=== PATIENT | male | born 1970 | race Caucasian/White ===

== ENCOUNTER → 2016-11-30 | Outpatient (REF) | payer MEDICARE, MEDICAID ==
[~2016-11-30] MED LIST: /FENO14TA PO; /FENO48TA PO; ABIL15TA PO; ABIL5TAB PO; BENZ2TA PO; BENZ5TA PO; DEPA250T32 PO; GLIP5TAB2 PO; GLYB5TAB5 PO; LEVEINJ SC; METF1000 PO; PROZ20CA11 PO
[2016-11-30 21:29] LABS: ALBUMIN 4.1 GM/DL (3.2-5.2); ALBUMIN/GLOBULIN RATIO 1.21 (1.00-1.93); ALKALINE PHOSPHATASE 102 U/L (45-117); ALT/SGPT 39 U/L (12-78); ANION GAP 10 MEQ/L (8-16); AST/SGOT 15 U/L (15-37); BILIRUBIN,TOTAL 0.9 MG/DL (0.2-1.0); BLOOD UREA NITROGEN 15 MG/DL (7-18); CARBON DIOXIDE LEVEL 28 MEQ/L (21-32); CHLORIDE LEVEL 101 MEQ/L (98-107); GLOMERULAR FILTRATION RATE > 60.0 (>60); GLUCOSE, FASTING 356 MG/DL (70-105); POTASSIUM SERUM 3.8 MEQ/L (3.5-5.1); SODIUM LEVEL 139 MEQ/L (136-145); TOTAL PROTEIN 7.5 GM/DL (6.4-8.2)
== END ==
LOC: M SFHCLERA 15:42
PROVIDERS: ATTEND Physician Assistant
DX: E11.9 Type 2 diabetes mellitus without complications (principal); Z13.220 Encounter for screening for lipoid disorders
CPT/HCPCS: 80053; 83036; G0463

== ENCOUNTER → 2017-01-05 | Outpatient (CLI) | payer MEDICARE, MEDICAID | LOC: M LRY 10:44 | PROVIDERS: ATTEND Physician Assistant | DX: M54.2 Cervicalgia (principal); Z53.8 Procedure and treatment not carried out for other reasons ==

== ENCOUNTER → 2017-01-05 | Outpatient (REF) | payer MEDICARE, MEDICAID | LOC: M SFHCLERA 11:12 | PROVIDERS: ATTEND Physician Assistant | DX: E11.9 Type 2 diabetes mellitus without complications (principal); Z13.220 Encounter for screening for lipoid disorders ==

== ENCOUNTER → 2017-01-25 | Outpatient (CLI) | payer MEDICARE, MEDICAID ==
[2017-01-25 10:29] LABS: ALBUMIN/GLOBULIN RATIO 1.18 (1.00-1.93); ALKALINE PHOSPHATASE 79 U/L (45-117); ALT/SGPT 32 U/L (12-78); ANION GAP 10 MEQ/L (8-16); AST/SGOT 17 U/L (15-37); BILIRUBIN,TOTAL 0.9 MG/DL (0.2-1.0); BLOOD UREA NITROGEN 16 MG/DL (7-18); CALCIUM LEVEL 8.5 MG/DL (8.5-10.1); CARBON DIOXIDE LEVEL 27 MEQ/L (21-32); CHLORIDE LEVEL 103 MEQ/L (98-107); CHOLESTEROL LEVEL 114 MG/DL (<200); CREATININE FOR GFR 1.07 MG/DL (0.70-1.30); GLOMERULAR FILTRATION RATE > 60.0 (>60); GLUCOSE, FASTING 269 MG/DL (70-105); SODIUM LEVEL 140 MEQ/L (136-145); TOTAL PROTEIN 7.4 GM/DL (6.4-8.2); TRIGLYCERIDES LEVEL 274 MG/DL (<150)
--- NOTE | 2017-01-25 10:35 | REP ---
CERVICAL SPINE, EIGHT VIEWS: HISTORY: Neck pain. There is no acute fracture or subluxation. The C5-6 intervertebral disc is decreased in height consistent with disc degeneration. Osteophytes are present on C2-6. There is narrowing of the C3 and 4 neural foramina secondary to uncinate process hypertrophy. IMPRESSION: Degenerative change as described above. Signed by Reginald Jean MD 01/25/2017 10:45 A
== END ==
LOC: M LAB 09:24
PROVIDERS: ATTEND Physician Assistant
DX: M50.90 Cervical disc disorder, unspecified, unspecified cervical region (principal); Z13.220 Encounter for screening for lipoid disorders; E11.9 Type 2 diabetes mellitus without complications

== ENCOUNTER → 2017-03-28 | Outpatient (REF) | payer MEDICARE, MEDICAID | LOC: M SFHCLERA 08:20 | PROVIDERS: ATTEND Physician Assistant | DX: E11.9 Type 2 diabetes mellitus without complications (principal) | CPT/HCPCS: 83036; G0463 ==

== ENCOUNTER → 2017-06-29 | Outpatient (REF) | payer MEDICARE, MEDICAID ==
[~2017-06-29] MED LIST changes: +FARX1TAB3; +FLON1SPR; +HUMA100I5; +LATU80TA; +LISI-542; +PANT40TA2; +ZYRT10TA2 PO
[2017-06-29 12:03] LABS: ALBUMIN/GLOBULIN RATIO 1.08 (1.00-1.93); ALKALINE PHOSPHATASE 66 U/L (45-117); ALT/SGPT 35 U/L (12-78); ANION GAP 10 MEQ/L (8-16); AST/SGOT 17 U/L (15-37); BILIRUBIN,TOTAL 0.9 MG/DL (0.2-1.0); BLOOD UREA NITROGEN 19 MG/DL (7-18); CALCIUM LEVEL 8.7 MG/DL (8.5-10.1); CARBON DIOXIDE LEVEL 27 MEQ/L (21-32); CHLORIDE LEVEL 106 MEQ/L (98-107); CREATININE FOR GFR 1.01 MG/DL (0.70-1.30); GLOMERULAR FILTRATION RATE > 60.0 (>60); GLUCOSE, FASTING 295 MG/DL (70-105); POTASSIUM SERUM 4.7 MEQ/L (3.5-5.1); SODIUM LEVEL 143 MEQ/L (136-145); TOTAL PROTEIN 7.7 GM/DL (6.4-8.2)
== END ==
LOC: M SFHCLERA 08:57
PROVIDERS: ATTEND Physician Assistant
DX: E11.9 Type 2 diabetes mellitus without complications (principal)
CPT/HCPCS: 80053; 83036; G0463

== ENCOUNTER 2017-09-09 18:47 | Emergency (ER) | payer MEDICARE, MEDICAID ==
[~2017-09-09] VITALS: Ht 172.7 cm; Wt 77.3 kg
[~2017-09-09 18:47] MED LIST changes: -FARX1TAB3; -FLON1SPR; -HUMA100I5; -LATU80TA; -LISI-542; -PANT40TA2; -ZYRT10TA2 PO
[2017-09-09] MEDS ORDERED: PANT40TA2 (19:22)
[2017-09-09] MEDS ORDERED: HUMA100I5 (19:22)
[2017-09-09] MEDS ORDERED: LATU80TA (19:22)
[2017-09-09] MEDS ORDERED: LISI-542 (19:22)
[2017-09-09] MEDS ORDERED: FARX1TAB3 (19:22)
[2017-09-09] MEDS ORDERED: ZYRT10TA2 PO (20:18)
[2017-09-09] MEDS ORDERED: FLON1SPR (20:18)
[2017-09-09 20:47] VITALS: BP 132/84
== END 2017-09-09 20:53 | disposition home or self-care (01) ==
LOC: M ED 18:47
DX: J30.9 Allergic rhinitis, unspecified (principal); E11.9 Type 2 diabetes mellitus without complications; Z79.899 Other long term (current) drug therapy; Z79.4 Long term (current) use of insulin

== ENCOUNTER → 2017-11-28 | Outpatient (CLI) | payer MEDICARE, MEDICAID ==
[2017-11-28 07:43] LABS: HEMATOCRIT 52.3 % (42.0-52.0); HEMOGLOBIN 18.7 g/dl (14.0-18.0); MEAN CORPUSCULAR HEMOGLOBIN 32.1 pg (27.0-33.0); MEAN CORPUSCULAR HGB CONC 35.8 g/dl (32.0-36.5); MEAN CORPUSCULAR VOLUME 89.7 fl (80.0-96.0); PLATELET COUNT, AUTOMATED 184 10^3/uL (150-450); RED BLOOD COUNT 5.83 10^6/uL (4.30-6.10); RED CELL DISTRIBUTION WIDTH 12.3 % (11.5-14.5); WHITE BLOOD COUNT 9.6 10^3/uL (4.0-10.0)
[2017-11-28 07:52] LABS: ALBUMIN 4.2 GM/DL (3.2-5.2); ALBUMIN/GLOBULIN RATIO 1.14 (1.00-1.93); ALKALINE PHOSPHATASE 95 U/L (45-117); ALT/SGPT 29 U/L (12-78); ANION GAP 10 MEQ/L (8-16); AST/SGOT 14 U/L (7-37); BILIRUBIN,TOTAL 0.7 MG/DL (0.2-1.0); BLOOD UREA NITROGEN 16 MG/DL (7-18); CALCIUM LEVEL 9.1 MG/DL (8.5-10.1); CARBON DIOXIDE LEVEL 26 MEQ/L (21-32); CHLORIDE LEVEL 104 MEQ/L (98-107); CHOLESTEROL LEVEL 134 MG/DL (<200); CHOLESTEROL RISK RATIO 2.851 (<5); CREATININE FOR GFR 1.06 MG/DL (0.70-1.30); GLOMERULAR FILTRATION RATE > 60.0 (>60); GLUCOSE, FASTING 335 MG/DL (70-105); HDL CHOLESTEROL 47 MG/DL (>40); NON-HDL-C 87 MG/DL; POTASSIUM SERUM 4.4 MEQ/L (3.5-5.1); SODIUM LEVEL 140 MEQ/L (136-145); TOTAL PROTEIN 7.9 GM/DL (6.4-8.2); TRIGLYCERIDES LEVEL 345 MG/DL (<150)
[2017-11-28 07:59] LABS: CREATININE, URINE 40.3 MG/DL
[2017-11-28 08:38] LABS: ESTIMATED AVERAGE GLUCOSE 260 MG/DL (60-110); HEMOGLOBIN A1c 10.7 %
== END ==
LOC: M LAB 06:55
DX: I10 Essential (primary) hypertension (principal); E11.9 Type 2 diabetes mellitus without complications; E78.2 Mixed hyperlipidemia
CPT/HCPCS: 80053

== ENCOUNTER 2018-01-13 08:43 | Emergency (ER) | payer MEDICARE, MEDICAID | END 2018-01-13 09:48 | disposition home or self-care (01) | LOC: M ED 08:43 | DX: J02.0 Streptococcal pharyngitis (principal); Z79.4 Long term (current) use of insulin; Z79.899 Other long term (current) drug therapy | CPT/HCPCS: 87880 ==

== ENCOUNTER → 2018-01-23 | Outpatient (CLI) | payer MEDICARE, MEDICAID ==
[2018-01-23 08:40] LABS: PSA SCREENING 7.58 NG/ML (< 4.0)
[2018-01-23 09:48] LABS: TOTAL 25(OH) VITAMIN D 12.8 NG/ML (30.0-100.0)
[2018-01-23 10:27] LABS: HEPATITIS C VIRUS ABY INDEX 0.2 INDEX (<0.8)
[2018-01-23 10:28] LABS: HIV 1&2 SCREEN CENTAUR NEGATIVE (NEGATIVE)
== END ==
LOC: M LAB 07:19
DX: Z00.00 Encounter for general adult medical examination without abnormal findings (principal)
CPT/HCPCS: 84443

== ENCOUNTER → 2018-03-11 | Outpatient (REF) | payer MEDICARE, MEDICAID ==
[2018-03-11 13:04] LABS: CREATININE, URINE 60.3 MG/DL; MALB URINE SIEMENS 74.3 MG/L; MAU/CREAT RATIO 123.2 MCG/MG (0.0-30.0)
[2018-03-11 15:22] LABS: ESTIMATED AVERAGE GLUCOSE 249 MG/DL (60-110); HEMOGLOBIN A1c 10.3 %
== END ==
LOC: M LAB REF 12:03
DX: E11.9 Type 2 diabetes mellitus without complications (principal)
CPT/HCPCS: 83036

== ENCOUNTER → 2018-04-09 | Outpatient (REF) | payer MEDICARE, MEDICAID ==
[2018-04-09 18:32] LABS: ANION GAP 6 MEQ/L (8-16); BLOOD UREA NITROGEN 17 MG/DL (7-18); CALCIUM LEVEL 8.4 MG/DL (8.5-10.1); CARBON DIOXIDE LEVEL 28 MEQ/L (21-32); CHLORIDE LEVEL 109 MEQ/L (98-107); CREATININE FOR GFR 0.85 MG/DL (0.70-1.30); GLOMERULAR FILTRATION RATE > 60.0 (>60); GLUCOSE, FASTING 170 MG/DL (70-100); SODIUM LEVEL 143 MEQ/L (136-145)
== END ==
LOC: M LAB REF 17:21
DX: E11.9 Type 2 diabetes mellitus without complications (principal)
CPT/HCPCS: 80048

== ENCOUNTER 2018-09-18 13:07 | Day surgery (SDC) | payer MEDICARE, MEDICAID ==
[2018-09-18] MEDS ORDERED: LIDOCAINE 2% INJ 100 MG/5 ML SDV (FOR ANES.) As Ordered (13:43)
[2018-09-18] MEDS ORDERED: PROPOFOL 200 MG/20 ML VIAL As Ordered (13:45)
[2018-09-18] MEDS ORDERED: fentaNYL 100 MCG/2 ML INJECTION (J3010) As Ordered (14:31)
[2018-09-18 14:33] LABS: BEDSIDE GLUCOSE 248 MG/DL (70-105)
[2018-09-18] MEDS ORDERED: HumaLOG INSULIN (NovoLOG) PER UNIT As Ordered (14:37)
[2018-09-18] MEDS: NS 1,000 ML IV (14:38)
[2018-09-18] MEDS ORDERED: HumaLOG INSULIN (NovoLOG) PER UNIT SC (15:00)
== END 2018-09-18 15:36 | disposition home or self-care (01) ==
LOC: M OPP 13:07
DX: R13.10 Dysphagia, unspecified (principal); E10.8 Type 1 diabetes mellitus with unspecified complications; F41.9 Anxiety disorder, unspecified; F32.9 Major depressive disorder, single episode, unspecified; N40.0 Benign prostatic hyperplasia without lower urinary tract symptoms; Z79.84 Long term (current) use of oral hypoglycemic drugs; Z90.49 Acquired absence of other specified parts of digestive tract
CPT/HCPCS: 43249

== ENCOUNTER 2018-11-04 19:03 | Emergency (ER) | payer MEDICARE, MEDICAID ==
[2018-11-04] MEDS: IBUPROFEN 600 MG TAB PO (22:24)
[2018-11-04] MEDS: AUGMENTIN 875 MG TAB PO (22:24)
== END 2018-11-04 22:29 | disposition home or self-care (01) ==
LOC: M ED 19:03
DX: K04.7 Periapical abscess without sinus (principal); E11.9 Type 2 diabetes mellitus without complications; I10 Essential (primary) hypertension; E78.9 Disorder of lipoprotein metabolism, unspecified; Z79.899 Other long term (current) drug therapy; Z79.82 Long term (current) use of aspirin; Z79.4 Long term (current) use of insulin; F17.210 Nicotine dependence, cigarettes, uncomplicated
CPT/HCPCS: 99283

== ENCOUNTER 2019-01-14 03:35 | Emergency (ER) | payer MEDICARE, MEDICAID ==
[~2019-01-14] VITALS: Ht 172.7 cm; Wt 77.3 kg
[~2019-01-14 03:35] MED LIST changes: +ASPI81TA85 PO; +AUGM875T28 PO; +FARX1TAB3; +FENO145T13 PO; +FLON1SPR; +HUMA100I5 SQ; +IBUP-1022 PO; +LATU1TAB; +LATU80TA; +LATU80TA PO; +LIDO1SOL7 PO; +LISI-542 PO; +PANT40TA3; +PENI500T PO; +TAMS1CAP17 PO; +TOUJ1.2I SQ; +TOUJ300I2 SC; +ZYRT10CA5 PO
[2019-01-14 03:36] VITALS: BP 140/81
[2019-01-14] MEDS ORDERED: TAMSULOSIN 0.4 MG CAP PO ONE (04:15)
[2019-01-14] MEDS ORDERED: NS 1,000 ML IV ONE (04:15)
[2019-01-14] MEDS ORDERED: KETOROLAC 30 MG/ML VIAL (J1885) IV ONE (04:15)
[2019-01-14] MEDS ORDERED: ONDANSETRON 4MG/2ML VIAL (J2405) As Ordered ONE (04:22)
[2019-01-14 04:26] LABS: BASO % 0.4 % (0.0-1.0); EOS # 0.1 10^3/uL (0.0-0.50); EOS % 1.1 % (0.0-3.0); HEMATOCRIT 50.1 % (42.0-52.0); HEMOGLOBIN 17.7 g/dl (13.5-17.5); LYMPH # 1.7 10^3/uL (1.5-4.5); LYMPH % 20.4 % (24.0-44.0); MEAN CORPUSCULAR HEMOGLOBIN 31.3 pg (27.0-33.0); MEAN CORPUSCULAR HGB CONC 35.3 g/dl (32.0-36.5); MEAN CORPUSCULAR VOLUME 88.7 fl (80.0-96.0); MONO # 0.6 10^3/uL (0.0-0.8); MONO % 7.2 % (0.0-5.0); NEUTROPHILS # 5.9 10^3/uL (1.8-7.7); NEUTROPHILS % 70.3 % (36.0-66.0); PLATELET COUNT, AUTOMATED 204 10^3/uL (150-450); RED BLOOD COUNT 5.65 10^6/uL (4.30-6.10); WHITE BLOOD COUNT 8.3 10^3/uL (4.0-10.0)
[2019-01-14 04:28] LABS: APPEARANCE, URINE CLEAR (CLEAR); BACTERIA, URINE AUTO NEGATIVE (NEGATIVE); BILIRUBIN, URINE AUTO NEGATIVE (NEGATIVE); BLOOD, URINE BLOOD NEGATIVE (NEGATIVE); COLOR, URINE STRAW (YELLOW); GLUCOSE, URINE (UA) AUTO 3+ mg/dL (NEGATIVE); KETONE, URINE AUTO NEGATIVE (NEGATIVE); LEUKOCYTE ESTERASE, URINE AUTO NEGATIVE (NEGATIVE); NITRITE, URINE AUTO NEGATIVE (NEGATIVE); PROTEIN, URINE AUTO NEGATIVE (NEGATIVE); RBC, URINE AUTO 0 /HPF (0-3); SPECIFIC GRAVITY URINE AUTO 1.028 (1.002-1.035); SQUAMOUS EPITHELIAL CELL UR AU 0 /HPF (0-6); UROBILINOGEN, URINE AUTO 0.2 mg/dL (0.0-2.0); WBC, URINE AUTO 0 /HPF (0-3)
[2019-01-14] MEDS ORDERED: ONDANSETRON 4MG/2ML VIAL (J2405) IV ONE (04:30)
[2019-01-14 04:43] LABS: ALBUMIN 3.9 GM/DL (3.2-5.2); ALT/SGPT 25 U/L (12-78); BILIRUBIN,DIRECT 0.2 MG/DL (0.0-0.2); BILIRUBIN,TOTAL 0.7 MG/DL (0.2-1.0); BLOOD UREA NITROGEN 28 MG/DL (7-18); CALCIUM LEVEL 8.6 MG/DL (8.5-10.1); CARBON DIOXIDE LEVEL 26 MEQ/L (21-32); CHLORIDE LEVEL 104 MEQ/L (98-107); CREATININE FOR GFR 1.19 MG/DL (0.70-1.30); GLOMERULAR FILTRATION RATE > 60.0 (>60); GLUCOSE, FASTING 330 MG/DL (70-100); LIPASE 109 U/L (73-393); POTASSIUM SERUM 4.1 MEQ/L (3.5-5.1); SODIUM LEVEL 138 MEQ/L (136-145); TOTAL PROTEIN 7.4 GM/DL (6.4-8.2)
--- NOTE | 2019-01-14 04:51 | REPVR ---
EXAM: CT Abdomen and Pelvis Without Contrast EXAM DATE/TIME: 01/14/2019 4:10 AM CLINICAL HISTORY: 48 years old, male; Abdominal pain; Generalized; Additional info: Left colic TECHNIQUE: Axial computed tomography images of the abdomen and pelvis without contrast. All CT scans at this facility use at least one of these dose optimization techniques: automated exposure control; mA and/or kV adjustment per patient size (includes targeted exams where dose is matched to clinical indication); or iterative reconstruction. Coronal and sagittal reformatted images were created and reviewed. COMPARISON: CT ABD PELVIS W/O CONTRAST 06/27/2012 1:36 PM The report from this study was not available for review at the time of this interpretation. FINDINGS: Lower thorax: Unremarkable. ABDOMEN: Liver: Unremarkable. No liver lesion is seen. The contour of the liver is smooth. No hepatomegaly is noted. Gallbladder and bile ducts: There has been a cholecystectomy. There is no fluid collection in the gallbladder fossa. No dilation of the bile ducts is noted. Pancreas: The pancreas is atrophic and otherwise unremarkable. No ductal dilation is noted. Spleen: Unremarkable. No splenomegaly. Adrenals: Normal. No mass. Kidneys and ureters: The kidneys are unremarkable. No renal lesion is identified. No calculi are seen in the kidneys or ureters. There is no hydronephrosis or hydroureter. Stomach and bowel: There is colonic diverticulosis without evidence for diverticulitis. There is no evidence for a bowel obstruction, colitis, pneumatosis intestinalis, intussusception, volvulus, or perforated viscus. Appendix: Normal. There is no evidence for appendicitis. PELVIS: Bladder: The distended urinary bladder is normal in appearance. No stones or masses are seen in the bladder. The contour of the bladder is normal. Reproductive: The prostate gland is enlarged and contains radiation seeds and calcifications. ABDOMEN and PELVIS: Intraperitoneal space: Normal. No free air. No fluid collection. Bones/joints: The imaged bony structures are intact. There is no suspicious osteolytic or osteoblastic lesion. There are degenerative changes in the lower thoracic spine and lumbar spine. There are degenerative changes of the sacroiliac joints. Soft tissues: There is a small fat containing umbilical hernia. Vasculature: No abdominal aortic aneurysm. Lymph nodes: Normal. No enlarged lymph nodes. IMPRESSION: 1. No acute findings in the abdomen or pelvis. No stones in the kidneys, ureters, or urinary bladder. No hydronephrosis or hydroureter. 2. Colonic diverticulosis without evidence for diverticulitis. 3. Enlarged prostate gland. 4. Small fat containing umbilical hernia. Electronically signed by: Nba Golver On 01/14/2019 04:50:26 AM
== END 2019-01-14 05:34 | disposition home or self-care (01) ==
LOC: M ED 03:35
DX: R10.9 Unspecified abdominal pain (principal); R11.0 Nausea; I10 Essential (primary) hypertension; E11.9 Type 2 diabetes mellitus without complications; Z79.899 Other long term (current) drug therapy; Z79.4 Long term (current) use of insulin; Z79.82 Long term (current) use of aspirin
CPT/HCPCS: 74176; 80048; 80076; 81001; 83690; 85025; 87086; 96374; 96375; 99283; J1885; J2405

== ENCOUNTER → 2019-01-21 | Outpatient (REF) | payer MEDICARE, MEDICAID ==
[2019-01-25 00:07] LABS: C-PEPTIDE 4.1 ng/mL (1.1-4.4)
== END ==
LOC: M LABDRAW1 15:22
PROVIDERS: ATTEND Internal Medicine Endocrinology, Diabetes & Metabolism
DX: E11.65 Type 2 diabetes mellitus with hyperglycemia (principal)

== ENCOUNTER 2019-05-25 21:33 | Emergency (ER) | payer MEDICARE, MEDICAID ==
[~2019-05-25] VITALS: Ht 172.7 cm; Wt 72.7 kg
[~2019-05-25 21:33] MED LIST changes: -/FENO14TA PO; -/FENO48TA PO; -BENZ2TA PO; +BENZ2TAB33 PO; -LIDO1SOL7 PO; +LIDO1SOL8 PO; +TRIC145T19 PO; +TRIC1TAB PO
[2019-05-25 21:35] VITALS: BP 111/72
[2019-05-25] MEDS ORDERED: ACET-683 PO (21:40)
[2019-05-25] MEDS ORDERED: TOUJ1.2I (21:40)
[2019-05-25] MEDS ORDERED: HUMALOG (21:40)
[2019-05-25] MEDS ORDERED: KETOROLAC 60 MG/2 ML VIAL (J1885) IM ONE (22:15)
== END 2019-05-25 22:41 | disposition home or self-care (01) ==
LOC: M ED 21:33
DX: G56.10 Other lesions of median nerve, unspecified upper limb (principal); E11.9 Type 2 diabetes mellitus without complications; F43.10 Post-traumatic stress disorder, unspecified; Z79.4 Long term (current) use of insulin; Z79.899 Other long term (current) drug therapy
CPT/HCPCS: 96372; 99283; J1885

== ENCOUNTER 2019-10-26 12:13 | Emergency (ER) | payer MEDICARE, MEDICAID ==
[~2019-10-26] VITALS: Ht 172.7 cm; Wt 81.8 kg
[~2019-10-26 12:13] MED LIST changes: +ACET-683 PO; +HUMALOG; +TOUJ1.2I
[2019-10-26 12:14] VITALS: BP 133/89
[2019-10-26] MEDS ORDERED: AFRI0.058 (12:41)
[2019-10-26] MEDS ORDERED: FLON1SPR NARES (12:42)
== END 2019-10-26 12:50 | disposition home or self-care (01) ==
LOC: M ED 12:46
DX: J01.90 Acute sinusitis, unspecified (principal); E11.9 Type 2 diabetes mellitus without complications; Z79.4 Long term (current) use of insulin

== ENCOUNTER 2020-02-17 08:50 | Emergency (ER) | payer MEDICARE, MEDICAID ==
[~2020-02-17] VITALS: Ht 172.7 cm; Wt 78.9 kg
[~2020-02-17 08:50] MED LIST changes: +AFRI0.058; -FENO145T13 PO; +FENO145T7 PO; +FLON1SPR NARES; -LIDO1SOL8 PO; +LIDO2SOL17 PO
[2020-02-17] MEDS ORDERED: HUMA100I5 (08:59)
[2020-02-17] MEDS ORDERED: ATOR1TAB21 (08:59)
[2020-02-17] MEDS ORDERED: ONDANSETRON 4 MG ORAL DISINTEGRATING TAB (Q0162 PER 1MG) PO ONE (09:30)
[2020-02-17] MEDS ORDERED: KETOROLAC TROMETHAMINE 10 MG TAB PO ONE (09:30)
[2020-02-17 09:45] LABS: BASO % 0.3 % (0.0-1.0); EOS # 0.1 10^3/uL (0.0-0.5); EOS % 1.2 % (0.0-3.0); HEMATOCRIT 52.7 % (42.0-52.0); HEMOGLOBIN 18.5 g/dl (13.5-17.5); LYMPH # 1.7 10^3/uL (1.5-5.0); LYMPH % 18.9 % (24.0-44.0); MEAN CORPUSCULAR HEMOGLOBIN 31.4 pg (27.0-33.0); MEAN CORPUSCULAR HGB CONC 35.1 g/dl (32.0-36.5); MEAN CORPUSCULAR VOLUME 89.3 fl (80.0-96.0); MONO # 0.6 10^3/uL (0.0-0.8); MONO % 6.2 % (0.0-5.0); NEUTROPHILS # 6.6 10^3/uL (1.5-8.5); NEUTROPHILS % 72.8 % (36.0-66.0); PLATELET COUNT, AUTOMATED 174 10^3/uL (150-450); WHITE BLOOD COUNT 9.1 10^3/uL (4.0-10.0)
[2020-02-17 10:13] LABS: ALBUMIN 4.1 GM/DL (3.2-5.2); BILIRUBIN,DIRECT 0.2 MG/DL (0.0-0.2); BILIRUBIN,TOTAL 0.7 MG/DL (0.2-1.0)
[2020-02-17] MEDS ORDERED: CYCL5TAB PO (10:32)
[2020-02-17] MEDS ORDERED: NAPR-885 PO (10:32)
[2020-02-17 10:38] VITALS: BP 124/71
== END 2020-02-17 10:41 | disposition home or self-care (01) ==
LOC: M ED 08:50
DX: E11.9 Type 2 diabetes mellitus without complications (principal); L02.222 Furuncle of back [any part, except buttock and flank]; G89.29 Other chronic pain; M54.6 Pain in thoracic spine; E78.5 Hyperlipidemia, unspecified; F33.9 Major depressive disorder, recurrent, unspecified; F41.9 Anxiety disorder, unspecified; K21.9 Gastro-esophageal reflux disease without esophagitis; Z79.899 Other long term (current) drug therapy; Z79.4 Long term (current) use of insulin
CPT/HCPCS: 36415; 80047; 80076; 81001; 83690; 85025; 99284; Q0162

== ENCOUNTER → 2020-03-29 | Outpatient (CLI) | payer MEDICARE, MEDICAID ==
[~2020-03-29] MED LIST changes: +ATOR1TAB21; +CYCL5TAB PO; +HUMA100I5 SC; +LATU1TAB PO; +NAPR-885 PO; -TOUJ1.2I; +TOUJ1.2I SC
== END ==
LOC: M LABSMTC 11:12
PROVIDERS: ATTEND Anesthesiology
DX: Z01.818 Encounter for other preprocedural examination (principal); Z11.59 Encounter for screening for other viral diseases
CPT/HCPCS: C9803; U0002

== ENCOUNTER 2020-03-31 07:39 | Day surgery (SDC) | payer MEDICARE, MEDICAID ==
[~2020-03-31] VITALS: Ht 172.7 cm; Wt 79.8 kg
[~2020-03-31 07:39] MED LIST changes: +NS 1,000 ML IV ONE
[2020-03-31] MEDS ORDERED: LIDOCAINE 2% 100MG/5ML SDV (FOR ANES.) As Ordered ONE (08:55)
[2020-03-31] MEDS ORDERED: propofoL 200 MG/20 ML VIAL As Ordered ONE ×2 (08:55→09:31)
--- NOTE | 2020-03-31 09:17 | ROOR ---
Patient Name: Greg David Procedure Date: 03/31/2020 8:57 AM Date of : 1970 Age: 49 Room: [facility] Gender: Male Note Status: Finalized Procedure: Upper Endoscopy + Biopsies + Dilatation Indications: Dysphagia Providers: Casey Spaulding MD Referring MD: Glory BRANDT MD Requesting Provider: Medicines: Monitored Anesthesia Care Complications: No immediate complications. Procedure: Pre-Anesthesia Assessment: - The heart rate, respiratory rate, oxygen saturations, blood pressure, adequacy of pulmonary ventilation, and response to care were monitored throughout the procedure. The Endoscope was introduced through the mouth, and advanced to the second part of duodenum. The upper GI endoscopy was accomplished without difficulty. The patient tolerated the procedure well. Findings: The Z-line was regular and was found 40 cm from the incisors. Multiple biopsies were obtained with cold forceps for evaluation to rule out Cancino's Esophagus randomly at the gastroesophageal junction. A TTS dilator was passed through the scope. Dilation with a 15-16.5-18 mm balloon dilator was performed to 18 mm in the entire esophagus. No other significant abnormalities were identified in a careful examination of the stomach. The exam of the duodenum was otherwise normal. Impression: - Z-line regular, 40 cm from the incisors. - Multiple biopsies were obtained at the gastroesophageal junction. - Dilation performed in the entire esophagus. - The examination was otherwise normal. Recommendation: - Patient has a contact number available for emergencies. The signs and symptoms of potential delayed complications were discussed with the patient. Return to normal activities tomorrow. Written discharge instructions were provided to the patient. - High fiber diet. - Discharge patient to home. - Continue present medications. - Await pathology results. - Telephone GI clinic for pathology results in 1 week. - Return to referring physician. - Repeat upper endoscopy for surveillance based on pathology results. - Return to referring physician. - The findings and recommendations were discussed with the patient's family. Casey Spaulding MD Casey Spaulding MD 03/31/2020 9:16:39 AM Electronically signed by Casey Spaulding MD Number of Addenda: 0 Note Initiated On: 03/31/2020 8:57 AM Estimated Blood Loss: Estimated blood loss: none.
--- NOTE | 2020-03-31 09:33 | ROOR ---
Patient Name: Greg David Procedure Date: 03/31/2020 8:58 AM Date of : 1970 Age: 49 Room: [facility] Gender: Male Note Status: Finalized Procedure: Total Colonoscopy to Cecum Indications: Screening for colorectal malignant neoplasm Providers: Casey Spaulding MD Referring MD: Glory BRANDT MD Requesting Provider: Medicines: Monitored Anesthesia Care Complications: No immediate complications. Procedure: Pre-Anesthesia Assessment: - The heart rate, respiratory rate, oxygen saturations, blood pressure, adequacy of pulmonary ventilation, and response to care were monitored throughout the procedure. The Colonoscope was introduced through the anus and advanced to the cecum, identified by appendiceal orifice and ileocecal valve. The colonoscopy was performed without difficulty. The patient tolerated the procedure well. The quality of the bowel preparation was excellent. Findings: The perianal and digital rectal examinations were normal. Non-bleeding internal hemorrhoids were found during retroflexion. The hemorrhoids were small and Grade I (internal hemorrhoids that do not prolapse). No other significant abnormalities were identified in a careful examination of the remainder of the colon. The exam was otherwise without abnormality on direct and retroflexion views. Impression: - Non-bleeding internal hemorrhoids. - The examination was otherwise normal on direct and retroflexion views. - No specimens collected. - The exam was otherwise normal to the cecum. Recommendation: - Patient has a contact number available for emergencies. The signs and symptoms of potential delayed complications were discussed with the patient. Return to normal activities tomorrow. Written discharge instructions were provided to the patient. - High fiber diet. - Discharge patient to home. - Continue present medications. - Repeat colonoscopy in 10 years for screening purposes. - Return to referring physician. - The findings and recommendations were discussed with the patient's family. Casey Spaulding MD Casey Spaulding MD 03/31/2020 9:33:13 AM Electronically signed by Casey Spaulding MD Number of Addenda: 0 Note Initiated On: 03/31/2020 8:58 AM Estimated Blood Loss: Estimated blood loss: none.
[2020-03-31 10:10] VITALS: BP 118/69
== END 2020-03-31 10:10 | disposition home or self-care (01) ==
LOC: M OPP 07:39
PROVIDERS: ATTEND Internal Medicine Gastroenterology
DX: Z12.11 Encounter for screening for malignant neoplasm of colon (principal); K64.0 First degree hemorrhoids; R13.10 Dysphagia, unspecified; E11.9 Type 2 diabetes mellitus without complications; Z79.4 Long term (current) use of insulin; Z79.82 Long term (current) use of aspirin; Z79.899 Other long term (current) drug therapy; Z87.438 Personal history of other diseases of male genital organs; Z12.5 Encounter for screening for malignant neoplasm of prostate
CPT/HCPCS: 43249; 88305; G0102

== ENCOUNTER 2020-09-27 23:05 | Emergency (ER) | payer MEDICARE, MEDICAID ==
[~2020-09-27] VITALS: Ht 172.7 cm; Wt 72.7 kg
[~2020-09-27 23:05] MED LIST changes: -ASPI81TA85 PO; +ASPI81TA86 PO; -NS 1,000 ML IV ONE; +PANT40TA29; -PANT40TA3
[2020-09-27] MEDS ORDERED: ATOR1TAB21 (23:16)
[2020-09-28 00:21] LABS: BASO % 0.3 % (0.0-1.0); EOS # 0.1 10^3/uL (0.0-0.5); EOS % 0.9 % (0.0-3.0); HEMATOCRIT 48.7 % (42.0-52.0); HEMOGLOBIN 17.5 g/dl (13.5-17.5); LYMPH # 2.1 10^3/uL (1.5-5.0); LYMPH % 18.4 % (24.0-44.0); MEAN CORPUSCULAR HEMOGLOBIN 31.7 pg (27.0-33.0); MEAN CORPUSCULAR HGB CONC 35.9 g/dl (32.0-36.5); MEAN CORPUSCULAR VOLUME 88.2 fl (80.0-96.0); MONO # 0.7 10^3/uL (0.0-0.8); MONO % 5.9 % (0.0-5.0); NEUTROPHILS # 8.5 10^3/uL (1.5-8.5); NEUTROPHILS % 73.5 % (36.0-66.0); PLATELET COUNT, AUTOMATED 181 10^3/uL (150-450); RED BLOOD COUNT 5.52 10^6/uL (4.30-6.10); WHITE BLOOD COUNT 11.6 10^3/uL (4.0-10.0)
[2020-09-28 00:46] LABS: ALBUMIN 3.8 GM/DL (3.2-5.2); ALT/SGPT 31 U/L (12-78); BILIRUBIN,DIRECT 0.2 MG/DL (0.0-0.2); BILIRUBIN,TOTAL 0.7 MG/DL (0.2-1.0); BLOOD UREA NITROGEN 18 MG/DL (7-18); CARBON DIOXIDE LEVEL 24 MEQ/L (21-32); CHLORIDE LEVEL 104 MEQ/L (98-107); CK-MB VALUE MASS 5.9 NG/ML (<3.6); CPK CREATINE PHOSPHOKINASE 132 U/L (39-308); CREATININE FOR GFR 1.01 MG/DL (0.70-1.30); GLOMERULAR FILTRATION RATE > 60.0 (>56); GLUCOSE, FASTING 287 MG/DL (70-100); LIPASE 196 U/L (73-393); MB/CK RELATIVE INDEX 4.47 (< OR =4); POTASSIUM SERUM 3.5 MEQ/L (3.5-5.1); SODIUM LEVEL 135 MEQ/L (136-145); TOTAL PROTEIN 7.9 GM/DL (6.4-8.2); TROPONIN I < 0.02 NG/ML (< 0.10)
[2020-09-28] MEDS ORDERED: ASPIRIN 81 MG CHEW TABLET PO ONE (01:15)
[2020-09-28] MEDS ORDERED: NS 1,000 ML IV ONE (01:15)
[2020-09-28 01:33] LABS: INR 0.96
[2020-09-28 01:34] LABS: PARTIAL THROMBOPLASTIN TIME 26.8 SECONDS (24.2-38.5)
--- NOTE | 2020-09-28 02:37 | REPVR ---
PROCEDURE INFORMATION: Exam: XR Chest, 2 Views Exam date and time: 09/28/20 (1:38am) Age: 49 years old Clinical indication: Chest pain, chest tightness TECHNIQUE: Imaging protocol: XR of the chest Views: 2 views COMPARISON: No relevant prior studies available FINDINGS: Lungs: Unremarkable. No consolidation. Pleural space: Unremarkable. No pleural effusions. No pneumothorax. Heart/Mediastinum: Unremarkable. No cardiomegaly. Bones/joints: Unremarkable. IMPRESSION: No acute findings. Clear lung sandoval. Electronically signed by: Rhoda Mcdonnell On 09/28/2020 02:37:31 AM
[2020-09-28 03:25] LABS: HEMOGLOBIN A1c 11.4 %
[2020-09-28 03:28] LABS: ACETONE/KETONE 8.28 MG/DL (<2.81); FREE T4 1.16 NG/DL (0.76-1.46)
[2020-09-28 04:03] LABS: CK-MB VALUE MASS 4.9 NG/ML (<3.6); CPK CREATINE PHOSPHOKINASE 97 U/L (39-308); MB/CK RELATIVE INDEX 5.05 (< OR =4); TROPONIN I < 0.02 NG/ML (< 0.10)
[2020-09-28 04:15] VITALS: BP 122/77
[2020-09-28] MEDS ORDERED: JANU25TA PO (04:16)
--- NOTE | 2020-09-28 09:01 | ECGEPIP ---
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
--- NOTE | 2020-09-28 14:27 | ECGEPIP ---
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
== END 2020-09-28 04:43 | disposition home or self-care (01) ==
LOC: M ED 23:05
DX: R07.89 Other chest pain (principal); R11.2 Nausea with vomiting, unspecified; E11.9 Type 2 diabetes mellitus without complications; E78.5 Hyperlipidemia, unspecified; K21.9 Gastro-esophageal reflux disease without esophagitis; F31.9 Bipolar disorder, unspecified; F43.10 Post-traumatic stress disorder, unspecified; Z79.899 Other long term (current) drug therapy; Z79.82 Long term (current) use of aspirin; Z79.4 Long term (current) use of insulin

== ENCOUNTER 2021-01-14 20:03 | Emergency (ER) | payer MEDICARE, MEDICAID ==
[~2021-01-14] VITALS: Ht 172.7 cm; Wt 72.7 kg
[~2021-01-14 20:03] MED LIST changes: +JANU25TA PO; -LISI-542 PO; +LISI-898 PO
--- OUTSIDE RECORDS SUMMARY | 2021-01-14 20:08 | CCD ---
Author Author [facility] Organization [facility] Address Unknown Phone Unavailable Care Team Providers Care Branch Credit Counselor Name Role Phone Anna Spaulding MD Unavailable Unavailable Anna Spaulding MD Unavailable Unavailable Anna Spaulding MD Unavailable Unavailable Anna Spaulding MD Unavailable Unavailable Anna Spaulding MD Unavailable Unavailable Anna Spaulding MD Unavailable Unavailable Anna Spaulding MD Unavailable Unavailable Anna Spaulding MD Unavailable Unavailable Anna Spaulding MD Unavailable Unavailable Anna Spaulding MD Unavailable Unavailable Anna Spaulding MD Unavailable Unavailable Anna Spaulding MD Unavailable Unavailable Anna Spaulding MD Unavailable Unavailable Anna Spaulding MD Unavailable Unavailable Anna Spaulding MD Unavailable Unavailable Anna Spaulding MD Unavailable Unavailable Anna Spaulding MD Unavailable Unavailable Anna Spaulding MD Unavailable Unavailable Anna Spaulding MD Unavailable Unavailable Anna Spaulding MD Unavailable Unavailable Anna Spaulding MD Unavailable Unavailable Anna Spaulding MD Unavailable Unavailable Anna Spaulding MD Unavailable Unavailable Anna Spaulding MD Unavailable Unavailable Anna Spaulding MD Unavailable Unavailable Anna Spaulding MD Unavailable Unavailable Anna Spaulding MD Unavailable Unavailable Anna Spaulding MD Unavailable Unavailable Anna Spaulding MD Unavailable Unavailable Anna Spaulding MD Unavailable Unavailable Anna Spaulding MD Unavailable Unavailable Anna Spaulding MD Unavailable Unavailable Anna Spaulding MD Unavailable Unavailable Anna Spaulding MD Unavailable Unavailable Anna Spaulding MD Unavailable Unavailable Anna Spaulding MD Unavailable Unavailable Anna Spaulding MD Unavailable Unavailable Anna Spaulding MD Unavailable Unavailable Anna Spaulding MD Unavailable Unavailable Anna Spaulding MD Unavailable Unavailable Anna Spaulding MD Unavailable Unavailable Anna Spaulding MD Unavailable Unavailable Anna Spaulding MD Unavailable Unavailable Anna Spaulding MD Unavailable Unavailable Anna Spaulding MD Unavailable Unavailable Anna Spaulding MD Unavailable Unavailable Anna Spaulding MD Unavailable Unavailable Anna Spaulding MD Unavailable Unavailable Anna Spaulding MD Unavailable Unavailable Anna Spaulding MD Unavailable Unavailable Lo Abad MHC Unavailable Unavailable James Abadisten MHC Unavailable Unavailable Scordo, M Jana PA Unavailable Unavailable Scordo, M Jana PA Unavailable Unavailable Scordo, M Jana PA Unavailable Unavailable Scordo, M Jana PA Unavailable Unavailable Scordo, M Jana PA Unavailable Unavailable Scordo, M Jana PA Unavailable Unavailable Scordo, M Jana PA Unavailable Unavailable Scordo, M Jana PA Unavailable Unavailable Scordo, M Jana PA Unavailable Unavailable Scordo, M Jana PA Unavailable Unavailable Scordo, M Jana PA Unavailable Unavailable Scordo, M Jana PA Unavailable Unavailable Scordo, M Jana PA Unavailable Unavailable Scordo, M Jana PA Unavailable Unavailable Scordo, M Jana PA Unavailable Unavailable Scordo, M Jana PA Unavailable Unavailable Scordo, M Jana PA Unavailable Unavailable Scordo, M Jana PA Unavailable Unavailable Scordo, M Jana PA Unavailable Unavailable Scordo, M Jana PA Unavailable Unavailable Scordo, M Jana PA Unavailable Unavailable Scordo, M Jana PA Unavailable Unavailable Scordo, M Jana PA Unavailable Unavailable Scordo, M Jana PA Unavailable Unavailable Scordo, M Jana PA Unavailable Unavailable Scordo, M Jana PA Unavailable Unavailable Scordo, M Jana PA Unavailable Unavailable Scordo, M Jana PA Unavailable Unavailable Scordo, M Jana PA Unavailable Unavailable Scordo, M Jana PA Unavailable Unavailable Scordo, M Jana PA Unavailable Unavailable Scordo, M Jana PA Unavailable Unavailable Scordo, M Jana PA Unavailable Unavailable Scordo, M Jana PA Unavailable Unavailable Scordo, M Jana PA Unavailable Unavailable Scordo, M Jana PA Unavailable Unavailable Scordo, M Jana PA Unavailable Unavailable Scordo, M Jana PA Unavailable Unavailable Scordo, M Jana PA Unavailable Unavailable Scordo, M Jana PA Unavailable Unavailable Scordo, M Jana PA Unavailable Unavailable Scordo, M Jana PA Unavailable Unavailable Scordo, M Jana PA Unavailable Unavailable Bakari YAN MD Unavailable Unavailable Bakari YAN MD Unavailable Unavailable Bakari YAN MD Unavailable Unavailable Bakari YAN MD Unavailable Unavailable Bakari YAN MD Unavailable Unavailable Bakari YAN MD Unavailable Unavailable Bakari YAN MD Unavailable Unavailable Bakari YAN MD Unavailable Unavailable Bakari YAN MD Unavailable Unavailable Bakari YAN MD Unavailable Unavailable Bakari YAN MD Unavailable Unavailable Bakari YAN MD Unavailable Unavailable Bakari YAN MD Unavailable Unavailable Bakari YAN MD Unavailable Unavailable Bakari YAN MD Unavailable Unavailable Bakari YAN MD Unavailable Unavailable Bakari YAN MD Unavailable Unavailable Bakari YAN MD Unavailable Unavailable Bakari YAN MD Unavailable Unavailable Bakari YAN MD Unavailable Unavailable OBEN, T ELISE MD Unavailable Unavailable OBEN, T ELISE MD Unavailable Unavailable OBEN, T ELISE MD Unavailable Unavailable OBEN, T ELISE MD Unavailable Unavailable OBEN, T ELISE MD Unavailable Unavailable OBEN, T ELISE MD Unavailable Unavailable OBEN, T ELISE MD Unavailable Unavailable OBEN, T ELISE MD Unavailable Unavailable OBEN, T ELISE MD Unavailable Unavailable OBEN, T ELISE MD Unavailable Unavailable OBEN, T ELISE MD Unavailable Unavailable OBEN, T ELISE MD Unavailable Unavailable OBEN, T ELISE MD Unavailable Unavailable OBEN, T ELISE MD Unavailable Unavailable OBEN, T ELISE MD Unavailable Unavailable OBEN, T ELISE MD Unavailable Unavailable OBEN, T ELISE MD Unavailable Unavailable OBEN, T ELISE MD Unavailable Unavailable OBEN, T ELISE MD Unavailable Unavailable OBEN, T ELISE MD Unavailable Unavailable OBEN, T ELISE MD Unavailable Unavailable OBEN, T ELISE MD Unavailable Unavailable OBEN, T ELISE MD Unavailable Unavailable OBEN, T ELISE MD Unavailable Unavailable OBEN, T ELISE MD Unavailable Unavailable OBEN, T ELISE MD Unavailable Unavailable OBEN, T ELISE MD Unavailable Unavailable OBEN, T ELISE MD Unavailable Unavailable OBEN, T ELISE MD Unavailable Unavailable OBEN, T ELISE MD Unavailable Unavailable OBEN, T ELISE MD Unavailable Unavailable OBEN, T ELISE MD Unavailable Unavailable OBEN, T ELISE MD Unavailable Unavailable OBEN, T ELISE MD Unavailable Unavailable OBEN, T ELISE MD Unavailable Unavailable OBEN, T ELISE MD Unavailable Unavailable OBEN, T ELISE MD Unavailable Unavailable OBEN, T ELISE MD Unavailable Unavailable OBEN, T ELISE MD Unavailable Unavailable OBEN, T ELISE MD Unavailable Unavailable OBEN, T ELISE MD Unavailable Unavailable OBEN, T ELISE MD Unavailable Unavailable OBEN, T ELISE MD Unavailable Unavailable OBEN, T ELISE MD Unavailable Unavailable OBEN, T ELISE MD Unavailable Unavailable OBEN, T ELISE MD Unavailable Unavailable OBEN, T ELISE MD Unavailable Unavailable OBEN, T ELISE MD Unavailable Unavailable OBEN, T ELISE MD Unavailable Unavailable OBEN, T ELISE MD Unavailable Unavailable OBEN, T ELISE MD Unavailable Unavailable OBEN, T ELISE MD Unavailable Unavailable OBEN, T ELISE MD Unavailable Unavailable OBEN, T EILSE MD Unavailable Unavailable OBEN, T ELISE MD Unavailable Unavailable OBEN, T ELISE MD Unavailable Unavailable OBEN, T ELISE MD Unavailable Unavailable OBEN, T ELISE MD Unavailable Unavailable OBEN, T ELISE MD Unavailable Unavailable OBEN, T ELISE MD Unavailable Unavailable OBEN, T ELISE MD Unavailable Unavailable OBEN, T ELISE MD Unavailable Unavailable OBEN, T ELISE MD Unavailable Unavailable OBEN, T ELISE MD Unavailable Unavailable OBEN, T ELISE MD Unavailable Unavailable OBEN, T ELISE MD Unavailable Unavailable OBEN, T ELISE MD Unavailable Unavailable OBEN, T ELISE MD Unavailable Unavailable OBEN, T ELISE MD Unavailable Unavailable OBEN, T ELISE MD Unavailable Unavailable OBEN, T ELISE MD Unavailable Unavailable OBEN, T ELISE MD Unavailable Unavailable OBEN, T ELISE MD Unavailable Unavailable OBEN, T ELISE MD Unavailable Unavailable OBEN, T ELISE MD Unavailable Unavailable OBEN, T ELISE MD Unavailable Unavailable OBEN, T ELISE MD Unavailable Unavailable OBEN, T ELISE MD Unavailable Unavailable OBEN, T ELISE MD Unavailable Unavailable OBEN, T ELISE MD Unavailable Unavailable OBEN, T ELISE MD Unavailable Unavailable OBEN, T ELISE MD Unavailable Unavailable OBEN, T ELISE MD Unavailable Unavailable OBEN, T ELISE MD Unavailable Unavailable OBEN, T ELISE MD Unavailable Unavailable OBEN, T ELISE MD Unavailable Unavailable PARNES, Z SEME MD Unavailable Unavailable PARNES, Z ESME MD Unavailable Unavailable PARNES, Z ESME MD Unavailable Unavailable PARNES, Z ESME MD Unavailable Unavailable PARNES, Z ESME MD Unavailable Unavailable PARNES, Z ESME MD Unavailable Unavailable PARNES, Z ESME MD Unavailable Unavailable PARNES, Z ESME MD Unavailable Unavailable PARNES, Z ESME MD Unavailable Unavailable PARNES, Z ESME MD Unavailable Unavailable PARNES, Z ESME MD Unavailable Unavailable PARNES, Z ESME MD Unavailable Unavailable PARNES, Z ESME MD Unavailable Unavailable PARNES, Z ESME MD Unavailable Unavailable PARNES, Z ESME MD Unavailable Unavailable PARNES, Z ESME MD Unavailable Unavailable PARNES, Z ESME MD Unavailable Unavailable PARNES, Z ESME MD Unavailable Unavailable PARNES, Z ESME MD Unavailable Unavailable PARNES, Z ESME MD Unavailable Unavailable PARNES, Z ESME MD Unavailable Unavailable PARNES, Z ESME MD Unavailable Unavailable PARNES, Z ESME MD Unavailable Unavailable PARNES, Z ESME MD Unavailable Unavailable PARNES, Z ESME MD Unavailable Unavailable PARNES, Z ESME MD Unavailable Unavailable PARNES, Z ESME MD Unavailable Unavailable PARNES, Z ESME MD Unavailable Unavailable PARNES, Z ESME MD Unavailable Unavailable PARNES, Z ESME MD Unavailable Unavailable PARNES, Z ESME MD Unavailable Unavailable PARNES, Z ESME MD Unavailable Unavailable PARNES, Z ESME MD Unavailable Unavailable PARNES, Z ESME MD Unavailable Unavailable PARNES, Z ESME MD Unavailable Unavailable PARNES, Z ESME MD Unavailable Unavailable PARNES, Z ESME MD Unavailable Unavailable PARNES, Z ESME MD Unavailable Unavailable Kunnumpurath, F Glory MD Unavailable Unavailable Kunnumpurath, F Glory MD Unavailable Unavailable [place], F Glory MD Unavailable Unavailable [place], F Glory MD Unavailable Unavailable [place], F Glory MD Unavailable Unavailable [place], F Glory MD Unavailable Unavailable [place], F Glory MD Unavailable Unavailable [place], F Glory MD Unavailable Unavailable [place]ath, F Glory MD Unavailable Unavailable [place]ath, F Glory MD Unavailable Unavailable K[place]ath, F Glory MD Unavailable Unavailable Kunnumpurath, F Glory MD Unavailable Unavailable Kunn[place]ath, F Glory MD Unavailable Unavailable Kunn[place]ath, F Glory MD Unavailable Unavailable Kunn[place]urath, F Glory MD Unavailable Unavailable Kunnumpurath, F Glory MD Unavailable Unavailable Kunn[place]ath, F Glory MD Unavailable Unavailable Kunn[place]ath, F Glory MD Unavailable Unavailable Kunnumpurath, F Glory MD Unavailable Unavailable Kunnumpurath, F Golry MD Unavailable Unavailable Kunnumpurath, F Glory MD Unavailable Unavailable Kunnumpurath, F Glory MD Unavailable Unavailable Kunnump[place]ath, F Glory MD Unavailable Unavailable Kunnumpurath, F Glory MD Unavailable Unavailable Kunnumpurath, F Glory MD Unavailable Unavailable Kunnump[place]ath, F Glory MD Unavailable Unavailable Kunn[place]ath, F Glory MD Unavailable Unavailable Kunn[place]ath, F Glory MD Unavailable Unavailable Kunn[place]ath, F Glory MD Unavailable Unavailable Kunn[place]ath, F Glory MD Unavailable Unavailable Kunn[place]ath, F Glory MD Unavailable Unavailable Kunnumpurath, F Glory MD Unavailable Unavailable Kunn[place]urath, F Glory MD Unavailable Unavailable Kunnumpurath, F Glory MD Unavailable Unavailable Kunn[place]urath, F Glory MD Unavailable Unavailable Kunnumpurath, F Glory MD Unavailable Unavailable Kunn[place]ath, F Glory MD Unavailable Unavailable Kunnumpurath, F Glory MD Unavailable Unavailable Kunnumpurath, F Glory MD Unavailable Unavailable Kunnumpurath, F Glory MD Unavailable Unavailable Kunnumpurath, F Glory MD Unavailable Unavailable Kunn[place]urath, F Glory MD Unavailable Unavailable Kunn[place]urath, F Glory MD Unavailable Unavailable Kunn[place]ath, F Glory MD Unavailable Unavailable Kunn[place]urath, F Glory MD Unavailable Unavailable Kunn[place]urath, F Glory MD Unavailable Unavailable K[place]ath, F Glory MD Unavailable Unavailable [place]urath, F Glory MD Unavailable Unavailable Kunn[place]urath, F Glory MD Unavailable Unavailable Kunn[place]ath, F Glory MD Unavailable Unavailable K[place]ath, F Glory MD Unavailable Unavailable Kunn[place]urath, F Glory MD Unavailable Unavailable Kunn[place]ath, F Glory MD Unavailable Unavailable Kunn[place]urath, F Glory MD Unavailable Unavailable [place]ath, F Glory MD Unavailable Unavailable [place]ath, F Glory MD Unavailable Unavailable Kunn[place]urath, F Glory MD Unavailable Unavailable Kunnumpurath, F Glory MD Unavailable Unavailable Kunn[place]urath, F Glory MD Unavailable Unavailable [place]ath, F Glory MD Unavailable Unavailable [place]ath, F Glory MD Unavailable Unavailable K[place]ath, F Glory MD Unavailable Unavailable Kunn[place]urath, F Glory MD Unavailable Unavailable [place]urath, F Glory MD Unavailable Unavailable [place]ath, F Glory MD Unavailable Unavailable [place]urath, F Glory MD Unavailable Unavailable [place]urath, F Glory MD Unavailable Unavailable [place], F Glory MD Unavailable Unavailable [place]urath, F Glory MD Unavailable Unavailable [place], F Glory MD Unavailable Unavailable [place], F Glory MD Unavailable Unavailable [place], F Glory MD Unavailable Unavailable [place], F Glory MD Unavailable Unavailable [place], F Glory MD Unavailable Unavailable Kunnumpurath, F Glory MORALES Unavailable Unavailable Kunnumpurath, F Glory MORALES Unavailable Unavailable Kunnumpurath, F Glory MORALES Unavailable Unavailable Kunnumpurath, F Glory MORALES Unavailable Unavailable Juan Francisco, Sandra CONSUMER ADVOCATE CONSUMER ADVOCATE Unavailable Unavailable Juan Francisco, A Sandra CONSUMER ADVOCATE Unavailable Unavailable Juan Francisco, A Sandra CONSUMER ADVOCATE Unavailable Unavailable Juan Francisco, A Sandra CONSUMER ADVOCATE Unavailable Unavailable Juan Francisco, A Sandra CONSUMER ADVOCATE Unavailable Unavailable Juan Francisco, A Sandra CONSUMER ADVOCATE Unavailable Unavailable Juan Francisco, A Sandra CONSUMER ADVOCATE Unavailable Unavailable Juan Francisco, A Sandra CONSUMER ADVOCATE Unavailable Unavailable Juan Francisco, A Sandra CONSUMER ADVOCATE Unavailable Unavailable Juan Francisco, A Sandra CONSUMER ADVOCATE Unavailable Unavailable Juan Francisco, A Sandra CONSUMER ADVOCATE Unavailable Unavailable Juan Francisco, A Sandra CONSUMER ADVOCATE Unavailable Unavailable Juan Francisco, A Sandra CONSUMER ADVOCATE Unavailable Unavailable Juan Francisco, A Sandra CONSUMER ADVOCATE Unavailable Unavailable Juan Francisco, A Sandra CONSUMER ADVOCATE Unavailable Unavailable Juan Francisco, A Sandra CONSUMER ADVOCATE Unavailable Unavailable Juan Francisco, A Sandra CONSUMER ADVOCATE Unavailable Unavailable Juan Francisco, A Sandra CONSUMER ADVOCATE Unavailable Unavailable Juan Francisco, A Sandra CONSUMER ADVOCATE Unavailable Unavailable Juan Francisco, A Sandra CONSUMER ADVOCATE Unavailable Unavailable Juan Francisco, A Sandra CONSUMER ADVOCATE Unavailable Unavailable Juan Francisco, A Sandra CONSUMER ADVOCATE Unavailable Unavailable Juan Francisco, A Sandra CONSUMER ADVOCATE Unavailable Unavailable Juan Francisco, A Sandra CONSUMER ADVOCATE Unavailable Unavailable Juan Francisco, A Sandra CONSUMER ADVOCATE Unavailable Unavailable Juan Francisco, A Sandra CONSUMER ADVOCATE Unavailable Unavailable Juan Francisco, A Sandra CONSUMER ADVOCATE Unavailable Unavailable Juan Francisco, A Sandra CONSUMER ADVOCATE Unavailable Unavailable Juan Francisco, A Sandra CONSUMER ADVOCATE Unavailable Unavailable Re-disclosure Warning The records that you are about to access may contain information from federally-assisted alcohol or drug abuse programs. If such information is present, then the following federally mandated warning applies: This information has been disclosed to you from records protected by federal confidentiality rules (42 CFR part 2). The federal rules prohibit you from making any further disclosure of this information unless further disclosure is expressly permitted by the written consent of the person to whom it pertains or as otherwise permitted by 42 CFR part 2. A general authorization for the release of medical or other information is NOT sufficient for this purpose. The Federal rules restrict any use of the information to criminally investigate or prosecute any alcohol or drug abuse patient.The records that you are about to access may contain highly sensitive health information, the redisclosure of which is protected by Article 27-F of the [facility] Public Health law. If you continue you may have access to information: Regarding HIV / AIDS; Provided by facilities licensed or operated by the [facility] Office of Mental Health; or Provided by the [facility] Office for People With Developmental Disabilities. If such information is present, then the following [facility] mandated warning applies: This information has been disclosed to you from confidential records which are protected by state law. State law prohibits you from making any further disclosure of this information without the specific written consent of the person to whom it pertains, or as otherwise permitted by law. Any unauthorized further disclosure in violation of state law may result in a fine or skilled nursing sentence or both. A general authorization for the release of medical or other information is NOT sufficient authorization for further disc losure. Allergies and Adverse Reactions Type Description Substance Reaction Status Data Source(s ) No Known Drug Allergies No Known Drug Allergies [facility] No Known Food Allergies No Known Food Allergies [facility] ENVIRONMENTAL seasonal seasonal [facility] Family History Family Member Name Family Member Gender Family Member Status Date o f Status Description Data Source(s) Unknown Male Problem [facility] ([facility] ) Unknown Male Problem [facility] ([facility]) Unknown Male Problem [facility] ([facility]) () Unknown Male Problem MED[facility] ([facility]) () Unknown Female Problem [facility] ([facility] Encounters Encounter Providers Location Date Indications Data Source(s ) [facility]: [facility]32:01 A M EST [facility] JACINDA PayneC: [address] [place] [id number], Ph. Attender: Jana GALLARDO - [facility] Medical 09/30/2020 12:00:00 AM EST [facility] ([facility]) Outpatient Attender: Casey Spaulding MD Main Office 03/16/2020 11:30:00 AM EDT [facility] ([facility]) Outpatient Attender: Sandra DHALIWAL 02/18/2020 11:4 9:01 AM EDT [facility] Outpatient Attender: Glory Fischer MDConsultant: Glory hopkins MD 12/24/2019 09:27:00 AM EST - 12/24/2019 09:27:00 AM EST [facility] Outpatient Attender: Glory Fischer MD 0 12/16/2019 07:59:00 AM EST - 12/16/2019 07:59:00 AM EST [facility] Outpatient Attender: Glory Fischer MD Family Practice 0 12/16/2019 07:00:00 AM EST [facility] Out[facility] Attender: ELISE YAN MDConsultant: Glory castillo MD 12/03/2019 08:58:00 AM EST - 12/03/2019 08:58:00 AM EST [facility] Outpatient Attender: ELISE YAN MD Family Practice 12/03/2019 08:15:0 0 AM EST [facility] ([facility]) Outpatient Attender: Lo Abad MHCConsultant: Glory gotti MD 10/28/2019 09:48:00 AM EST - 10/28/2019 09:48:00 AM EST [facility] Outpatient Attender: ESME STYLES MDConsultant: Glory ann MD 10/15/2018 01:14:32 PM EST - 10/15/2018 01:13:00 PM EST [facility] Immunizations Vaccine Date Status Description Data Source(s) Tdap 12/16/2019 07:37:00 AM EST completed M EDENT ([facility]) Medications Medication Brand Name Start Date Product Form Dose Route Admi nistrative Instructions Pharmacy Instructions Status Indications Reaction Description Data Source(s) Suprep Bowel Prep Kit Suprep Bowel Prep Kit 03/16/2020 12:00:00 AM EDT active MEDENT ([facility]) atorvastatin 20 MG Oral Tablet Atorvastatin Calcium 12/16/2019 1 2:00:00 AM EST active MED[facility] ( [facility]) 0.5 ML dulaglutide 1.5 MG/ML Auto-Injector [Trulicity] [facility] 12/16/2019 12:00:00 AM EST active M [facility]ENT ([facility]) Alprostadil 0.04 MG/ML Injectable Solution [Caverject] Josh [facility]ect 12/03/2019 12:00:00 AM EST active M EDENT ([facility]) OneTouch Verio test strips U UTD TO TEST TID [id number] completed OneTouch Verio test strips [facility] ([facility]) atorvastatin 20 MG Oral Tablet atorvastatin 20 mg tabl et TK 1 T PO QD atorvastatin 20 mg tablet TK 1 T PO QD completed atorvastatin 20 MG Oral Tablet [facility] ([facility]) Cyclobenzaprine hydrochloride 5 MG Oral Tablet cyclobenzaprine 5 mg tablet TK 1 T PO TID PRN FOR MUSCLE SPASMS cyclobenzaprine 5 mg tablet TK 1 T PO TI D PRN FOR MUSCLE SPASMS completed cyclobenzaprine hydrochloride 5 MG Oral Tablet [facility] ([facility]) Naproxen 500 MG Oral Tablet naproxen 500 mg tablet TK 1 T PO BID P naproxen 500 mg tablet TK 1 T PO BID P completed naproxen 500 MG Oral Tablet [facility] ([facility]) 0.5 ML dulaglutide 1.5 MG/ML Auto-Inject or [Trulicity] Trulicity 0.75 mg/0.5 mL subcutaneous pen injector Trulicity 0.75 mg/0.5 mL subcutaneous pen injector completed 0.5 ML dulaglu tide 1.5 MG/ML Auto-Injector [Trulicity] SHILOH ([facility]) Suprep Bowel Prep Kit 17.5 gram-3.13 gram-1.6 gram ora l solution MX AND DRK UTD [id number] completed Suprep Bowel Prep Kit 17.5 gram-3.13 gram-1.6 gram oral solution [facility]ESSA ([facility]) 1.5 ML Insulin Glargine 300 UNT/ML Pen I njector [Toujeo] Toujeo SoloStar U-300 Insulin 300 unit/mL (1.5 mL) subcutaneous pen INJECT 35 UNITS UNDER THE SKIN IN THE MORNING AND 45 UNITS IN THE EVENING Toujeo SoloStar U-300 Insulin 300 unit/mL (1.5 mL) subcutaneous pen INJECT 35 UNITS UNDER THE SKIN IN THE MORNING AND 45 UNITS IN THE EVENING completed 1.5 ML insulin glargine 300 UNT/ML Pen Injector [Toujeo] [facility] 3 ML Insulin Lispro 100 UNT/ML Pen Injec tor [Humalog] Humalog KwikPen (U-100) Insulin 100 unit/mL subcutaneous Humalog KwikPen (U-100) Insulin 100 unit /mL subcutaneous completed 3 ML insulin lispro 100 UNT/ML Pen Injector [Humalog] [facility] ([facility] Insurance Providers Payer name Policy type / Coverage type Policy ID Covered democrat ID Covered democrat's relationship to cortes Policy Cortes Plan Information EMEDNY [id number] SP [id number] MEDICARE [id number] SP [id number] Medicare P [id number] S [id number] A Medicaid S [id number] S [id number] MEDICAID [id number] SP [id number] MED[place]ID [place] [id number] MEDICAID [id number] MEDICARE PART A [facility] [id number] 18 [id number] MEDICARE PART A -O/P MC [id number] MEDICAID -PHYSICIAN [id number] MEDICARE CO [id number] Medicare P [id number] S [id number] MEDICAID -RECURRING [id number] 1 [id number] MEDICARE -RECURRING MC [id number] 18 [id number] MEDICAID -O/P [id number] MEDICAID [facility] [id number] MEDICARE PART A [facility] [id number] 18 [id number] Medicare Commercial [id number] Self [id number] Medicaid Commercial [id number] Self [id number] U [place] Part A [place] [id number] Self [id number] Medicaid Commercial [id number] Self [id number] Medicare Commercial [id number] Self [id number] Medicaid Commercial [id number] Self [id number] [place] [id number] Self [id number] Medicaid Commercial [id number] Self [id number] BH Medicare Commercial [id number] Self [id number] BH Medicaid Commercial [id number] Self [id number] Medicare [place] [id number] Self [id number] Medicaid Commercial [id number] Self [id number] Medicare Dme Medigap Part B [id number] Self [id number] Medicaid Medicaid [id number] Self [id number] Medicare Medicare Primary [id number] Self [id number] Medicare Dme Medigap Part B [id number] Self [id number] Medicaid Medicaid [id number] Self [id number] Medicare Medicare Primary [id number] Self 9 [id number] Medicare Dme Medigap Part B [id number] Self [id number] Medicaid Medicaid [id number] Self [id number] Medicare Medicare Primary [id number] Self 9 [id number] [place] [id number] Self [id number] [place] [id number] Self [id number] BH Medicaid Commercial [id number] Self [id number] [place] Medicare Commercial [id number] Self [id number] Medicaid Commercial [id number] Self [id number] [place] [id number] Self [id number] [place] [id number] Self [id number] [place] Primary [id number] Self [id number] BH Medicare Commercial [id number] Self [id number] BH Medicaid Commercial [id number] Self [id number] [place] Medicaid Commercial [id number] Self [id number] [place] [id number] Self [id number] BH Medicare Commercial [id number] Self [id number] BH Medicaid Commercial [id number] Self [id number] U Medicaid Commercial [id number] Self [id number] [place] [id number] Self [id number] Medicare Commercial [id number] Self [id number] Medicaid Commercial [id number] Self [id number] U Medicaid Commercial [id number] Self [id number] [place] [id number] Self [id number] Medicare Commercial [id number] Self [id number] Medicaid Commercial [id number] Self [id number] U Medicaid Commercial [id number] Self [id number] [place] [id number] Self [id number] Medicaid [facility] Medicaid [id number] Self A [id number] [place] [id number] Self [id number] Medicaid [facility] Medicaid [id number] Self A [id number] [place] [id number] Self [id number] Medicaid [facility] Medicaid [id number] Self A [id number] [place] [id number] Self [id number] Medicaid [facility] Medicaid [id number] Self A [id number] [place] [id number] Self [id number] Medicaid [facility] Medicaid [id number] Self A [id number] [place] [id number] Self [id number] Medicaid [facility] Medicaid [id number] Self A [id number] [place] [id number] Self [id number] Medicaid [facility] Medicaid [id number] Self A [id number] [place] [id number] Self [id number] MEDICARE [id number] SP [id number] [place] Medigap [place] [id number] Self [id number] Medicare [facility] Medicare Primary [id number] Self [id number] Medicaid [facility] Medicaid [id number] Self A [id number] [place] [id number] Self [id number] MEDICARE PART A -O/P [id number] 18 [id number] Medicaid [facility] Medicaid [id number] Self A [id number] [place] [id number] Self [id number] Medicaid [facility] Medicaid [id number] Self A [id number] [place] [id number] Self [id number] Medicaid [facility] Medicaid [id number] Self A [id number] [place] [id number] Self [id number] Medicaid [facility] Medicaid [id number] Self A [id number] [place] Primary [id number] Self [id number] Medicaid [facility] Medicaid [id number] Self A [id number] [place] Primary [id number] Self [id number] MEDICAID M [id number] Self [id number] MEDICARE A [id number] Self [id number] A Medicaid [facility] Medicaid [id number] Self A [id number] [place] Primary [id number] Self [id number] Medicaid [facility] Medicaid [id number] Self A [id number] [place] Primary [id number] Self [id number] Medicare Dme Medigap Part B [id number] Self 1 [id number] Medicaid Medicaid [id number] Self [id number] Medicare Medicare Primary [id number] Self 10 [id number] Medicaid S [id number] S [id number] Medicare Dme Medigap Part B [id number] Self 1 [id number] Medicaid Medicaid [id number] Self [id number] Medicare Medicare Primary [id number] Self 10 [id number] Medicare Dme Medigap Part B [id number] Self 1 [id number] Medicaid Medicaid [id number] Self [id number] Medicare Medicare Primary [id number] Self [id number] Medicare Dme Medigap Part B [id number] Self 1 [id number] Medicaid Medicaid [id number] Self [id number] Medicare Medicare Primary [id number] Self 10 [id number] Medicare Dme Medigap Part B [id number] Self 1 [id number] Medicaid Medicaid [id number] Self [id number] Medicare Medicare Primary [id number] Self 10 [id number] Medicare Dme Medigap Part B [id number] Self 1 [id number] Medicaid Medicaid [id number] Self [id number] Medicare Medicare Primary [id number] Self 10 [id number] Medicaid Medicaid Self Medicare Medicare Primary Self HMO BLUE [id number] SP [id number] BLUE CROSS SAAVEDRA PLAN [id number] SP [id number] MEDICAID S [id number] S [id number] MEDICARE P [id number] S [id number] A HMO BLUE [id number] SP [id number] [facility] PLUS [id number] SP [id number] HEALTH WELF[employer] BENEFIT SYS [id number] SP [id number] Problems, Conditions, and Diagnoses Code Display Name Description Problem Type Effective Dates Data Source(s) 867681274 Finding of urine substance level Finding of Urin e Substance Level Problem 01/09/2018 12:00:00 AM EST - 09/30/2020 12:00:00 AM JENNIFER MENDEZ ([facility]) [id number] SNOMED CT Concept SNOMED CT Concept Problem 02/02 12:00:00 AM EDT - 09/30/2020 12:00:00 AM KAREEM MENDEZ ([facility]) [id number] Procedure by method Procedure by Method Problem 0 02/03/2016 12:00:00 AM EDT - 09/30/2020 12:00:00 AM KAREEM MENDEZ ([facility]) [id number] Difficulty passing urine Difficulty Passing Urine Prob allan 02/03/2016 12:00:00 AM EDT - 09/30/2020 12:00:00 AM KAREEM MENDEZ ([facility]) R1310 Dysphagia, unspecified Dysphagia, unspecified Diagnosi s 12/16/2019 07:59:00 AM [facility] F418 Other specified anxiety disorders Other specifie d anxiety disorders Diagnosis 12/16/2019 07:59:00 AM [facility] Z23 Encounter for immunization Encounter for immunization Diagnosis 12/16/2019 07:59:00 AM [facility] E119 Type 2 diabetes mellitus without complic ations Type 2 diabetes mellitus without complications Diagnosis 12/16/2019 07:59:00 AM [facility] N401 Benign prostatic hyperplasia with lower urinary tract symptoms Benign prostatic hyperplasia with lower urinary tract symptoms Diagnosis 12/03/2019 08:58:00 AM [facility] N529 Male erectile dysfunction, unspecified M lily erectile dysfunction, unspecified Diagnosis 12/03/2019 08:58:00 AM [facility] Surgeries/Procedures Procedure Description Date Indications Data Source(s) Endoscopy Upper GI Dilate Gastric Outlet For Obstruction 03/31/2020 12:00:00 AM EDT [facility] ([facility] ) COLONOSCOPY FLX DX W/WO COLLJ SPECIMENS 03/31/2020 12: 00:00 AM EDT [facility] ([facility]) UPPER NDSC BIOPSY SINGLE/MULTIPLE 03/31/2020 12:00:00 AM EDT [facility] ([facility]) Results ID Date Data Source [id number] 03/31/2020 09:09:00 AM EDT [facility] ([facility]) Name Value Range Interpretation Code Description Data Sandra rce(s) Supporting Document(s) Surgical pathology study Laboratory test result [facility] ([facility]) FINAL DIAGNOSIS Esophagus, below Z line, biopsy: Squamocolumnar junctional mucosa with chronic inflammation and foveolar hyperplasia. No intestinal metaplasia is seen. 04/01/2020 - 141 CLINICAL DIAGNOSIS Dysphagia and screening 03/31/2020 - 153 GROSS DIAGNOSIS Received in formalin labeled "biopsy below Z line, R/O Cancino's" consists of a fragment of tissue, 0.3 x 0.2 x 0.1 cm in aggregate. All in one. -OA 03/31/2020 - 153 Signed AIYANA GORDON MD 04/01/20201412 ID Date Data Source [id number] 12/24/2019 01:21:00 PM [facility] Name Value Range Interpretation Code Description Data Sandra rce(s) Supporting Document(s) [facility] Cholesterol [Mass/volume] in Serum or Plasma 121 MG/DL 131 - 200 L [facility] Deprecated Triglyceride [Mass/volume] in Serum or Plasma 141 MG/DL 3 5 - 160 [facility] HDL 46 MG/DL 29 - 86 [facility] Cholesterol in LDL/Cholesterol in HDL [Mass Ratio] in Serum or Plasma 62 mg/dL 65 - 175 L [facility] Cholesterol.total/Cholesterol in HDL [Mass Ratio] in Serum o r Plasma 2.6 3.4 - 4.9 L [facility] LDL/HDL 1.35 1.00 - 3.55 [facility] CVE RISK CHOL/HDL LDL/HDLMEN: 1/2 AVERAGE 3.43 1.00 AVERAGE 4.97 3.55 2X AVERAGE 9.55 6.25 3X AVERAGE 23.99 7.99WOMEN: 1/2 AVERAGE 3.27 1.47 AVERAGE 4.44 3.22 2X AVERAGE 7.05 5.03 3X AVERAGE 11.04 6.14 ID Date Data Source [id number] 12/24/2019 01:21:00 PM EST [facility] Name Value Range Interpretation Code Description Data Sandra rce(s) Supporting Document(s) COMPREHENSIVE METABOLIC PANEL [facility] COMPREHENSIVE METABOLIC PANEL Sodium [Moles/volume] in Serum or Plasma 138 mEq/L 134 - 153 [facility] Potassium [Moles/volume] in Serum or Plasma 4.2 mEq/L 3.6 - 5.0 [facility] Chloride [Moles/volume] in Serum or Plasma 102 mEq/L 98 - 107 [facility] Carbon dioxide, total [Moles/volume] in Serum or Plasma 24 MEQ/L 22 - 30 [facility] Glucose [Mass/volume] in Serum or Plasma 273 MG/DL 65 - 110 H [facility] BUN 22 MG/DL 7 - 21 [facility] Creatinine [Mass/volume] in Serum or Plasma 0.9 MG/DL 0.7 - 1.5 [facility] BUN/CREAT 24 8 - 27 [facility] al Protein [Mass/volume] in Serum or Plasma 7.3 G/DL 6.3 - 8.2 [facility] Albumin [Mass/volume] in Serum or Plasma 4.5 G/DL 3.9 - 5.0 [facility] Globulin [Mass/volume] in Serum by calculation 2.8 GM/DL 2.4 - 3.2 [facility] A/G RATIO 1.6 0.8 - 2.0 [facility] Calcium [Mass/volume] in Serum or Plasma 9.7 MG/DL 8.4 - 10.2 [facility] Bilirubin.total [Mass/volume] in Serum or Plasma 0.8 MG/DL 0.2 - 1.3 [facility] Alkaline phosphatase [Enzymatic activity/volume] in Serum or Plasma 76 U/L 38 - 126 [facility] Aspartate aminotransferase [Enzymatic activity/volume] in Serum or Plasma 14 U/L 5 - 40 [facility] Alanine aminotransferase [Enzymatic activity/volume] in Seru m or Plasma 18 U/L 7 - 56 [facility] Anion gap 3 in Serum or Plasma 12.0 mmol/L 8.0 - 16.0 [facility] AGE 49 yrs [facility] NON-AA GFR >60 mL/min [facility] ital AFR AMER GFR >60 mL/min [facility] spital Male GFR In terprentation 20-49 yrs >60 mL/min Normal 50-59 yrs >56 mL/min Normal 60-69 yrs >49 mL/min Normal 70-79yrs >42 mL/min Normal 80 and above >35 mL/min Normal Female GFR Interpretation 20-39 yrs >60 mL/min Normal 40-49 yrs >58 mL/min Normal 50-59 yrs >51 mL/min Normal 60-69 yrs >45 mL/min Normal 70-79 yrs >39 mL/min Normal 80 and above >32 mL/min Normal ID Date Data Source [id number] 12/24/2019 01:21:00 PM [facility] Name Value Range Interpretation Code Description Data Sandra e(s) Supporting Document(s) Hemoglobin A1c/Hemoglobin.total in Blood 10.4 % 4.4 - 6.1 H [facility] {A1]{HB] ID Date Data Source [id number] 12/24/2019 01:04:00 PM [facility] Name Value Range Interpretation Code Description Data Sandra rce(s) Supporting Document(s) CBC NO DIFF [facility] COMPLETE BLOOD COUNT Leukocytes [#/volume] in Blood by Automated count 6.8 10^3/uL 4.2 - 1 1.0 [facility] Erythrocytes [#/volume] in Blood by Automated count 5.51 10^6/uL 4. 50 - 6.30 [facility] Hemoglobin [Mass/volume] in Blood 17.3 g/dL 14.0 - 16.0 H [facility] Hematocrit [Volume Fraction] of Blood by Automated count 49.9 % 4 1.0 - 51.0 [facility] Erythrocyte mean corpuscular volume [Entitic volume] by Auto mated count 90.6 fL 80.0 - 94.0 [facility] Erythrocyte mean corpuscular hemoglobin [Entitic mass] by Automated count 31.4 pg 27.0 - 34.0 [facility] Erythrocyte mean corpuscular hemoglobin concentration [Mass/volume] by Automated count 34.7 g/dL 31.0 - 36.0 [facility] Erythrocyte distribution width [Ratio] by Automated count 13.1 % 11.5 - 14.8 [facility] Platelets [#/volume] in Blood by Automated count 175 10^3/uL 150 - 45 0 [facility] Platelet mean volume [Entitic volume] in Blood by Automated count 10.8 fL 7.4 - 10.4 H [facility] ID Date Data Source [id number] 12/03/2019 09:56:00 AM EST [facility] ([facility]) Name Value Range Interpretation Code Description Data Sandra rce(s) Supporting Document(s) Microscopic observation [Identifier] in Unspecified specimen by Non- gynecological cytology method <pending> [facility] ([facility]) ID Date Data Source [id number] 12/03/2019 09:17:00 AM EST [facility] ([facility]) Name Value Range Interpretation Code Description Data Sandra rce(s) Supporting Document(s) Color of Urine yellow [facility] ([facility]) Spec [place] 1.015 [facility] ([facility]) Appearance of Urine clear [facility] ([facility]) pH of Urine by Test strip 5 MEDE NT ([facility]) Leukocytes neg [facility] ([facility]) Protein [Presence] in Urine by Test strip neg [facility] ([facility]) Inhouse Glucose 500 [facility] ([facility]) Nitrate [Presence] in Urine neg ME DENT ([facility]) Ketones [Presence] in Urine by Test strip neg [facility] ([facility]) Urobilinogen norm [facility] ([facility]) Bilirubin.total [Presence] in Urine by Test strip neg [facility] ([facility]) Blood type and Indirect antibody screen panel - Blood neg [facility] ([facility]) Procedure Vital Signs ID Date Data Source UNK Name Value Range Interpretation Code Description Data Source(s) Body weight 2710 [oz_av] 2710 [oz_av] [facility] ([facility]) Systolic blood pressure 130 mm[Hg] 130 mm[Hg] A THENA ([facility]) Body mass index (BMI) [Ratio] 25.8 kg/m2 25.8 k g/m2 [facility] ([facility]) Body height 68 [in_i] 68 [in_i] SHILOH ([facility]) Diastolic blood pressure 82 mm[Hg] 82 mm[Hg] SH[facility]OH ([facility]) Body weight 79.834 kg 79.834 kg [facility] ([facility]) Body mass index (BMI) [Ratio] 26.0 kg/m2 26.0 k g/m2 [facility] ([facility]) Heart rate 87 /min 87 /min [facility] ([facility]) Diastolic blood pressure 89 mm[Hg] 89 mm[Hg] [facility] ([facility]) Systolic blood pressure 137 mm[Hg] 137 mm[Hg] M EDENT ([facility]) Body weight 176.00 [lb_av] 176.00 [lb_av] MEDEN T ([facility]) Body height 69 [in_i] 69 [in_i] [facility] ([facility]) 5'9" Body surface area 1.94 m2 1.94 m2 [facility] ([facility]) Body mass index (BMI) [Ratio] 26.9 kg/m2 26.9 k g/m2 [facility] ([facility]) Body height 68 [in_i] 68 [in_i] [facility] ([facility]) 5'8" Body weight 80.401 kg 80.401 kg [facility] ([facility]) Body weight 177.25 [lb_av] 177.25 [lb_av] MEDEN T ([facility]) Oxygen saturation in Arterial blood by Pulse oximetry 98 % 98 % [facility] ([facility]) Respiratory rate 16 /min 16 /min [facility] ( [facility]) Body temperature 97.4 [degF] 97.4 [degF] [facility] ([facility]) Heart rate 76 /min 76 /min [facility] ([facility]) Diastolic blood pressure 76 mm[Hg] 76 mm[Hg] [facility] ([facility]) Systolic blood pressure 120 mm[Hg] 120 mm[Hg] [facility] Body surface area 1.93 m2 1.93 m2 [facility] ([facility]) Body mass index (BMI) [Ratio] 26.6 kg/m2 26.6 k g/m2 [facility] ([facility]) Body height 68 [in_i] 68 [in_i] [facility] ([facility]) 5'8" Body weight 79.380 kg 79.380 kg [facility] ([facility]) Body weight 175.00 [lb_av] 175.00 [lb_av] MED[facility] T ([facility]) Oxygen saturation in Arterial blood by Pulse oximetry 97 % 97 % [facility] ([facility]) Respiratory rate 19 /min 19 /min [facility] ( [facility]) Body temperature 97.1 [degF] 97.1 [degF] [facility] ([facility]) Heart rate 87 /min 87 /min [facility] ([facility]) Diastolic blood pressure 84 mm[Hg] 84 mm[Hg] [facility] ([facility]) Systolic blood pressure 128 mm[Hg] 128 mm[Hg] [facility] ([facility]) Patient Treatment Plan of Care Planned Activity Planned Date Details Description Data Source (s) 0.5 ML dulaglutide 1.5 MG/ML Auto-Injector [Trulicity] [facility]) 1.5 ML Insulin Glargine 300 UNT/ML Pen Injector [Toujeo] [facility] ([facility]) Suprep Bowel Prep Kit 17.5 gram-3.13 gram-1.6 gram ora l solution MX AND DRK UTD [facility] ([facility]) OneTouch Verio test strips U UTD TO TEST TID [facility]SA ([facility]) Naproxen 500 MG Oral Tablet [facility] ([facility]) 3 ML Insulin Lispro 100 UNT/ML Pen Injector [Humalog] [facility] ([facility]) Cyclobenzaprine hydrochloride 5 MG Oral Tablet [facility] ([facility]) atorvastatin 20 MG Oral Tablet [facility] ([facility])
[2021-01-14] MEDS ORDERED: LIDOCAINE 5% (LIDODERM) PATCH TD ONE (21:25)
--- NOTE | 2021-01-14 22:01 | REPVR ---
PROCEDURE INFORMATION: Exam: XR Left Shoulder Exam date and time: 01/14/2021 9:07 PM Age: 50 years old Clinical indication: Other: Pain TECHNIQUE: Imaging protocol: XR Left shoulder. Views: 2 or more views. COMPARISON: MRI-Shoulder W/O CONTRAST 07/11/2014 8:33 AM FINDINGS: Bones/joints: Joint spaces are normal. No fracture or malalignment. Soft tissues: Normal. IMPRESSION: No fracture or malalignment. Electronically signed by: Primitivo Ziegler On 01/14/2021 22:01:55 PM
--- OUTSIDE RECORDS SUMMARY | 2021-01-14 22:06 | CCD ---
Author Author [facility] Organization [facility] Address Unknown Phone Unavailable Care Team Providers Care Dial Printer Name Role Phone Anna Spaulding MD Unavailable [...] Unavailable Unavailable Lo Abad MHC Unavailable Unavailable Lo Abad MHC Unavailable Unavailable Scordo, M Jana PA [...] T ELISE MD Unavailable Unavailable PARNES, Z ESME MD [...] Glory MD Unavailable Unavailable Kunnumpurath, F Glory Unavailable Unavailable Kunnumpurath, F Glory Unavailable Unavailable Kunnumpurath, F Glory MD Unavailable Unavailable Kunnumpurath, F Glory MD Unavailable Unavailable Juan Francisco, Sandra BOWLING ALLEY REFINISHER BOWLING ALLEY REFINISHER Unavailable Unavailable Juan Francisco, A Sandra BOWLING ALLEY REFINISHER Unavailable Unavailable Juan Francisco, A Sandra BOWLING ALLEY REFINISHER Unavailable Unavailable Juan Francisco, A Sandra BOWLING ALLEY REFINISHER Unavailable Unavailable Juan Francisco, A Sandra BOWLING ALLEY REFINISHER Unavailable Unavailable Juan Francisco, A Sanrda BOWLING ALLEY REFINISHER Unavailable Unavailable Juan Francisco, A Sandra BOWLING ALLEY REFINISHER Unavailable Unavailable Juan Francisco, A Sandra BOWLING ALLEY REFINISHER Unavailable Unavailable Juan Francisco, A Sandra BOWLING ALLEY REFINISHER Unavailable Unavailable Juan Francisco, A Sandra BOWLING ALLEY REFINISHER Unavailable Unavailable Juan Francisco, A Sandra BOWLING ALLEY REFINISHER Unavailable Unavailable Juan Francisco, A Sandra BOWLING ALLEY REFINISHER Unavailable Unavailable Juan Francisco, A Sandra BOWLING ALLEY REFINISHER Unavailable Unavailable Juan Francisco, A Sandra BOWLING ALLEY REFINISHER Unavailable Unavailable Juan Francisco, A Sandra BOWLING ALLEY REFINISHER Unavailable Unavailable Juan Francisco, A Sandra BOWLING ALLEY REFINISHER Unavailable Unavailable Juan Francisco, A Sandra BOWLING ALLEY REFINISHER Unavailable Unavailable Juan Francisco, A Sandra BOWLING ALLEY REFINISHER Unavailable Unavailable Juan Francisco, A Sandra BOWLING ALLEY REFINISHER Unavailable Unavailable Juan Francisco, A Sandra BOWLING ALLEY REFINISHER Unavailable Unavailable Juan Francisco, A Sandra BOWLING ALLEY REFINISHER Unavailable Unavailable Juan Francisco, A Sandra BOWLING ALLEY REFINISHER Unavailable Unavailable Juan Francisco, A Sandra BOWLING ALLEY REFINISHER Unavailable Unavailable Juan Francisco, A Sandra BOWLING ALLEY REFINISHER Unavailable Unavailable Juan Francisco, A Sandra BOWLING ALLEY REFINISHER Unavailable Unavailable Juan Francisco, A Sandra BOWLING ALLEY REFINISHER Unavailable Unavailable Juan Francisco, A Sandra BOWLING ALLEY REFINISHER Unavailable Unavailable Juan Francisco, A Sandra BOWLING ALLEY REFINISHER Unavailable Unavailable Juan Francisco, A Sandra BOWLING ALLEY REFINISHER Unavailable Unavailable Re-disclosure Warning The records that [...] is protected by Article 27-F of the [facility] Public Health law. If you continue you may have access to information: Regarding HIV / AIDS; Provided by facilities licensed or operated by the [facility] Office of Mental Health; or Provided by the [facility] Office for People With Developmental Disabilities. If such information is present, then the following [facility] mandated warning applies: This information has [...] law may result in a fine or custodial sentence or both. A general authorization for the release of medical or other information is NOT sufficient authorization for further disc losure. Allergies and Adverse Reactions Type Description Substance Reaction Status Data Source(s ) No Known Drug Allergies No Known Drug Allergies [facility] No Known Food Allergies No Known Food Allergies [facility] ENVIRONMENTAL seasonal seasonal [facility] Family History Family Member Name Family Member Gender Family Member Status Date o f Status Description Data Source(s) Unknown Male Problem [facility] ([facility] ) Unknown Male Problem [facility] ([facility]) Unknown Male Problem [facility] ([facility]) () Unknown Male Problem [facility] ([facility]) () Unknown Female Problem [facility] ([facility] Encounters Encounter Providers Location Date Indications Data Source(s ) Outpatient Attender: MADHURI HELLER 09/30/2020 08:32:01 A M EST [facility] Jana Wylie PA-C: [address] [place] [phone], Ph. Attender: Jana GALLARDO - [facility] Medical 09/30/2020 12:00:00 AM EST [facility] ([facility]) Outpatient Attender: Casey Spaulding MD Main Office 03/16/2020 11:30:00 AM EDT [facility] ([facility]) Outpatient Attender: Sandra HELLER 02/18/2020 11:4 9:01 AM EDT [facility] Outpatient Attender: Glory Fischer MDConsultant: Glory hopkins MD 12/24/2019 09:27:00 AM EST - 12/24/2019 09:27:00 AM EST [facility] Outpatient Attender: Glory Fischer MD 0 12/16/2019 07:59:00 AM EST - 12/16/2019 07:59:00 AM EST [facility] Outpatient Attender: Glory Fischer MD Family Practice 0 12/16/2019 07:00:00 AM EST [facility] Outpatient Attender: ELISE YAN MDConsultant: Glory castillo MD 12/03/2019 08:58:00 AM EST - 12/03/2019 08:58:00 AM EST [facility] Outpatient Attender: ELISE YAN MD Family Practice 12/03/2019 08:15:0 0 AM EST [facility] ([facility]) Outpatient Attender: Lo Abad MHCConsultant: Glory gotti MD 10/28/2019 09:48:00 AM EST - 10/28/2019 09:48:00 AM EST [facility] Outpatient Attender: ESME STYLES MDConsultant: Glory ann MD 10/15/2018 01:14:32 PM EST - 10/15/2018 01:13:00 PM EST [facility] Immunizations Vaccine Date Status Description Data Source(s) Tdap 12/16/2019 07:37:00 AM EST completed M EDENT ([facility]) Medications Medication Brand Name Start Date Product Form Dose Route Admi nistrative Instructions Pharmacy Instructions Status Indications Reaction Description Data Source(s) Suprep Bowel Prep Kit Suprep Bowel Prep Kit 03/16/2020 12:00:00 AM EDT active MED[facility] ([facility]) atorvastatin 20 MG Oral Tablet Atorvastatin Calcium 12/16/2019 1 2:00:00 AM EST active MED[facility] ( [facility]) 0.5 ML dulaglutide 1.5 MG/ML Auto-Injector [Trulicity] [facility] 12/16/2019 12:00:00 AM EST active M EDENT ([facility]) Alprostadil 0.04 MG/ML Injectable Solution [Caverject] Josh ject 12/03/2019 12:00:00 AM EST active M EDENT ([facility]) OneTouch Verio test strips U UTD TO TEST TID [id number] completed OneTouch Verio test strips [facility] ([facility]) atorvastatin 20 MG Oral Tablet atorvastatin 20 mg tabl et TK 1 T PO QD atorvastatin 20 mg tablet TK 1 T PO QD completed atorvastatin 20 MG Oral Tablet [facility] ([facility]) Cyclobenzaprine hydrochloride 5 MG Oral Tablet cyclobenzaprine 5 mg tablet TK 1 T PO TID PRN FOR MUSCLE SPASMS cyclobenzaprine 5 mg tablet TK 1 T PO TI D PRN FOR MUSCLE SPASMS completed cyclobenzaprine hydrochloride 5 MG Oral Tablet [facility] ([facility]) Naproxen 500 MG Oral Tablet naproxen 500 mg tablet TK 1 T PO BID P naproxen 500 mg tablet TK 1 T PO BID P completed naproxen 500 MG Oral Tablet [facility] ([facility]) 0.5 ML dulaglutide 1.5 MG/ML Auto-Inject or [Trulicity] Trulicity 0.75 mg/0.5 mL subcutaneous pen injector Trulicity 0.75 mg/0.5 mL subcutaneous pen injector completed 0.5 ML dulaglu tide 1.5 MG/ML Auto-Injector [Trulicity] [place] ([facility]) Suprep Bowel Prep Kit 17.5 gram-3.13 gram-1.6 gram ora l solution MX AND DRK UTD [id number] completed Suprep Bowel Prep Kit 17.5 gram-3.13 gram-1.6 gram oral solution [facility] ([facility]) 1.5 ML Insulin Glargine 300 [...] glargine 300 UNT/ML Pen Injector [Toujeo] [facility] ([facility]) 3 ML Insulin Lispro 100 UNT/ML Pen Injec tor [Humalog] Humalog KwikPen (U-100) Insulin 100 unit/mL subcutaneous Humalog KwikPen (U-100) Insulin 100 unit /mL subcutaneous completed 3 ML insulin lispro 100 UNT/ML Pen Injector [Humalog] [facility] ([facility]) Insurance Providers Payer name Policy type / Coverage type Policy ID Covered democrat ID Covered democrat's relationship to cortes Policy [place]es Plan Information EMEDNY [id number] SP [id number] MEDICARE [id number] SP [id number] Medicare P [id number] S [id number] A Medicaid S [id number] S [id number] MEDICAID [id number] SP [id number] MEDICAID CO [id number] 18 [id number] MEDICAID CO [id number] 18 [id number] MEDICARE PART A [facility] [id number] 18 [id number] MEDICARE PART A -O/P MC [id number] 18 [id number] MEDICAID -PHYSICIAN [id number] MEDICARE CO [id number] 18 [id number] Medicare P [id number] S [id number] A MEDICAID -RECURRING [id number] MEDICARE -RECURRING MC [id number] 18 [id number] MEDICAID -O/P [id number] 18 [id number] [place] [facility] [id number] [place] [id number] 18 [id number] Medicare Commercial [id number] Self [id number] Medicaid Commercial [id number] Self [id number] [place] Part [place] Primary [id number] Self [id number] Medicaid Commercial [id number] Self [id number] Medicare Commercial [id number] Self [id number] Medicaid Commercial [id number] Self [id number] [place] Primary [id number] Self [id number] Medicaid Commercial [id number] Self [id number] BH Medicare Commercial [id number] Self [id number] BH Medicaid Commercial [id number] Self [id number] [place] Medicare Part A [place] Primary [id number] Self [id number] Medicaid Commercial [id number] Self [id number] Medicare Dme Medigap Part B [id number] Self [id number] Medicaid Medicaid [id number] Self [id number] Medicare Medicare Primary [id number] Self [id number] Medicare Dme Medigap Part B [id number] Self [id number] Medicaid Medicaid [id number] Self [id number] Medicare Medicare Primary [id number] Self [id number] Medicare Dme Medigap Part B [id number] Self [id number] Medicaid Medicaid [id number] Self [id number] Medicare Medicare Primary [id number] Self [id number] [place] Part B [id number] Self [id number] [place] Primary [id number] Self [id number] BH Medicaid Commercial [id number] Self [id number] U BH Medicare Commercial [id number] Self [id number] Medicaid Commercial [id number] Self [id number] [place] Part [place] Primary [id number] Self [id number] [place] [id number] Self [id number] [place] Primary [id number] Self [id number] BH Medicare Commercial [id number] Self [id number] BH Medicaid Commercial [id number] Self [id number] U Medicaid Commercial [id number] Self [id number] [place] Primary [id number] Self [id number] BH Medicare Commercial [id number] Self [id number] BH Medicaid Commercial [id number] Self [id number] U Medicaid Commercial [id number] Self [id number] [place] [id number] Self [id number] Medicare Commercial [id number] Self [id number] Medicaid Commercial [id number] Self [id number] U Medicaid Commercial [id number] Self [id number] [place] Primary [id number] Self [id number] Medicare Commercial [id number] Self [id number] Medicaid Commercial [id number] Self [id number] U Medicaid Commercial [id number] Self [id number] [place] Primary [id number] Self [id number] Medicaid [facility] Medicaid [id number] Self A [id number] Medicare [place] Primary [id number] Self [id number] Medicaid [facility] Medicaid [id number] Self A [id number] [place] Primary [id number] Self [id number] Medicaid [facility] Medicaid [id number] Self A [id number] [place] Primary [id number] Self [id number] Medicaid [facility] Medicaid [id number] Self A [id number] [place] Primary [id number] Self [id number] Medicaid [facility] Medicaid [id number] Self A [id number] [place] Primary [id number] Self [id number] Medicaid [facility] Medicaid [id number] Self A [id number] [place] Part [place] [id number] Self [id number] Medicaid [facility] Medicaid [id number] Self A [id number] [place] [id number] Self [id number] MEDICARE [id number] SP [id number] [place] Medig[place] Part [place] [id number] Self [id number] Medicare [facility] Medicare Primary [id number] Self [id number] Medicaid [facility] Medicaid [id number] Self A [id number] Medicare Part [place] Primary [id number] Self [id number] MEDICARE PART A -O/P [id number] 18 [id number] Medicaid [facility] Medicaid [id number] Self A [id number] Medicare Part [place] [id number] Self [id number] Medicaid [facility] Medicaid [id number] Self A [id number] [place] Part [place] Primary [id number] Self [id number] Medicaid [facility] Medicaid [id number] Self A [id number] Medicare Part [place] Primary [id number] Self [id number] Medicaid [facility] Medicaid [id number] Self A [id number] [place] Primary [id number] Self [id number] Medicaid [facility] Medicaid [id number] Self A [id number] [place] Primary [id number] Self [id number] MEDICAID M [id number] Self [id number] MEDICARE A [id number] Self [id number] A Medicaid [facility] Medicaid [id number] Self A [id number] [place] Part [place] Primary [id number] Self [id number] Medicaid [facility] Medicaid [id number] Self A [id number] [place] Primary [id number] Self [id number] Medicare Dme Medigap Part B [id number] Self [id number] Medicaid Medicaid [id number] Self [id number] Medicare Medicare Primary [id number] Self [id number] Medicaid S [id number] S [id number] Medicare Dme Medigap Part B [id number] Self 1 [id number] Medicaid Medicaid [id number] Self [id number] Medicare Medicare Primary [id number] Self 10 [id number] Medicare Dme Medigap Part B [id number] Self 1 [id number] Medicaid Medicaid [id number] Self [id number] Medicare Medicare Primary [id number] Self [id number] Medicare Dme Medigap Part B [id number] Self 1 [id number] Medicaid Medicaid [id number] Self [id number] Medicare Medicare Primary [id number] Self 10 [id number] Medicare Dme Medigap Part B [id number] Self 1 [id number] Medicaid Medicaid [id number] Self [id number] Medicare Medicare Primary [id number] Self 10 [id number] Medicare Dme Medigap Part B [id number] Self 1 [id number] Medicaid Medicaid [id number] Self [id number] Medicare Medicare Primary [id number] Self 10 [id number] Medicaid Medicaid Self Medicare Medicare Primary Self HMO BLUE [id number] SP [id number] BLUE CROSS SAAVEDRA PLAN [id number] SP [id number] MEDICAID S [id number] S [id number] MEDICARE P [id number] S [id number] A HMO BLUE [id number] SP [id number] [facility] [employer] PLUS [id number] SP [id number] HEALTH WELFARE BENEFIT SYS [id number] SP [id number] Problems, Conditions, and Diagnoses Code Display Name Description Problem Type Effective Dates Data Source(s) 269199541 Finding of urine substance level Finding of Urin e Substance Level Problem 01/09/2018 12:00:00 AM EST - 09/30/2020 12:00:00 AM JENNIFER MENDEZ ([facility]) [id number] SNOMED CT Concept SNOMED CT Concept Problem 02/02 12:00:00 AM EDT - 09/30/2020 12:00:00 AM KAREEM MENDEZ ([facility]) [id number] Procedure by method Procedure by Method Problem 0 02/03/2016 12:00:00 AM EDT - 09/30/2020 12:00:00 AM KAREEM MENDEZ ([facility]) [id number] Difficulty passing urine Difficulty Passing Urine Prob allan 02/03/2016 12:00:00 AM EDT - 09/30/2020 12:00:00 AM KAREEM MENDEZ ([facility]) R1310 Dysphagia, unspecified Dysphagia, unspecified Diagnosi s 12/16/2019 07:59:00 AM [facility] F418 Other specified anxiety disorders Other specifie d anxiety disorders Diagnosis 12/16/2019 07:59:00 AM [facility] Z23 Encounter for immunization Encounter for immunization Diagnosis 12/16/2019 07:59:00 AM [facility] E119 Type 2 diabetes mellitus without complic ations Type 2 diabetes mellitus without complications Diagnosis 12/16/2019 07:59:00 AM [facility] N401 Benign prostatic hyperplasia with lower urinary tract symptoms Benign prostatic hyperplasia with lower urinary tract symptoms Diagnosis 12/03/2019 08:58:00 AM [facility] N529 Male erectile dysfunction, unspecified M lily erectile dysfunction, unspecified Diagnosis 12/03/2019 08:58:00 AM [facility] Surgeries/Procedures Procedure Description Date Indications Data Source(s) Endoscopy Upper GI Dilate Gastric Outlet For Obstruction 03/31/2020 12:00:00 AM EDT MED[facility] ([facility] ) COLONOSCOPY FLX DX W/WO COLLJ SPECIMENS 03/31/2020 12: 00:00 AM EDT [facility] ([facility]) UPPER NDSC BIOPSY SINGLE/MULTIPLE 03/31/2020 12:00:00 AM EDT [facility] ([facility]) Results ID Date Data Source [id number] 03/31/2020 09:09:00 AM EDT MED[facility] ([facility]) Name Value Range Interpretation Code Description Data Sandra rce(s) Supporting Document(s) Surgical pathology study Laboratory test result [facility] ([facility]) FINAL DIAGNOSIS Esophagus, below Z line, biopsy: Squamocolumnar junctional mucosa with chronic inflammation and foveolar hyperplasia. No intestinal metaplasia is seen. 04/01/2020 - 1412 CLINICAL DIAGNOSIS Dysphagia and screening 03/31/2020 - 153 GROSS DIAGNOSIS Received in formalin labeled "biopsy below Z line, R/O Cancino's" consists of a fragment of tissue, 0.3 x 0.2 x 0.1 cm in aggregate. All in one. -OA 03/31/2020 153 Signed AIYANA GORDON MD 04/01/20201412 ID Date Data Source [id number] 12/24/2019 01:21:00 PM [facility] Name Value Range Interpretation Code Description Data Sandra rce(s) Supporting Document(s) C[facility]EL [facility] LIPID PAN[facility] Cholesterol [Mass/volume] in Serum or Plasma 121 MG/DL 131 - 200 L [facility] Deprecated Triglyceride [Mass/volume] in Serum or Plasma 141 MG/DL 3 5 - 160 [facility] HDL 46 MG/DL 29 - 86 [facility] Cholesterol in LDL/Cholesterol in HDL [Mass Ratio] in Serum or Plasma 62 mg/dL 65 - 175 L [facility] Cholesterol.total/Cholesterol in HDL [Mass Ratio] in Serum o r Plasma 2.6 3.4 - 4.9 L [facility] LDL/HDL 1.35 1.00 - 3.55 [facility] CVE RISK CHOL/HDL LDL/HDLMEN: 1/2 AVERAGE 3.43 1.00 AVERAGE 4.97 3.55 2X AVERAGE 9.55 6.25 3X AVERAGE 23.99 7.99WOMEN: 1/2 AVERAGE 3.27 1.47 AVERAGE 4.44 3.22 2X AVERAGE 7.05 5.03 3X AVERAGE 11.04 6.14 ID Date Data Source [id number] 12/24/2019 01:21:00 PM EST [facility] Name Value Range Interpretation Code Description Data Sandra rce(s) Supporting Document(s) COMPREHENSIVE METABOLIC PANEL [facility] COMPREHENSIVE METABOLIC PANEL Sodium [Moles/volume] in Serum or Plasma 138 mEq/L 134 - 153 [facility] Potassium [Moles/volume] in Serum or Plasma 4.2 mEq/L 3.6 - 5.0 [facility] Chloride [Moles/volume] in Serum or Plasma 102 mEq/L 98 - 107 [facility] Carbon dioxide, total [Moles/volume] in Serum or Plasma 24 MEQ/L 22 - 30 [facility] Glucose [Mass/volume] in Serum or Plasma 273 MG/DL 65 - 110 H [facility] BUN 22 MG/DL 7 - [address] [facility] Creatinine [Mass/volume] in Serum or Plasma 0.9 MG/DL 0.7 - 1.5 [facility] BUN/CREAT 24 8 - 27 [facility] Protein [Mass/volume] in Serum or Plasma 7.3 G/DL 6.3 - 8.2 [facility] Albumin [Mass/volume] in Serum or Plasma 4.5 G/DL 3.9 - 5.0 [facility] Globulin [Mass/volume] in Serum by calculation 2.8 GM/DL 2.4 - 3.2 [facility] A/G RATIO 1.6 0.8 - 2.0 [facility] Calcium [Mass/volume] in Serum or Plasma 9.7 MG/DL 8.4 - 10.2 [facility] Bilirubin.total [Mass/volume] in Serum or Plasma 0.8 MG/DL 0.2 - 1.3 [facility] Alkaline phosphatase [Enzymatic activity/volume] in Serum or Plasma 76 U/L 38 - 126 [facility] Aspartate aminotransferase [Enzymatic activity/volume] in Serum or Plasma 14 U/L 5 - 40 [facility] Alanine aminotransferase [Enzymatic activity/volume] in Seru m or Plasma 18 U/L 7 - 56 [facility] Anion gap 3 in Serum or Plasma 12.0 mmol/L 8.0 - 16.0 [facility] AGE 49 yrs [facility] Hospit [facility] NON-AA GFR >60 mL/min [facility] Hosp ital AFR AMER GFR >60 mL/min [facility] Ho spital Male GFR In terprentation 20-49 [...] >32 mL/min Normal ID Date Data Source [id number] 12/24/2019 01:21:00 PM [facility] Name Value Range Interpretation Code Description Data Sandra [facility](s) Supporting Document(s) Hemoglobin A1c/Hemoglobin.total in Blood 10.4 % 4.4 - 6.1 H [facility] {A1]{HB] ID Date Data Source [id number] 12/24/2019 01:04:00 PM [facility] Name Value Range Interpretation Code Description Data Sandra [facility](s) Supporting Document(s) CBC NO DIFF [facility] COMPLETE BLOOD COUNT Leukocytes [#/volume] in Blood by Automated count 6.8 10^3/uL 4.2 - 1 1.0 [facility] Erythrocytes [#/volume] in Blood by Automated count 5.51 10^6/uL 4. 50 - 6.30 [facility] Hemoglobin [Mass/volume] in Blood 17.3 g/dL 14.0 - 16.0 H [facility] Hematocrit [Volume Fraction] of Blood by Automated count 49.9 % 4 1.0 - 51.0 [facility] Erythrocyte mean corpuscular volume [Entitic volume] by Auto mated count 90.6 fL 80.0 - 94.0 [facility] Erythrocyte mean corpuscular hemoglobin [Entitic mass] by Automated count 31.4 pg 27.0 - 34.0 [facility] Erythrocyte mean corpuscular hemoglobin concentration [Mass/volume] by Automated count 34.7 g/dL 31.0 - 36.0 [facility] Erythrocyte distribution width [Ratio] by Automated count 13.1 % 11.5 - 14.8 [facility] Platelets [#/volume] in Blood by Automated count 175 10^3/uL 150 - 45 0 [facility] Platelet mean volume [Entitic volume] in Blood by Automated count 10.8 fL 7.4 - 10.4 H [facility] ID Date Data Source [id number] 12/03/2019 09:56:00 AM EST MEDENT ([facility]) Name Value Range Interpretation Code Description Data Sandra rce(s) Supporting Document(s) Microscopic observation [Identifier] in Unspecified specimen by Non- gynecological cytology method <pending> [facility] ([facility]) ID Date Data Source [id number] 12/03/2019 09:17:00 AM EST MED[facility] ([facility]) Name Value Range Interpretation Code Description Data Sandra rce(s) Supporting Document(s) Color of Urine yellow [facility] ([facility]) Spec Raymond 1.015 [facility] ([facility]) Appearance of Urine clear [facility] ([facility]) pH of Urine by Test strip 5 MEDE NT ([facility]) Leukocytes neg [facility] ([facility]) Protein [Presence] in Urine by Test strip neg MED[facility] ([facility]) Inhouse Glucose 500 [facility] ([facility]) Nitrate [Presence] in Urine neg ME DENT ([facility]) Ketones [Presence] in Urine by Test strip neg [facility] ([facility]) Urobilinogen norm [facility] ([facility]) Bilirubin.total [Presence] in Urine by Test strip neg [facility] ([facility]) Blood type and Indirect antibody screen panel - Blood neg [facility] ([facility]) Procedure Vital Signs ID Date Data Source UNK Name Value Range Interpretation Code Description Data Source(s) Body weight 2710 [oz_av] 2710 [oz_av] [facility] ([facility]) Systolic blood pressure 130 mm[Hg] 130 mm[Hg] A THENA ([facility]) Body mass index (BMI) [Ratio] 25.8 kg/m2 25.8 k g/m2 [place] ([facility]) Body height 68 [in_i] 68 [in_i] [place] ([facility]) Diastolic blood pressure 82 mm[Hg] 82 mm[Hg] [place] ([facility]) Body weight 79.834 kg 79.834 kg [facility] ([facility]) Body mass index (BMI) [Ratio] 26.0 kg/m2 26.0 k g/m2 [facility] ([facility]) Heart rate 87 /min 87 /min [facility] ([facility]) Diastolic blood pressure 89 mm[Hg] 89 mm[Hg] [facility] ([facility]) Systolic blood pressure 137 mm[Hg] 137 mm[Hg] M EDENT ([facility]) Body weight 176.00 [lb_av] 176.00 [lb_av] MEDEN T ([facility]) Body height 69 [in_i] 69 [in_i] [facility] ([facility]) 5'9" Body surface area 1.94 m2 1.94 m2 [facility] ([facility]) Body mass index (BMI) [Ratio] 26.9 kg/m2 26.9 k g/m2 [facility] ([facility]) Body height 68 [in_i] 68 [in_i] [facility] ([facility]) 5'8" Body weight 80.401 kg 80.401 kg [facility] ([facility]) Body weight 177.25 [lb_av] 177.25 [lb_av] MED[facility] T ([facility]) Oxygen saturation in Arterial blood by Pulse oximetry 98 % 98 % [facility] ([facility]) Respiratory rate 16 /min 16 /min [facility] Body temperature 97.4 [degF] 97.4 [degF] [facility] ([facility]) Heart rate 76 /min 76 /min [facility]) Diastolic blood pressure 76 mm[Hg] 76 mm[Hg] [facility] ([facility]) Systolic blood pressure 120 mm[Hg] 120 mm[Hg] M [facility] Body surface area 1.93 m2 1.93 m2 [facility] ([facility]) Body mass index (BMI) [Ratio] 26.6 kg/m2 26.6 k g/m2 [facility] ([facility]) Body height 68 [in_i] 68 [in_i] [facility] ([facility]) 5'8" Body weight 79.380 kg 79.380 kg [facility] ([facility]) Body weight 175.00 [lb_av] 175.00 [lb_av] [facility] T ([facility]) Oxygen saturation in Arterial blood by Pulse oximetry 97 % 97 % [facility] Respiratory rate 19 /min 19 /min [facility] ( [facility]) Body temperature 97.1 [degF] 97.1 [degF] [facility] ([facility]) Heart rate 87 /min 87 /min [facility] ([facility]) Diastolic blood pressure 84 mm[Hg] 84 mm[Hg] [facility] ([facility]) Systolic blood pressure 128 mm[Hg] 128 mm[Hg] [facility] Patient Treatment Plan of Care Planned Activity Planned Date Details Description Data Source (s) 0.5 ML dulaglutide 1.5 MG/ML Auto-Injector [Trulicity] [facility]) 1.5 ML Insulin Glargine 300 UNT/ML Pen Injector [Toujeo] [place] ([facility]) Suprep Bowel Prep Kit 17.5 gram-3.13 gram-1.6 gram ora l solution MX AND DRK UTD [facility]) OneTouch Verio test strips U UTD TO TEST TID [facility] ([facility]) Naproxen 500 MG Oral Tablet [facility] ([facility]) 3 ML Insulin Lispro 100 UNT/ML Pen Injector [Humalog] [facility] ([facility]) Cyclobenzaprine hydrochloride 5 MG Oral Tablet [facility] ([facility]) atorvastatin 20 MG Oral Tablet [facility] ([facility])
[2021-01-14] MEDS ORDERED: DEBR6.5S4 OTIC (22:27)
[2021-01-14] MEDS ORDERED: LIDO5DIS41 TOP (22:27)
[2021-01-14 22:43] VITALS: BP 145/90
[2021-01-15] MEDS ORDERED: **NOTE PATIENT COMMENT** MISC XX ONE (09:30)
== END 2021-01-14 22:45 | disposition home or self-care (01) ==
LOC: M ED 20:03
DX: H61.23 Impacted cerumen, bilateral (principal); M25.512 Pain in left shoulder; E11.9 Type 2 diabetes mellitus without complications; I10 Essential (primary) hypertension; R78.5 Finding of other psychotropic drug in blood; F31.9 Bipolar disorder, unspecified; F43.10 Post-traumatic stress disorder, unspecified; K21.9 Gastro-esophageal reflux disease without esophagitis; Z79.899 Other long term (current) drug therapy; Z79.82 Long term (current) use of aspirin; Z79.4 Long term (current) use of insulin

== ENCOUNTER 2021-01-22 15:43 | Emergency (ER) | payer MEDICARE, MEDICAID ==
[~2021-01-22] VITALS: Ht 172.7 cm; Wt 80.7 kg
[~2021-01-22 15:43] MED LIST changes: +DEBR6.5S4 OTIC; +LIDO5DIS41 TOP
[2021-01-22] MEDS ORDERED: GABAPENTIN 300 MG CAP PO ONE (17:10)
--- NOTE | 2021-01-22 17:54 | REPVR ---
PROCEDURE INFORMATION: Exam: CT Cervical Spine Without Contrast Exam date and time: 01/22/2021 5:17 PM Age: 50 years old Clinical indication: Neck pain; Additional info: Neck/back pain radiating to left arm TECHNIQUE: Imaging protocol: Computed tomography images of the cervical spine without contrast. Radiation optimization: All CT scans at this facility use at least one of these dose optimization techniques: automated exposure control; mA and/or kV adjustment per patient size (includes targeted exams where dose is matched to clinical indication); or iterative reconstruction. COMPARISON: CR Spine, Cervical 01/25/2017 9:47 AM FINDINGS: Bones/joints: No traumatic segmental malalignment of cervical spine or craniocervical junction. Vertebral body height is maintained at all levels. No acute fracture. No destructive or blastic cervical spine osseous lesion. Discs/Spinal canal/Neural foramina: Intervertebral disc height is decreased at multiple levels, with typical degenerative pattern and associated endplate, articular pillar and uncovertebral spurs. Lungs: No concerning abnormality of the imaged lung apices. Soft tissues: Soft tissues show no concerning abnormality or asymmetry. IMPRESSION: 1. No acute fracture or traumatic subluxation of the cervical spine. 2. Mild multilevel degenerative disc and articular pillar arthropathy. Electronically signed by: William Etienne On 01/22/2021 17:54:43 PM
--- NOTE | 2021-01-22 17:56 | REPVR ---
PROCEDURE INFORMATION: Exam: CT Thoracic Spine Without Contrast Exam date and time: 01/22/2021 5:17 PM Age: 50 years old Clinical indication: Other: /back pain radiating to left arm; Additional info: Neck/back pain radiating to left arm TECHNIQUE: Imaging protocol: Computed tomography images of the thoracic spine without contrast. Radiation optimization: All CT scans at this facility use at least one of these dose optimization techniques: automated exposure control; mA and/or kV adjustment per patient size (includes targeted exams where dose is matched to clinical indication); or iterative reconstruction. COMPARISON: No relevant prior studies available. FINDINGS: Vertebrae: No segmental malalignment of the vertebral bodies. Vertebral body height is maintained. No fracture or destructive process. Discs/Spinal canal/Neural foramina: Multi-level, age-related thoracic degenerative disc disease is present with mild disc height loss but no significant osseous spinal canal or osseous neural foraminal narrowing Soft tissues: No paraspinous soft tissue mass or focal soft tissue edema. IMPRESSION: No fracture or other acute abnormality involving the thoracic spine. Electronically signed by: William Etienne On 01/22/2021 17:56:37 PM
[2021-01-22] MEDS ORDERED: NEUR300C PO (18:11)
[2021-01-22] MEDS ORDERED: CYCL5TAB PO (18:11)
[2021-01-22 18:23] VITALS: BP 159/84
== END 2021-01-22 18:30 | disposition home or self-care (01) ==
LOC: M ED 15:43
DX: M50.30 Other cervical disc degeneration, unspecified cervical region (principal); M25.512 Pain in left shoulder; E11.9 Type 2 diabetes mellitus without complications; E78.5 Hyperlipidemia, unspecified; F33.9 Major depressive disorder, recurrent, unspecified; F41.9 Anxiety disorder, unspecified; F43.10 Post-traumatic stress disorder, unspecified; K21.9 Gastro-esophageal reflux disease without esophagitis; N40.0 Benign prostatic hyperplasia without lower urinary tract symptoms; Z79.82 Long term (current) use of aspirin; Z79.4 Long term (current) use of insulin

== ENCOUNTER 2021-02-21 13:58 | Emergency (ER) | payer MEDICARE, MEDICAID ==
[~2021-02-21] VITALS: Ht 172.7 cm; Wt 78.4 kg
[2021-02-21 13:58] VITALS: BP 146/88
[~2021-02-21 13:58] MED LIST changes: +NEUR300C PO
--- NOTE | 2021-02-21 15:21 | REP ---
INDICATION: PAIN DECREASED ROM COMPARISON: None. TECHNIQUE: Three views left shoulder. FINDINGS: There is no evidence of acute fracture, dislocation, or intrinsic bone disease.There are mild degenerative changes at the acromioclavicular joint. IMPRESSION: No fracture or dislocation. <Electronically signed by Shahbaz Mays > 02/21/21 [id number]
== END 2021-02-21 18:08 | disposition home or self-care (01) ==
LOC: M ED 13:58
DX: M50.30 Other cervical disc degeneration, unspecified cervical region (principal); M25.512 Pain in left shoulder; E11.9 Type 2 diabetes mellitus without complications; E78.5 Hyperlipidemia, unspecified; K21.9 Gastro-esophageal reflux disease without esophagitis; F31.9 Bipolar disorder, unspecified; F41.9 Anxiety disorder, unspecified; F43.10 Post-traumatic stress disorder, unspecified; Z79.82 Long term (current) use of aspirin

== ENCOUNTER → 2021-03-09 | Outpatient (REF) | payer MEDICARE, MEDICAID ==
[2021-03-09 12:24] LABS: BASO % 0.5 % (0.0-1.0); EOS # 0.1 10^3/uL (0.0-0.5); EOS % 1.8 % (0.0-3.0); HEMATOCRIT 51.9 % (42.0-52.0); HEMOGLOBIN 18.4 g/dl (13.5-17.5); LYMPH # 1.8 10^3/uL (1.5-5.0); LYMPH % 28.3 % (24.0-44.0); MEAN CORPUSCULAR HEMOGLOBIN 31.9 pg (27.0-33.0); MEAN CORPUSCULAR HGB CONC 35.5 g/dl (32.0-36.5); MEAN CORPUSCULAR VOLUME 90.1 fl (80.0-96.0); MONO # 0.6 10^3/uL (0.0-0.8); MONO % 9.4 % (2.0-8.0); NEUTROPHILS # 3.7 10^3/uL (1.5-8.5); NEUTROPHILS % 59.4 % (36.0-66.0); PLATELET COUNT, AUTOMATED 171 10^3/uL (150-450); RED BLOOD COUNT 5.76 10^6/uL (4.30-6.10); WHITE BLOOD COUNT 6.3 10^3/uL (4.0-10.0)
[2021-03-09 12:54] LABS: ALBUMIN 4.2 GM/DL (3.2-5.2); ALT/SGPT 29 U/L (12-78); BILIRUBIN,TOTAL 1.1 MG/DL (0.2-1.0); BLOOD UREA NITROGEN 15 MG/DL (7-18); CALCIUM LEVEL 9.3 MG/DL (8.5-10.1); CARBON DIOXIDE LEVEL 31 MEQ/L (21-32); CHLORIDE LEVEL 102 MEQ/L (98-107); CHOLESTEROL LEVEL 145 MG/DL (<200); CHOLESTEROL RISK RATIO 3.085 (<5); CREATININE FOR GFR 1.04 MG/DL (0.70-1.30); GLOMERULAR FILTRATION RATE > 60.0 (>56); GLUCOSE, FASTING 326 MG/DL (70-100); HDL CHOLESTEROL 47 MG/DL (>40); LDL CHOLESTEROL 63 MG/DL (<100); NON-HDL-C 98 MG/DL; POTASSIUM SERUM 4.3 MEQ/L (3.5-5.1); SODIUM LEVEL 137 MEQ/L (136-145); TOTAL PROTEIN 7.9 GM/DL (6.4-8.2); TRIGLYCERIDES LEVEL 176 MG/DL (<150)
[2021-03-09 13:07] LABS: CREATININE, URINE 52.7 MG/DL; MALB URINE SIEMENS 35.3 MG/L; MAU/CREAT RATIO 66.9 MCG/MG (0.0-30.0)
== END ==
LOC: M LAB REF 11:42
PROVIDERS: ATTEND Physician Assistant
DX: E11.65 Type 2 diabetes mellitus with hyperglycemia (principal)

== ENCOUNTER → 2021-04-07 | Outpatient (CLI) | payer MEDICARE, MEDICAID ==
[2021-04-07 18:10] LABS: HEMOGLOBIN A1c 11.3 %
[2021-04-07 18:20] LABS: RHEUMATOID FACTOR QUANT < 10.0 IU/ML (<15.0); TOTAL PROTEIN 7.3 GM/DL (6.4-8.2)
[2021-04-07 18:29] LABS: FOLATE 17.7 NG/ML; VITAMIN B12 LEVEL 493 PG/ML
== END ==
LOC: M LAB 16:12
PROVIDERS: ATTEND Psychiatry & Neurology Neurology
DX: M54.2 Cervicalgia (principal); M79.602 Pain in left arm; Z79.899 Other long term (current) drug therapy

== ENCOUNTER → 2021-04-25 | Outpatient (REF) | payer MEDICARE, MEDICAID ==
[2021-04-25 19:05] LABS: ALBUMIN 3.9 GM/DL (3.2-5.2); ALT/SGPT 26 U/L (12-78); BLOOD UREA NITROGEN 20 MG/DL (7-18); CALCIUM LEVEL 9.3 MG/DL (8.5-10.1); CARBON DIOXIDE LEVEL 27 MEQ/L (21-32); CHLORIDE LEVEL 100 MEQ/L (98-107); CREATININE FOR GFR 1.19 MG/DL (0.70-1.30); GLOMERULAR FILTRATION RATE > 60.0 (>56); GLUCOSE, FASTING 382 MG/DL (70-100); POTASSIUM SERUM 4.5 MEQ/L (3.5-5.1); SODIUM LEVEL 135 MEQ/L (136-145); TOTAL PROTEIN 7.6 GM/DL (6.4-8.2)
== END ==
LOC: M LAB REF 16:24
PROVIDERS: ATTEND Physician Assistant
DX: E11.65 Type 2 diabetes mellitus with hyperglycemia (principal)

== ENCOUNTER 2021-05-23 10:42 | Emergency (ER) | payer MEDICARE, MEDICAID ==
[~2021-05-23] VITALS: Ht 172.7 cm; Wt 72.5 kg
[2021-05-23 10:43] VITALS: BP 116/79
[2021-05-23] MEDS ORDERED: VICT18IN2 (11:47)
[2021-05-23] MEDS ORDERED: SITA50TAB (11:47)
[2021-05-23] MEDS ORDERED: ACYC200C8 PO (14:07)
[2021-05-23] MEDS ORDERED: ZOVI5CRE4 TOP (14:07)
== END 2021-05-23 14:23 | disposition home or self-care (01) ==
LOC: M ED 10:42
DX: R21 Rash and other nonspecific skin eruption (principal); B00.89 Other herpesviral infection; E11.9 Type 2 diabetes mellitus without complications; E78.00 Pure hypercholesterolemia, unspecified; K21.9 Gastro-esophageal reflux disease without esophagitis; F31.9 Bipolar disorder, unspecified; F41.9 Anxiety disorder, unspecified; F43.10 Post-traumatic stress disorder, unspecified; Z79.899 Other long term (current) drug therapy; Z79.82 Long term (current) use of aspirin

== ENCOUNTER 2021-05-24 22:02 | Emergency (ER) | payer MEDICARE, MEDICAID ==
[~2021-05-24] VITALS: Ht 172.7 cm; Wt 72.3 kg
[2021-05-24 22:02] VITALS: BP 127/80
[~2021-05-24 22:02] MED LIST changes: +ACYC200C8 PO; +SITA50TAB; +VICT18IN2; +ZOVI5CRE4 TOP
== END 2021-05-25 03:42 | disposition left against medical advice (07) ==
LOC: M ED 05-25 03:28
DX: Z53.21 Procedure and treatment not carried out due to patient leaving prior to being seen by health care provider (principal)

== ENCOUNTER 2021-05-30 11:30 | Emergency (ER) | payer MEDICARE, MEDICAID ==
[~2021-05-30] VITALS: Ht 172.7 cm; Wt 72.7 kg
[~2021-05-30 11:30] MED LIST changes: -LATU80TA; -LATU80TA PO; +LATU80TA2; +LATU80TA2 PO; -LISI-898 PO; +LISI5TAB11 PO
[2021-05-30 11:32] VITALS: BP 137/94
[2021-05-30 12:57] LABS: HEMATOCRIT 49.5 % (42.0-52.0); HEMOGLOBIN 17.6 g/dl (13.5-17.5); MEAN CORPUSCULAR HEMOGLOBIN 32.1 pg (27.0-33.0); MEAN CORPUSCULAR HGB CONC 35.6 g/dl (32.0-36.5); MEAN CORPUSCULAR VOLUME 90.3 fl (80.0-96.0); PLATELET COUNT, AUTOMATED 210 10^3/uL (150-450); RED BLOOD COUNT 5.48 10^6/uL (4.30-6.10); WHITE BLOOD COUNT 12.3 10^3/uL (4.0-10.0)
[2021-05-30 13:25] LABS: AMPHETAMINES LEVEL URINE NEGATIVE (NEGATIVE); BARBITURATES URINE NEGATIVE (NEGATIVE); BENZODIAZEPINES URINE NEGATIVE (NEGATIVE); CANNABINOIDS URINE NEGATIVE (NEGATIVE); COCAINE METABOLITE URINE NEGATIVE (NEGATIVE); METHADONE URINE NEGATIVE (NEGATIVE); OPIATES URINE NEGATIVE (NEGATIVE); PHENCYCLIDINE URINE NEGATIVE (NEGATIVE)
[2021-05-30 13:38] LABS: ACETAMINOPHEN LEVEL < 2.0 UG/ML (10.0-30.0); ALBUMIN 4.4 GM/DL (3.2-5.2); ALT/SGPT 32 U/L (12-78); BILIRUBIN,DIRECT 0.3 MG/DL (0.0-0.2); BILIRUBIN,TOTAL 0.9 MG/DL (0.2-1.0); BLOOD UREA NITROGEN 17 MG/DL (7-18); CALCIUM LEVEL 9.4 MG/DL (8.5-10.1); CARBON DIOXIDE LEVEL 27 MEQ/L (21-32); CHLORIDE LEVEL 104 MEQ/L (98-107); CREATININE FOR GFR 1.23 MG/DL (0.70-1.30); ETHYL ALCOHOL (ETHANOL) < 0.003 % (0.000-0.010); GLOMERULAR FILTRATION RATE > 60.0 (>56); GLUCOSE, FASTING 380 MG/DL (70-100); POTASSIUM SERUM 4.1 MEQ/L (3.5-5.1); SALICYLATE LEVEL < 1.7 MG/DL (5.0-30.0); SODIUM LEVEL 137 MEQ/L (136-145); THYROID STIMULATING HORMONE 0.669 uIU/ML (0.358-3.740)
[2021-10-23] MEDS ORDERED: FINA5TAB2 PO (09:01)
[2021-10-23] MEDS ORDERED: ONDA4TAB6 PO (09:01)
[2021-10-23] MEDS ORDERED: CEFD300C PO (10:43)
[2021-10-23] MEDS ORDERED: ASPI81TA26 PO (16:55)
[2021-10-23] MEDS ORDERED: FLOM0.4C39 PO (16:55)
[2021-10-23] MEDS ORDERED: LANTINJ4 SC (16:55)
[2021-10-23] MEDS ORDERED: ACET500T15 PO (16:55)
[2021-10-25] MEDS ORDERED: LANTINJ4 SC (11:23)
[2021-10-25] MEDS ORDERED: METF-838 PO (11:24)
== END 2021-05-30 13:45 | disposition home or self-care (01) ==
LOC: M ED 11:30
DX: F43.20 Adjustment disorder, unspecified (principal); E11.9 Type 2 diabetes mellitus without complications; Z79.899 Other long term (current) drug therapy; Z79.82 Long term (current) use of aspirin; Z79.84 Long term (current) use of oral hypoglycemic drugs

== ENCOUNTER → 2021-07-01 | Outpatient (REF) | payer MEDICARE, MEDICAID ==
[~2021-07-01] MED LIST changes: +CEPH500C PO; +LATU80TA; +LATU80TA PO; -LATU80TA2; -LATU80TA2 PO; +LISI-898 PO; -LISI5TAB11 PO
[2021-07-01 12:13] LABS: BASO % 0.3 % (0.0-1.0); EOS # 0.1 10^3/uL (0.0-0.5); EOS % 1.4 % (0.0-3.0); HEMATOCRIT 50.9 % (42.0-52.0); HEMOGLOBIN 17.9 g/dl (13.5-17.5); LYMPH # 2.1 10^3/uL (1.5-5.0); LYMPH % 21.8 % (24.0-44.0); MEAN CORPUSCULAR HEMOGLOBIN 32.1 pg (27.0-33.0); MEAN CORPUSCULAR HGB CONC 35.2 g/dl (32.0-36.5); MEAN CORPUSCULAR VOLUME 91.4 fl (80.0-96.0); MONO # 0.7 10^3/uL (0.0-0.8); MONO % 7.1 % (2.0-8.0); NEUTROPHILS # 6.6 10^3/uL (1.5-8.5); PLATELET COUNT, AUTOMATED 205 10^3/uL (150-450); RED BLOOD COUNT 5.57 10^6/uL (4.30-6.10); WHITE BLOOD COUNT 9.5 10^3/uL (4.0-10.0)
[2021-07-01 12:40] LABS: HEMOGLOBIN A1c 10.6 %
[2021-07-01 12:53] LABS: ALBUMIN 4.2 GM/DL (3.2-5.2); ALT/SGPT 28 U/L (12-78); BILIRUBIN,TOTAL 0.8 MG/DL (0.2-1.0); BLOOD UREA NITROGEN 19 MG/DL (7-18); CALCIUM LEVEL 9.5 MG/DL (8.5-10.1); CARBON DIOXIDE LEVEL 30 MEQ/L (21-32); CHLORIDE LEVEL 101 MEQ/L (98-107); CHOLESTEROL LEVEL 137 MG/DL (<200); CHOLESTEROL RISK RATIO 3.044 (<5); CREATININE FOR GFR 1.28 MG/DL (0.70-1.30); FOLATE 11.4 NG/ML; GLOMERULAR FILTRATION RATE > 60.0 (>56); GLUCOSE, FASTING 374 MG/DL (70-100); HDL CHOLESTEROL 45 MG/DL (>40); LDL CHOLESTEROL 42 MG/DL (<100); NON-HDL-C 92 MG/DL; POTASSIUM SERUM 3.8 MEQ/L (3.5-5.1); SODIUM LEVEL 138 MEQ/L (136-145); TOTAL PROTEIN 7.5 GM/DL (6.4-8.2); TRIGLYCERIDES LEVEL 251 MG/DL (<150); VITAMIN B12 LEVEL 449 PG/ML
== END ==
LOC: M LABWUC 11:41
PROVIDERS: ATTEND Psychiatry & Neurology Psychiatry
DX: F31.9 Bipolar disorder, unspecified (principal); Z79.899 Other long term (current) drug therapy

== ENCOUNTER 2021-07-02 19:17 | Emergency (ER) | payer MEDICARE, MEDICAID ==
[~2021-07-02] VITALS: Ht 172.7 cm; Wt 71.8 kg
[~2021-07-02 19:17] MED LIST changes: -CEPH500C PO
[2021-07-02] MEDS ORDERED: LIDOCAINE W/EPINEPHRINE 1% 20ML VIAL SC ONE (20:20)
[2021-07-02] MEDS ORDERED: CEPH500C PO (20:49)
[2021-07-02 21:01] VITALS: BP 115/67
== END 2021-07-02 21:53 | disposition home or self-care (01) ==
LOC: M ED 19:17
DX: L72.3 Sebaceous cyst (principal); E78.00 Pure hypercholesterolemia, unspecified; E11.9 Type 2 diabetes mellitus without complications; M54.9 Dorsalgia, unspecified; G89.29 Other chronic pain; F41.9 Anxiety disorder, unspecified; F31.9 Bipolar disorder, unspecified; F43.10 Post-traumatic stress disorder, unspecified; K21.9 Gastro-esophageal reflux disease without esophagitis; Z79.899 Other long term (current) drug therapy; Z79.82 Long term (current) use of aspirin

== ENCOUNTER 2021-08-12 18:36 | Emergency (ER) | payer MEDICARE, MEDICAID ==
[~2021-08-12] VITALS: Ht 172.7 cm; Wt 73.7 kg
[~2021-08-12 18:36] MED LIST changes: +CEPH500C PO
[2021-08-12 18:38] VITALS: BP 130/86
== END 2021-08-12 23:40 | disposition left against medical advice (07) ==
LOC: M ED 18:36
DX: Z53.29 Procedure and treatment not carried out because of patient's decision for other reasons (principal)

== ENCOUNTER 2021-08-31 11:47 | Emergency (ER) | payer MEDICARE, MEDICAID ==
[~2021-08-31] VITALS: Ht 172.7 cm; Wt 72.7 kg
[2021-08-31] MEDS ORDERED: MORPHINE 2 MG/ML 1ML VIAL (J2270) IV ONE (12:50)
[2021-08-31] MEDS ORDERED: NS 500 ML IV ONE (12:50)
[2021-08-31] MEDS ORDERED: METOCLOPRAMIDE INJ 10MG/2ML VIAL (J2765 PER 1) IV ONE (12:50)
[2021-08-31] MEDS ORDERED: HumuLIN R (REGULAR) INSULIN (NovoLIN R) **100U/ML** PER UNIT IV ONE (13:40)
[2021-08-31] MEDS ORDERED: ISOVUE-370 76% 100ML VIAL As Ordered ONE (13:49)
--- OUTSIDE RECORDS SUMMARY | 2021-08-31 13:53 | CCD ---
Author Organization Unknown Address [address] [place] [id number] Phone [phone] Care Team Providers Care 3D Animator Name Role Phone Jana Wylie Unavailable Unavailable Allergies Code Code System Name Reaction Severity Status Onset NKDA Notes: seasonal allergies. Medications Name Status Start Date Stop Date acyclovir 200 mg capsule Active Not shaun ilable atorvastatin 10 mg tablet Active Not av ailable atorvastatin 20 mg tablet TK 1 T PO QD Completed 09/30/2020 cyclobenzaprine 5 mg tablet TAKE ONE TABLET BY MOUTH THREE TIMES DAILY NEEDED FOR MUSCLE SPASMS Completed 02/15/2021 gabapentin 300 mg capsule TAKE 1 CAPSULE BY MOUTH THREE TIMES DAILY Completed 02/15/2021 Humalog KwikPen (U-100) Insulin 100 unit/mL subcutaneous Complet ed 09/30/2020 Icy Hot 30 %-10 % topical stick Active Not available Januvia 25 mg tablet Completed 02/15/2021 Januvia 50 mg tablet Active Not availab le naproxen 500 mg tablet TK 1 T PO BID P Completed 09/30/2020 OneTouch Verio test strips USE TO TEST YOUR BLOOD GLUCOSE TWICE DAILY Active Not available Suprep Bowel Prep Kit 17.5 gram-3.13 gra m-1.6 gram oral solution MX AND DRK UTD Completed 09/30/2020 Michael Hansen U-300 Insulin 300 unit/m L (1.5 mL) subcutaneous pen INJECT 35 UNITS UNDER THE SKIN IN THE MORNING AND 45 UNITS IN THE EVENING Completed 09/30/2020 Trulicity 0.75 mg/0.5 mL subcutaneous pen injector Completed 09/30/2020 Tylenol Extra Strength 500 mg tablet Take 2 tablets every 6 hours by oral route. Active Not available Unifine Pentips 31 gauge x 1/4" needle USE WITH VICTOZA PEN Active Not available Victoza 3-Antelmo 0.6 mg/0.1 mL (18 mg/3 mL) subcutaneous pen inject or Active Not available Problems Name Status Onset Date Source Type 2 Diabetes Mellitus without Complication Active History Bipolar Disorder Active 02/03/2016 History Anxiety Active 02/03/2016 History Posttraumatic Stress Disorder Active 02/03/2016 Hi story Difficulty Passing Urine Unknown 02/03/2016 History Procedure by Method Unknown 02/03/[address] Concept Unknown 02/03/2016 History Clinical Finding Unknown 02/03/[address] Concept Unknown 02/03/2016 History Raised Prostate Specific Antigen Active 03/03/2016 History Renal Function Tests Abnormal Unknown 03/03/2016 Hi story Low Back Pain Active 06/09/2016 History Finding of Urine Substance Level Unknown 01/09/[address] Concept Unknown 01/09/2018 History 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 4 % Final [facility]: [address] [facility] 04/25/2021 CMP, Serum or Plasma Blood venous High Glu cose, Fasting 382 mg/dL 70-100 mg/dL [facility] nter: [address] [facility] Blood venous High Blood Urea Nitrogen 20 mg/dL 7-18 mg/dL [facility]: [address] [facility] Blood venous Normal Creatinine for GFR 1.19 mg/dL 0.70-1.30 mg/dL [facility]: [address] [facility] Blood venous Normal Glomerular Filtration Rate > 60.0 >56 [facility]: [address] [facility] Blood venous Low Sodium Level 135 mEq/L 136-14 5 mEq/L [facility]: [address] [facility] Blood venous Normal Potassium Serum 4.5 mEq/L 3.5 -5.1 mEq/L [facility]: [address] [facility] Blood venous Normal Chloride Level 100 mEq/L 98-1 07 mEq/L [facility]: [address] [facility] Blood venous Normal Carbon Dioxide Level 27 mEq/L 21-32 mEq/L [facility]: [address] [facility] Blood venous Normal Anion Gap 8 mEq/L 8-16 mEq/L [facility]: [address] [place] [address] Blood venous Normal Calcium Level 9.3 mg/dL 8.5-1 0.1 mg/dL [facility]: [address] [place] [address] Blood venous Normal AST/SGOT 9 U/L 7-37 U/L Amanda l [facility]: [address] [place] [address] Blood venous Normal ALT/SGPT 26 U/L 12-78 U/L [facility]: [address] [facility] Blood venous Normal Alkaline Phosphatase 71 U/L 4 5-117 U/L [facility]: [address] [place] [address] Blood venous Normal Bilirubin,total 1.0 mg/dL 0.2 -1.0 mg/dL [facility]: [address] [place] [address] Blood venous Normal Total Protein 7.6 gm/dL 6.4-8 .2 gm/dL [facility]: [address] [place] [address] Blood venous Normal Albumin 3.9 gm/dL 3.2-5.2 gm/ dL [facility]: [address] [place] [address] Blood venous Normal Albumin/globulin Ratio 1.1 [facility]: [address] [place] [address] 04/07/2021 HbA1C (Hemoglobin a1C), Blood Normal Hemogl obin a1C 11.3 % [facility]: [address] [place] [address] High Estimated Average Glucose 278 mg/dL 60-110 mg/dL [facility]: [address] [place] [address] 04/07/2021 ESR (Erythrocyte Sedimentation Rate), Blood Nor mal Erythrocyte Sedimentation Rate 3 mm/HR 0-20 mm/HR [facility]: [address] [place] [address] 04/07/2021 Lupus Anticoagulant, Plasma Normal PTT Lupus Type Anticoag Screen 0.8 0-1.2 [facility]: [address] [place] [address] 04/07/2021 Protein Electrophoresis Panel, Serum or Plasma Normal Albumin % 60.8 % 55.8-66.1 % [facility]: [address] [place] [address] Normal Ttydt-2-Gdrbqzaw % 3.4 % 2.9-4.9 % [facility]: [address] [place] [address] Normal Bzbbm-4-Wgyjqxgzb % 10.3 % 7.1-11.8 % [facility]: [address] [place] [address] Normal Fghg-8-Ydcgcanpx % 5.5 % 4.7-7.2 % [facility]: [address] [place] [address] Normal Maeg-6-Hdfqwppoa % 5.7 % 3.2-6.5 % [facility]: [address] [place] [address] Normal Gamma Globulin % 14.3 % 11.1-18.8 % [facility]: [address] [place] [address] Normal Albumin 4.44 gm/dL 3.29-5.55 gm/dL F inal [facility]: [address] [place] [address] Normal Ridkd-9-Bfngmetyi 0.25 gm/dL 0.17-0. 41 gm/dL [facility]: [address] [place] [address] Normal Qtsno-8-Pxqgubykd 0.75 gm/dL 0.42-0. 99 gm/dL [facility]: [address] [place] [address] Normal Hipd-9-Ozotaplmi 0.40 gm/dL 0.28-0.6 0 gm/dL [facility]: [address] [place] [address] Normal Mguu-3-Jnldrjuin 0.42 gm/dL 0.19-0.5 5 gm/dL [facility]: [address] [place] [address] Normal Gamma Globulins 1.04 gm/dL 0.65-1.58 gm/dL [facility]: [address] [place] [address] Normal Total Protein 7.3 gm/dL 6.4-8.2 gm/d L [facility]: [address] [place] [address] Normal Spep Interpretation see comment [facility]: [address] [place] [address] Normal Spep Pathologist Review rev'd by Anna foss [facility]: [address] [facility] 04/07/2021 Vitamin B12 + Folate, Serum or Blood Normal Vitamin B12 Level 493 pg/mL Final [facility] nter: [address] [facility] Normal Folate 17.7 NG/mL [facility]: [address] [facility] 04/07/2021 Rf (Rheumatoid Factor), Serum Normal Rheumatoid Factor Quant < 10.0 IU/mL <15.0 IU/mL [facility] nter: [address] [facility] 04/07/2021 Vitamin E Low Vitamin E(alpha Tocopherol ) 6.2 mg/L 7.0-25.1 mg/L [facility]: [address] [facility] Normal Vitamin E(gamma Tocopherol) 0.7 mg/L 0.5-5.5 mg/L [facility]: [address] [facility] 04/07/2021 Vitamin B1 (Thiamine), Blood Normal Vitamin B1 Level Whole Blood 134.8 nmol/L 66.5-200.0 nmol/L [facility]: [address] [facility] 04/07/2021 Vitamin B6 (Pyridoxine), Plasma Normal Vitamin B6,Pyridoxal Phosphate 13.4 ug/L 5.3-46.7 ug/L [facility] Center: [address] [facility] 04/07/2021 WILLIAM (Antinuclear Antibodies) Screen, Serum Nor mal Antinuclear Antibodies Direct negative negative [facility] Center: [address] [facility] 03/10/2021 Hemoglobin a1C, Fingerstick ABNORMAL Hba1C 13. 2 % Final [facility]: [address] [facility] 03/09/2021 CBC W/ Auto Diff Blood venous Normal White Blood C ount 6.3 10 4.0-10.0 10 [facility]: [address] [facility] Blood venous Normal Red Blood Count 5.76 10 4.30- 6.10 10 [facility]: [address] [facility] Blood venous High Hemoglobin 18.4 g/dL 13.5-17. 5 g/dL [facility]: [address] [place] [address] Blood venous Normal Hematocrit 51.9 % 42.0-52.0 % [facility]: [address] [place] [address] Blood venous Normal Mean Corpuscular Volume 90.1 fL 80.0-96.0 fL [facility]: [address] [place] [address] venous Normal Mean Corpuscular Hemoglob in 31.9 pg 27.0-33.0 pg [facility]: [address] [place] [address] Blood venous Normal Mean Corpuscular HGB Conc 35.5 g/dL 32.0-36.5 g/dL [facility]: [address] [place] [address] Blood venous Normal Red Cell Distribution Wid th 12.7 % 11.5-14.5 % [facility]: [address] [place] [address] Blood venous Normal Platelet Count, Automated 171 10 150-450 10 [facility]: [address] [place] [address] Blood venous Normal Neutrophils % 59.4 % 36.0-66. 0 % [facility]: [address] [place] [address] Blood venous Normal Lymph % 28.3 % 24.0-44.0 % [facility]: [address] [place] [address] Blood venous High [place] % 9.4 % 2.0-8.0 % [facility]: [address] [place] [address] Blood venous Normal Eos % 1.8 % 0.0-3.0 % [facility]: [address] [place] [address] Blood venous Normal Baso % 0.5 % 0.0-1.0 % [facility]: [address] [place] [address] Blood venous Normal Immature Granulocyte % 0.6 % 0-3.0 % [facility]: [address] [place] [address] Blood venous Normal Nucleated Red Blood Cell % 0. 0 % 0-0 % [facility]: [address] [place] [address] Blood venous Normal Neutrophils # 3.7 10 1.5-8.5 10 [facility]: [address] [place] [address] Blood venous Normal Lymph # 1.8 10 1.5-5.0 10 [facility]: [address] [place] [address] Blood venous Normal [place] # 0.6 10 0.0-0.[address] [facility]: [address] [place] [address] Blood venous Normal Eos # 0.1 10 0.0-0.5 10 [facility]: [address] [place] [address] Blood venous Normal Baso # 0.0 10 0.0-0.[address] [facility]: [address] [place] [address] 03/09/2021 CMP, Serum or Plasma Blood venous High Glu cose, Fasting 326 mg/dL 70-100 mg/dL [facility] nter: [address] [place] [address] Blood venous Normal Blood Urea Nitrogen 15 mg/dL 7-18 mg/dL [facility]: [address] [place] [address] Blood venous Normal Creatinine for GFR 1.04 mg/dL 0.70-1.30 mg/dL [facility]: [address] [place] [address] Blood venous Normal Glomerular Filtration Rate > 60.0 >56 [facility]: [address] [place] [address] Blood venous Normal Sodium Level 137 mEq/L 136-14 5 mEq/L [facility]: [address] [place] [address] Blood venous Normal Potassium Serum 4.3 mEq/L 3.5 -5.1 mEq/L [facility]: [address] [place] [address] Blood venous Normal Chloride Level 102 mEq/L 98-1 07 mEq/L [facility]: [address] [place] [address] Blood venous Normal Carbon Dioxide Level 31 mEq/L 21-32 mEq/L [facility]: [address] [place] [address] Blood venous Low Anion Gap 4 mEq/L 8-16 mEq/L [facility]: [address] [place] [address] Blood venous Normal Calcium Level 9.3 mg/dL 8.5-1 0.1 mg/dL [facility]: [address] [place] [address] Blood venous Normal AST/SGOT 11 U/L 7-37 U/L Amanda l [facility]: [address] [facility] Blood venous Normal ALT/SGPT 29 U/L 12-78 U/L [facility]: [address] [facility] Blood venous Normal Alkaline Phosphatase 74 U/L 4 5-117 U/L [facility]: [address] [facility] Blood venous High Bilirubin,total 1.1 mg/dL 0.2 -1.0 mg/dL [facility]: [address] [facility] Blood venous Normal Total Protein 7.9 gm/dL 6.4-8 .2 gm/dL [facility]: [address] [place] [address] Blood venous Normal Albumin 4.2 gm/dL 3.2-5.2 gm/ dL [facility]: [address] [place] [address] Blood venous Normal Albumin/globulin Ratio 1.1 [facility]: [address] [place] [address] 03/09/2021 Lipid Panel, Blood Blood venous High Trigl ycerides Level 176 mg/dL <150 mg/dL [facility] nter: [address] [facility] Blood venous Normal Cholesterol Level 145 mg/dL < 200 mg/dL [facility]: [address] [place] [address] Blood venous Normal HDL Cholesterol 47 mg/dL >40 mg/dL [facility]: [address] [place] [address] Blood venous Normal LDL Cholesterol 63 mg/dL <100 mg/dL [facility]: [address] [facility] Blood venous Normal Non-hdl-c 98 mg/dL [facility]: [address] [facility] Blood venous Normal Cholesterol Risk Ratio 3.085 <5 [facility]: [address] [place] [address] 03/09/2021 Microalbumin, Urine Urine Normal Creatinine, Urin e 52.7 mg/dL [facility]: [address] [facility] Urine Normal Malb Urine Siemens 35.3 mg/L [facility]: [facility] Urine High Jesse/creat Ratio 66.9 mcg/mg 0.0-30.0 mcg/mg Final [facility]: [address] [facility] 02/15/2021 SARS CoV 2 RdRp Gene, QL Probe, Respiratory Spec imen Nasopharyngeal Normal Sars-cov-2 negative negative Final [facility]: [address] [place] [address] 09/28/2020 HbA1C (Hemoglobin a1C), Blood High Hba1C 11. 4 % Final Past Encounters 06/28/2021 Type II Diabetes Mellitus Uncontrolled; Blood in Urine; Lower Urinary Tract Symptoms Due to Benign Prostatic Hypertrophy; Bipolar Disorder Jana Wylie PA-C: [address] [place] [phone], Ph. 04/25/2021 Gonzalo Motta MD: [address] [place] [phone], Ph. 03/21/2021 Type 2 Diabetes Mellitus without Complication; Bipolar Disorder; Hyperlipidemia Jana Wylie PA-C: [address] [place] [phone], Ph. 03/10/2021 Type II Diabetes Mellitus Uncontrolled; Lower Urinary Tract Symptoms Due to Benign Prostatic Hypertrophy; Hyperlipidemia; Bipolar Disorder; Body Mass Index 25-29 - Overweight Jana Wylie PA-C: [address] [place] [phone], Ph. 03/09/2021 Jana Wylie PA-C: [address] [place] [phone], Ph. 02/21/2021 Gonzalo Motta MD: [address] [place] [phone], Ph. 02/15/2021 Type II Diabetes Mellitus Uncontrolled; Exposure to SARS-CoV-2; Raised Prostate Specific Antigen; Bipolar Disorder Jana Wylie PA-C: [address] [place] [phone], Ph. 09/30/2020 Bipolar Disorder; Excessive Sweating; Chest Pain; Type II Diabetes Mellitus Uncontrolled; Lower Urinary Tract Symptoms Due to Benign Prostatic Hypertrophy Jana Wylie PA-C: [address] [place] [phone], Ph. Social History Tobacco Smoking Status Never Smoker Vaccine List None recorded. Plan of Care Patient Instructions Contact Dr. Hagan's office (your urologis t) to schedule a follow up appointment regarding your prostate concerns and contact us if you need a new referral. 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 We have referred you to Kathia, our adaptive physical educator, to help you better manage your diabetes. She will be calling you. We will contact you about your cardiology appointment. Reminders Provider Appointments None recorded. Lab None recorded. Referral None recorded. Procedures None recorded. Surgeries None recorded. Imaging None recorded. Vitals 06/28/2021 11:00AM ESTABLISHED [id number] Height Blood Pressure 68 in 145/81 mm[Hg] 04/25/2021 08:00AM NURSE LAB COLLECTION Height 68 in 03/21/2021 09:00AM PROVIDER REQUESTED Height Weight BMI Blood Pressure 68 in 169 lbs 16 oz 25.8 kg/m2 120/79 mm[Hg] 03/10/2021 08:00AM ESTABLISHED [id number] Height Weight BMI Blood Pressure 68 in 169 lbs 16 oz 25.8 kg/m2 132/87 mm[Hg] 03/09/2021 08:30AM NURSE LAB COLLECTION Height 68 in 02/15/2021 08:00AM ESTABLISHED [id number] Height Weight BMI Blood Pressure 68 in 172 lbs 2 oz 26.2 kg/m2 124/72 mm[Hg] 09/30/2020 08:20AM ANNUAL EXAM Height Weight BMI Blood Pressure 68 in 169 lbs 6 oz 25.8 kg/m2 130/82 mm[Hg]
--- OUTSIDE RECORDS SUMMARY | 2021-08-31 13:53 | CCD ---
Author Organization Unknown Address [address] [place] [address] Phone [phone] Care Team Providers Care Inspector Final Assembly Electrical Name Role Phone Jana Wylie Unavailable Unavailable Allergies Code Code System Name Reaction Severity Status Onset NKDA Notes: seasonal allergies. Medications Name Status Start Date Stop Date acyclovir 200 mg capsule Completed 021 atorvastatin 10 mg tablet Completed 2020 atorvastatin 20 mg tablet TK 1 T PO QD Completed 09/30/2020 cephalexin 500 mg capsule Completed 2020 cyclobenzaprine 5 mg tablet TAKE ONE TABLET BY MOUTH THREE TIMES DAILY NEEDED FOR MUSCLE SPASMS Completed 02/15/2021 gabapentin 300 mg capsule TAKE 1 CAPSULE BY MOUTH THREE TIMES DAILY Completed 02/15/2021 Humalog KwikPen (U-100) Insulin 100 unit/mL subcutaneous Complet ed 09/30/2020 Icy Hot 30 %-10 % topical stick Active Not available Januvia 100 mg tablet Take 1 tablet every day by oral route. Active Not available Januvia 25 mg tablet Completed 02/15/2021 Januvia 50 mg tablet Completed 08/25/2021 naproxen 500 mg tablet TK 1 T PO BID P Completed 09/30/2020 OneTouch Verio test strips USE TO TEST YOUR BLOOD GLUCOSE TWICE DAILY Active Not available Suprep Bowel Prep Kit 17.5 gram-3.13 gra m-1.6 gram oral solution MX AND DRK UTD Completed 09/30/2020 Tounidia SoloStar U-300 Insulin 300 unit/m L (1.5 mL) [...] Fingerstick ABNORMAL Hba1C 10. 4 % Final [facility]: [address] [facility] 04/25/2021 CMP, Serum or Plasma Blood venous High Glu cose, Fasting 382 mg/dL 70-100 mg/dL [facility] nter: [address] [facility] Blood venous High Blood Urea Nitrogen 20 mg/dL 7-18 mg/dL [facility]: [address] [facility] Blood venous Normal Creatinine for GFR 1.19 mg/dL 0.70-1.30 mg/dL [facility]: [address] [facility] Blood venous Normal Glomerular Filtration Rate > 60.0 >56 [facility]: [address] [facility] Blood venous Low Sodium Level 135 mEq/L 136-14 5 mEq/L [facility]: [address] [facility] Blood venous Normal Potassium Serum 4.5 mEq/L 3.5 -5.1 mEq/L [facility]: [address] [facility] Blood venous Normal Chloride Level 100 mEq/L 98-1 07 mEq/L [facility]: [address] [facility] Blood venous Normal Carbon Dioxide Level 27 mEq/L 21-32 mEq/L [facility]: 0 [facility] Blood venous Normal Anion Gap 8 mEq/L 8-16 mEq/L [facility]: [address] [place] [address] Blood venous Normal Calcium Level 9.3 mg/dL 8.5-1 0.1 mg/dL [facility]: [address] [facility] Blood venous Normal AST/SGOT 9 U/L 7-37 U/L [facility]: [address] [place] [address] Blood venous Normal ALT/SGPT 26 U/L 12-78 U/L [facility]: [address] [place] [address] Blood venous Normal Alkaline Phosphatase 71 U/L 4 5-117 U/L [facility]: [address] [place] [address] Blood venous Normal Bilirubin,total 1.0 mg/dL 0.2 -1.0 mg/dL [facility]: 0 [facility] Blood venous Normal Total Protein 7.6 gm/dL 6.4-8 .2 gm/dL [facility]: [address] [place] [address] Blood venous Normal Albumin 3.9 gm/dL 3.2-5.2 gm/ dL [facility]: [address] [place] [address] Blood venous Normal Albumin/globulin Ratio 1.1 [facility]: [address] [place] [address] 04/07/2021 HbA1C (Hemoglobin a1C), Blood Normal Hemogl obin a1C 11.3 % [facility]: [address] [place] [address] High Estimated Average Glucose 278 mg/dL 60-110 mg/dL [facility]: [address] [place] [address] 04/07/2021 ESR (Erythrocyte Sedimentation Rate), Blood Nor mal Erythrocyte Sedimentation Rate 3 mm/HR 0-20 mm/HR [facility] dical Center: [address] [place] [address] 04/07/2021 Lupus Anticoagulant, Plasma Normal PTT Lupus Type Anticoag Screen 0.8 0-1.2 [facility]: [address] [place] [address] 04/07/2021 Protein Electrophoresis Panel, Serum or Plasma Normal Albumin % 60.8 % 55.8-66.1 % [facility]: [address] [place] [address] Normal Gycud-6-Ynwizuma % 3.4 % 2.9-4.9 % [facility]: [address] [place] [address] Normal Bhbbv-3-Gzbhjrynb % 10.3 % 7.1-11.8 % [facility]: [address] [place] [address] Normal Hybw-3-Lhlwgvupi % 5.5 % 4.7-7.2 % [facility]: [address] [place] [address] Normal Fnoe-2-Fmdtznwgq % 5.7 % 3.2-6.5 % [facility]: [address] [place] [address] Normal Gamma Globulin % 14.3 % 11.1-18.8 % [facility]: [address] [place] [address] Normal Albumin 4.44 gm/dL 3.29-5.55 gm/dL F [facility]: [address] [place] [address] Normal Wweti-4-Dkbivivji 0.25 gm/dL 0.17-0. 41 gm/dL [facility]: [address] [place] [address] Normal Zphwj-8-Tmtnxrqta 0.75 gm/dL 0.42-0. 99 gm/dL [facility]: [address] [place] [address] Normal Huqz-0-Jjqefjuuy 0.40 gm/dL 0.28-0.6 0 gm/dL [facility]: [address] [place] [address] Normal Axrn-9-Esmhvdpnu 0.42 gm/dL 0.19-0.5 5 gm/dL [facility]: [address] [place] [address] Normal Gamma Globulins 1.04 gm/dL 0.65-1.58 gm/dL [facility]: [address] [place] [address] Normal Total Protein 7.3 gm/dL 6.4-8.2 gm/d L [facility]: [address] [place] [address] Normal Spep Interpretation see comment Final [facility]: [address] [facility] Normal Spep Pathologist Review rev'd by Anna foss [facility]: [address] [facility] 04/07/2021 Vitamin B12 + Folate, Serum or Blood Normal Vitamin B12 Level 493 pg/mL Final [facility] nter: [address] [facility] Normal Folate 17.7 NG/mL [facility]: [address] [facility] 04/07/2021 Rf (Rheumatoid Factor), Serum Normal Rheumatoid Factor Quant < 10.0 IU/mL <15.0 IU/mL [facility] nter: [address] [facility] 04/07/2021 Vitamin E Low Vitamin E(alpha Tocopherol ) 6.2 mg/L 7.0-25.1 mg/L [facility]: [address] [facility] Normal Vitamin E(gamma Tocopherol) 0.7 mg/L 0.5-5.5 mg/L [facility]: [address] [facility] 04/07/2021 Vitamin B1 (Thiamine), Blood Normal Vitamin B1 Level Whole Blood 134.8 nmol/L 66.5-200.0 nmol/L [facility] Center: [address] [facility] 04/07/2021 Vitamin B6 (Pyridoxine), Plasma Normal Vitamin B6,Pyridoxal Phosphate 13.4 ug/L 5.3-46.7 ug/L [facility] Center: [address] [facility] 04/07/2021 WILLIAM (Antinuclear Antibodies) Screen, Serum Nor mal Antinuclear Antibodies Direct negative negative Final [facility] ical Center: [address] [facility] 03/10/2021 Hemoglobin a1C, Fingerstick ABNORMAL Hba1C 13. 2 % Final [facility]: [address] [facility] 03/09/2021 CBC W/ Auto Diff Blood venous Normal White Blood C ount 6.3 10 4.0-10.0 10 [facility]: [address] [facility] Blood venous Normal Red Blood Count 5.76 10 4.30- 6.10 10 [facility]: [address] [place] [address] Blood venous High Hemoglobin 18.4 g/dL 13.5-17. 5 g/dL [facility]: [address] [place] [address] Blood venous Normal Hematocrit 51.9 % 42.0-52.0 % [facility]: [address] [place] [address] Blood venous Normal Mean Corpuscular Volume 90.1 fL 80.0-96.0 fL [facility]: [address] [place] [address] Blood venous Normal Mean Corpuscular Hemoglob in 31.9 pg 27.0-33.0 pg [facility]: [address] [place] [address] Blood venous Normal Mean Corpuscular HGB Conc 35.5 g/dL 32.0-36.5 g/dL [facility]: [address] [place] [address] Blood venous Normal Red Cell Distribution Wid th 12.7 % 11.5-14.5 % [facility]: [address] [place] [address] Blood venous Normal Platelet Count, Automated 171 10 150-450 10 [facility]: [address] [place] [address] Blood venous Normal Neutrophils % 59.4 % 36.0-66. 0 % [facility]: [address] [place] [address] Blood venous Normal Lymph % 28.3 % 24.0-44.0 % [facility]: [address] [place] [address] Blood venous High [place] % 9.4 % 2.0-8.0 % [facility]: [address] [place] [address] Blood venous Normal Eos % 1.8 % 0.0-3.0 % [facility]: [address] [place] [address] Blood venous Normal Baso % 0.5 % 0.0-1.0 % [facility]: [address] [place] [address] Blood venous Normal Immature Granulocyte % 0.6 % 0-3.0 % [facility]: [address] [place] [address] Blood venous Normal Nucleated Red Blood Cell % 0. 0 % 0-0 % [facility]: [address] [place] [address] Blood venous Normal Neutrophils # 3.7 10 1.5-8.5 10 [facility]: [address] [place] [address] Blood venous Normal Lymph # 1.8 10 1.5-5.0 10 [facility]: [address] [place] [address] Blood venous Normal [place] # 0.6 10 0.0-0.8 10 [facility]: [address] [place] [address] Blood venous Normal Eos # 0.1 10 0.0-0.5 10 [facility]: [address] [place] [address] Blood venous Normal Baso # 0.0 10 0.0-0.2 10 [facility]: [address] [place] [address] 03/09/2021 CMP, Serum or Plasma Blood venous High Glu cose, Fasting 326 mg/dL 70-100 mg/dL [facility] nter: [address] [place] [address] Blood venous Normal Blood Urea Nitrogen 15 mg/dL 7-18 mg/dL [facility]: [address] [place] [address] Blood venous Normal Creatinine for GFR 1.04 mg/dL 0.70-1.30 mg/dL [facility]: [address] [place] [address] Blood venous Normal Glomerular Filtration Rate > 60.0 >56 [facility]: [address] [place] [address] Blood venous Normal Sodium Level 137 mEq/L 136-14 5 mEq/L [facility]: [address] [place] [address] Blood venous Normal Potassium Serum 4.3 mEq/L 3.5 -5.1 mEq/L [facility]: [address] [place] [address] Blood venous Normal Chloride Level 102 mEq/L 98-1 07 mEq/L [facility]: [address] [place] [address] Blood venous Normal Carbon Dioxide Level 31 mEq/L 21-32 mEq/L [facility]: [address] [place] [address] Blood venous Low Anion Gap 4 mEq/L 8-16 mEq/L [facility]: [address] [place] [address] Blood venous Normal Calcium Level 9.3 mg/dL 8.5-1 0.1 mg/dL [facility]: [address] [facility] Blood venous Normal AST/SGOT 11 U/L 7-37 U/L Amanda [facility]: [address] [facility] Blood venous Normal ALT/SGPT 29 U/L 12-78 U/L [facility]: [address] [facility] Blood venous Normal Alkaline Phosphatase 74 U/L 4 5-117 U/L [facility]: [address] [facility] Blood venous High Bilirubin,total 1.1 mg/dL 0.2 -1.0 mg/dL [facility]: [address] [facility] Blood venous Normal Total Protein 7.9 gm/dL 6.4-8 .2 gm/dL [facility]: [address] [place] [address] Blood venous Normal Albumin 4.2 gm/dL 3.2-5.2 gm/ dL [facility]: [address] [place] [address] Blood venous Normal Albumin/globulin Ratio 1.1 [facility]: 0 [facility] 03/09/2021 Lipid Panel, Blood Blood venous High Trigl ycerides Level 176 mg/dL <150 mg/dL [facility] nter: [address] [facility] Blood venous Normal Cholesterol Level 145 mg/dL < 200 mg/dL [facility]: [address] [place] [address] Blood venous Normal HDL Cholesterol 47 mg/dL >40 mg/dL [facility]: [address] [facility] Blood venous Normal LDL Cholesterol 63 mg/dL <100 mg/dL [facility]: 0 [facility] Blood venous Normal Non-hdl-c 98 mg/dL [facility]: [address] [facility] Blood venous Normal Cholesterol Risk Ratio 3.085 <5 [facility]: 0 [facility] 03/09/2021 Microalbumin, Urine Urine Normal Creatinine, Urin e 52.7 mg/dL [facility]: [address] [facility] Urine Normal Malb Urine Siemens 35.3 mg/L [facility]: [address] [facility] Urine High Jesse/creat Ratio 66.9 mcg/mg 0.0-30.0 mcg/mg Final [facility]: [address] [facility] 02/15/2021 SARS CoV 2 RdRp Gene, QL Probe, Respiratory Spec imen Nasopharyngeal Normal Sars-cov-2 negative negative Final [facility]: [address] [facility] 09/28/2020 HbA1C (Hemoglobin a1C), Blood High Hba1C 11. 4 % Final Lipid Panel, Serum Blood venous Normal Cholesterol, T otal 114 mg/dL <200 mg/dL Final [facility]: [address] [facility] Blood venous Low HDL Cholesterol 38 mg/dL > or = 40 mg/dL Final [facility]: [address] [facility] Blood venous High Triglycerides 208 mg/dL <150 mg/dL Final [facility]: [address] [facility] Blood venous Normal LDL-cholesterol 49 mg/dL (floresita c) Final [facility]: [address] [facility] Blood venous Normal Chol/hdlc Ratio 3.0 (calc) <5 .0 (calc) Final [facility]: [address] [facility] Blood venous Normal Non HDL Cholesterol 76 m g/dL (calc) <130 mg/dL (calc) Final [facility]: [address] [facility] CMP, Serum or Plasma Blood venous High Glucose 308 mg/dL 65-99 mg/dL Final [facility]: [address] [facility] Blood venous Normal Urea Nitrogen (BUN) 15 mg/dL 7-25 mg/dL Final [facility]: [address] [place] [facility] Blood venous Normal Creatinine 0.93 mg/dL 0.70-1. 33 mg/dL Final [facility]: [address] [facility] Blood venous Normal eGFR Non-afr. Tanzanian 9 5 mL/min/1.73m2 > or = 60 mL/min/1.73m2 Final [facility]: [address] [facility] Blood venous Normal eGFR 11 0 mL/min/1.73m2 > or = 60 mL/min/1.73m2 Final [facility]: [address] [facility] Blood venous BUN/creatinine Ratio not applicable (calc) 6-22 (calc) Final [facility] Blood venous Normal Sodium 135 mmol/L 135-146 mmo l/L [facility]: [address] [facility] Blood venous Normal Potassium 4.0 mmol/L 3.5-5.3 mmol/L [facility]: [address] [facility] Blood venous Normal Chloride 102 mmol/L 98-110 mm ol/L Final [facility]: [address] [facility] Blood venous Normal Carbon Dioxide 27 mmol/L 20-3 2 mmol/L [facility]: [address] [facility] Blood venous Normal Calcium 8.9 mg/dL 8.6-10.3 mg /dL [facility]: [address] [facility] Blood venous Normal Protein, Total 6.8 g/dL 6.1-8 .1 g/dL [facility]: [address] [facility] Blood venous Normal Albumin 4.1 g/dL 3.6-5.1 g/dL [facility]: [address] [facility] Blood venous Normal Globulin 2.7 g/dL (calc) 1.9- 3.7 g/dL (calc) [facility]: [address] [facility] Blood venous Normal Albumin/globulin Ratio 1 .5 (calc) 1.0-2.5 (calc) [facility]: [address] [facility] Blood venous Normal Bilirubin, Total 0.9 mg/dL 0. 2-1.2 mg/dL Final [facility]: [address] [facility] Blood venous Normal Alkaline Phosphatase 73 U/L 3 5-144 U/L Final [facility]: [address] [facility] Blood venous Low Ast 9 U/L 10-35 U/L Final [facility]: [address] [facility] Blood venous Normal Alt 15 U/L 9-46 U/L Final uest [facility]: [address] [facility] Urinalysis Complete, Reflex Culture Urine Normal Col or yellow yellow Final [facility]: [address] [facility] Urine Normal Appearance clear clear Final Ques t [facility]: [address] [facility] Urine High Specific [place] 1.041 1.001-1.035 Final [facility]: [address] [facility] Urine Normal Ph 6.0 5.0-8.0 Final [facility] [address] [facility] Urine ABNORMAL Glucose 3+ negative Final Que [facility]: [address] [facility] Urine Normal Bilirubin negative negative Final Q uest [facility]: [address] [facility] Urine Normal Ketones negative negative Final Que [facility] [address] [facility] Urine Normal Occult Blood negative negative Final [facility]: [address] [place] [facility] Urine Normal Protein negative negative Final Que [facility]: [address] [facility] Urine Normal Nitrite negative negative Final [facility]: [address] [facility] [facility] Urine Normal Leukocyte Esterase negative negative Final [facility]: [address] [facility] Urine Normal Wbc none seen /hpf < or = 5 /hpf Fi nal [facility]: [address] [facility] Urine Normal Rbc none seen /hpf < or = 2 /hpf Fi nal [facility]: [address] [facility] Urine Normal Squamous Epithelial Cells none seen /hpf < or = 5 /hpf [facility]: [address] [facility] Urine Normal Bacteria none seen /hpf none seen /h pf Final [facility]: [address] [facility] Urine Normal Hyaline Cast none seen /lpf none see n /lpf [facility]: [address] [place] [facility] Culture, Urine Reflexive Urine Culture [facility]: [address] [facility] Past Encounters 08/25/2021 Administration of Diphtheria, Pertussis, and Tetanus Vaccine; Type 2 Diabetes Mellitus without Complication; Raised Prostate Specific Antigen; Bipolar Disorder Jana Wylie PA-C: [address] [place] [address], Ph. 07/05/2021 Blood in Urine; Type II Diabetes Mellitus Uncontrolled Jana Wylie PA-C: [address] [place] [address], Ph. 06/28/2021 Type II Diabetes Mellitus Uncontrolled; Blood in Urine; Lower Urinary Tract Symptoms Due to Benign Prostatic Hypertrophy; Bipolar Disorder Jana Wylie PA-C: [address] [place] [address], Ph. 04/25/2021 Gonzalo Motta MD: [address] [place] [address], Ph. 03/21/2021 Type 2 Diabetes Mellitus without Complication; Bipolar Disorder; Hyperlipidemia Jana Wylie PA-C: [address] [place] [address], Ph. 03/10/2021 Type II Diabetes Mellitus Uncontrolled; Lower Urinary Tract Symptoms Due to Benign Prostatic Hypertrophy; Hyperlipidemia; Bipolar Disorder; Body Mass Index 25-29 - Overweight Jana Wylie PA-C: [address] [place] [address], Ph. 03/09/2021 Jana Wylie PA-C: [address] [place] [address], Ph. 02/21/2021 Gonzalo Motta MD: [address] [place] [phone], Ph. 02/15/2021 Type II Diabetes Mellitus Uncontrolled; Exposure to SARS-CoV-2; Raised Prostate Specific Antigen; Bipolar Disorder Jana Wylie PA-C: [address] [place] [phone], Ph. 09/30/2020 Bipolar Disorder; Excessive Sweating; Chest Pain; Type II Diabetes Mellitus Uncontrolled; Lower Urinary Tract Symptoms Due to Benign Prostatic Hypertrophy Jana Wylie PA-C: [address] [place] [phone], Ph. Social History Tobacco Smoking Status Never Smoker Vaccine List Notes: Pt requests getting scheduled for covid vaccine. Plan of Care Patient Instructions Contact Dr. Hagan's office (your urologis t) to schedule a follow up appointment regarding your prostate concerns and contact us if you need a new referral. sales representative marine supplies your new diabetic medication, Victoza, from the pharmacy and bring it to your appointment on 03/17/21 so that we can teach you how to use it. We have referred you to Kathia, our band singer, to help you better manage your diabetes. She will be calling you. We will contact you about your cardiology appointment. Reminders Provider Appointments None recorded. Lab None recorded. Referral None recorded. Procedures None recorded. Surgeries None recorded. Imaging None recorded. Vitals 08/25/2021 03:20PM ESTABLISHED [id number] Height Weight BMI Blood Pressure 68 in 160 lbs 24.3 kg/m2 127/87 mm[Hg] 07/05/2021 09:30AM NURSE LAB COLLECTION Height 68 in 06/28/2021 11:00AM ESTABLISHED [id number] Height Blood Pressure 68 in 145/81 mm[Hg] 04/25/2021 08:00AM NURSE LAB COLLECTION Height 68 in 03/21/2021 09:00AM PROVIDER REQUESTED Height Weight BMI Blood Pressure 68 in 169 lbs 16 oz 25.8 kg/m2 120/79 mm[Hg] 03/10/2021 08:00AM ESTABLISHED [id number] Height Weight BMI Blood Pressure 68 in 169 lbs 16 oz 25.8 kg/m2 132/87 mm[Hg] 03/09/2021 08:30AM NURSE LAB COLLECTION Height 68 in 02/15/2021 08:00AM ESTABLISHED [id number] Height Weight BMI Blood Pressure 68 in 172 lbs 2 oz 26.2 kg/m2 124/72 mm[Hg] 09/30/2020 08:20AM ANNUAL EXAM Height Weight BMI Blood Pressure 68 in 169 lbs 6 oz 25.8 kg/m2 130/82 mm[Hg]
--- OUTSIDE RECORDS SUMMARY | 2021-08-31 13:53 | CCD ---
Author Organization Unknown Address [address] [place] [address] Phone [phone] Care Team Providers Care District Administrator Name Role Phone Jana Wylie Unavailable Unavailable Allergies Code Code System Name Reaction Severity Status Onset NKDA Notes: seasonal allergies. Medications Name Status Start Date Stop Date acyclovir 200 mg capsule Active Not shaun ilable atorvastatin 10 mg tablet Active Not av ailable atorvastatin 20 mg tablet TK 1 T PO QD Completed 09/30/2020 cephalexin 500 mg capsule Active Not av ailable cyclobenzaprine 5 mg tablet TAKE ONE TABLET [...] WITH VICTOZA PEN Active Not available Victoza 3-Natelmo 0.6 mg/0.1 mL (18 mg/3 mL) subcutaneous [...] Fingerstick ABNORMAL Hba1C 10. 4 % Final [facility] Medical: [address] [facility] 04/25/2021 CMP, Serum or Plasma Blood venous High Glu cose, Fasting 382 mg/dL 70-100 mg/dL [facility] nter: [address] [facility] Blood venous High Blood Urea Nitrogen 20 mg/dL 7-18 mg/dL [facility]: [address] [place] [address] Blood venous Normal Creatinine for GFR 1.19 mg/dL 0.70-1.30 mg/dL [facility]: [address] [facility] Blood venous Normal Glomerular Filtration Rate > 60.0 >56 [facility]: [address] [facility] Blood venous Low Sodium Level 135 mEq/L 136-14 5 mEq/L [facility]: 0 [facility] Blood venous Normal Potassium Serum 4.5 mEq/L 3.5 -5.1 mEq/L [facility]: [address] [facility] Blood venous Normal Chloride Level 100 mEq/L 98-1 07 mEq/L [facility]: [address] [facility] Blood venous Normal Carbon Dioxide Level 27 mEq/L 21-32 mEq/L [facility]: [address] [place] [address] Blood venous Normal Anion Gap 8 mEq/L 8-16 mEq/L [facility]: [address] [place] [address] Blood venous Normal Calcium Level 9.3 mg/dL 8.5-1 0.1 mg/dL [facility]: [address] [place] [address] Blood venous Normal AST/SGOT 9 U/L 7-37 U/L [facility]: [address] [place] [address] Blood venous Normal ALT/SGPT 26 U/L 12-78 U/L [facility]: [address] [place] [address] Blood venous Normal Alkaline Phosphatase 71 U/L 4 5-117 U/L [facility]: [address] [place] [address] Blood venous Normal Bilirubin,total 1.0 mg/dL 0.2 -1.0 mg/dL [facility]: [address] [place] [address] Blood venous Normal Total Protein 7.6 gm/dL 6.4-8 .2 gm/dL [facility]: [address] [place] [address] Blood venous Normal Albumin 3.9 gm/dL 3.2-5.2 gm/ dL [facility]: [address] [place] [address] Blood venous Normal Albumin/globulin Ratio 1.1 [facility]: [address] [place] [address] 04/07/2021 HbA1C (Hemoglobin a1C), Blood Normal Hemogl obin a1C 11.3 % [facility]: [address] [place] [address] High Estimated Average Glucose 278 mg/dL 60-110 mg/dL [facility]: [address] [place] [address] 04/07/2021 ESR (Erythrocyte Sedimentation Rate), Blood Nor mal Erythrocyte Sedimentation Rate 3 mm/HR 0-20 mm/HR [facility] dical Center: [address] [place] [address] 04/07/2021 Lupus Anticoagulant, Plasma Normal PTT Lupus Type Anticoag Screen 0.8 0-1.2 [facility] Center: [address] [place] [address] 04/07/2021 Protein Electrophoresis Panel, Serum or Plasma Normal Albumin % 60.8 % 55.8-66.1 % [facility]: [address] [place] [address] Normal Exjwk-5-Melzcgxf % 3.4 % 2.9-4.9 % [facility]: [address] [place] [address] Normal Lgihu-2-Htzsqikac % 10.3 % 7.1-11.8 % [facility]: [address] [place] [address] Normal Koed-9-Rzrtqnruy % 5.5 % 4.7-7.2 % [facility]: [address] [place] [address] Normal Bzhn-7-Zwivngimy % 5.7 % 3.2-6.5 % [facility]: [address] [place] [address] Normal Gamma Globulin % 14.3 % 11.1-18.8 % [facility]: [address] [place] [address] Normal Albumin 4.44 gm/dL 3.29-5.55 gm/dL F inal [facility]: [address] [place] [address] Normal Csxtw-3-Hrwhmpidf 0.25 gm/dL 0.17-0. 41 gm/dL [facility]: [address] [place] [address] Normal Mcunv-1-Wzfqtumxu 0.75 gm/dL 0.42-0. 99 gm/dL [facility]: [address] [place] [address] Normal Ipqu-0-Xqvwvgkvi 0.40 gm/dL 0.28-0.6 0 gm/dL [facility]: [address] [place] [address] Normal Pyyo-5-Doyyslxol 0.42 gm/dL 0.19-0.5 5 gm/dL [facility]: [address] [place] [address] Normal Gamma Globulins 1.04 gm/dL 0.65-1.58 gm/dL [facility]: [address] [place] [address] Normal Total Protein 7.3 gm/dL 6.4-8.2 gm/d L [facility]: [address] [place] [address] Normal Spep Interpretation see comment [facility]: [address] [place] [address] Normal Spep Pathologist Review rev'd by Anna foss [facility]: [address] [facility] 04/07/2021 Vitamin B12 + Folate, Serum or Blood Normal Vitamin B12 Level 493 pg/mL Final [facility] nter: [address] [facility] Normal Folate 17.7 NG/mL Final [facility]: [address] [facility] 04/07/2021 Rf (Rheumatoid Factor), Serum Normal Rheumatoid Factor Quant < 10.0 IU/mL <15.0 IU/mL [facility] nter: [address] [facility] 04/07/2021 Vitamin E Low Vitamin E(alpha Tocopherol ) 6.2 mg/L 7.0-25.1 mg/L [facility]: [address] [facility] Normal Vitamin E(gamma Tocopherol) 0.7 mg/L 0.5-5.5 mg/L [facility]: [address] [facility] 04/07/2021 Vitamin B1 (Thiamine), Blood Normal Vitamin B1 Level Whole Blood 134.8 nmol/L 66.5-200.0 nmol/L [facility] Center: [address] [facility] 04/07/2021 Vitamin B6 (Pyridoxine), Plasma Normal Vitamin B6,Pyridoxal Phosphate 13.4 ug/L 5.3-46.7 ug/L Final [facility] Center: [address] [facility] 04/07/2021 WILLIAM (Antinuclear Antibodies) Screen, Serum Nor mal Antinuclear Antibodies Direct negative negative Final [facility] ical Center: [address] [facility] 03/10/2021 Hemoglobin a1C, Fingerstick ABNORMAL Hba1C 13. 2 % Final [facility] Medical: [address] [facility] 03/09/2021 CBC W/ Auto Diff Blood venous Normal White Blood C ount 6.3 10 4.0-10.0 10 [facility]: [address] [facility] Blood venous Normal Red Blood Count 5.76 10 4.30- 6.10 10 [facility]: [address] [facility] Blood venous High Hemoglobin 18.4 g/dL 13.5-17. 5 g/dL [facility]: [address] [place] [address] Blood venous Normal Hematocrit 51.9 % 42.0-52.0 % [facility]: [address] [place] [address] Blood venous Normal Mean Corpuscular Volume 90.1 fL 80.0-96.0 fL [facility]: [address] [place] [address] Blood venous Normal Mean Corpuscular Hemoglob in 31.9 pg 27.0-33.0 pg [facility]: [address] [place] [address] Blood venous Normal Mean Corpuscular HGB Conc 35.5 g/dL 32.0-36.5 g/dL [facility]: [address] [place] [address] Blood venous Normal Red Cell Distribution Wid th 12.7 % 11.5-14.5 % [facility]: [address] [place] [address] Blood venous Normal Platelet Count, Automated 171 10 150-450 10 [facility]: [address] [place] [address] Blood venous Normal Neutrophils % 59.4 % 36.0-66. 0 % [facility]: [address] [place] [address] Blood venous Normal Lymph % 28.3 % 24.0-44.0 % [facility]: [address] [place] [address] Blood venous High Gilmer % 9.4 % 2.0-8.0 % [facility]: [address] [place] [address] Blood venous Normal Eos % 1.8 % 0.0-3.0 % [facility]: [address] [place] [address] Blood venous Normal Baso % 0.5 % 0.0-1.0 % [facility]: [address] [place] [address] Blood venous Normal Immature Granulocyte % 0.6 % 0-3.0 % [facility]: [address] [place] [address] Blood venous Normal Nucleated Red Blood Cell % 0. 0 % 0-0 % [facility]: [address] [place] [address] Blood venous Normal Neutrophils # 3.7 10 1.5-8.5 10 [facility]: [address] [place] [address] Blood venous Normal Lymph # 1.8 10 1.5-5.0 10 [facility]: 0 [facility] Blood venous Normal Gilmer # 0.6 10 0.0-0.8 10 [facility]: [address] [place] [address] Blood venous Normal Eos # 0.1 10 0.0-0.5 10 Final [facility]: [address] [place] [address] Blood venous Normal Baso # 0.0 10 0.0-0.2 10 [facility]: [address] [place] [address] 03/09/2021 CMP, Serum or Plasma Blood venous High Glu cose, Fasting 326 mg/dL 70-100 mg/dL [facility] nter: [address] [place] [address] Blood venous Normal Blood Urea Nitrogen 15 mg/dL 7-18 mg/dL [facility]: [address] [place] [address] Blood venous Normal Creatinine for GFR 1.04 mg/dL 0.70-1.30 mg/dL [facility]: [address] [place] [address] Blood venous Normal Glomerular Filtration Rate > 60.0 >56 [facility]: [address] [place] [address] Blood venous Normal Sodium Level 137 mEq/L 136-14 5 mEq/L [facility]: [address] [place] [address] Blood venous Normal Potassium Serum 4.3 mEq/L 3.5 -5.1 mEq/L [facility]: [address] [place] [address] Blood venous Normal Chloride Level 102 mEq/L 98-1 07 mEq/L [facility]: [address] [place] [address] Blood venous Normal Carbon Dioxide Level 31 mEq/L 21-32 mEq/L [facility]: [address] [place] [address] Blood venous Low Anion Gap 4 mEq/L 8-16 mEq/L [facility]: [address] [place] [address] Blood venous Normal Calcium Level 9.3 mg/dL 8.5-1 0.1 mg/dL [facility]: [address] [place] [address] Blood venous Normal AST/SGOT 11 U/L 7-37 U/L Amanda l [facility]: [address] [facility] Blood venous Normal ALT/SGPT 29 U/L 12-78 U/L [facility]: [address] [facility] Blood venous Normal Alkaline Phosphatase 74 U/L 4 5-117 U/L [facility]: [address] [facility] Blood venous High Bilirubin,total 1.1 mg/dL 0.2 -1.0 mg/dL [facility]: [address] [facility] Blood venous Normal Total Protein 7.9 gm/dL 6.4-8 .2 gm/dL [facility]: [address] [place] [address] Blood venous Normal Albumin 4.2 gm/dL 3.2-5.2 gm/ dL [facility]: [address] [place] [address] Blood venous Normal Albumin/globulin Ratio 1.1 [facility]: [address] [place] [address] 03/09/2021 Lipid Panel, Blood Blood venous High Trigl ycerides Level 176 mg/dL <150 mg/dL [facility] nter: [address] [facility] Blood venous Normal Cholesterol Level 145 mg/dL < 200 mg/dL [facility]: [address] [place] [address] Blood venous Normal HDL Cholesterol 47 mg/dL >40 mg/dL [facility]: [address] [place] [address] Blood venous Normal LDL Cholesterol 63 mg/dL <100 mg/dL [facility]: [address] [place] [address] Blood venous Normal Non-hdl-c 98 mg/dL [facility]: [address] [facility] Blood venous Normal Cholesterol Risk Ratio 3.085 <5 [facility]: 0 [facility] 03/09/2021 Microalbumin, Urine Urine Normal Creatinine, Urin e 52.7 mg/dL [facility]: 0 [facility] Urine Normal Malb Urine Siemens 35.3 mg/L [facility]: 0 [facility] Urine High Jesse/creat Ratio 66.9 mcg/mg 0.0-30.0 mcg/mg Final [facility]: [address] [facility] 02/15/2021 SARS CoV 2 RdRp Gene, QL Probe, Respiratory Spec imen Nasopharyngeal Normal Sars-cov-2 negative negative Final [facility] Medical: [address] [place] [address] 09/28/2020 HbA1C (Hemoglobin a1C), Blood High Hba1C 11. 4 % Final Past Encounters 07/05/2021 Blood in Urine; Type II Diabetes Mellitus Uncontrolled Jana Wylie PA-C: [address] [place] [phone], Ph. 06/28/2021 Type II Diabetes Mellitus Uncontrolled; Blood in Urine; Lower Urinary Tract Symptoms Due to Benign Prostatic Hypertrophy; Bipolar Disorder Jaan Wylie PA-C: [address] [place] [phone], Ph. 04/25/2021 Gonzalo Motta MD: [address] [place] [phone], Ph. 03/21/2021 Type 2 Diabetes Mellitus without Complication; Bipolar Disorder; Hyperlipidemia Jana Wylie PA-C: [address] [place] [phone], Ph. 03/10/2021 Type II Diabetes Mellitus Uncontrolled; Lower Urinary Tract Symptoms Due to Benign Prostatic Hypertrophy; Hyperlipidemia; Bipolar Disorder; Body Mass Index 25-29 - Overweight Jana Wylie PA-C: [address] [place] [phone], Ph. 03/09/2021 Jana Wylie PA-C: [address] [place] [phone], Ph. 02/21/2021 Gonzalo Motta MD: [address] [place] [phone], Ph. 02/15/2021 Type II Diabetes Mellitus Uncontrolled; Exposure to SARS-CoV-2; Raised Prostate Specific Antigen; Bipolar Disorder Jana Wylie PA-C: [address] [place] [address] [place] [phone], Ph. 09/30/2020 Bipolar Disorder; Excessive Sweating; Chest Pain; Type II Diabetes Mellitus Uncontrolled; Lower Urinary Tract Symptoms Due to Benign Prostatic Hypertrophy Jana Wylie PA-C: [address] [place] [phone], Ph. Social History Tobacco Smoking Status Never Smoker Vaccine List None recorded. Plan of Care Patient Instructions Contact Dr. Hagan's office (your urologis t) to schedule a follow up appointment regarding your prostate concerns and contact us if you need a new referral. supervisor customer services your new diabetic medication, Victoza, from the pharmacy and bring it to your appointment on 03/17/21 so that we can teach you how to use it. We have referred you to Kathia, our assistant health educator, to help you better manage your diabetes. She will be calling you. We will contact you about your cardiology appointment. Reminders Provider Appointments None recorded. Lab None recorded. Referral None recorded. Procedures None recorded. Surgeries None recorded. Imaging None recorded. Vitals 07/05/2021 09:30AM NURSE LAB COLLECTION Height 68 in 06/28/2021 11:00AM ESTABLISHED [id number] Height Blood Pressure 68 in 145/81 mm[Hg] 04/25/2021 08:00AM NURSE LAB COLLECTION Height 68 in 03/21/2021 09:00AM PROVIDER REQUESTED Height Weight BMI Blood Pressure 68 in 169 lbs 16 oz 25.8 kg/m2 120/79 mm[Hg] 03/10/2021 08:00AM ESTABLISHED [id number] Height Weight BMI Blood Pressure 68 in 169 lbs 16 oz 25.8 kg/m2 132/87 mm[Hg] 03/09/2021 08:30AM NURSE LAB COLLECTION Height 68 in 02/15/2021 08:00AM ESTABLISHED [id number] Height Weight BMI Blood Pressure 68 in 172 lbs 2 oz 26.2 kg/m2 124/72 mm[Hg] 09/30/2020 08:20AM ANNUAL EXAM Height Weight BMI Blood Pressure 68 in 169 lbs 6 oz 25.8 kg/m2 130/82 mm[Hg]
--- OUTSIDE RECORDS SUMMARY | 2021-08-31 13:53 | CCD ---
Author Greg Stevenson Organization Unknown Address [address] [place] [address] Phone Care Team Providers Care Material Processor Name Role Phone Jonel Harpmond PCP Allergies, Adverse Reactions, Alerts No Data in Section Problem List Concept Problem Description Status Start Date Created Date Resolv ed Date Snomed Code F29 Unspecified Schizophrenia Spectrum and Other Psychotic Disorder Active 06/07/2021 F43.9 Unspecified Trauma- and Stressor-Related Disorder Active 06/07/2021 Medications Rx Norm Medication Route Route Concept Start Date Stop Date Dosage Imer quency Duration Formula Strength Dosage Form Dosage Form Code Dosage Description Medication Id Account Npid Author First Name Author Last Name Taxonomy Code Taxonomy Desc Phone Number [phone] Latuda 07/19/2017 06/07/2021 once a day 80 mg tablet [id number] Elsa Berger [id number] Psychiatric/Mental Health [id number] Prozac 07/02/2018 06/07/2021 every morning 10 mg capsule as directed [id number] Elsa Berger [id number] Psychiat sarah/Mental Health [phone] Invega by mouth [id number] 06/07/2021 07/07/2021 at bedtime 30 1.5 mg tablet extended release 24hr [id number] Souleymane Harp [id number] Psychiatry [id number] Social History Social History Element Description Concept Effective Date Smoking Status Unknown if ever smoked [id number] Immunizations No Data in Section Vital Signs Encounter Date Height Ins Weight Lbs Bmi Bp Systolic Bp Diastoli c Oxygen Saturation Respiration Rate Pulse Rate Body Temp Head Circumference Heigh t Lying 06/07/2021 0.00 167.00 0.00 0 0 0.00 0 0 0.00 0.0 0. 00 Procedures Date Concept Id Description Targeted Site Concept Targeted Site Concept Type 06/07/2021 [id number] Telemed Diagnostic Eval C PT Patient has no history of implantable de vices Encounters Encounter Start Date End Date Encounter Type Description Diagnosis Di agnosis Desc Location Author First Name Author Last Name Npid Taxonomy Cod e Taxonomy Desc Phone Number Location Addr1 Location Addr2 Location [facility] Location Sta te Location [facility] [id number] 06/07/2021 06/07/2021 [id number] Telemed Diagnostic Eval F29 Unspecified Schizophrenia Spectrum and Other Psychotic Disorder [facility] [id number] Psychiatry [id number] [address] [address] Plan of Treatment No Data in Section Lab Results No Data in Section Instructions No Data in Section Functional Cognitive Status No Data in Section Insurance Providers Insurance Id Policy Effective Date Policy Thru Date Company N facundo [id number] 2012 MEDICARE [id number] MEDICAID
--- OUTSIDE RECORDS SUMMARY | 2021-08-31 13:53 | CCD ---
Author Author Greg Guajardo Sallie Organization Unknown Address [address] [place] [address] Phone Care Team Providers Care Insurance Coder Name Role Phone Sallie Guajardo PCP Allergies, Adverse Reactions, Alerts No Data in Section Problem List Concept Problem Description Status Start Date Created Date Resolv ed Date Snomed Code F29 Unspecified Schizophrenia Spectrum and Other Psychotic Disorder Active 06/28/2021 F43.9 Unspecified Trauma- and Stressor-Related Disorder Active 06/28/2021 Medications Rx Norm Medication Route Route Concept Start Date Stop Date Dosage Imer quency Duration Formula Strength Dosage Form Dosage Form Code Dosage Description Medication Id Account Npid Author First Name Author Last Name Taxonomy Code Taxonomy Desc Phone Number [phone] Invega by mouth [id number] 06/07/2021 07/07/2021 at bedtime 30 1.5 mg tablet extended release 24hr [id number] Souleymane Harp [id number] Psychiatry [id number] Social History Social History Element Description Concept Effective Date Smoking Status Unknown if ever smoked [id number] Immunizations No Data in Section Vital Signs No Data in Section Procedures Date Concept Id Description Targeted Site Concept Targeted Site Concept Type 06/28/2021 17212 Extended Individual Psychotherapy - 45 min CPT Patient has no history of implantable de vices Encounters Encounter Start Date End Date Encounter Type Description Diagnosis Di agnosis Desc Location Author First Name Author Last Name Npid Taxonomy Cod e Taxonomy Desc Phone Number Location Addr1 Location Addr2 Location [facility] Location [facility] Location Zip [id number] 06/28/2021 06/28/2021 66870 Extended Individual Psych otherapy - 45 min F29 Unspecified Schizophrenia Spectrum and Other Psychotic Disorder [facility] Casandra Rizo [id number] [id number] S ocial Worker [id number] [address] [facility] 1 [phone] Plan of Treatment No Data in Section Lab Results No Data in Section Instructions No Data in Section Insurance Providers Insurance Id Policy Effective Date Policy Thru Date Company N facundo [id number] 2012 MEDICARE [id number] MEDICAID
--- OUTSIDE RECORDS SUMMARY | 2021-08-31 13:55 | CCD ---
Author Author [facility] Organization [facility] Address Unknown Phone Unavailable Care Team Providers Care Lip And Gate Builder Name Role Phone Kim Sandhu Unavailable Unavailable Kim Sandhu Unavailable Unavailable Kim Sandhu Unavailable Unavailable Kim Sandhu Unavailable Unavailable Kim Sandhu Unavailable Unavailable Kim Sandhu Unavailable Unavailable Edson, Eligio MD Unavailable Unavailable Edson, Eligio MD Unavailable Unavailable Edson, Eligio MD Unavailable Unavailable Edson, Eligio MD Unavailable Unavailable Edson, Eligio MD Unavailable Unavailable Edson, Eligio MD Unavailable Unavailable Edson, Eligio MD Unavailable Unavailable Edson, Eligio MD Unavailable Unavailable Edson, Eligio MD Unavailable Unavailable Edson, Eligio MD Unavailable Unavailable Edson, Eligio MD Unavailable Unavailable Edson, Eligio MD Unavailable Unavailable Edson, Eligio MD Unavailable Unavailable Edson, Eligio MD Unavailable Unavailable Edson, Eligio MD Unavailable Unavailable Edson, Eligio MD Unavailable Unavailable Edson, Eligio MD Unavailable Unavailable Edson, Eligio MD Unavailable Unavailable Edson, Eligio MD Unavailable Unavailable Edson, Eligio MD Unavailable Unavailable Edson, Eligio MD Unavailable Unavailable Edson, Eligio MD Unavailable Unavailable Edson, Eligio MD Unavailable Unavailable Edson, Eligio MD Unavailable Unavailable Edson, Eligio MD Unavailable Unavailable Edson, Eligio MD Unavailable Unavailable Edson, Eligio MD Unavailable Unavailable Edson, Eligio MD Unavailable Unavailable Edson, Eligio MD Unavailable Unavailable Edson, Eligio MD Unavailable Unavailable Edson, Eligio MD Unavailable Unavailable Edson, Eligio MD Unavailable Unavailable Edson, Eligio MD Unavailable Unavailable Edson, Eligio MD Unavailable Unavailable Edson, Eligio MD Unavailable Unavailable Edson, Eligio MD Unavailable Unavailable Edson, Eligio MD Unavailable Unavailable Edson, Eligio MD Unavailable Unavailable Edson, Eligio MD Unavailable Unavailable Edson, Eligio MD Unavailable Unavailable Edson, Eligio MD Unavailable Unavailable Edson, Eligio MD Unavailable Unavailable Edson, Eligio MD Unavailable Unavailable Edson, Eligio MD Unavailable Unavailable Edson, Eligio MD Unavailable Unavailable Edson, Eligio MD Unavailable Unavailable Edson, Eligio MD Unavailable Unavailable Edson, Eligio MD Unavailable Unavailable Edson, Eligio MD Unavailable Unavailable Edson, Eligio MD Unavailable Unavailable Edson, Eligio MD Unavailable Unavailable Edson, Eligio MD Unavailable Unavailable Edson, Eligio MD Unavailable Unavailable Edson, Eligio MD Unavailable Unavailable Edson, Eligio MD Unavailable Unavailable Edson, Eligio MD Unavailable Unavailable Suraj Motta MD Unavailable Unavailable Suraj Motta MD Unavailable Unavailable Suraj Motta MD Unavailable Unavailable Suraj Motta MD Unavailable Unavailable Suraj Motta MD Unavailable Unavailable Suraj Motta MD Unavailable Unavailable Suraj Motta MD Unavailable Unavailable Suraj Motta MD Unavailable Unavailable Suraj Motta MD Unavailable Unavailable Suraj Motta MD Unavailable Unavailable Suraj Motta MD Unavailable Unavailable Suraj Motta MD Unavailable Unavailable Suraj Motta MD Unavailable Unavailable Suraj Motta MD Unavailable Unavailable Suraj Motta MD Unavailable Unavailable Suraj Motta MD Unavailable Unavailable Suraj Motta MD Unavailable Unavailable Suraj Motta MD Unavailable Unavailable Suraj Motta MD Unavailable Unavailable Suraj Motta MD Unavailable Unavailable Suraj Motta MD Unavailable Unavailable Suraj Motta MD Unavailable Unavailable Suraj Motta MD Unavailable Unavailable Suraj Motta MD Unavailable Unavailable Suraj Motta MD Unavailable Unavailable Suraj Motta MD Unavailable Unavailable Suraj Motta MD Unavailable Unavailable Suraj Motta MD Unavailable Unavailable Suraj Motta MD Unavailable Unavailable Suraj Motta MD Unavailable Unavailable Suraj Motta MD Unavailable Unavailable Suraj Motta MD Unavailable Unavailable Suraj Motta MD Unavailable Unavailable Suraj Motta MD Unavailable Unavailable Suraj Motta MD Unavailable Unavailable Suraj Motta MD Unavailable Unavailable Suraj Motta MD Unavailable Unavailable Suraj Motta MD Unavailable Unavailable Suraj Motta MD Unavailable Unavailable Suraj Motta MD Unavailable Unavailable Suraj Motta MD Unavailable Unavailable Suraj Motta MD Unavailable Unavailable Suraj Motta MD Unavailable Unavailable Suraj Motta MD Unavailable Unavailable Suraj Motta MD Unavailable Unavailable Suraj Motta MD Unavailable Unavailable Suraj Motta MD Unavailable Unavailable Suraj Motta MD Unavailable Unavailable Suraj Motta MD Unavailable Unavailable Suraj Motta MD Unavailable Unavailable Suraj Motta MD Unavailable Unavailable Suraj Motta MD Unavailable Unavailable Suraj Motta MD Unavailable Unavailable Suraj Motta MD Unavailable Unavailable Suraj Motta MD Unavailable Unavailable Suraj Motta MD Unavailable Unavailable Suraj Motta MD Unavailable Unavailable Suraj Motta MD Unavailable Unavailable Suraj Motta MD Unavailable Unavailable Suraj Motta MD Unavailable Unavailable Suraj Motta MD Unavailable Unavailable uSraj Motta MD Unavailable Unavailable Suraj Motta MD Unavailable Unavailable Suraj Motta MD Unavailable Unavailable Suraj Motta MD Unavailable Unavailable Suraj Motta MD Unavailable Unavailable Suraj Motta MD Unavailable Unavailable Suraj Motta MD Unavailable Unavailable Suraj Motta MD Unavailable Unavailable Suraj Motta MD Unavailable Unavailable Suraj Motta MD Unavailable Unavailable Suraj Motta MD Unavailable Unavailable Suraj Motta MD Unavailable Unavailable Suraj Motta MD Unavailable Unavailable Suraj Motta MD Unavailable Unavailable Suraj Motta MD Unavailable Unavailable Suraj Motta MD Unavailable Unavailable Suraj Motta MD Unavailable Unavailable Suraj Motta MD Unavailable Unavailable Suraj Motta MD Unavailable Unavailable Suraj Motta MD Unavailable Unavailable Suraj Motta MD Unavailable Unavailable Suraj Motta MD Unavailable Unavailable Suraj Motta MD Unavailable Unavailable Suraj Motta MD Unavailable Unavailable Suraj Motta MD Unavailable Unavailable Suraj Motta MD Unavailable Unavailable Suraj Motta MD Unavailable Unavailable Suraj Motta MD Unavailable Unavailable Suraj Motta MD Unavailable Unavailable Suraj Motta MD Unavailable Unavailable Suraj Motta MD Unavailable Unavailable Suraj Motta MD Unavailable Unavailable Sandra Chicas COLLECTION CORRESPONDENT COLLECTION CORRESPONDENT Unavailable Unavailable Carlos Harp MD Unavailable Unavailable Carlos Harp MD Unavailable Unavailable Carlos Harp MD Unavailable Unavailable MAJAK, R ЕКАТЕРИНА DPM Unavailable Unavailable MAJAK, R ЕКАТЕРИНА DPM Unavailable Unavailable MAJAK, R ЕКАТЕРИНА DPM Unavailable Unavailable MAJAK, R ЕКАТЕРИНА DPM Unavailable Unavailable MAJAK, R ЕКАТЕРИНА DPM Unavailable Unavailable MAJAK, R ЕКАТЕРИНА DPM Unavailable Unavailable MAJAK, R ЕКАТЕРИНА DPM Unavailable Unavailable MAJAK, R ЕКАТЕРИНА DPM Unavailable Unavailable MAJAK, R ЕКАТЕРИНА DPM Unavailable Unavailable MAJAK, R ЕКАТЕРИНА DPM Unavailable Unavailable MAJAK, R ЕКАТЕРИНА DPM Unavailable Unavailable MAJAK, R ЕКАТЕРИНА DPM Unavailable Unavailable MAJAK, R ЕКАТЕРИНА DPM Unavailable Unavailable MAJAK, R ЕКАТЕРИНА DPM Unavailable Unavailable MAJAK, R ЕКАТЕРИНА DPM Unavailable Unavailable MAJAK, R ЕКАТЕРИНА DPM Unavailable Unavailable MAJAK, R ЕКАТЕРИНА DPM Unavailable Unavailable MAJAK, R ЕКТАЕРИНА DPM Unavailable Unavailable MAJAK, R ЕКАТЕРИНА DPM Unavailable Unavailable MAJAK, R ЕКАТЕРИНА DPM Unavailable Unavailable MAJAK, R ЕКАТЕРИНА DPM Unavailable Unavailable MAJAK, R ЕКАТЕРИНА DPM Unavailable Unavailable MAJAK, R ЕКАТЕРИНА DPM Unavailable Unavailable MAJAK, R ЕКАТЕРИНА DPM Unavailable Unavailable MAJAK, R ЕКАТЕРИНА DPM Unavailable Unavailable MAJAK, R ЕКАТЕРИНА DPM Unavailable Unavailable MAJAK, R ЕКАТЕРИНА DPM Unavailable Unavailable MAJAK, R ЕКАТЕРИНА DPM Unavailable Unavailable MAJAK, R ЕКАТЕРИНА DPM Unavailable Unavailable MAJAK, R ЕКАТЕРИНА DPM Unavailable Unavailable MAJAK, R ЕКАТЕРИНА DPM Unavailable Unavailable Bakari YAN MD Unavailable Unavailable [...] Unavailable OBEN, T ELISE MD Unavailable Unavailable Rahel STYLES MD Unavailable Unavailable Rahel STYLES MD Unavailable Unavailable Rahel STYLES MD Unavailable Unavailable Rahel STYLES MD Unavailable Unavailable Rahel STYLES MD Unavailable Unavailable PARNES, Z ESME MD [...] Unavailable PARNES, Z ESME MD Unavailable Unavailable Goutremout, Sallie Unavailable Ellyn Fischer MD Unavailable Unavailable Ellyn Fischer MD Unavailable Unavailable Ellyn Fischer MD Unavailable Unavailable Ellyn Fischer MD Unavailable Unavailable Ellyn Fischer MD Unavailable Unavailable Ellyn Fischer MD Unavailable Unavailable Ellyn Fischer MD Unavailable Unavailable Ellyn Fischer MD Unavailable Unavailable Ellyn Fischer MD Unavailable Unavailable Ellyn Fischer MD Unavailable Unavailable Aaliyah F Glory MORALES Unavailable Unavailable Ellyn Fischer MD Unavailable Unavailable Aaliyah F Glory MORALES Unavailable Unavailable Kunnumpurath, F Glory MD Unavailable [...] F Glory MD Unavailable Unavailable Kunnumpurath, F Gloyr MD Unavailable Unavailable Kunnump[place]ath, F Glory MD Unavailable Unavailable Kunnumpurath, F Glory MD Unavailable Unavailable Kunnumpurath, F Glory MD Unavailable Unavailable Kunnumpurath, F Glory MD Unavailable Unavailable [place]unnump[place]ath, F Glory MD Unavailable Unavailable Kunnumpurath, F Glory MD Unavailable Unavailable Kunnumpurath, F Glory MD Unavailable Unavailable Kunnumpurath, F Glory MD Unavailable Unavailable Kunnumpurath, F Glory MD Unavailable Unavailable Kunnumpurath, F Glory MD Unavailable Unavailable Scordo M Jana PA Unavailable Unavailable Scordo M Jana PA Unavailable Unavailable Scordo M Jana PA Unavailable Unavailable Scordo M Jana PA Unavailable Unavailable Scordo, M Jana PA Unavailable Unavailable Scordo, M Jana PA Unavailable Unavailable Scordo M Jana PA Unavailable Unavailable Scordo, M [...] Unavailable Scordo, M Jana PA Unavailable Unavailable Re-disclosure Warning The records that [...] is protected by Article 27-F of the [facility] Public Health law. If you continue you may have access to information: Regarding HIV / AIDS; Provided by facilities licensed or operated by the [facility] Office of Mental Health; or Provided by the [facility] Office for People With Developmental Disabilities. If such information is present, then the following [facility] mandated warning applies: This information has [...] law may result in a fine or nursing home sentence or both. A general authorization for the release of medical or other information is NOT sufficient authorization for further disc losure. Allergies and Adverse Reactions Type Description Substance Reaction Status Data Source(s ) No Known Drug Allergies No Known Drug Allergies [facility] No Known Food Allergies No Known Food Allergies [facility] Propensity to adverse reactions seasonal seasonal [facility] Family History Family Member Name Family Member Gender Family Member Status Date o f Status Description Data Source(s) Unknown Male Problem [facility] ([facility]) Encounters Encounter Providers Location Date Indications Data Source(s ) Jana Wylie PA-C: [address], [place] [address], Ph. Attender: Jana PERDOMO [facility] Medical 08/25/2021 12:00:00 AM EDT [place] ([facility]) Jana Wylie PA-C: [address], [place] [address], Ph. Attender: Jana PERDOMO [facility] Medical 07/05/2021 12:00:00 AM EDT [place] ([facility]) Jana Wylie PA-C: [address], [place] [address], Ph. Attender: Jana PERDOMO [facility] Medical 07/05/2021 12:00:00 AM EDT [place] ([facility]) Extended Individual Psychotherapy - 45 min Attender: Taylor Guajardo [facility] 06/28/2021 01:45:00 AM EDT - 06/28/2021 01:45:00 AM EDT [place] ([facility]) Jana Wylie PA-C: [address], [place] [address], Ph. Attender: Jana PERDOMO [facility] Medical 06/28/2021 12:00:00 AM EDT [place] ([facility]) Jana Wylie PA-C: [address], [place] [address], Ph. Attender: Jana PERDOMO [facility] Medical 06/28/2021 12:00:00 AM EDT [place] ([facility]) Jana Wylie PA-C: [address], [place] [address], Ph. Attender: Jana PERDOMO [facility] Medical 06/28/2021 12:00:00 AM EDT [place] ([facility]) Attender: Sallie Guajardo 06/28/2021 12:00:0 0 AM EDT [facility] ([facility]) Outpatient [id number] 06/14/2021 11:48:03 AM EDT [facility] Telemed Diagnostic Eval Attender: Souleymane Harp MD [facility] santana Dutsy 06/07/2021 08:30:00 AM EDT - 06/07/2021 08:30:00 AM EDT [facility] ([facility]) Attender: Souleymane Harp MD 06/07/2021 12:00:00 AM EDT [facility] ([facility]) Outpatient Attender: Eligio Sandhu MD Main office - [place] 05/10/2021 01:15:00 PM EDT [facility] ([facility]) Gonzalo Motta MD: [address] [place] [address], Ph. Attender: Gonzalo Motta MD [facility] Medical 04/25/2021 12:00:00 AM EDT [place] ([facility]) Gonzalo Motta MD: [address] [place] [address], Ph. Attender: Gonzalo Motta MD [facility] Medical 04/25/2021 12:00:00 AM EDT [place] ([facility]) Gonzalo Motta MD: [address] [place] [address], Ph. Attender: Gonzalo Motta MD [facility] Medical 04/25/2021 12:00:00 AM EDT [place] ([facility]) Gonzalo Motta MD: [address] [place] [address], Ph. Attender: Gonzalo Motta MD [facility] Medical 04/25/2021 12:00:00 AM EDT [place] ([facility]) Outpatient Attender: Eligio Sandhu MD Main office - [place] 04/07/2021 03:15:00 PM EDT [facility] ([facility]) Outpatient Attender: ESME STYLES MDConsultant: Glory ann MD 04/06/2021 03:08:00 PM EDT - 04/06/2021 03:08:00 PM EDT [facility] Jana Wylie PA-C: [address] [place] [address], Ph. Attender: Jana PERDOMO [facility] Medical 03/21/2021 12:00:00 AM EDT [place] ([facility]) Jana Wylie PA-C: [address], [facility] [place] [address], Ph. Attender: Jana PERDOMO [facility] Medical 03/21/2021 12:00:00 AM EDT [place] ([facility]) Jana Wylie PA-C: [address], [place] [address], Ph. Attender: Jana PERDOMO [facility] Medical 03/21/2021 12:00:00 AM EDT [place] ([facility]) Jana Wylie PA-C: [address], [facility] [place] [facility] [place] [address], Ph. Attender: Jana PERDOMO [facility] Medical 03/21/2021 12:00:00 AM EDT [place] ([facility]) Jana Wylie PA-C: [address], [facility] [place] [facility] [place] [address], Ph. Attender: Jana PERDOMO [facility] Medical 03/21/2021 12:00:00 AM EDT [place] ([facility]) Outpatient Attender: ЕКАТЕРИНА WILSON [facility] Office 02/18 08:15:00 AM EDT [facility] ([facility] Outpatient Attender: ESME Caceres nder: ELISE YAN MDConsultant: Glory Fischer MD 03/11/2021 02:01:00 PM EDT - 03/11/2021 02:01:00 PM EDT [facility] Jana Wylie PA-C: [address], [place] [address], Ph. Attender: Jana PERDOMO [facility] Medical 03/10/2021 12:00:00 AM EDT [place] ([facility]) Jana Wylie PA-C: [address], [place] [address], Ph. Attender: Jana PERDOMO [facility] Medical 03/10/2021 12:00:00 AM EDT [place] ([facility]) Jana Wylie PA-C: [address], [place] [address], Ph. Attender: Jana PERDOMO [facility] Medical 03/10/2021 12:00:00 AM EDT [place] ([facility]) Jana Wylie PA-C: [address], [place] [address], Ph. Attender: Jana PERDOMO [facility] Medical 03/10/2021 12:00:00 AM EDT [place] ([facility]) Jana Wylie PA-C: [address], [place] [address], Ph. Attender: Jana PERDOMO [facility] Medical 03/10/2021 12:00:00 AM EDT [place] ([facility]) Jana Wylie PA-C: [address], [place] [address], Ph. Attender: Jana PERDOMO [facility] Medical 03/10/2021 12:00:00 AM EDT [place] ([facility]) Jana Wylie PA-C: [address], [place] [address], Ph. Attender: Jana PERDOMO [facility] Medical 03/09/2021 12:00:00 AM EDT [place] ([facility]) Jana Wylie PA-C: [address], [place] [address], Ph. Attender: Jana PERDOMO [facility] Medical 03/09/2021 12:00:00 AM EDT [place] ([facility]) Jana Wylie PA-C: [address], [place] [address], Ph. Attender: aJna PERDOMO [facility] Medical 03/09/2021 12:00:00 AM EDT [place] ([facility]) Jana Wylie PA-C: [address], [place] [address], Ph. Attender: Jana PERDOMO [facility] Medical 03/09/2021 12:00:00 AM EDT [place] ([facility]) Jana Wylie PA-C: [address], [place] [address], Ph. Attender: Jana PERDOMO [facility] Medical 03/09/2021 12:00:00 AM EDT [place] ([facility]) Jana Wylie PA-C: [address], [place] [address], Ph. Attender: Jana PERDOMO [facility] Medical 03/09/2021 12:00:00 AM EDT [place] ([facility]) Jana Wylie PA-C: [address], [place] [address], Ph. Attender: Jana PERDOMO [facility] Medical 03/09/2021 12:00:00 AM EDT [place] ([facility]) Gonzalo Motta MD: [address] [place] [address], Ph. Attender: Gonzalo Motta MD [facility] Medical 02/21/2021 12:00:00 AM EDT [place] ([facility]) Gonzalo Motta MD: [address] [place] [address], Ph. Attender: Gonzalo Motta MD [facility] Medical 02/21/2021 12:00:00 AM EDT [place] ([facility]) Gonzalo Motta MD: [address] [place] [address], Ph. Attender: Gonzalo Motta MD [facility] Medical 02/21/2021 12:00:00 AM EDT [place] ([facility]) Gonzalo Motta MD: [address] [place] [address], Ph. Attender: Gonzalo Motta MD [facility] Medical 02/21/2021 12:00:00 AM EDT [place] ([facility]) Gonzalo Motta MD: [address] [place] [address], Ph. Attender: Gonzalo Motta MD [facility] Medical 02/21/2021 12:00:00 AM EDT [place] ([facility]) Gonzalo Motta MD: [address] [place] [address], Ph. Attender: Gonzalo Motta MD [facility] Medical 02/21/2021 12:00:00 AM EDT [place] ([facility]) Gonzalo Motta MD: [address] [place] [address], Ph. Attender: Gonzalo Motta MD [facility] Medical 02/21/2021 12:00:00 AM EDT [place] ([facility]) Gonzalo Motta MD: [address], [place] [address], Ph. Attender: Gonzalo Motta MD [facility] Medical 02/21/2021 12:00:00 AM EDT [place] ([facility]) Jana Wylie PA-C: [address], [place] [address], Ph. Attender: Jana PERDOMO [facility] Medical 02/15/2021 12:00:00 AM EDT [place] ([facility]) Jana Wylie PA-C: [address], [place] [address], Ph. Attender: Jana PERDOMO [facility] Medical 02/15/2021 12:00:00 AM EDT [place] ([facility]) Jana Wylie PA-C: [address], [place] [address], Ph. Attender: Jana PERDOMO [facility] Medical 02/15/2021 12:00:00 AM EDT [place] ([facility]) Jana Wylie PA-C: [address], [place] [address], Ph. Attender: Jana PERDOMO [facility] Medical 02/15/2021 12:00:00 AM EDT [place] ([facility]) Jana Wylie PA-C: [address], [place] [address], Ph. Attender: Jana PERDOMO [facility] Medical 02/15/2021 12:00:00 AM EDT [place] ([facility]) Jana Wylie PA-C: [address], [place] [address], Ph. Attender: Jana PERDOMO [facility] Medical 02/15/2021 12:00:00 AM EDT [place] ([facility]) Jana Wlyie PA-C: [address], [place] [address], Ph. Attender: Jana PERDOMO [facility] Medical 02/15/2021 12:00:00 AM EDT [place] ([facility]) Jana Wylie PA-C: [address], [place] [address], Ph. Attender: Jana PERDOMO [facility] Medical 02/15/2021 12:00:00 AM EDT [place] ([facility]) Jana Wylie PA-C: [address], [place] [address], Ph. Attender: Jana PERDOMO [facility] Medical 02/15/2021 12:00:00 AM EDT [place] ([facility]) Outpatient Attender: MADHURI DHALIWAL 09/30/2020 08:32:01 A M EST [facility] Jana Wylie PA-C: [address], [place] [address], Ph. Attender: Jana PERDOMO [facility] Medical 09/30/2020 12:00:00 AM EST [facility]) Jana Wylie PA-C: [address], [place] [address], Ph. Attender: Jana PERDOMO [facility] Medical 09/30/2020 12:00:00 AM EST [place] ([facility]) Jana Wylie PA-C: [address], [place] [address], Ph. Attender: Jana PERDOMO [facility] Medical 09/30/2020 12:00:00 AM EST [place] ([facility]) Jana Wylie PA-C: [address], [place] [address], Ph. Attender: Jana PERDOMO [facility] Medical 09/30/2020 12:00:00 AM EST [place] ([facility]) Jana Wylie PA-C: [address], [place] [address], Ph. Attender: Jana PERDOMO [facility] Medical 09/30/2020 12:00:00 AM EST [place] ([facility]) Jana Wylie PA-C: [address], [place] [address], Ph. Attender: Jana PERDOMO [facility] Medical 09/30/2020 12:00:00 AM EST [place] ([facility]) Jana Wylie PA-C: [address], [place] [address], Ph. Attender: Jana PERDOMO [facility] Medical 09/30/2020 12:00:00 AM EST [place] ([facility]) Jana Wylie PA-C: [address], [place] [address], Ph. Attender: Jana PERDOMO [facility] Medical 09/30/2020 12:00:00 AM EST [place] ([facility]) Jana Wylie PA-C: [address] [place] [address], Ph. Attender: Jana PERDOMO [facility] 09/30/2020 12:00:00 AM EST [place] ([facility]) Jana Wylie PA-C: [address] , [place] [address], Ph. Attender: Jana PERDOMO [facility] 09/30/2020 12:00:00 AM EST [place] ([facility]) Outpatient Attender: ESME STYLES MDConsultant: Glory ann MD 10/15/2018 01:14:32 PM [facility] 10/15/2018 01:13:00 PM [facility] Functional Status Medications Medication Brand Name Start Date Product Form Dose Route Admi nistrative Instructions Pharmacy Instructions Status Indications Reaction Description Data Source(s) 24 HR paliperidone 1.5 MG Extended Release Oral Tablet [Inve ga] Invega 06/07/2021 12:00:00 AM EDT 1.5 mg by mouth completed <td ID="MedicationRxNorm_3">[id number]</td><td ID="MedicationMedication_3">Invega</td><td ID="MedicationRoute_3">by mouth</td><td ID="MedicationRouteConcept_3">[id number]</td><td ID="MedicationStartDate_3">06/07/2021</td><td ID="MedicationStopDate_3">07/07/2021</td><td ID="MedicationDosageFrequency_3">at bedtime</td><td ID="MedicationDuration_3">30</td><td ID="MedicationFormulaStrength_3">1.5 mg</td><td ID="MedicationDosageForm_3">tablet extended release 24hr</td><td ID="MedicationDosageFormCode_3"></td><td ID="MedicationDosageDescription_3"></td><td ID="MedicationMedicationId_3">[id number]</td><td ID="MedicationAccount_3">[id number]</td><td ID="MedicationNpid_3">[id number]</td><td ID="MedicationAuthorFirstName_3">Souleymane</td><td ID="MedicationAuthorLastName_3">Harp</td><td ID="MedicationTaxonomyCode_3">[id number]</td><td ID="MedicationTaxonomyDesc_3"> Psychiatry</td><td ID="MedicationPhoneNumber_3">[phone]</td> [facility]) 24 HR paliperidone 1.5 MG Extended Release Oral Tablet [Inve ga] Invega 06/07/2021 12:00:00 AM EDT 1.5 mg by mouth completed <td ID="MedicationRxNorm_1">[id number]</td><td ID="MedicationMedication_1">Invega</td><td ID="MedicationRoute_1">by mouth</td><td ID="MedicationRouteConcept_1">[id number]</td><td ID="MedicationStartDate_1">06/07/2021</td><td ID="MedicationStopDate_1">07/07/2021</td><td ID="MedicationDosageFrequency_1">at bedtime</td><td ID="MedicationDuration_1">30</td><td ID="MedicationFormulaStrength_1">1.5 mg</td><td ID="MedicationDosageForm_1">tablet extended release 24hr</td><td ID="MedicationDosageFormCode_1"></td><td ID="MedicationDosageDescription_1"></td><td ID="MedicationMedicationId_1">[id number]</td><td ID="MedicationAccount_1">[id number]</td><td ID="MedicationNpid_1">[id number]</td><td ID="MedicationAuthorFirstName_1">Souleymane</td><td ID="MedicationAuthorLastName_1">Harp</td><td ID="MedicationTaxonomyCode_1">[id number]</td><td ID="MedicationTaxonomyDesc_1"> Psychiatry</td><td ID="MedicationPhoneNumber_1">[phone]</td> [facility] ([facility]) Fluoxetine 10 MG Oral Capsule [Prozac] Prozac 07/02/2018 12:0 0:00 AM EDT 10 mg completed <td ID="Me dicationRxNorm_2">[id number]</td><td ID="MedicationMedication_2">Prozac</td><td ID="MedicationRoute_2"></td><td ID="MedicationRouteConcept_2"></td><td ID="MedicationStartDate_2">07/02/2018</td><td ID="MedicationStopDate_2">06/07/2021</td><td ID="MedicationDosageFrequency_2">every morning</td><td ID="MedicationDuration_2"></td><td ID="MedicationFormulaStrength_2">10 mg</td><td ID="MedicationDosageForm_2">capsule</td><td ID="MedicationDosageFormCode_2"></td><td ID="MedicationDosageDescription_2">as directed</td><td ID="MedicationMedicationId_2">[id number]</td><td ID="MedicationAccount_2">[id number]</td><td ID="MedicationNpid_2">[id number]</td><td ID="MedicationAuthorFirstName_2">Elsa</td><td ID="MedicationAuthorLastName_2">MacQueen</td><td ID="MedicationTaxonomyCode_2">[id number]</td><td ID="MedicationTaxonomyDesc_2">Psychiatric/Mental Health</td><td ID="MedicationPhoneNumber_2">[phone]</td> [facility] ([facility]) Lurasidone Hydrochloride 80 MG Oral Tablet [Latuda] Latuda 07/19/2017 12:00:00 AM EDT 80 mg completed <td ID ="MedicationRxNorm_1">[id number]</td><td ID="MedicationMedication_1">Latuda</td><td ID="MedicationRoute_1"></td><td ID="MedicationRouteConcept_1"></td><td ID="MedicationStartDate_1">07/19/2017</td><td ID="MedicationStopDate_1">06/07/2021</td><td ID="MedicationDosageFrequency_1">once a day</td><td ID="MedicationDuration_1"></td><td ID="MedicationFormulaStrength_1">80 mg</td><td ID="MedicationDosageForm_1">tablet</td><td ID="MedicationDosageFormCode_1"></td><td ID="MedicationDosageDescription_1"></td><td ID="MedicationMedicationId_1">[id number]</td><td ID="MedicationAccount_1">[id number]</td><td ID="MedicationNpid_1">[id number]</td><td ID="MedicationAuthorFirstName_1">Elsa</td><td ID="MedicationAuthorLastName_1">MacQueen</td><td ID="MedicationTaxonomyCode_1">[id number]</td><td ID="MedicationTaxonomyDesc_1">Psychiatric/Mental Health</td><td ID="MedicationPhoneNumber_1">[phone]</td> [facility] ([facility]) 0.5 ML dulaglutide 1.5 MG/ML Auto-Inject or [Trulicity] Trulicity 0.75 mg/0.5 mL subcutaneous pen injector Trulicity 0.75 mg/0.5 mL subcutaneous pen injector completed 0.5 ML dulaglu tide 1.5 MG/ML [facility] dulaglutide 1.5 MG/ML Auto-Inject or [Trulicity] Trulicity 0.75 mg/0.5 mL subcutaneous pen injector Trulicity 0.75 mg/0.5 mL subcutaneous pen injector completed 0.5 ML dulaglu tide 1.5 MG/ML Auto-Injector [Trulicity] [place] ([facility]) OneTouch Verio test strips U UTD TO TEST TID [id number] completed OneTouch Verio test strips [place] ([facility]) sitagliptin 25 MG Oral Tablet [Januvia] Januvia 25 mg tablet Januvia 25 mg tablet completed sitagliptin 25 MG Oral Tablet [Januvia] [place] ([facility]) Naproxen 500 MG Oral Tablet naproxen 500 mg tablet TK 1 T PO BID P naproxen 500 mg tablet TK 1 T PO BID P completed naproxen 500 MG Oral Tablet [place] ([facility]) sitagliptin 25 MG Oral Tablet [Januvia] Januvia 25 mg tablet Januvia 25 mg tablet completed sitagliptin 25 MG [facility] atorvastatin 20 MG Oral Tablet atorvastatin 20 mg tabl et TK 1 T PO QD atorvastatin 20 mg tablet TK 1 T PO QD completed atorvastatin 20 MG Oral Tablet [place] ([facility]) atorvastatin 20 MG Oral Tablet atorvastatin 20 mg tabl et TK 1 T PO QD atorvastatin 20 mg tablet TK 1 T PO QD completed atorvastatin 20 MG Oral Tablet [place] ([facility]) 0.5 ML dulaglutide 1.5 MG/ML Auto-Inject or [Trulicity] Trulicity 0.75 mg/0.5 mL subcutaneous pen injector Trulicity 0.75 mg/0.5 mL subcutaneous pen injector completed 0.5 ML dulaglu tide 1.5 MG/ML Auto-Injector [Trulicity] [place] ([facility]) 3 ML Insulin Lispro 100 UNT/ML Pen Injec tor [Humalog] Humalog KwikPen (U-100) Insulin 100 unit/mL subcutaneous Humalog KwikPen (U-100) Insulin 100 unit /mL subcutaneous completed 3 ML insulin lispro 100 UNT/ML Pen Injector [Humalog] [place] ([facility]) Naproxen 500 MG Oral Tablet naproxen 500 mg tablet TK 1 T PO BID P naproxen 500 mg tablet TK 1 T PO BID P completed naproxen 500 MG Oral Tablet [place] ([facility]) Suprep Bowel Prep Kit 17.5 gram-3.13 gram-1.6 gram ora l solution MX AND ANDREA UTD [id number] completed Suprep Bowel Prep Kit 17.5 gram-3.13 gram-1.6 gram oral solution [facility] ([facility]) atorvastatin 20 MG Oral Tablet atorvastatin 20 mg tabl et TK 1 T PO QD atorvastatin 20 mg tablet TK 1 T PO QD completed atorvastatin 20 MG Oral Tablet [place] ([facility]) Cyclobenzaprine hydrochloride 5 MG Oral Tablet cyclobenzaprine 5 mg tablet TAKE ONE TABLET BY MOUTH THREE TIMES DAILY NEEDED FOR MUSCLE SPASMS cyclobenzaprine 5 mg tablet TAKE ONE TABLET BY MOUTH THREE TIMES DAILY NEEDED FOR MUSCLE SPASMS completed cyclobenzaprine hydrochloride 5 MG Oral Tablet [facility] ([facility]) 0.5 ML dulaglutide 1.5 MG/ML Auto-Inject or [Trulicity] Trulicity 0.75 mg/0.5 mL subcutaneous pen injector Trulicity 0.75 mg/0.5 mL subcutaneous pen injector completed 0.5 ML dulaglu tide 1.5 MG/ML Auto-Injector [Trulicity] [place] ([facility]) 1.5 ML Insulin Glargine 300 UNT/ML Pen [...] insulin glargine 300 UNT/ML Pen Injector [Toujeo] [place] ([facility]) gabapentin 300 MG Oral Capsule gabapenti n 300 mg capsule TAKE 1 CAPSULE BY MOUTH THREE TIMES DAILY gabapentin 300 mg capsule TAKE 1 CAPSULE BY MOUTH THREE TIMES DAILY completed gabapentin 300 MG Oral Capsule [facility]) 0.5 ML dulaglutide 1.5 MG/ML Auto-Inject or [Trulicity] Trulicity 0.75 mg/0.5 mL subcutaneous pen injector Trulicity 0.75 mg/0.5 mL subcutaneous pen injector completed 0.5 ML dulaglu tide 1.5 MG/ML Auto-Injector [Trulicity] [place] ([facility]) 3 ML Insulin Lispro 100 UNT/ML Pen Injec tor [Humalog] Humalog KwikPen (U-100) Insulin 100 unit/mL subcutaneous Humalog KwikPen (U-100) Insulin 100 unit /mL subcutaneous completed 3 ML insulin lispro 100 UNT/ML Pen Injector [Humalog] [place] ([facility]) 1.5 ML Insulin Glargine 300 UNT/ML [...] glargine 300 UNT/ML Pen Injector [Toujeo] [place] ([facility]) 1.5 ML Insulin Glargine 300 UNT/ML [...] glargine 300 UNT/ML Pen Injector [Toujeo] [place] ([facility]) 1.5 ML Insulin Glargine 300 UNT/ML [...] glargine 300 UNT/ML Pen Injector [Toujeo] [place] ([facility]) OneTouch Verio test strips U UTD TO TEST TID [id number] completed OneTouch Verio test strips [facility] ([facility]) 1.5 ML Insulin Glargine 300 UNT/ML [...] glargine 300 UNT/ML Pen Injector [Toujeo] [facility] ([facility]) sitagliptin 25 MG Oral Tablet [Januvia] Januvia 25 mg tablet Januvia 25 mg tablet completed sitagliptin 25 MG Oral Tablet [Januvia] [place] ([facility]) Cyclobenzaprine hydrochloride 5 MG Oral Tablet cyclobenzaprine 5 mg tablet TAKE ONE TABLET BY MOUTH THREE TIMES DAILY NEEDED FOR MUSCLE SPASMS cyclobenzaprine 5 mg tablet TAKE ONE TABLET BY MOUTH THREE TIMES DAILY NEEDED FOR MUSCLE SPASMS completed cyclobenzaprine hydrochloride 5 MG Oral Tablet [place] ([facility]) Naproxen 500 MG Oral Tablet naproxen 500 mg tablet TK 1 T PO BID P naproxen 500 mg tablet TK 1 T PO BID P completed naproxen 500 MG Oral Tablet [place] ([facility]) 3 ML Insulin Lispro 100 UNT/ML Pen Injec tor [Humalog] Humalog KwikPen (U-100) Insulin 100 unit/mL subcutaneous Humalog KwikPen (U-100) Insulin 100 unit /mL subcutaneous completed 3 ML insulin lispro 100 UNT/ML Pen Injector [Humalog] [place] ([facility]) Naproxen 500 MG Oral Tablet naproxen 500 mg tablet TK 1 T PO BID P naproxen 500 mg tablet TK 1 T PO BID P completed naproxen 500 MG Oral Tablet [place] ([facility]) Suprep Bowel Prep Kit 17.5 gram-3.13 gram-1.6 gram ora l solution MX AND DRK UTD [id number] completed Suprep Bowel Prep Kit 17.5 gram-3.13 gram-1.6 gram oral solution [place] ([facility]) atorvastatin 20 MG Oral Tablet atorvastatin 20 mg tabl et TK 1 T PO QD atorvastatin 20 mg tablet TK 1 T PO QD completed atorvastatin 20 MG Oral Tablet [place] ([facility]) Acyclovir 200 MG Oral Capsule acyclovir 200 mg capsule acycl ovir 200 mg capsule completed acyclovir 200 MG Oral Capsule [place] ([facility]) sitagliptin 25 MG Oral Tablet [Januvia] Januvia 25 mg tablet Januvia 25 mg tablet completed sitagliptin 25 MG Oral Tablet [Januvia] [place] ([facility]) sitagliptin 25 MG Oral Tablet [Januvia] Januvia 25 mg tablet Januvia 25 mg tablet completed sitagliptin 25 MG Oral Tablet [Januvia] [place] ([facility]) gabapentin 300 MG Oral Capsule gabapenti n 300 mg capsule TAKE 1 CAPSULE BY MOUTH THREE TIMES DAILY gabapentin 300 mg capsule TAKE 1 CAPSULE BY MOUTH THREE TIMES DAILY completed gabapentin 300 MG Oral Capsule [place] ([facility]) 1.5 ML Insulin Glargine 300 UNT/ML Pen [...] insulin glargine 300 UNT/ML Pen Injector [Toujeo] [place] ([facility]) 0.5 ML dulaglutide 1.5 MG/ML Auto-Inject or [Trulicity] Trulicity 0.75 mg/0.5 mL subcutaneous pen injector Trulicity 0.75 mg/0.5 mL subcutaneous pen injector completed 0.5 ML dulaglu tide 1.5 MG/ML Auto-Injector [Trulicity] [place] ([facility]) gabapentin 300 MG Oral Capsule gabapenti n 300 mg capsule TAKE 1 CAPSULE BY MOUTH THREE TIMES DAILY gabapentin 300 mg capsule TAKE 1 CAPSULE BY MOUTH THREE TIMES DAILY completed gabapentin 300 MG Oral Capsule [place] ([facility]) sitagliptin 25 MG Oral Tablet [Januvia] Januvia 25 mg tablet Januvia 25 mg tablet completed sitagliptin 25 MG Oral Tablet [Januvia] [place] ([facility]) gabapentin 300 MG Oral Capsule gabapenti n 300 mg capsule TAKE 1 CAPSULE BY MOUTH THREE TIMES DAILY gabapentin 300 mg capsule TAKE 1 CAPSULE BY MOUTH THREE TIMES DAILY completed gabapentin 300 MG Oral Capsule [facility] ([facility]) Cephalexin 500 MG Oral Capsule cephalexin 500 mg capsu le cephalexin 500 mg capsule completed cephalexin 500 MG Oral Capsule [place] ([facility]) Suprep Bowel Prep Kit 17.5 gram-3.13 gram-1.6 gram ora l solution AND ANDREA UTD [id number] completed Suprep Bowel Prep Kit 17.5 gram-3.13 gram-1.6 gram oral solution [facility] ([facility]) 0.5 ML dulaglutide 1.5 MG/ML Auto-Inject or [Trulicity] Trulicity 0.75 mg/0.5 mL subcutaneous pen injector Trulicity 0.75 mg/0.5 mL subcutaneous pen injector completed 0.5 ML dulaglu tide 1.5 MG/ML Auto-Injector [Trulicity] [place] ([facility]) 3 ML Insulin Lispro 100 UNT/ML Pen Injec tor [Humalog] Humalog KwikPen (U-100) Insulin 100 unit/mL subcutaneous Humalog KwikPen (U-100) Insulin 100 unit /mL subcutaneous completed 3 ML insulin lispro 100 UNT/ML Pen Injector [Humalog] [place] ([facility]) 1.5 ML Insulin Glargine 300 UNT/ML [...] insulin glargine 300 UNT/ML Pen Injector [Toujeo] [place] ([facility]) atorvastatin 20 MG Oral Tablet atorvastatin 20 mg tabl et TK 1 T PO QD atorvastatin 20 mg tablet TK 1 T PO QD completed atorvastatin 20 MG Oral Tablet [place] ([facility]) Cyclobenzaprine hydrochloride 5 MG Oral Tablet cyclobenzaprine 5 mg tablet TAKE ONE TABLET BY MOUTH THREE TIMES DAILY NEEDED FOR MUSCLE SPASMS cyclobenzaprine 5 mg tablet TAKE ONE TABLET BY MOUTH THREE TIMES DAILY NEEDED FOR MUSCLE SPASMS completed cyclobenzaprine hydrochloride 5 MG Oral Tablet [place] ([facility]) Suprep Bowel Prep Kit 17.5 gram-3.13 gram-1.6 gram ora l solution MX AND DRK UTD [id number] completed Suprep Bowel Prep Kit 17.5 gram-3.13 gram-1.6 gram oral solution [place] ([facility]) sitagliptin 25 MG Oral Tablet [Januvia] Januvia 25 mg tablet Januvia 25 mg tablet completed sitagliptin 25 MG Oral Tablet [Januvia] [place] ([facility]) Naproxen 500 MG Oral Tablet naproxen 500 mg tablet TK 1 T PO BID P naproxen 500 mg tablet TK 1 T PO BID P completed naproxen 500 MG Oral Tablet [place] ([facility]) gabapentin 300 MG Oral Capsule gabapenti n 300 mg capsule TAKE 1 CAPSULE BY MOUTH THREE TIMES DAILY gabapentin 300 mg capsule TAKE 1 CAPSULE BY MOUTH THREE TIMES DAILY completed gabapentin 300 MG Oral Capsule [facility] ([facility]) atorvastatin 10 MG Oral Tablet atorvastatin 10 mg tabl et atorvastatin 10 mg tablet completed atorvastatin 10 MG Oral Tablet [facility] ([facility]) Naproxen 500 MG Oral Tablet naproxen 500 mg tablet TK 1 T PO BID P naproxen 500 mg tablet TK 1 T PO BID P completed naproxen 500 MG Oral Tablet [place] ([facility]) Suprep Bowel Prep Kit 17.5 gram-3.13 gram-1.6 gram ora l solution MX AND DRK UTD [id number] completed Suprep Bowel Prep Kit 17.5 gram-3.13 gram-1.6 gram oral solution [place] ([facility]) Suprep Bowel Prep Kit 17.5 gram-3.13 gram-1.6 gram ora l solution MX AND DRK UTD [id number] completed Suprep Bowel Prep Kit 17.5 gram-3.13 gram-1.6 gram oral solution [facility] ([facility]) OneTouch Verio test strips U UTD TO TEST TID [id number] completed OneTouch Verio test strips [place] ([facility]) 0.5 ML dulaglutide 1.5 MG/ML Auto-Inject or [Trulicity] Trulicity 0.75 mg/0.5 mL subcutaneous pen injector Trulicity 0.75 mg/0.5 mL subcutaneous pen injector completed 0.5 ML dulaglu tide 1.5 MG/ML Auto-Injector [Trulicity] [place] ([facility]) Suprep Bowel Prep Kit 17.5 gram-3.13 gram-1.6 gram ora l solution MX AND DRK UTD [id number] completed Suprep Bowel Prep Kit 17.5 gram-3.13 gram-1.6 gram oral solution [place] ([facility]) atorvastatin 20 MG Oral Tablet atorvastatin 20 mg tabl et TK 1 T PO QD atorvastatin 20 mg tablet TK 1 T PO QD completed atorvastatin 20 MG Oral Tablet [facility] ([facility]) 1.5 ML Insulin Glargine 300 UNT/ML Pen I njector [Toujeo] Toumalinao SoloStar U-300 Insulin 300 unit/mL (1.5 mL) subcutaneous pen INJECT 35 UNITS UNDER THE SKIN IN THE MORNING AND 45 UNITS IN THE EVENING Toujeo SoloStar U-300 Insulin 300 unit/mL (1.5 mL) subcutaneous pen INJECT 35 UNITS UNDER THE SKIN IN THE MORNING AND 45 UNITS IN THE EVENING completed 1.5 ML insulin glargine 300 UNT/ML Pen Injector [Toujeo] [place] ([facility]) sitagliptin 25 MG Oral Tablet [Januvia] Januvia 25 mg tablet Januvia 25 mg tablet completed sitagliptin 25 MG Oral Tablet [Januvia] [place] ([facility]) gabapentin 300 MG Oral Capsule gabapenti n 300 mg capsule TAKE 1 CAPSULE BY MOUTH THREE TIMES DAILY gabapentin 300 mg capsule TAKE 1 CAPSULE BY MOUTH THREE TIMES DAILY completed gabapentin 300 MG Oral Capsule [place] ([facility]) Naproxen 500 MG Oral Tablet naproxen 500 mg tablet TK 1 T PO BID P naproxen 500 mg tablet TK 1 T PO BID P completed naproxen 500 MG Oral Tablet [place] ([facility]) Naproxen 500 MG Oral Tablet naproxen 500 mg tablet TK 1 T PO BID P naproxen 500 mg tablet TK 1 T PO BID P completed naproxen 500 MG Oral Tablet [place] ([facility]) sitagliptin 50 MG Oral Tablet [Januvia] Januvia 50 mg tablet Januvia 50 mg tablet completed sitagliptin 50 MG Oral Tablet [Januvia] [place] ([facility]) sitagliptin 25 MG Oral Tablet [Januvia] Januvia 25 mg tablet Januvia 25 mg tablet completed sitagliptin 25 MG Oral Tablet [Januvia] [place] ([facility]) Cyclobenzaprine hydrochloride 5 MG Oral Tablet cyclobenzaprine 5 mg tablet TAKE ONE TABLET BY MOUTH THREE TIMES DAILY NEEDED FOR MUSCLE SPASMS cyclobenzaprine 5 mg tablet TAKE ONE TABLET BY MOUTH THREE TIMES DAILY NEEDED FOR MUSCLE SPASMS completed cyclobenzaprine hydrochloride 5 MG Oral Tablet [place] ([facility]) 3 ML Insulin Lispro 100 UNT/ML Pen Injec tor [Humalog] Humalog KwikPen (U-100) Insulin 100 unit/mL subcutaneous Humalog KwikPen (U-100) Insulin 100 unit /mL subcutaneous completed 3 ML insulin lispro 100 UNT/ML Pen Injector [Humalog] [place] ([facility]) Cyclobenzaprine hydrochloride 5 MG Oral Tablet cyclobenzaprine 5 mg tablet TAKE ONE TABLET BY MOUTH THREE TIMES DAILY NEEDED FOR MUSCLE SPASMS cyclobenzaprine 5 mg tablet TAKE ONE TABLET BY MOUTH THREE TIMES DAILY NEEDED FOR MUSCLE SPASMS completed cyclobenzaprine hydrochloride 5 MG Oral Tablet [place] ([facility]) 3 ML Insulin Lispro 100 UNT/ML Pen Injec tor [Humalog] Humalog KwikPen (U-100) Insulin 100 unit/mL subcutaneous Humalog KwikPen (U-100) Insulin 100 unit /mL subcutaneous completed 3 ML insulin lispro 100 UNT/ML Pen Injector [Humalog] [place] ([facility]) Cyclobenzaprine hydrochloride 5 MG Oral Tablet cyclobenzaprine 5 mg tablet TAKE ONE TABLET BY MOUTH THREE TIMES DAILY NEEDED FOR MUSCLE SPASMS cyclobenzaprine 5 mg tablet TAKE ONE TABLET BY MOUTH THREE TIMES DAILY NEEDED FOR MUSCLE SPASMS completed cyclobenzaprine hydrochloride 5 MG Oral Tablet [place] ([facility]) Cyclobenzaprine hydrochloride 5 MG Oral Tablet cyclobenzaprine 5 mg tablet TAKE ONE TABLET BY MOUTH THREE TIMES DAILY NEEDED FOR MUSCLE SPASMS cyclobenzaprine 5 mg tablet TAKE ONE TABLET BY MOUTH THREE TIMES DAILY NEEDED FOR MUSCLE SPASMS completed cyclobenzaprine hydrochloride 5 MG Oral Tablet [place] ([facility]) 3 ML Insulin Lispro 100 UNT/ML Pen Injec tor [Humalog] Humalog KwikPen (U-100) Insulin 100 unit/mL subcutaneous Humalog KwikPen (U-100) Insulin 100 unit /mL subcutaneous completed 3 ML insulin lispro 100 UNT/ML Pen Injector [Humalog] [place] ([facility]) Naproxen 500 MG Oral Tablet naproxen 500 mg tablet TK 1 T PO BID P naproxen 500 mg tablet TK 1 T PO BID P completed naproxen 500 MG Oral Tablet [place] ([facility]) Cyclobenzaprine hydrochloride 5 MG Oral Tablet cyclobenzaprine 5 mg tablet TK 1 T PO TID PRN FOR MUSCLE SPASMS cyclobenzaprine 5 mg tablet TK 1 T PO TI D PRN FOR MUSCLE SPASMS completed cyclobenzaprine hydrochloride 5 MG Oral Tablet [place] ([facility]) gabapentin 300 MG Oral Capsule gabapenti n 300 mg capsule TAKE 1 CAPSULE BY MOUTH THREE TIMES DAILY gabapentin 300 mg capsule TAKE 1 CAPSULE BY MOUTH THREE TIMES DAILY completed gabapentin 300 MG Oral Capsule [facility] ([facility]) 1.5 ML Insulin Glargine 300 UNT/ML Pen [...] glargine 300 UNT/ML Pen Injector [Toujeo] [place] ([facility]) 3 ML Insulin Lispro 100 UNT/ML Pen Injec tor [Humalog] Humalog KwikPen (U-100) Insulin 100 unit/mL subcutaneous Humalog KwikPen (U-100) Insulin 100 unit /mL subcutaneous completed 3 ML insulin lispro 100 UNT/ML Pen Injector [Humalog] [place] ([facility]) 1.5 ML Insulin Glargine 300 UNT/ML [...] glargine 300 UNT/ML Pen Injector [Toujeo] [place] ([facility]) atorvastatin 20 MG Oral Tablet atorvastatin 20 mg tabl et TK 1 T PO QD atorvastatin 20 mg tablet TK 1 T PO QD completed atorvastatin 20 MG Oral Tablet [place] ([facility]) Suprep Bowel Prep Kit 17.5 gram-3.13 gram-1.6 gram ora l solution AND ANDREA UTD [id number] completed Suprep Bowel Prep Kit 17.5 gram-3.13 gram-1.6 gram oral solution [facility] ([facility]) 0.5 ML dulaglutide 1.5 MG/ML Auto-Inject or [Trulicity] Trulicity 0.75 mg/0.5 mL subcutaneous pen injector Trulicity 0.75 mg/0.5 mL subcutaneous pen injector completed 0.5 ML dulaglu tide 1.5 MG/ML Auto-Injector [Trulicity] [place] ([facility]) gabapentin 300 MG Oral Capsule gabapenti n 300 mg capsule TAKE 1 CAPSULE BY MOUTH THREE TIMES DAILY gabapentin 300 mg capsule TAKE 1 CAPSULE BY MOUTH THREE TIMES DAILY completed gabapentin 300 MG Oral Capsule [place] ([facility]) Naproxen 500 MG Oral Tablet naproxen 500 mg tablet TK 1 T PO BID P naproxen 500 mg tablet TK 1 T PO BID P completed naproxen 500 MG Oral Tablet [place] ([facility]) atorvastatin 20 MG Oral Tablet atorvastatin 20 mg tabl et TK 1 T PO QD atorvastatin 20 mg tablet TK 1 T PO QD completed atorvastatin 20 MG Oral Tablet [place] ([facility]) Suprep Bowel Prep Kit 17.5 gram-3.13 gram-1.6 gram ora l solution MX AND DRK UTD [id number] completed Suprep Bowel Prep Kit 17.5 gram-3.13 gram-1.6 gram oral solution [place] ([facility]) 3 ML Insulin Lispro 100 UNT/ML Pen Injec tor [Humalog] Humalog KwikPen (U-100) Insulin 100 unit/mL subcutaneous Humalog KwikPen (U-100) Insulin 100 unit /mL subcutaneous completed 3 ML insulin lispro 100 UNT/ML Pen Injector [Humalog] [place] ([facility]) 0.5 ML dulaglutide 1.5 MG/ML Auto-Inject or [Trulicity] Trulicity 0.75 mg/0.5 mL subcutaneous pen injector Trulicity 0.75 mg/0.5 mL subcutaneous pen injector completed 0.5 ML dulaglu tide 1.5 MG/ML Auto-Injector [Trulicity] [facility] ([facility]) Cyclobenzaprine hydrochloride 5 MG Oral Tablet cyclobenzaprine 5 mg tablet TAKE ONE TABLET BY MOUTH THREE TIMES DAILY NEEDED FOR MUSCLE SPASMS cyclobenzaprine 5 mg tablet TAKE ONE TABLET BY MOUTH THREE TIMES DAILY NEEDED FOR MUSCLE SPASMS completed cyclobenzaprine hydrochloride 5 MG Oral Tablet [facility] ([facility]) atorvastatin 20 MG Oral Tablet atorvastatin 20 mg tabl et TK 1 T PO QD atorvastatin 20 mg tablet TK 1 T PO QD completed atorvastatin 20 MG Oral Tablet [facility] ([facility]) atorvastatin 20 MG Oral Tablet atorvastatin 20 mg tabl et TK 1 T PO QD atorvastatin 20 mg tablet TK 1 T PO QD completed atorvastatin 20 MG Oral Tablet [facility] ([facility]) Cyclobenzaprine hydrochloride 5 MG Oral Tablet cyclobenzaprine 5 mg tablet TAKE ONE TABLET BY MOUTH THREE TIMES DAILY NEEDED FOR MUSCLE SPASMS cyclobenzaprine 5 mg tablet TAKE ONE TABLET BY MOUTH THREE TIMES DAILY NEEDED FOR MUSCLE SPASMS completed cyclobenzaprine hydrochloride 5 MG Oral Tablet [facility] ([facility]) 3 ML Insulin Lispro 100 UNT/ML Pen Injec tor [Humalog] Humalog KwikPen (U-100) Insulin 100 unit/mL subcutaneous Humalog KwikPen (U-100) Insulin 100 unit /mL subcutaneous completed 3 ML insulin lispro 100 UNT/ML Pen Injector [Humalog] [facility] ([facility]) Suprep Bowel Prep Kit 17.5 gram-3.13 gram-1.6 gram ora l solution MX AND DRK UTD [id number] completed Suprep Bowel Prep Kit 17.5 gram-3.13 gram-1.6 gram oral solution [facility] ([facility]) gabapentin 300 MG Oral Capsule gabapenti n 300 mg capsule TAKE 1 CAPSULE BY MOUTH THREE TIMES DAILY gabapentin 300 mg capsule TAKE 1 CAPSULE BY MOUTH THREE TIMES DAILY completed gabapentin 300 MG Oral Capsule [facility] ([facility]) OneTouch Verio test strips U UTD TO TEST TID [id number] completed OneTouch Verio test strips [facility] ([facility]) Insurance Providers Payer name Policy type / Coverage type Policy ID Covered democrat ID Covered democrat's relationship to cortes Policy Cortes Plan Information MEDICARE [id number] [facility] [id number] MEDICARE A [id number] Self [id number] A Medicare P [id number] S [id number] A Medicaid S [id number] S [id number] Medicaid S [id number] S [id number] MEDICAID M [id number] Self [id number] MEDICAID [id number] Pushpa [id number] Medicare P [id number] S [id number] A MEDICAID [id number] SP [id number] MEDICARE PART A -O/P [id number] 18 [id number] MEDICARE CO [id number] 18 [id number] MEDICAID -RECURRING [id number] MEDICARE -RECURRING [id number] 18 [id number] MEDICAID -O/P [id number] MEDICAID [facility] [id number] 18 A [id number] MEDICARE PART A [facility] [id number] 18 [id number] Medicare Commercial [id number] Self [id number] Medicaid Commercial [id number] Self [id number] [place] Part [place] [id number] Self [id number] Medicaid Commercial [id number] Self [id number] Medicare Commercial [id number] Self [id number] Medicaid Commercial [id number] Self [id number] [place] [id number] Self [id number] Medicaid Commercial [id number] Self [id number] Medicare Commercial [id number] [id number] Self [id number] Medicaid Commercial [id number] Self [id number] [place] [id number] Self [id number] Medicaid Commercial [id number] Self [id number] Medicare Dme Medigap Part B [id number] Self [id number] Medicaid Medicaid [id number] [id number] Self [id number] Medicare Medicare Primary [id number] [id number] Self [id number] Medicare Dme Medigap Part B [id number] [id number] Self [id number] Medicaid Medicaid [id number] MRN.[id number] Self [id number] Medicare Medicare Primary [id number] [id number] Self [id number] Medicare Dme Medigap Part B [id number] [id number] Self [id number] Medicaid Medicaid [id number] MRN.[id number] 776a Self [id number] Medicare Medicare Primary [id number] MRN.[id number] Self [id number] Medicaid [facility] Part B [id number] 2.16.840.1.891675.3.227.99 .991.516544.0 Self [id number] [place] [id number] 2.16.840.1.513927.3.227.99.991.953690.0 Self [id number] Medicaid Commercial [id number] 2.16.840.1.656436.3.227.99.510.83953. 0 Self [id number] Medicare Commercial [id number] 2.16.840.1.829404.3.227.99.510.154 64.0 Self [id number] Medicaid Commercial [id number] 2.16.840.1.797675.3.227.99.510.95419.0 Self [id number] Medicare Part A [place] Medicare Primary [id number] 2.16.840.1.372470.3.227.99.510.31306.0 Self 9 [id number] Medicaid [facility] Part B [id number] 2.16.840.1.638080.3.227.99 .991.860139.0 Self [id number] [place] [id number] 2.16.840.1.878014.3.227.99.991.981757.0 Self [id number] Medicare Commercial [id number] 2.16.840.1.031103.3.227.99.510.154 64.0 Self [id number] Medicaid Commercial [id number] 2.16.840.1.423202.3.227.99.510.77089. 0 Self [id number] Medicaid Commercial [id number] 2.16.840.1.468500.3.227.99.510.23743.0 Self [id number] [place] [id number] 2.16.840.1.537010.3.227.99.510.67381.0 Self [id number] Medicare Commercial [id number] 2.16.840.1.298524.3.227.99.510.154 64.0 Self [id number] Medicaid Commercial [id number] 2.16.840.1.825977.3.227.99.510.89815. 0 Self [id number] Medicaid Commercial [id number] 2.16.840.1.975244.3.227.99.510.65964.0 Self [id number] [place] [id number] 2.16.840.1.477836.3.227.99.510.27327.0 Self [id number] Medicare Commercial [id number] 2.16.840.1.435821.3.227.99.510.154 64.0 Self [id number] Medicaid Commercial [id number] 2.16.840.1.519525.3.227.99.510.62633. 0 Self [id number] Medicaid Commercial [id number] 2.16.840.1.443795.3.227.99.510.54955.0 Self [id number] [place] [id number] 2.16.840.1.809040.3.227.99.510.31844.0 Self [id number] Medicare Commercial [id number] 2.16.840.1.419444.3.227.99.510.154 64.0 Self [id number] Medicaid Commercial [id number] 2.16.840.1.527584.3.227.99.510.24532. 0 Self [id number] Medicaid Commercial [id number] 2.16.840.1.560000.3.227.99.510.13665.0 Self [id number] [place] [id number] 2.16.840.1.795629.3.227.99.510.92371.0 Self [id number] Medicaid [facility] [place] [id number] 2.16.840.1.083631.3.22 7.99.510.00770.0 Self [id number] Medicare Part A [place] Medicare Primary [id number] 2.16.840.1.380460.3.227.99.510.58488.0 Self [id number] Medicaid [facility] [place] [id number] 2.16.840.1.503036.3.22 7.99.510.20992.0 Self [id number] [place] [id number] 2.16.840.1.402699.3.227.99.510.26334.0 Self 9 [id number] Medicaid [facility] Medicaid [id number] 2.16.840.1.048056.3.22 7.99.510.09340.0 Self [id number] [place] [id number] 2.16.840.1.751039.3.227.99.510.60336.0 Self 9 [id number] Medicaid [facility] Medicaid [id number] 2.16.840.1.650972.3.22 7.99.510.22224.0 Self [id number] [place] [id number] 2.16.840.1.361365.3.227.99.510.85372.0 Self 9 [id number] Medicaid [facility] Medicaid [id number] 2.16.840.1.759898.3.22 7.99.510.23666.0 Self [id number] [place] [id number] 2.16.840.1.572227.3.227.99.510.63814.0 Self [id number] Medicaid [facility] Medicaid [id number] 2.16.840.1.438124.3.22 7.99.510.26495.0 Self [id number] [place] [id number] 2.16.840.1.744976.3.227.99.510.30792.0 Self 9 [id number] Medicaid [facility] Medicaid [id number] 2.16.840.1.807123.3.22 7.99.510.98154.0 Self [id number] [place] [id number] 2.840.1.526149.3.227.99.510.23764.0 Self [id number] MEDICARE [id number] A Medicaid [place] Medigap Part B [id number] 2.16840.1.575252.3.227.99 .6619.28462.0 Self [id number] [place] [id number] 2.16840.1.045761.3.227.99.6619.49944.0 Self [id number] Medicaid [facility] Medicaid [id number] 2.16.840.1.184524.3.22 7.99.510.81083.0 Self [id number] [place] [id number] 2.16.840.1.651607.3.227.99.510.66581.0 Self [id number] MEDICARE PART A -O/P [id number] Medicaid [facility] Medicaid [id number] 2.16.840.1.970387.3.22 7.99.510.78895.0 Self [id number] [place] [id number] 2.16.840.1.540932.3.227.99.510.85253.0 Self 9 [id number] Medicaid [facility] Medicaid [id number] 2.16.840.1.536792.3.22 7.99.510.60956.0 Self [id number] [place] [id number] 2.16.840.1.220019.3.227.99.510.37865.0 Self 9 [id number] Medicaid [facility] Medicaid [id number] 2.16.840.1.737939.3.22 7.99.510.10314.0 Self [id number] [place] [id number] 2.16.840.1.051909.3.227.99.510.72332.0 Self 9 [id number] Medicaid [facility] Medicaid [id number] 2.16.840.1.062587.3.22 7.99.510.90136.0 Self [id number] [place] [id number] 2.16.840.1.759297.3.227.99.510.40938.0 Self 1 [id number] Medicaid [facility] Medicaid [id number] 2.16.840.1.448354.3.22 7.99.510.15926.0 Self [id number] [place] [id number] 2.16.840.1.382164.3.227.99.510.75469.0 Self 1 [id number] Medicaid [facility] Medicaid [id number] 2.16.840.1.239091.3.22 7.99.510.86153.0 Self [id number] [place] [id number] 2.16.840.1.350684.3.227.99.510.26027.0 Self 1 [id number] Medicaid [facility] Medicaid [id number] 2.16.840.1.893437.3.22 7.99.510.65274.0 Self [id number] Medicare Part A [place] Medicare Primary [id number] 2.840.1.231637.3.227.99.510.37787.0 Self 1 [id number] Medicare Dme Medigap Part B [id number] 2.840.1.879950.3.227.99 .936.40697.0 Self [id number] Medicaid Medicaid [id number] 2.840.1.392823.3.227.99.936.63920.0 S elf [id number] Medicare Medicare Primary [id number] 2.840.1.545706.3.227. 99.936.67435.0 Self [id number] Medicare Dme Medigap Part B [id number] .0.1.234113.3.227.99 .936.63516.0 Self [id number] Medicaid Medicaid [id number] .840.1.977794.3.227.99.936.77131.0 S elf [id number] Medicare Medicare Primary [id number] .840.1.423397.3.227. 99.936.12386.0 Self [id number] Medicare Dme Medigap Part B [id number] 01.04.840.1.087122.3.227.99 .936.86648.0 Self [id number] Medicaid Medicaid [id number] .840.1.427469.3.227.99.936.47802.0 S elf [id number] Medicare Medicare Primary [id number] .840.1.781936.3.227. 99.936.43114.0 Self [id number] Medicare Dme Medigap Part B [id number] 840.1.970213.3.227.99 .936.19035.0 Self [id number] Medicaid Medicaid [id number] 2.840.1.026267.3.227.99.936.91063.0 S elf [id number] Medicare Medicare Primary [id number] 840.1.346505.3.227. 99.936.18022.0 Self [id number] Medicare Dme Medigap Part B [id number] 2.16.840.1.111596.3.227.99 .936.86932.0 Self [id number] Medicaid Medicaid [id number] 2.16.840.1.829558.3.227.99.936.42759.0 S elf [id number] Medicare Medicare Primary [id number] 2.16.840.1.575261.3.227. 99.936.16774.0 Self [id number] Medicare Dme Medigap Part B [id number] 2.16.840.1.147528.3.227.99 .936.23108.0 Self [id number] Medicaid Medicaid [id number] 2.16.840.1.895755.3.227.99.936.97069.0 S elf [id number] Medicare Medicare Primary [id number] 2.16.840.1.975501.3.227. 99.936.47712.0 Self [id number] Medicaid Medicaid 2.16.840.1.363389.3.227.99.936.47294.0 S elf Medicare Medicare Primary 2.16.840.1.816630.3.227.99.936.23 302.0 Self HMO BLUE [id number] SP [id number] BLUE CROSS SAAVEDRA PLAN [id number] SP [id number] MEDICAID S [id number] S [id number] MEDICARE P [id number] S [id number] A HMO BLUE [id number] SP [id number] [facility] [employer] [facility] PLUS [id number] SP [id number] HEALTH WELFARE BENEFIT SYS [id number] SP [id number] [place] [id number] SP [id number] U [id number] MEDICARE [id number] SP [id number] MEDICAID CO [id number] 18 [id number] MEDICAID CO [id number] 18 [id number] MEDICARE PART A [place] [id number] 18 [id number] MEDICAID -PHYSICIAN [id number] 1 8 [id number] EMEDNY [id number] SP [id number] Problems, Conditions, and Diagnoses Code Display Name Description Problem Type Effective Dates Data Source(s) M542 Cervicalgia Cervicalgia Diagnosis 03/11/2021 02:01:00 PM EDT [facility] F43.9 Reaction to severe stress, unspecified 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) [id number] Cervical radiculopathy Cervical radiculopathy Problem 03/25/2021 12:00:00 AM EDT [facility] ([facility] ) E11.9 Type 2 diabetes mellitus Type 2 diabetes mellitus Prob allan 03/20/2021 12:00:00 AM EDT [facility] ([facility] M21.619 Bunion Bunion Problem 03/20/2021 12:00:00 AM ED T [facility] ([facility] [id number] SNOMED CT Concept SNOMED CT Concept Problem 01/09 12:00:00 AM EST - 02/15/2021 12:00:00 AM EDT [facility]ANESSA ([facility]) [id number] Finding of urine substance level Finding of Urin e Substance Level Problem 01/09/2018 12:00:00 AM EST - 09/30/2020 12:00:00 AM JENNIFER MENDEZ ([facility]) [id number] SNOMED CT Concept SNOMED CT Concept Problem 01/09 12:00:00 AM EST - 02/15/2021 12:00:00 AM EDT [facility] ([facility]) [id number] Finding of urine substance level Finding of Urin e Substance Level Problem 01/09/2018 12:00:00 AM EST - 09/30/2020 12:00:00 AM JENNIFER MENDEZ ([facility]) [id number] SNOMED CT Concept SNOMED CT Concept Problem 01/09 12:00:00 AM EST - 02/15/2021 12:00:00 AM EDT [facility] ([facility]) [id number] Finding of urine substance level Finding of Urin e Substance Level Problem 01/09/2018 12:00:00 AM EST - 09/30/2020 12:00:00 AM JENNIFER MENDEZ ([facility]) [id number] SNOMED CT Concept SNOMED CT Concept Problem 01/09 12:00:00 AM EST - 02/15/2021 12:00:00 AM EDT [facility] ([facility]) [id number] Finding of urine substance level Finding of Urin e Substance Level Problem 01/09/2018 12:00:00 AM EST - 09/30/2020 12:00:00 AM JENNIFER MENDEZ ([facility]) [id number] SNOMED CT Concept SNOMED CT Concept Problem 01/09 12:00:00 AM EST - 02/15/2021 12:00:00 AM EDT [facility] ([facility]) [id number] Finding of urine substance level Finding of Urin e Substance Level Problem 01/09/2018 12:00:00 AM EST - 09/30/2020 12:00:00 AM JENNIFER MENDEZ ([facility]) [id number] SNOMED CT Concept SNOMED CT Concept Problem 01/09 12:00:00 AM EST - 02/15/2021 12:00:00 AM EDT [facility] ([facility]) [id number] Finding of urine substance level Finding of Urin e Substance Level Problem 01/09/2018 12:00:00 AM EST - 09/30/2020 12:00:00 AM JENNIFER MENDEZ ([facility]) 839854327 SNOMED CT Concept SNOMED CT Concept Problem 01/09 12:00:00 AM EST - 02/15/2021 12:00:00 AM EDT [facility] ([facility]) [id number] Finding of urine substance level Finding of Urin e Substance Level Problem 01/09/2018 12:00:00 AM EST - 09/30/2020 12:00:00 AM JENNIFER MENDEZ ([facility]) 532342067 Finding of urine substance level Finding of Urin e Substance Level Problem 01/09/2018 12:00:00 AM EST - 09/30/2020 12:00:00 AM JENNIFER MENDEZ ([facility]) 940911266 SNOMED CT Concept SNOMED CT Concept Problem 01/09 12:00:00 AM EST - 02/15/2021 12:00:00 AM EDT [facility] ([facility]) 577068497 Finding of urine substance level Finding of Urin e Substance Level Problem 01/09/2018 12:00:00 AM EST - 09/30/2020 12:00:00 AM JENNIFER MENDEZ ([facility]) [id number] SNOMED CT Concept SNOMED CT Concept Problem 01/09 12:00:00 AM EST - 02/15/2021 12:00:00 AM EDT [facility] ([facility]) 968573620 Finding of urine substance level Finding of Urin e Substance Level Problem 01/09/2018 12:00:00 AM EST - 09/30/2020 12:00:00 AM JENNIFER MENDEZ ([facility]) 973615336 Renal function tests abnormal Renal Function Tests Abn ormal Problem 03/03/2016 12:00:00 AM EDT - 03/10/2021 12:00:00 AM EDT [facility] ([facility]) 851076338 Renal function tests abnormal Renal Function Tests Abn ormal Problem 03/03/2016 12:00:00 AM EDT - 03/10/2021 12:00:00 AM EDT [facility] ([facility]) 440136937 Renal function tests abnormal Renal Function Tests Abn ormal Problem 03/03/2016 12:00:00 AM EDT - 03/10/2021 12:00:00 AM EDT [facility] ([facility]) 803277542 Renal function tests abnormal Renal Function Tests Abn ormal Problem 03/03/2016 12:00:00 AM EDT - 03/10/2021 12:00:00 AM EDT [facility] ([facility]) 642508272 Renal function tests abnormal Renal Function Tests Abn ormal Problem 03/03/2016 12:00:00 AM EDT - 03/10/2021 12:00:00 AM EDT [facility] ([facility]) 759885711 Renal function tests abnormal Renal Function Tests Abn ormal Problem 03/03/2016 12:00:00 AM EDT - 03/10/2021 12:00:00 AM EDT [facility] ([facility]) 869907838 SNOMED CT Concept SNOMED CT Concept Problem 02/02 12:00:00 AM EDT - 02/15/2021 12:00:00 AM EDT [facility] ([facility]) 864925060 Clinical finding Clinical Finding Problem 016 12:00:00 AM EDT - 02/15/2021 12:00:00 AM EDT [facility] ([facility]) 111148739 SNOMED CT Concept SNOMED CT Concept Problem 02/02 12:00:00 AM EDT - 09/30/2020 12:00:00 AM EST [facility] ([facility]) 882974741 Procedure by method Procedure by Method Problem 0 02/03/2016 12:00:00 AM EDT - 09/30/2020 12:00:00 AM EST [facility] ([facility]) 952104928 Difficulty passing urine Difficulty Passing Urine Prob allan 02/03/2016 12:00:00 AM EDT - 09/30/2020 12:00:00 AM EST [facility] ([facility]) 344041311 SNOMED CT Concept SNOMED CT Concept Problem 02/02 12:00:00 AM EDT - 02/15/2021 12:00:00 AM EDT [facility] ([facility]) 318171372 Clinical finding Clinical Finding Problem 016 12:00:00 AM EDT - 02/15/2021 12:00:00 AM EDT [facility] ([facility]) 508669126 SNOMED CT Concept SNOMED CT Concept Problem 02/02 12:00:00 AM EDT - 09/30/2020 12:00:00 AM EST [facility] ([facility]) 405152157 Procedure by method Procedure by Method Problem 0 02/03/2016 12:00:00 AM EDT - 09/30/2020 12:00:00 AM EST [facility] ([facility]) 801608137 Difficulty passing urine Difficulty Passing Urine Prob allan 02/03/2016 12:00:00 AM EDT - 09/30/2020 12:00:00 AM EST [facility] ([facility]) 472888958 SNOMED CT Concept SNOMED CT Concept Problem 02/02 12:00:00 AM EDT - 02/15/2021 12:00:00 AM EDT [facility] ([facility]) 022147496 Clinical finding Clinical Finding Problem 016 12:00:00 AM EDT - 02/15/2021 12:00:00 AM EDT [facility] ([facility]) 506152920 SNOMED CT Concept SNOMED CT Concept Problem 02/02 12:00:00 AM EDT - 09/30/2020 12:00:00 AM EST [facility] ([facility]) 109441685 Procedure by method Procedure by Method Problem 0 02/03/2016 12:00:00 AM EDT - 09/30/2020 12:00:00 AM EST [facility] ([facility]) 461315649 Difficulty passing urine Difficulty Passing Urine Prob allan 02/03/2016 12:00:00 AM EDT - 09/30/2020 12:00:00 AM EST [facility] ([facility]) 235893155 SNOMED CT Concept SNOMED CT Concept Problem 02/02 12:00:00 AM EDT - 02/15/2021 12:00:00 AM EDT [facility] ([facility]) 890692381 Clinical finding Clinical Finding Problem 016 12:00:00 AM EDT - 02/15/2021 12:00:00 AM EDT [facility] ([facility]) 519870480 SNOMED CT Concept SNOMED CT Concept Problem 02/02 12:00:00 AM EDT - 09/30/2020 12:00:00 AM EST [facility] ([facility]) 379895013 Procedure by method Procedure by Method Problem 0 02/03/2016 12:00:00 AM EDT - 09/30/2020 12:00:00 AM EST [facility] ([facility]) 743145375 Difficulty passing urine Difficulty Passing Urine Prob allan 02/03/2016 12:00:00 AM EDT - 09/30/2020 12:00:00 AM EST [facility] ([facility]) [id number] SNOMED CT Concept SNOMED CT Concept Problem 02/02 12:00:00 AM EDT - 02/15/2021 12:00:00 AM EDT [facility] ([facility]) [id number] Clinical finding Clinical Finding Problem 016 12:00:00 AM EDT - 02/15/2021 12:00:00 AM EDT [facility] ([facility]) [id number] SNOMED CT Concept SNOMED CT Concept Problem 02/02 12:00:00 AM EDT - 09/30/2020 12:00:00 AM EST [facility] ([facility]) [id number] Procedure by method Procedure by Method Problem 0 02/03/2016 12:00:00 AM EDT - 09/30/2020 12:00:00 AM EST [facility] ([facility]) [id number] Difficulty passing urine Difficulty Passing Urine Prob allan 02/03/2016 12:00:00 AM EDT - 09/30/2020 12:00:00 AM EST [facility] ([facility]) [id number] Difficulty passing urine Difficulty Passing Urine Prob allan 02/03/2016 12:00:00 AM EDT - 09/30/2020 12:00:00 AM EST [facility] ([facility]) [id number] SNOMED CT Concept SNOMED CT Concept Problem 02/02 12:00:00 AM EDT - 02/15/2021 12:00:00 AM EDT [facility] ([facility]) [id number] Clinical finding Clinical Finding Problem 016 12:00:00 AM EDT - 02/15/2021 12:00:00 AM EDT [facility] ([facility]) [id number] SNOMED CT Concept SNOMED CT Concept Problem 02/02 12:00:00 AM EDT - 09/30/2020 12:00:00 AM EST [facility] ([facility]) [id number] Procedure by method Procedure by Method Problem 0 02/03/2016 12:00:00 AM EDT - 09/30/2020 12:00:00 AM EST [facility] ([facility]) [id number] Difficulty passing urine Difficulty Passing Urine Prob allan 02/03/2016 12:00:00 AM EDT - 09/30/2020 12:00:00 AM EST [facility] ([facility]) [id number] SNOMED CT Concept SNOMED CT Concept Problem 02/02 12:00:00 AM EDT - 09/30/2020 12:00:00 AM EST [facility] ([facility]) [id number] Procedure by method Procedure by Method Problem 0 02/03/2016 12:00:00 AM EDT - 09/30/2020 12:00:00 AM EST [facility] ([facility]) [id number] Difficulty passing urine Difficulty Passing Urine Prob allan 02/03/2016 12:00:00 AM EDT - 09/30/2020 12:00:00 AM EST [facility] ([facility]) [id number] SNOMED CT Concept SNOMED CT Concept Problem 02/02 12:00:00 AM EDT - 02/15/2021 12:00:00 AM EDT [facility] ([facility]) [id number] Clinical finding Clinical Finding Problem 016 12:00:00 AM EDT - 02/15/2021 12:00:00 AM EDT [facility] ([facility]) [id number] SNOMED CT Concept SNOMED CT Concept Problem 02/02 12:00:00 AM EDT - 09/30/2020 12:00:00 AM EST [facility] ([facility]) [id number] Procedure by method Procedure by Method Problem 0 02/03/2016 12:00:00 AM EDT - 09/30/2020 12:00:00 AM EST [facility] ([facility]) [id number] Difficulty passing urine Difficulty Passing Urine Prob allan 02/03/2016 12:00:00 AM EDT - 09/30/2020 12:00:00 AM EST [place] ([facility]) [id number] SNOMED CT Concept SNOMED CT Concept Problem 02/02 12:00:00 AM EDT - 02/15/2021 12:00:00 AM EDT [place] ([facility]) [id number] Clinical finding Clinical Finding Problem 016 12:00:00 AM EDT - 02/15/2021 12:00:00 AM EDT [place] ([facility]) [id number] SNOMED CT Concept SNOMED CT Concept Problem 02/02 12:00:00 AM EDT - 09/30/2020 12:00:00 AM EST [place] ([facility]) [id number] Procedure by method Procedure by Method Problem 0 02/03/2016 12:00:00 AM EDT - 09/30/2020 12:00:00 AM EST [place] ([facility]) [id number] Difficulty passing urine Difficulty Passing Urine Prob allan 02/03/2016 12:00:00 AM EDT - 09/30/2020 12:00:00 AM EST [facility] ([facility]) [id number] SNOMED CT Concept SNOMED CT Concept Problem 02/02 12:00:00 AM EDT - 02/15/2021 12:00:00 AM EDT [facility]AN[place]SA ([facility]) [id number] Clinical finding Clinical Finding Problem 016 12:00:00 AM EDT - 02/15/2021 12:00:00 AM EDT [place] ([facility]) [id number] SNOMED CT Concept SNOMED CT Concept Problem 02/02 12:00:00 AM EDT - 09/30/2020 12:00:00 AM EST [place] ([facility]) [id number] Procedure by method Procedure by Method Problem 0 02/03/2016 12:00:00 AM EDT - 09/30/2020 12:00:00 AM EST V[place]ES[place] ([facility]) Surgeries/Procedures Procedure Description Date Indications Data Source(s) Extended Individual Psychotherapy - 45 min 06/28/2021 12:00:00 AM EDT - 06/28/2021 12:00:00 AM EDT [facility] ([facility]) Extended Individual Psychotherapy - 45 min 12:00:00 AM EDT [facility] ([facility]) Telemed Diagnostic Eval 06/07/2021 12:00 :00 AM EDT - 06/07/2021 12:00:00 AM EDT [facility] ([facility]) Telemed Diagnostic Eval 06/07/2021 12:00:00 AM EDT [facility] ([facility]) OFFICE OUTPATIENT VISIT 25 MINUTES 05/10/2021 12:00:00 AM EDT MEDENT ([facility], ) MRI SPINAL CANAL CERVICAL W/O CONTRAST MATRL 12:00:00 AM EDT MEDENT ([facility], ) MRI SPINAL CANAL CERVICAL W/O CONTRAST MATRL 12:00:00 AM EDT MEDENT ([facility], ) OFFICE OUTPATIENT VISIT 25 MINUTES 04/07/2021 12:00:00 AM EDT MEDENT ([facility], ) Needle electromyography, each extremity, with related paraspinal areas, when performed, done with nerve conduction, amplitude and latency/velocity study; complete, five or more muscles studied, innervated by three or more nerves or four or more spinal levels (list separately in addition to the code for primary procedure). 03/28/2021 12:00:00 AM EDT MEDEN T ([facility], ) Needle Electromyography Non Extremity Done With Nerve Conduc tion 03/28/2021 12:00:00 AM EDT MEDENT ([facility], ) Needle Electromyography Non Extremity Done With Nerve Conduc tion 03/28/2021 12:00:00 AM EDT [facility] ([facility], ) Nerve Conduction 11-12 Studies 03/28/2021 12:00:00 AM EDT MED[facility] ([facility], ) Results ID Date Data Source [id number] 07/06/2021 12:00:00 AM EDT [place] ([facility]) Name Value Range Interpretation Code Description Data Sandra rce(s) Supporting Document(s) Bacteria identified in Urine by Culture Reflexive Urine Culture [place] ([facility]) ID Date Data Source [id number] 07/06/2021 12:00:00 AM EDT V[place] ([facility]) Name Value Range Interpretation Code Description Data Sandra rce(s) Supporting Document(s) Color of Urine yellow yellow Color VANESSA ([facility]) Appearance of Urine clear clear Appearance ATHEN A ([facility]) Glucose [Presence] in Urine by Test strip 3+ negati ve Abnormal (applies to non- numeric results) Glucose [facility]SA ([facility]) Specific gravity of Urine by Test strip 1.001-1.035 A eddie high normal Specific [place] VANESSA ([facility]) pH of Urine by Test strip 5.0-8.0 Ph VANES[facility] ([facility]) Bilirubin.total [Presence] in Urine by Test strip negative negative Bilirubin V[place] ([facility]) Protein [Presence] in Urine by Test strip negative negative Protein [facility] ([facility]) Hemoglobin [Presence] in Urine by Test strip negative negative Occult Blood V[facility] ([facility]) Ketones [Presence] in Urine by Test strip negative negative Ketones [facility] ([facility]) Nitrite [Presence] in Urine by Test strip negative negative Nitrite V[facility] ([facility]) Leukocytes [#/area] in Urine sediment by Microscopy high pow er field none seen < or = 5 Wbc VANESSA ([facility]) Leukocyte esterase [Presence] in Urine by Test strip negative n egative Leukocyte Esterase V[facility] ([facility]) Epithelial cells.squamous [#/area] in Ur ine sediment by Microscopy high power field none seen < or = 5 Squamous Epithelial Cells AT [facility] ([facility]) Hyaline casts [#/area] in Urine sediment by Microscopy low power field none seen none seen Hyaline Cast V[place] ([facility]) Bacteria [#/area] in Urine sediment by Microscopy high power field none seen none seen Bacteria V[facility]SA ([facility]) Erythrocytes [#/area] in Urine sediment by Microscopy high power field none seen < or = 2 Rbc [facility] ([facility]) ID Date Data Source [id number] 07/06/2021 12:00:00 AM EDT [place] ([facility]) Name Value Range Interpretation Code Description Data Sandra rce(s) Supporting Document(s) Glucose [Mass/volume] in Serum or Plasma 308 mg/dL 65-99 Above high normal Glucose [facility] ([facility]) Urea nitrogen [Mass/volume] in Serum or Plasma 15 mg/dL 7-25 Urea Nitrogen (BUN) [facility] ([facility]) Urea nitrogen/Creatinine [Mass Ratio] in Serum or Plasma not applic able 6-22 BUN/creatinine Ratio [place] ([facility]) Creatinine [Mass/volume] in Serum or Plasma 0.93 mg/dL 0.70-1.33 Creatinine [facility] ([facility]) Glomerular filtration rate/1.73 sq M.pre dicted among non-blacks [Volume Rate/Area] in Serum, Plasma or Blood by Creatinine-based formula (CKD-EPI) 95 mL/min/1.73m2 > or = 60 eGFR Non-afr. Welsh V[place]ESSA ([facility]) Glomerular filtration rate/1.73 sq M.pre dicted among blacks [Volume Rate/Area] in Serum, Plasma or Blood by Creatinine-based formula (CKD-EPI) 110 mL/min/1.73m2 > or = 60 eGFR VANESSA ([facility]) Chloride [Moles/volume] in Serum or Plasma 102 mmol/L 98-110 Chloride [facility] ([facility]) Potassium [Moles/volume] in Serum or Plasma 4.0 mmol/L 3.5-5.3 Potassium [facility] ([facility]) Sodium [Moles/volume] in Serum or Plasma 135 mmol/L 135-146 Sodium [facility] ([facility]) Carbon dioxide, total [Moles/volume] in Serum or Plasma 27 mmol/L 20-32 Carbon Dioxide [facility] ([facility]) Calcium [Mass/volume] in Serum or Plasma 8.9 mg/dL 8.6-10.3 Calcium [facility] ([facility]) Albumin [Mass/volume] in Serum or Plasma 4.1 g/dL 3.6-5.1 Albumin [facility] ([facility]) Globulin [Mass/volume] in Serum by calculation 2.7 g/dL_(calc) 1.9- 3.7 Globulin [facility] ([facility]) Protein [Mass/volume] in Serum or Plasma 6.8 g/dL 6.1-8.1 Protein, Total [facility] ([facility]) Bilirubin.total [Mass/volume] in Serum or Plasma 0.9 mg/dL 0.2-1 .2 Bilirubin, Total [facility] ([facility]) Albumin/Globulin [Mass Ratio] in Serum or Plasma 1.5 (calc) 1.0-2 .5 Albumin/globulin Ratio [facility] ([facility]) Alkaline phosphatase [Enzymatic activity/volume] in Serum or Plasma 73 U/L 35-144 Alkaline Phosphatase [facility] ([facility]) Aspartate aminotransferase [Enzymatic activity/volume] in Se rum or Plasma 9 U/L 10-35 Below low normal Ast VANESSA ([facility]) Alanine aminotransferase [Enzymatic activity/volume] in Seru m or Plasma 15 U/L 9-46 Alt VANESSA ([facility]) ID Date Data Source [id number] 07/06/2021 12:00:00 AM EDT [place] ([facility]) Name Value Range Interpretation Code Description Data Sandra rce(s) Supporting Document(s) Cholesterol in HDL [Mass/volume] in Serum or Plasma 38 mg/dL > or = 40 Below low normal HDL Cholesterol [facility] ([facility]) Triglyceride [Mass/volume] in Serum or Plasma 208 mg/dL <150 Above high normal Triglycerides V[place] ([facility]) Cholesterol [Mass/volume] in Serum or Plasma 114 mg/dL <200 Cholesterol, Total [facility] ([facility]) Cholesterol in LDL [Mass/volume] in Serum or Plasma by calculation 49 mg/dL_(calc) LDL-cholesterol [facility] ([facility]) Cholesterol.total/Cholesterol in HDL [Mass Ratio] in Serum o r Plasma 3.0 (calc) <5.0 Chol/hdlc Ratio V[place] ([facility]) Cholesterol non HDL [Mass/volume] in Serum or Plasma 76 mg/dL_(calc ) <130 Non HDL Cholesterol [place] ([facility]) ID Date Data Source [id number] 06/28/2021 11:45:00 AM EDT [facility]) Name Value Range Interpretation Code Description Data Sandra rce(s) Supporting Document(s) Hemoglobin A1c/Hemoglobin.total in Blood 10.4 % Abnormal (applies to non- numeric results) Hba1C [place] ([facility]) ID Date Data Source [id number] 06/28/2021 11:45:00 AM EDT [place] ([facility]) Name Value Range Interpretation Code Description Data Sandra rce(s) Supporting Document(s) Hemoglobin A1c/Hemoglobin.total in Blood 10.4 % Abnormal (applies to non- numeric results) Hba1C [place] ([facility]) ID Date Data Source [id number] 06/28/2021 11:45:00 AM EDT [place] ([facility]) Name Value Range Interpretation Code Description Data Sandra rce(s) Supporting Document(s) Hemoglobin A1c/Hemoglobin.total in Blood 10.4 % Abnormal (applies to non- numeric results) Hba1C [place] ([facility]) ID Date Data Source [id number] 04/25/2021 08:05:00 AM EDT [facility]) Name Value Range Interpretation Code Description Data Sandra rce(s) Supporting Document(s) blood urea nitrogen 20 mg/dL 7-18 Above high normal Blood Ure a Nitrogen [facility] ([facility]) glucose, fasting 382 mg/dL 70-100 Above high normal Glucose, Fas ting [place] ([facility]) creatinine for GFR 1.19 mg/dL 0.70-1.30 Creatinine for GF R [place] ([facility]) glomerular filtration rate > 60.0 >56 Glomerula r Filtration Rate [place] ([facility]) sodium level 135 mEq/L 136-145 Below low normal Sodium Level ATHE NA ([facility]) chloride level 100 mEq/L 98-107 Chloride Level [place] ([facility]) potassium serum 4.5 mEq/L 3.5-5.1 Potassium Serum ATHE NA ([facility]) carbon dioxide level 27 mEq/L 21-32 Carbon Dioxide Level [place] ([facility]) anion gap 8 mEq/L 8-16 Anion Gap [facility] ([facility]) AST/SGOT 9 U/L 7-37 AST/SGOT [place] ([facility]) calcium level 9.3 mg/dL 8.5-10.1 Calcium Level [facility] ( [facility]) ALT/SGPT 26 U/L 12-78 ALT/SGPT [facility] ([facility]) alkaline phosphatase 71 U/L 45-117 Alkaline Phosph atase [facility] ([facility]) bilirubin,total 1.0 mg/dL 0.2-1.0 Bilirubin,total AT[place] ([facility]) albumin 3.9 gm/dL 3.2-5.2 Albumin [facility] ([facility]) total protein 7.6 gm/dL 6.4-8.2 Total Protein [place] ( [facility]) albumin/globulin ratio Albumin/globu jose l Ratio [facility] ([facility]) ID Date Data Source [id number] 04/25/2021 08:05:00 AM EDT [place] ([facility]) Name Value Range Interpretation Code Description Data Sandra rce(s) Supporting Document(s) glucose, fasting 382 mg/dL 70-100 Above high normal Glucose, Fas ting [facility] ([facility]) blood urea nitrogen 20 mg/dL 7-18 Above high normal Blood Ure a Nitrogen [facility] ([facility]) glomerular filtration rate > 60.0 >56 Glomerula r Filtration Rate [place] ([facility]) creatinine for GFR 1.19 mg/dL 0.70-1.30 Creatinine for GF R [place] ([facility]) potassium serum 4.5 mEq/L 3.5-5.1 Potassium Serum ATHE NA ([facility]) sodium level 135 mEq/L 136-145 Below low normal Sodium Level ATHE NA ([facility]) anion gap 8 mEq/L 8-16 Anion Gap V[place] ([facility]) carbon dioxide level 27 mEq/L 21-32 Carbon Dioxide Level [facility] ([facility]) chloride level 100 mEq/L 98-107 Chloride Level [facility] ([facility]) AST/SGOT 9 U/L 7-37 AST/SGOT [facility] ([facility]) calcium level 9.3 mg/dL 8.5-10.1 Calcium Level V[place] ( [facility]) alkaline phosphatase 71 U/L 45-117 Alkaline Phosph atase [facility] ([facility]) bilirubin,total 1.0 mg/dL 0.2-1.0 Bilirubin,total AT[facility] ([facility]) ALT/SGPT 26 U/L 12-78 ALT/SGPT [facility] ([facility]) total protein 7.6 gm/dL 6.4-8.2 Total Protein [facility] ( [facility]) albumin 3.9 gm/dL 3.2-5.2 Albumin [facility] ([facility]) albumin/globulin ratio Albumin/globu jose l Ratio [facility] ([facility]) ID Date Data Source [id number] 04/25/2021 08:05:00 AM EDT [place] ([facility]) Name Value Range Interpretation Code Description Data Sandra rce(s) Supporting Document(s) glucose, fasting 382 mg/dL 70-100 Above high normal Glucose, Fas ting [facility] ([facility]) glomerular filtration rate > 60.0 >56 Glomerula r Filtration Rate [facility] ([facility]) creatinine for GFR 1.19 mg/dL 0.70-1.30 Creatinine for GF R [facility] ([facility]) blood urea nitrogen 20 mg/dL 7-18 Above high normal Blood Ure a Nitrogen [facility] ([facility]) sodium level 135 mEq/L 136-145 Below low normal Sodium Level ATHE NA ([facility]) chloride level 100 mEq/L 98-107 Chloride Level [place] ([facility]) potassium serum 4.5 mEq/L 3.5-5.1 Potassium Serum [place] NA ([facility]) carbon dioxide level 27 mEq/L 21-32 Carbon Dioxide Level [place] ([facility]) anion gap 8 mEq/L 8-16 Anion Gap [facility] ([facility]) calcium level 9.3 mg/dL 8.5-10.1 Calcium Level [facility] ( [facility]) ALT/SGPT 26 U/L 12-78 ALT/SGPT VAENSSA ([facility]) AST/SGOT 9 U/L 7-37 AST/SGOT [place] ([facility]) total protein 7.6 gm/dL 6.4-8.2 Total Protein [place] ( [facility]) alkaline phosphatase 71 U/L 45-117 Alkaline Phosph atase [facility] ([facility]) bilirubin,total 1.0 mg/dL 0.2-1.0 Bilirubin,total [place] ([facility]) albumin/globulin ratio Albumin/globu jose l Ratio [facility] ([facility]) albumin 3.9 gm/dL 3.2-5.2 Albumin [facility] ([facility]) ID Date Data Source [id number] 04/25/2021 08:05:00 AM EDT [place] ([facility]) Name Value Range Interpretation Code Description Data Sandra rce(s) Supporting Document(s) creatinine for GFR 1.19 mg/dL 0.70-1.30 Creatinine for GF R [place] ([facility]) glucose, fasting 382 mg/dL 70-100 Above high normal Glucose, Fas ting [facility] ([facility]) blood urea nitrogen 20 mg/dL 7-18 Above high normal Blood Ure a Nitrogen [facility] ([facility]) glomerular filtration rate > 60.0 >56 Glomerula r Filtration Rate [place] ([facility]) sodium level 135 mEq/L 136-145 Below low normal Sodium Level [place] NA ([facility]) carbon dioxide level 27 mEq/L 21-32 Carbon Dioxide Level [facility] ([facility]) potassium serum 4.5 mEq/L 3.5-5.1 Potassium Serum [place] NA ([facility]) chloride level 100 mEq/L 98-107 Chloride Level [facility] ([facility]) anion gap 8 mEq/L 8-16 Anion Gap [facility] ([facility]) calcium level 9.3 mg/dL 8.5-10.1 Calcium Level [facility] ( [facility]) alkaline phosphatase 71 U/L 45-117 Alkaline Phosph atase [facility] ([facility]) ALT/SGPT 26 U/L 12-78 ALT/SGPT [facility] ([facility]) AST/SGOT 9 U/L 7-37 AST/SGOT [facility] ([facility]) total protein 7.6 gm/dL 6.4-8.2 Total Protein [facility] ( [facility]) bilirubin,total 1.0 mg/dL 0.2-1.0 Bilirubin,total ATHE NA ([facility]) albumin 3.9 gm/dL 3.2-5.2 Albumin [facility] ([facility]) albumin/globulin ratio Albumin/globu jose l Ratio [facility] ([facility]) ID Date Data Source [id number] 04/07/2021 04:34:00 PM EDT [place] ([facility]) Name Value Range Interpretation Code Description Data Sandra rce(s) Supporting Document(s) antinuclear antibodies direct negative negative Antinu clear Antibodies Direct [facility] ([facility]) ID Date Data Source [id number] 04/07/2021 04:34:00 PM EDT [place] ([facility]) Name Value Range Interpretation Code Description Data Sandra rce(s) Supporting Document(s) vitamin B6,pyridoxal phosphate 13.4 ug/L 5.3-46.7 Vitamin B6,Pyridoxal Phosphate [facility] ([facility]) ID Date Data Source [id number] 04/07/2021 04:34:00 PM EDT [place] ([facility]) Name Value Range Interpretation Code Description Data Sandra rce(s) Supporting Document(s) vitamin B1 level whole blood 134.8 nmol/L 66.5-200.0 Vitamin B1 Level Whole Blood [facility] ([facility]) ID Date Data Source [id number] 04/07/2021 04:34[facility] Name Value Range Interpretation Code Description Data Sandra rce(s) Supporting Document(s) vitamin E(alpha tocopherol) 6.2 mg/L 7.0-25.1 Below low nor mal Vitamin E(alpha Tocopherol) [facility] ([facility]) vitamin E(gamma tocopherol) 0.7 mg/L 0.5-5.5 Vitamin E(gamma Tocopherol) [facility]) ID Date Data Source [id number] 04/07/2021 04:34:00 PM EDT [facility]) Name Value Range Interpretation Code Description Data Sandra rce(s) Supporting Document(s) rheumatoid factor quant < 10.0 <15.0 Rheumatoid F actor Quant [place] ([facility]) ID Date Data Source [id number] 04/07/2021 04:34:00 PM EDT [facility]) Name Value Range Interpretation Code Description Data Sandra rce(s) Supporting Document(s) vitamin B12 level 493 pg/mL [facility] folate 17.7 NG/mL Folate [facility] ([facility]) ID Date Data Source [id number] 04/07/2021 04:34:00 PM EDT [facility]) Name Value Range Interpretation Code Description Data Sandra rce(s) Supporting Document(s) albumin % 60.8 % 55.8-66.1 Albumin % [place] ([facility]) ozbty-2-romnscsf % 3.4 % 2.9-4.9 Nvkhi-9-Pbiikndk % [place] ([facility]) goiq-7-sjkuhalcd % 5.5 % 4.7-7.2 Puda-9-Pqibmpkxr % [place] ([facility]) mpqal-4-fsibhdxzp % 10.3 % 7.1-11.8 Ckcxq-5-Kxllrxef s % [place] ([facility]) gamma globulin % 14.3 % 11.1-18.8 Gamma Globulin % AT [facility]) nzxn-7-upjysggsi % 5.7 % 3.2-6.5 Rurw-5-Kylhekxnn % [place] ([facility]) syygz-4-dbsrxyxhd 0.25 gm/dL 0.17-0.41 Eglhm-7-Fvoxofxhc [place] ([facility]) albumin 4.44 gm/dL 3.29-5.55 Albumin [place] ([facility]) fjwnn-4-rptlxevkz 0.75 gm/dL 0.42-0.99 Xskrc-6-Npjjwuafr [place] ([facility]) fava-1-ocmpqzdtt 0.40 gm/dL 0.28-0.60 Zejr-4-Clqyutico AT [facility] ([facility]) uerk-8-ilwjvgbfh 0.42 gm/dL 0.19-0.55 Wwcz-1-Xalzgjjim AT [facility] ([facility]) gamma globulins 1.04 gm/dL 0.65-1.58 Gamma Globulins AT[facility] ([facility]) spep interpretation see comment Spep Interpreta tion [place] ([facility]) total protein 7.3 gm/dL 6.4-8.2 Total Protein [place] ( [facility]) spep pathologist review rev'd by Anna kumar Spep Pathologist Review [place] ([facility]) ID Date Data Source [id number] 04/07/2021 04:34:00 PM EDT [place] ([facility]) Name Value Range Interpretation Code Description Data Sandra rce(s) Supporting Document(s) PTT lupus type anticoag screen 0-1.2 PTT L upus Type Anticoag Screen [place] ([facility]) ID Date Data Source [id number] 04/07/2021 04:34:00 PM EDT [place] ([facility]) Name Value Range Interpretation Code Description Data Sandra rce(s) Supporting Document(s) erythrocyte sedimentation rate 3 mm/HR 0-20 Eryth rocyte Sedimentation Rate [place] ([facility]) ID Date Data Source [id number] 04/07/2021 04:34:00 PM EDT [place] ([facility]) Name Value Range Interpretation Code Description Data Sandra rce(s) Supporting Document(s) Hemoglobin A1c/Hemoglobin.total in Blood 11.3 % Hemoglobin a1C [place] ([facility]) estimated average glucose 278 mg/dL 60-110 Above high norm al Estimated Average Glucose [facility]) ID Date Data Source [id number] 04/07/2021 04:34:00 PM EDT [place] ([facility]) Name Value Range Interpretation Code Description Data Sandra rce(s) Supporting Document(s) antinuclear antibodies direct negative negative Antinu clear Antibodies Direct [facility]) ID Date Data Source [id number] 04/07/2021 04:34:00 PM EDT [facility]) Name Value Range Interpretation Code Description Data Sandra rce(s) Supporting Document(s) vitamin B6,pyridoxal phosphate 13.4 ug/L 5.3-46.7 Vitamin B6,Pyridoxal Phosphate [facility] ([facility]) ID Date Data Source [id number] 04/07/2021 04:34:00 PM EDT [facility]) Name Value Range Interpretation Code Description Data Sandra rce(s) Supporting Document(s) vitamin B1 level whole blood 134.8 nmol/L 66.5-200.0 Vitamin B1 Level Whole Blood [place] ([facility]) ID Date Data Source [id number] 04/07/2021 04:34:00 PM EDT [facility]) Name Value Range Interpretation Code Description Data Sandra rce(s) Supporting Document(s) vitamin E(alpha tocopherol) 6.2 mg/L 7.0-25.1 Below low nor mal Vitamin E(alpha Tocopherol) [facility] ([facility]) vitamin E(gamma tocopherol) 0.7 mg/L 0.5-5.5 Vitamin E(gamma Tocopherol) [facility]) ID Date Data Source [id number] 04/07/2021 04:34:00 PM EDT [facility]) Name Value Range Interpretation Code Description Data Sandra rce(s) Supporting Document(s) rheumatoid factor quant < 10.0 <15.0 Rheumatoid F actor Quant [facility]) ID Date Data Source [id number] 04/07/2021 04:34:00 PM EDT [facility]) Name Value Range Interpretation Code Description Data Sandra rce(s) Supporting Document(s) vitamin B12 level 493 pg/mL Vitamin B12 Level [facility]) folate 17.7 NG/mL Folate [place] ([facility]) ID Date Data Source [id number] 04/07/2021 04:34:00 PM EDT [facility]) Name Value Range Interpretation Code Description Data Sandra rce(s) Supporting Document(s) albumin % 60.8 % 55.8-66.1 Albumin % [place] ([facility]) iknup-6-icbxzoln % 3.4 % 2.9-4.9 Bocyu-7-Emlychlk % [place] ([facility]) enlme-9-gvoafhjrg % 10.3 % 7.1-11.8 Mngxu-0-Ezaicuuf s % [place] ([facility]) prlm-8-bypvxvyaj % 5.7 % 3.2-6.5 Ecgv-4-Wmoqlufot % [place] ([facility]) ptkp-2-llbsmhllw % 5.5 % 4.7-7.2 Jxfs-0-Ouxcbbdmw % [place] ([facility]) albumin 4.44 gm/dL 3.29-5.55 Albumin [place] ([facility]) gamma globulin % 14.3 % 11.1-18.8 Gamma Globulin % AT [facility] ([facility]) azeoa-9-sjrdorghk 0.25 gm/dL 0.17-0.41 Wifnl-7-Lsenwedrr [place] ([facility]) xfzwh-2-yvwzhmenc 0.75 gm/dL 0.42-0.99 Ufhnm-8-Maadgzhsb [place] ([facility]) ktes-5-koznwgipy 0.42 gm/dL 0.19-0.55 Nymp-9-Htbwvivou AT [facility]) wfgf-4-szazbzytg 0.40 gm/dL 0.28-0.60 Qolr-9-Drzxwkmqd AT [facility] ([facility]) gamma globulins 1.04 gm/dL 0.65-1.58 Gamma Globulins [facility] ([facility]) spep interpretation see comment Spep Interpreta tion [place] ([facility]) total protein 7.3 gm/dL 6.4-8.2 Total Protein [place] ( [facility]) spep pathologist review rev'd by Anna kumar Spep Pathologist Review [place] ([facility]) ID Date Data Source [id number] 04/07/2021 04:34:00 PM EDT [place] ([facility]) Name Value Range Interpretation Code Description Data Sandra rce(s) Supporting Document(s) PTT lupus type anticoag screen 0-1.2 PTT L upus Type Anticoag Screen [place] ([facility]) ID Date Data Source [id number] 04/07/2021 04:34:00 PM EDT [place] ([facility]) Name Value Range Interpretation Code Description Data Sandra rce(s) Supporting Document(s) erythrocyte sedimentation rate 3 mm/HR 0-20 Eryth rocyte Sedimentation Rate [place] ([facility]) ID Date Data Source [id number] 04/07/2021 04:34:00 PM EDT [place] ([facility]) Name Value Range Interpretation Code Description Data Sandra rce(s) Supporting Document(s) estimated average glucose 278 mg/dL 60-110 Above high norm al Estimated Average Glucose [place] ([facility]) Hemoglobin A1c/Hemoglobin.total in Blood 11.3 % Hemoglobin a1C [facility]) ID Date Data Source [id number] 04/07/2021 04:34:00 PM EDT [facility]) Name Value Range Interpretation Code Description Data Sandra rce(s) Supporting Document(s) antinuclear antibodies direct negative negative Antinu clear Antibodies Direct [facility]) ID Date Data Source [id number] 04/07/2021 04:34:00 PM EDT [facility]) Name Value Range Interpretation Code Description Data Sandra rce(s) Supporting Document(s) vitamin B6,pyridoxal phosphate 13.4 ug/L 5.3-46.7 Vitamin B6,Pyridoxal Phosphate [facility]) ID Date Data Source [id number] 04/07/2021 04:34:00 PM EDT [facility]) Name Value Range Interpretation Code Description Data Sandra rce(s) Supporting Document(s) vitamin B1 level whole blood 134.8 nmol/L 66.5-200.0 Vitamin B1 Level Whole Blood [facility]) ID Date Data Source [id number] 04/07/2021 04:34:00 PM EDT [facility]) Name Value Range Interpretation Code Description Data Sandra rce(s) Supporting Document(s) vitamin E(alpha tocopherol) 6.2 mg/L 7.0-25.1 Below low nor mal Vitamin E(alpha Tocopherol) [place] ([facility]) vitamin E(gamma tocopherol) 0.7 mg/L 0.5-5.5 Vitamin E(gamma Tocopherol) [facility]) ID Date Data Source [id number] 04/07/2021 04:34:00 PM EDT [facility]) Name Value Range Interpretation Code Description Data Sandra rce(s) Supporting Document(s) rheumatoid factor quant < 10.0 <15.0 Rheumatoid F actor Quant [facility]) ID Date Data Source [id number] 04/07/2021 04:34:00 PM EDT [facility]) Name Value Range Interpretation Code Description Data Sandra rce(s) Supporting Document(s) vitamin B12 level 493 pg/mL Vitamin B12 Level [facility]) folate 17.7 NG/mL Folate [place] ([facility]) ID Date Data Source [id number] 04/07/2021 04:34:00 PM EDT [facility]) Name Value Range Interpretation Code Description Data Sandra rce(s) Supporting Document(s) albumin % 60.8 % 55.8-66.1 Albumin % [facility]) shntr-8-cbjasnyt % 3.4 % 2.9-4.9 Gqprw-6-Dqwnsvar % [facility]) vpsvf-5-vbayomqkc % 10.3 % 7.1-11.8 Xzquw-2-Gcglgzqu s % [facility]) lxav-1-blegexibj % 5.5 % 4.7-7.2 Eeyk-4-Pnbdvczlc % [facility]) ajvy-2-koltbxfca % 5.7 % 3.2-6.5 Cftn-0-Uuncubgvv % [facility]) gamma globulin % 14.3 % 11.1-18.8 Gamma Globulin % AT [place] ([facility]) jlond-0-fcmhjtjht 0.75 gm/dL 0.42-0.99 Hfyop-5-Zuhfhlgno [place] ([facility]) vcybh-1-jvfdxbbot 0.25 gm/dL 0.17-0.41 Erlwb-9-Epztynjso [place] ([facility]) albumin 4.44 gm/dL 3.29-5.55 Albumin [place] ([facility]) pgyp-2-szqhzfknc 0.40 gm/dL 0.28-0.60 Wbmy-7-Aqamrifhr AT [facility] ([facility]) dkhn-3-bpuvoznba 0.42 gm/dL 0.19-0.55 Pvvw-9-Mktsmetdo AT [facility] ([facility]) gamma globulins 1.04 gm/dL 0.65-1.58 Gamma Globulins [facility] ([facility]) spep interpretation see comment Spep Interpreta tion [place] ([facility]) spep pathologist review rev'd by Anna kumar Spep Pathologist Review [place] ([facility]) total protein 7.3 gm/dL 6.4-8.2 Total Protein [place] ( [facility]) ID Date Data Source [id number] 04/07/2021 04:34:00 PM EDT [place] ([facility]) Name Value Range Interpretation Code Description Data Sandra rce(s) Supporting Document(s) PTT lupus type anticoag screen 0-1.2 PTT L upus Type Anticoag Screen [place] ([facility]) ID Date Data Source [id number] 04/07/2021 04:34:00 PM EDT [place] ([facility]) Name Value Range Interpretation Code Description Data Sandra rce(s) Supporting Document(s) erythrocyte sedimentation rate 3 mm/HR 0-20 Eryth rocyte Sedimentation Rate [place] ([facility]) ID Date Data Source [id number] 04/07/2021 04:34:00 PM EDT [facility]) Name Value Range Interpretation Code Description Data Sandra rce(s) Supporting Document(s) Hemoglobin A1c/Hemoglobin.total in Blood 11.3 % Hemoglobin a1C [place] ([facility]) estimated average glucose 278 mg/dL 60-110 Above high norm al Estimated Average Glucose [place] ([facility]) ID Date Data Source [id number] 04/07/2021 04:34:00 PM EDT [facility] ([facility], ) Name Value Range Interpretation Code Description Data Sandra rce(s) Supporting Document(s) Antinuclear Antibodies Direct Laboratory test result [facility] ([facility], ) Performed at: - [address] [id number] [employer] Gager Apprentice: Jaime Chaney MD, Phone: [phone] Performed at: [facility] Lab[address] [id number] [employer] G[employer] Apprentice: Andria Dinh MD, Phone: [phone] ID Date Data Source [id number] 04/07/2021 04:34:00 PM EDT [facility] ([facility], ) Name Value Range Interpretation Code Description Data Sandra rce(s) Supporting Document(s) Thiamine [Mass/volume] in Blood 134.8 nmol/L 66.5-200.0 [facility], ) Specimen Comment: Test(s) [id number] E(Alpha Tocopherol); 931310- Specimen Comment: Vitamin E(Gamma Tocopherol); 544134-Ykvgyed B6; 097848- Specimen Comment: Vit. B1, Whole Blood Specimen Comment: was developed and its performance characteristics Specimen Comment: determined by [facility]. It has not been cleared or approved Specimen Comment: by the Food and Drug Administration. Pyridoxine [Mass/volume] in Serum or Plasma 13.4 ug/L 5.3-46.7 [facility] ([facility], ) Specimen Comment: Test(s) 062387-Qrtfqec E(Alpha Tocopherol); 257771- Specimen Comment: Vitamin E(Gamma Tocopherol); 048689-Czzezou B6; 257775- Specimen Comment: Vit. B1, Whole Blood Specimen Comment: was developed and its performance characteristics Specimen Comment: determined by [facility]. It has not been cleared or approved Specimen Comment: by the Food and Drug Administration. ID Date Data Source [id number] 04/07/2021 04:34:00 PM EDT [facility] ([facility], ) Name Value Range Interpretation Code Description Data Sandra rce(s) Supporting Document(s) Vitamin E(Alpha Tocopherol) 6.2 mg/L 7.0-25.1 [facility] ([facility], ) Vitamin E(Gamma Tocopherol) 0.7 mg/L 0.5-5.5 [facility] ([facility]) Reference intervals for alpha and gamma- tocopherol determined from National Health and Nutrition Examination Survey, 9202-7861. Individuals with alpha-tocopherol levels less than 5.0 mg/L are considered vitamin E deficient. ID Date Data Source [id number] 04/07/2021 04:34:00 PM EDT [facility] ([facility], ) Name Value Range Interpretation Code Description Data Sandra rce(s) Supporting Document(s) Rheumatoid factor [Units/volume] in Serum or Plasma Laboratory test result [facility] ([facility], ) <content>note:<nlbl:demographic_changed> </content>
<content></content> ID Date Data Source [id number] 04/07/2021 04:34:00 PM EDT [facility] ([facility], ) Name Value Range Interpretation Code Description Data Sandra rce(s) Supporting Document(s) Vitamin B12 Level 493 pg/mL [facility] ([facility], ) VITAMIN B12 NORMAL RANGE NORMAL 247 - 911 PG/ML INDETERMINATE 211 - 246 PG/ML DEFICIENT LESS THAN 211 PG/ML Folate 17.7 ng/mL [facility] ([facility], ) FOLATE NORMAL RANGE NORMAL GREATER THAN 5.4 NG/ML INDETERMINATE 3.4-5.4 NG/ML DEFICIENT LESS THAN 3.4 NG/ML ID Date Data Source [id number] 04/07/2021 04:34:00 PM EDT [facility] ([facility], ) Name Value Range Interpretation Code Description Data Sandra rce(s) Supporting Document(s) Albumin % 60.8 % 55.8-66.1 [facility] ([facility], ) Elsok-4-Buhqifjj % 3.4 % 2.9-4.9 [facility] Bgqan-2-Bcbwyzujf % 10.3 % 7.1-11.8 [facility] ([facility]) Ygmw-3-Eendsovwy % 5.5 % 4.7-7.2 [facility] ([facility]) Lrei-9-Zgnzqrblm % 5.7 % 3.2-6.5 [facility] ([facility]) Albumin 4.44 GM/DL 3.29-5.55 [facility] ([facility]) Gamma Globulin % 14.3 % 11.1-18.8 [facility] ([facility]) Kniaf-8-Rowjvnjpt 0.25 GM/DL 0.17-0.41 [facility] ([facility]) Enraa-2-Oxnyxbnii 0.75 GM/DL 0.42-0.99 [facility] ([facility]) Jrst-5-Dahlkidqv 0.42 GM/DL 0.19-0.55 [facility] ([facility]) Icjz-8-Ukwuimell 0.40 GM/DL 0.28-0.60 [facility] ([facility]) Gamma Globulins 1.04 GM/DL 0.65-1.58 [facility] ([facility]) Total Protein 7.3 GM/DL 6.4-8.2 [facility] ([facility]) Spep Interpretation Laboratory test result [facility] ([facility]) NO M-SPIKE(S)NOTED. Laboratory test finding (navigational concept) Laboratory test result [facility] ([facility]) REV'D BY Anna KUMAR ID Date Data Source [id number] 04/07/2021 04:34:00 PM EDT [facility]) Name Value Range Interpretation Code Description Data Sandra rce(s) Supporting Document(s) Hemoglobin A1c 11.3 % [facility] ([facility]) <content>REFERENCE RANGES:</content><br/ ><content></content>
<content><=5.6% NORMAL</content>
<content>5.7-6.4% SUGGESTS IMPAIRED GLUCOSE METABOLISM/PREDIABETIC</content>
<content>>= 6.5% ABNORMAL</content>
<content></content> Estimated Average Glucose 278 mg/dL 60-110 [facility] ([facility]) ID Date Data Source [id number] 04/07/2021 04:34:00 PM EDT [facility]) Name Value Range Interpretation Code Description Data Sandra rce(s) Supporting Document(s) antinuclear antibodies direct negative negative Antinu clear Antibodies Direct [facility]) ID Date Data Source [id number] 04/07/2021 04:34:00 PM EDT [facility]) Name Value Range Interpretation Code Description Data Sandra rce(s) Supporting Document(s) vitamin B6,pyridoxal phosphate 13.4 ug/L 5.3-46.7 Vitamin B6,Pyridoxal Phosphate [facility]) ID Date Data Source [id number] 04/07/2021 04:34:00 PM EDT [facility]) Name Value Range Interpretation Code Description Data Sandra rce(s) Supporting Document(s) vitamin B1 level whole blood 134.8 nmol/L 66.5-200.0 Vitamin B1 Level Whole Blood [facility]) ID Date Data Source [id number] 04/07/2021 04:34:00 PM EDT [facility]) Name Value Range Interpretation Code Description Data Sandra rce(s) Supporting Document(s) vitamin E(alpha tocopherol) 6.2 mg/L 7.0-25.1 Below low nor mal Vitamin E(alpha Tocopherol) [place] ([facility]) vitamin E(gamma tocopherol) 0.7 mg/L 0.5-5.5 Vitamin E(gamma Tocopherol) [facility]) ID Date Data Source [id number] 04/07/2021 04:34:00 PM EDT [facility]) Name Value Range Interpretation Code Description Data Sandra rce(s) Supporting Document(s) rheumatoid factor quant < 10.0 <15.0 Rheumatoid F actor Quant [place] ([facility]) ID Date Data Source [id number] 04/07/2021 04:34:00 PM EDT [place] ([facility]) Name Value Range Interpretation Code Description Data Sandra rce(s) Supporting Document(s) vitamin B12 level 493 pg/mL Vitamin B12 Level [facility]) folate 17.7 NG/mL Folate [place] ([facility]) ID Date Data Source [id number] 04/07/2021 04:34:00 PM EDT [place] ([facility]) Name Value Range Interpretation Code Description Data Sandra rce(s) Supporting Document(s) xcrne-3-apggdwlj % 3.4 % 2.9-4.9 Eqzlw-9-Bbefdsbd % [facility]) albumin % 60.8 % 55.8-66.1 Albumin % [facility]) eity-5-hetxcnhsk % 5.7 % 3.2-6.5 Jpib-3-Xvgiuzjlv % [facility]) ycwb-0-owuxnpokd % 5.5 % 4.7-7.2 Gbpw-8-Johpaknnm % [facility]) nmicg-7-mmilnhhgv % 10.3 % 7.1-11.8 Glbxb-7-Yyaoziqm s % [facility]) albumin 4.44 gm/dL 3.29-5.55 Albumin [facility]) pvxcj-4-dyvyszmyx 0.25 gm/dL 0.17-0.41 Bspgr-1-Iwchnzrar [facility]) gamma globulin % 14.3 % 11.1-18.8 Gamma Globulin % AT [facility]) rjni-0-vodfgwgea 0.42 gm/dL 0.19-0.55 Date-3-Dyvsxqies AT [facility]) buzt-0-acfnwveae 0.40 gm/dL 0.28-0.60 Tmfw-3-Eqwziyjoj AT [place] ([facility]) opegg-9-nmhsateve 0.75 gm/dL 0.42-0.99 Btmbf-3-Ltcdtvtpx [place] ([facility]) gamma globulins 1.04 gm/dL 0.65-1.58 Gamma Globulins [facility] ([facility]) spep interpretation see comment Spep Interpreta tion [place] ([facility]) total protein 7.3 gm/dL 6.4-8.2 Total Protein [place] ( [facility]) spep pathologist review rev'd by Anna kumar Spep Pathologist Review [place] ([facility]) ID Date Data Source [id number] 04/07/2021 04:34:00 PM EDT [place] ([facility]) Name Value Range Interpretation Code Description Data Sandra rce(s) Supporting Document(s) PTT lupus type anticoag screen 0-1.2 PTT L upus Type Anticoag Screen [place] ([facility]) ID Date Data Source [id number] 04/07/2021 04:34:00 PM EDT [place] ([facility]) Name Value Range Interpretation Code Description Data Sandra rce(s) Supporting Document(s) erythrocyte sedimentation rate 3 mm/HR 0-20 Eryth rocyte Sedimentation Rate [place] ([facility]) ID Date Data Source [id number] 04/07/2021 04:34:00 PM EDT [place] ([facility]) Name Value Range Interpretation Code Description Data Sandra rce(s) Supporting Document(s) estimated average glucose 278 mg/dL 60-110 Above high norm al Estimated Average Glucose [place] ([facility]) Hemoglobin A1c/Hemoglobin.total in Blood 11.3 % Hemoglobin a1C [place] ([facility]) ID Date Data Source [id number] 04/07/2021 04:34:00 PM EDT [place] ([facility]) Name Value Range Interpretation Code Description Data Sandra rce(s) Supporting Document(s) PTT Lupus Type Anticoag Screen 0.8 0-1.2 [facility] ([facility]) RESULT IS LESS THAN 1.2, NO FURTHER TEST ING INDICATED. INTERPRETATION This test is to screen those individuals that may have a circulating lupus anticoagulant. If the LA Screen test is normal, and/or the LA Confirm test is normal, the presence of a Lupus Anticoagulant (LA) is unlikely, but does not completely exclude LA-like activity. If both tests or the LA Confirm test are elevated, the specimen will be reflexed to a hexagonal phase phospholipid test through our reference laboratory for confirmation. A positive hexagonal phase phospholipid is indicative of LA. A negative hexagonal phase phospholipid test may indicate a coagulation factor deficiency or a specific inhibitor. ID Date Data Source [id number] 04/07/2021 04:34:00 PM EDT [facility] ([facility], ) Name Value Range Interpretation Code Description Data Sandra rce(s) Supporting Document(s) Erythrocyte sedimentation rate by 2H Westergren method 3 mm/hr 0-2 0 [facility] ([facility], ) ID Date Data Source [id number] 03/10/2021 08:51:00 AM EDT [facility]) Name Value Range Interpretation Code Description Data Sandra rce(s) Supporting Document(s) Hemoglobin A1c/Hemoglobin.total in Blood 13.2 % Abnormal (applies to non- numeric results) [facility]) ID Date Data Source [id number] 03/10/2021 08:51:00 AM EDT [facility]) Name Value Range Interpretation Code Description Data Sandra rce(s) Supporting Document(s) Hemoglobin A1c/Hemoglobin.total in Blood 13.2 % Abnormal (applies to non- numeric results) [facility] [place] ([facility]) ID Date Data Source [id number] 03/10/2021 08:51:00 AM EDT [facility]) Name Value Range Interpretation Code Description Data Sandra rce(s) Supporting Document(s) Hemoglobin A1c/Hemoglobin.total in Blood 13.2 % Abnormal (applies to non- numeric results) [facility] [place] ([facility]) ID Date Data Source [id number] 03/10/2021 08:51:00 AM EDT [place] ([facility]) Name Value Range Interpretation Code Description Data Sandra rce(s) Supporting Document(s) Hemoglobin A1c/Hemoglobin.total in Blood 13.2 % Abnormal (applies to non- numeric results) [facility] [place] ([facility]) ID Date Data Source [id number] 03/10/2021 08:51:00 AM EDT [place] ([facility]) Name Value Range Interpretation Code Description Data Sandra rce(s) Supporting Document(s) Hemoglobin A1c/Hemoglobin.total in Blood 13.2 % Abnormal (applies to non- numeric results) [facility] [place] ([facility]) ID Date Data Source [id number] 03/10/2021 08:51:00 AM EDT [place] ([facility]) Name Value Range Interpretation Code Description Data Sandra rce(s) Supporting Document(s) Hemoglobin A1c/Hemoglobin.total in Blood 13.2 % Abnormal (applies to non- numeric results) [facility] [place] ([facility]) ID Date Data Source [id number] 03/09/2021 08:39:00 AM EDT [place] ([facility]) Name Value Range Interpretation Code Description Data Sandra rce(s) Supporting Document(s) creatinine, urine 52.7 mg/dL Creatinine, Urine [place] ([facility]) malb urine siemens 35.3 mg/L Malb Urine Siemen s [place] ([facility]) jesse/creat ratio 66.9 mcg/mg 0.0-30.0 Above high normal Jesse/creat Ra susy [place] ([facility]) ID Date Data Source [id number] 03/09/2021 08:39:00 AM EDT [place] ([facility]) Name Value Range Interpretation Code Description Data Sandra rce(s) Supporting Document(s) cholesterol level 145 mg/dL <200 Cholesterol Level [facility] ([facility]) triglycerides level 176 mg/dL <150 Above high normal Triglycer ides Level [facility] ([facility]) HDL cholesterol 47 mg/dL >40 HDL Cholesterol ATHE NA ([facility]) cholesterol risk ratio <5 Cholesterol R isk Ratio [facility] ([facility]) non-HDL-C 98 mg/dL Non-hdl-c [facility] ([facility]) Cholesterol in LDL [Mass/volume] in Serum or Plasma 63 mg/dL <1 00 LDL Cholesterol [facility] ([facility]) ID Date Data Source [id number] 03/09/2021 08:39:00 AM EDT [facility] ([facility]) Name Value Range Interpretation Code Description Data Sandra rce(s) Supporting Document(s) glucose, fasting 326 mg/dL 70-100 Above high normal Glucose, Fas ting [facility] ([facility]) blood urea nitrogen 15 mg/dL 7-18 Blood Urea Nitro gen [facility] ([facility]) creatinine for GFR 1.04 mg/dL 0.70-1.30 Creatinine for GF R [facility] ([facility]) glomerular filtration rate > 60.0 >56 Glomerula r Filtration Rate [facility] ([facility]) potassium serum 4.3 mEq/L 3.5-5.1 Potassium Serum ATHE NA ([facility]) sodium level 137 mEq/L 136-145 Sodium Level [facility] ([facility]) anion gap 4 mEq/L 8-16 Below low normal Anion Gap [facility] ( [facility]) chloride level 102 mEq/L 98-107 Chloride Level [facility] ([facility]) carbon dioxide level 31 mEq/L 21-32 Carbon Dioxide Level [facility] ([facility]) ALT/SGPT 29 U/L 12-78 ALT/SGPT [facility] ([facility]) AST/SGOT 11 U/L 7-37 AST/SGOT [facility] ([facility]) calcium level 9.3 mg/dL 8.5-10.1 Calcium Level [facility] ( [facility]) alkaline phosphatase 74 U/L 45-117 Alkaline Phosph atase [facility] ([facility]) bilirubin,total 1.1 mg/dL 0.2-1.0 Above high normal Bilirubin,tot al [facility] ([facility]) total protein 7.9 gm/dL 6.4-8.2 Total Protein [facility] ( [facility]) albumin 4.2 gm/dL 3.2-5.2 Albumin [facility] ([facility]) albumin/globulin ratio Albumin/globu jose l Ratio [place] ([facility]) ID Date Data Source [id number] 03/09/2021 08:39:00 AM EDT [place] ([facility]) Name Value Range Interpretation Code Description Data Sandra rce(s) Supporting Document(s) white blood count 6.3 10 4.0-10.0 White Blood Count [facility] ([facility]) red blood count 5.76 10 4.30-6.10 Red Blood Count [facility] ([facility]) hemoglobin 18.4 g/dL 13.5-17.5 Above high normal Hemoglobin [place] ([facility]) mean corpuscular volume 90.1 fL 80.0-96.0 Mean Corpusc ular Volume [facility] ([facility]) hematocrit 51.9 % 42.0-52.0 Hematocrit [facility] ([facility]) red cell distribution width 12.7 % 11.5-14.5 Red Cell Distribution Width [facility] ([facility]) mean corpuscular hemoglobin 31.9 pg 27.0-33.0 Mean Cor puscular Hemoglobin [facility] ([facility]) mean corpuscular HGB conc 35.5 g/dL 32.0-36.5 Mean Corpu scular HGB Conc [facility] ([facility]) neutrophils % 59.4 % 36.0-66.0 Neutrophils % [facility] ( [facility]) platelet count, automated 171 10 150-450 Platelet C ount, Automated [facility] ([facility]) mono % 9.4 % 2.0-8.0 Above high normal [place] % [facility] ([facility]) eos % 1.8 % 0.0-3.0 Eos % [facility] ([facility]) lymph % 28.3 % 24.0-44.0 Lymph % [place] ([facility]) immature granulocyte % 0.6 % 0-3.0 Immature Gran ulocyte % [facility] ([facility]) baso % 0.5 % 0.0-1.0 Baso % [place] ([facility]) nucleated red blood cell % 0.0 % 0-0 Nucleated Red Blood Cell % [place] ([facility]) neutrophils # 3.7 10 1.5-8.5 Neutrophils # [facility] ( [facility]) mono # 0.6 10 0.0-0.8 [place] # [facility] ([facility]) lymph # 1.8 10 1.5-5.0 Lymph # [facility] ([facility]) baso # 0.0 10 0.0-0.2 Baso # [facility] ([facility]) eos # 0.1 10 0.0-0.5 Eos # [facility] ([facility]) ID Date Data Source [id number] 03/09/2021 08:39:00 AM EDT [place] ([facility]) Name Value Range Interpretation Code Description Data Sandra rce(s) Supporting Document(s) creatinine, urine 52.7 mg/dL Creatinine, Urine [place] ([facility]) jesse/creat ratio 66.9 mcg/mg 0.0-30.0 Above high normal Jesse/creat Ra susy [facility] ([facility]) malb urine siemens 35.3 mg/L Malb Urine Siemen s [facility] ([facility]) ID Date Data Source [id number] 03/09/2021 08:39:00 AM EDT [place] ([facility]) Name Value Range Interpretation Code Description Data Sandra rce(s) Supporting Document(s) triglycerides level 176 mg/dL <150 Above high normal Triglycer ides Level [facility] ([facility]) Cholesterol in LDL [Mass/volume] in Serum or Plasma 63 mg/dL <1 00 LDL Cholesterol [facility] ([facility]) cholesterol level 145 mg/dL <200 Cholesterol Level [facility] ([facility]) HDL cholesterol 47 mg/dL >40 HDL Cholesterol [facility] ([facility]) non-HDL-C 98 mg/dL Non-hdl-c [facility] ([facility]) cholesterol risk ratio <5 Cholesterol R isk Ratio [facility] ([facility]) ID Date Data Source [id number] 03/09/2021 08:39:00 AM EDT [facility] ([facility]) Name Value Range Interpretation Code Description Data Sandra rce(s) Supporting Document(s) glucose, fasting 326 mg/dL 70-100 Above high normal Glucose, Fas ting [facility] ([facility]) creatinine for GFR 1.04 mg/dL 0.70-1.30 Creatinine for GF R [facility] ([facility]) blood urea nitrogen 15 mg/dL 7-18 Blood Urea Nitro gen [facility] ([facility]) potassium serum 4.3 mEq/L 3.5-5.1 Potassium Serum [facility] NA ([facility]) chloride level 102 mEq/L 98-107 Chloride Level [facility] ([facility]) glomerular filtration rate > 60.0 >56 Glomerula r Filtration Rate [facility] ([facility]) sodium level 137 mEq/L 136-145 Sodium Level [facility] ([facility]) anion gap 4 mEq/L 8-16 Below low normal Anion Gap [facility] ( [facility]) calcium level 9.3 mg/dL 8.5-10.1 Calcium Level [facility] ( [facility]) carbon dioxide level 31 mEq/L 21-32 Carbon Dioxide Level [facility] ([facility]) ALT/SGPT 29 U/L 12-78 ALT/SGPT [facility] ([facility]) AST/SGOT 11 U/L 7-37 AST/SGOT [facility] ([facility]) alkaline phosphatase 74 U/L 45-117 Alkaline Phosph atase [facility] ([facility]) bilirubin,total 1.1 mg/dL 0.2-1.0 Above high normal Bilirubin,tot al [facility] ([facility]) albumin 4.2 gm/dL 3.2-5.2 Albumin [facility] ([facility]) albumin/globulin ratio Albumin/globu jose l Ratio [facility] ([facility]) total protein 7.9 gm/dL 6.4-8.2 Total Protein [facility] ( [facility]) ID Date Data Source [id number] 03/09/2021 08:39:00 AM EDT [facility] ([facility]) Name Value Range Interpretation Code Description Data Sandra rce(s) Supporting Document(s) white blood count 6.3 10 4.0-10.0 White Blood Count [facility] ([facility]) hemoglobin 18.4 g/dL 13.5-17.5 Above high normal Hemoglobin [facility] ([facility]) red blood count 5.76 10 4.30-6.10 Red Blood Count [facility] ([facility]) hematocrit 51.9 % 42.0-52.0 Hematocrit [facility] ([facility]) mean corpuscular volume 90.1 fL 80.0-96.0 Mean Corpusc ular Volume [facility] ([facility]) mean corpuscular hemoglobin 31.9 pg 27.0-33.0 Mean Cor puscular Hemoglobin [facility] ([facility]) mean corpuscular HGB conc 35.5 g/dL 32.0-36.5 Mean Corpu scular HGB Conc [facility] ([facility]) red cell distribution width 12.7 % 11.5-14.5 Red Cell Distribution Width [facility] ([facility]) platelet count, automated 171 10 150-450 Platelet C ount, Automated [facility] ([facility]) neutrophils % 59.4 % 36.0-66.0 Neutrophils % [facility] ( [facility]) mono % 9.4 % 2.0-8.0 Above high normal [place] % [facility] ([facility]) lymph % 28.3 % 24.0-44.0 Lymph % [facility] ([facility]) eos % 1.8 % 0.0-3.0 Eos % [facility] ([facility]) baso % 0.5 % 0.0-1.0 Baso % [facility] ([facility]) immature granulocyte % 0.6 % 0-3.0 Immature Gran ulocyte % [facility] ([facility]) nucleated red blood cell % 0.0 % 0-0 Nucleated Red Blood Cell % [facility] ([facility]) eos # 0.1 10 0.0-0.5 Eos # [facility] ([facility]) mono # 0.6 10 0.0-0.8 [place] # [facility] ([facility]) lymph # 1.8 10 1.5-5.0 Lymph # [facility] ([facility]) neutrophils # 3.7 10 1.5-8.5 Neutrophils # [facility] ( [facility]) baso # 0.0 10 0.0-0.2 Baso # [facility] ([facility]) ID Date Data Source [id number] 03/09/2021 08:39:00 AM EDT [place] ([facility]) Name Value Range Interpretation Code Description Data Sandra rce(s) Supporting Document(s) malb urine siemens 35.3 mg/L Malb Urine Siemen s [facility] ([facility]) creatinine, urine 52.7 mg/dL Creatinine, Urine [place] ([facility]) jesse/creat ratio 66.9 mcg/mg 0.0-30.0 Above high normal Jesse/creat Ra susy [place] ([facility]) ID Date Data Source [id number] 03/09/2021 08:39:00 AM EDT [place] ([facility]) Name Value Range Interpretation Code Description Data Sandra rce(s) Supporting Document(s) Cholesterol in LDL [Mass/volume] in Serum or Plasma 63 mg/dL <1 00 LDL Cholesterol [facility] ([facility]) HDL cholesterol 47 mg/dL >40 HDL Cholesterol [facility] ([facility]) triglycerides level 176 mg/dL <150 Above high normal Triglycer ides Level [facility] ([facility]) cholesterol level 145 mg/dL <200 Cholesterol Level [facility] ([facility]) cholesterol risk ratio <5 Cholesterol R isk Ratio [facility] ([facility]) non-HDL-C 98 mg/dL Non-hdl-c [facility] ([facility]) ID Date Data Source [id number] 03/09/2021 08:39:00 AM EDT [place] ([facility]) Name Value Range Interpretation Code Description Data Sandra rce(s) Supporting Document(s) glomerular filtration rate > 60.0 >56 Glomerula r Filtration Rate [facility] ([facility]) glucose, fasting 326 mg/dL 70-100 Above high normal Glucose, Fas ting [facility] ([facility]) blood urea nitrogen 15 mg/dL 7-18 Blood Urea Nitro gen [facility] ([facility]) creatinine for GFR 1.04 mg/dL 0.70-1.30 Creatinine for GF R [facility] ([facility]) potassium serum 4.3 mEq/L 3.5-5.1 Potassium Serum [facility] ([facility]) sodium level 137 mEq/L 136-145 Sodium Level [facility] ([facility]) chloride level 102 mEq/L 98-107 Chloride Level [facility] ([facility]) carbon dioxide level 31 mEq/L 21-32 Carbon Dioxide Level [facility] ([facility]) AST/SGOT 11 U/L 7-37 AST/SGOT [facility] ([facility]) anion gap 4 mEq/L 8-16 Below low normal Anion Gap [facility] ( [facility]) calcium level 9.3 mg/dL 8.5-10.1 Calcium Level [facility] ( [facility]) alkaline phosphatase 74 U/L 45-117 Alkaline Phosph atase [facility] ([facility]) ALT/SGPT 29 U/L 12-78 ALT/SGPT [facility] ([facility]) bilirubin,total 1.1 mg/dL 0.2-1.0 Above high normal Bilirubin,tot al [facility] ([facility]) total protein 7.9 gm/dL 6.4-8.2 Total Protein [facility] ( [facility]) albumin 4.2 gm/dL 3.2-5.2 Albumin [facility] ([facility]) albumin/globulin ratio Albumin/globu jose l Ratio [facility] ([facility]) ID Date Data Source [id number] 03/09/2021 08:39:00 AM EDT [facility] ([facility]) Name Value Range Interpretation Code Description Data Sandra rce(s) Supporting Document(s) red blood count 5.76 10 4.30-6.10 Red Blood Count [facility] ([facility]) white blood count 6.3 10 4.0-10.0 White Blood Count [facility] ([facility]) hemoglobin 18.4 g/dL 13.5-17.5 Above high normal Hemoglobin [facility] ([facility]) mean corpuscular volume 90.1 fL 80.0-96.0 Mean Corpusc ular Volume [facility] ([facility]) hematocrit 51.9 % 42.0-52.0 Hematocrit [facility] ([facility]) mean corpuscular hemoglobin 31.9 pg 27.0-33.0 Mean Cor puscular Hemoglobin [facility] ([facility]) mean corpuscular HGB conc 35.5 g/dL 32.0-36.5 Mean Corpu scular HGB Conc [facility] ([facility]) red cell distribution width 12.7 % 11.5-14.5 Red Cell Distribution Width [facility] ([facility]) lymph % 28.3 % 24.0-44.0 Lymph % [facility] ([facility]) mono % 9.4 % 2.0-8.0 Above high normal [place] % [facility] ([facility]) platelet count, automated 171 10 150-450 Platelet C ount, Automated [facility] ([facility]) neutrophils % 59.4 % 36.0-66.0 Neutrophils % [facility] ( [facility]) immature granulocyte % 0.6 % 0-3.0 Immature Gran ulocyte % [facility] ([facility]) baso % 0.5 % 0.0-1.0 Baso % [facility] ([facility]) eos % 1.8 % 0.0-3.0 Eos % [facility] ([facility]) lymph # 1.8 10 1.5-5.0 Lymph # [facility] ([facility]) mono # 0.6 10 0.0-0.8 [place] # [facility] ([facility]) nucleated red blood cell % 0.0 % 0-0 Nucleated Red Blood Cell % [facility] ([facility]) neutrophils # 3.7 10 1.5-8.5 Neutrophils # [facility] ( [facility]) eos # 0.1 10 0.0-0.5 Eos # [facility] ([facility]) baso # 0.0 10 0.0-0.2 Baso # [facility] ([facility]) ID Date Data Source [id number] 03/09/2021 08:39:00 AM EDT [place] ([facility]) Name Value Range Interpretation Code Description Data Sandra rce(s) Supporting Document(s) creatinine, urine 52.7 mg/dL Creatinine, Urine [facility] ([facility]) malb urine [place]ens 35.3 mg/L Malb Urine Siemen s [facility] ([facility]) jesse/creat ratio 66.9 mcg/mg 0.0-30.0 Above high normal Jesse/creat Ra susy [facility] ([facility]) ID Date Data Source [id number] 03/09/2021 08:39:00 AM EDT [place] ([facility]) Name Value Range Interpretation Code Description Data Sandra rce(s) Supporting Document(s) cholesterol level 145 mg/dL <200 Cholesterol Level [facility] ([facility]) HDL cholesterol 47 mg/dL >40 HDL Cholesterol [facility] NA ([facility]) triglycerides level 176 mg/dL <150 Above high normal Triglycer ides Level [facility] ([facility]) non-HDL-C 98 mg/dL Non-hdl-c [facility] ([facility]) cholesterol risk ratio <5 Cholesterol R isk Ratio [facility] ([facility]) Cholesterol in LDL [Mass/volume] in Serum or Plasma 63 mg/dL <1 00 LDL Cholesterol [facility] ([facility]) ID Date Data Source [id number] 03/09/2021 08:39:00 AM EDT [facility] ([facility]) Name Value Range Interpretation Code Description Data Sandra rce(s) Supporting Document(s) blood urea nitrogen 15 mg/dL 7-18 Blood Urea Nitro gen [facility] ([facility]) glomerular filtration rate > 60.0 >56 Glomerula r Filtration Rate [facility] ([facility]) glucose, fasting 326 mg/dL 70-100 Above high normal Glucose, Fas ting [facility] ([facility]) creatinine for GFR 1.04 mg/dL 0.70-1.30 Creatinine for GF R [facility] ([facility]) sodium level 137 mEq/L 136-145 Sodium Level [facility] ([facility]) potassium serum 4.3 mEq/L 3.5-5.1 Potassium Serum [facility] ([facility]) chloride level 102 mEq/L 98-107 Chloride Level [place] ([facility]) carbon dioxide level 31 mEq/L 21-32 Carbon Dioxide Level [facility] ([facility]) calcium level 9.3 mg/dL 8.5-10.1 Calcium Level [facility] ( [facility]) AST/SGOT 11 U/L 7-37 AST/SGOT [facility] ([facility]) ALT/SGPT 29 U/L 12-78 ALT/SGPT [facility] ([facility]) anion gap 4 mEq/L 8-16 Below low normal Anion Gap [facility] ( [facility]) total protein 7.9 gm/dL 6.4-8.2 Total Protein [facility] ( [facility]) albumin 4.2 gm/dL 3.2-5.2 Albumin [facility] ([facility]) alkaline phosphatase 74 U/L 45-117 Alkaline Phosph atase [facility] ([facility]) bilirubin,total 1.1 mg/dL 0.2-1.0 Above high normal Bilirubin,tot al [facility] ([facility]) albumin/globulin ratio Albumin/globu jose l Ratio [facility] ([facility]) ID Date Data Source [id number] 03/09/2021 08:39:00 AM EDT [facility] ([facility]) Name Value Range Interpretation Code Description Data Sandra rce(s) Supporting Document(s) white blood count 6.3 10 4.0-10.0 White Blood Count [facility] ([facility]) hemoglobin 18.4 g/dL 13.5-17.5 Above high normal Hemoglobin [facility] ([facility]) red blood count 5.76 10 4.30-6.10 Red Blood Count [facility] ([facility]) hematocrit 51.9 % 42.0-52.0 Hematocrit [facility] ([facility]) mean corpuscular hemoglobin 31.9 pg 27.0-33.0 Mean Cor puscular Hemoglobin [facility] ([facility]) mean corpuscular HGB conc 35.5 g/dL 32.0-36.5 Mean Corpu scular HGB Conc [facility] ([facility]) mean corpuscular volume 90.1 fL 80.0-96.0 Mean Corpusc ular Volume [facility] ([facility]) red cell distribution width 12.7 % 11.5-14.5 Red Cell Distribution Width [place] ([facility]) platelet count, automated 171 10 150-450 Platelet C ount, Automated [facility] ([facility]) neutrophils % 59.4 % 36.0-66.0 Neutrophils % [facility] ( [facility]) baso % 0.5 % 0.0-1.0 Baso % [place] ([facility]) lymph % 28.3 % 24.0-44.0 Lymph % [facility] ([facility]) eos % 1.8 % 0.0-3.0 Eos % [facility] ([facility]) mono % 9.4 % 2.0-8.0 Above high normal [place] % [facility] ([facility]) neutrophils # 3.7 10 1.5-8.5 Neutrophils # [facility] ( [facility]) nucleated red blood cell % 0.0 % 0-0 Nucleated Red Blood Cell % [facility] ([facility]) immature granulocyte % 0.6 % 0-3.0 Immature Gran ulocyte % [facility] ([facility]) lymph # 1.8 10 1.5-5.0 Lymph # [facility] ([facility]) eos # 0.1 10 0.0-0.5 Eos # [facility] ([facility]) mono # 0.6 10 0.0-0.8 [place] # [facility] ([facility]) baso # 0.0 10 0.0-0.2 Baso # [facility] ([facility]) ID Date Data Source [id number] 03/09/2021 08:39:00 AM EDT [place] ([facility]) Name Value Range Interpretation Code Description Data Sandra rce(s) Supporting Document(s) malb urine siemens 35.3 mg/L Malb Urine Siemen s [facility] ([facility]) creatinine, urine 52.7 mg/dL Creatinine, Urine [facility] ([facility]) jesse/creat ratio 66.9 mcg/mg 0.0-30.0 Above high normal Jesse/creat Ra susy [facility] ([facility]) ID Date Data Source [id number] 03/09/2021 08:39:00 AM EDT [place] ([facility]) Name Value Range Interpretation Code Description Data Sandra rce(s) Supporting Document(s) cholesterol level 145 mg/dL <200 Cholesterol Level [facility] ([facility]) triglycerides level 176 mg/dL <150 Above high normal Triglycer ides Level [facility] ([facility]) HDL cholesterol 47 mg/dL >40 HDL Cholesterol [facility] [place] ([facility]) Cholesterol in LDL [Mass/volume] in Serum or Plasma 63 mg/dL <1 00 LDL Cholesterol [facility] ([facility]) cholesterol risk ratio <5 Cholesterol R isk Ratio [facility] ([facility]) non-HDL-C 98 mg/dL Non-hdl-c [facility] ([facility]) ID Date Data Source [id number] 03/09/2021 08:39:00 AM EDT [place] ([facility]) Name Value Range Interpretation Code Description Data Sandra rce(s) Supporting Document(s) glucose, fasting 326 mg/dL 70-100 Above high normal Glucose, Fas ting [facility] ([facility]) blood urea nitrogen 15 mg/dL 7-18 Blood Urea Nitro gen [facility] ([facility]) creatinine for GFR 1.04 mg/dL 0.70-1.30 Creatinine for GF R [facility] ([facility]) potassium serum 4.3 mEq/L 3.5-5.1 Potassium Serum [facility] [place] ([facility]) glomerular filtration rate > 60.0 >56 Glomerula r Filtration Rate [facility] ([facility]) chloride level 102 mEq/L 98-107 Chloride Level [facility] ([facility]) sodium level 137 mEq/L 136-145 Sodium Level [facility] ([facility]) calcium level 9.3 mg/dL 8.5-10.1 Calcium Level [place] ( [facility]) carbon dioxide level 31 mEq/L 21-32 Carbon Dioxide Level [facility] ([facility]) anion gap 4 mEq/L 8-16 Below low normal Anion Gap [facility] ( [facility] [facility]) alkaline phosphatase 74 U/L 45-117 Alkaline Phosph atase [facility] ([facility]) bilirubin,total 1.1 mg/dL 0.2-1.0 Above high normal Bilirubin,tot al [facility] ([facility]) AST/SGOT 11 U/L 7-37 AST/SGOT [facility] ([facility]) ALT/SGPT 29 U/L 12-78 ALT/SGPT [place] ([facility]) albumin 4.2 gm/dL 3.2-5.2 Albumin [place] ([facility]) total protein 7.9 gm/dL 6.4-8.2 Total Protein [facility] ( [facility]) albumin/globulin ratio Albumin/globu jose l Ratio [facility] ([facility]) ID Date Data Source [id number] 03/09/2021 08:39:00 AM EDT [facility] ([facility]) Name Value Range Interpretation Code Description Data Sandra rce(s) Supporting Document(s) white blood count 6.3 10 4.0-10.0 White Blood Count [facility] ([facility]) red blood count 5.76 10 4.30-6.10 Red Blood Count ATHE ([facility]) hemoglobin 18.4 g/dL 13.5-17.5 Above high normal Hemoglobin [facility] ([facility]) mean corpuscular HGB conc 35.5 g/dL 32.0-36.5 Mean Corpu scular HGB Conc [facility] ([facility]) hematocrit 51.9 % 42.0-52.0 Hematocrit [facility] ([facility]) mean corpuscular hemoglobin 31.9 pg 27.0-33.0 Mean Cor puscular Hemoglobin [facility] ([facility]) mean corpuscular volume 90.1 fL 80.0-96.0 Mean Corpusc ular Volume [facility] ([facility]) platelet count, automated 171 10 150-450 Platelet C ount, Automated [facility] ([facility]) red cell distribution width 12.7 % 11.5-14.5 Red Cell Distribution Width [facility] ([facility]) neutrophils % 59.4 % 36.0-66.0 Neutrophils % [facility] ( [facility]) mono % 9.4 % 2.0-8.0 Above high normal [place] % [facility] ([facility]) lymph % 28.3 % 24.0-44.0 Lymph % [facility] ([facility]) eos % 1.8 % 0.0-3.0 Eos % [facility] ([facility]) immature granulocyte % 0.6 % 0-3.0 Immature Gran ulocyte % [facility] ([facility]) baso % 0.5 % 0.0-1.0 Baso % [facility] ([facility]) mono # 0.6 10 0.0-0.8 [place] # [facility] ([facility]) lymph # 1.8 10 1.5-5.0 Lymph # [facility] ([facility]) nucleated red blood cell % 0.0 % 0-0 Nucleated Red Blood Cell % [facility] ([facility]) neutrophils # 3.7 10 1.5-8.5 Neutrophils # [facility] ( [facility]) baso # 0.0 10 0.0-0.2 Baso # [facility] ([facility]) eos # 0.1 10 0.0-0.5 Eos # [facility] ([facility]) ID Date Data Source [id number] 03/09/2021 08:39:00 AM EDT [place] ([facility]) Name Value Range Interpretation Code Description Data Sandra rce(s) Supporting Document(s) creatinine, urine 52.7 mg/dL Creatinine, Urine [facility] ([facility]) jesse/creat ratio 66.9 mcg/mg 0.0-30.0 Above high normal Jesse/creat Ra susy [facility] ([facility]) malb urine siemens 35.3 mg/L Malb Urine Siemen s [facility] ([facility]) ID Date Data Source [id number] 03/09/2021 08:39:00 AM EDT [place] ([facility]) Name Value Range Interpretation Code Description Data Sandra rce(s) Supporting Document(s) cholesterol level 145 mg/dL <200 Cholesterol Level [facility] ([facility]) triglycerides level 176 mg/dL <150 Above high normal Triglycer ides Level [facility] ([facility]) Cholesterol in LDL [Mass/volume] in Serum or Plasma 63 mg/dL <1 00 LDL Cholesterol [facility] ([facility]) non-HDL-C 98 mg/dL Non-hdl-c [facility] ([facility]) HDL cholesterol 47 mg/dL >40 HDL Cholesterol ATHE NA ([facility]) cholesterol risk ratio <5 Cholesterol R isk Ratio [place] ([facility]) ID Date Data Source [id number] 03/09/2021 08:39:00 AM EDT [facility] ([facility]) Name Value Range Interpretation Code Description Data Snadra rce(s) Supporting Document(s) creatinine for GFR 1.04 mg/dL 0.70-1.30 Creatinine for GF R [facility] ([facility]) glomerular filtration rate > 60.0 >56 Glomerula r Filtration Rate [facility] ([facility]) glucose, fasting 326 mg/dL 70-100 Above high normal Glucose, Fas ting [facility] ([facility]) blood urea nitrogen 15 mg/dL 7-18 Blood Urea Nitro gen [facility] ([facility]) potassium serum 4.3 mEq/L 3.5-5.1 Potassium Serum [facility] ([facility]) sodium level 137 mEq/L 136-145 Sodium Level [facility] ([facility]) chloride level 102 mEq/L 98-107 Chloride Level [facility] ([facility]) anion gap 4 mEq/L 8-16 Below low normal Anion Gap [facility] ( [facility]) calcium level 9.3 mg/dL 8.5-10.1 Calcium Level [facility] ( [facility]) carbon dioxide level 31 mEq/L 21-32 Carbon Dioxide Level [facility] ([facility]) bilirubin,total 1.1 mg/dL 0.2-1.0 Above high normal Bilirubin,tot al [facility] ([facility]) AST/SGOT 11 U/L 7-37 AST/SGOT [facility] ([facility]) alkaline phosphatase 74 U/L 45-117 Alkaline Phosph atase [facility] ([facility]) ALT/SGPT 29 U/L 12-78 ALT/SGPT [facility] ([facility]) total protein 7.9 gm/dL 6.4-8.2 Total Protein [facility] ( [facility]) albumin/globulin ratio Albumin/globu jose l Ratio [facility] ([facility]) albumin 4.2 gm/dL 3.2-5.2 Albumin [facility] ([facility]) ID Date Data Source [id number] 03/09/2021 08:39:00 AM EDT [facility] ([facility]) Name Value Range Interpretation Code Description Data Sandra rce(s) Supporting Document(s) white blood count 6.3 10 4.0-10.0 White Blood Count [facility] ([facility]) red blood count 5.76 10 4.30-6.10 Red Blood Count ATHE NA ([facility]) hemoglobin 18.4 g/dL 13.5-17.5 Above high normal Hemoglobin [facility] ([facility]) hematocrit 51.9 % 42.0-52.0 Hematocrit [facility] ([facility]) mean corpuscular HGB conc 35.5 g/dL 32.0-36.5 Mean Corpu scular HGB Conc [facility] ([facility]) mean corpuscular hemoglobin 31.9 pg 27.0-33.0 Mean Cor puscular Hemoglobin [facility] ([facility]) mean corpuscular volume 90.1 fL 80.0-96.0 Mean Corpusc ular Volume [facility] ([facility]) red cell distribution width 12.7 % 11.5-14.5 Red Cell Distribution Width [facility] ([facility]) platelet count, automated 171 10 150-450 Platelet C ount, Automated [facility] ([facility]) neutrophils % 59.4 % 36.0-66.0 Neutrophils % [facility] ( [facility]) mono % 9.4 % 2.0-8.0 Above high normal [place] % [facility] ([facility]) lymph % 28.3 % 24.0-44.0 Lymph % [facility] ([facility]) eos % 1.8 % 0.0-3.0 Eos % [facility] ([facility]) baso % 0.5 % 0.0-1.0 Baso % [facility] ([facility]) immature granulocyte % 0.6 % 0-3.0 Immature Gran ulocyte % [facility] ([facility]) lymph # 1.8 10 1.5-5.0 Lymph # [facility] ([facility]) mono # 0.6 10 0.0-0.8 [place] # [facility] ([facility]) neutrophils # 3.7 10 1.5-8.5 Neutrophils # [place] ( [facility]) nucleated red blood cell % 0.0 % 0-0 Nucleated Red Blood Cell % [facility] ([facility]) baso # 0.0 10 0.0-0.2 Baso # [facility] ([facility]) eos # 0.1 10 0.0-0.5 Eos # [facility] ([facility]) ID Date Data Source [id number] 02/15/2021 08:58:00 AM EDT [facility]) Name Value Range Interpretation Code Description Data Sandra rce(s) Supporting Document(s) sars-cov-2 negative negative Sars-cov-2 [facility]) ID Date Data Source [id number] 02/15/2021 08:58:00 AM EDT [facility]) Name Value Range Interpretation Code Description Data Sandra rce(s) Supporting Document(s) sars-cov-2 negative negative Sars-cov-2 [facility]) ID Date Data Source [id number] 02/15/2021 08:58:00 AM EDT [facility]) Name Value Range Interpretation Code Description Data Sandra rce(s) Supporting Document(s) sars-cov-2 negative negative Sars-cov-2 [facility]) ID Date Data Source [id number] 02/15/2021 08:58:00 AM EDT [facility]) Name Value Range Interpretation Code Description Data Sandra rce(s) Supporting Document(s) sars-cov-2 negative negative Sars-cov-2 [facility]) ID Date Data Source [id number] 02/15/2021 08:58:00 AM EDT [place] ([facility]) Name Value Range Interpretation Code Description Data Sandra rce(s) Supporting Document(s) sars-cov-2 negative negative Sars-cov-2 [place] ([facility]) ID Date Data Source [id number] 02/15/2021 08:58:00 AM EDT [place] ([facility]) Name Value Range Interpretation Code Description Data Sandra rce(s) Supporting Document(s) sars-cov-2 negative negative Sars-cov-2 [place] ([facility]) ID Date Data Source [id number] 02/15/2021 08:58:00 AM EDT [place] ([facility]) Name Value Range Interpretation Code Description Data Sandra rce(s) Supporting Document(s) sars-cov-2 negative negative Sars-cov-2 [place] ([facility]) ID Date Data Source [id number] 02/15/2021 08:58:00 AM EDT [place] ([facility]) Name Value Range Interpretation Code Description Data Sandra rce(s) Supporting Document(s) sars-cov-2 negative negative Sars-cov-2 [place] ([facility]) ID Date Data Source [id number] 02/15/2021 08:56:00 AM EDT [facility] Name Value Range Interpretation Code Description Data Sandra rce(s) Supporting Document(s) SARS coronavirus 2 RdRp gene [Presence] in Respiratory specimen by ABHINAV with probe detection Not detected [facility] This lab was ordered by [facility] and reported by [facility]. ID Date Data Source [id number] 09/28/2020 12:00:00 AM EST [place] ([facility]) Name Value Range Interpretation Code Description Data Sandra rce(s) Supporting Document(s) Hemoglobin A1c/Hemoglobin.total in Blood 11.4 % Above high normal Hba1C [place] ([facility]) ID Date Data Source [id number] 09/28/2020 12:00:00 AM EST [facility] ([facility]) Name Value Range Interpretation Code Description Data Sandra rce(s) Supporting Document(s) Hemoglobin A1c/Hemoglobin.total in Blood 11.4 % Above high normal Hba1C [place] ([facility]) ID Date Data Source [id number] 09/28/2020 12:00:00 AM EST [facility]) Name Value Range Interpretation Code Description Data Sandra rce(s) Supporting Document(s) Hemoglobin A1c/Hemoglobin.total in Blood 11.4 % Above high normal Hba1C [place] ([facility]) ID Date Data Source [id number] 09/28/2020 12:00:00 AM EST [facility]) Name Value Range Interpretation Code Description Data Sandra rce(s) Supporting Document(s) Hemoglobin A1c/Hemoglobin.total in Blood 11.4 % Above high normal Hba1C [place] ([facility]) ID Date Data Source [id number] 09/28/2020 12:00:00 AM EST [facility]) Name Value Range Interpretation Code Description Data Sandra rce(s) Supporting Document(s) Hemoglobin A1c/Hemoglobin.total in Blood 11.4 % Above high normal H[facility]1C [place] ([facility]) ID Date Data Source [id number] 09/28/2020 12[facility] Name Value Range Interpretation Code Description Data Sandra rce(s) Supporting Document(s) Hemoglobin A1c/Hemoglobin.total in Blood 11.4 % Above high normal [facility]) ID Date Data Source [id number] 09/28/2020 12:00:00 AM EST [place] ([facility]) Name Value Range Interpretation Code Description Data Sandra rce(s) Supporting Document(s) Hemoglobin A1c/Hemoglobin.total in Blood 11.4 % Above high normal [facility]) ID Date Data Source [id number] 09/28/2020 12:00:00 AM EST [facility] ([facility]) Name Value Range Interpretation Code Description Data Sandra rce(s) Supporting Document(s) Hemoglobin A1c/Hemoglobin.total in Blood 11.4 % Above high normal [facility] [place] ([facility]) ID Date Data Source [id number] 09/28/2020 12:00:00 [facility] Name Value Range Interpretation Code Description Data Sandra rce(s) Supporting Document(s) Hemoglobin A1c/Hemoglobin.total in Blood 11.4 % Above high normal Hba1C [place] ([facility]) Procedure Social History Code Duration Value Status Description Data Source(s ) Smoking 06/28/2021 12:00:00 AM EDT Unknown if ever smoked comp leted Unknown if ever smoked [facility] ([facility]) Smoking 06/07/2021 12:00:00 AM EDT Unknown if ever smoked comp leted Unknown if ever smoked [facility] ([facility]) Vital Signs ID Date Data Source [id number] Name Value Range Interpretation Code Description Data Source(s) Diastolic blood pressure 87 mm[Hg] 87 mm[Hg] [facility] ([facility]) Body height 68 [in_i] 68 [in_i] [facility] ([facility]) Body mass index (BMI) [Ratio] 24.3 kg/m2 24.3 k g/m2 [facility] ([facility]) Systolic blood pressure 127 mm[Hg] 127 mm[Hg] A [facility] ([facility]) Body weight 2560 [oz_av] 2560 [oz_av] [facility] ([facility]) Body height 68 [in_i] 68 [in_i] [facility] ([facility]) Body height 68 [in_i] 68 [in_i] [facility] ([facility]) Diastolic blood pressure 81 mm[Hg] 81 mm[Hg] [facility] ([facility]) Diastolic blood pressure 81 mm[Hg] 81 mm[Hg] [facility] ([facility]) Body height 68 [in_i] 68 [in_i] [facility] ([facility]) Systolic blood pressure 145 mm[Hg] 145 mm[Hg] A [place] ([facility]) Diastolic blood pressure 81 mm[Hg] 81 mm[Hg] [facility] ([facility]) Body height 68 [in_i] 68 [in_i] [facility] ([facility]) Systolic blood pressure 145 mm[Hg] 145 mm[Hg] [facility] Body height 68 [in_i] 68 [in_i] [facility] ([facility]) Systolic blood pressure 145 mm[Hg] 145 mm[Hg] A THEN ([facility]) Body weight Measured 167.00 lbs Normal (applies to n on-numeric results) 167.00 lbs [facility] Body height 68 [in_i] 68 [in_i] [facility] ([facility]) Body height 68 [in_i] 68 [in_i] [facility] ([facility]) Body height 68 [in_i] 68 [in_i] [facility] ([facility]) Body height 68 [in_i] 68 [in_i] [facility] ([facility]) Body temperature 98.5 [degF] 98.5 [degF] [facility] ([facility]) Diastolic blood pressure 79 mm[Hg] 79 mm[Hg] [facility] ([facility]) Body height 68 [in_i] 68 [in_i] [facility] ([facility]) Body mass index (BMI) [Ratio] 25.8 kg/m2 25.8 k g/m2 [facility] ([facility]) Systolic blood pressure 120 mm[Hg] 120 mm[Hg] A [place] ([facility]) Body weight 2720 [oz_av] 2720 [oz_av] [facility] ([facility]) Diastolic blood pressure 79 mm[Hg] 79 mm[Hg] [facility] ([facility]) Body height 68 [in_i] 68 [in_i] [facility] ([facility]) Body mass index (BMI) [Ratio] 25.8 kg/m2 25.8 k g/m2 [facility] ([facility]) Systolic blood pressure 120 mm[Hg] 120 mm[Hg] A [facility] ([facility]) Body weight 2720 [oz_av] 2720 [oz_av] [facility] ([facility]) Systolic blood pressure 120 mm[Hg] 120 mm[Hg] A [place] ([facility]) Body weight 2720 [oz_av] 2720 [oz_av] [facility] ([facility]) Diastolic blood pressure 79 mm[Hg] 79 mm[Hg] [facility] ([facility]) Body height 68 [in_i] 68 [in_i] [facility] ([facility]) Body mass index (BMI) [Ratio] 25.8 kg/m2 25.8 k g/m2 [facility] ([facility]) Systolic blood pressure 120 mm[Hg] 120 mm[Hg] A [place] ([facility]) Body weight 2720 [oz_av] 2720 [oz_av] [facility] ([facility]) Diastolic blood pressure 79 mm[Hg] 79 mm[Hg] [facility] ([facility]) Body height 68 [in_i] 68 [in_i] [facility] ([facility]) Body mass index (BMI) [Ratio] 25.8 kg/m2 25.8 k g/m2 [facility] ([facility]) Systolic blood pressure 120 mm[Hg] 120 mm[Hg] A [place] ([facility]) Body weight 2720 [oz_av] 2720 [oz_av] [facility] ([facility]) Diastolic blood pressure 79 mm[Hg] 79 mm[Hg] [facility] ([facility]) Body height 68 [in_i] 68 [in_i] [facility] ([facility]) Body mass index (BMI) [Ratio] 25.8 kg/m2 25.8 k g/m2 [facility] ([facility]) Body height 68 [in_i] 68 [in_i] [facility] ([facility] 5'8" Heart rate 71 /min 71 /min [facility] ([facility] Systolic blood pressure 124 mm[Hg] 124 mm[Hg] M [facility] ([facility] Diastolic blood pressure 76 mm[Hg] 76 mm[Hg] [facility] ([facility] Body weight 160.00 [lb_av] 160.00 [lb_av] MED[facility] T ([facility] Body mass index (BMI) [Ratio] 24.3 kg/m2 24.3 k g/m2 [facility] ([facility] Body temperature 97.3 [degF] 97.3 [degF] [facility] ([facility]) Diastolic blood pressure 87 mm[Hg] 87 mm[Hg] [facility] ([facility]) Body height 68 [in_i] 68 [in_i] [facility] ([facility]) Body mass index (BMI) [Ratio] 25.8 kg/m2 25.8 k g/m2 [facility] ([facility]) Systolic blood pressure 132 mm[Hg] 132 mm[Hg] A [facility] ([facility]) Body weight 2720 [oz_av] 2720 [oz_av] [facility] ([facility]) Diastolic blood pressure 87 mm[Hg] 87 mm[Hg] [facility] ([facility]) Body height 68 [in_i] 68 [in_i] [facility] ([facility]) Body mass index (BMI) [Ratio] 25.8 kg/m2 25.8 k g/m2 [facility] ([facility]) Systolic blood pressure 132 mm[Hg] 132 mm[Hg] [facility] Body weight 2720 [oz_av] 2720 [oz_av] [facility] ([facility]) Diastolic blood pressure 87 mm[Hg] 87 mm[Hg] [facility] ([facility]) Body height 68 [in_i] 68 [in_i] [facility] ([facility]) Body mass index (BMI) [Ratio] 25.8 kg/m2 25.8 k g/m2 [facility] ([facility]) Systolic blood pressure 132 mm[Hg] 132 mm[Hg] A [facility] ([facility]) Body weight 2720 [oz_av] 2720 [oz_av] [facility] ([facility]) Diastolic blood pressure 87 mm[Hg] 87 mm[Hg] [facility] ([facility]) Body height 68 [in_i] 68 [in_i] [facility] ([facility]) Body mass index (BMI) [Ratio] 25.8 kg/m2 25.8 k g/m2 [facility] ([facility]) Systolic blood pressure 132 mm[Hg] 132 mm[Hg] A [facility] ([facility]) Body weight 2720 [oz_av] 2720 [oz_av] [facility] ([facility]) Diastolic blood pressure 87 mm[Hg] 87 mm[Hg] [facility] ([facility]) Body height 68 [in_i] 68 [in_i] [facility] ([facility]) Body mass index (BMI) [Ratio] 25.8 kg/m2 25.8 k g/m2 [facility] ([facility]) Systolic blood pressure 132 mm[Hg] 132 mm[Hg] A [facility] ([facility]) Body weight 2720 [oz_av] 2720 [oz_av] [facility] ([facility]) Diastolic blood pressure 87 mm[Hg] 87 mm[Hg] [facility] ([facility]) Body height 68 [in_i] 68 [in_i] [facility] ([facility]) Body mass index (BMI) [Ratio] 25.8 kg/m2 25.8 k g/m2 [facility] ([facility]) Systolic blood pressure 132 mm[Hg] 132 mm[Hg] A [facility] ([facility]) Body weight 2720 [oz_av] 2720 [oz_av] [facility] ([facility]) Body height 68 [in_i] 68 [in_i] [facility] ([facility]) Body height 68 [in_i] 68 [in_i] [facility] ([facility]) Body height 68 [in_i] 68 [in_i] [facility] ([facility]) Body height 68 [in_i] 68 [in_i] [facility] ([facility]) Body height 68 [in_i] 68 [in_i] [facility] ([facility]) Body height 68 [in_i] 68 [in_i] [facility] ([facility]) Body height 68 [in_i] 68 [in_i] [facility] ([facility]) Diastolic blood pressure 72 mm[Hg] 72 mm[Hg] [facility] ([facility]) Body height 68 [in_i] 68 [in_i] [facility] ([facility]) Body mass index (BMI) [Ratio] 26.2 kg/m2 26.2 k g/m2 [facility] ([facility]) Systolic blood pressure 124 mm[Hg] 124 mm[Hg] A [facility] ([facility]) Body weight 2754 [oz_av] 2754 [oz_av] [facility] ([facility]) Diastolic blood pressure 72 mm[Hg] 72 mm[Hg] [facility] ([facility]) Body height 68 [in_i] 68 [in_i] [facility] ([facility]) Body mass index (BMI) [Ratio] 26.2 kg/m2 26.2 k g/m2 [facility] ([facility]) Systolic blood pressure 124 mm[Hg] 124 mm[Hg] A [facility] ([facility]) Body weight 2754 [oz_av] 2754 [oz_av] [facility] ([facility]) Diastolic blood pressure 72 mm[Hg] 72 mm[Hg] [facility] ([facility]) Body height 68 [in_i] 68 [in_i] [facility] ([facility]) Body mass index (BMI) [Ratio] 26.2 kg/m2 26.2 k g/m2 [facility] ([facility]) Systolic blood pressure 124 mm[Hg] 124 mm[Hg] A THENA ([facility]) Body weight 2754 [oz_av] 2754 [oz_av] VANESSA ([facility]) Diastolic blood pressure 72 mm[Hg] 72 mm[Hg] VANESSA ([facility]) Body height 68 [in_i] 68 [in_i] VANESSA ([facility]) Body mass index (BMI) [Ratio] 26.2 kg/m2 26.2 k g/m2 VANESSA ([facility]) Systolic blood pressure 124 mm[Hg] 124 mm[Hg] A THENA ([facility]) Body weight 2754 [oz_av] 2754 [oz_av] VANESSA ([facility]) Diastolic blood pressure 72 mm[Hg] 72 mm[Hg] VANESSA ([facility]) Body height 68 [in_i] 68 [in_i] VANESSA ([facility]) Body mass index (BMI) [Ratio] 26.2 kg/m2 26.2 k g/m2 VANESSA ([facility]) Systolic blood pressure 124 mm[Hg] 124 mm[Hg] A THENA ([facility]) Body weight 2754 [oz_av] 2754 [oz_av] VANESSA ([facility]) Diastolic blood pressure 72 mm[Hg] 72 mm[Hg] VANESSA ([facility]) Body height 68 [in_i] 68 [in_i] VANESSA ([facility]) Body mass index (BMI) [Ratio] 26.2 kg/m2 26.2 k g/m2 VANESSA ([facility]) Systolic blood pressure 124 mm[Hg] 124 mm[Hg] A THENA ([facility]) Body weight 2754 [oz_av] 2754 [oz_av] VANESSA ([facility]) Diastolic blood pressure 72 mm[Hg] 72 mm[Hg] VANESSA ([facility]) Body height 68 [in_i] 68 [in_i] VANESSA ([facility]) Body mass index (BMI) [Ratio] 26.2 kg/m2 26.2 k g/m2 VANESSA ([facility]) Systolic blood pressure 124 mm[Hg] 124 mm[Hg] A THENA ([facility]) Body weight 2754 [oz_av] 2754 [oz_av] VANESSA ([facility]) Diastolic blood pressure 72 mm[Hg] 72 mm[Hg] VANESSA ([facility]) Body height 68 [in_i] 68 [in_i] VANESSA ([facility]) Body mass index (BMI) [Ratio] 26.2 kg/m2 26.2 k g/m2 VANESSA ([facility]) Systolic blood pressure 124 mm[Hg] 124 mm[Hg] A THENA ([facility]) Body weight 2754 [oz_av] 2754 [oz_av] VANESSA ([facility]) Diastolic blood pressure 72 mm[Hg] 72 mm[Hg] VANESSA ([facility]) Body height 68 [in_i] 68 [in_i] VANESSA ([facility]) Body mass index (BMI) [Ratio] 26.2 kg/m2 26.2 k g/m2 VANESSA ([facility]) Systolic blood pressure 124 mm[Hg] 124 mm[Hg] A THENA ([facility]) Body weight 2754 [oz_av] 2754 [oz_av] VANESSA ([facility]) Diastolic blood pressure 82 mm[Hg] 82 mm[Hg] VANESSA ([facility]) Body height 68 [in_i] 68 [in_i] VANESSA ([facility]) Body mass index (BMI) [Ratio] 25.8 kg/m2 25.8 k g/m2 VANESSA ([facility]) Systolic blood pressure 130 mm[Hg] 130 mm[Hg] A THENA ([facility]) Body weight 2710 [oz_av] 2710 [oz_av] VANESSA ([facility]) Diastolic blood pressure 82 mm[Hg] 82 mm[Hg] VANESSA ([facility]) Body height 68 [in_i] 68 [in_i] VANESSA ([facility]) Body mass index (BMI) [Ratio] 25.8 kg/m2 25.8 k g/m2 VANESSA ([facility]) Systolic blood pressure 130 mm[Hg] 130 mm[Hg] A THENA ([facility]) Body weight 2710 [oz_av] 2710 [oz_av] VANESSA ([facility]) Diastolic blood pressure 82 mm[Hg] 82 mm[Hg] VANESSA ([facility]) Body height 68 [in_i] 68 [in_i] VANESSA ([facility]) Body mass index (BMI) [Ratio] 25.8 kg/m2 25.8 k g/m2 VANESSA ([facility]) Systolic blood pressure 130 mm[Hg] 130 mm[Hg] A THENA ([facility]) Body weight 2710 [oz_av] 2710 [oz_av] VANESSA ([facility]) Diastolic blood pressure 82 mm[Hg] 82 mm[Hg] VANESSA ([facility]) Body height 68 [in_i] 68 [in_i] VANESSA ([facility]) Body mass index (BMI) [Ratio] 25.8 kg/m2 25.8 k g/m2 VANESSA ([facility]) Systolic blood pressure 130 mm[Hg] 130 mm[Hg] A THENA ([facility]) Body weight 2710 [oz_av] 2710 [oz_av] VANESSA ([facility]) Diastolic blood pressure 82 mm[Hg] 82 mm[Hg] VANESSA ([facility]) Body height 68 [in_i] 68 [in_i] VANESSA ([facility]) Body mass index (BMI) [Ratio] 25.8 kg/m2 25.8 k g/m2 VANESSA ([facility]) Systolic blood pressure 130 mm[Hg] 130 mm[Hg] A THENA ([facility]) Body weight 2710 [oz_av] 2710 [oz_av] VANESSA ([facility]) Diastolic blood pressure 82 mm[Hg] 82 mm[Hg] VANESSA ([facility]) Body height 68 [in_i] 68 [in_i] VANESSA ([facility]) Body mass index (BMI) [Ratio] 25.8 kg/m2 25.8 k g/m2 VANESSA ([facility]) Systolic blood pressure 130 mm[Hg] 130 mm[Hg] A THENA ([facility]) Body weight 2710 [oz_av] 2710 [oz_av] VANESSA ([facility]) Diastolic blood pressure 82 mm[Hg] 82 mm[Hg] VANESSA ([facility]) Body height 68 [in_i] 68 [in_i] VANESSA ([facility]) Body mass index (BMI) [Ratio] 25.8 kg/m2 25.8 k g/m2 VANESSA ([facility]) Systolic blood pressure 130 mm[Hg] 130 mm[Hg] A THENA ([facility]) Body weight 2710 [oz_av] 2710 [oz_av] VANESSA ([facility]) Diastolic blood pressure 82 mm[Hg] 82 mm[Hg] VANESSA ([facility]) Body height 68 [in_i] 68 [in_i] VANESSA ([facility]) Body mass index (BMI) [Ratio] 25.8 kg/m2 25.8 k g/m2 VANESSA ([facility]) Systolic blood pressure 130 mm[Hg] 130 mm[Hg] A THENA ([facility]) Body weight 2710 [oz_av] 2710 [oz_av] VANESSA ([facility]) Diastolic blood pressure 82 mm[Hg] 82 mm[Hg] VANESSA ([facility]) Body height 68 [in_i] 68 [in_i] VANESSA ([facility]) Body mass index (BMI) [Ratio] 25.8 kg/m2 25.8 k g/m2 VANESSA ([facility]) Systolic blood pressure 130 mm[Hg] 130 mm[Hg] A THENA ([facility]) Body weight 2710 [oz_av] 2710 [oz_av] VANESSA ([facility]) Diastolic blood pressure 82 mm[Hg] 82 mm[Hg] VANESSA ([facility]) Body height 68 [in_i] 68 [in_i] VANESSA ([facility]) Body mass index (BMI) [Ratio] 25.8 kg/m2 25.8 k g/m2 VANESSA ([facility]) Systolic blood pressure 130 mm[Hg] 130 mm[Hg] Reema IBARRA ([facility]) Body weight 2710 [oz_av] 2710 [oz_av] VANESSA ([facility]) Patient Treatment Plan of Care Planned Activity Planned Date Details Description Data Source (s) 0.5 ML dulaglutide 1.5 MG/ML Auto-Injector [Trulicity] VANESSA ([facility]) 1.5 ML Insulin Glargine 300 UNT/ML Pen Injector [Toujeo] VANESSA ([facility]) Suprep Bowel Prep Kit 17.5 gram-3.13 gram-1.6 gram ora l solution MX AND DRK UTD VANESSA ([facility]) Naproxen 500 MG Oral Tablet VANESSA ([facility]) sitagliptin 50 MG Oral Tablet [Januvia] [facility] ([facility]) [facility]agli[facility] 25 [facility] Insulin Lispro 100 UNT/ML Pen Injector [Humalog] VANESSA ([facility]) gabapentin 300 MG Oral Capsule VANESSA ([facility]) Cyclobenzaprine hydrochloride 5 MG Oral Tablet [facility] ([facility]) [facility]in [facility] atorvastatin 20 MG Oral Tablet [place] ([facility]) atorvastatin 10 MG Oral Tablet [place] ([facility]) Acyclovir 200 MG Oral Capsule VANESSA ([facility]) 0.5 ML dulaglutide 1.5 MG/ML Auto-Injector [Trulicity] VANESSA ([facility]) 1.5 ML Insulin Glargine 300 UNT/ML Pen Injector [Toujeo] VANESSA ([facility]) Suprep Bowel Prep Kit 17.5 gram-3.13 gram-1.6 gram ora l solution MX AND DRK UTD VANESSA ([facility]) Naproxen 500 MG Oral Tablet [facility] ([facility]) sitagliptin 25 MG [facility]t [facility] ML Insulin Lispro 100 UNT/ML Pen Injector [Humalog] VANESSA ([facility]) gabapentin 300 MG Oral Capsule VANESSA ([facility]) Cyclobenzaprine hydrochloride 5 MG Oral Tablet VANESSA ([facility]) atorvastatin 20 MG Oral Tablet [facility] ([facility]) 0.5 ML dulaglutide 1.5 MG/ML Auto-Injector [Trulicity] VANESSA ([facility]) 1.5 ML Insulin Glargine 300 UNT/ML Pen Injector [Toujeo] VANESSA ([facility]) Suprep Bowel Prep Kit 17.5 gram-3.13 gram-1.6 gram ora l solution MX AND DRK UTD V[facility]ESSA ([facility]) Naproxen 500 MG Oral Tablet [facility] ([facility]) sitagliptin 25 MG Oral Tablet [Januvia] VANESSA ([facility]) 3 ML Insulin Lispro 100 UNT/ML Pen Injector [Humalog] VANESSA ([facility]) gabapentin 300 MG Oral Capsule V[facility] ([facility]) Cyclobenzaprine hydrochloride 5 MG Oral Tablet [facility] ([facility]) atorvastatin 20 MG Oral Tablet [facility] ([facility]) 0.5 ML dulaglutide 1.5 MG/ML Auto-Injector [Trulicity] VANESSA ([facility]) 1.5 ML Insulin Glargine 300 UNT/ML Pen Injector [Toujeo] VANESSA ([facility]) Suprep Bowel Prep Kit 17.5 gram-3.13 gram-1.6 gram ora l solution MX AND DRK UTD [facility] ([facility]) Naproxen 500 MG Oral Tablet [facility] ([facility]) sitagliptin 25 MG Oral Tablet [Januvia] VANESSA ([facility]) 3 ML Insulin Lispro 100 UNT/ML Pen Injector [Humalog] VANESSA [facility]) gabapentin 300 MG Oral Capsule VANESSA ([facility]) Cyclobenzaprine hydrochloride 5 MG Oral Tablet VANESSA ([facility]) atorvastatin 20 MG Oral Tablet [facility] ([facility]) 0.5 ML dulaglutide 1.5 MG/ML Auto-Injector [Trulicity] VANESSA [facility]) 1.5 ML Insulin Glargine 300 UNT/ML Pen Injector [Toujeo] VANESSA ([facility]) Suprep Bowel Prep Kit 17.5 gram-3.13 gram-1.6 gram ora l solution MX AND DRK UTD VANESSA ([facility]) Naproxen 500 MG Oral Tablet V[facility]SA ([facility]) sitagliptin 25 MG Oral Tablet [Januvia] VANESSA ([facility]) 3 ML Insulin Lispro 100 UNT/ML Pen Injector [Humalog] VANESSA ([facility]) gabapentin 300 MG Oral Capsule VANESSA ([facility]) Cyclobenzaprine hydrochloride 5 MG Oral Tablet VANESSA ([facility]) atorvastatin 20 MG Oral Tablet V[facility] ([facility]) 0.5 ML dulaglutide 1.5 MG/ML Auto-Injector [Trulicity] VANESSA ([facility]) 1.5 ML Insulin Glargine 300 UNT/ML Pen Injector [Toujeo] VANESSA ([facility]) Suprep Bowel Prep Kit 17.5 gram-3.13 gram-1.6 gram ora l solution MX AND DRK UTD VANESSA ([facility]) Naproxen 500 MG Oral Tablet [facility] ([facility]) sitagliptin 25 MG Oral Tablet [Januvia] VANESSA ([facility]) 3 ML Insulin Lispro 100 UNT/ML Pen Injector [Humalog] VANESSA ([facility]) gabapentin 300 MG Oral Capsule VANESSA ([facility]) Cyclobenzaprine hydrochloride 5 MG Oral Tablet VANESSA ([facility]) atorvastatin 20 MG Oral Tablet [facility] ([facility]) 0.5 ML dulaglutide 1.5 MG/ML Auto-Injector [Trulicity] VANESSA ([facility]) 1.5 ML Insulin Glargine 300 UNT/ML Pen Injector [Toujeo] VANESSA ([facility]) Suprep Bowel Prep Kit 17.5 gram-3.13 gram-1.6 gram ora l solution MX AND DRK UTD VANESSA ([facility]) OneTouch Verio test strips U UTD TO TEST TID VANESSA ([facility]) Naproxen 500 MG Oral Tablet V[facility] ([facility]) sitagliptin 25 MG Oral Tablet [Januvia] VANESSA ([facility]) 3 ML Insulin Lispro 100 UNT/ML Pen Injector [Humalog] VANESSA ([facility]) gabapentin 300 MG Oral Capsule VANESSA ([facility]) Cyclobenzaprine hydrochloride 5 MG Oral Tablet [facility] ([facility]) atorvastatin 20 MG Oral Tablet [facility] ([facility]) 0.5 ML dulaglutide 1.5 MG/ML Auto-Injector [Trulicity] VANESSA ([facility]) 1.5 ML Insulin Glargine 300 UNT/ML Pen Injector [Toujeo] VANESSA ([facility]) Suprep Bowel Prep Kit 17.5 gram-3.13 gram-1.6 gram ora l solution MX AND DRK UTD V[facility]ESSA ([facility]) OneTouch Verio test strips U UTD TO TEST TID [facility] ([facility]) Naproxen 500 MG Oral Tablet [facility] ([facility]) sitagliptin 25 MG Oral Tablet [Januvia] VANESSA ([facility]) 3 ML Insulin Lispro 100 UNT/ML Pen Injector [Humalog] VANESSA ([facility]) gabapentin 300 MG Oral Capsule V[facility] ([facility]) Cyclobenzaprine hydrochloride 5 MG Oral Tablet [facility] ([facility]) atorvastatin 20 MG Oral Tablet [facility] ([facility]) 0.5 ML dulaglutide 1.5 MG/ML Auto-Injector [Trulicity] VANESSA ([facility]) 1.5 ML Insulin Glargine 300 UNT/ML Pen Injector [Toujeo] VANESSA ([facility]) Suprep Bowel Prep Kit 17.5 gram-3.13 gram-1.6 gram ora l solution MX AND DRK UTD [place] ([facility]) OneTouch Verio test strips U UTD TO TEST TID VANESSA ([facility]) Naproxen 500 MG Oral Tablet V[facility] ([facility]) sitagliptin 25 MG Oral Tablet [Januvia] VANESSA ([facility]) 3 ML Insulin Lispro 100 UNT/ML Pen Injector [Humalog] VANESSA ([facility]) gabapentin 300 MG Oral Capsule VANESSA ([facility]) Cyclobenzaprine hydrochloride 5 MG Oral Tablet V[facility] ([facility]) atorvastatin 20 MG Oral Tablet [facility] ([facility]) 0.5 ML dulaglutide 1.5 MG/ML Auto-Injector [Trulicity] VANESSA ([facility]) 1.5 ML Insulin Glargine 300 UNT/ML Pen Injector [Toujeo] [place] ([facility]) Suprep Bowel Prep Kit 17.5 gram-3.13 gram-1.6 gram ora l solution MX AND DRK UTD [place] ([facility]) OneTouch Verio test strips U UTD TO TEST TID [facility] ([facility]) Naproxen 500 MG Oral Tablet V[facility] ([facility]) 3 ML Insulin Lispro 100 UNT/ML Pen Injector [Humalog] VANESSA ([facility]) Cyclobenzaprine hydrochloride 5 MG Oral Tablet VANESSA ([facility]) atorvastatin 20 MG Oral Tablet VANESSA ([facility])
[2021-08-31 14:00] LABS: BASO % 0.2 % (0.0-1.0); EOS % 0.2 % (0.0-3.0); HEMATOCRIT 46.2 % (42.0-52.0); HEMOGLOBIN 16.5 g/dl (13.5-17.5); LYMPH # 0.8 10^3/uL (1.5-5.0); LYMPH % 7.7 % (24.0-44.0); MEAN CORPUSCULAR HEMOGLOBIN 31.3 pg (27.0-33.0); MEAN CORPUSCULAR HGB CONC 35.7 g/dl (32.0-36.5); MEAN CORPUSCULAR VOLUME 87.5 fl (80.0-96.0); MONO # 0.6 10^3/uL (0.0-0.8); MONO % 5.2 % (2.0-8.0); NEUTROPHILS # 9.2 10^3/uL (1.5-8.5); NEUTROPHILS % 85.9 % (36.0-66.0); PLATELET COUNT, AUTOMATED 184 10^3/uL (150-450); RED BLOOD COUNT 5.28 10^6/uL (4.30-6.10); WHITE BLOOD COUNT 10.6 10^3/uL (4.0-10.0)
--- NOTE | 2021-08-31 14:11 | REP ---
INDICATION: RLQ pain. COMPARISON: 01/14/2019 TECHNIQUE: Axial contrast-enhanced images from the lung bases to the pubic symphysis using 100 cc Isovue 370 intravenous contrast material. Coronal and sagittal reformations obtained. This CT examination was performed using the following dose reduction techniques: Automated exposure control, adjustment of mA and/or kv according to the patient's size, and the use of iterative reconstruction technique. FINDINGS: The bladder is markedly distended and there is evidence for symmetric significant bilateral hydroureteronephrosis. Findings are likely secondary to outlet obstruction with the enlarged heterogeneous prostate gland at the base of the bladder. The colon demonstrates mucosal thickening raising the possibility of colitis. Normal appearance to the small bowel and appendix identified. Liver, spleen, pancreas, bilateral adrenal glands are normal. Prior cholecystectomy noted. No ascites. No free air. No adenopathy. Abdominal aorta and vasculature appears normal. Musculoskeletal structures demonstrate age-related changes without acute osseous abnormality. Lung bases are clear. IMPRESSION: 1. Distended bladder with symmetric bilateral hydroureteronephrosis secondary to outlet obstruction with enlarged heterogeneous prostate gland. 2. Suspected mild/early pancolitis. <Electronically signed by Jonah Lopez > 08/31/21 [id number]
[2021-08-31 14:30] LABS: ALBUMIN 3.8 GM/DL (3.2-5.2); ALT/SGPT 24 U/L (12-78); BILIRUBIN,DIRECT 0.3 MG/DL (0.0-0.2); BILIRUBIN,TOTAL 1.5 MG/DL (0.2-1.0); CK-MB VALUE MASS 1.8 NG/ML (<3.6); CPK CREATINE PHOSPHOKINASE 55 U/L (39-308); LIPASE 77 U/L (73-393); MAGNESIUM LEVEL 1.9 MG/DL (1.8-2.4); MB/CK RELATIVE INDEX 3.27 (< OR =4); TOTAL PROTEIN 7.6 GM/DL (6.4-8.2); TROPONIN I < 0.02 NG/ML (< 0.10)
[2021-08-31] MEDS ORDERED: LIDOCAINE 2% 5ML JELLY UROJET TOP ONE (14:30)
[2021-08-31] MEDS ORDERED: ONDA4TAB6 PO (17:16)
[2021-08-31 17:34] VITALS: BP 124/67
--- NOTE | 2021-09-01 07:31 | ECGEPIP ---
[facility] - ED Test Date: 2021-08-31 Pat Name: MARILIN ROSENBERG Department: Room: - Gender: Male Rn Triage: WANDA : 1970 Requested By: RAFAELA DHALIWAL Order Number: [id number] Reading MD: Praveen Dickerson Measurements Intervals [place] Rate: 74 P: 70 VA: 176 QRS: 16 QRSD: 94 T: 43 QT: 392 QTc: 435 Interpretive Statements Sinus rhythm with sinus arrhythmia with occasional premature ventricular complexes Low voltage QRS SIMILAR TO 09/28/20 Electronically Signed on 09-01-2021 7:31:19 EDT by Praveen Dickerson
== END 2021-08-31 17:37 | disposition home or self-care (01) ==
LOC: EDBD 11:47 → M ED 11:47
DX: E11.65 Type 2 diabetes mellitus with hyperglycemia (principal); K52.9 Noninfective gastroenteritis and colitis, unspecified; R33.9 Retention of urine, unspecified; E78.5 Hyperlipidemia, unspecified; F31.9 Bipolar disorder, unspecified; F43.10 Post-traumatic stress disorder, unspecified; K21.9 Gastro-esophageal reflux disease without esophagitis; N40.0 Benign prostatic hyperplasia without lower urinary tract symptoms; Z79.899 Other long term (current) drug therapy; Z79.82 Long term (current) use of aspirin; Z79.84 Long term (current) use of oral hypoglycemic drugs
CPT/HCPCS: 51702; 74177; 80047; 80076; 81001; 82550; 82553; 83690; 83735; 84484; 85025; 93005; 93041; 96374; 96375; 99285; J2270; J2765; Q9967

== ENCOUNTER 2021-09-02 03:49 | Emergency (ER) | payer MEDICARE, MEDICAID ==
[~2021-09-02] VITALS: Ht 172.7 cm; Wt 72.7 kg
[~2021-09-02 03:49] MED LIST changes: +ONDA4TAB6 PO
--- OUTSIDE RECORDS SUMMARY | 2021-09-02 03:57 | CCD ---
Author Author [facility] Organization [facility] Address Unknown Phone Unavailable Care Team Providers Care Hat Conditioner Name Role Phone Kim Sandhu Unavailable Unavailable [...] Suraj Motta MD Unavailable Unavailable Sandra Chicas HALAL BUTCHER HALAL BUTCHER Unavailable Unavailable Carlos Harp MD Unavailable Unavailable [...] Unavailable MAJAK, R ЕКАТЕРИНА DPM Unavailable Unavailable Rahel STYLES MD Unavailable Unavailable [...] Unavailable PARNES, Z ESME MD Unavailable Unavailable OBBakari RAMIREZ MD Unavailable Unavailable OBBakari RAMIREZ MD Unavailable Unavailable OBBakari RAMIREZ MD Unavailable Unavailable OBBakari RAMIREZ MD Unavailable Unavailable OBBakari RAMIREZ MD Unavailable Unavailable OBBakari RAMIREZ MD Unavailable Unavailable OBBakari RAMIREZ MD Unavailable Unavailable OBBakari RAMIREZ MD Unavailable Unavailable OBBakari RAMIREZ MD Unavailable Unavailable OBBakari RAMIREZ MD Unavailable Unavailable OBBakari RAMIREZ ELISE MD Unavailable Unavailable OBBakari RAMIREZ MD Unavailable Unavailable OBBakari RAMIREZ MD Unavailable Unavailable OBBakari RAMIREZ MD Unavailable Unavailable OBBakari RAMIREZ MD Unavailable Unavailable OBBakari RAMIREZ MD Unavailable Unavailable OBBakari RAMIREZ MD Unavailable Unavailable OBBakari RAMIREZ MD Unavailable Unavailable OBBakari RAMIREZ MD Unavailable Unavailable OBBakari RAMIREZ MD Unavailable Unavailable OBBakari RAMIREZ ELISE MD Unavailable Unavailable OBEN, T ELISE [...] Unavailable OBEN, T ELISE MD Unavailable Unavailable Goutremout, Sallie Unavailable Aaliyah F Glory MORALES Unavailable Unavailable Alexnumpuramahendra F Glory MD Unavailable Unavailable Alexnumpuramahendra F Glory MD Unavailable Unavailable Alexnumpuramahendra F Glory MD Unavailable Unavailable Alexnumpuramahendra F Glory MD Unavailable Unavailable Alexnumpuramahendra F Glory MD Unavailable Unavailable Aaliyah F Glory MD Unavailable Unavailable Yareliumpuramahendra F Glory MD Unavailable Unavailable Alexnumpuramahendra F Glory MD Unavailable Unavailable Kunnumpurath, F Glory MD Unavailable Unavailable Kunnumpuramahendra, F Glory MD Unavailable Unavailable Alexnumpuramahendra, F Glory MD Unavailable Unavailable Alexnumpseth F Glory MD Unavailable Unavailable Kunnumpurath, F [...] Unavailable Kunnumpurath, F Glory MD Unavailable Unavailable Scordo, M Jana PA Unavailable [...] M Jana PA Unavailable Unavailable Scordo, M Jaan PA Unavailable Unavailable Scordo, M Jana PA [...] is protected by Article 27-F of the [facility] Public Health law. If you continue you may have access to information: Regarding HIV / AIDS; Provided by facilities licensed or operated by the [facility] Office of Mental Health; or Provided by the [facility] Office for People With Developmental Disabilities. If such information is present, then the following [facility] mandated warning applies: This information has [...] law may result in a fine or fpc sentence or both. A general authorization for the release of medical or other information is NOT sufficient authorization for further disc losure. Allergies and Adverse Reactions Type Description Substance Reaction Status Data Source(s ) No Known Drug Allergies No Known Drug Allergies [facility] No Known Food Allergies No Known Food Allergies [facility] Propensity to adverse reactions seasonal seasonal [facility] Family History Family Member Name Family Member Gender Family Member Status Date o f Status Description Data Source(s) Unknown Male Problem [facility] ([facility]) Encounters Encounter Providers Location Date Indications Data Source(s ) Jana Wylie PA-C: [address], [place] [address], Ph. Attender: Jana PERDOMO [facility] Medical 08/25/2021 12:00:00 AM EDT [facility]) Jana Wylie PA-C: [address], [place] [address], Ph. Attender: Jana PERDOMO [facility] Medical 07/05/2021 12:00:00 AM EDT [place] ([facility]) Jana Wylie PA-C: [address], [place] [address], Ph. Attender: Jana PERDOMO [facility] Medical 07/05/2021 12:00:00 AM EDT [place] ([facility]) Extended Individual Psychotherapy - 45 min Attender: Taylor Guajardo [facility] 06/28/2021 01:45:00 AM EDT - 06/28/2021 01:45:00 AM EDT [facility] ([facility]) Jana Wylie PA-C: [address], [place] [address], Ph. Attender: Jana PERDOMO [facility] Medical 06/28/2021 12:00:00 AM EDT [place] ([facility]) Jana Wylie PA-C: [address], [place] [address], Ph. Attender: Jana PERDOMO [facility] Medical 06/28/2021 12:00:00 AM EDT [place] ([facility]) Jana Wylie PA-C: [address], [place] [address], Ph. Attender: Jana PERDOMO [facility] Medical 06/28/2021 12:00:00 AM EDT [place] ([facility]) Attender: Sallie Guajardo 06/28/2021 12:00:0 0 AM EDT [facility] ([facility]) Outpatient [id number] 06/14/2021 11:48:03 AM EDT [facility] Telemed Diagnostic Eval Attender: Souleymane Harp MD [facility] santana Dusty 06/07/2021 08:30:00 AM EDT - 06/07/2021 08:30:00 AM EDT [facility] ([facility]) Attender: Souleymane Harp MD 06/07/2021 12:00:00 AM EDT [facility] ([facility]) Outpatient Attender: Eligio Sandhu MD Main office - [place] 05/10/2021 01:15:00 PM EDT [facility] ([facility]) Gonzalo Motta MD: [address] [place] [address], Ph. Attender: Gonzalo Motta MD [facility] Medical 04/25/2021 12:00:00 AM EDT [place] ([facility]) Gonzalo Motta MD: [address] [place] [address], Ph. Attender: Gonzalo Motta MD [facility] Medical 04/25/2021 12:00:00 AM EDT [place] ([facility]) Gonzalo Motta MD: [address] [place] [address], Ph. Attender: Gonzalo Motta MD [facility] Medical 04/25/2021 12:00:00 AM EDT [place] ([facility]) Gonzalo Motta MD: [address] [place] [address], Ph. Attender: Gonzalo Motta MD [facility] Medical 04/25/2021 12:00:00 AM EDT [place] ([facility]) Outpatient Attender: Eligio Sandhu MD Main office - [place] 04/07/2021 03:15:00 PM EDT [facility] ([facility]) Outpatient Attender: ESME STYLES MDConsultant: Glory ann MD 04/06/2021 03:08:00 PM EDT - 04/06/2021 03:08:00 PM EDT [facility] Jana Wylie PA-C: [address] [place] [address], Ph. Attender: Jana PERDOMO [facility] Medical 03/21/2021 12:00:00 AM EDT [place] ([facility]) Jana Wylie PA-C: [address], [place] [address], Ph. Attender: Jana PERDOMO [facility] Medical 03/21/2021 12:00:00 AM EDT [place] ([facility]) Jana Wylie PA-C: [address], [place] [address], Ph. Attender: Jana PERDOMO [facility] Medical 03/21/2021 12:00:00 AM EDT [place] ([facility]) Jana Wylie PA-C: [address], [place] [address], Ph. Attender: Jana PERDOMO [facility] Medical 03/21/2021 12:00:00 AM EDT [place] ([facility]) Jana Wylie PA-C: [address], [place] [address], Ph. Attender: Jana PERDOMO [facility] Medical 03/21/2021 12:00:00 AM EDT [place] ([facility]) Outpatient Attender: ЕКАТЕРИНА WILSON [facility] Office 02/18 08:15:00 AM EDT [facility] ([facility] Outpatient Attender: ESME Caceres nder: ELISE YAN MDConsultant: Glory Fischer MD 03/11/2021 02:01:00 PM EDT - 03/11/2021 02:01:00 PM EDT [facility] Jana Wylie PA-C: [address], [place] [address], Ph. Attender: Jana PERDOMO [facility] Medical 03/10/2021 12:00:00 AM EDT [place] ([facility]) Jana Wylie PA-C: [address], [place] [address], Ph. Attender: Jana PERDOMO [facility] Medical 03/10/2021 12:00:00 AM EDT [place] ([facility]) Jana Wylie PA-C: [address], [place] [address], Ph. Attender: Jana PERDOMO [facility] Medical 03/10/2021 12:00:00 AM EDT [place] ([facility]) Jana Wylie PA-C: [address], [place] [address], Ph. Attender: Jana PERDOMO [facility] Medical 03/10/2021 12:00:00 AM EDT [place] ([facility]) Jana Wylie PA-C: [address], [place] [address], Ph. Attender: Jana PERDOMO [facility] Medical 03/10/2021 12:00:00 AM EDT [place] ([facility]) Jana Wylie PA-C: [address], [place] [address], Ph. Attender: Jana PERDOMO [facility] Medical 03/10/2021 12:00:00 AM EDT [place] ([facility]) Jana Wylie PA-C: [address], [place] [address], Ph. Attender: Jana PERDOMO [facility] Medical 03/09/2021 12:00:00 AM EDT [place] ([facility]) Jana Wylie PA-C: [address], [place] [address], Ph. Attender: Jana PERDOMO [facility] Medical 03/09/2021 12:00:00 AM EDT [place] ([facility]) Jana Wylie PA-C: [address], [place] [address], Ph. Attender: Jana PERDOMO [facility] Medical 03/09/2021 12:00:00 AM EDT [place] ([facility]) Jana Wylie PA-C: [address], [place] [address], Ph. Attender: Jana PERDOMO [facility] Medical 03/09/2021 12:00:00 AM EDT [place] ([facility]) Jana Wylie PA-C: [address], [place] [address], Ph. Attender: Jana PERDOMO [facility] Medical 03/09/2021 12:00:00 AM EDT [place] ([facility]) Jana Wylie PA-C: [address], [place] [address], Ph. Attender: Jana PERDOMO [facility] Medical 03/09/2021 12:00:00 AM EDT [place] ([facility]) Jana Wylie PA-C: [address], [place] [address], Ph. Attender: Jana PERDOMO [facility] Medical 03/09/2021 12:00:00 AM EDT [place] ([facility]) Gonzalo Motta MD: [address] [place] [address], Ph. Attender: Gonzalo Motta MD [facility] Medical 02/21/2021 12:00:00 AM EDT [place] ([facility]) Gonzalo Motta MD: [address] [place] [address], Ph. Attender: Gonzalo Motta MD [facility] Medical 02/21/2021 12:00:00 AM EDT [place] ([facility]) Gonzalo Motta MD: [address] [place] [address], Ph. Attender: Gonzalo Motta MD [facility] Medical 02/21/2021 12:00:00 AM EDT [place] ([facility]) Gonzalo Motta MD: [address] [place] [address], Ph. Attender: Gonzalo Motta MD [facility] Medical 02/21/2021 12:00:00 AM EDT [place] ([facility]) Gonzalo Motta MD: [address] [place] [address], Ph. Attender: Gonzalo Motta MD [facility] Medical 02/21/2021 12:00:00 AM EDT [place] ([facility]) Gonzalo Motta MD: [address] [place] [address], Ph. Attender: Gonzalo Motta MD [facility] Medical 02/21/2021 12:00:00 AM EDT [place] ([facility]) Gonzalo Motta MD: [address] [place] [address], Ph. Attender: Gonzalo Motta MD [facility] Medical 02/21/2021 12:00:00 AM EDT [place] ([facility]) Gonzalo Motta MD: [address], [place] [address], Ph. Attender: Gonzalo Motta MD [facility] Medical 02/21/2021 12:00:00 AM EDT [place] ([facility]) Jana Wylie PA-C: [address], [place] [address], Ph. Attender: Jana PERDOMO [facility] Medical 02/15/2021 12:00:00 AM EDT [place] ([facility]) Jana Wylie PA-C: [address], [place] [address], Ph. Attender: Jana PERDOMO [facility] Medical 02/15/2021 12:00:00 AM EDT [place] ([facility]) Jana Wylie PA-C: [address], [place] [address], Ph. Attender: Jana PERDOMO [facility] Medical 02/15/2021 12:00:00 AM EDT [place] ([facility]) Jana Wylie PA-C: [address], [place] [address], Ph. Attender: Jana PERDOMO [facility] Medical 02/15/2021 12:00:00 AM EDT [place] ([facility]) Jana Wylie PA-C: [address], [place] [address], Ph. Att[facility]: [facility] 02/15/2021 12:00:00 AM EDT [place] ([facility]) Jana Wylie PA-C: [address], [place] [address], Ph. Attender: Jana PERDOMO [facility] Medical 02/15/2021 12:00:00 AM EDT [place] ([facility]) Jana Wylie PA-C: [address], [place] [address], Ph. Attender: Jana PERDOMO [facility] Medical 02/15/2021 12:00:00 AM EDT [place] ([facility]) Jana Wylie PA-C: [address], [place] [address], Ph. Attender: Jana PERDOMO [facility] Medical 02/15/2021 12:00:00 AM EDT [place] ([facility]) Jana Wylie PA-C: [address], [place] [address], Ph. Attender: Jana PERDOMO [facility] Medical 02/15/2021 12:00:00 AM EDT [place] ([facility]) Outpatient Attender: MADHURI HELLER 09/30/2020 08:32:01 A M [facility] Jana Wylie PA-C: [address], [place] [address], Ph. Attender: Jana PERDOMO [facility] Medical 09/30/2020 12:00:00 AM EST [facility]) Jana Wylie PA-C: [address], [place] [address], Ph. Attender: Jana PERDOMO [facility] Medical 09/30/2020 12:00:00 AM EST [place] ([facility]) Jana Wylie PA-C: [address], [place] [address], Ph. Attender: Jana PERDOMO [facility] Medical 09/30/2020 12:00:00 AM EST [place] ([facility]) Jana Wylie PA-C: [address], [place] [address], Ph. Attender: Jana PERDOMO [facility] Medical 09/30/2020 12:00:00 AM EST [place] ([facility]) Jana Wylie PA-C: [address], [place] [address], Ph. Attender: Jana PERDOMO [facility] Medical 09/30/2020 12:00:00 AM EST [place] ([facility]) Jana Wylie PA-C: [address], [place] [address], Ph. Attender: Jana PERDOMO [facility] 09/30/2020 12:00:00 AM EST [place] ([facility]) Jana Wylie PA-C: [address], [place] [address], Ph. Attender: Jana PERDOMO [facility] Medical 09/30/2020 12:00:00 AM EST [place] ([facility]) Jana Wylie PA-C: [address], [place] [address], Ph. Attender: Jana PERDOMO [facility] Medical 09/30/2020 12:00:00 AM EST [place] ([facility]) J[facility]yl[facility]-C: [address] [facility] [place] [address], Ph. Attender: Jana PERDOMO [facility] 09/30/2020 12:00:00 AM EST [place] ([facility]) Jana Wylie PA-C: [address] [place] [address], Ph. Attender: Jana PERDOMO [facility] 09/30/2020 12:00:00 AM EST [place] ([facility]) Outpatient Attender: ESME STYLES MDConsultant: Glory ann MD 10/15/2018 01:14:32 PM [facility] 10/15/2018 01:13:00 PM [facility] Functional Status Medications Medication Brand Name Start Date Product Form Dose Route Admi nistrative Instructions Pharmacy Instructions Status Indications Reaction Description Data Source(s) 24 HR paliperidone 1.5 MG Extended Release Oral Tablet [Inve ga] Invega 06/07/2021 12:00:00 AM EDT 1.5 mg by mouth completed <td ID="MedicationRxNorm_3">005893</td><td ID="MedicationMedication_3">Invega</td><td ID="MedicationRoute_3">by mouth</td><td ID="MedicationRouteConcept_3">C25990</td><td ID="MedicationStartDate_3">06/07/2021</td><td ID="MedicationStopDate_3">07/07/2021</td><td ID="MedicationDosageFrequency_3">at bedtime</td><td ID="MedicationDuration_3">30</td><td ID="MedicationFormulaStrength_3">1.5 mg</td><td ID="MedicationDosageForm_3">tablet extended release 24hr</td><td ID="MedicationDosageFormCode_3"></td><td ID="MedicationDosageDescription_3"></td><td ID="MedicationMedicationId_3">[id number]</td><td ID="MedicationAccount_3">[id number]</td><td ID="MedicationNpid_3">[id number]</td><td ID="MedicationAuthorFirstName_3">Souleymane</td><td ID="MedicationAuthorLastName_3">Harp</td><td ID="MedicationTaxonomyCode_3">[id number]</td><td ID="MedicationTaxonomyDesc_3"> Psychiatry</td><td ID="MedicationPhoneNumber_3">[phone]</td> [facility] ([facility]) 24 HR paliperidone 1.5 MG Extended Release Oral Tablet [Inve ga] Invega 06/07/2021 12:00:00 AM EDT 1.5 mg by mouth completed <td ID="MedicationRxNorm_1">835411</td><td ID="MedicationMedication_1">Invega</td><td ID="MedicationRoute_1">by mouth</td><td ID="MedicationRouteConcept_1">S82076</td><td ID="MedicationStartDate_1">06/07/2021</td><td ID="MedicationStopDate_1">07/07/2021</td><td ID="MedicationDosageFrequency_1">at bedtime</td><td ID="MedicationDuration_1">30</td><td ID="MedicationFormulaStrength_1">1.5 mg</td><td ID="MedicationDosageForm_1">tablet extended release 24hr</td><td ID="MedicationDosageFormCode_1"></td><td ID="MedicationDosageDescription_1"></td><td ID="MedicationMedicationId_1">[id number]</td><td ID="MedicationAccount_1">[id number]</td><td ID="MedicationNpid_1">[id number]</td><td ID="MedicationAuthorFirstName_1">Souleymane</td><td ID="MedicationAuthorLastName_1">Harp</td><td ID="MedicationTaxonomyCode_1">[id number]</td><td ID="MedicationTaxonomyDesc_1"> Psychiatry</td><td ID="MedicationPhoneNumber_1">[phone]</td> [facility] ([facility]) Fluoxetine 10 MG Oral Capsule [Prozac] Prozac 07/02/2018 12:0 0:00 AM EDT 10 mg completed <td ID="Me dicationRxNorm_2">388240</td><td ID="MedicationMedication_2">Prozac</td><td ID="MedicationRoute_2"></td><td ID="MedicationRouteConcept_2"></td><td ID="MedicationStartDate_2">07/02/2018</td><td ID="MedicationStopDate_2">06/07/2021</td><td ID="MedicationDosageFrequency_2">every morning</td><td ID="MedicationDuration_2"></td><td ID="MedicationFormulaStrength_2">10 mg</td><td ID="MedicationDosageForm_2">capsule</td><td ID="MedicationDosageFormCode_2"></td><td ID="MedicationDosageDescription_2">as directed</td><td ID="MedicationMedicationId_2">[id number]</td><td ID="MedicationAccount_2">[id number]</td><td ID="MedicationNpid_2">[id number]</td><td ID="MedicationAuthorFirstName_2">Elsa</td><td ID="MedicationAuthorLastName_2">MacQueen</td><td ID="MedicationTaxonomyCode_2">[id number]</td><td ID="MedicationTaxonomyDesc_2">Psychiatric/Mental Health</td><td ID="MedicationPhoneNumber_2">[phone]</td> [facility]) Lurasidone Hydrochloride 80 MG Oral Tablet [Latuda] Latuda 07/19/2017 12:00:00 AM EDT 80 mg completed <td ID ="MedicationRxNorm_1">[id number]</td><td ID="MedicationMedication_1">Latuda</td><td ID="MedicationRoute_1"></td><td ID="MedicationRouteConcept_1"></td><td ID="MedicationStartDate_1">07/19/2017</td><td ID="MedicationStopDate_1">06/07/2021</td><td ID="MedicationDosageFrequency_1">once a day</td><td ID="MedicationDuration_1"></td><td ID="MedicationFormulaStrength_1">80 mg</td><td ID="MedicationDosageForm_1">tablet</td><td ID="MedicationDosageFormCode_1"></td><td ID="MedicationDosageDescription_1"></td><td ID="MedicationMedicationId_1">[id number]</td><td ID="MedicationAccount_1">[id number]</td><td ID="MedicationNpid_1">[id number]</td><td ID="MedicationAuthorFirstName_1">Elsa</td><td ID="MedicationAuthorLastName_1">Treveren</td><td ID="MedicationTaxonomyCode_1">[id number]</td><td ID="MedicationTaxonomyDesc_1">Psychiatric/Mental Health</td><td ID="MedicationPhoneNumber_1">[phone]</td> [facility] ([facility]) 0.5 ML dulaglutide 1.5 MG/ML Auto-Inject or [Trulicity] Trulicity 0.75 mg/0.5 mL subcutaneous pen injector Trulicity 0.75 mg/0.5 mL subcutaneous pen injector completed 0.5 ML dulaglu tide 1.5 MG/ML Auto-Injector [facility] 0.5 ML dulaglutide 1.5 MG/ML Auto-Inject or [Trulicity] Trulicity 0.75 mg/0.5 mL subcutaneous pen injector Trulicity 0.75 mg/0.5 mL subcutaneous pen injector completed 0.5 ML dulaglu tide 1.5 MG/ML Auto-Injector [Trulicity] [place] ([facility]) OneTouch Verio test strips U UTD TO TEST TID 196220 completed OneTouch Verio test strips [place] [facility] sitagliptin 25 MG Oral Tablet [Januvia] Januvia 25 mg tablet Januvia 25 mg tablet completed sitagliptin 25 MG Oral Tablet [Januvia] [place] ([facility]) Naproxen 500 MG Oral Tablet naproxen 500 mg tablet TK 1 T PO BID P naproxen 500 mg tablet TK 1 T PO BID P completed naproxen 500 MG Oral Tablet [place] ([facility]) sitagliptin 25 MG Oral Tablet [Januvia] Januvia 25 mg tablet Januvia 25 mg tablet completed sitagliptin 25 MG Oral Tablet [Januvia] [place] ([facility]) atorvastatin 20 MG Oral Tablet atorvastatin 20 mg tabl et TK 1 T PO QD atorvastatin 20 mg tablet TK 1 T PO QD completed atorvastatin 20 MG Oral Tablet [place] ([facility]) atorvastatin 20 MG Oral Tablet atorvastatin 20 mg tabl et TK 1 T PO QD atorvastatin 20 mg tablet TK 1 T PO QD completed atorvastatin 20 MG Oral Tablet [place] ([facility]) 0.5 ML dulaglutide 1.5 MG/ML Auto-Inject or [Trulicity] Trulicity 0.75 mg/0.5 mL subcutaneous pen injector Trulicity 0.75 mg/0.5 mL subcutaneous pen injector completed 0.5 ML dulaglu tide 1.5 MG/ML Auto-Injector [Trulicity] [place] ([facility]) 3 ML Insulin Lispro 100 UNT/ML Pen Injec tor [Humalog] Humalog KwikPen (U-100) Insulin 100 unit/mL subcutaneous Humalog KwikPen (U-100) Insulin 100 unit /mL subcutaneous completed 3 ML insulin lispro 100 UNT/ML Pen Injector [Humalog] [place] ([facility]) Naproxen 500 MG Oral Tablet naproxen 500 mg tablet TK 1 T PO BID P naproxen 500 mg tablet TK 1 T PO BID P completed naproxen 500 MG Oral Tablet [place] ([facility]) Suprep Bowel Prep Kit 17.5 gram-3.13 gram-1.6 gram ora l solution MX AND ANDREA UTD [id number] completed Suprep Bowel Prep Kit 17.5 gram-3.13 gram-1.6 gram oral solution [facility] ([facility]) atorvastatin 20 MG Oral Tablet atorvastatin 20 mg tabl et TK 1 T PO QD atorvastatin 20 mg tablet TK 1 T PO QD completed atorvastatin 20 MG Oral Tablet [facility] ([facility]) Cyclobenzaprine hydrochloride 5 MG Oral Tablet cyclobenzaprine 5 mg tablet TAKE ONE TABLET BY MOUTH THREE TIMES DAILY NEEDED FOR MUSCLE SPASMS cyclobenzaprine 5 mg tablet TAKE ONE TABLET BY MOUTH THREE TIMES DAILY NEEDED FOR MUSCLE SPASMS completed cyclobenzaprine hydrochloride 5 MG Oral Tablet [facility] ([facility]) 0.5 ML dulaglutide 1.5 MG/ML Auto-Inject or [Trulicity] Trulicity 0.75 mg/0.5 mL subcutaneous pen injector Trulicity 0.75 mg/0.5 mL subcutaneous pen injector completed 0.5 ML dulaglu tide 1.5 MG/ML Auto-Injector [Trulicity] [place] ([facility]) 1.5 ML Insulin Glargine 300 [...] insulin glargine 300 UNT/ML Pen Injector [Toujeo] [place] ([facility]) gabapentin 300 MG Oral Capsule gabapenti n 300 mg capsule TAKE 1 CAPSULE BY MOUTH THREE TIMES DAILY gabapentin 300 mg capsule TAKE 1 CAPSULE BY MOUTH THREE TIMES DAILY completed gabapentin 300 MG Oral Capsule [facility]) 0.5 ML dulaglutide 1.5 MG/ML Auto-Inject or [Trulicity] Trulicity 0.75 mg/0.5 mL subcutaneous pen injector Trulicity 0.75 mg/0.5 mL subcutaneous pen injector completed 0.5 ML dulaglu tide 1.5 MG/ML Auto-Injector [Trulicity] [facility]) 3 ML Insulin Lispro 100 UNT/ML Pen Injec tor [Humalog] Humalog KwikPen (U-100) Insulin 100 unit/mL subcutaneous Humalog KwikPen (U-100) Insulin 100 unit /mL subcutaneous completed 3 ML insulin lispro 100 UNT/ML Pen Injector [Humalog] [place] ([facility]) 1.5 ML Insulin Glargine 300 [...] glargine 300 UNT/ML Pen Injector [Toujeo] [place] ([facility]) 1.5 ML Insulin Glargine 300 [...] glargine 300 UNT/ML Pen Injector [Toujeo] [place] ([facility]) 1.5 ML Insulin Glargine 300 [...] glargine 300 UNT/ML Pen Injector [Toujeo] [place] ([facility]) OneTouch Verio test strips U UTD TO TEST TID [id number] completed OneTouch Verio test strips [place] ([facility]) 1.5 ML Insulin Glargine 300 [...] glargine 300 UNT/ML Pen Injector [Toujeo] [place] ([facility]) sitagliptin 25 MG Oral Tablet [Januvia] Januvia 25 mg tablet Januvia 25 mg tablet completed sitagliptin 25 MG Oral Tablet [Januvia] [place] ([facility]) Cyclobenzaprine hydrochloride 5 MG Oral Tablet cyclobenzaprine 5 mg tablet TAKE ONE TABLET BY MOUTH THREE TIMES DAILY NEEDED FOR MUSCLE SPASMS cyclobenzaprine 5 mg tablet TAKE ONE TABLET BY MOUTH THREE TIMES DAILY NEEDED FOR MUSCLE SPASMS completed cyclobenzaprine hydrochloride 5 MG Oral Tablet [place] ([facility]) Naproxen 500 MG Oral Tablet naproxen 500 mg tablet TK 1 T PO BID P naproxen 500 mg tablet TK 1 T PO BID P completed naproxen 500 MG Oral Tablet [place] ([facility]) 3 ML Insulin Lispro 100 UNT/ML Pen Injec tor [Humalog] Humalog KwikPen (U-100) Insulin 100 unit/mL subcutaneous Humalog KwikPen (U-100) Insulin 100 unit /mL subcutaneous completed 3 ML insulin lispro 100 UNT/ML Pen Injector [Humalog] [place] ([facility]) Naproxen 500 MG Oral Tablet naproxen 500 mg tablet TK 1 T PO BID P naproxen 500 mg tablet TK 1 T PO BID P completed naproxen 500 MG Oral Tablet [place] ([facility]) Suprep Bowel Prep Kit 17.5 gram-3.13 gram-1.6 gram ora l solution MX AND DRK UTD [id number] completed Suprep Bowel Prep Kit 17.5 gram-3.13 gram-1.6 gram oral solution [place] ([facility]) atorvastatin 20 MG Oral Tablet atorvastatin 20 mg tabl et TK 1 T PO QD atorvastatin 20 mg tablet TK 1 T PO QD completed atorvastatin 20 MG Oral Tablet [place] ([facility]) Acyclovir 200 MG Oral Capsule acyclovir 200 mg capsule acycl ovir 200 mg capsule completed acyclovir 200 MG Oral Capsule [place] ([facility]) sitagliptin 25 MG Oral Tablet [Januvia] Januvia 25 mg tablet Januvia 25 mg tablet completed sitagliptin 25 MG Oral Tablet [Januvia] [place] ([facility]) sitagliptin 25 MG Oral Tablet [Januvia] Januvia 25 mg tablet Januvia 25 mg tablet completed sitagliptin 25 MG Oral Tablet [Januvia] [place] ([facility]) gabapentin 300 MG Oral Capsule gabapenti n 300 mg capsule TAKE 1 CAPSULE BY MOUTH THREE TIMES DAILY gabapentin 300 mg capsule TAKE 1 CAPSULE BY MOUTH THREE TIMES DAILY completed gabapentin 300 MG Oral Capsule [place] ([facility]) 1.5 ML Insulin Glargine 300 [...] insulin glargine 300 UNT/ML Pen Injector [Toujeo] [place] ([facility]) 0.5 ML dulaglutide 1.5 MG/ML Auto-Inject or [Trulicity] Trulicity 0.75 mg/0.5 mL subcutaneous pen injector Trulicity 0.75 mg/0.5 mL subcutaneous pen injector completed 0.5 ML dulaglu tide 1.5 MG/ML Auto-Injector [Trulicity] [place] ([facility]) gabapentin 300 MG Oral Capsule gabapenti n 300 mg capsule TAKE 1 CAPSULE BY MOUTH THREE TIMES DAILY gabapentin 300 mg capsule TAKE 1 CAPSULE BY MOUTH THREE TIMES DAILY completed gabapentin 300 MG Oral Capsule [place] ([facility]) sitagliptin 25 MG Oral Tablet [Januvia] Januvia 25 mg tablet Januvia 25 mg tablet completed sitagliptin 25 MG Oral Tablet [Januvia] [place] ([facility]) gabapentin 300 MG Oral Capsule gabapenti n 300 mg capsule TAKE 1 CAPSULE BY MOUTH THREE TIMES DAILY gabapentin 300 mg capsule TAKE 1 CAPSULE BY MOUTH THREE TIMES DAILY completed gabapentin 300 MG Oral Capsule [place] ([facility]) Cephalexin 500 MG Oral Capsule cephalexin 500 mg capsu le cephalexin 500 mg capsule completed cephalexin 500 MG Oral Capsule [place] ([facility]) Suprep Bowel Prep Kit 17.5 gram-3.13 gram-1.6 gram ora l solution AND ANDREA UTD [id number] completed Suprep Bowel Prep Kit 17.5 gram-3.13 gram-1.6 gram oral solution [place] ([facility]) 0.5 ML dulaglutide 1.5 MG/ML Auto-Inject or [Trulicity] Trulicity 0.75 mg/0.5 mL subcutaneous pen injector Trulicity 0.75 mg/0.5 mL subcutaneous pen injector completed 0.5 ML dulaglu tide 1.5 MG/ML Auto-Injector [Trulicity] [place] ([facility]) 3 ML Insulin Lispro 100 UNT/ML Pen Injec tor [Humalog] Humalog KwikPen (U-100) Insulin 100 unit/mL subcutaneous Humalog KwikPen (U-100) Insulin 100 unit /mL subcutaneous completed 3 ML insulin lispro 100 UNT/ML Pen Injector [Humalog] [place] ([facility]) 1.5 ML Insulin Glargine 300 [...] insulin glargine 300 UNT/ML Pen Injector [Toujeo] [place] ([facility]) atorvastatin 20 MG Oral Tablet atorvastatin 20 mg tabl et TK 1 T PO QD atorvastatin 20 mg tablet TK 1 T PO QD completed atorvastatin 20 MG Oral Tablet [place] ([facility]) Cyclobenzaprine hydrochloride 5 MG Oral Tablet cyclobenzaprine 5 mg tablet TAKE ONE TABLET BY MOUTH THREE TIMES DAILY NEEDED FOR MUSCLE SPASMS cyclobenzaprine 5 mg tablet TAKE ONE TABLET BY MOUTH THREE TIMES DAILY NEEDED FOR MUSCLE SPASMS completed cyclobenzaprine hydrochloride 5 MG Oral Tablet [place] ([facility]) Suprep Bowel Prep Kit 17.5 gram-3.13 gram-1.6 gram ora l solution MX AND DRK UTD [id number] completed Suprep Bowel Prep Kit 17.5 gram-3.13 gram-1.6 gram oral solution [place] ([facility]) sitagliptin 25 MG Oral Tablet [Januvia] Januvia 25 mg tablet Januvia 25 mg tablet completed sitagliptin 25 MG Oral Tablet [Januvia] [place] ([facility]) Naproxen 500 MG Oral Tablet naproxen 500 mg tablet TK 1 T PO BID P naproxen 500 mg tablet TK 1 T PO BID P completed naproxen 500 MG Oral Tablet [place] ([facility]) gabapentin 300 MG Oral Capsule gabapenti n 300 mg capsule TAKE 1 CAPSULE BY MOUTH THREE TIMES DAILY gabapentin 300 mg capsule TAKE 1 CAPSULE BY MOUTH THREE TIMES DAILY completed gabapentin 300 MG Oral Capsule [place] ([facility]) atorvastatin 10 MG Oral Tablet atorvastatin 10 mg tabl et atorvastatin 10 mg tablet completed atorvastatin 10 MG Oral Tablet [place] ([facility]) Naproxen 500 MG Oral Tablet naproxen 500 mg tablet TK 1 T PO BID P naproxen 500 mg tablet TK 1 T PO BID P completed naproxen 500 MG Oral Tablet [place] ([facility]) Suprep Bowel Prep Kit 17.5 gram-3.13 gram-1.6 gram ora l solution MX AND DRK UTD [id number] completed Suprep Bowel Prep Kit 17.5 gram-3.13 gram-1.6 gram oral solution [place] ([facility]) Suprep Bowel Prep Kit 17.5 gram-3.13 gram-1.6 gram ora l solution MX AND DRK UTD [id number] completed Suprep Bowel Prep Kit 17.5 gram-3.13 gram-1.6 gram oral solution [place] ([facility]) OneTouch Verio test strips U UTD TO TEST TID [id number] completed OneTouch Verio test strips [place] ([facility]) 0.5 ML dulaglutide 1.5 MG/ML Auto-Inject or [Trulicity] Trulicity 0.75 mg/0.5 mL subcutaneous pen injector Trulicity 0.75 mg/0.5 mL subcutaneous pen injector completed 0.5 ML dulaglu tide 1.5 MG/ML Auto-Injector [Trulicity] [place] ([facility]) Suprep Bowel Prep Kit 17.5 gram-3.13 gram-1.6 gram ora l solution MX AND DRK UTD [id number] completed Suprep Bowel Prep Kit 17.5 gram-3.13 gram-1.6 gram oral solution [place] ([facility]) atorvastatin 20 MG Oral Tablet atorvastatin 20 mg tabl et TK 1 T PO QD atorvastatin 20 mg tablet TK 1 T PO QD completed atorvastatin 20 MG Oral Tablet [place] ([facility]) 1.5 ML Insulin Glargine 300 UNT/ML Pen I njector [Toujeo] Tounidia SoloStar U-300 Insulin 300 unit/mL (1.5 mL) subcutaneous pen INJECT 35 UNITS UNDER THE SKIN IN THE MORNING AND 45 UNITS IN THE EVENING Toumalinao SoloStar U-300 Insulin 300 unit/mL (1.5 mL) subcutaneous pen INJECT 35 UNITS UNDER THE SKIN IN THE MORNING AND 45 UNITS IN THE EVENING completed 1.5 ML insulin glargine 300 UNT/ML Pen Injector [Toujeo] [place] ([facility]) sitagliptin 25 MG Oral Tablet [Januvia] Januvia 25 mg tablet Januvia 25 mg tablet completed sitagliptin 25 MG Oral Tablet [Januvia] [place] ([facility]) gabapentin 300 MG Oral Capsule gabapenti n 300 mg capsule TAKE 1 CAPSULE BY MOUTH THREE TIMES DAILY gabapentin 300 mg capsule TAKE 1 CAPSULE BY MOUTH THREE TIMES DAILY completed gabapentin 300 MG Oral Capsule [place] ([facility]) Naproxen 500 MG Oral Tablet naproxen 500 mg tablet TK 1 T PO BID P naproxen 500 mg tablet TK 1 T PO BID P completed naproxen 500 MG Oral Tablet [place] ([facility]) Naproxen 500 MG Oral Tablet naproxen 500 mg tablet TK 1 T PO BID P naproxen 500 mg tablet TK 1 T PO BID P completed naproxen 500 MG Oral Tablet [place] ([facility]) sitagliptin 50 MG Oral Tablet [Januvia] Januvia 50 mg tablet Januvia 50 mg tablet completed sitagliptin 50 MG Oral Tablet [Januvia] [place] ([facility]) sitagliptin 25 MG Oral Tablet [Januvia] Januvia 25 mg tablet Januvia 25 mg tablet completed sitagliptin 25 MG Oral Tablet [Januvia] [place] ([facility]) Cyclobenzaprine hydrochloride 5 MG Oral Tablet cyclobenzaprine 5 mg tablet TAKE ONE TABLET BY MOUTH THREE TIMES DAILY NEEDED FOR MUSCLE SPASMS cyclobenzaprine 5 mg tablet TAKE ONE TABLET BY MOUTH THREE TIMES DAILY NEEDED FOR MUSCLE SPASMS completed cyclobenzaprine hydrochloride 5 MG Oral Tablet [place] ([facility]) 3 ML Insulin Lispro 100 UNT/ML Pen Injec tor [Humalog] Humalog KwikPen (U-100) Insulin 100 unit/mL subcutaneous Humalog KwikPen (U-100) Insulin 100 unit /mL subcutaneous completed 3 ML insulin lispro 100 UNT/ML Pen Injector [Humalog] [place] ([facility]) Cyclobenzaprine hydrochloride 5 MG Oral Tablet cyclobenzaprine 5 mg tablet TAKE ONE TABLET BY MOUTH THREE TIMES DAILY NEEDED FOR MUSCLE SPASMS cyclobenzaprine 5 mg tablet TAKE ONE TABLET BY MOUTH THREE TIMES DAILY NEEDED FOR MUSCLE SPASMS completed cyclobenzaprine hydrochloride 5 MG Oral Tablet [place] ([facility]) 3 ML Insulin Lispro 100 UNT/ML Pen Injec tor [Humalog] Humalog KwikPen (U-100) Insulin 100 unit/mL subcutaneous Humalog KwikPen (U-100) Insulin 100 unit /mL subcutaneous completed 3 ML insulin lispro 100 UNT/ML Pen Injector [Humalog] [place] ([facility]) Cyclobenzaprine hydrochloride 5 MG Oral Tablet cyclobenzaprine 5 mg tablet TAKE ONE TABLET BY MOUTH THREE TIMES DAILY NEEDED FOR MUSCLE SPASMS cyclobenzaprine 5 mg tablet TAKE ONE TABLET BY MOUTH THREE TIMES DAILY NEEDED FOR MUSCLE SPASMS completed cyclobenzaprine hydrochloride 5 MG Oral Tablet [place] ([facility]) Cyclobenzaprine hydrochloride 5 MG Oral Tablet cyclobenzaprine 5 mg tablet TAKE ONE TABLET BY MOUTH THREE TIMES DAILY NEEDED FOR MUSCLE SPASMS cyclobenzaprine 5 mg tablet TAKE ONE TABLET BY MOUTH THREE TIMES DAILY NEEDED FOR MUSCLE SPASMS completed cyclobenzaprine hydrochloride 5 MG Oral Tablet [place] ([facility]) 3 ML Insulin Lispro 100 UNT/ML Pen Injec tor [Humalog] Humalog KwikPen (U-100) Insulin 100 unit/mL subcutaneous Humalog KwikPen (U-100) Insulin 100 unit /mL subcutaneous completed 3 ML insulin lispro 100 UNT/ML Pen Injector [Humalog] [place] ([facility]) Naproxen 500 MG Oral Tablet naproxen 500 mg tablet TK 1 T PO BID P naproxen 500 mg tablet TK 1 T PO BID P completed naproxen 500 MG Oral Tablet [place] ([facility]) Cyclobenzaprine hydrochloride 5 MG Oral Tablet cyclobenzaprine 5 mg tablet TK 1 T PO TID PRN FOR MUSCLE SPASMS cyclobenzaprine 5 mg tablet TK 1 T PO TI D PRN FOR MUSCLE SPASMS completed cyclobenzaprine hydrochloride 5 MG Oral Tablet [place] ([facility]) gabapentin 300 MG Oral Capsule gabapenti n 300 mg capsule TAKE 1 CAPSULE BY MOUTH THREE TIMES DAILY gabapentin 300 mg capsule TAKE 1 CAPSULE BY MOUTH THREE TIMES DAILY completed gabapentin 300 MG Oral Capsule [place] ([facility]) 1.5 ML Insulin Glargine 300 [...] glargine 300 UNT/ML Pen Injector [Toujeo] [place] ([facility]) 3 ML Insulin Lispro 100 UNT/ML Pen Injec tor [Humalog] Humalog KwikPen (U-100) Insulin 100 unit/mL subcutaneous Humalog KwikPen (U-100) Insulin 100 unit /mL subcutaneous completed 3 ML insulin lispro 100 UNT/ML Pen Injector [Humalog] [place] ([facility]) 1.5 ML Insulin Glargine 300 [...] glargine 300 UNT/ML Pen Injector [Toujeo] [place] ([facility]) atorvastatin 20 MG Oral Tablet atorvastatin 20 mg tabl et TK 1 T PO QD atorvastatin 20 mg tablet TK 1 T PO QD completed atorvastatin 20 MG Oral Tablet [place] ([facility]) Suprep Bowel Prep Kit 17.5 gram-3.13 gram-1.6 gram ora l solution MX AND ANDREA UTD [id number] completed Suprep Bowel Prep Kit 17.5 gram-3.13 gram-1.6 gram oral solution [place] ([facility]) 0.5 ML dulaglutide 1.5 MG/ML Auto-Inject or [Trulicity] Trulicity 0.75 mg/0.5 mL subcutaneous pen injector Trulicity 0.75 mg/0.5 mL subcutaneous pen injector completed 0.5 ML dulaglu tide 1.5 MG/ML Auto-Injector [Trulicity] [place] ([facility]) gabapentin 300 MG Oral Capsule gabapenti n 300 mg capsule TAKE 1 CAPSULE BY MOUTH THREE TIMES DAILY gabapentin 300 mg capsule TAKE 1 CAPSULE BY MOUTH THREE TIMES DAILY completed gabapentin 300 MG Oral Capsule [place] ([facility]) Naproxen 500 MG Oral Tablet naproxen 500 mg tablet TK 1 T PO BID P naproxen 500 mg tablet TK 1 T PO BID P completed naproxen 500 MG Oral Tablet [place] ([facility]) atorvastatin 20 MG Oral Tablet atorvastatin 20 mg tabl et TK 1 T PO QD atorvastatin 20 mg tablet TK 1 T PO QD completed atorvastatin 20 MG Oral Tablet [place] ([facility]) Suprep Bowel Prep Kit 17.5 gram-3.13 gram-1.6 gram ora l solution MX AND DRK UTD [id number] completed Suprep Bowel Prep Kit 17.5 gram-3.13 gram-1.6 gram oral solution [place] ([facility]) 3 ML Insulin Lispro 100 UNT/ML Pen Injec tor [Humalog] Humalog KwikPen (U-100) Insulin 100 unit/mL subcutaneous Humalog KwikPen (U-100) Insulin 100 unit /mL subcutaneous completed 3 ML insulin lispro 100 UNT/ML Pen Injector [Humalog] [place] ([facility]) 0.5 ML dulaglutide 1.5 MG/ML Auto-Inject or [Trulicity] Trulicity 0.75 mg/0.5 mL subcutaneous pen injector Trulicity 0.75 mg/0.5 mL subcutaneous pen injector completed 0.5 ML dulaglu tide 1.5 MG/ML Auto-Injector [Trulicity] [place] ([facility]) Cyclobenzaprine hydrochloride 5 MG Oral Tablet cyclobenzaprine 5 mg tablet TAKE ONE TABLET BY MOUTH THREE TIMES DAILY NEEDED FOR MUSCLE SPASMS cyclobenzaprine 5 mg tablet TAKE ONE TABLET BY MOUTH THREE TIMES DAILY NEEDED FOR MUSCLE SPASMS completed cyclobenzaprine hydrochloride 5 MG Oral Tablet [place] ([facility]) atorvastatin 20 MG Oral Tablet atorvastatin 20 mg tabl et TK 1 T PO QD atorvastatin 20 mg tablet TK 1 T PO QD completed atorvastatin 20 MG Oral Tablet [place] ([facility]) atorvastatin 20 MG Oral Tablet atorvastatin 20 mg tabl et TK 1 T PO QD atorvastatin 20 mg tablet TK 1 T PO QD completed atorvastatin 20 MG Oral Tablet [place] ([facility]) Cyclobenzaprine hydrochloride 5 MG Oral Tablet cyclobenzaprine 5 mg tablet TAKE ONE TABLET BY MOUTH THREE TIMES DAILY NEEDED FOR MUSCLE SPASMS cyclobenzaprine 5 mg tablet TAKE ONE TABLET BY MOUTH THREE TIMES DAILY NEEDED FOR MUSCLE SPASMS completed cyclobenzaprine hydrochloride 5 MG Oral Tablet [place] ([facility]) 3 ML Insulin Lispro 100 UNT/ML Pen Injec tor [Humalog] Humalog KwikPen (U-100) Insulin 100 unit/mL subcutaneous Humalog KwikPen (U-100) Insulin 100 unit /mL subcutaneous completed 3 ML insulin lispro 100 UNT/ML Pen Injector [Humalog] [place] ([facility]) Suprep Bowel Prep Kit 17.5 gram-3.13 gram-1.6 gram ora l solution MX AND DRK UTD [id number] completed Suprep Bowel Prep Kit 17.5 gram-3.13 gram-1.6 gram oral solution [place] ([facility]) gabapentin 300 MG Oral Capsule gabapenti n 300 mg capsule TAKE 1 CAPSULE BY MOUTH THREE TIMES DAILY gabapentin 300 mg capsule TAKE 1 CAPSULE BY MOUTH THREE TIMES DAILY completed gabapentin 300 MG Oral Capsule [place] ([facility]) OneTouch Verio test strips U UTD TO TEST TID [id number] completed OneTouch Verio test strips [place] ([facility]) Insurance Providers Payer name Policy type / Coverage type Policy ID Covered democrat ID Covered democrat's relationship to cortes Policy [place] Plan Information MEDICARE [id number] [facility] [id number] MEDICARE A [id number] Self [id number] A Medicare P [id number] S [id number] A Medicaid S [id number] S [id number] Medicaid S [id number] S [id number] MEDICAID M [id number] Self [id number] MEDICAID [id number] Pushpa [id number] Medicare P [id number] S [id number] A MEDICAID [id number] MEDICARE PART A -O/P [id number] 18 [id number] MEDICARE CO [id number] 18 [id number] MEDICAID -RECURRING [id number] MEDICARE -RECURRING [id number] 18 [id number] MEDICAID -O/P [id number] MEDICAID [facility] [id number] MEDICARE PART A [facility] [id number] 18 [id number] Medicare Commercial [id number] Self [id number] Medicaid Commercial [id number] Self [id number] Medicare Part [place] [id number] Self [id number] Medicaid Commercial [id number] Self [id number] Medicare Commercial [id number] Self [id number] Medicaid Commercial [id number] Self [id number] [place] [id number] Self [id number] Medicaid Commercial [id number] Self [id number] Medicare Commercial [id number] Self [id number] Medicaid Commercial [id number] Self [id number] [place] Part [place] [id number] Self [id number] Medicaid Commercial [id number] Self [id number] Medicare Dme Medigap Part B [id number] Self [id number] Medicaid Medicaid [id number] Self [id number] Medicare Medicare Primary [id number] Self [id number] Medicare Dme Medigap Part B [id number] Self [id number] Medicaid Medicaid [id number] Self [id number] Medicare Medicare Primary [id number] Self [id number] Medicare Dme Medigap Part B [id number] Self [id number] Medicaid Medicaid [id number] Self [id number] Medicare Medicare Primary [id number] Self [id number] Medicaid [facility] Part B [id number] 2.16.840.1.325692.3.227.99 [id number] Self [id number] [place] [id number] 2.16.840.1.964417.3.227.99.991.181480.0 Self [id number] Medicaid Commercial [id number] 2.16.840.1.295097.3.227.99.510.13358. 0 Self [id number] Medicare Commercial [id number] 2.16.840.1.742728.3.227.99.510.154 64.0 Self [id number] Medicaid Commercial [id number] 2.16.840.1.61[id number] Self [id number] Medicare Part A [place] Medicare Primary [id number] 2.16.840.1.237381.3.227.99.510.61883.0 Self [id number] Medicaid [facility] Part B [id number] 2.16.840.1.815099.3.227.99 [id number] Self [id number] [place] [id number] 2.16.840.1.958046.3.227.99.991.385828.0 Self [id number] Medicare Commercial [id number] 2.16.840.1.073931.3.227.99.510.154 64.0 Self [id number] Medicaid Commercial [id number] 2.16.840.1.207511.3.227.99.510.46722. 0 Self [id number] Medicaid Commercial [id number] 2.16.840.1.038963.3.227.99.510.22091.0 Self [id number] [place] [id number] 2.16.840.1.210908.3.227.99.510.62554.0 Self [id number] Medicare Commercial [id number] 2.16.840.1.979185.3.227.99.510.154 64.0 Self [id number] Medicaid Commercial [id number] 2.16.840.1.396620.3.227.99.510.21476. 0 Self [id number] Medicaid Commercial [id number] 2.16.840.1.629010.3.227.99.510.52209.0 Self [id number] [place] [id number] 2.16.840.1.335097.3.227.99.510.00302.0 Self [id number] Medicare Commercial [id number] 2.16.840.1.638182.3.227.99.510.154 64.0 Self [id number] Medicaid Commercial [id number] 2.16.840.1.186819.3.227.99.510.29819. 0 Self [id number] Medicaid Commercial [id number] 2.16.840.1.144217.3.227.99.510.63719.0 Self [id number] [place] [id number] 2.16.840.1.188288.3.227.99.510.02491.0 Self [id number] Medicare Commercial [id number] 2.16.840.1.438357.3.227.99.510.154 64.0 Self [id number] Medicaid Commercial [id number] 2.16.840.1.802269.3.227.99.510.12471. 0 Self [id number] Medicaid Commercial [id number] 2.16.840.1.105054.3.227.99.510.44144.0 Self [id number] Medicare Part A [place] Medicare Primary [id number] 2.16.840.1.835812.3.227.99.510.63471.0 Self [id number] [place] [facility] [place] [id number] 2.16.840.1.860583.3.22 7.99.510.68370.0 Self [id number] Medicare Part A [place] Medicare Primary [id number] 2.16.840.1.511032.3.227.99.510.75116.0 Self [id number] [place] [facility] [place] [id number] 2.16.840.1.786047.3.22 7.99.510.00067.0 Self [id number] Medicare Part [place] [id number] 2.16.840.1.837420.3.227.99.510.49092.0 Self [id number] Medicaid [facility] Medicaid [id number] 2.16.840.1.012974.3.22 7.99.510.84859.0 Self [id number] [place] [id number] 2.16.840.1.512645.3.227.99.510.98742.0 Self [id number] Medicaid [facility] Medicaid [id number] Self [id number] Medicare [place] [id number] Self 9 [id number] Medicaid [facility] Medicaid [id number] Self [id number] Medicare [place] [id number] Self 9 [id number] Medicaid [facility] Medicaid [id number] Self [id number] Medicare [place] [id number] 2.16.840.1.874296.3.227.99.510.63932.0 Self 9 [id number] Medicaid [facility] Medicaid [id number] 2.16.840.1.344906.3.22 7.99.510.83201.0 Self [id number] [place] [id number] 2.16.840.1.511399.3.227.99.510.74681.0 Self 9 [id number] MEDICARE [id number] A Medicaid [place] Medig[place] Part B [id number] .6619.25378.0 Self [id number] [place] [id number] 2.16.840.1.157044.3.227.99.6619.93656.0 Self [id number] Medicaid [facility] Medicaid [id number] 2.16.840.1.370336.3.22 7.99.510.89950.0 Self [id number] [place] [id number] 2.16.840.1.107182.3.227.99.510.06088.0 Self 9 [id number] MEDICARE PART A -O/P [id number] Medicaid [facility] Medicaid [id number] 2.16.840.1.255312.3.22 7.99.510.58961.0 Self [id number] [place] [id number] 2.16.840.1.795690.3.227.99.510.96977.0 Self 9 [id number] Medicaid [facility] Medicaid [id number] 2.16.840.1.274625.3.22 7.99.510.32427.0 Self [id number] [place] [id number] 2.16.840.1.401421.3.227.99.510.76335.0 Self 9 [id number] Medicaid [facility] Medicaid [id number] 2.16.840.1.012605.3.22 7.99.510.96629.0 Self [id number] [place] [id number] 2.16.840.1.634939.3.227.99.510.30481.0 Self 9 [id number] Medicaid [facility] Medicaid [id number] 2.16.840.1.130640.3.22 7.99.510.28354.0 Self [id number] [place] [id number] 2.16.840.1.730507.3.227.99.510.83990.0 Self 1 [id number] Medicaid [facility] Medicaid [id number] 2.16.840.1.775118.3.22 7.99.510.17624.0 Self [id number] [place] [id number] 2.16.840.1.030004.3.227.99.510.98185.0 Self 1 [id number] Medicaid [facility] Medicaid [id number] 2.16.840.1.139010.3.22 7.99.510.40241.0 Self [id number] [place] [id number] 2.16.840.1.396401.3.227.99.510.04278.0 Self 1 [id number] Medicaid [facility] Medicaid [id number] 2.16.840.1.452228.3.22 7.99.510.35147.0 Self [id number] [place] [id number] 2.16.840.1.708694.3.227.99.510.76163.0 Self 1 [id number] Medicare Dme Medigap Part B [id number] 2.840.1.096221.3.227.99 .936.12423.0 Self [id number] Medicaid Medicaid [id number] 2.840.1.427257.3.227.99.936.05031.0 S elf [id number] Medicare Medicare Primary [id number] 2.840.1.232181.3.227. 99.936.82511.0 Self [id number] Medicare Dme Medigap Part B [id number] 01.04.840.1.045766.3.227.99 .936.67709.0 Self [id number] Medicaid Medicaid [id number] .840.1.180868.3.227.99.936.92232.0 S elf [id number] Medicare Medicare Primary [id number] 2.840.1.431841.3.227. 99.936.42521.0 Self [id number] Medicare Dme Medigap Part B [id number] 01.04.840.1.729042.3.227.99 .936.46257.0 Self [id number] Medicaid Medicaid [id number] .840.1.931687.3.227.99.936.88741.0 S elf [id number] Medicare Medicare Primary [id number] 840.1.799731.3.227. 99.936.39716.0 Self [id number] Medicare Dme Medigap Part B [id number] 840.1.434651.3.227.99 .936.33712.0 Self [id number] Medicaid Medicaid [id number] .840.1.510851.3.227.99.936.80414.0 S elf [id number] Medicare Medicare Primary [id number] .840.1.973940.3.227. 99.936.36966.0 Self [id number] Medicare Dme Medigap Part B [id number] 2.16.840.1.398737.3.227.99 .936.96880.0 Self [id number] Medicaid Medicaid [id number] 2.16.840.1.300262.3.227.99.936.22580.0 S elf [id number] Medicare Medicare Primary [id number] 2.16.840.1.179541.3.227. 99.936.79473.0 Self [id number] Medicare Dme Medigap Part B [id number] 2.16.840.1.838013.3.227.99 .936.79572.0 Self [id number] Medicaid Medicaid [id number] 2.16.840.1.190995.3.227.99.936.13275.0 S elf [id number] Medicare Medicare Primary [id number] 2.16.840.1.085098.3.227. 99.936.85071.0 Self [id number] Medicaid Medicaid 2.16.840.1.02[id number] S elf Medicare Medicare Primary 2.16.840.1.165787.3.227.99.936.23 302.0 Self HMO BLUE [id number] SP [id number] BLUE CROSS SAAVEDRA PLAN [id number] SP [id number] MEDICAID S [id number] S [id number] MEDICARE P [id number] S [id number] A HMO BLUE [id number] SP [id number] [employer] PLUS [id number] SP [id number] HEALTH WELFARE BENEFIT SYS [id number] SP [id number] [place] [id number] SP [id number] U [id number] MEDICARE [id number] SP [id number] [place]ID [place] [id number] [place]ID [place] [id number] MEDICARE PART A [facility] [id number] 18 [id number] MEDICAID -PHYSICIAN [id number] EMEDNY [id number] SP [id number] Problems, Conditions, and Diagnoses Code Display Name Description Problem Type Effective Dates Data Source(s) M542 Cervicalgia Cervicalgia Diagnosis 03/11/2021 02:01:00 PM EDT [facility] F43.9 Reaction to severe stress, unspecified 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 06/28/2021 12:00:00 AM EDT [facility] ([facility]) 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 Unspecified Schizophrenia Spectrum and Other Psychotic Disorder Condition 06/28/2021 12:00:00 AM EDT [facility] ([facility]) [id number] Cervical radiculopathy Cervical radiculopathy Problem 03/25/2021 12:00:00 AM EDT [facility] ([facility], ) E11.9 Type 2 diabetes mellitus Type 2 diabetes mellitus Prob allan 03/20/2021 12:00:00 AM EDT [facility] ([facility] M21.619 Bunion Bunion Problem 03/20/2021 12:00:00 AM ED T [facility] ([facility] [id number] SNOMED CT Concept SNOMED CT Concept Problem 01/09 12:00:00 AM EST - 02/15/2021 12:00:00 AM EDT [facility] ([facility]) [id number] Finding of urine substance level Finding of Urin e Substance Level Problem 01/09/2018 12:00:00 AM EST - 09/30/2020 12:00:00 AM JENNIFER MENDEZ ([facility]) [id number] SNOMED CT Concept SNOMED CT Concept Problem 01/09 12:00:00 AM EST - 02/15/2021 12:00:00 AM EDT VANESSA ([facility]) [id number] Finding of urine substance level Finding of Urin e Substance Level Problem 01/09/2018 12:00:00 AM EST - 09/30/2020 12:00:00 AM JENNIFER MENDEZ ([facility]) [id number] SNOMED CT Concept SNOMED CT Concept Problem 01/09 12:00:00 AM EST - 02/15/2021 12:00:00 AM EDT VANESSA ([facility]) [id number] Finding of urine substance level Finding of Urin e Substance Level Problem 01/09/2018 12:00:00 AM EST - 09/30/2020 12:00:00 AM JENNIFER MENDEZ ([facility]) [id number] SNOMED CT Concept SNOMED CT Concept Problem 01/09 12:00:00 AM EST - 02/15/2021 12:00:00 AM EDT VANESSA ([facility]) [id number] Finding of urine substance level Finding of Urin e Substance Level Problem 01/09/2018 12:00:00 AM EST - 09/30/2020 12:00:00 AM JENNIFER Bakari VANESSA ([facility]) [id number] SNOMED CT Concept SNOMED CT Concept Problem 01/09 12:00:00 AM EST - 02/15/2021 12:00:00 AM EDT [facility]ANESSA ([facility]) [id number] Finding of urine substance level Finding of Urin e Substance Level Problem 01/09/2018 12:00:00 AM EST - 09/30/2020 12:00:00 AM JENNIFER MENDEZ ([facility]) [id number] SNOMED CT Concept SNOMED CT Concept Problem 01/09 12:00:00 AM EST - 02/15/2021 12:00:00 AM EDT V[facility]ESSA ([facility]) [id number] Finding of urine substance level Finding of Urin e Substance Level Problem 01/09/2018 12:00:00 AM EST - 09/30/2020 12:00:00 AM JENNIFER Bakari VAN[facility] ([facility]) [id number] SNOMED CT Concept SNOMED CT Concept Problem 01/09 12:00:00 AM EST - 02/15/2021 12:00:00 AM EDT [facility]ESSA ([facility]) [id number] Finding of urine substance level Finding of Urin e Substance Level Problem 01/09/2018 12:00:00 AM EST - 09/30/2020 12:00:00 AM JENNIFER MENDEZ ([facility]) [id number] Finding of urine substance level Finding of Urin e Substance Level Problem 01/09/2018 12:00:00 AM EST - 09/30/2020 12:00:00 AM JENNIFER MENDEZ ([facility]) [id number] SNOMED CT Concept SNOMED CT Concept Problem 01/09 12:00:00 AM EST - 02/15/2021 12:00:00 AM EDT VANESSA ([facility]) [id number] Finding of urine substance level Finding of Urin e Substance Level Problem 01/09/2018 12:00:00 AM EST - 09/30/2020 12:00:00 AM JENNIFER MENDEZ ([facility]) [id number] SNOMED CT Concept SNOMED CT Concept Problem 01/09 12:00:00 AM EST - 02/15/2021 12:00:00 AM EDT VANESSA ([facility]) [id number] Finding of urine substance level Finding of Urin e Substance Level Problem 01/09/2018 12:00:00 AM EST - 09/30/2020 12:00:00 AM JENNIFER MENDEZ ([facility]) [id number] Renal function tests abnormal Renal Function Tests Abn ormal Problem 03/03/2016 12:00:00 AM EDT - 03/10/2021 12:00:00 AM EDT VANESSA ([facility]) [id number] Renal function tests abnormal Renal Function Tests Abn ormal Problem 03/03/2016 12:00:00 AM EDT - 03/10/2021 12:00:00 AM EDT VANESSA ([facility]) 583414433 Renal function tests abnormal Renal Function Tests Abn ormal Problem 03/03/2016 12:00:00 AM EDT - 03/10/2021 12:00:00 AM EDT VANESSA ([facility]) [id number] Renal function tests abnormal Renal Function Tests Abn ormal Problem 03/03/2016 12:00:00 AM EDT - 03/10/2021 12:00:00 AM EDT VANESSA ([facility]) [id number] Renal function tests abnormal Renal Function Tests Abn ormal Problem 03/03/2016 12:00:00 AM EDT - 03/10/2021 12:00:00 AM EDT VANESSA ([facility]) [id number] Renal function tests abnormal Renal Function Tests Abn ormal Problem 03/03/2016 12:00:00 AM EDT - 03/10/2021 12:00:00 AM EDT VANESSA ([facility]) [id number] SNOMED CT Concept SNOMED CT Concept Problem 02/02 12:00:00 AM EDT - 02/15/2021 12:00:00 AM EDT VANESSA ([facility]) [id number] Clinical finding Clinical Finding Problem 016 12:00:00 AM EDT - 02/15/2021 12:00:00 AM EDT [facility]ANESSA ([facility]) [id number] SNOMED CT Concept SNOMED CT Concept Problem 02/02 12:00:00 AM EDT - 09/30/2020 12:00:00 AM EST [facility]ANESSA ([facility]) [id number] Procedure by method Procedure by Method Problem 0 02/03/2016 12:00:00 AM EDT - 09/30/2020 12:00:00 AM EST [facility]ESSA ([facility]) [id number] Difficulty passing urine Difficulty Passing Urine Prob allan 02/03/2016 12:00:00 AM EDT - 09/30/2020 12:00:00 AM EST [facility] ([facility]) 760713214 SNOMED CT Concept SNOMED CT Concept Problem 02/02 12:00:00 AM EDT - 02/15/2021 12:00:00 AM EDT VANESSA ([facility]) [id number] Clinical finding Clinical Finding Problem 016 12:00:00 AM EDT - 02/15/2021 12:00:00 AM EDT [facility]SA ([facility]) [id number] SNOMED CT Concept SNOMED CT Concept Problem 02/02 12:00:00 AM EDT - 09/30/2020 12:00:00 AM EST [facility]ESSA ([facility]) [id number] Procedure by method Procedure by Method Problem 0 02/03/2016 12:00:00 AM EDT - 09/30/2020 12:00:00 AM EST [facility]ESSA ([facility]) [id number] Difficulty passing urine Difficulty Passing Urine Prob allan 02/03/2016 12:00:00 AM EDT - 09/30/2020 12:00:00 AM EST [facility] ([facility]) [id number] SNOMED CT Concept SNOMED CT Concept Problem 02/02 12:00:00 AM EDT - 02/15/2021 12:00:00 AM EDT [facility]ANESSA ([facility]) [id number] Clinical finding Clinical Finding Problem 016 12:00:00 AM EDT - 02/15/2021 12:00:00 AM EDT [facility]ANESSA ([facility]) [id number] SNOMED CT Concept SNOMED CT Concept Problem 02/02 12:00:00 AM EDT - 09/30/2020 12:00:00 AM EST [facility]ANESSA ([facility]) [id number] Procedure by method Procedure by Method Problem 0 02/03/2016 12:00:00 AM EDT - 09/30/2020 12:00:00 AM EST [facility]ESSA ([facility]) 031151881 Difficulty passing urine Difficulty Passing Urine Prob allan 02/03/2016 12:00:00 AM EDT - 09/30/2020 12:00:00 AM EST [facility] ([facility]) [id number] SNOMED CT Concept SNOMED CT Concept Problem 02/02 12:00:00 AM EDT - 02/15/2021 12:00:00 AM EDT [facility]ANESSA ([facility]) [id number] Clinical finding Clinical Finding Problem 016 12:00:00 AM EDT - 02/15/2021 12:00:00 AM EDT [facility]SA ([facility]) [id number] SNOMED CT Concept SNOMED CT Concept Problem 02/02 12:00:00 AM EDT - 09/30/2020 12:00:00 AM EST [facility]ESSA ([facility]) [id number] Procedure by method Procedure by Method Problem 0 02/03/2016 12:00:00 AM EDT - 09/30/2020 12:00:00 AM EST [facility]ESSA ([facility]) [id number] Difficulty passing urine Difficulty Passing Urine Prob allan 02/03/2016 12:00:00 AM EDT - 09/30/2020 12:00:00 AM EST [facility] ([facility]) 278017413 SNOMED CT Concept SNOMED CT Concept Problem 02/02 12:00:00 AM EDT - 02/15/2021 12:00:00 AM EDT VANESSA ([facility]) [id number] Clinical finding Clinical Finding Problem 016 12:00:00 AM EDT - 02/15/2021 12:00:00 AM EDT [facility]SA ([facility]) 570763053 SNOMED CT Concept SNOMED CT Concept Problem 02/02 12:00:00 AM EDT - 09/30/2020 12:00:00 AM EST [facility]ESSA ([facility]) [id number] Procedure by method Procedure by Method Problem 0 02/03/2016 12:00:00 AM EDT - 09/30/2020 12:00:00 AM EST [facility]SA ([facility]) [id number] Difficulty passing urine Difficulty Passing Urine Prob allan 02/03/2016 12:00:00 AM EDT - 09/30/2020 12:00:00 AM EST [facility]SA ([facility]) 834341445 Difficulty passing urine Difficulty Passing Urine Prob allan 02/03/2016 12:00:00 AM EDT - 09/30/2020 12:00:00 AM EST [facility] ([facility]) [id number] SNOMED CT Concept SNOMED CT Concept Problem 02/02 12:00:00 AM EDT - 02/15/2021 12:00:00 AM EDT VANESSA ([facility]) [id number] Clinical finding Clinical Finding Problem 016 12:00:00 AM EDT - 02/15/2021 12:00:00 AM EDT [facility]ANESSA ([facility]) [id number] SNOMED CT Concept SNOMED CT Concept Problem 02/02 12:00:00 AM EDT - 09/30/2020 12:00:00 AM EST [facility]ESSA ([facility]) [id number] Procedure by method Procedure by Method Problem 0 02/03/2016 12:00:00 AM EDT - 09/30/2020 12:00:00 AM EST [facility]ESSA ([facility]) [id number] Difficulty passing urine Difficulty Passing Urine Prob allan 02/03/2016 12:00:00 AM EDT - 09/30/2020 12:00:00 AM EST [facility]SA ([facility]) [id number] SNOMED CT Concept SNOMED CT Concept Problem 02/02 12:00:00 AM EDT - 09/30/2020 12:00:00 AM EST [facility]SA ([facility]) [id number] Procedure by method Procedure by Method Problem 0 02/03/2016 12:00:00 AM EDT - 09/30/2020 12:00:00 AM EST [facility]SA ([facility]) [id number] Difficulty passing urine Difficulty Passing Urine Prob allan 02/03/2016 12:00:00 AM EDT - 09/30/2020 12:00:00 AM EST [facility] ([facility]) 794608035 SNOMED CT Concept SNOMED CT Concept Problem 02/02 12:00:00 AM EDT - 02/15/2021 12:00:00 AM EDT VANESSA ([facility]) [id number] Clinical finding Clinical Finding Problem 016 12:00:00 AM EDT - 02/15/2021 12:00:00 AM EDT [facility]ESSA ([facility]) 136147468 SNOMED CT Concept SNOMED CT Concept Problem 02/02 12:00:00 AM EDT - 09/30/2020 12:00:00 AM EST [facility]SA ([facility]) [id number] Procedure by method Procedure by Method Problem 0 02/03/2016 12:00:00 AM EDT - 09/30/2020 12:00:00 AM EST [facility]SA ([facility]) [id number] Difficulty passing urine Difficulty Passing Urine Prob allan 02/03/2016 12:00:00 AM EDT - 09/30/2020 12:00:00 AM EST [facility] ([facility]) 076122728 SNOMED CT Concept SNOMED CT Concept Problem 02/02 12:00:00 AM EDT - 02/15/2021 12:00:00 AM EDT VANESSA ([facility]) [id number] Clinical finding Clinical Finding Problem 016 12:00:00 AM EDT - 02/15/2021 12:00:00 AM EDT [facility]ESSA ([facility]) 566683642 SNOMED CT Concept SNOMED CT Concept Problem 02/02 12:00:00 AM EDT - 09/30/2020 12:00:00 AM EST [facility]SA ([facility]) [id number] Procedure by method Procedure by Method Problem 0 02/03/2016 12:00:00 AM EDT - 09/30/2020 12:00:00 AM EST [facility]SA ([facility]) 704333895 Difficulty passing urine Difficulty Passing Urine Prob allan 02/03/2016 12:00:00 AM EDT - 09/30/2020 12:00:00 AM EST [facility] ([facility]) 476846569 SNOMED CT Concept SNOMED CT Concept Problem 02/02 12:00:00 AM EDT - 02/15/2021 12:00:00 AM EDT VANESSA ([facility]) 613758711 Clinical finding Clinical Finding Problem 016 12:00:00 AM EDT - 02/15/2021 12:00:00 AM EDT [facility]ANESSA ([facility]) 527276877 SNOMED CT Concept SNOMED CT Concept Problem 02/02 12:00:00 AM EDT - 09/30/2020 12:00:00 AM EST [facility]ANESSA ([facility]) [id number] Procedure by method Procedure by Method Problem 0 02/03/2016 12:00:00 AM EDT - 09/30/2020 12:00:00 AM EST [facility] ([facility]) Surgeries/Procedures Procedure Description Date Indications Data Source(s) Extended Individual Psychotherapy - 45 min 06/28/2021 12:00:00 AM EDT - 06/28/2021 12:00:00 AM EDT [facility] ([facility]) Extended Individual Psychotherapy - 45 min 12:00:00 AM EDT [facility] ([facility]) Telemed Diagnostic Eval 06/07/2021 12:00 :00 AM EDT - 06/07/2021 12:00:00 AM EDT [facility] ([facility]) Telemed Diagnostic Eval 06/07/2021 12:00:00 AM EDT [facility] ([facility]) OFFICE OUTPATIENT VISIT 25 MINUTES 05/10/2021 12:00:00 AM EDT [facility] ([facility] ) MRI SPINAL CANAL CERVICAL W/O CONTRAST MATRL 12:00:00 AM EDT [facility] ([facility] ) MRI SPINAL CANAL CERVICAL W/O CONTRAST MATRL 12:00:00 AM EDT [facility] ([facility] ) OFFICE OUTPATIENT VISIT 25 MINUTES 04/07/2021 12:00:00 AM EDT [facility] ([facility], ) Needle electromyography, each extremity, with related paraspinal areas, when performed, done with nerve conduction, amplitude and latency/velocity study; complete, five or more muscles studied, innervated by three or more nerves or four or more spinal levels (list separately in addition to the code for primary procedure). 03/28/2021 12:00:00 AM EDT MEDEN T ([facility], ) Needle Electromyography Non Extremity Done With Nerve Conduc tion 03/28/2021 12:00:00 AM EDT [facility] ([facility] ) Needle Electromyography Non Extremity Done With Nerve Conduc tion 03/28/2021 12:00:00 AM EDT [facility] ([facility] ) Nerve Conduction 11-12 Studies 03/28/2021 12:00:00 AM EDT [facility] ([facility] ) Results ID Date Data Source [id number] 07/06/2021 12:00:00 AM EDT [facility]) Name Value Range Interpretation Code Description Data Sandra rce(s) Supporting Document(s) Bacteria identified in Urine by Culture Reflexive Urine Culture [facility]) ID Date Data Source [id number] 07/06/2021 12:00:00 AM EDT [facility] ([facility]) Name Value Range Interpretation Code Description Data Sandra rce(s) Supporting Document(s) Color of Urine yellow yellow Color [facility] ([facility]) Appearance of Urine clear clear Appearance ATHEN A ([facility]) Glucose [Presence] in Urine by Test strip 3+ negati ve Abnormal (applies to non- numeric results) Glucose [facility] ([facility]) Specific gravity of Urine by Test strip 1.001-1.035 A eddie high normal Specific [place] VANESSA ([facility]) pH of Urine by Test strip 5.0-8.0 Ph VANESSA ([facility]) Bilirubin.total [Presence] in Urine by Test strip negative negative Bilirubin VANESSA ([facility]) Protein [Presence] in Urine by Test strip negative negative Protein VANESSA ([facility]) Hemoglobin [Presence] in Urine by Test strip negative negative Occult Blood VANESSA ([facility]) Ketones [Presence] in Urine by Test strip negative negative Ketones V[facility]ESSA ([facility]) Nitrite [Presence] in Urine by Test strip negative negative Nitrite [facility] ([facility]) Leukocytes [#/area] in Urine sediment by Microscopy high pow er field none seen < or = 5 Wbc [facility]SA ([facility]) Leukocyte esterase [Presence] in Urine by Test strip negative n egative Leukocyte Esterase [facility]ANESSA ([facility]) Epithelial cells.squamous [#/area] in Ur ine sediment by Microscopy high power field none seen < or = 5 Squamous Epithelial Cells AT [facility] ([facility]) Hyaline casts [#/area] in Urine sediment by Microscopy low power field none seen none seen Hyaline Cast V[facility]SA ([facility]) Bacteria [#/area] in Urine sediment by Microscopy high power field none seen none seen Bacteria V[facility]ESSA ([facility]) Erythrocytes [#/area] in Urine sediment by Microscopy high power field none seen < or = 2 Rbc [facility] ([facility]) ID Date Data Source [id number] 07/06/2021 12:00:00 AM EDT [facility] ([facility]) Name Value Range Interpretation Code Description Data Sandra rce(s) Supporting Document(s) Glucose [Mass/volume] in Serum or Plasma 308 mg/dL 65-99 Above high normal Glucose V[facility]SA ([facility]) Urea nitrogen [Mass/volume] in Serum or Plasma 15 mg/dL 7-25 Urea Nitrogen (BUN) VANESSA ([facility]) Urea nitrogen/Creatinine [Mass Ratio] in Serum or Plasma not applic able 6-22 BUN/creatinine Ratio VANES[facility] ([facility]) Creatinine [Mass/volume] in Serum or Plasma 0.93 mg/dL 0.70-1.33 Creatinine V[facility]ESSA ([facility]) Glomerular filtration rate/1.73 sq M.pre dicted among non-blacks [Volume Rate/Area] in Serum, Plasma or Blood by Creatinine-based formula (CKD-EPI) 95 mL/min/1.73m2 > or = 60 eGFR Non-afr. [place] VANESSA ([facility]) Glomerular filtration rate/1.73 sq M.pre dicted among blacks [Volume Rate/Area] in Serum, Plasma or Blood by Creatinine-based formula (CKD-EPI) 110 mL/min/1.73m2 > or = 60 eGFR [facility] ([facility]) Chloride [Moles/volume] in Serum or Plasma 102 mmol/L 98-110 Chloride VANESSA ([facility]) Potassium [Moles/volume] in Serum or Plasma 4.0 mmol/L 3.5-5.3 Potassium VANESSA ([facility]) Sodium [Moles/volume] in Serum or Plasma 135 mmol/L 135-146 Sodium VANESSA ([facility]) Carbon dioxide, total [Moles/volume] in Serum or Plasma 27 mmol/L 20-32 Carbon Dioxide VANESSA ([facility]) Calcium [Mass/volume] in Serum or Plasma 8.9 mg/dL 8.6-10.3 Calcium VANESSA ([facility]) Albumin [Mass/volume] in Serum or Plasma 4.1 g/dL 3.6-5.1 Albumin V[facility] ([facility]) Globulin [Mass/volume] in Serum by calculation 2.7 g/dL_(calc) 1.9- 3.7 Globulin V[facility] ([facility]) Protein [Mass/volume] in Serum or Plasma 6.8 g/dL 6.1-8.1 Protein, Total V[facility]SA ([facility]) Bilirubin.total [Mass/volume] in Serum or Plasma 0.9 mg/dL 0.2-1 .2 Bilirubin, Total VAN[facility]SA ([facility]) Albumin/Globulin [Mass Ratio] in Serum or Plasma 1.5 (calc) 1.0-2 .5 Albumin/globulin Ratio VANESSA ([facility]) Alkaline phosphatase [Enzymatic activity/volume] in Serum or Plasma 73 U/L 35-144 Alkaline Phosphatase [facility] ([facility]) Aspartate aminotransferase [Enzymatic activity/volume] in Se rum or Plasma 9 U/L 10-35 Below low normal Ast [facility] ([facility]) Alanine aminotransferase [Enzymatic activity/volume] in Seru m or Plasma 15 U/L 9-46 Alt [facility] ([facility]) ID Date Data Source [id number] 07/06/2021 12:00:00 AM EDT [place] ([facility]) Name Value Range Interpretation Code Description Data Sandra rce(s) Supporting Document(s) Cholesterol in HDL [Mass/volume] in Serum or Plasma 38 mg/dL > or = 40 Below low normal HDL Cholesterol [facility] ([facility]) Triglyceride [Mass/volume] in Serum or Plasma 208 mg/dL <150 Above high normal Triglycerides [facility] ([facility]) Cholesterol [Mass/volume] in Serum or Plasma 114 mg/dL <200 Cholesterol, Total [facility] ([facility]) Cholesterol in LDL [Mass/volume] in Serum or Plasma by calculation 49 mg/dL_(calc) LDL-cholesterol [facility] ([facility]) Cholesterol.total/Cholesterol in HDL [Mass Ratio] in Serum o r Plasma 3.0 (calc) <5.0 Chol/hdlc Ratio [facility] ([facility]) Cholesterol non HDL [Mass/volume] in Serum or Plasma 76 mg/dL_(calc ) <130 Non HDL Cholesterol [place] ([facility]) ID Date Data Source [id number] 06/28/2021 11:45:00 AM EDT [facility]) Name Value Range Interpretation Code Description Data Sandra rce(s) Supporting Document(s) Hemoglobin A1c/Hemoglobin.total in Blood 10.4 % Abnormal (applies to non- numeric results) Hba1C [place] ([facility]) ID Date Data Source [id number] 06/28/2021 11:45:00 AM EDT [place] ([facility]) Name Value Range Interpretation Code Description Data Sandra rce(s) Supporting Document(s) Hemoglobin A1c/Hemoglobin.total in Blood 10.4 % Abnormal (applies to non- numeric results) Hba1C [place] ([facility]) ID Date Data Source [id number] 06/28/2021 11:45:00 AM EDT [place] ([facility]) Name Value Range Interpretation Code Description Data Sandra rce(s) Supporting Document(s) Hemoglobin A1c/Hemoglobin.total in Blood 10.4 % Abnormal (applies to non- numeric results) Hba1C [place] ([facility]) ID Date Data Source [id number] 04/25/2021 08:05:00 AM EDT [facility]) Name Value Range Interpretation Code Description Data Sandra rce(s) Supporting Document(s) blood urea nitrogen 20 mg/dL 7-18 Above high normal Blood Ure a Nitrogen [place] ([facility]) glucose, fasting 382 mg/dL 70-100 Above high normal Glucose, Fas ting [facility] ([facility]) creatinine for GFR 1.19 mg/dL 0.70-1.30 Creatinine for GF R [facility] ([facility]) glomerular filtration rate > 60.0 >56 Glomerula r Filtration Rate [place] ([facility]) sodium level 135 mEq/L 136-145 Below low normal Sodium Level [facility] ([facility]) chloride level 100 mEq/L 98-107 Chloride Level [facility] ([facility]) potassium serum 4.5 mEq/L 3.5-5.1 Potassium Serum [facility] ([facility]) carbon dioxide level 27 mEq/L 21-32 Carbon Dioxide Level [facility] ([facility]) anion gap 8 mEq/L 8-16 Anion Gap [facility] ([facility]) AST/SGOT 9 U/L 7-37 AST/SGOT [facility] ([facility]) calcium level 9.3 mg/dL 8.5-10.1 Calcium Level [facility] ( [facility]) ALT/SGPT 26 U/L 12-78 ALT/SGPT [facility] ([facility]) alkaline phosphatase 71 U/L 45-117 Alkaline Phosph atase [facility] ([facility]) bilirubin,total 1.0 mg/dL 0.2-1.0 Bilirubin,total [facility] ([facility]) albumin 3.9 gm/dL 3.2-5.2 Albumin [facility] ([facility]) total protein 7.6 gm/dL 6.4-8.2 Total Protein [facility] ( [facility]) albumin/globulin ratio Albumin/globu jose l Ratio [facility] ([facility]) ID Date Data Source [id number] 04/25/2021 08:05:00 AM EDT [place] ([facility]) Name Value Range Interpretation Code Description Data Sandra rce(s) Supporting Document(s) glucose, fasting 382 mg/dL 70-100 Above high normal Glucose, Fas ting [facility] ([facility]) blood urea nitrogen 20 mg/dL 7-18 Above high normal Blood Ure a Nitrogen [facility] ([facility]) glomerular filtration rate > 60.0 >56 Glomerula r Filtration Rate [facility] ([facility]) creatinine for GFR 1.19 mg/dL 0.70-1.30 Creatinine for GF R [facility] ([facility]) potassium serum 4.5 mEq/L 3.5-5.1 Potassium Serum [facility] NA ([facility]) sodium level 135 mEq/L 136-145 Below low normal Sodium Level [facility] ([facility]) anion gap 8 mEq/L 8-16 Anion Gap [facility] ([facility]) carbon dioxide level 27 mEq/L 21-32 Carbon Dioxide Level [facility] ([facility]) chloride level 100 mEq/L 98-107 Chloride Level [facility] ([facility]) AST/SGOT 9 U/L 7-37 AST/SGOT [facility] ([facility]) calcium level 9.3 mg/dL 8.5-10.1 Calcium Level [facility] ( [facility]) alkaline phosphatase 71 U/L 45-117 Alkaline Phosph atase [facility] ([facility]) bilirubin,total 1.0 mg/dL 0.2-1.0 Bilirubin,total [facility] ([facility]) ALT/SGPT 26 U/L 12-78 ALT/SGPT [facility] ([facility]) total protein 7.6 gm/dL 6.4-8.2 Total Protein [facility] ( [facility]) albumin 3.9 gm/dL 3.2-5.2 Albumin [facility] ([facility]) albumin/globulin ratio Albumin/globu jose l Ratio [facility] ([facility]) ID Date Data Source [id number] 04/25/2021 08:05:00 AM EDT [place] ([facility]) Name Value Range Interpretation Code Description Data Sandra rce(s) Supporting Document(s) glucose, fasting 382 mg/dL 70-100 Above high normal Glucose, Fas ting [facility] ([facility]) glomerular filtration rate > 60.0 >56 Glomerula r Filtration Rate [facility] ([facility]) creatinine for GFR 1.19 mg/dL 0.70-1.30 Creatinine for GF R [facility] ([facility]) blood urea nitrogen 20 mg/dL 7-18 Above high normal Blood Ure a Nitrogen [facility] ([facility]) sodium level 135 mEq/L 136-145 Below low normal Sodium Level [facility] ([facility]) chloride level 100 mEq/L 98-107 Chloride Level [facility] ([facility]) potassium serum 4.5 mEq/L 3.5-5.1 Potassium Serum [facility] ([facility]) carbon dioxide level 27 mEq/L 21-32 Carbon Dioxide Level [facility] ([facility]) anion gap 8 mEq/L 8-16 Anion Gap [facility] ([facility]) calcium level 9.3 mg/dL 8.5-10.1 Calcium Level [facility] ( [facility]) ALT/SGPT 26 U/L 12-78 ALT/SGPT [facility] ([facility]) AST/SGOT 9 U/L 7-37 AST/SGOT [facility] ([facility]) total protein 7.6 gm/dL 6.4-8.2 Total Protein [facility] ( [facility]) alkaline phosphatase 71 U/L 45-117 Alkaline Phosph atase [facility] ([facility]) bilirubin,total 1.0 mg/dL 0.2-1.0 Bilirubin,total [facility] ([facility]) albumin/globulin ratio Albumin/globu jose l Ratio [facility] ([facility]) albumin 3.9 gm/dL 3.2-5.2 Albumin [facility] ([facility]) ID Date Data Source [id number] 04/25/2021 08:05:00 AM EDT [place] ([facility]) Name Value Range Interpretation Code Description Data Sandra rce(s) Supporting Document(s) creatinine for GFR 1.19 mg/dL 0.70-1.30 Creatinine for GF R [place] ([facility]) glucose, fasting 382 mg/dL 70-100 Above high normal Glucose, Fas ting [facility] ([facility]) blood urea nitrogen 20 mg/dL 7-18 Above high normal Blood Ure a Nitrogen [facility] ([facility]) glomerular filtration rate > 60.0 >56 Glomerula r Filtration Rate [facility] ([facility]) sodium level 135 mEq/L 136-145 Below low normal Sodium Level [facility] ([facility]) carbon dioxide level 27 mEq/L 21-32 Carbon Dioxide Level [facility] ([facility]) potassium serum 4.5 mEq/L 3.5-5.1 Potassium Serum [facility] ([facility]) chloride level 100 mEq/L 98-107 Chloride Level [facility] ([facility]) anion gap 8 mEq/L 8-16 Anion Gap [facility] ([facility]) calcium level 9.3 mg/dL 8.5-10.1 Calcium Level [facility] ( [facility]) alkaline phosphatase 71 U/L 45-117 Alkaline Phosph atase [facility] ([facility]) ALT/SGPT 26 U/L 12-78 ALT/SGPT [facility] ([facility]) AST/SGOT 9 U/L 7-37 AST/SGOT [facility] ([facility]) total protein 7.6 gm/dL 6.4-8.2 Total Protein [facility] ( [facility]) bilirubin,total 1.0 mg/dL 0.2-1.0 Bilirubin,total [facility] ([facility]) albumin 3.9 gm/dL 3.2-5.2 Albumin [facility] ([facility]) albumin/globulin ratio Albumin/globu jose l Ratio [facility] ([facility]) ID Date Data Source [id number] 04/07/2021 04:34:00 PM EDT [place] ([facility]) Name Value Range Interpretation Code Description Data Sandra rce(s) Supporting Document(s) antinuclear antibodies direct negative negative Antinu clear Antibodies Direct [facility] ([facility]) ID Date Data Source [id number] 04/07/2021 04:34:00 PM EDT [place] ([facility]) Name Value Range Interpretation Code Description Data Sandra rce(s) Supporting Document(s) vitamin B6,pyridoxal phosphate 13.4 ug/L 5.3-46.7 Vitamin B6,Pyridoxal Phosphate [facility] ([facility]) ID Date Data Source [id number] 04/07/2021 04:34:00 PM EDT [place] ([facility]) Name Value Range Interpretation Code Description Data Sandra rce(s) Supporting Document(s) vitamin B1 level whole blood 134.8 nmol/L 66.5-200.0 Vitamin B1 Level Whole Blood [place] ([facility]) ID Date Data Source [id number] 04/07/2021 04:34:00 PM EDT [facility]) Name Value Range Interpretation Code Description Data Sandra rce(s) Supporting Document(s) vitamin E(alpha tocopherol) 6.2 mg/L 7.0-25.1 Below low nor mal Vitamin E(alpha Tocopherol) [place] ([facility]) vitamin E(gamma tocopherol) 0.7 mg/L 0.5-5.5 Vitamin E(gamma Tocopherol) [facility]) ID Date Data Source [id number] 04/07/2021 04:34:00 PM EDT [facility]) Name Value Range Interpretation Code Description Data Sandra rce(s) Supporting Document(s) rheumatoid factor quant < 10.0 <15.0 Rheumatoid F actor Quant [place] ([facility]) ID Date Data Source [id number] 04/07/2021 04:34:00 PM EDT [facility]) Name Value Range Interpretation Code Description Data Sandra rce(s) Supporting Document(s) vitamin B12 level 493 pg/mL [facility] folate 17.7 NG/mL Folate [facility] ([facility]) ID Date Data Source [id number] 04/07/2021 04:34:00 PM EDT [facility]) Name Value Range Interpretation Code Description Data Sandra rce(s) Supporting Document(s) albumin % 60.8 % 55.8-66.1 Albumin % [place] ([facility]) zuqsj-4-zdpnygla % 3.4 % 2.9-4.9 Wgevc-7-Upkngtdo % [place] ([facility]) kjwx-1-umyeifxqc % 5.5 % 4.7-7.2 Nqwy-6-Ysuzovxde % [place] ([facility]) lowfw-0-lnryjigpe % 10.3 % 7.1-11.8 Sgewz-8-Aquggceb s % [place] ([facility]) gamma globulin % 14.3 % 11.1-18.8 Gamma Globulin % AT [facility]) njev-7-flxiczitx % 5.7 % 3.2-6.5 Rovz-5-Cqpidcium % [place] ([facility]) ylkes-9-nqlrysyvt 0.25 gm/dL 0.17-0.41 Tiazj-8-Swofhcxyc [place] ([facility]) albumin 4.44 gm/dL 3.29-5.55 Albumin [place] ([facility]) vcthj-7-xdxntjrjb 0.75 gm/dL 0.42-0.99 Hwfzp-2-Kmxdameqc [place] ([facility]) nchj-3-jcarppczh 0.40 gm/dL 0.28-0.60 Lzbx-6-Isjegyltx AT [facility] ([facility]) tmfm-1-bralvxhdk 0.42 gm/dL 0.19-0.55 Ezuo-6-Sskayqvji AT [facility] ([facility]) gamma globulins 1.04 gm/dL 0.65-1.58 Gamma Globulins [facility] ([facility]) spep interpretation see comment Spep Interpreta tion [place] ([facility]) total protein 7.3 gm/dL 6.4-8.2 Total Protein [place] ( [facility]) spep pathologist review rev'd by Anna kumar Spep Pathologist Review [place] ([facility]) ID Date Data Source [id number] 04/07/2021 04:34:00 PM EDT [place] ([facility]) Name Value Range Interpretation Code Description Data Sandra rce(s) Supporting Document(s) PTT lupus type anticoag screen 0-1.2 PTT L upus Type Anticoag Screen [place] ([facility]) ID Date Data Source [id number] 04/07/2021 04:34:00 PM EDT [place] ([facility]) Name Value Range Interpretation Code Description Data Sandra rce(s) Supporting Document(s) erythrocyte sedimentation rate 3 mm/HR 0-20 Eryth rocyte Sedimentation Rate [place] ([facility]) ID Date Data Source [id number] 04/07/2021 04:34:00 PM EDT [place] ([facility]) Name Value Range Interpretation Code Description Data Sandra rce(s) Supporting Document(s) Hemoglobin A1c/Hemoglobin.total in Blood 11.3 % Hemoglobin a1C [place] ([facility]) estimated average glucose 278 mg/dL 60-110 Above high norm al Estimated Average Glucose [facility]) ID Date Data Source [id number] 04/07/2021 04:34:00 PM EDT [place] ([facility]) Name Value Range Interpretation Code Description Data Sandra rce(s) Supporting Document(s) antinuclear antibodies direct negative negative Antinu clear Antibodies Direct [facility]) ID Date Data Source [id number] 04/07/2021 04:34:00 PM EDT [facility]) Name Value Range Interpretation Code Description Data Sandra rce(s) Supporting Document(s) vitamin B6,pyridoxal phosphate 13.4 ug/L 5.3-46.7 Vitamin B6,Pyridoxal Phosphate [place] ([facility]) ID Date Data Source [id number] 04/07/2021 04:34:00 PM EDT [facility]) Name Value Range Interpretation Code Description Data Sandra rce(s) Supporting Document(s) vitamin B1 level whole blood 134.8 nmol/L 66.5-200.0 Vitamin B1 Level Whole Blood [facility]) ID Date Data Source [id number] 04/07/2021 04:34:00 PM EDT [place] ([facility]) Name Value Range Interpretation Code Description Data Sandra rce(s) Supporting Document(s) vitamin E(alpha tocopherol) 6.2 mg/L 7.0-25.1 Below low nor mal Vitamin E(alpha Tocopherol) [place] ([facility]) vitamin E(gamma tocopherol) 0.7 mg/L 0.5-5.5 Vitamin E(gamma Tocopherol) [place] ([facility]) ID Date Data Source [id number] 04/07/2021 04:34:00 PM EDT [facility]) Name Value Range Interpretation Code Description Data Sandra rce(s) Supporting Document(s) rheumatoid factor quant < 10.0 <15.0 Rheumatoid F actor Quant [facility]) ID Date Data Source [id number] 04/07/2021 04:34:00 PM EDT [facility]) Name Value Range Interpretation Code Description Data Sandra rce(s) Supporting Document(s) vitamin B12 level 493 pg/mL Vitamin B12 Level [facility]) folate 17.7 NG/mL Folate [facility] ([facility]) ID Date Data Source [id number] 04/07/2021 04:34:00 PM EDT [facility]) Name Value Range Interpretation Code Description Data Sandra rce(s) Supporting Document(s) albumin % 60.8 % 55.8-66.1 Albumin % [place] ([facility]) hleoi-3-lvxzoiiv % 3.4 % 2.9-4.9 Gxdlv-2-Ibrufbzh % [place] ([facility]) ojrtw-9-kqwtaehqm % 10.3 % 7.1-11.8 Zxxfo-0-Oyeaylfe s % [place] ([facility]) zabx-5-aoxqvgjxz % 5.7 % 3.2-6.5 Camr-9-Keqnljwhj % [place] ([facility]) bcgu-3-tgftysoen % 5.5 % 4.7-7.2 Hvvu-8-Gmrgjwsth % [place] ([facility]) albumin 4.44 gm/dL 3.29-5.55 Albumin [place] ([facility]) gamma globulin % 14.3 % 11.1-18.8 Gamma Globulin % AT [facility] ([facility]) etiih-5-jnnkqotmx 0.25 gm/dL 0.17-0.41 Rcgvd-2-Riedjrzfg [place] ([facility]) rvvlq-4-mppngrfsp 0.75 gm/dL 0.42-0.99 Rzfzg-5-Zkjevwvby [place] ([facility]) ntue-6-exlgtsirv 0.42 gm/dL 0.19-0.55 Zwyw-7-Hcrtlldqw AT [facility] ([facility]) fepc-8-pzvioaruo 0.40 gm/dL 0.28-0.60 Mzms-4-Wtfmidhfx AT [facility] ([facility]) gamma globulins 1.04 gm/dL 0.65-1.58 Gamma Globulins [facility] ([facility]) spep interpretation see comment Spep Interpreta tion [place] ([facility]) total protein 7.3 gm/dL 6.4-8.2 Total Protein [place] ( [facility]) spep pathologist review rev'd by Anna kumar Spep Pathologist Review [place] ([facility]) ID Date Data Source [id number] 04/07/2021 04:34:00 PM EDT [place] ([facility]) Name Value Range Interpretation Code Description Data Sandra rce(s) Supporting Document(s) PTT lupus type anticoag screen 0-1.2 PTT L upus Type Anticoag Screen [place] ([facility]) ID Date Data Source [id number] 04/07/2021 04:34:00 PM EDT [place] ([facility]) Name Value Range Interpretation Code Description Data Sandra rce(s) Supporting Document(s) erythrocyte sedimentation rate 3 mm/HR 0-20 Eryth rocyte Sedimentation Rate [place] ([facility]) ID Date Data Source [id number] 04/07/2021 04:34:00 PM EDT [place] ([facility]) Name Value Range Interpretation Code Description Data Sandra rce(s) Supporting Document(s) estimated average glucose 278 mg/dL 60-110 Above high norm al Estimated Average Glucose [place] ([facility]) Hemoglobin A1c/Hemoglobin.total in Blood 11.3 % Hemoglobin a1C [place] ([facility]) ID Date Data Source [id number] 04/07/2021 04:34:00 PM EDT [facility]) Name Value Range Interpretation Code Description Data Sandra rce(s) Supporting Document(s) antinuclear antibodies direct negative negative Antinu clear Antibodies Direct [facility]) ID Date Data Source [id number] 04/07/2021 04:34:00 PM EDT [facility]) Name Value Range Interpretation Code Description Data Sandra rce(s) Supporting Document(s) vitamin B6,pyridoxal phosphate 13.4 ug/L 5.3-46.7 Vitamin B6,Pyridoxal Phosphate [place] ([facility]) ID Date Data Source [id number] 04/07/2021 04:34:00 PM EDT [facility]) Name Value Range Interpretation Code Description Data Sandra rce(s) Supporting Document(s) vitamin B1 level whole blood 134.8 nmol/L 66.5-200.0 Vitamin B1 Level Whole Blood [facility]) ID Date Data Source [id number] 04/07/2021 04:34:00 PM EDT [facility]) Name Value Range Interpretation Code Description Data Sandra rce(s) Supporting Document(s) vitamin E(alpha tocopherol) 6.2 mg/L 7.0-25.1 Below low nor mal Vitamin E(alpha Tocopherol) [place] ([facility]) vitamin E(gamma tocopherol) 0.7 mg/L 0.5-5.5 Vitamin E(gamma Tocopherol) [place] ([facility]) ID Date Data Source [id number] 04/07/2021 04:34:00 PM EDT [facility]) Name Value Range Interpretation Code Description Data Sandra rce(s) Supporting Document(s) rheumatoid factor quant < 10.0 <15.0 Rheumatoid F actor Quant [place] ([facility]) ID Date Data Source [id number] 04/07/2021 04:34:00 PM EDT [facility]) Name Value Range Interpretation Code Description Data Sandra rce(s) Supporting Document(s) vitamin B12 level 493 pg/mL Vitamin B12 Level [facility]) folate 17.7 NG/mL Folate [place] ([facility]) ID Date Data Source [id number] 04/07/2021 04:34:00 PM EDT [facility]) Name Value Range Interpretation Code Description Data Sandra rce(s) Supporting Document(s) albumin % 60.8 % 55.8-66.1 Albumin % [facility]) lbclg-1-dqzfjqix % 3.4 % 2.9-4.9 Xbbyf-1-Ujgzvmye % [facility]) llnwo-8-gbfwheyvg % 10.3 % 7.1-11.8 Uhrnx-8-Ikmcppoy s % [place] ([facility]) dlbs-6-rekhmtunc % 5.5 % 4.7-7.2 Bxgh-2-Chstdeyuv % [facility]) sxvz-8-vnmuhfuav % 5.7 % 3.2-6.5 Ihjq-9-Rgbqjqhpb % [facility]) gamma globulin % 14.3 % 11.1-18.8 Gamma Globulin % AT [facility] ([facility]) nxmfy-2-kzpwlkpkz 0.75 gm/dL 0.42-0.99 Jzicq-2-Ecsgifqrp [place] ([facility]) yffbo-1-khcrjcyua 0.25 gm/dL 0.17-0.41 Gwmag-8-Ibkzdudoy [facility] ([facility]) albumin 4.44 gm/dL 3.29-5.55 Albumin [facility] ([facility]) slgj-7-yjbjdshll 0.40 gm/dL 0.28-0.60 Vxpe-9-Clswckoof AT [facility] ([facility]) kafs-5-cstbfiglz 0.42 gm/dL 0.19-0.55 Exmg-0-Yxnpvvogp AT [facility] ([facility]) gamma globulins 1.04 gm/dL 0.65-1.58 Gamma Globulins [facility] ([facility]) spep interpretation see comment Spep Interpreta tion [place] ([facility]) spep pathologist review rev'd by Anna kumar Spep Pathologist Review [place] ([facility]) total protein 7.3 gm/dL 6.4-8.2 Total Protein [place] ( [facility]) ID Date Data Source [id number] 04/07/2021 04:34:00 PM EDT [place] ([facility]) Name Value Range Interpretation Code Description Data Sandra rce(s) Supporting Document(s) PTT lupus type anticoag screen 0-1.2 PTT L upus Type Anticoag Screen [facility] ([facility]) ID Date Data Source [id number] 04/07/2021 04:34:00 PM EDT [place] ([facility]) Name Value Range Interpretation Code Description Data Sandra rce(s) Supporting Document(s) erythrocyte sedimentation rate 3 mm/HR 0-20 Eryth rocyte Sedimentation Rate [facility]) ID Date Data Source [id number] 04/07/2021 04:34:00 PM EDT [facility]) Name Value Range Interpretation Code Description Data Sandra rce(s) Supporting Document(s) Hemoglobin A1c/Hemoglobin.total in Blood 11.3 % Hemoglobin a1C [facility] ([facility]) estimated average glucose 278 mg/dL 60-110 Above high norm al Estimated Average Glucose [place] [facility] Center) ID Date Data Source [id number] 04/07/2021 04:34:00 PM EDT [facility] ([facility], ) Name Value Range Interpretation Code Description Data Sandra rce(s) Supporting Document(s) Antinuclear Antibodies Direct Laboratory test result [facility] ([facility], ) Performed at: - [address] [id number] Beef Pusher: Jaime Chaney MD, Phone: [phone] Performed at: [facility] [address] [id number] Beef Pusher: Andria Dinh MD, Phone: [phone] ID Date Data Source [id number] 04/07/2021 04:34:00 PM EDT [facility] ([facility], ) Name Value Range Interpretation Code Description Data Sandra rce(s) Supporting Document(s) Thiamine [Mass/volume] in Blood 134.8 nmol/L 66.5-200.0 [facility] ([facility], ) Specimen Comment: Test(s) 387137-Dihftxb E(Alpha Tocopherol); 907078- Specimen Comment: Vitamin E(Gamma Tocopherol); 978470-Udzxywm B6; 879032- Specimen Comment: Vit. B1, Whole Blood Specimen Comment: was developed and its performance characteristics Specimen Comment: determined by [facility]. It has not been cleared or approved Specimen Comment: by the Food and Drug Administration. Pyridoxine [Mass/volume] in Serum or Plasma 13.4 ug/L 5.3-46.7 [facility] ([facility], ) Specimen Comment: Test(s) 454032-Zrvygwe E(Alpha Tocopherol); 699926- Specimen Comment: Vitamin E(Gamma Tocopherol); 305523-Hhgfjpr B6; 453679- Specimen Comment: Vit. B1, Whole Blood Specimen Comment: was developed and its performance characteristics Specimen Comment: determined by [facility]. It has not been cleared or approved Specimen Comment: by the Food and Drug Administration. ID Date Data Source [id number] 04/07/2021 04:34:00 PM EDT [facility] ([facility], ) Name Value Range Interpretation Code Description Data Sandra rce(s) Supporting Document(s) Vitamin E(Alpha Tocopherol) 6.2 mg/L 7.0-25.1 [facility] ([facility], ) Vitamin E(Gamma Tocopherol) 0.7 mg/L 0.5-5.5 [facility] ([facility]) Reference intervals for alpha and gamma- tocopherol determined from National Health and Nutrition Examination Survey, 0627-3884. Individuals with alpha-tocopherol levels less than 5.0 mg/L are considered vitamin E deficient. ID Date Data Source [id number] 04/07/2021 04:34:00 PM EDT [facility] ([facility], ) Name Value Range Interpretation Code Description Data Sandra rce(s) Supporting Document(s) Rheumatoid factor [Units/volume] in Serum or Plasma Laboratory test result [facility] ([facility], ) <content>note:<nlbl:demographic_changed> </content>
<content></content> ID Date Data Source [id number] 04/07/2021 04:34:00 PM EDT [facility] ([facility], ) Name Value Range Interpretation Code Description Data Sandra rce(s) Supporting Document(s) Vitamin B12 Level 493 pg/mL [facility] ([facility], ) VITAMIN B12 NORMAL RANGE NORMAL 247 - 911 PG/ML INDETERMINATE 211 - 246 PG/ML DEFICIENT LESS THAN 211 PG/ML Folate 17.7 ng/mL [facility] ([facility], ) FOLATE NORMAL RANGE NORMAL GREATER THAN 5.4 NG/ML INDETERMINATE 3.4-5.4 NG/ML DEFICIENT LESS THAN 3.4 NG/ML ID Date Data Source [id number] 04/07/2021 04:34:00 PM EDT [facility] ([facility], ) Name Value Range Interpretation Code Description Data Sandra rce(s) Supporting Document(s) Albumin % 60.8 % 55.8-66.1 [facility] ([facility], ) Ojyke-3-Jqeuhzjv % 3.4 % 2.9-4.9 [facility] ([facility], ) Fnkiy-5-Ggtbkssue % 10.3 % 7.1-11.8 [facility] ([facility]) Nhen-8-Uimwtkaeu % 5.5 % 4.7-7.2 [facility] ([facility]) Qfpk-8-Ckkbsbsly % 5.7 % 3.2-6.5 [facility] ([facility]) Albumin 4.44 GM/DL 3.29-5.55 [facility] ([facility]) Gamma Globulin % 14.3 % 11.1-18.8 [facility] ([facility]) Orhdt-1-Fzettcbfh 0.25 GM/DL 0.17-0.41 [facility] ([facility]) Zbdyn-5-Zyaygbpsp 0.75 GM/DL 0.42-0.99 [facility] ([facility]) Fopr-0-Htdbxbwbx 0.42 GM/DL 0.19-0.55 [facility] ([facility]) Nzuq-7-Ggwcxrytd 0.40 GM/DL 0.28-0.60 [facility] ([facility]) Gamma Globulins 1.04 GM/DL 0.65-1.58 [facility] ([facility]) Total Protein 7.3 GM/DL 6.4-8.2 [facility] ([facility]) Spep Interpretation Laboratory test result [facility] ([facility]) NO M-SPIKE(S)NOTED. Laboratory test finding (navigational concept) Laboratory test result [facility] ([facility]) REV'D BY Anna KUMAR ID Date Data Source [id number] 04/07/2021 04:34:00 PM EDT [facility] ([facility]) Name Value Range Interpretation Code Description Data Sandra rce(s) Supporting Document(s) Hemoglobin A1c 11.3 % [facility] ([facility]) <content>REFERENCE RANGES:</content><br/ ><content></content>
<content><=5.6% NORMAL</content>
<content>5.7-6.4% SUGGESTS IMPAIRED GLUCOSE METABOLISM/PREDIABETIC</content>
<content>>= 6.5% ABNORMAL</content>
<content></content> Estimated Average Glucose 278 mg/dL 60-110 [facility] ([facility]) ID Date Data Source [id number] 04/07/2021 04:34:00 PM EDT [place] ([facility]) Name Value Range Interpretation Code Description Data Sandra rce(s) Supporting Document(s) antinuclear antibodies direct negative negative Antinu clear Antibodies Direct [place] ([facility]) ID Date Data Source [id number] 04/07/2021 04:34:00 PM EDT [place] ([facility]) Name Value Range Interpretation Code Description Data Sandra rce(s) Supporting Document(s) vitamin B6,pyridoxal phosphate 13.4 ug/L 5.3-46.7 Vitamin B6,Pyridoxal Phosphate [place] ([facility]) ID Date Data Source [id number] 04/07/2021 04:34:00 PM EDT [place] ([facility]) Name Value Range Interpretation Code Description Data Sandra rce(s) Supporting Document(s) vitamin B1 level whole blood 134.8 nmol/L 66.5-200.0 Vitamin B1 Level Whole Blood [place] ([facility]) ID Date Data Source [id number] 04/07/2021 04:34:00 PM EDT [facility]) Name Value Range Interpretation Code Description Data Sandra rce(s) Supporting Document(s) vitamin E(alpha tocopherol) 6.2 mg/L 7.0-25.1 Below low nor mal Vitamin E(alpha Tocopherol) [place] ([facility]) vitamin E(gamma tocopherol) 0.7 mg/L 0.5-5.5 Vitamin E(gamma Tocopherol) [facility]) ID Date Data Source [id number] 04/07/2021 04:34:00 PM EDT [facility]) Name Value Range Interpretation Code Description Data Sandra rce(s) Supporting Document(s) rheumatoid factor quant < 10.0 <15.0 Rheumatoid F actor Quant [place] ([facility]) ID Date Data Source [id number] 04/07/2021 04:34:00 PM EDT [place] ([facility]) Name Value Range Interpretation Code Description Data Sandra rce(s) Supporting Document(s) vitamin B12 level 493 pg/mL Vitamin B12 Level [facility]) folate 17.7 NG/mL Folate [facility] ([facility]) ID Date Data Source [id number] 04/07/2021 04:34:00 PM EDT [place] ([facility]) Name Value Range Interpretation Code Description Data Sandra rce(s) Supporting Document(s) lzjyi-3-okbgeqxa % 3.4 % 2.9-4.9 Pybhn-3-Esxsaoeh % [facility]) albumin % 60.8 % 55.8-66.1 Albumin % [facility]) cyar-0-szvwzjvyb % 5.7 % 3.2-6.5 Ucnr-8-Alnowhyxe % [facility]) qzaw-8-gxfafkbid % 5.5 % 4.7-7.2 Vtbt-5-Sxdcfuzxh % [facility]) pbhnf-3-tmmsgbgjm % 10.3 % 7.1-11.8 Ktxjg-0-Omisxkkb s % [facility]) albumin 4.44 gm/dL 3.29-5.55 Albumin [facility]) vxvmt-8-yqjhavmdk 0.25 gm/dL 0.17-0.41 Xhkyc-4-Glsgwpjyo [facility]) gamma globulin % 14.3 % 11.1-18.8 Gamma Globulin % AT [facility]) tnmo-8-xsilabrmf 0.42 gm/dL 0.19-0.55 Keov-8-Inntqblil AT [facility]) muec-9-vtntypous 0.40 gm/dL 0.28-0.60 Syko-3-Idggjvzom AT [facility] ([facility]) edwpp-7-oxnnwxnch 0.75 gm/dL 0.42-0.99 Lejgc-4-Dfdhwkeqv [facility] ([facility]) gamma globulins 1.04 gm/dL 0.65-1.58 Gamma Globulins [facility] ([facility]) spep interpretation see comment Spep Interpreta tion [facility] ([facility]) total protein 7.3 gm/dL 6.4-8.2 Total Protein [facility] ( [facility]) spep pathologist review rev'd by Anna kumar Spep Pathologist Review [place] ([facility]) ID Date Data Source [id number] 04/07/2021 04:34:00 PM EDT [place] ([facility]) Name Value Range Interpretation Code Description Data Sandra rce(s) Supporting Document(s) PTT lupus type anticoag screen 0-1.2 PTT L upus Type Anticoag Screen [facility] ([facility]) ID Date Data Source [id number] 04/07/2021 04:34:00 PM EDT [place] ([facility]) Name Value Range Interpretation Code Description Data Sandra rce(s) Supporting Document(s) erythrocyte sedimentation rate 3 mm/HR 0-20 Eryth rocyte Sedimentation Rate [facility] ([facility]) ID Date Data Source [id number] 04/07/2021 04:34:00 PM EDT [place] ([facility]) Name Value Range Interpretation Code Description Data Sandra rce(s) Supporting Document(s) estimated average glucose 278 mg/dL 60-110 Above high norm al Estimated Average Glucose [facility] ([facility]) Hemoglobin A1c/Hemoglobin.total in Blood 11.3 % Hemoglobin a1C [facility] ([facility]) ID Date Data Source [id number] 04/07/2021 04:34:00 PM EDT [facility] ([facility]) Name Value Range Interpretation Code Description Data Sandra rce(s) Supporting Document(s) PTT Lupus Type Anticoag Screen 0.8 0-1.2 [facility] ([facility], ) RESULT IS LESS THAN 1.2, NO FURTHER [...] a specific inhibitor. ID Date Data Source [id number] 04/07/2021 04:34:00 PM EDT [facility] ([facility], ) Name Value Range Interpretation Code Description Data Sandra rce(s) Supporting Document(s) Erythrocyte sedimentation rate by 2H Westergren method 3 mm/hr 0-2 0 [facility] ([facility], ) ID Date Data Source [id number] 03/10/2021 08:51:00 AM EDT [facility]) Name Value Range Interpretation Code Description Data Sandra rce(s) Supporting Document(s) Hemoglobin A1c/Hemoglobin.total in Blood 13.2 % Abnormal (applies to non- numeric results) [facility]1C [facility]) ID Date Data Source [id number] 03/10/2021 08:51:00 AM EDT [facility]) Name Value Range Interpretation Code Description Data Sandra rce(s) Supporting Document(s) Hemoglobin A1c/Hemoglobin.total in Blood 13.2 % Abnormal (applies to non- numeric results) Hba1C [place] ([facility]) ID Date Data Source [id number] 03/10/2021 08:51:00 AM EDT [facility]) Name Value Range Interpretation Code Description Data Sandra rce(s) Supporting Document(s) Hemoglobin A1c/Hemoglobin.total in Blood 13.2 % Abnormal (applies to non- numeric results) Hba1C [place] ([facility]) ID Date Data Source [id number] 03/10/2021 08:51:00 AM EDT [place] ([facility]) Name Value Range Interpretation Code Description Data Sandra rce(s) Supporting Document(s) Hemoglobin A1c/Hemoglobin.total in Blood 13.2 % Abnormal (applies to non- numeric results) Hba1C [place] ([facility]) ID Date Data Source [id number] 03/10/2021 08:51:00 AM EDT [place] ([facility]) Name Value Range Interpretation Code Description Data Sandra rce(s) Supporting Document(s) Hemoglobin A1c/Hemoglobin.total in Blood 13.2 % Abnormal (applies to non- numeric results) Hba1C [place] ([facility]) ID Date Data Source [id number] 03/10/2021 08:51:00 AM EDT [place] ([facility]) Name Value Range Interpretation Code Description Data Sandra rce(s) Supporting Document(s) Hemoglobin A1c/Hemoglobin.total in Blood 13.2 % Abnormal (applies to non- numeric results) Hba1C [place] ([facility]) ID Date Data Source [id number] 03/09/2021 08:39:00 AM EDT [place] ([facility]) Name Value Range Interpretation Code Description Data Sandra rce(s) Supporting Document(s) creatinine, urine 52.7 mg/dL Creatinine, Urine [place] ([facility]) malb urine siemens 35.3 mg/L Malb Urine Siemen s [place] ([facility]) jesse/creat ratio 66.9 mcg/mg 0.0-30.0 Above high normal Jesse/creat Ra susy [place] ([facility]) ID Date Data Source [id number] 03/09/2021 08:39:00 AM EDT [facility] ([facility]) Name Value Range Interpretation Code Description Data Sandra rce(s) Supporting Document(s) cholesterol level 145 mg/dL <200 Cholesterol Level [facility] ([facility]) triglycerides level 176 mg/dL <150 Above high normal Triglycer ides Level [facility] ([facility]) HDL cholesterol 47 mg/dL >40 HDL Cholesterol [facility] ([facility]) cholesterol risk ratio <5 Cholesterol R isk Ratio [facility] ([facility]) non-HDL-C 98 mg/dL Non-hdl-c [facility] ([facility]) Cholesterol in LDL [Mass/volume] in Serum or Plasma 63 mg/dL <1 00 LDL Cholesterol [facility] ([facility]) ID Date Data Source [id number] 03/09/2021 08:39:00 AM EDT [facility] ([facility]) Name Value Range Interpretation Code Description Data Sandra rce(s) Supporting Document(s) glucose, fasting 326 mg/dL 70-100 Above high normal Glucose, Fas ting [facility] ([facility]) blood urea nitrogen 15 mg/dL 7-18 Blood Urea Nitro gen [facility] ([facility]) creatinine for GFR 1.04 mg/dL 0.70-1.30 Creatinine for GF R [facility] ([facility]) glomerular filtration rate > 60.0 >56 Glomerula r Filtration Rate [facility] ([facility]) potassium serum 4.3 mEq/L 3.5-5.1 Potassium Serum [facility] ([facility]) sodium level 137 mEq/L 136-145 Sodium Level [facility] ([facility]) anion gap 4 mEq/L 8-16 Below low normal Anion Gap [facility] ( [facility]) chloride level 102 mEq/L 98-107 Chloride Level [facility] ([facility]) carbon dioxide level 31 mEq/L 21-32 Carbon Dioxide Level [facility] ([facility]) ALT/SGPT 29 U/L 12-78 ALT/SGPT [facility] ([facility]) AST/SGOT 11 U/L 7-37 AST/SGOT [facility] ([facility]) calcium level 9.3 mg/dL 8.5-10.1 Calcium Level [facility] ( [facility]) alkaline phosphatase 74 U/L 45-117 Alkaline Phosph atase [facility] ([facility]) bilirubin,total 1.1 mg/dL 0.2-1.0 Above high normal Bilirubin,tot al [facility] ([facility]) total protein 7.9 gm/dL 6.4-8.2 Total Protein [facility] ( [facility]) albumin 4.2 gm/dL 3.2-5.2 Albumin [facility] ([facility]) albumin/globulin ratio Albumin/globu jose l Ratio [facility] ([facility]) ID Date Data Source [id number] 03/09/2021 08:39:00 AM EDT [place] ([facility]) Name Value Range Interpretation Code Description Data Sandra rce(s) Supporting Document(s) white blood count 6.3 10 4.0-10.0 White Blood Count [facility] ([facility]) red blood count 5.76 10 4.30-6.10 Red Blood Count [facility] ([facility]) hemoglobin 18.4 g/dL 13.5-17.5 Above high normal Hemoglobin [place] ([facility]) mean corpuscular volume 90.1 fL 80.0-96.0 Mean Corpusc ular Volume [facility] ([facility]) hematocrit 51.9 % 42.0-52.0 Hematocrit [facility] ([facility]) red cell distribution width 12.7 % 11.5-14.5 Red Cell Distribution Width [facility] ([facility]) mean corpuscular hemoglobin 31.9 pg 27.0-33.0 Mean Cor puscular Hemoglobin [facility] ([facility]) mean corpuscular HGB conc 35.5 g/dL 32.0-36.5 Mean Corpu scular HGB Conc [facility] ([facility]) neutrophils % 59.4 % 36.0-66.0 Neutrophils % [facility] ( [facility]) platelet count, automated 171 10 150-450 Platelet C ount, Automated [facility] ([facility]) mono % 9.4 % 2.0-8.0 Above high normal [place] % [facility] ([facility]) eos % 1.8 % 0.0-3.0 Eos % [facility] ([facility]) lymph % 28.3 % 24.0-44.0 Lymph % [place] ([facility]) immature granulocyte % 0.6 % 0-3.0 Immature Gran ulocyte % [facility] ([facility]) baso % 0.5 % 0.0-1.0 Baso % [facility] ([facility]) nucleated red blood cell % 0.0 % 0-0 Nucleated Red Blood Cell % [facility] ([facility]) neutrophils # 3.7 10 1.5-8.5 Neutrophils # [facility] ( [facility]) mono # 0.6 10 0.0-0.8 [place] # [facility] ([facility]) lymph # 1.8 10 1.5-5.0 Lymph # [facility] ([facility]) baso # 0.0 10 0.0-0.2 Baso # [facility] ([facility]) eos # 0.1 10 0.0-0.5 Eos # [facility] ([facility]) ID Date Data Source [id number] 03/09/2021 08:39:00 AM EDT [place] ([facility]) Name Value Range Interpretation Code Description Data Sandra rce(s) Supporting Document(s) creatinine, urine 52.7 mg/dL Creatinine, Urine [place] ([facility]) jesse/creat ratio 66.9 mcg/mg 0.0-30.0 Above high normal Jesse/creat Ra susy [place] ([facility]) malb urine siemens 35.3 mg/L Malb Urine Siemen s [facility] ([facility]) ID Date Data Source [id number] 03/09/2021 08:39:00 AM EDT [place] ([facility]) Name Value Range Interpretation Code Description Data Sandra rce(s) Supporting Document(s) triglycerides level 176 mg/dL <150 Above high normal Triglycer ides Level [facility] ([facility]) Cholesterol in LDL [Mass/volume] in Serum or Plasma 63 mg/dL <1 00 LDL Cholesterol [facility] ([facility]) cholesterol level 145 mg/dL <200 Cholesterol Level [facility] ([facility]) HDL cholesterol 47 mg/dL >40 HDL Cholesterol [facility] ([facility]) non-HDL-C 98 mg/dL Non-hdl-c [facility] ([facility]) cholesterol risk ratio <5 Cholesterol R isk Ratio [facility] ([facility]) ID Date Data Source [id number] 03/09/2021 08:39:00 AM EDT [facility] ([facility]) Name Value Range Interpretation Code Description Data Sandra rce(s) Supporting Document(s) glucose, fasting 326 mg/dL 70-100 Above high normal Glucose, Fas ting [facility] ([facility]) creatinine for GFR 1.04 mg/dL 0.70-1.30 Creatinine for GF R [facility] ([facility]) blood urea nitrogen 15 mg/dL 7-18 Blood Urea Nitro gen [facility] ([facility]) potassium serum 4.3 mEq/L 3.5-5.1 Potassium Serum [facility] ([facility]) chloride level 102 mEq/L 98-107 Chloride Level [facility] ([facility]) glomerular filtration rate > 60.0 >56 Glomerula r Filtration Rate [facility] ([facility]) sodium level 137 mEq/L 136-145 Sodium Level [facility] ([facility]) anion gap 4 mEq/L 8-16 Below low normal Anion Gap [facility] ( [facility]) calcium level 9.3 mg/dL 8.5-10.1 Calcium Level [facility] ( [facility]) carbon dioxide level 31 mEq/L 21-32 Carbon Dioxide Level [facility] ([facility]) ALT/SGPT 29 U/L 12-78 ALT/SGPT [facility] ([facility]) AST/SGOT 11 U/L 7-37 AST/SGOT [facility] ([facility]) alkaline phosphatase 74 U/L 45-117 Alkaline Phosph atase [facility] ([facility]) bilirubin,total 1.1 mg/dL 0.2-1.0 Above high normal Bilirubin,tot al [facility] ([facility]) albumin 4.2 gm/dL 3.2-5.2 Albumin [facility] ([facility]) albumin/globulin ratio Albumin/globu jose l Ratio [facility] ([facility]) total protein 7.9 gm/dL 6.4-8.2 Total Protein [facility] ( [facility]) ID Date Data Source [id number] 03/09/2021 08:39:00 AM EDT [place] ([facility]) Name Value Range Interpretation Code Description Data Sandra rce(s) Supporting Document(s) white blood count 6.3 10 4.0-10.0 White Blood Count [facility] ([facility]) hemoglobin 18.4 g/dL 13.5-17.5 Above high normal Hemoglobin [facility] ([facility]) red blood count 5.76 10 4.30-6.10 Red Blood Count [facility] ([facility]) hematocrit 51.9 % 42.0-52.0 Hematocrit [facility] ([facility]) mean corpuscular volume 90.1 fL 80.0-96.0 Mean Corpusc ular Volume [facility] ([facility]) mean corpuscular hemoglobin 31.9 pg 27.0-33.0 Mean Cor puscular Hemoglobin [facility] ([facility]) mean corpuscular HGB conc 35.5 g/dL 32.0-36.5 Mean Corpu scular HGB Conc [facility] ([facility]) red cell distribution width 12.7 % 11.5-14.5 Red Cell Distribution Width [facility] ([facility]) platelet count, automated 171 10 150-450 Platelet C ount, Automated [facility] ([facility]) neutrophils % 59.4 % 36.0-66.0 Neutrophils % [facility] ( [facility]) mono % 9.4 % 2.0-8.0 Above high normal [place] % [facility] ([facility]) lymph % 28.3 % 24.0-44.0 Lymph % [facility] ([facility]) eos % 1.8 % 0.0-3.0 Eos % [facility] ([facility]) baso % 0.5 % 0.0-1.0 Baso % [facility] ([facility]) immature granulocyte % 0.6 % 0-3.0 Immature Gran ulocyte % [facility] ([facility]) nucleated red blood cell % 0.0 % 0-0 Nucleated Red Blood Cell % [facility] ([facility]) eos # 0.1 10 0.0-0.5 Eos # [facility] ([facility]) mono # 0.6 10 0.0-0.8 [place] # [facility] ([facility]) lymph # 1.8 10 1.5-5.0 Lymph # [facility] ([facility]) neutrophils # 3.7 10 1.5-8.5 Neutrophils # [facility] ( [facility]) baso # 0.0 10 0.0-0.2 Baso # [facility] ([facility]) ID Date Data Source [id number] 03/09/2021 08:39:00 AM EDT [place] ([facility]) Name Value Range Interpretation Code Description Data Sandra rce(s) Supporting Document(s) malb urine siemens 35.3 mg/L Malb Urine Siemen s [facility] ([facility]) creatinine, urine 52.7 mg/dL Creatinine, Urine [facility] ([facility]) jesse/creat ratio 66.9 mcg/mg 0.0-30.0 Above high normal Jesse/creat Ra susy [place] ([facility]) ID Date Data Source [id number] 03/09/2021 08:39:00 AM EDT [place] ([facility]) Name Value Range Interpretation Code Description Data Sandra rce(s) Supporting Document(s) Cholesterol in LDL [Mass/volume] in Serum or Plasma 63 mg/dL <1 00 LDL Cholesterol [facility] ([facility]) HDL cholesterol 47 mg/dL >40 HDL Cholesterol ATHE ([facility]) triglycerides level 176 mg/dL <150 Above high normal Triglycer ides Level VANESSA ([facility]) cholesterol level 145 mg/dL <200 Cholesterol Level VANESSA ([facility]) cholesterol risk ratio <5 Cholesterol R isk Ratio V[facility] ([facility]) non-HDL-C 98 mg/dL Non-hdl-c V[facility] ([facility]) ID Date Data Source [id number] 03/09/2021 08:39:00 AM EDT [facility] ([facility]) Name Value Range Interpretation Code Description Data Sandra rce(s) Supporting Document(s) glomerular filtration rate > 60.0 >56 Glomerula r Filtration Rate V[facility] ([facility]) glucose, fasting 326 mg/dL 70-100 Above high normal Glucose, Fas ting V[facility]ES[facility] ([facility]) blood urea nitrogen 15 mg/dL 7-18 Blood Urea Nitro gen V[facility]ES[facility] ([facility]) creatinine for GFR 1.04 mg/dL 0.70-1.30 Creatinine for GF R V[facility] ([facility]) potassium serum 4.3 mEq/L 3.5-5.1 Potassium Serum ATHE ([facility]) sodium level 137 mEq/L 136-145 Sodium Level V[facility]ESSA ([facility]) chloride level 102 mEq/L 98-107 Chloride Level V[facility]ESSA ([facility]) carbon dioxide level 31 mEq/L 21-32 Carbon Dioxide Level V[facility]ESSA ([facility]) AST/SGOT 11 U/L 7-37 AST/SGOT [facility] ([facility]) anion gap 4 mEq/L 8-16 Below low normal Anion Gap VANESSA ( [facility]) calcium level 9.3 mg/dL 8.5-10.1 Calcium Level V[facility]ESSA ( [facility]) alkaline phosphatase 74 U/L 45-117 Alkaline Phosph atase [facility] ([facility]) ALT/SGPT 29 U/L 12-78 ALT/SGPT [facility] ([facility]) bilirubin,total 1.1 mg/dL 0.2-1.0 Above high normal Bilirubin,tot al [facility] ([facility]) total protein 7.9 gm/dL 6.4-8.2 Total Protein V[facility] ( [facility]) albumin 4.2 gm/dL 3.2-5.2 Albumin V[facility]SA ([facility]) albumin/globulin ratio Albumin/globu jose l Ratio V[facility]ESSA ([facility]) ID Date Data Source [id number] 03/09/2021 08:39:00 AM EDT [facility] ([facility]) Name Value Range Interpretation Code Description Data Sandra rce(s) Supporting Document(s) red blood count 5.76 10 4.30-6.10 Red Blood Count ATHE ([facility]) white blood count 6.3 10 4.0-10.0 White Blood Count V[facility] ([facility]) hemoglobin 18.4 g/dL 13.5-17.5 Above high normal Hemoglobin V[facility] ([facility]) mean corpuscular volume 90.1 fL 80.0-96.0 Mean Corpusc ular Volume V[facility]ESSA ([facility]) hematocrit 51.9 % 42.0-52.0 Hematocrit V[facility] ([facility]) mean corpuscular hemoglobin 31.9 pg 27.0-33.0 Mean Cor puscular Hemoglobin [facility] ([facility]) mean corpuscular HGB conc 35.5 g/dL 32.0-36.5 Mean Corpu scular HGB Conc V[facility] ([facility]) red cell distribution width 12.7 % 11.5-14.5 Red Cell Distribution Width V[facility] ([facility]) lymph % 28.3 % 24.0-44.0 Lymph % [facility] ([facility]) mono % 9.4 % 2.0-8.0 Above high normal [place] % [facility] ([facility]) platelet count, automated 171 10 150-450 Platelet C ount, Automated V[facility] ([facility]) neutrophils % 59.4 % 36.0-66.0 Neutrophils % V[facility] ( [facility]) immature granulocyte % 0.6 % 0-3.0 Immature Gran ulocyte % [facility] ([facility]) baso % 0.5 % 0.0-1.0 Baso % [facility] ([facility]) eos % 1.8 % 0.0-3.0 Eos % [facility] ([facility]) lymph # 1.8 10 1.5-5.0 Lymph # [facility] ([facility]) mono # 0.6 10 0.0-0.8 [place] # [facility] ([facility]) nucleated red blood cell % 0.0 % 0-0 Nucleated Red Blood Cell % [facility] ([facility]) neutrophils # 3.7 10 1.5-8.5 Neutrophils # V[facility]ESSA ( [facility]) eos # 0.1 10 0.0-0.5 Eos # [facility] ([facility]) baso # 0.0 10 0.0-0.2 Baso # [facility] ([facility]) ID Date Data Source [id number] 03/09/2021 08:39:00 AM EDT [place] ([facility]) Name Value Range Interpretation Code Description Data Sandar rce(s) Supporting Document(s) creatinine, urine 52.7 mg/dL Creatinine, Urine [facility] ([facility]) malb urine siemens 35.3 mg/L Malb Urine Siemen s [facility] ([facility]) jesse/creat ratio 66.9 mcg/mg 0.0-30.0 Above high normal Jesse/creat Ra susy [facility] ([facility]) ID Date Data Source [id number] 03/09/2021 08:39:00 AM EDT [place] ([facility]) Name Value Range Interpretation Code Description Data Sandra rce(s) Supporting Document(s) cholesterol level 145 mg/dL <200 Cholesterol Level V[facility]ES[facility] ([facility]) HDL cholesterol 47 mg/dL >40 HDL Cholesterol ATHE NA ([facility]) triglycerides level 176 mg/dL <150 Above high normal Triglycer ides Level V[facility]ES[facility] ([facility]) non-HDL-C 98 mg/dL Non-hdl-c [facility] ([facility]) cholesterol risk ratio <5 Cholesterol R isk Ratio [facility] ([facility]) Cholesterol in LDL [Mass/volume] in Serum or Plasma 63 mg/dL <1 00 LDL Cholesterol [facility] ([facility]) ID Date Data Source [id number] 03/09/2021 08:39:00 AM EDT [facility] ([facility]) Name Value Range Interpretation Code Description Data Sandra rce(s) Supporting Document(s) blood urea nitrogen 15 mg/dL 7-18 Blood Urea Nitro gen [facility] ([facility]) glomerular filtration rate > 60.0 >56 Glomerula r Filtration Rate [facility] ([facility]) glucose, fasting 326 mg/dL 70-100 Above high normal Glucose, Fas ting [facility] ([facility]) creatinine for GFR 1.04 mg/dL 0.70-1.30 Creatinine for GF R [facility] ([facility]) sodium level 137 mEq/L 136-145 Sodium Level [facility] ([facility]) potassium serum 4.3 mEq/L 3.5-5.1 Potassium [facility] chloride level 102 mEq/L 98-107 Chloride Level V[facility] ([facility]) carbon dioxide level 31 mEq/L 21-32 Carbon Dioxide Level [facility] ([facility]) calcium level 9.3 mg/dL 8.5-10.1 Calcium Level [facility] ( [facility]) AST/SGOT 11 U/L 7-37 AST/SGOT [facility] ([facility]) ALT/SGPT 29 U/L 12-78 ALT/SGPT [facility] ([facility]) anion gap 4 mEq/L 8-16 Below low normal Anion Gap [facility] ( [facility]) total protein 7.9 gm/dL 6.4-8.2 Total Protein [facility] ( [facility]) albumin 4.2 gm/dL 3.2-5.2 Albumin [facility] ([facility]) alkaline phosphatase 74 U/L 45-117 Alkaline Phosph atase [facility] ([facility]) bilirubin,total 1.1 mg/dL 0.2-1.0 Above high normal Bilirubin,tot al [facility] ([facility]) albumin/globulin ratio Albumin/globu jose l Ratio [facility] ([facility]) ID Date Data Source [id number] 03/09/2021 08:39:00 AM EDT [facility] ([facility]) Name Value Range Interpretation Code Description Data Sandra rce(s) Supporting Document(s) white blood count 6.3 10 4.0-10.0 White Blood Count [facility] ([facility]) hemoglobin 18.4 g/dL 13.5-17.5 Above high normal Hemoglobin [facility] ([facility]) red blood count 5.76 10 4.30-6.10 Red Blood Count ATHE ([facility]) hematocrit 51.9 % 42.0-52.0 Hematocrit V[facility] ([facility]) mean corpuscular hemoglobin 31.9 pg 27.0-33.0 Mean Cor puscular Hemoglobin [facility] ([facility]) mean corpuscular HGB conc 35.5 g/dL 32.0-36.5 Mean Corpu scular HGB Conc [facility] ([facility]) mean corpuscular volume 90.1 fL 80.0-96.0 Mean Corpusc ular Volume [facility] ([facility]) red cell distribution width 12.7 % 11.5-14.5 Red Cell Distribution Width [facility] ([facility]) platelet count, automated 171 10 150-450 Platelet C ount, Automated [facility] ([facility]) neutrophils % 59.4 % 36.0-66.0 Neutrophils % [facility] ( [facility]) baso % 0.5 % 0.0-1.0 Baso % [facility] ([facility]) lymph % 28.3 % 24.0-44.0 Lymph % [facility] ([facility]) eos % 1.8 % 0.0-3.0 Eos % [facility] ([facility]) mono % 9.4 % 2.0-8.0 Above high normal [place] % [facility] ([facility]) neutrophils # 3.7 10 1.5-8.5 Neutrophils # [facility] ( [facility]) nucleated red blood cell % 0.0 % 0-0 Nucleated Red Blood Cell % [facility] ([facility]) immature granulocyte % 0.6 % 0-3.0 Immature Gran ulocyte % [facility] ([facility]) lymph # 1.8 10 1.5-5.0 Lymph # [facility] ([facility]) eos # 0.1 10 0.0-0.5 Eos # [facility] ([facility]) mono # 0.6 10 0.0-0.8 [place] # [facility] ([facility]) baso # 0.0 10 0.0-0.2 Baso # [facility] ([facility]) ID Date Data Source [id number] 03/09/2021 08:39:00 AM EDT [place] ([facility]) Name Value Range Interpretation Code Description Data Sandra rce(s) Supporting Document(s) malb urine siemens 35.3 mg/L Malb Urine Siemen s [facility] ([facility]) creatinine, urine 52.7 mg/dL Creatinine, Urine [facility] ([facility]) jesse/creat ratio 66.9 mcg/mg 0.0-30.0 Above high normal Jesse/creat Ra susy [facility] ([facility]) ID Date Data Source [id number] 03/09/2021 08:39:00 AM EDT [place] ([facility]) Name Value Range Interpretation Code Description Data Sandra rce(s) Supporting Document(s) cholesterol level 145 mg/dL <200 Cholesterol Level V[facility] ([facility]) triglycerides level 176 mg/dL <150 Above high normal Triglycer ides Level [facility] ([facility]) HDL cholesterol 47 mg/dL >40 HDL Cholesterol ATHE NA ([facility]) Cholesterol in LDL [Mass/volume] in Serum or Plasma 63 mg/dL <1 00 LDL Cholesterol [facility] ([facility]) cholesterol risk ratio <5 Cholesterol R isk Ratio [facility] ([facility]) non-HDL-C 98 mg/dL Non-hdl-c [facility] ([facility]) ID Date Data Source [id number] 03/09/2021 08:39:00 AM EDT [place] ([facility]) Name Value Range Interpretation Code Description Data Sandra rce(s) Supporting Document(s) glucose, fasting 326 mg/dL 70-100 Above high normal Glucose, Fas ting [facility] ([facility]) blood urea nitrogen 15 mg/dL 7-18 Blood Urea Nitro gen [facility] ([facility]) creatinine for GFR 1.04 mg/dL 0.70-1.30 Creatinine for GF R [facility] ([facility]) potassium serum 4.3 mEq/L 3.5-5.1 Potassium Serum ATHE NA ([facility]) glomerular filtration rate > 60.0 >56 Glomerula r Filtration Rate V[facility] ([facility]) chloride level 102 mEq/L 98-107 Chloride Level [facility] ([facility]) sodium level 137 mEq/L 136-145 Sodium Level [facility] ([facility]) calcium level 9.3 mg/dL 8.5-10.1 Calcium Level V[facility] ( [facility]) carbon dioxide level 31 mEq/L 21-32 Carbon Dioxide Level [facility] ([facility]) anion gap 4 mEq/L 8-16 Below low normal Anion Gap V[facility] ( [facility]) alkaline phosphatase 74 U/L 45-117 Alkaline Phosph atase [facility] ([facility]) bilirubin,total 1.1 mg/dL 0.2-1.0 Above high normal Bilirubin,tot al [facility] ([facility]) AST/SGOT 11 U/L 7-37 AST/SGOT [facility] ([facility]) ALT/SGPT 29 U/L 12-78 ALT/SGPT [facility] ([facility]) albumin 4.2 gm/dL 3.2-5.2 Albumin [place] ([facility]) total protein 7.9 gm/dL 6.4-8.2 Total Protein [facility] ( [facility]) albumin/globulin ratio Albumin/globu jose l Ratio [facility] ([facility]) ID Date Data Source [id number] 03/09/2021 08:39:00 AM EDT [place] ([facility]) Name Value Range Interpretation Code Description Data Sandra rce(s) Supporting Document(s) white blood count 6.3 10 4.0-10.0 White Blood Count [facility] ([facility]) red blood count 5.76 10 4.30-6.10 Red Blood Count AT[facility] ([facility]) hemoglobin 18.4 g/dL 13.5-17.5 Above high normal Hemoglobin [facility] ([facility]) mean corpuscular HGB conc 35.5 g/dL 32.0-36.5 Mean Corpu scular HGB Conc [facility] ([facility]) hematocrit 51.9 % 42.0-52.0 Hematocrit [facility] ([facility]) mean corpuscular hemoglobin 31.9 pg 27.0-33.0 Mean Cor puscular Hemoglobin [facility] ([facility]) mean corpuscular volume 90.1 fL 80.0-96.0 Mean Corpusc ular Volume [facility] ([facility]) platelet count, automated 171 10 150-450 Platelet C ount, Automated [facility] ([facility]) red cell distribution width 12.7 % 11.5-14.5 Red Cell Distribution Width [facility] ([facility]) neutrophils % 59.4 % 36.0-66.0 Neutrophils % [facility] ( [facility]) mono % 9.4 % 2.0-8.0 Above high normal [place] % [facility] ([facility]) lymph % 28.3 % 24.0-44.0 Lymph % [facility] ([facility]) eos % 1.8 % 0.0-3.0 Eos % [facility] ([facility]) immature granulocyte % 0.6 % 0-3.0 Immature Gran ulocyte % [facility] ([facility]) baso % 0.5 % 0.0-1.0 Baso % [facility] ([facility]) mono # 0.6 10 0.0-0.8 [place] # [facility] ([facility]) lymph # 1.8 10 1.5-5.0 Lymph # [facility] ([facility]) nucleated red blood cell % 0.0 % 0-0 Nucleated Red Blood Cell % [facility] ([facility]) neutrophils # 3.7 10 1.5-8.5 Neutrophils # [facility] ( [facility]) baso # 0.0 10 0.0-0.2 Baso # [facility] ([facility]) eos # 0.1 10 0.0-0.5 Eos # [facility] ([facility]) ID Date Data Source [id number] 03/09/2021 08:39:00 AM EDT [facility] ([facility]) Name Value Range Interpretation Code Description Data Sandra rce(s) Supporting Document(s) creatinine, urine 52.7 mg/dL Creatinine, Urine [facility] ([facility]) jesse/creat ratio 66.9 mcg/mg 0.0-30.0 Above high normal Jesse/creat Ra susy [facility] ([facility]) malb urine siemens 35.3 mg/L Malb Urine Siemen s [facility] ([facility]) ID Date Data Source [id number] 03/09/2021 08:39:00 AM EDT [place] ([facility]) Name Value Range Interpretation Code Description Data Sandra rce(s) Supporting Document(s) cholesterol level 145 mg/dL <200 Cholesterol Level [facility] ([facility]) triglycerides level 176 mg/dL <150 Above high normal Triglycer ides Level [facility] ([facility]) Cholesterol in LDL [Mass/volume] in Serum or Plasma 63 mg/dL <1 00 LDL Cholesterol [facility] ([facility]) non-HDL-C 98 mg/dL Non-hdl-c [facility] ([facility]) HDL cholesterol 47 mg/dL >40 HDL Cholesterol ATHE NA ([facility]) cholesterol risk ratio <5 Cholesterol R isk Ratio [place] ([facility]) ID Date Data Source [id number] 03/09/2021 08:39:00 AM EDT [place] ([facility]) Name Value Range Interpretation Code Description Data Sandra rce(s) Supporting Document(s) creatinine for GFR 1.04 mg/dL 0.70-1.30 Creatinine for GF R [facility] ([facility]) glomerular filtration rate > 60.0 >56 Glomerula r Filtration Rate [facility] ([facility]) glucose, fasting 326 mg/dL 70-100 Above high normal Glucose, Fas ting [facility] ([facility]) blood urea nitrogen 15 mg/dL 7-18 Blood Urea Nitro gen [facility] ([facility]) potassium serum 4.3 mEq/L 3.5-5.1 Potassium Serum AT[facility] ([facility]) sodium level 137 mEq/L 136-145 Sodium Level [facility] ([facility]) chloride level 102 mEq/L 98-107 Chloride Level [facility] ([facility]) anion gap 4 mEq/L 8-16 Below low normal Anion Gap [facility] ( [facility]) calcium level 9.3 mg/dL 8.5-10.1 Calcium Level [place] ( [facility]) carbon dioxide level 31 mEq/L 21-32 Carbon Dioxide Level [facility] ([facility]) bilirubin,total 1.1 mg/dL 0.2-1.0 Above high normal Bilirubin,tot al [facility] ([facility]) AST/SGOT 11 U/L 7-37 AST/SGOT [facility] ([facility]) alkaline phosphatase 74 U/L 45-117 Alkaline Phosph atase [facility] ([facility]) ALT/SGPT 29 U/L 12-78 ALT/SGPT [facility] ([facility]) total protein 7.9 gm/dL 6.4-8.2 Total Protein [facility] ( [facility]) albumin/globulin ratio Albumin/globu jose l Ratio [facility] ([facility]) albumin 4.2 gm/dL 3.2-5.2 Albumin [facility] ([facility]) ID Date Data Source [id number] 03/09/2021 08:39:00 AM EDT [place] ([facility]) Name Value Range Interpretation Code Description Data Sandra rce(s) Supporting Document(s) white blood count 6.3 10 4.0-10.0 White Blood Count [facility] ([facility]) red blood count 5.76 10 4.30-6.10 Red Blood Count ATHE NA ([facility]) hemoglobin 18.4 g/dL 13.5-17.5 Above high normal Hemoglobin [facility] ([facility]) hematocrit 51.9 % 42.0-52.0 Hematocrit [facility] ([facility]) mean corpuscular HGB conc 35.5 g/dL 32.0-36.5 Mean Corpu scular HGB Conc [facility] ([facility]) mean corpuscular hemoglobin 31.9 pg 27.0-33.0 Mean Cor puscular Hemoglobin [facility] ([facility]) mean corpuscular volume 90.1 fL 80.0-96.0 Mean Corpusc ular Volume [facility] ([facility]) red cell distribution width 12.7 % 11.5-14.5 Red Cell Distribution Width [facility] ([facility]) platelet count, automated 171 10 150-450 Platelet C ount, Automated [facility] ([facility]) neutrophils % 59.4 % 36.0-66.0 Neutrophils % [facility] ( [facility]) mono % 9.4 % 2.0-8.0 Above high normal [place] % [facility] ([facility]) lymph % 28.3 % 24.0-44.0 Lymph % [facility] ([facility]) eos % 1.8 % 0.0-3.0 Eos % [facility] ([facility]) baso % 0.5 % 0.0-1.0 Baso % [facility] ([facility]) immature granulocyte % 0.6 % 0-3.0 Immature Gran ulocyte % [facility] ([facility]) lymph # 1.8 10 1.5-5.0 Lymph # [facility] ([facility]) mono # 0.6 10 0.0-0.8 [place] # [facility] ([facility]) neutrophils # 3.7 10 1.5-8.5 Neutrophils # [place] ( [facility]) nucleated red blood cell % 0.0 % 0-0 Nucleated Red Blood Cell % [facility] ([facility]) baso # 0.0 10 0.0-0.2 Baso # [place] ([facility]) eos # 0.1 10 0.0-0.5 Eos # [facility] ([facility]) ID Date Data Source [id number] 02/15/2021 08:58:00 AM EDT [facility]) Name Value Range Interpretation Code Description Data Sandra rce(s) Supporting Document(s) sars-cov-2 negative negative Sars-cov-2 [facility]) ID Date Data Source [id number] 02/15/2021 08:58:00 AM EDT [facility]) Name Value Range Interpretation Code Description Data Sandra rce(s) Supporting Document(s) sars-cov-2 negative negative Sars-cov-2 [facility]) ID Date Data Source [id number] 02/15/2021 08:58:00 AM EDT [facility]) Name Value Range Interpretation Code Description Data Sandra rce(s) Supporting Document(s) sars-cov-2 negative negative Sars-cov-2 [facility]) ID Date Data Source [id number] 02/15/2021 08:58:00 AM EDT [facility]) Name Value Range Interpretation Code Description Data Sandra rce(s) Supporting Document(s) sars-cov-2 negative negative Sars-cov-2 [facility]) ID Date Data Source [id number] 02/15/2021 08:58:00 AM EDT [place] ([facility]) Name Value Range Interpretation Code Description Data Sandra rce(s) Supporting Document(s) sars-cov-2 negative negative Sars-cov-2 [place] ([facility]) ID Date Data Source [id number] 02/15/2021 08:58:00 AM EDT [place] ([facility]) Name Value Range Interpretation Code Description Data Sandra rce(s) Supporting Document(s) sars-cov-2 negative negative Sars-cov-2 [place] ([facility]) ID Date Data Source [id number] 02/15/2021 08:58:00 AM EDT [place] ([facility]) Name Value Range Interpretation Code Description Data Sandra rce(s) Supporting Document(s) sars-cov-2 negative negative Sars-cov-2 [place] ([facility]) ID Date Data Source [id number] 02/15/2021 08:58:00 AM EDT [place] ([facility]) Name Value Range Interpretation Code Description Data Sandra rce(s) Supporting Document(s) sars-cov-2 negative negative Sars-cov-2 [place] ([facility]) ID Date Data Source [id number] 02/15/2021 08:56:00 AM EDT [facility] Name Value Range Interpretation Code Description Data Sandra rce(s) Supporting Document(s) SARS coronavirus 2 RdRp gene [Presence] in Respiratory specimen by ABHINAV with probe detection Not detected [facility] This lab was ordered by [facility] and reported by [facility]. ID Date Data Source [id number] 09/28/2020 12:00:00 AM EST [place] ([facility]) Name Value Range Interpretation Code Description Data Sandra rce(s) Supporting Document(s) Hemoglobin A1c/Hemoglobin.total in Blood 11.4 % Above high normal Hba1C [place] ([facility]) ID Date Data Source [id number] 09/28/2020 12:00:00 AM EST [place] ([facility]) Name Value Range Interpretation Code Description Data Sandra rce(s) Supporting Document(s) Hemoglobin A1c/Hemoglobin.total in Blood 11.4 % Above high normal Hba1C [place] ([facility]) ID Date Data Source [id number] 09/28/2020 12:00:00 AM EST [facility]) Name Value Range Interpretation Code Description Data Sandra rce(s) Supporting Document(s) Hemoglobin A1c/Hemoglobin.total in Blood 11.4 % Above high normal Hba1C [place] ([facility]) ID Date Data Source [id number] 09/28/2020 12:00:00 AM EST [facility]) Name Value Range Interpretation Code Description Data Sandra rce(s) Supporting Document(s) Hemoglobin A1c/Hemoglobin.total in Blood 11.4 % Above high normal Hba1C [facility]) ID Date Data Source [id number] 09/28/2020 12:00:00 AM EST [facility]) Name Value Range Interpretation Code Description Data Sandra rce(s) Supporting Document(s) Hemoglobin A1c/Hemoglobin.total in Blood 11.4 % Above high normal Hba1C [facility]) ID Date Data Source [id number] 09/28/2020 12:00:00 AM EST [facility]) Name Value Range Interpretation Code Description Data Sandra rce(s) Supporting Document(s) Hemoglobin A1c/Hemoglobin.total in Blood 11.4 % Above high normal Hba1C [facility]) ID Date Data Source [id number] 09/28/2020 12:00:00 AM EST [facility] ([facility]) Name Value Range Interpretation Code Description Data Sandra rce(s) Supporting Document(s) Hemoglobin A1c/Hemoglobin.total in Blood 11.4 % Above high normal [facility] [place] ([facility]) ID Date Data Source [id number] 09/28/2020 12:00:00 AM EST [facility] ([facility]) Name Value Range Interpretation Code Description Data Sandra rce(s) Supporting Document(s) Hemoglobin A1c/Hemoglobin.total in Blood 11.4 % Above high normal [facility]ba1C [place] ([facility]) ID Date Data Source [id number] 09/28/2020 12:00:00 AM EST [facility] ([facility]) Name Value Range Interpretation Code Description Data Sandra rce(s) Supporting Document(s) Hemoglobin A1c/Hemoglobin.total in Blood 11.4 % Above high normal Hba1C [place] ([facility]) Procedure Social History Code Duration Value Status Description Data Source(s ) Smoking 06/28/2021 12:00:00 AM EDT Unknown if ever smoked comp leted Unknown if ever smoked [facility] ([facility]) Smoking 06/07/2021 12:00:00 AM EDT Unknown if ever smoked comp leted Unknown if ever smoked [facility] ([facility]) Vital Signs ID Date Data Source UNK Name Value Range Interpretation Code Description Data Source(s) Diastolic blood pressure 87 mm[Hg] 87 mm[Hg] V[facility]ESSA ([facility]) Body height 68 [in_i] 68 [in_i] [facility] ([facility]) Body mass index (BMI) [Ratio] 24.3 kg/m2 24.3 k g/m2 [facility] ([facility]) Systolic blood pressure 127 mm[Hg] 127 mm[Hg] A THENA ([facility]) Body weight 2560 [oz_av] 2560 [oz_av] [facility] ([facility]) Body height 68 [in_i] 68 [in_i] [facility] ([facility]) Body height 68 [in_i] 68 [in_i] [facility] ([facility]) Body height 68 [in_i] 68 [in_i] [facility] ([facility]) Diastolic blood pressure 81 mm[Hg] 81 mm[Hg] [facility] ([facility]) Systolic blood pressure 145 mm[Hg] 145 mm[Hg] A THENA ([facility]) Diastolic blood pressure 81 mm[Hg] 81 mm[Hg] [facility] ([facility]) Body height 68 [in_i] 68 [in_i] [facility] ([facility]) Systolic blood pressure 145 mm[Hg] 145 mm[Hg] A THENA ([facility]) Diastolic blood pressure 81 mm[Hg] 81 mm[Hg] [facility] ([facility]) Body height 68 [in_i] 68 [in_i] [facility] ([facility]) Systolic blood pressure 145 mm[Hg] 145 mm[Hg] A THEN ([facility]) Body weight Measured 167.00 lbs Normal (applies to n on-numeric results) 167.00 [facility] Body height 68 [in_i] 68 [in_i] [facility] ([facility]) Body height 68 [in_i] 68 [in_i] [facility] ([facility]) Body height 68 [in_i] 68 [in_i] [facility] ([facility]) Body height 68 [in_i] 68 [in_i] [facility] ([facility]) Body temperature 98.5 [degF] 98.5 [degF] MED[facility] ([facility]) Diastolic blood pressure 79 mm[Hg] 79 mm[Hg] [facility] ([facility]) Body height 68 [in_i] 68 [in_i] [facility] ([facility]) Body mass index (BMI) [Ratio] 25.8 kg/m2 25.8 k g/m2 [facility] ([facility]) Systolic blood pressure 120 mm[Hg] 120 mm[Hg] A THE[place] ([facility]) Body weight 2720 [oz_av] 2720 [oz_av] [facility] ([facility]) Systolic blood pressure 120 mm[Hg] 120 mm[Hg] A THENA ([facility]) Diastolic blood pressure 79 mm[Hg] 79 mm[Hg] [facility] ([facility]) Body height 68 [in_i] 68 [in_i] [facility] ([facility]) Body mass index (BMI) [Ratio] 25.8 kg/m2 25.8 k g/m2 [facility] ([facility]) Body weight 2720 [oz_av] 2720 [oz_av] [facility] ([facility]) Systolic blood pressure 120 mm[Hg] 120 mm[Hg] [facility] Diastolic blood pressure 79 mm[Hg] 79 mm[Hg] [facility] ([facility]) Body height 68 [in_i] 68 [in_i] [facility] ([facility]) Body mass index (BMI) [Ratio] 25.8 kg/m2 25.8 k g/m2 [facility] ([facility]) Body weight 2720 [oz_av] 2720 [oz_av] [facility] ([facility]) Diastolic blood pressure 79 mm[Hg] 79 mm[Hg] [facility] ([facility]) Body height 68 [in_i] 68 [in_i] [facility] ([facility]) Body mass index (BMI) [Ratio] 25.8 kg/m2 25.8 k g/m2 [facility] ([facility]) Systolic blood pressure 120 mm[Hg] 120 mm[Hg] A THE[place] ([facility]) Body weight 2720 [oz_av] 2720 [oz_av] [facility] ([facility]) Diastolic blood pressure 79 mm[Hg] 79 mm[Hg] [facility] ([facility]) Body height 68 [in_i] 68 [in_i] [facility] ([facility]) Body mass index (BMI) [Ratio] 25.8 kg/m2 25.8 k g/m2 [facility] ([facility]) Systolic blood pressure 120 mm[Hg] 120 mm[Hg] A THE[place] ([facility]) Body weight 2720 [oz_av] 2720 [oz_av] [facility] ([facility]) Body weight 160.00 [lb_av] 160.00 [lb_av] MEDEN T ([facility] Systolic blood pressure 124 mm[Hg] 124 mm[Hg] M EDENT ([facility] Diastolic blood pressure 76 mm[Hg] 76 mm[Hg] MED[facility] ([facility] Heart rate 71 /min 71 /min [facility] ([facility] Body mass index (BMI) [Ratio] 24.3 kg/m2 24.3 k g/m2 [facility] ([facility] Body height 68 [in_i] 68 [in_i] MED[facility] ([facility] 5'8" Body temperature 97.3 [degF] 97.3 [degF] MEDENT ([facility]) Diastolic blood pressure 87 mm[Hg] 87 mm[Hg] [facility] ([facility]) Body height 68 [in_i] 68 [in_i] [facility] ([facility]) Body mass index (BMI) [Ratio] 25.8 kg/m2 25.8 k g/m2 [facility] ([facility]) Systolic blood pressure 132 mm[Hg] 132 mm[Hg] A THE[place] ([facility]) Body weight 2720 [oz_av] 2720 [oz_av] [facility] ([facility]) Diastolic blood pressure 87 mm[Hg] 87 mm[Hg] [facility] ([facility]) Body height 68 [in_i] 68 [in_i] [facility] ([facility]) Body mass index (BMI) [Ratio] 25.8 kg/m2 25.8 k g/m2 [facility] ([facility]) Systolic blood pressure 132 mm[Hg] 132 mm[Hg] A THE[place] ([facility]) Body weight 2720 [oz_av] 2720 [oz_av] [facility] ([facility]) Diastolic blood pressure 87 mm[Hg] 87 mm[Hg] [facility] ([facility]) Body height 68 [in_i] 68 [in_i] [facility] ([facility]) Body mass index (BMI) [Ratio] 25.8 kg/m2 25.8 k g/m2 [facility] ([facility]) Systolic blood pressure 132 mm[Hg] 132 mm[Hg] A [facility] ([facility]) Body weight 2720 [oz_av] 2720 [oz_av] [facility] ([facility]) Diastolic blood pressure 87 mm[Hg] 87 mm[Hg] [facility] ([facility]) Body height 68 [in_i] 68 [in_i] [facility] ([facility]) Body mass index (BMI) [Ratio] 25.8 kg/m2 25.8 k g/m2 [facility] ([facility]) Systolic blood pressure 132 mm[Hg] 132 mm[Hg] A [facility] ([facility]) Body weight 2720 [oz_av] 2720 [oz_av] [facility] ([facility]) Diastolic blood pressure 87 mm[Hg] 87 mm[Hg] [facility] ([facility]) Body height 68 [in_i] 68 [in_i] [facility] ([facility]) Body mass index (BMI) [Ratio] 25.8 kg/m2 25.8 k g/m2 [facility] ([facility]) Systolic blood pressure 132 mm[Hg] 132 mm[Hg] A [place] ([facility]) Body weight 2720 [oz_av] 2720 [oz_av] [facility] ([facility]) Diastolic blood pressure 87 mm[Hg] 87 mm[Hg] [facility] ([facility]) Body height 68 [in_i] 68 [in_i] [facility] ([facility]) Body mass index (BMI) [Ratio] 25.8 kg/m2 25.8 k g/m2 [facility] ([facility]) Systolic blood pressure 132 mm[Hg] 132 mm[Hg] A [facility] ([facility]) Body weight 2720 [oz_av] 2720 [oz_av] [facility] ([facility]) Body height 68 [in_i] 68 [in_i] [facility] ([facility]) Body height 68 [in_i] 68 [in_i] [facility] ([facility]) Body height 68 [in_i] 68 [in_i] [facility] ([facility]) Body height 68 [in_i] 68 [in_i] [facility] ([facility]) Body height 68 [in_i] 68 [in_i] [facility] ([facility]) Body height 68 [in_i] 68 [in_i] [facility] ([facility]) Body height 68 [in_i] 68 [in_i] [facility] ([facility]) Diastolic blood pressure 72 mm[Hg] 72 mm[Hg] [facility] ([facility]) Body height 68 [in_i] 68 [in_i] [facility] ([facility]) Body mass index (BMI) [Ratio] 26.2 kg/m2 26.2 k g/m2 [facility] ([facility]) Systolic blood pressure 124 mm[Hg] 124 mm[Hg] A [place] ([facility]) Body weight 2754 [oz_av] 2754 [oz_av] [facility] ([facility]) Diastolic blood pressure 72 mm[Hg] 72 mm[Hg] [facility] ([facility]) Body height 68 [in_i] 68 [in_i] [place] ([facility]) Body mass index (BMI) [Ratio] 26.2 kg/m2 26.2 k g/m2 [facility] ([facility]) Systolic blood pressure 124 mm[Hg] 124 mm[Hg] A [place] ([facility]) Body weight 2754 [oz_av] 2754 [oz_av] [facility] ([facility]) Diastolic blood pressure 72 mm[Hg] 72 mm[Hg] [facility] ([facility]) Body height 68 [in_i] 68 [in_i] [facility] ([facility]) Body mass index (BMI) [Ratio] 26.2 kg/m2 26.2 k g/m2 [facility] ([facility]) Systolic blood pressure 124 mm[Hg] 124 mm[Hg] A [place] ([facility]) Body weight 2754 [oz_av] 2754 [oz_av] [facility] ([facility]) Diastolic blood pressure 72 mm[Hg] 72 mm[Hg] [facility] ([facility]) Body height 68 [in_i] 68 [in_i] [facility] ([facility]) Body mass index (BMI) [Ratio] 26.2 kg/m2 26.2 k g/m2 [facility] ([facility]) Systolic blood pressure 124 mm[Hg] 124 mm[Hg] A [place] ([facility]) Body weight 2754 [oz_av] 2754 [oz_av] [facility] ([facility]) Diastolic blood pressure 72 mm[Hg] 72 mm[Hg] [facility] ([facility]) Body height 68 [in_i] 68 [in_i] [facility] ([facility]) Body mass index (BMI) [Ratio] 26.2 kg/m2 26.2 k g/m2 [facility] ([facility]) Systolic blood pressure 124 mm[Hg] 124 mm[Hg] A [place] ([facility]) Body weight 2754 [oz_av] 2754 [oz_av] [facility] ([facility]) Body weight 2754 [oz_av] 2754 [oz_av] [facility] ([facility]) Diastolic blood pressure 72 mm[Hg] 72 mm[Hg] [facility] ([facility]) Body height 68 [in_i] 68 [in_i] [facility] ([facility]) Body mass index (BMI) [Ratio] 26.2 kg/m2 26.2 k g/m2 [facility] ([facility]) Systolic blood pressure 124 mm[Hg] 124 mm[Hg] A [place] ([facility]) Diastolic blood pressure 72 mm[Hg] 72 mm[Hg] [facility] ([facility]) Body height 68 [in_i] 68 [in_i] [facility] ([facility]) Body mass index (BMI) [Ratio] 26.2 kg/m2 26.2 k g/m2 [facility] ([facility]) Systolic blood pressure 124 mm[Hg] 124 mm[Hg] A [place] ([facility]) Body weight 2754 [oz_av] 2754 [oz_av] [facility] ([facility]) Diastolic blood pressure 72 mm[Hg] 72 mm[Hg] [facility] ([facility]) Body height 68 [in_i] 68 [in_i] [facility] ([facility]) Body mass index (BMI) [Ratio] 26.2 kg/m2 26.2 k g/m2 [facility] ([facility]) Systolic blood pressure 124 mm[Hg] 124 mm[Hg] A [place] ([facility]) Body weight 2754 [oz_av] 2754 [oz_av] [facility] ([facility]) Diastolic blood pressure 72 mm[Hg] 72 mm[Hg] [facility] ([facility]) Body height 68 [in_i] 68 [in_i] [facility] ([facility]) Body mass index (BMI) [Ratio] 26.2 kg/m2 26.2 k g/m2 [facility] ([facility]) Systolic blood pressure 124 mm[Hg] 124 mm[Hg] A [place] ([facility]) Body weight 2754 [oz_av] 2754 [oz_av] [facility] ([facility]) Diastolic blood pressure 82 mm[Hg] 82 mm[Hg] [facility] ([facility]) Body height 68 [in_i] 68 [in_i] [facility] ([facility]) Body mass index (BMI) [Ratio] 25.8 kg/m2 25.8 k g/m2 [facility] ([facility]) Systolic blood pressure 130 mm[Hg] 130 mm[Hg] A [place] ([facility]) Body weight 2710 [oz_av] 2710 [oz_av] [facility] ([facility]) Diastolic blood pressure 82 mm[Hg] 82 mm[Hg] [facility] ([facility]) Body height 68 [in_i] 68 [in_i] [facility] ([facility]) Body mass index (BMI) [Ratio] 25.8 kg/m2 25.8 k g/m2 [facility] ([facility]) Systolic blood pressure 130 mm[Hg] 130 mm[Hg] [facility] Diastolic blood pressure 82 mm[Hg] 82 mm[Hg] [place] ([facility]) Body height 68 [in_i] 68 [in_i] [facility] ([facility]) Body mass index (BMI) [Ratio] 25.8 kg/m2 25.8 k g/m2 [facility] ([facility]) Systolic blood pressure 130 mm[Hg] 130 mm[Hg] [facility] Body weight 2710 [oz_av] 2710 [oz_av] [facility] ([facility]) Body weight 2710 [oz_av] 2710 [oz_av] [facility] ([facility]) Diastolic blood pressure 82 mm[Hg] 82 mm[Hg] [facility] ([facility]) Body height 68 [in_i] 68 [in_i] [facility] ([facility]) Body mass index (BMI) [Ratio] 25.8 kg/m2 25.8 k g/m2 [facility] ([facility]) Systolic blood pressure 130 mm[Hg] 130 mm[Hg] A [place] ([facility]) Body weight 2710 [oz_av] 2710 [oz_av] [facility] ([facility]) Diastolic blood pressure 82 mm[Hg] 82 mm[Hg] [facility] ([facility]) Body height 68 [in_i] 68 [in_i] [facility] ([facility]) Body mass index (BMI) [Ratio] 25.8 kg/m2 25.8 k g/m2 [facility] ([facility]) Systolic blood pressure 130 mm[Hg] 130 mm[Hg] [facility] Body weight 2710 [oz_av] 2710 [oz_av] [facility] ([facility]) Diastolic blood pressure 82 mm[Hg] 82 mm[Hg] [facility] ([facility]) Body height 68 [in_i] 68 [in_i] [facility] ([facility]) Body mass index (BMI) [Ratio] 25.8 kg/m2 25.8 k g/m2 [facility] ([facility]) Systolic blood pressure 130 mm[Hg] 130 mm[Hg] A [place] ([facility]) Body weight 2710 [oz_av] 2710 [oz_av] [facility] ([facility]) Diastolic blood pressure 82 mm[Hg] 82 mm[Hg] [facility] ([facility]) Body height 68 [in_i] 68 [in_i] [facility]ES[facility] ([facility]) Body mass index (BMI) [Ratio] 25.8 kg/m2 25.8 k g/m2 [facility] ([facility]) Systolic blood pressure 130 mm[Hg] 130 mm[Hg] A [place] ([facility]) Body weight 2710 [oz_av] 2710 [oz_av] [facility] ([facility]) Diastolic blood pressure 82 mm[Hg] 82 mm[Hg] [facility] ([facility]) Body height 68 [in_i] 68 [in_i] [facility] ([facility]) Body mass index (BMI) [Ratio] 25.8 kg/m2 25.8 k g/m2 [facility] ([facility]) Systolic blood pressure 130 mm[Hg] 130 mm[Hg] A [place] ([facility]) Body weight 2710 [oz_av] 2710 [oz_av] [facility] ([facility]) Diastolic blood pressure 82 mm[Hg] 82 mm[Hg] [facility] ([facility]) Body height 68 [in_i] 68 [in_i] [facility] ([facility]) Body mass index (BMI) [Ratio] 25.8 kg/m2 25.8 k g/m2 [facility] ([facility]) Systolic blood pressure 130 mm[Hg] 130 mm[Hg] A [place] ([facility]) Body weight 2710 [oz_av] 2710 [oz_av] [facility] ([facility]) Diastolic blood pressure 82 mm[Hg] 82 mm[Hg] [facility] ([facility]) Body height 68 [in_i] 68 [in_i] [facility] ([facility]) Body mass index (BMI) [Ratio] 25.8 kg/m2 25.8 k g/m2 [facility] ([facility]) Systolic blood pressure 130 mm[Hg] 130 mm[Hg] Reema IBARRA ([facility]) Body weight 2710 [oz_av] 2710 [oz_av] [facility] ([facility]) Patient Treatment Plan of Care Planned Activity Planned Date Details Description Data Source (s) 0.5 ML dulaglutide 1.5 MG/ML Auto-Injector [Trulicity] [facility] ([facility]) 1.5 ML Insulin Glargine 300 UNT/ML Pen Injector [Toujeo] [facility] ([facility]) Suprep Bowel Prep Kit 17.5 gram-3.13 gram-1.6 gram ora l solution MX AND DRK UTD V[facility] ([facility]) Naproxen 500 MG Oral Tablet [facility] ([facility]) sitagliptin 50 MG Oral Tablet [Januvia] [facility] ([facility]) sitagliptin 25 MG [facility] Insulin Lispro 100 UNT/ML Pen Injector [facility]Humalog] [facility] gabapentin 300 MG Oral Capsule [facility] ([facility]) Cyclobenzaprine hydrochloride 5 MG Oral Tablet [facility] Cephalexin 500 MG [facility]ule [facility] atorvastatin 20 MG Oral Tablet [place] ([facility]) atorvastatin 10 MG Oral Tablet [place] ([facility]) Acyclovir 200 MG [facility] 0.5 ML dulaglutide 1.5 MG/ML Auto-Injector [Trulicity] [facility] ([facility]) 1.5 ML Insulin Glargine 300 UNT/ML Pen Injector [Toujeo] [facility] ([facility]) Suprep Bowel Prep Kit 17.5 gram-3.13 gram-1.6 gram ora l solution MX AND DRK UTD [facility] ([facility]) Naproxen 500 MG Oral Tablet [facility] ([facility]) sitagliptin 25 MG Oral Tablet [facility]uvia] [facility] 3 ML Insulin Lispro 100 UNT/ML Pen Injector [Humalog] [facility] ([facility]) gabapentin 300 MG Oral Capsule [facility] ([facility]) Cyclobenzaprine hydrochloride 5 MG Oral Tablet [facility] ([facility]) atorvastatin 20 MG Oral Tablet [facility] ([facility]) 0.5 ML dulaglutide 1.5 MG/ML Auto-Injector [Trulicity] [facility] ([facility]) 1.5 ML Insulin Glargine 300 UNT/ML Pen Injector [Toujeo] [facility] ([facility]) Suprep Bowel Prep Kit 17.5 gram-3.13 gram-1.6 gram ora l solution MX AND DRK UTD [facility] ([facility]) Naproxen 500 MG Oral Tablet [facility] ([facility]) sitagliptin 25 MG Oral Tablet [Januvia] [facility] ([facility]) 3 ML Insulin Lispro 100 UNT/ML Pen Injector [Humalog] AVNESSA ([facility]) gabapentin 300 MG Oral Capsule [facility] ([facility]) Cyclobenzaprine hydrochloride 5 MG Oral Tablet [facility] ([facility]) atorvastatin 20 MG Oral Tablet [facility] ([facility]) 0.5 ML dulaglutide 1.5 MG/ML Auto-Injector [Trulicity] [facility] ([facility]) 1.5 ML Insulin Glargine 300 UNT/ML Pen Injector [Toujeo] [facility] ([facility]) Suprep Bowel Prep Kit 17.5 gram-3.13 gram-1.6 gram ora l solution MX AND DRK UTD [facility] ([facility]) Naproxen 500 MG Oral Tablet [facility] ([facility]) sitagliptin 25 MG Oral Tablet [Januvia] [facility] ([facility]) 3 ML Insulin Lispro 100 UNT/ML Pen Injector [Humalog] [facility] ([facility]) gabapentin 300 MG Oral Capsule [facility] ([facility]) Cyclobenzaprine hydrochloride 5 MG Oral Tablet [facility] ([facility]) atorvastatin 20 MG Oral Tablet [facility] ([facility]) 0.5 ML dulaglutide 1.5 MG/ML Auto-Injector [Trulicity] [facility] ([facility]) 1.5 ML Insulin Glargine 300 UNT/ML Pen Injector [Toujeo] [facility] ([facility]) Suprep Bowel Prep Kit 17.5 gram-3.13 gram-1.6 gram ora l solution MX AND DRK UTD [facility] ([facility]) Naproxen 500 MG Oral Tablet [facility] ([facility]) sitagliptin 25 MG Oral Tablet [Januvia] [facility] ([facility]) 3 ML Insulin Lispro 100 UNT/ML Pen Injector [Humalog] [facility] ([facility]) gabapentin 300 MG Oral Capsule [facility] ([facility]) Cyclobenzaprine hydrochloride 5 MG Oral Tablet [facility] ([facility]) atorvastatin 20 MG Oral Tablet [facility] ([facility]) 0.5 ML dulaglutide 1.5 MG/ML Auto-Injector [Trulicity] [facility] ([facility]) 1.5 ML Insulin Glargine 300 UNT/ML Pen Injector [Toujeo] [facility] ([facility]) Suprep Bowel Prep Kit 17.5 gram-3.13 gram-1.6 gram ora l solution MX AND DRK UTD [facility] ([facility]) Naproxen 500 MG Oral Tablet [facility] ([facility]) sitagliptin 25 MG Oral Tablet [Januvia] [facility] ([facility]) 3 ML Insulin Lispro 100 UNT/ML Pen Injector [Humalog] [facility] ([facility]) gabapentin 300 MG Oral Capsule [facility] ([facility]) Cyclobenzaprine hydrochloride 5 MG Oral Tablet [facility] ([facility]) atorvastatin 20 MG Oral Tablet [facility] ([facility]) 0.5 ML dulaglutide 1.5 MG/ML Auto-Injector [Trulicity] [facility] ([facility]) 1.5 ML Insulin Glargine 300 UNT/ML Pen Injector [Toujeo] [facility] ([facility]) Suprep Bowel Prep Kit 17.5 gram-3.13 gram-1.6 gram ora l solution MX AND DRK UTD [facility] ([facility]) OneTouch Verio test strips U UTD TO TEST TID [facility] ([facility]) Naproxen 500 MG Oral Tablet [facility] ([facility]) sitagliptin 25 MG Oral Tablet [Januvia] [facility] ([facility]) 3 ML Insulin Lispro 100 UNT/ML Pen Injector [Humalog] [facility] ([facility]) gabapentin 300 MG Oral Capsule [facility] ([facility]) Cyclobenzaprine hydrochloride 5 MG Oral Tablet [facility] ([facility]) atorvastatin 20 MG Oral Tablet [facility] ([facility]) 0.5 ML dulaglutide 1.5 MG/ML Auto-Injector [Trulicity] [facility] ([facility]) 1.5 ML Insulin Glargine 300 UNT/ML Pen Injector [Toujeo] [facility] ([facility]) Suprep Bowel Prep Kit 17.5 gram-3.13 gram-1.6 gram ora l solution MX AND DRK UTD [place] ([facility]) OneTouch Verio test strips U UTD TO TEST TID [facility] ([facility]) Naproxen 500 MG Oral Tablet [facility] ([facility]) sitagliptin 25 MG Oral Tablet [Januvia] [facility] ([facility]) 3 ML Insulin Lispro 100 UNT/ML Pen Injector [Humalog] [facility] ([facility]) gabapentin 300 MG Oral Capsule [facility] ([facility]) Cyclobenzaprine hydrochloride 5 MG Oral Tablet [facility] ([facility]) atorvastatin 20 MG Oral Tablet [facility] ([facility]) 0.5 ML dulaglutide 1.5 MG/ML Auto-Injector [Trulicity] [facility] ([facility]) 1.5 ML Insulin Glargine 300 UNT/ML Pen Injector [Toujeo] [facility] ([facility]) Suprep Bowel Prep Kit 17.5 gram-3.13 gram-1.6 gram ora l solution MX AND DRK UTD [place] ([facility]) OneTouch Verio test strips U UTD TO TEST TID [facility] ([facility]) Naproxen 500 MG Oral Tablet [facility] ([facility]) sitagliptin 25 MG Oral Tablet [Januvia] [facility] ([facility]) 3 ML Insulin Lispro 100 UNT/ML Pen Injector [Humalog] [facility] ([facility]) gabapentin 300 MG Oral Capsule [facility] ([facility]) Cyclobenzaprine hydrochloride 5 MG Oral Tablet V[facility]ES[facility] ([facility]) atorvastatin 20 MG Oral Tablet [facility] ([facility]) 0.5 ML dulaglutide 1.5 MG/ML Auto-Injector [Trulicity] [place] ([facility]) 1.5 ML Insulin Glargine 300 UNT/ML Pen Injector [Toujeo] [place] ([facility]) Suprep Bowel Prep Kit 17.5 gram-3.13 gram-1.6 gram ora l solution MX AND DRK UTD [place] ([facility]) OneTouch Verio test strips U UTD TO TEST TID [facility] ([facility]) Naproxen 500 MG Oral Tablet V[facility]ES[facility] ([facility]) 3 ML Insulin Lispro 100 UNT/ML Pen Injector [Humalog] VANESSA ([facility]) Cyclobenzaprine hydrochloride 5 MG Oral Tablet VANESSA ([facility]) atorvastatin 20 MG Oral Tablet VANESSA ([facility])
[2021-09-02] MEDS ORDERED: NS 1,000 ML IV ONE ×2 (06:25→09:20)
[2021-09-02 07:14] LABS: BASO % 0.3 % (0.0-1.0); EOS # 0.1 10^3/uL (0.0-0.5); EOS % 0.9 % (0.0-3.0); HEMATOCRIT 49.2 % (42.0-52.0); HEMOGLOBIN 17.2 g/dl (13.5-17.5); LYMPH # 1.7 10^3/uL (1.5-5.0); LYMPH % 15.1 % (24.0-44.0); MEAN CORPUSCULAR HEMOGLOBIN 31.3 pg (27.0-33.0); MEAN CORPUSCULAR VOLUME 89.6 fl (80.0-96.0); MONO # 0.9 10^3/uL (0.0-0.8); MONO % 7.8 % (2.0-8.0); NEUTROPHILS # 8.2 10^3/uL (1.5-8.5); NEUTROPHILS % 75.4 % (36.0-66.0); PLATELET COUNT, AUTOMATED 177 10^3/uL (150-450); RED BLOOD COUNT 5.49 10^6/uL (4.30-6.10); WHITE BLOOD COUNT 10.9 10^3/uL (4.0-10.0)
[2021-09-02 07:44] LABS: BLOOD UREA NITROGEN 21 MG/DL (7-18); CALCIUM LEVEL 9.1 MG/DL (8.5-10.1); CARBON DIOXIDE LEVEL 30 MEQ/L (21-32); CHLORIDE LEVEL 104 MEQ/L (98-107); CREATININE FOR GFR 1.31 MG/DL (0.70-1.30); GLOMERULAR FILTRATION RATE > 60.0 (>56); GLUCOSE, FASTING 300 MG/DL (70-100); POTASSIUM SERUM 3.7 MEQ/L (3.5-5.1); SODIUM LEVEL 139 MEQ/L (136-145)
[2021-09-02] MEDS ORDERED: HumuLIN R (REGULAR) INSULIN (NovoLIN R) **100U/ML** PER UNIT IV ONE (09:25)
--- NOTE | 2021-09-02 09:29 | REP ---
INDICATION: bladder pain, hematuria, garcia present COMPARISON: None TECHNIQUE: Real time B-mode ultrasound examination using curved array transducer. FINDINGS: Bladder wall thickening to approximately 13 mm is appreciated. Bilateral ureteral jets are identified and a Garcia catheter is in satisfactory position. The prostate gland is heterogeneous and enlarged measuring 6.5 x 6.2 x 6.8 cm (145 cc). Prevoid bladder measures 10.5 x 10.2 x 7.1 cm (497 cc). Postvoid bladder measures 6.6 x 5.0 x 3.6 cm (78 cc). Postvoid residual: 16% IMPRESSION: 1. Bladder wall thickening and enlarged heterogeneous prostate gland suggesting chronic outlet obstruction. 2. Garcia catheter in satisfactory position. 3. Postvoid residual elevated at 16%. <Electronically signed by Jonah Lopez > 09/02/21 [id number]
[2021-09-02 11:01] VITALS: BP 151/82
== END 2021-09-02 11:33 | disposition home or self-care (01) ==
LOC: M ED 03:49
DX: N40.0 Benign prostatic hyperplasia without lower urinary tract symptoms (principal); R31.0 Gross hematuria; R33.9 Retention of urine, unspecified; E11.9 Type 2 diabetes mellitus without complications; F31.9 Bipolar disorder, unspecified; F43.10 Post-traumatic stress disorder, unspecified; Z79.899 Other long term (current) drug therapy; Z79.84 Long term (current) use of oral hypoglycemic drugs; Z79.82 Long term (current) use of aspirin

== ENCOUNTER 2021-09-10 14:19 | Emergency (ER) | payer MEDICARE, MEDICAID ==
[~2021-09-10] VITALS: Ht 172.7 cm; Wt 72.8 kg
--- OUTSIDE RECORDS SUMMARY | 2021-09-10 14:33 | CCD | Continuity of Care Document ---
Author Author Grge YAN M.D. Organization Unknown Address [facility] [address] [place] [id number] Phone [phone] Care Team Prov[address] Care Road Patcher Name Role Phone [facility] AUTM [phone] Glory Fischer MD AUTM [phone] Casey Spaulding MD AUTM [phone] [facility] AUTM Eligio Sandhu AUTM [phone] [facility] Behavioral Health AUTM [phone] Ciara David AUTM [phone] Chris Jamil AUTM [phone] Vicki Galindo M.D. AUTM [phone] Problems Active Problems Provider Date Type 2 diabetes mellitus Glory Fischer MD Onset: 2017 Hyperlipidemia Glory Fischer MD Onset: 07/25/2018 Dysphagia Glory Fischer MD Onset: 07/25/2018 Bilateral carpal tunnel syndrome Glory Fischer MD Onset : 07/25/2018 Secondary polycythemia Glory Fischer MD Onset: 07/25/20 18 Benign prostatic hypertrophy with outflow obstruction Glory hopkins MD Onset: 08/01/2018 Erectile dysfunction associated with type 2 diabetes m filomena Fischer MD Onset: 08/01/2018 Acquired trigger finger LEANNE Ji Onset: Neck pain Vicki Galindo M.D. Onset: 09/03/2018 Brachial neuritis Vicki Galindo M.D. Onset: 09/03/2018 Note: C5, C6, [id number] by NCS. Dr Deric Sandhu. Carpal tunnel syndrome of left wrist Vicki Galindo M.D. On set: 09/03/2018 Carpal tunnel syndrome of right wrist Vicki Galindo M.D. O nset: 09/03/2018 Stricture of esophagus Glory Fischer MD Onset: 09/20/20 18 Note: s/p dilatation Personality disorder [place] LCSW Onset: 05/29/2019 Chronic alcoholism in remission [place] LCSW Onset: 05/29/2019 Other reactions to severe stress [place] LCSW Onset: 05/29/2019 Impotence of organic origin LEANNE Ji Onset : 08/06/2019 Social History Type Date Description Comments Sex Unknown Tobacco Use Start: Unknown Never Smoked Cigarettes Tobacco Use Start: Unknown Never Smoked Cigars Tobacco Use Start: Unknown Never Smoked A Pipe Tobacco Use Start: Unknown Never Used Smokeless Tobacco ETOH Use Denies alcohol use Tobacco Use Start: Unknown Patient has never smoked Recreational Drug Use Denies Drug Use Allergies and adverse reactions Active Allergies Criticality Reaction | Severity Comments Date NKDA Unable to assess criticality 04/16/2018 NKFA Unable to assess criticality 04/17/2018 Seasonal Unable to assess criticality 04/17/2018 Medications Active Medications SIG Qnty Indications Ordering Provide r Date Tylenol 8 Hour Arthritis Pain 650mg Tablets ER take one tablet by mouth twice a day as needed (pain) Unknown Januvia 50mg Tablets Take 1 Tablet By Mouth Every Day Unknown Multivitamin Tablets take one tablet by mouth every morning Unknown Aspirin Adult Low Dose 81mg Tablet s DR 1 by mouth every day Unknown Immunizations CPT Code Status Date Vaccine Lot # [id number] Given 12/16/2019 Tdap (Boostrix/Adacel) Vacci ne [id number] Vital Signs Date Vital Result Comment 09/07/2021 8:36am BP Systolic 117 mmHg BP Diastolic 87 mmHg Heart Rate 100 /min O2 % BldC Oximetry 96 % Weight 160.00 lb Weight 72.576 kg Height 68 inches 5'8" BMI (Body Mass Index) 24.3 kg/m2 BSA (Body Surface Area) 1.86 m2 04/06/2021 3:14pm Body Temperature 98.5 F Results Test Acquired Date Facility Test Result H/L Range Note [facility]house [facility] 09/07/2021 In Office [facility] Color yellow Normal: Yellow [facility] Appearance clear Normal: Clear Spec [place] 1.010 1.001-1.030 [facility] PH Test Strip 5 5-9 Leukocytes - Normal: Negative [facility] Nitrate - Normal: Negative [facility] Protein trace Normal: Negative Inhouse Glucose 1000 High Normal: Negative [facility] Ketones - Noraml: Negative Urobilinogen - Normal: Negative [facility] Bilirubin - Normal: Negative Blood 250 High Noraml: Negative Procedures Date Code Description Status 04/06/2021 02685 Office/Outpatient Established Lo w MDM 20-29 Min Completed 03/11/2021 54821 Office/Outpatient New Low MDM 30 -44 Minutes Completed Medical Devices Description No Information Available Encounters Description No Information Available Assessments Date Code Description Provider 04/06/2021 M54.2 Cervicalgia Vicki Galindo M.D. 04/06/2021 M54.12 Radiculopathy, cervical region Dominique Galindo M.D. 03/11/2021 M54.2 Cervicalgia COURTNEY Cottrell Plan of Treatment No Information Available Functional Status Functional Condition Comment Date Status Glasses Active Mental Status Description No Information Available Referrals Refer to Reason for Referral Status Appt Date [facility] Weakness in left axillary nerve distribution. Please evaluate and treat. Also request EMG-NCT left upper extremity to include axillary, spinal accessaory and suprascapular nerves. Received Complete 03/28/2021 [address] [place] [address] [phone]
--- OUTSIDE RECORDS SUMMARY | 2021-09-10 14:33 | CCD ---
Author Organization Unknown Address [address] [place] [address] Phone [phone] Care Team Providers Care Carbide Tool Maker Name Role Phone Jana Wylie Unavailable Unavailable [...] 1 T PO BID P Completed 09/30/2020 ondansetron 4 mg disintegrating tablet DISSOLVE 1 TABLET BY MOUTH EVERY 6 TO 8 HOURS NEEDED FOR NAUSEA/VOMITING Active Not available OneTouch Verio test strips USE TO TEST [...] 4 % Final [facility]: [address] [place] [address] 04/25/2021 CMP, Serum or Plasma Blood venous High Glu cose, Fasting 382 mg/dL 70-100 mg/dL [facility] nter: 830 [facility] Blood venous High Blood Urea Nitrogen 20 mg/dL 7-18 mg/dL [facility]: 0 [facility] Blood venous Normal Creatinine for GFR 1.19 mg/dL 0.70-1.30 mg/dL [facility]: 0 [facility] Blood venous Normal Glomerular Filtration Rate > 60.0 >56 [facility]: 0 [facility] Blood venous Low Sodium Level 135 mEq/L 136-14 5 mEq/L [facility]: [address] [place] [address] Blood venous Normal Potassium Serum 4.5 mEq/L 3.5 -5.1 mEq/L [facility]: [address] [facility] Blood venous Normal Chloride Level 100 mEq/L 98-1 07 mEq/L [facility]: [address] [facility] Blood venous Normal Carbon Dioxide Level 27 mEq/L 21-32 mEq/L [facility]: 0 [facility] Blood venous Normal Anion Gap 8 mEq/L 8-16 mEq/L [facility]: [address] [facility] Blood venous Normal Calcium Level 9.3 mg/dL 8.5-1 0.1 mg/dL [facility]: [address] [facility] Blood venous Normal AST/SGOT 9 U/L 7-37 U/L [facility] l [facility]: [address] [facility] Blood venous Normal ALT/SGPT 26 U/L 12-78 U/L [facility]: [address] [place] [address] Blood venous Normal Alkaline Phosphatase 71 U/L 4 5-117 U/L [facility]: [address] [facility] Blood venous Normal Bilirubin,total 1.0 mg/dL 0.2 -1.0 mg/dL [facility]: [address] [place] [address] Blood venous Normal Total Protein 7.6 gm/dL 6.4-8 .2 gm/dL [facility]: [address] [place] [address] Blood venous Normal Albumin 3.9 gm/dL 3.2-5.2 gm/ dL [facility]: [address] [place] [address] Blood venous Normal Albumin/globulin Ratio 1.1 [facility]: 0 [facility] 04/07/2021 HbA1C (Hemoglobin a1C), Blood Normal Hemogl obin a1C 11.3 % [facility]: [address] [place] [address] High Estimated Average Glucose 278 mg/dL 60-110 mg/dL [facility]: [address] [place] [address] 04/07/2021 ESR (Erythrocyte Sedimentation Rate), Blood Nor mal Erythrocyte Sedimentation Rate 3 mm/HR 0-20 mm/HR [facility]: [address] [place] [address] 04/07/2021 Lupus Anticoagulant, Plasma Normal PTT Lupus Type Anticoag Screen 0.8 0-1.2 [facility]: [address] [place] [address] 04/07/2021 Protein Electrophoresis Panel, Serum or Plasma Normal Albumin % 60.8 % 55.8-66.1 % [facility]: [address] [place] [address] Normal Cgyjq-9-Rrtequrx % 3.4 % 2.9-4.9 % [facility]: [address] [place] [address] Normal Otlsy-5-Qaeykmeze % 10.3 % 7.1-11.8 % [facility]: [address] [place] [address] Normal Gqni-5-Gxqfmlwfu % 5.5 % 4.7-7.2 % [facility]: [address] [place] [address] Normal Ttar-7-Yucvjkjfg % 5.7 % 3.2-6.5 % [facility]: [address] [place] [address] Normal Gamma Globulin % 14.3 % 11.1-18.8 % [facility]: [address] [place] [address] Normal Albumin 4.44 gm/dL 3.29-5.55 gm/dL F inal [facility]: [address] [place] [address] Normal Vzbvk-6-Ldydcqzbc 0.25 gm/dL 0.17-0. 41 gm/dL [facility]: [address] [place] [address] Normal Zqflo-4-Ovgxnvbhf 0.75 gm/dL 0.42-0. 99 gm/dL [facility]: [address] [place] [address] Normal Sgyv-2-Nkkxejfjq 0.40 gm/dL 0.28-0.6 0 gm/dL [facility]: [address] [place] [address] Normal Asyb-8-Punwcpocv 0.42 gm/dL 0.19-0.5 5 gm/dL [facility]: [address] [place] [address] Normal Gamma Globulins 1.04 gm/dL 0.65-1.58 gm/dL [facility]: [address] [place] [address] Normal Total Protein 7.3 gm/dL 6.4-8.2 gm/d L [facility]: [address] [facility] Normal Spep Interpretation see comment [facility]: [address] [facility] Normal Spep Pathologist Review rev'd by Anna foss [facility]: [address] [facility] 04/07/2021 Vitamin B12 + Folate, Serum or Blood Normal Vitamin B12 Level 493 pg/mL [facility] nter: [address] [facility] Normal Folate 17.7 NG/mL [facility]: [address] [facility] 04/07/2021 Rf (Rheumatoid Factor), Serum Normal Rheumatoid Factor Quant < 10.0 IU/mL <15.0 IU/mL [facility] nter: 8[address] [facility] 04/07/2021 Vitamin E Low Vitamin E(alpha Tocopherol ) 6.2 mg/L 7.0-25.1 mg/L [facility]: 83 0 [facility] Normal Vitamin E(gamma Tocopherol) 0.7 mg/L 0.5-5.5 mg/L [facility]: [address] [facility] 04/07/2021 Vitamin B1 (Thiamine), Blood Normal Vitamin B1 Level Whole Blood 134.8 nmol/L 66.5-200.0 nmol/L [facility]: [address] [facility] 04/07/2021 Vitamin B6 (Pyridoxine), Plasma Normal Vitamin B6,Pyridoxal Phosphate 13.4 ug/L 5.3-46.7 ug/L [facility]: [address] [facility] 04/07/2021 WILLIAM (Antinuclear Antibodies) Screen, Serum Nor mal Antinuclear Antibodies Direct negative negative [facility] Center: [address] [facility] 03/10/2021 Hemoglobin a1C, Fingerstick ABNORMAL Hba1C 13. 2 % Final [facility]: 238 [facility] 03/09/2021 CBC W/ Auto Diff Blood venous Normal White Blood C ount 6.3 10 4.0-10.0 10 [facility]: 83 0 [facility] Blood venous Normal Red Blood Count 5.76 10 4.30- 6.10 10 [facility]: [address] [place] [address] Blood venous High Hemoglobin 18.4 g/dL 13.5-17. 5 g/dL [facility]: [address] [place] [address] Blood venous Normal Hematocrit 51.9 % 42.0-52.0 % [facility]: [address] [place] [address] Blood venous Normal Mean Corpuscular Volume 90.1 fL 80.0-96.0 fL [facility]: [address] [place] [address] venous Normal Mean Corpuscular Hemoglob in 31.9 pg 27.0-33.0 pg [facility]: [address] [place] [address] Blood venous Normal Mean Corpuscular HGB Conc 35.5 g/dL 32.0-36.5 g/dL [facility]: [address] [place] [address] Blood venous Normal Red Cell Distribution Wid th 12.7 % 11.5-14.5 % [facility]: [address] [place] [address] Blood venous Normal Platelet Count, Automated 171 10 150-450 10 [facility]: [address] [place] [address] Blood venous Normal Neutrophils % 59.4 % 36.0-66. 0 % [facility]: [address] [place] [address] Blood venous Normal Lymph % 28.3 % 24.0-44.0 % [facility]: [address] [place] [address] Blood venous High [place] % 9.4 % 2.0-8.0 % [facility]: [address] [place] [address] Blood venous Normal Eos % 1.8 % 0.0-3.0 % [facility]: [address] [place] [address] Blood venous Normal Baso % 0.5 % 0.0-1.0 % [facility]: [address] [place] [address] Blood venous Normal Immature Granulocyte % 0.6 % 0-3.0 % [facility]: [address] [place] [address] Blood venous Normal Nucleated Red Blood Cell % 0. 0 % 0-0 % [facility]: [address] [place] [address] Blood venous Normal Neutrophils # 3.7 10 1.5-8.5 10 [facility]: [address] [place] [address] Blood venous Normal Lymph # 1.8 10 1.5-5.0 10 [facility]: [address] [place] [address] Blood venous Normal [place] # 0.6 10 0.0-0.8 10 [facility]: [address] [place] [address] Blood venous Normal Eos # 0.1 10 0.0-0.5 10 [facility]: [address] [place] [address] Blood venous Normal Baso # 0.0 10 0.0-0.2 10 [facility]: [address] [place] [address] 03/09/2021 CMP, Serum or Plasma Blood venous High Glu cose, Fasting 326 mg/dL 70-100 mg/dL [facility] nter: [address] [place] [address] Blood venous Normal Blood Urea Nitrogen 15 mg/dL 7-18 mg/dL [facility]: [address] [place] [address] Blood venous Normal Creatinine for GFR 1.04 mg/dL 0.70-1.30 mg/dL [facility]: [address] [place] [address] Blood venous Normal Glomerular Filtration Rate > 60.0 >56 [facility]: [address] [place] [address] Blood venous Normal Sodium Level 137 mEq/L 136-14 5 mEq/L [facility]: [address] [place] [address] Blood venous Normal Potassium Serum 4.3 mEq/L 3.5 -5.1 mEq/L [facility]: [address] [place] [address] Blood venous Normal Chloride Level 102 mEq/L 98-1 07 mEq/L [facility]: [address] [place] [address] Blood venous Normal Carbon Dioxide Level 31 mEq/L 21-32 mEq/L [facility]: [address] [place] [address] Blood venous Low Anion Gap 4 mEq/L 8-16 mEq/L [facility]: [address] [place] [address] Blood venous Normal Calcium Level 9.3 mg/dL 8.5-1 0.1 mg/dL [facility]: [address] [facility] Blood venous Normal AST/SGOT 11 U/L 7-37 U/L [facility]: [address] [facility] Blood venous Normal ALT/SGPT 29 U/L 12-78 U/L [facility]: [address] [facility] Blood venous Normal Alkaline Phosphatase 74 U/L 4 5-117 U/L [facility]: [address] [place] [address] Blood venous High Bilirubin,total 1.1 mg/dL 0.2 -1.0 mg/dL [facility]: [address] [place] [address] Blood venous Normal Total Protein 7.9 gm/dL 6.4-8 .2 gm/dL [facility]: [address] [place] [address] Blood venous Normal Albumin 4.2 gm/dL 3.2-5.2 gm/ dL [facility]: [address] [place] [address] Blood venous Normal Albumin/globulin Ratio 1.1 [facility]: [address] [place] [address] 03/09/2021 Lipid Panel, Blood Blood venous High Trigl ycerides Level 176 mg/dL <150 mg/dL [facility] nter: [address] [place] [address] Blood venous Normal Cholesterol Level 145 mg/dL < 200 mg/dL [facility]: [address] [place] [address] Blood venous Normal HDL Cholesterol 47 mg/dL >40 mg/dL [facility]: [address] [place] [address] Blood venous Normal LDL Cholesterol 63 mg/dL <100 mg/dL [facility]: [address] [place] [address] Blood venous Normal Non-hdl-c 98 mg/dL [facility]: [address] [place] [address] Blood venous Normal Cholesterol Risk Ratio 3.085 <5 [facility]: [address] [place] [address] 03/09/2021 Microalbumin, Urine Urine Normal Creatinine, Urin e 52.7 mg/dL [facility]: [address] [facility] Urine Normal Malb Urine Siemens 35.3 mg/L Final [facility]: [address] [facility] Urine High Jesse/creat Ratio 66.9 mcg/mg 0.0-30.0 mcg/mg Final [facility]: [address] [facility] 02/15/2021 SARS CoV 2 RdRp Gene, QL Probe, Respiratory Spec imen Nasopharyngeal Normal Sars-cov-2 negative negative Final [facility]: [address] [facility] 09/28/2020 HbA1C (Hemoglobin a1C), Blood High Hba1C 11. 4 % Final Lipid Panel, Serum Blood venous Normal Cholesterol, T otal 114 mg/dL <200 mg/dL Final [facility]: [address] [facility] Blood venous Low HDL Cholesterol 38 mg/dL > or = 40 mg/dL Final [facility]: [address] [facility] Blood venous High Triglycerides 208 mg/dL <150 mg/dL Final [facility]: [address] [facility] Blood venous Normal LDL-cholesterol 49 mg/dL (floresita c) Final [facility]: [address] [facility] Blood venous Normal Chol/hdlc Ratio 3.0 (calc) <5 .0 (calc) Final [facility]: [address] [facility] Blood venous Normal Non HDL Cholesterol 76 m g/dL (calc) <130 mg/dL (calc) Final [facility]: [address] [facility] CMP, Serum or Plasma Blood venous High Glucose 308 mg/dL 65-99 mg/dL Final [facility]: [address] Mary Jo sandhu [facility] Blood venous Normal Urea Nitrogen (BUN) 15 mg/dL 7-25 mg/dL Final [facility]: [address] [facility] Blood venous Normal Creatinine 0.93 mg/dL 0.70-1. 33 mg/dL Final [facility]: [address] [facility] Blood venous Normal eGFR Non-afr. Salvadorean 9 5 mL/min/1.73m2 > or = 60 mL/min/1.73m2 Final [facility]: [address] [facility] Blood venous Normal eGFR 11 0 mL/min/1.73m2 > or = 60 mL/min/1.73m2 [facility] 8[address] [facility] Blood venous BUN/creatinine Ratio not applicable (calc) 6-22 (calc) [facility]: [address]hu [facility] Blood venous Normal Sodium 135 mmol/L 135-146 mmo l/L [facility]: [address] [facility] Blood venous Normal Potassium 4.0 mmol/L 3.5-5.3 mmol/L [facility]: [address] [facility] Blood venous Normal Chloride 102 mmol/L 98-110 mm ol/L [facility]: [address] [facility] Blood venous Normal Carbon Dioxide 27 mmol/L 20-3 2 mmol/L [facility]: [address] [facility] Blood venous Normal Calcium 8.9 mg/dL 8.6-10.3 mg /dL [facility]: [address] [facility] Blood venous Normal Protein, Total 6.8 g/dL 6.1-8 .1 g/dL [facility]: [address] [facility] Blood venous Normal Albumin 4.1 g/dL 3.6-5.1 g/dL [facility]: [address] [facility] Blood venous Normal Globulin 2.7 g/dL (calc) 1.9- 3.7 g/dL (calc) [facility]: [address] [facility] Blood venous Normal Albumin/globulin Ratio 1 .5 (calc) 1.0-2.5 (calc) [facility]: [address]hu [facility] Blood venous Normal Bilirubin, Total 0.9 mg/dL 0. 2-1.2 mg/dL [facility]: [address] [facility] Blood venous Normal Alkaline Phosphatase 73 U/L 3 5-144 U/L [facility]: [address] [facility] Blood venous Low Ast 9 U/L 10-35 U/L [facility]: [address] [facility] Blood venous Normal Alt 15 U/L 9-46 U/L Final [facility]: [address] [facility] Urinalysis Complete, Reflex Culture Urine Normal Col or yellow yellow Final [facility]: [address] [facility] Urine Normal Appearance clear clear Final Ques t [facility]: [address] Urine High Specific Nogal 1.041 1.001-1.035 [facility]: [address] [facility] Urine Normal Ph 6.0 5.0-8.0 Final [facility]: [address] [facility] Urine ABNORMAL Glucose 3+ negative Final Que [facility]: [address] [facility] Urine Normal Bilirubin negative negative Final Q uest [facility]: [address] [facility] Urine Normal Ketones negative negative Final Que [facility]: [address] [facility] Urine Normal Occult Blood negative negative Final [facility]: [facility] [facility] Urine Normal Protein negative negative Final Que [facility]: [address] [facility] Urine Normal Nitrite negative negative Final Que [facility]: [address] [facility] Urine Normal Leukocyte Esterase negative negative Final [facility]: [address] [facility] Urine Normal Wbc none seen /hpf < or = 5 /hpf Fi nal [facility]: [address] [facility] Urine Normal Rbc none seen /hpf < or = 2 /hpf Fi nal [facility]: [address] [facility] Urine Normal Squamous Epithelial Cells none seen /hpf < or = 5 /hpf [facility]: [address]hu [facility] Urine Normal Bacteria none seen /hpf none seen /h pf [facility]: [address] [facility] Urine Normal Hyaline Cast none seen /lpf none see n /lpf [facility]: [address] [facility] Culture, Urine Reflexive Urine Culture Final [facility]: [address] [facility] Past Encounters 09/08/2021 Administration of SARS-CoV-2 Antigen Vaccine Gonzalo Motta MD: [address] [place] [address], Ph. 08/25/2021 Administration of Diphtheria, Pertussis, and Tetanus Vaccine; Type 2 Diabetes Mellitus without Complication; Raised Prostate Specific Antigen; Bipolar Disorder Jana Wylie PA-C: [address] [place] [address], Ph. 07/05/2021 Blood in Urine; Type II Diabetes Mellitus Uncontrolled Jana Wylie PA-C: [address] [place] [address], Ph. 06/28/2021 Type II Diabetes Mellitus Uncontrolled; Blood in Urine; Lower Urinary Tract Symptoms Due to Benign Prostatic Hypertrophy; Bipolar Disorder Jana Wylie PA-C: [address] [place] [address], Ph. 04/25/2021 Gonzalo Motta MD: [address] [place] [address], Ph. 03/21/2021 Type 2 Diabetes Mellitus without Complication; Bipolar Disorder; Hyperlipidemia Jana Wylie PA-C: [address] [place] [address], Ph. 03/10/2021 Type II Diabetes Mellitus Uncontrolled; Lower Urinary Tract Symptoms Due to Benign Prostatic Hypertrophy; Hyperlipidemia; Bipolar Disorder; Body Mass Index 25-29 - Overweight Jana Wylie PA-C: [address] [place] [address], Ph. 03/09/2021 Jana Wylie PA-C: [address] [place] [address], Ph. 02/21/2021 Gonzalo Motta MD: [address] [place] [address], Ph. 02/15/2021 Type II Diabetes Mellitus Uncontrolled; Exposure to SARS-CoV-2; Raised Prostate Specific Antigen; Bipolar Disorder Jana Wylie PA-C: [address] [place] [address], Ph. 09/30/2020 Bipolar Disorder; Excessive Sweating; Chest Pain; Type II Diabetes Mellitus Uncontrolled; Lower Urinary Tract Symptoms Due to Benign Prostatic Hypertrophy Jana Wylie PA-C: [address] [place] [address], Ph. Social History Tobacco Smoking Status Never Smoker Vaccine List Vaccine Type COVID-19, mRNA, LNP-S, PF, 100 mcg/0.5 m L dose .5 mL Tdap 10.5 mL Notes: Pt requests getting scheduled for covid vaccine. Plan of Care Patient Instructions Contact Dr. Hagan's office (your urologis t) to schedule a follow up appointment regarding your prostate concerns and contact us if you need a new referral. supervisory investigative specialist your new diabetic medication, Victoza, from the pharmacy and bring it to your appointment on 03/17/21 so that we can teach you how to use it. We have referred you to Kathia, our unit educator, to help you better manage your diabetes. She will be calling you. We will contact you about your cardiology appointment. Reminders Provider Appointments None recorded. Lab None recorded. Referral None recorded. Procedures None recorded. Surgeries None recorded. Imaging None recorded. Vitals 08/25/2021 03:20PM ESTABLISHED [id number] Height Weight BMI Blood Pressure 68 in 160 lbs 24.3 kg/m2 127/87 mm[Hg] 07/05/2021 09:30AM NURSE LAB COLLECTION Height 68 in 06/28/2021 11:00AM ESTABLISHED [id number] Height Blood Pressure 68 in 145/81 mm[Hg] 04/25/2021 08:00AM NURSE LAB COLLECTION Height 68 in 03/21/2021 09:00AM PROVIDER REQUESTED Height Weight BMI Blood Pressure 68 in 169 lbs 16 oz 25.8 kg/m2 120/79 mm[Hg] 03/10/2021 08:00AM ESTABLISHED [id number] Height Weight BMI Blood Pressure 68 in 169 lbs 16 oz 25.8 kg/m2 132/87 mm[Hg] 03/09/2021 08:30AM NURSE LAB COLLECTION Height 68 in 02/15/2021 08:00AM ESTABLISHED [id number] Height Weight BMI Blood Pressure 68 in 172 lbs 2 oz 26.2 kg/m2 124/72 mm[Hg] 09/30/2020 08:20AM ANNUAL EXAM Height Weight BMI Blood Pressure 68 in 169 lbs 6 oz 25.8 kg/m2 130/82 mm[Hg]
--- OUTSIDE RECORDS SUMMARY | 2021-09-10 14:33 | CCD | Continuity of Care Document ---
Author Author Greg YAN M.D. Organization Unknown Address [facility] [address] [place] [address] Phone [phone] Care Team Providers Care Production Tech Name Role Phone [facility] AUTM Glory Fischer MD AUTM [phone] Casey Spaulding MD AUTM [facility] AUTM Eligio Sandhu AUTM [phone] [facility] AUTM [phone] Ciara David AUTM [phone] Chris Jamil AUTM [phone] Vicki Galindo M.D. AUTM [phone] Problems Active Problems Provider Date Type 2 [...] Galindo M.D. Onset: 09/03/2018 Note: C5, C6, [id number] by NCS. Dr Deric Sandhu. Carpal tunnel [...] CPT Code Status Date Vaccine Lot # [id number] Given 12/16/2019 Tdap (Boostrix/Adacel) Vacci ne [id number] [...] Yellow Ua Appearance clear Normal: Clear Spec [place] 1.010 1.001-1.030 Ua PH Test Strip 5 5-9 Leukocytes - Normal: Negative Ua Nitrate - Normal: Negative Ua Protein trace Normal: Negative Inhouse Glucose 1000 High Normal: Negative Ua Ketones - Noraml: Negative Urobilinogen - Normal: Negative Ua Bilirubin - Normal: Negative Blood 250 High Noraml: Negative Procedures Date Code Description Status 04/06/2021 03422 Office/Outpatient Established Lo w MDM 20-29 Min Completed 03/11/2021 42713 Office/Outpatient New Low MDM 30 -44 Minutes Completed Medical Devices Description No Information Available Encounters Description No Information Available Assessments Date Code Description Provider 04/06/2021 M54.2 Cervicalgia Vicki Galindo M.D. 04/06/2021 M54.12 Radiculopathy, cervical region Dominique Galindo M.D. 03/11/2021 M54.2 Cervicalgia COURTNEY Cottrell Plan of Treatment Future Appointment(s):* 09/12/2021 9:15 am - Covid Resource Schedule at [facility] Functional Status Functional Condition Comment Date Status Glasses Active Mental Status Description No Information Available Referrals Refer to Reason for Referral Status Appt Date [facility] Weakness in left axillary nerve distribution. Please evaluate and treat. Also request EMG-NCT left upper extremity to include axillary, spinal accessaory and suprascapular nerves. Received Complete 03/28/2021 [facility] [place] [address] [phone]
--- OUTSIDE RECORDS SUMMARY | 2021-09-10 14:35 | CCD ---
Author Author [facility] Organization [facility] Address Unknown Phone Unavailable Care Team Providers Care Child Life Assistant Name Role Phone Suraj Motta MD Unavailable Unavailable Suraj Motta [...] Unavailable Unavailable Suraj Motta MD Unavailable Unavailable MottaSuraj MD Unavailable Unavailable Motta, Suraj Sánchez MD Unavailable Unavailable Motta, Suraj Sánchez MD Unavailable Unavailable Motta, Suraj Sánchez MD Unavailable Unavailable Motta, Suraj Sánchez MD Unavailable Unavailable Motta, Suraj Sánchez MD Unavailable Unavailable Motta, Suraj Sánchez MD Unavailable Unavailable Motta, Suraj Sánchez MD Unavailable Unavailable Motta, Suraj Sánchez MD Unavailable Unavailable Motta, Suraj Sánchez MD Unavailable Unavailable Motta, Suraj Sánchez MD Unavailable Unavailable Motta, Suraj Sánchez MD Unavailable Unavailable Motta, Suraj Sánchez MD Unavailable Unavailable Edson, Eligio MD Unavailable [...] Edson, Eligio MD Unavailable Unavailable Edson, Eligio MORALES Unavailable Unavailable Edson, Eligio MORALES Unavailable Unavailable Edson, Eligio MORALES Unavailable Unavailable Edson, Eligio MORALES Unavailable Unavailable Edson, Eligio MORALES Unavailable Unavailable Edson, Eligio MORALES Unavailable Unavailable Edson, Eligio MORALES Unavailable Unavailable Edson, Eligio MORALES Unavailable Unavailable Edson, Eligio MORALES Unavailable Unavailable Edson, Eligio MORALES Unavailable Unavailable Sandra Chicas SALES CONTRACTOR SALES CONTRACTOR Unavailable Unavailable Bartoszewski, Kelsea Darling MS, RPA-C Unavailable Unav ailable Bartoszewski, Eklsea Darling MS, RPA-C Unavailable Unav ailable Bartoszewski, Kelsea Darling MS, RPA-C Unavailable Unav ailable Bartoszewski, Kelsea Darling MS, RPA-C Unavailable Unav ailable Bartoszewski, Kelsea Darling MS, RPA-C Unavailable Unav ailable Bartoszewski, Kelsea Darling MS, RPA-C Unavailable Unav ailable Bartoszewski, Kelsea Darling MS, RPA-C Unavailable Unav ailable Bartoszewski, Kelsea Darling MS, RPA-C Unavailable Unav ailable Bartoszewski, Kelsea Darling MS, RPA-C Unavailable Unav ailable Bartoszewski, Kelsea Darling MS, RPA-C Unavailable Unav ailable Bartoszewski, Kelsea Darling MS, RPA-C Unavailable Unav ailable Bartoszewski, Kelsea Darling MS, RPA-C Unavailable Unav ailable Bartoszewski, Kelsea Darling MS, RPA-C Unavailable Unav ailable Bartoszewski, Kelsea Darling MS, RPA-C Unavailable Unav ailable Bartoszewski, Kelsea Darling MS, RPA-C Unavailable Unav ailable Bartoszewski, Kelsea Darling MS, RPA-C Unavailable Unav ailable Bartoszewski, Kelsea Darling MS, RPA-C Unavailable Unav ailable Bartoszewski, Kelsea Darling MS, RPA-C Unavailable Unav ailable Bartoszewski, Kelsea Darling MS, RPA-C Unavailable Unav ailable Bartoszewski, Kelsea Darling MS, RPA-C Unavailable Unav ailable Bartoszewski, Kelsea Darling MS, RPA-C Unavailable Unav ailable Bartoszewski, Kelsea Darling MS, RPA-C Unavailable Unav ailable Bartoszewski, Kelsea Darling MS, RPA-C Unavailable Unav ailable Bartoszewski, Kelsea Darling MS, RPA-C Unavailable Unav ailable Bartoszewski, Kelsea Darling MS, RPA-C Unavailable Unav ailable Bartoszewski, Kelsea Darling MS, RPA-C Unavailable Unav ailable Bartoszewski, Kelsea Darling MS, RPA-C Unavailable Unav ailable Bartoszewski, Kelsea Darling MS, RPA-C Unavailable Unav ailable Bartoszewski, Kelsea Darling MS, RPA-C Unavailable Unav ailable Harp, Carlos Comer MD Unavailable Unavailable Harp, Carlos Comer MD Unavailable Unavailable Harp, Carlos Comer MD Unavailable Unavailable Harp, Carlos Comer MD Unavailable Unavailable Miguelito WILSON DPM Unavailable Unavailable Miguelito WILSON DPM Unavailable Unavailable Miguelito WILSON DPM Unavailable Unavailable Miguelito WILSON DPM Unavailable Unavailable Miguelito WILSON DPM Unavailable Unavailable Miguelito WILSON DPM Unavailable Unavailable Miguelito WILSON DPM Unavailable Unavailable Miguelito WILSON DPM Unavailable Unavailable Miguelito WILSON DPM Unavailable Unavailable Miguelito WILSON DPM Unavailable Unavailable Miguelito WILSON DPM Unavailable Unavailable Miguelito WILSON DPM Unavailable Unavailable Miguelito WILSON DPM Unavailable Unavailable Miguelito WILSON DPM Unavailable Unavailable Miguelito WILSON DPM Unavailable Unavailable Miguelito WILSON DPM Unavailable Unavailable Miguelito WILSON DPM Unavailable Unavailable Miguelito WILSON DPM Unavailable Unavailable Miguelito WILSON DPM Unavailable Unavailable Miguelito WILSON DPM Unavailable Unavailable Miguelito WILSON DPM Unavailable Unavailable Miguelito WILSON DPM Unavailable Unavailable Miguelito WILSON DPM Unavailable Unavailable Miguelito WILSON DPM Unavailable Unavailable Miguelito WILSON DPM Unavailable Unavailable Miguelito WILSON DPM Unavailable Unavailable Miguelito WILSON DPM Unavailable Unavailable Miguelito WILSON DPM Unavailable Unavailable Miguelito WILSON DPM Unavailable Unavailable MAJAK, R ЕКАТЕРИНА DPM Unavailable Unavailable MAJAKMiguelito DPM Unavailable Unavailable PARNES, Z ESME MD Unavailable [...] Unavailable PARNES, Z ESME MD Unavailable Unavailable Bakari YAN MD Unavailable [...] Unavailable OBEN, T ELISE MD Unavailable Unavailable Aaliyah F Glory MORALES Unavailable Unavailable Aaliyah F Glory MORALES Unavailable Unavailable Aaliyah F Glory MORALES Unavailable Unavailable Aaliyah F Glory MORALES Unavailable Unavailable Aaliyah F Glory MORALES Unavailable Unavailable Aaliyah F Glory MORALES Unavailable Unavailable Aaliyah F Glory MD Unavailable Unavailable Kunnumpurath, F [...] Unavailable Kunnumpurath, F Glory MD Unavailable Unavailable Goutremout, Sallie Unavailable Cecil Wylie Unavailable Unavailable Scordo, M Jana PA Unavailable [...] is protected by Article 27-F of the [facility] Public Health law. If you continue you may have access to information: Regarding HIV / AIDS; Provided by facilities licensed or operated by the [facility] Office of Mental Health; or Provided by the [facility] Office for People With Developmental Disabilities. If such information is present, then the following [facility] mandated warning applies: This information has [...] law may result in a fine or snf sentence or both. A general authorization for the release of medical or other information is NOT sufficient authorization for further disc losure. Allergies and Adverse Reactions Type Description Substance Reaction Status Data Source(s ) No Known Drug Allergies No Known Drug Allergies [facility] No Known Food Allergies No Known Food Allergies [facility] Propensity to adverse reactions seasonal seasonal [facility] Family History Family Member Name Family Member Gender Family Member Status Date o f Status Description Data Source(s) Unknown Male Problem [facility] ([facility]) Encounters Encounter Providers Location Date Indications Data Source(s ) Outpatient Attender: Darling Salguero i MS, RPA-CConsultant: Glory Fischer MD 09/09/2021 04:24:36 PM EDT [facility] Gonzalo Motta MD: [address] [place] [address], Ph. Attender: Gonzalo Motta MD [facility] Medical 09/08/2021 12:00:00 AM EDT [place] ([facility]) Outpatient Attender: ELISE YAN MDConsultant: Glory castillo MD 09/07/2021 08:07:00 AM EDT - 09/07/2021 08:07:00 AM EDT [facility] Jana Wylie PA-C: [address], [place] [address], Ph. Attender: Jana PERDOMO [facility] Medical 08/25/2021 12:00:00 AM EDT [place] ([facility]) Jana Wylie PA-C: [address], [place] [address], Ph. Attender: Jana PERDOMO [facility] Medical 08/25/2021 12:00:00 AM EDT [place] ([facility]) Jana Wylie PA-C: [address], [place] [address], Ph. Attender: Jana PERDOMO [facility] Medical 07/05/2021 12:00:00 AM EDT [place] ([facility]) Jana Wylie PA-C: [address], [place] [address], Ph. Attender: Jana PERDOMO [facility] Medical 07/05/2021 12:00:00 AM EDT [place] ([facility]) Jana Wylie PA-C: [address], [place] [address], Ph. Attender: Jana PERDOMO [facility] Medical 07/05/2021 12:00:00 AM EDT [place] ([facility]) Extended Individual Psychotherapy - 45 min Attender: Taylor Guajardo [facility] 06/28/2021 01:45:00 AM EDT - 06/28/2021 01:45:00 AM EDT [facility] ([facility]) Jana Wylie PA-C: [address], [place] [address], Ph. Attender: Jana PERDOMO [facility] Medical 06/28/2021 12:00:00 AM EDT [place] ([facility]) Jana Wylie PA-C: [address], [place] [address], Ph. Attender: Jana PERDOMO [facility] Medical 06/28/2021 12:00:00 AM EDT [place] ([facility]) Jana Wylie PA-C: [address], [facility] [place] [address], Ph. Attender: Jana PERDOMO [facility] Medical 06/28/2021 12:00:00 AM EDT [place] ([facility]) Jana Wylie PA-C: [address], [facility] [place] [address], Ph. Attender: Jana PERDOMO [facility] Medical 06/28/2021 12:00:00 AM EDT [place] ([facility]) Attender: Sallie Guajardo 06/28/2021 12:00:0 0 AM EDT [facility] ([facility]) Outpatient [id number] 06/14/2021 11:48:03 AM EDT [facility] Telemed Diagnostic Eval Attender: Souleymane Harp MD [facility] 06/07/2021 08:30:00 AM EDT - 06/07/2021 08:30:00 AM EDT [facility] ([facility]) Attender: Souleymane Harp MD 06/07/2021 12:00:00 AM EDT [facility] ([facility]) Outpatient Attender: Eligio Sandhu MD Main office - [place] 05/10/2021 01:15:00 PM EDT [facility] ([facility]) Gonzalo Motta MD: [address] [place] [address], Ph. Attender: Gonzalo Motta MD [facility] Medical 04/25/2021 12:00:00 AM EDT [place] ([facility]) Gonzalo Motta MD: [address] [place] [address], Ph. Attender: Gonzalo Motta MD [facility] Medical 04/25/2021 12:00:00 AM EDT [place] ([facility]) Gonzalo Motta MD: [address] [place] [address], Ph. Attender: Gonzalo Motta MD [facility] Medical 04/25/2021 12:00:00 AM EDT [place] ([facility]) Gonzalo Motta MD: [address] [place] [address], Ph. Attender: Gonzalo Motta MD [facility] Medical 04/25/2021 12:00:00 AM EDT [place] ([facility]) Gonzalo Motta MD: [address] [place] [address], Ph. Attender: Gonzalo Motta MD [facility] Medical 04/25/2021 12:00:00 AM EDT [place] ([facility]) Outpatient Attender: Eligio Sandhu MD Main office - [place] 04/07/2021 03:15:00 PM EDT [facility] ([facility]) Outpatient Attender: ESME STYLES MDConsultant: Glory ann MD 04/06/2021 03:08:00 PM EDT - 04/06/2021 03:08:00 PM EDT [facility] Jana Wylie PA-C: [address], [place] [address], Ph. Attender: Jana PERDOMO [facility] Medical 03/21/2021 12:00:00 AM EDT [place] ([facility]) Jana Wylie PA-C: [address], [place] [address], Ph. Attender: Jana PERDOMO [facility] Medical 03/21/2021 12:00:00 AM EDT [place] ([facility]) Jana Wylie PA-C: [address], [place] [address], Ph. Attender: Jana PERDOMO [facility] Medical 03/21/2021 12:00:00 AM EDT [place] ([facility]) Jana Wylie PA-C: [address], [place] [address], Ph. Attender: Jana PERDOMO [facility] Medical 03/21/2021 12:00:00 AM EDT [place] ([facility]) Jana Wylie PA-C: [address], [place] [address], Ph. Attender: Jana PERDOMO [facility] Medical 03/21/2021 12:00:00 AM EDT [place] ([facility]) Jana Wylie PA-C: [address], [place] [address], Ph. Attender: Jana PERDOMO [facility] Medical 03/21/2021 12:00:00 AM EDT [place] ([facility]) Outpatient Attender: ЕКАТЕРИНА WILSON [facility] Office 02/18 08:15:00 AM EDT [facility] ([facility] Outpatient Attender: ESME Caceres nder: ELISE YAN MDConsultant: Glory Fischer MD 03/11/2021 02:01:00 PM EDT - 03/11/2021 02:01:00 PM EDT [facility] JACINDA PayneC: [address], [place] [address], Ph. Attender: Jana PERDOMO [facility] Medical 03/10/2021 12:00:00 AM EDT [facility]) Jana Wylie PA-C: [address], [place] [address], Ph. Attender: Jana PERDOMO [facility] Medical 03/10/2021 12:00:00 AM EDT [place] ([facility]) Jana Wylie PA-C: [address], [place] [address], Ph. Attender: Jana PERDOMO [facility] Medical 03/10/2021 12:00:00 AM EDT [place] ([facility]) Jana Wylie PA-C: [address], [place] [address], Ph. Attender: Jana PERDOMO [facility] Medical 03/10/2021 12:00:00 AM EDT [place] ([facility]) Jana Wylie PA-C: [address], [place] [address], Ph. Attender: Jana PERDOMO [facility] Medical 03/10/2021 12:00:00 AM EDT [place] ([facility]) Jana Wylie PA-C: [address], [place] [address], Ph. Attender: Jana PERDOMO [facility] Medical 03/10/2021 12:00:00 AM EDT [place] ([facility]) Jana Wylie PA-C: [address], [place] [address], Ph. Attender: Jana PERDOMO [facility] Medical 03/10/2021 12:00:00 AM EDT [place] ([facility]) Jana Wylie PA-C: [address], [place] [address], Ph. Attender: Jana PERDOMO [facility] Medical 03/09/2021 12:00:00 AM EDT [place] ([facility]) Jana Wylie PA-C: [address], [place] [address], Ph. Attender: Jana PERDOMO [facility] Medical 03/09/2021 12:00:00 AM EDT [place] ([facility]) Jana Wylie PA-C: [address], [place] [address], Ph. Attender: Jana PERDOMO [facility] Medical 03/09/2021 12:00:00 AM EDT [place] ([facility]) Jana Wylie PA-C: [address], [place] [address], Ph. Attender: Jana PERDOMO [facility] Medical 03/09/2021 12:00:00 AM EDT [place] ([facility]) Jana Wylie PA-C: [address], [facility] [place] [address], Ph. Attender: Jana PERDOMO [facility] Medical 03/09/2021 12:00:00 AM EDT [place] ([facility]) Jana Wylie PA-C: [address], [place] [address], Ph. Attender: Jana PERDOMO [facility] Medical 03/09/2021 12:00:00 AM EDT [place] ([facility]) Jana Wylie PA-C: [address], [facility] [place] [address], Ph. Attender: Jana PERDOMO [facility] Medical 03/09/2021 12:00:00 AM EDT [place] ([facility]) Jana Wylie PA-C: [address], [facility] [place] [address], Ph. Attender: Jana PERDOMO [facility] Medical 03/09/2021 12:00:00 AM EDT [place] ([facility]) Gonzalo Motta MD: [address], [place] [address], Ph. Attender: Gonzalo Motta MD [facility] Medical 02/21/2021 12:00:00 AM EDT [place] ([facility]) Gonzalo Motta MD: [address], [place] [address], Ph. Attender: Gonzalo Motta MD [facility] Medical 02/21/2021 12:00:00 AM EDT [place] ([facility]) Gonzalo Motta MD: [address] [place] [address], Ph. Attender: Gonzalo Motta MD [facility] Medical 02/21/2021 12:00:00 AM EDT [place] ([facility]) Gonzalo Motta MD: [address] [place] [address], Ph. Attender: Gonzalo Motta MD [facility] Medical 02/21/2021 12:00:00 AM EDT [place] ([facility]) Gonzalo Motta MD: [address] [place] [address], Ph. Attender: Gonzalo Motta MD [facility] Medical 02/21/2021 12:00:00 AM EDT [place] ([facility]) Gonzalo Motta MD: [address] [place] [address], Ph. Attender: Gonzalo Motta MD [facility] Medical 02/21/2021 12:00:00 AM EDT [place] ([facility]) Gonzalo Motta MD: [address] [place] [address], Ph. Attender: Gonzalo Motta MD [facility] Medical 02/21/2021 12:00:00 AM EDT [place] ([facility]) Gonzalo Motta MD: [address] [place] [address], Ph. Attender: Gonzalo Motta MD [facility] Medical 02/21/2021 12:00:00 AM EDT [place] ([facility]) Gonzalo Motta MD: [address] [place] [address], Ph. Attender: Gonzalo Motta MD [facility] Medical 02/21/2021 12:00:00 AM EDT [place] ([facility]) Jana Wylie PA-C: [address], [place] [address], Ph. Attender: Jana PERDOMO [facility] Medical 02/15/2021 12:00:00 AM EDT [place] ([facility]) Jana Wylie PA-C: [address], [place] [address], Ph. Attender: Jana PERDOMO [facility] Medical 02/15/2021 12:00:00 AM EDT [place] ([facility]) Jana Wylie PA-C: [address], [place] [address], Ph. Attender: Jana PERDOMO [facility] Medical 02/15/2021 12:00:00 AM EDT [place] ([facility]) Jana Wylie PA-C: [address], [place] [address], Ph. Attender: Jana PERDOMO [facility] Medical 02/15/2021 12:00:00 AM EDT [place] ([facility]) Jana Wylie PA-C: [address], [place] [address], Ph. Attender: Jana PERDOMO [facility] Medical 02/15/2021 12:00:00 AM EDT [place] ([facility]) Jana Wylie PA-C: [address], [place] [address], Ph. Attender: Jana PERDOMO [facility] Medical 02/15/2021 12:00:00 AM EDT [place] ([facility]) Jana Wylie PA-C: [address], [place] [address], Ph. Attender: Jana PERDOMO [facility] Medical 02/15/2021 12:00:00 AM EDT [place] ([facility]) Jana Wylie PA-C: [address], [place] [address], Ph. Attender: Jana PERDOMO [facility] Medical 02/15/2021 12:00:00 AM EDT [place] ([facility]) Jana Wylie PA-C: [address], [place] [address], Ph. Attender: Jana PERDOMO [facility] Medical 02/15/2021 12:00:00 AM EDT [place] ([facility]) Jana Wylie PA-C: [address], [place] [address], Ph. Attender: Jana PERDOMO [facility] Medical 02/15/2021 12:00:00 AM EDT [place] ([facility]) Outpatient Attender: MADHURI HELLER 09/30/2020 08:32:01 A M [facility] Jana Wylie PA-C: [address], [place] [address], Ph. Attender: Jana PERDOMO [facility] Medical 09/30/2020 12:00:00 AM EST [facility]) Jana Wylie PA-C: [address], [place] [address], Ph. Attender: Jana PERDOMO [facility] Medical 09/30/2020 12:00:00 AM EST [place] ([facility]) Jana Wylie PA-C: [address], [place] [address], Ph. Attender: Jana PERDOMO [facility] Medical 09/30/2020 12:00:00 AM EST [place] ([facility]) Jana Wyile PA-C: [address], [place] [address], Ph. Attender: Jana PERDOMO [facility] Medical 09/30/2020 12:00:00 AM EST [place] ([facility]) Jana Wylie PA-C: [address], [place] [address], Ph. Attender: Jana PERDOMO [facility] Medical 09/30/2020 12:00:00 AM EST [place] ([facility]) Jana Wylie PA-C: [address], [place] [address], Ph. Attender: Jana PERDOMO [facility] Medical 09/30/2020 12:00:00 AM EST [place] ([facility]) Jana Wylie PA-C: [address], [place] [address], Ph. Attender: Jana PERDOMO [facility] Medical 09/30/2020 12:00:00 AM EST [place] ([facility]) Jana Wylie PA-C: [address], [place] [address], Ph. Attender: Jana PERDOMO [facility] Medical 09/30/2020 12:00:00 AM EST [facility]) Jana Wylie PA-C: [address], [place] [address], Ph. Attender: Jana PERDOMO [facility] Medical 09/30/2020 12:00:00 AM EST [place] [facility]) Jana Wylie PA-C: [address], [place] [address], Ph. Attender: Jana PERDOMO [facility] Medical 09/30/2020 12:00:00 AM EST [place] [facility]) Jana Wylie PA-C: [address], [place] [address], Ph. Attender: Jana PERDOMO [facility] 09/30/2020 12:00:00 AM EST [place] ([facility]) Outpatient Attender: ESME STYLES MDConsultant: Glory ann MD 10/15/2018 01:14:32 PM [facility] - 10/15/2018 01:13:00 PM [facility] Functional Status Immunizations Vaccine Date Status Description Data Source(s) COVID-19, mRNA, LNP-S, PF, 100 mcg/0.5 mL dose 09/08/2021 08 :59:35 AM EDT completed 10.5 mL [place] ([facility]) Tdap 08/25/2021 04:27:00 PM EDT completed 08/25/2021 0.5 mL [place] ([facility]) Medications Medication Brand Name Start Date Product Form Dose Route Admi nistrative Instructions Pharmacy Instructions Status Indications Reaction Description Data Source(s) 24 HR paliperidone 1.5 MG Extended Release Oral Tablet [Inve ga] Invega 06/07/2021 12:00:00 AM EDT 1.5 mg by mouth completed <td ID="MedicationRxNorm_3">418691</td><td ID="MedicationMedication_3">Invega</td><td ID="MedicationRoute_3">by mouth</td><td ID="MedicationRouteConcept_3">[id number]</td><td ID="MedicationStartDate_3">06/07/2021</td><td ID="MedicationStopDate_3">07/07/2021</td><td ID="MedicationDosageFrequency_3">at bedtime</td><td ID="MedicationDuration_3">30</td><td ID="MedicationFormulaStrength_3">1.5 mg</td><td ID="MedicationDosageForm_3">tablet extended release 24hr</td><td ID="MedicationDosageFormCode_3"></td><td ID="MedicationDosageDescription_3"></td><td ID="MedicationMedicationId_3">[id number]</td><td ID="MedicationAccount_3">[id number]</td><td ID="MedicationNpid_3">[id number]</td><td ID="MedicationAuthorFirstName_3">Souleymane</td><td ID="MedicationAuthorLastName_3">Harp</td><td ID="MedicationTaxonomyCode_3">[id number]</td><td ID="MedicationTaxonomyDesc_3"> Psychiatry</td><td ID="MedicationPhoneNumber_3">[phone]</td> [facility] ([facility] 24 HR paliperidone 1.5 MG Extended Release Oral Tablet [Inve ga] Invega 06/07/2021 12:00:00 AM EDT 1.5 mg by mouth completed <td ID="MedicationRxNorm_1">[id number]</td><td ID="MedicationMedication_1">Invega</td><td ID="MedicationRoute_1">by mouth</td><td ID="MedicationRouteConcept_1">D14314</td><td ID="MedicationStartDate_1">06/07/2021</td><td ID="MedicationStopDate_1">07/07/2021</td><td ID="MedicationDosageFrequency_1">at bedtime</td><td ID="MedicationDuration_1">30</td><td ID="MedicationFormulaStrength_1">1.5 mg</td><td ID="MedicationDosageForm_1">tablet extended release 24hr</td><td ID="MedicationDosageFormCode_1"></td><td ID="MedicationDosageDescription_1"></td><td ID="MedicationMedicationId_1">[id number]</td><td ID="MedicationAccount_1">[id number]</td><td ID="MedicationNpid_1">[id number]</td><td ID="MedicationAuthorFirstName_1">Souleymane</td><td ID="MedicationAuthorLastName_1">Harp</td><td ID="MedicationTaxonomyCode_1">[id number]</td><td ID="MedicationTaxonomyDesc_1"> Psychiatry</td><td ID="MedicationPhoneNumber_1">[phone]</td> [facility] ([facility]) Fluoxetine 10 MG Oral Capsule [Prozac] Prozac 07/02/2018 12:0 0:00 AM EDT 10 mg completed <td ID="Me dicationRxNorm_2">222296</td><td ID="MedicationMedication_2">Prozac</td><td ID="MedicationRoute_2"></td><td ID="MedicationRouteConcept_2"></td><td ID="MedicationStartDate_2">07/02/2018</td><td ID="MedicationStopDate_2">06/07/2021</td><td ID="MedicationDosageFrequency_2">every morning</td><td ID="MedicationDuration_2"></td><td ID="MedicationFormulaStrength_2">10 mg</td><td ID="MedicationDosageForm_2">capsule</td><td ID="MedicationDosageFormCode_2"></td><td ID="MedicationDosageDescription_2">as directed</td><td ID="MedicationMedicationId_2">[id number]</td><td ID="MedicationAccount_2">[id number]</td><td ID="MedicationNpid_2">[id number]</td><td ID="MedicationAuthorFirstName_2">Elsa</td><td ID="MedicationAuthorLastName_2">MacQueen</td><td ID="MedicationTaxonomyCode_2">[id number]</td><td ID="MedicationTaxonomyDesc_2">Psychiatric/Mental Health</td><td ID="MedicationPhoneNumber_2">[phone]</td> [facility] ([facility]) Lurasidone Hydrochloride 80 MG Oral Tablet [Latuda] Latuda 07/19/2017 12:00:00 AM EDT 80 mg completed <td ID ="MedicationRxNorm_1">[id number]</td><td ID="MedicationMedication_1">Latuda</td><td ID="MedicationRoute_1"></td><td ID="MedicationRouteConcept_1"></td><td ID="MedicationStartDate_1">07/19/2017</td><td ID="MedicationStopDate_1">06/07/2021</td><td ID="MedicationDosageFrequency_1">once a day</td><td ID="MedicationDuration_1"></td><td ID="MedicationFormulaStrength_1">80 mg</td><td ID="MedicationDosageForm_1">tablet</td><td ID="MedicationDosageFormCode_1"></td><td ID="MedicationDosageDescription_1"></td><td ID="MedicationMedicationId_1">[id number]</td><td ID="MedicationAccount_1">[id number]</td><td ID="MedicationNpid_1">[id number]</td><td ID="MedicationAuthorFirstName_1">Elsa</td><td ID="MedicationAuthorLastName_1">MacQueen</td><td ID="MedicationTaxonomyCode_1">[id number]</td><td ID="MedicationTaxonomyDesc_1">Psychiatric/Mental Health</td><td ID="MedicationPhoneNumber_1">[phone]</td> [facility] ([facility]) atorvastatin 20 MG Oral Tablet atorvastatin 20 mg tabl et TK 1 T PO QD atorvastatin 20 mg tablet TK 1 T PO QD completed atorvastatin 20 MG Oral Tablet [facility] ([facility]) 0.5 ML dulaglutide 1.5 MG/ML Auto-Inject or [Trulicity] Trulicity 0.75 mg/0.5 mL subcutaneous pen injector Trulicity 0.75 mg/0.5 mL subcutaneous pen injector completed 0.5 ML dulaglu tide 1.5 MG/ML Auto-Injector [Trulicity] [facility] ([facility]) 0.5 ML dulaglutide 1.5 MG/ML Auto-Inject or [Trulicity] Trulicity 0.75 mg/0.5 mL subcutaneous pen injector Trulicity 0.75 mg/0.5 mL subcutaneous pen injector completed 0.5 ML dulaglu tide 1.5 MG/ML Auto-Injector [Trulicity] [place] ([facility]) Cyclobenzaprine hydrochloride 5 MG Oral Tablet cyclobenzaprine 5 mg tablet TAKE ONE TABLET BY MOUTH THREE TIMES DAILY NEEDED FOR MUSCLE SPASMS cyclobenzaprine 5 mg tablet TAKE ONE TABLET BY MOUTH THREE TIMES DAILY NEEDED FOR MUSCLE SPASMS completed cyclobenzaprine hydrochloride 5 MG Oral Tablet [facility] ([facility]) OneTouch Verio test strips U UTD TO TEST TID [id number] completed OneTouch Verio test strips [place] ([facility]) sitagliptin 25 MG Oral Tablet [Januvia] Januvia 25 mg tablet Januvia 25 mg tablet completed sitagliptin 25 MG Oral Tablet [Januvia] [place] ([facility]) Naproxen 500 MG Oral Tablet naproxen 500 mg tablet TK 1 T PO BID P naproxen 500 mg tablet TK 1 T PO BID P completed naproxen 500 MG Oral Tablet [place] ([facility]) sitagliptin 25 MG Oral Tablet [Januvia] Januvia 25 mg tablet Januvia 25 mg tablet completed sitagliptin 25 MG Oral Tablet [Januvia] [place] ([facility]) atorvastatin 20 MG Oral Tablet [...] Oral Tablet [facility] ([facility]) Acyclovir 200 MG Oral Capsule acyclovir 200 mg capsule acycl ovir 200 mg capsule completed acyclovir 200 MG Oral Capsule [place] ([facility]) 0.5 ML dulaglutide 1.5 MG/ML Auto-Inject or [Trulicity] Trulicity 0.75 mg/0.5 mL subcutaneous pen injector Trulicity 0.75 mg/0.5 mL subcutaneous pen injector completed 0.5 ML dulaglu tide 1.5 MG/ML Auto-Injector [Trulicity] [place] ([facility]) 3 ML Insulin Lispro 100 [...] completed naproxen 500 MG Oral Tablet [facility] ([facility]) atorvastatin 10 MG Oral Tablet atorvastatin 10 mg tabl et atorvastatin 10 mg tablet completed atorvastatin 10 MG Oral Tablet [facility] ([facility]) Suprep Bowel Prep Kit 17.5 gram-3.13 gram-1.6 gram ora l solution MX AND DRK UTD [id number] completed Suprep Bowel Prep Kit 17.5 gram-3.13 gram-1.6 gram oral solution [facility] ([facility]) Cephalexin 500 MG Oral Capsule cephalexin 500 mg capsu le cephalexin 500 mg capsule completed cephalexin 500 MG Oral Capsule [place] ([facility]) atorvastatin 20 MG Oral Tablet [...] dulaglu tide 1.5 MG/ML Auto-Injector [Trulicity] [place] ([facility]) 1.5 ML Insulin Glargine 300 [...] insulin glargine 300 UNT/ML Pen Injector [Toujeo] [place] ([facility]) gabapentin 300 MG Oral Capsule gabapenti n 300 mg capsule TAKE 1 CAPSULE BY MOUTH THREE TIMES DAILY gabapentin 300 mg capsule TAKE 1 CAPSULE BY MOUTH THREE TIMES DAILY completed gabapentin 300 MG Oral Capsule [place] ([facility]) 0.5 ML dulaglutide 1.5 MG/ML Auto-Inject or [Trulicity] Trulicity 0.75 mg/0.5 mL subcutaneous pen injector Trulicity 0.75 mg/0.5 mL subcutaneous pen injector completed 0.5 ML dulaglu tide 1.5 MG/ML Auto-Injector [Trulicity] [place] ([facility]) sitagliptin 50 MG Oral Tablet [Januvia] Januvia 50 mg tablet Januvia 50 mg tablet completed sitagliptin 50 MG Oral Tablet [Januvia] [place] ([facility]) 3 ML Insulin Lispro 100 [...] test strips U UTD TO TEST TID [id number] completed OneTouch Verio test strips [place] ([facility]) 1.5 ML Insulin [...] Injector [Toujeo] [facility] ([facility]) Naproxen 500 MG Oral Tablet naproxen 500 mg tablet TK 1 T PO BID P naproxen 500 mg tablet TK 1 T PO BID P completed naproxen 500 MG Oral Tablet [facility] ([facility]) sitagliptin 25 MG Oral Tablet [Januvia] Januvia 25 mg tablet Januvia 25 mg tablet completed sitagliptin 25 MG Oral Tablet [Januvia] [facility] ([facility]) Cyclobenzaprine hydrochloride 5 MG Oral Tablet cyclobenzaprine 5 mg tablet TAKE ONE TABLET BY MOUTH THREE TIMES DAILY NEEDED FOR MUSCLE SPASMS cyclobenzaprine 5 mg tablet TAKE ONE TABLET BY MOUTH THREE TIMES DAILY NEEDED FOR MUSCLE SPASMS completed cyclobenzaprine hydrochloride 5 MG Oral Tablet [facility] ([facility]) Naproxen 500 MG Oral Tablet naproxen 500 mg tablet TK 1 T PO BID P naproxen 500 mg tablet TK 1 T PO BID P completed naproxen 500 MG Oral Tablet [facility] ([facility]) 3 ML Insulin Lispro 100 UNT/ML Pen Injec tor [Humalog] Humalog KwikPen (U-100) Insulin 100 unit/mL subcutaneous Humalog KwikPen (U-100) Insulin 100 unit /mL subcutaneous completed 3 ML insulin lispro 100 UNT/ML Pen Injector [Humalog] [facility] ([facility]) Naproxen 500 MG Oral Tablet naproxen 500 mg tablet TK 1 T PO BID P naproxen 500 mg tablet TK 1 T PO BID P completed naproxen 500 MG Oral Tablet [place] ([facility]) Suprep Bowel Prep Kit 17.5 gram-3.13 gram-1.6 gram ora l solution MX AND DRK UTD [id number] completed Suprep Bowel Prep Kit 17.5 gram-3.13 gram-1.6 gram oral solution [facility] ([facility]) atorvastatin 20 MG Oral Tablet atorvastatin 20 mg tabl et TK 1 T PO QD atorvastatin 20 mg tablet TK 1 T PO QD completed atorvastatin 20 MG Oral Tablet [place] ([facility]) Acyclovir 200 MG Oral Capsule acyclovir 200 mg capsule acycl ovir 200 mg capsule completed acyclovir 200 MG Oral Capsule [place] ([facility]) sitagliptin 25 MG Oral Tablet [Januvia] Januvia 25 mg tablet Januvia 25 mg tablet completed sitagliptin 25 MG Oral Tablet [Januvia] [place] ([facility]) sitagliptin 25 MG Oral Tablet [Januvia] Januvia 25 mg tablet Januvia 25 mg tablet completed sitagliptin 25 MG Oral Tablet [Januvia] [place] ([facility]) gabapentin 300 MG Oral Capsule gabapenti n 300 mg capsule TAKE 1 CAPSULE BY MOUTH THREE TIMES DAILY gabapentin 300 mg capsule TAKE 1 CAPSULE BY MOUTH THREE TIMES DAILY completed gabapentin 300 MG Oral Capsule [place] ([facility]) 1.5 ML Insulin Glargine 300 [...] insulin glargine 300 UNT/ML Pen Injector [Toujeo] [facility]) 0.5 ML dulaglutide 1.5 MG/ML Auto-Inject or [Trulicity] Trulicity 0.75 mg/0.5 mL subcutaneous pen injector Trulicity 0.75 mg/0.5 mL subcutaneous pen injector completed 0.5 ML dulaglu tide 1.5 MG/ML Auto-Injector [Trulicity] [place] ([facility]) gabapentin 300 MG Oral Capsule gabapenti n 300 mg capsule TAKE 1 CAPSULE BY MOUTH THREE TIMES DAILY gabapentin 300 mg capsule TAKE 1 CAPSULE BY MOUTH THREE TIMES DAILY completed gabapentin 300 MG Oral Capsule [place] ([facility]) sitagliptin 25 MG Oral Tablet [Januvia] Januvia 25 mg tablet Januvia 25 mg tablet completed sitagliptin 25 MG Oral Tablet [Januvia] [place] ([facility]) gabapentin 300 MG Oral Capsule gabapenti n 300 mg capsule TAKE 1 CAPSULE BY MOUTH THREE TIMES DAILY gabapentin 300 mg capsule TAKE 1 CAPSULE BY MOUTH THREE TIMES DAILY completed gabapentin 300 MG Oral Capsule [facility]) Cephalexin 500 MG Oral Capsule cephalexin 500 mg capsu le cephalexin 500 mg capsule completed cephalexin 500 MG Oral Capsule [place] ([facility]) Suprep Bowel Prep Kit 17.5 gram-3.13 gram-1.6 gram ora l solution MX AND DRK UTD [id number] completed Suprep Bowel Prep Kit 17.5 gram-3.13 gram-1.6 gram oral solution [facility] ([facility]) 0.5 ML dulaglutide 1.5 MG/ML Auto-Inject or [Trulicity] Trulicity 0.75 mg/0.5 mL subcutaneous pen injector Trulicity 0.75 mg/0.5 mL subcutaneous pen injector completed 0.5 ML dulaglu tide 1.5 MG/ML Auto-Injector [Trulicity] [place] ([facility]) 1.5 ML Insulin Glargine 300 [...] sitagliptin 25 MG Oral Tablet [Januvia] [facility] ([facility]) 3 ML Insulin Lispro 100 UNT/ML Pen Injec tor [Humalog] Humalog KwikPen (U-100) Insulin 100 unit/mL subcutaneous Humalog KwikPen (U-100) Insulin 100 unit /mL subcutaneous completed 3 ML insulin lispro 100 UNT/ML Pen Injector [Humalog] [place] ([facility]) atorvastatin 20 [...] ora l solution MX AND DRK UTD 538337 completed Suprep Bowel Prep Kit 17.5 gram-3.13 gram-1.6 gram oral solution [facility] ([facility]) sitagliptin 25 MG Oral Tablet [Januvia] Januvia 25 mg tablet Januvia 25 mg tablet completed sitagliptin 25 MG Oral Tablet [Januvia] [place] ([facility]) Naproxen 500 MG Oral Tablet naproxen 500 mg tablet TK 1 T PO BID P naproxen 500 mg tablet TK 1 T PO BID P completed naproxen 500 MG Oral Tablet [place] ([facility]) gabapentin 300 MG Oral Capsule gabapenti n 300 mg capsule TAKE 1 CAPSULE BY MOUTH THREE TIMES DAILY gabapentin 300 mg capsule TAKE 1 CAPSULE BY MOUTH THREE TIMES DAILY completed gabapentin 300 MG Oral Capsule [facility] ([facility]) atorvastatin 10 MG Oral Tablet atorvastatin 10 mg tabl et atorvastatin 10 mg tablet completed atorvastatin 10 MG Oral Tablet [facility] ([facility]) Naproxen 500 MG Oral Tablet naproxen 500 mg tablet TK 1 T PO BID P naproxen 500 mg tablet TK 1 T PO BID P completed naproxen 500 MG Oral Tablet [facility] ([facility]) Suprep Bowel Prep Kit 17.5 gram-3.13 gram-1.6 gram ora l solution MX AND DRK UTD [id number] completed Suprep Bowel Prep Kit 17.5 gram-3.13 gram-1.6 gram oral solution [facility] ([facility]) Suprep Bowel Prep Kit 17.5 gram-3.13 gram-1.6 gram ora l solution MX AND DRK UTD 515586 completed Suprep Bowel Prep Kit 17.5 gram-3.13 gram-1.6 gram oral solution [facility] ([facility]) OneTouch Verio test strips U UTD TO TEST TID 818952 completed OneTouch Verio test strips [place] ([facility]) Suprep Bowel Prep Kit 17.5 gram-3.13 gram-1.6 gram ora l solution MX AND DRK UTD 129459 completed Suprep Bowel Prep Kit 17.5 gram-3.13 gram-1.6 gram oral solution [facility] ([facility]) 0.5 ML dulaglutide 1.5 MG/ML Auto-Inject or [Trulicity] Trulicity 0.75 mg/0.5 mL subcutaneous pen injector Trulicity 0.75 mg/0.5 mL subcutaneous pen injector completed 0.5 ML dulaglu tide 1.5 MG/ML Auto-Injector [Trulicity] [place] ([facility]) Suprep Bowel Prep Kit 17.5 gram-3.13 gram-1.6 gram ora l solution MX AND DRK UTD [id number] completed Suprep Bowel Prep Kit 17.5 gram-3.13 gram-1.6 gram oral solution [facility] ([facility]) atorvastatin 20 MG Oral Tablet atorvastatin 20 mg tabl et TK 1 T PO QD atorvastatin 20 mg tablet TK 1 T PO QD completed atorvastatin 20 MG Oral Tablet [facility] ([facility]) 1.5 ML [...] sitagliptin 25 MG Oral Tablet [Januvia] [place] ([facility]) gabapentin 300 MG Oral Capsule gabapenti n 300 mg capsule TAKE 1 CAPSULE BY MOUTH THREE TIMES DAILY gabapentin 300 mg capsule TAKE 1 CAPSULE BY MOUTH THREE TIMES DAILY completed gabapentin 300 MG Oral Capsule [facility] ([facility]) Naproxen 500 MG Oral Tablet naproxen 500 mg tablet TK 1 T PO BID P naproxen 500 mg tablet TK 1 T PO BID P completed naproxen 500 MG Oral Tablet [place] ([facility]) Naproxen 500 MG Oral Tablet naproxen 500 mg tablet TK 1 T PO BID P naproxen 500 mg tablet TK 1 T PO BID P completed naproxen 500 MG Oral Tablet [place] ([facility]) sitagliptin 50 MG Oral Tablet [Januvia] Januvia 50 mg tablet Januvia 50 mg tablet completed sitagliptin 50 MG Oral Tablet [Januvia] [place] ([facility]) sitagliptin 25 MG Oral Tablet [Januvia] Januvia 25 mg tablet Januvia 25 mg tablet completed sitagliptin 25 MG Oral Tablet [Januvia] [place] ([facility]) Cyclobenzaprine hydrochloride 5 MG Oral Tablet cyclobenzaprine 5 mg tablet TAKE ONE TABLET BY MOUTH THREE TIMES DAILY NEEDED FOR MUSCLE SPASMS cyclobenzaprine 5 mg tablet TAKE ONE TABLET BY MOUTH THREE TIMES DAILY NEEDED FOR MUSCLE SPASMS completed cyclobenzaprine hydrochloride 5 MG Oral Tablet [place] ([facility]) 3 ML Insulin Lispro 100 UNT/ML Pen Injec tor [Humalog] Humalog KwikPen (U-100) Insulin 100 unit/mL subcutaneous Humalog KwikPen (U-100) Insulin 100 unit /mL subcutaneous completed 3 ML insulin lispro 100 UNT/ML Pen Injector [Humalog] [facility]) Cyclobenzaprine hydrochloride 5 MG Oral Tablet cyclobenzaprine 5 mg tablet TAKE ONE TABLET BY MOUTH THREE TIMES DAILY NEEDED FOR MUSCLE SPASMS cyclobenzaprine 5 mg tablet TAKE ONE TABLET BY MOUTH THREE TIMES DAILY NEEDED FOR MUSCLE SPASMS completed cyclobenzaprine hydrochloride 5 MG Oral Tablet [place] ([facility]) 3 ML Insulin Lispro 100 UNT/ML Pen Injec tor [Humalog] Humalog KwikPen (U-100) Insulin 100 unit/mL subcutaneous Humalog KwikPen (U-100) Insulin 100 unit /mL subcutaneous completed 3 ML insulin lispro 100 UNT/ML Pen Injector [Humalog] [place] ([facility]) Cyclobenzaprine hydrochloride 5 [...] completed naproxen 500 MG Oral Tablet [facility] ([facility]) Cyclobenzaprine hydrochloride 5 MG Oral [...] completed gabapentin 300 MG Oral Capsule [facility] ([facility]) 1.5 ML Insulin Glargine 300 [...] ora l solution MX AND DRK UTD [id number] completed Suprep Bowel Prep Kit 17.5 gram-3.13 gram-1.6 gram oral solution [facility] ([facility]) 0.5 ML dulaglutide 1.5 MG/ML Auto-Inject or [Trulicity] Trulicity 0.75 mg/0.5 mL subcutaneous pen injector Trulicity 0.75 mg/0.5 mL subcutaneous pen injector completed 0.5 ML dulaglu tide 1.5 MG/ML Auto-Injector [Trulicity] [place] ([facility]) gabapentin 300 MG Oral Capsule gabapenti n 300 mg capsule TAKE 1 CAPSULE BY MOUTH THREE TIMES DAILY gabapentin 300 mg capsule TAKE 1 CAPSULE BY MOUTH THREE TIMES DAILY completed gabapentin 300 MG Oral Capsule [place] ([facility]) Naproxen 500 MG Oral Tablet naproxen 500 mg tablet TK 1 T PO BID P naproxen 500 mg tablet TK 1 T PO BID P completed naproxen 500 MG Oral Tablet [facility] ([facility]) atorvastatin 20 MG Oral Tablet [...] dulaglu tide 1.5 MG/ML Auto-Injector [Trulicity] [place] ([facility]) Suprep Bowel Prep Kit 17.5 gram-3.13 gram-1.6 gram ora l solution MX AND DRK UTD [id number] completed Suprep Bowel Prep Kit 17.5 gram-3.13 gram-1.6 gram oral solution [facility] ([facility]) 3 ML [...] dulaglu tide 1.5 MG/ML Auto-Injector [Trulicity] [place] ([facility]) Cyclobenzaprine hydrochloride 5 MG Oral [...] DAILY completed gabapentin 300 MG Oral Capsule [place] ([facility]) Cyclobenzaprine hydrochloride 5 MG Oral [...] ora l solution MX AND DRK UTD 668693 completed Suprep Bowel Prep Kit 17.5 gram-3.13 gram-1.6 gram oral solution [facility] ([facility]) gabapentin 300 MG Oral Capsule gabapenti n 300 mg capsule TAKE 1 CAPSULE BY MOUTH THREE TIMES DAILY gabapentin 300 mg capsule TAKE 1 CAPSULE BY MOUTH THREE TIMES DAILY completed gabapentin 300 MG Oral Capsule [place] ([facility]) OneTouch Verio test strips U UTD TO TEST TID 134664 completed OneTouch Verio test strips [place] ([facility]) Insurance Providers Payer name Policy type / Coverage type Policy ID Covered democrat ID Covered democrat's relationship to cortes Policy [place] Plan Information MEDICARE A [id number] Self [id number] A MEDICARE [id number] [place] [id number] Medicare P [id number] S [id number] A Medicaid S [id number] S [id number] Medicaid S [id number] S [id number] MEDICAID M [id number] Self [id number] MEDICAID [id number] [place] [id number] MEDICAID -PHYSICIAN [id number] [place] [id number] SP [id number] Medicare P [id number] S [id number] A MEDICAID [id number] SP [id number] MEDICARE CO [id number] 18 [id number] MEDICAID -RECURRING [id number] MEDICARE -RECURRING [id number] 18 [id number] MEDICAID [place] [facility] [id number] MEDICARE PART A [facility] [id number] 18 [id number] Medicare Commercial [id number] Self [id number] Medicaid Commercial [id number] Self [id number] Medicare Part A [place] Medicare Primary [id number] Self [id number] Medicaid Commercial [id number] Self [id number] Medicare Commercial [id number] Self [id number] Medicaid Commercial [id number] Self [id number] Medicare Part A [place] Primary [id number] Self [id number] Medicaid Commercial [id number] Self [id number] Medicare Commercial [id number] Self [id number] Medicaid Commercial [id number] Self [id number] Medicare Part A [place] Medicare Primary [id number] Self [id number] Medicaid Commercial [id number] Self [id number] Medicare Dme Medigap Part B [id number] Self [id number] Medicaid Medicaid [id number] Self [id number] Medicare Medicare Primary [id number] Self [id number] Medicare Dme Medigap Part B [id number] Self [id number] Medicaid Medicaid [id number] Self [id number] Medicare Medicare Primary [id number] Self [id number] Medicare Dme Medigap Part B [id number] Self [id number] Medicaid Medicaid [id number] Self [id number] Medicare Medicare Primary [id number] Self [id number] Medicaid [facility] Part B [id number] [id number] Self [id number] [place] Primary [id number] Self [id number] Medicaid Commercial [id number]. 0 Self [id number] Medicare Commercial [id number] 64.0 Self [id number] Medicaid Commercial [id number] Self [id number] Medicare Part A [place] Medicare Primary [id number] Self [id number] Medicaid [place] Medigap Part B [id number] .[id number] Self [id number] [place] Primary [id number] [id number] Self [id number] Medicare Commercial [id number] [id number] 64.0 Self [id number] Medicaid Commercial [id number] 2.16.840.1.373749.3.227.99.510.02639. 0 Self [id number] Medicaid Commercial [id number] Self [id number] Medicare Part A [place] Primary [id number] [id number] Self [id number] Medicare Commercial [id number] 2.16.840.1.639808.3.227.99.510.154 64.0 Self [id number] Medicaid Commercial [id number] 2.16.840.1.127874.3.227.99.510.66095. 0 Self [id number] Medicaid Commercial [id number] [id number] Self [id number] Medicare Part A [place] Medicare Primary [id number] Self [id number] Medicare Commercial [id number] [age] Self [id number] Medicaid Commercial [id number]. 0 Self [id number] Medicaid Commercial [id number] Self [id number] [place] [id number] Self [id number] Medicare Commercial [id number]9.510.154 [age] Self [id number] Medicaid Commercial [id number]9.510.94570. 0 Self [id number] Medicaid Commercial [id number] 2.16.840.1.202589.3.227.99.510.93771.0 Self [id number] Medicare Part [place] Medicare [place] [id number] 2.16.840.1.711807.3.227.99.510.24505.0 Self 9 [id number] Medicaid [facility] Medicaid [id number] 2.16.840.1.619223.3.22 7.99.510.05890.0 Self [id number] [place] [id number] 2.16.840.1.366635.3.227.99.510.16929.0 Self 9 [id number] Medicaid [facility] Medicaid [id number] 2.16.840.1.463794.3.22 7.99.510.97950.0 Self [id number] Medicare Part A [place] Medicare Primary [id number] 2.16.840.1.679357.3.227.99.510.01060.0 Self 9 [id number] Medicaid [facility] Medicaid [id number] 2.16.840.1.418988.3.22 7.99.510.70430.0 Self [id number] Medicare [place] [id number] 2.16.840.1.989929.3.227.99.510.20867.0 Self 9 [id number] Medicaid [facility] Medicaid [id number] 2.16.840.1.416301.3.22 7.99.510.58975.0 Self [id number] Medicare [place] [id number] 2.16.840.1.521037.3.227.99.510.78388.0 Self 9 [id number] Medicaid [facility] Medicaid [id number] 2.16.840.1.207778.3.22 7.99.510.83318.0 Self [id number] Medicare [place] [id number] 2.16.840.1.534240.3.227.99.510.93475.0 Self 9 [id number] Medicaid [facility] Medicaid [id number] 2.16.840.1.039885.3.22 7.99.510.02426.0 Self [id number] Medicare [place] [id number] 2.16.840.1.621445.3.227.99.510.53703.0 Self 9 [id number] Medicaid [facility] Medicaid [id number] 2.16.840.1.015745.3.22 7.99.510.14759.0 Self [id number] Medicare [place] [id number] 2.16.840.1.118773.3.227.99.510.27949.0 Self 9 [id number] MEDICARE [id number] A Medicaid [place] Medigap Part B [id number] 2.16.840.1.148298.3.227.99 .6619.46212.0 Self [id number] [place] [id number] 2.16840.1.395663.3.227.99.6619.31595.0 Self [id number] Medicaid [facility] [place] [id number] 2.16.840.1.443178.3.22 7.99.510.36989.0 Self [id number] Medicare [place] [id number] 2.16840.1.991719.3.227.99.510.52153.0 Self 9 [id number] MEDICARE PART A -O/P [id number] Medicaid [facility] Medicaid [id number] 2.16.840.1.666053.3.22 7.99.510.72707.0 Self [id number] Medicare [place] [id number] 2.16.840.1.294039.3.227.99.510.36679.0 Self 9 [id number] Medicaid [facility] Medicaid [id number] 2.16.840.1.964877.3.22 7.99.510.05276.0 Self [id number] Medicare Part [place] [id number] 2.16.840.1.061476.3.227.99.510.04129.0 Self 9 [id number] Medicaid [facility] Medicaid [id number] 2.16.840.1.025060.3.22 7.99.510.03684.0 Self [id number] Medicare Part [place] [id number] 2.16.840.1.717879.3.227.99.510.67478.0 Self 9 [id number] Medicaid [facility] Medicaid [id number] 2.16.840.1.108764.3.22 7.99.510.76676.0 Self [id number] Medicare Part [place] Primary [id number] 2.16.840.1.562977.3.227.99.510.79571.0 Self 1 [id number] Medicaid [facility] Medicaid [id number] 2.16.840.1.684529.3.22 7.99.510.28356.0 Self [id number] Medicare Part [place] [id number] 2.16.840.1.145241.3.227.99.510.70135.0 Self 1 [id number] Medicaid [facility] Medicaid [id number] 2.16.840.1.720205.3.22 7.99.510.49862.0 Self [id number] Medicare Part [place] Medicare Primary [id number] 2.16.840.1.870338.3.227.99.510.35462.0 Self 1 [id number] Medicaid [facility] Medicaid [id number] 2.16.840.1.117801.3.22 7.99.510.36798.0 Self [id number] Medicare Part A [place] Medicare Primary [id number] 2.16.840.1.448847.3.227.99.510.18375.0 Self 1 [id number] Medicare Dme Medigap Part B [id number] 2.16.840.1.853263.3.227.99 .936.28190.0 Self [id number] Medicaid Medicaid [id number] 2.16.840.1.662217.3.227.99.936.67708.0 S elf [id number] Medicare Medicare Primary [id number] 2.840.1.845045.3.227. 99.936.19199.0 Self [id number] Medicare Dme Medigap Part B [id number] 2.840.1.860145.3.227.99 .936.34919.0 Self [id number] Medicaid Medicaid [id number] 2.840.1.224964.3.227.99.936.30976.0 S elf [id number] Medicare Medicare Primary [id number] 2.840.1.239013.3.227. 99.936.10310.0 Self [id number] Medicare Dme Medigap Part B [id number] 840.1.804479.3.227.99 .936.59365.0 Self [id number] Medicaid Medicaid [id number] 2.840.1.900637.3.227.99.936.07533.0 S elf [id number] Medicare Medicare Primary [id number] 2.840.1.929669.3.227. 99.936.63781.0 Self [id number] Medicare Dme Medigap Part B [id number] 840.1.979512.3.227.99 .936.90008.0 Self [id number] Medicaid Medicaid [id number] 2.840.1.949189.3.227.99.936.90064.0 S elf [id number] Medicare Medicare Primary [id number] 2.840.1.115151.3.227. 99.936.04606.0 Self [id number] Medicare Dme Medigap Part B [id number] .840.1.034272.3.227.99 .936.46309.0 Self [id number] Medicaid Medicaid [id number] 2.840.1.116625.3.227.99.936.19624.0 S elf [id number] Medicare Medicare Primary [id number] 2.16.840.1.779898.3.227. 99.936.44536.0 Self [id number] Medicare Dme Medigap Part B [id number] 2.16.840.1.684959.3.227.99 .936.58209.0 Self [id number] Medicaid Medicaid [id number] 2.16.840.1.964163.3.227.99.936.08861.0 S elf [id number] Medicare Medicare Primary [id number] 2.16.840.1.628365.3.227. 99.936.41924.0 Self [id number] Medicaid Medicaid 2.16.840.1.082163.3.227.99.936.91158.0 S elf Medicare Medicare Primary 2.16.840.1.966739.3.227.99.936.23 302.0 Self HMO BLUE [id number] SP [id number] BLUE CROSS SAAVEDRA PLAN [id number] SP [id number] MEDICAID S [id number] S [id number] MEDICARE P [id number] S [id number] A HMO BLUE [id number] SP [id number] [facility] [employer] [facility] PLUS [id number] SP [id number] HEALTH WELFARE BENEFIT SYS [id number] SP [id number] [facility] MEDICAID [id number] SP [id number] U [id number] MEDICARE [id number] MEDICARE PART A -O/P [id number] 18 [id number] MEDICAID -O/P [id number] 18 [id number] [place] [id number] 18 [id number] MEDICARE PART A [facility] [id number] 18 [id number] [place] [id number] 18 [id number] Problems, Conditions, and Diagnoses Code Display Name Description Problem Type Effective Dates Data Source(s) M542 Cervicalgia Cervicalgia Diagnosis 03/11/2021 02:01:00 PM EDT [facility] F43.9 Reaction to severe stress, unspecified 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 06/28/2021 12:00:00 AM EDT [facility] ([facility]) 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 Unspecified Schizophrenia Spectrum and Other Psychotic Disorder Condition 06/28/2021 12:00:00 AM EDT [facility] ([facility]) [id number] Cervical radiculopathy Cervical radiculopathy Problem 03/25/2021 12:00:00 AM EDT [facility] ([facility], ) E11.9 Type 2 diabetes mellitus Type 2 diabetes mellitus Prob allan 03/20/2021 12:00:00 AM EDT [facility] ([facility] M21.619 Bunion Bunion Problem 03/20/2021 12:00:00 AM ED T [facility] ([facility] [id number] SNOMED CT Concept SNOMED CT Concept Problem 01/09 12:00:00 AM EST - 02/15/2021 12:00:00 AM EDT [facility] ([facility]) [id number] Finding of urine substance level Finding of Urin e Substance Level Problem 01/09/2018 12:00:00 AM EST - 09/30/2020 12:00:00 AM JENNIFER MENDEZ ([facility]) [id number] SNOMED CT Concept SNOMED CT Concept Problem 01/09 12:00:00 AM EST - 02/15/2021 12:00:00 AM EDT [facility] ([facility]) [id number] Finding of urine substance level Finding of Urin e Substance Level Problem 01/09/2018 12:00:00 AM EST - 09/30/2020 12:00:00 AM JENNIFER MENDEZ ([facility]) [id number] SNOMED CT Concept SNOMED CT Concept Problem 01/09 12:00:00 AM EST - 02/15/2021 12:00:00 AM EDT [facility] ([facility]) [id number] Finding of urine substance level Finding of Urin e Substance Level Problem 01/09/2018 12:00:00 AM EST - 09/30/2020 12:00:00 AM JENNIFER MENDEZ ([facility]) [id number] SNOMED CT Concept SNOMED CT Concept Problem 01/09 12:00:00 AM EST - 02/15/2021 12:00:00 AM EDT [facility] ([facility]) [id number] Finding of urine substance level Finding of Urin e Substance Level Problem 01/09/2018 12:00:00 AM EST - 09/30/2020 12:00:00 AM JENNIFER Villegas [facility] ([facility]) 355288715 SNOMED CT Concept SNOMED CT Concept Problem 01/09 12:00:00 AM EST - 02/15/2021 12:00:00 AM EDT [facility] ([facility]) [id number] Finding of urine substance level Finding of Urin e Substance Level Problem 01/09/2018 12:00:00 AM EST - 09/30/2020 12:00:00 AM JENNIFER Bakari [facility] ([facility]) 612694833 SNOMED CT Concept SNOMED CT Concept Problem 01/09 12:00:00 AM EST - 02/15/2021 12:00:00 AM EDT [facility] ([facility]) [id number] Finding of urine substance level Finding of Urin e Substance Level Problem 01/09/2018 12:00:00 AM EST - 09/30/2020 12:00:00 AM JENNIFER Bakari [facility] ([facility]) [id number] SNOMED CT Concept SNOMED CT Concept Problem 01/09 12:00:00 AM EST - 02/15/2021 12:00:00 AM EDT [facility] ([facility]) [id number] Finding of urine substance level Finding of Urin e Substance Level Problem 01/09/2018 12:00:00 AM EST - 09/30/2020 12:00:00 AM JENNIFER MENDEZ ([facility]) [id number] SNOMED CT Concept SNOMED CT Concept Problem 01/09 12:00:00 AM EST - 02/15/2021 12:00:00 AM EDT [facility] ([facility]) [id number] Finding of urine substance level Finding of Urin e Substance Level Problem 01/09/2018 12:00:00 AM EST - 09/30/2020 12:00:00 AM JENNIFER MENDEZ ([facility]) [id number] Finding of urine substance level Finding of Urin e Substance Level Problem 01/09/2018 12:00:00 AM EST - 09/30/2020 12:00:00 AM JENNIFER MENDEZ ([facility]) 836828280 SNOMED CT Concept SNOMED CT Concept Problem 01/09 12:00:00 AM EST - 02/15/2021 12:00:00 AM EDT [facility] ([facility]) [id number] Finding of urine substance level Finding of Urin e Substance Level Problem 01/09/2018 12:00:00 AM EST - 09/30/2020 12:00:00 AM JENNIFER MENDEZ ([facility]) 731774234 SNOMED CT Concept SNOMED CT Concept Problem 01/09 12:00:00 AM EST - 02/15/2021 12:00:00 AM EDT [facility] ([facility]) 937825413 Finding of urine substance level Finding of Urin e Substance Level Problem 01/09/2018 12:00:00 AM EST - 09/30/2020 12:00:00 AM JENNIFER MENDEZ ([facility]) 756229911 Renal function tests abnormal Renal Function Tests Abn ormal Problem 03/03/2016 12:00:00 AM EDT - 03/10/2021 12:00:00 AM EDT [facility] ([facility]) 213763985 Renal function tests abnormal Renal Function Tests Abn ormal Problem 03/03/2016 12:00:00 AM EDT - 03/10/2021 12:00:00 AM EDT [facility] ([facility]) 886459713 Renal function tests abnormal Renal Function Tests Abn ormal Problem 03/03/2016 12:00:00 AM EDT - 03/10/2021 12:00:00 AM EDT [facility] ([facility]) 888767412 Renal function tests abnormal Renal Function Tests Abn ormal Problem 03/03/2016 12:00:00 AM EDT - 03/10/2021 12:00:00 AM EDT [facility] ([facility]) 432199096 Renal function tests abnormal Renal Function Tests Abn ormal Problem 03/03/2016 12:00:00 AM EDT - 03/10/2021 12:00:00 AM EDT [facility] ([facility]) 485626686 Renal function tests abnormal Renal Function Tests Abn ormal Problem 03/03/2016 12:00:00 AM EDT - 03/10/2021 12:00:00 AM EDT [facility] ([facility]) [id number] Renal function tests abnormal Renal Function Tests Abn ormal Problem 03/03/2016 12:00:00 AM EDT - 03/10/2021 12:00:00 AM EDT [facility] ([facility]) 273762614 SNOMED CT Concept SNOMED CT Concept Problem 02/02 12:00:00 AM EDT - 02/15/2021 12:00:00 AM EDT [facility] ([facility]) [id number] Clinical finding Clinical Finding Problem 016 12:00:00 AM EDT - 02/15/2021 12:00:00 AM EDT [facility] ([facility]) 990089651 SNOMED CT Concept SNOMED CT Concept Problem 02/02 12:00:00 AM EDT - 09/30/2020 12:00:00 AM EST [facility] ([facility]) [id number] Procedure by method Procedure by Method Problem 0 02/03/2016 12:00:00 AM EDT - 09/30/2020 12:00:00 AM EST [facility] ([facility]) [id number] Difficulty passing urine Difficulty Passing Urine Prob allan 02/03/2016 12:00:00 AM EDT - 09/30/2020 12:00:00 AM EST [facility] ([facility]) 187928137 SNOMED CT Concept SNOMED CT Concept Problem 02/02 12:00:00 AM EDT - 02/15/2021 12:00:00 AM EDT [facility] ([facility]) [id number] Clinical finding Clinical Finding Problem 016 12:00:00 AM EDT - 02/15/2021 12:00:00 AM EDT [facility] ([facility]) 792124588 SNOMED CT Concept SNOMED CT Concept Problem 02/02 12:00:00 AM EDT - 09/30/2020 12:00:00 AM EST [facility] ([facility]) [id number] Procedure by method Procedure by Method Problem 0 02/03/2016 12:00:00 AM EDT - 09/30/2020 12:00:00 AM EST [facility] ([facility]) 207178469 Difficulty passing urine Difficulty Passing Urine Prob allan 02/03/2016 12:00:00 AM EDT - 09/30/2020 12:00:00 AM EST [facility] ([facility]) 813857676 SNOMED CT Concept SNOMED CT Concept Problem 02/02 12:00:00 AM EDT - 02/15/2021 12:00:00 AM EDT [facility] ([facility]) 468810523 Clinical finding Clinical Finding Problem 016 12:00:00 AM EDT - 02/15/2021 12:00:00 AM EDT [facility] ([facility]) [id number] SNOMED CT Concept SNOMED CT Concept Problem 02/02 12:00:00 AM EDT - 09/30/2020 12:00:00 AM EST [facility] ([facility]) [id number] Procedure by method Procedure by Method Problem 0 02/03/2016 12:00:00 AM EDT - 09/30/2020 12:00:00 AM EST [facility] ([facility]) 982510151 Difficulty passing urine Difficulty Passing Urine Prob allan 02/03/2016 12:00:00 AM EDT - 09/30/2020 12:00:00 AM EST [facility] ([facility]) 064462086 SNOMED CT Concept SNOMED CT Concept Problem 02/02 12:00:00 AM EDT - 02/15/2021 12:00:00 AM EDT [facility] ([facility]) [id number] Clinical finding Clinical Finding Problem 016 12:00:00 AM EDT - 02/15/2021 12:00:00 AM EDT [facility] ([facility]) 845772615 SNOMED CT Concept SNOMED CT Concept Problem 02/02 12:00:00 AM EDT - 09/30/2020 12:00:00 AM EST [facility] ([facility]) [id number] Procedure by method Procedure by Method Problem 0 02/03/2016 12:00:00 AM EDT - 09/30/2020 12:00:00 AM EST [facility] ([facility]) 674378812 Difficulty passing urine Difficulty Passing Urine Prob allan 02/03/2016 12:00:00 AM EDT - 09/30/2020 12:00:00 AM EST [facility] ([facility]) 269664033 SNOMED CT Concept SNOMED CT Concept Problem 02/02 12:00:00 AM EDT - 02/15/2021 12:00:00 AM EDT [facility] ([facility]) [id number] Clinical finding Clinical Finding Problem 016 12:00:00 AM EDT - 02/15/2021 12:00:00 AM EDT [facility] ([facility]) 024615804 SNOMED CT Concept SNOMED CT Concept Problem 02/02 12:00:00 AM EDT - 09/30/2020 12:00:00 AM EST [facility] ([facility]) 292280166 Procedure by method Procedure by Method Problem 0 02/03/2016 12:00:00 AM EDT - 09/30/2020 12:00:00 AM EST [facility] ([facility]) 868403771 Difficulty passing urine Difficulty Passing Urine Prob allan 02/03/2016 12:00:00 AM EDT - 09/30/2020 12:00:00 AM EST [facility] ([facility]) 280496027 SNOMED CT Concept SNOMED CT Concept Problem 02/02 12:00:00 AM EDT - 02/15/2021 12:00:00 AM EDT [facility] ([facility]) [id number] Clinical finding Clinical Finding Problem 016 12:00:00 AM EDT - 02/15/2021 12:00:00 AM EDT [facility] ([facility]) 233739401 SNOMED CT Concept SNOMED CT Concept Problem 02/02 12:00:00 AM EDT - 09/30/2020 12:00:00 AM EST [facility] ([facility]) [id number] Procedure by method Procedure by Method Problem 0 02/03/2016 12:00:00 AM EDT - 09/30/2020 12:00:00 AM EST [facility] ([facility]) 085262572 Difficulty passing urine Difficulty Passing Urine Prob allan 02/03/2016 12:00:00 AM EDT - 09/30/2020 12:00:00 AM EST [facility] ([facility]) 893152405 Difficulty passing urine Difficulty Passing Urine Prob allan 02/03/2016 12:00:00 AM EDT - 09/30/2020 12:00:00 AM EST [facility] ([facility]) 154501837 SNOMED CT Concept SNOMED CT Concept Problem 02/02 12:00:00 AM EDT - 02/15/2021 12:00:00 AM EDT [facility] ([facility]) 534581780 Clinical finding Clinical Finding Problem 016 12:00:00 AM EDT - 02/15/2021 12:00:00 AM EDT [facility] ([facility]) 583307286 SNOMED CT Concept SNOMED CT Concept Problem 02/02 12:00:00 AM EDT - 09/30/2020 12:00:00 AM EST [facility] ([facility]) [id number] Procedure by method Procedure by Method Problem 0 02/03/2016 12:00:00 AM EDT - 09/30/2020 12:00:00 AM EST [facility] ([facility]) 233691974 Difficulty passing urine Difficulty Passing Urine Prob allan 02/03/2016 12:00:00 AM EDT - 09/30/2020 12:00:00 AM EST [facility] ([facility]) 615067216 SNOMED CT Concept SNOMED CT Concept Problem 02/02 12:00:00 AM EDT - 09/30/2020 12:00:00 AM EST [facility] ([facility]) [id number] Procedure by method Procedure by Method Problem 0 02/03/2016 12:00:00 AM EDT - 09/30/2020 12:00:00 AM EST [facility] ([facility]) 998037385 Difficulty passing urine Difficulty Passing Urine Prob allan 02/03/2016 12:00:00 AM EDT - 09/30/2020 12:00:00 AM EST [facility] ([facility]) 547144895 SNOMED CT Concept SNOMED CT Concept Problem 02/02 12:00:00 AM EDT - 02/15/2021 12:00:00 AM EDT [facility] ([facility]) [id number] Clinical finding Clinical Finding Problem 016 12:00:00 AM EDT - 02/15/2021 12:00:00 AM EDT [facility] ([facility]) 598209648 SNOMED CT Concept SNOMED CT Concept Problem 02/02 12:00:00 AM EDT - 09/30/2020 12:00:00 AM EST [facility] ([facility]) 299742583 Procedure by method Procedure by Method Problem 0 02/03/2016 12:00:00 AM EDT - 09/30/2020 12:00:00 AM EST [facility] ([facility]) [id number] Difficulty passing urine Difficulty Passing Urine Prob allan 02/03/2016 12:00:00 AM EDT - 09/30/2020 12:00:00 AM EST [facility] ([facility]) 033140768 SNOMED CT Concept SNOMED CT Concept Problem 02/02 12:00:00 AM EDT - 02/15/2021 12:00:00 AM EDT [facility] ([facility]) 569098831 Clinical finding Clinical Finding Problem 016 12:00:00 AM EDT - 02/15/2021 12:00:00 AM EDT [facility] ([facility]) 881091893 SNOMED CT Concept SNOMED CT Concept Problem 02/02 12:00:00 AM EDT - 09/30/2020 12:00:00 AM EST [facility] ([facility]) 591014136 Procedure by method Procedure by Method Problem 0 02/03/2016 12:00:00 AM EDT - 09/30/2020 12:00:00 AM EST [facility] ([facility]) 852297204 Difficulty passing urine Difficulty Passing Urine Prob allan 02/03/2016 12:00:00 AM EDT - 09/30/2020 12:00:00 AM KAREEM MENDEZ ([facility]) 887823621 SNOMED CT Concept SNOMED CT Concept Problem 02/02 12:00:00 AM EDT - 02/15/2021 12:00:00 AM EDT [facility] ([facility]) 642790890 Clinical finding Clinical Finding Problem 016 12:00:00 AM EDT - 02/15/2021 12:00:00 AM EDT [facility] ([facility]) 954507861 SNOMED CT Concept SNOMED CT Concept Problem 02/02 12:00:00 AM EDT - 09/30/2020 12:00:00 AM KAREEM MENDEZ ([facility]) [id number] Procedure by method Procedure by Method Problem 0 02/03/2016 12:00:00 AM EDT - 09/30/2020 12:00:00 AM KAREEM MENDEZ ([facility]) Surgeries/Procedures Procedure Description Date Indications Data Source(s) Extended Individual Psychotherapy - 45 min 06/28/2021 12:00:00 AM EDT - 06/28/2021 12:00:00 AM EDT [facility] ([facility]) Extended Individual Psychotherapy - 45 min 12:00:00 AM EDT [facility] ([facility]) Telemed Diagnostic Eval 06/07/2021 12:00 :00 AM EDT - 06/07/2021 12:00:00 AM EDT [facility] ([facility]) Telemed Diagnostic Eval 06/07/2021 12:00:00 AM EDT [facility] ([facility]) OFFICE OUTPATIENT VISIT 25 MINUTES 05/10/2021 12:00:00 AM EDT [facility] ([facility] ) MRI SPINAL CANAL CERVICAL W/O CONTRAST MATRL 12:00:00 AM EDT [facility] ([facility] ) MRI SPINAL CANAL CERVICAL W/O CONTRAST MATRL 12:00:00 AM EDT [facility] ([facility] ) OFFICE OUTPATIENT VISIT 25 MINUTES 04/07/2021 12:00:00 AM EDT [facility] ([facility] ) OFFICE OUTPATIENT VISIT 15 MINUTES 04/06/2021 12:00:00 AM EDT [facility] ([facility]) Needle electromyography, each extremity, with related paraspinal areas, when performed, done with nerve conduction, amplitude and latency/velocity study; complete, five or more muscles studied, innervated by three or more nerves or four or more spinal levels (list separately in addition to the code for primary procedure). 03/28/2021 12:00:00 AM EDT MEDEN T ([facility], ) Needle Electromyography Non Extremity Done With Nerve Conduc tion 03/28/2021 12:00:00 AM EDT [facility] ([facility] ) Needle Electromyography Non Extremity Done With Nerve Conduc tion 03/28/2021 12:00:00 AM EDT [facility] ([facility] ) Nerve Conduction 11-12 Studies 03/28/2021 12:00:00 AM EDT [facility] ([facility] ) OFFICE OUTPATIENT NEW 30 MINUTES 03/11/2021 12:00:00 A M EDT [facility] ([facility]) Results ID Date Data Source [id number] 09/07/2021 08:50:00 AM EDT [facility] ([facility]) Name Value Range Interpretation Code Description Data Sandra rce(s) Supporting Document(s) Color of Urine Laboratory test result [facility] ([facility]) Appearance of Urine Laboratory test result [facility] ([facility]) Spec [place] 1.010 1.001-1.030 [facility] ([facility]) Leukocytes Laboratory test result [facility] ([facility]) pH of Urine by Test strip 5 5-9 MEDE NT ([facility]) Nitrate [Presence] in Urine Laboratory test result [facility] ([facility]) Protein [Presence] in Urine by Test strip Laboratory test result [facility] ([facility]) Inhouse Glucose 1000 Above high normal ME DENT ([facility]) Ketones [Presence] in Urine by Test strip Laboratory test result [facility] ([facility]) Bilirubin.total [Presence] in Urine by Test strip Laboratory test res ult [facility] ([facility]) Urobilinogen Laboratory [facility]) Blood type and Indirect antibody screen panel - Blood 250 Above high normal [facility] ([facility]) ID Date Data Source [id number] 07/06/2021 12:00:00 AM EDT [place] ([facility]) Name Value Range Interpretation Code Description Data Sandra rce(s) Supporting Document(s) Bacteria identified in Urine by Culture Reflexive Urine Culture [place] ([facility]) ID Date Data Source [id number] 07/06/2021 12:00:00 AM EDT [facility]) Name Value Range Interpretation Code Description Data Sandra rce(s) Supporting Document(s) Specific gravity of Urine by Test strip 1.001-1.035 A eddie high normal Specific [place] ([facility]) Appearance of Urine clear clear Appearance ATHEN A ([facility]) Color of Urine yellow yellow Color VANESSA ([facility]) Glucose [Presence] in Urine by Test strip 3+ negati ve Abnormal (applies to non- numeric results) Glucose VANESSA ([facility]) Bilirubin.total [Presence] in Urine by Test strip negative negative Bilirubin VANESSA ([facility]) Ketones [Presence] in Urine by Test strip negative negative Ketones VANESSA ([facility]) pH of Urine by Test strip 5.0-8.0 Ph VANESSA ([facility]) Protein [Presence] in Urine by Test strip negative negative Protein VANESSA ([facility]) Hemoglobin [Presence] in Urine by Test strip negative negative Occult Blood VANESSA ([facility]) Nitrite [Presence] in Urine by Test strip negative negative Nitrite VANESSA ([facility]) Leukocyte esterase [Presence] in Urine by Test strip negative n egative Leukocyte Esterase VANESSA ([facility]) Bacteria [#/area] in Urine sediment by Microscopy high power field none seen none seen Bacteria VANESSA ([facility]) Epithelial cells.squamous [#/area] in Ur ine sediment by Microscopy high power field none seen < or = 5 Squamous Epithelial Cells AT [facility]) Erythrocytes [#/area] in Urine sediment by Microscopy high power field none seen < or = 2 Rbc VANESSA ([facility]) Leukocytes [#/area] in Urine sediment by Microscopy high pow er field none seen < or = 5 Wbc VANESSA ([facility]) Hyaline casts [#/area] in Urine sediment by Microscopy low power field none seen none seen Hyaline Cast VANESSA ([facility]) ID Date Data Source [id number] 07/06/2021 12:00:00 AM EDT [facility]) Name Value Range Interpretation Code Description Data Sandra rce(s) Supporting Document(s) Urea nitrogen [Mass/volume] in Serum or Plasma 15 mg/dL 7-25 Urea Nitrogen (BUN) VANESSA ([facility]) Glucose [Mass/volume] in Serum or Plasma 308 mg/dL 65-99 Above high normal Glucose VANESSA ([facility]) Creatinine [Mass/volume] in Serum or Plasma 0.93 mg/dL 0.70-1.33 Creatinine [facility]) Glomerular filtration rate/1.73 sq M.pre dicted among non-blacks [Volume Rate/Area] in Serum, Plasma or Blood by Creatinine-based formula (CKD-EPI) 95 mL/min/1.73m2 > or = 60 eGFR Non-afr. [place] VANESSA ([facility]) Glomerular filtration rate/1.73 sq M.pre dicted among blacks [Volume Rate/Area] in Serum, Plasma or Blood by Creatinine-based formula (CKD-EPI) 110 mL/min/1.73m2 > or = 60 eGFR VANESSA ([facility]) Sodium [Moles/volume] in Serum or Plasma 135 mmol/L 135-146 Sodium [facility]) Chloride [Moles/volume] in Serum or Plasma 102 mmol/L 98-110 Chloride [place] ([facility]) Urea nitrogen/Creatinine [Mass Ratio] in Serum or Plasma not applic able 6-22 BUN/creatinine Ratio VANESSA ([facility]) Potassium [Moles/volume] in Serum or Plasma 4.0 mmol/L 3.5-5.3 Potassium VANESSA ([facility]) Carbon dioxide, total [Moles/volume] in Serum or Plasma 27 mmol/L 20-32 Carbon Dioxide VANESSA ([facility]) Protein [Mass/volume] in Serum or Plasma 6.8 g/dL 6.1-8.1 Protein, Total VANESSA ([facility]) Calcium [Mass/volume] in Serum or Plasma 8.9 mg/dL 8.6-10.3 Calcium VANESSA ([facility]) Globulin [Mass/volume] in Serum by calculation 2.7 g/dL_(calc) 1.9- 3.7 Globulin VANESSA ([facility]) Albumin [Mass/volume] in Serum or Plasma 4.1 g/dL 3.6-5.1 Albumin VANESSA ([facility]) Bilirubin.total [Mass/volume] in Serum or Plasma 0.9 mg/dL 0.2-1 .2 Bilirubin, Total VANESSA ([facility]) Albumin/Globulin [Mass Ratio] in Serum or Plasma 1.5 (calc) 1.0-2 .5 Albumin/globulin Ratio VANESSA ([facility]) Alanine aminotransferase [Enzymatic activity/volume] in Seru m or Plasma 15 U/L 9-46 Alt VANESSA ([facility]) Aspartate aminotransferase [Enzymatic activity/volume] in Se rum or Plasma 9 U/L 10-35 Below low normal Ast VANESSA ([facility]) Alkaline phosphatase [Enzymatic activity/volume] in Serum or Plasma 73 U/L 35-144 Alkaline Phosphatase VANESSA ([facility]) ID Date Data Source [id number] 07/06/2021 12:00:00 AM EDT VANESSA ([facility]) Name Value Range Interpretation Code Description Data Sandra rce(s) Supporting Document(s) Cholesterol in HDL [Mass/volume] in Serum or Plasma 38 mg/dL > or = 40 Below low normal HDL Cholesterol VANESSA ([facility]) Cholesterol [Mass/volume] in Serum or Plasma 114 mg/dL <200 Cholesterol, Total VANESSA ([facility]) Cholesterol.total/Cholesterol in HDL [Mass Ratio] in Serum o r Plasma 3.0 (calc) <5.0 Chol/hdlc Ratio VANESSA ([facility]) Cholesterol in LDL [Mass/volume] in Serum or Plasma by calculation 49 mg/dL_(calc) LDL-cholesterol VANESSA ([facility]) Triglyceride [Mass/volume] in Serum or Plasma 208 mg/dL <150 Above high normal Triglycerides VANESSA ([facility]) Cholesterol non HDL [Mass/volume] in Serum or Plasma 76 mg/dL_(calc ) <130 Non HDL Cholesterol VANESSA ([facility]) ID Date Data Source [id number] 07/06/2021 12:00:00 AM EDT [place] ([facility]) Name Value Range Interpretation Code Description Data Sandra rce(s) Supporting Document(s) Bacteria identified in Urine by Culture Reflexive Urine Culture VANESSA ([facility]) ID Date Data Source [id number] 07/06/2021 12:00:00 AM EDT [facility]) Name Value Range Interpretation Code Description Data Sandra rce(s) Supporting Document(s) Color of Urine yellow yellow Color VANESSA ([facility]) Appearance of Urine clear clear Appearance ATHEN A ([facility]) Glucose [Presence] in Urine by Test strip 3+ negati ve Abnormal (applies to non- numeric results) Glucose VANESSA ([facility]) Specific gravity of Urine by Test strip 1.001-1.035 A eddie high normal Specific [place] VANESSA ([facility]) pH of Urine by Test strip 5.0-8.0 Ph VANESSA ([facility]) Bilirubin.total [Presence] in Urine by Test strip negative negative Bilirubin VANESSA ([facility]) Protein [Presence] in Urine by Test strip negative negative Protein VANESSA ([facility]) Hemoglobin [Presence] in Urine by Test strip negative negative Occult Blood VANESSA ([facility]) Ketones [Presence] in Urine by Test strip negative negative Ketones VANESSA ([facility]) Nitrite [Presence] in Urine by Test strip negative negative Nitrite VANESSA ([facility]) Leukocytes [#/area] in Urine sediment by Microscopy high pow er field none seen < or = 5 Wbc VANESSA ([facility]) Leukocyte esterase [Presence] in Urine by Test strip negative n egative Leukocyte Esterase VANESSA ([facility]) Epithelial cells.squamous [#/area] in Ur ine sediment by Microscopy high power field none seen < or = 5 Squamous Epithelial Cells AT [facility]) Hyaline casts [#/area] in Urine sediment by Microscopy low power field none seen none seen Hyaline Cast VANESSA ([facility]) Bacteria [#/area] in Urine sediment by Microscopy high power field none seen none seen Bacteria VANESSA ([facility]) Erythrocytes [#/area] in Urine sediment by Microscopy high power field none seen < or = 2 Rbc VANESSA ([facility]) ID Date Data Source [id number] 07/06/2021 12:00:00 AM EDT [place] ([facility]) Name Value Range Interpretation Code Description Data Sandra rce(s) Supporting Document(s) Glucose [Mass/volume] in Serum or Plasma 308 mg/dL 65-99 Above high normal Glucose VANESSA ([facility]) Urea nitrogen [Mass/volume] in Serum or Plasma 15 mg/dL 7-25 Urea Nitrogen (BUN) VANESSA ([facility]) Urea nitrogen/Creatinine [Mass Ratio] in Serum or Plasma not applic able 6-22 BUN/creatinine Ratio VANESSA ([facility]) Creatinine [Mass/volume] in Serum or Plasma 0.93 mg/dL 0.70-1.33 Creatinine VANESSA ([facility]) Glomerular filtration rate/1.73 sq M.pre dicted among non-blacks [Volume Rate/Area] in Serum, Plasma or Blood by Creatinine-based formula (CKD-EPI) 95 mL/min/1.73m2 > or = 60 eGFR Non-afr. [place] VANESSA ([facility]) Glomerular filtration rate/1.73 sq M.pre dicted among blacks [Volume Rate/Area] in Serum, Plasma or Blood by Creatinine-based formula (CKD-EPI) 110 mL/min/1.73m2 > or = 60 eGFR VANESSA ([facility]) Chloride [Moles/volume] in Serum or Plasma 102 mmol/L 98-110 Chloride VANESSA ([facility]) Potassium [Moles/volume] in Serum or Plasma 4.0 mmol/L 3.5-5.3 Potassium VANESSA ([facility]) Sodium [Moles/volume] in Serum or Plasma 135 mmol/L 135-146 Sodium [place] ([facility]) Carbon dioxide, total [Moles/volume] in Serum or Plasma 27 mmol/L 20-32 Carbon Dioxide VANESSA ([facility]) Calcium [Mass/volume] in Serum or Plasma 8.9 mg/dL 8.6-10.3 Calcium [place] ([facility]) Albumin [Mass/volume] in Serum or Plasma 4.1 g/dL 3.6-5.1 Albumin [place] ([facility]) Globulin [Mass/volume] in Serum by calculation 2.7 g/dL_(calc) 1.9- 3.7 Globulin [place] ([facility]) Protein [Mass/volume] in Serum or Plasma 6.8 g/dL 6.1-8.1 Protein, Total [facility]) Bilirubin.total [Mass/volume] in Serum or Plasma 0.9 mg/dL 0.2-1 .2 Bilirubin, Total [place] ([facility]) Albumin/Globulin [Mass Ratio] in Serum or Plasma 1.5 (calc) 1.0-2 .5 Albumin/globulin Ratio VANESSA ([facility]) Alkaline phosphatase [Enzymatic activity/volume] in Serum or Plasma 73 U/L 35-144 Alkaline Phosphatase VANESSA ([facility]) Aspartate aminotransferase [Enzymatic activity/volume] in Se rum or Plasma 9 U/L 10-35 Below low normal Ast VANESSA ([facility]) Alanine aminotransferase [Enzymatic activity/volume] in Seru m or Plasma 15 U/L 9-46 Alt VANESSA ([facility]) ID Date Data Source [id number] 07/06/2021 12:00:00 AM EDT VANESSA ([facility]) Name Value Range Interpretation Code Description Data Sandra rce(s) Supporting Document(s) Cholesterol in HDL [Mass/volume] in Serum or Plasma 38 mg/dL > or = 40 Below low normal HDL Cholesterol VANESSA ([facility]) Triglyceride [Mass/volume] in Serum or Plasma 208 mg/dL <150 Above high normal Triglycerides VANESSA ([facility]) Cholesterol [Mass/volume] in Serum or Plasma 114 mg/dL <200 Cholesterol, Total VANESSA ([facility]) Cholesterol in LDL [Mass/volume] in Serum or Plasma by calculation 49 mg/dL_(calc) LDL-cholesterol VANESSA ([facility]) Cholesterol.total/Cholesterol in HDL [Mass Ratio] in Serum o r Plasma 3.0 (calc) <5.0 Chol/hdlc Ratio VANESSA ([facility]) Cholesterol non HDL [Mass/volume] in Serum or Plasma 76 mg/dL_(calc ) <130 Non HDL Cholesterol VANESSA ([facility]) ID Date Data Source [id number] 06/28/2021 11:45:00 AM EDT [place] ([facility]) Name Value Range Interpretation Code Description Data Sandra rce(s) Supporting Document(s) Hemoglobin A1c/Hemoglobin.total in Blood 10.4 % Abnormal (applies to non- numeric results) Hba1C [place] ([facility]) ID Date Data Source [id number] 06/28/2021 11:45:00 AM EDT [place] ([facility]) Name Value Range Interpretation Code Description Data Sandra rce(s) Supporting Document(s) Hemoglobin A1c/Hemoglobin.total in Blood 10.4 % Abnormal (applies to non- numeric results) Hba1C VANESSA ([facility]) ID Date Data Source [id number] 06/28/2021 11:45:00 AM EDT [place] ([facility]) Name Value Range Interpretation Code Description Data Sandra rce(s) Supporting Document(s) Hemoglobin A1c/Hemoglobin.total in Blood 10.4 % Abnormal (applies to non- numeric results) Hba1C [place] ([facility]) ID Date Data Source [id number] 06/28/2021 11:45:00 AM EDT VANESSA ([facility]) Name Value Range Interpretation Code Description Data Sandra rce(s) Supporting Document(s) Hemoglobin A1c/Hemoglobin.total in Blood 10.4 % Abnormal (applies to non- numeric results) Hba1C [place] ([facility]) ID Date Data Source [id number] 04/25/2021 08:05:00 AM EDT [facility]) Name Value Range Interpretation Code Description Data Sandra rce(s) Supporting Document(s) blood urea nitrogen 20 mg/dL 7-18 Above high normal Blood Ure a Nitrogen VANESSA ([facility]) glucose, fasting 382 mg/dL 70-100 Above high normal Glucose, Fas ting VANESSA ([facility]) creatinine for GFR 1.19 mg/dL 0.70-1.30 Creatinine for GF R VANESSA ([facility]) sodium level 135 mEq/L 136-145 Below low normal Sodium Level ATHE NA ([facility]) glomerular filtration rate > 60.0 >56 Glomerula r Filtration Rate VANESSA ([facility]) chloride level 100 mEq/L 98-107 Chloride Level VANESSA ([facility]) potassium serum 4.5 mEq/L 3.5-5.1 Potassium Serum ATHE NA ([facility]) anion gap 8 mEq/L 8-16 Anion Gap VANESSA ([facility]) carbon dioxide level 27 mEq/L 21-32 Carbon Dioxide Level VANESSA ([facility]) AST/SGOT 9 U/L 7-37 AST/SGOT [place] ([facility]) calcium level 9.3 mg/dL 8.5-10.1 Calcium Level VANESSA ( [facility]) ALT/SGPT 26 U/L 12-78 ALT/SGPT VANESSA ([facility]) alkaline phosphatase 71 U/L 45-117 Alkaline Phosph atase VANESSA ([facility]) bilirubin,total 1.0 mg/dL 0.2-1.0 Bilirubin,total [place] ([facility]) albumin 3.9 gm/dL 3.2-5.2 Albumin VANESSA ([facility]) total protein 7.6 gm/dL 6.4-8.2 Total Protein VANESSA ( [facility]) albumin/globulin ratio Albumin/globu jose l Ratio VANESSA ([facility]) ID Date Data Source [id number] 04/25/2021 08:05:00 AM EDT VANESSA ([facility]) Name Value Range Interpretation Code Description Data Sandra rce(s) Supporting Document(s) blood urea nitrogen 20 mg/dL 7-18 Above high normal Blood Ure a Nitrogen VANESSA ([facility]) glucose, fasting 382 mg/dL 70-100 Above high normal Glucose, Fas ting VANESSA ([facility]) creatinine for GFR 1.19 mg/dL 0.70-1.30 Creatinine for GF R VANESSA ([facility]) glomerular filtration rate > 60.0 >56 Glomerula r Filtration Rate VANESSA ([facility]) sodium level 135 mEq/L 136-145 Below low normal Sodium Level ATHE NA ([facility]) chloride level 100 mEq/L 98-107 Chloride Level VANESSA ([facility]) potassium serum 4.5 mEq/L 3.5-5.1 Potassium Serum ATHE NA ([facility]) carbon dioxide level 27 mEq/L 21-32 Carbon Dioxide Level VANESSA ([facility]) anion gap 8 mEq/L 8-16 Anion Gap VANESSA ([facility]) AST/SGOT 9 U/L 7-37 AST/SGOT [facility] ([facility]) calcium level 9.3 mg/dL 8.5-10.1 Calcium Level VANESSA ( [facility]) ALT/SGPT 26 U/L 12-78 ALT/SGPT V[facility]ES[facility] ([facility]) alkaline phosphatase 71 U/L 45-117 Alkaline Phosph atase VANESSA ([facility]) bilirubin,total 1.0 mg/dL 0.2-1.0 Bilirubin,total ATHE NA ([facility]) albumin 3.9 gm/dL 3.2-5.2 Albumin VANESSA ([facility]) total protein 7.6 gm/dL 6.4-8.2 Total Protein VANESSA ( [facility]) albumin/globulin ratio Albumin/globu jose l Ratio VANESSA ([facility]) ID Date Data Source [id number] 04/25/2021 08:05:00 AM EDT [place]AN[place] ([facility]) Name Value Range Interpretation Code Description Data Sandra rce(s) Supporting Document(s) glucose, fasting 382 mg/dL 70-100 Above high normal Glucose, Fas ting VANESSA ([facility]) blood urea nitrogen 20 mg/dL 7-18 Above high normal Blood Ure a Nitrogen VANESSA ([facility]) glomerular filtration rate > 60.0 >56 Glomerula r Filtration Rate VANESSA ([facility]) creatinine for GFR 1.19 mg/dL 0.70-1.30 Creatinine for GF R VANESSA ([facility]) potassium serum 4.5 mEq/L 3.5-5.1 Potassium Serum ATHE NA ([facility]) sodium level 135 mEq/L 136-145 Below low normal Sodium Level ATHE NA ([facility]) anion gap 8 mEq/L 8-16 Anion Gap VANESSA ([facility]) carbon dioxide level 27 mEq/L 21-32 Carbon Dioxide Level VANESSA ([facility]) chloride level 100 mEq/L 98-107 Chloride Level VANESSA ([facility]) AST/SGOT 9 U/L 7-37 AST/SGOT [facility] ([facility]) calcium level 9.3 mg/dL 8.5-10.1 Calcium Level VANESSA ( [facility]) alkaline phosphatase 71 U/L 45-117 Alkaline Phosph atase VANESSA ([facility]) bilirubin,total 1.0 mg/dL 0.2-1.0 Bilirubin,total ATHE NA ([facility]) ALT/SGPT 26 U/L 12-78 ALT/SGPT [facility] ([facility]) total protein 7.6 gm/dL 6.4-8.2 Total Protein VANESSA ( [facility]) albumin 3.9 gm/dL 3.2-5.2 Albumin VANESSA ([facility]) albumin/globulin ratio Albumin/globu jose l Ratio VANESSA ([facility]) ID Date Data Source [id number] 04/25/2021 08:05:00 AM EDT VANESSA ([facility]) Name Value Range Interpretation Code Description Data Sandra rce(s) Supporting Document(s) glucose, fasting 382 mg/dL 70-100 Above high normal Glucose, Fas ting VANESSA ([facility]) glomerular filtration rate > 60.0 >56 Glomerula r Filtration Rate VANESSA ([facility]) creatinine for GFR 1.19 mg/dL 0.70-1.30 Creatinine for GF R VANESSA ([facility]) blood urea nitrogen 20 mg/dL 7-18 Above high normal Blood Ure a Nitrogen VANESSA ([facility]) sodium level 135 mEq/L 136-145 Below low normal Sodium Level ATHE NA ([facility]) chloride level 100 mEq/L 98-107 Chloride Level VANESSA ([facility]) potassium serum 4.5 mEq/L 3.5-5.1 Potassium Serum ATHE NA ([facility]) carbon dioxide level 27 mEq/L 21-32 Carbon Dioxide Level VANESSA ([facility]) anion gap 8 mEq/L 8-16 Anion Gap VAN[facility] ([facility]) calcium level 9.3 mg/dL 8.5-10.1 Calcium Level VANESAS ( [facility]) ALT/SGPT 26 U/L 12-78 ALT/SGPT [facility] ([facility]) AST/SGOT 9 U/L 7-37 AST/SGOT [place] ([facility]) total protein 7.6 gm/dL 6.4-8.2 Total Protein VANESSA ( [facility]) alkaline phosphatase 71 U/L 45-117 Alkaline Phosph atase VANESSA ([facility]) bilirubin,total 1.0 mg/dL 0.2-1.0 Bilirubin,total ATHE NA ([facility]) albumin/globulin ratio Albumin/globu jose l Ratio VANESSA ([facility]) albumin 3.9 gm/dL 3.2-5.2 Albumin V[facility]SA ([facility]) ID Date Data Source [id number] 04/25/2021 08:05:00 AM EDT VANESSA ([facility]) Name Value Range Interpretation Code Description Data Sandra rce(s) Supporting Document(s) creatinine for GFR 1.19 mg/dL 0.70-1.30 Creatinine for GF R VANESSA ([facility]) glucose, fasting 382 mg/dL 70-100 Above high normal Glucose, Fas ting VANESSA ([facility]) blood urea nitrogen 20 mg/dL 7-18 Above high normal Blood Ure a Nitrogen VANESSA ([facility]) glomerular filtration rate > 60.0 >56 Glomerula r Filtration Rate VANESSA ([facility]) sodium level 135 mEq/L 136-145 Below low normal Sodium Level ATHE ([facility]) carbon dioxide level 27 mEq/L 21-32 Carbon Dioxide Level VANESSA ([facility]) potassium serum 4.5 mEq/L 3.5-5.1 Potassium Serum ATHE NA ([facility]) chloride level 100 mEq/L 98-107 Chloride Level VANESSA ([facility]) anion gap 8 mEq/L 8-16 Anion Gap V[facility] ([facility]) calcium level 9.3 mg/dL 8.5-10.1 Calcium Level VANESSA ( [facility]) alkaline phosphatase 71 U/L 45-117 Alkaline Phosph atase AVNESSA ([facility]) ALT/SGPT 26 U/L 12-78 ALT/SGPT [facility] ([facility]) AST/SGOT 9 U/L 7-37 AST/SGOT [facility] ([facility]) total protein 7.6 gm/dL 6.4-8.2 Total Protein VANESSA ( [facility]) bilirubin,total 1.0 mg/dL 0.2-1.0 Bilirubin,total ATHE NA ([facility]) albumin 3.9 gm/dL 3.2-5.2 Albumin V[facility]ESSA ([facility]) albumin/globulin ratio Albumin/globu jose l Ratio VANESSA ([facility]) ID Date Data Source [id number] 04/07/2021 04:34:00 PM EDT VANESSA ([facility]) Name Value Range Interpretation Code Description Data Sandra rce(s) Supporting Document(s) antinuclear antibodies direct negative negative Antinu clear Antibodies Direct VANESSA ([facility]) ID Date Data Source [id number] 04/07/2021 04:34:00 PM EDT VANESSA ([facility]) Name Value Range Interpretation Code Description Data Sandra rce(s) Supporting Document(s) vitamin B6,pyridoxal phosphate 13.4 ug/L 5.3-46.7 Vitamin B6,Pyridoxal Phosphate VANESSA ([facility]) ID Date Data Source [id number] 04/07/2021 04:34:00 PM EDT VANESSA ([facility]) Name Value Range Interpretation Code Description Data Sandra rce(s) Supporting Document(s) vitamin B1 level whole blood 134.8 nmol/L 66.5-200.0 Vitamin B1 Level Whole Blood VANESSA ([facility]) ID Date Data Source [id number] 04/07/2021 04:34:00 PM EDT [place] ([facility]) Name Value Range Interpretation Code Description Data Sandra rce(s) Supporting Document(s) vitamin E(alpha tocopherol) 6.2 mg/L 7.0-25.1 Below low nor mal Vitamin E(alpha Tocopherol) VANESSA ([facility]) vitamin E(gamma tocopherol) 0.7 mg/L 0.5-5.5 Vitamin E(gamma Tocopherol) [place] ([facility]) ID Date Data Source [id number] 04/07/2021 04:34:00 PM EDT [place] ([facility]) Name Value Range Interpretation Code Description Data Sandra rce(s) Supporting Document(s) rheumatoid factor quant < 10.0 <15.0 Rheumatoid F actor Quant [place] ([facility]) ID Date Data Source [id number] 04/07/2021 04:34:00 PM EDT [place] ([facility]) Name Value Range Interpretation Code Description Data Sandra rce(s) Supporting Document(s) folate 17.7 NG/mL Folate [place] ([facility]) vitamin B12 level 493 pg/mL Vitamin B12 Level [place] ([facility]) ID Date Data Source [id number] 04/07/2021 04:34:00 PM EDT [place] ([facility]) Name Value Range Interpretation Code Description Data Sandra rce(s) Supporting Document(s) thmhu-9-puwzflpe % 3.4 % 2.9-4.9 Ucrao-2-Svsgrhrr % [place] ([facility]) albumin % 60.8 % 55.8-66.1 Albumin % [place] ([facility]) hxex-1-vybafijmk % 5.5 % 4.7-7.2 Ckgc-6-Wqxpwlxel % [place] ([facility]) uzsio-5-ydekvqigp % 10.3 % 7.1-11.8 Voakx-7-Pkdychib s % [place] ([facility]) gamma globulin % 14.3 % 11.1-18.8 Gamma Globulin % AT [facility]) jhai-8-iirlmydrv % 5.7 % 3.2-6.5 Cqvn-2-Gdnmsexvt % [place] ([facility]) vfxya-0-adsnugztx 0.75 gm/dL 0.42-0.99 Fmrhl-7-Ooryziuns [place] ([facility]) srrtt-1-ksnvtgjhp 0.25 gm/dL 0.17-0.41 Smftc-3-Uuqghwpjd [place] ([facility]) albumin 4.44 gm/dL 3.29-5.55 Albumin [place] ([facility]) nmgk-9-ssfepnzgh 0.40 gm/dL 0.28-0.60 Agpu-3-Swflejkpn AT [facility] ([facility]) byvl-0-txjdtvqde 0.42 gm/dL 0.19-0.55 Qpat-3-Wzbjdqtxa AT [facility] ([facility]) gamma globulins 1.04 gm/dL 0.65-1.58 Gamma Globulins [place] ([facility]) total protein 7.3 gm/dL 6.4-8.2 Total Protein [place] ( [facility]) spep pathologist review rev'd by Anna kumar Spep Pathologist Review [place] ([facility]) spep interpretation see comment Spep Interpreta tion [place] ([facility]) ID Date Data Source [id number] 04/07/2021 04:34:00 PM EDT [place] ([facility]) Name Value Range Interpretation Code Description Data Sandra rce(s) Supporting Document(s) PTT lupus type anticoag screen 0-1.2 PTT L upus Type Anticoag Screen [place] ([facility]) ID Date Data Source [id number] 04/07/2021 04:34:00 PM EDT [place] ([facility]) Name Value Range Interpretation Code Description Data Sandra rce(s) Supporting Document(s) erythrocyte sedimentation rate 3 mm/HR 0-20 Eryth rocyte Sedimentation Rate [place] ([facility]) ID Date Data Source [id number] 04/07/2021 04:34:00 PM EDT [facility]) Name Value Range Interpretation Code Description Data Sandra rce(s) Supporting Document(s) Hemoglobin A1c/Hemoglobin.total in Blood 11.3 % Hemoglobin a1C [place] ([facility]) estimated average glucose 278 mg/dL 60-110 Above high norm al Estimated Average Glucose [place] ([facility]) ID Date Data Source [id number] 04/07/2021 04:34:00 PM EDT [facility]) Name Value Range Interpretation Code Description Data Sandra rce(s) Supporting Document(s) antinuclear antibodies direct negative negative Antinu clear Antibodies Direct [facility]) ID Date Data Source [id number] 04/07/2021 04:34:00 PM EDT [facility]) Name Value Range Interpretation Code Description Data Sandra rce(s) Supporting Document(s) vitamin B6,pyridoxal phosphate 13.4 ug/L 5.3-46.7 Vitamin B6,Pyridoxal Phosphate [facility]) ID Date Data Source [id number] 04/07/2021 04:34:00 PM EDT [facility]) Name Value Range Interpretation Code Description Data Sandra rce(s) Supporting Document(s) vitamin B1 level whole blood 134.8 nmol/L 66.5-200.0 Vitamin B1 Level Whole Blood [facility]) ID Date Data Source [id number] 04/07/2021 04:34:00 PM EDT [facility]) Name Value Range Interpretation Code Description Data Sandra rce(s) Supporting Document(s) vitamin E(alpha tocopherol) 6.2 mg/L 7.0-25.1 Below low nor mal Vitamin E(alpha Tocopherol) [place] ([facility]) vitamin E(gamma tocopherol) 0.7 mg/L 0.5-5.5 Vitamin E(gamma Tocopherol) [facility]) ID Date Data Source [id number] 04/07/2021 04:34:00 PM EDT [facility]) Name Value Range Interpretation Code Description Data Sandra rce(s) Supporting Document(s) rheumatoid factor quant < 10.0 <15.0 Rheumatoid F actor Quant [place] ([facility]) ID Date Data Source [id number] 04/07/2021 04:34:00 PM EDT [place] ([facility]) Name Value Range Interpretation Code Description Data Sandra rce(s) Supporting Document(s) vitamin B12 level 493 pg/mL Vitamin B12 Level [place] ([facility]) folate 17.7 NG/mL Folate [place] ([facility]) ID Date Data Source [id number] 04/07/2021 04:34:00 PM EDT [place] ([facility]) Name Value Range Interpretation Code Description Data Sandra rce(s) Supporting Document(s) albumin % 60.8 % 55.8-66.1 Albumin % [place] ([facility]) reusr-4-ipeuxcyx % 3.4 % 2.9-4.9 Fbzjc-6-Mjegkqkc % [place] ([facility]) wbgl-0-kexpbkzee % 5.5 % 4.7-7.2 Zxlk-0-Gzcdjuidq % [place] ([facility]) wlcsb-0-rqqbhjwmr % 10.3 % 7.1-11.8 Nutzs-1-Luxsmbwr s % [place] ([facility]) gamma globulin % 14.3 % 11.1-18.8 Gamma Globulin % AT [facility]) uhdw-3-khhlqphmv % 5.7 % 3.2-6.5 Pnjk-4-Zmpmfsxhq % [place] ([facility]) zeequ-1-skfaghnlg 0.25 gm/dL 0.17-0.41 Yonus-1-Djngksxoo [place] ([facility]) albumin 4.44 gm/dL 3.29-5.55 Albumin [place] ([facility]) cutga-3-dbmrqohrl 0.75 gm/dL 0.42-0.99 Caydh-7-Ppfcsampl [place] ([facility]) fguk-6-emrfuwmjz 0.40 gm/dL 0.28-0.60 Dauo-4-Plorllzqt AT [facility] ([facility]) updt-2-dagzquihm 0.42 gm/dL 0.19-0.55 Dlsx-0-Ihaxmubrf AT [facility] ([facility]) gamma globulins 1.04 gm/dL 0.65-1.58 Gamma Globulins [place] ([facility]) spep interpretation see comment Spep Interpreta tion [place] ([facility]) total protein 7.3 gm/dL 6.4-8.2 Total Protein [place] ( [facility]) spep pathologist review rev'd by Anan kumar Spep Pathologist Review [place] ([facility]) ID Date Data Source [id number] 04/07/2021 04:34:00 PM EDT [place] ([facility]) Name Value Range Interpretation Code Description Data Sandra rce(s) Supporting Document(s) PTT lupus type anticoag screen 0-1.2 PTT L upus Type Anticoag Screen [place] ([facility]) ID Date Data Source [id number] 04/07/2021 04:34:00 PM EDT [place] ([facility]) Name Value Range Interpretation Code Description Data Sandra rce(s) Supporting Document(s) erythrocyte sedimentation rate 3 mm/HR 0-20 Eryth rocyte Sedimentation Rate [place] ([facility]) ID Date Data Source [id number] 04/07/2021 04:34:00 PM EDT [place] ([facility]) Name Value Range Interpretation Code Description Data Sandra rce(s) Supporting Document(s) Hemoglobin A1c/Hemoglobin.total in Blood 11.3 % Hemoglobin a1C [place] ([facility]) estimated average glucose 278 mg/dL 60-110 Above high norm al Estimated Average Glucose [place] ([facility]) ID Date Data Source [id number] 04/07/2021 04:34:00 PM EDT [facility]) Name Value Range Interpretation Code Description Data Sandra rce(s) Supporting Document(s) antinuclear antibodies direct negative negative Antinu clear Antibodies Direct [facility]) ID Date Data Source [id number] 04/07/2021 04:34:00 PM EDT [facility]) Name Value Range Interpretation Code Description Data Sandra rce(s) Supporting Document(s) vitamin B6,pyridoxal phosphate 13.4 ug/L 5.3-46.7 Vitamin B6,Pyridoxal Phosphate [facility]) ID Date Data Source [id number] 04/07/2021 04:34:00 PM EDT [facility]) Name Value Range Interpretation Code Description Data Sandra rce(s) Supporting Document(s) vitamin B1 level whole blood 134.8 nmol/L 66.5-200.0 Vitamin B1 Level Whole Blood [facility]) ID Date Data Source [id number] 04/07/2021 04:34:00 PM EDT [facility]) Name Value Range Interpretation Code Description Data Sandra rce(s) Supporting Document(s) vitamin E(alpha tocopherol) 6.2 mg/L 7.0-25.1 Below low nor mal Vitamin E(alpha Tocopherol) [place] ([facility]) vitamin E(gamma tocopherol) 0.7 mg/L 0.5-5.5 Vitamin E(gamma Tocopherol) [facility]) ID Date Data Source [id number] 04/07/2021 04:34:00 PM EDT [facility]) Name Value Range Interpretation Code Description Data Sandra rce(s) Supporting Document(s) rheumatoid factor quant < 10.0 <15.0 Rheumatoid F actor Quant [facility]) ID Date Data Source [id number] 04/07/2021 04:34:00 PM EDT [place] ([facility]) Name Value Range Interpretation Code Description Data Sandra rce(s) Supporting Document(s) vitamin B12 level 493 pg/mL Vitamin B12 Level [place] ([facility]) folate 17.7 NG/mL Folate [place] ([facility]) ID Date Data Source [id number] 04/07/2021 04:34:00 PM EDT [place] ([facility]) Name Value Range Interpretation Code Description Data Sandra rce(s) Supporting Document(s) albumin % 60.8 % 55.8-66.1 Albumin % [facility]) zrsfh-1-hkgbtdvg % 3.4 % 2.9-4.9 Mcvos-9-Cqeqpddm % [facility]) mqsjv-0-mhiilzfgf % 10.3 % 7.1-11.8 Buqsl-3-Vzzhkyef s % [place] ([facility]) yjgf-0-bpfxkpuor % 5.7 % 3.2-6.5 Zlun-8-Kkxnbyunj % [place] ([facility]) sinb-1-fvlwqpbgq % 5.5 % 4.7-7.2 Fmbc-5-Yvqgwxhhr % [facility]) albumin 4.44 gm/dL 3.29-5.55 Albumin [facility]) gamma globulin % 14.3 % 11.1-18.8 Gamma Globulin % AT [facility]) fziao-7-xmizdabdb 0.25 gm/dL 0.17-0.41 Axvub-2-Lmwpskyhu [place] ([facility]) wzjjj-2-yezrvteco 0.75 gm/dL 0.42-0.99 Qbigf-7-Sdrapfeur [place] ([facility]) vtlp-4-znegnjdvf 0.42 gm/dL 0.19-0.55 Qfgq-0-Wgehobavf AT [facility]) dqgq-2-miubdtzxo 0.40 gm/dL 0.28-0.60 Ouhn-2-Swhmfhjyj AT [place] ([facility]) gamma globulins 1.04 gm/dL 0.65-1.58 Gamma Globulins [place] ([facility]) spep interpretation see comment Spep Interpreta tion [place] ([facility]) total protein 7.3 gm/dL 6.4-8.2 Total Protein [place] ( [facility]) spep pathologist review rev'd by Anna kumar Spep Pathologist Review [place] ([facility]) ID Date Data Source [id number] 04/07/2021 04:34:00 PM EDT [place] ([facility]) Name Value Range Interpretation Code Description Data Sandra rce(s) Supporting Document(s) PTT lupus type anticoag screen 0-1.2 PTT L upus Type Anticoag Screen [place] ([facility]) ID Date Data Source [id number] 04/07/2021 04:34:00 PM EDT [place] ([facility]) Name Value Range Interpretation Code Description Data Sandra rce(s) Supporting Document(s) erythrocyte sedimentation rate 3 mm/HR 0-20 Eryth rocyte Sedimentation Rate [place] ([facility]) ID Date Data Source [id number] 04/07/2021 04:34:00 PM EDT [place] ([facility]) Name Value Range Interpretation Code Description Data Sandra rce(s) Supporting Document(s) estimated average glucose 278 mg/dL 60-110 Above high norm al Estimated Average Glucose [place] ([facility]) Hemoglobin A1c/Hemoglobin.total in Blood 11.3 % Hemoglobin a1C [place] ([facility]) ID Date Data Source [id number] 04/07/2021 04:34:00 PM EDT [place] ([facility]) Name Value Range Interpretation Code Description Data Sandra rce(s) Supporting Document(s) antinuclear antibodies direct negative negative Antinu clear Antibodies Direct [place] ([facility]) ID Date Data Source [id number] 04/07/2021 04:34:00 PM EDT [facility]) Name Value Range Interpretation Code Description Data Sandra rce(s) Supporting Document(s) vitamin B6,pyridoxal phosphate 13.4 ug/L 5.3-46.7 Vitamin B6,Pyridoxal Phosphate [facility]) ID Date Data Source [id number] 04/07/2021 04:34:00 PM EDT [facility]) Name Value Range Interpretation Code Description Data Sandra rce(s) Supporting Document(s) vitamin B1 level whole blood 134.8 nmol/L 66.5-200.0 Vitamin B1 Level Whole Blood [facility]) ID Date Data Source [id number] 04/07/2021 04:34:00 PM EDT [facility]) Name Value Range Interpretation Code Description Data Sandra rce(s) Supporting Document(s) vitamin E(alpha tocopherol) 6.2 mg/L 7.0-25.1 Below low nor mal Vitamin E(alpha Tocopherol) [place] ([facility]) vitamin E(gamma tocopherol) 0.7 mg/L 0.5-5.5 Vitamin E(gamma Tocopherol) [facility]) ID Date Data Source [id number] 04/07/2021 04:34:00 PM EDT [facility]) Name Value Range Interpretation Code Description Data Sandra rce(s) Supporting Document(s) rheumatoid factor quant < 10.0 <15.0 Rheumatoid F actor Quant [facility]) ID Date Data Source [id number] 04/07/2021 04:34:00 PM EDT [facility]) Name Value Range Interpretation Code Description Data Sandra rce(s) Supporting Document(s) vitamin B12 level 493 pg/mL Vitamin B12 Level [facility]) folate 17.7 NG/mL Folate [place] ([facility]) ID Date Data Source [id number] 04/07/2021 04:34:00 PM EDT [place] ([facility]) Name Value Range Interpretation Code Description Data Sandra rce(s) Supporting Document(s) albumin % 60.8 % 55.8-66.1 Albumin % [place] ([facility]) xmbou-5-rgqhwqxh % 3.4 % 2.9-4.9 Qdovt-5-Qkbryslb % [place] ([facility]) fcrtz-3-thmwrnlfb % 10.3 % 7.1-11.8 Dkpdm-5-Srihbmkt s % [place] ([facility]) wnvg-8-uuhbbapht % 5.5 % 4.7-7.2 Dopk-9-Mialownuo % [place] ([facility]) mojs-7-eaqvazrmu % 5.7 % 3.2-6.5 Vtxh-2-Ugehitntq % [place] ([facility]) gamma globulin % 14.3 % 11.1-18.8 Gamma Globulin % AT [facility] ([facility]) zzboh-8-buixtftdr 0.75 gm/dL 0.42-0.99 Puapu-2-Odbkvdxtg [place] ([facility]) hucys-6-gzeaeawwd 0.25 gm/dL 0.17-0.41 Lpsra-0-Tofxvkbfk [place] ([facility]) albumin 4.44 gm/dL 3.29-5.55 Albumin [place] ([facility]) hubc-1-qdxjrgjij 0.40 gm/dL 0.28-0.60 Qane-8-Pwqhoyavb AT [facility]) ctdm-7-pcdpioneq 0.42 gm/dL 0.19-0.55 Nufi-0-Ompooeswh AT [facility]) gamma globulins 1.04 gm/dL 0.65-1.58 Gamma Globulins [place] ([facility]) spep interpretation see comment Spep Interpreta tion [place] ([facility]) spep pathologist review rev'd by S haghir Spep Pathologist Review [place] ([facility]) total protein 7.3 gm/dL 6.4-8.2 Total Protein [place] ( [facility]) ID Date Data Source [id number] 04/07/2021 04:34:00 PM EDT [place] ([facility]) Name Value Range Interpretation Code Description Data Sandra rce(s) Supporting Document(s) PTT lupus type anticoag screen 0-1.2 PTT L upus Type Anticoag Screen [place] ([facility]) ID Date Data Source [id number] 04/07/2021 04:34:00 PM EDT [place] ([facility]) Name Value Range Interpretation Code Description Data Sandra rce(s) Supporting Document(s) erythrocyte sedimentation rate 3 mm/HR 0-20 Eryth rocyte Sedimentation Rate [place] ([facility]) ID Date Data Source [id number] 04/07/2021 04:34:00 PM EDT [place] ([facility]) Name Value Range Interpretation Code Description Data Sandra rce(s) Supporting Document(s) Hemoglobin A1c/Hemoglobin.total in Blood 11.3 % Hemoglobin a1C [place] ([facility]) estimated average glucose 278 mg/dL 60-110 Above high norm al Estimated Average Glucose [place] ([facility]) ID Date Data Source [id number] 04/07/2021 04:34:00 PM EDT [place] ([facility]) Name Value Range Interpretation Code Description Data Sandra rce(s) Supporting Document(s) Antinuclear Antibodies Direct Laboratory test result [facility] ([facility]) Performed at: - [facility] [id number] [employer] Teacher: Jaime Chaney MD, Phone: [phone] Performed at: - [facility] [address] [id number] [employer] Teacher: Andria Dinh MD, Phone: [phone] ID Date Data Source [id number] 04/07/2021 04:34:00 PM EDT [facility] ([facility], ) Name Value Range Interpretation Code Description Data Sandra rce(s) Supporting Document(s) Thiamine [Mass/volume] in Blood 134.8 nmol/L 66.5-200.0 [facility] ([facility], ) Specimen Comment: Test(s) 262939-Pjoenbf E(Alpha Tocopherol); 542714- Specimen Comment: Vitamin E(Gamma Tocopherol); 717123-Jbbbpnj B6; 555398- Specimen Comment: Vit. B1, Whole Blood Specimen Comment: was developed and its performance characteristics Specimen Comment: determined by [facility]. It has not been cleared or approved Specimen Comment: by the Food and Drug Administration. Pyridoxine [Mass/volume] in Serum or Plasma 13.4 ug/L 5.3-46.7 [facility] ([facility], ) Specimen Comment: Test(s) 287033-Dfytsiy E(Alpha Tocopherol); 152674- Specimen Comment: Vitamin E(Gamma Tocopherol); 339496-Mamsces B6; 968036- Specimen Comment: Vit. B1, Whole Blood Specimen Comment: was developed and its performance characteristics Specimen Comment: determined by [facility]. It has not been cleared or approved Specimen Comment: by the Food and Drug Administration. ID Date Data Source [id number] 04/07/2021 04:34:00 PM EDT [facility] ([facility], ) Name Value Range Interpretation Code Description Data Sandra rce(s) Supporting Document(s) Vitamin E(Alpha Tocopherol) 6.2 mg/L 7.0-25.1 [facility] ([facility], ) Vitamin E(Gamma Tocopherol) 0.7 mg/L 0.5-5.5 [facility] ([facility], ) Reference intervals for alpha and gamma- tocopherol determined from National Health and Nutrition Examination Survey, 8231-2765. Individuals with alpha-tocopherol levels less than 5.0 mg/L are considered vitamin E deficient. ID Date Data Source [id number] 04/07/2021 04:34:00 PM EDT [facility] ([facility], ) Name Value Range Interpretation Code Description Data Sandra rce(s) Supporting Document(s) Rheumatoid factor [Units/volume] in Serum or Plasma Laboratory test result [facility] ([facility], ) <content>note:<nlbl:demographic_changed> </content>
<content></content> ID Date Data Source [id number] 04/07/2021 04:34:00 PM EDT [facility] ([facility], ) Name Value Range Interpretation Code Description Data Sandra rce(s) Supporting Document(s) Vitamin B12 Level 493 pg/mL [facility] ([facility], ) VITAMIN B12 NORMAL RANGE NORMAL 247 - 911 PG/ML INDETERMINATE 211 - 246 PG/ML DEFICIENT LESS THAN 211 PG/ML Folate 17.7 ng/mL [facility] ([facility], ) FOLATE NORMAL RANGE NORMAL GREATER THAN 5.4 NG/ML INDETERMINATE 3.4-5.4 NG/ML DEFICIENT LESS THAN 3.4 NG/ML ID Date Data Source [id number] 04/07/2021 04:34:00 PM EDT [facility] ([facility], ) Name Value Range Interpretation Code Description Data Sandra rce(s) Supporting Document(s) Albumin % 60.8 % 55.8-66.1 [facility] ([facility], ) Njnon-2-Delbierl % 3.4 % 2.9-4.9 [facility] ([facility], ) Prywq-0-Ucwbkvwnj % 10.3 % 7.1-11.8 [facility] ([facility], ) Ogas-7-Fcgiraqrq % 5.5 % 4.7-7.2 [facility] ([facility], ) Zylb-7-Bclpzvuud % 5.7 % 3.2-6.5 [facility] ([facility], ) Albumin 4.44 GM/DL 3.29-5.55 [facility] ([facility], ) Gamma Globulin % 14.3 % 11.1-18.8 [facility] Dcgkc-7-Mnoykpegg 0.25 GM/DL 0.17-0.41 [facility] ([facility], ) Cnhyq-9-Owbzrpums 0.75 GM/DL 0.42-0.99 [facility] ([facility], ) Ulvd-4-Hcwwsbijx 0.42 GM/DL 0.19-0.55 [facility] ([facility], ) Iorz-9-Txqvccsdo 0.40 GM/DL 0.28-0.60 [facility] ([facility], ) Gamma Globulins 1.04 GM/DL 0.65-1.58 [facility] ([facility]) Total Protein 7.3 GM/DL 6.4-8.2 [facility] ([facility]) Spep Interpretation Laboratory test result [facility] ([facility]) NO M-SPIKE(S)NOTED. Laboratory test finding (navigational concept) Laboratory test result [facility] ([facility]) REV'D BY Anna KUMAR ID Date Data Source [id number] 04/07/2021 04:34:00 PM EDT [facility] ([facility]) Name Value Range Interpretation Code Description Data Sandra rce(s) Supporting Document(s) Hemoglobin A1c 11.3 % [facility] ([facility]) <content>REFERENCE RANGES:</content><br/ ><content></content>
<content><=5.6% NORMAL</content>
<content>5.7-6.4% SUGGESTS IMPAIRED GLUCOSE METABOLISM/PREDIABETIC</content>
<content>>= 6.5% ABNORMAL</content>
<content></content> Estimated Average Glucose 278 mg/dL 60-110 [facility] ([facility]) ID Date Data Source [id number] 04/07/2021 04:34:00 PM EDT [facility]) Name Value Range Interpretation Code Description Data Sandra rce(s) Supporting Document(s) antinuclear antibodies direct negative negative Antinu clear Antibodies Direct [facility]) ID Date Data Source [id number] 04/07/2021 04:34:00 PM EDT [facility]) Name Value Range Interpretation Code Description Data Sandra rce(s) Supporting Document(s) vitamin B6,pyridoxal phosphate 13.4 ug/L 5.3-46.7 Vitamin B6,Pyridoxal Phosphate [place] ([facility]) ID Date Data Source [id number] 04/07/2021 04:34:00 PM EDT [facility] Name Value Range Interpretation Code Description Data Sandra rce(s) Supporting Document(s) vitamin B1 level whole blood 134.8 nmol/L 66.5-200.0 Vitamin B1 Level Whole Blood [place] ([facility]) ID Date Data Source [id number] 04/07/2021 04:34:00 PM EDT [facility] Name Value Range Interpretation Code Description Data Sandra rce(s) Supporting Document(s) vitamin E(alpha tocopherol) 6.2 mg/L 7.0-25.1 Below low nor mal Vitamin E(alpha Tocopherol) [place] ([facility]) vitamin E(gamma tocopherol) 0.7 mg/L 0.5-5.5 Vitamin E(gamma Tocopherol) [place] ([facility]) ID Date Data Source [id number] 04/07/2021 04:34:00 PM EDT [facility] Name Value Range Interpretation Code Description Data Sandra rce(s) Supporting Document(s) rheumatoid factor quant < 10.0 <15.0 Rheumatoid F actor Quant [place] ([facility]) ID Date Data Source [id number] 04/07/2021 04:34:00 PM EDT [facility]) Name Value Range Interpretation Code Description Data Sandra rce(s) Supporting Document(s) vitamin B12 level 493 pg/mL Vitamin B12 Level [facility] folate 17.7 NG/mL Folate [place] ([facility]) ID Date Data Source [id number] 04/07/2021 04:34:00 PM EDT [facility]) Name Value Range Interpretation Code Description Data Sandra rce(s) Supporting Document(s) emxqu-5-ygrkmgyb % 3.4 % 2.9-4.9 Phwxi-0-Nljsaozz % [place] ([facility]) albumin % 60.8 % 55.8-66.1 Albumin % [place] ([facility]) bmnl-4-aygmgxgnm % 5.7 % 3.2-6.5 Zxzn-5-Pzvjjhqqm % [place] ([facility]) ygks-1-nkjokolaj % 5.5 % 4.7-7.2 Aels-6-Vspgdnfzx % [place] ([facility]) swtox-4-wgyjvxaaq % 10.3 % 7.1-11.8 Aqhwq-1-Jnpqzvjq s % [place] ([facility]) albumin 4.44 gm/dL 3.29-5.55 Albumin [place] ([facility]) torxp-8-wjyycrdgr 0.25 gm/dL 0.17-0.41 Hnjpc-0-Myfvcxdng [place] ([facility]) gamma globulin % 14.3 % 11.1-18.8 Gamma Globulin % [facility]) cudk-2-bkowdwuit 0.42 gm/dL 0.19-0.55 Zoqo-0-Suejlxduz [facility]) qnqn-5-iyaddouuh 0.40 gm/dL 0.28-0.60 Jyqw-4-Insgulnei [facility]) olenv-6-tzereznqt 0.75 gm/dL 0.42-0.99 Pzmwm-1-Pcivqyrtr [place] ([facility]) gamma globulins 1.04 gm/dL 0.65-1.58 Gamma Globulins [place] ([facility]) spep interpretation see comment Spep Interpreta tion [place] ([facility]) total protein 7.3 gm/dL 6.4-8.2 Total Protein [place] ( [facility]) spep pathologist review rev'd by Anna kumar Spep Pathologist Review [place] ([facility]) ID Date Data Source [id number] 04/07/2021 04:34:00 PM EDT [place] ([facility]) Name Value Range Interpretation Code Description Data Sandra rce(s) Supporting Document(s) PTT lupus type anticoag screen 0-1.2 PTT L upus Type Anticoag Screen [place] ([facility]) ID Date Data Source [id number] 04/07/2021 04:34:00 PM EDT [place] ([facility]) Name Value Range Interpretation Code Description Data Sandra rce(s) Supporting Document(s) erythrocyte sedimentation rate 3 mm/HR 0-20 Eryth rocyte Sedimentation Rate [place] ([facility]) ID Date Data Source [id number] 04/07/2021 04:34:00 PM EDT [place] ([facility]) Name Value Range Interpretation Code Description Data Sandra rce(s) Supporting Document(s) estimated average glucose 278 mg/dL 60-110 Above high norm al Estimated Average Glucose [place] ([facility]) Hemoglobin A1c/Hemoglobin.total in Blood 11.3 % Hemoglobin a1C [place] ([facility]) ID Date Data Source [id number] 04/07/2021 04:34:00 PM EDT [facility] ([facility], ) Name Value Range Interpretation Code Description Data Sandra rce(s) Supporting Document(s) PTT Lupus Type Anticoag Screen 0.8 0-1.2 [facility] ([facility], ) RESULT IS LESS THAN 1.2, [...] a specific inhibitor. ID Date Data Source [id number] 04/07/2021 04:34:00 PM EDT [facility] ([facility], ) Name Value Range Interpretation Code Description Data Sandra rce(s) Supporting Document(s) Erythrocyte sedimentation rate by 2H Westergren method 3 mm/hr 0-2 0 [facility] ([facility]) ID Date Data Source [id number] 03/10/2021 08:51:00 AM EDT [facility]) Name Value Range Interpretation Code Description Data Sandra rce(s) Supporting Document(s) Hemoglobin A1c/Hemoglobin.total in Blood 13.2 % Abnormal (applies to non- numeric results) Hba1C [place] ([facility]) ID Date Data Source [id number] 03/10/2021 08:51:00 AM EDT [facility]) Name Value Range Interpretation Code Description Data Sandra rce(s) Supporting Document(s) Hemoglobin A1c/Hemoglobin.total in Blood 13.2 % Abnormal (applies to non- numeric results) Hba1C [place] ([facility]) ID Date Data Source [id number] 03/10/2021 08:51:00 AM EDT [facility]) Name Value Range Interpretation Code Description Data Sandra rce(s) Supporting Document(s) Hemoglobin A1c/Hemoglobin.total in Blood 13.2 % Abnormal (applies to non- numeric results) Hba1C [place] ([facility]) ID Date Data Source [id number] 03/10/2021 08:51:00 AM EDT [facility]) Name Value Range Interpretation Code Description Data Sandra rce(s) Supporting Document(s) Hemoglobin A1c/Hemoglobin.total in Blood 13.2 % Abnormal (applies to non- numeric results) Hba1C [place] ([facility]) ID Date Data Source [id number] 03/10/2021 08:51:00 AM EDT [facility]) Name Value Range Interpretation Code Description Data Sandra rce(s) Supporting Document(s) Hemoglobin A1c/Hemoglobin.total in Blood 13.2 % Abnormal (applies to non- numeric results) Hba1C [place] ([facility]) ID Date Data Source [id number] 03/10/2021 08:51:00 AM EDT [place] ([facility]) Name Value Range Interpretation Code Description Data Sandra rce(s) Supporting Document(s) Hemoglobin A1c/Hemoglobin.total in Blood 13.2 % Abnormal (applies to non- numeric results) Hba1C [place] ([facility]) ID Date Data Source [id number] 03/10/2021 08:51:00 AM EDT [place] ([facility]) Name Value Range Interpretation Code Description Data Sandra rce(s) Supporting Document(s) Hemoglobin A1c/Hemoglobin.total in Blood 13.2 % Abnormal (applies to non- numeric results) Hba1C [place] ([facility]) ID Date Data Source [id number] 03/09/2021 08:39:00 AM EDT [place] ([facility]) Name Value Range Interpretation Code Description Data Sandra rce(s) Supporting Document(s) jesse/creat ratio 66.9 mcg/mg 0.0-30.0 Above high normal Jesse/creat Ra susy [place] ([facility]) malb urine siemens 35.3 mg/L Malb Urine Siemen s [place] ([facility]) creatinine, urine 52.7 mg/dL Creatinine, Urine [place] ([facility]) ID Date Data Source [id number] 03/09/2021 08:39:00 AM EDT [place] ([facility]) Name Value Range Interpretation Code Description Data Sandra rce(s) Supporting Document(s) cholesterol level 145 mg/dL <200 Cholesterol Level [place] ([facility]) triglycerides level 176 mg/dL <150 Above high normal Triglycer ides Level [place] ([facility]) non-HDL-C 98 mg/dL Non-hdl-c [place] ([facility]) Cholesterol in LDL [Mass/volume] in Serum or Plasma 63 mg/dL <1 00 LDL Cholesterol [place] ([facility]) HDL cholesterol 47 mg/dL >40 HDL Cholesterol [place] ([facility]) cholesterol risk ratio <5 Cholesterol R isk Ratio [place] ([facility]) ID Date Data Source [id number] 03/09/2021 08:39:00 AM EDT [place] ([facility]) Name Value Range Interpretation Code Description Data Sandra rce(s) Supporting Document(s) blood urea nitrogen 15 mg/dL 7-18 Blood Urea Nitro gen [place] ([facility]) glucose, fasting 326 mg/dL 70-100 Above high normal Glucose, Fas ting [place] ([facility]) creatinine for GFR 1.04 mg/dL 0.70-1.30 Creatinine for GF R [place] ([facility]) glomerular filtration rate > 60.0 >56 Glomerula r Filtration Rate [place] ([facility]) sodium level 137 mEq/L 136-145 Sodium Level [place] ([facility]) potassium serum 4.3 mEq/L 3.5-5.1 Potassium Serum [place] ([facility]) chloride level 102 mEq/L 98-107 Chloride Level [place] ([facility]) anion gap 4 mEq/L 8-16 Below low normal Anion Gap [place] ( [facility]) carbon dioxide level 31 mEq/L 21-32 Carbon Dioxide Level [place] ([facility]) ALT/SGPT 29 U/L 12-78 ALT/SGPT [place] ([facility]) AST/SGOT 11 U/L 7-37 AST/SGOT [place] ([facility]) calcium level 9.3 mg/dL 8.5-10.1 Calcium Level [place] ( [facility]) alkaline phosphatase 74 U/L 45-117 Alkaline Phosph atase [place] ([facility]) total protein 7.9 gm/dL 6.4-8.2 Total Protein [place] ( [facility]) bilirubin,total 1.1 mg/dL 0.2-1.0 Above high normal Bilirubin,tot al [place] ([facility]) albumin 4.2 gm/dL 3.2-5.2 Albumin [place] ([facility]) albumin/globulin ratio Albumin/globu jose l Ratio [place] ([facility]) ID Date Data Source [id number] 03/09/2021 08:39:00 AM EDT [place] ([facility]) Name Value Range Interpretation Code Description Data Sandra rce(s) Supporting Document(s) white blood count 6.3 10 4.0-10.0 White Blood Count [place] ([facility]) red blood count 5.76 10 4.30-6.10 Red Blood Count [place] ([facility]) mean corpuscular volume 90.1 fL 80.0-96.0 Mean Corpusc ular Volume [place] ([facility]) hemoglobin 18.4 g/dL 13.5-17.5 Above high normal Hemoglobin [place] ([facility]) hematocrit 51.9 % 42.0-52.0 Hematocrit [place] ([facility]) mean corpuscular HGB conc 35.5 g/dL 32.0-36.5 Mean Corpu scular HGB Conc [place] ([facility]) mean corpuscular hemoglobin 31.9 pg 27.0-33.0 Mean Cor puscular Hemoglobin [place] ([facility]) red cell distribution width 12.7 % 11.5-14.5 Red Cell Distribution Width [place] ([facility]) neutrophils % 59.4 % 36.0-66.0 Neutrophils % [place] ( [facility]) platelet count, automated 171 10 150-450 Platelet C ount, Automated [place] ([facility]) lymph % 28.3 % 24.0-44.0 Lymph % [place] ([facility]) eos % 1.8 % 0.0-3.0 Eos % [place] ([facility]) mono % 9.4 % 2.0-8.0 Above high normal [place] % [place] ([facility]) baso % 0.5 % 0.0-1.0 Baso % [place] ([facility]) nucleated red blood cell % 0.0 % 0-0 Nucleated Red Blood Cell % [place] ([facility]) immature granulocyte % 0.6 % 0-3.0 Immature Gran ulocyte % [place] ([facility]) lymph # 1.8 10 1.5-5.0 Lymph # [place] ([facility]) neutrophils # 3.7 10 1.5-8.5 Neutrophils # [place] ( [facility]) mono # 0.6 10 0.0-0.8 [place] # [place] ([facility]) baso # 0.0 10 0.0-0.2 Baso # [place] ([facility]) eos # 0.1 10 0.0-0.5 Eos # [place] ([facility]) ID Date Data Source [id number] 03/09/2021 08:39:00 AM EDT [place] ([facility]) Name Value Range Interpretation Code Description Data Sandra rce(s) Supporting Document(s) creatinine, urine 52.7 mg/dL Creatinine, Urine [place] ([facility]) malb urine siemens 35.3 mg/L Malb Urine Siemen s [place] ([facility]) jesse/creat ratio 66.9 mcg/mg 0.0-30.0 Above high normal Jesse/creat Ra susy [place] ([facility]) ID Date Data Source [id number] 03/09/2021 08:39:00 AM EDT [place] ([facility]) Name Value Range Interpretation Code Description Data Sandra rce(s) Supporting Document(s) cholesterol level 145 mg/dL <200 Cholesterol Level [place] ([facility]) triglycerides level 176 mg/dL <150 Above high normal Triglycer ides Level [place] ([facility]) HDL cholesterol 47 mg/dL >40 HDL Cholesterol [place] ([facility]) cholesterol risk ratio <5 Cholesterol R isk Ratio [place] ([facility]) non-HDL-C 98 mg/dL Non-hdl-c [place] ([facility]) Cholesterol in LDL [Mass/volume] in Serum or Plasma 63 mg/dL <1 00 LDL Cholesterol [place] ([facility]) ID Date Data Source [id number] 03/09/2021 08:39:00 AM EDT [place] ([facility]) Name Value Range Interpretation Code Description Data Sandra rce(s) Supporting Document(s) glucose, fasting 326 mg/dL 70-100 Above high normal Glucose, Fas ting [place] ([facility]) blood urea nitrogen 15 mg/dL 7-18 Blood Urea Nitro gen [place] ([facility]) creatinine for GFR 1.04 mg/dL 0.70-1.30 Creatinine for GF R [place] ([facility]) glomerular filtration rate > 60.0 >56 Glomerula r Filtration Rate [place] ([facility]) potassium serum 4.3 mEq/L 3.5-5.1 Potassium Serum [place] ([facility]) sodium level 137 mEq/L 136-145 Sodium Level [place] ([facility]) anion gap 4 mEq/L 8-16 Below low normal Anion Gap [place] ( [facility]) chloride level 102 mEq/L 98-107 Chloride Level [place] ([facility]) carbon dioxide level 31 mEq/L 21-32 Carbon Dioxide Level [place] ([facility]) ALT/SGPT 29 U/L 12-78 ALT/SGPT [place] ([facility]) AST/SGOT 11 U/L 7-37 AST/SGOT [place] ([facility]) calcium level 9.3 mg/dL 8.5-10.1 Calcium Level [place] ( [facility]) alkaline phosphatase 74 U/L 45-117 Alkaline Phosph atase [place] ([facility]) bilirubin,total 1.1 mg/dL 0.2-1.0 Above high normal Bilirubin,tot al [place] ([facility]) total protein 7.9 gm/dL 6.4-8.2 Total Protein [place] ( [facility]) albumin 4.2 gm/dL 3.2-5.2 Albumin [place] ([facility]) albumin/globulin ratio Albumin/globu jose l Ratio [place] ([facility]) ID Date Data Source [id number] 03/09/2021 08:39:00 AM EDT [place] ([facility]) Name Value Range Interpretation Code Description Data Sandra rce(s) Supporting Document(s) white blood count 6.3 10 4.0-10.0 White Blood Count [place] ([facility]) red blood count 5.76 10 4.30-6.10 Red Blood Count [place] ([facility]) hemoglobin 18.4 g/dL 13.5-17.5 Above high normal Hemoglobin [place] ([facility]) mean corpuscular volume 90.1 fL 80.0-96.0 Mean Corpusc ular Volume [place] ([facility]) hematocrit 51.9 % 42.0-52.0 Hematocrit [place] ([facility]) red cell distribution width 12.7 % 11.5-14.5 Red Cell Distribution Width [place] ([facility]) mean corpuscular hemoglobin 31.9 pg 27.0-33.0 Mean Cor puscular Hemoglobin [place] ([facility]) mean corpuscular HGB conc 35.5 g/dL 32.0-36.5 Mean Corpu scular HGB Conc [place] ([facility]) neutrophils % 59.4 % 36.0-66.0 Neutrophils % [place] ( [facility]) platelet count, automated 171 10 150-450 Platelet C ount, Automated [place] ([facility]) mono % 9.4 % 2.0-8.0 Above high normal [place] % [place] ([facility]) eos % 1.8 % 0.0-3.0 Eos % [place] ([facility]) lymph % 28.3 % 24.0-44.0 Lymph % [place] ([facility]) immature granulocyte % 0.6 % 0-3.0 Immature Gran ulocyte % [place] ([facility]) baso % 0.5 % 0.0-1.0 Baso % [place] ([facility]) nucleated red blood cell % 0.0 % 0-0 Nucleated Red Blood Cell % [place] ([facility]) neutrophils # 3.7 10 1.5-8.5 Neutrophils # [place] ( [facility]) mono # 0.6 10 0.0-0.8 [place] # [place] ([facility]) lymph # 1.8 10 1.5-5.0 Lymph # [place] ([facility]) baso # 0.0 10 0.0-0.2 Baso # [place] ([facility]) eos # 0.1 10 0.0-0.5 Eos # [place] ([facility]) ID Date Data Source [id number] 03/09/2021 08:39:00 AM EDT [place] ([facility]) Name Value Range Interpretation Code Description Data Sandra rce(s) Supporting Document(s) creatinine, urine 52.7 mg/dL Creatinine, Urine [place] ([facility]) jesse/creat ratio 66.9 mcg/mg 0.0-30.0 Above high normal Jesse/creat Ra susy [place] ([facility]) malb urine siemens 35.3 mg/L Malb Urine Siemen s [place] ([facility]) ID Date Data Source [id number] 03/09/2021 08:39:00 AM EDT [place] ([facility]) Name Value Range Interpretation Code Description Data Sandra rce(s) Supporting Document(s) triglycerides level 176 mg/dL <150 Above high normal Triglycer ides Level [place] ([facility]) Cholesterol in LDL [Mass/volume] in Serum or Plasma 63 mg/dL <1 00 LDL Cholesterol [place] ([facility]) cholesterol level 145 mg/dL <200 Cholesterol Level [place] ([facility]) HDL cholesterol 47 mg/dL >40 HDL Cholesterol [facility] [place] ([facility]) non-HDL-C 98 mg/dL Non-hdl-c [place] ([facility]) cholesterol risk ratio <5 Cholesterol R isk Ratio [facility] ([facility]) ID Date Data Source [id number] 03/09/2021 08:39:00 AM EDT [place] ([facility]) Name Value Range Interpretation Code Description Data Sandra rce(s) Supporting Document(s) glucose, fasting 326 mg/dL 70-100 Above high normal Glucose, Fas ting [place] ([facility]) creatinine for GFR 1.04 mg/dL 0.70-1.30 Creatinine for GF R [place] ([facility]) blood urea nitrogen 15 mg/dL 7-18 Blood Urea Nitro gen [facility] ([facility]) potassium serum 4.3 mEq/L 3.5-5.1 Potassium Serum [facility] [place] ([facility]) chloride level 102 mEq/L 98-107 Chloride Level [place] ([facility]) glomerular filtration rate > 60.0 >56 Glomerula r Filtration Rate [place] ([facility]) sodium level 137 mEq/L 136-145 Sodium Level [facility] ([facility]) anion gap 4 mEq/L 8-16 Below low normal Anion Gap [facility] ( [facility]) calcium level 9.3 mg/dL 8.5-10.1 Calcium Level [facility] ( [facility]) carbon dioxide level 31 mEq/L 21-32 Carbon Dioxide Level [facility] ([facility]) ALT/SGPT 29 U/L 12-78 ALT/SGPT [facility] ([facility]) AST/SGOT 11 U/L 7-37 AST/SGOT [facility] ([facility]) alkaline phosphatase 74 U/L 45-117 Alkaline Phosph atase [facility] ([facility]) bilirubin,total 1.1 mg/dL 0.2-1.0 Above high normal Bilirubin,tot al [facility] ([facility]) albumin 4.2 gm/dL 3.2-5.2 Albumin [facility] ([facility]) albumin/globulin ratio Albumin/globu joes l Ratio [facility] ([facility]) total protein 7.9 gm/dL 6.4-8.2 Total Protein [facility] ( [facility]) ID Date Data Source [id number] 03/09/2021 08:39:00 AM EDT [place] ([facility]) Name Value Range Interpretation Code Description Data Sandra rce(s) Supporting Document(s) white blood count 6.3 10 4.0-10.0 White Blood Count [facility] ([facility]) hemoglobin 18.4 g/dL 13.5-17.5 Above high normal Hemoglobin [facility] ([facility]) red blood count 5.76 10 4.30-6.10 Red Blood Count [facility] [place] ([facility]) hematocrit 51.9 % 42.0-52.0 Hematocrit [facility] ([facility]) mean corpuscular volume 90.1 fL 80.0-96.0 Mean Corpusc ular Volume [facility] ([facility]) mean corpuscular hemoglobin 31.9 pg 27.0-33.0 Mean Cor puscular Hemoglobin [facility] ([facility]) mean corpuscular HGB conc 35.5 g/dL 32.0-36.5 Mean Corpu scular HGB Conc [facility] ([facility]) red cell distribution width 12.7 % 11.5-14.5 Red Cell Distribution Width [facility] ([facility]) platelet count, automated 171 10 150-450 Platelet C ount, Automated [place] ([facility]) neutrophils % 59.4 % 36.0-66.0 Neutrophils % [place] ( [facility]) mono % 9.4 % 2.0-8.0 Above high normal [place] % [facility] ([facility]) lymph % 28.3 % 24.0-44.0 Lymph % [facility] ([facility]) eos % 1.8 % 0.0-3.0 Eos % [place] ([facility]) baso % 0.5 % 0.0-1.0 Baso % [place] ([facility]) immature granulocyte % 0.6 % 0-3.0 Immature Gran ulocyte % [place] ([facility]) nucleated red blood cell % 0.0 % 0-0 Nucleated Red Blood Cell % [facility] ([facility]) eos # 0.1 10 0.0-0.5 Eos # [place] ([facility]) mono # 0.6 10 0.0-0.8 [place] # [facility] ([facility]) lymph # 1.8 10 1.5-5.0 Lymph # [facility] ([facility]) neutrophils # 3.7 10 1.5-8.5 Neutrophils # [place] ( [facility]) baso # 0.0 10 0.0-0.2 Baso # [facility] ([facility]) ID Date Data Source [id number] 03/09/2021 08:39:00 AM EDT [place] ([facility]) Name Value Range Interpretation Code Description Data Sandra rce(s) Supporting Document(s) malb urine siemens 35.3 mg/L Malb Urine Siemen s [facility] ([facility]) creatinine, urine 52.7 mg/dL Creatinine, Urine [facility] ([facility] [facility]) jesse/creat ratio 66.9 mcg/mg 0.0-30.0 Above high normal Jesse/creat Ra susy VANES[place] ([facility]) ID Date Data Source [id number] 03/09/2021 08:39:00 AM EDT [place] ([facility]) Name Value Range Interpretation Code Description Data Sandra rce(s) Supporting Document(s) Cholesterol in LDL [Mass/volume] in Serum or Plasma 63 mg/dL <1 00 LDL Cholesterol VANESSA ([facility]) HDL cholesterol 47 mg/dL >40 HDL Cholesterol ATHE NA ([facility]) triglycerides level 176 mg/dL <150 Above high normal Triglycer ides Level VANESSA ([facility]) cholesterol level 145 mg/dL <200 Cholesterol Level VANESSA ([facility]) cholesterol risk ratio <5 Cholesterol R isk Ratio V[facility]ES[facility] ([facility]) non-HDL-C 98 mg/dL Non-hdl-c [facility] ([facility]) ID Date Data Source [id number] 03/09/2021 08:39:00 AM EDT [place] ([facility]) Name Value Range Interpretation Code Description Data Sandra rce(s) Supporting Document(s) glomerular filtration rate > 60.0 >56 Glomerula r Filtration Rate V[place] ([facility]) glucose, fasting 326 mg/dL 70-100 Above high normal Glucose, Fas ting VANESSA ([facility]) blood urea nitrogen 15 mg/dL 7-18 Blood Urea Nitro gen VANESSA ([facility]) creatinine for GFR 1.04 mg/dL 0.70-1.30 Creatinine for GF R VANESSA ([facility]) potassium serum 4.3 mEq/L 3.5-5.1 Potassium Serum ATH NA ([facility]) sodium level 137 mEq/L 136-145 Sodium Level V[facility]ES[facility] ([facility]) chloride level 102 mEq/L 98-107 Chloride Level [place] ([facility]) carbon dioxide level 31 mEq/L 21-32 Carbon Dioxide Level V[place]ES[place] ([facility]) AST/SGOT 11 U/L 7-37 AST/SGOT [place] ([facility]) anion gap 4 mEq/L 8-16 Below low normal Anion Gap [place] ( [facility]) calcium level 9.3 mg/dL 8.5-10.1 Calcium Level V[place] ( [facility]) alkaline phosphatase 74 U/L 45-117 Alkaline Phosph atase V[place] ([facility]) ALT/SGPT 29 U/L 12-78 ALT/SGPT [place] ([facility]) bilirubin,total 1.1 mg/dL 0.2-1.0 Above high normal Bilirubin,tot al [place] ([facility]) total protein 7.9 gm/dL 6.4-8.2 Total Protein [place] ( [facility]) albumin 4.2 gm/dL 3.2-5.2 Albumin [place] ([facility]) albumin/globulin ratio Albumin/globu jose l Ratio [place] ([facility]) ID Date Data Source [id number] 03/09/2021 08:39:00 AM EDT [place] ([facility]) Name Value Range Interpretation Code Description Data Sandra rce(s) Supporting Document(s) red blood count 5.76 10 4.30-6.10 Red Blood Count ATHE NA ([facility]) white blood count 6.3 10 4.0-10.0 White Blood Count [place] ([facility]) hemoglobin 18.4 g/dL 13.5-17.5 Above high normal Hemoglobin [place] ([facility]) mean corpuscular volume 90.1 fL 80.0-96.0 Mean Corpusc ular Volume V[place]ES[place] ([facility]) hematocrit 51.9 % 42.0-52.0 Hematocrit [place] ([facility]) mean corpuscular hemoglobin 31.9 pg 27.0-33.0 Mean Cor puscular Hemoglobin [facility] ([facility]) mean corpuscular HGB conc 35.5 g/dL 32.0-36.5 Mean Corpu scular HGB Conc [facility] ([facility]) red cell distribution width 12.7 % 11.5-14.5 Red Cell Distribution Width [place] ([facility]) lymph % 28.3 % 24.0-44.0 Lymph % [place] ([facility]) mono % 9.4 % 2.0-8.0 Above high normal [place] % [place] ([facility]) platelet count, automated 171 10 150-450 Platelet C ount, Automated [place] ([facility]) neutrophils % 59.4 % 36.0-66.0 Neutrophils % [place] ( [facility]) immature granulocyte % 0.6 % 0-3.0 Immature Gran ulocyte % [place] ([facility]) baso % 0.5 % 0.0-1.0 Baso % [place] ([facility]) eos % 1.8 % 0.0-3.0 Eos % [place] ([facility]) lymph # 1.8 10 1.5-5.0 Lymph # [place] ([facility]) mono # 0.6 10 0.0-0.8 [place] # [place] ([facility]) nucleated red blood cell % 0.0 % 0-0 Nucleated Red Blood Cell % [place] ([facility]) neutrophils # 3.7 10 1.5-8.5 Neutrophils # [place] ( [facility]) eos # 0.1 10 0.0-0.5 Eos # [place] ([facility]) baso # 0.0 10 0.0-0.2 Baso # [place] ([facility]) ID Date Data Source [id number] 03/09/2021 08:39:00 AM EDT [place] ([facility]) Name Value Range Interpretation Code Description Data Sandra rce(s) Supporting Document(s) creatinine, urine 52.7 mg/dL Creatinine, Urine [facility] ([facility]) malb urine siemens 35.3 mg/L Malb Urine Siemen s [place] ([facility]) jesse/creat ratio 66.9 mcg/mg 0.0-30.0 Above high normal Jesse/creat Ra susy [facility] ([facility]) ID Date Data Source [id number] 03/09/2021 08:39:00 AM EDT [place] ([facility]) Name Value Range Interpretation Code Description Data Sandra rce(s) Supporting Document(s) cholesterol level 145 mg/dL <200 Cholesterol Level [place] ([facility]) HDL cholesterol 47 mg/dL >40 HDL Cholesterol ATHE ([facility]) triglycerides level 176 mg/dL <150 Above high normal Triglycer ides Level [place] ([facility]) non-HDL-C 98 mg/dL Non-hdl-c [place] ([facility]) cholesterol risk ratio <5 Cholesterol R isk Ratio [facility] ([facility]) Cholesterol in LDL [Mass/volume] in Serum or Plasma 63 mg/dL <1 00 LDL Cholesterol [place] ([facility]) ID Date Data Source [id number] 03/09/2021 08:39:00 AM EDT [place] ([facility]) Name Value Range Interpretation Code Description Data Sandra rce(s) Supporting Document(s) blood urea nitrogen 15 mg/dL 7-18 Blood Urea Nitro gen [place] ([facility]) glomerular filtration rate > 60.0 >56 Glomerula r Filtration Rate [place] ([facility]) glucose, fasting 326 mg/dL 70-100 Above high normal Glucose, Fas ting [place] ([facility]) creatinine for GFR 1.04 mg/dL 0.70-1.30 Creatinine for GF R [facility] ([facility]) sodium level 137 mEq/L 136-145 Sodium Level [facility] ([facility]) potassium serum 4.3 mEq/L 3.5-5.1 Potassium Serum ATHE NA ([facility]) chloride level 102 mEq/L 98-107 Chloride Level [place] ([facility]) carbon dioxide level 31 mEq/L 21-32 Carbon Dioxide Level [place] ([facility]) calcium level 9.3 mg/dL 8.5-10.1 Calcium Level [place] ( [facility]) AST/SGOT 11 U/L 7-37 AST/SGOT [place] ([facility]) ALT/SGPT 29 U/L 12-78 ALT/SGPT [place] ([facility]) anion gap 4 mEq/L 8-16 Below low normal Anion Gap [place] ( [facility]) total protein 7.9 gm/dL 6.4-8.2 Total Protein [place] ( [facility]) albumin 4.2 gm/dL 3.2-5.2 Albumin [place] ([facility]) alkaline phosphatase 74 U/L 45-117 Alkaline Phosph atase [facility] ([facility]) bilirubin,total 1.1 mg/dL 0.2-1.0 Above high normal Bilirubin,tot al [place] ([facility]) albumin/globulin ratio Albumin/globu jose l Ratio [place] ([facility]) ID Date Data Source [id number] 03/09/2021 08:39:00 AM EDT [place] ([facility]) Name Value Range Interpretation Code Description Data Sandra rce(s) Supporting Document(s) white blood count 6.3 10 4.0-10.0 White Blood Count [place] ([facility]) hemoglobin 18.4 g/dL 13.5-17.5 Above high normal Hemoglobin [place] ([facility]) red blood count 5.76 10 4.30-6.10 Red Blood Count ATHE NA ([facility]) hematocrit 51.9 % 42.0-52.0 Hematocrit [place] ([facility]) mean corpuscular hemoglobin 31.9 pg 27.0-33.0 Mean Cor puscular Hemoglobin [facility] ([facility]) mean corpuscular HGB conc 35.5 g/dL 32.0-36.5 Mean Corpu scular HGB Conc [facility] ([facility]) mean corpuscular volume 90.1 fL 80.0-96.0 Mean Corpusc ular Volume [facility] ([facility]) red cell distribution width 12.7 % 11.5-14.5 Red Cell Distribution Width [place] ([facility]) platelet count, automated 171 10 150-450 Platelet C ount, Automated [place] ([facility]) neutrophils % 59.4 % 36.0-66.0 Neutrophils % [place] ( [facility]) baso % 0.5 % 0.0-1.0 Baso % [place] ([facility]) lymph % 28.3 % 24.0-44.0 Lymph % [place] ([facility]) eos % 1.8 % 0.0-3.0 Eos % [place] ([facility]) mono % 9.4 % 2.0-8.0 Above high normal [place] % [place] ([facility]) neutrophils # 3.7 10 1.5-8.5 Neutrophils # [place] ( [facility]) nucleated red blood cell % 0.0 % 0-0 Nucleated Red Blood Cell % [place] ([facility]) immature granulocyte % 0.6 % 0-3.0 Immature Gran ulocyte % [place] ([facility]) lymph # 1.8 10 1.5-5.0 Lymph # [place] ([facility]) eos # 0.1 10 0.0-0.5 Eos # [place] ([facility]) mono # 0.6 10 0.0-0.8 [place] # [place] ([facility]) baso # 0.0 10 0.0-0.2 Baso # [place] ([facility]) ID Date Data Source [id number] 03/09/2021 08:39:00 AM EDT [place] ([facility]) Name Value Range Interpretation Code Description Data Sandra rce(s) Supporting Document(s) malb urine siemens 35.3 mg/L Malb Urine Siemen s [place] ([facility]) creatinine, urine 52.7 mg/dL Creatinine, Urine [place] ([facility]) jesse/creat ratio 66.9 mcg/mg 0.0-30.0 Above high normal Jesse/creat Ra susy [facility] ([facility]) ID Date Data Source [id number] 03/09/2021 08:39:00 AM EDT [place] ([facility]) Name Value Range Interpretation Code Description Data Sandra rce(s) Supporting Document(s) cholesterol level 145 mg/dL <200 Cholesterol Level [place] ([facility]) triglycerides level 176 mg/dL <150 Above high normal Triglycer ides Level [place] ([facility]) HDL cholesterol 47 mg/dL >40 HDL Cholesterol ATHE ([facility]) Cholesterol in LDL [Mass/volume] in Serum or Plasma 63 mg/dL <1 00 LDL Cholesterol [facility] ([facility]) cholesterol risk ratio <5 Cholesterol R isk Ratio [place] ([facility]) non-HDL-C 98 mg/dL Non-hdl-c [facility] ([facility]) ID Date Data Source [id number] 03/09/2021 08:39:00 AM EDT [place] ([facility]) Name Value Range Interpretation Code Description Data Sandra rce(s) Supporting Document(s) glucose, fasting 326 mg/dL 70-100 Above high normal Glucose, Fas ting [facility] ([facility]) blood urea nitrogen 15 mg/dL 7-18 Blood Urea Nitro gen [place] ([facility]) creatinine for GFR 1.04 mg/dL 0.70-1.30 Creatinine for GF R [place] ([facility]) potassium serum 4.3 mEq/L 3.5-5.1 Potassium Serum ATHE NA ([facility]) glomerular filtration rate > 60.0 >56 Glomerula r Filtration Rate [facility] ([facility]) chloride level 102 mEq/L 98-107 Chloride Level V[place] ([facility]) sodium level 137 mEq/L 136-145 Sodium Level [facility] ([facility]) calcium level 9.3 mg/dL 8.5-10.1 Calcium Level [place] ( [facility]) carbon dioxide level 31 mEq/L 21-32 Carbon Dioxide Level V[place] ([facility]) anion gap 4 mEq/L 8-16 Below low normal Anion Gap [place] ( [facility]) alkaline phosphatase 74 U/L 45-117 Alkaline Phosph atase [facility] ([facility]) bilirubin,total 1.1 mg/dL 0.2-1.0 Above high normal Bilirubin,tot al [place] ([facility]) AST/SGOT 11 U/L 7-37 AST/SGOT [place] ([facility]) ALT/SGPT 29 U/L 12-78 ALT/SGPT [place] ([facility]) albumin 4.2 gm/dL 3.2-5.2 Albumin [place] ([facility]) total protein 7.9 gm/dL 6.4-8.2 Total Protein [place] ( [facility]) albumin/globulin ratio Albumin/globu jose l Ratio [facility] ([facility]) ID Date Data Source [id number] 03/09/2021 08:39:00 AM EDT [place] ([facility]) Name Value Range Interpretation Code Description Data Sandra rce(s) Supporting Document(s) white blood count 6.3 10 4.0-10.0 White Blood Count [place] ([facility]) red blood count 5.76 10 4.30-6.10 Red Blood Count AT[place] ([facility]) hemoglobin 18.4 g/dL 13.5-17.5 Above high normal Hemoglobin [facility] ([facility]) mean corpuscular HGB conc 35.5 g/dL 32.0-36.5 Mean Corpu scular HGB Conc [facility] ([facility]) hematocrit 51.9 % 42.0-52.0 Hematocrit [place] ([facility]) mean corpuscular hemoglobin 31.9 pg 27.0-33.0 Mean Cor puscular Hemoglobin [facility] ([facility]) mean corpuscular volume 90.1 fL 80.0-96.0 Mean Corpusc ular Volume [facility] ([facility]) platelet count, automated 171 10 150-450 Platelet C ount, Automated [place] ([facility]) red cell distribution width 12.7 % 11.5-14.5 Red Cell Distribution Width [place] ([facility]) neutrophils % 59.4 % 36.0-66.0 Neutrophils % [place] ( [facility]) mono % 9.4 % 2.0-8.0 Above high normal [place] % [place] ([facility]) lymph % 28.3 % 24.0-44.0 Lymph % [place] ([facility]) eos % 1.8 % 0.0-3.0 Eos % [place] ([facility]) immature granulocyte % 0.6 % 0-3.0 Immature Gran ulocyte % [place] ([facility]) baso % 0.5 % 0.0-1.0 Baso % [place] ([facility]) mono # 0.6 10 0.0-0.8 [place] # [place] ([facility]) lymph # 1.8 10 1.5-5.0 Lymph # [place] ([facility]) nucleated red blood cell % 0.0 % 0-0 Nucleated Red Blood Cell % [place] ([facility]) neutrophils # 3.7 10 1.5-8.5 Neutrophils # [place] ( [facility]) baso # 0.0 10 0.0-0.2 Baso # [place] ([facility]) eos # 0.1 10 0.0-0.5 Eos # [place] ([facility]) ID Date Data Source [id number] 03/09/2021 08:39:00 AM EDT [place] ([facility]) Name Value Range Interpretation Code Description Data Sandra rce(s) Supporting Document(s) creatinine, urine 52.7 mg/dL Creatinine, Urine [place] ([facility]) jesse/creat ratio 66.9 mcg/mg 0.0-30.0 Above high normal Jesse/creat Ra susy [facility] ([facility]) malb urine siemens 35.3 mg/L Malb Urine Siemen s [place] ([facility]) ID Date Data Source [id number] 03/09/2021 08:39:00 AM EDT [place] ([facility]) Name Value Range Interpretation Code Description Data Sandra rce(s) Supporting Document(s) cholesterol level 145 mg/dL <200 Cholesterol Level [place] ([facility]) triglycerides level 176 mg/dL <150 Above high normal Triglycer ides Level [place] ([facility]) Cholesterol in LDL [Mass/volume] in Serum or Plasma 63 mg/dL <1 00 LDL Cholesterol [facility] ([facility]) non-HDL-C 98 mg/dL Non-hdl-c [facility] ([facility]) HDL cholesterol 47 mg/dL >40 HDL Cholesterol ATHE NA ([facility]) cholesterol risk ratio <5 Cholesterol R isk Ratio [place] ([facility]) ID Date Data Source [id number] 03/09/2021 08:39:00 AM EDT [place] ([facility]) Name Value Range Interpretation Code Description Data Sandra rce(s) Supporting Document(s) creatinine for GFR 1.04 mg/dL 0.70-1.30 Creatinine for GF R [place] ([facility]) glomerular filtration rate > 60.0 >56 Glomerula r Filtration Rate [place] ([facility]) glucose, fasting 326 mg/dL 70-100 Above high normal Glucose, Fas ting [place] ([facility]) blood urea nitrogen 15 mg/dL 7-18 Blood Urea Nitro gen [facility] ([facility]) potassium serum 4.3 mEq/L 3.5-5.1 Potassium Serum ATHE NA ([facility]) sodium level 137 mEq/L 136-145 Sodium Level [facility] ([facility]) chloride level 102 mEq/L 98-107 Chloride Level [place] ([facility]) anion gap 4 mEq/L 8-16 Below low normal Anion Gap [place] ( [facility]) calcium level 9.3 mg/dL 8.5-10.1 Calcium Level [place] ( [facility]) carbon dioxide level 31 mEq/L 21-32 Carbon Dioxide Level [place] ([facility]) bilirubin,total 1.1 mg/dL 0.2-1.0 Above high normal Bilirubin,tot al [place] ([facility]) AST/SGOT 11 U/L 7-37 AST/SGOT [place] ([facility]) alkaline phosphatase 74 U/L 45-117 Alkaline Phosph atase [facility] ([facility]) ALT/SGPT 29 U/L 12-78 ALT/SGPT [place] ([facility]) total protein 7.9 gm/dL 6.4-8.2 Total Protein [place] ( [facility]) albumin/globulin ratio Albumin/globu jose l Ratio [place] ([facility]) albumin 4.2 gm/dL 3.2-5.2 Albumin [place] ([facility]) ID Date Data Source [id number] 03/09/2021 08:39:00 AM EDT [place] ([facility]) Name Value Range Interpretation Code Description Data Sandra rce(s) Supporting Document(s) white blood count 6.3 10 4.0-10.0 White Blood Count [place] ([facility]) red blood count 5.76 10 4.30-6.10 Red Blood Count ATHE NA ([facility]) hemoglobin 18.4 g/dL 13.5-17.5 Above high normal Hemoglobin [facility] ([facility]) hematocrit 51.9 % 42.0-52.0 Hematocrit [facility] ([facility]) mean corpuscular HGB conc 35.5 g/dL 32.0-36.5 Mean Corpu scular HGB Conc [facility] ([facility]) mean corpuscular hemoglobin 31.9 pg 27.0-33.0 Mean Cor puscular Hemoglobin [facility] ([facility]) mean corpuscular volume 90.1 fL 80.0-96.0 Mean Corpusc ular Volume [place] ([facility]) red cell distribution width 12.7 % 11.5-14.5 Red Cell Distribution Width [place] ([facility]) platelet count, automated 171 10 150-450 Platelet C ount, Automated [place] ([facility]) neutrophils % 59.4 % 36.0-66.0 Neutrophils % [place] ( [facility]) mono % 9.4 % 2.0-8.0 Above high normal [place] % [place] ([facility]) lymph % 28.3 % 24.0-44.0 Lymph % [place] ([facility]) eos % 1.8 % 0.0-3.0 Eos % [place] ([facility]) baso % 0.5 % 0.0-1.0 Baso % [place] ([facility]) immature granulocyte % 0.6 % 0-3.0 Immature Gran ulocyte % [place] ([facility]) lymph # 1.8 10 1.5-5.0 Lymph # [place] ([facility]) mono # 0.6 10 0.0-0.8 [place] # [place] ([facility]) neutrophils # 3.7 10 1.5-8.5 Neutrophils # [place] ( [facility]) nucleated red blood cell % 0.0 % 0-0 Nucleated Red Blood Cell % [place] ([facility]) baso # 0.0 10 0.0-0.2 Baso # [place] ([facility]) eos # 0.1 10 0.0-0.5 Eos # [place] ([facility]) ID Date Data Source [id number] 02/15/2021 08:58:00 AM EDT [facility]) Name Value Range Interpretation Code Description Data Sandra rce(s) Supporting Document(s) sars-cov-2 negative negative Sars-cov-2 [place] ([facility]) ID Date Data Source [id number] 02/15/2021 08:58:00 AM EDT [place] ([facility]) Name Value Range Interpretation Code Description Data Sandra rce(s) Supporting Document(s) sars-cov-2 negative negative Sars-cov-2 [place] ([facility]) ID Date Data Source [id number] 02/15/2021 08:58:00 AM EDT [facility]) Name Value Range Interpretation Code Description Data Sandra rce(s) Supporting Document(s) sars-cov-2 negative negative Sars-cov-2 [facility]) ID Date Data Source [id number] 02/15/2021 08:58:00 AM EDT [facility]) Name Value Range Interpretation Code Description Data Sandra rce(s) Supporting Document(s) sars-cov-2 negative negative Sars-cov-2 [place] ([facility]) ID Date Data Source [id number] 02/15/2021 08:58:00 AM EDT [facility]) Name Value Range Interpretation Code Description Data Sandra rce(s) Supporting Document(s) sars-cov-2 negative negative Sars-cov-2 [facility]) ID Date Data Source [id number] 02/15/2021 08:58:00 AM EDT [facility]) Name Value Range Interpretation Code Description Data Sandra rce(s) Supporting Document(s) sars-cov-2 negative negative Sars-cov-2 [facility]) ID Date Data Source [id number] 02/15/2021 08:58:00 AM EDT [facility]) Name Value Range Interpretation Code Description Data Sandra rce(s) Supporting Document(s) sars-cov-2 negative negative Sars-cov-2 [place] ([facility]) ID Date Data Source [id number] 02/15/2021 08:58:00 AM EDT [place] ([facility]) Name Value Range Interpretation Code Description Data Sandra rce(s) Supporting Document(s) sars-cov-2 negative negative Sars-cov-2 [facility]) ID Date Data Source [id number] 02/15/2021 08:58:00 AM EDT [facility]) Name Value Range Interpretation Code Description Data Sandra rce(s) Supporting Document(s) sars-cov-2 negative negative Sars-cov-2 [place] ([facility]) ID Date Data Source [id number] 02/15/2021 08:56:00 AM EDT [facility] Name Value Range Interpretation Code Description Data Sandra rce(s) Supporting Document(s) SARS coronavirus 2 RdRp gene [Presence] in Respiratory specimen by ABHINAV with probe detection Not detected [facility] This lab was ordered by [facility] and reported by [facility]. ID Date Data Source [id number] 09/28/2020 12:00:00 AM EST [place] ([facility]) Name Value Range Interpretation Code Description Data Sandra rce(s) Supporting Document(s) Hemoglobin A1c/Hemoglobin.total in Blood 11.4 % Above high normal [facility]) ID Date Data Source [id number] 09/28/2020 12:00:00 AM EST [facility]) Name Value Range Interpretation Code Description Data Sandra rce(s) Supporting Document(s) Hemoglobin A1c/Hemoglobin.total in Blood 11.4 % Above high normal [facility] [place] ([facility]) ID Date Data Source [id number] 09/28/2020 12:00:00 AM EST [place] ([facility]) Name Value Range Interpretation Code Description Data Sandra rce(s) Supporting Document(s) Hemoglobin A1c/Hemoglobin.total in Blood 11.4 % Above high normal [facility] [place] ([facility]) ID Date Data Source [id number] 09/28/2020 12:00:00 AM EST [facility]) Name Value Range Interpretation Code Description Data Sandra rce(s) Supporting Document(s) Hemoglobin A1c/Hemoglobin.total in Blood 11.4 % Above high normal [facility] [place] ([facility]) ID Date Data Source [id number] 09/28/2020 12:00:00 AM EST [facility]) Name Value Range Interpretation Code Description Data Sandra rce(s) Supporting Document(s) Hemoglobin A1c/Hemoglobin.total in Blood 11.4 % Above high normal [facility]) ID Date Data Source [id number] 09/28/2020 12:00:00 AM EST [facility]) Name Value Range Interpretation Code Description Data Sandra rce(s) Supporting Document(s) Hemoglobin A1c/Hemoglobin.total in Blood 11.4 % Above high normal [facility]) ID Date Data Source [id number] 09/28/2020 12:00:00 AM EST [facility]) Name Value Range Interpretation Code Description Data Sandra rce(s) Supporting Document(s) Hemoglobin A1c/Hemoglobin.total in Blood 11.4 % Above high normal [facility]) ID Date Data Source [id number] 09/28/2020 12:00:00 AM EST [place] ([facility]) Name Value Range Interpretation Code Description Data Sandra rce(s) Supporting Document(s) Hemoglobin A1c/Hemoglobin.total in Blood 11.4 % Above high normal [facility]) ID Date Data Source [id number] 09/28/2020 12:00:00 AM EST [place] ([facility]) Name Value Range Interpretation Code Description Data Sandra rce(s) Supporting Document(s) Hemoglobin A1c/Hemoglobin.total in Blood 11.4 % Above high normal [facility] [place] ([facility]) ID Date Data Source [id number] 09/28/2020 12:00:00 AM EST [place] ([facility]) Name Value Range Interpretation Code Description Data Sandra rce(s) Supporting Document(s) Hemoglobin A1c/Hemoglobin.total in Blood 11.4 % Above high normal [facility] [place] ([facility]) Procedure Social History Code Duration Value Status Description Data Source(s ) Smoking 06/28/2021 12:00:00 AM EDT Unknown if ever smoked comp leted Unknown if ever smoked [place] ([facility]) Smoking 06/07/2021 12:00:00 AM EDT Unknown if ever smoked comp leted Unknown if ever smoked [facility] ([facility]) Vital Signs ID Date Data Source [id number] Name Value Range Interpretation Code Description Data Source(s) Diastolic blood pressure 87 mm[Hg] 87 mm[Hg] [facility] ([facility]) Systolic blood pressure 117 mm[Hg] 117 mm[Hg] M [facility] ([facility]) Heart rate 100 /min 100 /min [facility] ([facility]) Oxygen saturation in Arterial blood by Pulse oximetry 96 % 96 % [facility] ([facility]) Body weight 160.00 [lb_av] 160.00 [lb_av] [facility] ([facility]) Body weight 72.576 kg 72.576 [facility] Body mass index (BMI) [Ratio] 24.3 kg/m2 24.3 k g/m2 [facility] ([facility]) Body surface area Derived from formula 1.86 m2 1.86 m2 [facility] ([facility]) Body height 68 [in_i] 68 [in_i] [facility] ([facility]) 5'8" Body height 68 [in_i] 68 [in_i] [place] ([facility]) Body mass index (BMI) [Ratio] 24.3 kg/m2 24.3 k g/m2 [place] ([facility]) Diastolic blood pressure 87 mm[Hg] 87 mm[Hg] [place] ([facility]) Systolic blood pressure 127 mm[Hg] 127 mm[Hg] A [place] ([facility]) Body weight 2560 [oz_av] 2560 [oz_av] [place] ([facility]) Diastolic blood pressure 87 mm[Hg] 87 mm[Hg] [place] ([facility]) Body height 68 [in_i] 68 [in_i] [place] ([facility]) Body mass index (BMI) [Ratio] 24.3 kg/m2 24.3 k g/m2 [place] ([facility]) Systolic blood pressure 127 mm[Hg] 127 mm[Hg] A [place] ([facility]) Body weight 2560 [oz_av] 2560 [oz_av] [place] ([facility]) Body height 68 [in_i] 68 [in_i] [place] ([facility]) Body height 68 [in_i] 68 [in_i] [place] ([facility]) Body height 68 [in_i] 68 [in_i] [place] ([facility]) Body height 68 [in_i] 68 [in_i] [place] ([facility]) Systolic blood pressure 145 mm[Hg] 145 mm[Hg] A [place] ([facility]) Diastolic blood pressure 81 mm[Hg] 81 mm[Hg] [place] ([facility]) Diastolic blood pressure 81 mm[Hg] 81 mm[Hg] [place] ([facility]) Body height 68 [in_i] 68 [in_i] [place] ([facility]) Systolic blood pressure 145 mm[Hg] 145 mm[Hg] A [place] ([facility]) Diastolic blood pressure 81 mm[Hg] 81 mm[Hg] [place] ([facility]) Body height 68 [in_i] 68 [in_i] [place] ([facility]) Systolic blood pressure 145 mm[Hg] 145 mm[Hg] A [place] ([facility]) Diastolic blood pressure 81 mm[Hg] 81 mm[Hg] [place] ([facility]) Body height 68 [in_i] 68 [in_i] [place] ([facility]) Systolic blood pressure 145 mm[Hg] 145 mm[Hg] A [place] ([facility]) Body weight Measured 167.00 lbs Normal (applies to n on-numeric results) 167.00 lbs [facility] ([facility] [address] [facility]) Body height 68 [in_i] 68 [in_i] [place] ([facility]) Body height 68 [in_i] 68 [in_i] [place] ([facility]) Body height 68 [in_i] 68 [in_i] [place] ([facility]) Body height 68 [in_i] 68 [in_i] [place] ([facility]) Body height 68 [in_i] 68 [in_i] [place] ([facility]) Body temperature 98.5 [degF] 98.5 [degF] [facility] ([facility]) Diastolic blood pressure 79 mm[Hg] 79 mm[Hg] [place] ([facility]) Body height 68 [in_i] 68 [in_i] [place] ([facility]) Body mass index (BMI) [Ratio] 25.8 kg/m2 25.8 k g/m2 [place] ([facility]) Systolic blood pressure 120 mm[Hg] 120 mm[Hg] A [place] ([facility]) Body weight 2720 [oz_av] 2720 [oz_av] [place] ([facility]) Diastolic blood pressure 79 mm[Hg] 79 mm[Hg] [place] ([facility]) Body height 68 [in_i] 68 [in_i] [place] ([facility]) Body mass index (BMI) [Ratio] 25.8 kg/m2 25.8 k g/m2 [place] ([facility]) Systolic blood pressure 120 mm[Hg] 120 mm[Hg] [facility] Body weight 2720 [oz_av] 2720 [oz_av] [place] ([facility]) Diastolic blood pressure 79 mm[Hg] 79 mm[Hg] [place] ([facility]) Body height 68 [in_i] 68 [in_i] [place] ([facility]) Body mass index (BMI) [Ratio] 25.8 kg/m2 25.8 k g/m2 [place] ([facility]) Systolic blood pressure 120 mm[Hg] 120 mm[Hg] A [facility] ([facility]) Body weight 2720 [oz_av] 2720 [oz_av] [place] ([facility]) Diastolic blood pressure 79 mm[Hg] 79 mm[Hg] [place] ([facility]) Body height 68 [in_i] 68 [in_i] [place] ([facility]) Body mass index (BMI) [Ratio] 25.8 kg/m2 25.8 k g/m2 [place] ([facility]) Systolic blood pressure 120 mm[Hg] 120 mm[Hg] [facility]) Body weight 2720 [oz_av] 2720 [oz_av] [place] ([facility]) Diastolic blood pressure 79 mm[Hg] 79 mm[Hg] [place] ([facility]) Body height 68 [in_i] 68 [in_i] [place] ([facility]) Body mass index (BMI) [Ratio] 25.8 kg/m2 25.8 k g/m2 [place] ([facility]) Systolic blood pressure 120 mm[Hg] 120 mm[Hg] A [facility] ([facility]) Body weight 2720 [oz_av] 2720 [oz_av] [place] ([facility]) Diastolic blood pressure 79 mm[Hg] 79 mm[Hg] [place] ([facility]) Body height 68 [in_i] 68 [in_i] [place] ([facility]) Body mass index (BMI) [Ratio] 25.8 kg/m2 25.8 k g/m2 [place] ([facility]) Systolic blood pressure 120 mm[Hg] 120 mm[Hg] A [place] ([facility]) Body weight 2720 [oz_av] 2720 [oz_av] [place] ([facility]) Body weight 160.00 [lb_av] 160.00 [lb_av] MED[facility] T ([facility] Body height 68 [in_i] 68 [in_i] [facility] ([facility] 5'8" Systolic blood pressure 124 mm[Hg] 124 mm[Hg] M [facility] ([facility] Diastolic blood pressure 76 mm[Hg] 76 mm[Hg] [facility] ([facility] Heart rate 71 /min 71 /min [facility] ([facility] Body mass index (BMI) [Ratio] 24.3 kg/m2 24.3 k g/m2 [facility] ([facility] Body temperature 97.3 [degF] 97.3 [degF] [facility] ([facility]) Diastolic blood pressure 87 mm[Hg] 87 mm[Hg] [place] ([facility]) Body height 68 [in_i] 68 [in_i] [place] ([facility]) Body mass index (BMI) [Ratio] 25.8 kg/m2 25.8 k g/m2 [place] ([facility]) Systolic blood pressure 132 mm[Hg] 132 mm[Hg] A [place] ([facility]) Body weight 2720 [oz_av] 2720 [oz_av] [place] ([facility]) Diastolic blood pressure 87 mm[Hg] 87 mm[Hg] [place] ([facility]) Body height 68 [in_i] 68 [in_i] [place] ([facility]) Body mass index (BMI) [Ratio] 25.8 kg/m2 25.8 k g/m2 [place] ([facility]) Systolic blood pressure 132 mm[Hg] 132 mm[Hg] [facility]) Body weight 2720 [oz_av] 2720 [oz_av] [place] ([facility]) Diastolic blood pressure 87 mm[Hg] 87 mm[Hg] [place] ([facility]) Body height 68 [in_i] 68 [in_i] [place] ([facility]) Body mass index (BMI) [Ratio] 25.8 kg/m2 25.8 k g/m2 [place] ([facility]) Systolic blood pressure 132 mm[Hg] 132 mm[Hg] A [facility] ([facility]) Body weight 2720 [oz_av] 2720 [oz_av] [place] ([facility]) Diastolic blood pressure 87 mm[Hg] 87 mm[Hg] [place] ([facility]) Body height 68 [in_i] 68 [in_i] [place] ([facility]) Body mass index (BMI) [Ratio] 25.8 kg/m2 25.8 k g/m2 [place] ([facility]) Systolic blood pressure 132 mm[Hg] 132 mm[Hg] [facility]) Body weight 2720 [oz_av] 2720 [oz_av] [place] ([facility]) Diastolic blood pressure 87 mm[Hg] 87 mm[Hg] [place] ([facility]) Body height 68 [in_i] 68 [in_i] [place] ([facility]) Body mass index (BMI) [Ratio] 25.8 kg/m2 25.8 k g/m2 [place] ([facility]) Systolic blood pressure 132 mm[Hg] 132 mm[Hg] A [facility] ([facility]) Body weight 2720 [oz_av] 2720 [oz_av] [place] ([facility]) Diastolic blood pressure 87 mm[Hg] 87 mm[Hg] [place] ([facility]) Systolic blood pressure 132 mm[Hg] 132 mm[Hg] A [place] ([facility]) Body weight 2720 [oz_av] 2720 [oz_av] [place] ([facility]) Body height 68 [in_i] 68 [in_i] [place] ([facility]) Body mass index (BMI) [Ratio] 25.8 kg/m2 25.8 k g/m2 [place] ([facility]) Diastolic blood pressure 87 mm[Hg] 87 mm[Hg] [place] ([facility]) Body height 68 [in_i] 68 [in_i] [place] ([facility]) Body mass index (BMI) [Ratio] 25.8 kg/m2 25.8 k g/m2 [place] ([facility]) Systolic blood pressure 132 mm[Hg] 132 mm[Hg] A [place] ([facility]) Body weight 2720 [oz_av] 2720 [oz_av] [facility] ([facility]) Body height 68 [in_i] 68 [in_i] [place] ([facility]) Body height 68 [in_i] 68 [in_i] [facility] ([facility]) Body height 68 [in_i] 68 [in_i] [facility] ([facility]) Body height 68 [in_i] 68 [in_i] [facility] ([facility]) Body height 68 [in_i] 68 [in_i] [facility] ([facility]) Body height 68 [in_i] 68 [in_i] [facility] ([facility]) Body height 68 [in_i] 68 [in_i] [facility] ([facility]) Body height 68 [in_i] 68 [in_i] [place] ([facility]) Diastolic blood pressure 72 mm[Hg] 72 mm[Hg] [facility] ([facility]) Body height 68 [in_i] 68 [in_i] [facility] ([facility]) Body mass index (BMI) [Ratio] 26.2 kg/m2 26.2 k g/m2 [facility] ([facility]) Systolic blood pressure 124 mm[Hg] 124 mm[Hg] A [place] ([facility]) Body weight 2754 [oz_av] 2754 [oz_av] [facility] ([facility]) Diastolic blood pressure 72 mm[Hg] 72 mm[Hg] [facility] ([facility]) Body height 68 [in_i] 68 [in_i] [place] ([facility]) Body mass index (BMI) [Ratio] 26.2 kg/m2 26.2 k g/m2 [place] ([facility]) Systolic blood pressure 124 mm[Hg] 124 mm[Hg] [facility]) Body weight 2754 [oz_av] 2754 [oz_av] [place] ([facility]) Diastolic blood pressure 72 mm[Hg] 72 mm[Hg] [place] ([facility]) Body height 68 [in_i] 68 [in_i] [place] ([facility]) Body mass index (BMI) [Ratio] 26.2 kg/m2 26.2 k g/m2 [place] ([facility]) Systolic blood pressure 124 mm[Hg] 124 mm[Hg] A [place] ([facility]) Body weight 2754 [oz_av] 2754 [oz_av] [facility] ([facility]) Body weight 2754 [oz_av] 2754 [oz_av] [place] ([facility]) Diastolic blood pressure 72 mm[Hg] 72 mm[Hg] [place] ([facility]) Body height 68 [in_i] 68 [in_i] [place] ([facility]) Body mass index (BMI) [Ratio] 26.2 kg/m2 26.2 k g/m2 [place] ([facility]) Systolic blood pressure 124 mm[Hg] 124 mm[Hg] A [place] ([facility]) Body weight 2754 [oz_av] 2754 [oz_av] [place] ([facility]) Diastolic blood pressure 72 mm[Hg] 72 mm[Hg] [facility] ([facility]) Body height 68 [in_i] 68 [in_i] [facility] ([facility]) Body mass index (BMI) [Ratio] 26.2 kg/m2 26.2 k g/m2 [place] ([facility]) Systolic blood pressure 124 mm[Hg] 124 mm[Hg] A [place] ([facility]) Body weight 2754 [oz_av] 2754 [oz_av] [place] ([facility]) Diastolic blood pressure 72 mm[Hg] 72 mm[Hg] [place] ([facility]) Body height 68 [in_i] 68 [in_i] [facility] ([facility]) Body mass index (BMI) [Ratio] 26.2 kg/m2 26.2 k g/m2 [place] ([facility]) Systolic blood pressure 124 mm[Hg] 124 mm[Hg] [facility]) Diastolic blood pressure 72 mm[Hg] 72 mm[Hg] [place] ([facility]) Body height 68 [in_i] 68 [in_i] [place] ([facility]) Body mass index (BMI) [Ratio] 26.2 kg/m2 26.2 k g/m2 [place] ([facility]) Systolic blood pressure 124 mm[Hg] 124 mm[Hg] A [place] ([facility]) Body weight 2754 [oz_av] 2754 [oz_av] [place] ([facility]) Diastolic blood pressure 72 mm[Hg] 72 mm[Hg] [place] ([facility]) Body height 68 [in_i] 68 [in_i] [facility] ([facility]) Body mass index (BMI) [Ratio] 26.2 kg/m2 26.2 k g/m2 [place] ([facility]) Systolic blood pressure 124 mm[Hg] 124 mm[Hg] A [place] ([facility]) Body weight 2754 [oz_av] 2754 [oz_av] [place] ([facility]) Diastolic blood pressure 72 mm[Hg] 72 mm[Hg] [facility] ([facility]) Body height 68 [in_i] 68 [in_i] [facility] ([facility]) Body mass index (BMI) [Ratio] 26.2 kg/m2 26.2 k g/m2 [facility] ([facility]) Systolic blood pressure 124 mm[Hg] 124 mm[Hg] A [place] ([facility]) Body weight 2754 [oz_av] 2754 [oz_av] [facility] ([facility]) Diastolic blood pressure 72 mm[Hg] 72 mm[Hg] [facility] ([facility]) Body height 68 [in_i] 68 [in_i] [facility] ([facility]) Body mass index (BMI) [Ratio] 26.2 kg/m2 26.2 k g/m2 [facility] ([facility]) Systolic blood pressure 124 mm[Hg] 124 mm[Hg] A [facility] ([facility]) Body weight 2754 [oz_av] 2754 [oz_av] [facility] ([facility]) Diastolic blood pressure 82 mm[Hg] 82 mm[Hg] [facility] ([facility]) Diastolic blood pressure 82 mm[Hg] 82 mm[Hg] [facility] ([facility]) Body height 68 [in_i] 68 [in_i] [facility] ([facility]) Body mass index (BMI) [Ratio] 25.8 kg/m2 25.8 k g/m2 [facility] ([facility]) Systolic blood pressure 130 mm[Hg] 130 mm[Hg] [facility]) Body weight 2710 [oz_av] 2710 [oz_av] [facility] ([facility]) Body height 68 [in_i] 68 [in_i] [facility] ([facility]) Body mass index (BMI) [Ratio] 25.8 kg/m2 25.8 k g/m2 [facility] ([facility]) Systolic blood pressure 130 mm[Hg] 130 mm[Hg] A [place] ([facility]) Body weight 2710 [oz_av] 2710 [oz_av] [facility] ([facility]) Diastolic blood pressure 82 mm[Hg] 82 mm[Hg] [facility] ([facility]) Body height 68 [in_i] 68 [in_i] [facility] ([facility]) Body mass index (BMI) [Ratio] 25.8 kg/m2 25.8 k g/m2 [facility] ([facility]) Systolic blood pressure 130 mm[Hg] 130 mm[Hg] [facility]) Body weight 2710 [oz_av] 2710 [oz_av] [facility] ([facility]) Diastolic blood pressure 82 mm[Hg] 82 mm[Hg] [facility] ([facility]) Body height 68 [in_i] 68 [in_i] [facility] ([facility]) Body mass index (BMI) [Ratio] 25.8 kg/m2 25.8 k g/m2 [facility] ([facility]) Systolic blood pressure 130 mm[Hg] 130 mm[Hg] A [facility] ([facility]) Body weight 2710 [oz_av] 2710 [oz_av] [facility] ([facility]) Diastolic blood pressure 82 mm[Hg] 82 mm[Hg] [facility] ([facility]) Body height 68 [in_i] 68 [in_i] [facility] ([facility]) Body mass index (BMI) [Ratio] 25.8 kg/m2 25.8 k g/m2 [facility] ([facility]) Systolic blood pressure 130 mm[Hg] 130 mm[Hg] [facility]) Body weight 2710 [oz_av] 2710 [oz_av] [facility] ([facility]) Diastolic blood pressure 82 mm[Hg] 82 mm[Hg] [facility] ([facility]) Body height 68 [in_i] 68 [in_i] [facility] ([facility]) Body mass index (BMI) [Ratio] 25.8 kg/m2 25.8 k g/m2 [facility] ([facility]) Systolic blood pressure 130 mm[Hg] 130 mm[Hg] A THENA ([facility]) Body weight 2710 [oz_av] 2710 [oz_av] [facility] ([facility]) Diastolic blood pressure 82 mm[Hg] 82 mm[Hg] [facility] ([facility]) Body height 68 [in_i] 68 [in_i] [facility] ([facility]) Body mass index (BMI) [Ratio] 25.8 kg/m2 25.8 k g/m2 [facility] ([facility]) Systolic blood pressure 130 mm[Hg] 130 mm[Hg] A [facility] ([facility]) Body weight 2710 [oz_av] 2710 [oz_av] [facility] ([facility]) Diastolic blood pressure 82 mm[Hg] 82 mm[Hg] [facility] ([facility]) Body height 68 [in_i] 68 [in_i] [facility] ([facility]) Body mass index (BMI) [Ratio] 25.8 kg/m2 25.8 k g/m2 [facility] ([facility]) Systolic blood pressure 130 mm[Hg] 130 mm[Hg] A [facility] ([facility]) Body weight 2710 [oz_av] 2710 [oz_av] [facility] ([facility]) Diastolic blood pressure 82 mm[Hg] 82 mm[Hg] [facility] ([facility]) Body height 68 [in_i] 68 [in_i] [facility] ([facility]) Body mass index (BMI) [Ratio] 25.8 kg/m2 25.8 k g/m2 [facility] ([facility]) Systolic blood pressure 130 mm[Hg] 130 mm[Hg] [facility] Body weight 2710 [oz_av] 2710 [oz_av] [facility] ([facility]) Diastolic blood pressure 82 mm[Hg] 82 mm[Hg] [facility] ([facility]) Body height 68 [in_i] 68 [in_i] [facility] ([facility]) Body mass index (BMI) [Ratio] 25.8 kg/m2 25.8 k g/m2 [facility] ([facility]) Systolic blood pressure 130 mm[Hg] 130 mm[Hg] A [facility] ([facility]) Body weight 2710 [oz_av] 2710 [oz_av] [facility] ([facility]) Diastolic blood pressure 82 mm[Hg] 82 mm[Hg] [facility] ([facility]) Body height 68 [in_i] 68 [in_i] [facility] ([facility]) Body mass index (BMI) [Ratio] 25.8 kg/m2 25.8 k g/m2 [facility] ([facility]) Systolic blood pressure 130 mm[Hg] 130 mm[Hg] A THENA ([facility]) Body weight 2710 [oz_av] 2710 [oz_av] VANESSA ([facility]) Patient Treatment Plan of Care Planned Activity Planned Date Details Description Data Source (s) Naproxen 500 MG Oral Tablet VANESSA ([facility]) sitagliptin 50 MG Oral Tablet [Januvia] VANESSA ([facility]) sitagliptin 25 MG Oral Tablet [Januvia] VANESSA ([facility]) 3 ML Insulin Lispro 100 UNT/ML Pen Injector [Humalog] VANESSA ([facility]) gabapentin 300 MG Oral Capsule VANESSA ([facility]) Cyclobenzaprine hydrochloride 5 MG Oral Tablet VANESSA ([facility]) Cephalexin 500 MG Oral Capsule VANESSA ([facility]) atorvastatin 20 MG Oral Tablet VANESSA ([facility]) atorvastatin 10 MG Oral Tablet VANESSA ([facility]) Acyclovir 200 MG Oral Capsule VANESSA ([facility]) 0.5 ML dulaglutide 1.5 MG/ML Auto-Injector [Trulicity] VANESSA ([facility]) 1.5 ML Insulin Glargine 300 UNT/ML Pen Injector [Toujeo] [facility]) Suprep Bowel Prep Kit 17.5 gram-3.13 gram-1.6 gram ora l solution MX AND DRK UTD VANESSA ([facility]) Naproxen 500 MG Oral Tablet VANESSA ([facility]) sitagliptin 50 MG Oral Tablet [Januvia] VANESSA ([facility]) sitagliptin 25 MG Oral Tablet [Januvia] VANESSA ([facility]) 3 ML Insulin Lispro 100 UNT/ML Pen Injector [Humalog] VANESSA ([facility]) gabapentin 300 MG Oral Capsule VANESSA ([facility]) Cyclobenzaprine hydrochloride 5 MG Oral Tablet AVNESSA ([facility]) Cephalexin 500 MG Oral Capsule VANESSA ([facility]) atorvastatin 20 MG Oral Tablet VANESSA ([facility]) atorvastatin 10 MG Oral Tablet VANESSA ([facility]) Acyclovir 200 MG Oral Capsule VANESSA ([facility]) 0.5 ML dulaglutide 1.5 MG/ML Auto-Injector [Trulicity] VANESSA ([facility]) 1.5 ML Insulin Glargine 300 UNT/ML Pen Injector [Toujeo] VANESSA ([facility]) Suprep Bowel Prep Kit 17.5 gram-3.13 gram-1.6 gram ora l solution MX AND DRK UTD VANESSA ([facility]) Naproxen 500 MG Oral Tablet VANESSA ([facility]) sitagliptin 25 MG Oral Tablet [Januvia] VANESSA ([facility]) 3 ML Insulin Lispro 100 UNT/ML Pen Injector [Humalog] VANESSA ([facility]) gabapentin 300 MG Oral Capsule VANESSA ([facility]) Cyclobenzaprine hydrochloride 5 MG Oral Tablet VANESSA ([facility]) atorvastatin 20 MG Oral Tablet VANESSA ([facility]) 0.5 ML dulaglutide 1.5 MG/ML Auto-Injector [Trulicity] VANESSA ([facility]) 1.5 ML Insulin Glargine 300 UNT/ML Pen Injector [Toujeo] VANESSA ([facility]) Suprep Bowel Prep Kit 17.5 gram-3.13 gram-1.6 gram ora l solution MX AND DRK UTD VANESSA ([facility]) Naproxen 500 MG Oral Tablet VANESSA ([facility]) sitagliptin 25 MG Oral Tablet [Januvia] VANESSA ([facility]) 3 ML Insulin Lispro 100 UNT/ML Pen Injector [Humalog] VANESSA ([facility]) gabapentin 300 MG Oral Capsule VANESSA ([facility]) Cyclobenzaprine hydrochloride 5 MG Oral Tablet VANESSA ([facility]) atorvastatin 20 MG Oral Tablet VANESSA ([facility]) 0.5 ML dulaglutide 1.5 MG/ML Auto-Injector [Trulicity] VANESSA ([facility]) 1.5 ML Insulin Glargine 300 UNT/ML Pen Injector [Toujeo] VANESSA ([facility]) Suprep Bowel Prep Kit 17.5 gram-3.13 gram-1.6 gram ora l solution MX AND DRK UTD VANESSA ([facility]) Naproxen 500 MG Oral Tablet VANESSA ([facility]) sitagliptin 25 MG Oral Tablet [Januvia] VANESSA ([facility]) 3 ML Insulin Lispro 100 UNT/ML Pen Injector [Humalog] VANESSA ([facility]) gabapentin 300 MG Oral Capsule VANESSA ([facility]) Cyclobenzaprine hydrochloride 5 MG Oral Tablet VANESSA ([facility]) atorvastatin 20 MG Oral Tablet VANESSA ([facility]) 0.5 ML dulaglutide 1.5 MG/ML Auto-Injector [Trulicity] VANESSA ([facility]) 1.5 ML Insulin Glargine 300 UNT/ML Pen Injector [Toujeo] VANESSA ([facility]) Suprep Bowel Prep Kit 17.5 gram-3.13 gram-1.6 gram ora l solution MX AND DRK UTD VANESSA ([facility]) Naproxen 500 MG Oral Tablet VANESSA ([facility]) sitagliptin 25 MG Oral Tablet [Januvia] VANESSA ([facility]) 3 ML Insulin Lispro 100 UNT/ML Pen Injector [Humalog] VANESSA ([facility]) gabapentin 300 MG Oral Capsule VANESSA ([facility]) Cyclobenzaprine hydrochloride 5 MG Oral Tablet VANESSA ([facility]) atorvastatin 20 MG Oral Tablet VANESSA ([facility]) 0.5 ML dulaglutide 1.5 MG/ML Auto-Injector [Trulicity] VANESSA ([facility]) 1.5 ML Insulin Glargine 300 UNT/ML Pen Injector [Toujeo] VANESSA ([facility]) Suprep Bowel Prep Kit 17.5 gram-3.13 gram-1.6 gram ora l solution MX AND DRK UTD VANESSA ([facility]) Naproxen 500 MG Oral Tablet VANESSA ([facility]) sitagliptin 25 MG Oral Tablet [Januvia] VANESSA ([facility]) 3 ML Insulin Lispro 100 UNT/ML Pen Injector [Humalog] VANESSA ([facility]) gabapentin 300 MG Oral Capsule VANESSA ([facility]) Cyclobenzaprine hydrochloride 5 MG Oral Tablet VANESSA ([facility]) atorvastatin 20 MG Oral Tablet VANESSA ([facility]) 0.5 ML dulaglutide 1.5 MG/ML Auto-Injector [Trulicity] VANESSA ([facility]) 1.5 ML Insulin Glargine 300 UNT/ML Pen Injector [Toujeo] VANESSA ([facility]) Suprep Bowel Prep Kit 17.5 gram-3.13 gram-1.6 gram ora l solution MX AND DRK UTD VANESSA ([facility]) OneTouch Verio test strips U UTD TO TEST TID VANESSA ([facility]) Naproxen 500 MG Oral Tablet VANESSA ([facility]) sitagliptin 25 MG Oral Tablet [Januvia] VANESSA ([facility]) 3 ML Insulin Lispro 100 UNT/ML Pen Injector [Humalog] VANESSA ([facility]) gabapentin 300 MG Oral Capsule VANESSA ([facility]) Cyclobenzaprine hydrochloride 5 MG Oral Tablet VANESSA ([facility]) atorvastatin 20 MG Oral Tablet VANESSA ([facility]) 0.5 ML dulaglutide 1.5 MG/ML Auto-Injector [Trulicity] VANESSA ([facility]) 1.5 ML Insulin Glargine 300 UNT/ML Pen Injector [Toujeo] VANESSA ([facility]) Suprep Bowel Prep Kit 17.5 gram-3.13 gram-1.6 gram ora l solution MX AND DRK UTD VANESSA ([facility]) OneTouch Verio test strips U UTD TO TEST TID VANESSA ([facility]) Naproxen 500 MG Oral Tablet VANESSA ([facility]) sitagliptin 25 MG Oral Tablet [Januvia] VANESSA ([facility]) 3 ML Insulin Lispro 100 UNT/ML Pen Injector [Humalog] VANESSA ([facility]) gabapentin 300 MG Oral Capsule VANESSA ([facility]) Cyclobenzaprine hydrochloride 5 MG Oral Tablet VANESSA ([facility]) atorvastatin 20 MG Oral Tablet VANESSA ([facility]) 0.5 ML dulaglutide 1.5 MG/ML Auto-Injector [Trulicity] VANESSA ([facility]) 1.5 ML Insulin Glargine 300 UNT/ML Pen Injector [Toujeo] VANESSA ([facility]) Suprep Bowel Prep Kit 17.5 gram-3.13 gram-1.6 gram ora l solution MX AND DRK UTD VANESSA ([facility]) OneTouch Verio test strips U UTD TO TEST TID VANESSA ([facility]) Naproxen 500 MG Oral Tablet VANESSA ([facility]) sitagliptin 25 MG Oral Tablet [Januvia] VANESSA ([facility]) 3 ML Insulin Lispro 100 UNT/ML [facility] In[facility] gab[facility] 300 MG Oral Capsule VANESSA ([facility]) Cyclobenzaprine hydrochloride 5 MG Oral Tablet VANESSA ([facility]) atorvastatin 20 MG Oral Tablet VANESSA ([facility]) 0.5 ML dulaglutide 1.5 MG/ML Auto-Injector [Trulicity] VANESSA ([facility]) 1.5 ML Insulin Glargine 300 UNT/ML Pen Injector [Toujeo] VANESSA ([facility]) Suprep Bowel Prep Kit 17.5 gram-3.13 gram-1.6 gram ora l solution MX AND DRK UTD VANESSA ([facility]) OneTouch Verio test strips U UTD TO TEST TID VANESSA ([facility]) Naproxen 500 MG Oral Tablet VANESSA ([facility]) 3 ML Insulin Lispro 100 UNT/ML Pen Injector [Humalog] VANESSA ([facility]) Cyclobenzaprine hydrochloride 5 MG Oral Tablet VANESSA ([facility]) atorvastatin 20 MG Oral Tablet VANESSA ([facility]) 0.5 ML dulaglutide 1.5 MG/ML Auto-Injector [Trulicity] VANESSA ([facility]) 1.5 ML Insulin Glargine 300 UNT/ML Pen Injector [Toujeo] VANESSA ([facility]) Suprep Bowel Prep Kit 17.5 gram-3.13 gram-1.6 gram ora l solution MX AND DRK UTD VANESSA ([facility])
--- OUTSIDE RECORDS SUMMARY | 2021-09-10 17:35 | CCD ---
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 If you continue you may have access to information: Regarding HIV / AIDS; Provided by facilities licensed or operated by the [facility] Office of Mental Health; or Provided by the [facility] Office for People With Developmental Disabilities. If such information is present, then the following [facility] mandated warning applies: This information has been [...] law may result in a fine or longterm sentence or both. A general authorization for the release of medical or other information is NOT sufficient authorization for further disc losure. Allergies and Adverse Reactions Type Description Substance Reaction Status Data Source(s ) No Known Drug Allergies No Known Drug Allergies Health System No Known Food Allergies No Known Food Allergies Health System Propensity to adverse reactions seasonal seasonal Health System Family History Family Member Name Family Member Gender Family Member Status Date o f Status Description Data Source(s) Unknown Male Problem [facility] ([facility]) Encounters Encounter Providers Location Date Indications Data Source(s ) Outpatient Attender: Darling Salguero i MS, RPA-CConsultant: Glory Fischer MD 09/09/2021 04:24:36 PM EDT [facility] Gonzalo Motta MD: [address] [place] [address], Ph. Attender: Gonzalo Motta MD [facility] Medical 09/08/2021 12:00:00 AM EDT [place] ([facility]) Outpatient Attender: ELISE YAN MDConsultant: Glory castillo MD 09/07/2021 08:07:00 AM EDT - 09/07/2021 08:07:00 AM EDT Health System Jana Wylie PA-C: [address], [place] [address], Ph. Attender: Jana PERDOMO [facility] Medical 08/25/2021 12:00:00 AM EDT [place] ([facility]) Jana Wylie PA-C: [address], [place] [address], Ph. Attender: Jana PERDOMO [facility] Medical 08/25/2021 12:00:00 AM EDT [place] ([facility]) Jana Wylie PA-C: [address], [place] [address], Ph. Attender: Jana PERDOMO [facility] Medical 07/05/2021 12:00:00 AM EDT [place] ([facility]) Jana Wylie PA-C: [address], [place] [address], Ph. Attender: Jana PERDOMO [facility] Medical 07/05/2021 12:00:00 AM EDT [place] ([facility]) Jana Wylie PA-C: [address], [place] [address], Ph. Attender: Jana PERDOMO [facility] Medical 07/05/2021 12:00:00 AM EDT [place] ([facility]) Extended Individual Psychotherapy - 45 min Attender: Taylor Guajardo [facility] 06/28/2021 01:45:00 AM EDT - 06/28/2021 01:45:00 AM EDT [facility] ([facility]) Jana Wylie PA-C: [address], [place] [address], Ph. Attender: Jana PERDOMO [facility] Medical 06/28/2021 12:00:00 AM EDT [place] ([facility]) Jana Wylie PA-C: [address], [place] [facility] [place] [address], Ph. Attender: Jana PERDOMO [facility] Medical 06/28/2021 12:00:00 AM EDT [place] ([facility]) Jana Wylie PA-C: [address], [facility] [place] [address], Ph. Attender: Jana PERDOMO [facility] Medical 06/28/2021 12:00:00 AM EDT [place] ([facility]) Jana Wylie PA-C: [address], [facility] [place] [address], Ph. Attender: Jana PERDOMO [facility] Medical 06/28/2021 12:00:00 AM EDT [place] ([facility]) Attender: Sallie Guajardo 06/28/2021 12:00:0 0 AM EDT [facility] ([facility]) Outpatient [id number] 06/14/2021 11:48:03 AM EDT [facility] Telemed Diagnostic Eval Attender: Souleymane Harp MD [facility] 06/07/2021 08:30:00 AM EDT - 06/07/2021 08:30:00 AM EDT [facility] ([facility]) Attender: Souleymane Harp MD 06/07/2021 12:00:00 AM EDT [facility] ([facility]) Outpatient Attender: Eligio Sandhu MD Main office - [place] 05/10/2021 01:15:00 PM EDT [facility] ([facility]) Gonzalo Motta MD: [address] [place] [address], Ph. Attender: Gonzalo Motta MD [facility] Medical 04/25/2021 12:00:00 AM EDT [place] ([facility]) Gonzalo Motta MD: [address] [place] [address], Ph. Attender: Gonzalo Motta MD [facility] Medical 04/25/2021 12:00:00 AM EDT [place] ([facility]) Gonzalo Motta MD: [address] [place] [address], Ph. Attender: Gonzalo Motta MD [facility] Medical 04/25/2021 12:00:00 AM EDT [place] ([facility]) Gonzalo Motta MD: [address] [place] [address], Ph. Attender: Gonzalo Motta MD [facility] Medical 04/25/2021 12:00:00 AM EDT [place] ([facility]) Gonzalo Motta MD: [address] [place] [address], Ph. Attender: Gonzalo Motta MD [facility] Medical 04/25/2021 12:00:00 AM EDT [place] ([facility]) Outpatient Attender: Eligio Sandhu MD Main office - [place] 04/07/2021 03:15:00 PM EDT [facility] ([facility]) Outpatient Attender: ESME STYLES MDConsultant: Glory ann MD 04/06/2021 03:08:00 PM EDT - 04/06/2021 03:08:00 PM EDT Health System Jana Wylie PA-C: [address], [place] [address], Ph. Attender: Jana PERDOMO [facility] Medical 03/21/2021 12:00:00 AM EDT [place] ([facility]) Jana Wylie PA-C: [address], [place] [address], Ph. Attender: Jana PERDOMO [facility] Medical 03/21/2021 12:00:00 AM EDT [place] ([facility]) Jana Wylie PA-C: [address], [place] [address], Ph. Attender: Jana PERDOMO [facility] Medical 03/21/2021 12:00:00 AM EDT [place] ([facility]) Jana Wylie PA-C: [address], [place] [address], Ph. Attender: Jana PERDOMO [facility] Medical 03/21/2021 12:00:00 AM EDT [place] ([facility]) Jana Wylie PA-C: [address], [place] [address], Ph. Attender: Jana PERDOMO [facility] Medical 03/21/2021 12:00:00 AM EDT [place] ([facility]) Jana Wylie PA-C: [address], [place] [address], Ph. Attender: Jana PERDOMO [facility] Medical 03/21/2021 12:00:00 AM EDT [place] ([facility]) Outpatient Attender: ЕКАТЕРИНА WILSON [facility] [place] Office 02/18 08:15:00 AM EDT [facility] ([facility] Outpatient Attender: ESME Caceres nder: ELISE YAN MDConsultant: Glory Fischer MD 03/11/2021 02:01:00 PM EDT - 03/11/2021 02:01:00 PM EDT Health System JACINDA PayneC: [address], [place] [address], Ph. Attender: Jana PERDOMO [facility] Medical 03/10/2021 12:00:00 AM EDT [facility]) Jana Wylie PA-C: [address], [place] [address], Ph. Attender: Jana PERDOMO [facility] Medical 03/10/2021 12:00:00 AM EDT [place] ([facility]) Jana Wylie PA-C: [address], [place] [address], Ph. Attender: Jana PERDOMO [facility] Medical 03/10/2021 12:00:00 AM EDT [place] ([facility]) Jana Wylie PA-C: [address], [place] [address], Ph. Attender: Jana PERDOMO [facility] Medical 03/10/2021 12:00:00 AM EDT [place] ([facility]) Jana Wylie PA-C: [address], [place] [address], Ph. Attender: Jana PERDOMO [facility] Medical 03/10/2021 12:00:00 AM EDT [place] ([facility]) Jana Wylie PA-C: [address], [place] [address], Ph. Attender: Jana PERDOMO [facility] Medical 03/10/2021 12:00:00 AM EDT [place] ([facility]) Jana Wylie PA-C: [address], [place] [address], Ph. Attender: Jana PERDOMO [facility] Medical 03/10/2021 12:00:00 AM EDT [place] ([facility]) Jana Wylie PA-C: [address], [place] [address], Ph. Attender: Jana PERDOMO [facility] Medical 03/09/2021 12:00:00 AM EDT [place] ([facility]) Jana Wylie PA-C: [address], [place] [address], Ph. Attender: Jana PERDOMO [facility] Medical 03/09/2021 12:00:00 AM EDT [place] ([facility]) Jana Wylie PA-C: [address], [place] [address], Ph. Attender: Jana PERDOMO [facility] Medical 03/09/2021 12:00:00 AM EDT [place] ([facility]) Jana Wylie PA-C: [address], [place] [address], Ph. Attender: Jana PERDOMO [facility] Medical 03/09/2021 12:00:00 AM EDT [place] ([facility]) Jana Wylie PA-C: [address], [facility] [place] [address], Ph. Attender: Jana PERDOMO [facility] Medical 03/09/2021 12:00:00 AM EDT [place] ([facility]) Jana Wylie PA-C: [address], [place] [facility] [address], Ph. Attender: Jana PERDOMO [facility] Medical 03/09/2021 12:00:00 AM EDT [place] ([facility]) Jana Wylie PA-C: [address], [facility] [place] [address], Ph. Attender: Jana PERDOMO [facility] Medical 03/09/2021 12:00:00 AM EDT [place] ([facility]) Jana Wylie PA-C: [address], [facility] [place] [address], Ph. Attender: Jana PERDOMO [facility] Medical 03/09/2021 12:00:00 AM EDT [place] ([facility]) Gonzalo Motta MD: [address], [place] [address], Ph. Attender: Gonzalo Motta MD [facility] Medical 02/21/2021 12:00:00 AM EDT [place] ([facility]) Gonzalo Motta MD: [address], [place] [address], Ph. Attender: Gonzalo Motta MD [facility] Medical 02/21/2021 12:00:00 AM EDT [place] ([facility]) Gonzalo Motta MD: [address] [place] [address], Ph. Attender: Gonzalo Motta MD [facility] Medical 02/21/2021 12:00:00 AM EDT [place] ([facility]) Gonzalo Motta MD: [address] [place] [address], Ph. Attender: Gonzalo Motta MD [facility] Medical 02/21/2021 12:00:00 AM EDT [place] ([facility]) Gonzalo Motta MD: [address] [place] [address], Ph. Attender: Gonzalo Motta MD [facility] Medical 02/21/2021 12:00:00 AM EDT [place] ([facility]) Gonzalo Motta MD: [address] [place] [address], Ph. Attender: Gonzalo Motta MD [facility] Medical 02/21/2021 12:00:00 AM EDT [place] ([facility]) Gonzalo Motta MD: [address] [place] [address], Ph. Attender: Gonzalo Motta MD [facility] Medical 02/21/2021 12:00:00 AM EDT [place] ([facility]) Gonzalo Motta MD: [address] [place] [address], Ph. Attender: Gonzalo Motta MD [facility] Medical 02/21/2021 12:00:00 AM EDT [place] ([facility]) Gonzalo Motta MD: [address] [place] [address], Ph. Attender: Gonzalo Motta MD [facility] Medical 02/21/2021 12:00:00 AM EDT [place] ([facility]) Jana Wylie PA-C: [address], [place] [address], Ph. Attender: Jana PERDOMO [facility] Medical 02/15/2021 12:00:00 AM EDT [place] ([facility]) Jana Wylie PA-C: [address], [place] [address], Ph. Attender: Jana PERDOMO [facility] Medical 02/15/2021 12:00:00 AM EDT [place] ([facility]) Jana Wylie PA-C: [address], [place] [address], Ph. Attender: Jana PERDOMO [facility] Medical 02/15/2021 12:00:00 AM EDT [place] ([facility]) Jana Wylie PA-C: [address], [place] [address], Ph. Attender: Jana PERDOMO [facility] Medical 02/15/2021 12:00:00 AM EDT [place] ([facility]) Jana Wylie PA-C: [address], [place] [address], Ph. Attender: Jana PERDOMO [facility] Medical 02/15/2021 12:00:00 AM EDT [place] ([facility]) Jana Wylie PA-C: [address], [place] [address], Ph. Attender: Jana PERDOMO [facility] Medical 02/15/2021 12:00:00 AM EDT [place] ([facility]) Jana Wylie PA-C: [address], [place] [address], Ph. Attender: Jana PERDOMO [facility] Medical 02/15/2021 12:00:00 AM EDT [place] ([facility]) Jana Wylie PA-C: [address], [place] [address], Ph. Attender: Jana PERDOMO [facility] Medical 02/15/2021 12:00:00 AM EDT [place] ([facility]) Jana Wylie PA-C: [address], [place] [address], Ph. Attender: Jana PERDOMO [facility] Medical 02/15/2021 12:00:00 AM EDT [place] ([facility]) Jana Wylie PA-C: [address], [place] [address], Ph. Attender: Jana PERDOMO [facility] Medical 02/15/2021 12:00:00 AM EDT [place] ([facility]) Outpatient Attender: MADHURI HELLER 09/30/2020 08:32:01 A M [facility] Jana Wylie PA-C: [address], [place] [address], Ph. Attender: Jana PERDOMO [facility] Medical 09/30/2020 12:00:00 AM EST [facility]) Jana Wylie PA-C: [address], [place] [address], Ph. Attender: Jana PERDOMO [facility] Medical 09/30/2020 12:00:00 AM EST [place] ([facility]) Jaan Wylie PA-C: [address], [place] [address], Ph. Attender: Jana PERDOMO [facility] Medical 09/30/2020 12:00:00 AM EST [place] ([facility]) Jana Wylie PA-C: [address], [place] [address], Ph. Attender: Jana PERDOMO [facility] Medical 09/30/2020 12:00:00 AM EST [place] ([facility]) Jana Wylie PA-C: [address], [place] [address], Ph. Attender: Jana PERDOMO [facility] Medical 09/30/2020 12:00:00 AM EST [place] ([facility]) Jana Wylie PA-C: [address], [place] [address], Ph. Attender: Jana PERDOMO [facility] Medical 09/30/2020 12:00:00 AM EST [place] ([facility]) Jana Wylie PA-C: [address], [place] [address], Ph. Attender: Jana PERDOMO [facility] Medical 09/30/2020 12:00:00 AM EST [place] ([facility]) Jana Wylie PA-C: [address], [place] [address], Ph. Attender: Jana PERDOMO [facility] Medical 09/30/2020 12:00:00 AM EST [facility]) Jana Wylie PA-C: [address], [place] [facility] [place] [address], Ph. Attender: Jana PERDOMO [facility] Medical 09/30/2020 12:00:00 AM EST [facility]) Jana Wylie PA-C: [address], [place] [facility] [place] [address], Ph. Attender: Jana PERDOMO [facility] Medical 09/30/2020 12:00:00 AM EST [facility]) Jana Wylie PA-C: [address], [place] [address], Ph. Attender: Jana PERDOMO [facility] 09/30/2020 12:00:00 AM EST [place] ([facility]) Outpatient Attender: ESME STYLES MDConsultant: Glory ann MD 10/15/2018 01:14:32 PM [facility] - 10/15/2018 01:13:00 PM [facility] Functional Status Immunizations Vaccine Date Status Description Data Source(s) COVID-19, mRNA, LNP-S, PF, 100 mcg/0.5 mL dose 09/08/2021 08 :59:35 AM EDT completed 10.5 mL [place] ([facility]) Tdap 08/25/2021 04:27:00 PM EDT completed 08/25/2021 0.5 mL [place] ([facility]) Medications Medication Brand Name Start Date Product Form Dose Route Admi nistrative Instructions Pharmacy Instructions Status Indications Reaction Description Data Source(s) 24 HR paliperidone 1.5 MG Extended Release Oral Tablet [Inve ga] Invega 06/07/2021 12:00:00 AM EDT 1.5 mg by mouth completed <td ID="MedicationRxNorm_3">461183</td><td ID="MedicationMedication_3">Invega</td><td ID="MedicationRoute_3">by mouth</td><td ID="MedicationRouteConcept_3">Q32350</td><td ID="MedicationStartDate_3">06/07/2021</td><td ID="MedicationStopDate_3">07/07/2021</td><td ID="MedicationDosageFrequency_3">at bedtime</td><td ID="MedicationDuration_3">30</td><td ID="MedicationFormulaStrength_3">1.5 mg</td><td ID="MedicationDosageForm_3">tablet extended release 24hr</td><td ID="MedicationDosageFormCode_3"></td><td ID="MedicationDosageDescription_3"></td><td ID="MedicationMedicationId_3">[id number]</td><td ID="MedicationAccount_3">[id number]</td><td ID="MedicationNpid_3">[id number]</td><td ID="MedicationAuthorFirstName_3">Souleymane</td><td ID="MedicationAuthorLastName_3">Harp</td><td ID="MedicationTaxonomyCode_3">[id number]</td><td ID="MedicationTaxonomyDesc_3"> Psychiatry</td><td ID="MedicationPhoneNumber_3">[phone]</td> [facility] ([facility]) 24 HR paliperidone 1.5 MG Extended Release Oral Tablet [Inve ga] Invega 06/07/2021 12:00:00 AM EDT 1.5 mg by mouth completed <td ID="MedicationRxNorm_1">702747</td><td ID="MedicationMedication_1">Invega</td><td ID="MedicationRoute_1">by mouth</td><td ID="MedicationRouteConcept_1">Q55230</td><td ID="MedicationStartDate_1">06/07/2021</td><td ID="MedicationStopDate_1">07/07/2021</td><td ID="MedicationDosageFrequency_1">at bedtime</td><td ID="MedicationDuration_1">30</td><td ID="MedicationFormulaStrength_1">1.5 mg</td><td ID="MedicationDosageForm_1">tablet extended release 24hr</td><td ID="MedicationDosageFormCode_1"></td><td ID="MedicationDosageDescription_1"></td><td ID="MedicationMedicationId_1">[id number]</td><td ID="MedicationAccount_1">[id number]</td><td ID="MedicationNpid_1">[id number]</td><td ID="MedicationAuthorFirstName_1">Souleymane</td><td ID="MedicationAuthorLastName_1">Harp</td><td ID="MedicationTaxonomyCode_1">[id number]</td><td ID="MedicationTaxonomyDesc_1"> Psychiatry</td><td ID="MedicationPhoneNumber_1">[phone]</td> [facility] ([facility]) Fluoxetine 10 MG Oral Capsule [Prozac] Prozac 07/02/2018 12:0 0:00 AM EDT 10 mg completed <td ID="Me dicationRxNorm_2">663368</td><td ID="MedicationMedication_2">Prozac</td><td ID="MedicationRoute_2"></td><td ID="MedicationRouteConcept_2"></td><td ID="MedicationStartDate_2">07/02/2018</td><td ID="MedicationStopDate_2">06/07/2021</td><td ID="MedicationDosageFrequency_2">every morning</td><td ID="MedicationDuration_2"></td><td ID="MedicationFormulaStrength_2">10 mg</td><td ID="MedicationDosageForm_2">capsule</td><td ID="MedicationDosageFormCode_2"></td><td ID="MedicationDosageDescription_2">as directed</td><td ID="MedicationMedicationId_2">[id number]</td><td ID="MedicationAccount_2">[id number]</td><td ID="MedicationNpid_2">[id number]</td><td ID="MedicationAuthorFirstName_2">Elsa</td><td ID="MedicationAuthorLastName_2">MacQueen</td><td ID="MedicationTaxonomyCode_2">[id number]</td><td ID="MedicationTaxonomyDesc_2">Psychiatric/Mental Health</td><td ID="MedicationPhoneNumber_2">[phone]</td> [facility] ([facility]) Lurasidone Hydrochloride 80 MG Oral Tablet [Latuda] Latuda 07/19/2017 12:00:00 AM EDT 80 mg completed <td ID ="MedicationRxNorm_1">[id number]</td><td ID="MedicationMedication_1">Latuda</td><td ID="MedicationRoute_1"></td><td ID="MedicationRouteConcept_1"></td><td ID="MedicationStartDate_1">07/19/2017</td><td ID="MedicationStopDate_1">06/07/2021</td><td ID="MedicationDosageFrequency_1">once a day</td><td ID="MedicationDuration_1"></td><td ID="MedicationFormulaStrength_1">80 mg</td><td ID="MedicationDosageForm_1">tablet</td><td ID="MedicationDosageFormCode_1"></td><td ID="MedicationDosageDescription_1"></td><td ID="MedicationMedicationId_1">[id number]</td><td ID="MedicationAccount_1">[id number]</td><td ID="MedicationNpid_1">[id number]</td><td ID="MedicationAuthorFirstName_1">Elsa</td><td ID="MedicationAuthorLastName_1">MacQueen</td><td ID="MedicationTaxonomyCode_1">[id number]</td><td ID="MedicationTaxonomyDesc_1">Psychiatric/Mental Health</td><td ID="MedicationPhoneNumber_1">[phone]</td> [facility] ([facility]) atorvastatin 20 MG Oral Tablet atorvastatin 20 mg tabl et TK 1 T PO QD atorvastatin 20 mg tablet TK 1 T PO QD completed atorvastatin 20 MG Oral Tablet [facility] ([facility]) 0.5 ML dulaglutide 1.5 MG/ML Auto-Inject or [Trulicity] Trulicity 0.75 mg/0.5 mL subcutaneous pen injector Trulicity 0.75 mg/0.5 mL subcutaneous pen injector completed 0.5 ML dulaglu tide 1.5 MG/ML Auto-Injector [Trulicity] [place] ([facility]) 0.5 ML dulaglutide 1.5 MG/ML Auto-Inject or [Trulicity] Trulicity 0.75 mg/0.5 mL subcutaneous pen injector Trulicity 0.75 mg/0.5 mL subcutaneous pen injector completed 0.5 ML dulaglu tide 1.5 MG/ML Auto-Injector [Trulicity] [place] ([facility]) Cyclobenzaprine hydrochloride 5 MG Oral Tablet cyclobenzaprine 5 mg tablet TAKE ONE TABLET BY MOUTH THREE TIMES DAILY NEEDED FOR MUSCLE SPASMS cyclobenzaprine 5 mg tablet TAKE ONE TABLET BY MOUTH THREE TIMES DAILY NEEDED FOR MUSCLE SPASMS completed cyclobenzaprine hydrochloride 5 MG Oral Tablet [place] ([facility]) OneTouch Verio test strips U UTD TO TEST TID [id number] completed OneTouch Verio test strips [place] ([facility]) sitagliptin 25 MG Oral Tablet [Januvia] Januvia 25 mg tablet Januvia 25 mg tablet completed sitagliptin 25 MG Oral Tablet [Januvia] [place] ([facility]) Naproxen 500 MG Oral Tablet naproxen 500 mg tablet TK 1 T PO BID P naproxen 500 mg tablet TK 1 T PO BID P completed naproxen 500 MG Oral Tablet [place] ([facility]) sitagliptin 25 MG Oral Tablet [Januvia] Januvia 25 mg tablet Januvia 25 mg tablet completed sitagliptin 25 MG Oral Tablet [Januvia] [place] ([facility]) atorvastatin 20 MG Oral Tablet atorvastatin 20 mg tabl et TK 1 T PO QD atorvastatin 20 mg tablet TK 1 T PO QD completed atorvastatin 20 MG Oral Tablet [place] ([facility]) atorvastatin 20 MG Oral Tablet atorvastatin 20 mg tabl et TK 1 T PO QD atorvastatin 20 mg tablet TK 1 T PO QD completed atorvastatin 20 MG Oral Tablet [place] ([facility]) Acyclovir 200 MG Oral Capsule acyclovir 200 mg capsule acycl ovir 200 mg capsule completed acyclovir 200 MG Oral Capsule [place] ([facility]) 0.5 ML dulaglutide 1.5 MG/ML Auto-Inject or [Trulicity] Trulicity 0.75 mg/0.5 mL subcutaneous pen injector Trulicity 0.75 mg/0.5 mL subcutaneous pen injector completed 0.5 ML dulaglu tide 1.5 MG/ML Auto-Injector [Trulicity] [place] ([facility]) 3 ML Insulin Lispro 100 UNT/ML Pen Injec tor [Humalog] Humalog KwikPen (U-100) Insulin 100 unit/mL subcutaneous Humalog KwikPen (U-100) Insulin 100 unit /mL subcutaneous completed 3 ML insulin lispro 100 UNT/ML Pen Injector [Humalog] [place] ([facility]) Naproxen 500 MG Oral Tablet naproxen 500 mg tablet TK 1 T PO BID P naproxen 500 mg tablet TK 1 T PO BID P completed naproxen 500 MG Oral Tablet [place] ([facility]) atorvastatin 10 MG Oral Tablet atorvastatin 10 mg tabl et atorvastatin 10 mg tablet completed atorvastatin 10 MG Oral Tablet [place] ([facility]) Suprep Bowel Prep Kit 17.5 gram-3.13 gram-1.6 gram ora l solution MX AND DRK UTD [id number] completed Suprep Bowel Prep Kit 17.5 gram-3.13 gram-1.6 gram oral solution [place] ([facility]) Cephalexin 500 MG Oral Capsule cephalexin 500 mg capsu le cephalexin 500 mg capsule completed cephalexin 500 MG Oral Capsule [place] ([facility]) atorvastatin 20 MG Oral Tablet atorvastatin [...] MG Oral Tablet [place] ([facility]) 0.5 ML dulaglutide 1.5 MG/ML Auto-Inject or [Trulicity] Trulicity 0.75 mg/0.5 mL subcutaneous pen injector Trulicity 0.75 mg/0.5 mL subcutaneous pen injector completed 0.5 ML dulaglu tide 1.5 MG/ML Auto-Injector [Trulicity] [place] ([facility]) 1.5 ML Insulin Glargine 300 UNT/ML [...] insulin glargine 300 UNT/ML Pen Injector [Toujeo] [place] ([facility]) gabapentin 300 MG Oral Capsule gabapenti n 300 mg capsule TAKE 1 CAPSULE BY MOUTH THREE TIMES DAILY gabapentin 300 mg capsule TAKE 1 CAPSULE BY MOUTH THREE TIMES DAILY completed gabapentin 300 MG Oral Capsule [place] ([facility]) 0.5 ML dulaglutide 1.5 MG/ML Auto-Inject or [Trulicity] Trulicity 0.75 mg/0.5 mL subcutaneous pen injector Trulicity 0.75 mg/0.5 mL subcutaneous pen injector completed 0.5 ML dulaglu tide 1.5 MG/ML Auto-Injector [Trulicity] [place] ([facility]) sitagliptin 50 MG Oral Tablet [Januvia] Januvia 50 mg tablet Januvia 50 mg tablet completed sitagliptin 50 MG Oral Tablet [Januvia] [place] ([facility]) 3 ML Insulin Lispro 100 UNT/ML Pen Injec tor [Humalog] Humalog KwikPen (U-100) Insulin 100 unit/mL subcutaneous Humalog KwikPen (U-100) Insulin 100 unit /mL subcutaneous completed 3 ML insulin lispro 100 UNT/ML Pen Injector [Humalog] [place] ([facility]) 1.5 ML Insulin [...] glargine 300 UNT/ML Pen Injector [Toujeo] [place] ([facility]) 1.5 ML Insulin [...] glargine 300 UNT/ML Pen Injector [Toujeo] [place] ([facility]) 1.5 ML Insulin [...] glargine 300 UNT/ML Pen Injector [Toujeo] [place] ([facility]) OneTouch Verio test strips U UTD TO TEST TID [id number] completed OneTouch Verio test strips [place] ([facility]) 1.5 ML Insulin Glargine [...] glargine 300 UNT/ML Pen Injector [Toujeo] [place] ([facility]) Naproxen 500 MG Oral Tablet naproxen 500 mg tablet TK 1 T PO BID P naproxen 500 mg tablet TK 1 T PO BID P completed naproxen 500 MG Oral Tablet [place] ([facility]) sitagliptin 25 MG Oral Tablet [Januvia] Januvia 25 mg tablet Januvia 25 mg tablet completed sitagliptin 25 MG Oral Tablet [Januvia] [place] ([facility]) Cyclobenzaprine hydrochloride 5 MG Oral Tablet cyclobenzaprine 5 mg tablet TAKE ONE TABLET BY MOUTH THREE TIMES DAILY NEEDED FOR MUSCLE SPASMS cyclobenzaprine 5 mg tablet TAKE ONE TABLET BY MOUTH THREE TIMES DAILY NEEDED FOR MUSCLE SPASMS completed cyclobenzaprine hydrochloride 5 MG Oral Tablet [place] ([facility]) Naproxen 500 MG Oral Tablet naproxen 500 mg tablet TK 1 T PO BID P naproxen 500 mg tablet TK 1 T PO BID P completed naproxen 500 MG Oral Tablet [place] ([facility]) 3 ML Insulin Lispro 100 UNT/ML Pen Injec tor [Humalog] Humalog KwikPen (U-100) Insulin 100 unit/mL subcutaneous Humalog KwikPen (U-100) Insulin 100 unit /mL subcutaneous completed 3 ML insulin lispro 100 UNT/ML Pen Injector [Humalog] [place] ([facility]) Naproxen 500 MG Oral Tablet naproxen 500 mg tablet TK 1 T PO BID P naproxen 500 mg tablet TK 1 T PO BID P completed naproxen 500 MG Oral Tablet [place] ([facility]) Suprep Bowel Prep Kit 17.5 gram-3.13 gram-1.6 gram ora l solution MX AND DRK UTD [id number] completed Suprep Bowel Prep Kit 17.5 gram-3.13 gram-1.6 gram oral solution [place] ([facility]) atorvastatin 20 MG Oral Tablet atorvastatin 20 mg tabl et TK 1 T PO QD atorvastatin 20 mg tablet TK 1 T PO QD completed atorvastatin 20 MG Oral Tablet [place] ([facility]) Acyclovir 200 MG Oral Capsule acyclovir 200 mg capsule acycl ovir 200 mg capsule completed acyclovir 200 MG Oral Capsule [place] ([facility]) sitagliptin 25 MG Oral Tablet [Januvia] Januvia 25 mg tablet Januvia 25 mg tablet completed sitagliptin 25 MG Oral Tablet [Januvia] [place] ([facility]) sitagliptin 25 MG Oral Tablet [Januvia] Januvia 25 mg tablet Januvia 25 mg tablet completed sitagliptin 25 MG Oral Tablet [Januvia] [place] ([facility]) gabapentin 300 MG Oral Capsule gabapenti n 300 mg capsule TAKE 1 CAPSULE BY MOUTH THREE TIMES DAILY gabapentin 300 mg capsule TAKE 1 CAPSULE BY MOUTH THREE TIMES DAILY completed gabapentin 300 MG Oral Capsule [place] ([facility]) 1.5 ML Insulin Glargine 300 UNT/ML [...] insulin glargine 300 UNT/ML Pen Injector [Toujeo] [facility]) 0.5 ML dulaglutide 1.5 MG/ML Auto-Inject or [Trulicity] Trulicity 0.75 mg/0.5 mL subcutaneous pen injector Trulicity 0.75 mg/0.5 mL subcutaneous pen injector completed 0.5 ML dulaglu tide 1.5 MG/ML Auto-Injector [Trulicity] [place] ([facility]) gabapentin 300 MG Oral Capsule gabapenti n 300 mg capsule TAKE 1 CAPSULE BY MOUTH THREE TIMES DAILY gabapentin 300 mg capsule TAKE 1 CAPSULE BY MOUTH THREE TIMES DAILY completed gabapentin 300 MG Oral Capsule [place] ([facility]) sitagliptin 25 MG Oral Tablet [Januvia] Januvia 25 mg tablet Januvia 25 mg tablet completed sitagliptin 25 MG Oral Tablet [Januvia] [place] ([facility]) gabapentin 300 MG Oral Capsule gabapenti n 300 mg capsule TAKE 1 CAPSULE BY MOUTH THREE TIMES DAILY gabapentin 300 mg capsule TAKE 1 CAPSULE BY MOUTH THREE TIMES DAILY completed gabapentin 300 MG Oral Capsule [facility]) Cephalexin 500 MG Oral Capsule cephalexin 500 mg capsu le cephalexin 500 mg capsule completed cephalexin 500 MG Oral Capsule [place] ([facility]) Suprep Bowel Prep Kit 17.5 gram-3.13 gram-1.6 gram ora l solution MX AND DRK UTD [id number] completed Suprep Bowel Prep Kit 17.5 gram-3.13 gram-1.6 gram oral solution [place] ([facility]) 0.5 ML dulaglutide 1.5 MG/ML Auto-Inject or [Trulicity] Trulicity 0.75 mg/0.5 mL subcutaneous pen injector Trulicity 0.75 mg/0.5 mL subcutaneous pen injector completed 0.5 ML dulaglu tide 1.5 MG/ML Auto-Injector [Trulicity] [place] ([facility]) 1.5 ML Insulin Glargine 300 UNT/ML [...] glargine 300 UNT/ML Pen Injector [Toujeo] [place] ([facility]) 3 ML Insulin Lispro 100 UNT/ML Pen Injec tor [Humalog] Humalog KwikPen (U-100) Insulin 100 unit/mL subcutaneous Humalog KwikPen (U-100) Insulin 100 unit /mL subcutaneous completed 3 ML insulin lispro 100 UNT/ML Pen Injector [Humalog] [place] ([facility]) 1.5 ML Insulin [...] glargine 300 UNT/ML Pen Injector [Toujeo] [place] ([facility]) sitagliptin 25 MG Oral Tablet [Januvia] Januvia 25 mg tablet Januvia 25 mg tablet completed sitagliptin 25 MG Oral Tablet [Januvia] [place] ([facility]) 3 ML Insulin Lispro 100 UNT/ML Pen Injec tor [Humalog] Humalog KwikPen (U-100) Insulin 100 unit/mL subcutaneous Humalog KwikPen (U-100) Insulin 100 unit /mL subcutaneous completed 3 ML insulin lispro 100 UNT/ML Pen Injector [Humalog] [place] ([facility]) atorvastatin 20 MG [...] MG Oral Tablet [place] ([facility]) Suprep Bowel Prep Kit 17.5 gram-3.13 gram-1.6 gram ora l solution MX AND DRK UTD 488301 completed Suprep Bowel Prep Kit 17.5 gram-3.13 gram-1.6 gram oral solution [place] ([facility]) sitagliptin 25 MG Oral Tablet [Januvia] Januvia 25 mg tablet Januvia 25 mg tablet completed sitagliptin 25 MG Oral Tablet [Januvia] [place] ([facility]) Naproxen 500 MG Oral Tablet naproxen 500 mg tablet TK 1 T PO BID P naproxen 500 mg tablet TK 1 T PO BID P completed naproxen 500 MG Oral Tablet [place] ([facility]) gabapentin 300 MG Oral Capsule gabapenti n 300 mg capsule TAKE 1 CAPSULE BY MOUTH THREE TIMES DAILY gabapentin 300 mg capsule TAKE 1 CAPSULE BY MOUTH THREE TIMES DAILY completed gabapentin 300 MG Oral Capsule [place] ([facility]) atorvastatin 10 MG Oral Tablet atorvastatin 10 mg tabl et atorvastatin 10 mg tablet completed atorvastatin 10 MG Oral Tablet [place] ([facility]) Naproxen 500 MG Oral Tablet naproxen 500 mg tablet TK 1 T PO BID P naproxen 500 mg tablet TK 1 T PO BID P completed naproxen 500 MG Oral Tablet [place] ([facility]) Suprep Bowel Prep Kit 17.5 gram-3.13 gram-1.6 gram ora l solution MX AND DRK UTD 212409 completed Suprep Bowel Prep Kit 17.5 gram-3.13 gram-1.6 gram oral solution [place] ([facility]) Suprep Bowel Prep Kit 17.5 gram-3.13 gram-1.6 gram ora l solution MX AND DRK UTD [id number] completed Suprep Bowel Prep Kit 17.5 gram-3.13 gram-1.6 gram oral solution [place] ([facility]) OneTouch Verio test strips U UTD TO TEST TID [id number] completed OneTouch Verio test strips [place] ([facility]) Suprep Bowel Prep Kit 17.5 gram-3.13 gram-1.6 gram ora l solution MX AND DRK UTD [id number] completed Suprep Bowel Prep Kit 17.5 gram-3.13 gram-1.6 gram oral solution [place] ([facility]) 0.5 ML dulaglutide 1.5 MG/ML Auto-Inject or [Trulicity] Trulicity 0.75 mg/0.5 mL subcutaneous pen injector Trulicity 0.75 mg/0.5 mL subcutaneous pen injector completed 0.5 ML dulaglu tide 1.5 MG/ML Auto-Injector [Trulicity] [place] ([facility]) Suprep Bowel Prep Kit 17.5 gram-3.13 gram-1.6 gram ora l solution MX AND DRK UTD [id number] completed Suprep Bowel Prep Kit 17.5 gram-3.13 gram-1.6 gram oral solution [place] ([facility]) atorvastatin 20 MG Oral Tablet atorvastatin 20 mg tabl et TK 1 T PO QD atorvastatin 20 mg tablet TK 1 T PO QD completed atorvastatin 20 MG Oral Tablet [place] ([facility]) 1.5 ML Insulin [...] glargine 300 UNT/ML Pen Injector [Toujeo] [place] ([facility]) sitagliptin 25 MG Oral Tablet [Januvia] Januvia 25 mg tablet Januvia 25 mg tablet completed sitagliptin 25 MG Oral Tablet [Januvia] [place] ([facility]) gabapentin 300 MG Oral Capsule gabapenti n 300 mg capsule TAKE 1 CAPSULE BY MOUTH THREE TIMES DAILY gabapentin 300 mg capsule TAKE 1 CAPSULE BY MOUTH THREE TIMES DAILY completed gabapentin 300 MG Oral Capsule [place] ([facility]) Naproxen 500 MG Oral Tablet naproxen 500 mg tablet TK 1 T PO BID P naproxen 500 mg tablet TK 1 T PO BID P completed naproxen 500 MG Oral Tablet [place] ([facility]) Naproxen 500 MG Oral Tablet naproxen 500 mg tablet TK 1 T PO BID P naproxen 500 mg tablet TK 1 T PO BID P completed naproxen 500 MG Oral Tablet [place] ([facility]) sitagliptin 50 MG Oral Tablet [Januvia] Januvia 50 mg tablet Januvia 50 mg tablet completed sitagliptin 50 MG Oral Tablet [Januvia] [place] ([facility]) sitagliptin 25 MG Oral Tablet [Januvia] Januvia 25 mg tablet Januvia 25 mg tablet completed sitagliptin 25 MG Oral Tablet [Januvia] [place] ([facility]) Cyclobenzaprine hydrochloride 5 MG Oral Tablet cyclobenzaprine 5 mg tablet TAKE ONE TABLET BY MOUTH THREE TIMES DAILY NEEDED FOR MUSCLE SPASMS cyclobenzaprine 5 mg tablet TAKE ONE TABLET BY MOUTH THREE TIMES DAILY NEEDED FOR MUSCLE SPASMS completed cyclobenzaprine hydrochloride 5 MG Oral Tablet [place] ([facility]) 3 ML Insulin Lispro 100 UNT/ML Pen Injec tor [Humalog] Humalog KwikPen (U-100) Insulin 100 unit/mL subcutaneous Humalog KwikPen (U-100) Insulin 100 unit /mL subcutaneous completed 3 ML insulin lispro 100 UNT/ML Pen Injector [Humalog] [facility]) Cyclobenzaprine hydrochloride 5 MG Oral Tablet cyclobenzaprine 5 mg tablet TAKE ONE TABLET BY MOUTH THREE TIMES DAILY NEEDED FOR MUSCLE SPASMS cyclobenzaprine 5 mg tablet TAKE ONE TABLET BY MOUTH THREE TIMES DAILY NEEDED FOR MUSCLE SPASMS completed cyclobenzaprine hydrochloride 5 MG Oral Tablet [place] ([facility]) 3 ML Insulin Lispro 100 UNT/ML Pen Injec tor [Humalog] Humalog KwikPen (U-100) Insulin 100 unit/mL subcutaneous Humalog KwikPen (U-100) Insulin 100 unit /mL subcutaneous completed 3 ML insulin lispro 100 UNT/ML Pen Injector [Humalog] [place] ([facility]) Cyclobenzaprine hydrochloride 5 MG [...] MG Oral Tablet [place] ([facility]) 3 ML Insulin Lispro 100 UNT/ML Pen Injec tor [Humalog] Humalog KwikPen (U-100) Insulin 100 unit/mL subcutaneous Humalog KwikPen (U-100) Insulin 100 unit /mL subcutaneous completed 3 ML insulin lispro 100 UNT/ML Pen Injector [Humalog] [place] ([facility]) Naproxen 500 MG Oral Tablet naproxen 500 mg tablet TK 1 T PO BID P naproxen 500 mg tablet TK 1 T PO BID P completed naproxen 500 MG Oral Tablet [place] ([facility]) Cyclobenzaprine hydrochloride 5 MG Oral Tablet cyclobenzaprine 5 mg tablet TK 1 T PO TID PRN FOR MUSCLE SPASMS cyclobenzaprine 5 mg tablet TK 1 T PO TI D PRN FOR MUSCLE SPASMS completed cyclobenzaprine hydrochloride 5 MG Oral Tablet [place] ([facility]) gabapentin 300 MG Oral Capsule gabapenti n 300 mg capsule TAKE 1 CAPSULE BY MOUTH THREE TIMES DAILY gabapentin 300 mg capsule TAKE 1 CAPSULE BY MOUTH THREE TIMES DAILY completed gabapentin 300 MG Oral Capsule [place] ([facility]) 1.5 ML Insulin Glargine 300 UNT/ML [...] glargine 300 UNT/ML Pen Injector [Toujeo] [place] ([facility]) 3 ML Insulin Lispro 100 UNT/ML Pen Injec tor [Humalog] Humalog KwikPen (U-100) Insulin 100 unit/mL subcutaneous Humalog KwikPen (U-100) Insulin 100 unit /mL subcutaneous completed 3 ML insulin lispro 100 UNT/ML Pen Injector [Humalog] [place] ([facility]) 1.5 ML Insulin [...] glargine 300 UNT/ML Pen Injector [Toujeo] [place] ([facility]) atorvastatin 20 MG Oral Tablet atorvastatin 20 mg tabl et TK 1 T PO QD atorvastatin 20 mg tablet TK 1 T PO QD completed atorvastatin 20 MG Oral Tablet [place] ([facility]) Suprep Bowel Prep Kit 17.5 gram-3.13 gram-1.6 gram ora l solution MX AND DRK UTD [id number] completed Suprep Bowel Prep Kit 17.5 gram-3.13 gram-1.6 gram oral solution [place] ([facility]) 0.5 ML dulaglutide 1.5 MG/ML Auto-Inject or [Trulicity] Trulicity 0.75 mg/0.5 mL subcutaneous pen injector Trulicity 0.75 mg/0.5 mL subcutaneous pen injector completed 0.5 ML dulaglu tide 1.5 MG/ML Auto-Injector [Trulicity] [place] ([facility]) gabapentin 300 MG Oral Capsule gabapenti n 300 mg capsule TAKE 1 CAPSULE BY MOUTH THREE TIMES DAILY gabapentin 300 mg capsule TAKE 1 CAPSULE BY MOUTH THREE TIMES DAILY completed gabapentin 300 MG Oral Capsule [place] ([facility]) Naproxen 500 MG Oral Tablet naproxen 500 mg tablet TK 1 T PO BID P naproxen 500 mg tablet TK 1 T PO BID P completed naproxen 500 MG Oral Tablet [place] ([facility]) atorvastatin 20 MG Oral Tablet atorvastatin 20 mg tabl et TK 1 T PO QD atorvastatin 20 mg tablet TK 1 T PO QD completed atorvastatin 20 MG Oral Tablet [place] ([facility]) 0.5 ML dulaglutide 1.5 MG/ML Auto-Inject or [Trulicity] Trulicity 0.75 mg/0.5 mL subcutaneous pen injector Trulicity 0.75 mg/0.5 mL subcutaneous pen injector completed 0.5 ML dulaglu tide 1.5 MG/ML Auto-Injector [Trulicity] [place] ([facility]) Suprep Bowel Prep Kit 17.5 gram-3.13 gram-1.6 gram ora l solution MX AND DRK UTD [id number] completed Suprep Bowel Prep Kit 17.5 gram-3.13 gram-1.6 gram oral solution [place] ([facility]) 3 ML Insulin Lispro 100 UNT/ML Pen Injec tor [Humalog] Humalog KwikPen (U-100) Insulin 100 unit/mL subcutaneous Humalog KwikPen (U-100) Insulin 100 unit /mL subcutaneous completed 3 ML insulin lispro 100 UNT/ML Pen Injector [Humalog] [place] ([facility]) 0.5 ML dulaglutide 1.5 MG/ML Auto-Inject or [Trulicity] Trulicity 0.75 mg/0.5 mL subcutaneous pen injector Trulicity 0.75 mg/0.5 mL subcutaneous pen injector completed 0.5 ML dulaglu tide 1.5 MG/ML Auto-Injector [Trulicity] [place] ([facility]) Cyclobenzaprine hydrochloride 5 MG Oral Tablet cyclobenzaprine 5 mg tablet TAKE ONE TABLET BY MOUTH THREE TIMES DAILY NEEDED FOR MUSCLE SPASMS cyclobenzaprine 5 mg tablet TAKE ONE TABLET BY MOUTH THREE TIMES DAILY NEEDED FOR MUSCLE SPASMS completed cyclobenzaprine hydrochloride 5 MG Oral Tablet [place] ([facility]) atorvastatin 20 MG Oral Tablet atorvastatin 20 mg tabl et TK 1 T PO QD atorvastatin 20 mg tablet TK 1 T PO QD completed atorvastatin 20 MG Oral Tablet [place] ([facility]) atorvastatin 20 MG Oral Tablet atorvastatin 20 mg tabl et TK 1 T PO QD atorvastatin 20 mg tablet TK 1 T PO QD completed atorvastatin 20 MG Oral Tablet [place] ([facility]) gabapentin 300 MG Oral Capsule gabapenti n 300 mg capsule TAKE 1 CAPSULE BY MOUTH THREE TIMES DAILY gabapentin 300 mg capsule TAKE 1 CAPSULE BY MOUTH THREE TIMES DAILY completed gabapentin 300 MG Oral Capsule [place] ([facility]) Cyclobenzaprine hydrochloride 5 MG Oral Tablet cyclobenzaprine 5 mg tablet TAKE ONE TABLET BY MOUTH THREE TIMES DAILY NEEDED FOR MUSCLE SPASMS cyclobenzaprine 5 mg tablet TAKE ONE TABLET BY MOUTH THREE TIMES DAILY NEEDED FOR MUSCLE SPASMS completed cyclobenzaprine hydrochloride 5 MG Oral Tablet [place] ([facility]) 3 ML Insulin Lispro 100 UNT/ML Pen Injec tor [Humalog] Humalog KwikPen (U-100) Insulin 100 unit/mL subcutaneous Humalog KwikPen (U-100) Insulin 100 unit /mL subcutaneous completed 3 ML insulin lispro 100 UNT/ML Pen Injector [Humalog] [place] ([facility]) Suprep Bowel Prep Kit 17.5 gram-3.13 gram-1.6 gram ora l solution MX AND DRK UTD [id number] completed Suprep Bowel Prep Kit 17.5 gram-3.13 gram-1.6 gram oral solution [place] ([facility]) gabapentin 300 MG Oral Capsule gabapenti n 300 mg capsule TAKE 1 CAPSULE BY MOUTH THREE TIMES DAILY gabapentin 300 mg capsule TAKE 1 CAPSULE BY MOUTH THREE TIMES DAILY completed gabapentin 300 MG Oral Capsule [place] ([facility]) OneTouch Verio test strips U UTD TO TEST TID [id number] completed OneTouch Verio test strips [place] ([facility]) Insurance Providers Payer name Policy type / Coverage type Policy ID Covered republican ID Covered republican's relationship to cortes Policy [place] Plan Information MEDICARE A [id number] Self [id number] A MEDICARE [id number] [place] [id number] Medicare P [id number] S [id number] A Medicaid S [id number] S [id number] Medicaid S [id number] S [id number] MEDICAID M [id number] Self [id number] MEDICAID [id number] Pushpa [id number] MEDICAID -PHYSICIAN [id number] [place] [id number] SP [id number] Medicare P [id number] S [id number] A MEDICAID [id number] SP [id number] MEDICARE CO [id number] 18 [id number] MEDICAID -RECURRING [id number] MEDICARE -RECURRING [id number] 18 [id number] MEDICAID [place] [facility] [id number] MEDICARE PART A [facility] [id number] 18 [id number] Medicare Commercial [id number] Self [id number] Medicaid Commercial [id number] Self [id number] Medicare Part A [place] Medicare Primary [id number] Self [id number] Medicaid Commercial [id number] Self [id number] Medicare Commercial [id number] Self [id number] Medicaid Commercial [id number] Self [id number] Medicare Part A [place] Medicare Primary [id number] Self [id number] Medicaid Commercial [id number] Self [id number] Medicare Commercial [id number] Self [id number] Medicaid Commercial [id number] Self [id number] Medicare Part A [place] Medicare Primary [id number] Self [id number] Medicaid Commercial [id number] Self [id number] Medicare Dme Medigap Part B [id number] Self [id number] Medicaid Medicaid [id number] Self [id number] Medicare Medicare Primary [id number] Self [id number] Medicare Dme Medigap Part B [id number] Self [id number] Medicaid Medicaid [id number] Self [id number] Medicare Medicare Primary [id number] Self [id number] Medicare Dme Medigap Part B [id number] Self [id number] Medicaid Medicaid [id number] Self [id number] Medicare Medicare Primary [id number] Self [id number] Medicaid [facility] Part B [id number] Self [id number] [place] [id number] Self [id number] Medicaid Commercial [id number] Self [id number] Medicare Commercial [id number] 2.16.840.1.578624.3.227.99.510.154 64.0 Self [id number] Medicaid Commercial [id number] 2.16.840.1.064423.3.227.99.510.35148.0 Self [id number] Medicare Part A [place] Medicare Primary [id number] 2.16.840.1.628978.3.227.99.510.36595.0 Self 9 [id number] Medicaid [place] Medigap Part B [id number] 2.16.840.1.831135.3.227.99 .991.719161.0 Self [id number] [place] [id number] 2.16.840.1.907880.3.227.99.991.706267.0 Self [id number] Medicare Commercial [id number] 2.16.840.1.164887.3.227.99.510.154 64.0 Self [id number] Medicaid Commercial [id number] 2.16.840.1.790724.3.227.99.510.19105. 0 Self [id number] Medicaid Commercial [id number] 2.16.840.1.823248.3.227.99.510.45544.0 Self [id number] Medicare Part A [place] Medicare Primary [id number] 2.16.840.1.452578.3.227.99.510.52241.0 Self 9 [id number] Medicare Commercial [id number] 2.16.840.1.636661.3.227.99.510.154 64.0 Self [id number] Medicaid Commercial [id number] 2.16.840.1.882881.3.227.99.510.08464. 0 Self [id number] Medicaid Commercial [id number] 2.16.840.1.838795.3.227.99.510.80089.0 Self [id number] Medicare Part A [place] Medicare Primary [id number] 2.16.840.1.774374.3.227.99.510.72952.0 Self 9 [id number] Medicare Commercial [id number] 2.16.840.1.544684.3.227.99.510.154 64.0 Self [id number] Medicaid Commercial [id number] 2.16.840.1.245161.3.227.99.510.20900. 0 Self [id number] Medicaid Commercial [id number] 2.16.840.1.208787.3.227.99.510.89447.0 Self [id number] Medicare Part A [place] Medicare Primary [id number] 2.16.840.1.320864.3.227.99.510.78859.0 Self 9 [id number] Medicare Commercial [id number] 2.16.840.1.895309.3.227.99.510.154 64.0 Self [id number] Medicaid Commercial [id number] 2.16.840.1.007496.3.227.99.510.51007. 0 Self [id number] Medicaid Commercial [id number] 2.16.840.1.893128.3.227.99.510.27698.0 Self [id number] Medicare Part A [place] Medicare Primary [id number] 2.16.840.1.287770.3.227.99.510.82713.0 Self 9 [id number] Medicaid [facility] Medicaid [id number] 2.16.840.1.240464.3.22 7.99.510.30986.0 Self [id number] Medicare Part A [place] Medicare Primary [id number] 2.16.840.1.524980.3.227.99.510.84411.0 Self [id number] Medicaid [facility] Medicaid [id number] 2.16.840.1.379944.3.22 7.99.510.92276.0 Self [id number] Medicare Part A [place] Medicare Primary [id number] 2.16.840.1.325870.3.227.99.510.85842.0 Self 9 [id number] Medicaid [facility] Medicaid [id number] 2.16.840.1.554241.3.22 7.99.510.87955.0 Self [id number] Medicare Part A [place] Medicare Primary [id number] 2.16.840.1.015479.3.227.99.510.12371.0 Self 9 [id number] Medicaid [facility] Medicaid [id number] 2.16.840.1.761531.3.22 7.99.510.51844.0 Self [id number] Medicare Part A [place] Medicare Primary [id number] 2.16.840.1.339184.3.227.99.510.02535.0 Self 9 [id number] Medicaid [facility] Medicaid [id number] 2.16.840.1.421837.3.22 7.99.510.67975.0 Self [id number] Medicare Part A [place] Medicare Primary [id number] 2.16.840.1.255687.3.227.99.510.93228.0 Self 9 [id number] Medicaid [facility] Medicaid [id number] 2.16.840.1.546126.3.22 7.99.510.82110.0 Self [id number] Medicare Part A [place] Medicare Primary [id number] 2.16.840.1.070994.3.227.99.510.47773.0 Self 9 [id number] Medicaid [facility] Medicaid [id number] 2.16.840.1.258372.3.22 7.99.510.20272.0 Self [id number] Medicare Part A [place] Medicare Primary [id number] 2.16.840.1.914021.3.227.99.510.88500.0 Self 9 [id number] MEDICARE [id number] A Medicaid [place] Medigap Part B [id number] 2.16.840.1.600478.3.227.99 .6619.45436.0 Self [id number] [place] Primary [id number] 2.16840.1.316544.3.227.99.6619.90829.0 Self [id number] Medicaid [facility] [place] [id number] 2.16.840.1.341949.3.22 7.99.510.24440.0 Self [id number] Medicare Part A [place] Medicare [place] [id number] 2.16840.1.795589.3.227.99.510.56637.0 Self 9 [id number] MEDICARE PART A -O/P [id number] Medicaid [facility] [place] [id number] 2.16.840.1.968263.3.22 7.99.510.94340.0 Self [id number] Medicare Part A [place] Primary [id number] 2.16.840.1.495872.3.227.99.510.68066.0 Self 9 [id number] Medicaid [facility] Medicaid [id number] 2.16.840.1.869190.3.22 7.99.510.33166.0 Self [id number] Medicare Part A [place] Medicare Primary [id number] 2.16.840.1.424870.3.227.99.510.87716.0 Self [id number] Medicaid [facility] Medicaid [id number] 2.16.840.1.664478.3.22 7.99.510.94490.0 Self [id number] Medicare Part A [place] Medicare Primary [id number] 2.16.840.1.652363.3.227.99.510.45697.0 Self 9 [id number] Medicaid [facility] Medicaid [id number] 2.16.840.1.207877.3.22 7.99.510.78567.0 Self [id number] Medicare Part A [place] Medicare Primary [id number] 2.16.840.1.598449.3.227.99.510.13626.0 Self 1 [id number] Medicaid [facility] Medicaid [id number] 2.16.840.1.680830.3.22 7.99.510.32179.0 Self [id number] Medicare Part A [place] Medicare Primary [id number] 2.16.840.1.133797.3.227.99.510.74344.0 Self 1 [id number] Medicaid [facility] Medicaid [id number] 2.16.840.1.011812.3.22 7.99.510.37032.0 Self [id number] Medicare Part A [place] Medicare Primary [id number] 2.16.840.1.117087.3.227.99.510.74075.0 Self 1 [id number] Medicaid [facility] Medicaid [id number] 2.16.840.1.727690.3.22 7.99.510.51371.0 Self [id number] Medicare Part A [place] Medicare Primary [id number] 2.16.840.1.866198.3.227.99.510.56589.0 Self 1 [id number] Medicare Dme Medigap Part B [id number] 2.16.840.1.161803.3.227.99 .936.52945.0 Self [id number] Medicaid Medicaid [id number] 2.16.840.1.135792.3.227.99.936.93863.0 S elf [id number] Medicare Medicare Primary [id number] 2.840.1.589264.3.227. 99.936.21860.0 Self [id number] Medicare Dme Medigap Part B [id number] 2.840.1.769412.3.227.99 .936.92659.0 Self [id number] Medicaid Medicaid [id number] 2.840.1.264201.3.227.99.936.04259.0 S elf [id number] Medicare Medicare Primary [id number] 2.840.1.883674.3.227. 99.936.33564.0 Self [id number] Medicare Dme Medigap Part B [id number] 840.1.761926.3.227.99 .936.40566.0 Self [id number] Medicaid Medicaid [id number] 2.840.1.503455.3.227.99.936.65899.0 S elf [id number] Medicare Medicare Primary [id number] 2.840.1.605945.3.227. 99.936.19822.0 Self [id number] Medicare Dme Medigap Part B [id number] 840.1.652008.3.227.99 .936.11618.0 Self [id number] Medicaid Medicaid [id number] 2.840.1.684003.3.227.99.936.90702.0 S elf [id number] Medicare Medicare Primary [id number] 2.840.1.439311.3.227. 99.936.99224.0 Self [id number] Medicare Dme Medigap Part B [id number] .840.1.901783.3.227.99 .936.35525.0 Self [id number] Medicaid Medicaid [id number] 2.840.1.887533.3.227.99.936.37206.0 S elf [id number] Medicare Medicare Primary [id number] 2.16.840.1.625034.3.227. 99.936.99048.0 Self [id number] Medicare Dme Medigap Part B [id number] 2.16.840.1.568525.3.227.99 .936.77359.0 Self [id number] Medicaid Medicaid [id number] 2.16.840.1.084301.3.227.99.936.93343.0 S elf [id number] Medicare Medicare Primary [id number] 2.16.840.1.130722.3.227. 99.936.83897.0 Self [id number] Medicaid Medicaid 2.16.840.1.378958.3.227.99.936.32254.0 S elf Medicare Medicare Primary 2.16.840.1.663102.3.227.99.936.23 302.0 Self HMO BLUE [id number] SP [id number] BLUE CROSS SAAVEDRA PLAN [id number] SP [id number] MEDICAID S [id number] S [id number] MEDICARE P [id number] S [id number] A HMO BLUE [id number] SP [id number] [facility] PLUS [id number] SP [id number] HEALTH WELFARE BENEFIT SYS [id number] SP [id number] [facility] MEDICAID [id number] SP [id number] MEDICARE [id number] MEDICARE PART A -O/P [id number] 18 [id number] MEDICAID -O/P [id number] 18 [id number] MEDICAID [place] [id number] 18 [id number] MEDICARE PART A [facility] [id number] 18 [id number] [place]ID [place] [id number] 18 [id number] Problems, Conditions, and Diagnoses Code Display Name Description Problem Type Effective Dates Data Source(s) M542 Cervicalgia Cervicalgia Diagnosis 03/11/2021 02:01:00 PM EDT [facility] F43.9 Reaction to severe stress, unspecified 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 06/28/2021 12:00:00 AM EDT [facility] ([facility]) 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 Unspecified Schizophrenia Spectrum and Other Psychotic Disorder Condition 06/28/2021 12:00:00 AM EDT [facility] ([facility]) [id number] Cervical radiculopathy Cervical radiculopathy Problem 03/25/2021 12:00:00 AM EDT [facility] ([facility], ) E11.9 Type 2 diabetes mellitus Type 2 diabetes mellitus Prob allan 03/20/2021 12:00:00 AM EDT [facility] ([facility] M21.619 Bunion Bunion Problem 03/20/2021 12:00:00 AM ED T [facility] ([facility] [id number] SNOMED CT Concept SNOMED CT Concept Problem 01/09 12:00:00 AM EST - 02/15/2021 12:00:00 AM EDT [facility] ([facility]) [id number] Finding of urine substance level Finding of Urin e Substance Level Problem 01/09/2018 12:00:00 AM EST - 09/30/2020 12:00:00 AM JENNIFER MENDEZ ([facility]) [id number] SNOMED CT Concept SNOMED CT Concept Problem 01/09 12:00:00 AM EST - 02/15/2021 12:00:00 AM EDT [facility]ESSA ([facility]) [id number] Finding of urine substance level Finding of Urin e Substance Level Problem 01/09/2018 12:00:00 AM EST - 09/30/2020 12:00:00 AM JENNIFER MENDEZ ([facility]) [id number] SNOMED CT Concept SNOMED CT Concept Problem 01/09 12:00:00 AM EST - 02/15/2021 12:00:00 AM EDT [facility]ES[facility] ([facility]) [id number] Finding of urine substance level Finding of Urin e Substance Level Problem 01/09/2018 12:00:00 AM EST - 09/30/2020 12:00:00 AM JENNIFER MENDEZ ([facility]) [id number] SNOMED CT Concept SNOMED CT Concept Problem 01/09 12:00:00 AM EST - 02/15/2021 12:00:00 AM EDT [facility] ([facility]) [id number] Finding of urine substance level Finding of Urin e Substance Level Problem 01/09/2018 12:00:00 AM EST - 09/30/2020 12:00:00 AM JENNIFER Villegas [facility] ([facility]) [id number] SNOMED CT Concept SNOMED CT Concept Problem 01/09 12:00:00 AM EST - 02/15/2021 12:00:00 AM EDT [facility] ([facility]) [id number] Finding of urine substance level Finding of Urin e Substance Level Problem 01/09/2018 12:00:00 AM EST - 09/30/2020 12:00:00 AM JENNIFER Bakari [facility] ([facility]) [id number] SNOMED CT Concept SNOMED CT Concept Problem 01/09 12:00:00 AM EST - 02/15/2021 12:00:00 AM EDT [facility]ES[facility] ([facility]) [id number] Finding of urine substance level Finding of Urin e Substance Level Problem 01/09/2018 12:00:00 AM EST - 09/30/2020 12:00:00 AM JENNIFER Bakari [facility] ([facility]) [id number] SNOMED CT Concept SNOMED CT Concept Problem 01/09 12:00:00 AM EST - 02/15/2021 12:00:00 AM EDT [facility]ESSA ([facility]) 439940430 Finding of urine substance level Finding of Urin e Substance Level Problem 01/09/2018 12:00:00 AM EST - 09/30/2020 12:00:00 AM JENNIFER MENDEZ ([facility]) [id number] SNOMED CT Concept SNOMED CT Concept Problem 01/09 12:00:00 AM EST - 02/15/2021 12:00:00 AM EDT [facility]ES[facility] ([facility]) [id number] Finding of urine substance level Finding of Urin e Substance Level Problem 01/09/2018 12:00:00 AM EST - 09/30/2020 12:00:00 AM JENNIFER MENDEZ ([facility]) [id number] Finding of urine substance level Finding of Urin e Substance Level Problem 01/09/2018 12:00:00 AM EST - 09/30/2020 12:00:00 AM JENNIFER MENDEZ ([facility]) [id number] SNOMED CT Concept SNOMED CT Concept Problem 01/09 12:00:00 AM EST - 02/15/2021 12:00:00 AM EDT [facility] ([facility]) [id number] Finding of urine substance level Finding of Urin e Substance Level Problem 01/09/2018 12:00:00 AM EST - 09/30/2020 12:00:00 AM JENNIFER MENDEZ ([facility]) [id number] SNOMED CT Concept SNOMED CT Concept Problem 01/09 12:00:00 AM EST - 02/15/2021 12:00:00 AM EDT [facility] ([facility]) [id number] Finding of urine substance level Finding of Urin e Substance Level Problem 01/09/2018 12:00:00 AM EST - 09/30/2020 12:00:00 AM JENNIFER MENDEZ ([facility]) [id number] Renal function tests abnormal Renal Function Tests Abn ormal Problem 03/03/2016 12:00:00 AM EDT - 03/10/2021 12:00:00 AM EDT [facility] ([facility]) [id number] Renal function tests abnormal Renal Function Tests Abn ormal Problem 03/03/2016 12:00:00 AM EDT - 03/10/2021 12:00:00 AM EDT [facility] ([facility]) 479404551 Renal function tests abnormal Renal Function Tests Abn ormal Problem 03/03/2016 12:00:00 AM EDT - 03/10/2021 12:00:00 AM EDT [facility] ([facility]) [id number] Renal function tests abnormal Renal Function Tests Abn ormal Problem 03/03/2016 12:00:00 AM EDT - 03/10/2021 12:00:00 AM EDT [facility] ([facility]) 647160127 Renal function tests abnormal Renal Function Tests Abn ormal Problem 03/03/2016 12:00:00 AM EDT - 03/10/2021 12:00:00 AM EDT [facility] ([facility]) 323984987 Renal function tests abnormal Renal Function Tests Abn ormal Problem 03/03/2016 12:00:00 AM EDT - 03/10/2021 12:00:00 AM EDT [facility] ([facility]) 971234377 Renal function tests abnormal Renal Function Tests Abn ormal Problem 03/03/2016 12:00:00 AM EDT - 03/10/2021 12:00:00 AM EDT [facility] ([facility]) 572144527 SNOMED CT Concept SNOMED CT Concept Problem 02/02 12:00:00 AM EDT - 02/15/2021 12:00:00 AM EDT [facility] ([facility]) [id number] Clinical finding Clinical Finding Problem 016 12:00:00 AM EDT - 02/15/2021 12:00:00 AM EDT [facility] ([facility]) [id number] SNOMED CT Concept SNOMED CT Concept Problem 02/02 12:00:00 AM EDT - 09/30/2020 12:00:00 AM EST [facility] ([facility]) [id number] Procedure by method Procedure by Method Problem 0 02/03/2016 12:00:00 AM EDT - 09/30/2020 12:00:00 AM EST [facility] ([facility]) [id number] Difficulty passing urine Difficulty Passing Urine Prob allan 02/03/2016 12:00:00 AM EDT - 09/30/2020 12:00:00 AM EST [facility] ([facility]) 256222611 SNOMED CT Concept SNOMED CT Concept Problem 02/02 12:00:00 AM EDT - 02/15/2021 12:00:00 AM EDT [facility] ([facility]) [id number] Clinical finding Clinical Finding Problem 016 12:00:00 AM EDT - 02/15/2021 12:00:00 AM EDT [facility] ([facility]) 143428703 SNOMED CT Concept SNOMED CT Concept Problem 02/02 12:00:00 AM EDT - 09/30/2020 12:00:00 AM EST [facility] ([facility]) [id number] Procedure by method Procedure by Method Problem 0 02/03/2016 12:00:00 AM EDT - 09/30/2020 12:00:00 AM EST [facility] ([facility]) [id number] Difficulty passing urine Difficulty Passing Urine Prob allan 02/03/2016 12:00:00 AM EDT - 09/30/2020 12:00:00 AM EST [facility] ([facility]) [id number] SNOMED CT Concept SNOMED CT Concept Problem 02/02 12:00:00 AM EDT - 02/15/2021 12:00:00 AM EDT [facility] ([facility]) [id number] Clinical finding Clinical Finding Problem 016 12:00:00 AM EDT - 02/15/2021 12:00:00 AM EDT [facility] ([facility]) 942391090 SNOMED CT Concept SNOMED CT Concept Problem 02/02 12:00:00 AM EDT - 09/30/2020 12:00:00 AM EST [facility] ([facility]) [id number] Procedure by method Procedure by Method Problem 0 02/03/2016 12:00:00 AM EDT - 09/30/2020 12:00:00 AM EST [facility] ([facility]) [id number] Difficulty passing urine Difficulty Passing Urine Prob allan 02/03/2016 12:00:00 AM EDT - 09/30/2020 12:00:00 AM EST [facility] ([facility]) 469090129 SNOMED CT Concept SNOMED CT Concept Problem 02/02 12:00:00 AM EDT - 02/15/2021 12:00:00 AM EDT [facility] ([facility]) [id number] Clinical finding Clinical Finding Problem 016 12:00:00 AM EDT - 02/15/2021 12:00:00 AM EDT [facility] ([facility]) [id number] SNOMED CT Concept SNOMED CT Concept Problem 02/02 12:00:00 AM EDT - 09/30/2020 12:00:00 AM EST [facility] ([facility]) [id number] Procedure by method Procedure by Method Problem 0 02/03/2016 12:00:00 AM EDT - 09/30/2020 12:00:00 AM EST [facility] ([facility]) 513209267 Difficulty passing urine Difficulty Passing Urine Prob allan 02/03/2016 12:00:00 AM EDT - 09/30/2020 12:00:00 AM EST [facility] ([facility]) 778063347 SNOMED CT Concept SNOMED CT Concept Problem 02/02 12:00:00 AM EDT - 02/15/2021 12:00:00 AM EDT [facility] ([facility]) [id number] Clinical finding Clinical Finding Problem 016 12:00:00 AM EDT - 02/15/2021 12:00:00 AM EDT [facility] ([facility]) [id number] SNOMED CT Concept SNOMED CT Concept Problem 02/02 12:00:00 AM EDT - 09/30/2020 12:00:00 AM EST [facility]NA[facility] ([facility]) [id number] Procedure by method Procedure by Method Problem 0 02/03/2016 12:00:00 AM EDT - 09/30/2020 12:00:00 AM EST [facility] ([facility]) 542226805 Difficulty passing urine Difficulty Passing Urine Prob allan 02/03/2016 12:00:00 AM EDT - 09/30/2020 12:00:00 AM EST [facility] ([facility]) [id number] SNOMED CT Concept SNOMED CT Concept Problem 02/02 12:00:00 AM EDT - 02/15/2021 12:00:00 AM EDT [facility] ([facility]) [id number] Clinical finding Clinical Finding Problem 016 12:00:00 AM EDT - 02/15/2021 12:00:00 AM EDT [facility] ([facility]) [id number] SNOMED CT Concept SNOMED CT Concept Problem 02/02 12:00:00 AM EDT - 09/30/2020 12:00:00 AM EST [facility] ([facility]) [id number] Procedure by method Procedure by Method Problem 0 02/03/2016 12:00:00 AM EDT - 09/30/2020 12:00:00 AM EST [facility] ([facility]) [id number] Difficulty passing urine Difficulty Passing Urine Prob allan 02/03/2016 12:00:00 AM EDT - 09/30/2020 12:00:00 AM EST [facility] ([facility]) [id number] Difficulty passing urine Difficulty Passing Urine Prob allan 02/03/2016 12:00:00 AM EDT - 09/30/2020 12:00:00 AM EST [facility] ([facility]) [id number] SNOMED CT Concept SNOMED CT Concept Problem 02/02 12:00:00 AM EDT - 02/15/2021 12:00:00 AM EDT [facility] ([facility]) [id number] Clinical finding Clinical Finding Problem 016 12:00:00 AM EDT - 02/15/2021 12:00:00 AM EDT [facility] ([facility]) 481556812 SNOMED CT Concept SNOMED CT Concept Problem 02/02 12:00:00 AM EDT - 09/30/2020 12:00:00 AM EST [facility] ([facility]) [id number] Procedure by method Procedure by Method Problem 0 02/03/2016 12:00:00 AM EDT - 09/30/2020 12:00:00 AM EST [facility] ([facility]) [id number] Difficulty passing urine Difficulty Passing Urine Prob allan 02/03/2016 12:00:00 AM EDT - 09/30/2020 12:00:00 AM EST [facility] ([facility]) 865367243 SNOMED CT Concept SNOMED CT Concept Problem 02/02 12:00:00 AM EDT - 09/30/2020 12:00:00 AM EST [facility] ([facility]) [id number] Procedure by method Procedure by Method Problem 0 02/03/2016 12:00:00 AM EDT - 09/30/2020 12:00:00 AM EST [facility] ([facility]) 449438052 Difficulty passing urine Difficulty Passing Urine Prob allan 02/03/2016 12:00:00 AM EDT - 09/30/2020 12:00:00 AM EST [facility] ([facility]) 597453738 SNOMED CT Concept SNOMED CT Concept Problem 02/02 12:00:00 AM EDT - 02/15/2021 12:00:00 AM EDT [facility] ([facility]) 568298065 Clinical finding Clinical Finding Problem 016 12:00:00 AM EDT - 02/15/2021 12:00:00 AM EDT [facility] ([facility]) 228842049 SNOMED CT Concept SNOMED CT Concept Problem 02/02 12:00:00 AM EDT - 09/30/2020 12:00:00 AM EST [facility] ([facility]) [id number] Procedure by method Procedure by Method Problem 0 02/03/2016 12:00:00 AM EDT - 09/30/2020 12:00:00 AM EST [facility] ([facility]) 249898304 Difficulty passing urine Difficulty Passing Urine Prob allan 02/03/2016 12:00:00 AM EDT - 09/30/2020 12:00:00 AM EST [facility] ([facility]) 729126875 SNOMED CT Concept SNOMED CT Concept Problem 02/02 12:00:00 AM EDT - 02/15/2021 12:00:00 AM EDT [facility] ([facility]) [id number] Clinical finding Clinical Finding Problem 016 12:00:00 AM EDT - 02/15/2021 12:00:00 AM EDT [facility] ([facility]) 127291158 SNOMED CT Concept SNOMED CT Concept Problem 02/02 12:00:00 AM EDT - 09/30/2020 12:00:00 AM EST [facility] ([facility]) [id number] Procedure by method Procedure by Method Problem 0 02/03/2016 12:00:00 AM EDT - 09/30/2020 12:00:00 AM EST [facility] ([facility]) 739988829 Difficulty passing urine Difficulty Passing Urine Prob allan 02/03/2016 12:00:00 AM EDT - 09/30/2020 12:00:00 AM KAREEM MENDEZ ([facility]) 573073725 SNOMED CT Concept SNOMED CT Concept Problem 02/02 12:00:00 AM EDT - 02/15/2021 12:00:00 AM EDT [facility] ([facility]) 772656970 Clinical finding Clinical Finding Problem 016 12:00:00 AM EDT - 02/15/2021 12:00:00 AM EDT [facility] ([facility]) 701611429 SNOMED CT Concept SNOMED CT Concept Problem 02/02 12:00:00 AM EDT - 09/30/2020 12:00:00 AM KAREEM MENDEZ ([facility]) [id number] Procedure by method Procedure by Method Problem 0 02/03/2016 12:00:00 AM EDT - 09/30/2020 12:00:00 AM KAREEM MENDEZ ([facility]) Surgeries/Procedures Procedure Description Date Indications Data Source(s) Extended Individual Psychotherapy - 45 min 06/28/2021 12:00:00 AM EDT - 06/28/2021 12:00:00 AM EDT [facility] ([facility]) Extended Individual Psychotherapy - 45 min 12:00:00 AM EDT [facility] ([facility]) Telemed Diagnostic Eval 06/07/2021 12:00 :00 AM EDT - 06/07/2021 12:00:00 AM EDT [facility] ([facility]) Telemed Diagnostic Eval 06/07/2021 12:00:00 AM EDT [facility] ([facility]) OFFICE OUTPATIENT VISIT 25 MINUTES 05/10/2021 [...] [facility], ) OFFICE OUTPATIENT VISIT 15 MINUTES 04/06/2021 12:00:00 AM EDT [facility] ([facility]) Needle electromyography, each extremity, with related paraspinal [...] ([facility], ) OFFICE OUTPATIENT NEW 30 MINUTES 03/11/2021 12:00:00 A M EDT [facility] ([facility]) Results ID Date Data Source [id number] 09/07/2021 08:50:00 AM EDT [facility] ([facility]) Name Value Range Interpretation Code Description Data Sandra rce(s) Supporting Document(s) Color of Urine Laboratory test result [facility] ([facility]) Appearance of Urine Laboratory test result [facility] ([facility]) Spec Rogers 1.010 1.001-1.030 [facility] ([facility]) Leukocytes Laboratory test result [facility] ([facility]) pH of Urine by Test strip 5 5-9 MEDE NT ([facility]) Nitrate [Presence] in Urine Laboratory test result [facility] ([facility]) Protein [Presence] in Urine by Test strip Laboratory test result [facility] ([facility]) Inhouse Glucose 1000 Above high normal ME DENT ([facility]) Ketones [Presence] in Urine by Test strip Laboratory test result [facility] ([facility]) Bilirubin.total [Presence] in Urine by Test strip Laboratory test res ult [facility] ([facility]) [facility]ilinogen [facility] Blood type and Indirect antibody screen panel - Blood 250 Above high normal [facility] ([facility]) ID Date Data Source [id number] 07/06/2021 12:00:00 AM EDT [place] ([facility]) Name Value Range Interpretation Code Description Data Sandra rce(s) Supporting Document(s) Bacteria identified in Urine by Culture Reflexive Urine Culture [place] ([facility]) ID Date Data Source [id number] 07/06/2021 12:00:00 AM EDT [facility]) Name Value Range Interpretation Code Description Data Sandra rce(s) Supporting Document(s) Specific gravity of Urine by Test strip 1.001-1.035 A eddie high normal Specific Rogers [place] ([facility]) Appearance of Urine clear clear Appearance ATHEN A ([facility]) Color of Urine yellow yellow Color V[facility] ([facility]) Glucose [Presence] in Urine by Test strip 3+ negati ve Abnormal (applies to non- numeric results) Glucose [facility] ([facility]) Bilirubin.total [Presence] in Urine by Test strip negative negative Bilirubin [facility] ([facility]) Ketones [Presence] in Urine by Test strip negative negative Ketones AVNESSA ([facility]) pH of Urine by Test strip 5.0-8.0 Ph [place] ([facility]) Protein [Presence] in Urine by Test strip negative negative Protein [place] ([facility]) Hemoglobin [Presence] in Urine by Test strip negative negative Occult Blood [place] ([facility]) Nitrite [Presence] in Urine by Test strip negative negative Nitrite [place] ([facility]) Leukocyte esterase [Presence] in Urine by Test strip negative n egative Leukocyte Esterase [facility] ([facility]) Bacteria [#/area] in Urine sediment by Microscopy high power field none seen none seen Bacteria [facility] ([facility]) Epithelial cells.squamous [#/area] in Ur ine sediment by Microscopy high power field none seen < or = 5 Squamous Epithelial Cells AT [facility]) Erythrocytes [#/area] in Urine sediment by Microscopy high power field none seen < or = 2 Rbc [place] ([facility]) Leukocytes [#/area] in Urine sediment by Microscopy high pow er field none seen < or = 5 Wbc [facility] ([facility]) Hyaline casts [#/area] in Urine sediment by Microscopy low power field none seen none seen Hyaline Cast [place] ([facility]) ID Date Data Source [id number] 07/06/2021 12:00:00 AM EDT [facility]) Name Value Range Interpretation Code Description Data Sandra rce(s) Supporting Document(s) Urea nitrogen [Mass/volume] in Serum or Plasma 15 mg/dL 7-25 Urea Nitrogen (BUN) [place] ([facility]) Glucose [Mass/volume] in Serum or Plasma 308 mg/dL 65-99 Above high normal Glucose [place] ([facility]) Creatinine [Mass/volume] in Serum or Plasma 0.93 mg/dL 0.70-1.33 Creatinine [facility]) Glomerular filtration rate/1.73 sq M.pre dicted among non-blacks [Volume Rate/Area] in Serum, Plasma or Blood by Creatinine-based formula (CKD-EPI) 95 mL/min/1.73m2 > or = 60 eGFR Non-afr. [place]ian [place] ([facility]) Glomerular filtration rate/1.73 sq M.pre dicted among blacks [Volume Rate/Area] in Serum, Plasma or Blood by Creatinine-based formula (CKD-EPI) 110 mL/min/1.73m2 > or = 60 eGFR [place] ([facility]) Sodium [Moles/volume] in Serum or Plasma 135 mmol/L 135-146 Sodium [facility]) Chloride [Moles/volume] in Serum or Plasma 102 mmol/L 98-110 Chloride [place] ([facility]) Urea nitrogen/Creatinine [Mass Ratio] in Serum or Plasma not applic able 6-22 BUN/creatinine Ratio [place] ([facility]) Potassium [Moles/volume] in Serum or Plasma 4.0 mmol/L 3.5-5.3 Potassium [place] ([facility]) Carbon dioxide, total [Moles/volume] in Serum or Plasma 27 mmol/L 20-32 Carbon Dioxide [place] ([facility]) Protein [Mass/volume] in Serum or Plasma 6.8 g/dL 6.1-8.1 Protein, Total [place] ([facility]) Calcium [Mass/volume] in Serum or Plasma 8.9 mg/dL 8.6-10.3 Calcium [place] ([facility]) Globulin [Mass/volume] in Serum by calculation 2.7 g/dL_(calc) 1.9- 3.7 Globulin [place] ([facility]) Albumin [Mass/volume] in Serum or Plasma 4.1 g/dL 3.6-5.1 Albumin [place] ([facility]) Bilirubin.total [Mass/volume] in Serum or Plasma 0.9 mg/dL 0.2-1 .2 Bilirubin, Total [place] ([facility]) Albumin/Globulin [Mass Ratio] in Serum or Plasma 1.5 (calc) 1.0-2 .5 Albumin/globulin Ratio [place] ([facility]) Alanine aminotransferase [Enzymatic activity/volume] in Seru m or Plasma 15 U/L 9-46 Alt [facility] ([facility]) Aspartate aminotransferase [Enzymatic activity/volume] in Se rum or Plasma 9 U/L 10-35 Below low normal Ast [facility] ([facility]) Alkaline phosphatase [Enzymatic activity/volume] in Serum or Plasma 73 U/L 35-144 Alkaline Phosphatase [place] ([facility]) ID Date Data Source [id number] 07/06/2021 12:00:00 AM EDT [place] ([facility]) Name Value Range Interpretation Code Description Data Sandra rce(s) Supporting Document(s) Cholesterol in HDL [Mass/volume] in Serum or Plasma 38 mg/dL > or = 40 Below low normal HDL Cholesterol [facility] ([facility]) Cholesterol [Mass/volume] in Serum or Plasma 114 mg/dL <200 Cholesterol, Total [place] ([facility]) Cholesterol.total/Cholesterol in HDL [Mass Ratio] in Serum o r Plasma 3.0 (calc) <5.0 Chol/hdlc Ratio [place] ([facility]) Cholesterol in LDL [Mass/volume] in Serum or Plasma by calculation 49 mg/dL_(calc) LDL-cholesterol [place] ([facility]) Triglyceride [Mass/volume] in Serum or Plasma 208 mg/dL <150 Above high normal Triglycerides [place] ([facility]) Cholesterol non HDL [Mass/volume] in Serum or Plasma 76 mg/dL_(calc ) <130 Non HDL Cholesterol [place] ([facility]) ID Date Data Source [id number] 07/06/2021 12:00:00 AM EDT [place] ([facility]) Name Value Range Interpretation Code Description Data Sandra rce(s) Supporting Document(s) Bacteria identified in Urine by Culture Reflexive Urine Culture [place] ([facility]) ID Date Data Source [id number] 07/06/2021 12:00:00 AM EDT [facility]) Name Value Range Interpretation Code Description Data Sandra rce(s) Supporting Document(s) Color of Urine yellow yellow Color [place] ([facility]) Appearance of Urine clear clear Appearance ATHEN A ([facility]) Glucose [Presence] in Urine by Test strip 3+ negati ve Abnormal (applies to non- numeric results) Glucose [place] ([facility]) Specific gravity of Urine by Test strip 1.001-1.035 A eddie high normal Specific [place] ([facility]) pH of Urine by Test strip 5.0-8.0 Ph [place] ([facility]) Bilirubin.total [Presence] in Urine by Test strip negative negative Bilirubin [place] ([facility]) Protein [Presence] in Urine by Test strip negative negative Protein [place] ([facility]) Hemoglobin [Presence] in Urine by Test strip negative negative Occult Blood [place] ([facility]) Ketones [Presence] in Urine by Test strip negative negative Ketones [place] ([facility]) Nitrite [Presence] in Urine by Test strip negative negative Nitrite [place] ([facility]) Leukocytes [#/area] in Urine sediment by Microscopy high pow er field none seen < or = 5 Wbc [place] ([facility]) Leukocyte esterase [Presence] in Urine by Test strip negative n egative Leukocyte Esterase [place] ([facility]) Epithelial cells.squamous [#/area] in Ur ine sediment by Microscopy high power field none seen < or = 5 Squamous Epithelial Cells AT [facility]) Hyaline casts [#/area] in Urine sediment by Microscopy low power field none seen none seen Hyaline Cast [place] ([facility]) Bacteria [#/area] in Urine sediment by Microscopy high power field none seen none seen Bacteria [place] ([facility]) Erythrocytes [#/area] in Urine sediment by Microscopy high power field none seen < or = 2 Rbc [place] ([facility]) ID Date Data Source [id number] 07/06/2021 12:00:00 AM EDT [place] ([facility]) Name Value Range Interpretation Code Description Data Sandra rce(s) Supporting Document(s) Glucose [Mass/volume] in Serum or Plasma 308 mg/dL 65-99 Above high normal Glucose [place] ([facility]) Urea nitrogen [Mass/volume] in Serum or Plasma 15 mg/dL 7-25 Urea Nitrogen (BUN) [place] ([facility]) Urea nitrogen/Creatinine [Mass Ratio] in Serum or Plasma not applic able 6-22 BUN/creatinine Ratio [place] ([facility]) Creatinine [Mass/volume] in Serum or Plasma 0.93 mg/dL 0.70-1.33 Creatinine [place] ([facility]) Glomerular filtration rate/1.73 sq M.pre dicted among non-blacks [Volume Rate/Area] in Serum, Plasma or Blood by Creatinine-based formula (CKD-EPI) 95 mL/min/1.73m2 > or = 60 eGFR Non-afr. [place]ian [place] ([facility]) Glomerular filtration rate/1.73 sq M.pre dicted among blacks [Volume Rate/Area] in Serum, Plasma or Blood by Creatinine-based formula (CKD-EPI) 110 mL/min/1.73m2 > or = 60 eGFR [facility] (No [facility]) Chloride [Moles/volume] in Serum or Plasma 102 mmol/L 98-110 Chloride [place] ([facility]) Potassium [Moles/volume] in Serum or Plasma 4.0 mmol/L 3.5-5.3 Potassium [place] ([facility]) Sodium [Moles/volume] in Serum or Plasma 135 mmol/L 135-146 Sodium [place] ([facility]) Carbon dioxide, total [Moles/volume] in Serum or Plasma 27 mmol/L 20-32 Carbon Dioxide [place] ([facility]) Calcium [Mass/volume] in Serum or Plasma 8.9 mg/dL 8.6-10.3 Calcium [place] ([facility]) Albumin [Mass/volume] in Serum or Plasma 4.1 g/dL 3.6-5.1 Albumin [place] ([facility]) Globulin [Mass/volume] in Serum by calculation 2.7 g/dL_(calc) 1.9- 3.7 Globulin [place] ([facility]) Protein [Mass/volume] in Serum or Plasma 6.8 g/dL 6.1-8.1 Protein, Total [facility]) Bilirubin.total [Mass/volume] in Serum or Plasma 0.9 mg/dL 0.2-1 .2 Bilirubin, Total [place] ([facility]) Albumin/Globulin [Mass Ratio] in Serum or Plasma 1.5 (calc) 1.0-2 .5 Albumin/globulin Ratio [place] ([facility]) Alkaline phosphatase [Enzymatic activity/volume] in Serum or Plasma 73 U/L 35-144 Alkaline Phosphatase [place] ([facility]) Aspartate aminotransferase [Enzymatic activity/volume] in Se rum or Plasma 9 U/L 10-35 Below low normal Ast [facility] ([facility]) Alanine aminotransferase [Enzymatic activity/volume] in Seru m or Plasma 15 U/L 9-46 Alt [facility] ([facility]) ID Date Data Source [id number] 07/06/2021 12:00:00 AM EDT [place] ([facility]) Name Value Range Interpretation Code Description Data Sandra rce(s) Supporting Document(s) Cholesterol in HDL [Mass/volume] in Serum or Plasma 38 mg/dL > or = 40 Below low normal HDL Cholesterol [place] ([facility]) Triglyceride [Mass/volume] in Serum or Plasma 208 mg/dL <150 Above high normal Triglycerides [place] ([facility]) Cholesterol [Mass/volume] in Serum or Plasma 114 mg/dL <200 Cholesterol, Total [place] ([facility]) Cholesterol in LDL [Mass/volume] in Serum or Plasma by calculation 49 mg/dL_(calc) LDL-cholesterol [place] ([facility]) Cholesterol.total/Cholesterol in HDL [Mass Ratio] in Serum o r Plasma 3.0 (calc) <5.0 Chol/hdlc Ratio [facility] ([facility]) Cholesterol non HDL [Mass/volume] in Serum or Plasma 76 mg/dL_(calc ) <130 Non HDL Cholesterol [place] ([facility]) ID Date Data Source [id number] 06/28/2021 11:45:00 AM EDT [place] ([facility]) Name Value Range Interpretation Code Description Data Sandra rce(s) Supporting Document(s) Hemoglobin A1c/Hemoglobin.total in Blood 10.4 % Abnormal (applies to non- numeric results) Hba1C [place] ([facility]) ID Date Data Source [id number] 06/28/2021 11:45:00 AM EDT [place] ([facility]) Name Value Range Interpretation Code Description Data Sandra rce(s) Supporting Document(s) Hemoglobin A1c/Hemoglobin.total in Blood 10.4 % Abnormal (applies to non- numeric results) Hba1C [place] ([facility]) ID Date Data Source [id number] 06/28/2021 11:45:00 AM EDT [place] ([facility]) Name Value Range Interpretation Code Description Data Sandra rce(s) Supporting Document(s) Hemoglobin A1c/Hemoglobin.total in Blood 10.4 % Abnormal (applies to non- numeric results) Hba1C [place] ([facility]) ID Date Data Source [id number] 06/28/2021 11:45:00 AM EDT [place] ([facility]) Name Value Range Interpretation Code Description Data Sandra rce(s) Supporting Document(s) Hemoglobin A1c/Hemoglobin.total in Blood 10.4 % Abnormal (applies to non- numeric results) Hba1C [place] ([facility]) ID Date Data Source [id number] 04/25/2021 08:05:00 AM EDT [facility]) Name Value Range Interpretation Code Description Data Sandar rce(s) Supporting Document(s) blood urea nitrogen 20 mg/dL 7-18 Above high normal Blood Ure a Nitrogen [place] ([facility]) glucose, fasting 382 mg/dL 70-100 Above high normal Glucose, Fas ting [place] ([facility]) creatinine for GFR 1.19 mg/dL 0.70-1.30 Creatinine for GF R [place] ([facility]) sodium level 135 mEq/L 136-145 Below low normal Sodium Level ATHE NA ([facility]) glomerular filtration rate > 60.0 >56 Glomerula r Filtration Rate [place] ([facility]) chloride level 100 mEq/L 98-107 Chloride Level [facility] ([facility]) potassium serum 4.5 mEq/L 3.5-5.1 Potassium Serum ATHE NA ([facility]) anion gap 8 mEq/L 8-16 Anion Gap [facility] ([facility]) carbon dioxide level 27 mEq/L 21-32 Carbon Dioxide Level [place] ([facility]) AST/SGOT 9 U/L 7-37 AST/SGOT [place] ([facility]) calcium level 9.3 mg/dL 8.5-10.1 Calcium Level [place] ( [facility]) ALT/SGPT 26 U/L 12-78 ALT/SGPT [place] ([facility]) alkaline phosphatase 71 U/L 45-117 Alkaline Phosph atase [place] ([facility]) bilirubin,total 1.0 mg/dL 0.2-1.0 Bilirubin,total ATHE ([facility]) albumin 3.9 gm/dL 3.2-5.2 Albumin [place] ([facility]) total protein 7.6 gm/dL 6.4-8.2 Total Protein [place] ( [facility]) albumin/globulin ratio Albumin/globu jose l Ratio [facility] ([facility]) ID Date Data Source [id number] 04/25/2021 08:05:00 AM EDT [place] ([facility]) Name Value Range Interpretation Code Description Data Sandra rce(s) Supporting Document(s) blood urea nitrogen 20 mg/dL 7-18 Above high normal Blood Ure a Nitrogen [place] ([facility]) glucose, fasting 382 mg/dL 70-100 Above high normal Glucose, Fas ting [place] ([facility]) creatinine for GFR 1.19 mg/dL 0.70-1.30 Creatinine for GF R [place] ([facility]) glomerular filtration rate > 60.0 >56 Glomerula r Filtration Rate [place] ([facility]) sodium level 135 mEq/L 136-145 Below low normal Sodium Level [place] NA ([facility]) chloride level 100 mEq/L 98-107 Chloride Level [place] ([facility]) potassium serum 4.5 mEq/L 3.5-5.1 Potassium Serum [place] ([facility]) carbon dioxide level 27 mEq/L 21-32 Carbon Dioxide Level [place] ([facility]) anion gap 8 mEq/L 8-16 Anion Gap [place] ([facility]) AST/SGOT 9 U/L 7-37 AST/SGOT [place] ([facility]) calcium level 9.3 mg/dL 8.5-10.1 Calcium Level [place] ( [facility]) ALT/SGPT 26 U/L 12-78 ALT/SGPT [place] ([facility]) alkaline phosphatase 71 U/L 45-117 Alkaline Phosph atase [place] ([facility]) bilirubin,total 1.0 mg/dL 0.2-1.0 Bilirubin,total [place] ([facility]) albumin 3.9 gm/dL 3.2-5.2 Albumin [place] ([facility]) total protein 7.6 gm/dL 6.4-8.2 Total Protein [place] ( [facility]) albumin/globulin ratio Albumin/globu jose l Ratio [facility] ([facility]) ID Date Data Source [id number] 04/25/2021 08:05:00 AM EDT [place] ([facility]) Name Value Range Interpretation Code Description Data Sandra rce(s) Supporting Document(s) glucose, fasting 382 mg/dL 70-100 Above high normal Glucose, Fas ting [place] ([facility]) blood urea nitrogen 20 mg/dL 7-18 Above high normal Blood Ure a Nitrogen [place] ([facility]) glomerular filtration rate > 60.0 >56 Glomerula r Filtration Rate [place] ([facility]) creatinine for GFR 1.19 mg/dL 0.70-1.30 Creatinine for GF R [place] ([facility]) potassium serum 4.5 mEq/L 3.5-5.1 Potassium Serum [place] NA ([facility]) sodium level 135 mEq/L 136-145 Below low normal Sodium Level ATHE NA ([facility]) anion gap 8 mEq/L 8-16 Anion Gap [place] ([facility]) carbon dioxide level 27 mEq/L 21-32 Carbon Dioxide Level [place] ([facility]) chloride level 100 mEq/L 98-107 Chloride Level [place] ([facility]) AST/SGOT 9 U/L 7-37 AST/SGOT [place] ([facility]) calcium level 9.3 mg/dL 8.5-10.1 Calcium Level [place] ( [facility]) alkaline phosphatase 71 U/L 45-117 Alkaline Phosph atase [place] ([facility]) bilirubin,total 1.0 mg/dL 0.2-1.0 Bilirubin,total ATHE NA ([facility]) ALT/SGPT 26 U/L 12-78 ALT/SGPT [place] ([facility]) total protein 7.6 gm/dL 6.4-8.2 Total Protein [place] ( [facility]) albumin 3.9 gm/dL 3.2-5.2 Albumin [place] ([facility]) albumin/globulin ratio Albumin/globu jose l Ratio [facility] ([facility]) ID Date Data Source [id number] 04/25/2021 08:05:00 AM EDT [place] ([facility]) Name Value Range Interpretation Code Description Data Sandra rce(s) Supporting Document(s) glucose, fasting 382 mg/dL 70-100 Above high normal Glucose, Fas ting [place] ([facility]) glomerular filtration rate > 60.0 >56 Glomerula r Filtration Rate [facility] ([facility]) creatinine for GFR 1.19 mg/dL 0.70-1.30 Creatinine for GF R [facility] ([facility]) blood urea nitrogen 20 mg/dL 7-18 Above high normal Blood Ure a Nitrogen [facility] ([facility]) sodium level 135 mEq/L 136-145 Below low normal Sodium Level ATHE NA ([facility]) chloride level 100 mEq/L 98-107 Chloride Level [facility] ([facility]) potassium serum 4.5 mEq/L 3.5-5.1 Potassium Serum ATHE NA ([facility]) carbon dioxide level 27 mEq/L 21-32 Carbon Dioxide Level [facility] ([facility]) anion gap 8 mEq/L 8-16 Anion Gap [facility] ([facility]) calcium level 9.3 mg/dL 8.5-10.1 Calcium Level [facility] ( [facility]) ALT/SGPT 26 U/L 12-78 ALT/SGPT [facility] ([facility]) AST/SGOT 9 U/L 7-37 AST/SGOT [place] ([facility]) total protein 7.6 gm/dL 6.4-8.2 Total Protein [facility] ( [facility]) alkaline phosphatase 71 U/L 45-117 Alkaline Phosph atase [facility] ([facility]) bilirubin,total 1.0 mg/dL 0.2-1.0 Bilirubin,total ATHE NA ([facility]) albumin/globulin ratio Albumin/globu jose l Ratio [facility] ([facility]) albumin 3.9 gm/dL 3.2-5.2 Albumin [facility] ([facility]) ID Date Data Source [id number] 04/25/2021 08:05:00 AM EDT [place] ([facility]) Name Value Range Interpretation Code Description Data Sandra rce(s) Supporting Document(s) creatinine for GFR 1.19 mg/dL 0.70-1.30 Creatinine for GF R [facility] ([facility]) glucose, fasting 382 mg/dL 70-100 Above high normal Glucose, Fas ting [facility] ([facility]) blood urea nitrogen 20 mg/dL 7-18 Above high normal Blood Ure a Nitrogen [facility] ([facility]) glomerular filtration rate > 60.0 >56 Glomerula r Filtration Rate [facility] ([facility]) sodium level 135 mEq/L 136-145 Below low normal Sodium Level ATHE ([facility]) carbon dioxide level 27 mEq/L 21-32 Carbon Dioxide Level [facility] ([facility]) potassium serum 4.5 mEq/L 3.5-5.1 Potassium Serum ATHE NA ([facility]) chloride level 100 mEq/L 98-107 Chloride Level [facility] ([facility]) anion gap 8 mEq/L 8-16 Anion Gap [facility] ([facility]) calcium level 9.3 mg/dL 8.5-10.1 Calcium Level [facility] ( [facility]) alkaline phosphatase 71 U/L 45-117 Alkaline Phosph atase [facility] ([facility]) ALT/SGPT 26 U/L 12-78 ALT/SGPT [facility] ([facility]) AST/SGOT 9 U/L 7-37 AST/SGOT [facility] ([facility]) total protein 7.6 gm/dL 6.4-8.2 Total Protein [facility] ( [facility]) bilirubin,total 1.0 mg/dL 0.2-1.0 Bilirubin,total ATHE NA ([facility]) albumin 3.9 gm/dL 3.2-5.2 Albumin [facility] ([facility]) albumin/globulin ratio Albumin/globu jose l Ratio [facility] ([facility]) ID Date Data Source [id number] 04/07/2021 04:34:00 PM EDT [place] ([facility]) Name Value Range Interpretation Code Description Data Sandra rce(s) Supporting Document(s) antinuclear antibodies direct negative negative Antinu clear Antibodies Direct [facility] ([facility]) ID Date Data Source [id number] 04/07/2021 04:34:00 PM EDT [facility] ([facility]) Name Value Range Interpretation Code Description Data Sandra rce(s) Supporting Document(s) vitamin B6,pyridoxal phosphate 13.4 ug/L 5.3-46.7 Vitamin B6,Pyridoxal Phosphate [facility] ([facility]) ID Date Data Source [id number] 04/07/2021 04:34:00 PM EDT [facility] ([facility]) Name Value Range Interpretation Code Description Data Sandra rce(s) Supporting Document(s) vitamin B1 level whole blood 134.8 nmol/L 66.5-200.0 Vitamin B1 Level Whole Blood [facility] ([facility]) ID Date Data Source [id number] 04/07/2021 04:34:00 PM EDT [place] ([facility]) Name Value Range Interpretation Code Description Data Sandra rce(s) Supporting Document(s) vitamin E(alpha tocopherol) 6.2 mg/L 7.0-25.1 Below low nor mal Vitamin E(alpha Tocopherol) [facility] ([facility]) vitamin E(gamma tocopherol) 0.7 mg/L 0.5-5.5 Vitamin E(gamma Tocopherol) [facility] ([facility]) ID Date Data Source [id number] 04/07/2021 04:34:00 PM EDT [place] ([facility]) Name Value Range Interpretation Code Description Data Sandra rce(s) Supporting Document(s) rheumatoid factor quant < 10.0 <15.0 Rheumatoid F actor Quant [place] ([facility]) ID Date Data Source [id number] 04/07/2021 04:34:00 PM EDT [place] ([facility]) Name Value Range Interpretation Code Description Data Sandra rce(s) Supporting Document(s) folate 17.7 NG/mL Folate [facility] ([facility]) vitamin B12 level 493 pg/mL Vitamin B12 Level [place] ([facility]) ID Date Data Source [id number] 04/07/2021 04:34:00 PM EDT [place] ([facility]) Name Value Range Interpretation Code Description Data Sandra rce(s) Supporting Document(s) zpgcl-7-wnnfdtji % 3.4 % 2.9-4.9 Afnhn-7-Naztqqte % [place] ([facility]) albumin % 60.8 % 55.8-66.1 Albumin % [place] ([facility]) ssbc-8-pwxybwdrv % 5.5 % 4.7-7.2 Ctlh-4-Rzafvfzio % [place] ([facility]) wwgev-7-agqxsydiv % 10.3 % 7.1-11.8 Nuzmx-8-Snekzyqw s % [place] ([facility]) gamma globulin % 14.3 % 11.1-18.8 Gamma Globulin % AT [facility]) dezp-7-equpdzymu % 5.7 % 3.2-6.5 Yanz-0-Bsrffdzsg % [place] ([facility]) qzmxy-8-nmtxqublq 0.75 gm/dL 0.42-0.99 Koziu-4-Tiwangirg [place] ([facility]) ihfji-4-sfvblzxem 0.25 gm/dL 0.17-0.41 Jbvjb-7-Icxmultoz [facility] ([facility]) albumin 4.44 gm/dL 3.29-5.55 Albumin [facility] ([facility]) hhxm-2-tkhuzyhnt 0.40 gm/dL 0.28-0.60 Jalr-4-Ldznbioxl AT [facility] ([facility]) pakv-5-jwblsrmvz 0.42 gm/dL 0.19-0.55 Zfen-0-Vrvfgnktg AT [facility] ([facility]) gamma globulins 1.04 gm/dL 0.65-1.58 Gamma Globulins [facility] ([facility]) total protein 7.3 gm/dL 6.4-8.2 Total Protein [facility] ( [facility]) spep pathologist review rev'd by Anna kumar Spep Pathologist Review [place] ([facility]) spep interpretation see comment Spep Interpreta tion [place] ([facility]) ID Date Data Source [id number] 04/07/2021 04:34:00 PM EDT [place] ([facility]) Name Value Range Interpretation Code Description Data Sandra rce(s) Supporting Document(s) PTT lupus type anticoag screen 0-1.2 PTT L upus Type Anticoag Screen [place] ([facility]) ID Date Data Source [id number] 04/07/2021 04:34:00 PM EDT [place] ([facility]) Name Value Range Interpretation Code Description Data Sandra rce(s) Supporting Document(s) erythrocyte sedimentation rate 3 mm/HR 0-20 Eryth rocyte Sedimentation Rate [place] ([facility]) ID Date Data Source [id number] 04/07/2021 04:34:00 PM EDT [facility]) Name Value Range Interpretation Code Description Data Sandra rce(s) Supporting Document(s) Hemoglobin A1c/Hemoglobin.total in Blood 11.3 % Hemoglobin a1C [place] ([facility]) estimated average glucose 278 mg/dL 60-110 Above high norm al Estimated Average Glucose [facility] ([facility]) ID Date Data Source [id number] 04/07/2021 04:34:00 PM EDT [facility]) Name Value Range Interpretation Code Description Data Sandra rce(s) Supporting Document(s) antinuclear antibodies direct negative negative Antinu clear Antibodies Direct [facility]) ID Date Data Source [id number] 04/07/2021 04:34:00 PM EDT [facility]) Name Value Range Interpretation Code Description Data Sandra rce(s) Supporting Document(s) vitamin B6,pyridoxal phosphate 13.4 ug/L 5.3-46.7 Vitamin B6,Pyridoxal Phosphate [facility]) ID Date Data Source [id number] 04/07/2021 04:34:00 PM EDT [facility]) Name Value Range Interpretation Code Description Data Sandra rce(s) Supporting Document(s) vitamin B1 level whole blood 134.8 nmol/L 66.5-200.0 Vitamin B1 Level Whole Blood [facility]) ID Date Data Source [id number] 04/07/2021 04:34:00 PM EDT [facility]) Name Value Range Interpretation Code Description Data Sandra rce(s) Supporting Document(s) vitamin E(alpha tocopherol) 6.2 mg/L 7.0-25.1 Below low nor mal Vitamin E(alpha Tocopherol) [facility] ([facility]) vitamin E(gamma tocopherol) 0.7 mg/L 0.5-5.5 Vitamin E(gamma Tocopherol) [facility]) ID Date Data Source [id number] 04/07/2021 04:34:00 PM EDT [facility]) Name Value Range Interpretation Code Description Data Sandra rce(s) Supporting Document(s) rheumatoid factor quant < 10.0 <15.0 Rheumatoid F actor Quant [facility] ([facility]) ID Date Data Source [id number] 04/07/2021 04:34:00 PM EDT [place] ([facility]) Name Value Range Interpretation Code Description Data Sandra rce(s) Supporting Document(s) vitamin B12 level 493 pg/mL Vitamin B12 Level [place] ([facility]) folate 17.7 NG/mL Folate [facility] ([facility]) ID Date Data Source [id number] 04/07/2021 04:34:00 PM EDT [place] ([facility]) Name Value Range Interpretation Code Description Data Sandra rce(s) Supporting Document(s) albumin % 60.8 % 55.8-66.1 Albumin % [place] ([facility]) yfltw-2-wmvxmojn % 3.4 % 2.9-4.9 Hfpbx-0-Pcfaypld % [place] ([facility]) ugcp-1-gmmkedrao % 5.5 % 4.7-7.2 Swsk-8-Zbbforrmf % [place] ([facility]) heuwv-6-ehmhszsyw % 10.3 % 7.1-11.8 Fvaow-4-Zzzbjhlg s % [place] ([facility]) gamma globulin % 14.3 % 11.1-18.8 Gamma Globulin % AT [facility]) jdzp-4-fgefwumnk % 5.7 % 3.2-6.5 Pgmk-6-Axjfxeaai % [place] ([facility]) zvxqk-9-moyjhcsnq 0.25 gm/dL 0.17-0.41 Buwsn-9-Lrowaokgs [facility] ([facility]) albumin 4.44 gm/dL 3.29-5.55 Albumin [facility] ([facility]) joqef-2-rodyyvvxq 0.75 gm/dL 0.42-0.99 Vbcbs-2-Dgpbvtrai [place] ([facility]) szbn-2-jzwklzfub 0.40 gm/dL 0.28-0.60 Jchh-1-Sdvliygza AT [facility] ([facility]) hirq-4-szvyajtdm 0.42 gm/dL 0.19-0.55 Ieaq-6-Scgphyapd AT [facility] ([facility]) gamma globulins 1.04 gm/dL 0.65-1.58 Gamma Globulins [facility] ([facility]) spep interpretation see comment Spep Interpreta tion [facility] ([facility]) total protein 7.3 gm/dL 6.4-8.2 Total Protein [facility] ( [facility]) spep pathologist review rev'd by Anna kumar Spep Pathologist Review [facility] ([facility]) ID Date Data Source [id number] 04/07/2021 04:34:00 PM EDT [place] ([facility]) Name Value Range Interpretation Code Description Data Sandra rce(s) Supporting Document(s) PTT lupus type anticoag screen 0-1.2 PTT L upus Type Anticoag Screen [facility] ([facility]) ID Date Data Source [id number] 04/07/2021 04:34:00 PM EDT [place] ([facility]) Name Value Range Interpretation Code Description Data Sandra rce(s) Supporting Document(s) erythrocyte sedimentation rate 3 mm/HR 0-20 Eryth rocyte Sedimentation Rate [facility] ([facility]) ID Date Data Source [id number] 04/07/2021 04:34:00 PM EDT [place] ([facility]) Name Value Range Interpretation Code Description Data Sandra rce(s) Supporting Document(s) Hemoglobin A1c/Hemoglobin.total in Blood 11.3 % Hemoglobin a1C [facility] ([facility]) estimated average glucose 278 mg/dL 60-110 Above high norm al Estimated Average Glucose [place] ([facility]) ID Date Data Source [id number] 04/07/2021 04:34:00 PM EDT [facility]) Name Value Range Interpretation Code Description Data Sandra rce(s) Supporting Document(s) antinuclear antibodies direct negative negative Antinu clear Antibodies Direct [facility]) ID Date Data Source [id number] 04/07/2021 04:34:00 PM EDT [facility]) Name Value Range Interpretation Code Description Data Sandra rce(s) Supporting Document(s) vitamin B6,pyridoxal phosphate 13.4 ug/L 5.3-46.7 Vitamin B6,Pyridoxal Phosphate [facility]) ID Date Data Source [id number] 04/07/2021 04:34:00 PM EDT [facility]) Name Value Range Interpretation Code Description Data Sandra rce(s) Supporting Document(s) vitamin B1 level whole blood 134.8 nmol/L 66.5-200.0 Vitamin B1 Level Whole Blood [facility]) ID Date Data Source [id number] 04/07/2021 04:34:00 PM EDT [facility]) Name Value Range Interpretation Code Description Data Sandra rce(s) Supporting Document(s) vitamin E(alpha tocopherol) 6.2 mg/L 7.0-25.1 Below low nor mal Vitamin E(alpha Tocopherol) [place] ([facility]) vitamin E(gamma tocopherol) 0.7 mg/L 0.5-5.5 Vitamin E(gamma Tocopherol) [facility]) ID Date Data Source [id number] 04/07/2021 04:34:00 PM EDT [facility]) Name Value Range Interpretation Code Description Data Sandra rce(s) Supporting Document(s) rheumatoid factor quant < 10.0 <15.0 Rheumatoid F actor Quant [facility]) ID Date Data Source [id number] 04/07/2021 04:34:00 PM EDT [place] ([facility]) Name Value Range Interpretation Code Description Data Sandra rce(s) Supporting Document(s) vitamin B12 level 493 pg/mL Vitamin B12 Level [place] ([facility]) folate 17.7 NG/mL Folate [facility] ([facility]) ID Date Data Source [id number] 04/07/2021 04:34:00 PM EDT [place] ([facility]) Name Value Range Interpretation Code Description Data Sandra rce(s) Supporting Document(s) albumin % 60.8 % 55.8-66.1 Albumin % [facility]) cdits-2-scxfnndz % 3.4 % 2.9-4.9 Qarbf-0-Unrgylhc % [facility]) keajw-0-pbrjoypmp % 10.3 % 7.1-11.8 Uxfng-1-Hgleerau s % [place] ([facility]) jbdv-3-krvwmlkkk % 5.7 % 3.2-6.5 Ybfz-8-Ehpbogcst % [place] ([facility]) ztpc-1-jqdrlwtdi % 5.5 % 4.7-7.2 Lesf-3-Ozadbzmty % [facility]) albumin 4.44 gm/dL 3.29-5.55 Albumin [facility]) gamma globulin % 14.3 % 11.1-18.8 Gamma Globulin % AT [facility]) rntnr-0-qnecfkaps 0.25 gm/dL 0.17-0.41 Kynej-8-Vkmhzkkvh [place] ([facility]) omstn-6-pqvbtxoah 0.75 gm/dL 0.42-0.99 Vffgf-8-Iuryrtuji [place] ([facility]) rmtp-7-vfphogbki 0.42 gm/dL 0.19-0.55 Oovb-7-Hpueenwwh AT [facility]) zpap-6-biozdbxnv 0.40 gm/dL 0.28-0.60 Xbvz-5-Jaoitawgy AT [place] ([facility]) gamma globulins 1.04 gm/dL 0.65-1.58 Gamma Globulins [facility] [place] ([facility]) spep interpretation see comment Spep Interpreta tion [facility] ([facility]) total protein 7.3 gm/dL 6.4-8.2 Total Protein [facility] ( [facility]) spep pathologist review rev'd by Anna kumar Spep Pathologist Review [facility] ([facility]) ID Date Data Source [id number] 04/07/2021 04:34:00 PM EDT [place] ([facility]) Name Value Range Interpretation Code Description Data Sandra rce(s) Supporting Document(s) PTT lupus type anticoag screen 0-1.2 PTT L upus Type Anticoag Screen [facility] ([facility]) ID Date Data Source [id number] 04/07/2021 04:34:00 PM EDT [place] ([facility]) Name Value Range Interpretation Code Description Data Sandra rce(s) Supporting Document(s) erythrocyte sedimentation rate 3 mm/HR 0-20 Eryth rocyte Sedimentation Rate [facility] ([facility]) ID Date Data Source [id number] 04/07/2021 04:34:00 PM EDT [place] ([facility]) Name Value Range Interpretation Code Description Data Sandra rce(s) Supporting Document(s) estimated average glucose 278 mg/dL 60-110 Above high norm al Estimated Average Glucose [facility] ([facility]) Hemoglobin A1c/Hemoglobin.total in Blood 11.3 % Hemoglobin a1C [facility] ([facility]) ID Date Data Source [id number] 04/07/2021 04:34:00 PM EDT [place] ([facility]) Name Value Range Interpretation Code Description Data Sandra rce(s) Supporting Document(s) antinuclear antibodies direct negative negative Antinu clear Antibodies Direct [facility] ([facility]) ID Date Data Source [id number] 04/07/2021 04:34:00 PM EDT [facility]) Name Value Range Interpretation Code Description Data Sandra rce(s) Supporting Document(s) vitamin B6,pyridoxal phosphate 13.4 ug/L 5.3-46.7 Vitamin B6,Pyridoxal Phosphate [facility]) ID Date Data Source [id number] 04/07/2021 04:34:00 PM EDT [facility]) Name Value Range Interpretation Code Description Data Sandra rce(s) Supporting Document(s) vitamin B1 level whole blood 134.8 nmol/L 66.5-200.0 Vitamin B1 Level Whole Blood [facility]) ID Date Data Source [id number] 04/07/2021 04:34:00 PM EDT [facility]) Name Value Range Interpretation Code Description Data Sandra rce(s) Supporting Document(s) vitamin E(alpha tocopherol) 6.2 mg/L 7.0-25.1 Below low nor mal Vitamin E(alpha Tocopherol) [place] ([facility]) vitamin E(gamma tocopherol) 0.7 mg/L 0.5-5.5 Vitamin E(gamma Tocopherol) [facility]) ID Date Data Source [id number] 04/07/2021 04:34:00 PM EDT [facility]) Name Value Range Interpretation Code Description Data Sandra rce(s) Supporting Document(s) rheumatoid factor quant < 10.0 <15.0 Rheumatoid F actor Quant [facility]) ID Date Data Source [id number] 04/07/2021 04:34:00 PM EDT [facility]) Name Value Range Interpretation Code Description Data Sandra rce(s) Supporting Document(s) vitamin B12 level 493 pg/mL Vitamin B12 Level [facility]) folate 17.7 NG/mL Folate [facility] ([facility]) ID Date Data Source [id number] 04/07/2021 04:34:00 PM EDT [place] ([facility]) Name Value Range Interpretation Code Description Data Sandra rce(s) Supporting Document(s) albumin % 60.8 % 55.8-66.1 Albumin % [place] ([facility]) iuekb-1-mfktchkz % 3.4 % 2.9-4.9 Ijlpk-5-Gvmlmoql % [place] ([facility]) nhulu-7-jrdwkfbux % 10.3 % 7.1-11.8 Jsvru-9-Chkdcbws s % [place] ([facility]) dwxk-5-zkndhwvji % 5.5 % 4.7-7.2 Ggic-2-Uelkhnopv % [place] ([facility]) zlii-8-mmjzajlec % 5.7 % 3.2-6.5 Pfsd-1-Byjfpjqkw % [place] ([facility]) gamma globulin % 14.3 % 11.1-18.8 Gamma Globulin % AT [facility] ([facility]) imdex-5-wcftyytro 0.75 gm/dL 0.42-0.99 Oziks-1-Zxjvqczwc [place] ([facility]) lbqpl-9-zlrmekvgr 0.25 gm/dL 0.17-0.41 Kjywb-9-Nzhlfrmto [place] ([facility]) albumin 4.44 gm/dL 3.29-5.55 Albumin [place] ([facility]) veju-0-exbpokfdh 0.40 gm/dL 0.28-0.60 Ncgk-8-Ktrkdfdbu AT [facility]) jjqc-6-mkatyxcxo 0.42 gm/dL 0.19-0.55 Uqfj-2-Gljmphvov AT [facility]) gamma globulins 1.04 gm/dL 0.65-1.58 Gamma Globulins [facility] ([facility]) spep interpretation see comment Spep Interpreta tion [facility] ([facility]) spep pathologist review rev'd by S haghir Spep Pathologist Review [place] ([facility]) total protein 7.3 gm/dL 6.4-8.2 Total Protein [place] ( [facility]) ID Date Data Source [id number] 04/07/2021 04:34:00 PM EDT [place] ([facility]) Name Value Range Interpretation Code Description Data Sandra rce(s) Supporting Document(s) PTT lupus type anticoag screen 0-1.2 PTT L upus Type Anticoag Screen [place] ([facility]) ID Date Data Source [id number] 04/07/2021 04:34:00 PM EDT [place] ([facility]) Name Value Range Interpretation Code Description Data Sandra rce(s) Supporting Document(s) erythrocyte sedimentation rate 3 mm/HR 0-20 Eryth rocyte Sedimentation Rate [place] ([facility]) ID Date Data Source [id number] 04/07/2021 04:34:00 PM EDT [place] ([facility]) Name Value Range Interpretation Code Description Data Sandra rce(s) Supporting Document(s) Hemoglobin A1c/Hemoglobin.total in Blood 11.3 % Hemoglobin a1C [place] ([facility]) estimated average glucose 278 mg/dL 60-110 Above high norm al Estimated Average Glucose [place] ([facility]) ID Date Data Source [id number] 04/07/2021 04:34:00 PM EDT [facility] ([facility]) Name Value Range Interpretation Code Description Data Sandra rce(s) Supporting Document(s) Antinuclear Antibodies Direct Laboratory test result [facility] ([facility]) Performed at: - [facility] [id number] [employer] Sales Representative: Jaime Chaney MD, Phone: [phone] Performed at: - [facility] [address] [id number] [employer] Sales Representative: Andria Dinh MD, Phone: [phone] ID Date Data Source [id number] 04/07/2021 04:34:00 PM EDT [facility] ([facility], ) Name Value Range Interpretation Code Description Data Sandra rce(s) Supporting Document(s) Thiamine [Mass/volume] in Blood 134.8 nmol/L 66.5-200.0 [facility] ([facility], ) Specimen Comment: Test(s) 166615-Vtqjvrm E(Alpha Tocopherol); 882350- Specimen Comment: Vitamin E(Gamma Tocopherol); 834025-Ipbboxw B6; 597987- Specimen Comment: Vit. B1, Whole Blood Specimen Comment: was developed and its performance characteristics Specimen Comment: determined by [facility]. It has not been cleared or approved Specimen Comment: by the Food and Drug Administration. Pyridoxine [Mass/volume] in Serum or Plasma 13.4 ug/L 5.3-46.7 [facility] ([facility], ) Specimen Comment: Test(s) 329987-Fltdysk E(Alpha Tocopherol); 124052- Specimen Comment: Vitamin E(Gamma Tocopherol); 232646-Ycjvdla B6; 528049- Specimen Comment: Vit. B1, Whole Blood Specimen Comment: was developed and its performance characteristics Specimen Comment: determined by [facility]. It has not been cleared or approved Specimen Comment: by the Food and Drug Administration. ID Date Data Source [id number] 04/07/2021 04:34:00 PM EDT [facility] ([facility], ) Name Value Range Interpretation Code Description Data Sandra rce(s) Supporting Document(s) Vitamin E(Alpha Tocopherol) 6.2 mg/L 7.0-25.1 [facility] ([facility], ) Vitamin E(Gamma Tocopherol) 0.7 mg/L 0.5-5.5 [facility] ([facility], ) Reference intervals for alpha and gamma- tocopherol determined from National Health and Nutrition Examination Survey, 4275-7018. Individuals with alpha-tocopherol levels less than 5.0 mg/L are considered vitamin E deficient. ID Date Data Source [id number] 04/07/2021 04:34:00 PM EDT [facility] ([facility], ) Name Value Range Interpretation Code Description Data Sandra rce(s) Supporting Document(s) Rheumatoid factor [Units/volume] in Serum or Plasma Laboratory test result [facility] ([facility], ) <content>note:<nlbl:demographic_changed> </content>
<content></content> ID Date Data Source [id number] 04/07/2021 04:34:00 PM EDT [facility] ([facility], ) Name Value Range Interpretation Code Description Data Sandra rce(s) Supporting Document(s) Vitamin B12 Level 493 pg/mL [facility] ([facility], ) VITAMIN B12 NORMAL RANGE NORMAL 247 - 911 PG/ML INDETERMINATE 211 - 246 PG/ML DEFICIENT LESS THAN 211 PG/ML Folate 17.7 ng/mL [facility] ([facility], ) FOLATE NORMAL RANGE NORMAL GREATER THAN 5.4 NG/ML INDETERMINATE 3.4-5.4 NG/ML DEFICIENT LESS THAN 3.4 NG/ML ID Date Data Source [id number] 04/07/2021 04:34:00 PM EDT [facility] ([facility], ) Name Value Range Interpretation Code Description Data Sandra rce(s) Supporting Document(s) Albumin % 60.8 % 55.8-66.1 [facility] ([facility] ) Ezyfi-2-Aguuieoo % 3.4 % 2.9-4.9 [facility] ([facility], ) Vrmxb-5-Lkwkxxshb % 10.3 % 7.1-11.8 [facility] ([facility], ) Yxjk-9-Oytojepnq % 5.5 % 4.7-7.2 [facility] ([facility], ) Adyt-6-Sbjbibbel % 5.7 % 3.2-6.5 [facility] ([facility], ) Albumin 4.44 GM/DL 3.29-5.55 [facility] ([facility], ) Gamma Globulin % 14.3 % 11.1-18.8 [facility] Ayjlh-0-Qyxgqnfjt 0.25 GM/DL 0.17-0.41 [facility] ([facility], ) Rpxsa-0-Esregejjm 0.75 GM/DL 0.42-0.99 [facility] ([facility], ) Jhsu-7-Dpeesyatg 0.42 GM/DL 0.19-0.55 [facility] ([facility], ) Zdlc-8-Fnbviivgz 0.40 GM/DL 0.28-0.60 [facility] ([facility], ) Gamma Globulins 1.04 GM/DL 0.65-1.58 [facility] ([facility]) Total Protein 7.3 GM/DL 6.4-8.2 [facility] ([facility]) Spep Interpretation Laboratory test result [facility] ([facility]) NO M-SPIKE(S)NOTED. Laboratory test finding (navigational concept) Laboratory test result [facility] ([facility]) REV'D BY Anna KUMAR ID Date Data Source [id number] 04/07/2021 04:34:00 PM EDT [facility] ([facility]) Name Value Range Interpretation Code Description Data Sandra rce(s) Supporting Document(s) Hemoglobin A1c 11.3 % [facility] ([facility]) <content>REFERENCE RANGES:</content><br/ ><content></content>
<content><=5.6% NORMAL</content>
<content>5.7-6.4% SUGGESTS IMPAIRED GLUCOSE METABOLISM/PREDIABETIC</content>
<content>>= 6.5% ABNORMAL</content>
<content></content> Estimated Average Glucose 278 mg/dL 60-110 [facility] ([facility]) ID Date Data Source [id number] 04/07/2021 04:34:00 PM EDT [facility]) Name Value Range Interpretation Code Description Data Sandra rce(s) Supporting Document(s) antinuclear antibodies direct negative negative Antinu clear Antibodies Direct [facility]) ID Date Data Source [id number] 04/07/2021 04:34:00 PM EDT [facility]) Name Value Range Interpretation Code Description Data Sandra rce(s) Supporting Document(s) vitamin B6,pyridoxal phosphate 13.4 ug/L 5.3-46.7 Vitamin B6,Pyridoxal Phosphate [place] ([facility]) ID Date Data Source [id number] 04/07/2021 04:34:00 PM [facility] Name Value Range Interpretation Code Description Data Sandra rce(s) Supporting Document(s) vitamin B1 level whole blood 134.8 nmol/L 66.5-200.0 Vitamin B1 Level Whole Blood [place] ([facility]) ID Date Data Source [id number] 04/07/2021 04:34:00 PM [facility] Name Value Range Interpretation Code Description Data Sandra rce(s) Supporting Document(s) vitamin E(alpha tocopherol) 6.2 mg/L 7.0-25.1 Below low nor mal Vitamin E(alpha Tocopherol) [place] ([facility]) vitamin E(gamma tocopherol) 0.7 mg/L 0.5-5.5 Vitamin E(gamma Tocopherol) [place] ([facility]) ID Date Data Source [id number] 04/07/2021 04:34:00 PM EDT [facility] Name Value Range Interpretation Code Description Data Sandra rce(s) Supporting Document(s) rheumatoid factor quant < 10.0 <15.0 Rheumatoid F actor Quant [facility] ([facility]) ID Date Data Source [id number] 04/07/2021 04:34:00 PM EDT [facility]) Name Value Range Interpretation Code Description Data Sandra rce(s) Supporting Document(s) vitamin B12 level 493 pg/mL [facility] folate 17.7 NG/mL Folate [facility] ([facility]) ID Date Data Source [id number] 04/07/2021 04:34:00 PM EDT [facility]) Name Value Range Interpretation Code Description Data Sandra rce(s) Supporting Document(s) hsrdf-2-hefhqhis % 3.4 % 2.9-4.9 Tzorc-7-Brdecqxp % [place] ([facility]) albumin % 60.8 % 55.8-66.1 Albumin % [place] ([facility]) aksg-2-isapznjln % 5.7 % 3.2-6.5 Mgrb-2-Hfhzozblt % [place] ([facility]) uxwe-0-trkkospdq % 5.5 % 4.7-7.2 Xekw-7-Eqatcljls % [place] ([facility]) bcjki-5-fttapsymt % 10.3 % 7.1-11.8 Nezdt-0-Fslbulml s % [place] ([facility]) albumin 4.44 gm/dL 3.29-5.55 Albumin [place] ([facility]) fxpbh-6-awwpiahcd 0.25 gm/dL 0.17-0.41 Owugw-0-Azpukkruk [place] ([facility]) gamma globulin % 14.3 % 11.1-18.8 Gamma Globulin % [facility]) cjfw-0-gsjttxlta 0.42 gm/dL 0.19-0.55 Ocqb-7-Tnszjtpyw AT [facility]) zgpg-0-ctbdzifdb 0.40 gm/dL 0.28-0.60 Tgpo-6-Ctylkppbo AT [facility]) isnjc-5-hoqwfkrwv 0.75 gm/dL 0.42-0.99 Wglji-4-Tlbswnnhn [place] ([facility]) gamma globulins 1.04 gm/dL 0.65-1.58 Gamma Globulins [facility] ([facility]) spep interpretation see comment Spep Interpreta tion [facility] ([facility]) total protein 7.3 gm/dL 6.4-8.2 Total Protein [place] ( [facility]) spep pathologist review rev'd by Anna kumar Spep Pathologist Review [place] ([facility]) ID Date Data Source [id number] 04/07/2021 04:34:00 PM EDT [place] ([facility]) Name Value Range Interpretation Code Description Data Sandra rce(s) Supporting Document(s) PTT lupus type anticoag screen 0-1.2 PTT L upus Type Anticoag Screen [place] ([facility]) ID Date Data Source [id number] 04/07/2021 04:34:00 PM EDT [place] ([facility]) Name Value Range Interpretation Code Description Data Sandra rce(s) Supporting Document(s) erythrocyte sedimentation rate 3 mm/HR 0-20 Eryth rocyte Sedimentation Rate [place] ([facility]) ID Date Data Source [id number] 04/07/2021 04:34:00 PM EDT [place] ([facility]) Name Value Range Interpretation Code Description Data Sandra rce(s) Supporting Document(s) estimated average glucose 278 mg/dL 60-110 Above high norm al Estimated Average Glucose [place] ([facility]) Hemoglobin A1c/Hemoglobin.total in Blood 11.3 % Hemoglobin a1C [place] ([facility]) ID Date Data Source [id number] 04/07/2021 04:34:00 PM EDT [facility] ([facility], ) Name Value Range Interpretation Code Description Data Sandra rce(s) Supporting Document(s) PTT Lupus Type Anticoag Screen 0.8 0-1.2 [facility] ([facility], ) RESULT IS LESS THAN [...] a specific inhibitor. ID Date Data Source [id number] 04/07/2021 04:34:00 PM EDT [facility] ([facility], ) Name Value Range Interpretation Code Description Data Sandra rce(s) Supporting Document(s) Erythrocyte sedimentation rate by 2H Westergren method 3 mm/hr 0-2 0 [facility] ([facility]) ID Date Data Source [id number] 03/10/2021 08:51:00 AM EDT [facility]) Name Value Range Interpretation Code Description Data Sandra rce(s) Supporting Document(s) Hemoglobin A1c/Hemoglobin.total in Blood 13.2 % Abnormal (applies to non- numeric results) Hba1C [place] ([facility]) ID Date Data Source [id number] 03/10/2021 08:51:00 AM EDT [facility]) Name Value Range Interpretation Code Description Data Sandra rce(s) Supporting Document(s) Hemoglobin A1c/Hemoglobin.total in Blood 13.2 % Abnormal (applies to non- numeric results) Hba1C [place] ([facility]) ID Date Data Source [id number] 03/10/2021 08:51:00 AM EDT [facility]) Name Value Range Interpretation Code Description Data Sandra rce(s) Supporting Document(s) Hemoglobin A1c/Hemoglobin.total in Blood 13.2 % Abnormal (applies to non- numeric results) Hba1C [place] ([facility]) ID Date Data Source [id number] 03/10/2021 08:51:00 AM EDT [facility]) Name Value Range Interpretation Code Description Data Sandra rce(s) Supporting Document(s) Hemoglobin A1c/Hemoglobin.total in Blood 13.2 % Abnormal (applies to non- numeric results) Hba1C [facility] ([facility]) ID Date Data Source [id number] 03/10/2021 08:51:00 AM EDT [facility]) Name Value Range Interpretation Code Description Data Sandra rce(s) Supporting Document(s) Hemoglobin A1c/Hemoglobin.total in Blood 13.2 % Abnormal (applies to non- numeric results) Hba1C [place] ([facility]) ID Date Data Source [id number] 03/10/2021 08:51:00 AM EDT [place] ([facility]) Name Value Range Interpretation Code Description Data Sandra rce(s) Supporting Document(s) Hemoglobin A1c/Hemoglobin.total in Blood 13.2 % Abnormal (applies to non- numeric results) Hba1C [place] ([facility]) ID Date Data Source [id number] 03/10/2021 08:51:00 AM EDT [facility] ([facility]) Name Value Range Interpretation Code Description Data Sandra rce(s) Supporting Document(s) Hemoglobin A1c/Hemoglobin.total in Blood 13.2 % Abnormal (applies to non- numeric results) Hba1C [place] ([facility]) ID Date Data Source [id number] 03/09/2021 08:39:00 AM EDT [facility] ([facility]) Name Value Range Interpretation Code Description Data Asndra rce(s) Supporting Document(s) jesse/creat ratio 66.9 mcg/mg 0.0-30.0 Above high normal Jesse/creat Ra susy [place] ([facility]) malb urine siemens 35.3 mg/L Malb Urine Siemen s [facility] ([facility]) creatinine, urine 52.7 mg/dL Creatinine, Urine [place] ([facility]) ID Date Data Source [id number] 03/09/2021 08:39:00 AM EDT [place] ([facility]) Name Value Range Interpretation Code Description Data Sandra rce(s) Supporting Document(s) cholesterol level 145 mg/dL <200 Cholesterol Level [facility] ([facility]) triglycerides level 176 mg/dL <150 Above high normal Triglycer ides Level [facility] ([facility]) non-HDL-C 98 mg/dL Non-hdl-c [facility] ([facility]) Cholesterol in LDL [Mass/volume] in Serum or Plasma 63 mg/dL <1 00 LDL Cholesterol [facility] ([facility]) HDL cholesterol 47 mg/dL >40 HDL Cholesterol [facility] NA ([facility]) cholesterol risk ratio <5 Cholesterol R isk Ratio [facility] ([facility]) ID Date Data Source [id number] 03/09/2021 08:39:00 AM EDT [facility] ([facility]) Name Value Range Interpretation Code Description Data Sandra rce(s) Supporting Document(s) blood urea nitrogen 15 mg/dL 7-18 Blood Urea Nitro gen [facility] ([facility]) glucose, fasting 326 mg/dL 70-100 Above high normal Glucose, Fas ting [facility] ([facility]) creatinine for GFR 1.04 mg/dL 0.70-1.30 Creatinine for GF R [facility] ([facility]) glomerular filtration rate > 60.0 >56 Glomerula r Filtration Rate [facility] ([facility]) sodium level 137 mEq/L 136-145 Sodium Level [facility] ([facility]) potassium serum 4.3 mEq/L 3.5-5.1 Potassium Serum [facility] ([facility]) chloride level 102 mEq/L 98-107 Chloride Level [facility] ([facility]) anion gap 4 mEq/L 8-16 Below low normal Anion Gap [facility] ( [facility]) carbon dioxide level 31 mEq/L 21-32 Carbon Dioxide Level [facility] ([facility]) ALT/SGPT 29 U/L 12-78 ALT/SGPT [facility] ([facility]) AST/SGOT 11 U/L 7-37 AST/SGOT [facility] ([facility]) calcium level 9.3 mg/dL 8.5-10.1 Calcium Level [facility] ( [facility]) alkaline phosphatase 74 U/L 45-117 Alkaline Phosph atase [facility] ([facility]) total protein 7.9 gm/dL 6.4-8.2 Total Protein [facility] ( [facility]) bilirubin,total 1.1 mg/dL 0.2-1.0 Above high normal Bilirubin,tot al [facility] ([facility]) albumin 4.2 gm/dL 3.2-5.2 Albumin [facility] ([facility]) albumin/globulin ratio Albumin/globu jose l Ratio [facility] ([facility]) ID Date Data Source [id number] 03/09/2021 08:39:00 AM EDT [facility] ([facility]) Name Value Range Interpretation Code Description Data Asndra rce(s) Supporting Document(s) white blood count 6.3 10 4.0-10.0 White Blood Count [facility] ([facility]) red blood count 5.76 10 4.30-6.10 Red Blood Count [facility] ([facility]) mean corpuscular volume 90.1 fL 80.0-96.0 Mean Corpusc ular Volume [facility] ([facility]) hemoglobin 18.4 g/dL 13.5-17.5 Above high normal Hemoglobin [facility] ([facility]) hematocrit 51.9 % 42.0-52.0 Hematocrit [facility] ([facility]) mean corpuscular HGB conc 35.5 g/dL 32.0-36.5 Mean Corpu scular HGB Conc [facility] ([facility]) mean corpuscular hemoglobin 31.9 pg 27.0-33.0 Mean Cor puscular Hemoglobin [facility] ([facility]) red cell distribution width 12.7 % 11.5-14.5 Red Cell Distribution Width [facility] ([facility]) neutrophils % 59.4 % 36.0-66.0 Neutrophils % [facility] ( [facility]) platelet count, automated 171 10 150-450 Platelet C ount, Automated [facility] ([facility]) lymph % 28.3 % 24.0-44.0 Lymph % [facility] ([facility]) eos % 1.8 % 0.0-3.0 Eos % [facility] ([facility]) mono % 9.4 % 2.0-8.0 Above high normal [place] % [facility] ([facility]) baso % 0.5 % 0.0-1.0 Baso % [facility] ([facility]) nucleated red blood cell % 0.0 % 0-0 Nucleated Red Blood Cell % [facility] ([facility]) immature granulocyte % 0.6 % 0-3.0 Immature Gran ulocyte % [facility] ([facility]) lymph # 1.8 10 1.5-5.0 Lymph # [facility] ([facility]) neutrophils # 3.7 10 1.5-8.5 Neutrophils # [facility] ( [facility]) mono # 0.6 10 0.0-0.8 [place] # [facility] ([facility]) baso # 0.0 10 0.0-0.2 Baso # [facility] ([facility]) eos # 0.1 10 0.0-0.5 Eos # [facility] ([facility]) ID Date Data Source [id number] 03/09/2021 08:39:00 AM EDT [facility] ([facility]) Name Value Range Interpretation Code Description Data Sandra rce(s) Supporting Document(s) creatinine, urine 52.7 mg/dL Creatinine, Urine [facility] ([facility]) malb urine siemens 35.3 mg/L Malb Urine Siemen s [facility] ([facility]) jesse/creat ratio 66.9 mcg/mg 0.0-30.0 Above high normal Jesse/creat Ra susy [place] ([facility]) ID Date Data Source [id number] 03/09/2021 08:39:00 AM EDT [place] ([facility]) Name Value Range Interpretation Code Description Data Sandra rce(s) Supporting Document(s) cholesterol level 145 mg/dL <200 Cholesterol Level [facility] ([facility]) triglycerides level 176 mg/dL <150 Above high normal Triglycer ides Level [facility] ([facility]) HDL cholesterol 47 mg/dL >40 HDL Cholesterol [facility] NA ([facility]) cholesterol risk ratio <5 Cholesterol R isk Ratio [facility] ([facility]) non-HDL-C 98 mg/dL Non-hdl-c [facility] ([facility]) Cholesterol in LDL [Mass/volume] in Serum or Plasma 63 mg/dL <1 00 LDL Cholesterol [facility] ([facility]) ID Date Data Source [id number] 03/09/2021 08:39:00 AM EDT [facility] ([facility]) Name Value Range Interpretation Code Description Data Sandra rce(s) Supporting Document(s) glucose, fasting 326 mg/dL 70-100 Above high normal Glucose, Fas ting [facility] ([facility]) blood urea nitrogen 15 mg/dL 7-18 Blood Urea Nitro gen [facility] ([facility]) creatinine for GFR 1.04 mg/dL 0.70-1.30 Creatinine for GF R [facility] ([facility]) glomerular filtration rate > 60.0 >56 Glomerula r Filtration Rate [facility] ([facility]) potassium serum 4.3 mEq/L 3.5-5.1 Potassium Serum [facility] ([facility]) sodium level 137 mEq/L 136-145 Sodium Level [facility] ([facility]) anion gap 4 mEq/L 8-16 Below low normal Anion Gap [facility] ( [facility]) chloride level 102 mEq/L 98-107 Chloride Level [facility] ([facility] carbon dioxide level 31 mEq/L 21-32 Carbon Dioxide Level [facility] ([facility]) ALT/SGPT 29 U/L 12-78 ALT/SGPT [facility] ([facility]) AST/SGOT 11 U/L 7-37 AST/SGOT [facility] ([facility]) calcium level 9.3 mg/dL 8.5-10.1 Calcium Level [facility] ( [facility]) alkaline phosphatase 74 U/L 45-117 Alkaline Phosph atase [facility] ([facility]) bilirubin,total 1.1 mg/dL 0.2-1.0 Above high normal Bilirubin,tot al [facility] ([facility]) total protein 7.9 gm/dL 6.4-8.2 Total Protein [facility] ( [facility]) albumin 4.2 gm/dL 3.2-5.2 Albumin [facility] ([facility]) albumin/globulin ratio Albumin/globu jose l Ratio [facility] ([facility]) ID Date Data Source [id number] 03/09/2021 08:39:00 AM EDT [facility] ([facility]) Name Value Range Interpretation Code Description Data Sandra rce(s) Supporting Document(s) white blood count 6.3 10 4.0-10.0 White Blood Count [facility] ([facility]) red blood count 5.76 10 4.30-6.10 Red Blood Count [facility] ([facility]) hemoglobin 18.4 g/dL 13.5-17.5 Above high normal Hemoglobin [facility] ([facility]) mean corpuscular volume 90.1 fL 80.0-96.0 Mean Corpusc ular Volume [facility] ([facility]) hematocrit 51.9 % 42.0-52.0 Hematocrit [facility] ([facility]) red cell distribution width 12.7 % 11.5-14.5 Red Cell Distribution Width [facility] ([facility]) mean corpuscular hemoglobin 31.9 pg 27.0-33.0 Mean Cor puscular Hemoglobin [facility] ([facility]) mean corpuscular HGB conc 35.5 g/dL 32.0-36.5 Mean Corpu scular HGB Conc [facility] ([facility]) neutrophils % 59.4 % 36.0-66.0 Neutrophils % [place] ( [facility]) platelet count, automated 171 10 150-450 Platelet C ount, Automated [facility] ([facility]) mono % 9.4 % 2.0-8.0 Above high normal [place] % [facility] ([facility]) eos % 1.8 % 0.0-3.0 Eos % [facility] ([facility]) lymph % 28.3 % 24.0-44.0 Lymph % [facility] ([facility]) immature granulocyte % 0.6 % 0-3.0 Immature Gran ulocyte % [facility] ([facility]) baso % 0.5 % 0.0-1.0 Baso % [facility] ([facility]) nucleated red blood cell % 0.0 % 0-0 Nucleated Red Blood Cell % [facility] ([facility]) neutrophils # 3.7 10 1.5-8.5 Neutrophils # [facility] ( [facility]) mono # 0.6 10 0.0-0.8 [place] # [facility] ([facility]) lymph # 1.8 10 1.5-5.0 Lymph # [facility] ([facility]) baso # 0.0 10 0.0-0.2 Baso # [facility] ([facility]) eos # 0.1 10 0.0-0.5 Eos # [facility] ([facility]) ID Date Data Source [id number] 03/09/2021 08:39:00 AM EDT [place] ([facility]) Name Value Range Interpretation Code Description Data Sandra rce(s) Supporting Document(s) creatinine, urine 52.7 mg/dL Creatinine, Urine [facility] ([facility]) jesse/creat ratio 66.9 mcg/mg 0.0-30.0 Above high normal Jesse/creat Ra susy [facility] ([facility]) malb urine siemens 35.3 mg/L Malb Urine Siemen s [facility] ([facility]) ID Date Data Source [id number] 03/09/2021 08:39:00 AM EDT [place] ([facility]) Name Value Range Interpretation Code Description Data Sandra rce(s) Supporting Document(s) triglycerides level 176 mg/dL <150 Above high normal Triglycer ides Level [facility] ([facility]) Cholesterol in LDL [Mass/volume] in Serum or Plasma 63 mg/dL <1 00 LDL Cholesterol [facility] ([facility]) cholesterol level 145 mg/dL <200 Cholesterol Level [facility] ([facility]) HDL cholesterol 47 mg/dL >40 HDL Cholesterol ATHE NA ([facility]) non-HDL-C 98 mg/dL Non-hdl-c [facility] ([facility]) cholesterol risk ratio <5 Cholesterol R isk Ratio [facility] ([facility]) ID Date Data Source [id number] 03/09/2021 08:39:00 AM EDT [facility] ([facility]) Name Value Range Interpretation Code Description Data Sandra rce(s) Supporting Document(s) glucose, fasting 326 mg/dL 70-100 Above high normal Glucose, Fas ting [facility] ([facility]) creatinine for GFR 1.04 mg/dL 0.70-1.30 Creatinine for GF R [facility] ([facility]) blood urea nitrogen 15 mg/dL 7-18 Blood Urea Nitro gen [facility] ([facility]) potassium serum 4.3 mEq/L 3.5-5.1 Potassium Serum ATHE NA ([facility]) chloride level 102 mEq/L 98-107 Chloride Level [place] ([facility]) glomerular filtration rate > 60.0 >56 Glomerula r Filtration Rate [facility] ([facility]) sodium level 137 mEq/L 136-145 Sodium Level [facility] ([facility]) anion gap 4 mEq/L 8-16 Below low normal Anion Gap [facility] ( [facility]) calcium level 9.3 mg/dL 8.5-10.1 Calcium Level [facility] ( [facility]) carbon dioxide level 31 mEq/L 21-32 Carbon Dioxide Level [facility] ([facility]) ALT/SGPT 29 U/L 12-78 ALT/SGPT [facility] ([facility]) AST/SGOT 11 U/L 7-37 AST/SGOT [facility] ([facility]) alkaline phosphatase 74 U/L 45-117 Alkaline Phosph atase [facility] ([facility]) bilirubin,total 1.1 mg/dL 0.2-1.0 Above high normal Bilirubin,tot al V[facility]ES[facility] ([facility]) albumin 4.2 gm/dL 3.2-5.2 Albumin V[facility] ([facility]) albumin/globulin ratio Albumin/globu jose l Ratio V[facility]ES[facility] ([facility]) total protein 7.9 gm/dL 6.4-8.2 Total Protein [facility] ( [facility]) ID Date Data Source [id number] 03/09/2021 08:39:00 AM EDT [place] ([facility]) Name Value Range Interpretation Code Description Data Sandra rce(s) Supporting Document(s) white blood count 6.3 10 4.0-10.0 White Blood Count [facility] ([facility]) hemoglobin 18.4 g/dL 13.5-17.5 Above high normal Hemoglobin [facility] ([facility]) red blood count 5.76 10 4.30-6.10 Red Blood Count ATHE NA ([facility]) hematocrit 51.9 % 42.0-52.0 Hematocrit [facility] ([facility]) mean corpuscular volume 90.1 fL 80.0-96.0 Mean Corpusc ular Volume V[facility]ESSA ([facility]) mean corpuscular hemoglobin 31.9 pg 27.0-33.0 Mean Cor puscular Hemoglobin V[facility] ([facility]) mean corpuscular HGB conc 35.5 g/dL 32.0-36.5 Mean Corpu scular HGB Conc [facility] ([facility]) red cell distribution width 12.7 % 11.5-14.5 Red Cell Distribution Width [facility] ([facility]) platelet count, automated 171 10 150-450 Platelet C ount, Automated [facility] ([facility]) neutrophils % 59.4 % 36.0-66.0 Neutrophils % [facility] ( [facility]) mono % 9.4 % 2.0-8.0 Above high normal [place] % [facility] ([facility]) lymph % 28.3 % 24.0-44.0 Lymph % [facility] ([facility]) eos % 1.8 % 0.0-3.0 Eos % [facility] ([facility]) baso % 0.5 % 0.0-1.0 Baso % [facility] ([facility]) immature granulocyte % 0.6 % 0-3.0 Immature Gran ulocyte % [facility] ([facility]) nucleated red blood cell % 0.0 % 0-0 Nucleated Red Blood Cell % [facility] ([facility]) eos # 0.1 10 0.0-0.5 Eos # [facility] ([facility]) mono # 0.6 10 0.0-0.8 [place] # [facility] ([facility]) lymph # 1.8 10 1.5-5.0 Lymph # [facility] ([facility]) neutrophils # 3.7 10 1.5-8.5 Neutrophils # [facility] ( [facility]) baso # 0.0 10 0.0-0.2 Baso # [facility] ([facility]) ID Date Data Source [id number] 03/09/2021 08:39:00 AM EDT [facility] ([facility]) Name Value Range Interpretation Code Description Data Sandra rce(s) Supporting Document(s) malb urine siemens 35.3 mg/L Malb Urine Siemen s [facility] ([facility]) creatinine, urine 52.7 mg/dL Creatinine, Urine [facility] ([facility]) jesse/creat ratio 66.9 mcg/mg 0.0-30.0 Above high normal Jesse/creat Ra susy [facility] ([facility]) ID Date Data Source [id number] 03/09/2021 08:39:00 AM EDT [place] ([facility]) Name Value Range Interpretation Code Description Data Sandra rce(s) Supporting Document(s) Cholesterol in LDL [Mass/volume] in Serum or Plasma 63 mg/dL <1 00 LDL Cholesterol [facility] ([facility]) HDL cholesterol 47 mg/dL >40 HDL Cholesterol ATHE NA ([facility]) triglycerides level 176 mg/dL <150 Above high normal Triglycer ides Level V[facility] ([facility]) cholesterol level 145 mg/dL <200 Cholesterol Level V[facility] ([facility]) cholesterol risk ratio <5 Cholesterol R isk Ratio [facility] ([facility]) non-HDL-C 98 mg/dL Non-hdl-c [facility] ([facility]) ID Date Data Source [id number] 03/09/2021 08:39:00 AM EDT [place] ([facility]) Name Value Range Interpretation Code Description Data Sandra rce(s) Supporting Document(s) glomerular filtration rate > 60.0 >56 Glomerula r Filtration Rate [facility] ([facility]) glucose, fasting 326 mg/dL 70-100 Above high normal Glucose, Fas ting [facility] ([facility]) blood urea nitrogen 15 mg/dL 7-18 Blood Urea Nitro gen AVNESSA ([facility]) creatinine for GFR 1.04 mg/dL 0.70-1.30 Creatinine for GF R [facility] ([facility]) potassium serum 4.3 mEq/L 3.5-5.1 Potassium Serum ATH NA ([facility]) sodium level 137 mEq/L 136-145 Sodium Level [facility] ([facility]) chloride level 102 mEq/L 98-107 Chloride Level [place] ([facility]) carbon dioxide level 31 mEq/L 21-32 Carbon Dioxide Level [facility] ([facility]) AST/SGOT 11 U/L 7-37 AST/SGOT [place] ([facility]) anion gap 4 mEq/L 8-16 Below low normal Anion Gap [place] ( [facility]) calcium level 9.3 mg/dL 8.5-10.1 Calcium Level [facility] ( [facility]) alkaline phosphatase 74 U/L 45-117 Alkaline Phosph atase [facility] ([facility]) ALT/SGPT 29 U/L 12-78 ALT/SGPT [place] ([facility]) bilirubin,total 1.1 mg/dL 0.2-1.0 Above high normal Bilirubin,tot al [facility] ([facility]) total protein 7.9 gm/dL 6.4-8.2 Total Protein [place] ( [facility]) albumin 4.2 gm/dL 3.2-5.2 Albumin [facility] ([facility]) albumin/globulin ratio Albumin/globu jose l Ratio [place] ([facility]) ID Date Data Source [id number] 03/09/2021 08:39:00 AM EDT [place] ([facility]) Name Value Range Interpretation Code Description Data Sandra rce(s) Supporting Document(s) red blood count 5.76 10 4.30-6.10 Red Blood Count ATHE NA ([facility]) white blood count 6.3 10 4.0-10.0 White Blood Count [facility] ([facility]) hemoglobin 18.4 g/dL 13.5-17.5 Above high normal Hemoglobin [facility] ([facility]) mean corpuscular volume 90.1 fL 80.0-96.0 Mean Corpusc ular Volume [facility] ([facility]) hematocrit 51.9 % 42.0-52.0 Hematocrit [facility] ([facility]) mean corpuscular hemoglobin 31.9 pg 27.0-33.0 Mean Cor puscular Hemoglobin [facility] ([facility]) mean corpuscular HGB conc 35.5 g/dL 32.0-36.5 Mean Corpu scular HGB Conc [facility] ([facility]) red cell distribution width 12.7 % 11.5-14.5 Red Cell Distribution Width [facility] ([facility]) lymph % 28.3 % 24.0-44.0 Lymph % [facility] ([facility]) mono % 9.4 % 2.0-8.0 Above high normal [place] % [facility] ([facility]) platelet count, automated 171 10 150-450 Platelet C ount, Automated [facility] ([facility]) neutrophils % 59.4 % 36.0-66.0 Neutrophils % [place] ( [facility]) immature granulocyte % 0.6 % 0-3.0 Immature Gran ulocyte % [facility] ([facility]) baso % 0.5 % 0.0-1.0 Baso % [facility] ([facility]) eos % 1.8 % 0.0-3.0 Eos % [facility] ([facility]) lymph # 1.8 10 1.5-5.0 Lymph # [facility] ([facility]) mono # 0.6 10 0.0-0.8 [place] # [facility] ([facility]) nucleated red blood cell % 0.0 % 0-0 Nucleated Red Blood Cell % [facility] ([facility]) neutrophils # 3.7 10 1.5-8.5 Neutrophils # [facility] ( [facility]) eos # 0.1 10 0.0-0.5 Eos # [facility] ([facility]) baso # 0.0 10 0.0-0.2 Baso # [facility] ([facility]) ID Date Data Source [id number] 03/09/2021 08:39:00 AM EDT [facility] ([facility]) Name Value Range Interpretation Code Description Data Sandra rce(s) Supporting Document(s) creatinine, urine 52.7 mg/dL Creatinine, Urine [facility] ([facility]) malb urine siemens 35.3 mg/L Malb Urine Siemen s [facility] ([facility]) jesse/creat ratio 66.9 mcg/mg 0.0-30.0 Above high normal Jesse/creat Ra susy [facility] ([facility]) ID Date Data Source [id number] 03/09/2021 08:39:00 AM EDT [place] ([facility]) Name Value Range Interpretation Code Description Data Sandra rce(s) Supporting Document(s) cholesterol level 145 mg/dL <200 Cholesterol Level [facility] ([facility]) HDL cholesterol 47 mg/dL >40 HDL Cholesterol ATHE ([facility]) triglycerides level 176 mg/dL <150 Above high normal Triglycer ides Level [facility] ([facility]) non-HDL-C 98 mg/dL Non-hdl-c [facility] ([facility]) cholesterol risk ratio <5 Cholesterol R isk Ratio [facility] ([facility]) Cholesterol in LDL [Mass/volume] in Serum or Plasma 63 mg/dL <1 00 LDL Cholesterol [facility] ([facility]) ID Date Data Source [id number] 03/09/2021 08:39:00 AM EDT [place] ([facility]) Name Value Range Interpretation Code Description Data Sandra rce(s) Supporting Document(s) blood urea nitrogen 15 mg/dL 7-18 Blood Urea Nitro gen [facility] ([facility]) glomerular filtration rate > 60.0 >56 Glomerula r Filtration Rate [facility] ([facility]) glucose, fasting 326 mg/dL 70-100 Above high normal Glucose, Fas ting [facility] ([facility]) creatinine for GFR 1.04 mg/dL 0.70-1.30 Creatinine for GF R [facility] ([facility]) sodium level 137 mEq/L 136-145 Sodium Level [facility] ([facility]) potassium serum 4.3 mEq/L 3.5-5.1 Potassium Serum ATHE NA ([facility]) chloride level 102 mEq/L 98-107 Chloride Level [facility] ([facility]) carbon dioxide level 31 mEq/L 21-32 Carbon Dioxide Level [place] ([facility]) calcium level 9.3 mg/dL 8.5-10.1 Calcium Level [facility] ( [facility]) AST/SGOT 11 U/L 7-37 AST/SGOT [place] ([facility]) ALT/SGPT 29 U/L 12-78 ALT/SGPT [facility] ([facility]) anion gap 4 mEq/L 8-16 Below low normal Anion Gap [facility] ( [facility]) total protein 7.9 gm/dL 6.4-8.2 Total Protein [facility] ( [facility]) albumin 4.2 gm/dL 3.2-5.2 Albumin [facility] ([facility]) alkaline phosphatase 74 U/L 45-117 Alkaline Phosph atase [facility] ([facility]) bilirubin,total 1.1 mg/dL 0.2-1.0 Above high normal Bilirubin,tot al [facility] ([facility]) albumin/globulin ratio Albumin/globu jose l Ratio [facility] ([facility]) ID Date Data Source [id number] 03/09/2021 08:39:00 AM EDT [place] ([facility]) Name Value Range Interpretation Code Description Data Sandra rce(s) Supporting Document(s) white blood count 6.3 10 4.0-10.0 White Blood Count [facility] ([facility]) hemoglobin 18.4 g/dL 13.5-17.5 Above high normal Hemoglobin [facility] ([facility]) red blood count 5.76 10 4.30-6.10 Red Blood Count ATHE NA ([facility]) hematocrit 51.9 % 42.0-52.0 Hematocrit [facility] ([facility]) mean corpuscular hemoglobin 31.9 pg 27.0-33.0 Mean Cor puscular Hemoglobin [facility] ([facility]) mean corpuscular HGB conc 35.5 g/dL 32.0-36.5 Mean Corpu scular HGB Conc [facility] ([facility]) mean corpuscular volume 90.1 fL 80.0-96.0 Mean Corpusc ular Volume [facility] ([facility]) red cell distribution width 12.7 % 11.5-14.5 Red Cell Distribution Width [facility] ([facility]) platelet count, automated 171 10 150-450 Platelet C ount, Automated [facility] ([facility]) neutrophils % 59.4 % 36.0-66.0 Neutrophils % [facility] ( [facility]) baso % 0.5 % 0.0-1.0 Baso % [facility] ([facility]) lymph % 28.3 % 24.0-44.0 Lymph % [facility] ([facility]) eos % 1.8 % 0.0-3.0 Eos % [facility] ([facility]) mono % 9.4 % 2.0-8.0 Above high normal [place] % [facility] ([facility]) neutrophils # 3.7 10 1.5-8.5 Neutrophils # [place] ( [facility]) nucleated red blood cell % 0.0 % 0-0 Nucleated Red Blood Cell % [facility] ([facility]) immature granulocyte % 0.6 % 0-3.0 Immature Gran ulocyte % [facility] ([facility]) lymph # 1.8 10 1.5-5.0 Lymph # [facility] ([facility]) eos # 0.1 10 0.0-0.5 Eos # [facility] ([facility]) mono # 0.6 10 0.0-0.8 [place] # [facility] ([facility]) baso # 0.0 10 0.0-0.2 Baso # [facility] ([facility]) ID Date Data Source [id number] 03/09/2021 08:39:00 AM EDT [place] ([facility]) Name Value Range Interpretation Code Description Data Sandra rce(s) Supporting Document(s) malb urine siemens 35.3 mg/L Malb Urine Siemen s [facility] ([facility]) creatinine, urine 52.7 mg/dL Creatinine, Urine [facility] ([facility]) jesse/creat ratio 66.9 mcg/mg 0.0-30.0 Above high normal Jesse/creat Ra susy [facility] ([facility]) ID Date Data Source [id number] 03/09/2021 08:39:00 AM EDT [place] ([facility]) Name Value Range Interpretation Code Description Data Sandra rce(s) Supporting Document(s) cholesterol level 145 mg/dL <200 Cholesterol Level [facility] ([facility]) triglycerides level 176 mg/dL <150 Above high normal Triglycer ides Level [facility] ([facility]) HDL cholesterol 47 mg/dL >40 HDL Cholesterol ATHE ([facility]) Cholesterol in LDL [Mass/volume] in Serum or Plasma 63 mg/dL <1 00 LDL Cholesterol [facility] ([facility]) cholesterol risk ratio <5 Cholesterol R isk Ratio [facility] ([facility]) non-HDL-C 98 mg/dL Non-hdl-c [facility] ([facility]) ID Date Data Source [id number] 03/09/2021 08:39:00 AM EDT [place] ([facility]) Name Value Range Interpretation Code Description Data Sandra rce(s) Supporting Document(s) glucose, fasting 326 mg/dL 70-100 Above high normal Glucose, Fas ting [facility] ([facility]) blood urea nitrogen 15 mg/dL 7-18 Blood Urea Nitro gen [facility] ([facility]) creatinine for GFR 1.04 mg/dL 0.70-1.30 Creatinine for GF R [facility] ([facility]) potassium serum 4.3 mEq/L 3.5-5.1 Potassium Serum ATHE NA ([facility]) glomerular filtration rate > 60.0 >56 Glomerula r Filtration Rate [facility] ([facility]) chloride level 102 mEq/L 98-107 Chloride Level [facility] ([facility]) sodium level 137 mEq/L 136-145 Sodium Level [facility] ([facility]) calcium level 9.3 mg/dL 8.5-10.1 Calcium Level [facility] ( [facility]) carbon dioxide level 31 mEq/L 21-32 Carbon Dioxide Level [facility] ([facility]) anion gap 4 mEq/L 8-16 Below low normal Anion Gap [facility] ( [facility]) alkaline phosphatase 74 U/L 45-117 Alkaline Phosph atase [facility] ([facility]) bilirubin,total 1.1 mg/dL 0.2-1.0 Above high normal Bilirubin,tot al [facility] ([facility]) AST/SGOT 11 U/L 7-37 AST/SGOT [place] ([facility]) ALT/SGPT 29 U/L 12-78 ALT/SGPT [facility] ([facility]) albumin 4.2 gm/dL 3.2-5.2 Albumin [facility] ([facility]) total protein 7.9 gm/dL 6.4-8.2 Total Protein [facility] ( [facility]) albumin/globulin ratio Albumin/globu jose l Ratio [facility] ([facility]) ID Date Data Source [id number] 03/09/2021 08:39:00 AM EDT [place] ([facility]) Name Value Range Interpretation Code Description Data Sandra rce(s) Supporting Document(s) white blood count 6.3 10 4.0-10.0 White Blood Count [facility] ([facility]) red blood count 5.76 10 4.30-6.10 Red Blood Count AT[place] ([facility]) hemoglobin 18.4 g/dL 13.5-17.5 Above high normal Hemoglobin [facility] ([facility]) mean corpuscular HGB conc 35.5 g/dL 32.0-36.5 Mean Corpu scular HGB Conc [facility] ([facility]) hematocrit 51.9 % 42.0-52.0 Hematocrit [facility] ([facility]) mean corpuscular hemoglobin 31.9 pg 27.0-33.0 Mean Cor puscular Hemoglobin [facility] ([facility]) mean corpuscular volume 90.1 fL 80.0-96.0 Mean Corpusc ular Volume [facility] ([facility]) platelet count, automated 171 10 150-450 Platelet C ount, Automated [facility] ([facility]) red cell distribution width 12.7 % 11.5-14.5 Red Cell Distribution Width [facility] ([facility]) neutrophils % 59.4 % 36.0-66.0 Neutrophils % [facility] ( [facility]) mono % 9.4 % 2.0-8.0 Above high normal [place] % [facility] ([facility]) lymph % 28.3 % 24.0-44.0 Lymph % [facility] ([facility]) eos % 1.8 % 0.0-3.0 Eos % [facility] ([facility]) immature granulocyte % 0.6 % 0-3.0 Immature Gran ulocyte % [facility] ([facility]) baso % 0.5 % 0.0-1.0 Baso % [facility] ([facility]) mono # 0.6 10 0.0-0.8 [place] # [facility] ([facility]) lymph # 1.8 10 1.5-5.0 Lymph # [facility] ([facility]) nucleated red blood cell % 0.0 % 0-0 Nucleated Red Blood Cell % [facility] ([facility]) neutrophils # 3.7 10 1.5-8.5 Neutrophils # [facility] ( [facility]) baso # 0.0 10 0.0-0.2 Baso # [facility] ([facility]) eos # 0.1 10 0.0-0.5 Eos # [facility] ([facility]) ID Date Data Source [id number] 03/09/2021 08:39:00 AM EDT [place] ([facility]) Name Value Range Interpretation Code Description Data Sandra rce(s) Supporting Document(s) creatinine, urine 52.7 mg/dL Creatinine, Urine [facility] ([facility]) jesse/creat ratio 66.9 mcg/mg 0.0-30.0 Above high normal Jesse/creat Ra susy [facility] ([facility]) malb urine siemens 35.3 mg/L Malb Urine Siemen s [facility] ([facility]) ID Date Data Source [id number] 03/09/2021 08:39:00 AM EDT [place] ([facility]) Name Value Range Interpretation Code Description Data Sandra rce(s) Supporting Document(s) cholesterol level 145 mg/dL <200 Cholesterol Level [facility] ([facility]) triglycerides level 176 mg/dL <150 Above high normal Triglycer ides Level [facility] ([facility]) Cholesterol in LDL [Mass/volume] in Serum or Plasma 63 mg/dL <1 00 LDL Cholesterol [facility] ([facility]) non-HDL-C 98 mg/dL Non-hdl-c [facility] ([facility]) HDL cholesterol 47 mg/dL >40 HDL Cholesterol ATHE NA ([facility]) cholesterol risk ratio <5 Cholesterol R isk Ratio [facility] ([facility]) ID Date Data Source [id number] 03/09/2021 08:39:00 AM EDT [place] ([facility]) Name Value Range Interpretation Code Description Data Sandra rce(s) Supporting Document(s) creatinine for GFR 1.04 mg/dL 0.70-1.30 Creatinine for GF R [facility] ([facility]) glomerular filtration rate > 60.0 >56 Glomerula r Filtration Rate [facility] ([facility]) glucose, fasting 326 mg/dL 70-100 Above high normal Glucose, Fas ting [facility] ([facility]) blood urea nitrogen 15 mg/dL 7-18 Blood Urea Nitro gen [facility] ([facility]) potassium serum 4.3 mEq/L 3.5-5.1 Potassium Serum ATHE NA ([facility]) sodium level 137 mEq/L 136-145 Sodium Level [facility] ([facility]) chloride level 102 mEq/L 98-107 Chloride Level [facility] ([facility]) anion gap 4 mEq/L 8-16 Below low normal Anion Gap [place] ( [facility]) calcium level 9.3 mg/dL 8.5-10.1 Calcium Level [place] ( [facility]) carbon dioxide level 31 mEq/L 21-32 Carbon Dioxide Level [place] ([facility]) bilirubin,total 1.1 mg/dL 0.2-1.0 Above high normal Bilirubin,tot al [facility] ([facility]) AST/SGOT 11 U/L 7-37 AST/SGOT [place] ([facility]) alkaline phosphatase 74 U/L 45-117 Alkaline Phosph atase [facility] ([facility]) ALT/SGPT 29 U/L 12-78 ALT/SGPT [place] ([facility]) total protein 7.9 gm/dL 6.4-8.2 Total Protein [place] ( [facility]) albumin/globulin ratio Albumin/globu jose l Ratio [facility] ([facility]) albumin 4.2 gm/dL 3.2-5.2 Albumin [facility] ([facility]) ID Date Data Source [id number] 03/09/2021 08:39:00 AM EDT [place] ([facility]) Name Value Range Interpretation Code Description Data Sandra rce(s) Supporting Document(s) white blood count 6.3 10 4.0-10.0 White Blood Count [place] ([facility]) red blood count 5.76 10 4.30-6.10 Red Blood Count ATHE NA ([facility]) hemoglobin 18.4 g/dL 13.5-17.5 Above high normal Hemoglobin [facility] ([facility]) hematocrit 51.9 % 42.0-52.0 Hematocrit [facility] ([facility]) mean corpuscular HGB conc 35.5 g/dL 32.0-36.5 Mean Corpu scular HGB Conc [facility] ([facility]) mean corpuscular hemoglobin 31.9 pg 27.0-33.0 Mean Cor puscular Hemoglobin [facility] ([facility]) mean corpuscular volume 90.1 fL 80.0-96.0 Mean Corpusc ular Volume [facility] ([facility]) red cell distribution width 12.7 % 11.5-14.5 Red Cell Distribution Width [facility] ([facility]) platelet count, automated 171 10 150-450 Platelet C ount, Automated [place] ([facility]) neutrophils % 59.4 % 36.0-66.0 Neutrophils % [place] ( [facility]) mono % 9.4 % 2.0-8.0 Above high normal [place] % [place] ([facility]) lymph % 28.3 % 24.0-44.0 Lymph % [place] ([facility]) eos % 1.8 % 0.0-3.0 Eos % [place] ([facility]) baso % 0.5 % 0.0-1.0 Baso % [place] [facility] [facility] immature granulocyte % 0.6 % 0-3.0 Immature Gran ulocyte % [place] ([facility]) lymph # 1.8 10 1.5-5.0 Lymph # [place] ([facility]) mono # 0.6 10 0.0-0.8 Mcd[place]ough # [place] ([facility]) neutrophils # 3.7 10 1.5-8.5 Neutrophils # [place] ( [facility]) nucleated red blood cell % 0.0 % 0-0 Nucleated Red Blood Cell % [place] ([facility]) baso # 0.0 10 0.0-0.2 Baso # [place] ([facility]) eos # 0.1 10 0.0-0.5 Eos # [place] ([facility]) ID Date Data Source [id number] 02/15/2021 08:58:00 AM EDT [facility]) Name Value Range Interpretation Code Description Data Sandra rce(s) Supporting Document(s) sars-cov-2 negative negative Sars-cov-2 [place] ([facility]) ID Date Data Source [id number] 02/15/2021 08:58:00 AM EDT [place] ([facility]) Name Value Range Interpretation Code Description Data Sandra rce(s) Supporting Document(s) sars-cov-2 negative negative Sars-cov-2 [place] ([facility]) ID Date Data Source [id number] 02/15/2021 08:58:00 AM EDT [facility]) Name Value Range Interpretation Code Description Data Sandra rce(s) Supporting Document(s) sars-cov-2 negative negative Sars-cov-2 [facility]) ID Date Data Source [id number] 02/15/2021 08:58:00 AM EDT [facility]) Name Value Range Interpretation Code Description Data Sandra rce(s) Supporting Document(s) sars-cov-2 negative negative Sars-cov-2 [place] ([facility]) ID Date Data Source [id number] 02/15/2021 08:58:00 AM EDT [facility]) Name Value Range Interpretation Code Description Data Sandra rce(s) Supporting Document(s) sars-cov-2 negative negative Sars-cov-2 [facility]) ID Date Data Source [id number] 02/15/2021 08:58:00 AM EDT [facility]) Name Value Range Interpretation Code Description Data Sandra rce(s) Supporting Document(s) sars-cov-2 negative negative Sars-cov-2 [facility]) ID Date Data Source [id number] 02/15/2021 08:58:00 AM EDT [facility]) Name Value Range Interpretation Code Description Data Sandra rce(s) Supporting Document(s) sars-cov-2 negative negative Sars-cov-2 [place] ([facility]) ID Date Data Source [id number] 02/15/2021 08:58:00 AM EDT [place] ([facility]) Name Value Range Interpretation Code Description Data Sandra rce(s) Supporting Document(s) sars-cov-2 negative negative Sars-cov-2 [facility]) ID Date Data Source [id number] 02/15/2021 08:58:00 AM EDT [facility]) Name Value Range Interpretation Code Description Data Sandra rce(s) Supporting Document(s) sars-cov-2 negative negative Sars-cov-2 [place] ([facility]) ID Date Data Source [id number] 02/15/2021 08:56:00 AM EDT [facility] Name Value Range Interpretation Code Description Data Sandra rce(s) Supporting Document(s) SARS coronavirus 2 RdRp gene [Presence] in Respiratory specimen by ABHINAV with probe detection Not detected [facility] This lab was ordered by [facility] and reported by [facility]. ID Date Data Source [id number] 09/28/2020 12:00:00 AM EST [place] ([facility]) Name Value Range Interpretation Code Description Data Sandra rce(s) Supporting Document(s) Hemoglobin A1c/Hemoglobin.total in Blood 11.4 % Above high normal Hba1C [facility]) ID Date Data Source [id number] 09/28/2020 12:00:00 AM EST [facility]) Name Value Range Interpretation Code Description Data Sandra rce(s) Supporting Document(s) Hemoglobin A1c/Hemoglobin.total in Blood 11.4 % Above high normal Hba1C [place] ([facility]) ID Date Data Source [id number] 09/28/2020 12:00:00 AM EST [place] ([facility]) Name Value Range Interpretation Code Description Data Sandra rce(s) Supporting Document(s) Hemoglobin A1c/Hemoglobin.total in Blood 11.4 % Above high normal Hba1C [place] ([facility]) ID Date Data Source [id number] 09/28/2020 12:00:00 AM EST [facility]) Name Value Range Interpretation Code Description Data Sandra rce(s) Supporting Document(s) Hemoglobin A1c/Hemoglobin.total in Blood 11.4 % Above high normal Hba1C [place] ([facility]) ID Date Data Source [id number] 09/28/2020 12:00:00 AM EST [facility]) Name Value Range Interpretation Code Description Data Sandra rce(s) Supporting Document(s) Hemoglobin A1c/Hemoglobin.total in Blood 11.4 % Above high normal Hba1C [facility]) ID Date Data Source [id number] 09/28/2020 12:00:00 AM EST [facility]) Name Value Range Interpretation Code Description Data Sandra rce(s) Supporting Document(s) Hemoglobin A1c/Hemoglobin.total in Blood 11.4 % Above high normal Hba1C [facility]) ID Date Data Source [id number] 09/28/2020 12:00:00 AM EST [facility]) Name Value Range Interpretation Code Description Data Sandra rce(s) Supporting Document(s) Hemoglobin A1c/Hemoglobin.total in Blood 11.4 % Above high normal Hba1C [facility]) ID Date Data Source [id number] 09/28/2020 12:00:00 AM EST [place] ([facility]) Name Value Range Interpretation Code Description Data Sandra rce(s) Supporting Document(s) Hemoglobin A1c/Hemoglobin.total in Blood 11.4 % Above high normal Hba1C [facility]) ID Date Data Source [id number] 09/28/2020 12:00:00 AM EST [place] ([facility]) Name Value Range Interpretation Code Description Data Sandra rce(s) Supporting Document(s) Hemoglobin A1c/Hemoglobin.total in Blood 11.4 % Above high normal Hba1C [place] ([facility]) ID Date Data Source [id number] 09/28/2020 12[facility]00[facility]00 [facility] Name Value Range Interpretation Code Description Data Sandra rce(s) Supporting Document(s) Hemoglobin A1c/Hemoglobin.total in Blood 11.4 % Above high normal Hba1C [place] ([facility]) Procedure Social History Code Duration Value Status Description Data Source(s ) Smoking 06/28/2021 12:00:00 AM EDT Unknown if ever smoked comp leted Unknown if ever smoked [place] ([facility]) Smoking 06/07/2021 12:00:00 AM EDT Unknown if ever smoked comp leted Unknown if ever smoked [place] ([facility]) Vital Signs ID Date Data Source [id number] Name Value Range Interpretation Code Description Data Source(s) Diastolic blood pressure 87 mm[Hg] 87 mm[Hg] [place] ([facility]) Systolic blood pressure 117 mm[Hg] 117 mm[Hg] M [place] ([facility]) Body mass index (BMI) [Ratio] 24.3 kg/m2 24.3 k g/m2 [facility] ([facility]) Body surface area Derived from formula 1.86 m2 1.86 m2 [facility] ([facility]) Heart rate 100 /min 100 /min [facility] ([facility]) Oxygen saturation in Arterial blood by Pulse oximetry 96 % 96 % [facility] ([facility]) Body weight 160.00 [lb_av] 160.00 [lb_av] [place] T ([facility]) Body weight 72.576 kg 72.576 kg [place] ([facility]) Body height 68 [in_i] 68 [in_i] [place] ([facility]) 5'8" Body height 68 [in_i] 68 [in_i] [place] ([facility]) Body mass index (BMI) [Ratio] 24.3 kg/m2 24.3 k g/m2 [place] ([facility]) Systolic blood pressure 127 mm[Hg] 127 mm[Hg] [facility]) Body weight 2560 [oz_av] 2560 [oz_av] [place] ([facility]) Diastolic blood pressure 87 mm[Hg] 87 mm[Hg] [place] ([facility]) Diastolic blood pressure 87 mm[Hg] 87 mm[Hg] [place] ([facility]) Body height 68 [in_i] 68 [in_i] [place] ([facility]) Body mass index (BMI) [Ratio] 24.3 kg/m2 24.3 k g/m2 [place] ([facility]) Systolic blood pressure 127 mm[Hg] 127 mm[Hg] A [place] ([facility]) Body weight 2560 [oz_av] 2560 [oz_av] [place] ([facility]) Body height 68 [in_i] 68 [in_i] [place] ([facility]) Body height 68 [in_i] 68 [in_i] [place] ([facility]) Body height 68 [in_i] 68 [in_i] [place] ([facility]) Body height 68 [in_i] 68 [in_i] [place] ([facility]) Systolic blood pressure 145 mm[Hg] 145 mm[Hg] A [place] ([facility]) Diastolic blood pressure 81 mm[Hg] 81 mm[Hg] [place] ([facility]) Diastolic blood pressure 81 mm[Hg] 81 mm[Hg] [place] ([facility]) Body height 68 [in_i] 68 [in_i] [place] ([facility]) Systolic blood pressure 145 mm[Hg] 145 mm[Hg] A [place] ([facility]) Diastolic blood pressure 81 mm[Hg] 81 mm[Hg] [place] ([facility]) Body height 68 [in_i] 68 [in_i] [place] ([facility]) Systolic blood pressure 145 mm[Hg] 145 mm[Hg] A [place] ([facility]) Diastolic blood pressure 81 mm[Hg] 81 mm[Hg] [place] ([facility]) Body height 68 [in_i] 68 [in_i] [place] ([facility]) Systolic blood pressure 145 mm[Hg] 145 mm[Hg] A [place] ([facility]) Body weight Measured 167.00 lbs Normal (applies to n on-numeric results) 167.00 lbs [facility] ([facility]) Body height 68 [in_i] 68 [in_i] [place] ([facility]) Body height 68 [in_i] 68 [in_i] [place] ([facility]) Body height 68 [in_i] 68 [in_i] [place] ([facility]) Body height 68 [in_i] 68 [in_i] [place] ([facility]) Body height 68 [in_i] 68 [in_i] [place] ([facility]) Body temperature 98.5 [degF] 98.5 [degF] [place] ([facility]) Diastolic blood pressure 79 mm[Hg] 79 mm[Hg] [place] ([facility]) Body height 68 [in_i] 68 [in_i] [place] ([facility]) Body mass index (BMI) [Ratio] 25.8 kg/m2 25.8 k g/m2 [place] ([facility]) Systolic blood pressure 120 mm[Hg] 120 mm[Hg] A [place] ([facility]) Body weight 2720 [oz_av] 2720 [oz_av] [place] ([facility]) Systolic blood pressure 120 mm[Hg] 120 mm[Hg] A [place] ([facility]) Diastolic blood pressure 79 mm[Hg] 79 mm[Hg] [place] ([facility]) Body weight 2720 [oz_av] 2720 [oz_av] [place] ([facility]) Body height 68 [in_i] 68 [in_i] [place] ([facility]) Body mass index (BMI) [Ratio] 25.8 kg/m2 25.8 k g/m2 [place] ([facility]) Diastolic blood pressure 79 mm[Hg] 79 mm[Hg] [place] ([facility]) Body height 68 [in_i] 68 [in_i] [place] ([facility]) Body mass index (BMI) [Ratio] 25.8 kg/m2 25.8 k g/m2 [place] ([facility]) Systolic blood pressure 120 mm[Hg] 120 mm[Hg] [facility]) Body weight 2720 [oz_av] 2720 [oz_av] [place] ([facility]) Diastolic blood pressure 79 mm[Hg] 79 mm[Hg] [place] ([facility]) Body height 68 [in_i] 68 [in_i] [place] ([facility]) Body mass index (BMI) [Ratio] 25.8 kg/m2 25.8 k g/m2 [place] ([facility]) Systolic blood pressure 120 mm[Hg] 120 mm[Hg] A [place] ([facility]) Body weight 2720 [oz_av] 2720 [oz_av] [place] ([facility]) Diastolic blood pressure 79 mm[Hg] 79 mm[Hg] [place] ([facility]) Body height 68 [in_i] 68 [in_i] [place] ([facility]) Body mass index (BMI) [Ratio] 25.8 kg/m2 25.8 k g/m2 [place] ([facility]) Systolic blood pressure 120 mm[Hg] 120 mm[Hg] [facility]) Body weight 2720 [oz_av] 2720 [oz_av] [place] ([facility]) Diastolic blood pressure 79 mm[Hg] 79 mm[Hg] [place] ([facility]) Body height 68 [in_i] 68 [in_i] [place] ([facility]) Body mass index (BMI) [Ratio] 25.8 kg/m2 25.8 k g/m2 [place] ([facility]) Systolic blood pressure 120 mm[Hg] 120 mm[Hg] A [place] ([facility]) Body weight 2720 [oz_av] 2720 [oz_av] [place] ([facility]) Body weight 160.00 [lb_av] 160.00 [lb_av] MEDEN T ([facility] Heart rate 71 /min 71 /min [facility] ([facility] Body mass index (BMI) [Ratio] 24.3 kg/m2 24.3 k g/m2 [facility] ([facility] Systolic blood pressure 124 mm[Hg] 124 mm[Hg] M [place] ([facility] Diastolic blood pressure 76 mm[Hg] 76 mm[Hg] [place] ([facility] Body height 68 [in_i] 68 [in_i] [facility] ([facility] 5'8" Body temperature 97.3 [degF] 97.3 [degF] [facility] ([facility]) Diastolic blood pressure 87 mm[Hg] 87 mm[Hg] [place] ([facility]) Body height 68 [in_i] 68 [in_i] [place] ([facility]) Body mass index (BMI) [Ratio] 25.8 kg/m2 25.8 k g/m2 [place] ([facility]) Systolic blood pressure 132 mm[Hg] 132 mm[Hg] A [place] ([facility]) Body weight 2720 [oz_av] 2720 [oz_av] [place] ([facility]) Diastolic blood pressure 87 mm[Hg] 87 mm[Hg] [place] ([facility]) Body height 68 [in_i] 68 [in_i] [place] ([facility]) Body mass index (BMI) [Ratio] 25.8 kg/m2 25.8 k g/m2 [place] ([facility]) Systolic blood pressure 132 mm[Hg] 132 mm[Hg] [facility]) Body weight 2720 [oz_av] 2720 [oz_av] [place] ([facility]) Diastolic blood pressure 87 mm[Hg] 87 mm[Hg] [place] ([facility]) Body height 68 [in_i] 68 [in_i] [place] ([facility]) Body mass index (BMI) [Ratio] 25.8 kg/m2 25.8 k g/m2 [place] ([facility]) Systolic blood pressure 132 mm[Hg] 132 mm[Hg] A [facility] ([facility]) Body weight 2720 [oz_av] 2720 [oz_av] [place] ([facility]) Diastolic blood pressure 87 mm[Hg] 87 mm[Hg] [place] ([facility]) Body height 68 [in_i] 68 [in_i] [place] ([facility]) Body mass index (BMI) [Ratio] 25.8 kg/m2 25.8 k g/m2 [place] ([facility]) Systolic blood pressure 132 mm[Hg] 132 mm[Hg] [facility]) Body weight 2720 [oz_av] 2720 [oz_av] [place] ([facility]) Diastolic blood pressure 87 mm[Hg] 87 mm[Hg] [place] ([facility]) Body height 68 [in_i] 68 [in_i] [place] ([facility]) Body mass index (BMI) [Ratio] 25.8 kg/m2 25.8 k g/m2 [place] ([facility]) Systolic blood pressure 132 mm[Hg] 132 mm[Hg] A [facility] ([facility]) Body weight 2720 [oz_av] 2720 [oz_av] [place] ([facility]) Diastolic blood pressure 87 mm[Hg] 87 mm[Hg] [place] ([facility]) Body height 68 [in_i] 68 [in_i] [place] ([facility]) Body mass index (BMI) [Ratio] 25.8 kg/m2 25.8 k g/m2 [place] ([facility]) Systolic blood pressure 132 mm[Hg] 132 mm[Hg] A [place] ([facility]) Body weight 2720 [oz_av] 2720 [oz_av] [place] ([facility]) Diastolic blood pressure 87 mm[Hg] 87 mm[Hg] [place] ([facility]) Body height 68 [in_i] 68 [in_i] [place] ([facility]) Body mass index (BMI) [Ratio] 25.8 kg/m2 25.8 k g/m2 [place] ([facility]) Systolic blood pressure 132 mm[Hg] 132 mm[Hg] [facility]) Body weight 2720 [oz_av] 2720 [oz_av] [place] ([facility]) Body height 68 [in_i] 68 [in_i] [place] ([facility]) Body height 68 [in_i] 68 [in_i] [place] ([facility]) Body height 68 [in_i] 68 [in_i] [place] ([facility]) Body height 68 [in_i] 68 [in_i] [place] ([facility]) Body height 68 [in_i] 68 [in_i] [place] ([facility]) Body height 68 [in_i] 68 [in_i] [place] ([facility]) Body height 68 [in_i] 68 [in_i] [place] ([facility]) Body height 68 [in_i] 68 [in_i] [place] ([facility]) Diastolic blood pressure 72 mm[Hg] 72 mm[Hg] [place] ([facility]) Body height 68 [in_i] 68 [in_i] [facility] ([facility]) Body mass index (BMI) [Ratio] 26.2 kg/m2 26.2 k g/m2 [place] ([facility]) Systolic blood pressure 124 mm[Hg] 124 mm[Hg] A [place] ([facility]) Body weight 2754 [oz_av] 2754 [oz_av] [facility] ([facility]) Diastolic blood pressure 72 mm[Hg] 72 mm[Hg] [facility] ([facility]) Body height 68 [in_i] 68 [in_i] [facility] ([facility]) Body mass index (BMI) [Ratio] 26.2 kg/m2 26.2 k g/m2 [place] ([facility]) Systolic blood pressure 124 mm[Hg] 124 mm[Hg] A [facility] ([facility]) Body weight 2754 [oz_av] 2754 [oz_av] [facility] ([facility]) Diastolic blood pressure 72 mm[Hg] 72 mm[Hg] [facility] ([facility]) Diastolic blood pressure 72 mm[Hg] 72 mm[Hg] [facility] ([facility]) Body height 68 [in_i] 68 [in_i] [facility] ([facility]) Body mass index (BMI) [Ratio] 26.2 kg/m2 26.2 k g/m2 [facility] ([facility]) Systolic blood pressure 124 mm[Hg] 124 mm[Hg] A [place] ([facility]) Body weight 2754 [oz_av] 2754 [oz_av] [facility] ([facility]) Body height 68 [in_i] 68 [in_i] [facility] ([facility]) Body mass index (BMI) [Ratio] 26.2 kg/m2 26.2 k g/m2 [facility] ([facility]) Systolic blood pressure 124 mm[Hg] 124 mm[Hg] A [place] ([facility]) Body weight 2754 [oz_av] 2754 [oz_av] [facility] ([facility]) Diastolic blood pressure 72 mm[Hg] 72 mm[Hg] [facility] ([facility]) Body height 68 [in_i] 68 [in_i] [facility] ([facility]) Body mass index (BMI) [Ratio] 26.2 kg/m2 26.2 k g/m2 [facility] ([facility]) Systolic blood pressure 124 mm[Hg] 124 mm[Hg] A [place] ([facility]) Body weight 2754 [oz_av] 2754 [oz_av] [facility] ([facility]) Body weight 2754 [oz_av] 2754 [oz_av] [facility] ([facility]) Diastolic blood pressure 72 mm[Hg] 72 mm[Hg] [facility] ([facility]) Body height 68 [in_i] 68 [in_i] [facility] ([facility]) Body mass index (BMI) [Ratio] 26.2 kg/m2 26.2 k g/m2 [facility] ([facility]) Systolic blood pressure 124 mm[Hg] 124 mm[Hg] [facility]) Diastolic blood pressure 72 mm[Hg] 72 mm[Hg] [facility] ([facility]) Body height 68 [in_i] 68 [in_i] [facility] ([facility]) Body mass index (BMI) [Ratio] 26.2 kg/m2 26.2 k g/m2 [facility] ([facility]) Systolic blood pressure 124 mm[Hg] 124 mm[Hg] A THENA ([facility]) Body weight 2754 [oz_av] 2754 [oz_av] [facility] ([facility]) Diastolic blood pressure 72 mm[Hg] 72 mm[Hg] [facility] ([facility]) Body height 68 [in_i] 68 [in_i] [facility] ([facility]) Body mass index (BMI) [Ratio] 26.2 kg/m2 26.2 k g/m2 [facility] ([facility]) Systolic blood pressure 124 mm[Hg] 124 mm[Hg] A [place] ([facility]) Body weight 2754 [oz_av] 2754 [oz_av] [facility] ([facility]) Diastolic blood pressure 72 mm[Hg] 72 mm[Hg] [facility] ([facility]) Body height 68 [in_i] 68 [in_i] [facility] ([facility]) Body mass index (BMI) [Ratio] 26.2 kg/m2 26.2 k g/m2 [facility] ([facility]) Systolic blood pressure 124 mm[Hg] 124 mm[Hg] A THE[place] ([facility]) Body weight 2754 [oz_av] 2754 [oz_av] [facility] ([facility]) Diastolic blood pressure 72 mm[Hg] 72 mm[Hg] [facility] ([facility]) Body height 68 [in_i] 68 [in_i] [facility] ([facility]) Body mass index (BMI) [Ratio] 26.2 kg/m2 26.2 k g/m2 [facility] ([facility]) Systolic blood pressure 124 mm[Hg] 124 mm[Hg] [facility]) Body weight 2754 [oz_av] 2754 [oz_av] [facility] ([facility]) Diastolic blood pressure 82 mm[Hg] 82 mm[Hg] [facility] ([facility]) Body height 68 [in_i] 68 [in_i] [facility] ([facility]) Body mass index (BMI) [Ratio] 25.8 kg/m2 25.8 k g/m2 [facility] ([facility]) Systolic blood pressure 130 mm[Hg] 130 mm[Hg] [facility]) Body weight 2710 [oz_av] 2710 [oz_av] [facility] ([facility]) Diastolic blood pressure 82 mm[Hg] 82 mm[Hg] [facility] ([facility]) Body height 68 [in_i] 68 [in_i] [facility] ([facility]) Body mass index (BMI) [Ratio] 25.8 kg/m2 25.8 k g/m2 VANESSA ([facility]) Systolic blood pressure 130 mm[Hg] 130 mm[Hg] A THENA ([facility]) Body weight 2710 [oz_av] 2710 [oz_av] VANESSA ([facility]) Diastolic blood pressure 82 mm[Hg] 82 mm[Hg] VANESSA ([facility]) Body height 68 [in_i] 68 [in_i] VANESSA ([facility]) Body mass index (BMI) [Ratio] 25.8 kg/m2 25.8 k g/m2 VANESSA ([facility]) Systolic blood pressure 130 mm[Hg] 130 mm[Hg] A THENA ([facility]) Body weight 2710 [oz_av] 2710 [oz_av] VANESSA ([facility]) Diastolic blood pressure 82 mm[Hg] 82 mm[Hg] VANESSA ([facility]) Body height 68 [in_i] 68 [in_i] VANESSA ([facility]) Body mass index (BMI) [Ratio] 25.8 kg/m2 25.8 k g/m2 VANESSA ([facility]) Systolic blood pressure 130 mm[Hg] 130 mm[Hg] A [facility] ([facility]) Body weight 2710 [oz_av] 2710 [oz_av] VANESSA ([facility]) Diastolic blood pressure 82 mm[Hg] 82 mm[Hg] VANESSA ([facility]) Body height 68 [in_i] 68 [in_i] VANESSA ([facility]) Body mass index (BMI) [Ratio] 25.8 kg/m2 25.8 k g/m2 VANESSA ([facility]) Systolic blood pressure 130 mm[Hg] 130 mm[Hg] [facility] Body weight 2710 [oz_av] 2710 [oz_av] VANESSA ([facility]) Diastolic blood pressure 82 mm[Hg] 82 mm[Hg] VANESSA ([facility]) Body height 68 [in_i] 68 [in_i] VAENSSA ([facility]) Body mass index (BMI) [Ratio] 25.8 kg/m2 25.8 k g/m2 VANESSA ([facility]) Systolic blood pressure 130 mm[Hg] 130 mm[Hg] A THENA ([facility]) Body weight 2710 [oz_av] 2710 [oz_av] VANESSA ([facility]) Diastolic blood pressure 82 mm[Hg] 82 mm[Hg] VANESSA ([facility]) Body height 68 [in_i] 68 [in_i] VANESSA ([facility]) Body mass index (BMI) [Ratio] 25.8 kg/m2 25.8 k g/m2 VANESSA ([facility]) Systolic blood pressure 130 mm[Hg] 130 mm[Hg] A THENA ([facility]) Body weight 2710 [oz_av] 2710 [oz_av] VANESSA ([facility]) Diastolic blood pressure 82 mm[Hg] 82 mm[Hg] VANESSA ([facility]) Body height 68 [in_i] 68 [in_i] VANESSA ([facility]) Body mass index (BMI) [Ratio] 25.8 kg/m2 25.8 k g/m2 VANESSA ([facility]) Systolic blood pressure 130 mm[Hg] 130 mm[Hg] A [facility] ([facility]) Body weight 2710 [oz_av] 2710 [oz_av] VANESSA ([facility]) Diastolic blood pressure 82 mm[Hg] 82 mm[Hg] VANESSA ([facility]) Body height 68 [in_i] 68 [in_i] VANESSA ([facility]) Body mass index (BMI) [Ratio] 25.8 kg/m2 25.8 k g/m2 VANESSA ([facility]) Systolic blood pressure 130 mm[Hg] 130 mm[Hg] A [facility]) Body weight 2710 [oz_av] 2710 [oz_av] VANESSA ([facility]) Diastolic blood pressure 82 mm[Hg] 82 mm[Hg] VANESSA ([facility]) Body height 68 [in_i] 68 [in_i] VANESSA ([facility]) Body mass index (BMI) [Ratio] 25.8 kg/m2 25.8 k g/m2 VANESSA ([facility]) Systolic blood pressure 130 mm[Hg] 130 mm[Hg] A THENA ([facility]) Body weight 2710 [oz_av] 2710 [oz_av] VANESSA ([facility]) Diastolic blood pressure 82 mm[Hg] 82 mm[Hg] VANESSA ([facility]) Body height 68 [in_i] 68 [in_i] VANESSA ([facility]) Body mass index (BMI) [Ratio] 25.8 kg/m2 25.8 k g/m2 VANESSA ([facility]) Systolic blood pressure 130 mm[Hg] 130 mm[Hg] A THENA ([facility]) Body weight 2710 [oz_av] 2710 [oz_av] VANESSA ([facility]) Patient Treatment Plan of Care Planned Activity Planned Date Details Description Data Source (s) Naproxen 500 MG Oral Tablet VANESSA ([facility]) sitagliptin 50 MG Oral Tablet [Januvia] VANESSA ([facility]) sitagliptin 25 MG Oral Tablet [Januvia] VANESSA ([facility]) 3 ML Insulin Lispro 100 UNT/ML Pen Injector [Humalog] VANESSA ([facility]) gabapentin 300 MG Oral Capsule VANESSA ([facility]) Cyclobenzaprine hydrochloride 5 MG Oral Tablet VANESSA ([facility]) Cephalexin 500 MG Oral Capsule VANESSA ([facility]) atorvastatin 20 MG Oral Tablet VANESSA ([facility]) atorvastatin 10 MG Oral Tablet VANESSA ([facility]) Acyclovir 200 MG Oral Capsule VANESSA ([facility]) 0.5 ML dulaglutide 1.5 MG/ML Auto-Injector [Trulicity] VANESSA ([facility]) 1.5 ML Insulin Glargine 300 UNT/ML Pen Injector [Toujeo] [facility]) Suprep Bowel Prep Kit 17.5 gram-3.13 gram-1.6 gram ora l solution MX AND DRK UTD VANESSA ([facility]) Naproxen 500 MG Oral Tablet VANESSA ([facility]) sitagliptin 50 MG Oral Tablet [Januvia] VANESSA ([facility]) sitagliptin 25 MG Oral Tablet [Januvia] VANESSA ([facility]) 3 ML Insulin Lispro 100 UNT/ML Pen Injector [Humalog] VANESSA ([facility]) gabapentin 300 MG Oral Capsule VANESSA ([facility]) Cyclobenzaprine hydrochloride 5 MG Oral Tablet VANESSA ([facility]) Cephalexin 500 MG Oral Capsule VANESSA ([facility]) atorvastatin 20 MG Oral Tablet VANESSA ([facility]) atorvastatin 10 MG Oral Tablet VANESSA ([facility]) Acyclovir 200 MG Oral Capsule VANESSA ([facility]) 0.5 ML dulaglutide 1.5 MG/ML Auto-Injector [Trulicity] VANESSA ([facility]) 1.5 ML Insulin Glargine 300 UNT/ML Pen Injector [Toujeo] VANESSA ([facility]) Suprep Bowel Prep Kit 17.5 gram-3.13 gram-1.6 gram ora l solution MX AND DRK UTD VANESSA ([facility]) Naproxen 500 MG Oral Tablet VANESSA ([facility]) sitagliptin 25 MG Oral Tablet [Januvia] VANESSA ([facility]) 3 ML Insulin Lispro 100 UNT/ML Pen Injector [Humalog] VANESSA ([facility]) gabapentin 300 MG Oral Capsule VANESSA ([facility]) Cyclobenzaprine hydrochloride 5 MG Oral Tablet VANESSA ([facility]) atorvastatin 20 MG Oral Tablet VANESSA ([facility]) 0.5 ML dulaglutide 1.5 MG/ML Auto-Injector [Trulicity] VANESSA ([facility]) 1.5 ML Insulin Glargine 300 UNT/ML Pen Injector [Toujeo] VANESSA ([facility]) Suprep Bowel Prep Kit 17.5 gram-3.13 gram-1.6 gram ora l solution MX AND DRK UTD VANESSA ([facility]) Naproxen 500 MG Oral Tablet VANESSA ([facility]) sitagliptin 25 MG Oral Tablet [Januvia] VANESSA ([facility]) 3 ML Insulin Lispro 100 UNT/ML Pen Injector [Humalog] VANESSA ([facility]) gabapentin 300 MG Oral Capsule VANESSA ([facility]) Cyclobenzaprine hydrochloride 5 MG Oral Tablet VANESSA ([facility]) atorvastatin 20 MG Oral Tablet VANESSA ([facility]) 0.5 ML dulaglutide 1.5 MG/ML Auto-Injector [Trulicity] VANESSA ([facility]) 1.5 ML Insulin Glargine 300 UNT/ML Pen Injector [Toujeo] VANESSA ([facility]) Suprep Bowel Prep Kit 17.5 gram-3.13 gram-1.6 gram ora l solution MX AND DRK UTD VANESSA ([facility]) Naproxen 500 MG Oral Tablet VANESSA ([facility]) sitagliptin 25 MG Oral Tablet [Januvia] VANESSA ([facility]) 3 ML Insulin Lispro 100 UNT/ML Pen Injector [Humalog] VANESSA ([facility]) gabapentin 300 MG Oral Capsule VANESSA ([facility]) Cyclobenzaprine hydrochloride 5 MG Oral Tablet VANESSA ([facility]) atorvastatin 20 MG Oral Tablet VANESSA ([facility]) 0.5 ML dulaglutide 1.5 MG/ML Auto-Injector [Trulicity] VANESSA ([facility]) 1.5 ML Insulin Glargine 300 UNT/ML Pen Injector [Toujeo] VANESSA ([facility]) Suprep Bowel Prep Kit 17.5 gram-3.13 gram-1.6 gram ora l solution MX AND DRK UTD VANESSA ([facility]) Naproxen 500 MG Oral Tablet VANESSA ([facility]) sitagliptin 25 MG Oral Tablet [Januvia] VANESSA ([facility]) 3 ML Insulin Lispro 100 UNT/ML Pen Injector [Humalog] VANESSA ([facility]) gabapentin 300 MG Oral Capsule VANESSA ([facility]) Cyclobenzaprine hydrochloride 5 MG Oral Tablet VANESSA ([facility]) atorvastatin 20 MG Oral Tablet VANESSA ([facility]) 0.5 ML dulaglutide 1.5 MG/ML Auto-Injector [Trulicity] VANESSA ([facility]) 1.5 ML Insulin Glargine 300 UNT/ML Pen Injector [Toujeo] VANESSA ([facility]) Suprep Bowel Prep Kit 17.5 gram-3.13 gram-1.6 gram ora l solution MX AND DRK UTD VANESSA ([facility]) Naproxen 500 MG Oral Tablet VANESSA ([facility]) sitagliptin 25 MG Oral Tablet [Januvia] VANESSA ([facility]) 3 ML Insulin Lispro 100 UNT/ML Pen Injector [Humalog] VANESSA ([facility]) gabapentin 300 MG Oral Capsule VANESSA ([facility]) Cyclobenzaprine hydrochloride 5 MG Oral Tablet VANESSA ([facility]) atorvastatin 20 MG Oral Tablet VANESSA ([facility]) 0.5 ML dulaglutide 1.5 MG/ML Auto-Injector [Trulicity] VANESSA ([facility]) 1.5 ML Insulin Glargine 300 UNT/ML Pen Injector [Toujeo] VANESSA ([facility]) Suprep Bowel Prep Kit 17.5 gram-3.13 gram-1.6 gram ora l solution MX AND DRK UTD VANESSA ([facility]) OneTouch Verio test strips U UTD TO TEST TID VANESSA ([facility]) Naproxen 500 MG Oral Tablet VANESSA ([facility]) sitagliptin 25 MG Oral Tablet [Januvia] VANESSA ([facility]) 3 ML Insulin Lispro 100 UNT/ML Pen Injector [Humalog] VANESSA ([facility]) gabapentin 300 MG Oral Capsule VANESSA ([facility]) Cyclobenzaprine hydrochloride 5 MG Oral Tablet VANESSA ([facility]) atorvastatin 20 MG Oral Tablet VANESSA ([facility]) 0.5 ML dulaglutide 1.5 MG/ML Auto-Injector [Trulicity] VANESSA ([facility]) 1.5 ML Insulin Glargine 300 UNT/ML Pen Injector [Toujeo] VANESSA ([facility]) Suprep Bowel Prep Kit 17.5 gram-3.13 gram-1.6 gram ora l solution MX AND DRK UTD VANESSA ([facility]) OneTouch Verio test strips U UTD TO TEST TID VANESSA ([facility]) Naproxen 500 MG Oral Tablet VANESSA ([facility]) sitagliptin 25 MG Oral Tablet [Januvia] VANESSA ([facility]) 3 ML Insulin Lispro 100 UNT/ML Pen Injector [Humalog] VANESSA ([facility]) gabapentin 300 MG Oral Capsule VANESSA ([facility]) Cyclobenzaprine hydrochloride 5 MG Oral Tablet VANESSA ([facility]) atorvastatin 20 MG Oral Tablet VANESSA ([facility]) 0.5 ML dulaglutide 1.5 MG/ML Auto-Injector [Trulicity] VANESSA ([facility]) 1.5 ML Insulin Glargine 300 UNT/ML Pen Injector [Toujeo] VANESSA ([facility]) Suprep Bowel Prep Kit 17.5 gram-3.13 gram-1.6 gram ora l solution MX AND DRK UTD VANESSA ([facility]) OneTouch Verio test strips U UTD TO TEST TID VANESSA ([facility]) Naproxen 500 MG Oral Tablet VANESSA ([facility]) sitagliptin 25 MG Oral Tablet [Januvia] VANESSA ([facility]) 3 ML Insulin Lispro 100 UNT/ML [facility] gab[facility] MG Oral Capsule VANESSA ([facility]) Cyclobenzaprine hydrochloride 5 MG Oral Tablet VANESSA ([facility]) atorvastatin 20 MG Oral Tablet VANESSA ([facility]) 0.5 ML dulaglutide 1.5 MG/ML Auto-Injector [Trulicity] VANESSA ([facility]) 1.5 ML Insulin Glargine 300 UNT/ML Pen Injector [Toujeo] VANESSA ([facility]) Suprep Bowel Prep Kit 17.5 gram-3.13 gram-1.6 gram ora l solution MX AND DRK UTD VANESSA ([facility]) OneTouch Verio test strips U UTD TO TEST TID VANESSA ([facility]) Naproxen 500 MG Oral Tablet VANESSA ([facility]) 3 ML Insulin Lispro 100 UNT/ML Pen Injector [Humalog] VANESSA ([facility]) Cyclobenzaprine hydrochloride 5 MG Oral Tablet VANESSA ([facility]) atorvastatin 20 MG Oral Tablet VANESSA ([facility]) 0.5 ML dulaglutide 1.5 MG/ML Auto-Injector [Trulicity] VANESSA ([facility]) 1.5 ML Insulin Glargine 300 UNT/ML Pen Injector [Toujeo] VANESSA ([facility]) Suprep Bowel Prep Kit 17.5 gram-3.13 gram-1.6 gram ora l solution MX AND DRK UTD VANESSA ([facility])
[2021-09-10 18:17] VITALS: BP 116/65
== END 2021-09-10 18:20 | disposition home or self-care (01) ==
LOC: M ED 14:19
DX: Z46.6 Encounter for fitting and adjustment of urinary device (principal); N34.2 Other urethritis; R74.8 Abnormal levels of other serum enzymes; E11.9 Type 2 diabetes mellitus without complications; N40.0 Benign prostatic hyperplasia without lower urinary tract symptoms; F31.9 Bipolar disorder, unspecified; F43.10 Post-traumatic stress disorder, unspecified; K21.9 Gastro-esophageal reflux disease without esophagitis; G89.29 Other chronic pain; M54.9 Dorsalgia, unspecified; Z79.899 Other long term (current) drug therapy; Z79.84 Long term (current) use of oral hypoglycemic drugs; Z79.82 Long term (current) use of aspirin

== ENCOUNTER 2021-09-14 13:47 | Emergency (ER) | payer MEDICARE, MEDICAID ==
[~2021-09-14] VITALS: Ht 172.7 cm; Wt 72.7 kg
[2021-09-14 14:22] LABS: BASO % 0.2 % (0.0-1.0); EOS # 0.1 10^3/uL (0.0-0.5); EOS % 0.3 % (0.0-3.0); HEMATOCRIT 41.4 % (42.0-52.0); LYMPH # 1.1 10^3/uL (1.5-5.0); LYMPH % 7.2 % (24.0-44.0); MEAN CORPUSCULAR HEMOGLOBIN 31.6 pg (27.0-33.0); MEAN CORPUSCULAR HGB CONC 36.2 g/dl (32.0-36.5); MEAN CORPUSCULAR VOLUME 87.3 fl (80.0-96.0); MONO % 6.5 % (2.0-8.0); NEUTROPHILS # 12.4 10^3/uL (1.5-8.5); NEUTROPHILS % 85.3 % (36.0-66.0); PLATELET COUNT, AUTOMATED 208 10^3/uL (150-450); RED BLOOD COUNT 4.74 10^6/uL (4.30-6.10); WHITE BLOOD COUNT 14.6 10^3/uL (4.0-10.0)
[2021-09-14] MEDS ORDERED: ONDANSETRON 4MG/2ML VIAL IV ONE (14:45)
[2021-09-14] MEDS ORDERED: NS 1,000 ML IV ONE (14:45)
[2021-09-14 14:51] LABS: ALBUMIN 3.5 GM/DL (3.2-5.2); BILIRUBIN,DIRECT 0.4 MG/DL (0.0-0.2); BILIRUBIN,TOTAL 1.7 MG/DL (0.2-1.0); CALCIUM LEVEL 9.7 MG/DL (8.5-10.1); CREATININE FOR GFR 1.63 MG/DL (0.70-1.30); GLOMERULAR FILTRATION RATE 47.7 (>56); POTASSIUM SERUM 3.5 MEQ/L (3.5-5.1); TOTAL PROTEIN 7.1 GM/DL (6.4-8.2)
--- NOTE | 2021-09-14 15:30 | REP ---
INDICATION: llq pain. COMPARISON: Multiple latest 08/31/2021 a contrast-enhanced exam TECHNIQUE: Standard helical technique without contrast FINDINGS: There is no change in lung bases. Limited evaluation of the liver, spleen, pancreas, adrenal glands, and kidneys show no significant changes from the prior exam. There is bilateral hydronephrosis and hydroureter status quo. Once again, there is gross distention of the urinary bladder status quo. There is prostatomegaly and corpora amylacea status quo. Limited evaluation of the bowel loops shows no evidence of a gross abnormality. There is no evidence of free fluid or free air. Bone window technique throughout the examination shows no significant change in appearance of the osseous structures. IMPRESSION: The exam is limited without contrast. There has been no significant change compared to the prior exam with findings as described above. <Electronically signed by Abelino Strickland > 09/14/21 1529
[2021-09-14] MEDS ORDERED: HumuLIN R (REGULAR) INSULIN (NovoLIN R) **100U/ML** PER UNIT IV ONE (16:15)
[2021-09-14] MEDS ORDERED: LIDOCAINE 2% 5ML JELLY UROJET TOP ONE (16:15)
--- OUTSIDE RECORDS SUMMARY | 2021-09-14 17:26 | CCD ---
Author Author [facility] Organization [facility] Address Unknown Phone Unavailable Care Team Providers Care Traveling Electrician Name Role Phone Suraj Motta MD Unavailable [...] Edson, Eligio MORALES Unavailable Unavailable Sandra Chicas PROBATE JUDGE PROBATE JUDGE Unavailable Unavailable Bartoszewski, Kelsea Darling MS, RPA-C [...] is protected by Article 27-F of the [facility] Public Health law. If you continue you may have access to information: Regarding HIV / AIDS; Provided by facilities licensed or operated by the [facility] Office of Mental Health; or Provided by the [facility] Office for People With Developmental Disabilities. If such information is present, then the following [facility] mandated warning applies: This information has been [...] law may result in a fine or senior living sentence or both. A general authorization for [...] Description Data Source(s) Unknown Male Problem [facility] ([facility]) Encounters Encounter Providers Location Date Indications Data Source(s ) Outpatient Attender: Darling Salguero i MS, RPA-CConsultant: Glory Fischer MD 09/12/2021 09:43:00 AM EDT - 09/12/2021 10:43:00 AM EDT [facility] Patient discharged. Gonzalo Motta MD: [address] [place] [phone], Ph. Attender: Gonzalo Motta MD [facility] Medical 09/08/2021 12:00:00 AM EDT [place] ([facility]) Outpatient Attender: ELISE YAN MDConsultant: Glory castillo MD 09/07/2021 08:07:00 AM EDT - 09/07/2021 08:07:00 AM EDT [facility] Jana Wylie PA-C: [address], [place] [address], Ph. Attender: Jana PERDOMO [facility] Medical 08/25/2021 12:00:00 AM EDT [place] ([facility]) Jana Wylie PA-C: [address], [place] [address], Ph. Attender: Jana EPRDOMO [facility] Medical 08/25/2021 12:00:00 AM EDT [place] ([facility]) Jana Wylie PA-C: [address], [place] [address], Ph. Attender: Jana PERDOMO [facility] Medical 07/05/2021 12:00:00 AM EDT [place] ([facility]) Jana Wylie PA-C: [address], [place] [address], Ph. Attender: Jnaa PERDOMO [facility] Medical 07/05/2021 12:00:00 AM EDT [place] ([facility]) Jnaa Wylie PA-C: [address], [place] [address], Ph. Attender: Jana PERDOMO [facility] Medical 07/05/2021 12:00:00 AM EDT [place] ([facility]) Extended Individual Psychotherapy - 45 min Attender: Taylor Guajardo [facility] 06/28/2021 01:45:00 AM EDT - 06/28/2021 01:45:00 AM EDT [facility] ([facility]) Jana Wylie PA-C: [address], [place] [address], Ph. Attender: Jana PERDOMO [facility] Medical 06/28/2021 12:00:00 AM EDT [place] ([facility]) Jana Wylie PA-C: [address], [place] [address], Ph. Attender: Jana PERDOMO [facility] Medical 06/28/2021 12:00:00 AM EDT [facility] ([facility]) Jana Wylie PA-C: [address], [place] [address], Ph. Attender: Jana PERDOMO [facility] Medical 06/28/2021 12:00:00 AM EDT [place] ([facility]) Jana Wylie PA-C: [address], [facility] [facility] [address], Ph. Attender: Jana PERDOMO [facility] Medical 06/28/2021 12:00:00 AM EDT [facility] ([facility]) Attender: Sallie Guajardo 06/28/2021 12:00:0 0 AM EDT [facility] ([facility]) Outpatient [id number] 06/14/2021 11:48:[address] [facility] Telemed Diagnostic Eval Attender: Souleymane Harp MD [facility] 06/07/2021 08:30:00 AM EDT - 06/07/2021 08:30:00 AM EDT [facility] ([facility]) Attender: Souleymane Harp MD 06/07/2021 12:00:00 AM EDT [facility] ([facility]) Outpatient Attender: Eligio Sandhu MD Main office - [place] 05/10/2021 01:15:00 PM EDT [facility] ([facility]) Gonzalo Motta MD: [address] [place] [address], Ph. Attender: Gonzalo Motta MD [facility] Medical 04/25/2021 12:00:00 AM EDT [facility] ([facility]) Gonzalo Motta MD: [address] [place] [address], Ph. Attender: Gonzalo Motta MD [facility] Medical 04/25/2021 12:00:00 AM EDT [facility] ([facility]) Gonzalo Motta MD: [address] [place] [address], Ph. Attender: Gonzalo Motta MD [facility] Medical 04/25/2021 12:00:00 AM EDT [facility] ([facility]) Gonzalo Motta MD: [address] [place] [address], Ph. Attender: Gonzalo Motta MD [facility] Medical 04/25/2021 12:00:00 AM EDT [facility] ([facility]) Gonzalo Motta MD: [address] [place] [address], Ph. Attender: Gonzalo Motta MD [facility] Medical 04/25/2021 12:00:00 AM EDT [facility] ([facility]) Outpatient Attender: Eligio Sandhu MD Main office - [place] 04/07/2021 03:15:00 PM EDT [facility] ([facility]) Outpatient Attender: ESME STYLES MDConsultant: Glory ann MD 04/06/2021 03:08:00 PM EDT - 04/06/2021 03:08:00 PM EDT [facility] Jana Wylie PA-C: [address], [place] [address], Ph. Attender: Jana PERDOMO [facility] Medical 03/21/2021 12:00:00 AM EDT [facility]) Jana Wylie PA-C: [address], [place] [address], Ph. Attender: Jana PERDOMO [facility] Medical 03/21/2021 12:00:00 AM EDT [facility]) Jana Wylie PA-C: [address], [place] [address], Ph. Attender: Jana PERDOMO [facility] Medical 03/21/2021 12:00:00 AM EDT [facility]) Jana Wylie PA-C: [address], [place] [address], Ph. Attender: Jnaa PERDOMO [facility] Medical 03/21/2021 12:00:00 AM EDT [place] ([facility]) Jana Wylie PA-C: [address], [place] [address], Ph. Attender: Jana PERDOMO [facility] Medical 03/21/2021 12:00:00 AM EDT [facility]) Jana Wylie PA-C: [address], [place] [address], Ph. Attender: Jana PERDOMO [facility] Medical 03/21/2021 12:00:00 AM EDT [facility] ([facility]) Outpatient Attender: ЕКАТЕРИНА WILSON [facility] Office 02/18 08:15:00 AM EDT [facility] ([facility] Outpatient Attender: ESME Caceres nder: ELISE YAN MDConsultant: Glory Fischer MD 03/11/2021 02:01:00 PM EDT - 03/11/2021 02:01:00 PM EDT [facility] Jana Wylie PA-C: [address], [place] [address], Ph. Attender: Jana PERDOMO [facility] Medical 03/10/2021 12:00:00 AM [facility]T [facility] Jana Wylie PA-C: [address], [place] [address], Ph. Attender: Jana PERDOMO [facility] Medical 03/10/2021 12:00:00 AM EDT [place] ([facility]) Jana Wylie PA-C: [address], [place] [address], Ph. Attender: Jana PERDOMO [facility] Medical 03/10/2021 12:00:00 AM EDT [facility] ([facility]) Jana Wylie PA-C: [address], [place] [address], Ph. Attender: Jana PERDOMO [facility] Medical 03/10/2021 12:00:00 AM EDT [facility] ([facility]) Jnaa Wylie PA-C: [address], [place] [address], Ph. Attender: Jana PERDOMO [facility] Medical 03/10/2021 12:00:00 AM EDT [place] ([facility]) Jana Wylie PA-C: [address], [place] [address], Ph. Attender: Jana PERDOMO [facility] Medical 03/10/2021 12:00:00 AM EDT [facility] ([facility]) Jana Wylie PA-C: [address], [place] [address], Ph. Attender: Jana PERDOMO [facility] Medical 03/10/2021 12:00:00 AM EDT [facility] ([facility]) Jana Wylie PA-C: [address], [place] [address], Ph. Attender: Jana PERDOMO [facility] Medical 03/09/2021 12:00:00 AM EDT [place] ([facility]) Jana Wylie PA-C: [address], [place] [address], Ph. Attender: Jana PERDOMO [facility] Medical 03/09/2021 12:00:00 AM EDT [place] ([facility]) Jana Wylie PA-C: [address], [place] [address], Ph. Attender: Jana PERDOMO [facility] Medical 03/09/2021 12:00:00 AM EDT [place] ([facility]) Jana Wylie PA-C: [address], [place] [address], Ph. Attender: Jana PERDOMO [facility] Medical 03/09/2021 12:00:00 AM EDT [facility] ([facility]) Jana Wylie PA-C: [address], [facility] [facility] [place] [address], Ph. Attender: Jana PERDOMO [facility] Medical 03/09/2021 12:00:00 AM EDT [place] ([facility]) Jana Wylie PA-C: [address], [facility] [facility] [address], Ph. Attender: Jana PERDOMO [facility] Medical 03/09/2021 12:00:00 AM EDT [place] ([facility]) Jana Wylie PA-C: [address], [facility] [place] [address], Ph. Attender: Jana PERDOMO [facility] Medical 03/09/2021 12:00:00 AM EDT [place] ([facility]) Jana Wylie PA-C: [address], [facility] [place] [address], Ph. Attender: Jana PERDOMO [facility] Medical 03/09/2021 12:00:00 AM EDT [place] ([facility]) Gonzalo Motta MD: [address], [place] [address], Ph. Attender: Gonzalo Motta MD [facility] Medical 02/21/2021 12:00:00 AM EDT [place] ([facility]) Gonzalo Motta MD: [address], [place] [address], Ph. Attender: Gonzalo Motta MD [facility] Medical 02/21/2021 12:00:00 AM EDT [facility] ([facility]) Gonzalo Motta MD: [address] [place] [address], Ph. Attender: Gonzalo Motta MD [facility] Medical 02/21/2021 12:00:00 AM EDT [facility] ([facility]) Gonzalo Motta MD: [address] [place] [address], Ph. Attender: Gonzalo Motta MD [facility] Medical 02/21/2021 12:00:00 AM EDT [facility] ([facility]) Gonzalo Motta MD: [address] [place] [address], Ph. Attender: Gonzalo Motta MD [facility] Medical 02/21/2021 12:00:00 AM EDT [facility] ([facility]) Gonzalo Motta MD: [address] [place] [address], Ph. Attender: Gonzalo Motta MD [facility] Medical 02/21/2021 12:00:00 AM EDT [facility] ([facility]) Gonzalo Motta MD: [address] [place] [address], Ph. Attender: Gonzalo Motta MD [facility] Medical 02/21/2021 12:00:00 AM EDT [facility] ([facility]) Gonzalo Motta MD: [address] [place] [address], Ph. Attender: Gonzalo Motta MD [facility] Medical 02/21/2021 12:00:00 AM EDT [facility] ([facility]) Gonzalo Motta MD: [address] [place] [address], Ph. Attender: Gonzalo Motta MD [facility] Medical 02/21/2021 12:00:00 AM EDT [place] ([facility]) Jana Wylie PA-C: [address], [place] [address], Ph. Attender: Jana PERDOMO [facility] Medical 02/15/2021 12:00:00 AM EDT [place] ([facility]) Jana Wylie PA-C: [address], [place] [address], Ph. Attender: Jana PERDOMO [facility] Medical 02/15/2021 12:00:00 AM EDT [place] ([facility]) Jana Wylie PA-C: [address], [place] [address], Ph. Attender: Jana PERDOMO [facility] Medical 02/15/2021 12:00:00 AM EDT [place] ([facility]) Jana Wylie PA-C: [address], [place] [address], Ph. Attender: Jana PERDOMO [facility] Medical 02/15/2021 12:00:00 AM EDT [place] ([facility]) Jana Wylie PA-C: [address], [place] [address], Ph. Attender: Jana PERDOMO [facility] Medical 02/15/2021 12:00:00 AM EDT [place] ([facility]) Jana Wylie PA-C: [address], [place] [address], Ph. Attender: Jana PERDOMO [facility] Medical 02/15/2021 12:00:00 AM EDT [place] ([facility]) Jana Wylie PA-C: [address], [place] [address], Ph. Attender: Jana PERDOMO [facility] Medical 02/15/2021 12:00:00 AM EDT [place] ([facility]) Jana Wylie PA-C: [address], [place] [address], Ph. Attender: Jana PERDOMO [facility] Medical 02/15/2021 12:00:00 AM EDT [place] ([facility]) Jana Wylie PA-C: [address], [place] [address], Ph. Attender: Jana PERDOMO [facility] Medical 02/15/2021 12:00:00 AM EDT [place] ([facility]) Jana Wylie PA-C: [address], [place] [address], Ph. Attender: Jana PERDOMO [facility] Medical 02/15/2021 12:00:00 AM EDT [place] ([facility]) Outpatient Attender: MADHURI DHALIWAL 09/30/2020 08:32:01 A M [facility] Jana Wylie PA-C: [address], [place] [address], Ph. Attender: Jana PERDOMO [facility] Medical 09/30/2020 12:00:00 AM EST [facility] ([facility]) Jana Wylie PA-C: [address], [place] [address], Ph. Attender: Jana PERDOMO [facility] Medical 09/30/2020 12:00:00 AM EST [facility] ([facility]) Jana Wylie PA-C: [address], [place] [address], Ph. Attender: Jana PERDOMO [facility] Medical 09/30/2020 12:00:00 AM EST [facility] ([facility]) Jana Wylie PA-C: [address], [place] [address], Ph. Attender: Jana PERDOMO [facility] Medical 09/30/2020 12:00:00 AM EST [facility] ([facility]) Jana Wylie PA-C: [address], [place] [address], Ph. Attender: Jana PERDOMO [facility] Medical 09/30/2020 12:00:00 AM EST [facility] ([facility]) Jana Wylie PA-C: [address], [place] [address], Ph. Attender: Jana PERDOMO [facility] Medical 09/30/2020 12:00:00 AM EST [facility] ([facility]) Jana Wylie PA-C: [address], [place] [address], Ph. Attender: Jana PERDOMO [facility] Medical 09/30/2020 12:00:00 AM EST [facility] ([facility]) Jana Wylie PA-C: [address], [place] [address], Ph. Attender: Jana PERDOMO [facility] Medical 09/30/2020 12:00:00 AM EST [facility]) Jana Wylie PA-C: [address], [place] [address], Ph. Attender: Jana PERDOMO [facility] Medical 09/30/2020 12:00:00 AM EST [facility] Jana Wylie PA-C: [address], [place] [address], Ph. Attender: Jana PERDOMO [facility] Medical 09/30/2020 12:00:00 AM EST [facility]) Jana Wylie PA-C: [address], [facility] [facility] [address], Ph. Attender: Jana PERDOMO [facility] Medical 09/30/2020 12:00:00 AM [facility]) Outpatient Attender: ESME STYLES MDConsultant: Glory ann MD 10/15/2018 01:14:32 PM [facility] 10/15/2018 01:13:[address] [facility] Functional Status Immunizations Vaccine Date Status Description Data Source(s) COVID-19, mRNA, LNP-S, PF, 100 mcg/0.5 mL dose 09/08/2021 08 :59:35 AM EDT completed 10.5 mL [place] ([facility]) COVID-19 VACCINE Moderna 09/08/2021 12:00:00 AM EDT completed [facility] Vaccine Series Complete: NOThis Data was Submitted to [facility] Via [employer]. Tdap 08/25/2021 04:27:00 PM EDT completed 08/25/2021 0.5 mL [place] ([facility]) Medications Medication Brand Name Start Date Product Form Dose Route Admi nistrative Instructions Pharmacy Instructions Status Indications Reaction Description Data Source(s) 24 HR paliperidone 1.5 MG Extended Release Oral Tablet [Inve ga] Invega 06/07/2021 12:00:00 AM EDT 1.5 mg by mouth completed <td ID="MedicationRxNorm_3">728108</td><td ID="MedicationMedication_3">Invega</td><td ID="MedicationRoute_3">by mouth</td><td ID="MedicationRouteConcept_3">O80234</td><td ID="MedicationStartDate_3">06/07/2021</td><td ID="MedicationStopDate_3">07/07/2021</td><td ID="MedicationDosageFrequency_3">at bedtime</td><td ID="MedicationDuration_3">30</td><td ID="MedicationFormulaStrength_3">1.5 mg</td><td ID="MedicationDosageForm_3">tablet extended release 24hr</td><td ID="MedicationDosageFormCode_3"></td><td ID="MedicationDosageDescription_3"></td><td ID="MedicationMedicationId_3">[id number]</td><td ID="MedicationAccount_3">[id number]</td><td ID="MedicationNpid_3">[id number]</td><td ID="MedicationAuthorFirstName_3">Souleymane</td><td ID="MedicationAuthorLastName_3">Harp</td><td ID="MedicationTaxonomyCode_3">[id number]</td><td ID="MedicationTaxonomyDesc_3"> Psychiatry</td><td ID="MedicationPhoneNumber_3">[phone]</td> [facility] ([facility]) 24 HR paliperidone 1.5 MG Extended Release Oral Tablet [Inve ga] Invega 06/07/2021 12:00:00 AM EDT 1.5 mg by mouth completed <td ID="MedicationRxNorm_1">486997</td><td ID="MedicationMedication_1">Invega</td><td ID="MedicationRoute_1">by mouth</td><td ID="MedicationRouteConcept_1">B30268</td><td ID="MedicationStartDate_1">06/07/2021</td><td ID="MedicationStopDate_1">07/07/2021</td><td ID="MedicationDosageFrequency_1">at bedtime</td><td ID="MedicationDuration_1">30</td><td ID="MedicationFormulaStrength_1">1.5 mg</td><td ID="MedicationDosageForm_1">tablet extended release 24hr</td><td ID="MedicationDosageFormCode_1"></td><td ID="MedicationDosageDescription_1"></td><td ID="MedicationMedicationId_1">[id number]</td><td ID="MedicationAccount_1">[id number]</td><td ID="MedicationNpid_1">[id number]</td><td ID="MedicationAuthorFirstName_1">Souleymane</td><td ID="MedicationAuthorLastName_1">Harp</td><td ID="MedicationTaxonomyCode_1">[id number]</td><td ID="MedicationTaxonomyDesc_1"> Psychiatry</td><td ID="MedicationPhoneNumber_1">[phone]</td> [facility] Fluoxetine 10 MG Oral Capsule [Prozac] Prozac 07/02/2018 12:0 0:00 AM EDT 10 mg completed <td ID="Me dicationRxNorm_2">503152</td><td ID="MedicationMedication_2">Prozac</td><td ID="MedicationRoute_2"></td><td ID="MedicationRouteConcept_2"></td><td ID="MedicationStartDate_2">07/02/2018</td><td ID="MedicationStopDate_2">06/07/2021</td><td ID="MedicationDosageFrequency_2">every morning</td><td ID="MedicationDuration_2"></td><td ID="MedicationFormulaStrength_2">10 mg</td><td ID="MedicationDosageForm_2">capsule</td><td ID="MedicationDosageFormCode_2"></td><td ID="MedicationDosageDescription_2">as directed</td><td ID="MedicationMedicationId_2">[id number]</td><td ID="MedicationAccount_2">[id number]</td><td ID="MedicationNpid_2">[id number]</td><td ID="MedicationAuthorFirstName_2">Elsa</td><td ID="MedicationAuthorLastName_2">MacQueen</td><td ID="MedicationTaxonomyCode_2">[id number]</td><td ID="MedicationTaxonomyDesc_2">Psychiatric/Mental Health</td><td ID="MedicationPhoneNumber_2">[phone]</td> [facility] ([facility]) Lurasidone Hydrochloride 80 MG Oral Tablet [Latuda] Latuda 07/19/2017 12:00:00 AM EDT 80 mg completed <td ID ="MedicationRxNorm_1">[id number]</td><td ID="MedicationMedication_1">Latuda</td><td ID="MedicationRoute_1"></td><td ID="MedicationRouteConcept_1"></td><td ID="MedicationStartDate_1">07/19/2017</td><td ID="MedicationStopDate_1">06/07/2021</td><td ID="MedicationDosageFrequency_1">once a day</td><td ID="MedicationDuration_1"></td><td ID="MedicationFormulaStrength_1">80 mg</td><td ID="MedicationDosageForm_1">tablet</td><td ID="MedicationDosageFormCode_1"></td><td ID="MedicationDosageDescription_1"></td><td ID="MedicationMedicationId_1">[id number]</td><td ID="MedicationAccount_1">[id number]</td><td ID="MedicationNpid_1">[id number]</td><td ID="MedicationAuthorFirstName_1">Elsa</td><td ID="MedicationAuthorLastName_1">MacQueen</td><td ID="MedicationTaxonomyCode_1">[id number]</td><td ID="MedicationTaxonomyDesc_1">Psychiatric/Mental Health</td><td ID="MedicationPhoneNumber_1">[phone]</td> [facility] ([facility]) atorvastatin 20 MG Oral Tablet atorvastatin 20 mg tabl et TK 1 T PO QD atorvastatin 20 mg tablet TK 1 T PO QD completed atorvastatin 20 MG Oral Tablet [facility] ([facility]) 0.5 ML dulaglutide 1.5 MG/ML Auto-Inject or [Trulicity] Trulicity 0.75 mg/0.5 mL subcutaneous pen injector Trulicity 0.75 mg/0.5 mL subcutaneous pen injector completed 0.5 ML dulaglu tide 1.5 MG/ML Auto-Injector [Trulicity] [facility] ([facility]) 0.5 ML dulaglutide 1.5 MG/ML Auto-Inject or [Trulicity] Trulicity 0.75 mg/0.5 mL subcutaneous pen injector Trulicity 0.75 mg/0.5 mL subcutaneous pen injector completed 0.5 ML dulaglu tide 1.5 MG/ML Auto-Injector [Trulicity] [facility] ([facility]) Cyclobenzaprine hydrochloride 5 MG Oral Tablet cyclobenzaprine 5 mg tablet TAKE ONE TABLET BY MOUTH THREE TIMES DAILY NEEDED FOR MUSCLE SPASMS cyclobenzaprine 5 mg tablet TAKE ONE TABLET BY MOUTH THREE TIMES DAILY NEEDED FOR MUSCLE SPASMS completed cyclobenzaprine hydrochloride 5 MG Oral Tablet [facility] ([facility]) OneTouch Verio test strips U UTD TO TEST TID [id number] completed OneTouch Verio test strips [place] ([facility]) sitagliptin 25 MG Oral Tablet [Januvia] Januvia 25 mg tablet Januvia 25 mg tablet completed sitagliptin 25 MG Oral Tablet [Januvia] [facility] ([facility]) Naproxen 500 MG Oral Tablet naproxen 500 mg tablet TK 1 T PO BID P naproxen 500 mg tablet TK 1 T PO BID P completed naproxen 500 MG Oral Tablet [place] ([facility]) sitagliptin 25 MG Oral Tablet [Januvia] Januvia 25 mg tablet Januvia 25 mg tablet completed sitagliptin 25 MG Oral Tablet [Januvia] [facility] ([facility]) atorvastatin 20 MG Oral Tablet atorvastatin 20 mg tabl et TK 1 T PO QD atorvastatin 20 mg tablet TK 1 T PO QD completed atorvastatin 20 MG Oral Tablet [facility] ([facility]) atorvastatin 20 MG Oral Tablet atorvastatin 20 mg tabl et TK 1 T PO QD atorvastatin 20 mg tablet TK 1 T PO QD completed atorvastatin 20 MG Oral Tablet [facility] ([facility]) Acyclovir 200 MG Oral Capsule acyclovir 200 mg capsule acycl ovir 200 mg capsule completed acyclovir 200 MG Oral Capsule VANESSA ([facility]) 0.5 ML dulaglutide 1.5 MG/ML Auto-Inject or [Trulicity] Trulicity 0.75 mg/0.5 mL subcutaneous pen injector Trulicity 0.75 mg/0.5 mL subcutaneous pen injector completed 0.5 ML dulaglu tide 1.5 MG/ML Auto-Injector [Trulicity] VANESSA ([facility]) 3 ML Insulin Lispro 100 UNT/ML Pen Injec tor [Humalog] Humalog KwikPen (U-100) Insulin 100 unit/mL subcutaneous Humalog KwikPen (U-100) Insulin 100 unit /mL subcutaneous completed 3 ML insulin lispro 100 UNT/ML Pen Injector [Humalog] VANESSA ([facility]) Naproxen 500 MG Oral Tablet naproxen 500 mg tablet TK 1 T PO BID P naproxen 500 mg tablet TK 1 T PO BID P completed naproxen 500 MG Oral Tablet VANESSA ([facility]) atorvastatin 10 MG Oral Tablet atorvastatin 10 mg tabl et atorvastatin 10 mg tablet completed atorvastatin 10 MG Oral Tablet [facility] ([facility]) Suprep Bowel Prep Kit 17.5 gram-3.13 gram-1.6 gram ora l solution MX AND DRK UTD [id number] completed Suprep Bowel Prep Kit 17.5 gram-3.13 gram-1.6 gram oral solution VANESSA ([facility]) Cephalexin 500 MG Oral Capsule cephalexin 500 mg capsu le cephalexin 500 mg capsule completed cephalexin 500 MG Oral Capsule VANESSA ([facility]) atorvastatin 20 MG Oral Tablet atorvastatin 20 mg tabl et TK 1 T PO QD atorvastatin 20 mg tablet TK 1 T PO QD completed atorvastatin 20 MG Oral Tablet VANESSA ([facility]) Cyclobenzaprine hydrochloride 5 MG Oral Tablet cyclobenzaprine 5 mg tablet TAKE ONE TABLET BY MOUTH THREE TIMES DAILY NEEDED FOR MUSCLE SPASMS cyclobenzaprine 5 mg tablet TAKE ONE TABLET BY MOUTH THREE TIMES DAILY NEEDED FOR MUSCLE SPASMS completed cyclobenzaprine hydrochloride 5 MG Oral Tablet VANESSA ([facility]) 0.5 ML dulaglutide 1.5 MG/ML Auto-Inject or [Trulicity] Trulicity 0.75 mg/0.5 mL subcutaneous pen injector Trulicity 0.75 mg/0.5 mL subcutaneous pen injector completed 0.5 ML dulaglu tide 1.5 MG/ML Auto-Injector [Trulicity] VANESSA ([facility]) 1.5 ML Insulin Glargine [...] glargine 300 UNT/ML Pen Injector [Toujeo] VANESSA ([facility]) gabapentin 300 MG Oral Capsule gabapenti n 300 mg capsule TAKE 1 CAPSULE BY MOUTH THREE TIMES DAILY gabapentin 300 mg capsule TAKE 1 CAPSULE BY MOUTH THREE TIMES DAILY completed gabapentin 300 MG Oral Capsule [facility]) 0.5 ML dulaglutide 1.5 MG/ML Auto-Inject or [Trulicity] Trulicity 0.75 mg/0.5 mL subcutaneous pen injector Trulicity 0.75 mg/0.5 mL subcutaneous pen injector completed 0.5 ML dulaglu tide 1.5 MG/ML Auto-Injector [Trulicity] VANESSA ([facility]) sitagliptin 50 MG Oral Tablet [Januvia] Januvia 50 mg tablet Januvia 50 mg tablet completed sitagliptin 50 MG Oral Tablet [Januvia] [facility] ([facility]) 3 ML Insulin Lispro 100 UNT/ML Pen Injec tor [Humalog] Humalog KwikPen (U-100) Insulin 100 unit/mL subcutaneous Humalog KwikPen (U-100) Insulin 100 unit /mL subcutaneous completed 3 ML insulin lispro 100 UNT/ML Pen Injector [Humalog] VANESSA ([facility]) 1.5 ML Insulin Glargine 300 UNT/ML [...] glargine 300 UNT/ML Pen Injector [Toujeo] VANESSA ([facility]) 1.5 ML Insulin Glargine 300 UNT/ML [...] glargine 300 UNT/ML Pen Injector [Toujeo] VANESSA ([facility]) 1.5 ML Insulin Glargine 300 UNT/ML [...] glargine 300 UNT/ML Pen Injector [Toujeo] VANESSA ([facility]) OneTouch Verio test strips U UTD TO TEST TID [id number] completed OneTouch Verio test strips VANESSA ([facility]) 1.5 ML Insulin Glargine 300 UNT/ML [...] glargine 300 UNT/ML Pen Injector [Toujeo] VANESSA ([facility]) Naproxen 500 MG Oral Tablet naproxen 500 mg tablet TK 1 T PO BID P naproxen 500 mg tablet TK 1 T PO BID P completed naproxen 500 MG Oral Tablet VANESSA ([facility]) sitagliptin 25 MG Oral Tablet [Januvia] Januvia 25 mg tablet Januvia 25 mg tablet completed sitagliptin 25 MG Oral Tablet [Januvia] [facility] ([facility]) Cyclobenzaprine hydrochloride 5 MG Oral Tablet cyclobenzaprine 5 mg tablet TAKE ONE TABLET BY MOUTH THREE TIMES DAILY NEEDED FOR MUSCLE SPASMS cyclobenzaprine 5 mg tablet TAKE ONE TABLET BY MOUTH THREE TIMES DAILY NEEDED FOR MUSCLE SPASMS completed cyclobenzaprine hydrochloride 5 MG Oral Tablet VANESSA ([facility]) Naproxen 500 MG Oral Tablet naproxen 500 mg tablet TK 1 T PO BID P naproxen 500 mg tablet TK 1 T PO BID P completed naproxen 500 MG Oral Tablet VANESSA ([facility]) 3 ML Insulin Lispro 100 UNT/ML Pen Injec tor [Humalog] Humalog KwikPen (U-100) Insulin 100 unit/mL subcutaneous Humalog KwikPen (U-100) Insulin 100 unit /mL subcutaneous completed 3 ML insulin lispro 100 UNT/ML Pen Injector [Humalog] VANESSA ([facility]) Naproxen 500 MG Oral Tablet naproxen 500 mg tablet TK 1 T PO BID P naproxen 500 mg tablet TK 1 T PO BID P completed naproxen 500 MG Oral Tablet [facility] [place] ([facility]) Suprep Bowel Prep Kit 17.5 gram-3.13 gram-1.6 gram ora l solution MX AND DRK UTD [id number] completed Suprep Bowel Prep Kit 17.5 gram-3.13 gram-1.6 gram oral solution VANESSA ([facility]) atorvastatin 20 MG Oral Tablet atorvastatin 20 mg tabl et TK 1 T PO QD atorvastatin 20 mg tablet TK 1 T PO QD completed atorvastatin 20 MG Oral Tablet [facility]ESSA ([facility]) Acyclovir 200 MG Oral Capsule acyclovir 200 mg capsule acycl ovir 200 mg capsule completed acyclovir 200 MG Oral Capsule [facility] ([facility]) sitagliptin 25 MG Oral Tablet [Januvia] Januvia 25 mg tablet Januvia 25 mg tablet completed sitagliptin 25 MG Oral Tablet [Januvia] [facility] ([facility]) sitagliptin 25 MG Oral Tablet [Januvia] Januvia 25 mg tablet Januvia 25 mg tablet completed sitagliptin 25 MG Oral Tablet [Januvia] [facility] ([facility]) gabapentin 300 MG Oral Capsule gabapenti n 300 mg capsule TAKE 1 CAPSULE BY MOUTH THREE TIMES DAILY gabapentin 300 mg capsule TAKE 1 CAPSULE BY MOUTH THREE TIMES DAILY completed gabapentin 300 MG Oral Capsule VANESSA ([facility]) 1.5 ML Insulin Glargine [...] insulin glargine 300 UNT/ML Pen Injector [Toujeo] [facility]) 0.5 ML dulaglutide 1.5 MG/ML Auto-Inject or [Trulicity] Trulicity 0.75 mg/0.5 mL subcutaneous pen injector Trulicity 0.75 mg/0.5 mL subcutaneous pen injector completed 0.5 ML dulaglu tide 1.5 MG/ML Auto-Injector [Trulicity] [facility] [place] ([facility]) gabapentin 300 MG Oral Capsule gabapenti n 300 mg capsule TAKE 1 CAPSULE BY MOUTH THREE TIMES DAILY gabapentin 300 mg capsule TAKE 1 CAPSULE BY MOUTH THREE TIMES DAILY completed gabapentin 300 MG Oral Capsule [facility] [place] ([facility]) sitagliptin 25 MG Oral Tablet [Januvia] Januvia 25 mg tablet Januvia 25 mg tablet completed sitagliptin 25 MG Oral Tablet [Januvia] [facility] [place] ([facility]) gabapentin 300 MG Oral Capsule gabapenti n 300 mg capsule TAKE 1 CAPSULE BY MOUTH THREE TIMES DAILY gabapentin 300 mg capsule TAKE 1 CAPSULE BY MOUTH THREE TIMES DAILY completed gabapentin 300 MG Oral Capsule [facility] [place] ([facility]) Cephalexin 500 MG Oral Capsule cephalexin 500 mg capsu le cephalexin 500 mg capsule completed cephalexin 500 MG Oral Capsule [facility] [place] ([facility]) Suprep Bowel Prep Kit 17.5 gram-3.13 gram-1.6 gram ora l solution MX AND DRK UTD [id number] completed Suprep Bowel Prep Kit 17.5 gram-3.13 gram-1.6 gram oral solution [facility] ([facility]) 0.5 ML dulaglutide 1.5 MG/ML Auto-Inject or [Trulicity] Trulicity 0.75 mg/0.5 mL subcutaneous pen injector Trulicity 0.75 mg/0.5 mL subcutaneous pen injector completed 0.5 ML dulaglu tide 1.5 MG/ML Auto-Injector [Trulicity] [facility] [place] ([facility]) 1.5 ML Insulin Glargine [...] insulin glargine 300 UNT/ML Pen Injector [Toujeo] [facility] ([facility]) 3 ML Insulin Lispro 100 UNT/ML Pen Injec tor [Humalog] Humalog KwikPen (U-100) Insulin 100 unit/mL subcutaneous Humalog KwikPen (U-100) Insulin 100 unit /mL subcutaneous completed 3 ML insulin lispro 100 UNT/ML Pen Injector [Humalog] VANESSA ([facility]) 1.5 ML Insulin Glargine 300 UNT/ML [...] glargine 300 UNT/ML Pen Injector [Toujeo] VANESSA ([facility]) sitagliptin 25 MG Oral Tablet [Januvia] Januvia 25 mg tablet Januvia 25 mg tablet completed sitagliptin 25 MG Oral Tablet [Januvia] [facility] [place] ([facility]) 3 ML Insulin Lispro 100 UNT/ML Pen Injec tor [Humalog] Humalog KwikPen (U-100) Insulin 100 unit/mL subcutaneous Humalog KwikPen (U-100) Insulin 100 unit /mL subcutaneous completed 3 ML insulin lispro 100 UNT/ML Pen Injector [Humalog] VANESSA ([facility]) atorvastatin 20 MG Oral Tablet atorvastatin 20 mg tabl et TK 1 T PO QD atorvastatin 20 mg tablet TK 1 T PO QD completed atorvastatin 20 MG Oral Tablet VANESSA ([facility]) Cyclobenzaprine hydrochloride 5 MG Oral Tablet cyclobenzaprine 5 mg tablet TAKE ONE TABLET BY MOUTH THREE TIMES DAILY NEEDED FOR MUSCLE SPASMS cyclobenzaprine 5 mg tablet TAKE ONE TABLET BY MOUTH THREE TIMES DAILY NEEDED FOR MUSCLE SPASMS completed cyclobenzaprine hydrochloride 5 MG Oral Tablet [facility]ESSA ([facility]) Suprep Bowel Prep Kit 17.5 gram-3.13 gram-1.6 gram ora l solution MX AND DRK UTD [id number] completed Suprep Bowel Prep Kit 17.5 gram-3.13 gram-1.6 gram oral solution [facility] [place] ([facility]) sitagliptin 25 MG Oral Tablet [Januvia] Januvia 25 mg tablet Januvia 25 mg tablet completed sitagliptin 25 MG Oral Tablet [Januvia] [facility] ([facility]) Naproxen 500 MG Oral Tablet naproxen 500 mg tablet TK 1 T PO BID P naproxen 500 mg tablet TK 1 T PO BID P completed naproxen 500 MG Oral Tablet [facility] [place] ([facility]) gabapentin 300 MG Oral Capsule gabapenti n 300 mg capsule TAKE 1 CAPSULE BY MOUTH THREE TIMES DAILY gabapentin 300 mg capsule TAKE 1 CAPSULE BY MOUTH THREE TIMES DAILY completed gabapentin 300 MG Oral Capsule [facility] [place] ([facility]) atorvastatin 10 MG Oral Tablet atorvastatin 10 mg tabl et atorvastatin 10 mg tablet completed atorvastatin 10 MG Oral Tablet [facility]SA ([facility]) Naproxen 500 MG Oral Tablet naproxen 500 mg tablet TK 1 T PO BID P naproxen 500 mg tablet TK 1 T PO BID P completed naproxen 500 MG Oral Tablet [facility]SA ([facility]) Suprep Bowel Prep Kit 17.5 gram-3.13 gram-1.6 gram ora l solution MX AND DRK UTD [id number] completed Suprep Bowel Prep Kit 17.5 gram-3.13 gram-1.6 gram oral solution VANESSA ([facility]) Suprep Bowel Prep Kit 17.5 gram-3.13 gram-1.6 gram ora l solution MX AND DRK UTD [id number] completed Suprep Bowel Prep Kit 17.5 gram-3.13 gram-1.6 gram oral solution VANESSA ([facility]) OneTouch Verio test strips U UTD TO TEST TID [id number] completed OneTouch Verio test strips VANESSA ([facility]) Suprep Bowel Prep Kit 17.5 gram-3.13 gram-1.6 gram ora l solution MX AND DRK UTD [id number] completed Suprep Bowel Prep Kit 17.5 gram-3.13 gram-1.6 gram oral solution VANESSA ([facility]) 0.5 ML dulaglutide 1.5 MG/ML Auto-Inject or [Trulicity] Trulicity 0.75 mg/0.5 mL subcutaneous pen injector Trulicity 0.75 mg/0.5 mL subcutaneous pen injector completed 0.5 ML dulaglu tide 1.5 MG/ML Auto-Injector [Trulicity] VANESSA ([facility]) Suprep Bowel Prep Kit 17.5 gram-3.13 gram-1.6 gram ora l solution MX AND DRK UTD [id number] completed Suprep Bowel Prep Kit 17.5 gram-3.13 gram-1.6 gram oral solution VANESSA ([facility]) atorvastatin 20 MG Oral Tablet atorvastatin 20 mg tabl et TK 1 T PO QD atorvastatin 20 mg tablet TK 1 T PO QD completed atorvastatin 20 MG Oral Tablet VANESSA ([facility]) 1.5 ML Insulin Glargine 300 UNT/ML [...] glargine 300 UNT/ML Pen Injector [Toujeo] VANESSA ([facility]) sitagliptin 25 MG Oral Tablet [Januvia] Januvia 25 mg tablet Januvia 25 mg tablet completed sitagliptin 25 MG Oral Tablet [Januvia] [facility] ([facility]) gabapentin 300 MG Oral Capsule gabapenti n 300 mg capsule TAKE 1 CAPSULE BY MOUTH THREE TIMES DAILY gabapentin 300 mg capsule TAKE 1 CAPSULE BY MOUTH THREE TIMES DAILY completed gabapentin 300 MG Oral Capsule [facility] [place] ([facility]) Naproxen 500 MG Oral Tablet naproxen 500 mg tablet TK 1 T PO BID P naproxen 500 mg tablet TK 1 T PO BID P completed naproxen 500 MG Oral Tablet [facility] [place] ([facility]) Naproxen 500 MG Oral Tablet naproxen 500 mg tablet TK 1 T PO BID P naproxen 500 mg tablet TK 1 T PO BID P completed naproxen 500 MG Oral Tablet [facility] [place] ([facility]) sitagliptin 50 MG Oral Tablet [Januvia] Januvia 50 mg tablet Januvia 50 mg tablet completed sitagliptin 50 MG Oral Tablet [Januvia] [facility] ([facility]) sitagliptin 25 MG Oral Tablet [Januvia] Januvia 25 mg tablet Januvia 25 mg tablet completed sitagliptin 25 MG Oral Tablet [Januvia] [facility] ([facility]) Cyclobenzaprine hydrochloride 5 MG Oral Tablet cyclobenzaprine 5 mg tablet TAKE ONE TABLET BY MOUTH THREE TIMES DAILY NEEDED FOR MUSCLE SPASMS cyclobenzaprine 5 mg tablet TAKE ONE TABLET BY MOUTH THREE TIMES DAILY NEEDED FOR MUSCLE SPASMS completed cyclobenzaprine hydrochloride 5 MG Oral Tablet [facility] [place] ([facility]) 3 ML Insulin Lispro 100 UNT/ML Pen Injec tor [Humalog] Humalog KwikPen (U-100) Insulin 100 unit/mL subcutaneous Humalog KwikPen (U-100) Insulin 100 unit /mL subcutaneous completed 3 ML insulin lispro 100 UNT/ML Pen Injector [Humalog] [facility] [place] ([facility]) Cyclobenzaprine hydrochloride 5 MG Oral Tablet cyclobenzaprine 5 mg tablet TAKE ONE TABLET BY MOUTH THREE TIMES DAILY NEEDED FOR MUSCLE SPASMS cyclobenzaprine 5 mg tablet TAKE ONE TABLET BY MOUTH THREE TIMES DAILY NEEDED FOR MUSCLE SPASMS completed cyclobenzaprine hydrochloride 5 MG Oral Tablet [facility] [place] ([facility]) 3 ML Insulin Lispro 100 UNT/ML Pen Injec tor [Humalog] Humalog KwikPen (U-100) Insulin 100 unit/mL subcutaneous Humalog KwikPen (U-100) Insulin 100 unit /mL subcutaneous completed 3 ML insulin lispro 100 UNT/ML Pen Injector [Humalog] [facility] [place] ([facility]) Cyclobenzaprine hydrochloride 5 MG Oral Tablet cyclobenzaprine 5 mg tablet TAKE ONE TABLET BY MOUTH THREE TIMES DAILY NEEDED FOR MUSCLE SPASMS cyclobenzaprine 5 mg tablet TAKE ONE TABLET BY MOUTH THREE TIMES DAILY NEEDED FOR MUSCLE SPASMS completed cyclobenzaprine hydrochloride 5 MG Oral Tablet [facility] [place] ([facility]) Cyclobenzaprine hydrochloride 5 MG Oral Tablet cyclobenzaprine 5 mg tablet TAKE ONE TABLET BY MOUTH THREE TIMES DAILY NEEDED FOR MUSCLE SPASMS cyclobenzaprine 5 mg tablet TAKE ONE TABLET BY MOUTH THREE TIMES DAILY NEEDED FOR MUSCLE SPASMS completed cyclobenzaprine hydrochloride 5 MG Oral Tablet [facility] [place] ([facility]) 3 ML Insulin Lispro 100 UNT/ML Pen Injec tor [Humalog] Humalog KwikPen (U-100) Insulin 100 unit/mL subcutaneous Humalog KwikPen (U-100) Insulin 100 unit /mL subcutaneous completed 3 ML insulin lispro 100 UNT/ML Pen Injector [Humalog] VANESSA ([facility]) Naproxen 500 MG Oral Tablet naproxen 500 mg tablet TK 1 T PO BID P naproxen 500 mg tablet TK 1 T PO BID P completed naproxen 500 MG Oral Tablet [facility] [place] ([facility]) Cyclobenzaprine hydrochloride 5 MG Oral Tablet cyclobenzaprine 5 mg tablet TK 1 T PO TID PRN FOR MUSCLE SPASMS cyclobenzaprine 5 mg tablet TK 1 T PO TI D PRN FOR MUSCLE SPASMS completed cyclobenzaprine hydrochloride 5 MG Oral Tablet [facility] [place] ([facility]) gabapentin 300 MG Oral Capsule gabapenti n 300 mg capsule TAKE 1 CAPSULE BY MOUTH THREE TIMES DAILY gabapentin 300 mg capsule TAKE 1 CAPSULE BY MOUTH THREE TIMES DAILY completed gabapentin 300 MG Oral Capsule [facility] [place] ([facility]) 1.5 ML Insulin Glargine [...] glargine 300 UNT/ML Pen Injector [Toujeo] VANESSA ([facility]) 3 ML Insulin Lispro 100 UNT/ML Pen Injec tor [Humalog] Humalog KwikPen (U-100) Insulin 100 unit/mL subcutaneous Humalog KwikPen (U-100) Insulin 100 unit /mL subcutaneous completed 3 ML insulin lispro 100 UNT/ML Pen Injector [Humalog] VANESSA ([facility]) 1.5 ML Insulin Glargine 300 UNT/ML [...] glargine 300 UNT/ML Pen Injector [Toujeo] VANESSA ([facility]) atorvastatin 20 MG Oral Tablet atorvastatin 20 mg tabl et TK 1 T PO QD atorvastatin 20 mg tablet TK 1 T PO QD completed atorvastatin 20 MG Oral Tablet [facility]SA ([facility]) Suprep Bowel Prep Kit 17.5 gram-3.13 gram-1.6 gram ora l solution MX AND DRK UTD [id number] completed Suprep Bowel Prep Kit 17.5 gram-3.13 gram-1.6 gram oral solution VANESSA ([facility]) 0.5 ML dulaglutide 1.5 MG/ML Auto-Inject or [Trulicity] Trulicity 0.75 mg/0.5 mL subcutaneous pen injector Trulicity 0.75 mg/0.5 mL subcutaneous pen injector completed 0.5 ML dulaglu tide 1.5 MG/ML Auto-Injector [Trulicity] VANESSA ([facility]) gabapentin 300 MG Oral Capsule gabapenti n 300 mg capsule TAKE 1 CAPSULE BY MOUTH THREE TIMES DAILY gabapentin 300 mg capsule TAKE 1 CAPSULE BY MOUTH THREE TIMES DAILY completed gabapentin 300 MG Oral Capsule [facility] ([facility]) Naproxen 500 MG Oral Tablet naproxen 500 mg tablet TK 1 T PO BID P naproxen 500 mg tablet TK 1 T PO BID P completed naproxen 500 MG Oral Tablet [facility] ([facility]) atorvastatin 20 MG Oral Tablet atorvastatin 20 mg tabl et TK 1 T PO QD atorvastatin 20 mg tablet TK 1 T PO QD completed atorvastatin 20 MG Oral Tablet [facility] ([facility]) 0.5 ML dulaglutide 1.5 MG/ML Auto-Inject or [Trulicity] Trulicity 0.75 mg/0.5 mL subcutaneous pen injector Trulicity 0.75 mg/0.5 mL subcutaneous pen injector completed 0.5 ML dulaglu tide 1.5 MG/ML Auto-Injector [Trulicity] [facility] [place] ([facility]) Suprep Bowel Prep Kit 17.5 gram-3.13 gram-1.6 gram ora l solution MX AND DRK UTD [id number] completed Suprep Bowel Prep Kit 17.5 gram-3.13 gram-1.6 gram oral solution [facility]ANESSA ([facility]) 3 ML Insulin Lispro 100 UNT/ML Pen Injec tor [Humalog] Humalog KwikPen (U-100) Insulin 100 unit/mL subcutaneous Humalog KwikPen (U-100) Insulin 100 unit /mL subcutaneous completed 3 ML insulin lispro 100 UNT/ML Pen Injector [Humalog] [facility] ([facility]) 0.5 ML dulaglutide 1.5 MG/ML Auto-Inject or [Trulicity] Trulicity 0.75 mg/0.5 mL subcutaneous pen injector Trulicity 0.75 mg/0.5 mL subcutaneous pen injector completed 0.5 ML dulaglu tide 1.5 MG/ML Auto-Injector [Trulicity] VANESSA ([facility]) Cyclobenzaprine hydrochloride 5 MG Oral Tablet cyclobenzaprine 5 mg tablet TAKE ONE TABLET BY MOUTH THREE TIMES DAILY NEEDED FOR MUSCLE SPASMS cyclobenzaprine 5 mg tablet TAKE ONE TABLET BY MOUTH THREE TIMES DAILY NEEDED FOR MUSCLE SPASMS completed cyclobenzaprine hydrochloride 5 MG Oral Tablet [facility] ([facility]) atorvastatin 20 MG Oral Tablet atorvastatin 20 mg tabl et TK 1 T PO QD atorvastatin 20 mg tablet TK 1 T PO QD completed atorvastatin 20 MG Oral Tablet [facility] ([facility]) atorvastatin 20 MG Oral Tablet atorvastatin 20 mg tabl et TK 1 T PO QD atorvastatin 20 mg tablet TK 1 T PO QD completed atorvastatin 20 MG Oral Tablet [facility] ([facility]) gabapentin 300 MG Oral Capsule gabapenti n 300 mg capsule TAKE 1 CAPSULE BY MOUTH THREE TIMES DAILY gabapentin 300 mg capsule TAKE 1 CAPSULE BY MOUTH THREE TIMES DAILY completed gabapentin 300 MG Oral Capsule [facility] [place] ([facility]) Cyclobenzaprine hydrochloride 5 MG Oral Tablet cyclobenzaprine 5 mg tablet TAKE ONE TABLET BY MOUTH THREE TIMES DAILY NEEDED FOR MUSCLE SPASMS cyclobenzaprine 5 mg tablet TAKE ONE TABLET BY MOUTH THREE TIMES DAILY NEEDED FOR MUSCLE SPASMS completed cyclobenzaprine hydrochloride 5 MG Oral Tablet [facility] ([facility]) 3 ML Insulin Lispro 100 UNT/ML Pen Injec tor [Humalog] Humalog KwikPen (U-100) Insulin 100 unit/mL subcutaneous Humalog KwikPen (U-100) Insulin 100 unit /mL subcutaneous completed 3 ML insulin lispro 100 UNT/ML Pen Injector [Humalog] [facility]ESSA ([facility]) Suprep Bowel Prep Kit 17.5 gram-3.13 gram-1.6 gram ora l solution MX AND DRK UTD [id number] completed Suprep Bowel Prep Kit 17.5 gram-3.13 gram-1.6 gram oral solution [facility] ([facility]) gabapentin 300 MG Oral Capsule gabapenti n 300 mg capsule TAKE 1 CAPSULE BY MOUTH THREE TIMES DAILY gabapentin 300 mg capsule TAKE 1 CAPSULE BY MOUTH THREE TIMES DAILY completed gabapentin 300 MG Oral Capsule [facility] ([facility]) OneTouch Verio test strips U UTD TO TEST TID [id number] completed OneTouch Verio test strips [facility]ANES[facility] ([facility]) Insurance Providers Payer name Policy type / Coverage type Policy ID Covered democrat ID Covered democrat's relationship to cortes Policy [place] Plan Information MEDICARE A [id number] Self [id number] A MEDICARE [id number] Pushpa [id number] Medicare P [id number] S [id number] A Medicaid S [id number] S [id number] Medicaid S [id number] S [id number] MEDICAID M [id number] Self [id number] MEDICAID [id number] Pushpa [id number] MEDICAID -PHYSICIAN [id number] [place] [id number] SP [id number] Medicare P [id number] S [id number] A MEDICAID [id number] MEDICARE CO [id number] 18 [id number] MEDICAID -RECURRING [id number] MEDICARE -[facility] MC [id number] 18 [id number] MEDICAID [place] [facility] [id number] MEDICARE PART A [facility] [id number] 18 [id number] Medicare Commercial [id number] Self [id number] Medicaid Commercial [id number] Self [id number] Medicare Part A [place] Primary [id number] Self [id number] Medicaid Commercial [id number] Self [id number] Medicare Commercial [id number] Self [id number] Medicaid Commercial [id number] Self [id number] [place] Part [place] Primary [id number] Self [id number] Medicaid Commercial [id number] Self [id number] Medicare Commercial [id number] Self [id number] Medicaid Commercial [id number] Self [id number] Medicare Part [place] Primary [id number] Self [id number] Medicaid Commercial [id number] Self [id number] Medicare Dme Medigap Part B [id number] Self [id number] Medicaid Medicaid [id number] Self [id number] Medicare Medicare Primary [id number] Self [id number] Medicare Dme Medigap Part B [id number] Self [id number] Medicaid Medicaid [id number] Self [id number] Medicare Medicare Primary [id number] Self [id number] Medicare Dme Medigap Part B [id number] Self [id number] Medicaid Medicaid [id number] Self [id number] Medicare Medicare Primary [id number] Self [id number] [place] [id number] 2.16.840.1.010932.3.227.99 .991.772958.0 Self [id number] [place] [id number] 2.16.840.1.669772.3.227.99.991.427100.0 Self [id number] Medicaid Commercial [id number] 2.16.840.1.471935.3.227.99.510.94411. 0 Self [id number] Medicare Commercial [id number] 2.16.840.1.315963.3.227.99.510.154 64.0 Self [id number] Medicaid Commercial [id number] 2.16.840.1.262214.3.227.99.510.95577.0 Self [id number] Medicare Part A [place] Medicare Primary [id number] 2.16.840.1.266259.3.227.99.510.61373.0 Self 9 [id number] [place] [id number] 2.16.840.1.007538.3.227.99 .991.922362.0 Self [id number] [place] Primary [id number] 2.16.840.1.532413.3.227.99.991.288994.0 Self [id number] Medicare Commercial [id number] 2.16.840.1.286632.3.227.99.510.154 64.0 Self [id number] Medicaid Commercial [id number] 2.16.840.1.128633.3.227.99.510.61959. 0 Self [id number] Medicaid Commercial [id number] 2.16.840.1.538807.3.227.99.510.95890.0 Self [id number] [place] [id number] 2.16.840.1.730009.3.227.99.510.74821.0 Self 9 [id number] Medicare Commercial [id number] 2.16.840.1.244263.3.227.99.510.154 64.0 Self [id number] Medicaid Commercial [id number] 2.16.840.1.407436.3.227.99.510.55434. 0 Self [id number] Medicaid Commercial [id number] 2.16.840.1.263558.3.227.99.510.95817.0 Self [id number] [place] [id number] 2.16.840.1.263897.3.227.99.510.00980.0 Self 9 [id number] Medicare Commercial [id number] 2.16.840.1.401139.3.227.99.510.154 64.0 Self [id number] Medicaid Commercial [id number] 2.16.840.1.348928.3.227.99.510.07463. 0 Self [id number] Medicaid Commercial [id number] 2.16.840.1.226727.3.227.99.510.53245.0 Self [id number] [place] [id number] 2.16.840.1.506812.3.227.99.510.14495.0 Self 9 [id number] Medicare Commercial [id number] 2.16.840.1.181061.3.227.99.510.154 64.0 Self [id number] Medicaid Commercial [id number] 2.16.840.1.279869.3.227.99.510.11234. 0 Self [id number] Medicaid Commercial [id number] 2.16.840.1.813960.3.227.99.510.68189.0 Self [id number] [place] [id number] 2.16.840.1.226416.3.227.99.510.61245.0 Self [id number] Medicaid [facility] Medicaid [id number] 2.16.840.1.167587.3.22 7.99.510.15898.0 Self [id number] [place] [id number] 2.16.840.1.620224.3.227.99.510.21694.0 Self 9 [id number] Medicaid [facility] Medicaid [id number] 2.16.840.1.355336.3.22 7.99.510.93642.0 Self [id number] [place] [id number] 2.16.840.1.276097.3.227.99.510.08913.0 Self 9 [id number] Medicaid [facility] Medicaid [id number] 2.16.840.1.049955.3.22 7.99.510.34204.0 Self [id number] [place] [id number] 2.16.840.1.553541.3.227.99.510.86143.0 Self 9 [id number] Medicaid [facility] Medicaid [id number] 2.16.840.1.794941.3.22 7.99.510.51232.0 Self [id number] [place] [id number] 2.16.840.1.531306.3.227.99.510.61714.0 Self 9 [id number] Medicaid [facility] Medicaid [id number] 2.16.840.1.347153.3.22 7.99.510.60574.0 Self [id number] [place] [id number] 2.16.840.1.371797.3.227.99.510.84926.0 Self 9 [id number] Medicaid [facility] Medicaid [id number] 2.16.840.1.169311.3.22 7.99.510.84855.0 Self [id number] [place] [id number] 2.16.840.1.088715.3.227.99.510.92449.0 Self 9 [id number] [place] [facility] [place] [id number] 2.16.840.1.806172.3.22 7.99.510.74657.0 Self [id number] [place] [id number] 2.16.840.1.948861.3.227.99.510.97771.0 Self 9 [id number] MEDICARE [id number] [place] [id number] 2.16.840.1.548658.3.227.99 .6619.93043.0 Self [id number] [place] [id number] 2.16.840.1.965939.3.227.99.6619.74527.0 Self [id number] [place] [facility] [place] [id number] 2.16.840.1.545305.3.22 7.99.510.89934.0 Self [id number] [place] [id number] 2.16.840.1.530745.3.227.99.510.96170.0 Self 9 [id number] MEDICARE PART A -O/P [id number] [place] [facility] [place] [id number] 2.16.840.1.332613.3.22 7.99.510.14951.0 Self [id number] [place] [id number] 2.16.840.1.065048.3.227.99.510.65897.0 Self 9 [id number] Medicaid [facility] Medicaid [id number] 2.16.840.1.540362.3.22 7.99.510.00228.0 Self [id number] [place] [id number] 2.16.840.1.384731.3.227.99.510.21655.0 Self 9 [id number] Medicaid [facility] Medicaid [id number] 2.16.840.1.695682.3.22 7.99.510.39789.0 Self [id number] [place] [id number] 2.16.840.1.260763.3.227.99.510.48448.0 Self 9 [id number] Medicaid [facility] Medicaid [id number] 2.16.840.1.170656.3.22 7.99.510.55678.0 Self [id number] [place] [id number] 2.16.840.1.733185.3.227.99.510.21272.0 Self 1 [id number] Medicaid [facility] Medicaid [id number] 2.16.840.1.296137.3.22 7.99.510.76351.0 Self [id number] [place] [id number] 2.16.840.1.750201.3.227.99.510.43451.0 Self 1 [id number] Medicaid [facility] Medicaid [id number] 2.16.840.1.951449.3.22 7.99.510.77738.0 Self [id number] [place] [id number] 2.16.840.1.864371.3.227.99.510.31608.0 Self 1 [id number] Medicaid [facility] Medicaid [id number] 2.16.840.1.342719.3.22 7.99.510.74281.0 Self [id number] [place] [id number] 2.16.840.1.732878.3.227.99.510.34830.0 Self 1 [id number] Medicare Dme Medigap Part B [id number] 2.840.1.736768.3.227.99 .936.54032.0 Self [id number] Medicaid Medicaid [id number] 2.16840.1.200601.3.227.99.936.69927.0 S elf [id number] Medicare Medicare Primary [id number] 2.840.1.545462.3.227. 99.936.61955.0 Self [id number] Medicare Dme Medigap Part B [id number] .840.1.568418.3.227.99 .936.46276.0 Self [id number] Medicaid Medicaid [id number] 2.840.1.076172.3.227.99.936.36589.0 S elf [id number] Medicare Medicare Primary [id number] 2.840.1.641469.3.227. 99.936.38038.0 Self [id number] Medicare Dme Medigap Part B [id number] .840.1.386652.3.227.99 .936.18259.0 Self [id number] Medicaid Medicaid [id number] 2.840.1.066925.3.227.99.936.97693.0 S elf [id number] Medicare Medicare Primary [id number] 2.840.1.923549.3.227. 99.936.46137.0 Self [id number] Medicare Dme Medigap Part B [id number] .840.1.929994.3.227.99 .936.97914.0 Self [id number] Medicaid Medicaid [id number] 2.840.1.831509.3.227.99.936.93988.0 S elf [id number] Medicare Medicare Primary [id number] 2.840.1.019108.3.227. 99.936.60082.0 Self [id number] Medicare Dme Medigap Part B [id number] 2.16.840.1.939992.3.227.99 .936.15133.0 Self [id number] Medicaid Medicaid [id number] 2.16.840.1.689885.3.227.99.936.09048.0 S elf [id number] Medicare Medicare Primary [id number] 2.16.840.1.756642.3.227. 99.936.35730.0 Self [id number] Medicare Dme Medigap Part B [id number] 2.16.840.1.736337.3.227.99 .936.41969.0 Self [id number] Medicaid Medicaid [id number] 2.16.840.1.914025.3.227.99.936.27048.0 S elf [id number] Medicare Medicare Primary [id number] 2.16.840.1.481901.3.227. 99.936.30429.0 Self [id number] Medicaid Medicaid 2.16.840.1.470840.3.227.99.936.45266.0 S elf Medicare Medicare Primary 2.16.840.1.680141.3.227.99.936.23 302.0 Self HMO BLUE [id number] SP [id number] BLUE [place] PLAN [id number] SP [id number] MEDICAID S [id number] S [id number] MEDICARE P [id number] S [id number] A HMO BLUE [id number] SP [id number] [facility] PLUS [id number] SP [id number] HEALTH WELFARE BENEFIT SYS [id number] SP [id number] [place] [id number] SP [id number] MEDICARE [id number] SP [id number] MEDICARE PART A -O/P MC [id number] 18 [id number] MEDICAID -O/P MC [id number] 18 [id number] MEDICAID [place] [id number] MEDIC[place] PART A [place] [id number] 18 [id number] MEDICAID [place] [id number] Problems, Conditions, and Diagnoses Code Display Name Description Problem Type Effective Dates Data Source(s) M542 Cervicalgia Cervicalgia Diagnosis 03/11/2021 02:01:00 PM EDT [facility] F43.9 Reaction to severe stress, unspecified 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 06/28/2021 12:00:00 AM EDT [facility] ([facility]) 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 Unspecified Schizophrenia Spectrum and Other Psychotic Disorder Condition 06/28/2021 12:00:00 AM EDT [facility] ([facility]) [id number] Cervical radiculopathy Cervical radiculopathy Problem 03/25/2021 12:00:00 AM EDT [facility] ([facility] ) E11.9 Type 2 diabetes mellitus Type 2 diabetes mellitus Prob allan 03/20/2021 12:00:00 AM EDT [facility] ([facility] M21.619 Bunion Bunion Problem 03/20/2021 12:00:00 AM ED T [facility] ([facility] [id number] SNOMED CT Concept SNOMED CT Concept Problem 01/09 12:00:00 AM EST - 02/15/2021 12:00:00 AM EDT VANESSA ([facility]) [id number] Finding of urine substance level Finding of Urin e Substance Level Problem 01/09/2018 12:00:00 AM EST - 09/30/2020 12:00:00 AM JENNIFER MENDEZ ([facility]) [id number] SNOMED CT Concept SNOMED CT Concept Problem 01/09 12:00:00 AM EST - 02/15/2021 12:00:00 AM EDT VANESSA ([facility]) [id number] Finding of urine substance level Finding of Urin e Substance Level Problem 01/09/2018 12:00:00 AM EST - 09/30/2020 12:00:00 AM JENNIFER MENDEZ ([facility]) [id number] SNOMED CT Concept SNOMED CT Concept Problem 01/09 12:00:00 AM EST - 02/15/2021 12:00:00 AM EDT VANESSA ([facility]) [id number] Finding of urine substance level Finding of Urin e Substance Level Problem 01/09/2018 12:00:00 AM EST - 09/30/2020 12:00:00 AM JENNIFER MENDEZ ([facility]) [id number] SNOMED CT Concept SNOMED CT Concept Problem 01/09 12:00:00 AM EST - 02/15/2021 12:00:00 AM EDT VANESSA ([facility]) [id number] Finding of urine substance level Finding of Urin e Substance Level Problem 01/09/2018 12:00:00 AM EST - 09/30/2020 12:00:00 AM JENNIFER MENDEZ ([facility]) [id number] SNOMED CT Concept SNOMED CT Concept Problem 01/09 12:00:00 AM EST - 02/15/2021 12:00:00 AM EDT VANESSA ([facility]) [id number] Finding of urine substance level Finding of Urin e Substance Level Problem 01/09/2018 12:00:00 AM EST - 09/30/2020 12:00:00 AM JENNIFER MENDEZ ([facility]) [id number] SNOMED CT Concept SNOMED CT Concept Problem 01/09 12:00:00 AM EST - 02/15/2021 12:00:00 AM EDT VANESSA ([facility]) [id number] Finding of urine substance level Finding of Urin e Substance Level Problem 01/09/2018 12:00:00 AM EST - 09/30/2020 12:00:00 AM JENNIFER MENDEZ ([facility]) [id number] SNOMED CT Concept SNOMED CT Concept Problem 01/09 12:00:00 AM EST - 02/15/2021 12:00:00 AM EDT VANESSA ([facility]) [id number] Finding of urine substance level Finding of Urin e Substance Level Problem 01/09/2018 12:00:00 AM EST - 09/30/2020 12:00:00 AM JENNIFER MENDEZ ([facility]) [id number] SNOMED CT Concept SNOMED CT Concept Problem 01/09 12:00:00 AM EST - 02/15/2021 12:00:00 AM EDT VANESSA ([facility]) [id number] Finding of urine substance level Finding of Urin e Substance Level Problem 01/09/2018 12:00:00 AM EST - 09/30/2020 12:00:00 AM JENNIFER MENDEZ ([facility]) [id number] Finding of urine substance level Finding of Urin e Substance Level Problem 01/09/2018 12:00:00 AM EST - 09/30/2020 12:00:00 AM JENNIFER MENDEZ ([facility]) [id number] SNOMED CT Concept SNOMED CT Concept Problem 01/09 12:00:00 AM EST - 02/15/2021 12:00:00 AM EDT VANESSA ([facility]) [id number] Finding of urine substance level Finding of Urin e Substance Level Problem 01/09/2018 12:00:00 AM EST - 09/30/2020 12:00:00 AM JENNIFER MENDEZ ([facility]) 772943255 SNOMED CT Concept SNOMED CT Concept Problem 01/09 12:00:00 AM EST - 02/15/2021 12:00:00 AM EDT VANESSA ([facility]) [id number] Finding of urine substance level Finding of Urin e Substance Level Problem 01/09/2018 12:00:00 AM EST - 09/30/2020 12:00:00 AM JENNIFER MENDEZ ([facility]) [id number] Renal function tests abnormal Renal Function Tests Abn ormal Problem 03/03/2016 12:00:00 AM EDT - 03/10/2021 12:00:00 AM EDT VANESSA ([facility]) 326401040 Renal function tests abnormal Renal Function Tests Abn ormal Problem 03/03/2016 12:00:00 AM EDT - 03/10/2021 12:00:00 AM EDT VANESSA ([facility]) 247536641 Renal function tests abnormal Renal Function Tests Abn ormal Problem 03/03/2016 12:00:00 AM EDT - 03/10/2021 12:00:00 AM EDT VANESSA ([facility]) 340277536 Renal function tests abnormal Renal Function Tests Abn ormal Problem 03/03/2016 12:00:00 AM EDT - 03/10/2021 12:00:00 AM EDT VANESSA ([facility]) [id number] Renal function tests abnormal Renal Function Tests Abn ormal Problem 03/03/2016 12:00:00 AM EDT - 03/10/2021 12:00:00 AM EDT VANESSA ([facility]) [id number] Renal function tests abnormal Renal Function Tests Abn ormal Problem 03/03/2016 12:00:00 AM EDT - 03/10/2021 12:00:00 AM EDT VANESSA ([facility]) [id number] Renal function tests abnormal Renal Function Tests Abn ormal Problem 03/03/2016 12:00:00 AM EDT - 03/10/2021 12:00:00 AM EDT VANES[facility] ([facility]) [id number] SNOMED CT Concept SNOMED CT Concept Problem 02/02 12:00:00 AM EDT - 02/15/2021 12:00:00 AM EDT [facility] ([facility]) [id number] Clinical finding Clinical Finding Problem 016 12:00:00 AM EDT - 02/15/2021 12:00:00 AM EDT [facility] ([facility]) [id number] SNOMED CT Concept SNOMED CT Concept Problem 02/02 12:00:00 AM EDT - 09/30/2020 12:00:00 AM EST [facility] ([facility]) [id number] Procedure by method Procedure by Method Problem 0 02/03/2016 12:00:00 AM EDT - 09/30/2020 12:00:00 AM EST [facility] ([facility]) 899732463 Difficulty passing urine Difficulty Passing Urine Prob allan 02/03/2016 12:00:00 AM EDT - 09/30/2020 12:00:00 AM EST [facility] ([facility]) [id number] SNOMED CT Concept SNOMED CT Concept Problem 02/02 12:00:00 AM EDT - 02/15/2021 12:00:00 AM EDT [facility] ([facility]) [id number] Clinical finding Clinical Finding Problem 016 12:00:00 AM EDT - 02/15/2021 12:00:00 AM EDT [facility] ([facility]) [id number] SNOMED CT Concept SNOMED CT Concept Problem 02/02 12:00:00 AM EDT - 09/30/2020 12:00:00 AM EST [facility] ([facility]) [id number] Procedure by method Procedure by Method Problem 0 02/03/2016 12:00:00 AM EDT - 09/30/2020 12:00:00 AM EST [facility] ([facility]) [id number] Difficulty passing urine Difficulty Passing Urine Prob allan 02/03/2016 12:00:00 AM EDT - 09/30/2020 12:00:00 AM EST [facility] ([facility]) [id number] SNOMED CT Concept SNOMED CT Concept Problem 02/02 12:00:00 AM EDT - 02/15/2021 12:00:00 AM EDT [facility] ([facility]) [id number] Clinical finding Clinical Finding Problem 016 12:00:00 AM EDT - 02/15/2021 12:00:00 AM EDT [facility] ([facility]) 671737418 SNOMED CT Concept SNOMED CT Concept Problem 02/02 12:00:00 AM EDT - 09/30/2020 12:00:00 AM EST [facility] ([facility]) [id number] Procedure by method Procedure by Method Problem 0 02/03/2016 12:00:00 AM EDT - 09/30/2020 12:00:00 AM EST [facility] ([facility]) 824831195 Difficulty passing urine Difficulty Passing Urine Prob allan 02/03/2016 12:00:00 AM EDT - 09/30/2020 12:00:00 AM EST [facility] ([facility]) 927088142 SNOMED CT Concept SNOMED CT Concept Problem 02/02 12:00:00 AM EDT - 02/15/2021 12:00:00 AM EDT [facility] ([facility]) [id number] Clinical finding Clinical Finding Problem 016 12:00:00 AM EDT - 02/15/2021 12:00:00 AM EDT [facility] ([facility]) [id number] SNOMED CT Concept SNOMED CT Concept Problem 02/02 12:00:00 AM EDT - 09/30/2020 12:00:00 AM EST [facility] ([facility]) [id number] Procedure by method Procedure by Method Problem 0 02/03/2016 12:00:00 AM EDT - 09/30/2020 12:00:00 AM EST [facility] ([facility]) [id number] Difficulty passing urine Difficulty Passing Urine Prob allan 02/03/2016 12:00:00 AM EDT - 09/30/2020 12:00:00 AM EST [facility] ([facility]) [id number] SNOMED CT Concept SNOMED CT Concept Problem 02/02 12:00:00 AM EDT - 02/15/2021 12:00:00 AM EDT [facility] ([facility]) [id number] Clinical finding Clinical Finding Problem 016 12:00:00 AM EDT - 02/15/2021 12:00:00 AM EDT [facility] ([facility]) 243325494 SNOMED CT Concept SNOMED CT Concept Problem 02/02 12:00:00 AM EDT - 09/30/2020 12:00:00 AM EST [facility] ([facility]) [id number] Procedure by method Procedure by Method Problem 0 02/03/2016 12:00:00 AM EDT - 09/30/2020 12:00:00 AM EST [facility] ([facility]) [id number] Difficulty passing urine Difficulty Passing Urine Prob allan 02/03/2016 12:00:00 AM EDT - 09/30/2020 12:00:00 AM EST [facility] ([facility]) [id number] SNOMED CT Concept SNOMED CT Concept Problem 02/02 12:00:00 AM EDT - 02/15/2021 12:00:00 AM EDT [facility] ([facility]) [id number] Clinical finding Clinical Finding Problem 016 12:00:00 AM EDT - 02/15/2021 12:00:00 AM EDT [facility] ([facility]) [id number] SNOMED CT Concept SNOMED CT Concept Problem 02/02 12:00:00 AM EDT - 09/30/2020 12:00:00 AM EST [facility] ([facility]) [id number] Procedure by method Procedure by Method Problem 0 02/03/2016 12:00:00 AM EDT - 09/30/2020 12:00:00 AM EST [facility] ([facility]) [id number] Difficulty passing urine Difficulty Passing Urine Prob allan 02/03/2016 12:00:00 AM EDT - 09/30/2020 12:00:00 AM EST [facility] ([facility]) 528256930 Difficulty passing urine Difficulty Passing Urine Prob allan 02/03/2016 12:00:00 AM EDT - 09/30/2020 12:00:00 AM EST [facility] ([facility]) [id number] SNOMED CT Concept SNOMED CT Concept Problem 02/02 12:00:00 AM EDT - 02/15/2021 12:00:00 AM EDT [facility] ([facility]) [id number] Clinical finding Clinical Finding Problem 016 12:00:00 AM EDT - 02/15/2021 12:00:00 AM EDT [facility] ([facility]) 860092921 SNOMED CT Concept SNOMED CT Concept Problem 02/02 12:00:00 AM EDT - 09/30/2020 12:00:00 AM EST [facility] ([facility]) 633696533 Procedure by method Procedure by Method Problem 0 02/03/2016 12:00:00 AM EDT - 09/30/2020 12:00:00 AM EST [facility] ([facility]) [id number] Difficulty passing urine Difficulty Passing Urine Prob allan 02/03/2016 12:00:00 AM EDT - 09/30/2020 12:00:00 AM EST [facility] ([facility]) [id number] SNOMED CT Concept SNOMED CT Concept Problem 02/02 12:00:00 AM EDT - 09/30/2020 12:00:00 AM EST [facility] ([facility]) [id number] Procedure by method Procedure by Method Problem 0 02/03/2016 12:00:00 AM EDT - 09/30/2020 12:00:00 AM EST [facility] ([facility]) [id number] Difficulty passing urine Difficulty Passing Urine Prob allan 02/03/2016 12:00:00 AM EDT - 09/30/2020 12:00:00 AM EST [facility] ([facility]) [id number] SNOMED CT Concept SNOMED CT Concept Problem 02/02 12:00:00 AM EDT - 02/15/2021 12:00:00 AM EDT [facility] ([facility]) [id number] Clinical finding Clinical Finding Problem 016 12:00:00 AM EDT - 02/15/2021 12:00:00 AM EDT [facility] ([facility]) 513562738 SNOMED CT Concept SNOMED CT Concept Problem 02/02 12:00:00 AM EDT - 09/30/2020 12:00:00 AM EST [facility] ([facility]) [id number] Procedure by method Procedure by Method Problem 0 02/03/2016 12:00:00 AM EDT - 09/30/2020 12:00:00 AM EST [facility] ([facility]) 757981742 Difficulty passing urine Difficulty Passing Urine Prob allan 02/03/2016 12:00:00 AM EDT - 09/30/2020 12:00:00 AM EST [facility] ([facility]) [id number] SNOMED CT Concept SNOMED CT Concept Problem 02/02 12:00:00 AM EDT - 02/15/2021 12:00:00 AM EDT [facility] ([facility]) [id number] Clinical finding Clinical Finding Problem 016 12:00:00 AM EDT - 02/15/2021 12:00:00 AM EDT [facility] ([facility]) 800791602 SNOMED CT Concept SNOMED CT Concept Problem 02/02 12:00:00 AM EDT - 09/30/2020 12:00:00 AM KAREEM MENDEZ ([facility]) [id number] Procedure by method Procedure by Method Problem 0 02/03/2016 12:00:00 AM EDT - 09/30/2020 12:00:00 AM KAREEM MENDEZ ([facility]) [id number] Difficulty passing urine Difficulty Passing Urine Prob allan 02/03/2016 12:00:00 AM EDT - 09/30/2020 12:00:00 AM KAREEM MENDEZ ([facility]) [id number] SNOMED CT Concept SNOMED CT Concept Problem 02/02 12:00:00 AM EDT - 02/15/2021 12:00:00 AM EDT [facility]ANES[facility] ([facility]) [id number] Clinical finding Clinical Finding Problem 016 12:00:00 AM EDT - 02/15/2021 12:00:00 AM EDT VANESSA ([facility]) [id number] SNOMED CT Concept SNOMED CT Concept Problem 02/02 12:00:00 AM EDT - 09/30/2020 12:00:00 AM KAREEM MENDEZ ([facility]) [id number] Procedure by method Procedure by Method Problem 0 02/03/2016 12:00:00 AM EDT - 09/30/2020 12:00:00 AM KAREEM MENDEZ ([facility]) Surgeries/Procedures Procedure Description Date Indications Data Source(s) OFFICE OUTPATIENT VISIT 25 MINUTES 09/07/2021 12:00:00 AM EDT [facility] ([facility]) Extended Individual Psychotherapy - 45 min 06/28/2021 12:00:00 AM EDT - 06/28/2021 12:00:00 AM EDT [facility] ([facility]) Extended Individual Psychotherapy - 45 min 12:00:00 AM EDT [facility] ([facility]) Telemed Diagnostic Eval 06/07/2021 12:00 :00 AM EDT - 06/07/2021 12:00:00 AM EDT [facility] ([facility]) Telemed Diagnostic Eval 06/07/2021 12:00:00 AM EDT [facility] ([facility]) OFFICE OUTPATIENT VISIT 25 MINUTES 05/10/2021 12:00:00 AM EDT [facility] ([facility] ) MRI SPINAL CANAL CERVICAL W/O CONTRAST MATRL 12:00:00 AM EDT MED[facility] ([facility] ) MRI SPINAL CANAL CERVICAL W/O CONTRAST MATRL 12:00:00 AM EDT [facility] ([facility] ) OFFICE OUTPATIENT VISIT 25 MINUTES 04/07/2021 12:00:00 AM EDT [facility] ([facility] ) OFFICE OUTPATIENT VISIT 15 MINUTES 04/06/2021 12:00:00 AM EDT MED[facility] ([facility]) Needle electromyography, each extremity, with related paraspinal areas, when performed, done with nerve conduction, amplitude and latency/velocity study; complete, five or more muscles studied, innervated by three or more nerves or four or more spinal levels (list separately in addition to the code for primary procedure). 03/28/2021 12:00:00 AM EDT MEDEN T ([facility], ) Needle Electromyography Non Extremity Done With Nerve Conduc tion 03/28/2021 12:00:00 AM EDT MEDENT ([facility] ) Needle Electromyography Non Extremity Done With Nerve Conduc tion 03/28/2021 12:00:00 AM EDT MEDENT ([facility] ) Nerve Conduction 11-12 Studies 03/28/2021 12:00:00 AM EDT MEDENT ([facility], ) OFFICE OUTPATIENT NEW 30 MINUTES 03/11/2021 12:00:00 A M EDT MEDENT ([facility]) Results ID Date Data Source [id number] 09/12/2021 09:30:00 AM EDT MEDENT ([facility]) Name Value Range Interpretation Code Description Data Sandra rce(s) Supporting Document(s) Laboratory test finding (navigational concept) Laboratory test result MEDENT ([facility]) Sars-CoV-2, Abhinav Laboratory test result MEDENT ([facility]) This nucleic acid amplification test was developed and its performance characteristics determined by [employer]. Nucleic acid amplification tests include RT-PCR and TMA. This test has not been FDA cleared or approved. This test has been authorized by FDA under an Emergency Use Authorization (EUA). This test is only authorized for the duration of time the declaration that circumstances exist justifying the authorization of the emergency use of in vitro diagnostic tests for detection of SARS-CoV-2 virus and/or diagnosis of COVID-19 infection under section 564(b)(1) of the Act, 21 U.S.C. 360bbb-3(b) (1), unless the authorizatio n is terminated or revoked sooner. When diagnostic testing is negative, the possibility of a false negative result should be considered in the context of a patient's recent exposures and the presence of clinical signs and symptoms consistent with COVID-19. An individual without symptoms of COVID-19 and who is not shedding SARS-CoV-2 virus would expect to have a negative (not detected) result in this assay. ID Date Data Source [id number] 09/14/2021 06:27:00 AM EDT [facility] Name Value Range Interpretation Code Description Data Sandra rce(s) Supporting Document(s) SARS-CoV-2, ABHINAV Not Detected Not Detected [facility] This nucleic acid amplification test was developed and its performancecharacteristics determined by [employer]. Nucleic acidamplification tests include RT-PCR and TMA. This test has not beenFDA cleared or approved. This test has been authorized by FDA underan Emergency Use Authorization (EUA). This test is only authorizedfor the duration of time the declaration that circumstances existjustifying the authorization of the emergency use of in vitrodiagnostic tests for detection of SARS-CoV-2 virus and/or diagnosisof COVID-19 infection under section 564(b)(1) of the Act, 21 U.S.C.360bbb-3(b) (1), unless the authorization is terminated or revokedsooner.When diagnostic testing is negative, the possibility of a falsenegative result should be considered in the context of a patient'srecent exposures and the presence of clinical signs and symptomsconsistent with COVID- 19. An individual without symptoms of COVID-19and who is not shedding SARS-CoV-2 virus would expect to have anegative (not detected) result in this assay. SARS-CoV-2, ABHINAV 2 DAY TAT Performed [facility] ID Date Data Source [id number] 09/07/2021 08:50:00 AM EDT MEDENT ([facility]) Name Value Range Interpretation Code Description Data Sandra rce(s) Supporting Document(s) Color of Urine Laboratory test result MEDENT ([facility]) Spec [place] 1.010 1.001-1.030 MEDENT ([facility]) pH of Urine by Test strip 5 5-9 MEDE NT ([facility]) Appearance of Urine Laboratory test result MEDENT ([facility]) Leukocytes Laboratory test result MEDENT ([facility]) Nitrate [Presence] in Urine Laboratory test result MEDENT ([facility]) Protein [Presence] in Urine by Test strip Laboratory test result MEDENT ([facility]) Ketones [Presence] in Urine by Test strip Laboratory test result MEDENT ([facility]) Urobilinogen Laboratory test result MEDENT ([facility]) Inhouse Glucose 1000 Above high normal ME DENT ([facility]) Blood type and Indirect antibody screen panel - Blood 250 Above high normal MEDENT ([facility]) Bilirubin.total [Presence] in Urine by Test strip Laboratory test res ult MEDENT ([facility]) ID Date Data Source [id number] 07/06/2021 12:00:00 AM EDT [facility]) Name Value Range Interpretation Code Description Data Sandra rce(s) Supporting Document(s) Bacteria identified in Urine by Culture Reflexive Urine Culture [facility]) ID Date Data Source [id number] 07/06/2021 12:00:00 AM EDT [facility]) Name Value Range Interpretation Code Description Data Sandra rce(s) Supporting Document(s) Specific gravity of Urine by Test strip 1.001-1.035 A eddie high normal Specific [place] ([facility]) Appearance of Urine clear clear Appearance ATHEN A ([facility]) Color of Urine yellow yellow Color VANESSA (No [facility]) Glucose [Presence] in Urine by Test strip 3+ negati ve Abnormal (applies to non- numeric results) Glucose VANESSA ([facility]) Bilirubin.total [Presence] in Urine by Test strip negative negative Bilirubin VANESSA ([facility]) Ketones [Presence] in Urine by Test strip negative negative Ketones VANESSA ([facility]) pH of Urine by Test strip 5.0-8.0 Ph VANESSA ([facility]) Protein [Presence] in Urine by Test strip negative negative Protein VANESSA ([facility]) Hemoglobin [Presence] in Urine by Test strip negative negative Occult Blood VANESSA ([facility]) Nitrite [Presence] in Urine by Test strip negative negative Nitrite VANESSA ([facility]) Leukocyte esterase [Presence] in Urine by Test strip negative n egative Leukocyte Esterase VANESSA ([facility]) Bacteria [#/area] in Urine sediment by Microscopy high power field none seen none seen Bacteria VANESSA ([facility]) Epithelial cells.squamous [#/area] in Ur ine sediment by Microscopy high power field none seen < or = 5 Squamous Epithelial Cells AT MAG[facility] ([facility]) Erythrocytes [#/area] in Urine sediment by Microscopy high power field none seen < or = 2 Rbc VANESSA ([facility]) Leukocytes [#/area] in Urine sediment by Microscopy high pow er field none seen < or = 5 Wbc VANESSA ([facility]) Hyaline casts [#/area] in Urine sediment by Microscopy low power field none seen none seen Hyaline Cast VANESSA ([facility]) ID Date Data Source [id number] 07/06/2021 12:00:00 AM EDT VANESSA ([facility]) Name Value Range Interpretation Code Description Data Sandra rce(s) Supporting Document(s) Urea nitrogen [Mass/volume] in Serum or Plasma 15 mg/dL 7-25 Urea Nitrogen (BUN) VANESSA ([facility]) Glucose [Mass/volume] in Serum or Plasma 308 mg/dL 65-99 Above high normal Glucose VANESSA ([facility]) Creatinine [Mass/volume] in Serum or Plasma 0.93 mg/dL 0.70-1.33 Creatinine VANESSA ([facility]) Glomerular filtration rate/1.73 sq M.pre dicted among non-blacks [Volume Rate/Area] in Serum, Plasma or Blood by Creatinine-based formula (CKD-EPI) 95 mL/min/1.73m2 > or = 60 eGFR Non-afr. [place] Citizen VANESSA ([facility]) Glomerular filtration rate/1.73 sq M.pre dicted among blacks [Volume Rate/Area] in Serum, Plasma or Blood by Creatinine-based formula (CKD-EPI) 110 mL/min/1.73m2 > or = 60 eGFR VANESSA (No [facility]) Sodium [Moles/volume] in Serum or Plasma 135 mmol/L 135-146 Sodium VANESSA ([facility]) Chloride [Moles/volume] in Serum or Plasma 102 mmol/L 98-110 Chloride VANESSA ([facility]) Urea nitrogen/Creatinine [Mass Ratio] in Serum or Plasma not applic able 6-22 BUN/creatinine Ratio VANESSA ([facility]) Potassium [Moles/volume] in Serum or Plasma 4.0 mmol/L 3.5-5.3 Potassium VANESSA ([facility]) Carbon dioxide, total [Moles/volume] in Serum or Plasma 27 mmol/L 20-32 Carbon Dioxide [place] ([facility]) Protein [Mass/volume] in Serum or Plasma 6.8 g/dL 6.1-8.1 [facility], [facility] Calcium [Mass/volume] in Serum or Plasma 8.9 mg/dL 8.6-10.3 Calcium [facility]) Globulin [Mass/volume] in Serum by calculation 2.7 g/dL_(calc) 1.9- 3.7 Globulin [place] ([facility]) Albumin [Mass/volume] in Serum or Plasma 4.1 g/dL 3.6-5.1 Albumin [facility]) Bilirubin.total [Mass/volume] in Serum or Plasma 0.9 mg/dL 0.2-1 .2 Bilirubin, [facility] Albumin/Globulin [Mass Ratio] in Serum or Plasma 1.5 (calc) 1.0-2 .5 Albumin/globulin Ratio VANESSA ([facility]) Alanine aminotransferase [Enzymatic activity/volume] in Seru m or Plasma 15 U/L 9-46 Alt VANESSA ([facility]) Aspartate aminotransferase [Enzymatic activity/volume] in Se rum or Plasma 9 U/L 10-35 Below low normal Ast VANESSA ([facility]) Alkaline phosphatase [Enzymatic activity/volume] in Serum or Plasma 73 U/L 35-144 Alkaline Phosphatase VANESSA ([facility]) ID Date Data Source [id number] 07/06/2021 12:00:00 AM EDT [facility] Name Value Range Interpretation Code Description Data Sandra rce(s) Supporting Document(s) Cholesterol in HDL [Mass/volume] in Serum or Plasma 38 mg/dL > or = 40 Below low normal HDL Cholesterol VANESSA ([facility]) Cholesterol [Mass/volume] in Serum or Plasma 114 mg/dL <200 Cholesterol, Total VANESSA ([facility]) Cholesterol.total/Cholesterol in HDL [Mass Ratio] in Serum o r Plasma 3.0 (calc) <5.0 Chol/hdlc Ratio VANESSA ([facility]) Cholesterol in LDL [Mass/volume] in Serum or Plasma by calculation 49 mg/dL_(calc) LDL-cholesterol VANESSA ([facility]) Triglyceride [Mass/volume] in Serum or Plasma 208 mg/dL <150 Above high normal Triglycerides VANESSA ([facility]) Cholesterol non HDL [Mass/volume] in Serum or Plasma 76 mg/dL_(calc ) <130 Non HDL Cholesterol [facility] ID Date Data Source [id number] 07/06/2021 12:00:00 AM EDT [facility] Name Value Range Interpretation Code Description Data Sandra rce(s) Supporting Document(s) Bacteria identified in Urine by Culture Reflexive Urine Culture [facility] ID Date Data Source [id number] 07/06/2021 12:00:00 AM EDT VANESSA ([facility]) Name Value Range Interpretation Code Description Data Sandra rce(s) Supporting Document(s) Color of Urine yellow yellow Color VANESSA ([facility]) Appearance of Urine clear clear Appearance ATHEN A ([facility]) Glucose [Presence] in Urine by Test strip 3+ negati ve Abnormal (applies to non- numeric results) Glucose V[facility]ESSA ([facility]) Specific gravity of Urine by Test strip 1.001-1.035 A eddie high normal Specific [place] VANESSA ([facility]) pH of Urine by Test strip 5.0-8.0 Ph VANESSA ([facility]) Bilirubin.total [Presence] in Urine by Test strip negative negative Bilirubin VANESSA ([facility]) Protein [Presence] in Urine by Test strip negative negative Protein VANESSA ([facility]) Hemoglobin [Presence] in Urine by Test strip negative negative Occult Blood VANESSA ([facility]) Ketones [Presence] in Urine by Test strip negative negative Ketones VANESSA ([facility]) Nitrite [Presence] in Urine by Test strip negative negative Nitrite VANESSA ([facility]) Leukocytes [#/area] in Urine sediment by Microscopy high pow er field none seen < or = 5 Wbc VANESSA ([facility]) Leukocyte esterase [Presence] in Urine by Test strip negative n egative Leukocyte Esterase VANESSA ([facility]) Epithelial cells.squamous [#/area] in Ur ine sediment by Microscopy high power field none seen < or = 5 Squamous Epithelial Cells AT [facility] ([facility]) Hyaline casts [#/area] in Urine sediment by Microscopy low power field none seen none seen Hyaline Cast VANESSA ([facility]) Bacteria [#/area] in Urine sediment by Microscopy high power field none seen none seen Bacteria VANESSA ([facility]) Erythrocytes [#/area] in Urine sediment by Microscopy high power field none seen < or = 2 Rbc VANESSA ([facility]) ID Date Data Source [id number] 07/06/2021 12:00:00 AM EDT VANESSA ([facility]) Name Value Range Interpretation Code Description Data Sandra rce(s) Supporting Document(s) Glucose [Mass/volume] in Serum or Plasma 308 mg/dL 65-99 Above high normal Glucose VANESSA ([facility]) Urea nitrogen [Mass/volume] in Serum or Plasma 15 mg/dL 7-25 Urea Nitrogen (BUN) VANESSA ([facility]) Urea nitrogen/Creatinine [Mass Ratio] in Serum or Plasma not applic able 6-22 BUN/creatinine Ratio VANESSA ([facility]) Creatinine [Mass/volume] in Serum or Plasma 0.93 mg/dL 0.70-1.33 Creatinine VANESSA ([facility]) Glomerular filtration rate/1.73 sq M.pre dicted among non-blacks [Volume Rate/Area] in Serum, Plasma or Blood by Creatinine-based formula (CKD-EPI) 95 mL/min/1.73m2 > or = 60 eGFR Non-afr. [place] Citizen VANESSA ([facility]) Glomerular filtration rate/1.73 sq M.pre dicted among blacks [Volume Rate/Area] in Serum, Plasma or Blood by Creatinine-based formula (CKD-EPI) 110 mL/min/1.73m2 > or = 60 eGFR VANESSA ([facility]) Chloride [Moles/volume] in Serum or Plasma 102 mmol/L 98-110 Chloride VANESSA ([facility]) Potassium [Moles/volume] in Serum or Plasma 4.0 mmol/L 3.5-5.3 Potassium VANESSA ([facility]) Sodium [Moles/volume] in Serum or Plasma 135 mmol/L 135-146 Sodium VANESSA ([facility]) Carbon dioxide, total [Moles/volume] in Serum or Plasma 27 mmol/L 20-32 Carbon Dioxide VANESSA ([facility]) Calcium [Mass/volume] in Serum or Plasma 8.9 mg/dL 8.6-10.3 Calcium VANESSA ([facility]) Albumin [Mass/volume] in Serum or Plasma 4.1 g/dL 3.6-5.1 Albumin VANESSA ([facility]) Globulin [Mass/volume] in Serum by calculation 2.7 g/dL_(calc) 1.9- 3.7 Globulin VANESSA ([facility]) Protein [Mass/volume] in Serum or Plasma 6.8 g/dL 6.1-8.1 Protein, Total VANESSA ([facility]) Bilirubin.total [Mass/volume] in Serum or Plasma 0.9 mg/dL 0.2-1 .2 Bilirubin, Total VANESSA ([facility]) Albumin/Globulin [Mass Ratio] in Serum or Plasma 1.5 (calc) 1.0-2 .5 Albumin/globulin Ratio VANESSA ([facility]) Alkaline phosphatase [Enzymatic activity/volume] in Serum or Plasma 73 U/L 35-144 Alkaline Phosphatase VANESSA ([facility]) Aspartate aminotransferase [Enzymatic activity/volume] in Se rum or Plasma 9 U/L 10-35 Below low normal Ast VANESSA ([facility]) Alanine aminotransferase [Enzymatic activity/volume] in Seru m or Plasma 15 U/L 9-46 Alt VANESSA ([facility]) ID Date Data Source [id number] 07/06/2021 12:00:00 AM EDT [place] ([facility]) Name Value Range Interpretation Code Description Data Sandra rce(s) Supporting Document(s) Cholesterol in HDL [Mass/volume] in Serum or Plasma 38 mg/dL > or = 40 Below low normal HDL Cholesterol V[facility]ESSA ([facility]) Triglyceride [Mass/volume] in Serum or Plasma 208 mg/dL <150 Above high normal Triglycerides VANESSA ([facility]) Cholesterol [Mass/volume] in Serum or Plasma 114 mg/dL <200 Cholesterol, Total VANESSA ([facility]) Cholesterol in LDL [Mass/volume] in Serum or Plasma by calculation 49 mg/dL_(calc) LDL-cholesterol VANESSA ([facility]) Cholesterol.total/Cholesterol in HDL [Mass Ratio] in Serum o r Plasma 3.0 (calc) <5.0 Chol/hdlc Ratio VANESSA ([facility]) Cholesterol non HDL [Mass/volume] in Serum or Plasma 76 mg/dL_(calc ) <130 Non HDL Cholesterol [facility]) ID Date Data Source [id number] 06/28/2021 11:45:00 AM EDT [facility]) Name Value Range Interpretation Code Description Data Sandra rce(s) Supporting Document(s) Hemoglobin A1c/Hemoglobin.total in Blood 10.4 % Abnormal (applies to non- numeric results) Hba1C VANESSA ([facility]) ID Date Data Source [id number] 06/28/2021 11:45:00 AM EDT [facility]) Name Value Range Interpretation Code Description Data Sandra rce(s) Supporting Document(s) Hemoglobin A1c/Hemoglobin.total in Blood 10.4 % Abnormal (applies to non- numeric results) Hba1C [place] ([facility]) ID Date Data Source [id number] 06/28/2021 11:45:00 AM EDT [facility]) Name Value Range Interpretation Code Description Data Sandra rce(s) Supporting Document(s) Hemoglobin A1c/Hemoglobin.total in Blood 10.4 % Abnormal (applies to non- numeric results) Hba1C [place] ([facility]) ID Date Data Source [id number] 06/28/2021 11:45:00 AM EDT [facility]) Name Value Range Interpretation Code Description Data Sandra rce(s) Supporting Document(s) Hemoglobin A1c/Hemoglobin.total in Blood 10.4 % Abnormal (applies to non- numeric results) Hba1C VANESSA ([facility]) ID Date Data Source [id number] 04/25/2021 08:05:00 AM EDT [facility]) Name Value Range Interpretation Code Description Data Sandra rce(s) Supporting Document(s) blood urea nitrogen 20 mg/dL 7-18 Above high normal Blood Ure a Nitrogen [place] ([facility]) glucose, fasting 382 mg/dL 70-100 Above high normal Glucose, Fas ting VANESSA ([facility]) creatinine for GFR 1.19 mg/dL 0.70-1.30 Creatinine for GF R VANESSA ([facility]) sodium level 135 mEq/L 136-145 Below low normal Sodium Level ATHE NA ([facility]) glomerular filtration rate > 60.0 >56 Glomerula r Filtration Rate VANESSA ([facility]) chloride level 100 mEq/L 98-107 Chloride Level VANESSA ([facility]) potassium serum 4.5 mEq/L 3.5-5.1 Potassium Serum ATHE NA ([facility]) anion gap 8 mEq/L 8-16 Anion Gap VANESSA ([facility]) carbon dioxide level 27 mEq/L 21-32 Carbon Dioxide Level VANESSA ([facility]) AST/SGOT 9 U/L 7-37 AST/SGOT VANESSA ([facility]) calcium level 9.3 mg/dL 8.5-10.1 Calcium Level VANESSA ( [facility]) ALT/SGPT 26 U/L 12-78 ALT/SGPT VANESSA ([facility]) alkaline phosphatase 71 U/L 45-117 Alkaline Phosph atase VANESSA ([facility]) bilirubin,total 1.0 mg/dL 0.2-1.0 Bilirubin,total ATHE ([facility]) albumin 3.9 gm/dL 3.2-5.2 Albumin VANESSA ([facility]) total protein 7.6 gm/dL 6.4-8.2 Total Protein VANESSA ( [facility]) albumin/globulin ratio Albumin/globu jose l Ratio VANESSA ([facility]) ID Date Data Source [id number] 04/25/2021 08:05:00 AM EDT VANESSA ([facility]) Name Value Range Interpretation Code Description Data Sandra rce(s) Supporting Document(s) blood urea nitrogen 20 mg/dL 7-18 Above high normal Blood Ure a Nitrogen VANESSA ([facility]) glucose, fasting 382 mg/dL 70-100 Above high normal Glucose, Fas ting VANESSA ([facility]) creatinine for GFR 1.19 mg/dL 0.70-1.30 Creatinine for GF R VANESSA ([facility]) glomerular filtration rate > 60.0 >56 Glomerula r Filtration Rate VANESSA ([facility]) sodium level 135 mEq/L 136-145 Below low normal Sodium Level ATHE NA ([facility]) chloride level 100 mEq/L 98-107 Chloride Level VANESSA ([facility]) potassium serum 4.5 mEq/L 3.5-5.1 Potassium Serum ATHE NA ([facility]) carbon dioxide level 27 mEq/L 21-32 Carbon Dioxide Level VANESSA ([facility]) anion gap 8 mEq/L 8-16 Anion Gap VANESSA ([facility]) AST/SGOT 9 U/L 7-37 AST/SGOT VANESSA ([facility]) calcium level 9.3 mg/dL 8.5-10.1 Calcium Level VANESSA ( [facility]) ALT/SGPT 26 U/L 12-78 ALT/SGPT VANESSA ([facility]) alkaline phosphatase 71 U/L 45-117 Alkaline Phosph atase VANESSA ([facility]) bilirubin,total 1.0 mg/dL 0.2-1.0 Bilirubin,total ATHE ([facility]) albumin 3.9 gm/dL 3.2-5.2 Albumin VANESSA ([facility]) total protein 7.6 gm/dL 6.4-8.2 Total Protein VANESSA ( [facility]) albumin/globulin ratio Albumin/globu jose l Ratio VANESSA ([facility]) ID Date Data Source [id number] 04/25/2021 08:05:00 AM EDT [place] ([facility]) Name Value Range Interpretation Code Description Data Sandra rce(s) Supporting Document(s) glucose, fasting 382 mg/dL 70-100 Above high normal Glucose, Fas ting [place] ([facility]) blood urea nitrogen 20 mg/dL 7-18 Above high normal Blood Ure a Nitrogen VANESSA ([facility]) glomerular filtration rate > 60.0 >56 Glomerula r Filtration Rate VANESSA ([facility]) creatinine for GFR 1.19 mg/dL 0.70-1.30 Creatinine for GF R VANESSA ([facility]) potassium serum 4.5 mEq/L 3.5-5.1 Potassium Serum ATHE ([facility]) sodium level 135 mEq/L 136-145 Below low normal Sodium Level ATHE ([facility]) anion gap 8 mEq/L 8-16 Anion Gap VANESSA ([facility]) carbon dioxide level 27 mEq/L 21-32 Carbon Dioxide Level VANESSA ([facility]) chloride level 100 mEq/L 98-107 Chloride Level VANESSA ([facility]) AST/SGOT 9 U/L 7-37 AST/SGOT [facility] ([facility]) calcium level 9.3 mg/dL 8.5-10.1 Calcium Level VANESSA ( [facility]) alkaline phosphatase 71 U/L 45-117 Alkaline Phosph atase VANESSA ([facility]) bilirubin,total 1.0 mg/dL 0.2-1.0 Bilirubin,total ATHE ([facility]) ALT/SGPT 26 U/L 12-78 ALT/SGPT V[facility]ESSA ([facility]) total protein 7.6 gm/dL 6.4-8.2 Total Protein VANESSA ( [facility]) albumin 3.9 gm/dL 3.2-5.2 Albumin VANESSA ([facility]) albumin/globulin ratio Albumin/globu jose l Ratio VANESSA ([facility] [facility] ID Date Data Source [id number] 04/25/2021 08:05:00 AM EDT [facility] ([facility]) Name Value Range Interpretation Code Description Data Sandra rce(s) Supporting Document(s) glucose, fasting 382 mg/dL 70-100 Above high normal Glucose, Fas ting [facility] ([facility]) glomerular filtration rate > 60.0 >56 Glomerula r Filtration Rate [facility] ([facility]) creatinine for GFR 1.19 mg/dL 0.70-1.30 Creatinine for GF R [facility] ([facility]) blood urea nitrogen 20 mg/dL 7-18 Above high normal Blood Ure a Nitrogen [facility] ([facility]) sodium level 135 mEq/L 136-145 Below low normal Sodium Level ATHE NA ([facility]) chloride level 100 mEq/L 98-107 Chloride Level [facility] ([facility]) potassium serum 4.5 mEq/L 3.5-5.1 Potassium Serum AT[facility] NA ([facility]) carbon dioxide level 27 mEq/L 21-32 Carbon Dioxide Level [facility] ([facility]) anion gap 8 mEq/L 8-16 Anion Gap [facility] ([facility]) calcium level 9.3 mg/dL 8.5-10.1 Calcium Level [facility] ( [facility]) ALT/SGPT 26 U/L 12-78 ALT/SGPT [facility] ([facility]) AST/SGOT 9 U/L 7-37 AST/SGOT [place] ([facility]) total protein 7.6 gm/dL 6.4-8.2 Total Protein [facility] ( [facility]) alkaline phosphatase 71 U/L 45-117 Alkaline Phosph atase [facility] ([facility]) bilirubin,total 1.0 mg/dL 0.2-1.0 Bilirubin,total [facility] ([facility]) albumin/globulin ratio Albumin/globu jose l Ratio [facility] ([facility]) albumin 3.9 gm/dL 3.2-5.2 Albumin [facility] ([facility]) ID Date Data Source [id number] 04/25/2021 08:05:00 AM EDT [place] ([facility]) Name Value Range Interpretation Code Description Data Sandra rce(s) Supporting Document(s) creatinine for GFR 1.19 mg/dL 0.70-1.30 Creatinine for GF R [facility] ([facility]) glucose, fasting 382 mg/dL 70-100 Above high normal Glucose, Fas ting [facility] ([facility]) blood urea nitrogen 20 mg/dL 7-18 Above high normal Blood Ure a Nitrogen [facility] ([facility]) glomerular filtration rate > 60.0 >56 Glomerula r Filtration Rate [facility] ([facility]) sodium level 135 mEq/L 136-145 Below low normal Sodium Level AT[facility] NA ([facility]) carbon dioxide level 27 mEq/L 21-32 Carbon Dioxide Level [facility] ([facility]) potassium serum 4.5 mEq/L 3.5-5.1 Potassium Serum AT[facility] NA ([facility]) chloride level 100 mEq/L 98-107 Chloride Level [facility] ([facility]) anion gap 8 mEq/L 8-16 Anion Gap [facility] ([facility]) calcium level 9.3 mg/dL 8.5-10.1 Calcium Level [facility] ( [facility]) alkaline phosphatase 71 U/L 45-117 Alkaline Phosph atase [facility] ([facility]) ALT/SGPT 26 U/L 12-78 ALT/SGPT [facility] ([facility]) AST/SGOT 9 U/L 7-37 AST/SGOT [facility] ([facility]) total protein 7.6 gm/dL 6.4-8.2 Total Protein [facility] ( [facility]) bilirubin,total 1.0 mg/dL 0.2-1.0 Bilirubin,total [facility] ([facility]) albumin 3.9 gm/dL 3.2-5.2 Albumin [facility] ([facility]) albumin/globulin ratio Albumin/globu jose l Ratio [facility] ([facility]) ID Date Data Source [id number] 04/07/2021 04:34:00 PM EDT [place] ([facility]) Name Value Range Interpretation Code Description Data Sandra rce(s) Supporting Document(s) antinuclear antibodies direct negative negative Antinu clear Antibodies Direct [facility] ([facility]) ID Date Data Source [id number] 04/07/2021 04:34:00 PM EDT [facility] ([facility]) Name Value Range Interpretation Code Description Data Sandra rce(s) Supporting Document(s) vitamin B6,pyridoxal phosphate 13.4 ug/L 5.3-46.7 Vitamin B6,Pyridoxal Phosphate [facility] ([facility]) ID Date Data Source [id number] 04/07/2021 04:34:00 PM EDT [facility]) Name Value Range Interpretation Code Description Data Sandra rce(s) Supporting Document(s) vitamin B1 level whole blood 134.8 nmol/L 66.5-200.0 Vitamin B1 Level Whole Blood [facility] ([facility]) ID Date Data Source [id number] 04/07/2021 04:34:00 [facility] Name Value Range Interpretation Code Description Data Sandra rce(s) Supporting Document(s) vitamin E(alpha tocopherol) 6.2 mg/L 7.0-25.1 Below low nor mal Vitamin E(alpha Tocopherol) [place] ([facility]) vitamin E(gamma tocopherol) 0.7 mg/L 0.5-5.5 Vitamin E(gamma Tocopherol) [facility]) ID Date Data Source [id number] 04/07/2021 04:34:00 PM EDT [facility]) Name Value Range Interpretation Code Description Data Sandra rce(s) Supporting Document(s) rheumatoid factor quant < 10.0 <15.0 Rheumatoid F actor Quant [facility] ID Date Data Source [id number] 04/07/2021 04:34:00 PM EDT [facility] Name Value Range Interpretation Code Description Data Sandra rce(s) Supporting Document(s) folate 17.7 NG/mL Folate [facility] ([facility]) vitamin B12 level 493 pg/mL Vitamin B12 Level [facility]) ID Date Data Source [id number] 04/07/2021 04:34:00 PM EDT [facility]) Name Value Range Interpretation Code Description Data Sandra rce(s) Supporting Document(s) palrh-2-ebhejlll % 3.4 % 2.9-4.9 Yrgys-2-Rzgjuhfh % [place] ([facility]) albumin % 60.8 % 55.8-66.1 Albumin % [place] ([facility]) wgld-1-sumirlabd % 5.5 % 4.7-7.2 Cwaw-7-Ednrmkspe % [place] ([facility]) cjqov-7-wgvwbarbw % 10.3 % 7.1-11.8 Vvblm-1-Glxaaaqz s % [place] ([facility]) gamma globulin % 14.3 % 11.1-18.8 Gamma Globulin % [facility]) mnzl-7-lzlrkalbw % 5.7 % 3.2-6.5 Qwam-8-Qgxecjuox % [place] ([facility]) ertuz-0-xyaxrzygb 0.75 gm/dL 0.42-0.99 Pljtw-6-Lhulwloig [place] ([facility]) emhdh-9-qwmbthqjw 0.25 gm/dL 0.17-0.41 Pmepj-0-Hnqyrybvh [place] ([facility]) albumin 4.44 gm/dL 3.29-5.55 Albumin [place] ([facility]) oigb-6-wipwvfdnm 0.40 gm/dL 0.28-0.60 Ybvt-4-Rjshakocr AT [facility]) vzns-0-jsxbltuia 0.42 gm/dL 0.19-0.55 Qipe-2-Sxlmdmubf AT [facility]) gamma globulins 1.04 gm/dL 0.65-1.58 Gamma Globulins [facility] total protein 7.3 gm/dL 6.4-8.2 Total Protein [place] ( [facility]) spep pathologist review rev'd by Anna kumar Spep Pathologist Review [place] ([facility]) spep interpretation see comment Spep Interpreta tion [place] ([facility]) ID Date Data Source [id number] 04/07/2021 04:34:00 PM EDT [place] ([facility]) Name Value Range Interpretation Code Description Data Sandra rce(s) Supporting Document(s) PTT lupus type anticoag screen 0-1.2 PTT L upus Type Anticoag Screen [facility] ([facility]) ID Date Data Source [id number] 04/07/2021 04:34:00 PM EDT [place] ([facility]) Name Value Range Interpretation Code Description Data Sandra rce(s) Supporting Document(s) erythrocyte sedimentation rate 3 mm/HR 0-20 Eryth rocyte Sedimentation Rate [place] ([facility]) ID Date Data Source [id number] 04/07/2021 04:34:00 PM EDT [facility]) Name Value Range Interpretation Code Description Data Sandra rce(s) Supporting Document(s) Hemoglobin A1c/Hemoglobin.total in Blood 11.3 % Hemoglobin a1C [place] ([facility]) estimated average glucose 278 mg/dL 60-110 Above high norm al Estimated Average Glucose [facility]) ID Date Data Source [id number] 04/07/2021 04:34:00 PM EDT [facility]) Name Value Range Interpretation Code Description Data Sandra rce(s) Supporting Document(s) antinuclear antibodies direct negative negative Antinu clear Antibodies Direct [facility]) ID Date Data Source [id number] 04/07/2021 04:34:00 PM EDT [facility]) Name Value Range Interpretation Code Description Data Sandra rce(s) Supporting Document(s) vitamin B6,pyridoxal phosphate 13.4 ug/L 5.3-46.7 Vitamin B6,Pyridoxal Phosphate [facility]) ID Date Data Source [id number] 04/07/2021 04:34:00 PM EDT [facility]) Name Value Range Interpretation Code Description Data Sandra rce(s) Supporting Document(s) vitamin B1 level whole blood 134.8 nmol/L 66.5-200.0 Vitamin B1 Level Whole Blood [place] ([facility]) ID Date Data Source [id number] 04/07/2021 04:34:00 PM EDT [facility]) Name Value Range Interpretation Code Description Data Sandra rce(s) Supporting Document(s) vitamin E(alpha tocopherol) 6.2 mg/L 7.0-25.1 Below low nor mal Vitamin E(alpha Tocopherol) [place] ([facility]) vitamin E(gamma tocopherol) 0.7 mg/L 0.5-5.5 Vitamin E(gamma Tocopherol) [facility]) ID Date Data Source [id number] 04/07/2021 04:34:00 PM EDT [facility]) Name Value Range Interpretation Code Description Data Sandra rce(s) Supporting Document(s) rheumatoid factor quant < 10.0 <15.0 Rheumatoid F actor Quant [facility]) ID Date Data Source [id number] 04/07/2021 04:34:00 PM EDT [facility]) Name Value Range Interpretation Code Description Data Sandra rce(s) Supporting Document(s) vitamin B12 level 493 pg/mL Vitamin B12 Level [facility]) folate 17.7 NG/mL Folate [facility] ([facility]) ID Date Data Source [id number] 04/07/2021 04:34:00 PM EDT [facility]) Name Value Range Interpretation Code Description Data Sandra rce(s) Supporting Document(s) albumin % 60.8 % 55.8-66.1 Albumin % [place] ([facility]) ckmua-7-ycwgdhzh % 3.4 % 2.9-4.9 Edwwd-8-Ownkytug % [place] ([facility]) iary-2-fzqfsieaa % 5.5 % 4.7-7.2 Zmcw-6-Yaupcvgca % [place] ([facility]) bfszn-8-pfplreyae % 10.3 % 7.1-11.8 Hkcpm-8-Hrhoajgo s % [place] ([facility]) gamma globulin % 14.3 % 11.1-18.8 Gamma Globulin % AT [facility]) nuwf-6-myxjmheqg % 5.7 % 3.2-6.5 Coct-2-Uhxetcfvu % [place] ([facility]) kwewe-0-xbqhwhzru 0.25 gm/dL 0.17-0.41 Tlkha-1-Ufintrcnq [place] ([facility]) albumin 4.44 gm/dL 3.29-5.55 Albumin [place] ([facility]) ufiyz-6-eixqukhdj 0.75 gm/dL 0.42-0.99 Hywsm-7-Gizrwasql [place] ([facility]) qlid-0-abfryhkkm 0.40 gm/dL 0.28-0.60 Mupd-9-Kqsnbridn AT [facility] ([facility]) vnjs-1-gjxyuorol 0.42 gm/dL 0.19-0.55 Ogvv-2-Lftgkbvmb AT [facility] ([facility]) gamma globulins 1.04 gm/dL 0.65-1.58 Gamma Globulins [facility] ([facility]) spep interpretation see comment Spep Interpreta tion [facility] ([facility]) total protein 7.3 gm/dL 6.4-8.2 Total Protein [place] ( [facility]) spep pathologist review rev'd by Anna kumar Spep Pathologist Review [place] ([facility]) ID Date Data Source [id number] 04/07/2021 04:34:00 PM EDT [place] ([facility]) Name Value Range Interpretation Code Description Data Sandra rce(s) Supporting Document(s) PTT lupus type anticoag screen 0-1.2 PTT L upus Type Anticoag Screen [place] ([facility]) ID Date Data Source [id number] 04/07/2021 04:34:00 PM EDT [place] ([facility]) Name Value Range Interpretation Code Description Data Sandra rce(s) Supporting Document(s) erythrocyte sedimentation rate 3 mm/HR 0-20 Eryth rocyte Sedimentation Rate [place] ([facility]) ID Date Data Source [id number] 04/07/2021 04:34:00 PM EDT [place] ([facility]) Name Value Range Interpretation Code Description Data Sandra rce(s) Supporting Document(s) Hemoglobin A1c/Hemoglobin.total in Blood 11.3 % Hemoglobin a1C [place] ([facility]) estimated average glucose 278 mg/dL 60-110 Above high norm al Estimated Average Glucose [facility]) ID Date Data Source [id number] 04/07/2021 04:34:00 PM EDT [place] ([facility]) Name Value Range Interpretation Code Description Data Sandra rce(s) Supporting Document(s) antinuclear antibodies direct negative negative Antinu clear Antibodies Direct [facility]) ID Date Data Source [id number] 04/07/2021 04:34:00 PM EDT [facility]) Name Value Range Interpretation Code Description Data Sandra rce(s) Supporting Document(s) vitamin B6,pyridoxal phosphate 13.4 ug/L 5.3-46.7 Vitamin B6,Pyridoxal Phosphate [place] ([facility]) ID Date Data Source [id number] 04/07/2021 04:34:00 PM EDT [facility]) Name Value Range Interpretation Code Description Data Sandra rce(s) Supporting Document(s) vitamin B1 level whole blood 134.8 nmol/L 66.5-200.0 Vitamin B1 Level Whole Blood [facility]) ID Date Data Source [id number] 04/07/2021 04:34:00 PM EDT [place] ([facility]) Name Value Range Interpretation Code Description Data Sandra rce(s) Supporting Document(s) vitamin E(alpha tocopherol) 6.2 mg/L 7.0-25.1 Below low nor mal Vitamin E(alpha Tocopherol) [facility] ([facility]) vitamin E(gamma tocopherol) 0.7 mg/L 0.5-5.5 Vitamin E(gamma Tocopherol) [place] ([facility]) ID Date Data Source [id number] 04/07/2021 04:34:00 PM EDT [facility]) Name Value Range Interpretation Code Description Data Sandra rce(s) Supporting Document(s) rheumatoid factor quant < 10.0 <15.0 Rheumatoid F actor Quant [facility]) ID Date Data Source [id number] 04/07/2021 04:34:00 PM EDT [facility]) Name Value Range Interpretation Code Description Data Sandra rce(s) Supporting Document(s) vitamin B12 level 493 pg/mL Vitamin B12 Level [facility]) folate 17.7 NG/mL Folate [facility] ([facility]) ID Date Data Source [id number] 04/07/2021 04:34:00 PM EDT [facility]) Name Value Range Interpretation Code Description Data Sandra rce(s) Supporting Document(s) albumin % 60.8 % 55.8-66.1 Albumin % [facility] ([facility]) ojevu-6-eadvvkka % 3.4 % 2.9-4.9 Pgazv-4-Wysohncl % [place] ([facility]) nrzpk-5-rxnpdscea % 10.3 % 7.1-11.8 Tsrqm-6-Soznunbk s % [place] ([facility]) lyor-3-wfqfqfbpi % 5.7 % 3.2-6.5 Ntjb-8-Fbxbhouzc % [place] ([facility]) votj-7-ixbupcnqu % 5.5 % 4.7-7.2 Tnpk-4-Gyvxeerbb % [facility] ([facility]) albumin 4.44 gm/dL 3.29-5.55 Albumin [place] ([facility]) gamma globulin % 14.3 % 11.1-18.8 Gamma Globulin % AT [facility] ([facility]) ckqsc-8-xadiosbhq 0.25 gm/dL 0.17-0.41 Pjixu-6-Priaqlgdc [place] ([facility]) refhr-7-eytgtxesv 0.75 gm/dL 0.42-0.99 Iremn-5-Xslruzisc [place] ([facility]) hwzu-1-mcbsollyi 0.42 gm/dL 0.19-0.55 Fxoj-2-Rgwpcfzte AT [facility] ([facility]) djgs-9-kvtntzlmn 0.40 gm/dL 0.28-0.60 Xxhk-1-Qagagqpic AT [facility] ([facility]) gamma globulins 1.04 gm/dL 0.65-1.58 Gamma Globulins [facility] spep interpretation see comment Spep Interpreta tion [facility] ([facility]) total protein 7.3 gm/dL 6.4-8.2 Total Protein [place] ( [facility]) spep pathologist review rev'd by Anna kumar Spep Pathologist Review [place] ([facility]) ID Date Data Source [id number] 04/07/2021 04:34:00 PM EDT [place] ([facility]) Name Value Range Interpretation Code Description Data Sandra rce(s) Supporting Document(s) PTT lupus type anticoag screen 0-1.2 PTT L upus Type Anticoag Screen [place] ([facility]) ID Date Data Source [id number] 04/07/2021 04:34:00 PM EDT [place] ([facility]) Name Value Range Interpretation Code Description Data Sandra rce(s) Supporting Document(s) erythrocyte sedimentation rate 3 mm/HR 0-20 Eryth rocyte Sedimentation Rate [place] ([facility]) ID Date Data Source [id number] 04/07/2021 04:34:00 PM EDT [place] ([facility]) Name Value Range Interpretation Code Description Data Sandra rce(s) Supporting Document(s) estimated average glucose 278 mg/dL 60-110 Above high norm al Estimated Average Glucose [place] ([facility]) Hemoglobin A1c/Hemoglobin.total in Blood 11.3 % Hemoglobin a1C [place] ([facility]) ID Date Data Source [id number] 04/07/2021 04:34:00 PM EDT [facility]) Name Value Range Interpretation Code Description Data Sandra rce(s) Supporting Document(s) antinuclear antibodies direct negative negative Antinu clear Antibodies Direct [facility]) ID Date Data Source [id number] 04/07/2021 04:34:00 PM EDT [facility]) Name Value Range Interpretation Code Description Data Sandra rce(s) Supporting Document(s) vitamin B6,pyridoxal phosphate 13.4 ug/L 5.3-46.7 Vitamin B6,Pyridoxal Phosphate [place] ([facility]) ID Date Data Source [id number] 04/07/2021 04:34:00 PM EDT [facility]) Name Value Range Interpretation Code Description Data Asndra rce(s) Supporting Document(s) vitamin B1 level whole blood 134.8 nmol/L 66.5-200.0 Vitamin B1 Level Whole Blood [facility]) ID Date Data Source [id number] 04/07/2021 04:34:00 PM EDT [facility]) Name Value Range Interpretation Code Description Data Sandra rce(s) Supporting Document(s) vitamin E(alpha tocopherol) 6.2 mg/L 7.0-25.1 Below low nor mal Vitamin E(alpha Tocopherol) [place] ([facility]) vitamin E(gamma tocopherol) 0.7 mg/L 0.5-5.5 Vitamin E(gamma Tocopherol) [facility]) ID Date Data Source [id number] 04/07/2021 04:34:00 PM EDT [facility]) Name Value Range Interpretation Code Description Data Sandra rce(s) Supporting Document(s) rheumatoid factor quant < 10.0 <15.0 Rheumatoid F actor Quant [place] ([facility]) ID Date Data Source [id number] 04/07/2021 04:34:00 PM EDT [facility]) Name Value Range Interpretation Code Description Data Sandra rce(s) Supporting Document(s) vitamin B12 level 493 pg/mL Vitamin B12 Level [facility]) folate 17.7 NG/mL Folate [place] ([facility]) ID Date Data Source [id number] 04/07/2021 04:34:00 PM EDT [facility]) Name Value Range Interpretation Code Description Data Sandra rce(s) Supporting Document(s) albumin % 60.8 % 55.8-66.1 Albumin % [facility]) kglmd-0-rxpkmljy % 3.4 % 2.9-4.9 Ucncu-0-Nmtjdaxx % [facility]) bnyyw-0-tkoapdsez % 10.3 % 7.1-11.8 Bklpk-9-Ooawfvxp s % [place] ([facility]) buac-2-tvdncqoqp % 5.5 % 4.7-7.2 Lmzt-8-Uigosawvn % [facility]) qzwb-7-ilgtdgsue % 5.7 % 3.2-6.5 Iatk-9-Vkxccfovi % [facility]) gamma globulin % 14.3 % 11.1-18.8 Gamma Globulin % [facility] ([facility]) wcfww-8-xufogtetp 0.75 gm/dL 0.42-0.99 Wqihw-2-Vgaloytwd [facility] ([facility]) bvwvf-9-knkigvxzz 0.25 gm/dL 0.17-0.41 Zunoz-0-Gaxaswmed [facility] ([facility]) albumin 4.44 gm/dL 3.29-5.55 Albumin [facility] ([facility]) aarz-2-pnzdwtbhi 0.40 gm/dL 0.28-0.60 Wvtq-0-Yrrpuohyj AT [facility] ([facility]) luif-3-ipmihytue 0.42 gm/dL 0.19-0.55 Egxr-4-Vsslrcika AT [facility] ([facility]) gamma globulins 1.04 gm/dL 0.65-1.58 Gamma Globulins [facility] spep interpretation see comment Spep Interpreta tion [place] ([facility]) spep pathologist review rev'd by Anna kumar Spep Pathologist Review [place] ([facility]) total protein 7.3 gm/dL 6.4-8.2 Total Protein [place] ( [facility]) ID Date Data Source [id number] 04/07/2021 04:34:00 PM EDT [facility]) Name Value Range Interpretation Code Description Data Sandra rce(s) Supporting Document(s) PTT lupus type anticoag screen 0-1.2 PTT L upus Type Anticoag Screen [facility] ([facility]) ID Date Data Source [id number] 04/07/2021 04:34:00 PM EDT [facility] [facility] ([facility]) Name Value Range Interpretation Code Description Data Sandra rce(s) Supporting Document(s) erythrocyte sedimentation rate 3 mm/HR 0-20 Eryth rocyte Sedimentation Rate [facility] ([facility]) ID Date Data Source [id number] 04/07/2021 04:34:00 PM EDT [facility]) Name Value Range Interpretation Code Description Data Sandra rce(s) Supporting Document(s) Hemoglobin A1c/Hemoglobin.total in Blood 11.3 % Hemoglobin a1C [facility] ([facility]) estimated average glucose 278 mg/dL 60-110 Above high norm al Estimated Average Glucose [facility] ([facility]) ID Date Data Source [id number] 04/07/2021 04:34:00 PM EDT [facility] ([facility] ) Name Value Range Interpretation Code Description Data Sandra rce(s) Supporting Document(s) Antinuclear Antibodies Direct Laboratory test result [facility] ([facility], ) Performed at: [facility] [id number] Maker: Jaime Chaney MD, Phone: [phone] Performed at: [facility] [address] [id number] [place] Maker: Andria Dinh MD, Phone: [phone] ID Date Data Source [id number] 04/07/2021 04:34:00 PM EDT [facility] ([facility] ) Name Value Range Interpretation Code Description Data Sandra rce(s) Supporting Document(s) Thiamine [Mass/volume] in Blood 134.8 nmol/L 66.5-200.0 [facility] ([facility], ) Specimen Comment: Test(s) [id number]-Ihplqbd E(Alpha Tocopherol); [id number]- Specimen Comment: Vitamin E(Gamma Tocopherol); 787464-Ienavce B6; 604308- Specimen Comment: Vit. B1, Whole Blood Specimen Comment: was developed and its performance characteristics Specimen Comment: determined by [facility]. It has not been cleared or approved Specimen Comment: by the Food and Drug Administration. Pyridoxine [Mass/volume] in Serum or Plasma 13.4 ug/L 5.3-46.7 [facility] ([facility], ) Specimen Comment: Test(s) 404912-Gauooxn E(Alpha Tocopherol); 916262- Specimen Comment: Vitamin E(Gamma Tocopherol); 017541-Lngzhlh B6; 176350- Specimen Comment: Vit. B1, Whole Blood Specimen Comment: was developed and its performance characteristics Specimen Comment: determined by [facility]. It has not been cleared or approved Specimen Comment: by the Food and Drug Administration. ID Date Data Source [id number] 04/07/2021 04:34:00 PM EDT [facility] ([facility], ) Name Value Range Interpretation Code Description Data Sandra rce(s) Supporting Document(s) Vitamin E(Alpha Tocopherol) 6.2 mg/L 7.0-25.1 [facility] ([facility], ) Vitamin E(Gamma Tocopherol) 0.7 mg/L 0.5-5.5 [facility] ([facility]) Reference intervals for alpha and gamma- tocopherol determined from National Health and Nutrition Examination Survey, 9334-7103. Individuals with alpha-tocopherol levels less than 5.0 mg/L are considered vitamin E deficient. ID Date Data Source [id number] 04/07/2021 04:34:00 PM EDT [facility] ([facility], ) Name Value Range Interpretation Code Description Data Sandra rce(s) Supporting Document(s) Rheumatoid factor [Units/volume] in Serum or Plasma Laboratory test result [facility] ([facility], ) <content>note:<nlbl:demographic_changed> </content>
<content></content> ID Date Data Source [id number] 04/07/2021 04:34:00 PM EDT [facility] ([facility], ) Name Value Range Interpretation Code Description Data Sandra rce(s) Supporting Document(s) Vitamin B12 Level 493 pg/mL [facility] ([facility], ) VITAMIN B12 NORMAL RANGE NORMAL 247 - 911 PG/ML INDETERMINATE 211 - 246 PG/ML DEFICIENT LESS THAN 211 PG/ML Folate 17.7 ng/mL [facility] ([facility], ) FOLATE NORMAL RANGE NORMAL GREATER THAN 5.4 NG/ML INDETERMINATE 3.4-5.4 NG/ML DEFICIENT LESS THAN 3.4 NG/ML ID Date Data Source [id number] 04/07/2021 04:34:00 PM EDT [facility] ([facility], ) Name Value Range Interpretation Code Description Data Sandra rce(s) Supporting Document(s) Albumin % 60.8 % 55.8-66.1 [facility] ([facility], ) Cvfgq-2-Spiupuau % 3.4 % 2.9-4.9 [facility] ([facility], ) Uzpcz-9-Osiggmjrw % 10.3 % 7.1-11.8 [facility] ([facility]) Xgzw-0-Jmqalrdob % 5.5 % 4.7-7.2 [facility] ([facility]) Bgpa-4-Nlpuwtvpi % 5.7 % 3.2-6.5 [facility] ([facility]) Albumin 4.44 GM/DL 3.29-5.55 [facility] ([facility]) Gamma Globulin % 14.3 % 11.1-18.8 [facility] ([facility]) Dnvbz-7-Sopeanxol 0.25 GM/DL 0.17-0.41 [facility] ([facility]) Oouqf-9-Pmdzqiqde 0.75 GM/DL 0.42-0.99 [facility] ([facility]) Hxaj-9-Dfxmdriva 0.42 GM/DL 0.19-0.55 [facility] ([facility]) Mhgb-0-Klpfrfeoa 0.40 GM/DL 0.28-0.60 [facility] ([facility]) Gamma Globulins 1.04 GM/DL 0.65-1.58 [facility] ([facility]) Total Protein 7.3 GM/DL 6.4-8.2 [facility] ([facility]) Spep Interpretation Laboratory test result [facility] ([facility]) NO M-SPIKE(S)NOTED. Laboratory test finding (navigational concept) Laboratory test result [facility] ([facility]) REV'D BY Anna KUMAR ID Date Data Source [id number] 04/07/2021 04:34:00 PM EDT [facility] Name Value Range Interpretation Code Description Data Sandra rce(s) Supporting Document(s) Hemoglobin A1c 11.3 % [facility] ([facility]) <content>REFERENCE RANGES:</content><br/ ><content></content>
<content><=5.6% NORMAL</content>
<content>5.7-6.4% SUGGESTS IMPAIRED GLUCOSE METABOLISM/PREDIABETIC</content>
<content>>= 6.5% ABNORMAL</content>
<content></content> Estimated Average Glucose 278 mg/dL 60-110 [facility] ([facility]) ID Date Data Source [id number] 04/07/2021 04:34:00 PM EDT [facility]) Name Value Range Interpretation Code Description Data Sandra rce(s) Supporting Document(s) antinuclear antibodies direct negative negative Antinu clear Antibodies Direct [facility]) ID Date Data Source [id number] 04/07/2021 04:34:00 PM EDT [facility] ([facility]) Name Value Range Interpretation Code Description Data Sandra rce(s) Supporting Document(s) vitamin B6,pyridoxal phosphate 13.4 ug/L 5.3-46.7 Vitamin B6,Pyridoxal Phosphate [facility]) ID Date Data Source [id number] 04/07/2021 04:34:00 PM EDT [facility]) Name Value Range Interpretation Code Description Data Sandra rce(s) Supporting Document(s) vitamin B1 level whole blood 134.8 nmol/L 66.5-200.0 Vitamin B1 Level Whole Blood [facility] ([facility]) ID Date Data Source [id number] 04/07/2021 04:34:00 PM EDT [facility]) Name Value Range Interpretation Code Description Data Sandra rce(s) Supporting Document(s) vitamin E(alpha tocopherol) 6.2 mg/L 7.0-25.1 Below low nor mal Vitamin E(alpha Tocopherol) [facility] ([facility]) vitamin E(gamma tocopherol) 0.7 mg/L 0.5-5.5 Vitamin E(gamma Tocopherol) [facility]) ID Date Data Source [id number] 04/07/2021 04:34:00 PM EDT [facility]) Name Value Range Interpretation Code Description Data Sandra rce(s) Supporting Document(s) rheumatoid factor quant < 10.0 <15.0 Rheumatoid F actor Quant [facility] ([facility]) ID Date Data Source [id number] 04/07/2021 04:34:00 PM EDT [facility]) Name Value Range Interpretation Code Description Data Sandra rce(s) Supporting Document(s) vitamin B12 level 493 pg/mL Vitamin B12 Level [facility]) folate 17.7 NG/mL Folate [facility] ([facility]) ID Date Data Source [id number] 04/07/2021 04:34:00 PM EDT [facility] ([facility]) Name Value Range Interpretation Code Description Data Sandra rce(s) Supporting Document(s) xhlfd-1-qytzioev % 3.4 % 2.9-4.9 Hjqid-5-Phncgxik % [facility]) albumin % 60.8 % 55.8-66.1 Albumin % [facility]) mmxd-1-vfccbzopz % 5.7 % 3.2-6.5 Lcsz-4-Aauahxnqv % [facility]) mafh-5-dcyekxsrx % 5.5 % 4.7-7.2 Mwuq-6-Bwpukbzlg % [facility]) bfdti-1-dzxrnexwh % 10.3 % 7.1-11.8 Lvfpm-8-Attypusv s % [facility]) albumin 4.44 gm/dL 3.29-5.55 Albumin [facility]) qlfnr-4-soiyjxeim 0.25 gm/dL 0.17-0.41 Ffsld-3-Twuzivnpy [facility]) gamma globulin % 14.3 % 11.1-18.8 Gamma Globulin % [facility]) ogyp-4-adnjjhjcu 0.42 gm/dL 0.19-0.55 Fzxr-8-Mdybrkbmu AT [facility]) mkss-3-foabslewp 0.40 gm/dL 0.28-0.60 Qtob-5-Docceqfdk AT [facility] ([facility]) zusxx-4-kpjgeinwi 0.75 gm/dL 0.42-0.99 Rdnwl-3-Rajxivert [facility] ([facility]) gamma globulins 1.04 gm/dL 0.65-1.58 Gamma Globulins AT[facility] NA ([facility]) spep interpretation see comment Spep Interpreta tion [facility] ([facility]) total protein 7.3 gm/dL 6.4-8.2 Total Protein [facility] ( [facility]) spep pathologist review rev'd by Anna kumar Spep Pathologist Review [facility] ([facility]) ID Date Data Source [id number] 04/07/2021 04:34:00 PM EDT [facility] ([facility]) Name Value Range Interpretation Code Description Data Sandra rce(s) Supporting Document(s) PTT lupus type anticoag screen 0-1.2 PTT L upus Type Anticoag Screen [facility] ([facility]) ID Date Data Source [id number] 04/07/2021 04:34:00 PM EDT [facility] ([facility]) Name Value Range Interpretation Code Description Data Sandra rce(s) Supporting Document(s) erythrocyte sedimentation rate 3 mm/HR 0-20 Eryth rocyte Sedimentation Rate [facility] ([facility]) ID Date Data Source [id number] 04/07/2021 04:34:00 PM EDT [facility] ([facility]) Name Value Range Interpretation Code Description Data Sandra rce(s) Supporting Document(s) estimated average glucose 278 mg/dL 60-110 Above high norm al Estimated Average Glucose [facility] ([facility]) Hemoglobin A1c/Hemoglobin.total in Blood 11.3 % Hemoglobin a1C [facility] ([facility]) ID Date Data Source [id number] 04/07/2021 04:34:00 PM EDT [facility] ([facility]) Name Value Range Interpretation Code Description Data Sandra rce(s) Supporting Document(s) PTT Lupus Type Anticoag Screen 0.8 0-1.2 [facility] ([facility], ) RESULT IS LESS [...] a specific inhibitor. ID Date Data Source [id number] 04/07/2021 04:34:00 PM EDT [facility] ([facility] ) Name Value Range Interpretation Code Description Data Sandra rce(s) Supporting Document(s) Erythrocyte sedimentation rate by 2H Westergren method 3 mm/hr 0-2 0 [facility] ([facility], ) ID Date Data Source [id number] 03/10/2021 08:51:00 AM EDT [facility]) Name Value Range Interpretation Code Description Data Sandra rce(s) Supporting Document(s) Hemoglobin A1c/Hemoglobin.total in Blood 13.2 % Abnormal (applies to non- numeric results) Hba1C [facility] ([facility]) ID Date Data Source [id number] 03/10/2021 08:51:00 AM EDT [facility]) Name Value Range Interpretation Code Description Data Sandra rce(s) Supporting Document(s) Hemoglobin A1c/Hemoglobin.total in Blood 13.2 % Abnormal (applies to non- numeric results) Hba1C [facility] ([facility]) ID Date Data Source [id number] 03/10/2021 08:51:00 AM EDT [facility]) Name Value Range Interpretation Code Description Data Sandra rce(s) Supporting Document(s) Hemoglobin A1c/Hemoglobin.total in Blood 13.2 % Abnormal (applies to non- numeric results) Hba1C [facility] ([facility]) ID Date Data Source [id number] 03/10/2021 08:51:00 AM EDT [facility]) Name Value Range Interpretation Code Description Data Sandra rce(s) Supporting Document(s) Hemoglobin A1c/Hemoglobin.total in Blood 13.2 % Abnormal (applies to non- numeric results) Hba1C [facility] ([facility]) ID Date Data Source [id number] 03/10/2021 08:51:00 AM EDT [facility]) Name Value Range Interpretation Code Description Data Sandra rce(s) Supporting Document(s) Hemoglobin A1c/Hemoglobin.total in Blood 13.2 % Abnormal (applies to non- numeric results) Hba1C [facility] ([facility]) ID Date Data Source [id number] 03/10/2021 08:51:00 AM EDT [facility]) Name Value Range Interpretation Code Description Data Sandra rce(s) Supporting Document(s) Hemoglobin A1c/Hemoglobin.total in Blood 13.2 % Abnormal (applies to non- numeric results) Hba1C [facility] ([facility]) ID Date Data Source [id number] 03/10/2021 08:51:00 AM EDT [facility]) Name Value Range Interpretation Code Description Data Sandra rce(s) Supporting Document(s) Hemoglobin A1c/Hemoglobin.total in Blood 13.2 % Abnormal (applies to non- numeric results) Hba1C [facility] ([facility]) ID Date Data Source [id number] 03/09/2021 08:39:00 AM EDT [facility]) Name Value Range Interpretation Code Description Data Sandra rce(s) Supporting Document(s) jesse/creat ratio 66.9 mcg/mg 0.0-30.0 Above high normal Jesse/creat Ra susy [facility] ([facility]) malb urine siemens 35.3 mg/L Malb Urine Siemen s [facility] ([facility]) creatinine, urine 52.7 mg/dL Creatinine, Urine [facility] ([facility]) ID Date Data Source [id number] 03/09/2021 08:39:00 AM EDT [facility]) Name Value Range Interpretation Code Description Data Sandra rce(s) Supporting Document(s) cholesterol level 145 mg/dL <200 Cholesterol Level [facility] ([facility]) triglycerides level 176 mg/dL <150 Above high normal Triglycer ides Level [facility] ([facility]) non-HDL-C 98 mg/dL Non-hdl-c [facility] ([facility]) Cholesterol in LDL [Mass/volume] in Serum or Plasma 63 mg/dL <1 00 LDL Cholesterol [facility] ([facility]) HDL cholesterol 47 mg/dL >40 HDL Cholesterol [facility] ([facility]) cholesterol risk ratio <5 Cholesterol R isk Ratio [facility] ([facility]) ID Date Data Source [id number] 03/09/2021 08:39:00 AM EDT [facility]) Name Value Range Interpretation Code Description Data Sandra rce(s) Supporting Document(s) blood urea nitrogen 15 mg/dL 7-18 Blood Urea Nitro gen [facility] ([facility]) glucose, fasting 326 mg/dL 70-100 Above high normal Glucose, Fas ting [facility] ([facility]) creatinine for GFR 1.04 mg/dL 0.70-1.30 Creatinine for GF R [facility] ([facility]) glomerular filtration rate > 60.0 >56 Glomerula r Filtration Rate [facility] ([facility]) sodium level 137 mEq/L 136-145 Sodium Level [facility] ([facility]) potassium serum 4.3 mEq/L 3.5-5.1 Potassium Serum [facility] NA ([facility]) chloride level 102 mEq/L 98-107 Chloride Level [facility] ([facility]) anion gap 4 mEq/L 8-16 Below low normal Anion Gap [facility] ( [facility]) carbon dioxide level 31 mEq/L 21-32 Carbon Dioxide Level [facility] ([facility]) ALT/SGPT 29 U/L 12-78 ALT/SGPT [facility] ([facility]) AST/SGOT 11 U/L 7-37 AST/SGOT [facility] ([facility]) calcium level 9.3 mg/dL 8.5-10.1 Calcium Level [facility] ( [facility]) alkaline phosphatase 74 U/L 45-117 Alkaline Phosph atase [facility] ([facility]) total protein 7.9 gm/dL 6.4-8.2 Total Protein [facility] ( [facility]) bilirubin,total 1.1 mg/dL 0.2-1.0 Above high normal Bilirubin,tot al [facility] ([facility]) albumin 4.2 gm/dL 3.2-5.2 Albumin [facility] ([facility]) albumin/globulin ratio Albumin/globu jose l Ratio [facility] ([facility]) ID Date Data Source [id number] 03/09/2021 08:39:00 AM EDT [facility] ([facility]) Name Value Range Interpretation Code Description Data Sandra rce(s) Supporting Document(s) white blood count 6.3 10 4.0-10.0 White Blood Count [facility] ([facility]) red blood count 5.76 10 4.30-6.10 Red Blood Count [facility] NA ([facility]) mean corpuscular volume 90.1 fL 80.0-96.0 Mean Corpusc ular Volume [facility] ([facility]) hemoglobin 18.4 g/dL 13.5-17.5 Above high normal Hemoglobin [facility] ([facility]) hematocrit 51.9 % 42.0-52.0 Hematocrit [facility] ([facility]) mean corpuscular HGB conc 35.5 g/dL 32.0-36.5 Mean Corpu scular HGB Conc [facility] ([facility]) mean corpuscular hemoglobin 31.9 pg 27.0-33.0 Mean Cor puscular Hemoglobin [facility] ([facility]) red cell distribution width 12.7 % 11.5-14.5 Red Cell Distribution Width [facility] ([facility]) neutrophils % 59.4 % 36.0-66.0 Neutrophils % [facility] ( [facility]) platelet count, automated 171 10 150-450 Platelet C ount, Automated [facility] ([facility]) lymph % 28.3 % 24.0-44.0 Lymph % [facility] ([facility]) eos % 1.8 % 0.0-3.0 Eos % [facility] ([facility]) mono % 9.4 % 2.0-8.0 Above high normal Brooks % [facility] ([facility]) baso % 0.5 % 0.0-1.0 Baso % [facility] ([facility]) nucleated red blood cell % 0.0 % 0-0 Nucleated Red Blood Cell % [facility] ([facility]) immature granulocyte % 0.6 % 0-3.0 Immature Gran ulocyte % [facility] ([facility]) lymph # 1.8 10 1.5-5.0 Lymph # [facility] ([facility]) neutrophils # 3.7 10 1.5-8.5 Neutrophils # [facility] ( [facility]) mono # 0.6 10 0.0-0.8 Brooks # [facility] ([facility]) baso # 0.0 10 0.0-0.2 Baso # [facility] ([facility]) eos # 0.1 10 0.0-0.5 Eos # [facility] ([facility]) ID Date Data Source [id number] 03/09/2021 08:39:00 AM EDT [facility] ([facility]) Name Value Range Interpretation Code Description Data Sandra rce(s) Supporting Document(s) creatinine, urine 52.7 mg/dL Creatinine, Urine [facility] ([facility]) malb urine siemens 35.3 mg/L Malb Urine Siemen s [facility] ([facility]) jesse/creat ratio 66.9 mcg/mg 0.0-30.0 Above high normal Jesse/creat Ra susy [facility] ([facility]) ID Date Data Source [id number] 03/09/2021 08:39:00 AM EDT [facility] ([facility]) Name Value Range Interpretation Code Description Data Sandra rce(s) Supporting Document(s) cholesterol level 145 mg/dL <200 Cholesterol Level [facility] ([facility]) triglycerides level 176 mg/dL <150 Above high normal Triglycer ides Level [facility] ([facility]) HDL cholesterol 47 mg/dL >40 HDL Cholesterol [facility] ([facility]) cholesterol risk ratio <5 Cholesterol R isk Ratio [facility] ([facility]) non-HDL-C 98 mg/dL Non-hdl-c [facility] ([facility]) Cholesterol in LDL [Mass/volume] in Serum or Plasma 63 mg/dL <1 00 LDL Cholesterol [facility] ([facility]) ID Date Data Source [id number] 03/09/2021 08:39:00 AM EDT [facility] ([facility]) Name Value Range Interpretation Code Description Data Sandra rce(s) Supporting Document(s) glucose, fasting 326 mg/dL 70-100 Above high normal Glucose, Fas ting [facility] ([facility]) blood urea nitrogen 15 mg/dL 7-18 Blood Urea Nitro gen [facility] ([facility]) creatinine for GFR 1.04 mg/dL 0.70-1.30 Creatinine for GF R [facility] ([facility]) glomerular filtration rate > 60.0 >56 Glomerula r Filtration Rate [facility] ([facility]) potassium serum 4.3 mEq/L 3.5-5.1 Potassium Serum [facility] NA ([facility]) sodium level 137 mEq/L 136-145 Sodium Level [facility] ([facility]) anion gap 4 mEq/L 8-16 Below low normal Anion Gap [facility] ( [facility]) chloride level 102 mEq/L 98-107 Chloride Level [facility] ([facility]) carbon dioxide level 31 mEq/L 21-32 Carbon Dioxide Level [facility] ([facility]) ALT/SGPT 29 U/L 12-78 ALT/SGPT [facility] ([facility]) AST/SGOT 11 U/L 7-37 AST/SGOT [facility] ([facility]) calcium level 9.3 mg/dL 8.5-10.1 Calcium Level [facility] ( [facility]) alkaline phosphatase 74 U/L 45-117 Alkaline Phosph atase [facility] ([facility]) bilirubin,total 1.1 mg/dL 0.2-1.0 Above high normal Bilirubin,tot al [facility] ([facility]) total protein 7.9 gm/dL 6.4-8.2 Total Protein [facility] ( [facility]) albumin 4.2 gm/dL 3.2-5.2 Albumin [facility] ([facility]) albumin/globulin ratio Albumin/globu jose l Ratio [facility] ([facility]) ID Date Data Source [id number] 03/09/2021 08:39:00 AM EDT [facility] ([facility]) Name Value Range Interpretation Code Description Data Sandra rce(s) Supporting Document(s) white blood count 6.3 10 4.0-10.0 White Blood Count [facility] ([facility]) red blood count 5.76 10 4.30-6.10 Red Blood Count [facility] NA ([facility]) hemoglobin 18.4 g/dL 13.5-17.5 Above high normal Hemoglobin [facility] ([facility]) mean corpuscular volume 90.1 fL 80.0-96.0 Mean Corpusc ular Volume [facility] ([facility]) hematocrit 51.9 % 42.0-52.0 Hematocrit [facility] ([facility]) red cell distribution width 12.7 % 11.5-14.5 Red Cell Distribution Width [facility] ([facility]) mean corpuscular hemoglobin 31.9 pg 27.0-33.0 Mean Cor puscular Hemoglobin [facility] ([facility]) mean corpuscular HGB conc 35.5 g/dL 32.0-36.5 Mean Corpu scular HGB Conc [facility] ([facility]) neutrophils % 59.4 % 36.0-66.0 Neutrophils % [facility] ( [facility]) platelet count, automated 171 10 150-450 Platelet C ount, Automated [facility] ([facility]) mono % 9.4 % 2.0-8.0 Above high normal Brooks % [facility] ([facility]) eos % 1.8 % 0.0-3.0 Eos % [facility] ([facility]) lymph % 28.3 % 24.0-44.0 Lymph % [facility] ([facility]) immature granulocyte % 0.6 % 0-3.0 Immature Gran ulocyte % [facility] ([facility]) baso % 0.5 % 0.0-1.0 Baso % [facility] ([facility]) nucleated red blood cell % 0.0 % 0-0 Nucleated Red Blood Cell % [facility] ([facility]) neutrophils # 3.7 10 1.5-8.5 Neutrophils # [facility] ( [facility]) mono # 0.6 10 0.0-0.8 Brooks # [facility] ([facility]) lymph # 1.8 10 1.5-5.0 Lymph # [facility] ([facility]) baso # 0.0 10 0.0-0.2 Baso # [facility] ([facility]) eos # 0.1 10 0.0-0.5 Eos # [facility] ([facility]) ID Date Data Source [id number] 03/09/2021 08:39:00 AM EDT [facility] ([facility]) Name Value Range Interpretation Code Description Data Sandra rce(s) Supporting Document(s) creatinine, urine 52.7 mg/dL Creatinine, Urine [facility] ([facility]) jesse/creat ratio 66.9 mcg/mg 0.0-30.0 Above high normal Jesse/creat Ra susy [facility] ([facility]) malb urine siemens 35.3 mg/L Malb Urine Siemen s [facility] ([facility]) ID Date Data Source [id number] 03/09/2021 08:39:00 AM EDT [facility]) Name Value Range Interpretation Code Description Data Sandra rce(s) Supporting Document(s) triglycerides level 176 mg/dL <150 Above high normal Triglycer ides Level [facility] ([facility]) Cholesterol in LDL [Mass/volume] in Serum or Plasma 63 mg/dL <1 00 LDL Cholesterol [facility] ([facility]) cholesterol level 145 mg/dL <200 Cholesterol Level [facility] ([facility]) HDL cholesterol 47 mg/dL >40 HDL Cholesterol AT[facility] ([facility]) non-HDL-C 98 mg/dL Non-hdl-c [facility] ([facility]) cholesterol risk ratio <5 Cholesterol R isk Ratio [facility] ([facility]) ID Date Data Source [id number] 03/09/2021 08:39:00 AM EDT [facility] ([facility]) Name Value Range Interpretation Code Description Data Sandra rce(s) Supporting Document(s) glucose, fasting 326 mg/dL 70-100 Above high normal Glucose, Fas ting [facility] ([facility]) creatinine for GFR 1.04 mg/dL 0.70-1.30 Creatinine for GF R [facility]ANES[facility] ([facility]) blood urea nitrogen 15 mg/dL 7-18 Blood Urea Nitro gen VANESSA ([facility]) potassium serum 4.3 mEq/L 3.5-5.1 Potassium Serum ATHE NA ([facility]) chloride level 102 mEq/L 98-107 Chloride Level VANESSA ([facility]) glomerular filtration rate > 60.0 >56 Glomerula r Filtration Rate VANESSA ([facility]) sodium level 137 mEq/L 136-145 Sodium Level VANESSA (No [facility]) anion gap 4 mEq/L 8-16 Below low normal Anion Gap VANESSA ( [facility]) calcium level 9.3 mg/dL 8.5-10.1 Calcium Level [place] ( [facility]) carbon dioxide level 31 mEq/L 21-32 Carbon Dioxide Level VANESSA ([facility]) ALT/SGPT 29 U/L 12-78 ALT/SGPT [facility] ([facility]) AST/SGOT 11 U/L 7-37 AST/SGOT V[facility] ([facility]) alkaline phosphatase 74 U/L 45-117 Alkaline Phosph atase VANESSA ([facility]) bilirubin,total 1.1 mg/dL 0.2-1.0 Above high normal Bilirubin,tot al [facility] ([facility]) albumin 4.2 gm/dL 3.2-5.2 Albumin V[facility] ([facility]) albumin/globulin ratio Albumin/globu jose l Ratio VANESSA ([facility]) total protein 7.9 gm/dL 6.4-8.2 Total Protein V[facility] ( [facility]) ID Date Data Source [id number] 03/09/2021 08:39:00 AM EDT VANESSA ([facility]) Name Value Range Interpretation Code Description Data Sandra rce(s) Supporting Document(s) white blood count 6.3 10 4.0-10.0 White Blood Count V[facility]ESSA ([facility]) hemoglobin 18.4 g/dL 13.5-17.5 Above high normal Hemoglobin VANESSA ([facility]) red blood count 5.76 10 4.30-6.10 Red Blood Count ATHE ([facility]) hematocrit 51.9 % 42.0-52.0 Hematocrit VANESSA ([facility]) mean corpuscular volume 90.1 fL 80.0-96.0 Mean Corpusc ular Volume VANESSA ([facility]) mean corpuscular hemoglobin 31.9 pg 27.0-33.0 Mean Cor puscular Hemoglobin VANESSA ([facility]) mean corpuscular HGB conc 35.5 g/dL 32.0-36.5 Mean Corpu scular HGB Conc VANESSA ([facility]) red cell distribution width 12.7 % 11.5-14.5 Red Cell Distribution Width [facility] ([facility]) platelet count, automated 171 10 150-450 Platelet C ount, Automated V[facility]ES[facility] ([facility]) neutrophils % 59.4 % 36.0-66.0 Neutrophils % [facility] ( [facility]) mono % 9.4 % 2.0-8.0 Above high normal Brooks % VANESSA ([facility]) lymph % 28.3 % 24.0-44.0 Lymph % [facility] ([facility]) eos % 1.8 % 0.0-3.0 Eos % [facility] ([facility]) baso % 0.5 % 0.0-1.0 Baso % [place] ([facility]) immature granulocyte % 0.6 % 0-3.0 Immature Gran ulocyte % [place] ([facility]) nucleated red blood cell % 0.0 % 0-0 Nucleated Red Blood Cell % [place] ([facility]) eos # 0.1 10 0.0-0.5 Eos # [facility]ES[facility] ([facility]) mono # 0.6 10 0.0-0.8 Brooks # [place] ([facility]) lymph # 1.8 10 1.5-5.0 Lymph # [place] ([facility]) neutrophils # 3.7 10 1.5-8.5 Neutrophils # V[facility]ESSA ( [facility]) baso # 0.0 10 0.0-0.2 Baso # [facility] ([facility]) ID Date Data Source [id number] 03/09/2021 08:39:00 AM EDT [place] ([facility]) Name Value Range Interpretation Code Description Data Sandra rce(s) Supporting Document(s) malb urine siemens 35.3 mg/L Malb Urine Siemen s VANESSA ([facility]) creatinine, urine 52.7 mg/dL Creatinine, Urine [place] ([facility]) jesse/creat ratio 66.9 mcg/mg 0.0-30.0 Above high normal Jesse/creat Ra susy [place] ([facility]) ID Date Data Source [id number] 03/09/2021 08:39:00 AM EDT VANESSA ([facility]) Name Value Range Interpretation Code Description Data Sandra rce(s) Supporting Document(s) Cholesterol in LDL [Mass/volume] in Serum or Plasma 63 mg/dL <1 00 LDL Cholesterol V[facility]SA ([facility]) HDL cholesterol 47 mg/dL >40 HDL Cholesterol ATHE ([facility]) triglycerides level 176 mg/dL <150 Above high normal Triglycer ides Level [facility] ([facility]) cholesterol level 145 mg/dL <200 Cholesterol Level V[facility]SA ([facility]) cholesterol risk ratio <5 Cholesterol R isk Ratio [facility] ([facility]) non-HDL-C 98 mg/dL Non-hdl-c [facility] ([facility]) ID Date Data Source [id number] 03/09/2021 08:39:00 AM EDT [facility] ([facility]) Name Value Range Interpretation Code Description Data Sandra rce(s) Supporting Document(s) glomerular filtration rate > 60.0 >56 Glomerula r Filtration Rate [facility] ([facility]) glucose, fasting 326 mg/dL 70-100 Above high normal Glucose, Fas ting [facility] ([facility]) blood urea nitrogen 15 mg/dL 7-18 Blood Urea Nitro gen [facility] ([facility]) creatinine for GFR 1.04 mg/dL 0.70-1.30 Creatinine for GF R V[facility] ([facility]) potassium serum 4.3 mEq/L 3.5-5.1 Potassium Serum ATHE NA ([facility]) sodium level 137 mEq/L 136-145 Sodium Level V[facility]ESSA ([facility]) chloride level 102 mEq/L 98-107 Chloride Level V[facility]SA ([facility]) carbon dioxide level 31 mEq/L 21-32 Carbon Dioxide Level [facility] ([facility]) AST/SGOT 11 U/L 7-37 AST/SGOT [facility] ([facility]) anion gap 4 mEq/L 8-16 Below low normal Anion Gap [facility] ( [facility]) calcium level 9.3 mg/dL 8.5-10.1 Calcium Level [facility] ( [facility]) alkaline phosphatase 74 U/L 45-117 Alkaline Phosph atase [facility] ([facility]) ALT/SGPT 29 U/L 12-78 ALT/SGPT [facility] ([facility]) bilirubin,total 1.1 mg/dL 0.2-1.0 Above high normal Bilirubin,tot al [facility] ([facility]) total protein 7.9 gm/dL 6.4-8.2 Total Protein [facility] ( [facility]) albumin 4.2 gm/dL 3.2-5.2 Albumin [facility] ([facility]) albumin/globulin ratio Albumin/globu jose l Ratio [facility] ([facility]) ID Date Data Source [id number] 03/09/2021 08:39:00 AM EDT [facility] ([facility]) Name Value Range Interpretation Code Description Data Sandra rce(s) Supporting Document(s) red blood count 5.76 10 4.30-6.10 Red Blood Count ATHE ([facility]) white blood count 6.3 10 4.0-10.0 White Blood Count [facility] ([facility]) hemoglobin 18.4 g/dL 13.5-17.5 Above high normal Hemoglobin [facility] ([facility]) mean corpuscular volume 90.1 fL 80.0-96.0 Mean Corpusc ular Volume [facility] ([facility]) hematocrit 51.9 % 42.0-52.0 Hematocrit [facility] ([facility]) mean corpuscular hemoglobin 31.9 pg 27.0-33.0 Mean Cor puscular Hemoglobin [facility] ([facility]) mean corpuscular HGB conc 35.5 g/dL 32.0-36.5 Mean Corpu scular HGB Conc [facility] ([facility]) red cell distribution width 12.7 % 11.5-14.5 Red Cell Distribution Width [facility] ([facility]) lymph % 28.3 % 24.0-44.0 Lymph % [facility] ([facility]) mono % 9.4 % 2.0-8.0 Above high normal Brooks % [facility] ([facility]) platelet count, automated 171 10 150-450 Platelet C ount, Automated V[facility] ([facility]) neutrophils % 59.4 % 36.0-66.0 Neutrophils % [place] ( [facility]) immature granulocyte % 0.6 % 0-3.0 Immature Gran ulocyte % [facility] ([facility]) baso % 0.5 % 0.0-1.0 Baso % [place] ([facility]) eos % 1.8 % 0.0-3.0 Eos % [place] ([facility]) lymph # 1.8 10 1.5-5.0 Lymph # [place] ([facility]) mono # 0.6 10 0.0-0.8 Brooks # [place] ([facility]) nucleated red blood cell % 0.0 % 0-0 Nucleated Red Blood Cell % [place] ([facility]) neutrophils # 3.7 10 1.5-8.5 Neutrophils # [place] ( [facility]) eos # 0.1 10 0.0-0.5 Eos # [facility] ([facility]) baso # 0.0 10 0.0-0.2 Baso # [place] ([facility]) ID Date Data Source [id number] 03/09/2021 08:39:00 AM EDT [place] ([facility]) Name Value Range Interpretation Code Description Data Sandra rce(s) Supporting Document(s) creatinine, urine 52.7 mg/dL Creatinine, Urine [place] ([facility]) malb urine siemens 35.3 mg/L Malb Urine Siemen s [place] ([facility]) jesse/creat ratio 66.9 mcg/mg 0.0-30.0 Above high normal Jesse/creat Ra susy [place] ([facility]) ID Date Data Source [id number] 03/09/2021 08:39:00 AM EDT [place] ([facility]) Name Value Range Interpretation Code Description Data Sandra rce(s) Supporting Document(s) cholesterol level 145 mg/dL <200 Cholesterol Level [facility] ([facility]) HDL cholesterol 47 mg/dL >40 HDL Cholesterol ATHE ([facility]) triglycerides level 176 mg/dL <150 Above high normal Triglycer ides Level [facility] ([facility]) non-HDL-C 98 mg/dL Non-hdl-c [facility] ([facility]) cholesterol risk ratio <5 Cholesterol R isk Ratio [facility] ([facility]) Cholesterol in LDL [Mass/volume] in Serum or Plasma 63 mg/dL <1 00 LDL Cholesterol [facility] ([facility]) ID Date Data Source [id number] 03/09/2021 08:39:00 AM [facility] Name Value Range Interpretation Code Description Data Sandra rce(s) Supporting Document(s) blood urea nitrogen 15 mg/dL 7-18 Blood Urea Nitro gen [facility]SA ([facility]) glomerular filtration rate > 60.0 >56 Glomerula r Filtration Rate [facility] ([facility]) glucose, fasting 326 mg/dL 70-100 Above high normal Glucose, Fas ting [facility] ([facility]) creatinine for GFR 1.04 mg/dL 0.70-1.30 Creatinine for GF R V[facility] ([facility]) sodium level 137 mEq/L 136-145 Sodium Level [facility] (No [facility]) potassium serum 4.3 mEq/L 3.5-5.1 Potassium Serum ATHE NA ([facility]) chloride level 102 mEq/L 98-107 Chloride Level [facility] ([facility]) carbon dioxide level 31 mEq/L 21-32 Carbon Dioxide Level [facility] ([facility]) calcium level 9.3 mg/dL 8.5-10.1 Calcium Level [facility] ( [facility]) AST/SGOT 11 U/L 7-37 AST/SGOT [facility] ([facility]) ALT/SGPT 29 U/L 12-78 ALT/SGPT [facility] ([facility]) anion gap 4 mEq/L 8-16 Below low normal Anion Gap V[facility]SA ( [facility]) total protein 7.9 gm/dL 6.4-8.2 Total Protein [facility] ( [facility]) albumin 4.2 gm/dL 3.2-5.2 Albumin [facility] ([facility]) alkaline phosphatase 74 U/L 45-117 Alkaline Phosph atase [facility] ([facility]) bilirubin,total 1.1 mg/dL 0.2-1.0 Above high normal Bilirubin,tot al [facility] ([facility]) albumin/globulin ratio Albumin/globu jose l Ratio [facility]SA ([facility]) ID Date Data Source [id number] 03/09/2021 08:39:00 AM EDT [place] ([facility]) Name Value Range Interpretation Code Description Data Sandra rce(s) Supporting Document(s) white blood count 6.3 10 4.0-10.0 White Blood Count [facility] ([facility]) hemoglobin 18.4 g/dL 13.5-17.5 Above high normal Hemoglobin [facility] ([facility]) red blood count 5.76 10 4.30-6.10 [facility] hematocrit 51.9 % 42.0-52.0 Hematocrit [place] ([facility]) mean corpuscular hemoglobin 31.9 pg 27.0-33.0 Mean Cor puscular Hemoglobin [facility] ([facility]) mean corpuscular HGB conc 35.5 g/dL 32.0-36.5 Mean Corpu scular HGB Conc [facility]AN[facility] ([facility]) mean corpuscular volume 90.1 fL 80.0-96.0 Mean Corpusc ular Volume [facility] ([facility]) red cell distribution width 12.7 % 11.5-14.5 Red Cell Distribution Width [facility] ([facility]) platelet count, automated 171 10 150-450 Platelet C ount, Automated [facility] ([facility]) neutrophils % 59.4 % 36.0-66.0 Neutrophils % [facility] ( [facility]) baso % 0.5 % 0.0-1.0 Baso % [facility] ([facility]) lymph % 28.3 % 24.0-44.0 Lymph % [facility] ([facility]) eos % 1.8 % 0.0-3.0 Eos % [facility] ([facility]) mono % 9.4 % 2.0-8.0 Above high normal Brooks % [facility] ([facility]) neutrophils # 3.7 10 1.5-8.5 Neutrophils # [facility] ( [facility]) nucleated red blood cell % 0.0 % 0-0 Nucleated Red Blood Cell % [facility] ([facility]) immature granulocyte % 0.6 % 0-3.0 Immature Gran ulocyte % [facility] ([facility]) lymph # 1.8 10 1.5-5.0 Lymph # [facility] ([facility]) eos # 0.1 10 0.0-0.5 Eos # [facility] ([facility]) mono # 0.6 10 0.0-0.8 Brooks # [facility] ([facility]) baso # 0.0 10 0.0-0.2 Baso # [facility] ([facility]) ID Date Data Source [id number] 03/09/2021 08:39:00 AM EDT [place] ([facility]) Name Value Range Interpretation Code Description Data Sandra rce(s) Supporting Document(s) malb urine siemens 35.3 mg/L Malb Urine Siemen s [facility] ([facility]) creatinine, urine 52.7 mg/dL Creatinine, Urine [facility] ([facility]) jesse/creat ratio 66.9 mcg/mg 0.0-30.0 Above high normal Jesse/creat Ra susy [place] ([facility]) ID Date Data Source [id number] 03/09/2021 08:39:00 AM EDT [place] ([facility]) Name Value Range Interpretation Code Description Data Sandra rce(s) Supporting Document(s) cholesterol level 145 mg/dL <200 Cholesterol Level [place] ([facility]) triglycerides level 176 mg/dL <150 Above high normal Triglycer ides Level [facility] ([facility]) HDL cholesterol 47 mg/dL >40 HDL Cholesterol ATHE NA ([facility]) Cholesterol in LDL [Mass/volume] in Serum or Plasma 63 mg/dL <1 00 LDL Cholesterol [facility] ([facility]) cholesterol risk ratio <5 Cholesterol R isk Ratio [facility] ([facility]) non-HDL-C 98 mg/dL Non-hdl-c [facility] ([facility]) ID Date Data Source [id number] 03/09/2021 08:39:00 AM EDT [facility] ([facility]) Name Value Range Interpretation Code Description Data Sandra rce(s) Supporting Document(s) glucose, fasting 326 mg/dL 70-100 Above high normal Glucose, Fas ting [facility] ([facility]) blood urea nitrogen 15 mg/dL 7-18 Blood Urea Nitro gen [facility] ([facility]) creatinine for GFR 1.04 mg/dL 0.70-1.30 Creatinine for GF R [facility] ([facility]) potassium serum 4.3 mEq/L 3.5-5.1 Potassium Serum ATHE ([facility]) glomerular filtration rate > 60.0 >56 Glomerula r Filtration Rate [facility] ([facility]) chloride level 102 mEq/L 98-107 Chloride Level [facility] ([facility]) sodium level 137 mEq/L 136-145 Sodium Level [facility] (No [facility]) calcium level 9.3 mg/dL 8.5-10.1 Calcium Level [facility] ( [facility]) carbon dioxide level 31 mEq/L 21-32 Carbon Dioxide Level [facility] ([facility]) anion gap 4 mEq/L 8-16 Below low normal Anion Gap [facility] ( [facility]) alkaline phosphatase 74 U/L 45-117 Alkaline Phosph atase [facility] ([facility]) bilirubin,total 1.1 mg/dL 0.2-1.0 Above high normal Bilirubin,tot al [facility] ([facility]) AST/SGOT 11 U/L 7-37 AST/SGOT [facility] ([facility]) ALT/SGPT 29 U/L 12-78 ALT/SGPT [facility] ([facility]) albumin 4.2 gm/dL 3.2-5.2 Albumin [facility] ([facility]) total protein 7.9 gm/dL 6.4-8.2 Total Protein [facility] ( [facility]) albumin/globulin ratio Albumin/globu jose l Ratio [facility] ([facility]) ID Date Data Source [id number] 03/09/2021 08:39:00 AM EDT [facility] ([facility]) Name Value Range Interpretation Code Description Data Sandra rce(s) Supporting Document(s) white blood count 6.3 10 4.0-10.0 White Blood Count [facility] ([facility]) red blood count 5.76 10 4.30-6.10 Red Blood Count ATHE ([facility]) hemoglobin 18.4 g/dL 13.5-17.5 Above high normal Hemoglobin [facility] ([facility]) mean corpuscular HGB conc 35.5 g/dL 32.0-36.5 Mean Corpu scular HGB Conc [facility] ([facility]) hematocrit 51.9 % 42.0-52.0 Hematocrit [facility] ([facility]) mean corpuscular hemoglobin 31.9 pg 27.0-33.0 Mean Cor puscular Hemoglobin [facility] ([facility]) mean corpuscular volume 90.1 fL 80.0-96.0 Mean Corpusc ular Volume [facility] ([facility]) platelet count, automated 171 10 150-450 Platelet C ount, Automated [facility] ([facility]) red cell distribution width 12.7 % 11.5-14.5 Red Cell Distribution Width [facility] ([facility]) neutrophils % 59.4 % 36.0-66.0 Neutrophils % [facility] ( [facility]) mono % 9.4 % 2.0-8.0 Above high normal Brooks % [facility] ([facility]) lymph % 28.3 % 24.0-44.0 Lymph % [facility] ([facility]) eos % 1.8 % 0.0-3.0 Eos % [facility] ([facility]) immature granulocyte % 0.6 % 0-3.0 Immature Gran ulocyte % [facility] ([facility]) baso % 0.5 % 0.0-1.0 Baso % [facility] ([facility]) mono # 0.6 10 0.0-0.8 Brooks # [facility] ([facility]) lymph # 1.8 10 1.5-5.0 Lymph # [facility] ([facility]) nucleated red blood cell % 0.0 % 0-0 Nucleated Red Blood Cell % [facility] ([facility]) neutrophils # 3.7 10 1.5-8.5 Neutrophils # [facility] ( [facility]) baso # 0.0 10 0.0-0.2 Baso # [facility] ([facility]) eos # 0.1 10 0.0-0.5 Eos # [facility] ([facility]) ID Date Data Source [id number] 03/09/2021 08:39:00 AM EDT [place] ([facility]) Name Value Range Interpretation Code Description Data Sandra rce(s) Supporting Document(s) creatinine, urine 52.7 mg/dL Creatinine, Urine [place] ([facility]) jesse/creat ratio 66.9 mcg/mg 0.0-30.0 Above high normal Jesse/creat Ra susy [facility] ([facility]) malb urine siemens 35.3 mg/L Malb Urine Siemen s [facility] ([facility]) ID Date Data Source [id number] 03/09/2021 08:39:00 AM EDT [place] ([facility]) Name Value Range Interpretation Code Description Data Sandra rce(s) Supporting Document(s) cholesterol level 145 mg/dL <200 Cholesterol Level [facility] ([facility]) triglycerides level 176 mg/dL <150 Above high normal Triglycer ides Level [facility] ([facility]) Cholesterol in LDL [Mass/volume] in Serum or Plasma 63 mg/dL <1 00 LDL Cholesterol [facility] ([facility]) non-HDL-C 98 mg/dL Non-hdl-c [facility] ([facility]) HDL cholesterol 47 mg/dL >40 HDL Cholesterol ATHE NA ([facility]) cholesterol risk ratio <5 Cholesterol R isk Ratio [facility] ([facility]) ID Date Data Source [id number] 03/09/2021 08:39:00 AM EDT [facility] ([facility]) Name Value Range Interpretation Code Description Data Sandra rce(s) Supporting Document(s) creatinine for GFR 1.04 mg/dL 0.70-1.30 Creatinine for GF R [facility] ([facility]) glomerular filtration rate > 60.0 >56 Glomerula r Filtration Rate [facility] ([facility]) glucose, fasting 326 mg/dL 70-100 Above high normal Glucose, Fas ting [facility] ([facility]) blood urea nitrogen 15 mg/dL 7-18 Blood Urea Nitro gen [facility] ([facility]) potassium serum 4.3 mEq/L 3.5-5.1 Potassium Serum ATHE NA ([facility]) sodium level 137 mEq/L 136-145 Sodium Level [facility] ([facility]) chloride level 102 mEq/L 98-107 Chloride Level [place] ([facility]) anion gap 4 mEq/L 8-16 Below low normal Anion Gap [facility] ( [facility]) calcium level 9.3 mg/dL 8.5-10.1 Calcium Level [facility] ( [facility]) carbon dioxide level 31 mEq/L 21-32 Carbon Dioxide Level [facility] ([facility]) bilirubin,total 1.1 mg/dL 0.2-1.0 Above high normal Bilirubin,tot al [facility] ([facility]) AST/SGOT 11 U/L 7-37 AST/SGOT [place] ([facility]) alkaline phosphatase 74 U/L 45-117 Alkaline Phosph atase [facility] ([facility]) ALT/SGPT 29 U/L 12-78 ALT/SGPT [facility] ([facility]) total protein 7.9 gm/dL 6.4-8.2 Total Protein [facility] ( [facility]) albumin/globulin ratio Albumin/globu jose l Ratio [facility] ([facility]) albumin 4.2 gm/dL 3.2-5.2 Albumin [facility] ([facility]) ID Date Data Source [id number] 03/09/2021 08:39:00 AM EDT [facility] ([facility]) Name Value Range Interpretation Code Description Data Sandra rce(s) Supporting Document(s) white blood count 6.3 10 4.0-10.0 White Blood Count [facility] ([facility]) red blood count 5.76 10 4.30-6.10 Red Blood Count ATHE ([facility]) hemoglobin 18.4 g/dL 13.5-17.5 Above high normal Hemoglobin [facility] ([facility]) hematocrit 51.9 % 42.0-52.0 Hematocrit [facility] ([facility]) mean corpuscular HGB conc 35.5 g/dL 32.0-36.5 Mean Corpu scular HGB Conc [facility] ([facility]) mean corpuscular hemoglobin 31.9 pg 27.0-33.0 Mean Cor puscular Hemoglobin [facility] ([facility]) mean corpuscular volume 90.1 fL 80.0-96.0 Mean Corpusc ular Volume [facility] ([facility]) red cell distribution width 12.7 % 11.5-14.5 Red Cell Distribution Width [facility] ([facility]) platelet count, automated 171 10 150-450 Platelet C ount, Automated [facility] ([facility]) neutrophils % 59.4 % 36.0-66.0 Neutrophils % [facility] ( [facility]) mono % 9.4 % 2.0-8.0 Above high normal Brooks % [facility] ([facility]) lymph % 28.3 % 24.0-44.0 Lymph % [facility] ([facility]) eos % 1.8 % 0.0-3.0 Eos % [facility] ([facility]) baso % 0.5 % 0.0-1.0 Baso % [facility] ([facility]) immature granulocyte % 0.6 % 0-3.0 Immature Gran ulocyte % [facility] ([facility]) lymph # 1.8 10 1.5-5.0 Lymph # [facility] ([facility]) mono # 0.6 10 0.0-0.8 [place] # [place] ([facility]) neutrophils # 3.7 10 1.5-8.5 Neutrophils # [facility] ( [facility]) nucleated red blood cell % 0.0 % 0-0 Nucleated Red Blood Cell % VANESSA ([facility]) baso # 0.0 10 0.0-0.2 Baso # VANESSA ([facility]) eos # 0.1 10 0.0-0.5 Eos # [facility] ([facility]) ID Date Data Source [id number] 02/15/2021 08:58:00 AM EDT [facility] ([facility]) Name Value Range Interpretation Code Description Data Sandra rce(s) Supporting Document(s) sars-cov-2 negative negative Sars-cov-2 [facility] ([facility]) ID Date Data Source [id number] 02/15/2021 08:58:00 AM EDT [facility] ([facility]) Name Value Range Interpretation Code Description Data Sandra rce(s) Supporting Document(s) sars-cov-2 negative negative Sars-cov-2 [facility] ([facility]) ID Date Data Source [id number] 02/15/2021 08:58:00 AM EDT [facility] ([facility]) Name Value Range Interpretation Code Description Data Sandra rce(s) Supporting Document(s) sars-cov-2 negative negative Sars-cov-2 [facility] ([facility]) ID Date Data Source [id number] 02/15/2021 08:58:00 AM EDT [facility]) Name Value Range Interpretation Code Description Data Sandra rce(s) Supporting Document(s) sars-cov-2 negative negative Sars-cov-2 [facility] ([facility]) ID Date Data Source [id number] 02/15/2021 08:58:00 AM EDT [facility] ([facility]) Name Value Range Interpretation Code Description Data Sandra rce(s) Supporting Document(s) sars-cov-2 negative negative Sars-cov-2 [facility]) ID Date Data Source [id number] 02/15/2021 08:58:00 AM EDT [facility]) Name Value Range Interpretation Code Description Data Sandra rce(s) Supporting Document(s) sars-cov-2 negative negative Sars-cov-2 [facility]) ID Date Data Source [id number] 02/15/2021 08:58:00 AM EDT [facility]) Name Value Range Interpretation Code Description Data Sandra rce(s) Supporting Document(s) sars-cov-2 negative negative Sars-cov-2 [facility]) ID Date Data Source [id number] 02/15/2021 08:58:00 AM EDT [facility]) Name Value Range Interpretation Code Description Data Sandra rce(s) Supporting Document(s) sars-cov-2 negative negative Sars-cov-2 [facility]) ID Date Data Source [id number] 02/15/2021 08:58:00 AM EDT [facility]) Name Value Range Interpretation Code Description Data Sandra rce(s) Supporting Document(s) sars-cov-2 negative negative Sars-cov-2 [facility]) ID Date Data Source [id number] 02/15/2021 08:56:00 AM EDT [facility] Name Value Range Interpretation Code Description Data Sandra rce(s) Supporting Document(s) SARS coronavirus 2 RdRp gene [Presence] in Respiratory specimen by ABHINAV with probe detection Not detected [facility] This lab was ordered by [facility] and reported by [facility]. ID Date Data Source [id number] 09/28/2020 12:00:00 AM EST [facility] ([facility]) Name Value Range Interpretation Code Description Data Sandra rce(s) Supporting Document(s) Hemoglobin A1c/Hemoglobin.total in Blood 11.4 % Above high normal Hba1C [facility] ([facility]) ID Date Data Source [id number] 09/28/2020 12:00:00 AM EST [facility] ([facility]) Name Value Range Interpretation Code Description Data Sandra rce(s) Supporting Document(s) Hemoglobin A1c/Hemoglobin.total in Blood 11.4 % Above high normal Hba1C [facility] ([facility]) ID Date Data Source [id number] 09/28/2020 12:00:00 AM EST [facility] ([facility]) Name Value Range Interpretation Code Description Data Asndra rce(s) Supporting Document(s) Hemoglobin A1c/Hemoglobin.total in Blood 11.4 % Above high normal Hba1C [facility] ([facility]) ID Date Data Source [id number] 09/28/2020 12:00:00 AM EST [facility] ([facility]) Name Value Range Interpretation Code Description Data Sandra rce(s) Supporting Document(s) Hemoglobin A1c/Hemoglobin.total in Blood 11.4 % Above high normal Hba1C [facility]) ID Date Data Source [id number] 09/28/2020 12:00:00 AM EST [facility]) Name Value Range Interpretation Code Description Data Sandra rce(s) Supporting Document(s) Hemoglobin A1c/Hemoglobin.total in Blood 11.4 % Above high normal Hba1C [facility] ([facility]) ID Date Data Source [id number] 09/28/2020 12:00:00 AM EST [facility] ([facility]) Name Value Range Interpretation Code Description Data Sandra rce(s) Supporting Document(s) Hemoglobin A1c/Hemoglobin.total in Blood 11.4 % Above high normal Hba1C [facility]) ID Date Data Source [id number] 09/28/2020 12:00:00 AM EST [facility]) Name Value Range Interpretation Code Description Data Sandra rce(s) Supporting Document(s) Hemoglobin A1c/Hemoglobin.total in Blood 11.4 % Above high normal Hba1C [facility]) ID Date Data Source [id number] 09/28/2020 12:00:00 AM EST [facility]) Name Value Range Interpretation Code Description Data Sandra rce(s) Supporting Document(s) Hemoglobin A1c/Hemoglobin.total in Blood 11.4 % Above high normal Hba1C [facility]) ID Date Data Source [id number] 09/28/2020 12:00:00 AM EST [facility]) Name Value Range Interpretation Code Description Data Sandra rce(s) Supporting Document(s) Hemoglobin A1c/Hemoglobin.total in Blood 11.4 % Above high normal H[facility]) ID Date Data Source [id number] 09/28/2020 12:00:00 AM EST [facility]) Name Value Range Interpretation Code Description Data Sandra rce(s) Supporting Document(s) Hemoglobin A1c/Hemoglobin.total in Blood 11.4 % Above high normal Hba1C [facility]) Procedure Social History Code Duration Value Status Description Data Source(s ) Smoking 06/28/2021 12:00:00 AM EDT Unknown if ever smoked comp leted Unknown if ever smoked [facility] ([facility]) Smoking 06/07/2021 12:00:00 AM EDT Unknown if ever smoked comp leted Unknown if ever smoked [facility] ([facility]) Vital Signs ID Date Data Source [id number] Name Value Range Interpretation Code Description Data Source(s) Diastolic blood pressure 87 mm[Hg] 87 mm[Hg] [facility] ([facility]) Heart rate 100 /min 100 /min [facility] ([facility]) Oxygen saturation in Arterial blood by Pulse oximetry 96 % 96 % [facility] Body mass index (BMI) [Ratio] 24.3 kg/m2 24.3 k g/m2 [facility] ([facility]) Systolic blood pressure 117 mm[Hg] 117 mm[Hg] M EDENT ([facility]) Body weight 160.00 [lb_av] 160.00 [lb_av] MEDEN T ([facility]) Body weight 72.576 kg 72.576 kg [facility] ([facility]) Body height 68 [in_i] 68 [in_i] [facility] ([facility]) 5'8" Body surface area Derived from formula 1.86 m2 1.86 m2 [facility] ([facility]) Diastolic blood pressure 87 mm[Hg] 87 mm[Hg] VANESSA ([facility]) Body height 68 [in_i] 68 [in_i] VANESSA ([facility]) Body mass index (BMI) [Ratio] 24.3 kg/m2 24.3 k g/m2 V[facility] ([facility]) Systolic blood pressure 127 mm[Hg] 127 mm[Hg] A THENA ([facility]) Body weight 2560 [oz_av] 2560 [oz_av] VANESSA ([facility]) Diastolic blood pressure 87 mm[Hg] 87 mm[Hg] VANESSA ([facility]) Body height 68 [in_i] 68 [in_i] VANESSA ([facility]) Body mass index (BMI) [Ratio] 24.3 kg/m2 24.3 k g/m2 V[facility]SA ([facility]) Systolic blood pressure 127 mm[Hg] 127 mm[Hg] A THENA ([facility]) Body weight 2560 [oz_av] 2560 [oz_av] VANESSA ([facility]) Body height 68 [in_i] 68 [in_i] VANESSA ([facility]) Body height 68 [in_i] 68 [in_i] V[facility]ESSA ([facility]) Body height 68 [in_i] 68 [in_i] V[facility]ESSA ([facility]) Body height 68 [in_i] 68 [in_i] V[facility]ESSA ([facility]) Systolic blood pressure 145 mm[Hg] 145 mm[Hg] A THENA ([facility]) Diastolic blood pressure 81 mm[Hg] 81 mm[Hg] V[facility]ESSA ([facility]) Diastolic blood pressure 81 mm[Hg] 81 mm[Hg] V[facility]ESSA ([facility]) Body height 68 [in_i] 68 [in_i] VANESSA ([facility]) Systolic blood pressure 145 mm[Hg] 145 mm[Hg] A THENA ([facility]) Diastolic blood pressure 81 mm[Hg] 81 mm[Hg] VANESSA ([facility]) Body height 68 [in_i] 68 [in_i] [facility]ESSA ([facility]) Systolic blood pressure 145 mm[Hg] 145 mm[Hg] A THENA ([facility]) Diastolic blood pressure 81 mm[Hg] 81 mm[Hg] VANESSA ([facility]) Body height 68 [in_i] 68 [in_i] V[facility]ESSA ([facility]) Systolic blood pressure 145 mm[Hg] 145 mm[Hg] A THENA ([facility]) Body weight Measured 167.00 lbs Normal (applies to n on-numeric results) 167.00 lbs [facility] ([facility]) Body height 68 [in_i] 68 [in_i] VANESSA ([facility]) Body height 68 [in_i] 68 [in_i] VANESSA ([facility]) Body height 68 [in_i] 68 [in_i] V[facility]ESSA ([facility]) Body height 68 [in_i] 68 [in_i] V[facility]ESSA ([facility]) Body height 68 [in_i] 68 [in_i] [facility]ESSA ([facility]) Body temperature 98.5 [degF] 98.5 [degF] MEDENT ([facility]) Body weight 2720 [oz_av] 2720 [oz_av] VANESSA ([facility]) Diastolic blood pressure 79 mm[Hg] 79 mm[Hg] VANESSA ([facility]) Body height 68 [in_i] 68 [in_i] VANESSA ([facility]) Body mass index (BMI) [Ratio] 25.8 kg/m2 25.8 k g/m2 V[facility] ([facility]) Systolic blood pressure 120 mm[Hg] 120 mm[Hg] [facility] Diastolic blood pressure 79 mm[Hg] 79 mm[Hg] VANESSA ([facility]) Body height 68 [in_i] 68 [in_i] VANESSA ([facility]) Body mass index (BMI) [Ratio] 25.8 kg/m2 25.8 k g/m2 V[facility]ESSA ([facility]) Systolic blood pressure 120 mm[Hg] 120 mm[Hg] A THENA ([facility]) Body weight 2720 [oz_av] 2720 [oz_av] VANESSA ([facility]) Systolic blood pressure 120 mm[Hg] 120 mm[Hg] A THENA ([facility]) Diastolic blood pressure 79 mm[Hg] 79 mm[Hg] VANESSA ([facility]) Body height 68 [in_i] 68 [in_i] VANESSA ([facility]) Body mass index (BMI) [Ratio] 25.8 kg/m2 25.8 k g/m2 VANESSA ([facility]) Body weight 2720 [oz_av] 2720 [oz_av] VANESSA ([facility]) Diastolic blood pressure 79 mm[Hg] 79 mm[Hg] VANESSA ([facility]) Body height 68 [in_i] 68 [in_i] VANESSA ([facility]) Body mass index (BMI) [Ratio] 25.8 kg/m2 25.8 k g/m2 [facility]SA ([facility]) Systolic blood pressure 120 mm[Hg] 120 mm[Hg] A [facility] ([facility]) Body weight 2720 [oz_av] 2720 [oz_av] VANESSA ([facility]) Diastolic blood pressure 79 mm[Hg] 79 mm[Hg] VANESSA ([facility]) Body height 68 [in_i] 68 [in_i] VANESSA ([facility]) Body mass index (BMI) [Ratio] 25.8 kg/m2 25.8 k g/m2 V[facility]ESSA ([facility]) Systolic blood pressure 120 mm[Hg] 120 mm[Hg] A [facility] ([facility]) Body weight 2720 [oz_av] 2720 [oz_av] VANESSA ([facility]) Diastolic blood pressure 79 mm[Hg] 79 mm[Hg] VANESSA ([facility]) Body height 68 [in_i] 68 [in_i] VANESSA ([facility]) Body mass index (BMI) [Ratio] 25.8 kg/m2 25.8 k g/m2 V[facility]ESSA ([facility]) Systolic blood pressure 120 mm[Hg] 120 mm[Hg] A [facility] ([facility]) Body weight 2720 [oz_av] 2720 [oz_av] VANESSA ([facility]) Systolic blood pressure 124 mm[Hg] 124 mm[Hg] M EDENT ([facility] Body weight 160.00 [lb_av] 160.00 [lb_av] MEDEN T ([facility] Heart rate 71 /min 71 /min MEDENT ([facility] Body mass index (BMI) [Ratio] 24.3 kg/m2 24.3 k g/m2 MED[facility] ([facility] Body height 68 [in_i] 68 [in_i] [facility] ([facility] 5'8" Diastolic blood pressure 76 mm[Hg] 76 mm[Hg] [facility] ([facility] Body temperature 97.3 [degF] 97.3 [degF] MEDENT ([facility]) Diastolic blood pressure 87 mm[Hg] 87 mm[Hg] VANESSA ([facility]) Body height 68 [in_i] 68 [in_i] VANESSA ([facility]) Body mass index (BMI) [Ratio] 25.8 kg/m2 25.8 k g/m2 [facility] ([facility]) Systolic blood pressure 132 mm[Hg] 132 mm[Hg] A [facility] ([facility]) Body weight 2720 [oz_av] 2720 [oz_av] VANESSA ([facility]) Diastolic blood pressure 87 mm[Hg] 87 mm[Hg] VANESSA ([facility]) Body height 68 [in_i] 68 [in_i] VANESSA ([facility]) Body mass index (BMI) [Ratio] 25.8 kg/m2 25.8 k g/m2 [facility] ([facility]) Systolic blood pressure 132 mm[Hg] 132 mm[Hg] [facility] Body weight 2720 [oz_av] 2720 [oz_av] VANESSA ([facility]) Diastolic blood pressure 87 mm[Hg] 87 mm[Hg] VANESSA ([facility]) Body height 68 [in_i] 68 [in_i] [facility]ESSA ([facility]) Body mass index (BMI) [Ratio] 25.8 kg/m2 25.8 k g/m2 [facility] ([facility]) Systolic blood pressure 132 mm[Hg] 132 mm[Hg] [facility] Body weight 2720 [oz_av] 2720 [oz_av] VANESSA ([facility]) Diastolic blood pressure 87 mm[Hg] 87 mm[Hg] V[facility]ESSA ([facility]) Body height 68 [in_i] 68 [in_i] [facility] ([facility]) Body mass index (BMI) [Ratio] 25.8 kg/m2 25.8 k g/m2 [facility] ([facility]) Systolic blood pressure 132 mm[Hg] 132 mm[Hg] [facility]) Body weight 2720 [oz_av] 2720 [oz_av] [facility]ESSA ([facility]) Diastolic blood pressure 87 mm[Hg] 87 mm[Hg] [facility]SA ([facility]) Body height 68 [in_i] 68 [in_i] [facility] ([facility]) Body mass index (BMI) [Ratio] 25.8 kg/m2 25.8 k g/m2 [facility] ([facility]) Systolic blood pressure 132 mm[Hg] 132 mm[Hg] [facility]) Body weight 2720 [oz_av] 2720 [oz_av] VANESSA ([facility]) Systolic blood pressure 132 mm[Hg] 132 mm[Hg] [facility] Body weight 2720 [oz_av] 2720 [oz_av] VANESSA ([facility]) Diastolic blood pressure 87 mm[Hg] 87 mm[Hg] V[facility]ESSA ([facility]) Body height 68 [in_i] 68 [in_i] [facility] ([facility]) Body mass index (BMI) [Ratio] 25.8 kg/m2 25.8 k g/m2 V[facility] ([facility]) Diastolic blood pressure 87 mm[Hg] 87 mm[Hg] [facility] ([facility]) Body height 68 [in_i] 68 [in_i] [facility]ESSA ([facility]) Body mass index (BMI) [Ratio] 25.8 kg/m2 25.8 k g/m2 V[facility] ([facility]) Systolic blood pressure 132 mm[Hg] 132 mm[Hg] A THENA ([facility]) Body weight 2720 [oz_av] 2720 [oz_av] VANESSA ([facility]) Body height 68 [in_i] 68 [in_i] VANESSA ([facility]) Body height 68 [in_i] 68 [in_i] V[facility]SA ([facility]) Body height 68 [in_i] 68 [in_i] [facility] ([facility]) Body height 68 [in_i] 68 [in_i] [facility] ([facility]) Body height 68 [in_i] 68 [in_i] [facility] ([facility]) Body height 68 [in_i] 68 [in_i] [facility] ([facility]) Body height 68 [in_i] 68 [in_i] [facility] ([facility]) Body height 68 [in_i] 68 [in_i] [facility] ([facility]) Diastolic blood pressure 72 mm[Hg] 72 mm[Hg] V[facility] ([facility]) Body height 68 [in_i] 68 [in_i] V[facility]ESSA ([facility]) Body mass index (BMI) [Ratio] 26.2 kg/m2 26.2 k g/m2 [facility] ([facility]) Systolic blood pressure 124 mm[Hg] 124 mm[Hg] A THENA ([facility]) Body weight 2754 [oz_av] 2754 [oz_av] VANESSA ([facility]) Diastolic blood pressure 72 mm[Hg] 72 mm[Hg] VANESSA ([facility]) Body height 68 [in_i] 68 [in_i] [facility] ([facility]) Body mass index (BMI) [Ratio] 26.2 kg/m2 26.2 k g/m2 [facility] ([facility]) Systolic blood pressure 124 mm[Hg] 124 mm[Hg] A THENA ([facility]) Body weight 2754 [oz_av] 2754 [oz_av] VANESSA ([facility]) Diastolic blood pressure 72 mm[Hg] 72 mm[Hg] VANESSA ([facility]) Body height 68 [in_i] 68 [in_i] V[facility]ESSA ([facility]) Body mass index (BMI) [Ratio] 26.2 kg/m2 26.2 k g/m2 [facility] ([facility]) Systolic blood pressure 124 mm[Hg] 124 mm[Hg] A THENA ([facility]) Body weight 2754 [oz_av] 2754 [oz_av] VANESSA ([facility]) Diastolic blood pressure 72 mm[Hg] 72 mm[Hg] V[facility]ESSA ([facility]) Body height 68 [in_i] 68 [in_i] [facility] ([facility]) Body mass index (BMI) [Ratio] 26.2 kg/m2 26.2 k g/m2 [facility] ([facility]) Systolic blood pressure 124 mm[Hg] 124 mm[Hg] [facility] Body weight 2754 [oz_av] 2754 [oz_av] VANESSA ([facility]) Diastolic blood pressure 72 mm[Hg] 72 mm[Hg] VANESSA ([facility]) Body height 68 [in_i] 68 [in_i] V[facility]ESSA ([facility]) Body mass index (BMI) [Ratio] 26.2 kg/m2 26.2 k g/m2 V[facility] ([facility]) Systolic blood pressure 124 mm[Hg] 124 mm[Hg] A THENA ([facility]) Body weight 2754 [oz_av] 2754 [oz_av] VANESSA ([facility]) Diastolic blood pressure 72 mm[Hg] 72 mm[Hg] V[facility]SA ([facility]) Body height 68 [in_i] 68 [in_i] V[facility]ESSA ([facility]) Body mass index (BMI) [Ratio] 26.2 kg/m2 26.2 k g/m2 V[facility] ([facility]) Systolic blood pressure 124 mm[Hg] 124 mm[Hg] A THENA ([facility]) Body weight 2754 [oz_av] 2754 [oz_av] VANESSA ([facility]) Diastolic blood pressure 72 mm[Hg] 72 mm[Hg] V[facility]ESSA ([facility]) Body height 68 [in_i] 68 [in_i] [facility]ESSA ([facility]) Body mass index (BMI) [Ratio] 26.2 kg/m2 26.2 k g/m2 [facility] ([facility]) Systolic blood pressure 124 mm[Hg] 124 mm[Hg] A THENA ([facility]) Body weight 2754 [oz_av] 2754 [oz_av] V[facility]ESSA ([facility]) Diastolic blood pressure 72 mm[Hg] 72 mm[Hg] V[facility]ESSA ([facility]) Body height 68 [in_i] 68 [in_i] [facility] ([facility]) Body mass index (BMI) [Ratio] 26.2 kg/m2 26.2 k g/m2 [facility] ([facility]) Systolic blood pressure 124 mm[Hg] 124 mm[Hg] [facility] Body weight 2754 [oz_av] 2754 [oz_av] VANESSA ([facility]) Diastolic blood pressure 72 mm[Hg] 72 mm[Hg] V[facility]ESSA ([facility]) Body height 68 [in_i] 68 [in_i] [facility] ([facility]) Body mass index (BMI) [Ratio] 26.2 kg/m2 26.2 k g/m2 [facility] ([facility]) Systolic blood pressure 124 mm[Hg] 124 mm[Hg] A THENA ([facility]) Body weight 2754 [oz_av] 2754 [oz_av] [facility]ESSA ([facility]) Diastolic blood pressure 72 mm[Hg] 72 mm[Hg] V[facility]SA ([facility]) Body height 68 [in_i] 68 [in_i] [facility] ([facility]) Body mass index (BMI) [Ratio] 26.2 kg/m2 26.2 k g/m2 [facility] ([facility]) Systolic blood pressure 124 mm[Hg] 124 mm[Hg] A THENA ([facility]) Body weight 2754 [oz_av] 2754 [oz_av] [facility]ESSA ([facility]) Diastolic blood pressure 82 mm[Hg] 82 mm[Hg] V[facility]ESSA ([facility]) Body height 68 [in_i] 68 [in_i] [facility] ([facility]) Body mass index (BMI) [Ratio] 25.8 kg/m2 25.8 k g/m2 [facility] ([facility]) Systolic blood pressure 130 mm[Hg] 130 mm[Hg] [facility] Body weight 2710 [oz_av] 2710 [oz_av] VANESSA ([facility]) Diastolic blood pressure 82 mm[Hg] 82 mm[Hg] V[facility]ESSA ([facility]) Body height 68 [in_i] 68 [in_i] [facility] ([facility]) Body mass index (BMI) [Ratio] 25.8 kg/m2 25.8 k g/m2 [facility] ([facility]) Systolic blood pressure 130 mm[Hg] 130 mm[Hg] [facility] Body weight 2710 [oz_av] 2710 [oz_av] [facility]ESSA ([facility]) Diastolic blood pressure 82 mm[Hg] 82 mm[Hg] [facility] ([facility]) Body height 68 [in_i] 68 [in_i] [facility] ([facility]) Body mass index (BMI) [Ratio] 25.8 kg/m2 25.8 k g/m2 [facility] ([facility]) Systolic blood pressure 130 mm[Hg] 130 mm[Hg] [facility] Body weight 2710 [oz_av] 2710 [oz_av] [facility]ESSA ([facility]) Diastolic blood pressure 82 mm[Hg] 82 mm[Hg] [facility] ([facility]) Body height 68 [in_i] 68 [in_i] [facility] ([facility]) Body mass index (BMI) [Ratio] 25.8 kg/m2 25.8 k g/m2 [facility] ([facility]) Systolic blood pressure 130 mm[Hg] 130 mm[Hg] A THENA ([facility]) Body weight 2710 [oz_av] 2710 [oz_av] [facility]ESSA ([facility]) Diastolic blood pressure 82 mm[Hg] 82 mm[Hg] [facility] ([facility]) Body height 68 [in_i] 68 [in_i] [facility] ([facility]) Body mass index (BMI) [Ratio] 25.8 kg/m2 25.8 k g/m2 [facility] ([facility]) Systolic blood pressure 130 mm[Hg] 130 mm[Hg] A [facility] ([facility]) Body weight 2710 [oz_av] 2710 [oz_av] VANESSA ([facility]) Diastolic blood pressure 82 mm[Hg] 82 mm[Hg] VANESSA ([facility]) Body height 68 [in_i] 68 [in_i] [facility] ([facility]) Body mass index (BMI) [Ratio] 25.8 kg/m2 25.8 k g/m2 [facility] ([facility]) Systolic blood pressure 130 mm[Hg] 130 mm[Hg] [facility] Body weight 2710 [oz_av] 2710 [oz_av] [facility]ESSA ([facility]) Diastolic blood pressure 82 mm[Hg] 82 mm[Hg] V[facility]ES[facility] ([facility]) Body height 68 [in_i] 68 [in_i] V[facility] ([facility]) Body mass index (BMI) [Ratio] 25.8 kg/m2 25.8 k g/m2 [facility] ([facility]) Systolic blood pressure 130 mm[Hg] 130 mm[Hg] [facility] HOSPITALA ([facility]) Body weight 2710 [oz_av] 2710 [oz_av] VANESSA ([facility]) Diastolic blood pressure 82 mm[Hg] 82 mm[Hg] VANESSA ([facility]) Body height 68 [in_i] 68 [in_i] VANESSA ([facility]) Body mass index (BMI) [Ratio] 25.8 kg/m2 25.8 k g/m2 VANESSA ([facility]) Systolic blood pressure 130 mm[Hg] 130 mm[Hg] A THENA ([facility]) Body weight 2710 [oz_av] 2710 [oz_av] VANESSA ([facility]) Diastolic blood pressure 82 mm[Hg] 82 mm[Hg] VANESSA ([facility]) Body height 68 [in_i] 68 [in_i] VANESSA ([facility]) Body mass index (BMI) [Ratio] 25.8 kg/m2 25.8 k g/m2 VANESSA ([facility]) Systolic blood pressure 130 mm[Hg] 130 mm[Hg] A [facility] ([facility]) Body weight 2710 [oz_av] 2710 [oz_av] VANESSA ([facility]) Diastolic blood pressure 82 mm[Hg] 82 mm[Hg] VANESSA ([facility]) Body height 68 [in_i] 68 [in_i] VANESSA ([facility]) Body mass index (BMI) [Ratio] 25.8 kg/m2 25.8 k g/m2 VANESSA ([facility]) Systolic blood pressure 130 mm[Hg] 130 mm[Hg] A THENA ([facility]) Body weight 2710 [oz_av] 2710 [oz_av] VANESSA ([facility]) Diastolic blood pressure 82 mm[Hg] 82 mm[Hg] VANESSA ([facility]) Body height 68 [in_i] 68 [in_i] VANESSA ([facility]) Body mass index (BMI) [Ratio] 25.8 kg/m2 25.8 k g/m2 VANESSA ([facility]) Systolic blood pressure 130 mm[Hg] 130 mm[Hg] A [place] ([facility]) Body weight 2710 [oz_av] 2710 [oz_av] VANESSA ([facility]) Patient Treatment Plan of Care Planned Activity Planned Date Details Description Data Source (s) [facility] sitagliptin 50 MG Oral Tablet [Januvia] VANESSA ([facility]) sitagliptin 25 MG Oral Tablet [facility]uvia[facility] 3 ML Insulin Lispro 100 UNT/ML Pen Injector [Humalog] [facility] gabapentin 300 MG Oral Capsule VANESSA ([facility]) Cyclobenzaprine hydrochloride 5 MG Oral Tablet VANESSA ([facility]) Cephalexin 500 MG [facility]ule [facility] atorvastatin 20 MG Oral [facility]t [facility] atorvastatin 10 MG Oral Tablet [facility] Acyclovir 200 MG Oral [facility]apsule [facility] 0.5 ML dulaglutide 1.5 MG/ML Auto-Injector [Trulicity] VANESSA ([facility]) 1.5 ML Insulin Glargine 300 UNT/ML Pen Injector [Toujeo] VANESSA ([facility]) Suprep Bowel Prep Kit 17.5 gram-3.13 gram-1.6 gram ora l solution MX AND DRK UTD VANESSA ([facility]) Naproxen 500 MG Oral Tablet VANESSA ([facility]) sitagliptin 50 MG Oral Tablet [Januvia] VANESSA ([facility]) sitagliptin 25 MG Oral Tablet [Januvia] VANESSA ([facility]) 3 ML Insulin Lispro 100 UNT/ML Pen Injector [Humalog] VANESSA ([facility]) gabapentin 300 MG Oral Capsule VANESSA ([facility]) Cyclobenzaprine hydrochloride 5 MG Oral Tablet VANESSA ([facility]) Cephalexin 500 MG Oral Capsule VANESSA ([facility]) atorvastatin 20 MG Oral Tablet VANESSA ([facility]) atorvastatin 10 MG Oral Tablet VANESSA ([facility]) Acyclovir 200 MG Oral Capsule VANESSA ([facility]) 0.5 ML dulaglutide 1.5 MG/ML Auto-Injector [Trulicity] VANESSA ([facility]) 1.5 ML Insulin Glargine 300 UNT/ML Pen Injector [Toujeo] VANESSA ([facility]) Suprep Bowel Prep Kit 17.5 gram-3.13 gram-1.6 gram ora l solution MX AND DRK UTD VANESSA ([facility]) Naproxen 500 MG Oral Tablet VANESSA ([facility]) sitagliptin 25 MG Oral Tablet [Januvia] VANESSA ([facility]) 3 ML Insulin Lispro 100 UNT/ML Pen Injector [Humalog] VANESSA ([facility]) gabapentin 300 MG Oral Capsule VANESSA ([facility]) Cyclobenzaprine hydrochloride 5 MG Oral Tablet VANESSA ([facility]) atorvastatin 20 MG Oral Tablet VANESSA ([facility]) 0.5 ML dulaglutide 1.5 MG/ML Auto-Injector [Trulicity] VANESSA ([facility]) 1.5 ML Insulin Glargine 300 UNT/ML Pen Injector [Toujeo] VANESSA ([facility]) Suprep Bowel Prep Kit 17.5 gram-3.13 gram-1.6 gram ora l solution MX AND DRK UTD VANESSA ([facility]) Naproxen 500 MG Oral Tablet VANESSA ([facility]) sitagliptin 25 MG Oral Tablet [Januvia] VANESSA ([facility]) 3 ML Insulin Lispro 100 UNT/ML Pen Injector [Humalog] VANESSA ([facility]) gabapentin 300 MG Oral Capsule VANESSA ([facility]) Cyclobenzaprine hydrochloride 5 MG Oral Tablet VANESSA ([facility]) atorvastatin 20 MG Oral Tablet [facility]ESSA ([facility]) 0.5 ML dulaglutide 1.5 MG/ML Auto-Injector [facility]Trulicity] [facility] 1.5 ML Insulin Glargine 300 UNT/ML Pen Injector [Toujeo] VANESSA ([facility]) Suprep Bowel Prep Kit 17.5 gram-3.13 gram-1.6 gram ora l solution MX AND DRK UTD VANESSA ([facility]) Naproxen 500 MG Oral Tablet VANESSA ([facility]) sitagliptin 25 MG Oral Tablet [Januvia] VANESSA ([facility]) 3 ML Insulin Lispro 100 UNT/ML Pen Injector [facility]Humalog] [facility] gabapentin 300 MG Oral Capsule VANESSA ([facility]) Cyclobenzaprine hydrochloride 5 MG Oral Tablet VANESSA ([facility]) atorvastatin 20 MG Oral Tablet VANESSA ([facility]) 0.5 ML dulaglutide 1.5 MG/ML Auto-Injector [Trulicity] VANESSA ([facility]) 1.5 ML Insulin Glargine 300 UNT/ML Pen Injector [Toujeo] VANESSA ([facility]) Suprep Bowel Prep Kit 17.5 gram-3.13 gram-1.6 gram ora l solution MX AND DRK UTD VANESSA ([facility]) Naproxen 500 MG Oral Tablet VANESSA ([facility]) sitagliptin 25 MG Oral Tablet [Januvia] VANESSA ([facility]) 3 ML Insulin Lispro 100 UNT/ML Pen Injector [Humalog] VANESSA ([facility]) gabapentin 300 MG Oral Capsule VANESSA ([facility]) Cyclobenzaprine hydrochloride 5 MG Oral Tablet AVNESSA ([facility]) atorvastatin 20 MG Oral Tablet VANESSA ([facility]) 0.5 ML dulaglutide 1.5 MG/ML Auto-Injector [Trulicity] VANESSA ([facility]) 1.5 ML Insulin Glargine 300 UNT/ML Pen Injector [Toujeo] VANESSA ([facility]) Suprep Bowel Prep Kit 17.5 gram-3.13 gram-1.6 gram ora l solution MX AND DRK UTD [place] ([facility]) Naproxen 500 MG Oral Tablet VANESSA ([facility]) sitagliptin 25 MG Oral Tablet [Januvia] VANESSA ([facility]) 3 ML Insulin Lispro 100 UNT/ML Pen Injector [Humalog] VANESSA ([facility]) gabapentin 300 MG Oral Capsule VANESSA ([facility]) Cyclobenzaprine hydrochloride 5 MG Oral Tablet VANESSA ([facility]) atorvastatin 20 MG Oral Tablet VANESSA ([facility]) 0.5 ML dulaglutide 1.5 MG/ML Auto-Injector [Trulicity] VANESSA ([facility]) 1.5 ML Insulin Glargine 300 UNT/ML Pen Injector [Toujeo] VANESSA ([facility]) Suprep Bowel Prep Kit 17.5 gram-3.13 gram-1.6 gram ora l solution MX AND DRK UTD [place] ([facility]) OneTouch Verio test strips U UTD TO TEST TID VANESSA ([facility]) Naproxen 500 MG Oral Tablet VANESSA ([facility]) sitagliptin 25 MG Oral Tablet [facility]uvia] [facility] 3 ML Insulin Lispro 100 UNT/ML Pen Injector [Humalog] [place] ([facility]) gabapentin 300 MG Oral Capsule VANESSA ([facility]) Cyclobenzaprine hydrochloride 5 MG Oral Tablet VANESSA ([facility]) atorvastatin 20 MG Oral Tablet VANESSA ([facility]) 0.5 ML dulaglutide 1.5 MG/ML Auto-Injector [Trulicity] VANESSA ([facility]) 1.5 ML Insulin Glargine 300 UNT/ML Pen Injector [Toujeo] VANESSA ([facility]) Suprep Bowel Prep Kit 17.5 gram-3.13 gram-1.6 gram ora l solution MX AND DRK UTD [place] ([facility]) OneTouch Verio test strips U UTD TO TEST TID VANESSA ([facility]) Naproxen 500 MG Oral Tablet VANESSA ([facility]) sitagliptin 25 MG Oral Tablet [Januvia] VANESSA ([facility]) 3 ML Insulin Lispro 100 UNT/ML Pen Injector [facility]Humalog] [facility] gabapentin 300 MG Oral Capsule VANESSA ([facility]) Cyclobenzaprine hydrochloride 5 MG Oral Tablet VANESSA ([facility]) atorvastatin 20 MG Oral Tablet VANESSA ([facility]) 0.5 ML dulaglutide 1.5 MG/ML Auto-Injector [Trulicity] VANESSA ([facility]) 1.5 ML Insulin Glargine 300 UNT/ML Pen Injector [Toujeo] VANESSA ([facility]) Suprep Bowel Prep Kit 17.5 gram-3.13 gram-1.6 gram ora l solution MX AND DRK UTD VANESSA ([facility]) OneTouch Verio test strips U UTD TO TEST TID VANESSA ([facility]) Naproxen 500 MG Oral Tablet VANESSA ([facility]) sitagliptin 25 MG Oral Tablet [Januvia] VANESSA ([facility]) 3 ML Insulin Lispro 100 UNT/ML Pen Injector [Humalog] VANESSA ([facility]) gabapentin 300 MG Oral Capsule VANESSA ([facility]) Cyclobenzaprine hydrochloride 5 MG Oral Tablet VANESSA ([facility]) atorvastatin 20 MG Oral Tablet V[facility]ESSA ([facility]) 0.5 ML dulaglutide 1.5 MG/ML Auto-Injector [Trulicity] VANESSA ([facility]) 1.5 ML Insulin Glargine 300 UNT/ML Pen Injector [Toujeo] [place] ([facility]) Suprep Bowel Prep Kit 17.5 gram-3.13 gram-1.6 gram ora l solution MX AND DRK UTD [place] ([facility]) OneTouch Verio test strips U UTD TO TEST TID [place] ([facility]) Naproxen 500 MG Oral Tablet [place] ([facility]) 3 ML Insulin Lispro 100 UNT/ML Pen Injector [Humalog] [facility]) Cyclobenzaprine hydrochloride 5 MG Oral Tablet [place] ([facility]) atorvastatin 20 MG Oral Tablet [place] ([facility]) 0.5 ML dulaglutide 1.5 MG/ML Auto-Injector [Trulicity] [facility]) 1.5 ML Insulin Glargine 300 UNT/ML Pen Injector [Toujeo] [place] ([facility]) Suprep Bowel Prep Kit 17.5 gram-3.13 gram-1.6 gram ora l solution MX AND DRK UTD [place] ([facility])
[2021-09-14] MEDS ORDERED: CIPROFLOXACIN 400 MG in IV 1 EA IV ONE (17:45)
[2021-09-14] MEDS ORDERED: TAMSULOSIN 0.4 MG CAP PO ONE (17:45)
[2021-09-14] MEDS ORDERED: CIPR-249 PO (17:46)
[2021-09-14] MEDS ORDERED: FLOM0.4C39 PO (17:46)
[2021-09-14 19:00] VITALS: BP 128/65
--- NOTE | 2021-09-15 20:09 | ECGEPIP ---
[facility] - ED Test Date: 2021-09-14 Pat Name: MARILIN ROSENBERG Department: Room: - Gender: Male Portuguese Tutor: JOSE : 1970 Requested By: Sarah Echols Order Number: [id number] Reading MD: Sarah Echols Measurements Intervals Hagerman Rate: 82 P: 88 IN: 170 QRS: 24 QRSD: 86 T: 76 QT: 398 QTc: 464 Interpretive Statements Sinus rhythm with occasional premature ventricular complexes Low voltage QRS prwp increased rate 08/31/21 Electronically Signed on 09-15-2021 20:09:21 EDT by Sarah Echols
== END 2021-09-14 19:23 | disposition home or self-care (01) ==
LOC: M ED 13:47 → EDBD 13:47 → M ED 19:23
DX: N39.0 Urinary tract infection, site not specified (principal); R33.9 Retention of urine, unspecified; E11.9 Type 2 diabetes mellitus without complications; G89.29 Other chronic pain; Z79.899 Other long term (current) drug therapy; Z79.82 Long term (current) use of aspirin
CPT/HCPCS: 51702; 74176; 80048; 80076; 81001; 83690; 85025; 87088; 87186; 93005; 96361; 96365; 96375; 99285; J0744; J2405

== ENCOUNTER 2021-09-20 13:03 | Emergency (ER) | payer MEDICARE, MEDICAID ==
[~2021-09-20] VITALS: Ht 172.7 cm; Wt 71.7 kg
[~2021-09-20 13:03] MED LIST changes: +CIPR-249 PO; +FLOM0.4C39 PO
--- OUTSIDE RECORDS SUMMARY | 2021-09-20 13:12 | CCD | Continuity of Care Document ---
Author Author Greg TITUS Organization Unknown Address [facility] [place] [address] Phone [phone] Care Team Providers Care Beef Specialist Name Role Phone [facility] AUTM Glory Fischer MD AUTM [phone] Casey Spaulding MD AUTM [facility] AUTM Eligio Sandhu AUTM [phone] [facility] Behavioral Health AUTM [phone] Ciara David AUTM [phone] Chris Jamil AUTM [phone] Vicki Galindo M.D. AUTM [phone] Problems Active Problems Provider Date Type 2 [...] Galindo M.D. Onset: 09/03/2018 Note: C5, C6, [id number] by NCS. Dr Deric Sandhu. Carpal tunnel [...] CPT Code Status Date Vaccine Lot # [id number] Given 12/16/2019 Tdap (Boostrix/Adacel) Vacci ne [id number] [...] Date Facility Test Result H/L Range Note Covid-19 09/12/2021 [facility] Sars-CoV-2, Cira Not Detected Not Detected 1 Sars-CoV-2, Cira 2 Day Tat Performed Inhouse [facility] 09/07/2021 In Office [facility] Color yellow Normal: Yellow [facility] Appearance clear Normal: Clear Spec [place] 1.010 1.001-1.030 [facility] PH Test Strip 5 5-9 Leukocytes - Normal: Negative [facility] Nitrate - Normal: Negative [facility] Protein trace Normal: Negative Inhouse Glucose 1000 High Normal: Negative Ua Ketones - Noraml: Negative Urobilinogen - Normal: Negative Ua Bilirubin - Normal: Negative Blood 250 High Noraml: Negative 1 This nucleic acid amplificat ion test was developed and its performance characteristics determined by [employer]. Nucleic acid amplification tests include RT-PCR and [...] negative (not detected) result in this assay. Procedures Date Code Description Status 09/07/2021 63697 Office/Outpatient Established Mo d MDM 30-39 Min Completed 04/06/2021 47386 Office/Outpatient Established Lo w MDM 20-29 Min Completed Medical Devices Description No Information Available Encounters Description No Information Available Assessments Date Code Description Provider 09/07/2021 R33.9 Retention of urine, unspecified Willy T. Oben, M.D. 09/07/2021 N13.39 Other hydronephrosis Willy marte M.D. 09/07/2021 N40.1 Benign prostatic hyperplasia wit h lower urinary tract symptoms Willy Hagan M.D. 09/07/2021 R81 Glycosuria Cecil Bolaños 09/07/2021 R31.29 Other microscopic hematuria Janice Hagan M.D. 04/06/2021 M54.2 Cervicalgia Vicki Galindo M.D. 04/06/2021 M54.12 Radiculopathy, cervical region Dominique Galindo M.D. Plan of Treatment Future Appointment(s):* 09/16/2021 6:00 am - Willy Hagan M.D. at [facility] 09/07/2021 - Willy Hagan M.D.* R33.9 Retention of urine, unspecified* Comments:* 1. Patient presents to the clinic today with urinary retention and a catheter placement for ER follow up.2. Physical examination showed 50 g non- nodular, smooth, and normal median sulcus prostate, otherwise unremarkable. 3. 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 We will leave the catheter in to find out whether his symptoms are from outlet obstruction or from poor detrusor function.4. Cystoscopy to evaluate for bladder outlet obstruction. Pre and post procedure guidelines explained. 5. He was advised to call or RTC if he develops any concerns.6. Follow up to be decided after the procedure is done. He may or may not need UDS if outlet obstruction is not noted. * N13.39 Other hydronephrosis* Comments:* 1. He has urinary retention with bilateral hydronephrosis and chronic obstruction.2. CT of the abdomen and pelvis done in the ER revealed distended bladder with symmetric bilateral hydroureteronephrosis secondary to outlet obstruction with enlarged heterogenous prostate gland. 3. Plan as above. * N40.1 Benign prostatic hyperplasia with lower urinary tract symptoms* Comments:* Physical examination showed 50 g non-nodular, smooth, and normal median sulcus prostate, otherwise unremarkable. Plan as above. * R81 Glycosuria* Comments:* Patient is diabetic.In house urinalysis showed trace protein, glucose of 1000, and blood of 250, otherwise unremarkable. * R31.29 Other microscopic hematuria* Comments:* In house urinalysis showed trace protein, glucose of 1000, and blood of 250, otherwise unremarkable. Functional Status Functional Condition Comment Date Status Glasses Active Mental Status Description No Information Available Referrals Description No Information Available
--- OUTSIDE RECORDS SUMMARY | 2021-09-20 13:15 | CCD ---
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 Role Phone Suraj Motta MD Unavailable [...] Unavailable Unavailable Suraj Motta MD Unavailable Unavailable Suarj Motta MD Unavailable Unavailable Suraj Motta MD [...] Unavailable Edson, Eligio MORALES Unavailable Unavailable Edson, lEigio MORALES Unavailable Unavailable Edson, Eligio MORALES Unavailable Unavailable Edson, Eligio MORALES Unavailable Unavailable Edson, Eligio MORALES Unavailable Unavailable Edson, Eligio MORALES Unavailable Unavailable Sandra Chicas INTAKE WORKER INTAKE WORKER Unavailable Unavailable Bartoszewski, Kelsea Darling MS, RPA-C [...] Darling MS, RPA-C Unavailable Unav ailable Bartoszewski, Kelsae Darling MS, RPA-C Unavailable Unav ailable Bartoszewski, Kelsea Darling MS, RPA-C Unavailable Unav ailable Bartoszewski, Kelsea Darling MS, RPA-C Unavailable Unav ailable Harp, Carlos Coemr MD Unavailable Unavailable Harp, Carlos Comer MD [...] Unavailable Bakari YAN MD Unavailable Unavailable Bakari AYN MD Unavailable Unavailable Bakari YAN MD Unavailable [...] is protected by Article 27-F of the [facility] Public Health law. If you continue you may have access to information: Regarding HIV / AIDS; Provided by facilities licensed or operated by the [facility] Office of Mental Health; or Provided by the [facility] Office for People With Developmental Disabilities. If such information is present, then the following [facility] mandated warning applies: This information has [...] Known Drug Allergies No Known Drug Allergies [facility] No Known Food Allergies No Known Food Allergies [facility] Propensity to adverse reactions seasonal seasonal [facility] Family History Family Member Name Family Member Gender Family Member Status Date o f Status Description Data Source(s) Unknown Male Problem [facility] ([facility]) Encounters Encounter Providers Location Date Indications Data Source(s ) Outpatient Attender: ELISE YAN MDConsultant: Glory castillo MD 09/15/2021 10:26:01 AM EDT - 09/15/2021 12:55:00 PM EDT [facility] Patient discharged. Outpatient Attender: Darling Salguero i MS, RPA-CConsultant: Glory Fischer MD 09/12/2021 09:43:00 AM EDT - 09/12/2021 10:43:00 AM EDT [facility] Patient discharged. Gonzalo Motta MD: [address], [place] [address], Ph. Attender: Gonzalo Motta MD [facility] Medical 09/08/2021 12:00:00 AM EDT [facility] ([facility]) Outpatient Attender: ELISE YAN MDConsultant: Glory castillo MD 09/07/2021 08:07:00 AM EDT - 09/07/2021 08:07:00 AM EDT [facility] Jana Wylie PA-C: [address], [facility] [place] [address], Ph. Attender: Jana PERDOMO [facility] Medical 08/25/2021 12:00:00 AM EDT [facility]) Jana Wylie PA-C: [address], [place] [address], Ph. Attender: Jana PERDOMO [facility] Medical 08/25/2021 12:00:00 AM EDT [facility]) Jana Wylie PA-C: [address], [facility] [address], Ph. Attender: Jana PERDOMO [facility] Medical 07/05/2021 12:00:00 AM EDT [facility] ([facility]) Jana Wylie PA-C: [address], [place] [address], Ph. Attender: Jana PERDOMO [facility] Medical 07/05/2021 12:00:00 AM EDT [facility]) Jana Wylie PA-C: [address], [place] [address], Ph. Attender: Jana PERDOMO [facility] Medical 07/05/2021 12:00:00 AM EDT [facility] ([facility]) Extended Individual Psychotherapy - 45 min Attender: Taylor Guajardo [facility] 06/28/2021 01:45:00 AM EDT - 06/28/2021 01:45:00 AM EDT [facility] ([facility]) Jana Wylie PA-C: [address], [place] [address], Ph. Attender: Jana PERDOMO [facility] Medical 06/28/2021 12:00:00 AM EDT [facility] ([facility]) Jana Wylie PA-C: [address], [place] [address], Ph. Attender: Jana PERDOMO [facility] Medical 06/28/2021 12:00:00 AM EDT [facility] ([facility]) Jana Wylie PA-C: [address], [place] [address], Ph. Attender: Jana PERDOMO [facility] Medical 06/28/2021 12:00:00 AM EDT [facility] ([facility]) Jana Wylie PA-C: [address], [place] [address], Ph. Attender: Jana PERDOMO [facility] Medical 06/28/2021 12:00:00 AM EDT [facility] ([facility]) Attender: Sallie Guajardo 06/28/2021 12:00:0 0 AM EDT [facility] ([facility]) Outpatient [id number] 06/14/2021 11:48:03 AM EDT [facility] Telemed Diagnostic Eval Attender: Souleymane Harp MD [facility] 06/07/2021 08:30:00 AM EDT - 06/07/2021 08:30:00 AM EDT [facility] ([facility]) Attender: Souleymane Harp MD 06/07/2021 12:00:00 AM EDT [facility] ([facility]) Outpatient Attender: Eligio Sandhu MD Main office - [place] 05/10/2021 01:15:00 PM EDT [facility] ([facility]) Gonzalo Motta MD: [address] [place] [address], Ph. Attender: Gonzalo Motta MD [facility] Medical 04/25/2021 12:00:00 AM EDT [facility] ([facility]) Gonzalo Motta MD: [address] [place] [address], Ph. Attender: Gonzalo Motta MD [facility] Medical 04/25/2021 12:00:00 AM EDT [facility] ([facility]) Gonzalo Motta MD: [address] [place] [address], Ph. Attender: Gonzalo Motta MD [facility] Medical 04/25/2021 12:00:00 AM EDT [facility] ([facility]) Gonzalo Motta MD: [address] [place] [address], Ph. Attender: Gonzalo Motta MD [facility] Medical 04/25/2021 12:00:00 AM EDT [facility] ([facility]) Gonzalo Motta MD: [address] [place] [address], Ph. Attender: Gonzalo Motta MD [facility] Medical 04/25/2021 12:00:00 AM EDT [facility] ([facility]) Outpatient Attender: Eligio Sandhu MD Main office - [place] 04/07/2021 03:15:00 PM EDT [facility] ([facility] ) Outpatient Attender: ESME STYLES MDConsultant: Glory ann MD 04/06/2021 03:08:00 PM EDT - 04/06/2021 03:08:00 PM EDT [facility] Jana Wylie PA-C: [address], [place] [address], Ph. Attender: Jana PERDOMO [facility] Medical 03/21/2021 12:00:00 AM EDT [facility] ([facility]) Jana Wylie PA-C: [address], [place] [address], Ph. Attender: Jana PERDOMO [facility] Medical 03/21/2021 12:00:00 AM EDT [facility] ([facility]) Jana Wylie PA-C: [address], [place] [address], Ph. Attender: Jana PERDOMO [facility] Medical 03/21/2021 12:00:00 AM EDT [facility] ([facility]) Jana Wylie PA-C: [address], [place] [address], Ph. Attender: Jana PERDOMO [facility] Medical 03/21/2021 12:00:00 AM EDT [facility] ([facility]) Jana Wylie PA-C: [address], [place] [address], Ph. Attender: Jana PERDOMO [facility] Medical 03/21/2021 12:00:00 AM EDT [facility] ([facility]) Jana Wylie PA-C: [address], [place] [address], Ph. Attender: Jana PERDOMO [facility] Medical 03/21/2021 12:00:00 AM EDT [facility] ([facility]) Outpatient Attender: ЕКАТЕРИНА WILSON [facility] Office 02/18 08:15:00 AM EDT [facility] ([facility] Outpatient Attender: ESME Caceres nder: ELISE YAN MDConsultant: Glory Fischer MD 03/11/2021 02:01:00 PM EDT - 03/11/2021 02:01:00 PM EDT [facility] Jana Wylie PA-C: [address], [place] [address], Ph. Attender: Jana PERDOMO [facility] Medical 03/10/2021 12:00:00 AM EDT [facility] ([facility]) Jana Wylie PA-C: [address], [place] [address], Ph. Attender: Jana PERDOMO [facility] Medical 03/10/2021 12:00:00 AM EDT [facility] ([facility]) Jana Wylie PA-C: [address], [place] [address], Ph. Attender: Jana PERDOMO [facility] Medical 03/10/2021 12:00:00 AM EDT [facility] ([facility]) Jana Wylie PA-C: [address], [place] [address], Ph. Attender: Jana PERDOMO [facility] Medical 03/10/2021 12:00:00 AM EDT [facility] ([facility]) Jana Wylie PA-C: [address], [place] [address], Ph. Attender: Jana PERDOMO [facility] Medical 03/10/2021 12:00:00 AM EDT [facility] ([facility]) Jana Wylie PA-C: [address], [place] [address], Ph. Attender: Jana PERDOMO [facility] Medical 03/10/2021 12:00:00 AM EDT [facility] ([facility]) Jana Wylie PA-C: [address], [place] [address], Ph. Attender: Jana PERDOMO [facility] Medical 03/10/2021 12:00:00 AM EDT [facility] ([facility]) Jana Wylie PA-C: [address], [place] [address], Ph. Attender: Jana PERDOMO [facility] Medical 03/09/2021 12:00:00 AM EDT [facility] ([facility]) Jana Wylie PA-C: [address], [place] [address], Ph. Attender: Jana PERDOMO [facility] Medical 03/09/2021 12:00:00 AM EDT [facility] ([facility]) Jana Wylie PA-C: [address], [place] [address], Ph. Attender: Jana PERDOMO [facility] Medical 03/09/2021 12:00:00 AM EDT [facility] ([facility]) Jana Wylie PA-C: [address], [place] [address], Ph. Attender: Jana PERDOMO [facility] Medical 03/09/2021 12:00:00 AM EDT [facility] ([facility]) Jana Wylie PA-C: [address], [place] [address], Ph. Attender: Jana PERDOMO [facility] Medical 03/09/2021 12:00:00 AM EDT [facility] ([facility]) Jana Wylie PA-C: [address], [place] [address], Ph. Attender: Jana PERDOMO [facility] Medical 03/09/2021 12:00:00 AM EDT [facility] ([facility]) Jana Wylie PA-C: [address], [place] [address], Ph. Attender: Jana PERDOMO [facility] Medical 03/09/2021 12:00:00 AM EDT [facility] ([facility]) Jana Wylie PA-C: [address], [place] [address], Ph. Attender: Jana PERDOMO [facility] Medical 03/09/2021 12:00:00 AM EDT [facility] ([facility]) Gonzalo Motta MD: [address], [place] [address], Ph. Attender: Gonzalo Motta MD [facility] Medical 02/21/2021 12:00:00 AM EDT [facility] ([facility]) Gonzalo Motta MD: [address] [place] [address], Ph. Attender: Gonzalo Motta MD [facility] Medical 02/21/2021 12:00:00 AM EDT [facility] ([facility]) Gonzalo Motta MD: [address] [place] [address], Ph. Attender: Gonzalo Motta MD [facility] Medical 02/21/2021 12:00:00 AM EDT [facility] ([facility]) Gonzalo Motta MD: [address] [place] [address], Ph. Attender: Gonzalo Motta MD [facility] Medical 02/21/2021 12:00:00 AM EDT [facility] ([facility]) Gonzalo Motta MD: [address] [place] [address], Ph. Attender: Goznalo Motta MD [facility] Medical 02/21/2021 12:00:00 AM EDT [facility] ([facility]) Gonzalo Motta MD: [address] [place] [address], Ph. Attender: Gonzalo Motta MD [facility] Medical 02/21/2021 12:00:00 AM EDT [facility] ([facility]) Gonzalo Motta MD: [address] [place] [address], Ph. Attender: Gonzalo Motta MD [facility] Medical 02/21/2021 12:00:00 AM EDT [facility] ([facility]) Gonzalo Motta MD: [address] [place] [address], Ph. Attender: Gonzalo Motta MD [facility] Medical 02/21/2021 12:00:00 AM EDT [facility] ([facility]) Gonzalo Motta MD: [address], [place] [address], Ph. Attender: Gonzalo Motta MD [facility] Medical 02/21/2021 12:00:00 AM EDT [facility] ([facility]) Jana Wylie PA-C: [address], [place] [address], Ph. Attender: Jana PERDOMO [facility] Medical 02/15/2021 12:00:00 AM EDT [facility] ([facility]) Jana Wylie PA-C: [address], [place] [address], Ph. Attender: Jana PERDOMO [facility] Medical 02/15/2021 12:00:00 AM EDT [facility] ([facility]) Jana Wylie PA-C: [address], [place] [address], Ph. Attender: Jana PERDOMO [facility] Medical 02/15/2021 12:00:00 AM EDT [facility] ([facility]) Jana Wylie PA-C: [address], [place] [address], Ph. Attender: Jana PERDOMO [facility] Medical 02/15/2021 12:00:00 AM EDT [facility] ([facility]) Jana Wylie PA-C: [address], [place] [address], Ph. Attender: Jana PERDOMO [facility] Medical 02/15/2021 12:00:00 AM EDT [facility] ([facility]) Jana Wylie PA-C: [address], [place] [address], Ph. Attender: Jana PERDOMO [facility] Medical 02/15/2021 12:00:00 AM EDT [facility] ([facility]) Jana Wylie PA-C: [address], [place] [address], Ph. Attender: Jana PERDOMO [facility] Medical 02/15/2021 12:00:00 AM EDT [facility] ([facility]) Jana Wylie PA-C: [address], [place] [address], Ph. Attender: Jana PERDOMO [facility] Medical 02/15/2021 12:00:00 AM EDT [facility] ([facility]) Jana Wylie PA-C: [address], [place] [address], Ph. Attender: Jana PERDOMO [facility] Medical 02/15/2021 12:00:00 AM EDT [facility] ([facility]) Jana Wylie PA-C: [address], [place] [address], Ph. Attender: Jana PERDOMO [facility] Medical 02/15/2021 12:00:00 AM EDT [facility] ([facility]) Outpatient Attender: MADHURI HELLER 09/30/2020 08:32:01 A M EST [facility] Jana Wylie PA-C: [address], [place] [address], Ph. Attender: Jana PERDOMO [facility] Medical 09/30/2020 12:00:00 AM EST [facility] ([facility]) Jana Wylie PA-C: [address], [place] [address], Ph. Attender: Jana PERDOMO [facility] Medical 09/30/2020 12:00:00 AM EST [facility] ([facility]) Jana Wylie PA-C: [address], [place] [address], Ph. Attender: Jana PERDOMO [facility] Medical 09/30/2020 12:00:00 AM EST [facility] ([facility]) Jana Wylie PA-C: [address], [place] [address], Ph. Attender: Jana PERDOMO [facility] Medical 09/30/2020 12:00:00 AM EST [facility] ([facility]) Jana Wylie PA-C: [address], [place] [address], Ph. Attender: Jana PERDOMO [facility] Medical 09/30/2020 12:00:00 AM EST [facility] ([facility]) Jana Wylie PA-C: [address], [place] [address], Ph. Attender: Jana PERDOMO [facility] Medical 09/30/2020 12:00:00 AM EST [facility] ([facility]) Jana Wylie PA-C: [address], [place] [address], Ph. Attender: Jana PERDOMO [facility] Medical 09/30/2020 12:00:00 AM EST [facility] ([facility]) Jana Wylie PA-C: [address], [place] [address], Ph. Attender: Jana PERDOMO [facility] Medical 09/30/2020 12:00:00 AM EST [facility] ([facility]) Jana Wylie PA-C: [address], [place] [address], Ph. Attender: Jana PERDOMO [facility] Medical 09/30/2020 12:00:00 AM EST [facility]) Jana Wylie PA-C: [address], [place] [address], Ph. Attender: Jana PERDOMO [facility] Medical 09/30/2020 12:00:00 AM EST [facility]) Jana Wylie PA-C: [address], [place] [address], Ph. Attender: Jana PERDOMO [facility] Medical 09/30/2020 12:00:00 AM [facility] Outpatient Attender: ESME STYLES MDConsultant: Glory ann MD 10/15/2018 01:14:32 PM [facility] - 10/15/2018 01:13:00 PM [facility] Functional Status Immunizations Vaccine Date Status Description Data Source(s) COVID-19, mRNA, LNP-S, PF, 100 mcg/0.5 mL dose 09/08/2021 08 :59:35 AM EDT completed .5 mL [facility] ([facility]) COVID-19 VACCINE Moderna 09/08/2021 12:00:00 AM EDT completed [facility] Vaccine Series Complete: NOThis Data was Submitted to [facility] Via [employer]. Tdap 08/25/2021 04:27:00 PM EDT completed 08/25/2021 0.5 mL [facility] ([facility]) Medications Medication Brand Name Start Date Product Form Dose Route Admi nistrative Instructions Pharmacy Instructions Status Indications Reaction Description Data Source(s) 24 HR paliperidone 1.5 MG Extended Release Oral Tablet [Inve ga] Invega 06/07/2021 12:00:00 AM EDT 1.5 mg by mouth completed <td ID="MedicationRxNorm_3">608655</td><td ID="MedicationMedication_3">Invega</td><td ID="MedicationRoute_3">by mouth</td><td ID="MedicationRouteConcept_3">I59580</td><td ID="MedicationStartDate_3">06/07/2021</td><td ID="MedicationStopDate_3">07/07/2021</td><td ID="MedicationDosageFrequency_3">at bedtime</td><td ID="MedicationDuration_3">30</td><td ID="MedicationFormulaStrength_3">1.5 mg</td><td ID="MedicationDosageForm_3">tablet extended release 24hr</td><td ID="MedicationDosageFormCode_3"></td><td ID="MedicationDosageDescription_3"></td><td ID="MedicationMedicationId_3">[id number]</td><td ID="MedicationAccount_3">[id number]</td><td ID="MedicationNpid_3">[id number]</td><td ID="MedicationAuthorFirstName_3">Souleymane</td><td ID="MedicationAuthorLastName_3">Harp</td><td ID="MedicationTaxonomyCode_3">[id number]</td><td ID="MedicationTaxonomyDesc_3"> Psychiatry</td><td ID="MedicationPhoneNumber_3">[phone]</td> [facility] ([facility]) 24 HR paliperidone 1.5 MG Extended Release Oral Tablet [Inve ga] Invega 06/07/2021 12:00:00 AM EDT 1.5 mg by mouth completed <td ID="MedicationRxNorm_1">851359</td><td ID="MedicationMedication_1">Invega</td><td ID="MedicationRoute_1">by mouth</td><td ID="MedicationRouteConcept_1">N35370</td><td ID="MedicationStartDate_1">06/07/2021</td><td ID="MedicationStopDate_1">07/07/2021</td><td ID="MedicationDosageFrequency_1">at bedtime</td><td ID="MedicationDuration_1">30</td><td ID="MedicationFormulaStrength_1">1.5 mg</td><td ID="MedicationDosageForm_1">tablet extended release 24hr</td><td ID="MedicationDosageFormCode_1"></td><td ID="MedicationDosageDescription_1"></td><td ID="MedicationMedicationId_1">[id number]</td><td ID="MedicationAccount_1">[id number]</td><td ID="MedicationNpid_1">[id number]</td><td ID="MedicationAuthorFirstName_1">Souleymane</td><td ID="MedicationAuthorLastName_1">Loyd</td><td ID="MedicationTaxonomyCode_1">[id number]</td><td ID="MedicationTaxonomyDesc_1"> Psychiatry</td><td ID="MedicationPhoneNumber_1">[phone]</td> [facility] ([facility]) Fluoxetine 10 MG Oral Capsule [Prozac] Prozac 07/02/2018 12:0 0:00 AM EDT 10 mg completed <td ID="Me dicationRxNorm_2">793897</td><td ID="MedicationMedication_2">Prozac</td><td ID="MedicationRoute_2"></td><td ID="MedicationRouteConcept_2"></td><td ID="MedicationStartDate_2">07/02/2018</td><td ID="MedicationStopDate_2">06/07/2021</td><td ID="MedicationDosageFrequency_2">every morning</td><td ID="MedicationDuration_2"></td><td ID="MedicationFormulaStrength_2">10 mg</td><td ID="MedicationDosageForm_2">capsule</td><td ID="MedicationDosageFormCode_2"></td><td ID="MedicationDosageDescription_2">as directed</td><td ID="MedicationMedicationId_2">[id number]</td><td ID="MedicationAccount_2">[id number]</td><td ID="MedicationNpid_2">[id number]</td><td ID="MedicationAuthorFirstName_2">Elsa</td><td ID="MedicationAuthorLastName_2">MacQueen</td><td ID="MedicationTaxonomyCode_2">[id number]</td><td ID="MedicationTaxonomyDesc_2">Psychiatric/Mental Health</td><td ID="MedicationPhoneNumber_2">[phone]</td> [facility] ([facility]) Lurasidone Hydrochloride 80 MG Oral Tablet [Latuda] Latuda 07/19/2017 12:00:00 AM EDT 80 mg completed <td ID ="MedicationRxNorm_1">[id number]</td><td ID="MedicationMedication_1">Latuda</td><td ID="MedicationRoute_1"></td><td ID="MedicationRouteConcept_1"></td><td ID="MedicationStartDate_1">07/19/2017</td><td ID="MedicationStopDate_1">06/07/2021</td><td ID="MedicationDosageFrequency_1">once a day</td><td ID="MedicationDuration_1"></td><td ID="MedicationFormulaStrength_1">80 mg</td><td ID="MedicationDosageForm_1">tablet</td><td ID="MedicationDosageFormCode_1"></td><td ID="MedicationDosageDescription_1"></td><td ID="MedicationMedicationId_1">[id number]</td><td ID="MedicationAccount_1">[id number]</td><td ID="MedicationNpid_1">[id number]</td><td ID="MedicationAuthorFirstName_1">Elsa</td><td ID="MedicationAuthorLastName_1">MacQueen</td><td ID="MedicationTaxonomyCode_1">[id number]</td><td ID="MedicationTaxonomyDesc_1">Psychiatric/Mental Health</td><td ID="MedicationPhoneNumber_1">[phone]</td> [facility] ([facility]) atorvastatin 20 MG Oral Tablet atorvastatin 20 mg tabl et TK 1 T PO QD atorvastatin 20 mg tablet TK 1 T PO QD completed atorvastatin 20 MG Oral Tablet [facility] ([facility]) 0.5 ML dulaglutide 1.5 MG/ML Auto-Inject or [Trulicity] Trulicity 0.75 mg/0.5 mL subcutaneous pen injector Trulicity 0.75 mg/0.5 mL subcutaneous pen injector completed 0.5 ML dulaglu tide 1.5 MG/ML Auto-Injector [Trulicity] [facility] ([facility]) 0.5 ML dulaglutide 1.5 MG/ML Auto-Inject or [Trulicity] Trulicity 0.75 mg/0.5 mL subcutaneous pen injector Trulicity 0.75 mg/0.5 mL subcutaneous pen injector completed 0.5 ML dulaglu tide 1.5 MG/ML Auto-Injector [Trulicity] [facility] ([facility]) Cyclobenzaprine hydrochloride 5 MG Oral Tablet cyclobenzaprine 5 mg tablet TAKE ONE TABLET BY MOUTH THREE TIMES DAILY NEEDED FOR MUSCLE SPASMS cyclobenzaprine 5 mg tablet TAKE ONE TABLET BY MOUTH THREE TIMES DAILY NEEDED FOR MUSCLE SPASMS completed cyclobenzaprine hydrochloride 5 MG Oral Tablet [facility] ([facility]) OneTouch Verio test strips U UTD TO TEST TID 369336 completed OneTouch Verio test strips [facility] ([facility]) sitagliptin 25 MG Oral Tablet [Januvia] Januvia 25 mg tablet Januvia 25 mg tablet completed sitagliptin 25 MG Oral Tablet [Januvia] [facility] ([facility]) Naproxen 500 MG Oral Tablet naproxen 500 mg tablet TK 1 T PO BID P naproxen 500 mg tablet TK 1 T PO BID P completed naproxen 500 MG Oral Tablet [facility] ([facility]) sitagliptin 25 MG Oral Tablet [Januvia] Januvia 25 mg tablet Januvia 25 mg tablet completed sitagliptin 25 MG Oral Tablet [Januvia] [facility] ([facility]) atorvastatin 20 MG Oral Tablet atorvastatin 20 mg tabl et TK 1 T PO QD atorvastatin 20 mg tablet TK 1 T PO QD completed atorvastatin 20 MG Oral Tablet VANESSA ([facility]) atorvastatin 20 MG Oral Tablet atorvastatin 20 mg tabl et TK 1 T PO QD atorvastatin 20 mg tablet TK 1 T PO QD completed atorvastatin 20 MG Oral Tablet VANESSA ([facility]) Acyclovir 200 MG Oral Capsule acyclovir 200 mg capsule acycl ovir 200 mg capsule completed acyclovir 200 MG Oral Capsule YUMA ([facility]) 0.5 ML dulaglutide 1.5 MG/ML Auto-Inject or [Trulicity] Trulicity 0.75 mg/0.5 mL subcutaneous pen injector Trulicity 0.75 mg/0.5 mL subcutaneous pen injector completed 0.5 ML dulaglu tide 1.5 MG/ML Auto-Injector [Trulicity] VANESSA ([facility]) 3 ML Insulin Lispro 100 UNT/ML Pen Injec tor [Humalog] Humalog KwikPen (U-100) Insulin 100 unit/mL subcutaneous Humalog KwikPen (U-100) Insulin 100 unit /mL subcutaneous completed 3 ML insulin lispro 100 UNT/ML Pen Injector [Humalog] VANESSA ([facility]) Naproxen 500 MG Oral Tablet naproxen 500 mg tablet TK 1 T PO BID P naproxen 500 mg tablet TK 1 T PO BID P completed naproxen 500 MG Oral Tablet VANESSA ([facility]) atorvastatin 10 MG Oral Tablet atorvastatin 10 mg tabl et atorvastatin 10 mg tablet completed atorvastatin 10 MG Oral Tablet VANESSA ([facility]) Suprep Bowel Prep Kit 17.5 gram-3.13 gram-1.6 gram ora l solution MX AND DRK UTD [id number] completed Suprep Bowel Prep Kit 17.5 gram-3.13 gram-1.6 gram oral solution VANESSA ([facility]) Cephalexin 500 MG Oral Capsule cephalexin 500 mg capsu le cephalexin 500 mg capsule completed cephalexin 500 MG Oral Capsule VANESSA ([facility]) atorvastatin 20 MG Oral Tablet atorvastatin 20 mg tabl et TK 1 T PO QD atorvastatin 20 mg tablet TK 1 T PO QD completed atorvastatin 20 MG Oral Tablet VANESSA ([facility]) Cyclobenzaprine hydrochloride 5 MG Oral Tablet cyclobenzaprine 5 mg tablet TAKE ONE TABLET BY MOUTH THREE TIMES DAILY NEEDED FOR MUSCLE SPASMS cyclobenzaprine 5 mg tablet TAKE ONE TABLET BY MOUTH THREE TIMES DAILY NEEDED FOR MUSCLE SPASMS completed cyclobenzaprine hydrochloride 5 MG Oral Tablet VANESSA ([facility]) 0.5 ML dulaglutide 1.5 MG/ML Auto-Inject or [Trulicity] Trulicity 0.75 mg/0.5 mL subcutaneous pen injector Trulicity 0.75 mg/0.5 mL subcutaneous pen injector completed 0.5 ML dulaglu tide 1.5 MG/ML Auto-Injector [Trulicity] YUMA ([facility]) 1.5 ML Insulin Glargine 300 UNT/ML Pen [...] insulin glargine 300 UNT/ML Pen Injector [Toujeo] [facility]) gabapentin 300 MG Oral Capsule gabapenti n 300 mg capsule TAKE 1 CAPSULE BY MOUTH THREE TIMES DAILY gabapentin 300 mg capsule TAKE 1 CAPSULE BY MOUTH THREE TIMES DAILY completed gabapentin 300 MG Oral Capsule [facility]) 0.5 ML dulaglutide 1.5 MG/ML Auto-Inject or [Trulicity] Trulicity 0.75 mg/0.5 mL subcutaneous pen injector Trulicity 0.75 mg/0.5 mL subcutaneous pen injector completed 0.5 ML dulaglu tide 1.5 MG/ML Auto-Injector [Trulicity] YUMA ([facility]) sitagliptin 50 MG Oral Tablet [Januvia] Januvia 50 mg tablet Januvia 50 mg tablet completed sitagliptin 50 MG Oral Tablet [Januvia] [facility]) 3 ML Insulin Lispro 100 UNT/ML Pen Injec tor [Humalog] Humalog KwikPen (U-100) Insulin 100 unit/mL subcutaneous Humalog KwikPen (U-100) Insulin 100 unit /mL subcutaneous completed 3 ML insulin lispro 100 UNT/ML [facility]jector [facility]alog] [facility] 1.5 ML Insulin Glargine 300 [...] 300 UNT/ML Pen Injector [Toujeo] VANESSA ([facility]) 1.5 ML Insulin Glargine 300 [...] 300 UNT/ML Pen Injector [Toujeo] VANESSA ([facility]) 1.5 ML Insulin Glargine 300 [...] 300 UNT/ML Pen Injector [Toujeo] VANESSA ([facility]) OneTouch Verio test strips U UTD TO TEST TID [id number] completed OneTouch Verio test strips VANESSA ([facility]) 1.5 ML Insulin Glargine 300 [...] 300 UNT/ML Pen Injector [Toujeo] VANESSA ([facility]) Naproxen 500 MG Oral Tablet naproxen 500 mg tablet TK 1 T PO BID P naproxen 500 mg tablet TK 1 T PO BID P completed naproxen 500 MG Oral Tablet VANESSA ([facility]) sitagliptin 25 MG Oral Tablet [Januvia] Januvia 25 mg tablet Januvia 25 mg tablet completed sitagliptin 25 MG Oral Tablet [Januvia] VANESSA ([facility]) Cyclobenzaprine hydrochloride 5 MG Oral Tablet cyclobenzaprine 5 mg tablet TAKE ONE TABLET BY MOUTH THREE TIMES DAILY NEEDED FOR MUSCLE SPASMS cyclobenzaprine 5 mg tablet TAKE ONE TABLET BY MOUTH THREE TIMES DAILY NEEDED FOR MUSCLE SPASMS completed cyclobenzaprine hydrochloride 5 MG Oral Tablet VANESSA ([facility]) Naproxen 500 MG Oral Tablet naproxen 500 mg tablet TK 1 T PO BID P naproxen 500 mg tablet TK 1 T PO BID P completed naproxen 500 MG Oral Tablet VANESSA ([facility]) 3 ML Insulin Lispro 100 UNT/ML Pen Injec tor [Humalog] Humalog KwikPen (U-100) Insulin 100 unit/mL subcutaneous Humalog KwikPen (U-100) Insulin 100 unit /mL subcutaneous completed 3 ML insulin lispro 100 UNT/ML Pen Injector [Humalog] VANESSA ([facility]) Naproxen 500 MG Oral Tablet naproxen 500 mg tablet TK 1 T PO BID P naproxen 500 mg tablet TK 1 T PO BID P completed naproxen 500 MG Oral Tablet VANESSA ([facility]) Suprep Bowel Prep Kit 17.5 gram-3.13 gram-1.6 gram ora l solution MX AND DRK UTD [id number] completed Suprep Bowel Prep Kit 17.5 gram-3.13 gram-1.6 gram oral solution VANESSA ([facility]) atorvastatin 20 MG Oral Tablet atorvastatin 20 mg tabl et TK 1 T PO QD atorvastatin 20 mg tablet TK 1 T PO QD completed atorvastatin 20 MG Oral Tablet VANESSA ([facility]) Acyclovir 200 MG Oral Capsule acyclovir 200 mg capsule acycl ovir 200 mg capsule completed acyclovir 200 MG Oral Capsule YUMA ([facility]) sitagliptin 25 MG Oral Tablet [Januvia] Januvia 25 mg tablet Januvia 25 mg tablet completed sitagliptin 25 MG Oral Tablet [Januvia] VANESSA ([facility]) sitagliptin 25 MG Oral Tablet [Januvia] Januvia 25 mg tablet Januvia 25 mg tablet completed sitagliptin 25 MG Oral Tablet [Januvia] [facility]) gabapentin 300 MG Oral Capsule gabapenti n 300 mg capsule TAKE 1 CAPSULE BY MOUTH THREE TIMES DAILY gabapentin 300 mg capsule TAKE 1 CAPSULE BY MOUTH THREE TIMES DAILY completed gabapentin 300 MG Oral Capsule [facility]) 1.5 ML Insulin Glargine [...] insulin glargine 300 UNT/ML Pen Injector [Toujeo] [facility]) 0.5 ML dulaglutide 1.5 MG/ML Auto-Inject or [Trulicity] Trulicity 0.75 mg/0.5 mL subcutaneous pen injector Trulicity 0.75 mg/0.5 mL subcutaneous pen injector completed 0.5 ML dulaglu tide 1.5 MG/ML Auto-Injector [Trulicity] [facility]) gabapentin 300 MG Oral Capsule gabapenti n 300 mg capsule TAKE 1 CAPSULE BY MOUTH THREE TIMES DAILY gabapentin 300 mg capsule TAKE 1 CAPSULE BY MOUTH THREE TIMES DAILY completed gabapentin 300 MG Oral Capsule [facility]) sitagliptin 25 MG Oral Tablet [Januvia] Januvia 25 mg tablet Januvia 25 mg tablet completed sitagliptin 25 MG Oral Tablet [Januvia] [facility]) gabapentin 300 MG Oral Capsule gabapenti n 300 mg capsule TAKE 1 CAPSULE BY MOUTH THREE TIMES DAILY gabapentin 300 mg capsule TAKE 1 CAPSULE BY MOUTH THREE TIMES DAILY completed gabapentin 300 MG Oral Capsule [facility]) Cephalexin 500 MG Oral Capsule cephalexin 500 mg capsu le cephalexin 500 mg capsule completed cephalexin 500 MG Oral Capsule [facility]) Suprep Bowel Prep Kit 17.5 gram-3.13 gram-1.6 gram ora l solution MX AND DRK UTD [id number] completed Suprep Bowel Prep Kit 17.5 gram-3.13 gram-1.6 gram oral solution VANESSA ([facility]) 0.5 ML dulaglutide 1.5 MG/ML Auto-Inject or [Trulicity] Trulicity 0.75 mg/0.5 mL subcutaneous pen injector Trulicity 0.75 mg/0.5 mL subcutaneous pen injector completed 0.5 ML dulaglu tide 1.5 MG/ML Auto-Injector [Trulicity] VANESSA ([facility]) 1.5 ML Insulin Glargine 300 UNT/ML Pen [...] 300 UNT/ML Pen Injector [Toujeo] VANESSA ([facility]) 3 ML Insulin Lispro 100 UNT/ML Pen Injec tor [Humalog] Humalog KwikPen (U-100) Insulin 100 unit/mL subcutaneous Humalog KwikPen (U-100) Insulin 100 unit /mL subcutaneous completed 3 ML insulin lispro 100 UNT/ML Pen Injector [Humalog] VANESSA ([facility]) 1.5 ML Insulin Glargine 300 [...] 300 UNT/ML Pen Injector [Toujeo] VANESSA ([facility]) sitagliptin 25 MG Oral Tablet [Januvia] Januvia 25 mg tablet Januvia 25 mg tablet completed sitagliptin 25 MG Oral Tablet [Januvia] VANESSA ([facility]) 3 ML Insulin Lispro 100 UNT/ML Pen Injec tor [Humalog] Humalog KwikPen (U-100) Insulin 100 unit/mL subcutaneous Humalog KwikPen (U-100) Insulin 100 unit /mL subcutaneous completed 3 ML insulin lispro 100 UNT/ML Pen Injector [Humalog] VANESSA ([facility]) atorvastatin 20 MG Oral Tablet atorvastatin 20 mg tabl et TK 1 T PO QD atorvastatin 20 mg tablet TK 1 T PO QD completed atorvastatin 20 MG Oral Tablet VANESSA ([facility]) Cyclobenzaprine hydrochloride 5 MG Oral Tablet cyclobenzaprine 5 mg tablet TAKE ONE TABLET BY MOUTH THREE TIMES DAILY NEEDED FOR MUSCLE SPASMS cyclobenzaprine 5 mg tablet TAKE ONE TABLET BY MOUTH THREE TIMES DAILY NEEDED FOR MUSCLE SPASMS completed cyclobenzaprine hydrochloride 5 MG Oral Tablet YUMA ([facility]) Suprep Bowel Prep Kit 17.5 gram-3.13 gram-1.6 gram ora l solution MX AND DRK UTD [id number] completed Suprep Bowel Prep Kit 17.5 gram-3.13 gram-1.6 gram oral solution YUMA ([facility]) sitagliptin 25 MG Oral Tablet [Januvia] Januvia 25 mg tablet Januvia 25 mg tablet completed sitagliptin 25 MG Oral Tablet [Januvia] YUMA ([facility]) Naproxen 500 MG Oral Tablet naproxen 500 mg tablet TK 1 T PO BID P naproxen 500 mg tablet TK 1 T PO BID P completed naproxen 500 MG Oral Tablet VANESSA ([facility]) gabapentin 300 MG Oral Capsule gabapenti n 300 mg capsule TAKE 1 CAPSULE BY MOUTH THREE TIMES DAILY gabapentin 300 mg capsule TAKE 1 CAPSULE BY MOUTH THREE TIMES DAILY completed gabapentin 300 MG Oral Capsule YUMA ([facility]) atorvastatin 10 MG Oral Tablet atorvastatin 10 mg tabl et atorvastatin 10 mg tablet completed atorvastatin 10 MG Oral Tablet YUMA ([facility]) Naproxen 500 MG Oral Tablet naproxen 500 mg tablet TK 1 T PO BID P naproxen 500 mg tablet TK 1 T PO BID P completed naproxen 500 MG Oral Tablet YUMA ([facility]) Suprep Bowel Prep Kit 17.5 gram-3.13 gram-1.6 gram ora l solution MX AND DRK UTD [id number] completed Suprep Bowel Prep Kit 17.5 gram-3.13 gram-1.6 gram oral solution VANESSA ([facility]) Suprep Bowel Prep Kit 17.5 gram-3.13 gram-1.6 gram ora l solution MX AND DRK UTD [id number] completed Suprep Bowel Prep Kit 17.5 gram-3.13 gram-1.6 gram oral solution VANESSA ([facility]) OneTouch Verio test strips U UTD TO TEST TID [id number] completed OneTouch Verio test strips VANESSA ([facility]) Suprep Bowel Prep Kit 17.5 gram-3.13 gram-1.6 gram ora l solution MX AND DRK UTD [id number] completed Suprep Bowel Prep Kit 17.5 gram-3.13 gram-1.6 gram oral solution VANESSA ([facility]) 0.5 ML dulaglutide 1.5 MG/ML Auto-Inject or [Trulicity] Trulicity 0.75 mg/0.5 mL subcutaneous pen injector Trulicity 0.75 mg/0.5 mL subcutaneous pen injector completed 0.5 ML dulaglu tide 1.5 MG/ML Auto-Injector [Trulicity] VANESSA ([facility]) Suprep Bowel Prep Kit 17.5 gram-3.13 gram-1.6 gram ora l solution MX AND DRK UTD [id number] completed Suprep Bowel Prep Kit 17.5 gram-3.13 gram-1.6 gram oral solution VANESSA ([facility]) atorvastatin 20 MG Oral Tablet atorvastatin 20 mg tabl et TK 1 T PO QD atorvastatin 20 mg tablet TK 1 T PO QD completed atorvastatin 20 MG Oral Tablet VANESSA ([facility]) 1.5 ML Insulin Glargine 300 [...] insulin glargine 300 UNT/ML Pen Injector [Toujeo] YUMA ([facility]) sitagliptin 25 MG Oral Tablet [Januvia] Januvia 25 mg tablet Januvia 25 mg tablet completed sitagliptin 25 MG Oral Tablet [Januvia] YUMA ([facility]) gabapentin 300 MG Oral Capsule gabapenti n 300 mg capsule TAKE 1 CAPSULE BY MOUTH THREE TIMES DAILY gabapentin 300 mg capsule TAKE 1 CAPSULE BY MOUTH THREE TIMES DAILY completed gabapentin 300 MG Oral Capsule YUMA ([facility]) Naproxen 500 MG Oral Tablet naproxen 500 mg tablet TK 1 T PO BID P naproxen 500 mg tablet TK 1 T PO BID P completed naproxen 500 MG Oral Tablet YUMA ([facility]) Naproxen 500 MG Oral Tablet naproxen 500 mg tablet TK 1 T PO BID P naproxen 500 mg tablet TK 1 T PO BID P completed naproxen 500 MG Oral Tablet YUMA ([facility]) sitagliptin 50 MG Oral Tablet [Januvia] Januvia 50 mg tablet Januvia 50 mg tablet completed sitagliptin 50 MG Oral Tablet [Januvia] YUMA ([facility]) sitagliptin 25 MG Oral Tablet [Januvia] Januvia 25 mg tablet Januvia 25 mg tablet completed sitagliptin 25 MG Oral Tablet [Januvia] YUMA ([facility]) Cyclobenzaprine hydrochloride 5 MG Oral Tablet cyclobenzaprine 5 mg tablet TAKE ONE TABLET BY MOUTH THREE TIMES DAILY NEEDED FOR MUSCLE SPASMS cyclobenzaprine 5 mg tablet TAKE ONE TABLET BY MOUTH THREE TIMES DAILY NEEDED FOR MUSCLE SPASMS completed cyclobenzaprine hydrochloride 5 MG Oral Tablet YUMA ([facility]) 3 ML Insulin Lispro 100 UNT/ML Pen Injec tor [Humalog] Humalog KwikPen (U-100) Insulin 100 unit/mL subcutaneous Humalog KwikPen (U-100) Insulin 100 unit /mL subcutaneous completed 3 ML insulin lispro 100 UNT/ML Pen Injector [Humalog] YUMA ([facility]) Cyclobenzaprine hydrochloride 5 MG Oral Tablet cyclobenzaprine 5 mg tablet TAKE ONE TABLET BY MOUTH THREE TIMES DAILY NEEDED FOR MUSCLE SPASMS cyclobenzaprine 5 mg tablet TAKE ONE TABLET BY MOUTH THREE TIMES DAILY NEEDED FOR MUSCLE SPASMS completed cyclobenzaprine hydrochloride 5 MG Oral Tablet VANESSA ([facility]) 3 ML Insulin Lispro 100 UNT/ML Pen Injec tor [Humalog] Humalog KwikPen (U-100) Insulin 100 unit/mL subcutaneous Humalog KwikPen (U-100) Insulin 100 unit /mL subcutaneous completed 3 ML insulin lispro 100 UNT/ML Pen Injector [Humalog] VANESSA ([facility]) Cyclobenzaprine hydrochloride 5 MG Oral Tablet cyclobenzaprine 5 mg tablet TAKE ONE TABLET BY MOUTH THREE TIMES DAILY NEEDED FOR MUSCLE SPASMS cyclobenzaprine 5 mg tablet TAKE ONE TABLET BY MOUTH THREE TIMES DAILY NEEDED FOR MUSCLE SPASMS completed cyclobenzaprine hydrochloride 5 MG Oral Tablet VANESSA ([facility]) Cyclobenzaprine hydrochloride 5 MG Oral Tablet cyclobenzaprine 5 mg tablet TAKE ONE TABLET BY MOUTH THREE TIMES DAILY NEEDED FOR MUSCLE SPASMS cyclobenzaprine 5 mg tablet TAKE ONE TABLET BY MOUTH THREE TIMES DAILY NEEDED FOR MUSCLE SPASMS completed cyclobenzaprine hydrochloride 5 MG Oral Tablet VANESSA ([facility]) 3 ML Insulin Lispro 100 UNT/ML Pen Injec tor [Humalog] Humalog KwikPen (U-100) Insulin 100 unit/mL subcutaneous Humalog KwikPen (U-100) Insulin 100 unit /mL subcutaneous completed 3 ML insulin lispro 100 UNT/ML Pen Injector [Humalog] VANESSA ([facility]) Naproxen 500 MG Oral Tablet naproxen 500 mg tablet TK 1 T PO BID P naproxen 500 mg tablet TK 1 T PO BID P completed naproxen 500 MG Oral Tablet VANESSA ([facility]) Cyclobenzaprine hydrochloride 5 MG Oral Tablet cyclobenzaprine 5 mg tablet TK 1 T PO TID PRN FOR MUSCLE SPASMS cyclobenzaprine 5 mg tablet TK 1 T PO TI D PRN FOR MUSCLE SPASMS completed cyclobenzaprine hydrochloride 5 MG Oral Tablet VANESSA ([facility]) gabapentin 300 MG Oral Capsule gabapenti n 300 mg capsule TAKE 1 CAPSULE BY MOUTH THREE TIMES DAILY gabapentin 300 mg capsule TAKE 1 CAPSULE BY MOUTH THREE TIMES DAILY completed gabapentin 300 MG Oral Capsule YUMA ([facility]) 1.5 ML Insulin Glargine 300 UNT/ML Pen [...] 300 UNT/ML Pen Injector [Toujeo] VANESSA ([facility]) 3 ML Insulin Lispro 100 UNT/ML Pen Injec tor [Humalog] Humalog KwikPen (U-100) Insulin 100 unit/mL subcutaneous Humalog KwikPen (U-100) Insulin 100 unit /mL subcutaneous completed 3 ML insulin lispro 100 UNT/ML Pen Injector [Humalog] VANESSA ([facility]) 1.5 ML Insulin Glargine 300 [...] 300 UNT/ML Pen Injector [Toujeo] VANESSA ([facility]) atorvastatin 20 MG Oral Tablet atorvastatin 20 mg tabl et TK 1 T PO QD atorvastatin 20 mg tablet TK 1 T PO QD completed atorvastatin 20 MG Oral Tablet VANESSA ([facility]) Suprep Bowel Prep Kit 17.5 gram-3.13 gram-1.6 gram ora l solution MX AND DRK UTD [id number] completed Suprep Bowel Prep Kit 17.5 gram-3.13 gram-1.6 gram oral solution VANESSA ([facility]) 0.5 ML dulaglutide 1.5 MG/ML Auto-Inject or [Trulicity] Trulicity 0.75 mg/0.5 mL subcutaneous pen injector Trulicity 0.75 mg/0.5 mL subcutaneous pen injector completed 0.5 ML dulaglu tide 1.5 MG/ML Auto-Injector [Trulicity] YUMA ([facility]) gabapentin 300 MG Oral Capsule gabapenti n 300 mg capsule TAKE 1 CAPSULE BY MOUTH THREE TIMES DAILY gabapentin 300 mg capsule TAKE 1 CAPSULE BY MOUTH THREE TIMES DAILY completed gabapentin 300 MG Oral Capsule YUMA ([facility]) Naproxen 500 MG Oral Tablet naproxen 500 mg tablet TK 1 T PO BID P naproxen 500 mg tablet TK 1 T PO BID P completed naproxen 500 MG Oral Tablet YUMA ([facility]) atorvastatin 20 MG Oral Tablet atorvastatin 20 mg tabl et TK 1 T PO QD atorvastatin 20 mg tablet TK 1 T PO QD completed atorvastatin 20 MG Oral Tablet YUMA ([facility]) 0.5 ML dulaglutide 1.5 MG/ML Auto-Inject or [Trulicity] Trulicity 0.75 mg/0.5 mL subcutaneous pen injector Trulicity 0.75 mg/0.5 mL subcutaneous pen injector completed 0.5 ML dulaglu tide 1.5 MG/ML Auto-Injector [Trulicity] [facility]) Suprep Bowel Prep Kit 17.5 gram-3.13 gram-1.6 gram ora l solution MX AND DRK UTD [id number] completed Suprep Bowel Prep Kit 17.5 gram-3.13 gram-1.6 gram oral solution YUMA ([facility]) 3 ML Insulin Lispro 100 UNT/ML Pen Injec tor [Humalog] Humalog KwikPen (U-100) Insulin 100 unit/mL subcutaneous Humalog KwikPen (U-100) Insulin 100 unit /mL subcutaneous completed 3 ML insulin lispro 100 UNT/ML Pen Injector [Humalog] YUMA ([facility]) 0.5 ML dulaglutide 1.5 MG/ML Auto-Inject or [Trulicity] Trulicity 0.75 mg/0.5 mL subcutaneous pen injector Trulicity 0.75 mg/0.5 mL subcutaneous pen injector completed 0.5 ML dulaglu tide 1.5 MG/ML Auto-Injector [Trulicity] YUMA ([facility]) Cyclobenzaprine hydrochloride 5 MG Oral Tablet cyclobenzaprine 5 mg tablet TAKE ONE TABLET BY MOUTH THREE TIMES DAILY NEEDED FOR MUSCLE SPASMS cyclobenzaprine 5 mg tablet TAKE ONE TABLET BY MOUTH THREE TIMES DAILY NEEDED FOR MUSCLE SPASMS completed cyclobenzaprine hydrochloride 5 MG Oral Tablet VANESSA ([facility]) atorvastatin 20 MG Oral Tablet atorvastatin 20 mg tabl et TK 1 T PO QD atorvastatin 20 mg tablet TK 1 T PO QD completed atorvastatin 20 MG Oral Tablet VANESSA ([facility]) atorvastatin 20 MG Oral Tablet atorvastatin 20 mg tabl et TK 1 T PO QD atorvastatin 20 mg tablet TK 1 T PO QD completed atorvastatin 20 MG Oral Tablet VANESSA ([facility]) gabapentin 300 MG Oral Capsule gabapenti n 300 mg capsule TAKE 1 CAPSULE BY MOUTH THREE TIMES DAILY gabapentin 300 mg capsule TAKE 1 CAPSULE BY MOUTH THREE TIMES DAILY completed gabapentin 300 MG Oral Capsule YUMA ([facility]) Cyclobenzaprine hydrochloride 5 MG Oral Tablet cyclobenzaprine 5 mg tablet TAKE ONE TABLET BY MOUTH THREE TIMES DAILY NEEDED FOR MUSCLE SPASMS cyclobenzaprine 5 mg tablet TAKE ONE TABLET BY MOUTH THREE TIMES DAILY NEEDED FOR MUSCLE SPASMS completed cyclobenzaprine hydrochloride 5 MG Oral Tablet VANESSA ([facility]) 3 ML Insulin Lispro 100 UNT/ML Pen Injec tor [Humalog] Humalog KwikPen (U-100) Insulin 100 unit/mL subcutaneous Humalog KwikPen (U-100) Insulin 100 unit /mL subcutaneous completed 3 ML insulin lispro 100 UNT/ML Pen Injector [Humalog] VANESSA ([facility]) Suprep Bowel Prep Kit 17.5 gram-3.13 gram-1.6 gram ora l solution MX AND DRK UTD [id number] completed Suprep Bowel Prep Kit 17.5 gram-3.13 gram-1.6 gram oral solution VANESSA ([facility]) gabapentin 300 MG Oral Capsule gabapenti n 300 mg capsule TAKE 1 CAPSULE BY MOUTH THREE TIMES DAILY gabapentin 300 mg capsule TAKE 1 CAPSULE BY MOUTH THREE TIMES DAILY completed gabapentin 300 MG Oral Capsule YUMA ([facility]) OneTouch Verio test strips U UTD TO TEST TID [id number] completed OneTouch Verio test strips YUMA ([facility]) Insurance Providers Payer name Policy type / Coverage type Policy ID Covered democrat ID Covered democrat's relationship to cortes Policy [place] Plan Information MEDICARE A [id number] Self [id number] A MEDICARE [id number] Pushpa [id number] Medicare P [id number] S [id number] A Medicaid S [id number] S [id number] Medicaid S [id number] S [id number] MEDICAID M [id number] Self [id number] MEDICAID [id number] Pushpa [id number] MEDICAID -PHYSICIAN [id number] 1 [id number] [place] [id number] SP [id number] Medicare P [id number] S [id number] A MEDICAID [id number] SP [id number] MEDICARE CO [id number] 18 [id number] MEDICAID -RECURRING [id number] MEDICARE -[facility] MC [id number] 18 [id number] MEDICAID IN CLINIC [id number] MEDICARE PART A [facility] [id number] 18 [id number] Medicare Commercial [id number] Self [id number] Medicaid Commercial [id number] Self [id number] [place] Part [place] Primary [id number] Self [id number] Medicaid Commercial [id number] Self [id number] Medicare Commercial [id number] Self [id number] Medicaid Commercial [id number] Self [id number] Medicare [place] Primary [id number] Self [id number] Medicaid Commercial [id number] Self [id number] Medicare Commercial [id number] Self [id number] Medicaid Commercial [id number] Self [id number] [place] [id number] Self [id number] Medicaid Commercial [id number] Self [id number] Medicare Dme Medigap Part B [id number] Self [id number] Medicaid Medicaid [id number] Self [id number] Medicare Medicare Primary [id number] Self [id number] Medicare Dme Medigap Part B [id number] Self [id number] Medicaid Medicaid [id number] Self [id number] Medicare Medicare Primary [id number] Self [id number] Medicare Dme Medigap Part B [id number] Self [id number] Medicaid Medicaid [id number] Self [id number] Medicare Medicare Primary [id number] Self [id number] [facility] B [id number] 2.16.840.1.668081.3.227.99 .991.042845.0 Self [id number] [place] [id number] 2.16.840.1.983308.3.227.99.991.238696.0 Self [id number] Medicaid Commercial [id number] 2.16.840.1.053585.3.227.99.510.36888. 0 Self [id number] Medicare Commercial [id number] 2.16.840.1.192691.3.227.99.510.154 64.0 Self [id number] Medicaid Commercial [id number] 2.16.840.1.561187.3.227.99.510.21851.0 Self [id number] Medicare [place] [id number] 2.16.840.1.035059.3.227.99.510.25242.0 Self 9 [id number] [place] [id number] 2.16.840.1.104561.3.227.99 .991.827556.0 Self [id number] [place] [id number] 2.16.840.1.544581.3.227.99.991.190501.0 Self [id number] Medicare Commercial [id number] 2.16.840.1.610059.3.227.99.510.154 64.0 Self [id number] Medicaid Commercial [id number] 2.16.840.1.764662.3.227.99.510.88374. 0 Self [id number] Medicaid Commercial [id number] 2.16.840.1.922060.3.227.99.510.07936.0 Self [id number] Medicare [place] [id number] 2.16.840.1.180386.3.227.99.510.32375.0 Self 9 [id number] Medicare Commercial [id number] 2.16.840.1.013196.3.227.99.510.154 64.0 Self [id number] Medicaid Commercial [id number] 2.16.840.1.196507.3.227.99.510.66246. 0 Self [id number] Medicaid Commercial [id number] 2.16.840.1.594485.3.227.99.510.43029.0 Self [id number] Medicare [place] [id number] 2.16.840.1.810929.3.227.99.510.26149.0 Self [id number] Medicare Commercial [id number] 2.16.840.1.973927.3.227.99.510.154 64.0 Self [id number] Medicaid Commercial [id number] 2.16.840.1.268724.3.227.99.510.12746. 0 Self [id number] Medicaid Commercial [id number] 2.16.840.1.756545.3.227.99.510.16979.0 Self [id number] Medicare [place] [id number] 2.16.840.1.349254.3.227.99.510.30010.0 Self 9 [id number] Medicare Commercial [id number] 2.16.840.1.811471.3.227.99.510.154 64.0 Self [id number] Medicaid Commercial [id number] 2.16.840.1.363552.3.227.99.510.92878. 0 Self [id number] Medicaid Commercial [id number] 2.16.840.1.584783.3.227.99.510.54616.0 Self [id number] Medicare Part [place] [id number] 2.16.840.1.783213.3.227.99.510.94071.0 Self [id number] Medicaid [facility] Medicaid [id number] 2.16.840.1.629481.3.22 7.99.510.69599.0 Self [id number] Medicare Part [place] Primary [id number] 2.16.840.1.429817.3.227.99.510.89611.0 Self 9 [id number] Medicaid [facility] Medicaid [id number] 2.16.840.1.693046.3.22 7.99.510.14575.0 Self [id number] Medicare Part [place] Primary [id number] 2.16.840.1.305044.3.227.99.510.70561.0 Self 9 [id number] Medicaid [facility] Medicaid [id number] 2.16.840.1.947219.3.22 7.99.510.78646.0 Self [id number] Medicare Part [place] Primary [id number] 2.16.840.1.202519.3.227.99.510.52463.0 Self [id number] Medicaid [facility] Medicaid [id number] 2.16.840.1.065548.3.22 7.99.510.98275.0 Self [id number] Medicare Part [place] Primary [id number] 2.16.840.1.838400.3.227.99.510.98866.0 Self [id number] Medicaid [facility] Medicaid [id number] 2.16.840.1.568704.3.22 7.99.510.04681.0 Self [id number] Medicare Part [place] Primary [id number] 2.16.840.1.317388.3.227.99.510.83104.0 Self 9 [id number] Medicaid [facility] Medicaid [id number] 2.16.840.1.536502.3.22 7.99.510.34279.0 Self [id number] Medicare Part [place] Primary [id number] 2.16.840.1.421860.3.227.99.510.86907.0 Self 9 [id number] Medicaid [facility] Medicaid [id number] 2.16.840.1.565418.3.22 7.99.510.81744.0 Self [id number] Medicare Part [place] Primary [id number] 2.16.840.1.919933.3.227.99.510.77154.0 Self [id number] MEDICARE [id number] [place] Med[place] Part [place] [id number] 2.16.840.1.327146.3.227.99 .6619.39216.0 Self [id number] [place] [id number] 2.16.840.1.027895.3.227.99.6619.72028.0 Self [id number] Medicaid [facility] Medicaid [id number] 2.16.840.1.674010.3.22 7.99.510.09551.0 Self [id number] Medicare Part [place] Primary [id number] 2.16.840.1.112629.3.227.99.510.62002.0 Self [id number] MEDICARE PART A -O/P [id number] Medicaid [facility] Medicaid [id number] 2.16.840.1.767499.3.22 7.99.510.14009.0 Self [id number] Medicare Part [place] [id number] 2.16.840.1.388173.3.227.99.510.63646.0 Self 9 [id number] Medicaid [facility] Medicaid [id number] 2.16.840.1.117648.3.22 7.99.510.81821.0 Self [id number] Medicare [place] [id number] 2.16.840.1.663789.3.227.99.510.02029.0 Self 9 [id number] Medicaid [facility] Medicaid [id number] 2.16.840.1.457302.3.22 7.99.510.06145.0 Self [id number] Medicare Part [place] Primary [id number] 2.16.840.1.677139.3.227.99.510.39986.0 Self 9 [id number] Medicaid [facility] Medicaid [id number] 2.16.840.1.570002.3.22 7.99.510.72961.0 Self [id number] Medicare Part [place] Medicare Primary [id number] 2.16.840.1.773207.3.227.99.510.16786.0 Self 1 [id number] Medicaid [facility] Medicaid [id number] 2.16.840.1.411732.3.22 7.99.510.85822.0 Self [id number] Medicare Part [place] Primary [id number] 2.16.840.1.709304.3.227.99.510.07564.0 Self 1 [id number] Medicaid [facility] Medicaid [id number] 2.16.840.1.148494.3.22 7.99.510.45165.0 Self [id number] Medicare Part [place] Primary [id number] 2.16.840.1.470996.3.227.99.510.53473.0 Self 1 [id number] Medicaid [facility] Medicaid [id number] 2.16.840.1.000236.3.22 7.99.510.18521.0 Self [id number] Medicare Part [place] Primary [id number] 2.16.840.1.514332.3.227.99.510.49052.0 Self 1 [id number] Medicare Dme Medigap Part B [id number] 2.840.1.904346.3.227.99 .936.28393.0 Self [id number] Medicaid Medicaid [id number] 2.840.1.294990.3.227.99.936.08428.0 S elf [id number] Medicare Medicare Primary [id number] 2.840.1.942246.3.227. 99.936.12323.0 Self [id number] Medicare Dme Medigap Part B [id number] .840.1.789293.3.227.99 .936.09575.0 Self [id number] Medicaid Medicaid [id number] 2.840.1.406017.3.227.99.936.66357.0 S elf [id number] Medicare Medicare Primary [id number] 2.840.1.237694.3.227. 99.936.60703.0 Self [id number] Medicare Dme Medigap Part B [id number] 2.840.1.714461.3.227.99 .936.13503.0 Self [id number] Medicaid Medicaid [id number] .840.1.327315.3.227.99.936.47680.0 S elf [id number] Medicare Medicare Primary [id number] 2.840.1.383556.3.227. 99.936.32333.0 Self [id number] Medicare Dme Medigap Part B [id number] 2.840.1.943251.3.227.99 .936.88621.0 Self [id number] Medicaid Medicaid [id number] 2.840.1.539842.3.227.99.936.13463.0 S elf [id number] Medicare Medicare Primary [id number] 2.16.840.1.198576.3.227. 99.936.69249.0 Self [id number] Medicare Dme Medigap Part B [id number] 2.16.840.1.343506.3.227.99 .936.62875.0 Self [id number] Medicaid Medicaid [id number] 2.16.840.1.523617.3.227.99.936.69079.0 S elf [id number] Medicare Medicare Primary [id number] 2.16.840.1.549597.3.227. 99.936.42483.0 Self [id number] Medicare Dme Medigap Part B [id number] 2.16.840.1.337370.3.227.99 .936.53009.0 Self [id number] Medicaid Medicaid [id number] 2.16840.1.563020.3.227.99.936.78795.0 S elf [id number] Medicare Medicare Primary [id number] 2.16.840.1.653437.3.227. 99.936.68810.0 Self [id number] Medicaid Medicaid 2.16840.1.507004.3.227.99.936.13333.0 S elf Medicare Medicare Primary 2.16840.1.509921.3.227.99.936.23 302.0 Self HMO BLUE [id number] SP [id number] BLUE CROSS SAAVEDRA PLAN [id number] SP [id number] MEDICAID S [id number] S [id number] MEDICARE P [id number] S [id number] A HMO BLUE [id number] SP [id number] [facility] PLUS [id number] SP [id number] HEALTH WELFARE BENEFIT SYS [id number] SP [id number] [place] [id number] SP [id number] U [id number] MEDICARE [id number] SP [id number] MEDICARE PART A -O/P [id number] 18 [id number] MEDICAID -O/P [id number] [place] [id number] 18 [id number] MEDICARE PART A [facility] [id number] 18 [id number] [place] [id number] Problems, Conditions, and Diagnoses Code Display Name Description Problem Type Effective Dates Data Source(s) Z5321 Procedure and treatment not carried out due to patient leaving prior to being seen by health care provider Procedure and treatment not carried out due to patient leaving prior to being seen by health care provider Diagnosis 09/15/2021 12:55:00 PM EDT [facility] Z1152 ENCOUNTER FOR SCREENING FOR COVID-19 ENCOUNTER F OR SCREENING FOR COVID-19 Diagnosis 09/12/2021 09:43:00 AM EDT [facility] M542 Cervicalgia Cervicalgia Diagnosis 03/11/2021 02:01:00 PM EDT [facility] F43.9 Reaction to severe stress, unspecified 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 06/28/2021 12:00:00 AM EDT [facility] ([facility]) 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 Unspecified Schizophrenia Spectrum and Other Psychotic Disorder Condition 06/28/2021 12:00:00 AM EDT [facility] ([facility]) [id number] Cervical radiculopathy Cervical radiculopathy Problem 03/25/2021 12:00:00 AM EDT [facility] ([facility]) E11.9 Type 2 diabetes mellitus Type 2 diabetes mellitus Prob allan 03/20/2021 12:00:00 AM EDT [facility] ([facility] M21.619 Bunion Bunion Problem 03/20/2021 12:00:00 AM ED T [facility] ([facility] [id number] SNOMED CT Concept SNOMED CT Concept Problem 01/09 12:00:00 AM EST - 02/15/2021 12:00:00 AM EDT [facility] ([facility]) [id number] Finding of urine substance level Finding of Urin e Substance Level Problem 01/09/2018 12:00:00 AM EST - 09/30/2020 12:00:00 AM JENNIFER MENDEZ ([facility]) [id number] SNOMED CT Concept SNOMED CT Concept Problem 01/09 12:00:00 AM EST - 02/15/2021 12:00:00 AM EDT [facility] ([facility]) [id number] Finding of urine substance level Finding of Urin e Substance Level Problem 01/09/2018 12:00:00 AM EST - 09/30/2020 12:00:00 AM JENNIFER MENDEZ ([facility]) 905489461 SNOMED CT Concept SNOMED CT Concept Problem 01/09 12:00:00 AM EST - 02/15/2021 12:00:00 AM EDT [facility] ([facility]) [id number] Finding of urine substance level Finding of Urin e Substance Level Problem 01/09/2018 12:00:00 AM EST - 09/30/2020 12:00:00 AM JENNIFER MENDEZ ([facility]) [id number] SNOMED CT Concept SNOMED CT Concept Problem 01/09 12:00:00 AM EST - 02/15/2021 12:00:00 AM EDT [facility] ([facility]) [id number] Finding of urine substance level Finding of Urin e Substance Level Problem 01/09/2018 12:00:00 AM EST - 09/30/2020 12:00:00 AM JENNIFER MENDEZ ([facility]) 468174148 SNOMED CT Concept SNOMED CT Concept Problem 01/09 12:00:00 AM EST - 02/15/2021 12:00:00 AM EDT [facility] ([facility]) 863732962 Finding of urine substance level Finding of Urin e Substance Level Problem 01/09/2018 12:00:00 AM EST - 09/30/2020 12:00:00 AM JENNIFER MENDEZ ([facility]) 261634601 SNOMED CT Concept SNOMED CT Concept Problem 01/09 12:00:00 AM EST - 02/15/2021 12:00:00 AM EDT [facility] ([facility]) [id number] Finding of urine substance level Finding of Urin e Substance Level Problem 01/09/2018 12:00:00 AM EST - 09/30/2020 12:00:00 AM JENNIFER MENDEZ ([facility]) [id number] SNOMED CT Concept SNOMED CT Concept Problem 01/09 12:00:00 AM EST - 02/15/2021 12:00:00 AM EDT [facility] ([facility]) [id number] Finding of urine substance level Finding of Urin e Substance Level Problem 01/09/2018 12:00:00 AM EST - 09/30/2020 12:00:00 AM JENNIFER MENDEZ ([facility]) 158915096 SNOMED CT Concept SNOMED CT Concept Problem 01/09 12:00:00 AM EST - 02/15/2021 12:00:00 AM EDBakari MENDEZ ([facility]) [id number] Finding of urine substance level Finding of Urin e Substance Level Problem 01/09/2018 12:00:00 AM EST - 09/30/2020 12:00:00 AM JENNIFER MENDEZ ([facility]) 332329347 Finding of urine substance level Finding of Urin e Substance Level Problem 01/09/2018 12:00:00 AM EST - 09/30/2020 12:00:00 AM JENNIFER MENDEZ ([facility]) 772597571 SNOMED CT Concept SNOMED CT Concept Problem 01/09 12:00:00 AM EST - 02/15/2021 12:00:00 AM EDBakari MENDEZ ([facility]) [id number] Finding of urine substance level Finding of Urin e Substance Level Problem 01/09/2018 12:00:00 AM EST - 09/30/2020 12:00:00 AM JENNIFER MENDEZ ([facility]) 761409506 SNOMED CT Concept SNOMED CT Concept Problem 01/09 12:00:00 AM EST - 02/15/2021 12:00:00 AM EDBakari MENDEZ ([facility]) [id number] Finding of urine substance level Finding of Urin e Substance Level Problem 01/09/2018 12:00:00 AM EST - 09/30/2020 12:00:00 AM ES T [facility] ([facility]) 339080540 Renal function tests abnormal Renal Function Tests Abn ormal Problem 03/03/2016 12:00:00 AM EDT - 03/10/2021 12:00:00 AM EDT [facility] ([facility]) 353587520 Renal function tests abnormal Renal Function Tests Abn ormal Problem 03/03/2016 12:00:00 AM EDT - 03/10/2021 12:00:00 AM EDT [facility] ([facility]) 189454440 Renal function tests abnormal Renal Function Tests Abn ormal Problem 03/03/2016 12:00:00 AM EDT - 03/10/2021 12:00:00 AM EDT [facility] ([facility]) 639947993 Renal function tests abnormal Renal Function Tests Abn ormal Problem 03/03/2016 12:00:00 AM EDT - 03/10/2021 12:00:00 AM EDT [facility] ([facility]) 411742050 Renal function tests abnormal Renal Function Tests Abn ormal Problem 03/03/2016 12:00:00 AM EDT - 03/10/2021 12:00:00 AM EDT [facility] ([facility]) 230964795 Renal function tests abnormal Renal Function Tests Abn ormal Problem 03/03/2016 12:00:00 AM EDT - 03/10/2021 12:00:00 AM EDT [facility] ([facility]) 007247140 Renal function tests abnormal Renal Function Tests Abn ormal Problem 03/03/2016 12:00:00 AM EDT - 03/10/2021 12:00:00 AM EDT [facility] ([facility]) 791648164 SNOMED CT Concept SNOMED CT Concept Problem 02/02 12:00:00 AM EDT - 02/15/2021 12:00:00 AM EDT [facility] ([facility]) [id number] Clinical finding Clinical Finding Problem 016 12:00:00 AM EDT - 02/15/2021 12:00:00 AM EDT [facility] ([facility]) 687902541 SNOMED CT Concept SNOMED CT Concept Problem 02/02 12:00:00 AM EDT - 09/30/2020 12:00:00 AM EST [facility] ([facility]) 537851944 Procedure by method Procedure by Method Problem 0 02/03/2016 12:00:00 AM EDT - 09/30/2020 12:00:00 AM EST [facility] ([facility]) 633278592 Difficulty passing urine Difficulty Passing Urine Prob allan 02/03/2016 12:00:00 AM EDT - 09/30/2020 12:00:00 AM EST [facility] ([facility]) 362630954 SNOMED CT Concept SNOMED CT Concept Problem 02/02 12:00:00 AM EDT - 02/15/2021 12:00:00 AM EDT [facility] ([facility]) 744236446 Clinical finding Clinical Finding Problem 016 12:00:00 AM EDT - 02/15/2021 12:00:00 AM EDT [facility] ([facility]) 613835849 SNOMED CT Concept SNOMED CT Concept Problem 02/02 12:00:00 AM EDT - 09/30/2020 12:00:00 AM EST [facility] ([facility]) [id number] Procedure by method Procedure by Method Problem 0 02/03/2016 12:00:00 AM EDT - 09/30/2020 12:00:00 AM EST [facility] ([facility]) [id number] Difficulty passing urine Difficulty Passing Urine Prob allan 02/03/2016 12:00:00 AM EDT - 09/30/2020 12:00:00 AM EST [facility] ([facility]) 712603996 SNOMED CT Concept SNOMED CT Concept Problem 02/02 12:00:00 AM EDT - 02/15/2021 12:00:00 AM EDT [facility] ([facility]) 705838105 Clinical finding Clinical Finding Problem 016 12:00:00 AM EDT - 02/15/2021 12:00:00 AM EDT [facility] ([facility]) 555822268 SNOMED CT Concept SNOMED CT Concept Problem 02/02 12:00:00 AM EDT - 09/30/2020 12:00:00 AM EST [facility] ([facility]) 248642578 Procedure by method Procedure by Method Problem 0 02/03/2016 12:00:00 AM EDT - 09/30/2020 12:00:00 AM EST [facility] ([facility]) [id number] Difficulty passing urine Difficulty Passing Urine Prob allan 02/03/2016 12:00:00 AM EDT - 09/30/2020 12:00:00 AM EST [facility] ([facility]) 954767498 SNOMED CT Concept SNOMED CT Concept Problem 02/02 12:00:00 AM EDT - 02/15/2021 12:00:00 AM EDT [facility] ([facility]) 943863535 Clinical finding Clinical Finding Problem 016 12:00:00 AM EDT - 02/15/2021 12:00:00 AM EDT [facility] ([facility]) 538820256 SNOMED CT Concept SNOMED CT Concept Problem 02/02 12:00:00 AM EDT - 09/30/2020 12:00:00 AM EST [facility] ([facility]) [id number] Procedure by method Procedure by Method Problem 0 02/03/2016 12:00:00 AM EDT - 09/30/2020 12:00:00 AM EST [facility] ([facility]) [id number] Difficulty passing urine Difficulty Passing Urine Prob allan 02/03/2016 12:00:00 AM EDT - 09/30/2020 12:00:00 AM EST [facility] ([facility]) 557948492 SNOMED CT Concept SNOMED CT Concept Problem 02/02 12:00:00 AM EDT - 02/15/2021 12:00:00 AM EDT [facility] ([facility]) 518157067 Clinical finding Clinical Finding Problem 016 12:00:00 AM EDT - 02/15/2021 12:00:00 AM EDT [facility] ([facility]) 112010241 SNOMED CT Concept SNOMED CT Concept Problem 02/02 12:00:00 AM EDT - 09/30/2020 12:00:00 AM EST [facility] ([facility]) 597088863 Procedure by method Procedure by Method Problem 0 02/03/2016 12:00:00 AM EDT - 09/30/2020 12:00:00 AM EST [facility] ([facility]) 538226380 Difficulty passing urine Difficulty Passing Urine Prob allan 02/03/2016 12:00:00 AM EDT - 09/30/2020 12:00:00 AM EST [facility] ([facility]) 953110669 SNOMED CT Concept SNOMED CT Concept Problem 02/02 12:00:00 AM EDT - 02/15/2021 12:00:00 AM EDT [facility] ([facility]) 558862179 Clinical finding Clinical Finding Problem 016 12:00:00 AM EDT - 02/15/2021 12:00:00 AM EDT [facility] ([facility]) 088680784 SNOMED CT Concept SNOMED CT Concept Problem 02/02 12:00:00 AM EDT - 09/30/2020 12:00:00 AM EST [facility] ([facility]) [id number] Procedure by method Procedure by Method Problem 0 02/03/2016 12:00:00 AM EDT - 09/30/2020 12:00:00 AM EST [facility] ([facility]) [id number] Difficulty passing urine Difficulty Passing Urine Prob allan 02/03/2016 12:00:00 AM EDT - 09/30/2020 12:00:00 AM EST [facility] ([facility]) 797290812 Difficulty passing urine Difficulty Passing Urine Prob allan 02/03/2016 12:00:00 AM EDT - 09/30/2020 12:00:00 AM EST [facility] ([facility]) 247611425 SNOMED CT Concept SNOMED CT Concept Problem 02/02 12:00:00 AM EDT - 02/15/2021 12:00:00 AM EDT [facility] ([facility]) [id number] Clinical finding Clinical Finding Problem 016 12:00:00 AM EDT - 02/15/2021 12:00:00 AM EDT [facility] ([facility]) 777144081 SNOMED CT Concept SNOMED CT Concept Problem 02/02 12:00:00 AM EDT - 09/30/2020 12:00:00 AM EST [facility] ([facility]) 613812610 Procedure by method Procedure by Method Problem 0 02/03/2016 12:00:00 AM EDT - 09/30/2020 12:00:00 AM EST [facility] ([facility]) 449535248 Difficulty passing urine Difficulty Passing Urine Prob allan 02/03/2016 12:00:00 AM EDT - 09/30/2020 12:00:00 AM EST [facility] ([facility]) 199110988 SNOMED CT Concept SNOMED CT Concept Problem 02/02 12:00:00 AM EDT - 09/30/2020 12:00:00 AM EST [facility] ([facility]) 557348669 Procedure by method Procedure by Method Problem 0 02/03/2016 12:00:00 AM EDT - 09/30/2020 12:00:00 AM EST [facility] ([facility]) 285210114 Difficulty passing urine Difficulty Passing Urine Prob allan 02/03/2016 12:00:00 AM EDT - 09/30/2020 12:00:00 AM EST [facility] ([facility]) 777673699 SNOMED CT Concept SNOMED CT Concept Problem 02/02 12:00:00 AM EDT - 02/15/2021 12:00:00 AM EDT [facility] ([facility]) 887670383 Clinical finding Clinical Finding Problem 016 12:00:00 AM EDT - 02/15/2021 12:00:00 AM EDT [facility] ([facility]) 543564054 SNOMED CT Concept SNOMED CT Concept Problem 02/02 12:00:00 AM EDT - 09/30/2020 12:00:00 AM EST [facility] ([facility]) 820576612 Procedure by method Procedure by Method Problem 0 02/03/2016 12:00:00 AM EDT - 09/30/2020 12:00:00 AM EST [facility] ([facility]) 897919895 Difficulty passing urine Difficulty Passing Urine Prob allan 02/03/2016 12:00:00 AM EDT - 09/30/2020 12:00:00 AM EST [facility] ([facility]) 717057836 SNOMED CT Concept SNOMED CT Concept Problem 02/02 12:00:00 AM EDT - 02/15/2021 12:00:00 AM EDT [facility] ([facility]) [id number] Clinical finding Clinical Finding Problem 016 12:00:00 AM EDT - 02/15/2021 12:00:00 AM EDT [facility] ([facility]) 141644639 SNOMED CT Concept SNOMED CT Concept Problem 02/02 12:00:00 AM EDT - 09/30/2020 12:00:00 AM EST [facility] ([facility]) [id number] Procedure by method Procedure by Method Problem 0 02/03/2016 12:00:00 AM EDT - 09/30/2020 12:00:00 AM EST [facility] ([facility]) 163572582 Difficulty passing urine Difficulty Passing Urine Prob allan 02/03/2016 12:00:00 AM EDT - 09/30/2020 12:00:00 AM EST [facility] ([facility]) 314329763 SNOMED CT Concept SNOMED CT Concept Problem 02/02 12:00:00 AM EDT - 02/15/2021 12:00:00 AM EDT [facility] ([facility]) 345135890 Clinical finding Clinical Finding Problem 016 12:00:00 AM EDT - 02/15/2021 12:00:00 AM EDT [facility] ([facility]) 302759394 SNOMED CT Concept SNOMED CT Concept Problem 02/02 12:00:00 AM EDT - 09/30/2020 12:00:00 AM EST [facility] ([facility]) 463219517 Procedure by method Procedure by Method Problem 0 02/03/2016 12:00:00 AM EDT - 09/30/2020 12:00:00 AM EST [facility] ([facility]) Surgeries/Procedures Procedure Description Date Indications Data Source(s) OFFICE OUTPATIENT VISIT 25 MINUTES 09/07/2021 12:00:00 AM EDT [facility] ([facility]) Extended Individual Psychotherapy - 45 min 06/28/2021 12:00:00 AM EDT - 06/28/2021 12:00:00 AM EDT [facility] ([facility]) Extended Individual Psychotherapy - 45 min 12:00:00 AM EDT [facility] ([facility]) Telemed Diagnostic Eval 06/07/2021 12:00 :00 AM EDT - 06/07/2021 12:00:00 AM EDT [facility] ([facility]) Telemed Diagnostic Eval 06/07/2021 12:00:00 AM EDT [facility] ([facility]) OFFICE OUTPATIENT VISIT 25 MINUTES 05/10/2021 12:00:00 AM EDT [facility] ([facility] ) MRI SPINAL CANAL CERVICAL W/O CONTRAST MATRL 12:00:00 AM EDT [facility] ([facility] ) MRI SPINAL CANAL CERVICAL W/O CONTRAST MATRL 12:00:00 AM EDT [facility] ([facility], ) OFFICE OUTPATIENT VISIT 25 MINUTES 04/07/2021 12:00:00 AM EDT [facility] ([facility], ) OFFICE OUTPATIENT VISIT 15 MINUTES 04/06/2021 12:00:00 AM EDT [facility] ([facility]) Needle electromyography, each extremity, with related paraspinal areas, when performed, done with nerve conduction, amplitude and latency/velocity study; complete, five or more muscles studied, innervated by three or more nerves or four or more spinal levels (list separately in addition to the code for primary procedure). 03/28/2021 12:00:00 AM EDT MEDEN T ([facility], ) Needle Electromyography Non Extremity Done With Nerve Conduc tion 03/28/2021 12:00:00 AM EDT [facility] ([facility] ) Needle Electromyography Non Extremity Done With Nerve Conduc tion 03/28/2021 12:00:00 AM EDT [facility] ([facility] ) Nerve Conduction 11-12 Studies 03/28/2021 12:00:00 AM EDT [facility] ([facility]) OFFICE OUTPATIENT NEW 30 MINUTES 03/11/2021 12:00:00 A M EDT [facility] ([facility]) Results ID Date Data Source [id number] 09/12/2021 09:30:00 AM EDT [facility] Name Value Range Interpretation Code Description Data Sandra rce(s) Supporting Document(s) SARS coronavirus 2 RNA Not Detected [facility] [place] This lab was ordered by [facility] Sunday vázquez and reported by [employer]. ID Date Data Source [id number] 09/12/2021 09:30:00 AM EDT MED[facility] ([facility]) Name Value Range Interpretation Code Description Data Sandra rce(s) Supporting Document(s) Laboratory test finding (navigational concept) Laboratory test result MED[facility] ([facility]) Sars-CoV-2, Abhinav Laboratory test result MED[facility] ([facility]) This nucleic acid amplification test was developed and its performance characteristics determined by [facility]. Nucleic acid amplification tests include RT-PCR and [...] in this assay. ID Date Data Source [id number] 09/14/2021 06:27:00 AM EDT [facility] Name Value Range Interpretation Code Description Data Sandra rce(s) Supporting Document(s) SARS-CoV-2, ABHINAV Not Detected Not Detected [facility] This nucleic acid amplification test was developed and its performancecharacteristics determined by [facility]. Nucleic acidamplification tests include RT-PCR and TMA. [...] assay. SARS-CoV-2, ABHINAV 2 DAY TAT Performed [facility] ID Date Data Source [id number] 09/07/2021 08:50:00 AM EDT MEDENT ([facility]) Name Value Range Interpretation Code Description Data Sandra rce(s) Supporting Document(s) Color of Urine Laboratory test result MEDENT ([facility]) Spec [place] 1.010 1.001-1.030 MEDENT ([facility]) pH of Urine by Test strip 5 5-9 MEDE NT ([facility]) Appearance of Urine Laboratory test result [facility] ([facility]) Leukocytes Laboratory test result [facility] ([facility]) Nitrate [Presence] in Urine Laboratory test result [facility] ([facility]) Protein [Presence] in Urine by Test strip Laboratory test result [facility] ([facility]) Ketones [Presence] in Urine by Test strip Laboratory test result [facility] ([facility]) Urobilinogen Laboratory test result MEDENT ([facility]) Inhouse Glucose 1000 Above high normal [place] ([facility]) Blood type and Indirect antibody screen panel - Blood 250 Above high normal [facility] ([facility]) Bilirubin.total [Presence] in Urine by Test strip Laboratory test res ult MEDENT ([facility]) ID Date Data Source [id number] 07/06/2021 12:00:00 AM EDT [facility] ([facility]) Name Value Range Interpretation Code Description Data Sandra rce(s) Supporting Document(s) Bacteria identified in Urine by Culture Reflexive Urine Culture [facility]) ID Date Data Source [id number] 07/06/2021 12:00:00 AM EDT [facility]) Name Value Range Interpretation Code Description Data Sandra rce(s) Supporting Document(s) Specific gravity of Urine by Test strip 1.001-1.035 A eddie high normal Specific [place] VANESSA ([facility]) Appearance of Urine clear clear Appearance ATHEN A ([facility]) Color of Urine yellow yellow Color VANESSA ([facility]) Glucose [Presence] in Urine by Test strip 3+ negati ve Abnormal (applies to non- numeric results) Glucose V[facility]ESSA ([facility]) Bilirubin.total [Presence] in Urine by Test strip negative negative Bilirubin VANESSA ([facility]) Ketones [Presence] in Urine by Test strip negative negative Ketones V[facility]SA ([facility]) pH of Urine by Test strip 5.0-8.0 [facility] Protein [Presence] in Urine by Test strip negative negative Protein VANESSA ([facility]) Hemoglobin [Presence] in Urine by Test strip negative negative Occult Blood VANESSA ([facility]) Nitrite [Presence] in Urine by Test strip negative negative Nitrite V[facility]ESSA ([facility]) Leukocyte esterase [Presence] in Urine by Test strip negative n egative Leukocyte Esterase VANESSA ([facility]) Bacteria [#/area] in Urine sediment by Microscopy high power field none seen none seen Bacteria V[facility]SA ([facility]) Epithelial cells.squamous [#/area] in Ur ine sediment by Microscopy high power field none seen < or = 5 Squamous Epithelial Cells AT [facility] ([facility]) Erythrocytes [#/area] in Urine sediment by Microscopy high power field none seen < or = 2 Rbc VANESSA ([facility]) Leukocytes [#/area] in Urine sediment by Microscopy high pow er field none seen < or = 5 Wbc V[facility]ESSA ([facility]) Hyaline casts [#/area] in Urine sediment by Microscopy low power field none seen none seen Hyaline Cast V[facility]ESSA ([facility]) ID Date Data Source [id number] 07/06/2021 12:00:00 AM EDT [facility] ([facility]) Name Value Range Interpretation Code Description Data Sandra rce(s) Supporting Document(s) Urea nitrogen [Mass/volume] in Serum or Plasma 15 mg/dL 7-25 Urea Nitrogen (BUN) VANESSA ([facility]) Glucose [Mass/volume] in Serum or Plasma 308 mg/dL 65-99 Above high normal Glucose VANESSA ([facility]) Creatinine [Mass/volume] in Serum or Plasma 0.93 mg/dL 0.70-1.33 Creatinine VANESSA ([facility]) Glomerular filtration rate/1.73 sq M.pre dicted among non-blacks [Volume Rate/Area] in Serum, Plasma or Blood by Creatinine-based formula (CKD-EPI) 95 mL/min/1.73m2 > or = 60 eGFR Non-afr. [place]ian VANESSA ([facility]) Glomerular filtration rate/1.73 sq M.pre dicted among blacks [Volume Rate/Area] in Serum, Plasma or Blood by Creatinine-based formula (CKD-EPI) 110 mL/min/1.73m2 > or = 60 eGFR V[facility]ESSA ([facility]) Sodium [Moles/volume] in Serum or Plasma 135 mmol/L 135-146 Sodium V[facility]ESSA ([facility]) Chloride [Moles/volume] in Serum or Plasma 102 mmol/L 98-110 Chloride V[facility]ESSA ([facility]) Urea nitrogen/Creatinine [Mass Ratio] in Serum or Plasma not applic able 6-22 BUN/creatinine Ratio [facility] ([facility]) Potassium [Moles/volume] in Serum or Plasma 4.0 mmol/L 3.5-5.3 Potassium VANESSA ([facility]) Carbon dioxide, total [Moles/volume] in Serum or Plasma 27 mmol/L 20-32 Carbon Dioxide VANESSA ([facility]) Protein [Mass/volume] in Serum or Plasma 6.8 g/dL 6.1-8.1 Protein, Total VANESSA ([facility]) Calcium [Mass/volume] in Serum or Plasma 8.9 mg/dL 8.6-10.3 Calcium V[facility]ESSA ([facility]) Globulin [Mass/volume] in Serum by calculation 2.7 g/dL_(calc) 1.9- 3.7 Globulin [facility] ([facility]) Albumin [Mass/volume] in Serum or Plasma 4.1 g/dL 3.6-5.1 Albumin [facility] ([facility]) Bilirubin.total [Mass/volume] in Serum or Plasma 0.9 mg/dL 0.2-1 .2 Bilirubin, Total [facility] ([facility]) Albumin/Globulin [Mass Ratio] in Serum or Plasma 1.5 (calc) 1.0-2 .5 Albumin/globulin Ratio VANESSA ([facility]) Alanine aminotransferase [Enzymatic activity/volume] in Seru m or Plasma 15 U/L 9-46 Alt V[facility]SA ([facility]) Aspartate aminotransferase [Enzymatic activity/volume] in Se rum or Plasma 9 U/L 10-35 Below low normal Ast VANESSA ([facility]) Alkaline phosphatase [Enzymatic activity/volume] in Serum or Plasma 73 U/L 35-144 Alkaline Phosphatase [facility] ([facility]) ID Date Data Source [id number] 07/06/2021 12:00:00 AM EDT [facility] ([facility]) Name Value Range Interpretation Code Description Data Sandra rce(s) Supporting Document(s) Cholesterol in HDL [Mass/volume] in Serum or Plasma 38 mg/dL > or = 40 Below low normal HDL Cholesterol V[facility]ESSA ([facility]) Cholesterol [Mass/volume] in Serum or Plasma 114 mg/dL <200 Cholesterol, Total VAENSSA ([facility]) Cholesterol.total/Cholesterol in HDL [Mass Ratio] in Serum o r Plasma 3.0 (calc) <5.0 Chol/hdlc Ratio V[facility]ESSA ([facility]) Cholesterol in LDL [Mass/volume] in Serum or Plasma by calculation 49 mg/dL_(calc) LDL-cholesterol VANESSA ([facility]) Triglyceride [Mass/volume] in Serum or Plasma 208 mg/dL <150 Above high normal Triglycerides V[facility]ESSA ([facility]) Cholesterol non HDL [Mass/volume] in Serum or Plasma 76 mg/dL_(calc ) <130 Non HDL Cholesterol [facility]SA ([facility]) ID Date Data Source [id number] 07/06/2021 12:00:00 AM EDT [facility]) Name Value Range Interpretation Code Description Data Sandra rce(s) Supporting Document(s) Bacteria identified in Urine by Culture Reflexive Urine Culture [facility] ([facility]) ID Date Data Source [id number] 07/06/2021 12:00:00 AM EDT [facility]) Name Value Range Interpretation Code Description Data Sandra rce(s) Supporting Document(s) Color of Urine yellow yellow Color [facility]SA ([facility]) Appearance of Urine clear clear Appearance ATHEN A ([facility]) Glucose [Presence] in Urine by Test strip 3+ negati ve Abnormal (applies to non- numeric results) Glucose [facility] ([facility]) Specific gravity of Urine by Test strip 1.001-1.035 A eddie high normal Specific [place] VANESSA ([facility]) pH of Urine by Test strip 5.0-8.0 Ph VANESSA ([facility]) Bilirubin.total [Presence] in Urine by Test strip negative negative Bilirubin V[facility]ESSA ([facility]) Protein [Presence] in Urine by Test strip negative negative Protein VANESSA ([facility]) Hemoglobin [Presence] in Urine by Test strip negative negative Occult Blood VANESSA ([facility]) Ketones [Presence] in Urine by Test strip negative negative Ketones V[facility] ([facility]) Nitrite [Presence] in Urine by Test strip negative negative Nitrite V[facility]SA ([facility]) Leukocytes [#/area] in Urine sediment by Microscopy high pow er field none seen < or = 5 Wbc V[facility]SA ([facility]) Leukocyte esterase [Presence] in Urine by Test strip negative n egative Leukocyte Esterase V[facility]ESSA ([facility]) Epithelial cells.squamous [#/area] in Ur ine sediment by Microscopy high power field none seen < or = 5 Squamous Epithelial Cells AT [facility]) Hyaline casts [#/area] in Urine sediment by Microscopy low power field none seen none seen Hyaline Cast V[facility]SA ([facility]) Bacteria [#/area] in Urine sediment by Microscopy high power field none seen none seen Bacteria [facility] ([facility]) Erythrocytes [#/area] in Urine sediment by Microscopy high power field none seen < or = 2 Rbc [facility]SA ([facility]) ID Date Data Source [id number] 07/06/2021 12:00:00 AM EDT [facility] ([facility]) Name Value Range Interpretation Code Description Data Snadra rce(s) Supporting Document(s) Glucose [Mass/volume] in Serum or Plasma 308 mg/dL 65-99 Above high normal Glucose [facility] ([facility]) Urea nitrogen [Mass/volume] in Serum or Plasma 15 mg/dL 7-25 Urea Nitrogen (BUN) VANESSA ([facility]) Urea nitrogen/Creatinine [Mass Ratio] in Serum or Plasma not applic able 6-22 BUN/creatinine Ratio [facility] ([facility]) Creatinine [Mass/volume] in Serum or Plasma 0.93 mg/dL 0.70-1.33 Creatinine V[facility]ESSA ([facility]) Glomerular filtration rate/1.73 sq M.pre dicted among non-blacks [Volume Rate/Area] in Serum, Plasma or Blood by Creatinine-based formula (CKD-EPI) 95 mL/min/1.73m2 > or = 60 eGFR Non-afr. [place]ian V[facility]ESSA ([facility]) Glomerular filtration rate/1.73 sq M.pre dicted among blacks [Volume Rate/Area] in Serum, Plasma or Blood by Creatinine-based formula (CKD-EPI) 110 mL/min/1.73m2 > or = 60 eGFR V[facility]SA ([facility]) Chloride [Moles/volume] in Serum or Plasma 102 mmol/L 98-110 Chloride V[facility]SA ([facility]) Potassium [Moles/volume] in Serum or Plasma 4.0 mmol/L 3.5-5.3 Potassium V[facility]ESSA ([facility]) Sodium [Moles/volume] in Serum or Plasma 135 mmol/L 135-146 Sodium V[facility]ESSA ([facility]) Carbon dioxide, total [Moles/volume] in Serum or Plasma 27 mmol/L 20-32 Carbon Dioxide VANESSA ([facility]) Calcium [Mass/volume] in Serum or Plasma 8.9 mg/dL 8.6-10.3 Calcium V[facility]ESSA ([facility]) Albumin [Mass/volume] in Serum or Plasma 4.1 g/dL 3.6-5.1 Albumin V[facility]SA ([facility]) Globulin [Mass/volume] in Serum by calculation 2.7 g/dL_(calc) 1.9- 3.7 Globulin V[facility]SA ([facility]) Protein [Mass/volume] in Serum or Plasma 6.8 g/dL 6.1-8.1 Protein, Total [facility] ([facility]) Bilirubin.total [Mass/volume] in Serum or Plasma 0.9 mg/dL 0.2-1 .2 Bilirubin, Total VANESSA ([facility]) Albumin/Globulin [Mass Ratio] in Serum or Plasma 1.5 (calc) 1.0-2 .5 Albumin/globulin Ratio VANESSA ([facility]) Alkaline phosphatase [Enzymatic activity/volume] in Serum or Plasma 73 U/L 35-144 Alkaline Phosphatase V[facility]SA ([facility]) Aspartate aminotransferase [Enzymatic activity/volume] in Se rum or Plasma 9 U/L 10-35 Below low normal Ast VANESSA ([facility]) Alanine aminotransferase [Enzymatic activity/volume] in Seru m or Plasma 15 U/L 9-46 Alt V[facility]SA ([facility]) ID Date Data Source [id number] 07/06/2021 12:00:00 AM EDT V[facility]ESSA ([facility]) Name Value Range Interpretation Code Description Data Sandra rce(s) Supporting Document(s) Cholesterol in HDL [Mass/volume] in Serum or Plasma 38 mg/dL > or = 40 Below low normal HDL Cholesterol V[facility]SA ([facility]) Triglyceride [Mass/volume] in Serum or Plasma 208 mg/dL <150 Above high normal Triglycerides VANESSA ([facility]) Cholesterol [Mass/volume] in Serum or Plasma 114 mg/dL <200 Cholesterol, Total VANESSA ([facility]) Cholesterol in LDL [Mass/volume] in Serum or Plasma by calculation 49 mg/dL_(calc) LDL-cholesterol V[facility]ESSA ([facility]) Cholesterol.total/Cholesterol in HDL [Mass Ratio] in Serum o r Plasma 3.0 (calc) <5.0 Chol/hdlc Ratio [facility] ([facility]) Cholesterol non HDL [Mass/volume] in Serum or Plasma 76 mg/dL_(calc ) <130 Non HDL Cholesterol [facility]SA ([facility]) ID Date Data Source [id number] 06/28/2021 11:45:00 AM EDT [facility]) Name Value Range Interpretation Code Description Data Sandra rce(s) Supporting Document(s) Hemoglobin A1c/Hemoglobin.total in Blood 10.4 % Abnormal (applies to non- numeric results) Hba1C [facility] ([facility]) ID Date Data Source [id number] 06/28/2021 11:45:00 AM EDT [facility] ([facility]) Name Value Range Interpretation Code Description Data Sandra rce(s) Supporting Document(s) Hemoglobin A1c/Hemoglobin.total in Blood 10.4 % Abnormal (applies to non- numeric results) Hba1C [facility] ([facility]) ID Date Data Source [id number] 06/28/2021 11:45:00 AM EDT [facility]) Name Value Range Interpretation Code Description Data Sandra rce(s) Supporting Document(s) Hemoglobin A1c/Hemoglobin.total in Blood 10.4 % Abnormal (applies to non- numeric results) Hba1C [facility] ([facility]) ID Date Data Source [id number] 06/28/2021 11:45:00 AM EDT [facility] ([facility]) Name Value Range Interpretation Code Description Data Sandra rce(s) Supporting Document(s) Hemoglobin A1c/Hemoglobin.total in Blood 10.4 % Abnormal (applies to non- numeric results) Hba1C [facility] ([facility]) ID Date Data Source [id number] 04/25/2021 08:05:00 AM EDT [facility] ([facility]) Name Value Range Interpretation Code Description Data Sandra rce(s) Supporting Document(s) blood urea nitrogen 20 mg/dL 7-18 Above high normal Blood Ure a Nitrogen [facility] ([facility]) glucose, fasting 382 mg/dL 70-100 Above high normal Glucose, Fas ting VANESSA ([facility]) creatinine for GFR 1.19 mg/dL 0.70-1.30 Creatinine for GF R VANESSA ([facility]) sodium level 135 mEq/L 136-145 Below low normal Sodium Level ATHE ([facility]) glomerular filtration rate > 60.0 >56 Glomerula r Filtration Rate VANESSA ([facility]) chloride level 100 mEq/L 98-107 Chloride Level [facility] ([facility]) potassium serum 4.5 mEq/L 3.5-5.1 Potassium Serum ATHE NA ([facility]) anion gap 8 mEq/L 8-16 Anion Gap V[facility]ESSA ([facility]) carbon dioxide level 27 mEq/L 21-32 Carbon Dioxide Level VANESSA ([facility]) AST/SGOT 9 U/L 7-37 AST/SGOT [facility] ([facility]) calcium level 9.3 mg/dL 8.5-10.1 Calcium Level [facility] ( [facility]) ALT/SGPT 26 U/L 12-78 ALT/SGPT VANESSA ([facility]) alkaline phosphatase 71 U/L 45-117 Alkaline Phosph atase VANESSA ([facility]) bilirubin,total 1.0 mg/dL 0.2-1.0 Bilirubin,total ATHE NA ([facility]) albumin 3.9 gm/dL 3.2-5.2 Albumin V[facility]ESSA ([facility]) total protein 7.6 gm/dL 6.4-8.2 Total Protein VANESSA ( [facility]) albumin/globulin ratio Albumin/globu jose l Ratio VANESSA ([facility]) ID Date Data Source [id number] 04/25/2021 08:05:00 AM EDT V[facility]ESSA ([facility]) Name Value Range Interpretation Code Description Data Sandra rce(s) Supporting Document(s) blood urea nitrogen 20 mg/dL 7-18 Above high normal Blood Ure a Nitrogen VANESSA ([facility]) glucose, fasting 382 mg/dL 70-100 Above high normal Glucose, Fas ting VANESSA ([facility]) creatinine for GFR 1.19 mg/dL 0.70-1.30 Creatinine for GF R VANESSA ([facility]) glomerular filtration rate > 60.0 >56 Glomerula r Filtration Rate VANESSA ([facility]) sodium level 135 mEq/L 136-145 Below low normal Sodium Level ATHE NA ([facility]) chloride level 100 mEq/L 98-107 Chloride Level VANESSA ([facility]) potassium serum 4.5 mEq/L 3.5-5.1 Potassium Serum ATHE NA ([facility]) carbon dioxide level 27 mEq/L 21-32 Carbon Dioxide Level VANESSA ([facility]) anion gap 8 mEq/L 8-16 Anion Gap V[facility]SA ([facility]) AST/SGOT 9 U/L 7-37 AST/SGOT V[facility] ([facility]) calcium level 9.3 mg/dL 8.5-10.1 Calcium Level VANESSA ( [facility]) ALT/SGPT 26 U/L 12-78 ALT/SGPT VANESSA ([facility]) alkaline phosphatase 71 U/L 45-117 Alkaline Phosph atase VANESSA ([facility]) bilirubin,total 1.0 mg/dL 0.2-1.0 Bilirubin,total ATHE ([facility]) albumin 3.9 gm/dL 3.2-5.2 Albumin VANESSA ([facility]) total protein 7.6 gm/dL 6.4-8.2 Total Protein VANESSA ( [facility]) albumin/globulin ratio Albumin/globu jose l Ratio VANESSA ([facility]) ID Date Data Source [id number] 04/25/2021 08:05:00 AM EDT V[facility]SA ([facility]) Name Value Range Interpretation Code Description Data Sandra rce(s) Supporting Document(s) glucose, fasting 382 mg/dL 70-100 Above high normal Glucose, Fas ting VANESSA ([facility]) blood urea nitrogen 20 mg/dL 7-18 Above high normal Blood Ure a Nitrogen VANESSA ([facility]) glomerular filtration rate > 60.0 >56 Glomerula r Filtration Rate VANESSA ([facility]) creatinine for GFR 1.19 mg/dL 0.70-1.30 Creatinine for GF R VANESSA ([facility]) potassium serum 4.5 mEq/L 3.5-5.1 Potassium Serum ATHE ([facility]) sodium level 135 mEq/L 136-145 Below low normal Sodium Level ATHE ([facility]) anion gap 8 mEq/L 8-16 Anion Gap VANESSA ([facility]) carbon dioxide level 27 mEq/L 21-32 Carbon Dioxide Level VANESSA ([facility]) chloride level 100 mEq/L 98-107 Chloride Level V[facility]ESSA ([facility]) AST/SGOT 9 U/L 7-37 AST/SGOT V[facility] ([facility]) calcium level 9.3 mg/dL 8.5-10.1 Calcium Level VANESSA ( [facility]) alkaline phosphatase 71 U/L 45-117 Alkaline Phosph atase VANESSA ([facility]) bilirubin,total 1.0 mg/dL 0.2-1.0 Bilirubin,total ATHE NA ([facility]) ALT/SGPT 26 U/L 12-78 ALT/SGPT V[facility]ESSA ([facility]) total protein 7.6 gm/dL 6.4-8.2 Total Protein V[facility]ESSA ( [facility]) albumin 3.9 gm/dL 3.2-5.2 Albumin VANESSA ([facility]) albumin/globulin ratio Albumin/globu jose l Ratio VANESSA ([facility]) ID Date Data Source [id number] 04/25/2021 08:05:00 AM EDT V[facility]SA ([facility]) Name Value Range Interpretation Code Description Data Sandra rce(s) Supporting Document(s) glucose, fasting 382 mg/dL 70-100 Above high normal Glucose, Fas ting VANESSA ([facility]) glomerular filtration rate > 60.0 >56 Glomerula r Filtration Rate VANESSA ([facility]) creatinine for GFR 1.19 mg/dL 0.70-1.30 Creatinine for GF R VANESSA ([facility]) blood urea nitrogen 20 mg/dL 7-18 Above high normal Blood Ure a Nitrogen VNAESSA ([facility]) sodium level 135 mEq/L 136-145 Below low normal Sodium Level ATHE NA ([facility]) chloride level 100 mEq/L 98-107 Chloride Level VANSESA ([facility]) potassium serum 4.5 mEq/L 3.5-5.1 Potassium Serum ATHE NA ([facility]) carbon dioxide level 27 mEq/L 21-32 Carbon Dioxide Level VANESSA ([facility]) anion gap 8 mEq/L 8-16 Anion Gap VANESSA ([facility]) calcium level 9.3 mg/dL 8.5-10.1 Calcium Level VANESSA ( [facility]) ALT/SGPT 26 U/L 12-78 ALT/SGPT V[facility]ESSA ([facility]) AST/SGOT 9 U/L 7-37 AST/SGOT V[facility]ESSA ([facility]) total protein 7.6 gm/dL 6.4-8.2 Total Protein VANESSA ( [facility]) alkaline phosphatase 71 U/L 45-117 Alkaline Phosph atase VANESSA ([facility]) bilirubin,total 1.0 mg/dL 0.2-1.0 Bilirubin,total ATHE ([facility]) albumin/globulin ratio Albumin/globu jose l Ratio VANESSA ([facility]) albumin 3.9 gm/dL 3.2-5.2 Albumin V[facility]ESSA ([facility]) ID Date Data Source [id number] 04/25/2021 08:05:00 AM EDT V[facility]ESSA ([facility]) Name Value Range Interpretation Code Description Data Sandra rce(s) Supporting Document(s) creatinine for GFR 1.19 mg/dL 0.70-1.30 Creatinine for GF R VANESSA ([facility]) glucose, fasting 382 mg/dL 70-100 Above high normal Glucose, Fas ting VANESSA ([facility]) blood urea nitrogen 20 mg/dL 7-18 Above high normal Blood Ure a Nitrogen VANESSA ([facility]) glomerular filtration rate > 60.0 >56 Glomerula r Filtration Rate VANESSA ([facility]) sodium level 135 mEq/L 136-145 Below low normal Sodium Level ATHE ([facility]) carbon dioxide level 27 mEq/L 21-32 Carbon Dioxide Level VANESSA ([facility]) potassium serum 4.5 mEq/L 3.5-5.1 Potassium Serum ATHE ([facility]) chloride level 100 mEq/L 98-107 Chloride Level VANESSA ([facility]) anion gap 8 mEq/L 8-16 Anion Gap VANESSA ([facility]) calcium level 9.3 mg/dL 8.5-10.1 Calcium Level VANESSA ( [facility]) alkaline phosphatase 71 U/L 45-117 Alkaline Phosph atase VANESSA ([facility]) ALT/SGPT 26 U/L 12-78 ALT/SGPT VANESSA ([facility]) AST/SGOT 9 U/L 7-37 AST/SGOT VANESSA ([facility]) total protein 7.6 gm/dL 6.4-8.2 Total Protein VANESSA ( [facility]) bilirubin,total 1.0 mg/dL 0.2-1.0 Bilirubin,total ATHE NA ([facility]) albumin 3.9 gm/dL 3.2-5.2 Albumin VANESSA ([facility]) albumin/globulin ratio Albumin/globu jose l Ratio VANESSA ([facility]) ID Date Data Source [id number] 04/07/2021 04:34:00 PM EDT VANESSA ([facility]) Name Value Range Interpretation Code Description Data Sandra rce(s) Supporting Document(s) antinuclear antibodies direct negative negative Antinu clear Antibodies Direct VANESSA ([facility]) ID Date Data Source [id number] 04/07/2021 04:34:00 PM EDT VANESSA ([facility]) Name Value Range Interpretation Code Description Data Sandra rce(s) Supporting Document(s) vitamin B6,pyridoxal phosphate 13.4 ug/L 5.3-46.7 Vitamin B6,Pyridoxal Phosphate VANESSA ([facility]) ID Date Data Source [id number] 04/07/2021 04:34:00 PM EDT VANESSA ([facility]) Name Value Range Interpretation Code Description Data Sandra rce(s) Supporting Document(s) vitamin B1 level whole blood 134.8 nmol/L 66.5-200.0 Vitamin B1 Level Whole Blood VANESSA ([facility]) ID Date Data Source [id number] 04/07/2021 04:34:00 PM EDT VANESSA ([facility]) Name Value Range Interpretation Code Description Data Sandra rce(s) Supporting Document(s) vitamin E(alpha tocopherol) 6.2 mg/L 7.0-25.1 Below low nor mal Vitamin E(alpha Tocopherol) VANESSA ([facility]) vitamin E(gamma tocopherol) 0.7 mg/L 0.5-5.5 Vitamin E(gamma Tocopherol) VANESSA ([facility]) ID Date Data Source [id number] 04/07/2021 04:34:00 PM EDT YUMA ([facility]) Name Value Range Interpretation Code Description Data Sandra rce(s) Supporting Document(s) rheumatoid factor quant < 10.0 <15.0 Rheumatoid F actor Quant [facility] ([facility]) ID Date Data Source [id number] 04/07/2021 04:34:00 PM EDT YUMA ([facility]) Name Value Range Interpretation Code Description Data Sandra rce(s) Supporting Document(s) folate 17.7 NG/mL Folate VANESSA ([facility]) vitamin B12 level 493 pg/mL Vitamin B12 Level YUMA ([facility]) ID Date Data Source [id number] 04/07/2021 04:34:00 PM EDT YUMA ([facility]) Name Value Range Interpretation Code Description Data Sandra rce(s) Supporting Document(s) svqaj-6-njmfvonh % 3.4 % 2.9-4.9 Qskeo-8-Zrcagsvk % [facility] ([facility]) albumin % 60.8 % 55.8-66.1 Albumin % [facility]) vbqj-3-hjhfnfctg % 5.5 % 4.7-7.2 Ylwe-4-Dngpdczph % [facility]) vuhqi-9-exlkxjxeq % 10.3 % 7.1-11.8 Ombui-0-Vvnatdbf s % Y[facility] ([facility]) gamma globulin % 14.3 % 11.1-18.8 Gamma Globulin % AT [facility]) xnok-3-ppcyvtgac % 5.7 % 3.2-6.5 Fayx-5-Sgbwartkl % Y[facility] ([facility]) njyhe-8-bzujevmpn 0.75 gm/dL 0.42-0.99 Rpmqa-0-Uszsasbhi [facility] ([facility]) qcblk-1-yzxckuzii 0.25 gm/dL 0.17-0.41 Wvnpn-0-Atghesxtp VANESSA ([facility]) albumin 4.44 gm/dL 3.29-5.55 Albumin YUMA ([facility]) wylh-2-nzozwvaaf 0.40 gm/dL 0.28-0.60 Cruj-4-Zzqzlolkd AT [facility] ([facility]) nfba-7-dymuomytb 0.42 gm/dL 0.19-0.55 Xdxx-3-Hmwhaxnuh AT [facility] ([facility]) gamma globulins 1.04 gm/dL 0.65-1.58 Gamma Globulins ATHE ([facility]) total protein 7.3 gm/dL 6.4-8.2 Total Protein VANESSA ( [facility]) spep pathologist review rev'd by Anna kumar Spep Pathologist Review VANESSA ([facility]) spep interpretation see comment Spep Interpreta tion VANESSA ([facility]) ID Date Data Source [id number] 04/07/2021 04:34:00 PM EDT YUMA ([facility]) Name Value Range Interpretation Code Description Data Sandra rce(s) Supporting Document(s) PTT lupus type anticoag screen 0-1.2 PTT L upus Type Anticoag Screen VANESSA ([facility]) ID Date Data Source [id number] 04/07/2021 04:34:00 PM EDT VANESSA ([facility]) Name Value Range Interpretation Code Description Data Sandra rce(s) Supporting Document(s) erythrocyte sedimentation rate 3 mm/HR 0-20 Eryth rocyte Sedimentation Rate VANESSA ([facility]) ID Date Data Source [id number] 04/07/2021 04:34:00 PM EDT YUMA ([facility]) Name Value Range Interpretation Code Description Data Sandra rce(s) Supporting Document(s) Hemoglobin A1c/Hemoglobin.total in Blood 11.3 % Hemoglobin a1C VANESSA ([facility]) estimated average glucose 278 mg/dL 60-110 Above high norm al Estimated Average Glucose VANESSA ([facility]) ID Date Data Source [id number] 04/07/2021 04:34:00 PM EDT YUMA ([facility]) Name Value Range Interpretation Code Description Data Sandra rce(s) Supporting Document(s) antinuclear antibodies direct negative negative Antinu clear Antibodies Direct [facility]) ID Date Data Source [id number] 04/07/2021 04:34:00 PM EDT YUMA ([facility]) Name Value Range Interpretation Code Description Data Sandra rce(s) Supporting Document(s) vitamin B6,pyridoxal phosphate 13.4 ug/L 5.3-46.7 Vitamin B6,Pyridoxal Phosphate [facility]) ID Date Data Source [id number] 04/07/2021 04:34:00 PM EDT [facility]) Name Value Range Interpretation Code Description Data Sandra rce(s) Supporting Document(s) vitamin B1 level whole blood 134.8 nmol/L 66.5-200.0 Vitamin B1 Level Whole Blood [facility]) ID Date Data Source [id number] 04/07/2021 04:34:00 PM EDT [facility]) Name Value Range Interpretation Code Description Data Sandra rce(s) Supporting Document(s) vitamin E(alpha tocopherol) 6.2 mg/L 7.0-25.1 Below low nor mal Vitamin E(alpha Tocopherol) VANESSA ([facility]) vitamin E(gamma tocopherol) 0.7 mg/L 0.5-5.5 Vitamin E(gamma Tocopherol) [facility]) ID Date Data Source [id number] 04/07/2021 04:34:00 PM EDT [facility]) Name Value Range Interpretation Code Description Data Sandra rce(s) Supporting Document(s) rheumatoid factor quant < 10.0 <15.0 Rheumatoid F actor Quant [facility] ([facility]) ID Date Data Source [id number] 04/07/2021 04:34:00 PM EDT [facility]) Name Value Range Interpretation Code Description Data Sandra rce(s) Supporting Document(s) vitamin B12 level 493 pg/mL Vitamin B12 Level YUMA ([facility]) folate 17.7 NG/mL Folate VANESSA ([facility]) ID Date Data Source [id number] 04/07/2021 04:34:00 PM EDT VANESSA ([facility]) Name Value Range Interpretation Code Description Data Sandra rce(s) Supporting Document(s) albumin % 60.8 % 55.8-66.1 Albumin % Y[facility]MA ([facility]) uiovq-4-rvsbphrm % 3.4 % 2.9-4.9 Lnchv-6-Rsbbtoff % [facility] ([facility]) yspi-2-appxzjfuy % 5.5 % 4.7-7.2 Bcxi-9-Tfzbkpydm % [facility]) airdu-8-hxwdbdakj % 10.3 % 7.1-11.8 Ockez-1-Hixwkkke s % Y[facility] ([facility]) gamma globulin % 14.3 % 11.1-18.8 Gamma Globulin % AT [facility]) mwrg-1-retcpbwzt % 5.7 % 3.2-6.5 Tdhg-6-Egceoquwb % [facility] ([facility]) sswdi-1-ugxcvbfkb 0.25 gm/dL 0.17-0.41 Jqwqz-6-Kgbwiztvp VANESSA ([facility]) albumin 4.44 gm/dL 3.29-5.55 Albumin VANESSA ([facility]) udiwf-1-iglddiuib 0.75 gm/dL 0.42-0.99 Qgoun-1-Sebelyivy [facility]) nvtr-2-hgtaxvnzz 0.40 gm/dL 0.28-0.60 Cwhe-1-Ocwgamypw AT [facility]) tmho-7-hnpcndsme 0.42 gm/dL 0.19-0.55 Voem-3-Ywbzdoniq AT [facility] ([facility]) gamma globulins 1.04 gm/dL 0.65-1.58 Gamma Globulins ATHE NA ([facility]) spep interpretation see comment Spep Interpreta tion VANESSA ([facility]) total protein 7.3 gm/dL 6.4-8.2 Total Protein VANESSA ( [facility]) spep pathologist review rev'd by Anan kumar Spep Pathologist Review VANESSA ([facility]) ID Date Data Source [id number] 04/07/2021 04:34:00 PM EDT YUMA ([facility]) Name Value Range Interpretation Code Description Data Sandra rce(s) Supporting Document(s) PTT lupus type anticoag screen 0-1.2 PTT L upus Type Anticoag Screen VANESSA ([facility]) ID Date Data Source [id number] 04/07/2021 04:34:00 PM EDT YUMA ([facility]) Name Value Range Interpretation Code Description Data Sandra rce(s) Supporting Document(s) erythrocyte sedimentation rate 3 mm/HR 0-20 Eryth rocyte Sedimentation Rate [facility] ([facility]) ID Date Data Source [id number] 04/07/2021 04:34:00 PM EDT YUMA ([facility]) Name Value Range Interpretation Code Description Data Sandra rce(s) Supporting Document(s) Hemoglobin A1c/Hemoglobin.total in Blood 11.3 % Hemoglobin a1C VANESSA ([facility]) estimated average glucose 278 mg/dL 60-110 Above high norm al Estimated Average Glucose YUMA ([facility]) ID Date Data Source [id number] 04/07/2021 04:34:00 PM EDT YUMA ([facility]) Name Value Range Interpretation Code Description Data Sandra rce(s) Supporting Document(s) antinuclear antibodies direct negative negative Antinu clear Antibodies Direct [facility] ([facility]) ID Date Data Source [id number] 04/07/2021 04:34:00 PM EDT [facility]) Name Value Range Interpretation Code Description Data Sandra rce(s) Supporting Document(s) vitamin B6,pyridoxal phosphate 13.4 ug/L 5.3-46.7 Vitamin B6,Pyridoxal Phosphate [facility]) ID Date Data Source [id number] 04/07/2021 04:34:00 PM EDT [facility]) Name Value Range Interpretation Code Description Data Sandra rce(s) Supporting Document(s) vitamin B1 level whole blood 134.8 nmol/L 66.5-200.0 Vitamin B1 Level Whole Blood [facility]) ID Date Data Source [id number] 04/07/2021 04:34:00 PM EDT [facility]) Name Value Range Interpretation Code Description Data Sandra rce(s) Supporting Document(s) vitamin E(alpha tocopherol) 6.2 mg/L 7.0-25.1 Below low nor mal Vitamin E(alpha Tocopherol) YUMA ([facility]) vitamin E(gamma tocopherol) 0.7 mg/L 0.5-5.5 Vitamin E(gamma Tocopherol) YUMA ([facility]) ID Date Data Source [id number] 04/07/2021 04:34:00 PM EDT YUMA ([facility]) Name Value Range Interpretation Code Description Data Sandar rce(s) Supporting Document(s) rheumatoid factor quant < 10.0 <15.0 Rheumatoid F actor Quant [facility]) ID Date Data Source [id number] 04/07/2021 04:34:00 PM EDT [facility]) Name Value Range Interpretation Code Description Data Sandra rce(s) Supporting Document(s) vitamin B12 level 493 pg/mL Vitamin B12 Level VANESSA ([facility]) folate 17.7 NG/mL Folate VANESSA ([facility]) ID Date Data Source [id number] 04/07/2021 04:34:00 PM EDT VANESSA ([facility]) Name Value Range Interpretation Code Description Data Sandra rce(s) Supporting Document(s) albumin % 60.8 % 55.8-66.1 Albumin % VANESSA ([facility]) qtupj-8-ztbblpbj % 3.4 % 2.9-4.9 Jkzvq-4-Vqyvhbqt % VANESSA ([facility]) ojfij-6-wjimrqkwz % 10.3 % 7.1-11.8 Jcqfo-7-Oqcwleab s % Y[facility] ([facility]) zofd-2-cjayqysik % 5.7 % 3.2-6.5 Nlrb-2-Rviuazwwt % [facility] ([facility]) ddkt-9-giveijnxk % 5.5 % 4.7-7.2 Cjmb-2-Fbtddsldu % [facility] ([facility]) albumin 4.44 gm/dL 3.29-5.55 Albumin VANESSA ([facility]) gamma globulin % 14.3 % 11.1-18.8 Gamma Globulin % AT [facility] ([facility]) bszar-4-omqkoitgy 0.25 gm/dL 0.17-0.41 Ncsix-5-Jceohuinz VANESSA ([facility]) xbngk-7-cghtihaat 0.75 gm/dL 0.42-0.99 Nkttu-8-Msymccnzx VANESSA ([facility]) mfpl-5-pebbuvunw 0.42 gm/dL 0.19-0.55 Vrfe-4-Wxniaqbwc AT [facility]) dlvf-4-webtcrhdl 0.40 gm/dL 0.28-0.60 Iors-1-Fcmzyomlq AT [facility]) gamma globulins 1.04 gm/dL 0.65-1.58 Gamma Globulins ATHE NA ([facility]) spep interpretation see comment Spep Interpreta tion VANESSA ([facility]) total protein 7.3 gm/dL 6.4-8.2 Total Protein VANESSA ( [facility]) spep pathologist review rev'd by Anna kumar Spep Pathologist Review VANESSA ([facility]) ID Date Data Source [id number] 04/07/2021 04:34:00 PM EDT VANESSA ([facility]) Name Value Range Interpretation Code Description Data Sandra rce(s) Supporting Document(s) PTT lupus type anticoag screen 0-1.2 PTT L upus Type Anticoag Screen [facility] ([facility]) ID Date Data Source [id number] 04/07/2021 04:34:00 PM EDT Y[facility] ([facility]) Name Value Range Interpretation Code Description Data Sandra rce(s) Supporting Document(s) erythrocyte sedimentation rate 3 mm/HR 0-20 Eryth rocyte Sedimentation Rate [facility] ([facility]) ID Date Data Source [id number] 04/07/2021 04:34:00 PM EDT YU[facility] ([facility]) Name Value Range Interpretation Code Description Data Sandra rce(s) Supporting Document(s) estimated average glucose 278 mg/dL 60-110 Above high norm al Estimated Average Glucose Y[facility] ([facility]) Hemoglobin A1c/Hemoglobin.total in Blood 11.3 % Hemoglobin a1C VANESSA ([facility]) ID Date Data Source [id number] 04/07/2021 04:34:00 PM EDT YUMA ([facility]) Name Value Range Interpretation Code Description Data Sandra rce(s) Supporting Document(s) antinuclear antibodies direct negative negative Antinu clear Antibodies Direct [facility]) ID Date Data Source [id number] 04/07/2021 04:34:00 PM EDT YUMA ([facility]) Name Value Range Interpretation Code Description Data Sandra rce(s) Supporting Document(s) vitamin B6,pyridoxal phosphate 13.4 ug/L 5.3-46.7 Vitamin B6,Pyridoxal Phosphate VANESSA ([facility]) ID Date Data Source [id number] 04/07/2021 04:34:00 [facility] Name Value Range Interpretation Code Description Data Sandra rce(s) Supporting Document(s) vitamin B1 level whole blood 134.8 nmol/L 66.5-200.0 Vitamin B1 Level Whole Blood [facility]) ID Date Data Source [id number] 04/07/2021 04:34:00 PM EDT [facility]) Name Value Range Interpretation Code Description Data Sandra rce(s) Supporting Document(s) vitamin E(alpha tocopherol) 6.2 mg/L 7.0-25.1 Below low nor mal Vitamin E(alpha Tocopherol) VANESSA ([facility]) vitamin E(gamma tocopherol) 0.7 mg/L 0.5-5.5 Vitamin E(gamma Tocopherol) [facility] ([facility]) ID Date Data Source [id number] 04/07/2021 04:34:00 PM EDT [facility] Name Value Range Interpretation Code Description Data Asndra rce(s) Supporting Document(s) rheumatoid factor quant < 10.0 <15.0 Rheumatoid F actor Quant [facility] ID Date Data Source [id number] 04/07/2021 04:34:00 PM EDT [facility]) Name Value Range Interpretation Code Description Data Sandra rce(s) Supporting Document(s) vitamin B12 level 493 pg/mL Vitamin [facility]12 [facility] folate 17.7 NG/mL Folate VANESSA ([facility]) ID Date Data Source [id number] 04/07/2021 04:34:00 PM EDT YUMA ([facility]) Name Value Range Interpretation Code Description Data Sandra rce(s) Supporting Document(s) albumin % 60.8 % 55.8-66.1 Albumin % [facility] ([facility]) eluhl-5-fiwdmpju % 3.4 % 2.9-4.9 Sgyfv-9-Yvlckfbq % [facility] ([facility]) aartl-4-lmmswnedy % 10.3 % 7.1-11.8 Kmiyc-8-Rcxmbvqo s % [facility] ([facility]) ipsi-3-wqwotfzcf % 5.5 % 4.7-7.2 Vcrv-3-Qcuolfxmj % [facility] ([facility]) mrij-5-jpnzkzkvs % 5.7 % 3.2-6.5 Qdzp-9-Wwuoubkfy % [facility] ([facility]) gamma globulin % 14.3 % 11.1-18.8 Gamma Globulin % AT [facility]) vjjqq-3-jwjkrjoge 0.75 gm/dL 0.42-0.99 Xdboa-9-Yqfheieov [facility] ([facility]) dukrf-3-kwucusimo 0.25 gm/dL 0.17-0.41 Uvkze-0-Isojrrnnp [facility] ([facility]) albumin 4.44 gm/dL 3.29-5.55 Albumin [facility] ([facility]) fyso-7-jeadwyhfm 0.40 gm/dL 0.28-0.60 Tofx-1-Friaxjxqz AT [facility]) daee-2-pbywxsjxc 0.42 gm/dL 0.19-0.55 Jdzz-0-Ouwzomhrh AT [facility]) gamma globulins 1.04 gm/dL 0.65-1.58 Gamma Globulins ATHE NA ([facility]) spep interpretation see comment Spep Interpreta tion VANESSA ([facility]) spep pathologist review rev'd by Anna kumar Spep Pathologist Review VANESSA ([facility]) total protein 7.3 gm/dL 6.4-8.2 Total Protein [facility] ( [facility]) ID Date Data Source [id number] 04/07/2021 04:34:00 PM EDT [facility] ([facility]) Name Value Range Interpretation Code Description Data Sandra rce(s) Supporting Document(s) PTT lupus type anticoag screen 0-1.2 PTT L upus Type Anticoag Screen [facility] ([facility]) ID Date Data Source [id number] 04/07/2021 04:34:00 PM EDT [facility] ([facility]) Name Value Range Interpretation Code Description Data Sandra rce(s) Supporting Document(s) erythrocyte sedimentation rate 3 mm/HR 0-20 Eryth rocyte Sedimentation Rate [facility] ([facility]) ID Date Data Source [id number] 04/07/2021 04:34:00 PM EDT [facility] ([facility]) Name Value Range Interpretation Code Description Data Sandra rce(s) Supporting Document(s) Hemoglobin A1c/Hemoglobin.total in Blood 11.3 % Hemoglobin a1C [facility] ([facility]) estimated average glucose 278 mg/dL 60-110 Above high norm al Estimated Average Glucose [facility] ([facility]) ID Date Data Source [id number] 04/07/2021 04:34:00 PM EDT [facility]) Name Value Range Interpretation Code Description Data Sandra rce(s) Supporting Document(s) Antinuclear Antibodies Direct Laboratory test result [facility] ([facility]) Performed at: - [facility] [address] [id number] Airport Engineer: Jaime Chaney MD, Phone: [phone] Performed at: - [facility] [address] [id number] Airport Engineer: Andria Dinh MD, Phone: [phone] ID Date Data Source [id number] 04/07/2021 04:34:00 PM EDT [facility] ([facility]) Name Value Range Interpretation Code Description Data Sandra rce(s) Supporting Document(s) Thiamine [Mass/volume] in Blood 134.8 nmol/L 66.5-200.0 [facility] ([facility], ) Specimen Comment: Test(s) [id number]-Xipyntp E(Alpha Tocopherol); 976820- Specimen Comment: Vitamin E(Gamma Tocopherol); 918913-Zfsmaog B6; 291291- Specimen Comment: Vit. B1, Whole Blood Specimen Comment: was developed and its performance characteristics Specimen Comment: determined by [facility]. It has not been cleared or approved Specimen Comment: by the Food and Drug Administration. Pyridoxine [Mass/volume] in Serum or Plasma 13.4 ug/L 5.3-46.7 [facility] ([facility], ) Specimen Comment: Test(s) 605499-Jjhlans E(Alpha Tocopherol); 794109- Specimen Comment: Vitamin E(Gamma Tocopherol); 990475-Zbesxjv B6; 448550- Specimen Comment: Vit. B1, Whole Blood Specimen Comment: was developed and its performance characteristics Specimen Comment: determined by [facility]. It has not been cleared or approved Specimen Comment: by the Food and Drug Administration. ID Date Data Source [id number] 04/07/2021 04:34:00 PM EDT [facility] ([facility], ) Name Value Range Interpretation Code Description Data Sandra rce(s) Supporting Document(s) Vitamin E(Alpha Tocopherol) 6.2 mg/L 7.0-25.1 [facility] ([facility] ) Vitamin E(Gamma Tocopherol) 0.7 mg/L 0.5-5.5 [facility] ([facility], ) Reference intervals for alpha and gamma- tocopherol determined from National Health and Nutrition Examination Survey, 2009-9062. Individuals with alpha-tocopherol levels less than 5.0 mg/L are considered vitamin E deficient. ID Date Data Source [id number] 04/07/2021 04:34:00 PM EDT [facility] ([facility], ) Name Value Range Interpretation Code Description Data Sandra rce(s) Supporting Document(s) Rheumatoid factor [Units/volume] in Serum or Plasma Laboratory test result [facility] ([facility], ) <content>note:<nlbl:demographic_changed> </content>
<content></content> ID Date Data Source [id number] 04/07/2021 04:34:00 PM EDT [facility] ([facility], ) Name Value Range Interpretation Code Description Data Sandra rce(s) Supporting Document(s) Vitamin B12 Level 493 pg/mL [facility] ([facility], ) VITAMIN B12 NORMAL RANGE NORMAL 247 - 911 PG/ML INDETERMINATE 211 - 246 PG/ML DEFICIENT LESS THAN 211 PG/ML Folate 17.7 ng/mL [facility] ([facility]) FOLATE NORMAL RANGE NORMAL GREATER THAN 5.4 NG/ML INDETERMINATE 3.4-5.4 NG/ML DEFICIENT LESS THAN 3.4 NG/ML ID Date Data Source [id number] 04/07/2021 04:34:00 PM EDT [facility] ([facility]) Name Value Range Interpretation Code Description Data Sandra rce(s) Supporting Document(s) Albumin % 60.8 % 55.8-66.1 [facility] ([facility], ) Qahzy-7-Vxincpyp % 3.4 % 2.9-4.9 [facility] ([facility]) Sznqz-6-Vdwjyswch % 10.3 % 7.1-11.8 [facility] ([facility], ) Ookr-3-Gkkmvyahw % 5.5 % 4.7-7.2 [facility] ([facility], ) Hkkj-8-Llefijepf % 5.7 % 3.2-6.5 [facility] ([facility]) Albumin 4.44 GM/DL 3.29-5.55 [facility] ([facility], ) Gamma Globulin % 14.3 % 11.1-18.8 [facility] ([facility]) Kfjav-4-Framjrojf 0.25 GM/DL 0.17-0.41 [facility] ([facility], ) Imfzh-2-Bnnnvidnr 0.75 GM/DL 0.42-0.99 [facility] ([facility], ) Yzxh-8-Fyveqefke 0.42 GM/DL 0.19-0.55 [facility] ([facility], ) Nvzr-6-Cqorhpaqo 0.40 GM/DL 0.28-0.60 [facility] ([facility]) Gamma Globulins 1.04 GM/DL 0.65-1.58 [facility] ([facility]) Total Protein 7.3 GM/DL 6.4-8.2 [facility] ([facility], ) Spep Interpretation Laboratory test result [facility] [facility]) NO M-SPIKE(S)NOTED. Laboratory test finding (navigational concept) Laboratory test result [facility] ([facility]) REV'D BY Anna KUMAR ID Date Data Source [id number] 04/07/2021 04:34:00 PM EDT [facility] ([facility]) Name Value Range Interpretation Code Description Data Sandra rce(s) Supporting Document(s) Hemoglobin A1c 11.3 % [facility] ([facility]) <content>REFERENCE RANGES:</content><br/ ><content></content>
<content><=5.6% NORMAL</content>
<content>5.7-6.4% SUGGESTS IMPAIRED GLUCOSE METABOLISM/PREDIABETIC</content>
<content>>= 6.5% ABNORMAL</content>
<content></content> Estimated Average Glucose 278 mg/dL 60-110 [facility] ([facility]) ID Date Data Source [id number] 04/07/2021 04:34:00 PM EDT [facility]) Name Value Range Interpretation Code Description Data Sandra rce(s) Supporting Document(s) antinuclear antibodies direct negative negative Antinu clear Antibodies Direct [facility]) ID Date Data Source [id number] 04/07/2021 04:34:00 PM EDT [facility]) Name Value Range Interpretation Code Description Data Sandra rce(s) Supporting Document(s) vitamin B6,pyridoxal phosphate 13.4 ug/L 5.3-46.7 Vitamin B6,Pyridoxal Phosphate [facility]) ID Date Data Source [id number] 04/07/2021 04:34:00 PM EDT [facility]) Name Value Range Interpretation Code Description Data Sandra rce(s) Supporting Document(s) vitamin B1 level whole blood 134.8 nmol/L 66.5-200.0 Vitamin B1 Level Whole Blood [facility] ([facility]) ID Date Data Source [id number] 04/07/2021 04:34:00 PM [facility] Name Value Range Interpretation Code Description Data Sandra rce(s) Supporting Document(s) vitamin E(alpha tocopherol) 6.2 mg/L 7.0-25.1 Below low nor mal Vitamin E(alpha Tocopherol) [facility] ([facility]) vitamin E(gamma tocopherol) 0.7 mg/L 0.5-5.5 Vitamin E(gamma Tocopherol) [facility] ([facility]) ID Date Data Source [id number] 04/07/2021 04:34:00 PM EDT [facility]) Name Value Range Interpretation Code Description Data Sandra rce(s) Supporting Document(s) rheumatoid factor quant < 10.0 <15.0 Rheumatoid F actor Quant [facility] ([facility]) ID Date Data Source [id number] 04/07/2021 04:34:00 PM EDT [facility]) Name Value Range Interpretation Code Description Data Sandra rce(s) Supporting Document(s) vitamin B12 level 493 pg/mL [facility] folate 17.7 NG/mL Folate [facility] ([facility]) ID Date Data Source [id number] 04/07/2021 04:34:00 PM EDT [facility]) Name Value Range Interpretation Code Description Data Sandra rce(s) Supporting Document(s) qyrph-5-dgwoupzr % 3.4 % 2.9-4.9 Hjpch-6-Bgahldje % [facility] ([facility]) albumin % 60.8 % 55.8-66.1 Albumin % [facility] ([facility]) ztmt-9-kalnmejvb % 5.7 % 3.2-6.5 Xnaj-7-Fqqemiata % [facility] ([facility]) pjyn-7-eknfqnwzz % 5.5 % 4.7-7.2 Jlsy-9-Xadzohwvq % [facility] ([facility]) hgvoh-7-wqwyomhmh % 10.3 % 7.1-11.8 Hlcis-3-Pouzkmsd s % [facility] ([facility]) albumin 4.44 gm/dL 3.29-5.55 Albumin [facility] ([facility]) danmm-0-vpxgxtlez 0.25 gm/dL 0.17-0.41 Dboyv-4-Fxrrqnzym [facility] ([facility]) gamma globulin % 14.3 % 11.1-18.8 Gamma Globulin % AT [facility]) pypq-5-nozmkkvst 0.42 gm/dL 0.19-0.55 Sjdp-2-Xigygwlsy AT [facility]) dmzj-3-ixfihruow 0.40 gm/dL 0.28-0.60 Jlnu-7-Ryhayrjtj AT [facility] ([facility]) yckkf-4-vbhipoeoe 0.75 gm/dL 0.42-0.99 Iblky-0-Fnutrgaqt [facility] ([facility]) gamma globulins 1.04 gm/dL 0.65-1.58 Gamma Globulins AT[facility] ([facility]) spep interpretation see comment Spep Interpreta tion [facility] ([facility]) total protein 7.3 gm/dL 6.4-8.2 Total Protein [facility] ( [facility]) spep pathologist review rev'd by Anna kumar Spep Pathologist Review [facility] ([facility]) ID Date Data Source [id number] 04/07/2021 04:34:00 PM EDT [facility] ([facility]) Name Value Range Interpretation Code Description Data Sandra rce(s) Supporting Document(s) PTT lupus type anticoag screen 0-1.2 PTT L upus Type Anticoag Screen [facility] ([facility]) ID Date Data Source [id number] 04/07/2021 04:34:00 PM EDT [facility] ([facility]) Name Value Range Interpretation Code Description Data Sandra rce(s) Supporting Document(s) erythrocyte sedimentation rate 3 mm/HR 0-20 Eryth rocyte Sedimentation Rate [facility] ([facility]) ID Date Data Source [id number] 04/07/2021 04:34:00 PM EDT [facility] ([facility]) Name Value Range Interpretation Code Description Data Sandra rce(s) Supporting Document(s) estimated average glucose 278 mg/dL 60-110 Above high norm al Estimated Average Glucose [facility] ([facility]) Hemoglobin A1c/Hemoglobin.total in Blood 11.3 % Hemoglobin a1C [facility]) ID Date Data Source [id number] 04/07/2021 04:34:00 PM EDT [facility] ([facility], ) Name Value Range Interpretation Code Description Data Sandra rce(s) Supporting Document(s) PTT Lupus Type Anticoag Screen 0.8 0-1.2 [facility] ([facility], ) RESULT IS LESS [...] a specific inhibitor. ID Date Data Source [id number] 04/07/2021 04:34:00 PM EDT [facility] ([facility], ) Name Value Range Interpretation Code Description Data Sandra rce(s) Supporting Document(s) Erythrocyte sedimentation rate by 2H Westergren method 3 mm/hr 0-2 0 [facility] ([facility], ) ID Date Data Source [id number] 03/10/2021 08:51:00 AM EDT [facility] ([facility]) Name Value Range Interpretation Code Description Data Sandra rce(s) Supporting Document(s) Hemoglobin A1c/Hemoglobin.total in Blood 13.2 % Abnormal (applies to non- numeric results) Hba1C [facility] ([facility]) ID Date Data Source [id number] 03/10/2021 08:51:00 AM EDT [facility]) Name Value Range Interpretation Code Description Data Sandra rce(s) Supporting Document(s) Hemoglobin A1c/Hemoglobin.total in Blood 13.2 % Abnormal (applies to non- numeric results) Hba1C [facility] ([facility]) ID Date Data Source [id number] 03/10/2021 08:51:00 AM EDT [facility]) Name Value Range Interpretation Code Description Data Sandra rce(s) Supporting Document(s) Hemoglobin A1c/Hemoglobin.total in Blood 13.2 % Abnormal (applies to non- numeric results) Hba1C [facility] ([facility]) ID Date Data Source [id number] 03/10/2021 08:51:00 AM EDT [facility]) Name Value Range Interpretation Code Description Data Sandra rce(s) Supporting Document(s) Hemoglobin A1c/Hemoglobin.total in Blood 13.2 % Abnormal (applies to non- numeric results) Hba1C [facility] ([facility]) ID Date Data Source [id number] 03/10/2021 08:51:00 AM EDT [facility]) Name Value Range Interpretation Code Description Data Sandra rce(s) Supporting Document(s) Hemoglobin A1c/Hemoglobin.total in Blood 13.2 % Abnormal (applies to non- numeric results) Hba1C [facility] ([facility]) ID Date Data Source [id number] 03/10/2021 08:51:00 AM EDT [facility]) Name Value Range Interpretation Code Description Data Sandra rce(s) Supporting Document(s) Hemoglobin A1c/Hemoglobin.total in Blood 13.2 % Abnormal (applies to non- numeric results) Hba1C [facility] ([facility]) ID Date Data Source [id number] 03/10/2021 08:51:00 AM EDT [facility] ([facility]) Name Value Range Interpretation Code Description Data Sandra rce(s) Supporting Document(s) Hemoglobin A1c/Hemoglobin.total in Blood 13.2 % Abnormal (applies to non- numeric results) Hba1C [facility] ([facility]) ID Date Data Source [id number] 03/09/2021 08:39:00 AM EDT [facility] ([facility]) Name Value Range Interpretation Code Description Data Sandra rce(s) Supporting Document(s) jesse/creat ratio 66.9 mcg/mg 0.0-30.0 Above high normal Jesse/creat Ra susy [facility] ([facility]) malb urine siemens 35.3 mg/L Malb Urine Siemen s [facility] ([facility]) creatinine, urine 52.7 mg/dL Creatinine, Urine [facility] ([facility]) ID Date Data Source [id number] 03/09/2021 08:39:00 AM EDT [facility] ([facility]) Name Value Range Interpretation Code Description Data Sandra rce(s) Supporting Document(s) cholesterol level 145 mg/dL <200 Cholesterol Level [facility] ([facility]) triglycerides level 176 mg/dL <150 Above high normal Triglycer ides Level [facility] ([facility]) non-HDL-C 98 mg/dL Non-hdl-c [facility] ([facility]) Cholesterol in LDL [Mass/volume] in Serum or Plasma 63 mg/dL <1 00 LDL Cholesterol [facility] ([facility]) HDL cholesterol 47 mg/dL >40 HDL Cholesterol ATHE NA ([facility]) cholesterol risk ratio <5 Cholesterol R isk Ratio [facility] ([facility]) ID Date Data Source [id number] 03/09/2021 08:39:00 AM EDT [facility] ([facility]) Name Value Range Interpretation Code Description Data Sandra rce(s) Supporting Document(s) blood urea nitrogen 15 mg/dL 7-18 Blood Urea Nitro gen [facility] ([facility]) glucose, fasting 326 mg/dL 70-100 Above high normal Glucose, Fas ting [facility] ([facility]) creatinine for GFR 1.04 mg/dL 0.70-1.30 Creatinine for GF R [facility] ([facility]) glomerular filtration rate > 60.0 >56 Glomerula r Filtration Rate [facility] ([facility]) sodium level 137 mEq/L 136-145 Sodium Level [facility] potassium serum 4.3 mEq/L 3.5-5.1 Potassium Serum ATHE NA ([facility]) chloride level 102 mEq/L 98-107 Chloride Level [facility] ([facility]) anion gap 4 mEq/L 8-16 Below low normal Anion Gap [facility] ( [facility]) carbon dioxide level 31 mEq/L 21-32 Carbon Dioxide Level [facility] ([facility]) ALT/SGPT 29 U/L 12-78 ALT/SGPT [facility] ([facility]) AST/SGOT 11 U/L 7-37 AST/SGOT [facility] ([facility]) calcium level 9.3 mg/dL 8.5-10.1 Calcium Level [facility] ( [facility]) alkaline phosphatase 74 U/L 45-117 Alkaline Phosph atase [facility] ([facility]) total protein 7.9 gm/dL 6.4-8.2 Total Protein [facility] ( [facility]) bilirubin,total 1.1 mg/dL 0.2-1.0 Above high normal Bilirubin,tot al [facility] ([facility]) albumin 4.2 gm/dL 3.2-5.2 Albumin [facility] ([facility]) albumin/globulin ratio Albumin/globu jose l Ratio [facility] ([facility]) ID Date Data Source [id number] 03/09/2021 08:39:00 AM EDT [facility] ([facility]) Name Value Range Interpretation Code Description Data Sandra rce(s) Supporting Document(s) white blood count 6.3 10 4.0-10.0 White Blood Count [facility] ([facility]) red blood count 5.76 10 4.30-6.10 Red Blood Count ATHE NA ([facility]) mean corpuscular volume 90.1 fL 80.0-96.0 Mean Corpusc ular Volume [facility] ([facility]) hemoglobin 18.4 g/dL 13.5-17.5 Above high normal Hemoglobin [facility] ([facility]) hematocrit 51.9 % 42.0-52.0 Hematocrit [facility] ([facility]) mean corpuscular HGB conc 35.5 g/dL 32.0-36.5 Mean Corpu scular HGB Conc [facility] ([facility]) mean corpuscular hemoglobin 31.9 pg 27.0-33.0 Mean Cor puscular Hemoglobin [facility] ([facility]) red cell distribution width 12.7 % 11.5-14.5 Red Cell Distribution Width [facility] ([facility]) neutrophils % 59.4 % 36.0-66.0 Neutrophils % [facility] ( [facility]) platelet count, automated 171 10 150-450 Platelet C ount, Automated [facility] ([facility]) lymph % 28.3 % 24.0-44.0 Lymph % [facility] ([facility]) eos % 1.8 % 0.0-3.0 Eos % [facility] ([facility]) mono % 9.4 % 2.0-8.0 Above high normal Ellis % [facility] ([facility]) baso % 0.5 % 0.0-1.0 Baso % [facility] ([facility]) nucleated red blood cell % 0.0 % 0-0 Nucleated Red Blood Cell % [facility] ([facility]) immature granulocyte % 0.6 % 0-3.0 Immature Gran ulocyte % [facility] ([facility]) lymph # 1.8 10 1.5-5.0 Lymph # [facility] ([facility]) neutrophils # 3.7 10 1.5-8.5 Neutrophils # [facility] ( [facility]) mono # 0.6 10 0.0-0.8 Ellis # [facility] ([facility]) baso # 0.0 10 0.0-0.2 Baso # [facility] ([facility]) eos # 0.1 10 0.0-0.5 Eos # [facility] ([facility]) ID Date Data Source [id number] 03/09/2021 08:39:00 AM EDT [facility] ([facility]) Name Value Range Interpretation Code Description Data Sandra rce(s) Supporting Document(s) creatinine, urine 52.7 mg/dL Creatinine, Urine [facility] ([facility]) malb urine siemens 35.3 mg/L Malb Urine Siemen s [facility] ([facility]) jesse/creat ratio 66.9 mcg/mg 0.0-30.0 Above high normal Jesse/creat Ra susy [facility] ([facility]) ID Date Data Source [id number] 03/09/2021 08:39:00 AM EDT [facility] ([facility]) Name Value Range Interpretation Code Description Data Sandra rce(s) Supporting Document(s) cholesterol level 145 mg/dL <200 Cholesterol Level [facility] ([facility]) triglycerides level 176 mg/dL <150 Above high normal Triglycer ides Level [facility] ([facility]) HDL cholesterol 47 mg/dL >40 HDL Cholesterol ATHE NA ([facility]) cholesterol risk ratio <5 Cholesterol R isk Ratio [facility] ([facility]) non-HDL-C 98 mg/dL Non-hdl-c [facility] ([facility]) Cholesterol in LDL [Mass/volume] in Serum or Plasma 63 mg/dL <1 00 LDL Cholesterol [facility] ([facility]) ID Date Data Source [id number] 03/09/2021 08:39:00 AM EDT [facility] ([facility]) Name Value Range Interpretation Code Description Data Sandra rce(s) Supporting Document(s) glucose, fasting 326 mg/dL 70-100 Above high normal Glucose, Fas ting [facility] ([facility]) blood urea nitrogen 15 mg/dL 7-18 Blood Urea Nitro gen [facility] ([facility]) creatinine for GFR 1.04 mg/dL 0.70-1.30 Creatinine for GF R [facility] ([facility]) glomerular filtration rate > 60.0 >56 Glomerula r Filtration Rate [facility] ([facility]) potassium serum 4.3 mEq/L 3.5-5.1 Potassium Serum ATH NA ([facility]) sodium level 137 mEq/L 136-145 Sodium Level [facility] ([facility]) anion gap 4 mEq/L 8-16 Below low normal Anion Gap [facility] ( [facility]) chloride level 102 mEq/L 98-107 Chloride Level [facility] ([facility]) carbon dioxide level 31 mEq/L 21-32 Carbon Dioxide Level [facility] ([facility]) ALT/SGPT 29 U/L 12-78 ALT/SGPT [facility] ([facility]) AST/SGOT 11 U/L 7-37 AST/SGOT [facility] ([facility]) calcium level 9.3 mg/dL 8.5-10.1 Calcium Level [facility] ( [facility]) alkaline phosphatase 74 U/L 45-117 Alkaline Phosph atase [facility] ([facility]) bilirubin,total 1.1 mg/dL 0.2-1.0 Above high normal Bilirubin,tot al [facility] ([facility]) total protein 7.9 gm/dL 6.4-8.2 Total Protein [facility] ( [facility]) albumin 4.2 gm/dL 3.2-5.2 Albumin [facility] ([facility]) albumin/globulin ratio Albumin/globu jose l Ratio [facility] ([facility]) ID Date Data Source [id number] 03/09/2021 08:39:00 AM EDT [facility] ([facility]) Name Value Range Interpretation Code Description Data Sandra rce(s) Supporting Document(s) white blood count 6.3 10 4.0-10.0 White Blood Count [facility] ([facility]) red blood count 5.76 10 4.30-6.10 Red Blood Count ATHE NA ([facility]) hemoglobin 18.4 g/dL 13.5-17.5 Above high normal Hemoglobin [facility] ([facility]) mean corpuscular volume 90.1 fL 80.0-96.0 Mean Corpusc ular Volume [facility] ([facility]) hematocrit 51.9 % 42.0-52.0 Hematocrit [facility] ([facility]) red cell distribution width 12.7 % 11.5-14.5 Red Cell Distribution Width [facility] ([facility]) mean corpuscular hemoglobin 31.9 pg 27.0-33.0 Mean Cor puscular Hemoglobin [facility] ([facility]) mean corpuscular HGB conc 35.5 g/dL 32.0-36.5 Mean Corpu scular HGB Conc [facility] ([facility]) neutrophils % 59.4 % 36.0-66.0 Neutrophils % [facility] ( [facility]) platelet count, automated 171 10 150-450 Platelet C ount, Automated [facility] ([facility]) mono % 9.4 % 2.0-8.0 Above high normal Ellis % [facility] ([facility]) eos % 1.8 % 0.0-3.0 Eos % [facility] ([facility]) lymph % 28.3 % 24.0-44.0 Lymph % [facility] ([facility]) immature granulocyte % 0.6 % 0-3.0 Immature Gran ulocyte % [facility] ([facility]) baso % 0.5 % 0.0-1.0 Baso % [facility] ([facility]) nucleated red blood cell % 0.0 % 0-0 Nucleated Red Blood Cell % [facility] ([facility]) neutrophils # 3.7 10 1.5-8.5 Neutrophils # [facility] ( [facility]) mono # 0.6 10 0.0-0.8 Ellis # [facility] ([facility]) lymph # 1.8 10 1.5-5.0 Lymph # [facility] ([facility]) baso # 0.0 10 0.0-0.2 Baso # [facility] ([facility]) eos # 0.1 10 0.0-0.5 Eos # [facility] ([facility]) ID Date Data Source [id number] 03/09/2021 08:39:00 AM EDT [facility] ([facility]) Name Value Range Interpretation Code Description Data Sandra rce(s) Supporting Document(s) creatinine, urine 52.7 mg/dL Creatinine, Urine [facility] ([facility]) jesse/creat ratio 66.9 mcg/mg 0.0-30.0 Above high normal Jesse/creat Ra susy [facility] ([facility]) malb urine siemens 35.3 mg/L Malb Urine Siemen s [facility] ([facility]) ID Date Data Source [id number] 03/09/2021 08:39:00 AM EDT [facility] ([facility]) Name Value Range Interpretation Code Description Data Sandra rce(s) Supporting Document(s) triglycerides level 176 mg/dL <150 Above high normal Triglycer ides Level [facility] ([facility]) Cholesterol in LDL [Mass/volume] in Serum or Plasma 63 mg/dL <1 00 LDL Cholesterol [facility] ([facility]) cholesterol level 145 mg/dL <200 Cholesterol Level [facility] ([facility]) HDL cholesterol 47 mg/dL >40 HDL Cholesterol ATHE NA ([facility]) non-HDL-C 98 mg/dL Non-hdl-c [facility] ([facility]) cholesterol risk ratio <5 Cholesterol R isk Ratio [facility] ([facility]) ID Date Data Source [id number] 03/09/2021 08:39:00 AM EDT [facility] ([facility]) Name Value Range Interpretation Code Description Data Sandra rce(s) Supporting Document(s) glucose, fasting 326 mg/dL 70-100 Above high normal Glucose, Fas ting [facility] ([facility]) creatinine for GFR 1.04 mg/dL 0.70-1.30 Creatinine for GF R [facility] ([facility]) blood urea nitrogen 15 mg/dL 7-18 Blood Urea Nitro gen [facility] ([facility]) potassium serum 4.3 mEq/L 3.5-5.1 Potassium Serum ATHE NA ([facility]) chloride level 102 mEq/L 98-107 Chloride Level [facility] ([facility]) glomerular filtration rate > 60.0 >56 Glomerula r Filtration Rate [facility] ([facility]) sodium level 137 mEq/L 136-145 Sodium Level [facility] ([facility]) anion gap 4 mEq/L 8-16 Below low normal Anion Gap [facility] ( [facility]) calcium level 9.3 mg/dL 8.5-10.1 Calcium Level [facility] ( [facility]) carbon dioxide level 31 mEq/L 21-32 Carbon Dioxide Level [facility] ([facility]) ALT/SGPT 29 U/L 12-78 ALT/SGPT [facility] ([facility]) AST/SGOT 11 U/L 7-37 AST/SGOT [facility] ([facility]) alkaline phosphatase 74 U/L 45-117 Alkaline Phosph atase [facility] ([facility]) bilirubin,total 1.1 mg/dL 0.2-1.0 Above high normal Bilirubin,tot al [facility] ([facility]) albumin 4.2 gm/dL 3.2-5.2 Albumin [facility] ([facility]) albumin/globulin ratio Albumin/globu jose l Ratio [facility] ([facility]) total protein 7.9 gm/dL 6.4-8.2 Total Protein [facility] ( [facility]) ID Date Data Source [id number] 03/09/2021 08:39:00 AM EDT [facility]) Name Value Range Interpretation Code Description Data Sandra rce(s) Supporting Document(s) white blood count 6.3 10 4.0-10.0 White Blood Count [facility] ([facility]) hemoglobin 18.4 g/dL 13.5-17.5 Above high normal Hemoglobin [facility] ([facility]) red blood count 5.76 10 4.30-6.10 Red Blood Count ATHE NA ([facility]) hematocrit 51.9 % 42.0-52.0 Hematocrit [facility] ([facility]) mean corpuscular volume 90.1 fL 80.0-96.0 Mean Corpusc ular Volume [facility] ([facility]) mean corpuscular hemoglobin 31.9 pg 27.0-33.0 Mean Cor puscular Hemoglobin [facility] ([facility]) mean corpuscular HGB conc 35.5 g/dL 32.0-36.5 Mean Corpu scular HGB Conc [facility] ([facility]) red cell distribution width 12.7 % 11.5-14.5 Red Cell Distribution Width [facility] ([facility]) platelet count, automated 171 10 150-450 Platelet C ount, Automated [facility] ([facility]) neutrophils % 59.4 % 36.0-66.0 Neutrophils % [facility] ( [facility]) mono % 9.4 % 2.0-8.0 Above high normal Ellis % [facility] ([facility]) lymph % 28.3 % 24.0-44.0 Lymph % [facility] ([facility]) eos % 1.8 % 0.0-3.0 Eos % [facility] ([facility]) baso % 0.5 % 0.0-1.0 Baso % [facility] ([facility]) immature granulocyte % 0.6 % 0-3.0 Immature Gran ulocyte % [facility] ([facility]) nucleated red blood cell % 0.0 % 0-0 Nucleated Red Blood Cell % [facility] ([facility]) eos # 0.1 10 0.0-0.5 Eos # [facility] ([facility]) mono # 0.6 10 0.0-0.8 Ellis # [facility] ([facility]) lymph # 1.8 10 1.5-5.0 Lymph # [facility] ([facility]) neutrophils # 3.7 10 1.5-8.5 Neutrophils # [facility] ( [facility]) baso # 0.0 10 0.0-0.2 Baso # [facility] ([facility]) ID Date Data Source [id number] 03/09/2021 08:39:00 AM EDT [facility] ([facility]) Name Value Range Interpretation Code Description Data Sandra rce(s) Supporting Document(s) malb urine siemens 35.3 mg/L Malb Urine Siemen s [facility] ([facility]) creatinine, urine 52.7 mg/dL Creatinine, Urine [facility] ([facility]) jesse/creat ratio 66.9 mcg/mg 0.0-30.0 Above high normal Jesse/creat Ra susy [facility] ([facility]) ID Date Data Source [id number] 03/09/2021 08:39:00 AM EDT [facility] ([facility]) Name Value Range Interpretation Code Description Data Sandra rce(s) Supporting Document(s) Cholesterol in LDL [Mass/volume] in Serum or Plasma 63 mg/dL <1 00 LDL Cholesterol [facility] ([facility]) HDL cholesterol 47 mg/dL >40 HDL Cholesterol ATHE NA ([facility]) triglycerides level 176 mg/dL <150 Above high normal Triglycer ides Level V[facility] ([facility]) cholesterol level 145 mg/dL <200 Cholesterol Level V[facility] ([facility]) cholesterol risk ratio <5 Cholesterol R isk Ratio [facility] ([facility]) non-HDL-C 98 mg/dL Non-hdl-c [facility] ([facility]) ID Date Data Source [id number] 03/09/2021 08:39:00 AM EDT [facility]) Name Value Range Interpretation Code Description Data Sandra rce(s) Supporting Document(s) glomerular filtration rate > 60.0 >56 Glomerula r Filtration Rate V[facility] ([facility]) glucose, fasting 326 mg/dL 70-100 Above high normal Glucose, Fas ting [facility] ([facility]) blood urea nitrogen 15 mg/dL 7-18 Blood Urea Nitro gen [facility] ([facility]) creatinine for GFR 1.04 mg/dL 0.70-1.30 Creatinine for GF R V[facility] ([facility]) potassium serum 4.3 mEq/L 3.5-5.1 Potassium Serum ATHE ([facility]) sodium level 137 mEq/L 136-145 Sodium Level [facility] ([facility] chloride level 102 mEq/L 98-107 Chloride Level V[facility] ([facility]) carbon dioxide level 31 mEq/L 21-32 Carbon Dioxide Level [facility] ([facility]) AST/SGOT 11 U/L 7-37 AST/SGOT [facility] ([facility]) anion gap 4 mEq/L 8-16 Below low normal Anion Gap [facility] ( [facility]) calcium level 9.3 mg/dL 8.5-10.1 Calcium Level [facility] ( [facility]) alkaline phosphatase 74 U/L 45-117 Alkaline Phosph atase [facility] ([facility]) ALT/SGPT 29 U/L 12-78 ALT/SGPT [facility] ([facility]) bilirubin,total 1.1 mg/dL 0.2-1.0 Above high normal Bilirubin,tot al [facility] ([facility]) total protein 7.9 gm/dL 6.4-8.2 Total Protein [facility] ( [facility]) albumin 4.2 gm/dL 3.2-5.2 Albumin [facility] ([facility]) albumin/globulin ratio Albumin/globu jose l Ratio [facility] ([facility]) ID Date Data Source [id number] 03/09/2021 08:39:00 AM EDT [facility] ([facility]) Name Value Range Interpretation Code Description Data Sandra rce(s) Supporting Document(s) red blood count 5.76 10 4.30-6.10 Red Blood Count ATHE ([facility]) white blood count 6.3 10 4.0-10.0 White Blood Count [facility] ([facility]) hemoglobin 18.4 g/dL 13.5-17.5 Above high normal Hemoglobin [facility] ([facility]) mean corpuscular volume 90.1 fL 80.0-96.0 Mean Corpusc ular Volume [facility] ([facility]) hematocrit 51.9 % 42.0-52.0 Hematocrit [facility] ([facility]) mean corpuscular hemoglobin 31.9 pg 27.0-33.0 Mean Cor puscular Hemoglobin [facility] ([facility]) mean corpuscular HGB conc 35.5 g/dL 32.0-36.5 Mean Corpu scular HGB Conc [facility] ([facility]) red cell distribution width 12.7 % 11.5-14.5 Red Cell Distribution Width [facility] ([facility]) lymph % 28.3 % 24.0-44.0 Lymph % [facility] ([facility]) mono % 9.4 % 2.0-8.0 Above high normal Ellis % [facility] ([facility]) platelet count, automated 171 10 150-450 Platelet C ount, Automated [facility] ([facility]) neutrophils % 59.4 % 36.0-66.0 Neutrophils % [facility] ( [facility]) immature granulocyte % 0.6 % 0-3.0 Immature Gran ulocyte % [facility] ([facility]) baso % 0.5 % 0.0-1.0 Baso % [facility] ([facility]) eos % 1.8 % 0.0-3.0 Eos % [facility] ([facility]) lymph # 1.8 10 1.5-5.0 Lymph # [facility] ([facility]) mono # 0.6 10 0.0-0.8 Ellis # [facility] ([facility]) nucleated red blood cell % 0.0 % 0-0 Nucleated Red Blood Cell % [facility] ([facility]) neutrophils # 3.7 10 1.5-8.5 Neutrophils # [facility] ( [facility]) eos # 0.1 10 0.0-0.5 Eos # [facility] ([facility]) baso # 0.0 10 0.0-0.2 Baso # [facility] ([facility]) ID Date Data Source [id number] 03/09/2021 08:39:00 AM EDT [facility] ([facility]) Name Value Range Interpretation Code Description Data Sandra rce(s) Supporting Document(s) creatinine, urine 52.7 mg/dL Creatinine, Urine [facility] ([facility]) malb urine siemens 35.3 mg/L Malb Urine Siemen s [facility] ([facility]) jesse/creat ratio 66.9 mcg/mg 0.0-30.0 Above high normal Jesse/creat Ra susy [facility] ([facility]) ID Date Data Source [id number] 03/09/2021 08:39:00 AM EDT [facility] ([facility]) Name Value Range Interpretation Code Description Data Sandra rce(s) Supporting Document(s) cholesterol level 145 mg/dL <200 Cholesterol Level [facility] ([facility]) HDL cholesterol 47 mg/dL >40 HDL Cholesterol ATHE ([facility]) triglycerides level 176 mg/dL <150 Above high normal Triglycer ides Level [facility] ([facility]) non-HDL-C 98 mg/dL Non-hdl-c [facility] ([facility]) cholesterol risk ratio <5 Cholesterol R isk Ratio [facility] ([facility]) Cholesterol in LDL [Mass/volume] in Serum or Plasma 63 mg/dL <1 00 LDL Cholesterol [facility] ([facility]) ID Date Data Source [id number] 03/09/2021 08:39:00 AM EDT [facility] ([facility]) Name Value Range Interpretation Code Description Data Sandra rce(s) Supporting Document(s) blood urea nitrogen 15 mg/dL 7-18 Blood Urea Nitro gen [facility] ([facility]) glomerular filtration rate > 60.0 >56 Glomerula r Filtration Rate [facility] ([facility]) glucose, fasting 326 mg/dL 70-100 Above high normal Glucose, Fas ting [facility] ([facility]) creatinine for GFR 1.04 mg/dL 0.70-1.30 Creatinine for GF R [facility] ([facility]) sodium level 137 mEq/L 136-145 Sodium Level [facility] ([facility] potassium serum 4.3 mEq/L 3.5-5.1 Potassium Serum ATH NA ([facility]) chloride level 102 mEq/L 98-107 Chloride Level [facility] ([facility]) carbon dioxide level 31 mEq/L 21-32 Carbon Dioxide Level [facility] ([facility]) calcium level 9.3 mg/dL 8.5-10.1 Calcium Level [facility] ( [facility]) AST/SGOT 11 U/L 7-37 AST/SGOT [facility] ([facility]) ALT/SGPT 29 U/L 12-78 ALT/SGPT [facility] ([facility]) anion gap 4 mEq/L 8-16 Below low normal Anion Gap [facility] ( [facility]) total protein 7.9 gm/dL 6.4-8.2 Total Protein [facility] ( [facility]) albumin 4.2 gm/dL 3.2-5.2 Albumin [facility] ([facility]) alkaline phosphatase 74 U/L 45-117 Alkaline Phosph atase [facility] ([facility]) bilirubin,total 1.1 mg/dL 0.2-1.0 Above high normal Bilirubin,tot al [facility] ([facility]) albumin/globulin ratio Albumin/globu joes l Ratio [facility] ([facility]) ID Date Data Source [id number] 03/09/2021 08:39:00 AM EDT [facility] ([facility]) Name Value Range Interpretation Code Description Data Sandra rce(s) Supporting Document(s) white blood count 6.3 10 4.0-10.0 White Blood Count [facility] ([facility]) hemoglobin 18.4 g/dL 13.5-17.5 Above high normal Hemoglobin [facility] ([facility]) red blood count 5.76 10 4.30-6.10 Red Blood Count ATHE NA ([facility]) hematocrit 51.9 % 42.0-52.0 Hematocrit [facility] ([facility]) mean corpuscular hemoglobin 31.9 pg 27.0-33.0 Mean Cor puscular Hemoglobin [facility] ([facility]) mean corpuscular HGB conc 35.5 g/dL 32.0-36.5 Mean Corpu scular HGB Conc [facility] ([facility]) mean corpuscular volume 90.1 fL 80.0-96.0 Mean Corpusc ular Volume [facility] ([facility]) red cell distribution width 12.7 % 11.5-14.5 Red Cell Distribution Width [facility] ([facility]) platelet count, automated 171 10 150-450 Platelet C ount, Automated [facility] ([facility]) neutrophils % 59.4 % 36.0-66.0 Neutrophils % [facility]SA ( [facility]) baso % 0.5 % 0.0-1.0 Baso % [facility] ([facility]) lymph % 28.3 % 24.0-44.0 Lymph % [facility] ([facility]) eos % 1.8 % 0.0-3.0 Eos % [facility] ([facility]) mono % 9.4 % 2.0-8.0 Above high normal Ellis % [facility] ([facility]) neutrophils # 3.7 10 1.5-8.5 Neutrophils # [facility] ( [facility]) nucleated red blood cell % 0.0 % 0-0 Nucleated Red Blood Cell % [facility] ([facility]) immature granulocyte % 0.6 % 0-3.0 Immature Gran ulocyte % [facility] ([facility]) lymph # 1.8 10 1.5-5.0 Lymph # [facility] ([facility]) eos # 0.1 10 0.0-0.5 Eos # [facility] ([facility]) mono # 0.6 10 0.0-0.8 Ellis # [facility] ([facility]) baso # 0.0 10 0.0-0.2 Baso # [facility] ([facility]) ID Date Data Source [id number] 03/09/2021 08:39:00 AM EDT [facility] ([facility]) Name Value Range Interpretation Code Description Data Sandra rce(s) Supporting Document(s) malb urine siemens 35.3 mg/L Malb Urine Siemen s [facility] ([facility]) creatinine, urine 52.7 mg/dL Creatinine, Urine [facility] ([facility]) jesse/creat ratio 66.9 mcg/mg 0.0-30.0 Above high normal Jesse/creat Ra susy [facility] ([facility]) ID Date Data Source [id number] 03/09/2021 08:39:00 AM EDT [facility] ([facility]) Name Value Range Interpretation Code Description Data Sandra rce(s) Supporting Document(s) cholesterol level 145 mg/dL <200 Cholesterol Level [facility] ([facility]) triglycerides level 176 mg/dL <150 Above high normal Triglycer ides Level [facility] ([facility]) HDL cholesterol 47 mg/dL >40 HDL Cholesterol ATHE NA ([facility]) Cholesterol in LDL [Mass/volume] in Serum or Plasma 63 mg/dL <1 00 LDL Cholesterol [facility] ([facility]) cholesterol risk ratio <5 Cholesterol R isk Ratio [facility] ([facility]) non-HDL-C 98 mg/dL Non-hdl-c [facility] ([facility]) ID Date Data Source [id number] 03/09/2021 08:39:00 AM EDT [facility] ([facility]) Name Value Range Interpretation Code Description Data Sandra rce(s) Supporting Document(s) glucose, fasting 326 mg/dL 70-100 Above high normal Glucose, Fas ting [facility] ([facility]) blood urea nitrogen 15 mg/dL 7-18 Blood Urea Nitro gen [facility] ([facility]) creatinine for GFR 1.04 mg/dL 0.70-1.30 Creatinine for GF R [facility] ([facility]) potassium serum 4.3 mEq/L 3.5-5.1 Potassium Serum ATHE NA ([facility]) glomerular filtration rate > 60.0 >56 Glomerula r Filtration Rate [facility] ([facility]) chloride level 102 mEq/L 98-107 Chloride Level [facility] ([facility]) sodium level 137 mEq/L 136-145 Sodium Level [facility] ([facility]) calcium level 9.3 mg/dL 8.5-10.1 Calcium Level V[facility]SA ( [facility]) carbon dioxide level 31 mEq/L 21-32 Carbon Dioxide Level [facility] ([facility]) anion gap 4 mEq/L 8-16 Below low normal Anion Gap [facility] ( [facility]) alkaline phosphatase 74 U/L 45-117 Alkaline Phosph atase [facility] ([facility]) bilirubin,total 1.1 mg/dL 0.2-1.0 Above high normal Bilirubin,tot al [facility] ([facility]) AST/SGOT 11 U/L 7-37 AST/SGOT [facility] ([facility]) ALT/SGPT 29 U/L 12-78 ALT/SGPT [facility] ([facility]) albumin 4.2 gm/dL 3.2-5.2 Albumin [facility] ([facility]) total protein 7.9 gm/dL 6.4-8.2 Total Protein [facility] ( [facility]) albumin/globulin ratio Albumin/globu jose l Ratio [facility] ([facility]) ID Date Data Source [id number] 03/09/2021 08:39:00 AM EDT [facility] ([facility]) Name Value Range Interpretation Code Description Data Sandra rce(s) Supporting Document(s) white blood count 6.3 10 4.0-10.0 White Blood Count [facility] ([facility]) red blood count 5.76 10 4.30-6.10 Red Blood Count ATHE ([facility]) hemoglobin 18.4 g/dL 13.5-17.5 Above high normal Hemoglobin [facility] ([facility]) mean corpuscular HGB conc 35.5 g/dL 32.0-36.5 Mean Corpu scular HGB Conc [facility] ([facility]) hematocrit 51.9 % 42.0-52.0 Hematocrit [facility] ([facility]) mean corpuscular hemoglobin 31.9 pg 27.0-33.0 Mean Cor puscular Hemoglobin [facility] ([facility]) mean corpuscular volume 90.1 fL 80.0-96.0 Mean Corpusc ular Volume [facility] ([facility]) platelet count, automated 171 10 150-450 Platelet C ount, Automated [facility] ([facility]) red cell distribution width 12.7 % 11.5-14.5 Red Cell Distribution Width [facility] ([facility]) neutrophils % 59.4 % 36.0-66.0 Neutrophils % [facility] ( [facility]) mono % 9.4 % 2.0-8.0 Above high normal Ellis % [facility] ([facility]) lymph % 28.3 % 24.0-44.0 Lymph % [facility] ([facility]) eos % 1.8 % 0.0-3.0 Eos % [facility] ([facility]) immature granulocyte % 0.6 % 0-3.0 Immature Gran ulocyte % [facility] ([facility]) baso % 0.5 % 0.0-1.0 Baso % [facility] ([facility]) mono # 0.6 10 0.0-0.8 Ellis # [facility] ([facility]) lymph # 1.8 10 1.5-5.0 Lymph # [facility] ([facility]) nucleated red blood cell % 0.0 % 0-0 Nucleated Red Blood Cell % [facility] ([facility]) neutrophils # 3.7 10 1.5-8.5 Neutrophils # [facility]SA ( [facility]) baso # 0.0 10 0.0-0.2 Baso # [facility] ([facility]) eos # 0.1 10 0.0-0.5 Eos # [facility] ([facility]) ID Date Data Source [id number] 03/09/2021 08:39:00 AM EDT [facility] ([facility]) Name Value Range Interpretation Code Description Data Sandra rce(s) Supporting Document(s) creatinine, urine 52.7 mg/dL Creatinine, Urine [facility] ([facility]) jesse/creat ratio 66.9 mcg/mg 0.0-30.0 Above high normal Jesse/creat Ra susy [facility] ([facility]) malb urine siemens 35.3 mg/L Malb Urine Siemen s [facility] ([facility]) ID Date Data Source [id number] 03/09/2021 08:39:00 AM EDT [facility] ([facility]) Name Value Range Interpretation Code Description Data Sandra rce(s) Supporting Document(s) cholesterol level 145 mg/dL <200 Cholesterol Level [facility] ([facility]) triglycerides level 176 mg/dL <150 Above high normal Triglycer ides Level [facility] ([facility]) Cholesterol in LDL [Mass/volume] in Serum or Plasma 63 mg/dL <1 00 LDL Cholesterol [facility] ([facility]) non-HDL-C 98 mg/dL Non-hdl-c [facility] ([facility]) HDL cholesterol 47 mg/dL >40 HDL Cholesterol ATHE NA ([facility]) cholesterol risk ratio <5 Cholesterol R isk Ratio [facility] ([facility]) ID Date Data Source [id number] 03/09/2021 08:39:00 AM EDT [facility] ([facility]) Name Value Range Interpretation Code Description Data Sandra rce(s) Supporting Document(s) creatinine for GFR 1.04 mg/dL 0.70-1.30 Creatinine for GF R [facility] ([facility]) glomerular filtration rate > 60.0 >56 Glomerula r Filtration Rate [facility] ([facility]) glucose, fasting 326 mg/dL 70-100 Above high normal Glucose, Fas ting [facility] ([facility]) blood urea nitrogen 15 mg/dL 7-18 Blood Urea Nitro gen [facility] ([facility]) potassium serum 4.3 mEq/L 3.5-5.1 Potassium Serum ATHE NA ([facility]) sodium level 137 mEq/L 136-145 Sodium Level [facility] ([facility]) chloride level 102 mEq/L 98-107 Chloride Level [facility] ([facility]) anion gap 4 mEq/L 8-16 Below low normal Anion Gap [facility] ( [facility]) calcium level 9.3 mg/dL 8.5-10.1 Calcium Level V[facility]SA ( [facility]) carbon dioxide level 31 mEq/L 21-32 Carbon Dioxide Level [facility] ([facility]) bilirubin,total 1.1 mg/dL 0.2-1.0 Above high normal Bilirubin,tot al [facility] ([facility]) AST/SGOT 11 U/L 7-37 AST/SGOT [facility] ([facility]) alkaline phosphatase 74 U/L 45-117 Alkaline Phosph atase [facility] ([facility]) ALT/SGPT 29 U/L 12-78 ALT/SGPT [facility] ([facility]) total protein 7.9 gm/dL 6.4-8.2 Total Protein [facility] ( [facility]) albumin/globulin ratio Albumin/globu jose l Ratio [facility] ([facility]) albumin 4.2 gm/dL 3.2-5.2 Albumin [facility] ([facility]) ID Date Data Source [id number] 03/09/2021 08:39:00 AM EDT [facility] ([facility]) Name Value Range Interpretation Code Description Data Sandra rce(s) Supporting Document(s) white blood count 6.3 10 4.0-10.0 White Blood Count [facility] ([facility]) red blood count 5.76 10 4.30-6.10 Red Blood Count ATHE ([facility]) hemoglobin 18.4 g/dL 13.5-17.5 Above high normal Hemoglobin [facility] ([facility]) hematocrit 51.9 % 42.0-52.0 Hematocrit [facility] ([facility]) mean corpuscular HGB conc 35.5 g/dL 32.0-36.5 Mean Corpu scular HGB Conc [facility] ([facility]) mean corpuscular hemoglobin 31.9 pg 27.0-33.0 Mean Cor puscular Hemoglobin [facility] ([facility]) mean corpuscular volume 90.1 fL 80.0-96.0 Mean Corpusc ular Volume [facility] ([facility]) red cell distribution width 12.7 % 11.5-14.5 Red Cell Distribution Width [facility] ([facility]) platelet count, automated 171 10 150-450 Platelet C ount, Automated [facility] ([facility]) neutrophils % 59.4 % 36.0-66.0 Neutrophils % [facility] ( [facility]) mono % 9.4 % 2.0-8.0 Above high normal Ellis % [facility] ([facility]) lymph % 28.3 % 24.0-44.0 Lymph % [facility] ([facility]) eos % 1.8 % 0.0-3.0 Eos % [facility] ([facility]) baso % 0.5 % 0.0-1.0 Baso % [facility] ([facility]) immature granulocyte % 0.6 % 0-3.0 Immature Gran ulocyte % [facility] ([facility]) lymph # 1.8 10 1.5-5.0 Lymph # [facility] ([facility]) mono # 0.6 10 0.0-0.8 Ellis # [facility] ([facility]) neutrophils # 3.7 10 1.5-8.5 Neutrophils # [facility] ( [facility]) nucleated red blood cell % 0.0 % 0-0 Nucleated Red Blood Cell % [facility] ([facility]) baso # 0.0 10 0.0-0.2 Baso # [facility] ([facility]) eos # 0.1 10 0.0-0.5 Eos # [facility] ([facility]) ID Date Data Source [id number] 02/15/2021 08:58:00 AM EDT [facility] ([facility]) Name Value Range Interpretation Code Description Data Sandra rce(s) Supporting Document(s) sars-cov-2 negative negative Sars-cov-2 [facility]) ID Date Data Source [id number] 02/15/2021 08:58:00 AM EDT [facility]) Name Value Range Interpretation Code Description Data Sandra rce(s) Supporting Document(s) sars-cov-2 negative negative Sars-cov-2 [facility] ([facility]) ID Date Data Source [id number] 02/15/2021 08:58:00 AM EDT [facility]) Name Value Range Interpretation Code Description Data Sandra rce(s) Supporting Document(s) sars-cov-2 negative negative Sars-cov-2 [facility]) ID Date Data Source [id number] 02/15/2021 08:58:00 AM EDT [facility]) Name Value Range Interpretation Code Description Data Sandra rce(s) Supporting Document(s) sars-cov-2 negative negative Sars-cov-2 [facility] ([facility]) ID Date Data Source [id number] 02/15/2021 08:58:00 AM EDT [facility]) Name Value Range Interpretation Code Description Data Sandra rce(s) Supporting Document(s) sars-cov-2 negative negative Sars-cov-2 [facility] ([facility]) ID Date Data Source [id number] 02/15/2021 08:58:00 AM EDT [facility]) Name Value Range Interpretation Code Description Data Sandra rce(s) Supporting Document(s) sars-cov-2 negative negative Sars-cov-2 [facility]) ID Date Data Source [id number] 02/15/2021 08:58:00 AM EDT [facility] ([facility]) Name Value Range Interpretation Code Description Data Sandra rce(s) Supporting Document(s) sars-cov-2 negative negative Sars-cov-2 [facility] ([facility]) ID Date Data Source [id number] 02/15/2021 08:58:00 AM EDT [facility] ([facility]) Name Value Range Interpretation Code Description Data Sandra rce(s) Supporting Document(s) sars-cov-2 negative negative Sars-cov-2 [facility] ([facility]) ID Date Data Source [id number] 02/15/2021 08:58:00 AM EDT [facility]) Name Value Range Interpretation Code Description Data Sandra rce(s) Supporting Document(s) sars-cov-2 negative negative Sars-cov-2 [facility]) ID Date Data Source [id number] 02/15/2021 08:56:00 AM EDT [facility] Name Value Range Interpretation Code Description Data Sandra rce(s) Supporting Document(s) SARS coronavirus 2 RdRp gene [Presence] in Respiratory specimen by ABHINAV with probe detection Not detected [facility] This lab was ordered by [facility] and reported by [facility]. ID Date Data Source [id number] 09/28/2020 12:00:00 AM EST [facility]) Name Value Range Interpretation Code Description Data Sandra rce(s) Supporting Document(s) Hemoglobin A1c/Hemoglobin.total in Blood 11.4 % Above high normal Hba1C [facility]) ID Date Data Source [id number] 09/28/2020 12:00:00 AM EST [facility]) Name Value Range Interpretation Code Description Data Sandra rce(s) Supporting Document(s) Hemoglobin A1c/Hemoglobin.total in Blood 11.4 % Above high normal Hba1C [facility]) ID Date Data Source [id number] 09/28/2020 12:00:00 AM EST [facility] ([facility]) Name Value Range Interpretation Code Description Data Sandra rce(s) Supporting Document(s) Hemoglobin A1c/Hemoglobin.total in Blood 11.4 % Above high normal Hba1C [facility] ([facility]) ID Date Data Source [id number] 09/28/2020 12:00:00 AM EST [facility] ([facility]) Name Value Range Interpretation Code Description Data Sandra rce(s) Supporting Document(s) Hemoglobin A1c/Hemoglobin.total in Blood 11.4 % Above high normal Hba1C [facility] ([facility]) ID Date Data Source [id number] 09/28/2020 12:00:00 AM EST [facility] ([facility]) Name Value Range Interpretation Code Description Data Sandra rce(s) Supporting Document(s) Hemoglobin A1c/Hemoglobin.total in Blood 11.4 % Above high normal [facility]) ID Date Data Source [id number] 09/28/2020 12:00:00 AM [facility] Name Value Range Interpretation Code Description Data Sandra rce(s) Supporting Document(s) Hemoglobin A1c/Hemoglobin.total in Blood 11.4 % Above high normal Hba1[facility] YUMA ([facility]) ID Date Data Source [id number] 09/28/2020 12:00:00 AM EST VANESSA ([facility]) Name Value Range Interpretation Code Description Data Sandra rce(s) Supporting Document(s) Hemoglobin A1c/Hemoglobin.total in Blood 11.4 % Above high normal [facility]) ID Date Data Source [id number] 09/28/2020 12:00:00 AM [facility] Name Value Range Interpretation Code Description Data Sandra rce(s) Supporting Document(s) Hemoglobin A1c/Hemoglobin.total in Blood 11.4 % Above high normal [facility] YUMA ([facility]) ID Date Data Source [id number] 09/28/2020 12:00:00 AM EST YUMA ([facility]) Name Value Range Interpretation Code Description Data Sandra rce(s) Supporting Document(s) Hemoglobin A1c/Hemoglobin.total in Blood 11.4 % Above high normal [facility]UMA ([facility]) ID Date Data Source [id number] 09/28/2020 12:00:00 AM EST YUMA ([facility]) Name Value Range Interpretation Code Description Data Sandra rce(s) Supporting Document(s) Hemoglobin A1c/Hemoglobin.total in Blood 11.4 % Above high normal [facility] YUMA ([facility]) Procedure Social History Code Duration Value Status Description Data Source(s ) Smoking 06/28/2021 12:00:00 AM EDT Unknown if ever smoked comp leted Unknown if ever smoked [facility] ([facility]) Smoking 06/07/2021 12:00:00 AM EDT Unknown if ever smoked comp leted Unknown if ever smoked [facility] ([facility]) Vital Signs ID Date Data Source UNK Name Value Range Interpretation Code Description Data Source(s) Diastolic blood pressure 87 mm[Hg] 87 mm[Hg] [facility] Heart rate 100 /min 100 /min [facility] ([facility]) Oxygen saturation in Arterial blood by Pulse oximetry 96 % 96 % [facility] ([facility]) Body mass index (BMI) [Ratio] 24.3 kg/m2 24.3 k g/m2 [facility] ([facility]) Systolic blood pressure 117 mm[Hg] 117 mm[Hg] M EDENT ([facility]) Body weight 160.00 [lb_av] 160.00 [lb_av] MEDEN T ([facility]) Body weight 72.576 kg 72.576 kg [facility]) Body height 68 [in_i] 68 [in_i] MEDENT ([facility]) 5'8" Body surface area Derived from formula 1.86 m2 1.86 m2 MEDENT ([facility]) Body height 68 [in_i] 68 [in_i] VANESSA ([facility]) Diastolic blood pressure 87 mm[Hg] 87 mm[Hg] VANESSA ([facility]) Body mass index (BMI) [Ratio] 24.3 kg/m2 24.3 k g/m2 VANESSA ([facility]) Systolic blood pressure 127 mm[Hg] 127 mm[Hg] A THENA ([facility]) Body weight 2560 [oz_av] 2560 [oz_av] VANESSA ([facility]) Diastolic blood pressure 87 mm[Hg] 87 mm[Hg] VANESSA ([facility]) Body height 68 [in_i] 68 [in_i] VANESSA ([facility]) Body mass index (BMI) [Ratio] 24.3 kg/m2 24.3 k g/m2 VANESSA ([facility]) Systolic blood pressure 127 mm[Hg] 127 mm[Hg] A THENA ([facility]) Body weight 2560 [oz_av] 2560 [oz_av] VANESSA ([facility]) Body height 68 [in_i] 68 [in_i] VANESSA ([facility]) Body height 68 [in_i] 68 [in_i] VANESSA ([facility]) Body height 68 [in_i] 68 [in_i] VANESSA ([facility]) Diastolic blood pressure 81 mm[Hg] 81 mm[Hg] VANESSA ([facility]) Body height 68 [in_i] 68 [in_i] VANESSA ([facility]) Systolic blood pressure 145 mm[Hg] 145 mm[Hg] A THENA ([facility]) Diastolic blood pressure 81 mm[Hg] 81 mm[Hg] VANESSA ([facility]) Body height 68 [in_i] 68 [in_i] VANESSA ([facility]) Systolic blood pressure 145 mm[Hg] 145 mm[Hg] A THENA ([facility]) Diastolic blood pressure 81 mm[Hg] 81 mm[Hg] VANESSA ([facility]) Body height 68 [in_i] 68 [in_i] VANESSA ([facility]) Systolic blood pressure 145 mm[Hg] 145 mm[Hg] [facility] Diastolic blood pressure 81 mm[Hg] 81 mm[Hg] VANESSA ([facility]) Body height 68 [in_i] 68 [in_i] VANESSA ([facility]) Systolic blood pressure 145 mm[Hg] 145 mm[Hg] A THENA ([facility]) Body weight Measured 167.00 lbs Normal (applies to on-numeric results) 167.00 lbs [facility] ([facility]) Body height 68 [in_i] 68 [in_i] VANESSA ([facility]) Body height 68 [in_i] 68 [in_i] VANESSA ([facility]) Body height 68 [in_i] 68 [in_i] VANESSA ([facility]) Body height 68 [in_i] 68 [in_i] VANESSA ([facility]) Body height 68 [in_i] 68 [in_i] VANESSA ([facility]) Body temperature 98.5 [degF] 98.5 [degF] MEDENT ([facility]) Diastolic blood pressure 79 mm[Hg] 79 mm[Hg] VANESSA ([facility]) Body height 68 [in_i] 68 [in_i] VANESSA ([facility]) Body mass index (BMI) [Ratio] 25.8 kg/m2 25.8 k g/m2 VANESSA ([facility]) Systolic blood pressure 120 mm[Hg] 120 mm[Hg] A THENA ([facility]) Body weight 2720 [oz_av] 2720 [oz_av] VANESSA ([facility]) Systolic blood pressure 120 mm[Hg] 120 mm[Hg] [facility] Diastolic blood pressure 79 mm[Hg] 79 mm[Hg] VANESSA ([facility]) Body height 68 [in_i] 68 [in_i] VANESSA ([facility]) Body mass index (BMI) [Ratio] 25.8 kg/m2 25.8 k g/m2 VANESSA ([facility]) Body weight 2720 [oz_av] 2720 [oz_av] VANESSA ([facility]) Diastolic blood pressure 79 mm[Hg] 79 mm[Hg] VANESSA ([facility]) Systolic blood pressure 120 mm[Hg] 120 mm[Hg] A [facility] ([facility]) Body height 68 [in_i] 68 [in_i] VANESSA ([facility]) Body mass index (BMI) [Ratio] 25.8 kg/m2 25.8 k g/m2 VANESSA ([facility]) Body weight 2720 [oz_av] 2720 [oz_av] VANESSA ([facility]) Diastolic blood pressure 79 mm[Hg] 79 mm[Hg] VANESSA ([facility]) Body height 68 [in_i] 68 [in_i] VANESSA ([facility]) Body mass index (BMI) [Ratio] 25.8 kg/m2 25.8 k g/m2 VANESSA ([facility]) Systolic blood pressure 120 mm[Hg] 120 mm[Hg] A THENA ([facility]) Body weight 2720 [oz_av] 2720 [oz_av] VANESSA ([facility]) Diastolic blood pressure 79 mm[Hg] 79 mm[Hg] VANESSA ([facility]) Body height 68 [in_i] 68 [in_i] VANESSA ([facility]) Body mass index (BMI) [Ratio] 25.8 kg/m2 25.8 k g/m2 VANESSA ([facility]) Systolic blood pressure 120 mm[Hg] 120 mm[Hg] A [facility] ([facility]) Body weight 2720 [oz_av] 2720 [oz_av] VANESSA ([facility]) Diastolic blood pressure 79 mm[Hg] 79 mm[Hg] VANESSA ([facility]) Body height 68 [in_i] 68 [in_i] VANESSA ([facility]) Body mass index (BMI) [Ratio] 25.8 kg/m2 25.8 k g/m2 VANESSA ([facility]) Systolic blood pressure 120 mm[Hg] 120 mm[Hg] A THENA ([facility]) Body weight 2720 [oz_av] 2720 [oz_av] VANESSA ([facility]) Body height 68 [in_i] 68 [in_i] MEDENT ([facility] 5'8" Systolic blood pressure 124 mm[Hg] 124 mm[Hg] M EDENT ([facility] Body weight 160.00 [lb_av] 160.00 [lb_av] MEDEN T ([facility] Heart rate 71 /min 71 /min MED[facility] ([facility] Body mass index (BMI) [Ratio] 24.3 kg/m2 24.3 k g/m2 MED[facility] ([facility] Diastolic blood pressure 76 mm[Hg] 76 mm[Hg] MED[facility] ([facility] Body temperature 97.3 [degF] 97.3 [degF] MEDENT ([facility]) Diastolic blood pressure 87 mm[Hg] 87 mm[Hg] VANESSA ([facility]) Body height 68 [in_i] 68 [in_i] VANESSA ([facility]) Body mass index (BMI) [Ratio] 25.8 kg/m2 25.8 k g/m2 VANESSA ([facility]) Systolic blood pressure 132 mm[Hg] 132 mm[Hg] A [facility] ([facility]) Body weight 2720 [oz_av] 2720 [oz_av] VANESSA ([facility]) Diastolic blood pressure 87 mm[Hg] 87 mm[Hg] VANESSA ([facility]) Body height 68 [in_i] 68 [in_i] VANESSA ([facility]) Body mass index (BMI) [Ratio] 25.8 kg/m2 25.8 k g/m2 VANESSA ([facility]) Systolic blood pressure 132 mm[Hg] 132 mm[Hg] A THENA ([facility]) Body weight 2720 [oz_av] 2720 [oz_av] VANESSA ([facility]) Diastolic blood pressure 87 mm[Hg] 87 mm[Hg] VANESSA ([facility]) Body height 68 [in_i] 68 [in_i] VANESSA ([facility]) Body mass index (BMI) [Ratio] 25.8 kg/m2 25.8 k g/m2 VANESSA ([facility]) Systolic blood pressure 132 mm[Hg] 132 mm[Hg] A THENA ([facility]) Body weight 2720 [oz_av] 2720 [oz_av] VANESSA ([facility]) Diastolic blood pressure 87 mm[Hg] 87 mm[Hg] VANESSA ([facility]) Body height 68 [in_i] 68 [in_i] VANESSA ([facility]) Body mass index (BMI) [Ratio] 25.8 kg/m2 25.8 k g/m2 VANESSA ([facility]) Systolic blood pressure 132 mm[Hg] 132 mm[Hg] A THENA ([facility]) Body weight 2720 [oz_av] 2720 [oz_av] VANESSA ([facility]) Diastolic blood pressure 87 mm[Hg] 87 mm[Hg] VANESSA ([facility]) Body height 68 [in_i] 68 [in_i] VANESSA ([facility]) Body mass index (BMI) [Ratio] 25.8 kg/m2 25.8 k g/m2 VANESSA ([facility]) Systolic blood pressure 132 mm[Hg] 132 mm[Hg] A THENA ([facility]) Body weight 2720 [oz_av] 2720 [oz_av] VANESSA ([facility]) Diastolic blood pressure 87 mm[Hg] 87 mm[Hg] VANESSA ([facility]) Body height 68 [in_i] 68 [in_i] VANESSA ([facility]) Body mass index (BMI) [Ratio] 25.8 kg/m2 25.8 k g/m2 VANESSA ([facility]) Systolic blood pressure 132 mm[Hg] 132 mm[Hg] A THENA ([facility]) Body weight 2720 [oz_av] 2720 [oz_av] VANESSA ([facility]) Diastolic blood pressure 87 mm[Hg] 87 mm[Hg] VANESSA ([facility]) Body height 68 [in_i] 68 [in_i] VANESSA ([facility]) Body mass index (BMI) [Ratio] 25.8 kg/m2 25.8 k g/m2 VANESSA ([facility]) Systolic blood pressure 132 mm[Hg] 132 mm[Hg] A THENA ([facility]) Body weight 2720 [oz_av] 2720 [oz_av] VANESSA ([facility]) Body height 68 [in_i] 68 [in_i] VANESSA ([facility]) Body height 68 [in_i] 68 [in_i] VANESSA ([facility]) Body height 68 [in_i] 68 [in_i] VANESSA ([facility]) Body height 68 [in_i] 68 [in_i] VANESSA ([facility]) Body height 68 [in_i] 68 [in_i] VANESSA ([facility]) Body height 68 [in_i] 68 [in_i] VANESSA ([facility]) Body height 68 [in_i] 68 [in_i] VANESSA ([facility]) Body height 68 [in_i] 68 [in_i] VANESSA ([facility]) Diastolic blood pressure 72 mm[Hg] 72 mm[Hg] VANESSA ([facility]) Body height 68 [in_i] 68 [in_i] VANESSA ([facility]) Body mass index (BMI) [Ratio] 26.2 kg/m2 26.2 k g/m2 VANESSA ([facility]) Systolic blood pressure 124 mm[Hg] 124 mm[Hg] A THENA ([facility]) Body weight 2754 [oz_av] 2754 [oz_av] VANESSA ([facility]) Diastolic blood pressure 72 mm[Hg] 72 mm[Hg] VANESSA ([facility]) Body height 68 [in_i] 68 [in_i] VANESSA ([facility]) Body mass index (BMI) [Ratio] 26.2 kg/m2 26.2 k g/m2 VANESSA ([facility]) Systolic blood pressure 124 mm[Hg] 124 mm[Hg] [facility] Body weight 2754 [oz_av] 2754 [oz_av] VANESSA ([facility]) Diastolic blood pressure 72 mm[Hg] 72 mm[Hg] VANESSA ([facility]) Body height 68 [in_i] 68 [in_i] VANESSA ([facility]) Body mass index (BMI) [Ratio] 26.2 kg/m2 26.2 k g/m2 VANESSA ([facility]) Systolic blood pressure 124 mm[Hg] 124 mm[Hg] A THENA ([facility]) Body weight 2754 [oz_av] 2754 [oz_av] VANESSA ([facility]) Diastolic blood pressure 72 mm[Hg] 72 mm[Hg] VANESSA ([facility]) Body height 68 [in_i] 68 [in_i] VANESSA ([facility]) Body mass index (BMI) [Ratio] 26.2 kg/m2 26.2 k g/m2 VANESSA ([facility]) Systolic blood pressure 124 mm[Hg] 124 mm[Hg] A THENA ([facility]) Body weight 2754 [oz_av] 2754 [oz_av] VANESSA ([facility]) Diastolic blood pressure 72 mm[Hg] 72 mm[Hg] VANESSA ([facility]) Body height 68 [in_i] 68 [in_i] VANESSA ([facility]) Body mass index (BMI) [Ratio] 26.2 kg/m2 26.2 k g/m2 VANESSA ([facility]) Systolic blood pressure 124 mm[Hg] 124 mm[Hg] A [facility] ([facility]) Body weight 2754 [oz_av] 2754 [oz_av] VANESSA ([facility]) Body weight 2754 [oz_av] 2754 [oz_av] VANESSA ([facility]) Diastolic blood pressure 72 mm[Hg] 72 mm[Hg] VANESSA ([facility]) Body height 68 [in_i] 68 [in_i] VANESSA ([facility]) Body mass index (BMI) [Ratio] 26.2 kg/m2 26.2 k g/m2 VANESSA ([facility]) Systolic blood pressure 124 mm[Hg] 124 mm[Hg] [facility] Diastolic blood pressure 72 mm[Hg] 72 mm[Hg] VANESSA ([facility]) Body height 68 [in_i] 68 [in_i] VANESSA ([facility]) Body mass index (BMI) [Ratio] 26.2 kg/m2 26.2 k g/m2 VANESSA ([facility]) Systolic blood pressure 124 mm[Hg] 124 mm[Hg] [facility] Body weight 2754 [oz_av] 2754 [oz_av] VANESSA ([facility]) Diastolic blood pressure 72 mm[Hg] 72 mm[Hg] VANESSA ([facility]) Body height 68 [in_i] 68 [in_i] VANESSA ([facility]) Body mass index (BMI) [Ratio] 26.2 kg/m2 26.2 k g/m2 VANESSA ([facility]) Systolic blood pressure 124 mm[Hg] 124 mm[Hg] A THENA ([facility]) Body weight 2754 [oz_av] 2754 [oz_av] VANESSA ([facility]) Diastolic blood pressure 72 mm[Hg] 72 mm[Hg] VANESSA ([facility]) Body height 68 [in_i] 68 [in_i] VANESSA ([facility]) Body mass index (BMI) [Ratio] 26.2 kg/m2 26.2 k g/m2 VANESSA ([facility]) Systolic blood pressure 124 mm[Hg] 124 mm[Hg] [facility] Body weight 2754 [oz_av] 2754 [oz_av] VANESSA ([facility]) Diastolic blood pressure 72 mm[Hg] 72 mm[Hg] VANESSA ([facility]) Body height 68 [in_i] 68 [in_i] VANESSA ([facility]) Body mass index (BMI) [Ratio] 26.2 kg/m2 26.2 k g/m2 VANESSA ([facility]) Systolic blood pressure 124 mm[Hg] 124 mm[Hg] A [facility] ([facility]) Body weight 2754 [oz_av] 2754 [oz_av] VANESSA ([facility]) Diastolic blood pressure 82 mm[Hg] 82 mm[Hg] VANESSA ([facility]) Body height 68 [in_i] 68 [in_i] VANESSA ([facility]) Body mass index (BMI) [Ratio] 25.8 kg/m2 25.8 k g/m2 VANESSA ([facility]) Systolic blood pressure 130 mm[Hg] 130 mm[Hg] A [facility] ([facility]) Body weight 2710 [oz_av] 2710 [oz_av] VANESSA ([facility]) Diastolic blood pressure 82 mm[Hg] 82 mm[Hg] VANESSA ([facility]) Body height 68 [in_i] 68 [in_i] VANESSA ([facility]) Body mass index (BMI) [Ratio] 25.8 kg/m2 25.8 k g/m2 VANESSA ([facility]) Systolic blood pressure 130 mm[Hg] 130 mm[Hg] A THENA ([facility]) Body weight 2710 [oz_av] 2710 [oz_av] VANESSA ([facility]) Diastolic blood pressure 82 mm[Hg] 82 mm[Hg] VANESSA ([facility]) Body height 68 [in_i] 68 [in_i] VANESSA ([facility]) Body mass index (BMI) [Ratio] 25.8 kg/m2 25.8 k g/m2 VANESSA ([facility]) Systolic blood pressure 130 mm[Hg] 130 mm[Hg] A [facility] ([facility]) Body weight 2710 [oz_av] 2710 [oz_av] VANESSA ([facility]) Diastolic blood pressure 82 mm[Hg] 82 mm[Hg] VANESSA ([facility]) Body height 68 [in_i] 68 [in_i] VANESSA ([facility]) Body mass index (BMI) [Ratio] 25.8 kg/m2 25.8 k g/m2 VANESSA ([facility]) Systolic blood pressure 130 mm[Hg] 130 mm[Hg] A [facility] ([facility]) Body weight 2710 [oz_av] 2710 [oz_av] VANESSA ([facility]) Diastolic blood pressure 82 mm[Hg] 82 mm[Hg] VANESSA ([facility]) Body height 68 [in_i] 68 [in_i] VANESSA ([facility]) Body mass index (BMI) [Ratio] 25.8 kg/m2 25.8 k g/m2 VANESSA ([facility]) Systolic blood pressure 130 mm[Hg] 130 mm[Hg] A [facility] ([facility]) Body weight 2710 [oz_av] 2710 [oz_av] VANESSA ([facility]) Diastolic blood pressure 82 mm[Hg] 82 mm[Hg] VANESSA ([facility]) Body height 68 [in_i] 68 [in_i] VANESSA ([facility]) Body mass index (BMI) [Ratio] 25.8 kg/m2 25.8 k g/m2 VANESSA ([facility]) Systolic blood pressure 130 mm[Hg] 130 mm[Hg] A THENA ([facility]) Body weight 2710 [oz_av] 2710 [oz_av] VANESSA ([facility]) Diastolic blood pressure 82 mm[Hg] 82 mm[Hg] VANESSA ([facility]) Body height 68 [in_i] 68 [in_i] VANESSA ([facility]) Body mass index (BMI) [Ratio] 25.8 kg/m2 25.8 k g/m2 VANESSA ([facility]) Systolic blood pressure 130 mm[Hg] 130 mm[Hg] A [facility] ([facility]) Body weight 2710 [oz_av] 2710 [oz_av] VANESSA ([facility]) Diastolic blood pressure 82 mm[Hg] 82 mm[Hg] VANESSA ([facility]) Body height 68 [in_i] 68 [in_i] VANESSA ([facility]) Body mass index (BMI) [Ratio] 25.8 kg/m2 25.8 k g/m2 VANESSA ([facility]) Systolic blood pressure 130 mm[Hg] 130 mm[Hg] [facility] Body weight 2710 [oz_av] 2710 [oz_av] VANESSA ([facility]) Diastolic blood pressure 82 mm[Hg] 82 mm[Hg] VANESSA ([facility]) Body height 68 [in_i] 68 [in_i] VANESSA ([facility]) Body mass index (BMI) [Ratio] 25.8 kg/m2 25.8 k g/m2 VANESSA ([facility]) Systolic blood pressure 130 mm[Hg] 130 mm[Hg] A [facility] ([facility]) Body weight 2710 [oz_av] 2710 [oz_av] VANESSA ([facility]) Diastolic blood pressure 82 mm[Hg] 82 mm[Hg] VANESSA ([facility]) Body height 68 [in_i] 68 [in_i] VANESSA ([facility]) Body mass index (BMI) [Ratio] 25.8 kg/m2 25.8 k g/m2 VANESSA ([facility]) Systolic blood pressure 130 mm[Hg] 130 mm[Hg] A THENA ([facility]) Body weight 2710 [oz_av] 2710 [oz_av] VANESSA ([facility]) Diastolic blood pressure 82 mm[Hg] 82 mm[Hg] VANESSA ([facility]) Body height 68 [in_i] 68 [in_i] VANESSA ([facility]) Body mass index (BMI) [Ratio] 25.8 kg/m2 25.8 k g/m2 VANESSA ([facility]) Systolic blood pressure 130 mm[Hg] 130 mm[Hg] A [facility] ([facility]) Body weight 2710 [oz_av] 2710 [oz_av] VANESSA ([facility]) Patient Treatment Plan of Care Planned Activity Planned Date Details Description Data Source (s) Naproxen 500 MG Oral Tablet VANESSA ([facility]) sitagliptin 50 MG Oral Tablet [Januvia] VANESSA ([facility]) sitagliptin 25 MG Oral Tablet [Januvia] VANESSA ([facility]) 3 ML Insulin Lispro 100 UNT/ML Pen Injector [Humalog] VANESSA ([facility]) gabapentin 300 MG Oral Capsule VANESSA ([facility]) Cyclobenzaprine hydrochloride 5 MG Oral Tablet VANESSA ([facility]) Cephalexin 500 MG Oral Capsule VANESSA ([facility]) atorvastatin 20 MG Oral Tablet VANESSA ([facility]) atorvastatin 10 MG Oral Tablet VANESSA ([facility]) Acyclovir 200 MG Oral Capsule VANESSA ([facility]) 0.5 ML dulaglutide 1.5 MG/ML Auto-Injector [Trulicity] VANESSA ([facility]) 1.5 ML Insulin Glargine 300 UNT/ML Pen Injector [Toujeo] VANESSA ([facility]) Suprep Bowel Prep Kit 17.5 gram-3.13 gram-1.6 gram ora l solution MX AND DRK UTD VANESSA ([facility]) Naproxen 500 MG Oral Tablet VANESSA ([facility]) sitagliptin 50 MG Oral Tablet [Januvia] VANESSA ([facility]) sitagliptin 25 MG Oral Tablet [Januvia] VANESSA ([facility]) 3 ML Insulin Lispro 100 UNT/ML Pen Injector [Humalog] VANESSA ([facility]) gabapentin 300 MG Oral Capsule VANESSA ([facility]) Cyclobenzaprine hydrochloride 5 MG Oral Tablet VANESSA ([facility]) Cephalexin 500 MG Oral Capsule VANESSA ([facility]) atorvastatin 20 MG Oral Tablet VANESSA ([facility]) atorvastatin 10 MG Oral Tablet VANESSA ([facility]) Acyclovir 200 MG Oral Capsule VANESSA ([facility]) 0.5 ML dulaglutide 1.5 MG/ML Auto-Injector [Trulicity] VANESSA ([facility]) 1.5 ML Insulin Glargine 300 UNT/ML Pen Injector [Toujeo] VANESSA ([facility]) Suprep Bowel Prep Kit 17.5 gram-3.13 gram-1.6 gram ora l solution MX AND DRK UTD VANESSA ([facility]) Naproxen 500 MG Oral Tablet VANESSA ([facility]) sitagliptin 25 MG Oral Tablet [Januvia] VANESSA ([facility]) 3 ML Insulin Lispro 100 UNT/ML Pen Injector [Humalog] VANESSA ([facility]) gabapentin 300 MG Oral Capsule VANESSA ([facility]) Cyclobenzaprine hydrochloride 5 MG Oral Tablet VANESSA ([facility]) atorvastatin 20 MG Oral Tablet VANESSA ([facility]) 0.5 ML dulaglutide 1.5 MG/ML Auto-Injector [Trulicity] VANESSA ([facility]) 1.5 ML Insulin Glargine 300 UNT/ML Pen Injector [Toujeo] VANESSA ([facility]) Suprep Bowel Prep Kit 17.5 gram-3.13 gram-1.6 gram ora l solution MX AND DRK UTD VANESSA ([facility]) Naproxen 500 MG Oral Tablet VANESSA ([facility]) sitagliptin 25 MG Oral Tablet [Januvia] VANESSA ([facility]) 3 ML Insulin Lispro 100 UNT/ML Pen Injector [Humalog] VANESSA ([facility]) gabapentin 300 MG Oral Capsule VANESSA ([facility]) Cyclobenzaprine hydrochloride 5 MG Oral Tablet VANESSA ([facility]) atorvastatin 20 MG Oral Tablet VANESSA ([facility]) 0.5 ML dulaglutide 1.5 MG/ML Auto-Injector [Trulicity] VANESSA ([facility]) 1.5 ML Insulin Glargine 300 UNT/ML Pen Injector [Toujeo] VANESSA ([facility]) Suprep Bowel Prep Kit 17.5 gram-3.13 gram-1.6 gram ora l solution MX AND DRK UTD VANESSA ([facility]) Naproxen 500 MG Oral Tablet VANESSA ([facility]) sitagliptin 25 MG Oral Tablet [Januvia] VANESSA ([facility]) 3 ML Insulin Lispro 100 UNT/ML Pen Injector [Humalog] VANESSA ([facility]) gabapentin 300 MG Oral Capsule VANESSA ([facility]) Cyclobenzaprine hydrochloride 5 MG Oral Tablet VANESSA ([facility]) atorvastatin 20 MG Oral Tablet VANESSA ([facility]) 0.5 ML dulaglutide 1.5 MG/ML Auto-Injector [Trulicity] VANESSA ([facility]) 1.5 ML Insulin Glargine 300 UNT/ML Pen Injector [Toujeo] VANESSA ([facility]) Suprep Bowel Prep Kit 17.5 gram-3.13 gram-1.6 gram ora l solution MX AND DRK UTD VANESSA ([facility]) Naproxen 500 MG Oral Tablet VANESSA ([facility]) sitagliptin 25 MG Oral Tablet [Januvia] VANESSA ([facility]) 3 ML Insulin Lispro 100 UNT/ML Pen Injector [Humalog] VANESSA ([facility]) gabapentin 300 MG Oral Capsule VANESSA ([facility]) Cyclobenzaprine hydrochloride 5 MG Oral Tablet VANESSA ([facility]) atorvastatin 20 MG Oral Tablet VANESSA ([facility]) 0.5 ML dulaglutide 1.5 MG/ML Auto-Injector [Trulicity] VANESSA ([facility]) 1.5 ML Insulin Glargine 300 UNT/ML Pen Injector [Toujeo] VNAESSA ([facility]) Suprep Bowel Prep Kit 17.5 gram-3.13 gram-1.6 gram ora l solution MX AND DRK UTD VANESSA ([facility]) Naproxen 500 MG Oral Tablet VANESSA ([facility]) sitagliptin 25 MG Oral Tablet [Januvia] VANESSA ([facility]) 3 ML Insulin Lispro 100 UNT/ML Pen Injector [Humalog] VANESSA ([facility]) gabapentin 300 MG Oral Capsule VANESSA ([facility]) Cyclobenzaprine hydrochloride 5 MG Oral Tablet VANESSA ([facility]) atorvastatin 20 MG Oral Tablet VANESSA ([facility]) 0.5 ML dulaglutide 1.5 MG/ML Auto-Injector [Trulicity] VANESSA ([facility]) 1.5 ML Insulin Glargine 300 UNT/ML Pen Injector [Toujeo] VANESSA ([facility]) Suprep Bowel Prep Kit 17.5 gram-3.13 gram-1.6 gram ora l solution MX AND DRK UTD YUMA ([facility]) OneTouch Verio test strips U UTD TO TEST TID VANESSA ([facility]) Naproxen 500 MG Oral Tablet VANESSA ([facility]) sitagliptin 25 MG Oral Tablet [Januvia] VANESSA ([facility]) 3 ML Insulin Lispro 100 UNT/ML [facility] gab[facility] MG Oral Capsule VANESSA ([facility]) Cyclobenzaprine hydrochloride 5 MG Oral Tablet VANESSA ([facility]) atorvastatin 20 MG Oral Tablet VANESSA ([facility]) 0.5 ML dulaglutide 1.5 MG/ML Auto-Injector [Trulicity] VANESSA ([facility]) 1.5 ML Insulin Glargine 300 UNT/ML Pen Injector [Toujeo] VANESSA ([facility]) Suprep Bowel Prep Kit 17.5 gram-3.13 gram-1.6 gram ora l solution MX AND DRK UTD VANESSA ([facility]) OneTouch Verio test strips U UTD TO TEST TID VANESSA ([facility]) Naproxen 500 MG Oral Tablet VANESSA ([facility]) sitagliptin 25 MG Oral Tablet [Januvia] VANESSA ([facility]) 3 ML Insulin Lispro 100 UNT/ML Pen Injector [Humalog] VANESSA ([facility]) gabapentin 300 MG Oral Capsule VANESSA ([facility]) Cyclobenzaprine hydrochloride 5 MG Oral Tablet VANESSA ([facility]) atorvastatin 20 MG Oral Tablet VANESSA ([facility]) 0.5 ML dulaglutide 1.5 MG/ML Auto-Injector [Trulicity] VANESSA ([facility]) 1.5 ML Insulin Glargine 300 UNT/ML Pen Injector [Toujeo] VANESSA ([facility]) Suprep Bowel Prep Kit 17.5 gram-3.13 gram-1.6 gram ora l solution MX AND DRK UTD VANESSA ([facility]) OneTouch Verio test strips U UTD TO TEST TID VANESSA ([facility]) Naproxen 500 MG Oral Tablet VANESSA ([facility]) sitagliptin 25 MG Oral Tablet [Januvia] VANESSA ([facility]) 3 ML Insulin Lispro 100 UNT/ML Pen Injector [Humalog] VANESSA ([facility]) gabapentin 300 MG Oral Capsule VANESSA ([facility]) Cyclobenzaprine hydrochloride 5 MG Oral Tablet VANESSA ([facility]) atorvastatin 20 MG Oral Tablet VANESSA ([facility]) 0.5 ML dulaglutide 1.5 MG/ML Auto-Injector [Trulicity] VANESSA ([facility]) 1.5 ML Insulin Glargine 300 UNT/ML Pen Injector [Toujeo] VANESSA ([facility]) Suprep Bowel Prep Kit 17.5 gram-3.13 gram-1.6 gram ora l solution MX AND DRK UTD VANESSA ([facility]) OneTouch Verio test strips U UTD TO TEST TID VANESSA ([facility]) Naproxen 500 MG Oral Tablet VANESSA ([facility]) 3 ML Insulin Lispro 100 UNT/ML Pen Injector [Humalog] VANESSA ([facility]) Cyclobenzaprine hydrochloride 5 MG Oral Tablet VANESSA ([facility]) atorvastatin 20 MG Oral Tablet VANESSA ([facility]) 0.5 ML dulaglutide 1.5 MG/ML Auto-Injector [Trulicity] VANESSA ([facility]) 1.5 ML Insulin Glargine 300 UNT/ML Pen Injector [Toujeo] VANESSA ([facility]) Suprep Bowel Prep Kit 17.5 gram-3.13 gram-1.6 gram ora l solution MX AND DRK UTD VANESSA ([facility])
[2021-09-20 17:33] LABS: BASO # 0.1 10^3/uL (0.0-0.2); BASO % 0.5 % (0.0-1.0); EOS # 0.3 10^3/uL (0.0-0.5); HEMATOCRIT 45.4 % (42.0-52.0); HEMOGLOBIN 16.1 g/dl (13.5-17.5); LYMPH # 1.8 10^3/uL (1.5-5.0); LYMPH % 19.3 % (24.0-44.0); MEAN CORPUSCULAR HEMOGLOBIN 31.2 pg (27.0-33.0); MEAN CORPUSCULAR HGB CONC 35.5 g/dl (32.0-36.5); MONO # 0.7 10^3/uL (0.0-0.8); MONO % 7.6 % (2.0-8.0); NEUTROPHILS # 6.3 10^3/uL (1.5-8.5); NEUTROPHILS % 68.4 % (36.0-66.0); PLATELET COUNT, AUTOMATED 216 10^3/uL (150-450); RED BLOOD COUNT 5.16 10^6/uL (4.30-6.10); WHITE BLOOD COUNT 9.2 10^3/uL (4.0-10.0)
--- OUTSIDE RECORDS SUMMARY | 2021-09-20 17:43 | CCD ---
Author Author [facility] Organization [facility] Address Unknown Phone Unavailable Care Team Providers Care [place] [employer] Specialist Name Role Phone Suraj Motta MD Unavailable [...] Unavailable Unavailable Edson, Eligio MD Unavailable Unavailable Edsno, Eligio MD Unavailable Unavailable Edson, Eligio MD [...] Edson, Eligio MORALES Unavailable Unavailable Sandra Chicas RECRUITER ACCOUNT MANAGER RECRUITER ACCOUNT MANAGER Unavailable Unavailable Bartoszewski, Kelsea Darling MS, RPA-C Unavailable Unav ailable Bartoszewski, Kelsea Darling MS, RPA-C Unavailable Unav ailable Bartoszewski, Kelsea Darling MS, RPA-C Unavailable Unav ailable Bartoszewski, Kelsea Darling MS, RPA-C Unavailable Unav ailable Bartoszewski, Kelsea Darling MS, RPA-C Unavailable Unav ailable Bartoszewski, Kelsea Darling MS, RPA-C Unavailable Unav ailable Bartoszewski, Klesea Darling MS, RPA-C Unavailable Unav ailable Bartoszewski, [...] Unavailable Unavailable Miguelito WILSON DPM Unavailable Unavailable Migueltio WILSON DPM Unavailable Unavailable Miguelito WILSON DPM [...] Unavailable OBEN, T ELISE MD Unavailable Unavailable Alexnumpuramahendra, F Glory MD Unavailable Unavailable Alexnumpuramahendra, F Glory MD Unavailable Unavailable Alexnana maría F Glory MD Unavailable Unavailable Alexnumpuramahendra, F Glory MD Unavailable Unavailable Yareliumpseth F Glory MD Unavailable Unavailable Alexnumpuramahendra, F Glory MD Unavailable Unavailable Kunnumpurath, F [...] Glory MD Unavailable Unavailable Goutremout, Sallie Unavailable Scordo, M Jana PA Unavailable Unavailable [...] is protected by Article 27-F of the [facility] Public Health law. If you continue you may have access to information: Regarding HIV / AIDS; Provided by facilities licensed or operated by the [facility] Office of Mental Health; or Provided by the [facility] Office for People With Developmental Disabilities. If such information is present, then the following [facility] mandated warning applies: This information has [...] law may result in a fine or half-way sentence or both. A general authorization for the release of medical or other information is NOT sufficient authorization for further disc losure. Allergies and Adverse Reactions Type Description Substance Reaction Status Data Source(s ) No Known Drug Allergies No Known Drug Allergies [facility] No Known Food Allergies No Known Food Allergies [facility] Propensity to adverse reactions seasonal seasonal [facility] Family History Family Member Name Family Member Gender Family Member Status Date o f Status Description Data Source(s) Unknown Male Problem [facility] ([facility]) Encounters Encounter Providers Location Date Indications Data Source(s ) Gonzalo Motta MD: [address] [place] [phone], Ph. Attender: Gonzalo Motta MD [facility] Medical 09/20/2021 12:00:00 AM EDT [place] ([facility]) Outpatient Attender: ELISE YAN MDConsultant: Glory castillo MD 09/15/2021 10:26:01 AM EDT - 09/15/2021 12:55:00 PM EDT [facility] Patient discharged. Outpatient Attender: Darling Salguero i MS, RPA-CConsultant: Glory Fischer MD 09/12/2021 09:43:00 AM EDT - 09/12/2021 10:43:00 AM EDT [facility] Patient discharged. Gonzalo Motta MD: [address] [place] [address], Ph. Attender: Gonzalo Motta MD [facility] Medical 09/08/2021 12:00:00 AM EDT [place] ([facility]) Gonzalo Motta MD: [address] [place] [address], Ph. Attender: Gonzalo Motta MD [facility] Medical 09/08/2021 12:00:00 AM EDT [place] ([facility]) Outpatient Attender: ELISE YAN MDConsultant: Glory castillo MD 09/07/2021 08:07:00 AM EDT - 09/07/2021 08:07:00 AM EDT [facility] Jana Wylie PA-C: [address], [place] [address], Ph. Attender: Jana PERDOMO [facility] Medical 08/25/2021 12:00:00 AM EDT [place] ([facility]) Jana Wylie PA-C: [address], [place] [address], Ph. Attender: Jana PERDOMO [facility] Medical 08/25/2021 12:00:00 AM EDT [facility]) Jana Wylie PA-C: [address], [place] [address], Ph. Attender: Jana PERDOMO [facility] Medical 08/25/2021 12:00:00 AM EDT [place] ([facility]) Jana Wylie PA-C: [address], [place] [address], Ph. Attender: Jana PERDOMO [facility] Medical 07/05/2021 12:00:00 AM EDT [place] ([facility]) Jana Wylie PA-C: [address], [place] [address], Ph. Attender: Jana PERDOMO [facility] Medical 07/05/2021 12:00:00 AM EDT [place] ([facility]) Jana Wylie PA-C: [address], [place] [address], Ph. Attender: Jana PERDOMO [facility] Medical 07/05/2021 12:00:00 AM EDT [place] ([facility]) Jana Wylie PA-C: [address], [place] [address], Ph. Attender: Jana PERDOMO [facility] Medical 07/05/2021 12:00:00 AM EDT [place] ([facility]) Extended Individual Psychotherapy - 45 min [facility] 06/28/2021 01:45:00 AM EDT - 06/28/2021 01:45:00 AM EDT [facility] Jana Wylie PA-C: [address], [place] [address], Ph. Attender: Jana PERDOMO [facility] Medical 06/28/2021 12:00:00 AM EDT [place] ([facility]) Jana Wylie PA-C: [address], [place] [address], Ph. Attender: Jana PERDOMO [facility] Medical 06/28/2021 12:00:00 AM EDT [place] ([facility]) Jana Wylie PA-C: [address], [place] [address], Ph. Attender: Jana PERDOMO [facility] Medical 06/28/2021 12:00:00 AM EDT [place] ([facility]) Jana Wylie PA-C: [address], [place] [address], Ph. Attender: Jana PERDOMO [facility] Medical 06/28/2021 12:00:00 AM EDT [place] ([facility]) Jana Wylie PA-C: [address], [place] [address], Ph. Attender: Jana PERDOMO [facility] Medical 06/28/2021 12:00:00 AM EDT [place] ([facility]) Attender: Sallie Guajardo 06/28/2021 12:00:0 0 AM EDT [facility] ([facility]) Outpatient [id number] 06/14/2021 11:48:03 AM EDT [facility] Telemed Diagnostic Eval Attender: Souleymane Harp MD [facility] sarahi Montano 06/07/2021 08:30:00 AM EDT - 06/07/2021 08:30:00 AM EDT [facility] ([facility]) Attender: Souleymane Harp MD 06/07/2021 12:00:00 AM EDT [facility] ([facility]) Outpatient Attender: Eligio Sandhu MD Main office - [place] 05/10/2021 01:15:00 PM EDT [facility] ([facility]) Gonzalo Motta MD: [address] [place] [address], Ph. Attender: Gonzalo Motta MD [facility] Medical 04/25/2021 12:00:00 AM EDT [place] ([facility]) Gonzalo Motta MD: [address] [place] [address], Ph. Attender: Gonzalo Motta MD [facility] Medical 04/25/2021 12:00:00 AM EDT [place] ([facility]) Gonzalo Motta MD: [address] [place] [address], Ph. Attender: Gonzalo Motta MD [facility] Medical 04/25/2021 12:00:00 AM EDT [place] ([facility]) Gonzalo Motta MD: [address] [place] [address], Ph. Attender: Gonzalo Motta MD [facility] Medical 04/25/2021 12:00:00 AM EDT [place] ([facility]) Gonzalo Motta MD: [address] [place] [address], Ph. Attender: Gonzalo Motta MD [facility] Medical 04/25/2021 12:00:00 AM EDT [place] ([facility]) Gonzalo Motta MD: [address] [place] [address], Ph. Attender: Gonzalo Motta MD [facility] Medical 04/25/2021 12:00:00 AM EDT [place] ([facility]) Outpatient Attender: Eligio Sandhu MD Main office - [place] 04/07/2021 03:15:00 PM EDT [facility] ([facility]) Outpatient Attender: ESME STYLES MDConsultant: Glory ann MD 04/06/2021 03:08:00 PM EDT - 04/06/2021 03:08:00 PM EDT [facility] Jana Wylie PA-C: [address], [place] [address], Ph. Attender: Jana PERDOMO [facility] Medical 03/21/2021 12:00:00 AM EDT [place] ([facility]) Jana Wylie PA-C: [address], [place] [address], Ph. Attender: Jana PERDOMO [facility] Medical 03/21/2021 12:00:00 AM EDT [place] ([facility]) Jana Wylie PA-C: [address], [place] [address], Ph. Attender: Jana PERDOMO [facility] Medical 03/21/2021 12:00:00 AM EDT [place] ([facility]) Jana Wylie PA-C: [address], [place] [address], Ph. Attender: Jana PERDOMO [facility] Medical 03/21/2021 12:00:00 AM EDT [place] ([facility]) Jana Wylie PA-C: [address], [place] [address], Ph. Attender: Jana PERDOMO [facility] Medical 03/21/2021 12:00:00 AM EDT [place] ([facility]) Jana Wylie PA-C: [address], [place] [address], Ph. Attender: Jana PERDOMO [facility] Medical 03/21/2021 12:00:00 AM EDT [place] ([facility]) Jana Wylie PA-C: [address], [place] [address], Ph. Attender: Jana PERDOMO [facility] Medical 03/21/2021 12:00:00 AM EDT [place] ([facility]) Outpatient Attender: ЕКАТЕРИНА WILSON [facility] 02/18 08:15:00 AM EDT [facility] ([facility] Outpatient Attender: ESME Caceres nder: ELISE YAN MDConsultant: Glory Fischer MD 03/11/2021 02:01:00 PM EDT - 03/11/2021 02:01:00 PM EDT [facility] Jana Wylie PA-C: [address], [place] [address], Ph. Attender: Jana PERDOMO [facility] Medical 03/10/2021 12:00:00 AM EDT [place] ([facility]) Jana Wylie PA-C: [address], [place] [address], Ph. Attender: Jana PERDOMO [facility] Medical 03/10/2021 12:00:00 AM EDT [place] ([facility]) Jana Wylie PA-C: [address], [place] [address], Ph. Attender: Jana PERDOMO [facility] Medical 03/10/2021 12:00:00 AM EDT [place] ([facility]) Jana Wylie PA-C: [address], [place] [address], Ph. Attender: Jana PERDOMO [facility] Medical 03/10/2021 12:00:00 AM EDT [place] ([facility]) Jana Wylie PA-C: [address], [place] [address], Ph. Attender: Jana PERDOMO [facility] Medical 03/10/2021 12:00:00 AM EDT [place] ([facility]) Jana Wylie PA-C: [address], [place] [address], Ph. Attender: Jana PERDOMO [facility] Medical 03/10/2021 12:00:00 AM EDT [place] ([facility]) Jana Wylie PA-C: [address], [place] [address], Ph. Attender: Jana PERDOMO [facility] Medical 03/10/2021 12:00:00 AM EDT [place] ([facility]) Jana Wylie PA-C: [address], [place] [address], Ph. Attender: Jana PERDOMO [facility] Medical 03/10/2021 12:00:00 AM EDT [place] ([facility]) Jana Wylie PA-C: [address], [place] [address], Ph. Attender: Jana PERDOMO [facility] Medical 03/09/2021 12:00:00 AM EDT [place] ([facility]) Jana Wylie PA-C: [address], [place] [address], Ph. Attender: Jana PERDOMO [facility] Medical 03/09/2021 12:00:00 AM EDT [place] ([facility]) Jana Wylie PA-C: [address], [place] [address], Ph. Attender: Jana PERDOMO [facility] Medical 03/09/2021 12:00:00 AM EDT [place] ([facility]) Jana Wylie PA-C: [address], [place] [address], Ph. Attender: Jana PERDOMO [facility] Medical 03/09/2021 12:00:00 AM EDT [place] ([facility]) Jana Wylie PA-C: [address], [place] [address], Ph. Attender: Jana PERDOMO [facility] Medical 03/09/2021 12:00:00 AM EDT [place] ([facility]) Jana Wylie PA-C: [address], [place] [address], Ph. Attender: Jana PERDOMO [facility] Medical 03/09/2021 12:00:00 AM EDT [place] ([facility]) Jana Wylie PA-C: [address], [place] [address], Ph. Attender: Jana PERDOOM [facility] Medical 03/09/2021 12:00:00 AM EDT [place] ([facility]) Jana Wylie PA-C: [address], [place] [address], Ph. Attender: Jana PERDOMO [facility] Medical 03/09/2021 12:00:00 AM EDT [place] ([facility]) Jana Wylie PA-C: [address], [place] [address], Ph. Attender: Jana PERDOMO [facility] Medical 03/09/2021 12:00:00 AM EDT [place] ([facility]) Gonzalo Motta MD: [address], [place] [address], Ph. Attender: Gonzalo Motta MD [facility] Medical 02/21/2021 12:00:00 AM EDT [place] ([facility]) Gonzalo Motta MD: [address] [place] [address], Ph. Attender: Gonzalo Motta MD [facility] Medical 02/21/2021 12:00:00 AM EDT [place] ([facility]) Gonzalo Motta MD: [address] [place] [address], Ph. Attender: Gonzalo Motta MD [facility] Medical 02/21/2021 12:00:00 AM EDT [place] ([facility]) Gonzalo Motta MD: [address] [place] [address], Ph. Attender: Gonzalo Motta MD [facility] Medical 02/21/2021 12:00:00 AM EDT [place] ([facility]) Gonzalo Motta MD: [address], [place] [address], Ph. Attender: Gonzalo Motta MD [facility] Medical 02/21/2021 12:00:00 AM EDT [place] ([facility]) Gonzalo Motta MD: [address] [place] [address], Ph. Attender: Gonzalo Motta MD [facility] Medical 02/21/2021 12:00:00 AM EDT [place] ([facility]) Gonzalo Motta MD: [address] [place] [address], Ph. Attender: Gonzalo Motta MD [facility] Medical 02/21/2021 12:00:00 AM EDT [place] ([facility]) Gonzalo Motta MD: [address] [place] [address], Ph. Attender: Gonzalo Motta MD [facility] Medical 02/21/2021 12:00:00 AM EDT [place] ([facility]) Gonzalo Motta MD: [address] [place] [address], Ph. Attender: Gonzalo Motta MD [facility] Medical 02/21/2021 12:00:00 AM EDT [place] ([facility]) Gonzalo Motta MD: [address] [place] [address], Ph. Attender: Gonzalo Motta MD [facility] Medical 02/21/2021 12:00:00 AM EDT [place] ([facility]) Jana Wylie PA-C: [address], [place] [address], Ph. Attender: Jana PERDOMO [facility] Medical 02/15/2021 12:00:00 AM EDT [place] ([facility]) Jana Wylie PA-C: [address], [place] [address], Ph. Attender: Jana PERDOMO [facility] Medical 02/15/2021 12:00:00 AM EDT [place] ([facility]) Jana Wylie PA-C: [address], [place] [address], Ph. Attender: Jana PERDOMO [facility] Medical 02/15/2021 12:00:00 AM EDT [place] ([facility]) Jana Wylie PA-C: [address], [place] [address], Ph. Attender: Jana PERDOMO [facility] Medical 02/15/2021 12:00:00 AM EDT [place] ([facility]) Jana Wylie PA-C: [address], [place] [address], Ph. Attender: Jana PERDOMO [facility] Medical 02/15/2021 12:00:00 AM EDT [place] ([facility]) Jana Wylie PA-C: [address], [place] [address], Ph. Attender: Jana PERDOMO [facility] Medical 02/15/2021 12:00:00 AM EDT [place] ([facility]) Jana Wylie PA-C: [address], [place] [address], Ph. Attender: Jana PERDOMO [facility] Medical 02/15/2021 12:00:00 AM EDT [place] ([facility]) Jana Wylie PA-C: [address], [place] [address], Ph. Attender: Jana PERDOMO [facility] Medical 02/15/2021 12:00:00 AM EDT [place] ([facility]) Jana Wylie PA-C: [address], [place] [address], Ph. Attender: Jana PERDOMO [facility] Medical 02/15/2021 12:00:00 AM EDT [place] ([facility]) Jana Wylie PA-C: [address], [place] [address], Ph. Attender: Jana PERDOMO [facility] Medical 02/15/2021 12:00:00 AM EDT [place] ([facility]) Jana Wylie PA-C: [address], [place] [address], Ph. Attender: Jana PERDOMO [facility] Medical 02/15/2021 12:00:00 AM EDT [place] ([facility]) Outpatient Attender: MADHURI DHALIWAL 09/30/2020 08:32:01 A M [facility] Jana Wylie PA-C: [address], [place] [address], Ph. Attender: Jana PERDOMO [facility] Medical 09/30/2020 12:00:00 AM EST [place] ([facility]) Jana Wylie PA-C: [address], [place] [address], Ph. Attender: Jana PERDOMO [facility] Medical 09/30/2020 12:00:00 AM EST [place] ([facility]) Jana Wylie PA-C: [address], [place] [address], Ph. Attender: Jana PERDOMO [facility] Medical 09/30/2020 12:00:00 AM EST [place] ([facility]) Jana Wylie PA-C: [address], [place] [address], Ph. Attender: Jana PERDOMO [facility] Medical 09/30/2020 12:00:00 AM EST [place] ([facility]) Jana Wylie PA-C: [address], [place] [address], Ph. Attender: Jana PERDOMO [facility] Medical 09/30/2020 12:00:00 AM EST [place] ([facility]) Jana Wylie PA-C: [address], [place] [address], Ph. Attender: Jana PERDOMO [facility] Medical 09/30/2020 12:00:00 AM EST [place] ([facility]) Jana Wylie PA-C: [address], [place] [address], Ph. Attender: Jana PERDOMO [facility] Medical 09/30/2020 12:00:00 AM EST [place] ([facility]) Jana Wylie PA-C: [address], [place] [address], Ph. Attender: Jana PERDOMO [facility] Medical 09/30/2020 12:00:00 AM EST [place] ([facility]) Jana Wylie PA-C: [address], [place] [address], Ph. Attender: Jana PERDOMO [facility] Medical 09/30/2020 12:00:00 AM EST [facility]) Jana Wylie PA-C: [address], [place] [address], Ph. Attender: Jana PERDOMO [facility] Medical 09/30/2020 12:00:00 AM EST [facility]) Jana Wylie PA-C: [address], [place] [address], Ph. Attender: Jana PERDOMO [facility] Medical 09/30/2020 12:00:00 AM EST [facility]) Jana Wylie PA-C: [address], [place] [address], Ph. Attender: Jana PERDOMO [facility] Medical 09/30/2020 12:00:00 AM EST [place] ([facility]) Outpatient Attender: ESME STYLES MDConsultant: Glory ann MD 10/15/2018 01:14:32 PM [facility] - 10/15/2018 01:13:00 PM [facility] Functional Status Immunizations Vaccine Date Status Description Data Source(s) COVID-19, mRNA, LNP-S, PF, 100 mcg/0.5 mL dose 09/08/2021 08 :59:35 AM EDT completed 10.5 mL [place] ([facility]) COVID-19, mRNA, LNP-S, PF, 100 mcg/0.5 mL dose 09/08/2021 08 :59:35 AM EDT completed 10.5 mL [place] ([facility]) COVID-19 VACCINE Moderna 09/08/2021 12:00:00 AM EDT completed [facility] Vaccine Series Complete: NOThis Data was Submitted to [facility] Via [facility]. Tdap 08/25/2021 04:27:00 PM EDT completed 08/25/2021 0.5 mL [facility] ([facility]) Tdap 08/25/2021 04:27:00 PM EDT completed 08/25/2021 0.5 mL [facility] ([facility]) Medications Medication Brand Name Start Date Product Form Dose Route Admi nistrative Instructions Pharmacy Instructions Status Indications Reaction Description Data Source(s) 1.5 ML Insulin Glargine 300 UNT/ML Pen I njector [Toujeo] Toujeo SoloStar U-300 Insulin 300 unit/mL (1.5 mL) subcutaneous pen INJECT 35 UNITS UNDER THE SKIN IN THE MORNING AND 45 UNITS IN THE EVENING Toujeo SoloStar U-300 Insulin 300 unit/mL (1.5 mL) subcutaneous pen INJECT 35 UNITS UNDER THE SKIN IN THE MORNING AND 45 UNITS IN THE EVENING 09/20/2021 12:00:00 AM EDT completed 1.5 ML insulin glargine 300 UNT/ML Pen Injector [Toujeo] [facility] ([facility]) 24 HR paliperidone 1.5 MG Extended Release Oral Tablet [Inve ga] Invega 06/07/2021 12:00:00 AM EDT 1.5 mg by mouth completed <td ID="MedicationRxNorm_3">060095</td><td ID="MedicationMedication_3">Invega</td><td ID="MedicationRoute_3">by mouth</td><td ID="MedicationRouteConcept_3">A73810</td><td ID="MedicationStartDate_3">06/07/2021</td><td ID="MedicationStopDate_3">07/07/2021</td><td ID="MedicationDosageFrequency_3">at bedtime</td><td ID="MedicationDuration_3">30</td><td ID="MedicationFormulaStrength_3">1.5 mg</td><td ID="MedicationDosageForm_3">tablet extended release 24hr</td><td ID="MedicationDosageFormCode_3"></td><td ID="MedicationDosageDescription_3"></td><td ID="MedicationMedicationId_3">[id number]</td><td ID="MedicationAccount_3">[id number]</td><td ID="MedicationNpid_3">[id number]</td><td ID="MedicationAuthorFirstName_3">Souleymane</td><td ID="MedicationAuthorLastName_3">Harp</td><td ID="MedicationTaxonomyCode_3">[id number]</td><td ID="MedicationTaxonomyDesc_3"> Psychiatry</td><td ID="MedicationPhoneNumber_3">[phone]</td> [facility] 24 HR paliperidone 1.5 MG Extended Release Oral Tablet [Inve ga] Invega 06/07/2021 12:00:00 AM EDT 1.5 mg by mouth completed <td ID="MedicationRxNorm_1">787350</td><td ID="MedicationMedication_1">Invega</td><td ID="MedicationRoute_1">by mouth</td><td ID="MedicationRouteConcept_1">U66331</td><td ID="MedicationStartDate_1">06/07/2021</td><td ID="MedicationStopDate_1">07/07/2021</td><td ID="MedicationDosageFrequency_1">at bedtime</td><td ID="MedicationDuration_1">30</td><td ID="MedicationFormulaStrength_1">1.5 mg</td><td ID="MedicationDosageForm_1">tablet extended release 24hr</td><td ID="MedicationDosageFormCode_1"></td><td ID="MedicationDosageDescription_1"></td><td ID="MedicationMedicationId_1">[id number]</td><td ID="MedicationAccount_1">[id number]</td><td ID="MedicationNpid_1">[id number]</td><td ID="MedicationAuthorFirstName_1">Souleymane</td><td ID="MedicationAuthorLastName_1">Harp</td><td ID="MedicationTaxonomyCode_1">1139W7741G</td><td ID="MedicationTaxonomyDesc_1"> Psychiatry</td><td ID="MedicationPhoneNumber_1">[phone]</td> [facility] Fluoxetine 10 MG Oral Capsule [Prozac] Prozac 07/02/2018 12:0 0:00 AM EDT 10 mg completed <td ID="Me dicationRxNorm_2">[id number]</td><td ID="MedicationMedication_2">Prozac</td><td ID="MedicationRoute_2"></td><td ID="MedicationRouteConcept_2"></td><td ID="MedicationStartDate_2">07/02/2018</td><td ID="MedicationStopDate_2">06/07/2021</td><td ID="MedicationDosageFrequency_2">every morning</td><td ID="MedicationDuration_2"></td><td ID="MedicationFormulaStrength_2">10 mg</td><td ID="MedicationDosageForm_2">capsule</td><td ID="MedicationDosageFormCode_2"></td><td ID="MedicationDosageDescription_2">as directed</td><td ID="MedicationMedicationId_2">[id number]</td><td ID="MedicationAccount_2">[id number]</td><td ID="MedicationNpid_2">[id number]</td><td ID="MedicationAuthorFirstName_2">Elsa</td><td ID="MedicationAuthorLastName_2">MacQueen</td><td ID="MedicationTaxonomyCode_2">[id number]</td><td ID="MedicationTaxonomyDesc_2">Psychiatric/Mental Health</td><td ID="MedicationPhoneNumber_2">[phone]</td> [facility] ([facility]) Lurasidone Hydrochloride 80 MG Oral Tablet [Latuda] Latuda 07/19/2017 12:00:00 AM EDT 80 mg completed <td ID ="MedicationRxNorm_1">[id number]</td><td ID="MedicationMedication_1">Latuda</td><td ID="MedicationRoute_1"></td><td ID="MedicationRouteConcept_1"></td><td ID="MedicationStartDate_1">07/19/2017</td><td ID="MedicationStopDate_1">06/07/2021</td><td ID="MedicationDosageFrequency_1">once a day</td><td ID="MedicationDuration_1"></td><td ID="MedicationFormulaStrength_1">80 mg</td><td ID="MedicationDosageForm_1">tablet</td><td ID="MedicationDosageFormCode_1"></td><td ID="MedicationDosageDescription_1"></td><td ID="MedicationMedicationId_1">[id number]</td><td ID="MedicationAccount_1">[id number]</td><td ID="MedicationNpid_1">[id number]</td><td ID="MedicationAuthorFirstName_1">Elsa</td><td ID="MedicationAuthorLastName_1">Celine</td><td ID="MedicationTaxonomyCode_1">[id number]</td><td ID="MedicationTaxonomyDesc_1">Psychiatric/Mental Health</td><td ID="MedicationPhoneNumber_1">[phone]</td> [facility] ([facility]) atorvastatin 20 MG Oral Tablet atorvastatin 20 mg tabl et TK 1 T PO QD atorvastatin 20 mg tablet TK 1 T PO QD completed atorvastatin 20 MG Oral Tablet [facility] ([facility]) 0.5 ML dulaglutide 1.5 MG/ML Auto-Inject or [Trulicity] Trulicity 0.75 mg/0.5 mL subcutaneous pen injector Trulicity 0.75 mg/0.5 mL subcutaneous pen injector completed 0.5 ML dulaglu tide 1.5 MG/ML Auto-Injector [Trulicity] [facility] ([facility]) 0.5 ML dulaglutide 1.5 MG/ML Auto-Inject or [Trulicity] Trulicity 0.75 mg/0.5 mL subcutaneous pen injector Trulicity 0.75 mg/0.5 mL subcutaneous pen injector completed 0.5 ML dulaglu tide 1.5 MG/ML Auto-Injector [Trulicity] [facility] ([facility]) Cyclobenzaprine hydrochloride 5 MG Oral Tablet cyclobenzaprine 5 mg tablet TAKE ONE TABLET BY MOUTH THREE TIMES DAILY NEEDED FOR MUSCLE SPASMS cyclobenzaprine 5 mg tablet TAKE ONE TABLET BY MOUTH THREE TIMES DAILY NEEDED FOR MUSCLE SPASMS completed cyclobenzaprine hydrochloride 5 MG Oral Tablet [facility] ([facility]) Acyclovir 200 MG Oral Capsule acyclovir 200 mg capsule acycl ovir 200 mg capsule completed acyclovir 200 MG Oral Capsule [facility] ([facility]) OneTouch Verio test strips U UTD TO TEST TID 954643 completed OneTouch Verio test strips [facility] ([facility]) sitagliptin 25 MG Oral Tablet [Januvia] Januvia 25 mg tablet Januvia 25 mg tablet completed sitagliptin 25 MG Oral Tablet [Januvia] [place] ([facility]) Naproxen 500 MG Oral Tablet naproxen 500 mg tablet TK 1 T PO BID P naproxen 500 mg tablet TK 1 T PO BID P completed naproxen 500 MG Oral Tablet [place] ([facility]) sitagliptin 25 MG Oral Tablet [Januvia] Januvia 25 mg tablet Januvia 25 mg tablet completed sitagliptin 25 MG Oral Tablet [Januvia] [place] ([facility]) atorvastatin 20 MG Oral Tablet atorvastatin 20 mg tabl et TK 1 T PO QD atorvastatin 20 mg tablet TK 1 T PO QD completed atorvastatin 20 MG Oral Tablet [facility] ([facility]) atorvastatin 20 MG Oral Tablet atorvastatin 20 mg tabl et TK 1 T PO QD atorvastatin 20 mg tablet TK 1 T PO QD completed atorvastatin 20 MG Oral Tablet [place] ([facility]) Acyclovir 200 MG Oral Capsule acyclovir 200 mg capsule acycl ovir 200 mg capsule completed acyclovir 200 MG Oral Capsule [place] ([facility]) 0.5 ML dulaglutide 1.5 MG/ML Auto-Inject or [Trulicity] Trulicity 0.75 mg/0.5 mL subcutaneous pen injector Trulicity 0.75 mg/0.5 mL subcutaneous pen injector completed 0.5 ML dulaglu tide 1.5 MG/ML Auto-Injector [Trulicity] [facility]) 3 ML Insulin Lispro 100 UNT/ML Pen Injec tor [Humalog] Humalog KwikPen (U-100) Insulin 100 unit/mL subcutaneous Humalog KwikPen (U-100) Insulin 100 unit /mL subcutaneous completed 3 ML insulin lispro 100 UNT/ML Pen Injector [Humalog] [place] ([facility]) Naproxen 500 MG Oral Tablet naproxen 500 mg tablet TK 1 T PO BID P naproxen 500 mg tablet TK 1 T PO BID P completed naproxen 500 MG Oral Tablet [facility] ([facility]) 3 ML Insulin Lispro 100 UNT/ML Pen Injec tor [Humalog] Humalog KwikPen (U-100) Insulin 100 unit/mL subcutaneous Humalog KwikPen (U-100) Insulin 100 unit /mL subcutaneous completed 3 ML insulin lispro 100 UNT/ML Pen Injector [Humalog] [facility] ([facility]) Cephalexin 500 MG Oral Capsule cephalexin 500 mg capsu le cephalexin 500 mg capsule completed cephalexin 500 MG Oral Capsule [facility] ([facility]) atorvastatin 10 MG Oral Tablet atorvastatin 10 mg tabl et atorvastatin 10 mg tablet completed atorvastatin 10 MG Oral Tablet [facility] ([facility]) Suprep Bowel Prep Kit 17.5 gram-3.13 gram-1.6 gram ora l solution MX AND DRK UTD [id number] completed Suprep Bowel Prep Kit 17.5 gram-3.13 gram-1.6 gram oral solution [facility] ([facility]) Cephalexin 500 MG Oral Capsule cephalexin 500 mg capsu le cephalexin 500 mg capsule completed cephalexin 500 MG Oral Capsule [place] ([facility]) atorvastatin 20 MG Oral Tablet atorvastatin 20 mg tabl et TK 1 T PO QD atorvastatin 20 mg tablet TK 1 T PO QD completed atorvastatin 20 MG Oral Tablet [facility] ([facility]) Cyclobenzaprine hydrochloride 5 MG Oral Tablet cyclobenzaprine 5 mg tablet TAKE ONE TABLET BY MOUTH THREE TIMES DAILY NEEDED FOR MUSCLE SPASMS cyclobenzaprine 5 mg tablet TAKE ONE TABLET BY MOUTH THREE TIMES DAILY NEEDED FOR MUSCLE SPASMS completed cyclobenzaprine hydrochloride 5 MG Oral Tablet [facility] ([facility]) 0.5 ML dulaglutide 1.5 MG/ML Auto-Inject or [Trulicity] Trulicity 0.75 mg/0.5 mL subcutaneous pen injector Trulicity 0.75 mg/0.5 mL subcutaneous pen injector completed 0.5 ML dulaglu tide 1.5 MG/ML Auto-Injector [Trulicity] [facility] ([facility]) 1.5 ML Insulin Glargine 300 [...] glargine 300 UNT/ML Pen Injector [Toujeo] [facility] ([facility]) gabapentin 300 MG Oral Capsule gabapenti n 300 mg capsule TAKE 1 CAPSULE BY MOUTH THREE TIMES DAILY gabapentin 300 mg capsule TAKE 1 CAPSULE BY MOUTH THREE TIMES DAILY completed gabapentin 300 MG Oral Capsule [facility] ([facility]) 0.5 ML dulaglutide 1.5 MG/ML Auto-Inject or [Trulicity] Trulicity 0.75 mg/0.5 mL subcutaneous pen injector Trulicity 0.75 mg/0.5 mL subcutaneous pen injector completed 0.5 ML dulaglu tide 1.5 MG/ML Auto-Injector [Trulicity] [facility] ([facility]) 0.5 ML dulaglutide 1.5 MG/ML Auto-Inject or [Trulicity] Trulicity 0.75 mg/0.5 mL subcutaneous pen injector Trulicity 0.75 mg/0.5 mL subcutaneous pen injector completed 0.5 ML dulaglu tide 1.5 MG/ML Auto-Injector [Trulicity] [place] ([facility]) sitagliptin 50 MG Oral Tablet [Januvia] Januvia 50 mg tablet Januvia 50 mg tablet completed sitagliptin 50 MG Oral Tablet [Januvia] [place] ([facility]) Naproxen 500 MG Oral Tablet naproxen 500 mg tablet TK 1 T PO BID P naproxen 500 mg tablet TK 1 T PO BID P completed naproxen 500 MG Oral Tablet [place] ([facility]) 3 ML Insulin Lispro 100 UNT/ML Pen Injec tor [Humalog] Humalog KwikPen (U-100) Insulin 100 unit/mL subcutaneous Humalog KwikPen (U-100) Insulin 100 unit /mL subcutaneous completed 3 ML insulin lispro 100 UNT/ML Pen Injector [Humalog] [facility] ([facility]) 1.5 ML Insulin Glargine 300 UNT/ML [...] glargine 300 UNT/ML Pen Injector [Toujeo] [facility] ([facility]) 1.5 ML Insulin Glargine 300 UNT/ML [...] glargine 300 UNT/ML Pen Injector [Toujeo] [facility] ([facility]) 1.5 ML Insulin Glargine 300 UNT/ML [...] glargine 300 UNT/ML Pen Injector [Toujeo] [facility] ([facility]) OneTouch Verio test strips U UTD TO TEST TID [id number] completed OneTouch Verio test strips [facility] ([facility]) 1.5 ML Insulin Glargine 300 UNT/ML [...] glargine 300 UNT/ML Pen Injector [Toujeo] [facility] ([facility]) Naproxen 500 MG Oral Tablet naproxen 500 mg tablet TK 1 T PO BID P naproxen 500 mg tablet TK 1 T PO BID P completed naproxen 500 MG Oral Tablet [facility] ([facility]) sitagliptin 25 MG Oral Tablet [Januvia] Januvia 25 mg tablet Januvia 25 mg tablet completed sitagliptin 25 MG Oral Tablet [Januvia] [place] ([facility]) Cyclobenzaprine hydrochloride 5 MG Oral Tablet cyclobenzaprine 5 mg tablet TAKE ONE TABLET BY MOUTH THREE TIMES DAILY NEEDED FOR MUSCLE SPASMS cyclobenzaprine 5 mg tablet TAKE ONE TABLET BY MOUTH THREE TIMES DAILY NEEDED FOR MUSCLE SPASMS completed cyclobenzaprine hydrochloride 5 MG Oral Tablet [place] ([facility]) Naproxen 500 MG Oral Tablet naproxen 500 mg tablet TK 1 T PO BID P naproxen 500 mg tablet TK 1 T PO BID P completed naproxen 500 MG Oral Tablet [place] ([facility]) 3 ML Insulin Lispro 100 UNT/ML Pen Injec tor [Humalog] Humalog KwikPen (U-100) Insulin 100 unit/mL subcutaneous Humalog KwikPen (U-100) Insulin 100 unit /mL subcutaneous completed 3 ML insulin lispro 100 UNT/ML Pen Injector [Humalog] [place] ([facility]) Naproxen 500 MG Oral Tablet naproxen 500 mg tablet TK 1 T PO BID P naproxen 500 mg tablet TK 1 T PO BID P completed naproxen 500 MG Oral Tablet [place] ([facility]) Suprep Bowel Prep Kit 17.5 gram-3.13 gram-1.6 gram ora l solution MX AND DRK UTD [id number] completed Suprep Bowel Prep Kit 17.5 gram-3.13 gram-1.6 gram oral solution [place] ([facility]) atorvastatin 20 MG Oral Tablet atorvastatin 20 mg tabl et TK 1 T PO QD atorvastatin 20 mg tablet TK 1 T PO QD completed atorvastatin 20 MG Oral Tablet [place] ([facility]) Acyclovir 200 MG Oral Capsule acyclovir 200 mg capsule acycl ovir 200 mg capsule completed acyclovir 200 MG Oral Capsule [place] ([facility]) sitagliptin 25 MG Oral Tablet [Januvia] Januvia 25 mg tablet Januvia 25 mg tablet completed sitagliptin 25 MG Oral Tablet [Januvia] [place] ([facility]) sitagliptin 25 MG Oral Tablet [Januvia] Januvia 25 mg tablet Januvia 25 mg tablet completed sitagliptin 25 MG Oral Tablet [Januvia] [place] ([facility]) gabapentin 300 MG Oral Capsule gabapenti n 300 mg capsule TAKE 1 CAPSULE BY MOUTH THREE TIMES DAILY gabapentin 300 mg capsule TAKE 1 CAPSULE BY MOUTH THREE TIMES DAILY completed gabapentin 300 MG Oral Capsule [place] ([facility]) 1.5 ML Insulin Glargine 300 [...] insulin glargine 300 UNT/ML Pen Injector [Toujeo] [place] ([facility]) 0.5 ML dulaglutide 1.5 MG/ML Auto-Inject or [Trulicity] Trulicity 0.75 mg/0.5 mL subcutaneous pen injector Trulicity 0.75 mg/0.5 mL subcutaneous pen injector completed 0.5 ML dulaglu tide 1.5 MG/ML Auto-Injector [Trulicity] [place] ([facility]) gabapentin 300 MG Oral Capsule gabapenti n 300 mg capsule TAKE 1 CAPSULE BY MOUTH THREE TIMES DAILY gabapentin 300 mg capsule TAKE 1 CAPSULE BY MOUTH THREE TIMES DAILY completed gabapentin 300 MG Oral Capsule [place] ([facility]) sitagliptin 25 MG Oral Tablet [Januvia] Januvia 25 mg tablet Januvia 25 mg tablet completed sitagliptin 25 MG Oral Tablet [Januvia] [place] ([facility]) gabapentin 300 MG Oral Capsule gabapenti n 300 mg capsule TAKE 1 CAPSULE BY MOUTH THREE TIMES DAILY gabapentin 300 mg capsule TAKE 1 CAPSULE BY MOUTH THREE TIMES DAILY completed gabapentin 300 MG Oral Capsule [place] ([facility]) Suprep Bowel Prep Kit 17.5 gram-3.13 gram-1.6 gram ora l solution MX AND DRK UTD 488149 completed Suprep Bowel Prep Kit 17.5 gram-3.13 gram-1.6 gram oral solution [place] ([facility]) Cephalexin 500 MG Oral Capsule cephalexin 500 mg capsu le cephalexin 500 mg capsule completed cephalexin 500 MG Oral Capsule [place] ([facility]) Suprep Bowel Prep Kit 17.5 gram-3.13 gram-1.6 gram ora l solution AND DRRizwan UTD [id number] completed Suprep Bowel Prep Kit 17.5 gram-3.13 gram-1.6 gram oral solution [facility] ([facility]) 0.5 ML dulaglutide 1.5 MG/ML Auto-Inject or [Trulicity] Trulicity 0.75 mg/0.5 mL subcutaneous pen injector Trulicity 0.75 mg/0.5 mL subcutaneous pen injector completed 0.5 ML dulaglu tide 1.5 MG/ML Auto-Injector [Trulicity] [place] ([facility]) 1.5 ML Insulin Glargine 300 [...] insulin glargine 300 UNT/ML Pen Injector [Toujeo] [place] ([facility]) 3 ML Insulin Lispro 100 UNT/ML Pen Injec tor [Humalog] Humalog KwikPen (U-100) Insulin 100 unit/mL subcutaneous Humalog KwikPen (U-100) Insulin 100 unit /mL subcutaneous completed 3 ML insulin lispro 100 UNT/ML Pen Injector [Humalog] [facility] ([facility]) 3 ML liraglutide 6 MG/ML Pen Injector [V ictoza] Victoza 3-Antelmo 0.6 mg/0.1 mL (18 mg/3 mL) subcutaneous pen injector Victoza 3-Antelmo 0.6 mg/0.1 mL (18 mg/3 mL) subcutaneous pen injector completed 3 ML liraglutide 6 MG/ML Pen Injector [Victoza] [place] ([facility]) 1.5 ML Insulin Glargine 300 UNT/ML [...] glargine 300 UNT/ML Pen Injector [Toujeo] [facility] ([facility]) sitagliptin 25 MG Oral Tablet [Januvia] Januvia 25 mg tablet Januvia 25 mg tablet completed sitagliptin 25 MG Oral Tablet [Januvia] [facility] ([facility]) 3 ML Insulin Lispro 100 UNT/ML Pen Injec tor [Humalog] Humalog KwikPen (U-100) Insulin 100 unit/mL subcutaneous Humalog KwikPen (U-100) Insulin 100 unit /mL subcutaneous completed 3 ML insulin lispro 100 UNT/ML Pen Injector [Humalog] [facility] ([facility]) atorvastatin 20 MG Oral Tablet atorvastatin 20 mg tabl et TK 1 T PO QD atorvastatin 20 mg tablet TK 1 T PO QD completed atorvastatin 20 MG Oral Tablet [facility] ([facility]) Cyclobenzaprine hydrochloride 5 MG Oral Tablet cyclobenzaprine 5 mg tablet TAKE ONE TABLET BY MOUTH THREE TIMES DAILY NEEDED FOR MUSCLE SPASMS cyclobenzaprine 5 mg tablet TAKE ONE TABLET BY MOUTH THREE TIMES DAILY NEEDED FOR MUSCLE SPASMS completed cyclobenzaprine hydrochloride 5 MG Oral Tablet [facility] ([facility]) Suprep Bowel Prep Kit 17.5 gram-3.13 gram-1.6 gram ora l solution MX AND DRK UTD 978404 completed Suprep Bowel Prep Kit 17.5 gram-3.13 gram-1.6 gram oral solution [facility] ([facility]) sitagliptin 25 MG Oral Tablet [Januvia] Januvia 25 mg tablet Januvia 25 mg tablet completed sitagliptin 25 MG Oral Tablet [Januvia] [facility] ([facility]) Naproxen 500 MG Oral Tablet naproxen 500 mg tablet TK 1 T PO BID P naproxen 500 mg tablet TK 1 T PO BID P completed naproxen 500 MG Oral Tablet [facility] ([facility]) gabapentin 300 MG Oral Capsule gabapenti n 300 mg capsule TAKE 1 CAPSULE BY MOUTH THREE TIMES DAILY gabapentin 300 mg capsule TAKE 1 CAPSULE BY MOUTH THREE TIMES DAILY completed gabapentin 300 MG Oral Capsule [place] ([facility]) atorvastatin 10 MG Oral Tablet atorvastatin 10 mg tabl et atorvastatin 10 mg tablet completed atorvastatin 10 MG Oral Tablet [place] ([facility]) Naproxen 500 MG Oral Tablet naproxen 500 mg tablet TK 1 T PO BID P naproxen 500 mg tablet TK 1 T PO BID P completed naproxen 500 MG Oral Tablet [facility] ([facility]) Suprep Bowel Prep Kit 17.5 gram-3.13 gram-1.6 gram ora l solution MX AND DRK UTD [id number] completed Suprep Bowel Prep Kit 17.5 gram-3.13 gram-1.6 gram oral solution [facility] ([facility]) Suprep Bowel Prep Kit 17.5 gram-3.13 gram-1.6 gram ora l solution MX AND DRK UTD [id number] completed Suprep Bowel Prep Kit 17.5 gram-3.13 gram-1.6 gram oral solution [place] ([facility]) OneTouch Verio test strips U UTD TO TEST TID [id number] completed OneTouch Verio test strips [place] ([facility]) Suprep Bowel Prep Kit 17.5 gram-3.13 gram-1.6 gram ora l solution MX AND DRK UTD 041454 completed Suprep Bowel Prep Kit 17.5 gram-3.13 gram-1.6 gram oral solution [facility] ([facility]) 0.5 ML dulaglutide 1.5 MG/ML Auto-Inject or [Trulicity] Trulicity 0.75 mg/0.5 mL subcutaneous pen injector Trulicity 0.75 mg/0.5 mL subcutaneous pen injector completed 0.5 ML dulaglu tide 1.5 MG/ML Auto-Injector [Trulicity] [place] ([facility]) Suprep Bowel Prep Kit 17.5 gram-3.13 gram-1.6 gram ora l solution MX AND DRK UTD [id number] completed Suprep Bowel Prep Kit 17.5 gram-3.13 gram-1.6 gram oral solution [facility] ([facility]) atorvastatin 20 MG Oral Tablet atorvastatin 20 mg tabl et TK 1 T PO QD atorvastatin 20 mg tablet TK 1 T PO QD completed atorvastatin 20 MG Oral Tablet [facility] ([facility]) atorvastatin 10 MG Oral Tablet atorvastatin 10 mg tabl et atorvastatin 10 mg tablet completed atorvastatin 10 MG Oral Tablet [facility] ([facility]) 1.5 ML Insulin Glargine 300 [...] insulin glargine 300 UNT/ML Pen Injector [Toujeo] [place] ([facility]) sitagliptin 25 MG Oral Tablet [Januvia] Januvia 25 mg tablet Januvia 25 mg tablet completed sitagliptin 25 MG Oral Tablet [Januvia] [facility] ([facility]) gabapentin 300 MG Oral Capsule gabapenti n 300 mg capsule TAKE 1 CAPSULE BY MOUTH THREE TIMES DAILY gabapentin 300 mg capsule TAKE 1 CAPSULE BY MOUTH THREE TIMES DAILY completed gabapentin 300 MG Oral Capsule [place] ([facility]) Cyclobenzaprine hydrochloride 5 MG Oral Tablet cyclobenzaprine 5 mg tablet TAKE ONE TABLET BY MOUTH THREE TIMES DAILY NEEDED FOR MUSCLE SPASMS cyclobenzaprine 5 mg tablet TAKE ONE TABLET BY MOUTH THREE TIMES DAILY NEEDED FOR MUSCLE SPASMS completed cyclobenzaprine hydrochloride 5 MG Oral Tablet [facility] ([facility]) Naproxen 500 MG Oral Tablet naproxen 500 mg tablet TK 1 T PO BID P naproxen 500 mg tablet TK 1 T PO BID P completed naproxen 500 MG Oral Tablet [facility] ([facility]) Naproxen 500 MG Oral Tablet naproxen 500 mg tablet TK 1 T PO BID P naproxen 500 mg tablet TK 1 T PO BID P completed naproxen 500 MG Oral Tablet [facility] ([facility]) sitagliptin 50 MG Oral Tablet [Januvia] Januvia 50 mg tablet Januvia 50 mg tablet completed sitagliptin 50 MG Oral Tablet [Januvia] [facility] ([facility]) sitagliptin 25 MG Oral Tablet [Januvia] Januvia 25 mg tablet Januvia 25 mg tablet completed sitagliptin 25 MG Oral Tablet [Januvia] [place] ([facility]) Cyclobenzaprine hydrochloride 5 MG Oral Tablet cyclobenzaprine 5 mg tablet TAKE ONE TABLET BY MOUTH THREE TIMES DAILY NEEDED FOR MUSCLE SPASMS cyclobenzaprine 5 mg tablet TAKE ONE TABLET BY MOUTH THREE TIMES DAILY NEEDED FOR MUSCLE SPASMS completed cyclobenzaprine hydrochloride 5 MG Oral Tablet [facility] ([facility]) 3 ML Insulin Lispro 100 UNT/ML Pen Injec tor [Humalog] Humalog KwikPen (U-100) Insulin 100 unit/mL subcutaneous Humalog KwikPen (U-100) Insulin 100 unit /mL subcutaneous completed 3 ML insulin lispro 100 UNT/ML Pen Injector [Humalog] [place] ([facility]) Cyclobenzaprine hydrochloride 5 MG Oral Tablet cyclobenzaprine 5 mg tablet TAKE ONE TABLET BY MOUTH THREE TIMES DAILY NEEDED FOR MUSCLE SPASMS cyclobenzaprine 5 mg tablet TAKE ONE TABLET BY MOUTH THREE TIMES DAILY NEEDED FOR MUSCLE SPASMS completed cyclobenzaprine hydrochloride 5 MG Oral Tablet [facility] ([facility]) 3 ML Insulin Lispro 100 UNT/ML Pen Injec tor [Humalog] Humalog KwikPen (U-100) Insulin 100 unit/mL subcutaneous Humalog KwikPen (U-100) Insulin 100 unit /mL subcutaneous completed 3 ML insulin lispro 100 UNT/ML Pen Injector [Humalog] [place] ([facility]) atorvastatin 20 MG Oral Tablet atorvastatin 20 mg tabl et TK 1 T PO QD atorvastatin 20 mg tablet TK 1 T PO QD completed atorvastatin 20 MG Oral Tablet [place] ([facility]) Cyclobenzaprine hydrochloride 5 MG Oral Tablet cyclobenzaprine 5 mg tablet TAKE ONE TABLET BY MOUTH THREE TIMES DAILY NEEDED FOR MUSCLE SPASMS cyclobenzaprine 5 mg tablet TAKE ONE TABLET BY MOUTH THREE TIMES DAILY NEEDED FOR MUSCLE SPASMS completed cyclobenzaprine hydrochloride 5 MG Oral Tablet [place] ([facility]) Cyclobenzaprine hydrochloride 5 MG Oral Tablet cyclobenzaprine 5 mg tablet TAKE ONE TABLET BY MOUTH THREE TIMES DAILY NEEDED FOR MUSCLE SPASMS cyclobenzaprine 5 mg tablet TAKE ONE TABLET BY MOUTH THREE TIMES DAILY NEEDED FOR MUSCLE SPASMS completed cyclobenzaprine hydrochloride 5 MG Oral Tablet [facility] ([facility]) 3 ML Insulin Lispro 100 UNT/ML Pen Injec tor [Humalog] Humalog KwikPen (U-100) Insulin 100 unit/mL subcutaneous Humalog KwikPen (U-100) Insulin 100 unit /mL subcutaneous completed 3 ML insulin lispro 100 UNT/ML Pen Injector [Humalog] [facility] ([facility]) Naproxen 500 MG Oral Tablet naproxen 500 mg tablet TK 1 T PO BID P naproxen 500 mg tablet TK 1 T PO BID P completed naproxen 500 MG Oral Tablet [facility] ([facility]) Cyclobenzaprine hydrochloride 5 MG Oral Tablet cyclobenzaprine 5 mg tablet TK 1 T PO TID PRN FOR MUSCLE SPASMS cyclobenzaprine 5 mg tablet TK 1 T PO TI D PRN FOR MUSCLE SPASMS completed cyclobenzaprine hydrochloride 5 MG Oral Tablet [facility] ([facility]) gabapentin 300 MG Oral Capsule gabapenti n 300 mg capsule TAKE 1 CAPSULE BY MOUTH THREE TIMES DAILY gabapentin 300 mg capsule TAKE 1 CAPSULE BY MOUTH THREE TIMES DAILY completed gabapentin 300 MG Oral Capsule [facility] ([facility]) 1.5 ML Insulin Glargine 300 [...] glargine 300 UNT/ML Pen Injector [Toujeo] [facility] ([facility]) 3 ML Insulin Lispro 100 UNT/ML Pen Injec tor [Humalog] Humalog KwikPen (U-100) Insulin 100 unit/mL subcutaneous Humalog KwikPen (U-100) Insulin 100 unit /mL subcutaneous completed 3 ML insulin lispro 100 UNT/ML Pen Injector [Humalog] [facility] ([facility]) 1.5 ML Insulin Glargine 300 UNT/ML [...] glargine 300 UNT/ML Pen Injector [Toujeo] [facility] ([facility]) gabapentin 300 MG Oral Capsule gabapenti n 300 mg capsule TAKE 1 CAPSULE BY MOUTH THREE TIMES DAILY gabapentin 300 mg capsule TAKE 1 CAPSULE BY MOUTH THREE TIMES DAILY completed gabapentin 300 MG Oral Capsule [facility] ([facility]) atorvastatin 20 MG Oral Tablet atorvastatin 20 mg tabl et TK 1 T PO QD atorvastatin 20 mg tablet TK 1 T PO QD completed atorvastatin 20 MG Oral Tablet [place] ([facility]) Suprep Bowel Prep Kit 17.5 gram-3.13 gram-1.6 gram ora l solution MX AND DRK UTD [id number] completed Suprep Bowel Prep Kit 17.5 gram-3.13 gram-1.6 gram oral solution [facility] ([facility]) 0.5 ML dulaglutide 1.5 MG/ML Auto-Inject or [Trulicity] Trulicity 0.75 mg/0.5 mL subcutaneous pen injector Trulicity 0.75 mg/0.5 mL subcutaneous pen injector completed 0.5 ML dulaglu tide 1.5 MG/ML Auto-Injector [Trulicity] [facility] ([facility]) gabapentin 300 MG Oral Capsule gabapenti n 300 mg capsule TAKE 1 CAPSULE BY MOUTH THREE TIMES DAILY gabapentin 300 mg capsule TAKE 1 CAPSULE BY MOUTH THREE TIMES DAILY completed gabapentin 300 MG Oral Capsule [facility] ([facility]) Naproxen 500 MG Oral Tablet naproxen 500 mg tablet TK 1 T PO BID P naproxen 500 mg tablet TK 1 T PO BID P completed naproxen 500 MG Oral Tablet [facility] ([facility]) atorvastatin 20 MG Oral Tablet atorvastatin 20 mg tabl et TK 1 T PO QD atorvastatin 20 mg tablet TK 1 T PO QD completed atorvastatin 20 MG Oral Tablet [facility] ([facility]) 0.5 ML dulaglutide 1.5 MG/ML Auto-Inject or [Trulicity] Trulicity 0.75 mg/0.5 mL subcutaneous pen injector Trulicity 0.75 mg/0.5 mL subcutaneous pen injector completed 0.5 ML dulaglu tide 1.5 MG/ML Auto-Injector [Trulicity] [place] ([facility]) Suprep Bowel Prep Kit 17.5 gram-3.13 gram-1.6 gram ora l solution MX AND DRK UTD [id number] completed Suprep Bowel Prep Kit 17.5 gram-3.13 gram-1.6 gram oral solution [facility] ([facility]) 3 ML Insulin Lispro 100 UNT/ML Pen Injec tor [Humalog] Humalog KwikPen (U-100) Insulin 100 unit/mL subcutaneous Humalog KwikPen (U-100) Insulin 100 unit /mL subcutaneous completed 3 ML insulin lispro 100 UNT/ML Pen Injector [Humalog] [place] ([facility]) 0.5 ML dulaglutide 1.5 MG/ML Auto-Inject or [Trulicity] Trulicity 0.75 mg/0.5 mL subcutaneous pen injector Trulicity 0.75 mg/0.5 mL subcutaneous pen injector completed 0.5 ML dulaglu tide 1.5 MG/ML Auto-Injector [Trulicity] [place] ([facility]) Cyclobenzaprine hydrochloride 5 MG Oral Tablet cyclobenzaprine 5 mg tablet TAKE ONE TABLET BY MOUTH THREE TIMES DAILY NEEDED FOR MUSCLE SPASMS cyclobenzaprine 5 mg tablet TAKE ONE TABLET BY MOUTH THREE TIMES DAILY NEEDED FOR MUSCLE SPASMS completed cyclobenzaprine hydrochloride 5 MG Oral Tablet [facility] ([facility]) atorvastatin 20 MG Oral Tablet atorvastatin 20 mg tabl et TK 1 T PO QD atorvastatin 20 mg tablet TK 1 T PO QD completed atorvastatin 20 MG Oral Tablet [place] ([facility]) sitagliptin 50 MG Oral Tablet [Januvia] Januvia 50 mg tablet Januvia 50 mg tablet completed sitagliptin 50 MG Oral Tablet [Januvia] [place] ([facility]) atorvastatin 20 MG Oral Tablet atorvastatin 20 mg tabl et TK 1 T PO QD atorvastatin 20 mg tablet TK 1 T PO QD completed atorvastatin 20 MG Oral Tablet [facility] ([facility]) gabapentin 300 MG Oral Capsule gabapenti n 300 mg capsule TAKE 1 CAPSULE BY MOUTH THREE TIMES DAILY gabapentin 300 mg capsule TAKE 1 CAPSULE BY MOUTH THREE TIMES DAILY completed gabapentin 300 MG Oral Capsule [place] ([facility]) Cyclobenzaprine hydrochloride 5 MG Oral Tablet cyclobenzaprine 5 mg tablet TAKE ONE TABLET BY MOUTH THREE TIMES DAILY NEEDED FOR MUSCLE SPASMS cyclobenzaprine 5 mg tablet TAKE ONE TABLET BY MOUTH THREE TIMES DAILY NEEDED FOR MUSCLE SPASMS completed cyclobenzaprine hydrochloride 5 MG Oral Tablet [facility] ([facility]) 3 ML Insulin Lispro 100 UNT/ML Pen Injec tor [Humalog] Humalog KwikPen (U-100) Insulin 100 unit/mL subcutaneous Humalog KwikPen (U-100) Insulin 100 unit /mL subcutaneous completed 3 ML insulin lispro 100 UNT/ML Pen Injector [Humalog] [place] ([facility]) Suprep Bowel Prep Kit 17.5 gram-3.13 gram-1.6 gram ora l solution MX AND DRK UTD [id number] completed Suprep Bowel Prep Kit 17.5 gram-3.13 gram-1.6 gram oral solution [place] ([facility]) sitagliptin 25 MG Oral Tablet [Januvia] Januvia 25 mg tablet Januvia 25 mg tablet completed sitagliptin 25 MG Oral Tablet [Januvia] [place] ([facility]) gabapentin 300 MG Oral Capsule gabapenti n 300 mg capsule TAKE 1 CAPSULE BY MOUTH THREE TIMES DAILY gabapentin 300 mg capsule TAKE 1 CAPSULE BY MOUTH THREE TIMES DAILY completed gabapentin 300 MG Oral Capsule [place] ([facility]) OneTouch Verio test strips U UTD TO TEST TID [id number] completed OneTouch Verio test strips [place] ([facility]) Insurance Providers Payer name Policy type / Coverage type Policy ID Covered constitution party ID Covered constitution party's relationship to cortes Policy Cortes Plan Information MEDICARE A [id number] Self [id number] A MEDICARE [id number] Pushpa [id number] Medicare P [id number] S [id number] A Medicaid S [id number] S [id number] Medicaid S [id number] S [id number] MEDICAID M [id number] Self [id number] MEDICAID [id number] Pushpa [id number] MEDICAID -PHYSICIAN [id number] 1 8 [id number] [place] [id number] SP [id number] Medicare P [id number] S [id number] A MEDICAID [id number] SP [id number] MEDICARE CO [id number] 18 [id number] MEDICAID -RECURRING [id number] 1 [id number] MEDICARE -RECURRING [id number] 18 [id number] MEDICAID [facility] [id number] MEDICARE PART A [facility] [id number] 18 [id number] Medicare Commercial [id number] Self [id number] Medicaid Commercial [id number] Self [id number] Medicare Part A [place] Primary [id number] Self [id number] Medicaid Commercial [id number] Self [id number] Medicare Commercial [id number] [id number] Self [id number] Medicaid Commercial [id number] [id number] Self [id number] [place] Part [place] [id number] [id number] Self [id number] Medicaid Commercial [id number] MRN.[id number] Self [id number] Medicare Commercial [id number] MRN.[id number] Self [id number] Medicaid Commercial [id number] MRN.[id number] Self [id number] [place] [id number] Self [id number] Medicaid Commercial [id number] MRN.[id number] Self [id number] Medicare Dme Medigap Part B [id number] [id number] Self [id number] Medicaid Medicaid [id number] MRN.[id number] Self [id number] Medicare Medicare Primary [id number] MRN.[id number] Self [id number] Medicare Dme Medigap Part B [id number] MRN.[id number] Self [id number] Medicaid Medicaid [id number] MRN.[id number] 776a Self [id number] Medicare Medicare Primary [id number] [id number] Self [id number] Medicare Dme Medigap Part B [id number] MRN.[id number] Self [id number] Medicaid Medicaid [id number] MRN.[id number] Self [id number] Medicare Medicare Primary [id number] MRN.[id number] Self [id number] Medicaid [facility] Part B [id number] 2.16.840.1.088853.3.227.99 .991.168657.0 Self [id number] [place] [id number] 2.16.840.1.897225.3.227.99.991.816096.0 Self [id number] Medicaid Commercial [id number] 2.16840.1.314359.3.227.99.510.95336. 0 Self [id number] Medicare Commercial [id number] 2.840.1.430093.3.227.99.510.154 64.0 Self [id number] Medicaid Commercial [id number] 2.16840.1.345742.3.227.99.510.22357.0 Self [id number] Medicare Part A [place] [id number] 2.840.1.001806.3.227.99.510.00350.0 Self [id number] Medicaid [facility] Part B [id number] 2.840.1.360219.3.227.99 .991.663665.0 Self [id number] [place] Primary [id number] 2.16840.1.969143.3.227.99.991.038618.0 Self [id number] Medicare Commercial [id number] 2.16.840.1.731196.3.227.99.510.154 64.0 Self [id number] Medicaid Commercial [id number] 2.16.840.1.162442.3.227.99.510.65550. 0 Self [id number] Medicaid Commercial [id number] 2.16.840.1.111139.3.227.99.510.39597.0 Self [id number] [place] [id number] 2.16.840.1.936510.3.227.99.510.96390.0 Self [id number] Medicare Commercial [id number] 2.16.840.1.498422.3.227.99.510.154 64.0 Self [id number] Medicaid Commercial [id number] 2.16.840.1.420965.3.227.99.510.11527. 0 Self [id number] Medicaid Commercial [id number] 2.16840.1.475636.3.227.99.510.43753.0 Self [id number] Medicare Part A [place] Medicare Primary [id number] 2.16840.1.569371.3.227.99.510.89375.0 Self [id number] Medicare Commercial [id number] 2.16.840.1.291922.3.227.99.510.154 64.0 Self [id number] Medicaid Commercial [id number] 2.16840.1.064802.3.227.99.510.73952. 0 Self [id number] Medicaid Commercial [id number] 2.16840.1.828981.3.227.99.510.00123.0 Self [id number] [place] [id number] 2.16.840.1.809203.3.227.99.510.60148.0 Self [id number] Medicare Commercial [id number] 2.16.840.1.494725.3.227.99.510.154 64.0 Self [id number] Medicaid Commercial [id number] 2.16.840.1.989107.3.227.99.510.87534. 0 Self [id number] Medicaid Commercial [id number] 2.16.840.1.700042.3.227.99.510.71550.0 Self [id number] [place] [id number] 2.16.840.1.743108.3.227.99.510.18479.0 Self [id number] Medicaid [facility] [id number] 2.16.840.1.547944.3.22 7.99.510.67697.0 Self [id number] [place] [id number] 2.16.840.1.467780.3.227.99.510.68332.0 Self [id number] Medicaid [facility] [place] [id number] 2.16.840.1.358098.3.22 7.99.510.85364.0 Self [id number] Medicare Part A [place] Medicare Primary [id number] 2.16.840.1.210971.3.227.99.510.57641.0 Self [id number] Medicaid [facility] Medicaid [id number] 2.16.840.1.945561.3.22 7.99.510.02146.0 Self [id number] [place] [id number] 2.16.840.1.724793.3.227.99.510.60161.0 Self 9 [id number] Medicaid [facility] Medicaid [id number] 2.16.840.1.154562.3.22 7.99.510.22438.0 Self [id number] [place] [id number] 2.16.840.1.804033.3.227.99.510.94175.0 Self [id number] Medicaid [facility] Medicaid [id number] 2.16.840.1.265516.3.22 7.99.510.34423.0 Self [id number] [place] [id number] 2.16.840.1.584415.3.227.99.510.27107.0 Self [id number] Medicaid [facility] Medicaid [id number] 2.16.840.1.859254.3.22 7.99.510.37266.0 Self [id number] [place] [id number] 2.16.840.1.788465.3.227.99.510.18213.0 Self [id number] Medicaid [facility] Medicaid [id number] 2.16.840.1.817864.3.22 7.99.510.58902.0 Self [id number] [place] [id number] 2.16.840.1.761370.3.227.99.510.88710.0 Self [id number] MEDICARE [id number] [place] Medig[place] Part B [id number] 2.16.840.1.600669.3.227.99 .6619.12969.0 Self [id number] [place] Primary [id number] 2.16.840.1.818909.3.227.99.6619.18372.0 Self [id number] Medicaid [facility] Medicaid [id number] 2.16.840.1.484625.3.22 7.99.510.99540.0 Self [id number] [place] [id number] 2.16.840.1.266771.3.227.99.510.65484.0 Self [id number] MEDICARE PART A -O/P [id number] Medicaid [facility] Medicaid [id number] 2.16.840.1.399438.3.22 7.99.510.49810.0 Self [id number] [place] [id number] 2.16.840.1.604651.3.227.99.510.74246.0 Self [id number] Medicaid [facility] Medicaid [id number] 2.16.840.1.242681.3.22 7.99.510.08848.0 Self [id number] [place] [id number] 2.16.840.1.290273.3.227.99.510.67638.0 Self [id number] Medicaid [facility] Medicaid [id number] 2.16.840.1.404380.3.22 7.99.510.21338.0 Self [id number] [place] [id number] 2.16.840.1.886924.3.227.99.510.91850.0 Self 9 [id number] Medicaid [facility] Medicaid [id number] 2.16.840.1.657166.3.22 7.99.510.92555.0 Self [id number] [place] [id number] 2.16.840.1.728343.3.227.99.510.80118.0 Self 1 [id number] Medicaid [facility] Medicaid [id number] 2.16.840.1.637769.3.22 7.99.510.73067.0 Self [id number] [place] [id number] 2.16.840.1.912818.3.227.99.510.25924.0 Self 1 [id number] Medicaid [facility] Medicaid [id number] 2.16.840.1.341441.3.22 7.99.510.85633.0 Self [id number] [place] [id number] 2.16.840.1.237831.3.227.99.510.69736.0 Self 1 [id number] Medicaid [facility] Medicaid [id number] 2.16.840.1.494453.3.22 7.99.510.20003.0 Self [id number] [place] [id number] 2.16.840.1.922321.3.227.99.510.10729.0 Self 1 [id number] Medicare Dme Medigap Part B [id number] 2.16.840.1.706324.3.227.99 .936.41060.0 Self [id number] Medicaid Medicaid [id number] 2.840.1.758885.3.227.99.936.10387.0 S elf [id number] Medicare Medicare Primary [id number] 2.840.1.587990.3.227. 99.936.61579.0 Self [id number] Medicare Dme Medigap Part B [id number] 2.840.1.664575.3.227.99 .936.33662.0 Self [id number] Medicaid Medicaid [id number] 2.840.1.954215.3.227.99.936.15259.0 S elf [id number] Medicare Medicare Primary [id number] 2.840.1.247757.3.227. 99.936.19279.0 Self [id number] Medicare Dme Medigap Part B [id number] .0.1.238266.3.227.99 .936.84503.0 Self [id number] Medicaid Medicaid [id number] .840.1.907673.3.227.99.936.44232.0 S elf [id number] Medicare Medicare Primary [id number] 2.840.1.324029.3.227. 99.936.18498.0 Self [id number] Medicare Dme Medigap Part B [id number] .840.1.336180.3.227.99 .936.27905.0 Self [id number] Medicaid Medicaid [id number] 2.840.1.444804.3.227.99.936.29199.0 S elf [id number] Medicare Medicare Primary [id number] 2.840.1.005574.3.227. 99.936.45646.0 Self [id number] Medicare Dme Medigap Part B [id number] 2.840.1.142723.3.227.99 .936.81215.0 Self [id number] Medicaid Medicaid [id number] 2.16.840.1.237917.3.227.99.936.12135.0 S elf [id number] Medicare Medicare Primary [id number] 2.16.840.1.594709.3.227. 99.936.19482.0 Self [id number] Medicare Dme Medigap Part B [id number] 2.16.840.1.742687.3.227.99 .936.01309.0 Self [id number] Medicaid Medicaid [id number] 2.16.840.1.862033.3.227.99.936.48640.0 S elf [id number] Medicare Medicare Primary [id number] 2.16.840.1.518712.3.227. 99.936.70233.0 Self [id number] Medicaid Medicaid 2.16.840.1.773813.3.227.99.936.37211.0 S elf Medicare Medicare Primary 2.16.840.1.528503.3.227.99.936.23 302.0 Self HMO BLUE [id number] SP [id number] BLUE CROSS SAAVEDRA PLAN [id number] SP [id number] MEDICAID S [id number] S [id number] MEDICARE P [id number] S [id number] A HMO BLUE [id number] SP [id number] [facility] [id number] SP [id number] HEALTH WELFARE BENEFIT SYS [id number] SP [id number] [facility] MEDICAID [id number] SP [id number] MEDICARE [id number] SP [id number] MEDICARE PART A -O/P [id number] 18 [id number] MEDICAID -O/P [id number] [place] [id number] 18 [id number] MEDICARE PART A [facility] [id number] 18 [id number] [place]ID [place] [id number] 18 [id number] Problems, Conditions, and Diagnoses Code Display Name Description Problem Type Effective Dates Data Source(s) Z5321 Procedure and treatment not carried out due to patient leaving prior to being seen by health care provider Procedure and treatment not carried out due to patient leaving prior to being seen by health care provider Diagnosis 09/15/2021 12:55:00 PM EDT [facility] Z1152 ENCOUNTER FOR SCREENING FOR COVID-19 ENCOUNTER F OR SCREENING FOR COVID-19 Diagnosis 09/12/2021 09:43:00 AM EDT [facility] M542 Cervicalgia Cervicalgia Diagnosis 03/11/2021 02:01:00 PM EDT [facility] F43.9 Reaction to severe stress, unspecified 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 M21.619 Bunion Bunion Problem 03/20/2021 12:00:00 AM ED T [facility] ([facility] [id number] SNOMED CT Concept SNOMED CT Concept Problem 01/09 12:00:00 AM EST - 02/15/2021 12:00:00 AM EDT [facility] ([facility]) [id number] Finding of urine substance level Finding of Urin e Substance Level Problem 01/09/2018 12:00:00 AM EST - 09/30/2020 12:00:00 AM JENNIFER MENDEZ ([facility]) [id number] SNOMED CT Concept SNOMED CT Concept Problem 01/09 12:00:00 AM EST - 02/15/2021 12:00:00 AM EDT [facility] ([facility]) [id number] Finding of urine substance level Finding of Urin e Substance Level Problem 01/09/2018 12:00:00 AM EST - 09/30/2020 12:00:00 AM JENNIFER MENDEZ ([facility]) [id number] SNOMED CT Concept SNOMED CT Concept Problem 01/09 12:00:00 AM EST - 02/15/2021 12:00:00 AM EDT [facility] ([facility]) [id number] Finding of urine substance level Finding of Urin e Substance Level Problem 01/09/2018 12:00:00 AM EST - 09/30/2020 12:00:00 AM JENNIFER MENDEZ ([facility]) [id number] SNOMED CT Concept SNOMED CT Concept Problem 01/09 12:00:00 AM EST - 02/15/2021 12:00:00 AM EDT [facility] ([facility]) [id number] Finding of urine substance level Finding of Urin e Substance Level Problem 01/09/2018 12:00:00 AM EST - 09/30/2020 12:00:00 AM JENNIFER MENDE[facility] ([facility]) [id number] SNOMED CT Concept SNOMED CT Concept Problem 01/09 12:00:00 AM EST - 02/15/2021 12:00:00 AM EDT [facility] ([facility]) [id number] Finding of urine substance level Finding of Urin e Substance Level Problem 01/09/2018 12:00:00 AM EST - 09/30/2020 12:00:00 AM JENNIFER MENDEZ ([facility]) [id number] SNOMED CT Concept SNOMED CT Concept Problem 01/09 12:00:00 AM EST - 02/15/2021 12:00:00 AM EDT [facility] ([facility]) [id number] Finding of urine substance level Finding of Urin e Substance Level Problem 01/09/2018 12:00:00 AM EST - 09/30/2020 12:00:00 AM JENNIFER MENDEZ ([facility]) [id number] SNOMED CT Concept SNOMED CT Concept Problem 01/09 12:00:00 AM EST - 02/15/2021 12:00:00 AM EDT [facility] ([facility]) [id number] Finding of urine substance level Finding of Urin e Substance Level Problem 01/09/2018 12:00:00 AM EST - 09/30/2020 12:00:00 AM JENNIFER MENDEZ ([facility]) [id number] SNOMED CT Concept SNOMED CT Concept Problem 01/09 12:00:00 AM EST - 02/15/2021 12:00:00 AM EDBakari MENDEZ ([facility]) [id number] Finding of urine substance level Finding of Urin e Substance Level Problem 01/09/2018 12:00:00 AM EST - 09/30/2020 12:00:00 AM JENNIFER MENDEZ ([facility]) 684291853 SNOMED CT Concept SNOMED CT Concept Problem 01/09 12:00:00 AM EST - 02/15/2021 12:00:00 AM EDT [facility] ([facility]) [id number] Finding of urine substance level Finding of Urin e Substance Level Problem 01/09/2018 12:00:00 AM EST - 09/30/2020 12:00:00 AM JENNIFER MENDEZ ([facility]) [id number] Finding of urine substance level Finding of Urin e Substance Level Problem 01/09/2018 12:00:00 AM EST - 09/30/2020 12:00:00 AM JENNIFER MENDEZ ([facility]) 202975759 SNOMED CT Concept SNOMED CT Concept Problem 01/09 12:00:00 AM EST - 02/15/2021 12:00:00 AM EDT [facility] ([facility]) [id number] Finding of urine substance level Finding of Urin e Substance Level Problem 01/09/2018 12:00:00 AM EST - 09/30/2020 12:00:00 AM JENNIFER MENDEZ ([facility]) [id number] SNOMED CT Concept SNOMED CT Concept Problem 01/09 12:00:00 AM EST - 02/15/2021 12:00:00 AM EDBakari MENDEZ ([facility]) [id number] Finding of urine substance level Finding of Urin e Substance Level Problem 01/09/2018 12:00:00 AM EST - 09/30/2020 12:00:00 AM ES T [facility] ([facility]) [id number] Renal function tests abnormal Renal Function Tests Abn ormal Problem 03/03/2016 12:00:00 AM EDT - 03/10/2021 12:00:00 AM EDT [facility] ([facility]) 298218805 Renal function tests abnormal Renal Function Tests Abn ormal Problem 03/03/2016 12:00:00 AM EDT - 03/10/2021 12:00:00 AM EDT [facility] ([facility]) 485770922 Renal function tests abnormal Renal Function Tests Abn ormal Problem 03/03/2016 12:00:00 AM EDT - 03/10/2021 12:00:00 AM EDT [facility] ([facility]) [id number] Renal function tests abnormal Renal Function Tests Abn ormal Problem 03/03/2016 12:00:00 AM EDT - 03/10/2021 12:00:00 AM EDT [facility] ([facility]) [id number] Renal function tests abnormal Renal Function Tests Abn ormal Problem 03/03/2016 12:00:00 AM EDT - 03/10/2021 12:00:00 AM EDT [facility] ([facility]) 707845964 Renal function tests abnormal Renal Function Tests Abn ormal Problem 03/03/2016 12:00:00 AM EDT - 03/10/2021 12:00:00 AM EDT [facility] ([facility]) 171842011 Renal function tests abnormal Renal Function Tests Abn ormal Problem 03/03/2016 12:00:00 AM EDT - 03/10/2021 12:00:00 AM EDT [facility] ([facility]) 797258786 Renal function tests abnormal Renal Function Tests Abn ormal Problem 03/03/2016 12:00:00 AM EDT - 03/10/2021 12:00:00 AM EDT [facility] ([facility]) 851192039 SNOMED CT Concept SNOMED CT Concept Problem 02/02 12:00:00 AM EDT - 02/15/2021 12:00:00 AM EDT [facility] ([facility]) 061481085 Clinical finding Clinical Finding Problem 016 12:00:00 AM EDT - 02/15/2021 12:00:00 AM EDT [facility] ([facility]) 915011732 SNOMED CT Concept SNOMED CT Concept Problem 02/02 12:00:00 AM EDT - 09/30/2020 12:00:00 AM EST [facility] ([facility]) [id number] Procedure by method Procedure by Method Problem 0 02/03/2016 12:00:00 AM EDT - 09/30/2020 12:00:00 AM EST [facility] ([facility]) [id number] Difficulty passing urine Difficulty Passing Urine Prob allan 02/03/2016 12:00:00 AM EDT - 09/30/2020 12:00:00 AM EST [facility] ([facility]) [id number] SNOMED CT Concept SNOMED CT Concept Problem 02/02 12:00:00 AM EDT - 02/15/2021 12:00:00 AM EDT [facility] ([facility]) [id number] Clinical finding Clinical Finding Problem 016 12:00:00 AM EDT - 02/15/2021 12:00:00 AM EDT [facility] ([facility]) [id number] SNOMED CT Concept SNOMED CT Concept Problem 02/02 12:00:00 AM EDT - 09/30/2020 12:00:00 AM EST [facility] ([facility]) [id number] Procedure by method Procedure by Method Problem 0 02/03/2016 12:00:00 AM EDT - 09/30/2020 12:00:00 AM EST [facility] ([facility]) [id number] Difficulty passing urine Difficulty Passing Urine Prob allan 02/03/2016 12:00:00 AM EDT - 09/30/2020 12:00:00 AM EST [facility] ([facility]) [id number] SNOMED CT Concept SNOMED CT Concept Problem 02/02 12:00:00 AM EDT - 02/15/2021 12:00:00 AM EDT [facility] ([facility]) [id number] Clinical finding Clinical Finding Problem 016 12:00:00 AM EDT - 02/15/2021 12:00:00 AM EDT [facility] ([facility]) [id number] SNOMED CT Concept SNOMED CT Concept Problem 02/02 12:00:00 AM EDT - 09/30/2020 12:00:00 AM EST [facility] ([facility]) [id number] Procedure by method Procedure by Method Problem 0 02/03/2016 12:00:00 AM EDT - 09/30/2020 12:00:00 AM EST [facility] ([facility]) [id number] Difficulty passing urine Difficulty Passing Urine Prob allan 02/03/2016 12:00:00 AM EDT - 09/30/2020 12:00:00 AM EST [facility] ([facility]) [id number] SNOMED CT Concept SNOMED CT Concept Problem 02/02 12:00:00 AM EDT - 02/15/2021 12:00:00 AM EDT [facility] ([facility]) [id number] Clinical finding Clinical Finding Problem 016 12:00:00 AM EDT - 02/15/2021 12:00:00 AM EDT [facility] ([facility]) [id number] SNOMED CT Concept SNOMED CT Concept Problem 02/02 12:00:00 AM EDT - 09/30/2020 12:00:00 AM EST [facility] ([facility]) [id number] Procedure by method Procedure by Method Problem 0 02/03/2016 12:00:00 AM EDT - 09/30/2020 12:00:00 AM EST [facility] ([facility]) [id number] Difficulty passing urine Difficulty Passing Urine Prob allan 02/03/2016 12:00:00 AM EDT - 09/30/2020 12:00:00 AM EST [facility] ([facility]) [id number] SNOMED CT Concept SNOMED CT Concept Problem 02/02 12:00:00 AM EDT - 02/15/2021 12:00:00 AM EDT [facility] ([facility]) [id number] Clinical finding Clinical Finding Problem 03/17/2 016 12:00:00 AM EDT - 02/15/2021 12:00:00 AM EDT [facility] ([facility]) [id number] SNOMED CT Concept SNOMED CT Concept Problem 02/02 12:00:00 AM EDT - 09/30/2020 12:00:00 AM EST VANESSA ([facility]) [id number] Procedure by method Procedure by Method Problem 0 02/03/2016 12:00:00 AM EDT - 09/30/2020 12:00:00 AM EST VANESSA ([facility]) [id number] Difficulty passing urine Difficulty Passing Urine Prob allan 02/03/2016 12:00:00 AM EDT - 09/30/2020 12:00:00 AM EST VANESSA ([facility]) [id number] SNOMED CT Concept SNOMED CT Concept Problem 02/02 12:00:00 AM EDT - 02/15/2021 12:00:00 AM EDT VANESSA ([facility]) [id number] Clinical finding Clinical Finding Problem 016 12:00:00 AM EDT - 02/15/2021 12:00:00 AM EDT VANESSA ([facility]) [id number] SNOMED CT Concept SNOMED CT Concept Problem 02/02 12:00:00 AM EDT - 09/30/2020 12:00:00 AM EST VANESSA ([facility]) [id number] Procedure by method Procedure by Method Problem 0 02/03/2016 12:00:00 AM EDT - 09/30/2020 12:00:00 AM EST VANESSA ([facility]) [id number] Difficulty passing urine Difficulty Passing Urine Prob allan 02/03/2016 12:00:00 AM EDT - 09/30/2020 12:00:00 AM EST VANESSA ([facility]) [id number] SNOMED CT Concept SNOMED CT Concept Problem 02/02 12:00:00 AM EDT - 02/15/2021 12:00:00 AM EDT VANESSA ([facility]) [id number] Clinical finding Clinical Finding Problem 016 12:00:00 AM EDT - 02/15/2021 12:00:00 AM EDT [facility]ANESSA ([facility]) [id number] SNOMED CT Concept SNOMED CT Concept Problem 02/02 12:00:00 AM EDT - 09/30/2020 12:00:00 AM EST VANESSA ([facility]) [id number] Procedure by method Procedure by Method Problem 0 02/03/2016 12:00:00 AM EDT - 09/30/2020 12:00:00 AM EST VANESSA ([facility]) [id number] Difficulty passing urine Difficulty Passing Urine Prob allan 02/03/2016 12:00:00 AM EDT - 09/30/2020 12:00:00 AM EST VANESSA ([facility]) [id number] Difficulty passing urine Difficulty Passing Urine Prob allan 02/03/2016 12:00:00 AM EDT - 09/30/2020 12:00:00 AM EST VANESSA ([facility]) [id number] SNOMED CT Concept SNOMED CT Concept Problem 02/02 12:00:00 AM EDT - 02/15/2021 12:00:00 AM EDT [facility]ANESSA ([facility]) [id number] Clinical finding Clinical Finding Problem 016 12:00:00 AM EDT - 02/15/2021 12:00:00 AM EDT [facility] ([facility]) [id number] SNOMED CT Concept SNOMED CT Concept Problem 02/02 12:00:00 AM EDT - 09/30/2020 12:00:00 AM EST VANESSA ([facility]) [id number] Procedure by method Procedure by Method Problem 0 02/03/2016 12:00:00 AM EDT - 09/30/2020 12:00:00 AM EST [facility]ESSA ([facility]) [id number] Difficulty passing urine Difficulty Passing Urine Prob allan 02/03/2016 12:00:00 AM EDT - 09/30/2020 12:00:00 AM EST [facility]ANESSA ([facility]) [id number] SNOMED CT Concept SNOMED CT Concept Problem 02/02 12:00:00 AM EDT - 09/30/2020 12:00:00 AM EST [facility]ESSA ([facility]) [id number] Procedure by method Procedure by Method Problem 0 02/03/2016 12:00:00 AM EDT - 09/30/2020 12:00:00 AM EST [facility]ESSA ([facility]) [id number] Difficulty passing urine Difficulty Passing Urine Prob allan 02/03/2016 12:00:00 AM EDT - 09/30/2020 12:00:00 AM EST [facility]ESSA ([facility]) [id number] SNOMED CT Concept SNOMED CT Concept Problem 02/02 12:00:00 AM EDT - 02/15/2021 12:00:00 AM EDT [facility]ES[facility] ([facility]) [id number] Clinical finding Clinical Finding Problem 016 12:00:00 AM EDT - 02/15/2021 12:00:00 AM EDT [facility] ([facility]) [id number] SNOMED CT Concept SNOMED CT Concept Problem 02/02 12:00:00 AM EDT - 09/30/2020 12:00:00 AM EST [facility]ESSA ([facility]) [id number] Procedure by method Procedure by Method Problem 0 02/03/2016 12:00:00 AM EDT - 09/30/2020 12:00:00 AM EST [facility]ANESSA ([facility]) [id number] Difficulty passing urine Difficulty Passing Urine Prob allan 02/03/2016 12:00:00 AM EDT - 09/30/2020 12:00:00 AM EST [facility]ANESSA ([facility]) [id number] SNOMED CT Concept SNOMED CT Concept Problem 02/02 12:00:00 AM EDT - 02/15/2021 12:00:00 AM EDT [facility]ESSA ([facility]) [id number] Clinical finding Clinical Finding Problem 016 12:00:00 AM EDT - 02/15/2021 12:00:00 AM EDT [facility]SA ([facility]) [id number] SNOMED CT Concept SNOMED CT Concept Problem 02/02 12:00:00 AM EDT - 09/30/2020 12:00:00 AM EST [facility]ESSA ([facility]) [id number] Procedure by method Procedure by Method Problem 0 02/03/2016 12:00:00 AM EDT - 09/30/2020 12:00:00 AM KAREEM MENDEZ ([facility]) [id number] Difficulty passing urine Difficulty Passing Urine Prob allan 02/03/2016 12:00:00 AM EDT - 09/30/2020 12:00:00 AM EST [facility]ANESSA ([facility]) [id number] SNOMED CT Concept SNOMED CT Concept Problem 02/02 12:00:00 AM EDT - 02/15/2021 12:00:00 AM EDT [facility]SA ([facility]) [id number] Clinical finding Clinical Finding Problem 016 12:00:00 AM EDT - 02/15/2021 12:00:00 AM EDT [facility]ESSA ([facility]) [id number] SNOMED CT Concept SNOMED CT Concept Problem 02/02 12:00:00 AM EDT - 09/30/2020 12:00:00 AM KAREEM MENDEZ ([facility]) [id number] Procedure by method Procedure by Method Problem 0 02/03/2016 12:00:00 AM EDT - 09/30/2020 12:00:00 AM EST VANESSA ([facility]) Surgeries/Procedures Procedure Description Date Indications Data Source(s) OFFICE OUTPATIENT VISIT 25 MINUTES 09/07/2021 12:00:00 AM EDT [facility] ([facility]) Extended Individual Psychotherapy - 45 min 06/28/2021 12:00:00 AM EDT - 06/28/2021 12:00:00 AM EDT [facility] ([facility]) Extended Individual Psychotherapy - 45 min 12:00:00 AM EDT [facility] ([facility]) Telemed Diagnostic Eval 06/07/2021 12:00 :00 AM EDT - 06/07/2021 12:00:00 AM EDT [facility] ([facility]) Telemed Diagnostic Eval 06/07/2021 12:00:00 AM EDT [facility] ([facility]) OFFICE OUTPATIENT VISIT 25 MINUTES 05/10/2021 12:00:00 AM EDT MEDERIKA ([facility]) MRI SPINAL CANAL CERVICAL W/O CONTRAST MATRL 12:00:00 AM EDT MEDENT ([facility] ) MRI SPINAL CANAL CERVICAL W/O CONTRAST MATRL 12:00:00 AM EDT [facility] ([facility] ) OFFICE OUTPATIENT VISIT 25 MINUTES 04/07/2021 12:00:00 AM EDT [facility] ([facility] ) OFFICE OUTPATIENT VISIT 15 MINUTES 04/06/2021 12:00:00 AM EDT [facility] ([facility]) Needle electromyography, each extremity, with related [...] EDT [facility] ([facility] ) Nerve Conduction 11-12 Studies 03/28/2021 12:00:00 AM EDT [facility] ([facility] ) OFFICE OUTPATIENT NEW 30 MINUTES 03/11/2021 12:00:00 A M EDT [facility] ([facility]) Results ID Date Data Source [id number] 09/20/2021 11:57:00 AM EDT VANESSA ([facility]) Name Value Range Interpretation Code Description Data Sandra rce(s) Supporting Document(s) Hemoglobin A1c/Hemoglobin.total in Blood 11.5 % Abnormal (applies to non- numeric results) Hba1C VANESSA ([facility]) ID Date Data Source [id number] 09/12/2021 09:30:00 AM EDT [facility] Name Value Range Interpretation Code Description Data Sandra rce(s) Supporting Document(s) SARS coronavirus 2 RNA Not Detected [facility] [place] This lab was ordered by [facility] Sunday vázquez and reported by [employer]. ID Date Data Source [id number] 09/12/2021 09:30:00 AM EDT MEDENT ([facility]) Name Value Range Interpretation Code Description Data Sandra rce(s) Supporting Document(s) Laboratory test finding (navigational concept) Laboratory test result [facility] ([facility]) Sars-CoV-2, Abhinav Laboratory test result [facility] ([facility]) This nucleic acid amplification test was developed and its performance characteristics determined by [employer]. Nucleic acid amplification tests include RT-PCR and [...] in this assay. ID Date Data Source [id number] 09/14/2021 06:27:00 AM EDT [facility] Name Value Range Interpretation Code Description Data Sandra rce(s) Supporting Document(s) SARS-CoV-2, ABHINAV Not Detected Not Detected [facility] This nucleic acid amplification test was developed and its performancecharacteristics determined by [employer]. Nucleic acidamplification tests include RT-PCR and TMA. [...] assay. SARS-CoV-2, ABHINAV 2 DAY TAT Performed [facility] ID Date Data Source [id number] 09/07/2021 08:50:00 AM EDT MEDENT ([facility]) Name Value Range Interpretation Code Description Data Sandra rce(s) Supporting Document(s) Color of Urine Laboratory test result [facility]ENT ([facility]) Spec Nogal 1.010 1.001-1.030 MEDENT ([facility]) pH of Urine by Test strip 5 5-9 MEDE NT ([facility]) Appearance of Urine Laboratory test result [facility] ([facility]) Leukocytes Laboratory test result [facility] ([facility]) Nitrate [Presence] in Urine Laboratory test result [facility] ([facility]) Protein [Presence] in Urine by Test strip Laboratory test result [facility] ([facility]) Ketones [Presence] in Urine by Test strip Laboratory test result [facility] ([facility]) Urobilinogen Laboratory test result [facility] ([facility]) Inhouse Glucose 1000 Above high normal ME DENT ([facility]) Blood type and Indirect antibody screen panel - Blood 250 Above high normal [facility] ([facility]) Bilirubin.total [Presence] in Urine by Test strip Laboratory test res ult [facility] ([facility]) ID Date Data Source [id number] 07/06/2021 12:00:00 AM EDT [facility]ANESSA ([facility]) Name Value Range Interpretation Code Description Data Sandra rce(s) Supporting Document(s) Bacteria identified in Urine by Culture Reflexive Urine Culture VANESSA ([facility]) ID Date Data Source [id number] 07/06/2021 12:00:00 AM EDT VANESSA ([facility]) Name Value Range Interpretation Code Description Data Sandra rce(s) Supporting Document(s) Specific gravity of Urine by Test strip 1.001-1.035 A eddie high normal Specific [place]og[place] VANESSA ([facility]) Appearance of Urine clear clear Appearance ATHEN A ([facility]) Color of Urine yellow yellow Color VANESSA ([facility]) Glucose [Presence] in Urine by Test strip 3+ negati ve Abnormal (applies to non- numeric results) Glucose VANESSA ([facility]) Hemoglobin [Presence] in Urine by Test strip negative negative Occult Blood VANESSA ([facility]) pH of Urine by Test strip 5.0-8.0 Ph VANESSA ([facility]) Bilirubin.total [Presence] in Urine by Test strip negative negative Bilirubin VANESSA ([facility]) Ketones [Presence] in Urine by Test strip negative negative Ketones VAN[facility]SA ([facility]) Leukocyte esterase [Presence] in Urine by Test strip negative n egative Leukocyte Esterase VANESSA ([facility]) Erythrocytes [#/area] in Urine sediment by Microscopy high power field none seen < or = 2 Rbc VANESSA ([facility]) Nitrite [Presence] in Urine by Test strip negative negative Nitrite VANESSA ([facility]) Leukocytes [#/area] in Urine sediment by Microscopy high pow er field none seen < or = 5 Wbc V[facility]SA ([facility]) Protein [Presence] in Urine by Test strip negative negative Protein VANESSA ([facility]) Epithelial cells.squamous [#/area] in Ur ine sediment by Microscopy high power field none seen < or = 5 Squamous Epithelial Cells AT [facility] ([facility]) Bacteria [#/area] in Urine sediment by Microscopy high power field none seen none seen Bacteria [facility]SA ([facility]) Hyaline casts [#/area] in Urine sediment by Microscopy low power field none seen none seen Hyaline Cast [place] ([facility]) ID Date Data Source [id number] 07/06/2021 12:00:00 AM EDT [place] ([facility]) Name Value Range Interpretation Code Description Data Sandra rce(s) Supporting Document(s) Glucose [Mass/volume] in Serum or Plasma 308 mg/dL 65-99 Above high normal Glucose VANESSA ([facility]) Urea nitrogen [Mass/volume] in Serum or Plasma 15 mg/dL 7-25 Urea Nitrogen (BUN) VANESSA ([facility]) Creatinine [Mass/volume] in Serum or Plasma 0.93 mg/dL 0.70-1.33 Creatinine [place] ([facility]) Glomerular filtration rate/1.73 sq M.pre dicted among blacks [Volume Rate/Area] in Serum, Plasma or Blood by Creatinine-based formula (CKD-EPI) 110 mL/min/1.73m2 > or = 60 eGFR VANESSA ([facility]) Glomerular filtration rate/1.73 sq M.pre dicted among non-blacks [Volume Rate/Area] in Serum, Plasma or Blood by Creatinine-based formula (CKD-EPI) 95 mL/min/1.73m2 > or = 60 eGFR Non-afr. [place] VANESSA ([facility]) Urea nitrogen/Creatinine [Mass Ratio] in Serum or Plasma not applic able 6-22 BUN/creatinine Ratio VANESSA ([facility]) Sodium [Moles/volume] in Serum or Plasma 135 mmol/L 135-146 Sodium VANESSA ([facility]) Potassium [Moles/volume] in Serum or Plasma 4.0 mmol/L 3.5-5.3 Potassium VAN[facility]SA ([facility]) Chloride [Moles/volume] in Serum or Plasma 102 mmol/L 98-110 Chloride VAN[facility]SA ([facility]) Carbon dioxide, total [Moles/volume] in Serum or Plasma 27 mmol/L 20-32 Carbon Dioxide VANESSA ([facility]) Protein [Mass/volume] in Serum or Plasma 6.8 g/dL 6.1-8.1 [facility], [facility] Calcium [Mass/volume] in Serum or Plasma 8.9 mg/dL 8.6-10.3 Calcium [facility] ([facility]) Globulin [Mass/volume] in Serum by calculation 2.7 g/dL_(calc) 1.9- 3.7 Globulin [facility]SA ([facility]) Albumin [Mass/volume] in Serum or Plasma 4.1 g/dL 3.6-5.1 Albumin V[facility]SA ([facility]) Albumin/Globulin [Mass Ratio] in Serum or Plasma 1.5 (calc) 1.0-2 .5 Albumin/globulin Ratio V[facility]ESSA ([facility]) Alkaline phosphatase [Enzymatic activity/volume] in Serum or Plasma 73 U/L 35-144 Alkaline Phosphatase V[facility]SA ([facility]) Bilirubin.total [Mass/volume] in Serum or Plasma 0.9 mg/dL 0.2-1 .2 Bilirubin, Total VANESSA ([facility]) Aspartate aminotransferase [Enzymatic activity/volume] in Se rum or Plasma 9 U/L 10-35 Below low normal Ast VANESSA ([facility]) Alanine aminotransferase [Enzymatic activity/volume] in Seru m or Plasma 15 U/L 9-46 Alt VANESSA ([facility]) ID Date Data Source [id number] 07/06/2021 12:00:00 AM EDT VANESSA ([facility]) Name Value Range Interpretation Code Description Data Sandra rce(s) Supporting Document(s) Cholesterol in HDL [Mass/volume] in Serum or Plasma 38 mg/dL > or = 40 Below low normal HDL Cholesterol VANESSA ([facility]) Cholesterol [Mass/volume] in Serum or Plasma 114 mg/dL <200 Cholesterol, Total VANESSA ([facility]) Triglyceride [Mass/volume] in Serum or Plasma 208 mg/dL <150 Above high normal Triglycerides VANESSA ([facility]) Cholesterol in LDL [Mass/volume] in Serum or Plasma by calculation 49 mg/dL_(calc) LDL-cholesterol VANESSA ([facility]) Cholesterol non HDL [Mass/volume] in Serum or Plasma 76 mg/dL_(calc ) <130 Non HDL Cholesterol VANESSA [facility]) Cholesterol.total/Cholesterol in HDL [Mass Ratio] in Serum o r Plasma 3.0 (calc) <5.0 Chol/hdlc Ratio [facility]SA ([facility]) ID Date Data Source [id number] 07/06/2021 12:00:00 AM EDT [facility]) Name Value Range Interpretation Code Description Data Sandra rce(s) Supporting Document(s) Bacteria identified in Urine by Culture [facility] ID Date Data Source [id number] 07/06/2021 12:00:00 AM EDT [facility]) Name Value Range Interpretation Code Description Data Sandra rce(s) Supporting Document(s) Specific gravity of Urine by Test strip 1.001-1.035 A [place]die high normal Specific [place] VANESSA ([facility]) Appearance of Urine clear clear Appearance ATHEN A ([facility]) Color of Urine yellow yellow Color VANESSA ([facility]) Glucose [Presence] in Urine by Test strip 3+ negati ve Abnormal (applies to non- numeric results) Glucose VANESSA ([facility]) Bilirubin.total [Presence] in Urine by Test strip negative negative Bilirubin V[facility]SA ([facility]) Ketones [Presence] in Urine by Test strip negative negative Ketones V[facility]SA ([facility]) pH of Urine by Test strip 5.0-8.0 Ph [facility] Protein [Presence] in Urine by Test strip negative negative Protein V[facility]SA ([facility]) Hemoglobin [Presence] in Urine by Test strip negative negative Occult Blood VANESSA ([facility]) Nitrite [Presence] in Urine by Test strip negative negative Nitrite V[facility]SA ([facility]) Leukocyte esterase [Presence] in Urine by Test strip negative n egative Leukocyte Esterase VANESSA ([facility]) Bacteria [#/area] in Urine sediment by Microscopy high power field none seen none seen Bacteria VAN[facility]SA ([facility]) Epithelial cells.squamous [#/area] in Ur ine sediment by Microscopy high power field none seen < or = 5 Squamous Epithelial Cells AT [facility] ([facility]) Erythrocytes [#/area] in Urine sediment by Microscopy high power field none seen < or = 2 Rbc VANESSA ([facility]) Leukocytes [#/area] in Urine sediment by Microscopy high pow er field none seen < or = 5 Wbc V[facility]SA ([facility]) Hyaline casts [#/area] in Urine sediment by Microscopy low power field none seen none seen Hyaline Cast [facility] ([facility]) ID Date Data Source [id number] 07/06/2021 12:00:00 AM EDT [place] ([facility]) Name Value Range Interpretation Code Description Data Sandra rce(s) Supporting Document(s) Urea nitrogen [Mass/volume] in Serum or Plasma 15 mg/dL 7-25 Urea Nitrogen (BUN) VANESSA ([facility]) Glucose [Mass/volume] in Serum or Plasma 308 mg/dL 65-99 Above high normal Glucose VANESSA ([facility]) Creatinine [Mass/volume] in Serum or Plasma 0.93 mg/dL 0.70-1.33 Creatinine VAN[facility]SA ([facility]) Glomerular filtration rate/1.73 sq M.pre dicted among non-blacks [Volume Rate/Area] in Serum, Plasma or Blood by Creatinine-based formula (CKD-EPI) 95 mL/min/1.73m2 > or = 60 eGFR Non-afr. [place] VANESSA ([facility]) Glomerular filtration rate/1.73 sq M.pre dicted among blacks [Volume Rate/Area] in Serum, Plasma or Blood by Creatinine-based formula (CKD-EPI) 110 mL/min/1.73m2 > or = 60 eGFR VANESSA ([facility]) Sodium [Moles/volume] in Serum or Plasma 135 mmol/L 135-146 Sodium VANESSA ([facility]) Chloride [Moles/volume] in Serum or Plasma 102 mmol/L 98-110 Chloride VANESSA ([facility]) Urea nitrogen/Creatinine [Mass Ratio] in Serum or Plasma not applic able 6-22 BUN/creatinine Ratio [place] ([facility]) Potassium [Moles/volume] in Serum or Plasma 4.0 mmol/L 3.5-5.3 Potassium VANESSA ([facility]) Carbon dioxide, total [Moles/volume] in Serum or Plasma 27 mmol/L 20-32 Carbon Dioxide VANESSA ([facility]) Protein [Mass/volume] in Serum or Plasma 6.8 g/dL 6.1-8.1 Protein, Total VANESSA ([facility]) Calcium [Mass/volume] in Serum or Plasma 8.9 mg/dL 8.6-10.3 Calcium [facility] ([facility]) Globulin [Mass/volume] in Serum by calculation 2.7 g/dL_(calc) 1.9- 3.7 Globulin [place] ([facility]) Albumin [Mass/volume] in Serum or Plasma 4.1 g/dL 3.6-5.1 Albumin [place] ([facility]) Bilirubin.total [Mass/volume] in Serum or Plasma 0.9 mg/dL 0.2-1 .2 Bilirubin, Total [place] ([facility]) Albumin/Globulin [Mass Ratio] in Serum or Plasma 1.5 (calc) 1.0-2 .5 Albumin/globulin Ratio VAN[facility]SA ([facility]) Alanine aminotransferase [Enzymatic activity/volume] in Seru m or Plasma 15 U/L 9-46 Alt V[facility]ESSA ([facility]) Aspartate aminotransferase [Enzymatic activity/volume] in Se rum or Plasma 9 U/L 10-35 Below low normal Ast VAN[facility]SA ([facility]) Alkaline phosphatase [Enzymatic activity/volume] in Serum or Plasma 73 U/L 35-144 Alkaline Phosphatase [facility]SA ([facility]) ID Date Data Source [id number] 07/06/2021 12:00:00 AM EDT [place] ([facility]) Name Value Range Interpretation Code Description Data Sandra rce(s) Supporting Document(s) Cholesterol in HDL [Mass/volume] in Serum or Plasma 38 mg/dL > or = 40 Below low normal HDL Cholesterol V[facility] ([facility]) Cholesterol [Mass/volume] in Serum or Plasma 114 mg/dL <200 Cholesterol, Total [facility] ([facility]) Cholesterol.total/Cholesterol in HDL [Mass Ratio] in Serum o r Plasma 3.0 (calc) <5.0 Chol/hdlc Ratio [facility] ([facility]) Cholesterol in LDL [Mass/volume] in Serum or Plasma by calculation 49 mg/dL_(calc) LDL-cholesterol V[facility]SA ([facility]) Triglyceride [Mass/volume] in Serum or Plasma 208 mg/dL <150 Above high normal Triglycerides VANESSA ([facility]) Cholesterol non HDL [Mass/volume] in Serum or Plasma 76 mg/dL_(calc ) <130 Non HDL Cholesterol [facility] ([facility]) ID Date Data Source [id number] 07/06/2021 12:00:00 AM EDT [facility]) Name Value Range Interpretation Code Description Data Sandra rce(s) Supporting Document(s) Bacteria identified in Urine by Culture [facility] ID Date Data Source [id number] 07/06/2021 12:00:00 AM EDT [facility]) Name Value Range Interpretation Code Description Data Sandra rce(s) Supporting Document(s) Color of Urine yellow yellow Color VANESSA ([facility]) Appearance of Urine clear clear Appearance ATHEN A ([facility]) Glucose [Presence] in Urine by Test strip 3+ negati ve Abnormal (applies to non- numeric results) Glucose [facility] ([facility]) Specific gravity of Urine by Test strip 1.001-1.035 A eddie high normal Specific [place] VANESSA ([facility]) pH of Urine by Test strip 5.0-8.0 Ph VANESSA ([facility]) Bilirubin.total [Presence] in Urine by Test strip negative negative Bilirubin V[facility]SA ([facility]) Protein [Presence] in Urine by Test strip negative negative Protein V[facility]SA ([facility]) Hemoglobin [Presence] in Urine by Test strip negative negative Occult Blood VANESSA ([facility]) Ketones [Presence] in Urine by Test strip negative negative Ketones [facility] ([facility]) Nitrite [Presence] in Urine by Test strip negative negative Nitrite [facility]SA ([facility]) Leukocytes [#/area] in Urine sediment by Microscopy high pow er field none seen < or = 5 Wbc [place] ([facility]) Leukocyte esterase [Presence] in Urine by Test strip negative n egative Leukocyte Esterase VANESSA ([facility]) Epithelial cells.squamous [#/area] in Ur ine sediment by Microscopy high power field none seen < or = 5 Squamous Epithelial Cells AT [facility]) Hyaline casts [#/area] in Urine sediment by Microscopy low power field none seen none seen Hyaline Cast V[facility]SA ([facility]) Bacteria [#/area] in Urine sediment by Microscopy high power field none seen none seen Bacteria [place] ([facility]) Erythrocytes [#/area] in Urine sediment by Microscopy high power field none seen < or = 2 Rbc [facility] ([facility]) ID Date Data Source [id number] 07/06/2021 12:00:00 AM EDT [place] ([facility]) Name Value Range Interpretation Code Description Data Sandra rce(s) Supporting Document(s) Glucose [Mass/volume] in Serum or Plasma 308 mg/dL 65-99 Above high normal Glucose [place] ([facility]) Urea nitrogen [Mass/volume] in Serum or Plasma 15 mg/dL 7-25 Urea Nitrogen (BUN) [facility] ([facility]) Urea nitrogen/Creatinine [Mass Ratio] in Serum or Plasma not applic able 6-22 BUN/creatinine Ratio [place] ([facility]) Creatinine [Mass/volume] in Serum or Plasma 0.93 mg/dL 0.70-1.33 Creatinine [facility] ([facility]) Glomerular filtration rate/1.73 sq M.pre dicted among non-blacks [Volume Rate/Area] in Serum, Plasma or Blood by Creatinine-based formula (CKD-EPI) 95 mL/min/1.73m2 > or = 60 eGFR Non-afr. [place] [facility] ([facility]) Glomerular filtration rate/1.73 sq M.pre dicted among blacks [Volume Rate/Area] in Serum, Plasma or Blood by Creatinine-based formula (CKD-EPI) 110 mL/min/1.73m2 > or = 60 eGFR [facility] ([facility]) Chloride [Moles/volume] in Serum or Plasma 102 mmol/L 98-110 Chloride [facility] ([facility]) Potassium [Moles/volume] in Serum or Plasma 4.0 mmol/L 3.5-5.3 Potassium [facility] ([facility]) Sodium [Moles/volume] in Serum or Plasma 135 mmol/L 135-146 Sodium [facility] ([facility]) Carbon dioxide, total [Moles/volume] in Serum or Plasma 27 mmol/L 20-32 Carbon Dioxide [facility] ([facility]) Calcium [Mass/volume] in Serum or Plasma 8.9 mg/dL 8.6-10.3 Calcium [facility] ([facility]) Albumin [Mass/volume] in Serum or Plasma 4.1 g/dL 3.6-5.1 Albumin [facility] ([facility]) Globulin [Mass/volume] in Serum by calculation 2.7 g/dL_(calc) 1.9- 3.7 Globulin [facility] ([facility]) Protein [Mass/volume] in Serum or Plasma 6.8 g/dL 6.1-8.1 Protein, Total [place] ([facility]) Bilirubin.total [Mass/volume] in Serum or Plasma 0.9 mg/dL 0.2-1 .2 Bilirubin, Total [place] ([facility]) Albumin/Globulin [Mass Ratio] in Serum or Plasma 1.5 (calc) 1.0-2 .5 Albumin/globulin Ratio [facility] ([facility]) Alkaline phosphatase [Enzymatic activity/volume] in Serum or Plasma 73 U/L 35-144 Alkaline Phosphatase [facility] ([facility]) Aspartate aminotransferase [Enzymatic activity/volume] in Se rum or Plasma 9 U/L 10-35 Below low normal Ast [facility] ([facility]) Alanine aminotransferase [Enzymatic activity/volume] in Seru m or Plasma 15 U/L 9-46 Alt [facility] ([facility]) ID Date Data Source [id number] 07/06/2021 12:00:00 AM EDT [place] ([facility]) Name Value Range Interpretation Code Description Data Sandra rce(s) Supporting Document(s) Cholesterol in HDL [Mass/volume] in Serum or Plasma 38 mg/dL > or = 40 Below low normal HDL Cholesterol [facility] ([facility]) Triglyceride [Mass/volume] in Serum or Plasma 208 mg/dL <150 Above high normal Triglycerides [facility] ([facility]) Cholesterol [Mass/volume] in Serum or Plasma 114 mg/dL <200 Cholesterol, Total [facility] ([facility]) Cholesterol in LDL [Mass/volume] in Serum or Plasma by calculation 49 mg/dL_(calc) LDL-cholesterol [facility] ([facility]) Cholesterol.total/Cholesterol in HDL [Mass Ratio] in Serum o r Plasma 3.0 (calc) <5.0 Chol/hdlc Ratio [facility] ([facility]) Cholesterol non HDL [Mass/volume] in Serum or Plasma 76 mg/dL_(calc ) <130 Non HDL Cholesterol [facility] ([facility]) ID Date Data Source [id number] 06/28/2021 11:45:00 AM EDT [facility]) Name Value Range Interpretation Code Description Data Sandra rce(s) Supporting Document(s) Hemoglobin A1c/Hemoglobin.total in Blood 10.4 % Abnormal (applies to non- numeric results) Hba1C [place] ([facility]) ID Date Data Source [id number] 06/28/2021 11:45:00 AM EDT [place] ([facility]) Name Value Range Interpretation Code Description Data Sandra rce(s) Supporting Document(s) Hemoglobin A1c/Hemoglobin.total in Blood 10.4 % Abnormal (applies to non- numeric results) Hba1C [facility] ([facility]) ID Date Data Source [id number] 06/28/2021 11:45:00 AM EDT [facility]) Name Value Range Interpretation Code Description Data Sandra rce(s) Supporting Document(s) Hemoglobin A1c/Hemoglobin.total in Blood 10.4 % Abnormal (applies to non- numeric results) Hba1C [place] ([facility]) ID Date Data Source [id number] 06/28/2021 11:45:00 AM EDT [place] ([facility]) Name Value Range Interpretation Code Description Data Sandra rce(s) Supporting Document(s) Hemoglobin A1c/Hemoglobin.total in Blood 10.4 % Abnormal (applies to non- numeric results) Hba1C [facility] ([facility]) ID Date Data Source [id number] 06/28/2021 11:45:00 AM EDT [facility]) Name Value Range Interpretation Code Description Data Sandra rce(s) Supporting Document(s) Hemoglobin A1c/Hemoglobin.total in Blood 10.4 % Abnormal (applies to non- numeric results) Hba1C [place] ([facility]) ID Date Data Source [id number] 04/25/2021 08:05:00 AM EDT [facility]) Name Value Range Interpretation Code Description Data Sandra rce(s) Supporting Document(s) glucose, fasting 382 mg/dL 70-100 Above high normal Glucose, Fas ting [place] ([facility]) creatinine for GFR 1.19 mg/dL 0.70-1.30 Creatinine for GF R [place] ([facility]) blood urea nitrogen 20 mg/dL 7-18 Above high normal Blood Ure a Nitrogen [facility] ([facility]) glomerular filtration rate > 60.0 >56 Glomerula r Filtration Rate [place] ([facility]) potassium serum 4.5 mEq/L 3.5-5.1 Potassium Serum ATH NA ([facility]) sodium level 135 mEq/L 136-145 Below low normal Sodium Level [facility] NA ([facility]) chloride level 100 mEq/L 98-107 Chloride Level [facility] ([facility]) carbon dioxide level 27 mEq/L 21-32 Carbon Dioxide Level [facility] ([facility]) anion gap 8 mEq/L 8-16 Anion Gap [facility] ([facility]) calcium level 9.3 mg/dL 8.5-10.1 Calcium Level [facility] ( [facility]) AST/SGOT 9 U/L 7-37 AST/SGOT [facility] ([facility]) ALT/SGPT 26 U/L 12-78 ALT/SGPT [facility] ([facility]) alkaline phosphatase 71 U/L 45-117 Alkaline Phosph atase [facility] ([facility]) bilirubin,total 1.0 mg/dL 0.2-1.0 Bilirubin,total [facility] ([facility]) total protein 7.6 gm/dL 6.4-8.2 Total Protein [facility] ( [facility]) albumin 3.9 gm/dL 3.2-5.2 Albumin [facility] ([facility]) albumin/globulin ratio Albumin/globu jose l Ratio [facility] ([facility]) ID Date Data Source [id number] 04/25/2021 08:05:00 AM EDT [place] ([facility]) Name Value Range Interpretation Code Description Data Sandra rce(s) Supporting Document(s) blood urea nitrogen 20 mg/dL 7-18 Above high normal Blood Ure a Nitrogen [facility] ([facility]) glucose, fasting 382 mg/dL 70-100 Above high normal Glucose, Fas ting [facility] ([facility]) creatinine for GFR 1.19 mg/dL 0.70-1.30 Creatinine for GF R [facility] ([facility]) sodium level 135 mEq/L 136-145 Below low normal Sodium Level [facility] [place] ([facility]) glomerular filtration rate > 60.0 >56 Glomerula r Filtration Rate [facility] ([facility]) chloride level 100 mEq/L 98-107 Chloride Level [facility] ([facility]) potassium serum 4.5 mEq/L 3.5-5.1 Potassium Serum [facility] ([facility]) anion gap 8 mEq/L 8-16 Anion Gap [facility] ([facility]) carbon dioxide level 27 mEq/L 21-32 Carbon Dioxide Level [facility] ([facility]) AST/SGOT 9 U/L 7-37 AST/SGOT [facility] ([facility]) calcium level 9.3 mg/dL 8.5-10.1 Calcium Level [facility] ( [facility]) ALT/SGPT 26 U/L 12-78 ALT/SGPT [facility] ([facility]) alkaline phosphatase 71 U/L 45-117 Alkaline Phosph atase [facility] ([facility]) bilirubin,total 1.0 mg/dL 0.2-1.0 Bilirubin,total [place] ([facility]) albumin 3.9 gm/dL 3.2-5.2 Albumin [facility] ([facility]) total protein 7.6 gm/dL 6.4-8.2 Total Protein [facility] ( [facility]) albumin/globulin ratio Albumin/globu jose l Ratio [facility] ([facility]) ID Date Data Source [id number] 04/25/2021 08:05:00 AM EDT [place] ([facility]) Name Value Range Interpretation Code Description Data Sandra rce(s) Supporting Document(s) blood urea nitrogen 20 mg/dL 7-18 Above high normal Blood Ure a Nitrogen [facility] ([facility]) glucose, fasting 382 mg/dL 70-100 Above high normal Glucose, Fas ting [facility] ([facility]) creatinine for GFR 1.19 mg/dL 0.70-1.30 Creatinine for GF R [facility] ([facility]) glomerular filtration rate > 60.0 >56 Glomerula r Filtration Rate [facility] ([facility]) sodium level 135 mEq/L 136-145 Below low normal Sodium Level [facility] NA ([facility]) chloride level 100 mEq/L 98-107 Chloride Level [facility] ([facility]) potassium serum 4.5 mEq/L 3.5-5.1 Potassium Serum [facility] NA ([facility]) carbon dioxide level 27 mEq/L 21-32 Carbon Dioxide Level [facility] ([facility]) anion gap 8 mEq/L 8-16 Anion Gap [facility] ([facility]) AST/SGOT 9 U/L 7-37 AST/SGOT [facility] ([facility]) calcium level 9.3 mg/dL 8.5-10.1 Calcium Level [facility] ( [facility]) ALT/SGPT 26 U/L 12-78 ALT/SGPT [facility] ([facility]) alkaline phosphatase 71 U/L 45-117 Alkaline Phosph atase [facility] ([facility]) bilirubin,total 1.0 mg/dL 0.2-1.0 Bilirubin,total [facility] ([facility]) albumin 3.9 gm/dL 3.2-5.2 Albumin [facility] ([facility]) total protein 7.6 gm/dL 6.4-8.2 Total Protein [facility] ( [facility]) albumin/globulin ratio Albumin/globu jose l Ratio [facility] ([facility]) ID Date Data Source [id number] 04/25/2021 08:05:00 AM EDT [place] ([facility]) Name Value Range Interpretation Code Description Data Sandra rce(s) Supporting Document(s) glucose, fasting 382 mg/dL 70-100 Above high normal Glucose, Fas ting [facility] ([facility]) blood urea nitrogen 20 mg/dL 7-18 Above high normal Blood Ure a Nitrogen [facility] ([facility]) glomerular filtration rate > 60.0 >56 Glomerula r Filtration Rate [facility] ([facility]) creatinine for GFR 1.19 mg/dL 0.70-1.30 Creatinine for GF R [facility] ([facility]) potassium serum 4.5 mEq/L 3.5-5.1 Potassium Serum [facility] NA ([facility]) sodium level 135 mEq/L 136-145 Below low normal Sodium Level [facility] NA ([facility]) anion gap 8 mEq/L 8-16 Anion Gap [facility] ([facility]) carbon dioxide level 27 mEq/L 21-32 Carbon Dioxide Level [facility] ([facility]) chloride level 100 mEq/L 98-107 Chloride Level [facility] ([facility]) AST/SGOT 9 U/L 7-37 AST/SGOT [facility] ([facility]) calcium level 9.3 mg/dL 8.5-10.1 Calcium Level [facility] ( [facility]) alkaline phosphatase 71 U/L 45-117 Alkaline Phosph atase [facility] ([facility]) bilirubin,total 1.0 mg/dL 0.2-1.0 Bilirubin,total [facility] NA ([facility]) ALT/SGPT 26 U/L 12-78 ALT/SGPT [facility] ([facility]) total protein 7.6 gm/dL 6.4-8.2 Total Protein [facility] ( [facility]) albumin 3.9 gm/dL 3.2-5.2 Albumin [facility] ([facility]) albumin/globulin ratio Albumin/globu jose l Ratio [facility] ([facility]) ID Date Data Source [id number] 04/25/2021 08:05:00 AM EDT [place] ([facility]) Name Value Range Interpretation Code Description Data Sandra rce(s) Supporting Document(s) glucose, fasting 382 mg/dL 70-100 Above high normal Glucose, Fas ting [facility] ([facility]) glomerular filtration rate > 60.0 >56 Glomerula r Filtration Rate [facility] ([facility]) creatinine for GFR 1.19 mg/dL 0.70-1.30 Creatinine for GF R [facility] ([facility]) blood urea nitrogen 20 mg/dL 7-18 Above high normal Blood Ure a Nitrogen [facility] ([facility]) sodium level 135 mEq/L 136-145 Below low normal Sodium Level [facility] NA ([facility]) chloride level 100 mEq/L 98-107 Chloride Level [facility] ([facility]) potassium serum 4.5 mEq/L 3.5-5.1 Potassium Serum [facility] NA ([facility]) carbon dioxide level 27 mEq/L 21-32 Carbon Dioxide Level [facility] ([facility]) anion gap 8 mEq/L 8-16 Anion Gap [facility] ([facility]) calcium level 9.3 mg/dL 8.5-10.1 Calcium Level [facility] ( [facility]) ALT/SGPT 26 U/L 12-78 ALT/SGPT [facility] ([facility]) AST/SGOT 9 U/L 7-37 AST/SGOT [facility] ([facility]) total protein 7.6 gm/dL 6.4-8.2 Total Protein [facility] ( [facility]) alkaline phosphatase 71 U/L 45-117 Alkaline Phosph atase [facility] ([facility]) bilirubin,total 1.0 mg/dL 0.2-1.0 Bilirubin,total [facility] ([facility]) albumin/globulin ratio Albumin/globu jose l Ratio [facility] ([facility]) albumin 3.9 gm/dL 3.2-5.2 Albumin [facility] ([facility]) ID Date Data Source [id number] 04/25/2021 08:05:00 AM EDT [place] ([facility]) Name Value Range Interpretation Code Description Data Sandra rce(s) Supporting Document(s) creatinine for GFR 1.19 mg/dL 0.70-1.30 Creatinine for GF R [facility] ([facility]) glucose, fasting 382 mg/dL 70-100 Above high normal Glucose, Fas ting [facility] ([facility]) blood urea nitrogen 20 mg/dL 7-18 Above high normal Blood Ure a Nitrogen [facility] ([facility]) glomerular filtration rate > 60.0 >56 Glomerula r Filtration Rate [facility] ([facility]) sodium level 135 mEq/L 136-145 Below low normal Sodium Level [facility] NA ([facility]) carbon dioxide level 27 mEq/L 21-32 Carbon Dioxide Level [facility] ([facility]) potassium serum 4.5 mEq/L 3.5-5.1 Potassium Serum [facility] NA ([facility]) chloride level 100 mEq/L 98-107 Chloride Level [facility] ([facility]) anion gap 8 mEq/L 8-16 Anion Gap [facility] ([facility]) calcium level 9.3 mg/dL 8.5-10.1 Calcium Level [facility] ( [facility]) alkaline phosphatase 71 U/L 45-117 Alkaline Phosph atase [facility] ([facility]) ALT/SGPT 26 U/L 12-78 ALT/SGPT [facility] ([facility]) AST/SGOT 9 U/L 7-37 AST/SGOT [facility] ([facility]) total protein 7.6 gm/dL 6.4-8.2 Total Protein [facility] ( [facility]) bilirubin,total 1.0 mg/dL 0.2-1.0 Bilirubin,total ATHE NA ([facility]) albumin 3.9 gm/dL 3.2-5.2 Albumin [facility] ([facility]) albumin/globulin ratio Albumin/globu jose l Ratio [facility] ([facility]) ID Date Data Source [id number] 04/07/2021 04:34:00 PM EDT [facility] ([facility]) Name Value Range Interpretation Code Description Data Sandra rce(s) Supporting Document(s) vitamin B6,pyridoxal phosphate 13.4 ug/L 5.3-46.7 Vitamin B6,Pyridoxal Phosphate [facility] ([facility]) ID Date Data Source [id number] 04/07/2021 04[facility]34[facility] Value Range Interpretation Code Description Data Sandra rce(s) Supporting Document(s) vitamin B1 level whole blood 134.8 nmol/L 66.5-200.0 Vitamin B1 Level Whole Blood [facility] ([facility]) ID Date Data Source [id number] 04/07/2021 04:34:00 PM EDT [place] ([facility]) Name Value Range Interpretation Code Description Data Sandra rce(s) Supporting Document(s) vitamin E(alpha tocopherol) 6.2 mg/L 7.0-25.1 Below low nor mal Vitamin E(alpha Tocopherol) [facility] ([facility]) vitamin E(gamma tocopherol) 0.7 mg/L 0.5-5.5 Vitamin E(gamma Tocopherol) [facility] ([facility]) ID Date Data Source [id number] 04/07/2021 04:34:00 PM EDT [place] ([facility]) Name Value Range Interpretation Code Description Data Sandra rce(s) Supporting Document(s) rheumatoid factor quant < 10.0 <15.0 Rheumatoid F actor Quant [facility] ([facility]) ID Date Data Source [id number] 04/07/2021 04:34:00 PM EDT [place] ([facility]) Name Value Range Interpretation Code Description Data Sandra rce(s) Supporting Document(s) vitamin B12 level 493 pg/mL Vitamin B12 Level [facility] ([facility]) folate 17.7 NG/mL Folate [facility] ([facility]) ID Date Data Source [id number] 04/07/2021 04:34:00 PM EDT [place] ([facility]) Name Value Range Interpretation Code Description Data Sandra rce(s) Supporting Document(s) albumin % 60.8 % 55.8-66.1 Albumin % [place] ([facility]) rczqb-9-tfgrmuxoe % 10.3 % 7.1-11.8 Doqmc-5-Txljyyos s % [place] ([facility]) udech-4-wghnpmvl % 3.4 % 2.9-4.9 Wjtes-6-Wtgdbjlk % [place] ([facility]) xqav-9-knlymvnmo % 5.7 % 3.2-6.5 Dryv-5-Blpfnvpne % [place] ([facility]) cbaq-0-rlkqpxdci % 5.5 % 4.7-7.2 Qzxl-0-Pughwotyc % [place] ([facility]) albumin 4.44 gm/dL 3.29-5.55 Albumin [place] ([facility]) gamma globulin % 14.3 % 11.1-18.8 Gamma Globulin % AT [facility]) ytjpn-7-hvxxwrluy 0.75 gm/dL 0.42-0.99 Mlqnp-4-Pqpxwxnff [place] ([facility]) yxakz-8-puwwokzrz 0.25 gm/dL 0.17-0.41 Eybml-1-Vyqkrahhx [place] ([facility]) lvga-8-gotbctwhk 0.42 gm/dL 0.19-0.55 Kdkd-8-Sqvnmejbs AT [facility] ([facility]) jmpm-1-flneyqdcu 0.40 gm/dL 0.28-0.60 Givg-8-Olmoobbzq AT [facility] ([facility]) gamma globulins 1.04 gm/dL 0.65-1.58 Gamma Globulins AT[facility] ([facility]) total protein 7.3 gm/dL 6.4-8.2 Total Protein [facility] ( [facility]) spep pathologist review rev'd by Anna kumar Spep Pathologist Review [facility] ([facility]) spep interpretation see comment Spep Interpreta tion [facility] ([facility]) ID Date Data Source [id number] 04/07/2021 04:34:00 PM EDT [place] ([facility]) Name Value Range Interpretation Code Description Data Sandra rce(s) Supporting Document(s) PTT lupus type anticoag screen 0-1.2 PTT L upus Type Anticoag Screen [facility] ([facility]) ID Date Data Source [id number] 04/07/2021 04:34:00 PM EDT [place] ([facility]) Name Value Range Interpretation Code Description Data Sandra rce(s) Supporting Document(s) erythrocyte sedimentation rate 3 mm/HR 0-20 Eryth rocyte Sedimentation Rate [facility] ([facility]) ID Date Data Source [id number] 04/07/2021 04:34:00 PM EDT [place] ([facility]) Name Value Range Interpretation Code Description Data Sandra rce(s) Supporting Document(s) estimated average glucose 278 mg/dL 60-110 Above high norm al Estimated Average Glucose [facility] ([facility]) Hemoglobin A1c/Hemoglobin.total in Blood 11.3 % Hemoglobin a1C [place] ([facility]) ID Date Data Source [id number] 04/07/2021 04:34:00 PM EDT [facility]) Name Value Range Interpretation Code Description Data Sandra rce(s) Supporting Document(s) antinuclear antibodies direct negative negative Antinu clear Antibodies Direct [facility]) ID Date Data Source [id number] 04/07/2021 04:34:00 PM EDT [facility]) Name Value Range Interpretation Code Description Data Sandra rce(s) Supporting Document(s) vitamin B6,pyridoxal phosphate 13.4 ug/L 5.3-46.7 Vitamin B6,Pyridoxal Phosphate [facility]) ID Date Data Source [id number] 04/07/2021 04:34:00 PM EDT [facility]) Name Value Range Interpretation Code Description Data Sandra rce(s) Supporting Document(s) vitamin B1 level whole blood 134.8 nmol/L 66.5-200.0 Vitamin B1 Level Whole Blood [facility]) ID Date Data Source [id number] 04/07/2021 04:34:00 PM EDT [facility]) Name Value Range Interpretation Code Description Data Sandra rce(s) Supporting Document(s) vitamin E(alpha tocopherol) 6.2 mg/L 7.0-25.1 Below low nor mal Vitamin E(alpha Tocopherol) [place] ([facility]) vitamin E(gamma tocopherol) 0.7 mg/L 0.5-5.5 Vitamin E(gamma Tocopherol) [facility]) ID Date Data Source [id number] 04/07/2021 04:34:00 PM EDT [facility]) Name Value Range Interpretation Code Description Data Sandra rce(s) Supporting Document(s) rheumatoid factor quant < 10.0 <15.0 Rheumatoid F actor Quant [facility]) ID Date Data Source [id number] 04/07/2021 04:34:00 PM EDT [place] ([facility]) Name Value Range Interpretation Code Description Data Sandra rce(s) Supporting Document(s) folate 17.7 NG/mL Folate [facility] ([facility]) vitamin B12 level 493 pg/mL Vitamin B12 Level [place] ([facility]) ID Date Data Source [id number] 04/07/2021 04:34:00 PM EDT [facility] ([facility]) Name Value Range Interpretation Code Description Data Sandra rce(s) Supporting Document(s) bweco-2-rhggugyr % 3.4 % 2.9-4.9 Aqelm-9-Awmodlkd % [place] ([facility]) albumin % 60.8 % 55.8-66.1 Albumin % [place] ([facility]) mtyq-0-pxyuqoumi % 5.5 % 4.7-7.2 Cgfl-1-Sojtxfypt % [place] ([facility]) qmkck-8-ncinzqzvp % 10.3 % 7.1-11.8 Hhkxa-6-Ycxgygkb s % [place] ([facility]) gamma globulin % 14.3 % 11.1-18.8 Gamma Globulin % AT [facility]) loag-5-bvlournet % 5.7 % 3.2-6.5 Gilc-7-Wnstzemyk % [place] ([facility]) haart-8-hpumcnvwv 0.75 gm/dL 0.42-0.99 Uhima-9-Dsmpguxsz [facility] ([facility]) zvlul-9-nlupintzb 0.25 gm/dL 0.17-0.41 Dyqoa-7-Eqhwgceen [facility] ([facility]) albumin 4.44 gm/dL 3.29-5.55 Albumin [place] ([facility]) qsdo-5-hhvzsxomb 0.40 gm/dL 0.28-0.60 Zhdi-7-Watxvbmdk AT [facility]) oxub-1-chwvfvgsx 0.42 gm/dL 0.19-0.55 Gnfn-3-Ikfaamekq AT [facility]) gamma globulins 1.04 gm/dL 0.65-1.58 Gamma Globulins ATHE NA ([facility]) total protein 7.3 gm/dL 6.4-8.2 Total Protein [facility] ( [facility]) spep pathologist review rev'd by Anna kumar Spep Pathologist Review [facility] ([facility]) spep interpretation see comment Spep Interpreta tion [facility] ([facility]) ID Date Data Source [id number] 04/07/2021 04:34:00 PM EDT VANESSA ([facility]) Name Value Range Interpretation Code Description Data Sandra rce(s) Supporting Document(s) PTT lupus type anticoag screen 0-1.2 PTT L upus Type Anticoag Screen VANESSA ([facility]) ID Date Data Source [id number] 04/07/2021 04:34:00 PM EDT VANESSA ([facility]) Name Value Range Interpretation Code Description Data Sandra rce(s) Supporting Document(s) erythrocyte sedimentation rate 3 mm/HR 0-20 Eryth rocyte Sedimentation Rate VANESSA ([facility]) ID Date Data Source [id number] 04/07/2021 04:34:00 PM EDT [place] ([facility]) Name Value Range Interpretation Code Description Data Sandra rce(s) Supporting Document(s) Hemoglobin A1c/Hemoglobin.total in Blood 11.3 % Hemoglobin a1C [place] ([facility]) estimated average glucose 278 mg/dL 60-110 Above high norm al Estimated Average Glucose [facility] ([facility]) ID Date Data Source [id number] 04/07/2021 04:34:00 PM EDT [place] ([facility]) Name Value Range Interpretation Code Description Data Sandra rce(s) Supporting Document(s) antinuclear antibodies direct negative negative [facility]u [facility] ID Date Data Source [id number] 04/07/2021 04:34:00 PM EDT [facility]) Name Value Range Interpretation Code Description Data Sandra rce(s) Supporting Document(s) vitamin B6,pyridoxal phosphate 13.4 ug/L 5.3-46.7 Vitamin B6,Pyridoxal Phosphate [facility]) ID Date Data Source [id number] 04/07/2021 04:34:00 PM EDT [facility]) Name Value Range Interpretation Code Description Data Sandra rce(s) Supporting Document(s) vitamin B1 level whole blood 134.8 nmol/L 66.5-200.0 Vitamin B1 Level Whole Blood [facility]) ID Date Data Source [id number] 04/07/2021 04:34:00 PM EDT [facility]) Name Value Range Interpretation Code Description Data Sandra rce(s) Supporting Document(s) vitamin E(alpha tocopherol) 6.2 mg/L 7.0-25.1 Below low nor mal Vitamin E(alpha Tocopherol) [place] ([facility]) vitamin E(gamma tocopherol) 0.7 mg/L 0.5-5.5 Vitamin E(gamma Tocopherol) [facility]) ID Date Data Source [id number] 04/07/2021 04:34:00 PM EDT [facility]) Name Value Range Interpretation Code Description Data Sandra rce(s) Supporting Document(s) rheumatoid factor quant < 10.0 <15.0 Rheumatoid F actor Quant [facility]) ID Date Data Source [id number] 04/07/2021 04:34:00 PM EDT [facility]) Name Value Range Interpretation Code Description Data Sandra rce(s) Supporting Document(s) vitamin B12 level 493 pg/mL Vitamin B12 Level [facility] ([facility]) folate 17.7 NG/mL Folate [facility] ([facility]) ID Date Data Source [id number] 04/07/2021 04:34:00 PM EDT [place] ([facility]) Name Value Range Interpretation Code Description Data Sandra rce(s) Supporting Document(s) albumin % 60.8 % 55.8-66.1 Albumin % [place] ([facility]) tigpz-7-xfjtgvly % 3.4 % 2.9-4.9 Jswey-4-Ahykeffi % [place] ([facility]) vsxl-2-wtsfkmvgf % 5.5 % 4.7-7.2 Tmxj-8-Gszrzjgvf % [place] ([facility]) xyuet-8-tepvgbwev % 10.3 % 7.1-11.8 Sywtk-9-Hqfoaijw s % [place] ([facility]) gamma globulin % 14.3 % 11.1-18.8 Gamma Globulin % AT [facility]) umwv-5-uhajiwgtb % 5.7 % 3.2-6.5 Uhxr-8-Ipbvoaflh % [place] ([facility]) lvzcx-8-kdfjyeuka 0.25 gm/dL 0.17-0.41 Yhkjd-7-Bdgcfcaww [facility] ([facility]) albumin 4.44 gm/dL 3.29-5.55 Albumin [facility] ([facility]) fyriz-4-ltdwrvqor 0.75 gm/dL 0.42-0.99 Qairb-5-Kxclpyhbs [facility] ([facility]) trxi-6-wklvuomub 0.40 gm/dL 0.28-0.60 Zaxs-4-Fwxvddkyl AT [facility]) xtph-3-wcftkdpzm 0.42 gm/dL 0.19-0.55 Gpdv-4-Hjizwpumr AT [facility]) gamma globulins 1.04 gm/dL 0.65-1.58 Gamma Globulins [facility] ([facility]) spep interpretation see comment Spep Interpreta tion [facility] ([facility]) total protein 7.3 gm/dL 6.4-8.2 Total Protein [facility] ( [facility]) spep pathologist review rev'd by Anna Gomez Pathologist Review [place] ([facility]) ID Date Data Source [id number] 04/07/2021 04:34:00 PM EDT [place] ([facility]) Name Value Range Interpretation Code Description Data Sandra rce(s) Supporting Document(s) PTT lupus type anticoag screen 0-1.2 PTT L upus Type Anticoag Screen [place] ([facility]) ID Date Data Source [id number] 04/07/2021 04:34:00 PM EDT [place] ([facility]) Name Value Range Interpretation Code Description Data Sandra rce(s) Supporting Document(s) erythrocyte sedimentation rate 3 mm/HR 0-20 Eryth rocyte Sedimentation Rate [place] ([facility]) ID Date Data Source [id number] 04/07/2021 04:34:00 PM EDT [place] ([facility]) Name Value Range Interpretation Code Description Data Sandra rce(s) Supporting Document(s) Hemoglobin A1c/Hemoglobin.total in Blood 11.3 % Hemoglobin a1C [place] ([facility]) estimated average glucose 278 mg/dL 60-110 Above high norm al Estimated Average Glucose [place] ([facility]) ID Date Data Source [id number] 04/07/2021 04:34:00 PM EDT [place] ([facility]) Name Value Range Interpretation Code Description Data Sandra rce(s) Supporting Document(s) antinuclear antibodies direct negative negative Antinu clear Antibodies Direct [facility]) ID Date Data Source [id number] 04/07/2021 04:34:00 PM EDT [place] ([facility]) Name Value Range Interpretation Code Description Data Sandra rce(s) Supporting Document(s) vitamin B6,pyridoxal phosphate 13.4 ug/L 5.3-46.7 Vitamin B6,Pyridoxal Phosphate [facility] ([facility]) ID Date Data Source [id number] 04/07/2021 04:34:00 PM EDT [place] ([facility]) Name Value Range Interpretation Code Description Data Sandra rce(s) Supporting Document(s) vitamin B1 level whole blood 134.8 nmol/L 66.5-200.0 Vitamin B1 Level Whole Blood [facility] ([facility]) ID Date Data Source [id number] 04/07/2021 04:34:00 PM [facility] Name Value Range Interpretation Code Description Data Sandra rce(s) Supporting Document(s) vitamin E(alpha tocopherol) 6.2 mg/L 7.0-25.1 Below low nor mal Vitamin E(alpha Tocopherol) [place] ([facility]) vitamin E(gamma tocopherol) 0.7 mg/L 0.5-5.5 Vitamin E(gamma Tocopherol) [facility]) ID Date Data Source [id number] 04/07/2021 04:34:00 PM EDT [facility] Name Value Range Interpretation Code Description Data Sandra rce(s) Supporting Document(s) rheumatoid factor quant < 10.0 <15.0 Rheumatoid F actor Quant [facility] ([facility]) ID Date Data Source [id number] 04/07/2021 04:34:00 PM EDT [facility] Name Value Range Interpretation Code Description Data Sandra rce(s) Supporting Document(s) vitamin B12 level 493 pg/mL Vitamin B12 Level [facility] ([facility]) folate 17.7 NG/mL Folate [facility] ([facility]) ID Date Data Source [id number] 04/07/2021 04:34:00 PM EDT [place] ([facility]) Name Value Range Interpretation Code Description Data Sandra rce(s) Supporting Document(s) albumin % 60.8 % 55.8-66.1 Albumin % [place] ([facility]) efgel-7-ifcntbzk % 3.4 % 2.9-4.9 Orgem-9-Bkrcrsuh % [place] ([facility]) jnbwf-0-riofiavjl % 10.3 % 7.1-11.8 Tbmto-7-Dgagfyaa s % [place] ([facility]) nrwl-2-tjpaqnbua % 5.7 % 3.2-6.5 Yafn-7-Kwyawoajz % [place] ([facility]) fbmo-8-ldiiukwsx % 5.5 % 4.7-7.2 Yzrc-0-Wkhvcobqd % [place] ([facility]) albumin 4.44 gm/dL 3.29-5.55 Albumin [place] ([facility]) gamma globulin % 14.3 % 11.1-18.8 Gamma Globulin % AT [facility] ([facility]) onipx-7-zyhsdqtew 0.25 gm/dL 0.17-0.41 Kmrlq-0-Bjtvzcxjw [place] ([facility]) pkbkr-8-rxzubymoy 0.75 gm/dL 0.42-0.99 Klyad-9-Bwrexopyx [place] ([facility]) pxvs-0-nfrxsxmix 0.42 gm/dL 0.19-0.55 Neif-3-Heaucfhoe AT [facility]) vgzz-0-qwuocmkhl 0.40 gm/dL 0.28-0.60 Deei-6-Hemtmfeei AT [facility]) gamma globulins 1.04 gm/dL 0.65-1.58 Gamma Globulins [facility] ([facility]) spep interpretation see comment Spep Interpreta tion [place] ([facility]) total protein 7.3 gm/dL 6.4-8.2 Total Protein [place] ( [facility]) spep pathologist review rev'd by Anna kumar Spep Pathologist Review [place] ([facility]) ID Date Data Source [id number] 04/07/2021 04:34:00 PM EDT [place] ([facility]) Name Value Range Interpretation Code Description Data Sandra rce(s) Supporting Document(s) PTT lupus type anticoag screen 0-1.2 PTT L upus Type Anticoag Screen [place] ([facility]) ID Date Data Source [id number] 04/07/2021 04:34:00 PM EDT [place] ([facility]) Name Value Range Interpretation Code Description Data Sandra rce(s) Supporting Document(s) erythrocyte sedimentation rate 3 mm/HR 0-20 Eryth rocyte Sedimentation Rate [place] ([facility]) ID Date Data Source [id number] 04/07/2021 04:34:00 PM EDT [facility]) Name Value Range Interpretation Code Description Data Sandra rce(s) Supporting Document(s) estimated average glucose 278 mg/dL 60-110 Above high norm al Estimated Average Glucose [place] ([facility]) Hemoglobin A1c/Hemoglobin.total in Blood 11.3 % Hemoglobin a1C [place] ([facility]) ID Date Data Source [id number] 04/07/2021 04:34:00 PM EDT [facility]) Name Value Range Interpretation Code Description Data Sandra rce(s) Supporting Document(s) antinuclear antibodies direct negative negative Antinu clear Antibodies Direct [facility]) ID Date Data Source [id number] 04/07/2021 04:34:00 PM EDT [facility]) Name Value Range Interpretation Code Description Data Sandra rce(s) Supporting Document(s) vitamin B6,pyridoxal phosphate 13.4 ug/L 5.3-46.7 Vitamin B6,Pyridoxal Phosphate [facility]) ID Date Data Source [id number] 04/07/2021 04:34:00 PM EDT [place] ([facility]) Name Value Range Interpretation Code Description Data Sandra rce(s) Supporting Document(s) vitamin B1 level whole blood 134.8 nmol/L 66.5-200.0 Vitamin B1 Level Whole Blood [place] ([facility]) ID Date Data Source [id number] 04/07/2021 04:34:00 PM [facility] Name Value Range Interpretation Code Description Data Sandra rce(s) Supporting Document(s) vitamin E(alpha tocopherol) 6.2 mg/L 7.0-25.1 Below low nor mal Vitamin E(alpha Tocopherol) [place] ([facility]) vitamin E(gamma tocopherol) 0.7 mg/L 0.5-5.5 Vitamin E(gamma Tocopherol) [facility]) ID Date Data Source [id number] 04/07/2021 04:34:00 PM EDT [facility] Name Value Range Interpretation Code Description Data Sandra rce(s) Supporting Document(s) rheumatoid factor quant < 10.0 <15.0 Rheumatoid F actor Quant [place] ([facility]) ID Date Data Source [id number] 04/07/2021 04:34:00 PM EDT [facility]) Name Value Range Interpretation Code Description Data Sandra rce(s) Supporting Document(s) vitamin B12 level 493 pg/mL Vitamin B12 Level [place] ([facility]) folate 17.7 NG/mL Folate [facility] ([facility]) ID Date Data Source [id number] 04/07/2021 04:34:00 PM EDT [facility] Name Value Range Interpretation Code Description Data Sandra rce(s) Supporting Document(s) albumin % 60.8 % 55.8-66.1 Albumin % [place] ([facility]) dqasl-1-sltpenea % 3.4 % 2.9-4.9 Axfjb-9-Cgoztcld % [place] ([facility]) jcgfd-5-oownhofwn % 10.3 % 7.1-11.8 Yjxll-1-Uzrmmjcu s % [place] ([facility]) gfqr-2-styouaqyd % 5.5 % 4.7-7.2 Uzzu-9-Ojsztpypg % [place] ([facility]) mbke-0-gtsmfiisl % 5.7 % 3.2-6.5 Goky-9-Ulueacxmn % [place] ([facility]) gamma globulin % 14.3 % 11.1-18.8 Gamma Globulin % AT [facility]) brfiy-6-yvmwjvuxy 0.75 gm/dL 0.42-0.99 Gwmup-6-Vophrkvja [place] ([facility]) gspfq-8-jemphevly 0.25 gm/dL 0.17-0.41 Ngvsu-6-Bcfriqgip [place] ([facility]) albumin 4.44 gm/dL 3.29-5.55 Albumin [place] ([facility]) koju-2-nqouablrg 0.40 gm/dL 0.28-0.60 Lcpy-6-Enegcbcjc AT [facility]) fotn-6-weuzptszk 0.42 gm/dL 0.19-0.55 Mkni-4-Ypsvszsdr AT [facility]) gamma globulins 1.04 gm/dL 0.65-1.58 Gamma Globulins [facility] ([facility]) spep interpretation see comment Spep Interpreta tion [place] ([facility]) spep pathologist review rev'd by Anna kumar Spep Pathologist Review [place] ([facility]) total protein 7.3 gm/dL 6.4-8.2 Total Protein [place] ( [facility]) ID Date Data Source [id number] 04/07/2021 04:34:00 PM EDT [place] ([facility]) Name Value Range Interpretation Code Description Data Sandra rce(s) Supporting Document(s) PTT lupus type anticoag screen 0-1.2 PTT L upus Type Anticoag Screen [place] ([facility]) ID Date Data Source [id number] 04/07/2021 04:34:00 PM EDT [place] ([facility]) Name Value Range Interpretation Code Description Data Sandra rce(s) Supporting Document(s) erythrocyte sedimentation rate 3 mm/HR 0-20 Eryth rocyte Sedimentation Rate [place] ([facility]) ID Date Data Source [id number] 04/07/2021 04:34:00 PM EDT [place] ([facility]) Name Value Range Interpretation Code Description Data Sandra rce(s) Supporting Document(s) Hemoglobin A1c/Hemoglobin.total in Blood 11.3 % Hemoglobin a1C [place] ([facility]) estimated average glucose 278 mg/dL 60-110 Above high norm al Estimated Average Glucose [place] ([facility]) ID Date Data Source [id number] 04/07/2021 04:34:00 PM EDT [facility], [facility] Name Value Range Interpretation Code Description Data Sandra rce(s) Supporting Document(s) Antinuclear Antibodies Direct Laboratory test result [facility] ([facility], ) Performed at: [facility] [address] [id number] Aircraft Mechanic: Jaime Chaney MD, Phone: [phone] Performed at: [facility] [id number] Aircraft Mechanic: Andria Dinh MD, Phone: [phone] ID Date Data Source [id number] 04/07/2021 04:34:00 PM EDT [facility], ) Name Value Range Interpretation Code Description Data Sandra rce(s) Supporting Document(s) Thiamine [Mass/volume] in Blood 134.8 nmol/L 66.5-200.0 [facility] ([facility], ) Specimen Comment: Test(s) 099145-Ogxinde E(Alpha Tocopherol); 538777- Specimen Comment: Vitamin E(Gamma Tocopherol); 336137-Pgdpgyb B6; 355422- Specimen Comment: Vit. B1, Whole Blood Specimen Comment: was developed and its performance characteristics Specimen Comment: determined by [facility]. It has not been cleared or approved Specimen Comment: by the Food and Drug Administration. Pyridoxine [Mass/volume] in Serum or Plasma 13.4 ug/L 5.3-46.7 [facility], ) Specimen Comment: Test(s) 012503-Vlwxeyb E(Alpha Tocopherol); 094131- Specimen Comment: Vitamin E(Gamma Tocopherol); 675326-Wnpkqtd B6; 122337- Specimen Comment: Vit. B1, Whole Blood Specimen Comment: was developed and its performance characteristics Specimen Comment: determined by [facility]. It has not been cleared or approved Specimen Comment: by the Food and Drug Administration. ID Date Data Source [id number] 04/07/2021 04:34:00 PM EDT [facility], ) Name Value Range Interpretation Code Description Data Sadnra rce(s) Supporting Document(s) Vitamin E(Alpha Tocopherol) 6.2 mg/L 7.0-25.1 [facility], ) Vitamin E(Gamma Tocopherol) 0.7 mg/L 0.5-5.5 [facility]) Reference intervals for alpha and gamma- tocopherol determined from National Health and Nutrition Examination Survey, 5852-0331. Individuals with alpha-tocopherol levels less than 5.0 mg/L are considered vitamin E deficient. ID Date Data Source [id number] 04/07/2021 04:34:00 PM EDT [facility]) Name Value Range Interpretation Code Description Data Sandra rce(s) Supporting Document(s) Rheumatoid factor [Units/volume] in Serum or Plasma Laboratory test result [facility], ) <content>note:<nlbl:demographic_changed> </content>
<content></content> ID Date Data Source [id number] 04/07/2021 04:34:00 PM EDT [facility], ) Name Value Range Interpretation Code Description Data Sandra rce(s) Supporting Document(s) Vitamin B12 Level 493 pg/mL [facility] ([facility]) VITAMIN B12 NORMAL RANGE NORMAL 247 - 911 PG/ML INDETERMINATE 211 - 246 PG/ML DEFICIENT LESS THAN 211 PG/ML Folate 17.7 ng/mL [facility] ([facility]) FOLATE NORMAL RANGE NORMAL GREATER THAN 5.4 NG/ML INDETERMINATE 3.4-5.4 NG/ML DEFICIENT LESS THAN 3.4 NG/ML ID Date Data Source [id number] 04/07/2021 04:34:00 PM EDT [facility] ([facility]) Name Value Range Interpretation Code Description Data Sandra rce(s) Supporting Document(s) Albumin % 60.8 % 55.8-66.1 [facility] ([facility]) Glxrb-4-Qtpoofga % 3.4 % 2.9-4.9 [facility] ([facility]) Xznhd-9-Mlkcsflcu % 10.3 % 7.1-11.8 [facility] ([facility]) Trtd-7-Dlzupplmd % 5.5 % 4.7-7.2 [facility] ([facility]) Ayqp-5-Kcxwzklfv % 5.7 % 3.2-6.5 [facility] Albumin 4.44 GM/DL 3.29-5.55 [facility] ([facility]) Gamma Globulin % 14.3 % 11.1-18.8 [facility]) Uocsf-2-Ixalvpesz 0.25 GM/DL 0.17-0.41 [facility] ([facility]) Daqoa-9-Mlwvlcxmh 0.75 GM/DL 0.42-0.99 [facility] Ydew-1-Qlsbbshpe 0.42 GM/DL 0.19-0.55 [facility]) Mppk-9-Elmjwgnun 0.40 GM/DL 0.28-0.60 [facility]) Gamma Globulins 1.04 GM/DL 0.65-1.58 [facility]) Total Protein 7.3 GM/DL 6.4-8.2 [facility] ([facility], ) Spep Interpretation Laboratory test result [facility] ([facility]) NO M-SPIKE(S)NOTED. Laboratory test finding (navigational concept) Laboratory test result [facility] ([facility]) REV'D BY Anna KUMAR ID Date Data Source [id number] 04/07/2021 04:34:00 PM EDT [facility] ([facility], ) Name Value Range Interpretation Code Description Data Sandra rce(s) Supporting Document(s) Hemoglobin A1c 11.3 % [facility] ([facility], ) <content>REFERENCE RANGES:</content><br/ ><content></content>
<content><=5.6% NORMAL</content>
<content>5.7-6.4% SUGGESTS IMPAIRED GLUCOSE METABOLISM/PREDIABETIC</content>
<content>>= 6.5% ABNORMAL</content>
<content></content> Estimated Average Glucose 278 mg/dL 60-110 [facility] ([facility], ) ID Date Data Source [id number] 04/07/2021 04:34:00 PM EDT [facility]) Name Value Range Interpretation Code Description Data Sandra rce(s) Supporting Document(s) antinuclear antibodies direct negative negative Antinu clear Antibodies Direct [facility]) ID Date Data Source [id number] 04/07/2021 04:34:00 PM EDT [facility]) Name Value Range Interpretation Code Description Data Sandra rce(s) Supporting Document(s) antinuclear antibodies direct negative negative Antinu clear Antibodies Direct [place] ([facility]) ID Date Data Source [id number] 04/07/2021 04:34:00 PM EDT [facility] ([facility]) Name Value Range Interpretation Code Description Data Sandra rce(s) Supporting Document(s) vitamin B6,pyridoxal phosphate 13.4 ug/L 5.3-46.7 Vitamin B6,Pyridoxal Phosphate [facility]) ID Date Data Source [id number] 04/07/2021 04:34:00 PM EDT [facility]) Name Value Range Interpretation Code Description Data Sandra rce(s) Supporting Document(s) vitamin B1 level whole blood 134.8 nmol/L 66.5-200.0 Vitamin B1 Level Whole Blood [place] ([facility]) ID Date Data Source [id number] 04/07/2021 04:34:00 PM [facility] Name Value Range Interpretation Code Description Data Sandra rce(s) Supporting Document(s) vitamin E(alpha tocopherol) 6.2 mg/L 7.0-25.1 Below low nor mal Vitamin E(alpha Tocopherol) [place] ([facility]) vitamin E(gamma tocopherol) 0.7 mg/L 0.5-5.5 Vitamin E(gamma Tocopherol) [facility]) ID Date Data Source [id number] 04/07/2021 04:34:00 PM EDT [facility]) Name Value Range Interpretation Code Description Data Sandra rce(s) Supporting Document(s) rheumatoid factor quant < 10.0 <15.0 Rheumatoid F actor Quant [facility]) ID Date Data Source [id number] 04/07/2021 04:34:00 PM EDT [facility]) Name Value Range Interpretation Code Description Data Sandra rce(s) Supporting Document(s) vitamin B12 level 493 pg/mL [facility] folate 17.7 NG/mL Folate [facility] ([facility]) ID Date Data Source [id number] 04/07/2021 04:34:00 PM EDT [facility]) Name Value Range Interpretation Code Description Data Sandra rce(s) Supporting Document(s) dmvon-1-kwykwrfn % 3.4 % 2.9-4.9 Dmoih-8-Btmsuofi % [facility] ([facility]) albumin % 60.8 % 55.8-66.1 Albumin % [place] ([facility]) iwmx-7-gdiiaxwka % 5.7 % 3.2-6.5 Ccpp-3-Ahqypwybu % [facility] ([facility]) wsqv-3-xbsfgntob % 5.5 % 4.7-7.2 Jrll-1-Mlhoffqoh % [facility] ([facility]) iqeam-6-qprhxkomp % 10.3 % 7.1-11.8 Dxzzy-3-Thhbqhwt s % [facility] ([facility]) albumin 4.44 gm/dL 3.29-5.55 Albumin [facility] ([facility]) ioqwx-9-xnkucmwkb 0.25 gm/dL 0.17-0.41 Btroa-2-Txnirvbuy [place] ([facility]) gamma globulin % 14.3 % 11.1-18.8 Gamma Globulin % AT [facility]) wzgb-0-oqnrtuvmx 0.42 gm/dL 0.19-0.55 Pprc-8-Xkgwjuxpm AT [facility]) pprq-9-juoavoqjs 0.40 gm/dL 0.28-0.60 Fgii-8-Vbxivhlds AT [facility] ([facility]) zefob-5-yakdawhjl 0.75 gm/dL 0.42-0.99 Mypwm-7-Lyajjjuou [place] ([facility]) gamma globulins 1.04 gm/dL 0.65-1.58 Gamma Globulins [place] ([facility]) spep interpretation see comment Spep Interpreta tion [place] ([facility]) total protein 7.3 gm/dL 6.4-8.2 Total Protein [place] ( [facility]) spep pathologist review rev'd by Anna kumar Spep Pathologist Review [place] ([facility]) ID Date Data Source [id number] 04/07/2021 04:34:00 PM EDT [place] ([facility]) Name Value Range Interpretation Code Description Data Sandra rce(s) Supporting Document(s) PTT lupus type anticoag screen 0-1.2 PTT L upus Type Anticoag Screen [place] ([facility]) ID Date Data Source [id number] 04/07/2021 04:34:00 PM EDT [place] ([facility]) Name Value Range Interpretation Code Description Data Sandra rce(s) Supporting Document(s) erythrocyte sedimentation rate 3 mm/HR 0-20 Eryth rocyte Sedimentation Rate [place] ([facility]) ID Date Data Source [id number] 04/07/2021 04:34:00 PM EDT [place] ([facility]) Name Value Range Interpretation Code Description Data Sandra rce(s) Supporting Document(s) estimated average glucose 278 mg/dL 60-110 Above high norm al Estimated Average Glucose [place] ([facility]) Hemoglobin A1c/Hemoglobin.total in Blood 11.3 % Hemoglobin a1C [place] ([facility]) ID Date Data Source [id number] 04/07/2021 04:34:00 PM EDT [facility] ([facility], ) Name Value Range Interpretation Code Description Data Sandra rce(s) Supporting Document(s) PTT Lupus Type Anticoag Screen 0.8 0-1.2 [facility] ([facility], ) RESULT IS LESS THAN 1.2, NO [...] a specific inhibitor. ID Date Data Source [id number] 04/07/2021 04:34:00 PM EDT [facility] ([facility], ) Name Value Range Interpretation Code Description Data Sandra rce(s) Supporting Document(s) Erythrocyte sedimentation rate by 2H Westergren method 3 mm/hr 0-2 0 [facility] ([facility], ) ID Date Data Source [id number] 03/10/2021 08:51:00 AM EDT [facility]) Name Value Range Interpretation Code Description Data Sandra rce(s) Supporting Document(s) Hemoglobin A1c/Hemoglobin.total in Blood 13.2 % Abnormal (applies to non- numeric results) Hba1C [place] ([facility]) ID Date Data Source [id number] 03/10/2021 08:51:00 AM EDT [facility]) Name Value Range Interpretation Code Description Data Sandra rce(s) Supporting Document(s) Hemoglobin A1c/Hemoglobin.total in Blood 13.2 % Abnormal (applies to non- numeric results) Hba1C [place] ([facility]) ID Date Data Source [id number] 03/10/2021 08:51:00 AM EDT [facility]) Name Value Range Interpretation Code Description Data Sandra rce(s) Supporting Document(s) Hemoglobin A1c/Hemoglobin.total in Blood 13.2 % Abnormal (applies to non- numeric results) Hba1C [place] ([facility]) ID Date Data Source [id number] 03/10/2021 08:51:00 AM EDT [facility]) Name Value Range Interpretation Code Description Data Sandra rce(s) Supporting Document(s) Hemoglobin A1c/Hemoglobin.total in Blood 13.2 % Abnormal (applies to non- numeric results) Hba1C [place] ([facility]) ID Date Data Source [id number] 03/10/2021 08:51:00 AM EDT [facility]) Name Value Range Interpretation Code Description Data Sandra rce(s) Supporting Document(s) Hemoglobin A1c/Hemoglobin.total in Blood 13.2 % Abnormal (applies to non- numeric results) Hba1C [place] ([facility]) ID Date Data Source [id number] 03/10/2021 08:51:00 AM EDT [place] ([facility]) Name Value Range Interpretation Code Description Data Sandra rce(s) Supporting Document(s) Hemoglobin A1c/Hemoglobin.total in Blood 13.2 % Abnormal (applies to non- numeric results) Hba1C [place] ([facility]) ID Date Data Source [id number] 03/10/2021 08:51:00 AM EDT [place] ([facility]) Name Value Range Interpretation Code Description Data Sandra rce(s) Supporting Document(s) Hemoglobin A1c/Hemoglobin.total in Blood 13.2 % Abnormal (applies to non- numeric results) Hba1C [place] ([facility]) ID Date Data Source [id number] 03/10/2021 08:51:00 AM EDT [place] ([facility]) Name Value Range Interpretation Code Description Data Sandra rce(s) Supporting Document(s) Hemoglobin A1c/Hemoglobin.total in Blood 13.2 % Abnormal (applies to non- numeric results) Hba1C [place] ([facility]) ID Date Data Source [id number] 03/09/2021 08:39:00 AM EDT [place] ([facility]) Name Value Range Interpretation Code Description Data Sandra rce(s) Supporting Document(s) jesse/creat ratio 66.9 mcg/mg 0.0-30.0 Above high normal Jesse/creat Ra susy [place] ([facility]) malb urine siemens 35.3 mg/L Malb Urine Siemen s [place] ([facility]) creatinine, urine 52.7 mg/dL Creatinine, Urine [place] ([facility]) ID Date Data Source [id number] 03/09/2021 08:39:00 AM EDT [facility]) Name Value Range Interpretation Code Description Data Sandra rce(s) Supporting Document(s) cholesterol level 145 mg/dL <200 Cholesterol Level [place] ([facility]) triglycerides level 176 mg/dL <150 Above high normal Triglycer ides Level [place] ([facility]) non-HDL-C 98 mg/dL Non-hdl-c [place] ([facility]) Cholesterol in LDL [Mass/volume] in Serum or Plasma 63 mg/dL <1 00 LDL Cholesterol [place] ([facility]) HDL cholesterol 47 mg/dL >40 HDL Cholesterol [facility] ([facility]) cholesterol risk ratio <5 Cholesterol R isk Ratio [place] ([facility]) ID Date Data Source [id number] 03/09/2021 08:39:00 AM EDT [place] ([facility]) Name Value Range Interpretation Code Description Data Sandra rce(s) Supporting Document(s) blood urea nitrogen 15 mg/dL 7-18 Blood Urea Nitro gen [place] ([facility]) glucose, fasting 326 mg/dL 70-100 Above high normal Glucose, Fas ting [place] ([facility]) creatinine for GFR 1.04 mg/dL 0.70-1.30 Creatinine for GF R [place] ([facility]) glomerular filtration rate > 60.0 >56 Glomerula r Filtration Rate [place] ([facility]) sodium level 137 mEq/L 136-145 Sodium Level [place] ([facility]) potassium serum 4.3 mEq/L 3.5-5.1 Potassium Serum [facility] ([facility]) chloride level 102 mEq/L 98-107 Chloride Level [place] ([facility]) anion gap 4 mEq/L 8-16 Below low normal Anion Gap [place] ( [facility]) carbon dioxide level 31 mEq/L 21-32 Carbon Dioxide Level [place] ([facility]) ALT/SGPT 29 U/L 12-78 ALT/SGPT [place] ([facility]) AST/SGOT 11 U/L 7-37 AST/SGOT [place] ([facility]) calcium level 9.3 mg/dL 8.5-10.1 Calcium Level [place] ( [facility]) alkaline phosphatase 74 U/L 45-117 Alkaline Phosph atase [place] ([facility]) total protein 7.9 gm/dL 6.4-8.2 Total Protein [place] ( [facility]) bilirubin,total 1.1 mg/dL 0.2-1.0 Above high normal Bilirubin,tot al [place] ([facility]) albumin 4.2 gm/dL 3.2-5.2 Albumin [place] ([facility]) albumin/globulin ratio Albumin/globu jose l Ratio [place] ([facility]) ID Date Data Source [id number] 03/09/2021 08:39:00 AM EDT [place] ([facility]) Name Value Range Interpretation Code Description Data Sandra rce(s) Supporting Document(s) white blood count 6.3 10 4.0-10.0 White Blood Count [place] ([facility]) red blood count 5.76 10 4.30-6.10 Red Blood Count [facility] ([facility]) mean corpuscular volume 90.1 fL 80.0-96.0 Mean Corpusc ular Volume [place] ([facility]) hemoglobin 18.4 g/dL 13.5-17.5 Above high normal Hemoglobin [place] ([facility]) hematocrit 51.9 % 42.0-52.0 Hematocrit [place] ([facility]) mean corpuscular HGB conc 35.5 g/dL 32.0-36.5 Mean Corpu scular HGB Conc [place] ([facility]) mean corpuscular hemoglobin 31.9 pg 27.0-33.0 Mean Cor puscular Hemoglobin [place] ([facility]) red cell distribution width 12.7 % 11.5-14.5 Red Cell Distribution Width [place] ([facility]) neutrophils % 59.4 % 36.0-66.0 Neutrophils % [place] ( [facility]) platelet count, automated 171 10 150-450 Platelet C ount, Automated [place] ([facility]) lymph % 28.3 % 24.0-44.0 Lymph % [place] ([facility]) eos % 1.8 % 0.0-3.0 Eos % [place] ([facility]) mono % 9.4 % 2.0-8.0 Above high normal [place] % [place] ([facility]) baso % 0.5 % 0.0-1.0 Baso % [place] ([facility]) nucleated red blood cell % 0.0 % 0-0 Nucleated Red Blood Cell % [place] ([facility]) immature granulocyte % 0.6 % 0-3.0 Immature Gran ulocyte % [place] ([facility]) lymph # 1.8 10 1.5-5.0 Lymph # [place] ([facility]) neutrophils # 3.7 10 1.5-8.5 Neutrophils # [place] ( [facility]) mono # 0.6 10 0.0-0.8 [place] # [place] ([facility]) baso # 0.0 10 0.0-0.2 Baso # [place] ([facility]) eos # 0.1 10 0.0-0.5 Eos # [place] ([facility]) ID Date Data Source [id number] 03/09/2021 08:39:00 AM EDT [place] ([facility]) Name Value Range Interpretation Code Description Data Sandra rce(s) Supporting Document(s) creatinine, urine 52.7 mg/dL Creatinine, Urine [place] ([facility]) malb urine siemens 35.3 mg/L Malb Urine Siemen s [place] ([facility]) jesse/creat ratio 66.9 mcg/mg 0.0-30.0 Above high normal Jesse/creat Ra susy [place] ([facility]) ID Date Data Source [id number] 03/09/2021 08:39:00 AM EDT [place] ([facility]) Name Value Range Interpretation Code Description Data Sandra rce(s) Supporting Document(s) cholesterol level 145 mg/dL <200 Cholesterol Level [place] ([facility]) triglycerides level 176 mg/dL <150 Above high normal Triglycer ides Level [place] ([facility]) HDL cholesterol 47 mg/dL >40 HDL Cholesterol [facility] ([facility]) cholesterol risk ratio <5 Cholesterol R isk Ratio [place] ([facility]) non-HDL-C 98 mg/dL Non-hdl-c [place] ([facility]) Cholesterol in LDL [Mass/volume] in Serum or Plasma 63 mg/dL <1 00 LDL Cholesterol [place] ([facility]) ID Date Data Source [id number] 03/09/2021 08:39:00 AM EDT [place] ([facility]) Name Value Range Interpretation Code Description Data Sandra rce(s) Supporting Document(s) glucose, fasting 326 mg/dL 70-100 Above high normal Glucose, Fas ting [place] ([facility]) blood urea nitrogen 15 mg/dL 7-18 Blood Urea Nitro gen [place] ([facility]) creatinine for GFR 1.04 mg/dL 0.70-1.30 Creatinine for GF R [place] ([facility]) glomerular filtration rate > 60.0 >56 Glomerula r Filtration Rate [place] ([facility]) potassium serum 4.3 mEq/L 3.5-5.1 Potassium Serum [facility] ([facility]) sodium level 137 mEq/L 136-145 Sodium Level [place] ([facility]) anion gap 4 mEq/L 8-16 Below low normal Anion Gap [place] ( [facility]) chloride level 102 mEq/L 98-107 Chloride Level [place] ([facility]) carbon dioxide level 31 mEq/L 21-32 Carbon Dioxide Level [place] ([facility]) ALT/SGPT 29 U/L 12-78 ALT/SGPT [place] ([facility]) AST/SGOT 11 U/L 7-37 AST/SGOT [place] ([facility]) calcium level 9.3 mg/dL 8.5-10.1 Calcium Level [place] ( [facility]) alkaline phosphatase 74 U/L 45-117 Alkaline Phosph atase [place] ([facility]) bilirubin,total 1.1 mg/dL 0.2-1.0 Above high normal Bilirubin,tot al [place] ([facility]) total protein 7.9 gm/dL 6.4-8.2 Total Protein [place] ( [facility]) albumin 4.2 gm/dL 3.2-5.2 Albumin [place] ([facility]) albumin/globulin ratio Albumin/globu jose l Ratio [place] ([facility]) ID Date Data Source [id number] 03/09/2021 08:39:00 AM EDT [place] ([facility]) Name Value Range Interpretation Code Description Data Sandra rce(s) Supporting Document(s) white blood count 6.3 10 4.0-10.0 White Blood Count [place] ([facility]) red blood count 5.76 10 4.30-6.10 Red Blood Count [facility] ([facility]) hemoglobin 18.4 g/dL 13.5-17.5 Above high normal Hemoglobin [place] ([facility]) mean corpuscular volume 90.1 fL 80.0-96.0 Mean Corpusc ular Volume [place] ([facility]) hematocrit 51.9 % 42.0-52.0 Hematocrit [place] ([facility]) red cell distribution width 12.7 % 11.5-14.5 Red Cell Distribution Width [place] ([facility]) mean corpuscular hemoglobin 31.9 pg 27.0-33.0 Mean Cor puscular Hemoglobin [place] ([facility]) mean corpuscular HGB conc 35.5 g/dL 32.0-36.5 Mean Corpu scular HGB Conc [place] ([facility]) neutrophils % 59.4 % 36.0-66.0 Neutrophils % [place] ( [facility]) platelet count, automated 171 10 150-450 Platelet C ount, Automated [place] ([facility]) mono % 9.4 % 2.0-8.0 Above high normal [place] % [facility] ([facility]) eos % 1.8 % 0.0-3.0 Eos % [place] ([facility]) lymph % 28.3 % 24.0-44.0 Lymph % [place] ([facility]) immature granulocyte % 0.6 % 0-3.0 Immature Gran ulocyte % [place] ([facility]) baso % 0.5 % 0.0-1.0 Baso % [place] ([facility]) nucleated red blood cell % 0.0 % 0-0 Nucleated Red Blood Cell % [facility] ([facility]) neutrophils # 3.7 10 1.5-8.5 Neutrophils # [place] ( [facility]) mono # 0.6 10 0.0-0.8 [place] # [facility] ([facility]) lymph # 1.8 10 1.5-5.0 Lymph # [facility] ([facility]) baso # 0.0 10 0.0-0.2 Baso # [facility] ([facility]) eos # 0.1 10 0.0-0.5 Eos # [facility] ([facility]) ID Date Data Source [id number] 03/09/2021 08:39:00 AM EDT [place] ([facility]) Name Value Range Interpretation Code Description Data Sandra rce(s) Supporting Document(s) creatinine, urine 52.7 mg/dL Creatinine, Urine [place] ([facility]) jesse/creat ratio 66.9 mcg/mg 0.0-30.0 Above high normal Jesse/creat Ra susy [facility] ([facility]) malb urine siemens 35.3 mg/L Malb Urine Siemen s [facility] ([facility]) ID Date Data Source [id number] 03/09/2021 08:39:00 AM EDT [place] ([facility]) Name Value Range Interpretation Code Description Data Sandra rce(s) Supporting Document(s) triglycerides level 176 mg/dL <150 Above high normal Triglycer ides Level [facility] ([facility]) Cholesterol in LDL [Mass/volume] in Serum or Plasma 63 mg/dL <1 00 LDL Cholesterol [facility] ([facility]) cholesterol level 145 mg/dL <200 Cholesterol Level [facility] ([facility]) HDL cholesterol 47 mg/dL >40 HDL Cholesterol [facility] ([facility]) non-HDL-C 98 mg/dL Non-hdl-c [facility] ([facility]) cholesterol risk ratio <5 Cholesterol R isk Ratio [facility] ([facility]) ID Date Data Source [id number] 03/09/2021 08:39:00 AM EDT [place] ([facility]) Name Value Range Interpretation Code Description Data Sandra rce(s) Supporting Document(s) glucose, fasting 326 mg/dL 70-100 Above high normal Glucose, Fas ting [facility] ([facility]) creatinine for GFR 1.04 mg/dL 0.70-1.30 Creatinine for GF R [place] ([facility]) blood urea nitrogen 15 mg/dL 7-18 Blood Urea Nitro gen [place] ([facility]) potassium serum 4.3 mEq/L 3.5-5.1 Potassium Serum [facility] ([facility]) chloride level 102 mEq/L 98-107 Chloride Level [place] ([facility]) glomerular filtration rate > 60.0 >56 Glomerula r Filtration Rate [place] ([facility]) sodium level 137 mEq/L 136-145 Sodium Level [facility] ([facility]) anion gap 4 mEq/L 8-16 Below low normal Anion Gap [facility] ( [facility]) calcium level 9.3 mg/dL 8.5-10.1 Calcium Level [facility] ( [facility]) carbon dioxide level 31 mEq/L 21-32 Carbon Dioxide Level [facility] ([facility]) ALT/SGPT 29 U/L 12-78 ALT/SGPT [facility] ([facility]) AST/SGOT 11 U/L 7-37 AST/SGOT [facility] ([facility]) alkaline phosphatase 74 U/L 45-117 Alkaline Phosph atase [facility] ([facility]) bilirubin,total 1.1 mg/dL 0.2-1.0 Above high normal Bilirubin,tot al [facility] ([facility]) albumin 4.2 gm/dL 3.2-5.2 Albumin [facility] ([facility]) albumin/globulin ratio Albumin/globu jose l Ratio [facility] ([facility]) total protein 7.9 gm/dL 6.4-8.2 Total Protein [facility] ( [facility]) ID Date Data Source [id number] 03/09/2021 08:39:00 AM EDT [place] ([facility]) Name Value Range Interpretation Code Description Data Sandra rce(s) Supporting Document(s) white blood count 6.3 10 4.0-10.0 White Blood Count [place] ([facility]) hemoglobin 18.4 g/dL 13.5-17.5 Above high normal Hemoglobin [facility] ([facility]) red blood count 5.76 10 4.30-6.10 Red Blood Count [facility] ([facility]) hematocrit 51.9 % 42.0-52.0 Hematocrit [facility] ([facility]) mean corpuscular volume 90.1 fL 80.0-96.0 Mean Corpusc ular Volume [facility] ([facility]) mean corpuscular hemoglobin 31.9 pg 27.0-33.0 Mean Cor puscular Hemoglobin [facility] ([facility]) mean corpuscular HGB conc 35.5 g/dL 32.0-36.5 Mean Corpu scular HGB Conc [facility] ([facility]) red cell distribution width 12.7 % 11.5-14.5 Red Cell Distribution Width [facility] ([facility]) platelet count, automated 171 10 150-450 Platelet C ount, Automated [facility] ([facility]) neutrophils % 59.4 % 36.0-66.0 Neutrophils % [facility] ( [facility]) mono % 9.4 % 2.0-8.0 Above high normal [place] % [facility] ([facility]) lymph % 28.3 % 24.0-44.0 Lymph % [facility] ([facility]) eos % 1.8 % 0.0-3.0 Eos % [facility] ([facility]) baso % 0.5 % 0.0-1.0 Baso % [facility] ([facility]) immature granulocyte % 0.6 % 0-3.0 Immature Gran ulocyte % [facility] ([facility]) nucleated red blood cell % 0.0 % 0-0 Nucleated Red Blood Cell % [facility] ([facility]) eos # 0.1 10 0.0-0.5 Eos # [facility] ([facility]) mono # 0.6 10 0.0-0.8 [place] # [facility] ([facility]) lymph # 1.8 10 1.5-5.0 Lymph # [facility] ([facility]) neutrophils # 3.7 10 1.5-8.5 Neutrophils # [facility] ( [facility]) baso # 0.0 10 0.0-0.2 Baso # [facility] ([facility]) ID Date Data Source [id number] 03/09/2021 08:39:00 AM EDT [place] ([facility]) Name Value Range Interpretation Code Description Data Sandra rce(s) Supporting Document(s) malb urine siemens 35.3 mg/L Malb Urine Siemen s [place] ([facility]) creatinine, urine 52.7 mg/dL Creatinine, Urine [facility] ([facility]) jesse/creat ratio 66.9 mcg/mg 0.0-30.0 Above high normal Jesse/creat Ra susy [place] ([facility]) ID Date Data Source [id number] 03/09/2021 08:39:00 AM EDT [place] ([facility]) Name Value Range Interpretation Code Description Data Sandra rce(s) Supporting Document(s) Cholesterol in LDL [Mass/volume] in Serum or Plasma 63 mg/dL <1 00 LDL Cholesterol [facility] ([facility]) HDL cholesterol 47 mg/dL >40 HDL Cholesterol [facility] ([facility]) triglycerides level 176 mg/dL <150 Above high normal Triglycer ides Level [facility] ([facility]) cholesterol level 145 mg/dL <200 Cholesterol Level [facility] ([facility]) cholesterol risk ratio <5 Cholesterol R isk Ratio [facility] ([facility]) non-HDL-C 98 mg/dL Non-hdl-c [facility] ([facility]) ID Date Data Source [id number] 03/09/2021 08:39:00 AM EDT [place] ([facility]) Name Value Range Interpretation Code Description Data Sandra rce(s) Supporting Document(s) glomerular filtration rate > 60.0 >56 Glomerula r Filtration Rate [facility] ([facility]) glucose, fasting 326 mg/dL 70-100 Above high normal Glucose, Fas ting [facility] ([facility]) blood urea nitrogen 15 mg/dL 7-18 Blood Urea Nitro gen [facility] ([facility]) creatinine for GFR 1.04 mg/dL 0.70-1.30 Creatinine for GF R [place] ([facility]) potassium serum 4.3 mEq/L 3.5-5.1 Potassium Serum [facility] ([facility]) sodium level 137 mEq/L 136-145 Sodium Level [facility] ([facility]) chloride level 102 mEq/L 98-107 Chloride Level [facility] ([facility]) carbon dioxide level 31 mEq/L 21-32 Carbon Dioxide Level [facility] ([facility]) AST/SGOT 11 U/L 7-37 AST/SGOT [facility] ([facility]) anion gap 4 mEq/L 8-16 Below low normal Anion Gap [place] ( [facility]) calcium level 9.3 mg/dL 8.5-10.1 Calcium Level [place] ( [facility]) alkaline phosphatase 74 U/L 45-117 Alkaline Phosph atase [facility] ([facility]) ALT/SGPT 29 U/L 12-78 ALT/SGPT [facility] ([facility]) bilirubin,total 1.1 mg/dL 0.2-1.0 Above high normal Bilirubin,tot al [facility] ([facility]) total protein 7.9 gm/dL 6.4-8.2 Total Protein [place] ( [facility]) albumin 4.2 gm/dL 3.2-5.2 Albumin [place] ([facility]) albumin/globulin ratio Albumin/globu jose l Ratio [facility] ([facility]) ID Date Data Source [id number] 03/09/2021 08:39:00 AM EDT [place] ([facility]) Name Value Range Interpretation Code Description Data Sandra rce(s) Supporting Document(s) red blood count 5.76 10 4.30-6.10 Red Blood Count [facility] ([facility]) white blood count 6.3 10 4.0-10.0 White Blood Count [facility] ([facility]) hemoglobin 18.4 g/dL 13.5-17.5 Above high normal Hemoglobin [facility] ([facility]) mean corpuscular volume 90.1 fL 80.0-96.0 Mean Corpusc ular Volume [facility] ([facility]) hematocrit 51.9 % 42.0-52.0 Hematocrit [facility] ([facility]) mean corpuscular hemoglobin 31.9 pg 27.0-33.0 Mean Cor puscular Hemoglobin [facility] ([facility]) mean corpuscular HGB conc 35.5 g/dL 32.0-36.5 Mean Corpu scular HGB Conc [place] ([facility]) red cell distribution width 12.7 % 11.5-14.5 Red Cell Distribution Width [facility] ([facility]) lymph % 28.3 % 24.0-44.0 Lymph % [place] ([facility]) mono % 9.4 % 2.0-8.0 Above high normal [place] % [place] ([facility]) platelet count, automated 171 10 150-450 Platelet C ount, Automated [facility] ([facility]) neutrophils % 59.4 % 36.0-66.0 Neutrophils % [facility] ( [facility]) immature granulocyte % 0.6 % 0-3.0 Immature Gran ulocyte % [facility] ([facility]) baso % 0.5 % 0.0-1.0 Baso % [facility] ([facility]) eos % 1.8 % 0.0-3.0 Eos % [facility] ([facility]) lymph # 1.8 10 1.5-5.0 Lymph # [facility] ([facility]) mono # 0.6 10 0.0-0.8 [place] # [facility] ([facility]) nucleated red blood cell % 0.0 % 0-0 Nucleated Red Blood Cell % [facility] ([facility]) neutrophils # 3.7 10 1.5-8.5 Neutrophils # [facility] ( [facility]) eos # 0.1 10 0.0-0.5 Eos # [facility] ([facility]) baso # 0.0 10 0.0-0.2 Baso # [facility] ([facility]) ID Date Data Source [id number] 03/09/2021 08:39:00 AM EDT [facility] ([facility]) Name Value Range Interpretation Code Description Data Sandra rce(s) Supporting Document(s) creatinine, urine 52.7 mg/dL Creatinine, Urine VANESSA ([facility]) malb urine siemens 35.3 mg/L Malb Urine Siemen s VANESSA ([facility]) jesse/creat ratio 66.9 mcg/mg 0.0-30.0 Above high normal Jesse/creat Ra susy VANESSA ([facility]) ID Date Data Source [id number] 03/09/2021 08:39:00 AM EDT [place] ([facility]) Name Value Range Interpretation Code Description Data Sandra rce(s) Supporting Document(s) cholesterol level 145 mg/dL <200 Cholesterol Level VANESSA ([facility]) HDL cholesterol 47 mg/dL >40 HDL Cholesterol ATHE NA ([facility]) triglycerides level 176 mg/dL <150 Above high normal Triglycer ides Level VANESSA ([facility]) non-HDL-C 98 mg/dL Non-hdl-c VANESSA ([facility]) cholesterol risk ratio <5 Cholesterol R isk Ratio VANESSA ([facility]) Cholesterol in LDL [Mass/volume] in Serum or Plasma 63 mg/dL <1 00 LDL Cholesterol VANESSA ([facility]) ID Date Data Source [id number] 03/09/2021 08:39:00 AM EDT [place] ([facility]) Name Value Range Interpretation Code Description Data Sandra rce(s) Supporting Document(s) malb urine siemens 35.3 mg/L Malb Urine Siemen s VANESSA ([facility]) creatinine, urine 52.7 mg/dL Creatinine, Urine VANESSA ([facility]) jesse/creat ratio 66.9 mcg/mg 0.0-30.0 Above high normal Jesse/creat Ra susy VANESSA ([facility]) ID Date Data Source [id number] 03/09/2021 08:39:00 AM EDT [place] ([facility]) Name Value Range Interpretation Code Description Data Sandra rce(s) Supporting Document(s) cholesterol level 145 mg/dL <200 Cholesterol Level VANESSA ([facility]) triglycerides level 176 mg/dL <150 Above high normal Triglycer ides Level VANESSA ([facility]) HDL cholesterol 47 mg/dL >40 HDL Cholesterol ATHE NA ([facility]) Cholesterol in LDL [Mass/volume] in Serum or Plasma 63 mg/dL <1 00 LDL Cholesterol VANESSA ([facility]) cholesterol risk ratio <5 Cholesterol R isk Ratio VANESSA ([facility]) non-HDL-C 98 mg/dL Non-hdl-c V[facility]ESSA ([facility]) ID Date Data Source [id number] 03/09/2021 08:39:00 AM EDT [place] ([facility]) Name Value Range Interpretation Code Description Data Sandra rce(s) Supporting Document(s) glucose, fasting 326 mg/dL 70-100 Above high normal Glucose, Fas ting VANESSA ([facility]) blood urea nitrogen 15 mg/dL 7-18 Blood Urea Nitro gen VANESSA ([facility]) sodium level 137 mEq/L 136-145 Sodium Level VANESSA ([facility]) creatinine for GFR 1.04 mg/dL 0.70-1.30 Creatinine for GF R VANESSA ([facility]) glomerular filtration rate > 60.0 >56 Glomerula r Filtration Rate VANESSA ([facility]) potassium serum 4.3 mEq/L 3.5-5.1 Potassium Serum ATHE NA ([facility]) anion gap 4 mEq/L 8-16 Below low normal Anion Gap VANESSA ( [facility]) chloride level 102 mEq/L 98-107 Chloride Level VANESSA ([facility]) carbon dioxide level 31 mEq/L 21-32 Carbon Dioxide Level V[facility]ESSA ([facility]) calcium level 9.3 mg/dL 8.5-10.1 Calcium Level V[place] ( [facility]) AST/SGOT 11 U/L 7-37 AST/SGOT [facility] ([facility]) ALT/SGPT 29 U/L 12-78 ALT/SGPT [facility] ([facility]) total protein 7.9 gm/dL 6.4-8.2 Total Protein V[facility]ESSA ( [facility]) albumin 4.2 gm/dL 3.2-5.2 Albumin V[facility]ESSA ([facility]) bilirubin,total 1.1 mg/dL 0.2-1.0 Above high normal Bilirubin,tot al V[facility]ESSA ([facility]) alkaline phosphatase 74 U/L 45-117 Alkaline Phosph atase V[facility]ESSA ([facility]) albumin/globulin ratio Albumin/globu jose l Ratio VANESSA ([facility]) ID Date Data Source [id number] 03/09/2021 08:39:00 AM EDT [place] ([facility]) Name Value Range Interpretation Code Description Data Sandra rce(s) Supporting Document(s) white blood count 6.3 10 4.0-10.0 White Blood Count VANESSA ([facility]) red blood count 5.76 10 4.30-6.10 Red Blood Count ATHE ([facility]) hemoglobin 18.4 g/dL 13.5-17.5 Above high normal Hemoglobin VANESSA ([facility]) mean corpuscular volume 90.1 fL 80.0-96.0 Mean Corpusc ular Volume VANESSA ([facility]) hematocrit 51.9 % 42.0-52.0 Hematocrit V[facility]ESSA ([facility]) mean corpuscular HGB conc 35.5 g/dL 32.0-36.5 Mean Corpu scular HGB Conc VANESSA ([facility]) mean corpuscular hemoglobin 31.9 pg 27.0-33.0 Mean Cor puscular Hemoglobin V[facility]ESSA ([facility]) platelet count, automated 171 10 150-450 Platelet C ount, Automated V[place] ([facility]) red cell distribution width 12.7 % 11.5-14.5 Red Cell Distribution Width [facility] ([facility]) mono % 9.4 % 2.0-8.0 Above high normal [place] % [place] ([facility]) neutrophils % 59.4 % 36.0-66.0 Neutrophils % [place] ( [facility]) lymph % 28.3 % 24.0-44.0 Lymph % [place] ([facility]) eos % 1.8 % 0.0-3.0 Eos % [place] ([facility]) baso % 0.5 % 0.0-1.0 Baso % [place] ([facility]) immature granulocyte % 0.6 % 0-3.0 Immature Gran ulocyte % [place] ([facility]) neutrophils # 3.7 10 1.5-8.5 Neutrophils # [place] ( [facility]) nucleated red blood cell % 0.0 % 0-0 Nucleated Red Blood Cell % [place] ([facility]) lymph # 1.8 10 1.5-5.0 Lymph # [facility] ([facility]) eos # 0.1 10 0.0-0.5 Eos # [place] ([facility]) mono # 0.6 10 0.0-0.8 [place] # [place] ([facility]) baso # 0.0 10 0.0-0.2 Baso # [facility] ([facility]) ID Date Data Source [id number] 03/09/2021 08:39:00 AM EDT [place] ([facility]) Name Value Range Interpretation Code Description Data Sandra rce(s) Supporting Document(s) blood urea nitrogen 15 mg/dL 7-18 Blood Urea Nitro gen VANESSA ([facility]) glomerular filtration rate > 60.0 >56 Glomerula r Filtration Rate VANESSA ([facility]) glucose, fasting 326 mg/dL 70-100 Above high normal Glucose, Fas ting VANESSA ([facility]) creatinine for GFR 1.04 mg/dL 0.70-1.30 Creatinine for GF R VANESSA ([facility]) sodium level 137 mEq/L 136-145 Sodium Level VANESSA ([facility]) potassium serum 4.3 mEq/L 3.5-5.1 Potassium Serum ATH NA ([facility]) chloride level 102 mEq/L 98-107 Chloride Level [place] ([facility]) carbon dioxide level 31 mEq/L 21-32 Carbon Dioxide Level [place] ([facility]) calcium level 9.3 mg/dL 8.5-10.1 Calcium Level [place] ( [facility]) AST/SGOT 11 U/L 7-37 AST/SGOT [facility] ([facility]) ALT/SGPT 29 U/L 12-78 ALT/SGPT [facility] ([facility]) anion gap 4 mEq/L 8-16 Below low normal Anion Gap [place] ( [facility]) total protein 7.9 gm/dL 6.4-8.2 Total Protein V[place]ESSA ( [facility]) albumin 4.2 gm/dL 3.2-5.2 Albumin V[facility] ([facility]) alkaline phosphatase 74 U/L 45-117 Alkaline Phosph atase VANESSA ([facility]) bilirubin,total 1.1 mg/dL 0.2-1.0 Above high normal Bilirubin,tot al [facility] ([facility]) albumin/globulin ratio Albumin/globu jose l Ratio [place] ([facility]) ID Date Data Source [id number] 03/09/2021 08:39:00 AM EDT [place] ([facility]) Name Value Range Interpretation Code Description Data Sandra rce(s) Supporting Document(s) white blood count 6.3 10 4.0-10.0 White Blood Count V[place]ES[place] ([facility]) hemoglobin 18.4 g/dL 13.5-17.5 Above high normal Hemoglobin V[facility]ESSA ([facility]) red blood count 5.76 10 4.30-6.10 Red Blood Count ATHE NA ([facility]) hematocrit 51.9 % 42.0-52.0 Hematocrit V[facility]ESSA ([facility]) mean corpuscular hemoglobin 31.9 pg 27.0-33.0 Mean Cor puscular Hemoglobin V[facility]ESSA ([facility]) mean corpuscular HGB conc 35.5 g/dL 32.0-36.5 Mean Corpu scular HGB Conc VANESSA ([facility]) mean corpuscular volume 90.1 fL 80.0-96.0 Mean Corpusc ular Volume VANESSA ([facility]) red cell distribution width 12.7 % 11.5-14.5 Red Cell Distribution Width V[place] ([facility]) platelet count, automated 171 10 150-450 Platelet C ount, Automated V[place] ([facility]) neutrophils % 59.4 % 36.0-66.0 Neutrophils % [place] ( [facility]) baso % 0.5 % 0.0-1.0 Baso % [place] ([facility]) lymph % 28.3 % 24.0-44.0 Lymph % [place] ([facility]) eos % 1.8 % 0.0-3.0 Eos % [place] ([facility]) mono % 9.4 % 2.0-8.0 Above high normal [place] % [place] ([facility]) neutrophils # 3.7 10 1.5-8.5 Neutrophils # [place] ( [facility]) nucleated red blood cell % 0.0 % 0-0 Nucleated Red Blood Cell % [facility] ([facility]) immature granulocyte % 0.6 % 0-3.0 Immature Gran ulocyte % [facility] ([facility]) lymph # 1.8 10 1.5-5.0 Lymph # [facility] ([facility]) eos # 0.1 10 0.0-0.5 Eos # [place] ([facility]) mono # 0.6 10 0.0-0.8 [place] # [place] ([facility]) baso # 0.0 10 0.0-0.2 Baso # [facility] ([facility]) ID Date Data Source [id number] 03/09/2021 08:39:00 AM EDT [place] ([facility]) Name Value Range Interpretation Code Description Data Sandra rce(s) Supporting Document(s) malb urine siemens 35.3 mg/L Malb Urine Siemen s V[place]ES[place] ([facility]) creatinine, urine 52.7 mg/dL Creatinine, Urine V[facility]SA ([facility]) jesse/creat ratio 66.9 mcg/mg 0.0-30.0 Above high normal Jesse/creat Ra susy V[facility]ES[facility] ([facility]) ID Date Data Source [id number] 03/09/2021 08:39:00 AM EDT [place] ([facility]) Name Value Range Interpretation Code Description Data Sandra rce(s) Supporting Document(s) cholesterol level 145 mg/dL <200 Cholesterol Level V[place]ESSA ([facility]) triglycerides level 176 mg/dL <150 Above high normal Triglycer ides Level VANESSA ([facility]) HDL cholesterol 47 mg/dL >40 HDL Cholesterol ATHE NA ([facility]) Cholesterol in LDL [Mass/volume] in Serum or Plasma 63 mg/dL <1 00 LDL Cholesterol VANESSA ([facility]) cholesterol risk ratio <5 Cholesterol R isk Ratio V[facility]ESSA ([facility]) non-HDL-C 98 mg/dL Non-hdl-c [facility] ([facility]) ID Date Data Source [id number] 03/09/2021 08:39:00 AM EDT [place] ([facility]) Name Value Range Interpretation Code Description Data Sandra rce(s) Supporting Document(s) glucose, fasting 326 mg/dL 70-100 Above high normal Glucose, Fas ting VANESSA ([facility]) blood urea nitrogen 15 mg/dL 7-18 Blood Urea Nitro gen V[place]ESSA ([facility]) creatinine for GFR 1.04 mg/dL 0.70-1.30 Creatinine for GF R V[facility]ESSA ([facility]) potassium serum 4.3 mEq/L 3.5-5.1 Potassium Serum ATHE NA ([facility]) glomerular filtration rate > 60.0 >56 Glomerula r Filtration Rate VANESSA ([facility]) chloride level 102 mEq/L 98-107 Chloride Level V[place]ESSA ([facility]) sodium level 137 mEq/L 136-145 Sodium Level V[facility]ESSA ([facility]) calcium level 9.3 mg/dL 8.5-10.1 Calcium Level [place] ( [facility]) carbon dioxide level 31 mEq/L 21-32 Carbon Dioxide Level [place] ([facility]) anion gap 4 mEq/L 8-16 Below low normal Anion Gap [place] ( [facility]) alkaline phosphatase 74 U/L 45-117 Alkaline Phosph atase VANESSA ([facility]) bilirubin,total 1.1 mg/dL 0.2-1.0 Above high normal Bilirubin,tot al V[place] ([facility]) AST/SGOT 11 U/L 7-37 AST/SGOT [place] ([facility]) ALT/SGPT 29 U/L 12-78 ALT/SGPT [place] ([facility]) albumin 4.2 gm/dL 3.2-5.2 Albumin [place] ([facility]) total protein 7.9 gm/dL 6.4-8.2 Total Protein [place] ( [facility]) albumin/globulin ratio Albumin/globu jose l Ratio [place] ([facility]) ID Date Data Source [id number] 03/09/2021 08:39:00 AM EDT [place] ([facility]) Name Value Range Interpretation Code Description Data Sandra rce(s) Supporting Document(s) white blood count 6.3 10 4.0-10.0 White Blood Count [place] ([facility]) red blood count 5.76 10 4.30-6.10 Red Blood Count ATHE NA ([facility]) hemoglobin 18.4 g/dL 13.5-17.5 Above high normal Hemoglobin V[facility]ESSA ([facility]) mean corpuscular HGB conc 35.5 g/dL 32.0-36.5 Mean Corpu scular HGB Conc V[facility]ESSA ([facility]) hematocrit 51.9 % 42.0-52.0 Hematocrit [facility] ([facility]) mean corpuscular hemoglobin 31.9 pg 27.0-33.0 Mean Cor puscular Hemoglobin V[facility]ESSA ([facility]) mean corpuscular volume 90.1 fL 80.0-96.0 Mean Corpusc ular Volume V[facility]ESSA ([facility]) platelet count, automated 171 10 150-450 Platelet C ount, Automated [facility] ([facility]) red cell distribution width 12.7 % 11.5-14.5 Red Cell Distribution Width [facility] ([facility]) neutrophils % 59.4 % 36.0-66.0 Neutrophils % [place] ( [facility]) mono % 9.4 % 2.0-8.0 Above high normal [place] % [place] ([facility]) lymph % 28.3 % 24.0-44.0 Lymph % [place] ([facility]) eos % 1.8 % 0.0-3.0 Eos % [place] ([facility]) immature granulocyte % 0.6 % 0-3.0 Immature Gran ulocyte % [place] ([facility]) baso % 0.5 % 0.0-1.0 Baso % [place] ([facility]) mono # 0.6 10 0.0-0.8 [place] # [facility] ([facility]) lymph # 1.8 10 1.5-5.0 Lymph # [facility] ([facility]) nucleated red blood cell % 0.0 % 0-0 Nucleated Red Blood Cell % [facility] ([facility]) neutrophils # 3.7 10 1.5-8.5 Neutrophils # [facility] ( [facility]) baso # 0.0 10 0.0-0.2 Baso # [facility] ([facility]) eos # 0.1 10 0.0-0.5 Eos # [facility] ([facility]) ID Date Data Source [id number] 03/09/2021 08:39:00 AM EDT [place] ([facility]) Name Value Range Interpretation Code Description Data Sandra rce(s) Supporting Document(s) creatinine, urine 52.7 mg/dL Creatinine, Urine [facility] ([facility]) jesse/creat ratio 66.9 mcg/mg 0.0-30.0 Above high normal Jesse/creat Ra susy [facility] ([facility]) malb urine siemens 35.3 mg/L Malb Urine Siemen s [facility] ([facility]) ID Date Data Source [id number] 03/09/2021 08:39:00 AM EDT [place] ([facility]) Name Value Range Interpretation Code Description Data Sandra rce(s) Supporting Document(s) cholesterol level 145 mg/dL <200 Cholesterol Level [facility] ([facility]) triglycerides level 176 mg/dL <150 Above high normal Triglycer ides Level [facility] ([facility]) Cholesterol in LDL [Mass/volume] in Serum or Plasma 63 mg/dL <1 00 LDL Cholesterol V[facility]SA ([facility]) non-HDL-C 98 mg/dL Non-hdl-c [facility] ([facility]) HDL cholesterol 47 mg/dL >40 HDL Cholesterol ATHE NA ([facility]) cholesterol risk ratio <5 Cholesterol R isk Ratio [facility] ([facility]) ID Date Data Source [id number] 03/09/2021 08:39:00 AM EDT [place] ([facility]) Name Value Range Interpretation Code Description Data Sandra rce(s) Supporting Document(s) creatinine for GFR 1.04 mg/dL 0.70-1.30 Creatinine for GF R V[facility] ([facility]) glomerular filtration rate > 60.0 >56 Glomerula r Filtration Rate V[place] ([facility]) glucose, fasting 326 mg/dL 70-100 Above high normal Glucose, Fas ting [facility] ([facility]) blood urea nitrogen 15 mg/dL 7-18 Blood Urea Nitro gen [facility] ([facility]) potassium serum 4.3 mEq/L 3.5-5.1 Potassium Serum ATHE NA ([facility]) sodium level 137 mEq/L 136-145 Sodium Level V[facility]ESSA ([facility]) chloride level 102 mEq/L 98-107 Chloride Level [facility] ([facility]) anion gap 4 mEq/L 8-16 Below low normal Anion Gap [facility] ( [facility]) calcium level 9.3 mg/dL 8.5-10.1 Calcium Level [facility] ( [facility]) carbon dioxide level 31 mEq/L 21-32 Carbon Dioxide Level [facility] ([facility]) bilirubin,total 1.1 mg/dL 0.2-1.0 Above high normal Bilirubin,tot al [facility] ([facility]) AST/SGOT 11 U/L 7-37 AST/SGOT [facility] ([facility]) alkaline phosphatase 74 U/L 45-117 Alkaline Phosph atase [facility] ([facility]) ALT/SGPT 29 U/L 12-78 ALT/SGPT [facility] ([facility]) total protein 7.9 gm/dL 6.4-8.2 Total Protein [facility] ( [facility]) albumin/globulin ratio Albumin/globu jose l Ratio [facility] ([facility]) albumin 4.2 gm/dL 3.2-5.2 Albumin [facility] ([facility]) ID Date Data Source [id number] 03/09/2021 08:39:00 AM EDT [place] ([facility]) Name Value Range Interpretation Code Description Data Sandra rce(s) Supporting Document(s) white blood count 6.3 10 4.0-10.0 White Blood Count [facility] ([facility]) red blood count 5.76 10 4.30-6.10 Red Blood Count ATHE ([facility]) hemoglobin 18.4 g/dL 13.5-17.5 Above high normal Hemoglobin [facility] ([facility]) hematocrit 51.9 % 42.0-52.0 Hematocrit [facility] ([facility]) mean corpuscular HGB conc 35.5 g/dL 32.0-36.5 Mean Corpu scular HGB Conc [facility] ([facility]) mean corpuscular hemoglobin 31.9 pg 27.0-33.0 Mean Cor puscular Hemoglobin [facility] ([facility]) mean corpuscular volume 90.1 fL 80.0-96.0 Mean Corpusc ular Volume [facility] ([facility]) red cell distribution width 12.7 % 11.5-14.5 Red Cell Distribution Width [facility] ([facility]) platelet count, automated 171 10 150-450 Platelet C ount, Automated [facility] ([facility]) neutrophils % 59.4 % 36.0-66.0 Neutrophils % [place] ( [facility]) mono % 9.4 % 2.0-8.0 Above high normal [place] % [facility] ([facility]) lymph % 28.3 % 24.0-44.0 Lymph % [facility] ([facility]) eos % 1.8 % 0.0-3.0 Eos % [place] ([facility]) baso % 0.5 % 0.0-1.0 Baso % [place] ([facility]) immature granulocyte % 0.6 % 0-3.0 Immature Gran ulocyte % [facility] ([facility]) lymph # 1.8 10 1.5-5.0 Lymph # [facility] ([facility]) mono # 0.6 10 0.0-0.8 [place] # [facility] ([facility]) neutrophils # 3.7 10 1.5-8.5 Neutrophils # [place] ( [facility]) nucleated red blood cell % 0.0 % 0-0 Nucleated Red Blood Cell % [facility] ([facility]) baso # 0.0 10 0.0-0.2 Baso # [facility] ([facility]) eos # 0.1 10 0.0-0.5 Eos # [facility] ([facility]) ID Date Data Source [id number] 02/15/2021 08:58:00 AM EDT [facility]) Name Value Range Interpretation Code Description Data Sandra rce(s) Supporting Document(s) sars-cov-2 negative negative Sars-cov-2 [facility]) ID Date Data Source [id number] 02/15/2021 08:58:00 AM EDT [facility]) Name Value Range Interpretation Code Description Data Sandra rce(s) Supporting Document(s) sars-cov-2 negative negative Sars-cov-2 [facility]) ID Date Data Source [id number] 02/15/2021 08:58:00 AM EDT [facility]) Name Value Range Interpretation Code Description Data Sandra rce(s) Supporting Document(s) sars-cov-2 negative negative Sars-cov-2 [facility]) ID Date Data Source [id number] 02/15/2021 08:58:00 AM EDT [facility]) Name Value Range Interpretation Code Description Data Sandra rce(s) Supporting Document(s) sars-cov-2 negative negative Sars-cov-2 [facility]) ID Date Data Source [id number] 02/15/2021 08:58:00 AM EDT [facility]) Name Value Range Interpretation Code Description Data Sandra rce(s) Supporting Document(s) sars-cov-2 negative negative Sars-cov-2 [facility]) ID Date Data Source [id number] 02/15/2021 08:58:00 AM EDT [facility]) Name Value Range Interpretation Code Description Data Sandra rce(s) Supporting Document(s) sars-cov-2 negative negative Sars-cov-2 [place] ([facility]) ID Date Data Source [id number] 02/15/2021 08:58:00 AM EDT [place] ([facility]) Name Value Range Interpretation Code Description Data Sandra rce(s) Supporting Document(s) sars-cov-2 negative negative Sars-cov-2 [place] ([facility]) ID Date Data Source [id number] 02/15/2021 08:58:00 AM EDT [place] ([facility]) Name Value Range Interpretation Code Description Data Sandra rce(s) Supporting Document(s) sars-cov-2 negative negative Sars-cov-2 [place] ([facility]) ID Date Data Source [id number] 02/15/2021 08:58:00 AM EDT [place] ([facility]) Name Value Range Interpretation Code Description Data Sandra rce(s) Supporting Document(s) sars-cov-2 negative negative Sars-cov-2 [place] ([facility]) ID Date Data Source [id number] 02/15/2021 08:58:00 AM EDT [place] ([facility]) Name Value Range Interpretation Code Description Data Sandra rce(s) Supporting Document(s) sars-cov-2 negative negative Sars-cov-2 [place] ([facility]) ID Date Data Source [id number] 02/15/2021 08:56:00 AM EDT [facility] Name Value Range Interpretation Code Description Data Sandra rce(s) Supporting Document(s) SARS coronavirus 2 RdRp gene [Presence] in Respiratory specimen by ABHINAV with probe detection Not detected [facility] This lab was ordered by [facility] and reported by [facility]. ID Date Data Source [id number] 09/28/2020 12:00:00 AM EST [place] ([facility]) Name Value Range Interpretation Code Description Data Sandra rce(s) Supporting Document(s) Hemoglobin A1c/Hemoglobin.total in Blood 11.4 % Above high normal Hba1C [place] ([facility]) ID Date Data Source [id number] 09/28/2020 12:00:00 AM EST [place] ([facility]) Name Value Range Interpretation Code Description Data Sandra rce(s) Supporting Document(s) Hemoglobin A1c/Hemoglobin.total in Blood 11.4 % Above high normal Hba1C [place] ([facility]) ID Date Data Source [id number] 09/28/2020 12:00:00 AM EST [place] ([facility]) Name Value Range Interpretation Code Description Data Sandra rce(s) Supporting Document(s) Hemoglobin A1c/Hemoglobin.total in Blood 11.4 % Above high normal Hba1C [place] ([facility]) ID Date Data Source [id number] 09/28/2020 12:00:00 AM EST [facility]) Name Value Range Interpretation Code Description Data Sandra rce(s) Supporting Document(s) Hemoglobin A1c/Hemoglobin.total in Blood 11.4 % Above high normal Hba1C [place] ([facility]) ID Date Data Source [id number] 09/28/2020 12:00:00 AM EST [place] ([facility]) Name Value Range Interpretation Code Description Data Sandra rce(s) Supporting Document(s) Hemoglobin A1c/Hemoglobin.total in Blood 11.4 % Above high normal Hba1C [place] ([facility]) ID Date Data Source [id number] 09/28/2020 12:00[facility]00 [facility] Name Value Range Interpretation Code Description Data Sandra rce(s) Supporting Document(s) Hemoglobin A1c/Hemoglobin.total in Blood 11.4 % Above high normal Hba1[facility]) ID Date Data Source [id number] 09/28/2020 12:00:00 AM EST [place] ([facility]) Name Value Range Interpretation Code Description Data Sandra rce(s) Supporting Document(s) Hemoglobin A1c/Hemoglobin.total in Blood 11.4 % Above high normal Hba1C [place] ([facility]) ID Date Data Source [id number] 09/28/2020 12:00[facility]00 [facility] Name Value Range Interpretation Code Description Data Sandra rce(s) Supporting Document(s) Hemoglobin A1c/Hemoglobin.total in Blood 11.4 % Above high normal H[facility] [place] ([facility]) ID Date Data Source [id number] 09/28/2020 12:00:00 AM EST [facility]) Name Value Range Interpretation Code Description Data Sandra rce(s) Supporting Document(s) Hemoglobin A1c/Hemoglobin.total in Blood 11.4 % Above high normal Hba1C [place] ([facility]) ID Date Data Source [id number] 09/28/2020 12:00:00 AM EST [facility]) Name Value Range Interpretation Code Description Data Sandra rce(s) Supporting Document(s) Hemoglobin A1c/Hemoglobin.total in Blood 11.4 % Above high normal Hba1C [facility]) ID Date Data Source [id number] 09/28/2020 12:00:00 AM EST [facility]) Name Value Range Interpretation Code Description Data Sandra rce(s) Supporting Document(s) Hemoglobin A1c/Hemoglobin.total in Blood 11.4 % Above high normal Hba1[facility]) Procedure Social History Code Duration Value Status Description Data Source(s ) Smoking 06/28/2021 12:00:00 AM EDT Unknown if ever smoked comp leted Unknown if ever smoked [facility] [place] Smoking 06/07/2021 12:00:00 AM EDT Unknown if ever smoked comp leted Unknown if ever smoked [facility] ([facility]) Vital Signs ID Date Data Source [id number] Name Value Range Interpretation Code Description Data Source(s) Diastolic blood pressure 87 mm[Hg] 87 mm[Hg] [facility] ([facility]) Body height 68 [in_i] 68 [in_i] [facility] ([facility]) Body mass index (BMI) [Ratio] 24.1 kg/m2 24.1 k g/m2 [facility] ([facility]) Systolic blood pressure 122 mm[Hg] 122 mm[Hg] A THENA ([facility]) Body weight 2536 [oz_av] 2536 [oz_av] [facility] ([facility]) Body mass index (BMI) [Ratio] 24.3 kg/m2 24.3 k g/m2 [facility] ([facility]) Diastolic blood pressure 87 mm[Hg] 87 mm[Hg] [facility] ([facility]) Heart rate 100 /min 100 /min [facility] ([facility]) Oxygen saturation in Arterial blood by Pulse oximetry 96 % 96 % [facility] ([facility]) Systolic blood pressure 117 mm[Hg] 117 mm[Hg] M EDENT ([facility]) Body weight 160.00 [lb_av] 160.00 [lb_av] MEDEN T ([facility]) Body weight 72.576 kg 72.576 kg [facility] ([facility]) Body height 68 [in_i] 68 [in_i] [facility] ([facility]) 5'8" Body surface area Derived from formula 1.86 m2 1.86 m2 [facility] ([facility]) Diastolic blood pressure 87 mm[Hg] 87 mm[Hg] VANESSA ([facility]) Body height 68 [in_i] 68 [in_i] [facility] ([facility]) Body mass index (BMI) [Ratio] 24.3 kg/m2 24.3 k g/m2 [facility] ([facility]) Systolic blood pressure 127 mm[Hg] 127 mm[Hg] A THENA ([facility]) Body weight 2560 [oz_av] 2560 [oz_av] [facility] ([facility]) Body height 68 [in_i] 68 [in_i] [facility] ([facility]) Diastolic blood pressure 87 mm[Hg] 87 mm[Hg] [facility] ([facility]) Body mass index (BMI) [Ratio] 24.3 kg/m2 24.3 k g/m2 [facility] ([facility]) Systolic blood pressure 127 mm[Hg] 127 [facility] Body weight 2560 [oz_av] 2560 [oz_av] [facility]SA ([facility]) Diastolic blood pressure 87 mm[Hg] 87 mm[Hg] [facility] ([facility]) Body height 68 [in_i] 68 [in_i] [facility] ([facility]) Body mass index (BMI) [Ratio] 24.3 kg/m2 24.3 k g/m2 [facility] ([facility]) Systolic blood pressure 127 mm[Hg] 127 mm[Hg] A THENA ([facility]) Body weight 2560 [oz_av] 2560 [oz_av] [facility] ([facility]) Body height 68 [in_i] 68 [in_i] [facility] ([facility]) Body height 68 [in_i] 68 [in_i] [facility] ([facility]) Body height 68 [in_i] 68 [in_i] [facility] ([facility]) Body height 68 [in_i] 68 [in_i] [facility] ([facility]) Diastolic blood pressure 81 mm[Hg] 81 mm[Hg] [facility] ([facility]) Body height 68 [in_i] 68 [in_i] [facility] ([facility]) Systolic blood pressure 145 mm[Hg] 145 mm[Hg] A THENA ([facility]) Body height 68 [in_i] 68 [in_i] [facility] ([facility]) Systolic blood pressure 145 mm[Hg] 145 mm[Hg] A THENA ([facility]) Diastolic blood pressure 81 mm[Hg] 81 mm[Hg] [facility] ([facility]) Diastolic blood pressure 81 mm[Hg] 81 mm[Hg] [facility] ([facility]) Body height 68 [in_i] 68 [in_i] [facility] ([facility]) Systolic blood pressure 145 mm[Hg] 145 mm[Hg] A THENA ([facility]) Diastolic blood pressure 81 mm[Hg] 81 mm[Hg] [facility] ([facility]) Body height 68 [in_i] 68 [in_i] [facility] ([facility]) Systolic blood pressure 145 mm[Hg] 145 mm[Hg] A THENA ([facility]) Diastolic blood pressure 81 mm[Hg] 81 mm[Hg] [facility] ([facility]) Body height 68 [in_i] 68 [in_i] [facility] ([facility]) Systolic blood pressure 145 mm[Hg] 145 mm[Hg] A THENA ([facility]) Body weight Measured 167.00 lbs Normal (applies to n on-numeric results) 167.00 lbs [facility] ([facility]) Body height 68 [in_i] 68 [in_i] V[facility]ESSA ([facility]) Body height 68 [in_i] 68 [in_i] [facility] ([facility]) Body height 68 [in_i] 68 [in_i] [facility] ([facility]) Body height 68 [in_i] 68 [in_i] [facility] ([facility]) Body height 68 [in_i] 68 [in_i] [facility] ([facility]) Body height 68 [in_i] 68 [in_i] [facility] ([facility]) Body temperature 98.5 [degF] 98.5 [degF] MEDENT ([facility]) Body height 68 [in_i] 68 [in_i] V[facility]ESSA ([facility]) Systolic blood pressure 120 mm[Hg] 120 mm[Hg] A THENA ([facility]) Body weight 2720 [oz_av] 2720 [oz_av] V[facility]ESSA ([facility]) Body mass index (BMI) [Ratio] 25.8 kg/m2 25.8 k g/m2 [facility] ([facility]) Diastolic blood pressure 79 mm[Hg] 79 mm[Hg] V[facility] ([facility]) Diastolic blood pressure 79 mm[Hg] 79 mm[Hg] [facility] ([facility]) Body weight 2720 [oz_av] 2720 [oz_av] [facility] ([facility]) Body height 68 [in_i] 68 [in_i] [facility] ([facility]) Body mass index (BMI) [Ratio] 25.8 kg/m2 25.8 k g/m2 [facility] ([facility]) Systolic blood pressure 120 mm[Hg] 120 mm[facility]Hg] [facility] Diastolic blood pressure 79 mm[Hg] 79 mm[Hg] [facility] ([facility]) Body height 68 [in_i] 68 [in_i] [facility] ([facility]) Body mass index (BMI) [Ratio] 25.8 kg/m2 25.8 k g/m2 [facility] ([facility]) Systolic blood pressure 120 mm[Hg] 120 mm[Hg] A THENA ([facility]) Body weight 2720 [oz_av] 2720 [oz_av] [facility] ([facility]) Diastolic blood pressure 79 mm[Hg] 79 mm[Hg] [facility] ([facility]) Body height 68 [in_i] 68 [in_i] [facility] ([facility]) Body mass index (BMI) [Ratio] 25.8 kg/m2 25.8 k g/m2 [facility] ([facility]) Systolic blood pressure 120 mm[Hg] 120 mm[Hg] A THENA ([facility]) Body weight 2720 [oz_av] 2720 [oz_av] [facility] ([facility]) Diastolic blood pressure 79 mm[Hg] 79 mm[Hg] [facility] ([facility]) Body height 68 [in_i] 68 [in_i] [facility] ([facility]) Body mass index (BMI) [Ratio] 25.8 kg/m2 25.8 k g/m2 [facility] ([facility]) Systolic blood pressure 120 mm[Hg] 120 mm[Hg] A THENA ([facility]) Body weight 2720 [oz_av] 2720 [oz_av] [facility] ([facility]) Diastolic blood pressure 79 mm[Hg] 79 mm[Hg] [facility] ([facility]) Body height 68 [in_i] 68 [in_i] [facility] ([facility]) Body mass index (BMI) [Ratio] 25.8 kg/m2 25.8 k g/m2 [facility] ([facility]) Systolic blood pressure 120 mm[Hg] 120 mm[Hg] A THENA ([facility]) Body weight 2720 [oz_av] 2720 [oz_av] [facility] ([facility]) Diastolic blood pressure 79 mm[Hg] 79 mm[Hg] [facility] ([facility]) Body height 68 [in_i] 68 [in_i] [facility] ([facility]) Body mass index (BMI) [Ratio] 25.8 kg/m2 25.8 k g/m2 [facility] ([facility]) Systolic blood pressure 120 mm[Hg] 120 mm[Hg] A THENA ([facility]) Body weight 2720 [oz_av] 2720 [oz_av] V[facility]ESSA ([facility]) Body weight 160.00 [lb_av] 160.00 [lb_av] MEDEN T ([facility] Body height 68 [in_i] 68 [in_i] MEDENT ([facility] 5'8" Heart rate 71 /min 71 /min [facility] ([facility] Body mass index (BMI) [Ratio] 24.3 kg/m2 24.3 k g/m2 [facility] ([facility] Systolic blood pressure 124 mm[Hg] 124 mm[Hg] M EDENT ([facility] Diastolic blood pressure 76 mm[Hg] 76 mm[Hg] MEDERIKA ([facility] Body temperature 97.3 [degF] 97.3 [degF] [facility] ([facility]) Body mass index (BMI) [Ratio] 25.8 kg/m2 25.8 k g/m2 V[facility]ESSA ([facility]) Systolic blood pressure 132 mm[Hg] 132 mm[Hg] [facility] Body weight 2720 [oz_av] 2720 [oz_av] V[facility]ESSA ([facility]) Diastolic blood pressure 87 mm[Hg] 87 mm[Hg] V[facility]ESSA ([facility]) Body height 68 [in_i] 68 [in_i] [facility] ([facility]) Diastolic blood pressure 87 mm[Hg] 87 mm[Hg] [facility] ([facility]) Body height 68 [in_i] 68 [in_i] [facility]SA ([facility]) Body mass index (BMI) [Ratio] 25.8 kg/m2 25.8 k g/m2 [facility] ([facility]) Systolic blood pressure 132 mm[Hg] 132 mm[Hg] A THENA ([facility]) Body weight 2720 [oz_av] 2720 [oz_av] [facility]ESSA ([facility]) Diastolic blood pressure 87 mm[Hg] 87 mm[Hg] [facility] ([facility]) Body height 68 [in_i] 68 [in_i] [facility] ([facility]) Body mass index (BMI) [Ratio] 25.8 kg/m2 25.8 k g/m2 [facility] ([facility]) Systolic blood pressure 132 mm[Hg] 132 mm[facility]Hg] [facility] Body weight 2720 [oz_av] 2720 [oz_av] [facility]ESSA ([facility]) Diastolic blood pressure 87 mm[Hg] 87 mm[Hg] [facility]SA ([facility]) Body height 68 [in_i] 68 [in_i] [facility] ([facility]) Body mass index (BMI) [Ratio] 25.8 kg/m2 25.8 k g/m2 [facility] ([facility]) Systolic blood pressure 132 mm[Hg] 132 mm[Hg] [facility] Body weight 2720 [oz_av] 2720 [oz_av] [facility] ([facility]) Diastolic blood pressure 87 mm[Hg] 87 mm[Hg] [facility] ([facility]) Body height 68 [in_i] 68 [in_i] [facility] ([facility]) Body mass index (BMI) [Ratio] 25.8 kg/m2 25.8 k g/m2 [facility] ([facility]) Systolic blood pressure 132 mm[Hg] 132 mm[Hg] [facility] Body weight 2720 [oz_av] 2720 [oz_av] [facility] ([facility]) Diastolic blood pressure 87 mm[Hg] 87 mm[Hg] [facility] ([facility]) Body height 68 [in_i] 68 [in_i] [facility] ([facility]) Body mass index (BMI) [Ratio] 25.8 kg/m2 25.8 k g/m2 [facility] ([facility]) Systolic blood pressure 132 mm[Hg] 132 mm[Hg] [facility] Body weight 2720 [oz_av] 2720 [oz_av] [facility] ([facility]) Systolic blood pressure 132 mm[Hg] 132 mm[Hg] [facility] Body weight 2720 [oz_av] 2720 [oz_av] [facility] ([facility]) Diastolic blood pressure 87 mm[Hg] 87 mm[Hg] [facility] ([facility]) Body height 68 [in_i] 68 [in_i] [facility] ([facility]) Body mass index (BMI) [Ratio] 25.8 kg/m2 25.8 k g/m2 [facility] ([facility]) Diastolic blood pressure 87 mm[Hg] 87 mm[Hg] [facility] ([facility]) Body height 68 [in_i] 68 [in_i] [facility] ([facility]) Body mass index (BMI) [Ratio] 25.8 kg/m2 25.8 k g/m2 [facility] ([facility]) Systolic blood pressure 132 mm[Hg] 132 mm[Hg] A THENA ([facility]) Body weight 2720 [oz_av] 2720 [oz_av] [facility]SA ([facility]) Body height 68 [in_i] 68 [in_i] [facility] ([facility]) Body height 68 [in_i] 68 [in_i] [facility] ([facility]) Body height 68 [in_i] 68 [in_i] [facility] ([facility]) Body height 68 [in_i] 68 [in_i] [facility] ([facility]) Body height 68 [in_i] 68 [in_i] [facility] ([facility]) Body height 68 [in_i] 68 [in_i] [facility] ([facility]) Body height 68 [in_i] 68 [in_i] [facility] ([facility]) Body height 68 [in_i] 68 [in_i] [facility] ([facility]) Body height 68 [in_i] 68 [in_i] [facility] ([facility]) Diastolic blood pressure 72 mm[Hg] 72 mm[Hg] [facility] ([facility]) Body height 68 [in_i] 68 [in_i] [facility] ([facility]) Body mass index (BMI) [Ratio] 26.2 kg/m2 26.2 k g/m2 [facility] ([facility]) Body weight 2754 [oz_av] 2754 [oz_av] [facility]SA ([facility]) Systolic blood pressure 124 mm[Hg] 124 mm[Hg] [facility] Diastolic blood pressure 72 mm[Hg] 72 mm[Hg] [facility]SA ([facility]) Body height 68 [in_i] 68 [in_i] [facility] ([facility]) Body mass index (BMI) [Ratio] 26.2 kg/m2 26.2 k g/m2 [facility] ([facility]) Systolic blood pressure 124 mm[Hg] 124 mm[Hg] A THENA ([facility]) Body weight 2754 [oz_av] 2754 [oz_av] [facility]ESSA ([facility]) Diastolic blood pressure 72 mm[Hg] 72 mm[Hg] [facility] ([facility]) Body height 68 [in_i] 68 [in_i] [facility] ([facility]) Body mass index (BMI) [Ratio] 26.2 kg/m2 26.2 k g/m2 [facility] ([facility]) Systolic blood pressure 124 mm[Hg] 124 mm[Hg] [facility] Body weight 2754 [oz_av] 2754 [oz_av] [facility] ([facility]) Diastolic blood pressure 72 mm[Hg] 72 mm[Hg] [facility] ([facility]) Diastolic blood pressure 72 mm[Hg] 72 mm[Hg] [facility] ([facility]) Body height 68 [in_i] 68 [in_i] [facility] ([facility]) Body mass index (BMI) [Ratio] 26.2 kg/m2 26.2 k g/m2 [facility] ([facility]) Systolic blood pressure 124 mm[Hg] 124 mm[Hg] [facility] Body weight 2754 [oz_av] 2754 [oz_av] [facility] ([facility]) Body height 68 [in_i] 68 [in_i] [facility] ([facility]) Body mass index (BMI) [Ratio] 26.2 kg/m2 26.2 k g/m2 [facility] ([facility]) Systolic blood pressure 124 mm[Hg] 124 mm[Hg] A THENA ([facility]) Body weight 2754 [oz_av] 2754 [oz_av] [facility] ([facility]) Body weight 2754 [oz_av] 2754 [oz_av] [facility] ([facility]) Diastolic blood pressure 72 mm[Hg] 72 mm[Hg] [facility] ([facility]) Body height 68 [in_i] 68 [in_i] [facility] ([facility]) Body mass index (BMI) [Ratio] 26.2 kg/m2 26.2 k g/m2 [facility] ([facility]) Systolic blood pressure 124 mm[Hg] 124 mm[Hg] [facility] Diastolic blood pressure 72 mm[Hg] 72 mm[Hg] [facility] ([facility]) Body height 68 [in_i] 68 [in_i] [facility] ([facility]) Body mass index (BMI) [Ratio] 26.2 kg/m2 26.2 k g/m2 [facility] ([facility]) Systolic blood pressure 124 mm[Hg] 124 mm[Hg] A THENA ([facility]) Body weight 2754 [oz_av] 2754 [oz_av] [facility] ([facility]) Diastolic blood pressure 72 mm[Hg] 72 mm[Hg] [facility] ([facility]) Body height 68 [in_i] 68 [in_i] [facility] ([facility]) Body mass index (BMI) [Ratio] 26.2 kg/m2 26.2 k g/m2 [facility] ([facility]) Systolic blood pressure 124 mm[Hg] 124 mm[Hg] A THENA ([facility]) Body weight 2754 [oz_av] 2754 [oz_av] [facility] ([facility]) Diastolic blood pressure 72 mm[Hg] 72 mm[Hg] [facility] ([facility]) Body height 68 [in_i] 68 [in_i] [facility] ([facility]) Body mass index (BMI) [Ratio] 26.2 kg/m2 26.2 k g/m2 [facility] ([facility]) Systolic blood pressure 124 mm[Hg] 124 mm[Hg] A THENA ([facility]) Body weight 2754 [oz_av] 2754 [oz_av] [facility] ([facility]) Diastolic blood pressure 72 mm[Hg] 72 mm[Hg] [facility] ([facility]) Body height 68 [in_i] 68 [in_i] [facility] ([facility]) Body mass index (BMI) [Ratio] 26.2 kg/m2 26.2 k g/m2 [facility] ([facility]) Systolic blood pressure 124 mm[Hg] 124 mm[Hg] A THENA ([facility]) Body weight 2754 [oz_av] 2754 [oz_av] [facility] ([facility]) Diastolic blood pressure 72 mm[Hg] 72 mm[Hg] [facility] ([facility]) Body height 68 [in_i] 68 [in_i] [facility] ([facility]) Body mass index (BMI) [Ratio] 26.2 kg/m2 26.2 k g/m2 [facility] ([facility]) Systolic blood pressure 124 mm[Hg] 124 mm[Hg] [facility] ([facility]) Body weight 2754 [oz_av] 2754 [oz_av] [facility]SA ([facility]) Systolic blood pressure 130 mm[Hg] 130 mm[Hg] [facility] Body weight 2710 [oz_av] 2710 [oz_av] [facility]SA ([facility]) Body mass index (BMI) [Ratio] 25.8 kg/m2 25.8 k g/m2 [facility] ([facility]) Diastolic blood pressure 82 mm[Hg] 82 mm[Hg] [facility] ([facility]) Body height 68 [in_i] 68 [in_i] [facility] ([facility]) Diastolic blood pressure 82 mm[Hg] 82 mm[Hg] [facility] ([facility]) Diastolic blood pressure 82 mm[Hg] 82 mm[Hg] [facility] ([facility]) Body height 68 [in_i] 68 [in_i] [facility] ([facility]) Body mass index (BMI) [Ratio] 25.8 kg/m2 25.8 k g/m2 [facility] ([facility]) Systolic blood pressure 130 mm[Hg] 130 mm[Hg] [facility] Body weight 2710 [oz_av] 2710 [oz_av] [facility]SA ([facility]) Body height 68 [in_i] 68 [in_i] [facility] ([facility]) Body mass index (BMI) [Ratio] 25.8 kg/m2 25.8 k g/m2 [facility] ([facility]) Systolic blood pressure 130 mm[Hg] 130 mm[Hg] [facility] Body weight 2710 [oz_av] 2710 [oz_av] [facility]ESSA ([facility]) Diastolic blood pressure 82 mm[Hg] 82 mm[Hg] [facility]SA ([facility]) Body height 68 [in_i] 68 [in_i] [facility] ([facility]) Body mass index (BMI) [Ratio] 25.8 kg/m2 25.8 k g/m2 [facility] ([facility]) Systolic blood pressure 130 mm[Hg] 130 mm[Hg] [facility] Body weight 2710 [oz_av] 2710 [oz_av] V[facility]ESSA ([facility]) Diastolic blood pressure 82 mm[Hg] 82 mm[Hg] [facility]SA ([facility]) Diastolic blood pressure 82 mm[Hg] 82 mm[Hg] [facility]SA ([facility]) Body height 68 [in_i] 68 [in_i] [facility] ([facility]) Body mass index (BMI) [Ratio] 25.8 kg/m2 25.8 k g/m2 [facility] ([facility]) Systolic blood pressure 130 mm[Hg] 130 mm[Hg] [facility] Body weight 2710 [oz_av] 2710 [oz_av] V[facility]ESSA ([facility]) Body height 68 [in_i] 68 [in_i] [facility]SA ([facility]) Body mass index (BMI) [Ratio] 25.8 kg/m2 25.8 k g/m2 [facility] ([facility]) Systolic blood pressure 130 mm[Hg] 130 mm[Hg] A THENA ([facility]) Body weight 2710 [oz_av] 2710 [oz_av] VANESSA ([facility]) Diastolic blood pressure 82 mm[Hg] 82 mm[Hg] [facility]SA ([facility]) Body height 68 [in_i] 68 [in_i] [facility] ([facility]) Body mass index (BMI) [Ratio] 25.8 kg/m2 25.8 k g/m2 [facility] ([facility]) Systolic blood pressure 130 mm[Hg] 130 mm[Hg] [facility] Body weight 2710 [oz_av] 2710 [oz_av] V[facility]ESSA ([facility]) Diastolic blood pressure 82 mm[Hg] 82 mm[Hg] [facility]SA ([facility]) Body height 68 [in_i] 68 [in_i] [facility] ([facility]) Body mass index (BMI) [Ratio] 25.8 kg/m2 25.8 k g/m2 [facility] ([facility]) Systolic blood pressure 130 mm[Hg] 130 mm[Hg] A THENA ([facility]) Body weight 2710 [oz_av] 2710 [oz_av] V[facility]ESSA ([facility]) Diastolic blood pressure 82 mm[Hg] 82 mm[Hg] [facility] ([facility]) Body height 68 [in_i] 68 [in_i] [facility] ([facility]) Body mass index (BMI) [Ratio] 25.8 kg/m2 25.8 k g/m2 [facility] ([facility]) Systolic blood pressure 130 mm[Hg] 130 mm[Hg] A THENA ([facility]) Body weight 2710 [oz_av] 2710 [oz_av] [facility]SA ([facility]) Diastolic blood pressure 82 mm[Hg] 82 mm[Hg] [facility] ([facility]) Body height 68 [in_i] 68 [in_i] [facility] ([facility]) Body mass index (BMI) [Ratio] 25.8 kg/m2 25.8 k g/m2 [facility] ([facility]) Systolic blood pressure 130 mm[Hg] 130 mm[Hg] A THENA ([facility]) Body weight 2710 [oz_av] 2710 [oz_av] [facility]SA ([facility]) Diastolic blood pressure 82 mm[Hg] 82 mm[Hg] [facility] ([facility]) Body height 68 [in_i] 68 [in_i] [facility] ([facility]) Body mass index (BMI) [Ratio] 25.8 kg/m2 25.8 k g/m2 [facility] ([facility]) Systolic blood pressure 130 mm[Hg] 130 mm[Hg] A THENA ([facility]) Body weight 2710 [oz_av] 2710 [oz_av] VANESSA ([facility]) Diastolic blood pressure 82 mm[Hg] 82 mm[Hg] [facility]SA ([facility]) Body height 68 [in_i] 68 [in_i] [facility]SA ([facility]) Body mass index (BMI) [Ratio] 25.8 kg/m2 25.8 k g/m2 [facility] ([facility]) Systolic blood pressure 130 mm[Hg] 130 mm[Hg] Reema THENA ([facility]) Body weight 2710 [oz_av] 2710 [oz_av] VANESSA ([facility]) Patient Treatment Plan of Care Planned Activity Planned Date Details Description Data Source (s) 1.5 ML Insulin Glargine 300 UNT/ML Pen Injector [Touje o] 09/20/2021 12:00:00 AM EDT VANESSA ([facility]) Cyclobenzaprine hydrochloride 5 MG Oral Tablet VANESSA ([facility]) Cephalexin 500 MG Oral Capsule [facility]) [facility] at[facility] 10 MG Oral Tablet [facility] ([facility]) Acyclovir 200 MG Oral Capsule [facility]) Naproxen 500 MG Oral Tablet [facility]) sitagliptin 50 MG Oral Tablet [Januvia] [facility]) sitagliptin 25 MG [facility] Insulin Lispro 100 UNT/ML Pen Injector [facility] gab[facility] Cyclobenzaprine hydrochloride 5 MG Oral Tablet [facility] ([facility]) Cephalexin 500 [facility] 0.5 ML dulaglutide 1.5 MG/ML [facility]-Injector [facility]] [facility] 1.5 ML Insulin Glargine 300 UNT/ML Pen In[facility]or [facility] Suprep Bowel Prep Kit 17.5 gram-3.13 gram-1.6 gram ora l solution MX AND DRK UTD VANESSA ([facility]) Naproxen 500 MG Oral Tablet VANESSA ([facility]) sitagliptin 50 MG Oral Tablet [Januvia] VANESSA ([facility]) sitagliptin 25 MG Oral Tablet [Januvia] V[facility]ESSA ([facility]) 3 ML Insulin Lispro 100 UNT/ML Pen Injector [Humalog] VANESSA ([facility]) gabapentin 300 MG Oral Capsule VANESSA ([facility]) Cyclobenzaprine hydrochloride 5 MG Oral Tablet VANESSA ([facility]) Cephalexin 500 MG Oral Capsule VANESSA ([facility]) atorvastatin 20 MG Oral Tablet VANESSA ([facility]) atorvastatin 10 MG Oral Tablet VANESSA ([facility]) Acyclovir 200 MG Oral Capsule VANESSA ([facility]) 0.5 ML dulaglutide 1.5 MG/ML Auto-Injector [Trulicity] VANESSA ([facility]) 1.5 ML Insulin Glargine 300 UNT/ML Pen Injector [Toujeo] VANESSA ([facility]) Suprep Bowel Prep Kit 17.5 gram-3.13 gram-1.6 gram ora l solution MX AND DRK UTD VANESSA ([facility]) Naproxen 500 MG Oral Tablet VANESSA ([facility]) sitagliptin 25 MG Oral Tablet [Januvia] VANESSA ([facility]) 3 ML Insulin Lispro 100 UNT/ML Pen Injector [Humalog] VANESSA ([facility]) gabapentin 300 MG Oral Capsule VANESSA ([facility]) Cyclobenzaprine hydrochloride 5 MG Oral Tablet VANESSA ([facility]) atorvastatin 20 MG Oral Tablet VANESSA ([facility]) 0.5 ML dulaglutide 1.5 MG/ML Auto-Injector [Trulicity] VANESSA ([facility]) 1.5 ML Insulin Glargine 300 UNT/ML Pen Injector [Toujeo] VANESSA ([facility]) Suprep Bowel Prep Kit 17.5 gram-3.13 gram-1.6 gram ora l solution MX AND DRK UTD VANESSA ([facility]) Naproxen 500 MG Oral Tablet VANESSA ([facility]) sitagliptin 25 MG Oral Tablet [Januvia] VANESSA ([facility]) 3 ML Insulin Lispro 100 UNT/ML Pen Injector [Humalog] VANESSA ([facility]) gabapentin 300 MG Oral Capsule VANESSA ([facility]) Cyclobenzaprine hydrochloride 5 MG Oral Tablet VANESSA ([facility]) atorvastatin 20 MG Oral Tablet VANESSA ([facility]) 0.5 ML dulaglutide 1.5 MG/ML Auto-Injector [Trulicity] VANESSA ([facility]) 1.5 ML Insulin Glargine 300 UNT/ML Pen Injector [Toujeo] VANESSA ([facility]) Suprep Bowel Prep Kit 17.5 gram-3.13 gram-1.6 gram ora l solution MX AND DRK UTD VANESSA ([facility]) Naproxen 500 MG Oral Tablet VANESSA ([facility]) sitagliptin 25 MG Oral Tablet [Januvia] VANESSA ([facility]) 3 ML Insulin Lispro 100 UNT/ML Pen Injector [Humalog] VANESSA ([facility]) gabapentin 300 MG Oral Capsule VANESSA ([facility]) Cyclobenzaprine hydrochloride 5 MG Oral Tablet VANESSA ([facility]) atorvastatin 20 MG Oral Tablet VANESSA ([facility]) 0.5 ML dulaglutide 1.5 MG/ML Auto-Injector [Trulicity] VANESSA ([facility]) 1.5 ML Insulin Glargine 300 UNT/ML Pen Injector [Toujeo] VANESSA ([facility]) Suprep Bowel Prep Kit 17.5 gram-3.13 gram-1.6 gram ora l solution MX AND DRK UTD VANESSA ([facility]) Naproxen 500 MG Oral Tablet VANESSA ([facility]) sitagliptin 25 MG Oral Tablet [Januvia] VANESSA ([facility]) 3 ML Insulin Lispro 100 UNT/ML Pen Injector [Humalog] VANESSA ([facility]) gabapentin 300 MG Oral Capsule VANESSA ([facility]) Cyclobenzaprine hydrochloride 5 MG Oral Tablet VANESSA ([facility]) atorvastatin 20 MG Oral Tablet VANESSA ([facility]) 0.5 ML dulaglutide 1.5 MG/ML Auto-Injector [Trulicity] VANESSA ([facility]) 1.5 ML Insulin Glargine 300 UNT/ML Pen Injector [Toujeo] VANESSA ([facility]) Suprep Bowel Prep Kit 17.5 gram-3.13 gram-1.6 gram ora l solution MX AND DRK UTD VANESSA ([facility]) Naproxen 500 MG Oral Tablet VANESSA ([facility]) sitagliptin 25 MG Oral Tablet [Januvia] VANESSA ([facility]) 3 ML Insulin Lispro 100 UNT/ML Pen Injector [Humalog] VANESSA ([facility]) gabapentin 300 MG Oral Capsule VANESSA ([facility]) Cyclobenzaprine hydrochloride 5 MG Oral Tablet VANESSA ([facility]) atorvastatin 20 MG Oral Tablet VANESSA ([facility]) 0.5 ML dulaglutide 1.5 MG/ML Auto-Injector [Trulicity] VANESSA ([facility]) 1.5 ML Insulin Glargine 300 UNT/ML Pen Injector [Toujeo] VANESSA ([facility]) Suprep Bowel Prep Kit 17.5 gram-3.13 gram-1.6 gram ora l solution MX AND DRK UTD [place] ([facility]) OneTouch Verio test strips U UTD TO TEST TID VANESSA ([facility]) Naproxen 500 MG Oral Tablet VANESSA ([facility]) sitagliptin 25 MG Oral Tablet [Januvia] VANESSA ([facility]) 3 ML Insulin Lispro 100 UNT/ML Pen Injector [Humalog] VANESSA ([facility]) gabapentin 300 MG Oral Capsule VANESSA ([facility]) Cyclobenzaprine hydrochloride 5 MG Oral Tablet VANESSA ([facility]) atorvastatin 20 MG Oral Tablet VANESSA ([facility]) 0.5 ML dulaglutide 1.5 MG/ML Auto-Injector [Trulicity] VANESSA ([facility]) 1.5 ML Insulin Glargine 300 UNT/ML Pen Injector [Toujeo] VANESSA ([facility]) Suprep Bowel Prep Kit 17.5 gram-3.13 gram-1.6 gram ora l solution MX AND DRK UTD VANESSA ([facility]) OneTouch Verio test strips U UTD TO TEST TID VANESSA ([facility]) Naproxen 500 MG Oral Tablet VANESSA ([facility]) sitagliptin 25 MG Oral Tablet [Januvia] VANESSA ([facility]) 3 ML Insulin Lispro 100 UNT/ML Pen Injector [Humalog] VANESSA ([facility]) gabapentin 300 MG Oral Capsule VANESSA ([facility]) Cyclobenzaprine hydrochloride 5 MG Oral Tablet VANESSA ([facility]) atorvastatin 20 MG Oral Tablet VANESSA ([facility]) 0.5 ML dulaglutide 1.5 MG/ML Auto-Injector [Trulicity] VANESSA ([facility]) 1.5 ML Insulin Glargine 300 UNT/ML Pen Injector [Toujeo] VANESSA ([facility]) Suprep Bowel Prep Kit 17.5 gram-3.13 gram-1.6 gram ora l solution MX AND DRK UTD VANESSA ([facility]) OneTouch Verio test strips U UTD TO TEST TID VANESSA ([facility]) Naproxen 500 MG Oral Tablet VANESSA ([facility]) sitagliptin 25 MG Oral Tablet [Januvia] VANESSA ([facility]) 3 ML Insulin Lispro 100 UNT/ML Pen Injector [Humalog] VANESSA ([facility]) gabapentin 300 MG Oral Capsule VANESSA ([facility]) Cyclobenzaprine hydrochloride 5 MG Oral Tablet V[facility]ESSA ([facility]) atorvastatin 20 MG Oral Tablet V[facility]SA ([facility]) 0.5 ML dulaglutide 1.5 MG/ML Auto-Injector [Trulicity] VANESSA ([facility]) 1.5 ML Insulin Glargine 300 UNT/ML Pen Injector [Toujeo] VANESSA ([facility]) Suprep Bowel Prep Kit 17.5 gram-3.13 gram-1.6 gram ora l solution MX AND DRK UTD VANESSA ([facility]) OneTouch Verio test strips U UTD TO TEST TID VANESSA ([facility]) Naproxen 500 MG Oral Tablet VANESSA ([facility]) 3 ML Insulin Lispro 100 UNT/ML Pen Injector [Humalog] VANESSA ([facility]) Cyclobenzaprine hydrochloride 5 MG Oral Tablet VANESSA ([facility]) atorvastatin 20 MG Oral Tablet VANESSA ([facility]) 3 ML liraglutide 6 MG/ML [facility] dulaglutide 1.5 MG/ML Auto-Injector [Trulicity] [place] ([facility]) Suprep Bowel Prep Kit 17.5 gram-3.13 gram-1.6 gram ora l solution MX AND DRK UTD VANESSA ([facility]) Naproxen 500 MG Oral Tablet VANESSA ([facility]) sitagliptin 50 MG Oral Tablet [Januvia] [place] ([facility]) sitagliptin 25 MG [facility] Insulin Lispro 100 UNT/ML Pen Injector [Humalog] [facility]) gabapentin 300 MG Oral Capsule VANESSA ([facility]) 0.5 ML dulaglutide 1.5 MG/ML [facility] 1.5 ML Insulin Glargine 300 UNT/ML Pen Injector [Toujeo] VANESSA ([facility]) Suprep Bowel Prep Kit 17.5 gram-3.13 gram-1.6 gram ora l solution MX AND DRK UTD VANESSA ([facility])
[2021-09-20 17:59] LABS: BLOOD UREA NITROGEN 23 MG/DL (7-18); CALCIUM LEVEL 9.5 MG/DL (8.5-10.1); CARBON DIOXIDE LEVEL 27 MEQ/L (21-32); CHLORIDE LEVEL 102 MEQ/L (98-107); CREATININE FOR GFR 1.27 MG/DL (0.70-1.30); GLOMERULAR FILTRATION RATE > 60.0 (>56); GLUCOSE, FASTING 371 MG/DL (70-100); POTASSIUM SERUM 4.1 MEQ/L (3.5-5.1); SODIUM LEVEL 135 MEQ/L (136-145)
[2021-09-20 20:33] VITALS: BP 130/86
== END 2021-09-20 20:47 | disposition home or self-care (01) ==
LOC: M ED 13:03
DX: Z46.6 Encounter for fitting and adjustment of urinary device (principal); N40.0 Benign prostatic hyperplasia without lower urinary tract symptoms; E11.9 Type 2 diabetes mellitus without complications; Z79.899 Other long term (current) drug therapy; Z79.82 Long term (current) use of aspirin

== ENCOUNTER 2021-10-13 10:58 | Inpatient (IN) | payer MEDICARE, MEDICAID ==
[~2021-10-13] VITALS: Ht 172.7 cm; Wt 73.8 kg
[~2021-10-13 10:58] MED LIST changes: -LATU80TA; -LATU80TA PO; +LATU80TA2; +LATU80TA2 PO; -LISI-898 PO; +LISI5TAB11 PO
[2021-10-13] MEDS ORDERED: NS 1,000 ML IV SCH (11:05)
[2021-10-13 11:37] LABS: BASO % 0.3 % (0.0-1.0); EOS # 0.1 10^3/uL (0.0-0.5); HEMATOCRIT 39.4 % (42.0-52.0); HEMOGLOBIN 13.6 g/dl (13.5-17.5); LYMPH # 1.3 10^3/uL (1.5-5.0); LYMPH % 11.9 % (24.0-44.0); MEAN CORPUSCULAR HEMOGLOBIN 31.4 pg (27.0-33.0); MEAN CORPUSCULAR HGB CONC 34.5 g/dl (32.0-36.5); MONO # 0.8 10^3/uL (0.0-0.8); MONO % 7.3 % (2.0-8.0); NEUTROPHILS # 8.7 10^3/uL (1.5-8.5); NEUTROPHILS % 79.1 % (36.0-66.0); PLATELET COUNT, AUTOMATED 180 10^3/uL (150-450); RED BLOOD COUNT 4.33 10^6/uL (4.30-6.10)
[2021-10-13] MEDS ORDERED: METOCLOPRAMIDE INJ 10MG/2ML VIAL (J2765 PER 1) IV ONE (12:00)
[2021-10-13 12:11] LABS: ALBUMIN 3.5 GM/DL (3.2-5.2); BILIRUBIN,DIRECT 0.1 MG/DL (0.0-0.2); BILIRUBIN,TOTAL 0.7 MG/DL (0.2-1.0); TOTAL PROTEIN 7.6 GM/DL (6.4-8.2)
[2021-10-13 12:54] LABS: MAGNESIUM LEVEL 2.3 MG/DL (1.8-2.4)
[2021-10-13 13:05] LABS: RSV AMPLIFICATION NEGATIVE (NEGATIVE)
[2021-10-13] MEDS ORDERED: LIDOCAINE 2% 5ML JELLY UROJET TOP ONE (13:45)
[2021-10-13] MEDS ORDERED: ASPI81TA26 PO (15:02)
[2021-10-13] MEDS ORDERED: ACET500T15 PO (15:02)
[2021-10-13] MEDS ORDERED: JANU100T PO (15:02)
[2021-10-13] MEDS ORDERED: FLOM0.4C39 PO (15:02)
[2021-10-13] MEDS ORDERED: HOME MED LIST COMPLETE! XX SCH (15:05)
[2021-10-13] MEDS ORDERED: MAALOX 30 ML SUSP *UDC PO PRN (15:30)
[2021-10-13] MEDS ORDERED: MOM 30ML SUSPENSION UDC PO PRN (15:30)
[2021-10-13] MEDS: ASPIRIN 81MG ENTERIC TABLET PO SCH (16:29)
[2021-10-13] MEDS: TAMSULOSIN 0.4 MG CAP PO SCH (16:30)
[2021-10-13] MEDS: NS 1,000 ML IV SCH (16:30)
[2021-10-13] MEDS ORDERED: GLUCOSE 4GM CHEW TABLET PO PRN (17:05)
[2021-10-13] MEDS ORDERED: GLUCAGON INJ 1MG VIAL SC PRN (17:05)
[2021-10-13] MEDS ORDERED: DEXTROSE 50% 50 ML SYRINGE IV PRN (17:05)
[2021-10-13 18:06] LABS: CALCIUM LEVEL 8.3 MG/DL (8.5-10.1); CREATININE FOR GFR 3.41 MG/DL (0.70-1.30); GLOMERULAR FILTRATION RATE 20.4 (>56); POTASSIUM SERUM 3.9 MEQ/L (3.5-5.1)
[2021-10-13] MEDS: HumaLOG INSULIN (NovoLOG) PER UNIT SC SCH ×2 (19:17→21:00)
[2021-10-13] MEDS: FINASTERIDE 5 MG TAB PO SCH (20:49)
[2021-10-13 21:55] VITALS: BP 130/85
[2021-10-13] MEDS: HEPARIN SOD (PORCINE) 5000UNITS/ML 1ML VIAL/SYRINGE SC SCH (23:11)
[2021-10-14 00:12] LABS: CALCIUM LEVEL 8.2 MG/DL (8.5-10.1); CREATININE FOR GFR 3.12 MG/DL (0.70-1.30); GLOMERULAR FILTRATION RATE 22.6 (>56); POTASSIUM SERUM 3.8 MEQ/L (3.5-5.1)
[2021-10-14] MEDS: NS 1,000 ML IV SCH ×3 (00:59→15:00)
[2021-10-14 06:00] VITALS: BP 140/87
[2021-10-14 06:26] LABS: BASO % 0.2 % (0.0-1.0); EOS # 0.1 10^3/uL (0.0-0.5); EOS % 0.9 % (0.0-3.0); HEMATOCRIT 35.4 % (42.0-52.0); HEMOGLOBIN 12.4 g/dl (13.5-17.5); LYMPH # 1.5 10^3/uL (1.5-5.0); LYMPH % 16.7 % (24.0-44.0); MEAN CORPUSCULAR HEMOGLOBIN 31.9 pg (27.0-33.0); MONO # 0.7 10^3/uL (0.0-0.8); MONO % 7.7 % (2.0-8.0); NEUTROPHILS # 6.5 10^3/uL (1.5-8.5); NEUTROPHILS % 74.2 % (36.0-66.0); PLATELET COUNT, AUTOMATED 183 10^3/uL (150-450); RED BLOOD COUNT 3.89 10^6/uL (4.30-6.10); WHITE BLOOD COUNT 8.8 10^3/uL (4.0-10.0)
[2021-10-14] MEDS: HEPARIN SOD (PORCINE) 5000UNITS/ML 1ML VIAL/SYRINGE SC SCH ×3 (06:26→21:06)
[2021-10-14 07:16] LABS: BILIRUBIN,TOTAL 0.6 MG/DL (0.2-1.0); CALCIUM LEVEL 7.8 MG/DL (8.5-10.1); CREATININE FOR GFR 2.69 MG/DL (0.70-1.30); GLOMERULAR FILTRATION RATE 26.8 (>56); MAGNESIUM LEVEL 1.5 MG/DL (1.8-2.4); POTASSIUM SERUM 3.9 MEQ/L (3.5-5.1); TOTAL PROTEIN 5.7 GM/DL (6.4-8.2)
[2021-10-14 07:17] LABS: ALBUMIN 2.5 GM/DL (3.2-5.2)
[2021-10-14] MEDS: TAMSULOSIN 0.4 MG CAP PO SCH (08:14)
[2021-10-14] MEDS: ASPIRIN 81MG ENTERIC TABLET PO SCH (08:14)
[2021-10-14] MEDS: HumaLOG INSULIN (NovoLOG) PER UNIT SC SCH ×4 (08:15→21:00)
[2021-10-14 14:00] VITALS: BP 140/76
[2021-10-14] MEDS: MAG SULF 1GM/100ML (MAG RUN) 1 GM in IV 1 EA IV SCH ×2 (17:01→18:01)
[2021-10-14 17:45] LABS: CALCIUM LEVEL 7.9 MG/DL (8.5-10.1); CREATININE FOR GFR 2.53 MG/DL (0.70-1.30); GLOMERULAR FILTRATION RATE 28.7 (>56)
[2021-10-14] MEDS: ACETAMINOPHEN TAB 650MG DOSE (2X325MG) PO PRN ×2 (19:31→23:15)
[2021-10-14] MEDS: FINASTERIDE 5 MG TAB PO SCH (21:05)
[2021-10-14 22:00] VITALS: BP 142/76
[2021-10-15] MEDS: NS 1,000 ML IV SCH ×3 (03:06→17:47)
[2021-10-15] MEDS: HEPARIN SOD (PORCINE) 5000UNITS/ML 1ML VIAL/SYRINGE SC SCH ×3 (05:24→20:40)
[2021-10-15 06:00] VITALS: BP 133/84
[2021-10-15 06:19] LABS: BASO % 0.4 % (0.0-1.0); EOS # 0.2 10^3/uL (0.0-0.5); EOS % 2.7 % (0.0-3.0); HEMATOCRIT 34.3 % (42.0-52.0); LYMPH # 1.7 10^3/uL (1.5-5.0); LYMPH % 22.2 % (24.0-44.0); MEAN CORPUSCULAR VOLUME 91.5 fl (80.0-96.0); MONO # 0.7 10^3/uL (0.0-0.8); MONO % 9.2 % (2.0-8.0); NEUTROPHILS # 4.8 10^3/uL (1.5-8.5); NEUTROPHILS % 65.1 % (36.0-66.0); PLATELET COUNT, AUTOMATED 178 10^3/uL (150-450); RED BLOOD COUNT 3.75 10^6/uL (4.30-6.10); WHITE BLOOD COUNT 7.4 10^3/uL (4.0-10.0)
[2021-10-15 06:45] LABS: ALBUMIN 2.2 GM/DL (3.2-5.2); BILIRUBIN,TOTAL 0.3 MG/DL (0.2-1.0); CALCIUM LEVEL 7.6 MG/DL (8.5-10.1); CREATININE FOR GFR 2.09 MG/DL (0.70-1.30); GLOMERULAR FILTRATION RATE 35.8 (>56); POTASSIUM SERUM 3.7 MEQ/L (3.5-5.1); TOTAL PROTEIN 5.9 GM/DL (6.4-8.2)
[2021-10-15 06:47] LABS: CHOLESTEROL RISK RATIO 2.896 (<5)
[2021-10-15] MEDS: ACETAMINOPHEN TAB 650MG DOSE (2X325MG) PO PRN ×2 (06:55→14:11)
[2021-10-15] MEDS: ASPIRIN 81MG ENTERIC TABLET PO SCH (09:17)
[2021-10-15] MEDS: HumaLOG INSULIN (NovoLOG) PER UNIT SC SCH ×4 (09:17→21:19)
[2021-10-15] MEDS: LEVEMIR (INSULIN DETEMIR) 1 UNITS/0.01ML SC SCH (09:17)
[2021-10-15] MEDS: TAMSULOSIN 0.4 MG CAP PO SCH (09:18)
[2021-10-15 14:00] VITALS: BP 151/95
[2021-10-15 14:48] LABS: HEMOGLOBIN A1c 12.3 %
[2021-10-15] MEDS ORDERED: traMADol 50 MG TAB PO ONE (17:15)
[2021-10-15] MEDS: LIDOCAINE 5% (LIDODERM) PATCH TD SCH (17:47)
[2021-10-15] MEDS: FINASTERIDE 5 MG TAB PO SCH (20:40)
[2021-10-15] MEDS ORDERED: **NOTE PATIENT COMMENT** MISC XX SCH (21:00)
[2021-10-15 22:00] VITALS: BP_SYST 143; BP_SYST 148; BP_DIAS 78; BP_DIAS 94
[2021-10-16] MEDS: NS 1,000 ML IV SCH ×2 (01:06→08:46)
[2021-10-16] MEDS: HEPARIN SOD (PORCINE) 5000UNITS/ML 1ML VIAL/SYRINGE SC SCH (05:06)
[2021-10-16 06:00] VITALS: BP 153/96
[2021-10-16 06:56] LABS: BASO % 0.5 % (0.0-1.0); EOS # 0.2 10^3/uL (0.0-0.5); EOS % 2.8 % (0.0-3.0); HEMATOCRIT 35.3 % (42.0-52.0); HEMOGLOBIN 11.8 g/dl (13.5-17.5); LYMPH # 1.2 10^3/uL (1.5-5.0); LYMPH % 18.9 % (24.0-44.0); MEAN CORPUSCULAR HGB CONC 33.4 g/dl (32.0-36.5); MEAN CORPUSCULAR VOLUME 92.7 fl (80.0-96.0); MONO # 0.5 10^3/uL (0.0-0.8); MONO % 7.8 % (2.0-8.0); NEUTROPHILS # 4.5 10^3/uL (1.5-8.5); NEUTROPHILS % 69.2 % (36.0-66.0); PLATELET COUNT, AUTOMATED 173 10^3/uL (150-450); RED BLOOD COUNT 3.81 10^6/uL (4.30-6.10); WHITE BLOOD COUNT 6.5 10^3/uL (4.0-10.0)
[2021-10-16 07:19] LABS: ALBUMIN 2.4 GM/DL (3.2-5.2); BILIRUBIN,TOTAL 0.3 MG/DL (0.2-1.0); CALCIUM LEVEL 7.8 MG/DL (8.5-10.1); CREATININE FOR GFR 1.84 MG/DL (0.70-1.30); GLOMERULAR FILTRATION RATE 41.5 (>56); MAGNESIUM LEVEL 1.9 MG/DL (1.8-2.4); TOTAL PROTEIN 6.3 GM/DL (6.4-8.2)
[2021-10-16] MEDS: LIDOCAINE 5% (LIDODERM) PATCH TD SCH (08:47)
[2021-10-16] MEDS: LEVEMIR (INSULIN DETEMIR) 1 UNITS/0.01ML SC SCH (08:47)
[2021-10-16] MEDS: HumaLOG INSULIN (NovoLOG) PER UNIT SC SCH (08:47)
[2021-10-16] MEDS: ASPIRIN 81MG ENTERIC TABLET PO SCH (08:47)
[2021-10-16] MEDS: TAMSULOSIN 0.4 MG CAP PO SCH (08:47)
[2021-10-16] MEDS ORDERED: LANC30MI XX ×2 (10:05→10:19)
[2021-10-16] MEDS ORDERED: LANTINJ4 SC ×2 (10:05→10:19)
[2021-10-16] MEDS ORDERED: BLOOKIT21 XX ×2 (10:05→10:19)
[2021-10-16] MEDS ORDERED: GLUC1TES2 XX ×2 (10:05→10:19)
[2021-10-16] MEDS ORDERED: PEN1MIS22 SC ×2 (10:05→10:19)
[2021-10-16] MEDS ORDERED: FINA5TAB2 PO (10:05)
[2021-10-16] MEDS ORDERED: FLOM0.4C39 PO ×2 (10:05→10:19)
[2021-10-16] MEDS ORDERED: ALCOPAD25 TOP ×2 (10:05→10:19)
[2021-10-16] MEDS ORDERED: ASPI81TA26 PO (10:19)
[2021-10-16] MEDS ORDERED: ACET500T15 PO (10:19)
[2021-10-23] MEDS ORDERED: FINA5TAB2 PO (09:01)
[2021-10-23] MEDS ORDERED: ONDA4TAB6 PO (09:01)
[2021-10-23] MEDS ORDERED: CEFD300C PO (10:43)
[2021-10-23] MEDS ORDERED: ASPI81TA26 PO (16:55)
[2021-10-23] MEDS ORDERED: FLOM0.4C39 PO (16:55)
[2021-10-23] MEDS ORDERED: ACET500T15 PO (16:55)
[2021-10-23] MEDS ORDERED: LANTINJ4 SC (16:55)
[2021-10-25] MEDS ORDERED: LANTINJ4 SC (11:23)
[2021-10-25] MEDS ORDERED: METF-838 PO (11:24)
== END 2021-10-16 13:40 | disposition home or self-care (01) | DRG 699 ==
LOC: M ED 10:58 → EDBD 10:58 → M ED INP 15:29 → ENRESERV 18:30 → M MSPAV 21:55
PROVIDERS: ADMIT Family Medicine; ATTEND Family Medicine
DX: N32.0 Bladder-neck obstruction (principal); N17.9 Acute kidney failure, unspecified; N13.30 Unspecified hydronephrosis; E11.9 Type 2 diabetes mellitus without complications; I10 Essential (primary) hypertension; F43.10 Post-traumatic stress disorder, unspecified; M51.36 Other intervertebral disc degeneration, lumbar region; E78.5 Hyperlipidemia, unspecified; N40.1 Benign prostatic hyperplasia with lower urinary tract symptoms; R33.9 Retention of urine, unspecified; Z90.49 Acquired absence of other specified parts of digestive tract; Z20.822 Contact with and (suspected) exposure to COVID-19; Z79.82 Long term (current) use of aspirin; Z79.899 Other long term (current) drug therapy

== ENCOUNTER 2021-11-13 06:36 | Emergency (ER) | payer MEDICARE, MEDICAID ==
[~2021-11-13] VITALS: Ht 172.7 cm; Wt 72.8 kg
[~2021-11-13 06:36] MED LIST changes: +ACET500T15 PO; +ALCOPAD25 TOP; +ASPI81TA26 PO; +BLOOKIT21 XX; +CEFD300C PO; +FINA5TAB2 PO; +GLUC1TES2 XX; +JANU100T PO; +LANC30MI XX; +LANTINJ4 SC; +METF-838 PO; +PEN1MIS22 SC
[2021-11-13 07:55] VITALS: BP 168/94
== END 2021-11-13 07:56 | disposition home or self-care (01) ==
LOC: M ED 06:36
DX: R33.9 Retention of urine, unspecified (principal); T83.098A Other mechanical complication of other urinary catheter, initial encounter; E11.9 Type 2 diabetes mellitus without complications; N40.1 Benign prostatic hyperplasia with lower urinary tract symptoms; E78.5 Hyperlipidemia, unspecified; Z79.899 Other long term (current) drug therapy; Z79.82 Long term (current) use of aspirin; Z79.84 Long term (current) use of oral hypoglycemic drugs

== ENCOUNTER → 2021-11-15 | Outpatient (CLI) | payer MEDICARE, MEDICAID ==
[~2021-11-15] MED LIST changes: +CARA1TAB6 PO; +CVS1CHW13 PO; +FAMO20TA PO; +HYDR-3363 PO; +INSUDET SC; +LISI20TA33; +SERT50TA29 PO
== END ==
LOC: M RAD 12:35
PROVIDERS: ATTEND Physician Assistant
DX: R33.9 Retention of urine, unspecified (principal); N13.39 Other hydronephrosis

== ENCOUNTER 2021-11-17 07:25 | Emergency (ER) | payer MEDICARE, MEDICAID ==
[~2021-11-17] VITALS: Ht 172.7 cm; Wt 74.8 kg
[2021-11-17 07:25] VITALS: BP 143/73
[~2021-11-17 07:25] MED LIST changes: -CARA1TAB6 PO; -CVS1CHW13 PO; -FAMO20TA PO; -HYDR-3363 PO; -INSUDET SC; +LATU80TA; +LATU80TA PO; -LATU80TA2; -LATU80TA2 PO; +LISI-898 PO; -LISI20TA33; -LISI5TAB11 PO; -SERT50TA29 PO
== END 2021-11-17 09:59 | disposition home or self-care (01) ==
LOC: M ED 07:25
DX: T83.098A Other mechanical complication of other urinary catheter, initial encounter (principal); R33.9 Retention of urine, unspecified; E11.9 Type 2 diabetes mellitus without complications; E78.5 Hyperlipidemia, unspecified; Z79.82 Long term (current) use of aspirin; Z79.899 Other long term (current) drug therapy

== ENCOUNTER 2021-11-18 02:03 | Emergency (ER) | payer MEDICARE, MEDICAID ==
[2021-11-18 03:16] VITALS: BP 112/56
[2021-11-18] MEDS ORDERED: ONDANSETRON 4 MG ORAL DISINTEGRATING TAB PO ONE (03:25)
== END 2021-11-18 05:15 | disposition home or self-care (01) ==
LOC: M ED 02:03
DX: R33.9 Retention of urine, unspecified (principal); R10.9 Unspecified abdominal pain; R11.12 Projectile vomiting; E11.9 Type 2 diabetes mellitus without complications; I10 Essential (primary) hypertension; E78.5 Hyperlipidemia, unspecified; F43.10 Post-traumatic stress disorder, unspecified; N40.0 Benign prostatic hyperplasia without lower urinary tract symptoms; N52.9 Male erectile dysfunction, unspecified; Z79.899 Other long term (current) drug therapy; Z79.82 Long term (current) use of aspirin; Z79.4 Long term (current) use of insulin
CPT/HCPCS: 51702; 99284; Q0162

== ENCOUNTER 2021-11-22 06:08 | Emergency (ER) | payer MEDICARE, MEDICAID ==
[~2021-11-22] VITALS: Ht 172.7 cm; Wt 75.2 kg
[2021-11-22 08:25] LABS: BASO % 0.3 % (0.0-1.0); EOS # 0.2 10^3/uL (0.0-0.5); EOS % 2.2 % (0.0-3.0); HEMATOCRIT 39.3 % (42.0-52.0); LYMPH # 1.8 10^3/uL (1.5-5.0); LYMPH % 24.3 % (24.0-44.0); MEAN CORPUSCULAR HEMOGLOBIN 31.7 pg (27.0-33.0); MEAN CORPUSCULAR HGB CONC 35.6 g/dl (32.0-36.5); MEAN CORPUSCULAR VOLUME 88.9 fl (80.0-96.0); MONO # 0.6 10^3/uL (0.0-0.8); MONO % 7.9 % (2.0-8.0); NEUTROPHILS # 4.8 10^3/uL (1.5-8.5); NEUTROPHILS % 64.8 % (36.0-66.0); PLATELET COUNT, AUTOMATED 191 10^3/uL (150-450); RED BLOOD COUNT 4.42 10^6/uL (4.30-6.10); WHITE BLOOD COUNT 7.4 10^3/uL (4.0-10.0)
[2021-11-22 08:46] LABS: CALCIUM LEVEL 9.1 MG/DL (8.5-10.1); CREATININE FOR GFR 1.56 MG/DL (0.70-1.30); GLOMERULAR FILTRATION RATE 50.2 (>56); POTASSIUM SERUM 4.1 MEQ/L (3.5-5.1)
[2021-11-22] MEDS ORDERED: SITagliptin 50 MG TAB (JANUVIA) PO ONE (09:55)
[2021-11-22 10:21] VITALS: BP 130/77
== END 2021-11-22 10:25 | disposition home or self-care (01) ==
LOC: M ED 06:08
DX: E11.65 Type 2 diabetes mellitus with hyperglycemia (principal); T83.098A Other mechanical complication of other urinary catheter, initial encounter; N40.0 Benign prostatic hyperplasia without lower urinary tract symptoms; M51.9 Unspecified thoracic, thoracolumbar and lumbosacral intervertebral disc disorder; Z79.899 Other long term (current) drug therapy; Z79.82 Long term (current) use of aspirin; Z79.4 Long term (current) use of insulin

== ENCOUNTER 2021-11-27 01:19 | Emergency (ER) | payer MEDICARE, MEDICAID ==
[~2021-11-27] VITALS: Ht 172.7 cm; Wt 76.0 kg
[~2021-11-27 01:19] MED LIST changes: -LISI-898 PO; +LISI5TAB11 PO
[2021-11-27 01:21] VITALS: BP 111/78
== END 2021-11-27 06:10 | disposition left against medical advice (07) ==
LOC: M ED 01:19
DX: Z53.29 Procedure and treatment not carried out because of patient's decision for other reasons (principal)

== ENCOUNTER 2021-12-02 16:43 | Emergency (ER) | payer MEDICARE, MEDICAID ==
[~2021-12-02] VITALS: Ht 172.7 cm; Wt 75.0 kg
[2021-12-02] MEDS ORDERED: NS 500 ML IV ONE (16:55)
[2021-12-02 18:57] LABS: BASO % 0.2 % (0.0-1.0); EOS # 0.1 10^3/uL (0.0-0.5); EOS % 1.2 % (0.0-3.0); HEMATOCRIT 38.2 % (42.0-52.0); HEMOGLOBIN 13.7 g/dl (13.5-17.5); LYMPH # 1.8 10^3/uL (1.5-5.0); LYMPH % 18.5 % (24.0-44.0); MEAN CORPUSCULAR HEMOGLOBIN 32.1 pg (27.0-33.0); MEAN CORPUSCULAR HGB CONC 35.9 g/dl (32.0-36.5); MEAN CORPUSCULAR VOLUME 89.5 fl (80.0-96.0); MONO # 0.9 10^3/uL (0.0-0.8); MONO % 9.7 % (2.0-8.0); NEUTROPHILS # 6.8 10^3/uL (1.5-8.5); NEUTROPHILS % 69.8 % (36.0-66.0); PLATELET COUNT, AUTOMATED 152 10^3/uL (150-450); RED BLOOD COUNT 4.27 10^6/uL (4.30-6.10); WHITE BLOOD COUNT 9.7 10^3/uL (4.0-10.0)
[2021-12-02 19:16] LABS: CALCIUM LEVEL 8.5 MG/DL (8.5-10.1); CREATININE FOR GFR 1.49 MG/DL (0.70-1.30); GLOMERULAR FILTRATION RATE 52.9 (>56); MAGNESIUM LEVEL 2.1 MG/DL (1.8-2.4); POTASSIUM SERUM 3.8 MEQ/L (3.5-5.1)
[2021-12-02 20:19] VITALS: BP 114/79
== END 2021-12-02 20:34 | disposition home or self-care (01) ==
LOC: M ED 16:43
DX: R42 Dizziness and giddiness (principal); E11.9 Type 2 diabetes mellitus without complications; I10 Essential (primary) hypertension; F43.10 Post-traumatic stress disorder, unspecified; E78.5 Hyperlipidemia, unspecified; N40.0 Benign prostatic hyperplasia without lower urinary tract symptoms; Z79.899 Other long term (current) drug therapy; Z79.84 Long term (current) use of oral hypoglycemic drugs; Z79.82 Long term (current) use of aspirin; Z79.4 Long term (current) use of insulin

== ENCOUNTER 2021-12-06 15:12 | Emergency (ER) | payer MEDICARE, MEDICAID ==
[~2021-12-06] VITALS: Ht 175.3 cm; Wt 74.9 kg
[2021-12-06 20:38] VITALS: BP 146/80
[2021-12-06] MEDS ORDERED: LIDOCAINE 2% 5ML JELLY UROJET EXT ONE (22:05)
[2021-12-06] MEDS ORDERED: LIDOCAINE 2% JELLY 6 ML SYRINGE TOP ONE (22:05)
== END 2021-12-06 22:24 | disposition home or self-care (01) ==
LOC: M ED 15:12
DX: F99 Mental disorder, not otherwise specified (principal); T83.098A Other mechanical complication of other urinary catheter, initial encounter; Y92.89 Other specified places as the place of occurrence of the external cause; E11.9 Type 2 diabetes mellitus without complications; N40.0 Benign prostatic hyperplasia without lower urinary tract symptoms; F31.9 Bipolar disorder, unspecified; F43.10 Post-traumatic stress disorder, unspecified; Z79.899 Other long term (current) drug therapy; Z79.82 Long term (current) use of aspirin; Z79.4 Long term (current) use of insulin

== ENCOUNTER 2021-12-07 12:56 | Emergency (ER) | payer MEDICARE, MEDICAID ==
[~2021-12-07] VITALS: Ht 172.7 cm; Wt 75.0 kg
[2021-12-07] MEDS ORDERED: LIDOCAINE 2% 5ML JELLY UROJET TOP ONE (13:20)
[2021-12-07 14:45] LABS: HEMATOCRIT 40.8 % (42.0-52.0); HEMOGLOBIN 14.5 g/dl (13.5-17.5); MEAN CORPUSCULAR HEMOGLOBIN 31.4 pg (27.0-33.0); MEAN CORPUSCULAR HGB CONC 35.5 g/dl (32.0-36.5); MEAN CORPUSCULAR VOLUME 88.3 fl (80.0-96.0); PLATELET COUNT, AUTOMATED 183 10^3/uL (150-450); RED BLOOD COUNT 4.62 10^6/uL (4.30-6.10); WHITE BLOOD COUNT 11.7 10^3/uL (4.0-10.0)
[2021-12-07 15:10] LABS: AMPHETAMINES LEVEL URINE NEGATIVE (NEGATIVE); BARBITURATES URINE NEGATIVE (NEGATIVE); BENZODIAZEPINES URINE NEGATIVE (NEGATIVE); CANNABINOIDS URINE NEGATIVE (NEGATIVE); COCAINE METABOLITE URINE NEGATIVE (NEGATIVE); METHADONE URINE NEGATIVE (NEGATIVE); OPIATES URINE NEGATIVE (NEGATIVE); PHENCYCLIDINE URINE NEGATIVE (NEGATIVE)
[2021-12-07 15:32] LABS: ACETAMINOPHEN LEVEL < 2.0 UG/ML (10.0-30.0); ALBUMIN 3.6 GM/DL (3.2-5.2); ALT/SGPT 25 U/L (12-78); BILIRUBIN,DIRECT 0.2 MG/DL (0.0-0.2); BILIRUBIN,TOTAL 0.9 MG/DL (0.2-1.0); BLOOD UREA NITROGEN 27 MG/DL (7-18); CALCIUM LEVEL 8.9 MG/DL (8.5-10.1); CARBON DIOXIDE LEVEL 25 MEQ/L (21-32); CHLORIDE LEVEL 102 MEQ/L (98-107); CREATININE FOR GFR 1.61 MG/DL (0.70-1.30); ETHYL ALCOHOL (ETHANOL) < 0.003 % (0.000-0.010); GLOMERULAR FILTRATION RATE 48.4 (>56); GLUCOSE, FASTING 407 MG/DL (70-100); POTASSIUM SERUM 4.3 MEQ/L (3.5-5.1); SALICYLATE LEVEL < 1.7 MG/DL (5.0-30.0); SODIUM LEVEL 134 MEQ/L (136-145); THYROID STIMULATING HORMONE 0.728 uIU/ML (0.358-3.740)
[2021-12-07] MEDS ORDERED: HumuLIN R (REGULAR) INSULIN (NovoLIN R) **100U/ML** PER UNIT SC ONE (17:30)
[2021-12-07 19:05] VITALS: BP 116/71
== END 2021-12-07 19:06 | disposition home or self-care (01) ==
LOC: M ED 12:56
DX: F31.9 Bipolar disorder, unspecified (principal); F29 Unspecified psychosis not due to a substance or known physiological condition; F33.9 Major depressive disorder, recurrent, unspecified; E11.9 Type 2 diabetes mellitus without complications; F43.10 Post-traumatic stress disorder, unspecified; E78.5 Hyperlipidemia, unspecified; M51.36 Other intervertebral disc degeneration, lumbar region; N40.1 Benign prostatic hyperplasia with lower urinary tract symptoms; Z87.19 Personal history of other diseases of the digestive system; Z79.899 Other long term (current) drug therapy; Z79.84 Long term (current) use of oral hypoglycemic drugs; Z79.4 Long term (current) use of insulin; Z79.82 Long term (current) use of aspirin

== ENCOUNTER 2021-12-09 16:41 | Inpatient (IN) | payer MEDICARE, MEDICAID ==
[~2021-12-09] VITALS: Ht 172.7 cm; Wt 75.0 kg
[2021-12-09] MEDS ORDERED: HumaLOG INSULIN (NovoLOG) PER UNIT SC STA (17:40)
[2021-12-09 18:13] LABS: HEMATOCRIT 37.8 % (42.0-52.0); HEMOGLOBIN 13.4 g/dl (13.5-17.5); MEAN CORPUSCULAR HEMOGLOBIN 31.6 pg (27.0-33.0); MEAN CORPUSCULAR HGB CONC 35.4 g/dl (32.0-36.5); MEAN CORPUSCULAR VOLUME 89.2 fl (80.0-96.0); PLATELET COUNT, AUTOMATED 173 10^3/uL (150-450); RED BLOOD COUNT 4.24 10^6/uL (4.30-6.10); WHITE BLOOD COUNT 9.9 10^3/uL (4.0-10.0)
[2021-12-09 18:28] LABS: AMPHETAMINES LEVEL URINE NEGATIVE (NEGATIVE); BARBITURATES URINE NEGATIVE (NEGATIVE); BENZODIAZEPINES URINE NEGATIVE (NEGATIVE); CANNABINOIDS URINE NEGATIVE (NEGATIVE); COCAINE METABOLITE URINE NEGATIVE (NEGATIVE); METHADONE URINE NEGATIVE (NEGATIVE); OPIATES URINE NEGATIVE (NEGATIVE); PHENCYCLIDINE URINE NEGATIVE (NEGATIVE)
[2021-12-09 18:35] LABS: OSMOLALITY SERUM 303 MOSM/KG (275-295)
[2021-12-09 18:56] LABS: ACETAMINOPHEN LEVEL < 2.0 UG/ML (10.0-30.0); ALBUMIN 3.4 GM/DL (3.2-5.2); ALT/SGPT 21 U/L (12-78); BILIRUBIN,DIRECT 0.1 MG/DL (0.0-0.2); BILIRUBIN,TOTAL 0.5 MG/DL (0.2-1.0); BLOOD UREA NITROGEN 29 MG/DL (7-18); CALCIUM LEVEL 8.6 MG/DL (8.5-10.1); CARBON DIOXIDE LEVEL 27 MEQ/L (21-32); CHLORIDE LEVEL 100 MEQ/L (98-107); CREATININE FOR GFR 1.58 MG/DL (0.70-1.30); ETHYL ALCOHOL (ETHANOL) < 0.003 % (0.000-0.010); GLOMERULAR FILTRATION RATE 49.5 (>56); GLUCOSE, FASTING 493 MG/DL (70-100); POTASSIUM SERUM 3.9 MEQ/L (3.5-5.1); SALICYLATE LEVEL < 1.7 MG/DL (5.0-30.0); SODIUM LEVEL 135 MEQ/L (136-145); THYROID STIMULATING HORMONE 0.741 uIU/ML (0.358-3.740); TOTAL PROTEIN 6.9 GM/DL (6.4-8.2)
[2021-12-09] MEDS ORDERED: CVS1CHW13 PO (20:43)
[2021-12-09] MEDS ORDERED: LANTINJ4 SC (20:43)
[2021-12-09] MEDS ORDERED: HOME MED LIST COMPLETE! XX SCH (20:45)
[2021-12-09] MEDS ORDERED: POTASSIUM CHLORIDE 10MEQ SR TABLET PO ONE (21:45)
[2021-12-10] MEDS: HumaLOG INSULIN (NovoLOG) PER UNIT SC SCH ×4 (07:30→21:00)
[2021-12-10] MEDS ORDERED: DEXTROSE 50% 50 ML SYRINGE IV PRN (08:25)
[2021-12-10] MEDS ORDERED: GLUCOSE 4GM CHEW TABLET PO PRN (08:25)
[2021-12-10] MEDS ORDERED: GLUCAGON INJ 1MG VIAL SC PRN (08:25)
[2021-12-10] MEDS: BACTRIM 160MG/800MG DS TAB PO SCH ×2 (09:00→21:41)
[2021-12-11] MEDS: BACTRIM 160MG/800MG DS TAB PO SCH ×2 (09:26→21:00)
[2021-12-11] MEDS: HumaLOG INSULIN (NovoLOG) PER UNIT SC SCH ×4 (09:27→21:00)
[2021-12-12] MEDS: BACTRIM 160MG/800MG DS TAB PO SCH ×2 (08:25→21:47)
[2021-12-12] MEDS: HumaLOG INSULIN (NovoLOG) PER UNIT SC SCH ×4 (08:25→21:48)
[2021-12-12] MEDS ORDERED: MAALOX 30 ML SUSP *UDC PO PRN (14:00)
[2021-12-12] MEDS ORDERED: ACETAMINOPHEN TAB 650MG DOSE (2X325MG) PO PRN (14:00)
[2021-12-12] MEDS ORDERED: traZODone 50 MG TAB PO PRN (14:00)
[2021-12-12] MEDS ORDERED: GLUCOSE 4GM CHEW TABLET PO PRN (14:00)
[2021-12-12] MEDS ORDERED: MOM 30ML SUSPENSION UDC PO PRN (14:00)
[2021-12-12] MEDS ORDERED: GLUCAGON INJ 1MG VIAL SC PRN (14:00)
[2021-12-12] MEDS ORDERED: ONDANSETRON 4 MG ORAL DISINTEGRATING TAB PO PRN (14:00)
[2021-12-12] MEDS: ASPIRIN 81MG ENTERIC TABLET PO SCH (14:55)
[2021-12-12] MEDS: SITagliptin 50 MG TAB (JANUVIA) PO SCH (14:55)
[2021-12-12] MEDS: FINASTERIDE 5 MG TAB PO SCH (14:55)
[2021-12-12] MEDS: TAMSULOSIN 0.4 MG CAP PO SCH (14:55)
[2021-12-13 06:27] VITALS: BP 109/71
[2021-12-13] MEDS: HumaLOG INSULIN (NovoLOG) PER UNIT SC SCH ×4 (07:44→19:59)
[2021-12-13] MEDS: SITagliptin 50 MG TAB (JANUVIA) PO SCH (08:27)
[2021-12-13] MEDS: BACTRIM 160MG/800MG DS TAB PO SCH ×2 (08:27→20:02)
[2021-12-13] MEDS: TAMSULOSIN 0.4 MG CAP PO SCH (08:27)
[2021-12-13] MEDS: FINASTERIDE 5 MG TAB PO SCH (08:27)
[2021-12-13] MEDS: ASPIRIN 81MG ENTERIC TABLET PO SCH (08:27)
[2021-12-13] MEDS ORDERED: LEVEMIR (INSULIN DETEMIR) 1 UNITS/0.01ML SC SCH (09:00)
[2021-12-13] MEDS ORDERED: hydrOXYzine 25 MG TAB PO PRN (11:10)
[2021-12-13] MEDS ORDERED: SERTRALINE HCL 25 MG TABLET PO ONE (11:15)
[2021-12-13 19:03] VITALS: BP 143/74
[2021-12-13] MEDS: LEVEMIR (INSULIN DETEMIR) 1 UNITS/0.01ML SC SCH (20:02)
[2021-12-14 06:23] VITALS: BP 110/64
[2021-12-14] MEDS: HumaLOG INSULIN (NovoLOG) PER UNIT SC SCH ×4 (06:34→22:08)
[2021-12-14] MEDS: ASPIRIN 81MG ENTERIC TABLET PO SCH (08:11)
[2021-12-14] MEDS: BACTRIM 160MG/800MG DS TAB PO SCH ×2 (08:11→21:59)
[2021-12-14] MEDS: TAMSULOSIN 0.4 MG CAP PO SCH (08:12)
[2021-12-14] MEDS: LEVEMIR (INSULIN DETEMIR) 1 UNITS/0.01ML SC SCH ×2 (08:12→22:00)
[2021-12-14] MEDS: FINASTERIDE 5 MG TAB PO SCH (08:12)
[2021-12-14] MEDS: SERTRALINE HCL 50 MG TAB PO SCH (08:12)
[2021-12-14 17:36] VITALS: BP 127/74
[2021-12-15] MEDS: HumaLOG INSULIN (NovoLOG) PER UNIT SC SCH ×4 (06:32→22:23)
[2021-12-15 06:36] VITALS: BP 134/84
[2021-12-15] MEDS: FINASTERIDE 5 MG TAB PO SCH (08:12)
[2021-12-15] MEDS: ASPIRIN 81MG ENTERIC TABLET PO SCH (08:12)
[2021-12-15] MEDS: TAMSULOSIN 0.4 MG CAP PO SCH (08:12)
[2021-12-15] MEDS: SERTRALINE HCL 50 MG TAB PO SCH (08:12)
[2021-12-15] MEDS: LEVEMIR (INSULIN DETEMIR) 1 UNITS/0.01ML SC SCH ×2 (08:12→22:23)
[2021-12-15] MEDS: BACTRIM 160MG/800MG DS TAB PO SCH ×2 (08:12→22:22)
[2021-12-15] MEDS ORDERED: HYDR-3363 PO (09:27)
[2021-12-15] MEDS ORDERED: SERT50TA29 PO (09:27)
[2021-12-15 18:57] VITALS: BP 130/82
[2021-12-16] MEDS: HumaLOG INSULIN (NovoLOG) PER UNIT SC SCH ×2 (07:30→12:00)
[2021-12-16] MEDS: TAMSULOSIN 0.4 MG CAP PO SCH (09:48)
[2021-12-16] MEDS: FINASTERIDE 5 MG TAB PO SCH (09:49)
[2021-12-16] MEDS: SERTRALINE HCL 50 MG TAB PO SCH (09:49)
[2021-12-16] MEDS: BACTRIM 160MG/800MG DS TAB PO SCH (09:49)
[2021-12-16] MEDS: ASPIRIN 81MG ENTERIC TABLET PO SCH (09:51)
[2021-12-16] MEDS: LEVEMIR (INSULIN DETEMIR) 1 UNITS/0.01ML SC SCH (09:51)
[2021-12-16] MEDS ORDERED: INSUDET SC ×2 (09:57)
== END 2021-12-16 14:27 | disposition home or self-care (01) | DRG 885 ==
LOC: EDBD 16:41 → M ED 16:41 → M ED INP 12-12 14:00 → M PSY 12-12 15:38
PROVIDERS: ADMIT Psychiatry & Neurology Psychiatry; ATTEND Psychiatry & Neurology Psychiatry
DX: F33.2 Major depressive disorder, recurrent severe without psychotic features (principal); R45.851 Suicidal ideations; N40.1 Benign prostatic hyperplasia with lower urinary tract symptoms; E78.00 Pure hypercholesterolemia, unspecified; E11.65 Type 2 diabetes mellitus with hyperglycemia; R33.9 Retention of urine, unspecified; I10 Essential (primary) hypertension; E78.5 Hyperlipidemia, unspecified; F43.10 Post-traumatic stress disorder, unspecified; Z91.11 Patient's noncompliance with dietary regimen; Z79.82 Long term (current) use of aspirin; Z79.899 Other long term (current) drug therapy; Z79.4 Long term (current) use of insulin; Z65.2 Problems related to release from prison

== ENCOUNTER 2021-12-18 18:20 | Emergency (ER) | payer MEDICAID, MEDICARE ==
[~2021-12-18] VITALS: Ht 172.7 cm; Wt 74.8 kg
[~2021-12-18 18:20] MED LIST changes: +CVS1CHW13 PO; +HYDR-3363 PO; +INSUDET SC; -LATU80TA; -LATU80TA PO; +LATU80TA2; +LATU80TA2 PO; +SERT50TA29 PO
[2021-12-18 18:21] VITALS: BP 158/99
== END 2021-12-18 20:07 | disposition home or self-care (01) ==
LOC: M ED 18:20
DX: Z46.6 Encounter for fitting and adjustment of urinary device (principal); E11.9 Type 2 diabetes mellitus without complications; N28.9 Disorder of kidney and ureter, unspecified; I48.91 Unspecified atrial fibrillation; E78.5 Hyperlipidemia, unspecified; F33.9 Major depressive disorder, recurrent, unspecified; F41.9 Anxiety disorder, unspecified; F43.10 Post-traumatic stress disorder, unspecified; K21.9 Gastro-esophageal reflux disease without esophagitis; N40.1 Benign prostatic hyperplasia with lower urinary tract symptoms; R33.9 Retention of urine, unspecified; Z79.899 Other long term (current) drug therapy; Z79.82 Long term (current) use of aspirin; Z79.84 Long term (current) use of oral hypoglycemic drugs; Z79.4 Long term (current) use of insulin

== ENCOUNTER 2021-12-25 10:32 | Emergency (ER) | payer MEDICARE ==
[~2021-12-25] VITALS: Ht 172.7 cm; Wt 75.0 kg
[2021-12-25] MEDS ORDERED: CEPH500C PO (12:10)
[2021-12-25 12:19] VITALS: BP 103/71
== END 2021-12-25 12:20 | disposition home or self-care (01) ==
LOC: M ED 10:32
DX: L03.011 Cellulitis of right finger (principal); E11.9 Type 2 diabetes mellitus without complications; E78.5 Hyperlipidemia, unspecified; K21.9 Gastro-esophageal reflux disease without esophagitis; F31.9 Bipolar disorder, unspecified; F39 Unspecified mood [affective] disorder; F41.9 Anxiety disorder, unspecified; F43.10 Post-traumatic stress disorder, unspecified; Z79.899 Other long term (current) drug therapy; Z79.82 Long term (current) use of aspirin; Z79.4 Long term (current) use of insulin

== ENCOUNTER → 2021-12-30 | Emergency (ER) | payer MEDICARE ==
[~2021-12-30] VITALS: Ht 172.7 cm; Wt 75.7 kg
[2021-12-30 11:28] VITALS: BP 123/82
== END | disposition left against medical advice (07) ==
LOC: EDUNIT# 10:52 → EDBD 10:59 → M ED 10:59
DX: Z53.21 Procedure and treatment not carried out due to patient leaving prior to being seen by health care provider (principal)

== ENCOUNTER 2022-01-02 09:57 | Emergency (ER) | payer MEDICARE ==
[~2022-01-02] VITALS: Ht 172.7 cm; Wt 72.7 kg
[2022-01-02 10:51] LABS: BASO % 0.4 % (0.0-1.0); EOS # 0.3 10^3/uL (0.0-0.5); EOS % 3.6 % (0.0-3.0); HEMATOCRIT 43.1 % (42.0-52.0); HEMOGLOBIN 14.8 g/dl (13.5-17.5); LYMPH # 1.7 10^3/uL (1.5-5.0); LYMPH % 22.9 % (24.0-44.0); MEAN CORPUSCULAR HEMOGLOBIN 31.3 pg (27.0-33.0); MEAN CORPUSCULAR HGB CONC 34.3 g/dl (32.0-36.5); MEAN CORPUSCULAR VOLUME 91.1 fl (80.0-96.0); MONO # 0.7 10^3/uL (0.0-0.8); MONO % 8.8 % (2.0-8.0); NEUTROPHILS # 4.8 10^3/uL (1.5-8.5); NEUTROPHILS % 63.8 % (36.0-66.0); PLATELET COUNT, AUTOMATED 205 10^3/uL (150-450); RED BLOOD COUNT 4.73 10^6/uL (4.30-6.10); WHITE BLOOD COUNT 7.5 10^3/uL (4.0-10.0)
[2022-01-02] MEDS ORDERED: NS 1,000 ML IV ONE (11:00)
[2022-01-02] MEDS ORDERED: MECLIZINE 25 MG TABLET PO ONE (11:00)
[2022-01-02] MEDS ORDERED: ONDANSETRON 4MG/2ML VIAL IV ONE (11:00)
[2022-01-02 11:20] LABS: CREATININE FOR GFR 1.46 MG/DL (0.70-1.30); POTASSIUM SERUM 4.2 MEQ/L (3.5-5.1)
[2022-01-02 11:21] LABS: ALBUMIN 3.6 GM/DL (3.2-5.2); BILIRUBIN,DIRECT 0.2 MG/DL (0.0-0.2); BILIRUBIN,TOTAL 0.4 MG/DL (0.2-1.0); CALCIUM LEVEL 8.9 MG/DL (8.5-10.1); THYROID STIMULATING HORMONE 1.48 uIU/ML (0.358-3.740); TOTAL PROTEIN 7.3 GM/DL (6.4-8.2)
[2022-01-02] MEDS ORDERED: GI COCKTAIL 50ML BTL(HYOSCYAMINE/MAALOX/LIDOCAINE VISCOUS)(1:3:1) PO ONE ×2 (11:30→11:35)
[2022-01-02 12:16] LABS: AMORPHOUS SEDIMENT SMALL (NEGATIVE); APPEARANCE, URINE CLOUDY (CLEAR); BACTERIA, URINE AUTO 2+ (NEGATIVE); BILIRUBIN, URINE AUTO NEGATIVE (NEGATIVE); BLOOD, URINE BLOOD NEGATIVE (NEGATIVE); CALCIUM OXALATE CRYSTALS MODERATE; COLOR, URINE YELLOW (YELLOW); GLUCOSE, URINE (UA) AUTO 3+ mg/dL (NEGATIVE); KETONE, URINE AUTO NEGATIVE (NEGATIVE); LEUKOCYTE ESTERASE, URINE AUTO TRACE (NEGATIVE); NITRITE, URINE AUTO NEGATIVE (NEGATIVE); PROTEIN, URINE AUTO NEGATIVE (NEGATIVE); RBC, URINE AUTO 7 /HPF (0-3); SPECIFIC GRAVITY URINE AUTO 1.018 (1.002-1.035); SQUAMOUS EPITHELIAL CELL UR AU 0 /HPF (0-6); UROBILINOGEN, URINE AUTO 0.2 mg/dL (0.0-2.0); WBC, URINE AUTO 26 /HPF (0-3)
[2022-01-02] MEDS ORDERED: CARA1TAB6 PO (12:44)
[2022-01-02] MEDS ORDERED: FAMO20TA PO (12:44)
[2022-01-02 13:00] VITALS: BP 115/77
== END 2022-01-02 13:32 | disposition home or self-care (01) ==
LOC: EDBD 09:57 → M ED 11:52
DX: N30.90 Cystitis, unspecified without hematuria (principal); R42 Dizziness and giddiness; E11.9 Type 2 diabetes mellitus without complications; I10 Essential (primary) hypertension; F20.9 Schizophrenia, unspecified; Z79.899 Other long term (current) drug therapy; Z79.82 Long term (current) use of aspirin; Z79.4 Long term (current) use of insulin
CPT/HCPCS: 70450; 71045; 80048; 80076; 81001; 83605; 83690; 84439; 84443; 85025; 87040; 87088; 87186; 93005; 93041; 94760; 96361; 96374; 99285; J2405

== ENCOUNTER 2022-01-08 15:30 | Emergency (ER) | payer MEDICARE ==
[~2022-01-08 15:30] MED LIST changes: +CARA1TAB6 PO; +FAMO20TA PO
[2022-01-08] MEDS ORDERED: ACETAMINOPHEN 325 MG TAB PO ONE (15:45)
[2022-01-08 16:22] LABS: BASO % 0.3 % (0.0-1.0); EOS # 0.2 10^3/uL (0.0-0.5); HEMATOCRIT 41.8 % (42.0-52.0); HEMOGLOBIN 14.4 g/dl (13.5-17.5); LYMPH # 2.1 10^3/uL (1.5-5.0); LYMPH % 21.8 % (24.0-44.0); MEAN CORPUSCULAR HEMOGLOBIN 31.3 pg (27.0-33.0); MEAN CORPUSCULAR HGB CONC 34.4 g/dl (32.0-36.5); MEAN CORPUSCULAR VOLUME 90.9 fl (80.0-96.0); MONO # 0.7 10^3/uL (0.0-0.8); MONO % 7.2 % (2.0-8.0); NEUTROPHILS # 6.5 10^3/uL (1.5-8.5); NEUTROPHILS % 68.2 % (36.0-66.0); PLATELET COUNT, AUTOMATED 206 10^3/uL (150-450); WHITE BLOOD COUNT 9.6 10^3/uL (4.0-10.0)
[2022-01-08] MEDS ORDERED: NS 1,000 ML IV ONE (17:05)
[2022-01-08 17:11] LABS: ALBUMIN 3.7 GM/DL (3.2-5.2); BILIRUBIN,DIRECT 0.2 MG/DL (0.0-0.2); BILIRUBIN,TOTAL 0.8 MG/DL (0.2-1.0); CALCIUM LEVEL 9.1 MG/DL (8.5-10.1); CREATININE FOR GFR 1.61 MG/DL (0.70-1.30); FREE T4 1.07 NG/DL (0.76-1.46); GLOMERULAR FILTRATION RATE 48.2 (>56); THYROID STIMULATING HORMONE 0.788 uIU/ML (0.358-3.740); TOTAL PROTEIN 7.2 GM/DL (6.4-8.2)
[2022-01-08] MEDS ORDERED: LISI20TA33 (18:49)
[2022-01-08 19:00] VITALS: BP 127/77
== END 2022-01-08 19:11 | disposition home or self-care (01) ==
LOC: EDBD 15:30 → M ED 15:30
DX: I95.1 Orthostatic hypotension (principal); E11.9 Type 2 diabetes mellitus without complications; E78.5 Hyperlipidemia, unspecified; F31.9 Bipolar disorder, unspecified; F33.9 Major depressive disorder, recurrent, unspecified; F43.10 Post-traumatic stress disorder, unspecified; K21.9 Gastro-esophageal reflux disease without esophagitis; Z79.899 Other long term (current) drug therapy; Z79.82 Long term (current) use of aspirin; Z79.4 Long term (current) use of insulin

== ENCOUNTER → 2022-01-10 | Outpatient (CLI) | payer MEDICARE ==
[~2022-01-10] MED LIST changes: +LISI20TA33
[2022-01-10 08:52] LABS: BASO % 0.4 % (0.0-1.0); EOS # 0.3 10^3/uL (0.0-0.5); EOS % 3.1 % (0.0-3.0); HEMATOCRIT 43.5 % (42.0-52.0); HEMOGLOBIN 15.1 g/dl (13.5-17.5); LYMPH # 2.5 10^3/uL (1.5-5.0); LYMPH % 29.7 % (24.0-44.0); MEAN CORPUSCULAR HEMOGLOBIN 31.5 pg (27.0-33.0); MEAN CORPUSCULAR HGB CONC 34.7 g/dl (32.0-36.5); MEAN CORPUSCULAR VOLUME 90.8 fl (80.0-96.0); MONO # 0.6 10^3/uL (0.0-0.8); MONO % 7.7 % (2.0-8.0); NEUTROPHILS # 4.8 10^3/uL (1.5-8.5); NEUTROPHILS % 58.6 % (36.0-66.0); PLATELET COUNT, AUTOMATED 219 10^3/uL (150-450); RED BLOOD COUNT 4.79 10^6/uL (4.30-6.10); WHITE BLOOD COUNT 8.3 10^3/uL (4.0-10.0)
[2022-01-10 09:18] LABS: HEMOGLOBIN A1c 9.6 %
[2022-01-10 09:22] LABS: ALBUMIN 3.9 GM/DL (3.2-5.2); BILIRUBIN,DIRECT 0.2 MG/DL (0.0-0.2); BILIRUBIN,TOTAL 0.6 MG/DL (0.2-1.0); CALCIUM LEVEL 9.5 MG/DL (8.5-10.1); CHOLESTEROL RISK RATIO 2.051 (<5); CREATININE FOR GFR 1.43 MG/DL (0.70-1.30); FREE T3 2.9 PG/ML (2.2-4.0); FREE T4 1.07 NG/DL (0.76-1.46); GLOMERULAR FILTRATION RATE 55.3 (>56); POTASSIUM SERUM 4.5 MEQ/L (3.5-5.1); THYROID STIMULATING HORMONE 0.804 uIU/ML (0.358-3.740); TOTAL PROTEIN 7.6 GM/DL (6.4-8.2)
[2022-01-10 09:23] LABS: TOTAL 25(OH) VITAMIN D 17.4 NG/ML (30.0-100.0)
== END ==
LOC: M LAB 08:11
PROVIDERS: ATTEND Nurse Practitioner Psychiatric/Mental Health
DX: F32.9 Major depressive disorder, single episode, unspecified (principal); Z79.899 Other long term (current) drug therapy; Z79.82 Long term (current) use of aspirin; Z79.4 Long term (current) use of insulin

== ENCOUNTER 2022-01-22 16:57 | Emergency (ER) | payer MEDICARE ==
[2022-01-22 16:57] VITALS: BP 132/85
[2022-01-22] MEDS ORDERED: LIDOCAINE 2% 5ML JELLY UROJET TOP ONE (19:45)
== END 2022-01-22 20:45 | disposition home or self-care (01) ==
LOC: M ED 16:57
DX: N40.0 Benign prostatic hyperplasia without lower urinary tract symptoms (principal); T83.098A Other mechanical complication of other urinary catheter, initial encounter; E11.9 Type 2 diabetes mellitus without complications; N28.9 Disorder of kidney and ureter, unspecified; E78.5 Hyperlipidemia, unspecified; K21.9 Gastro-esophageal reflux disease without esophagitis; G89.29 Other chronic pain; M54.9 Dorsalgia, unspecified; Z87.19 Personal history of other diseases of the digestive system; Z79.899 Other long term (current) drug therapy; Z79.4 Long term (current) use of insulin; Z79.82 Long term (current) use of aspirin

== ENCOUNTER 2022-01-23 06:02 | Emergency (ER) | payer MEDICARE ==
[~2022-01-23] VITALS: Ht 172.7 cm; Wt 72.7 kg
[2022-01-23] MEDS ORDERED: NS 1,000 ML IV ONE (06:30)
[2022-01-23] MEDS ORDERED: HumuLIN R (REGULAR) INSULIN (NovoLIN R) **100U/ML** PER UNIT IV ONE (06:35)
[2022-01-23 07:06] LABS: BASO % 0.3 % (0.0-1.0); EOS # 0.2 10^3/uL (0.0-0.5); EOS % 2.6 % (0.0-3.0); HEMATOCRIT 39.9 % (42.0-52.0); HEMOGLOBIN 14.1 g/dl (13.5-17.5); LYMPH # 1.5 10^3/uL (1.5-5.0); LYMPH % 21.5 % (24.0-44.0); MEAN CORPUSCULAR HEMOGLOBIN 31.8 pg (27.0-33.0); MEAN CORPUSCULAR HGB CONC 35.3 g/dl (32.0-36.5); MEAN CORPUSCULAR VOLUME 89.9 fl (80.0-96.0); MONO # 0.6 10^3/uL (0.0-0.8); MONO % 8.3 % (2.0-8.0); NEUTROPHILS # 4.6 10^3/uL (1.5-8.5); PLATELET COUNT, AUTOMATED 164 10^3/uL (150-450); RED BLOOD COUNT 4.44 10^6/uL (4.30-6.10); WHITE BLOOD COUNT 6.8 10^3/uL (4.0-10.0)
[2022-01-23 07:28] LABS: ALBUMIN 3.6 GM/DL (3.2-5.2); ALT/SGPT 33 U/L (12-78); BILIRUBIN,DIRECT < 0.1 MG/DL (0.0-0.2); BILIRUBIN,TOTAL 0.5 MG/DL (0.2-1.0); LIPASE 60 U/L (73-393); TOTAL PROTEIN 7.1 GM/DL (6.4-8.2)
[2022-01-23 08:38] LABS: HEMOGLOBIN A1c 9.4 %
[2022-01-23 08:55] VITALS: BP 133/87
== END 2022-01-23 09:18 | disposition home or self-care (01) ==
LOC: M ED 06:02
DX: E11.65 Type 2 diabetes mellitus with hyperglycemia (principal); N18.9 Chronic kidney disease, unspecified; E78.5 Hyperlipidemia, unspecified; F31.9 Bipolar disorder, unspecified; F43.10 Post-traumatic stress disorder, unspecified; K21.9 Gastro-esophageal reflux disease without esophagitis; Z79.899 Other long term (current) drug therapy; Z79.4 Long term (current) use of insulin; Z79.82 Long term (current) use of aspirin
CPT/HCPCS: 74021; 80047; 80076; 82010; 83036; 83690; 85025; 96361; 96374; 99284; J1815

== ENCOUNTER → 2022-01-26 | Outpatient (CLI) | payer MEDICARE, MEDICAID ==
[2022-01-26 13:31] LABS: HEMATOCRIT 40.4 % (42.0-52.0); HEMOGLOBIN 14.1 g/dl (13.5-17.5); MEAN CORPUSCULAR HEMOGLOBIN 31.3 pg (27.0-33.0); MEAN CORPUSCULAR HGB CONC 34.9 g/dl (32.0-36.5); MEAN CORPUSCULAR VOLUME 89.8 fl (80.0-96.0); PLATELET COUNT, AUTOMATED 186 10^3/uL (150-450); WHITE BLOOD COUNT 7.7 10^3/uL (4.0-10.0)
[2022-01-26 13:41] LABS: INR 1.06; PROTHROMBIN TIME 14.2 SECONDS (12.7-14.5)
[2022-01-26 14:12] LABS: ALBUMIN 3.6 GM/DL (3.2-5.2); ALT/SGPT 33 U/L (12-78); BILIRUBIN,TOTAL 0.9 MG/DL (0.2-1.0); BLOOD UREA NITROGEN 27 MG/DL (7-18); CARBON DIOXIDE LEVEL 31 MEQ/L (21-32); CHLORIDE LEVEL 105 MEQ/L (98-107); CREATININE FOR GFR 1.14 MG/DL (0.70-1.30); GLOMERULAR FILTRATION RATE > 60.0 (>56); GLUCOSE, FASTING 305 MG/DL (70-100); POTASSIUM SERUM 3.8 MEQ/L (3.5-5.1); SODIUM LEVEL 138 MEQ/L (136-145); TOTAL PROTEIN 7.3 GM/DL (6.4-8.2)
[2022-01-27 23:07] LABS: PSA % FREE 30.1 % (.); PSA FREE 2.71 ng/mL
== END ==
LOC: M RAD 12:34
PROVIDERS: ATTEND Urology
DX: R33.9 Retention of urine, unspecified (principal); Z79.01 Long term (current) use of anticoagulants; R97.20 Elevated prostate specific antigen [PSA]

== ENCOUNTER 2022-02-03 06:06 | Emergency (ER) | payer MEDICARE, MEDICAID ==
[~2022-02-03] VITALS: Ht 172.7 cm; Wt 75.0 kg
[2022-02-03] MEDS ORDERED: LIDOCAINE 2% 5ML JELLY UROJET TOP ONE (06:40)
[2022-02-03 07:34] LABS: BASO % 0.4 % (0.0-1.0); EOS # 0.2 10^3/uL (0.0-0.5); EOS % 2.7 % (0.0-3.0); HEMATOCRIT 42.7 % (42.0-52.0); LYMPH # 1.8 10^3/uL (1.5-5.0); LYMPH % 25.5 % (24.0-44.0); MEAN CORPUSCULAR HEMOGLOBIN 31.3 pg (27.0-33.0); MEAN CORPUSCULAR HGB CONC 35.1 g/dl (32.0-36.5); MONO # 0.6 10^3/uL (0.0-0.8); MONO % 8.7 % (2.0-8.0); NEUTROPHILS # 4.4 10^3/uL (1.5-8.5); PLATELET COUNT, AUTOMATED 173 10^3/uL (150-450); WHITE BLOOD COUNT 7.1 10^3/uL (4.0-10.0)
[2022-02-03] MEDS ORDERED: ATOR1TAB21 (07:37)
[2022-02-03 08:06] LABS: ALBUMIN 3.8 GM/DL (3.2-5.2); ALT/SGPT 31 U/L (12-78); BILIRUBIN,DIRECT 0.2 MG/DL (0.0-0.2); BILIRUBIN,TOTAL 0.7 MG/DL (0.2-1.0); BLOOD UREA NITROGEN 21 MG/DL (7-18); CARBON DIOXIDE LEVEL 29 MEQ/L (21-32); CHLORIDE LEVEL 107 MEQ/L (98-107); CREATININE FOR GFR 1.21 MG/DL (0.70-1.30); GLOMERULAR FILTRATION RATE > 60.0 (>56); GLUCOSE, FASTING 247 MG/DL (70-100); LIPASE 61 U/L (73-393); SODIUM LEVEL 140 MEQ/L (136-145); TOTAL PROTEIN 7.3 GM/DL (6.4-8.2)
[2022-02-03] MEDS ORDERED: ACETAMINOPHEN 325 MG TAB PO ONE (09:00)
[2022-02-03] MEDS ORDERED: ISOVUE-370 76% 100ML VIAL As Ordered ONE (09:48)
[2022-02-03 10:01] LABS: CK-MB VALUE MASS 3.8 NG/ML (<3.6); MB/CK RELATIVE INDEX 3.28 (< OR =4)
[2022-02-03 10:48] LABS: CK-MB VALUE MASS 3.5 NG/ML (<3.6); MB/CK RELATIVE INDEX 3.54 (< OR =4)
[2022-02-03 11:30] VITALS: BP 135/85
== END 2022-02-03 11:49 | disposition home or self-care (01) ==
LOC: M ED 06:06
DX: Z46.6 Encounter for fitting and adjustment of urinary device (principal); R42 Dizziness and giddiness; R10.9 Unspecified abdominal pain; R07.9 Chest pain, unspecified; I12.9 Hypertensive chronic kidney disease with stage 1 through stage 4 chronic kidney disease, or unspecified chronic kidney disease; N18.9 Chronic kidney disease, unspecified; N40.0 Benign prostatic hyperplasia without lower urinary tract symptoms; E11.9 Type 2 diabetes mellitus without complications; M54.9 Dorsalgia, unspecified; G89.29 Other chronic pain; E78.2 Mixed hyperlipidemia; F17.200 Nicotine dependence, unspecified, uncomplicated; Z79.899 Other long term (current) drug therapy; Z79.4 Long term (current) use of insulin; Z79.82 Long term (current) use of aspirin; Z98.890 Other specified postprocedural states
CPT/HCPCS: 51702; 71045; 74177; 80048; 80076; 81001; 82550; 82553; 83690; 84484; 85025; 87088; 87186; 93005; 99285; Q9967

== ENCOUNTER 2022-02-08 17:41 | Emergency (ER) | payer MEDICARE, MEDICAID ==
[~2022-02-08] VITALS: Ht 172.7 cm; Wt 75.0 kg
[~2022-02-08 17:41] MED LIST changes: +ATOR1TAB21 PO
[2022-02-08 18:10] VITALS: BP 141/94
[2022-02-08] MEDS ORDERED: KETOROLAC 30 MG/ML 1ML VIAL IV ONE (19:30)
[2022-02-08] MEDS ORDERED: NS 1,000 ML IV ONE (19:30)
[2022-02-09] MEDS ORDERED: SERT50TA29 PO (02:15)
[2022-02-09] MEDS ORDERED: HYDR-3363 PO (02:15)
[2022-02-09] MEDS ORDERED: INSUDET SC ×2 (02:15)
== END 2022-02-08 19:36 | disposition left against medical advice (07) ==
LOC: M ED 17:41
DX: R07.9 Chest pain, unspecified (principal); M54.9 Dorsalgia, unspecified; E11.9 Type 2 diabetes mellitus without complications; N40.0 Benign prostatic hyperplasia without lower urinary tract symptoms; F31.9 Bipolar disorder, unspecified; Z96.0 Presence of urogenital implants; Z79.899 Other long term (current) drug therapy; Z79.82 Long term (current) use of aspirin; Z79.4 Long term (current) use of insulin

== ENCOUNTER 2022-02-08 20:54 | Emergency (ER) | payer MEDICARE, MEDICAID ==
[~2022-02-08] VITALS: Ht 172.7 cm; Wt 75.0 kg
[2022-02-09 00:06] LABS: AMPHETAMINES LEVEL URINE NEGATIVE (NEGATIVE); BARBITURATES URINE NEGATIVE (NEGATIVE); BENZODIAZEPINES URINE NEGATIVE (NEGATIVE); CANNABINOIDS URINE NEGATIVE (NEGATIVE); COCAINE METABOLITE URINE NEGATIVE (NEGATIVE); METHADONE URINE NEGATIVE (NEGATIVE); OPIATES URINE NEGATIVE (NEGATIVE); PHENCYCLIDINE URINE NEGATIVE (NEGATIVE)
[2022-02-09 00:10] LABS: CK-MB VALUE MASS 4.1 NG/ML (<3.6); MB/CK RELATIVE INDEX 1.79 (< OR =4)
[2022-02-09 00:12] LABS: HEMATOCRIT 43.5 % (42.0-52.0); HEMOGLOBIN 15.5 g/dl (13.5-17.5); MEAN CORPUSCULAR HEMOGLOBIN 31.5 pg (27.0-33.0); MEAN CORPUSCULAR HGB CONC 35.6 g/dl (32.0-36.5); MEAN CORPUSCULAR VOLUME 88.4 fl (80.0-96.0); PLATELET COUNT, AUTOMATED 202 10^3/uL (150-450); RED BLOOD COUNT 4.92 10^6/uL (4.30-6.10); WHITE BLOOD COUNT 9.5 10^3/uL (4.0-10.0)
[2022-02-09 00:21] LABS: ACETAMINOPHEN LEVEL 3.9 UG/ML (10.0-30.0); ALBUMIN 3.8 GM/DL (3.2-5.2); ALT/SGPT 34 U/L (12-78); BILIRUBIN,DIRECT 0.1 MG/DL (0.0-0.2); BILIRUBIN,TOTAL 0.6 MG/DL (0.2-1.0); BLOOD UREA NITROGEN 33 MG/DL (7-18); CALCIUM LEVEL 8.7 MG/DL (8.5-10.1); CARBON DIOXIDE LEVEL 26 MEQ/L (21-32); CHLORIDE LEVEL 109 MEQ/L (98-107); ETHYL ALCOHOL (ETHANOL) < 0.003 % (0.000-0.010); GLOMERULAR FILTRATION RATE 56.7 (>56); GLUCOSE, FASTING 269 MG/DL (70-100); POTASSIUM SERUM 3.9 MEQ/L (3.5-5.1); SALICYLATE LEVEL < 1.7 MG/DL (5.0-30.0); SODIUM LEVEL 140 MEQ/L (136-145)
[2022-02-09 00:38] LABS: RSV AMPLIFICATION NEGATIVE (NEGATIVE)
[2022-02-09 01:41] LABS: MB/CK RELATIVE INDEX 1.74 (< OR =4)
[2022-02-09] MEDS ORDERED: INSUDET SC ×2 (02:15)
[2022-02-09] MEDS ORDERED: HOME MED LIST COMPLETE! XX SCH (02:15)
[2022-02-09] MEDS ORDERED: HYDR-3363 PO (02:15)
[2022-02-09] MEDS ORDERED: SERT50TA29 PO (02:15)
[2022-02-09] MEDS ORDERED: ASPIRIN 81 MG CHEW TABLET PO ONE (07:50)
[2022-02-09] MEDS ORDERED: SERTRALINE HCL 50 MG TAB PO ONE (07:50)
[2022-02-09] MEDS ORDERED: LEVEMIR (INSULIN DETEMIR) 1 UNITS/0.01ML SC ONE (07:50)
[2022-02-09] MEDS ORDERED: TAMSULOSIN 0.4 MG CAP PO ONE (07:50)
[2022-02-09] MEDS ORDERED: ATORVASTATIN 20 MG TAB PO ONE (07:50)
[2022-02-09 12:37] VITALS: BP 140/82
== END 2022-02-09 12:44 ==
LOC: M ED 20:54
DX: R45.851 Suicidal ideations (principal); E11.9 Type 2 diabetes mellitus without complications; F31.9 Bipolar disorder, unspecified; N40.0 Benign prostatic hyperplasia without lower urinary tract symptoms; Z96.0 Presence of urogenital implants; R07.9 Chest pain, unspecified; M54.9 Dorsalgia, unspecified; Z79.899 Other long term (current) drug therapy; Z79.82 Long term (current) use of aspirin; Z79.4 Long term (current) use of insulin
CPT/HCPCS: 36415; 80048; 80076; 80143; 80307; 81001; 82077; 82550; 82553; 84443; 84484; 85027; 87088; 87186; 87631; 93005; 99283; 99284; J1815

== ENCOUNTER → 2022-02-15 | Outpatient (REF) | payer MEDICARE, MEDICAID ==
[~2022-02-15] MED LIST changes: +CIPR500T39
== END ==
LOC: M SMT PRO 17:17
PROVIDERS: ATTEND Urology
DX: R97.20 Elevated prostate specific antigen [PSA] (principal)
CPT/HCPCS: 88342; G0416

== ENCOUNTER 2022-02-16 01:06 | Emergency (ER) | payer MEDICARE, MEDICAID ==
[~2022-02-16] VITALS: Ht 172.7 cm; Wt 75.0 kg
[~2022-02-16 01:06] MED LIST changes: -CIPR500T39
[2022-02-16 08:16] VITALS: BP 134/82
[2022-02-16] MEDS ORDERED: CIPR500T39 (18:55)
== END 2022-02-16 08:27 | disposition home or self-care (01) ==
LOC: M ED 01:06
DX: R22.42 Localized swelling, mass and lump, left lower limb (principal); J06.9 Acute upper respiratory infection, unspecified; E11.9 Type 2 diabetes mellitus without complications; I10 Essential (primary) hypertension; I48.91 Unspecified atrial fibrillation; E78.5 Hyperlipidemia, unspecified; F33.9 Major depressive disorder, recurrent, unspecified; F31.9 Bipolar disorder, unspecified; F41.9 Anxiety disorder, unspecified; F43.10 Post-traumatic stress disorder, unspecified; K21.9 Gastro-esophageal reflux disease without esophagitis; N40.0 Benign prostatic hyperplasia without lower urinary tract symptoms; Z79.899 Other long term (current) drug therapy; Z79.82 Long term (current) use of aspirin; Z79.4 Long term (current) use of insulin; Z53.29 Procedure and treatment not carried out because of patient's decision for other reasons

== ENCOUNTER 2022-02-16 18:19 | Emergency (ER) | payer MEDICARE, MEDICAID ==
[~2022-02-16] VITALS: Ht 172.7 cm; Wt 75.8 kg
[2022-02-16 18:19] VITALS: BP 141/87
[2022-02-16] MEDS ORDERED: CIPR500T39 (18:55)
== END 2022-02-16 23:11 | disposition left against medical advice (07) ==
LOC: M ED 18:19
DX: Z53.29 Procedure and treatment not carried out because of patient's decision for other reasons (principal)

== ENCOUNTER 2022-02-17 14:07 | Emergency (ER) | payer MEDICARE, MEDICAID ==
[~2022-02-17] VITALS: Ht 172.7 cm; Wt 75.3 kg
[~2022-02-17 14:07] MED LIST changes: +CIPR500T39
[2022-02-17 14:08] VITALS: BP 128/77
== END 2022-02-17 17:43 | disposition left against medical advice (07) ==
LOC: M ED 14:07
DX: Z53.21 Procedure and treatment not carried out due to patient leaving prior to being seen by health care provider (principal)

== ENCOUNTER 2022-02-19 05:31 | Emergency (ER) | payer MEDICARE, MEDICAID ==
[~2022-02-19] VITALS: Ht 172.7 cm; Wt 73.0 kg
[2022-02-19 08:50] VITALS: BP 152/93
== END 2022-02-19 08:52 | disposition home or self-care (01) ==
LOC: M ED 05:31
DX: N50.89 Other specified disorders of the male genital organs (principal); T83.098A Other mechanical complication of other urinary catheter, initial encounter; I12.9 Hypertensive chronic kidney disease with stage 1 through stage 4 chronic kidney disease, or unspecified chronic kidney disease; N18.9 Chronic kidney disease, unspecified; E11.9 Type 2 diabetes mellitus without complications; F31.9 Bipolar disorder, unspecified; F33.9 Major depressive disorder, recurrent, unspecified; F41.9 Anxiety disorder, unspecified; F43.10 Post-traumatic stress disorder, unspecified; E78.5 Hyperlipidemia, unspecified; I48.91 Unspecified atrial fibrillation; K21.9 Gastro-esophageal reflux disease without esophagitis; N40.0 Benign prostatic hyperplasia without lower urinary tract symptoms; Z87.19 Personal history of other diseases of the digestive system; Z79.899 Other long term (current) drug therapy; Z79.82 Long term (current) use of aspirin; Z79.4 Long term (current) use of insulin

== ENCOUNTER 2022-02-25 22:51 | Emergency (ER) | payer MEDICARE, MEDICAID ==
[~2022-02-25] VITALS: Ht 172.7 cm; Wt 75.6 kg
[2022-02-26 02:01] VITALS: BP 119/76
== END 2022-02-26 02:35 | disposition home or self-care (01) ==
LOC: M ED 22:51
DX: D17.1 Benign lipomatous neoplasm of skin and subcutaneous tissue of trunk (principal); E11.9 Type 2 diabetes mellitus without complications; I10 Essential (primary) hypertension; I48.91 Unspecified atrial fibrillation; F31.9 Bipolar disorder, unspecified; F43.10 Post-traumatic stress disorder, unspecified; Z79.899 Other long term (current) drug therapy; Z79.4 Long term (current) use of insulin

== ENCOUNTER 2022-02-26 19:24 | Emergency (ER) | payer MEDICARE, MEDICAID ==
[~2022-02-26] VITALS: Ht 172.7 cm; Wt 75.0 kg
[2022-02-26 19:46] VITALS: BP 146/92
== END 2022-02-26 21:10 | disposition left against medical advice (07) ==
LOC: M ED 19:24 → EDBD 19:24 → M ED 21:10
DX: Z53.29 Procedure and treatment not carried out because of patient's decision for other reasons (principal)

== ENCOUNTER 2022-02-28 15:20 | Emergency (ER) | payer MEDICARE, MEDICAID ==
[~2022-02-28] VITALS: Ht 172.7 cm; Wt 75.0 kg
[2022-02-28] MEDS ORDERED: NS 1,000 ML IV ONE (18:55)
[2022-02-28 19:34] LABS: BASO % 0.3 % (0.0-1.0); EOS # 0.2 10^3/uL (0.0-0.5); EOS % 1.9 % (0.0-3.0); HEMATOCRIT 45.9 % (42.0-52.0); HEMOGLOBIN 16.2 g/dl (13.5-17.5); LYMPH # 2.2 10^3/uL (1.5-5.0); LYMPH % 25.1 % (24.0-44.0); MEAN CORPUSCULAR HEMOGLOBIN 31.5 pg (27.0-33.0); MEAN CORPUSCULAR HGB CONC 35.3 g/dl (32.0-36.5); MEAN CORPUSCULAR VOLUME 89.3 fl (80.0-96.0); MONO # 0.7 10^3/uL (0.0-0.8); MONO % 7.3 % (2.0-8.0); NEUTROPHILS # 5.7 10^3/uL (1.5-8.5); NEUTROPHILS % 64.7 % (36.0-66.0); PLATELET COUNT, AUTOMATED 212 10^3/uL (150-450); RED BLOOD COUNT 5.14 10^6/uL (4.30-6.10); WHITE BLOOD COUNT 8.9 10^3/uL (4.0-10.0)
[2022-02-28 20:03] LABS: BLOOD UREA NITROGEN 22 MG/DL (7-18); CALCIUM LEVEL 9.5 MG/DL (8.5-10.1); CARBON DIOXIDE LEVEL 28 MEQ/L (21-32); CHLORIDE LEVEL 107 MEQ/L (98-107); CREATININE FOR GFR 1.18 MG/DL (0.70-1.30); GLOMERULAR FILTRATION RATE > 60.0 (>56); GLUCOSE, FASTING 301 MG/DL (70-100); POTASSIUM SERUM 4.3 MEQ/L (3.5-5.1); SODIUM LEVEL 140 MEQ/L (136-145)
[2022-02-28 20:52] VITALS: BP 161/95
== END 2022-02-28 20:53 | disposition home or self-care (01) ==
LOC: M ED 15:20
DX: R10.2 Pelvic and perineal pain (principal); N32.89 Other specified disorders of bladder; N40.0 Benign prostatic hyperplasia without lower urinary tract symptoms; Z79.899 Other long term (current) drug therapy; Z79.4 Long term (current) use of insulin

== ENCOUNTER 2022-03-04 10:59 | Emergency (ER) | payer MEDICARE, MEDICAID ==
[~2022-03-04] VITALS: Ht 172.7 cm; Wt 75.0 kg
[2022-03-04 11:58] VITALS: BP 135/76
[2022-03-04 12:02] LABS: BASO % 0.1 % (0.0-1.0); EOS # 0.1 10^3/uL (0.0-0.5); EOS % 1.7 % (0.0-3.0); HEMOGLOBIN 15.3 g/dl (13.5-17.5); LYMPH # 1.6 10^3/uL (1.5-5.0); MEAN CORPUSCULAR HEMOGLOBIN 31.9 pg (27.0-33.0); MEAN CORPUSCULAR HGB CONC 35.6 g/dl (32.0-36.5); MEAN CORPUSCULAR VOLUME 89.8 fl (80.0-96.0); MONO # 0.5 10^3/uL (0.0-0.8); MONO % 6.9 % (2.0-8.0); NEUTROPHILS # 4.7 10^3/uL (1.5-8.5); NEUTROPHILS % 67.7 % (36.0-66.0); PLATELET COUNT, AUTOMATED 184 10^3/uL (150-450); RED BLOOD COUNT 4.79 10^6/uL (4.30-6.10); WHITE BLOOD COUNT 6.9 10^3/uL (4.0-10.0)
[2022-03-04 13:02] LABS: ALBUMIN 3.6 GM/DL (3.2-5.2); ALT/SGPT 33 U/L (12-78); BILIRUBIN,TOTAL 0.7 MG/DL (0.2-1.0); BLOOD UREA NITROGEN 25 MG/DL (7-18); CARBON DIOXIDE LEVEL 25 MEQ/L (21-32); CHLORIDE LEVEL 102 MEQ/L (98-107); CREATININE FOR GFR 1.33 MG/DL (0.70-1.30); GLOMERULAR FILTRATION RATE > 60.0 (>56); GLUCOSE, FASTING 549 MG/DL (70-100); POTASSIUM SERUM 4.6 MEQ/L (3.5-5.1); SODIUM LEVEL 135 MEQ/L (136-145)
[2022-03-04] MEDS ORDERED: HumuLIN R (REGULAR) INSULIN (NovoLIN R) **100U/ML** PER UNIT SC ONE (13:10)
== END 2022-03-04 13:28 | disposition home or self-care (01) ==
LOC: M ED 10:59 → EDBD 10:59 → M ED 13:28
DX: R42 Dizziness and giddiness (principal); E11.9 Type 2 diabetes mellitus without complications; Z91.19 Patient's noncompliance with other medical treatment and regimen; I10 Essential (primary) hypertension; E78.5 Hyperlipidemia, unspecified; F31.9 Bipolar disorder, unspecified; R33.9 Retention of urine, unspecified; N40.1 Benign prostatic hyperplasia with lower urinary tract symptoms; Z96.0 Presence of urogenital implants; Z79.899 Other long term (current) drug therapy; Z79.4 Long term (current) use of insulin

== ENCOUNTER 2022-03-06 09:24 | Inpatient (IN) | payer MEDICARE, MEDICAID ==
[~2022-03-06] VITALS: Ht 172.7 cm; Wt 75.0 kg
[2022-03-06] MEDS ORDERED: BACTDSTA PO (09:39)
[2022-03-06] MEDS ORDERED: LATU40TA2 PO (09:39)
[2022-03-06] MEDS ORDERED: NITROGLYCERIN 0.4 MG SUBL TABLET SL PRN (10:15)
[2022-03-06] MEDS ORDERED: NS 1,000 ML IV SCH (10:15)
[2022-03-06] MEDS ORDERED: ASPIRIN 81 MG CHEW TABLET PO ONE (10:15)
[2022-03-06 10:36] LABS: BASO % 0.4 % (0.0-1.0); EOS # 0.2 10^3/uL (0.0-0.5); EOS % 2.3 % (0.0-3.0); HEMATOCRIT 47.5 % (42.0-52.0); HEMOGLOBIN 16.9 g/dl (13.5-17.5); LYMPH % 26.9 % (24.0-44.0); MEAN CORPUSCULAR HEMOGLOBIN 31.6 pg (27.0-33.0); MEAN CORPUSCULAR HGB CONC 35.6 g/dl (32.0-36.5); MEAN CORPUSCULAR VOLUME 88.8 fl (80.0-96.0); MONO # 0.7 10^3/uL (0.0-0.8); MONO % 9.1 % (2.0-8.0); NEUTROPHILS # 4.6 10^3/uL (1.5-8.5); NEUTROPHILS % 60.6 % (36.0-66.0); PLATELET COUNT, AUTOMATED 199 10^3/uL (150-450); RED BLOOD COUNT 5.35 10^6/uL (4.30-6.10); WHITE BLOOD COUNT 7.6 10^3/uL (4.0-10.0)
[2022-03-06 11:08] LABS: CK-MB VALUE MASS 5.6 NG/ML (<3.6); MB/CK RELATIVE INDEX 4.63 (< OR =4)
[2022-03-06 11:16] LABS: ALT/SGPT 30 U/L (12-78); BILIRUBIN,DIRECT 0.2 MG/DL (0.0-0.2); BILIRUBIN,TOTAL 0.8 MG/DL (0.2-1.0); BLOOD UREA NITROGEN 30 MG/DL (7-18); CALCIUM LEVEL 9.4 MG/DL (8.5-10.1); CARBON DIOXIDE LEVEL 26 MEQ/L (21-32); CHLORIDE LEVEL 106 MEQ/L (98-107); CREATININE FOR GFR 1.16 MG/DL (0.70-1.30); GLOMERULAR FILTRATION RATE > 60.0 (>56); GLUCOSE, FASTING 214 MG/DL (70-100); NT-PRO BNP 63 PG/ML (<125); POTASSIUM SERUM 4.2 MEQ/L (3.5-5.1); SODIUM LEVEL 138 MEQ/L (136-145); THYROXINE (T4) 7.5 UG/DL (4.5-12.0); TOTAL PROTEIN 7.6 GM/DL (6.4-8.2)
[2022-03-06] MEDS ORDERED: ISOVUE-370 76% 100ML VIAL As Ordered ONE (12:01)
[2022-03-06] MEDS ORDERED: HYDR50TA70 PO (13:12)
[2022-03-06] MEDS ORDERED: HOME MED LIST COMPLETE! XX SCH (13:45)
[2022-03-06] MEDS ORDERED: GLUCOSE 4GM CHEW TABLET PO PRN (13:50)
[2022-03-06] MEDS ORDERED: hydrOXYzine 50 MG TAB PO PRN (13:50)
[2022-03-06] MEDS ORDERED: DEXTROSE 50% 50 ML SYRINGE IV PRN (13:50)
[2022-03-06] MEDS ORDERED: GLUCAGON INJ 1MG VIAL SC PRN (13:50)
[2022-03-06 15:24] VITALS: BP 127/82
[2022-03-06] MEDS: SERTRALINE HCL 50 MG TAB PO SCH (16:23)
[2022-03-06] MEDS: ATORVASTATIN 20 MG TAB PO SCH (16:23)
[2022-03-06] MEDS: HumaLOG INSULIN (NovoLOG) PER UNIT SC SCH (17:32)
[2022-03-06 18:19] VITALS: BP_SYST 115; BP_SYST 120; BP_SYST 123; BP_DIAS 79; BP_DIAS 80; BP_DIAS 81
[2022-03-06] MEDS ORDERED: LEVEMIR (INSULIN DETEMIR) 1 UNITS/0.01ML SC SCH (21:00)
[2022-03-06] MEDS ORDERED: FINASTERIDE 5MG TAB PO SCH (21:00)
[2022-03-06] MEDS ORDERED: HumaLOG INSULIN (NovoLOG) PER UNIT SC SCH (21:00)
[2022-03-06 22:00] VITALS: BP 127/86
[2022-03-06 22:53] LABS: INR 1.04
[2022-03-06 22:54] LABS: PARTIAL THROMBOPLASTIN TIME 28.8 SECONDS (25.9-37.0)
[2022-03-06 23:01] LABS: HEMOGLOBIN A1c 10.4 %
[2022-03-06 23:05] LABS: BLOOD UREA NITROGEN 26 MG/DL (7-18); CALCIUM LEVEL 8.4 MG/DL (8.5-10.1); CARBON DIOXIDE LEVEL 27 MEQ/L (21-32); CHLORIDE LEVEL 108 MEQ/L (98-107); CREATININE FOR GFR 1.06 MG/DL (0.70-1.30); GLOMERULAR FILTRATION RATE > 60.0 (>56); GLUCOSE, FASTING 180 MG/DL (70-100); MAGNESIUM LEVEL 2.2 MG/DL (1.8-2.4); POTASSIUM SERUM 3.7 MEQ/L (3.5-5.1); SODIUM LEVEL 138 MEQ/L (136-145)
[2022-03-07] MEDS ORDERED: ENOXAPARIN 100MG/1ML SYRINGE (J1650 PER 10MG) SC SCH
[2022-03-07 02:00] VITALS: BP 141/99
[2022-03-07 06:09] VITALS: BP 131/83
[2022-03-07 06:12] LABS: HEMATOCRIT 44.3 % (42.0-52.0); HEMOGLOBIN 15.7 g/dl (13.5-17.5); MEAN CORPUSCULAR HEMOGLOBIN 31.3 pg (27.0-33.0); MEAN CORPUSCULAR HGB CONC 35.4 g/dl (32.0-36.5); MEAN CORPUSCULAR VOLUME 88.4 fl (80.0-96.0); PLATELET COUNT, AUTOMATED 189 10^3/uL (150-450); RED BLOOD COUNT 5.01 10^6/uL (4.30-6.10); WHITE BLOOD COUNT 7.8 10^3/uL (4.0-10.0)
[2022-03-07 06:34] LABS: BLOOD UREA NITROGEN 22 MG/DL (7-18); CALCIUM LEVEL 8.6 MG/DL (8.5-10.1); CARBON DIOXIDE LEVEL 27 MEQ/L (21-32); CHLORIDE LEVEL 109 MEQ/L (98-107); CREATININE FOR GFR 0.98 MG/DL (0.70-1.30); GLOMERULAR FILTRATION RATE > 60.0 (>56); GLUCOSE, FASTING 146 MG/DL (70-100); PHOSPHORUS LEVEL 2.9 MG/DL (2.5-4.9); POTASSIUM SERUM 3.6 MEQ/L (3.5-5.1); SODIUM LEVEL 140 MEQ/L (136-145)
[2022-03-07] MEDS: SERTRALINE HCL 50 MG TAB PO SCH (08:22)
[2022-03-07] MEDS: HumaLOG INSULIN (NovoLOG) PER UNIT SC SCH (08:22)
[2022-03-07] MEDS: ATORVASTATIN 20 MG TAB PO SCH (08:22)
[2022-03-07 08:45] VITALS: BP_SYST 131; BP_SYST 133; BP_SYST 148; BP_DIAS 91; BP_DIAS 93; BP_DIAS 97
[2022-03-07] MEDS ORDERED: LEVEMIR (INSULIN DETEMIR) 1 UNITS/0.01ML SC SCH (09:00)
[2022-03-07] MEDS ORDERED: ENOXAPARIN 40MG/0.4ML SYRINGE (J1650 PER 10MG) SC SCH (09:00)
[2022-03-07 09:48] LABS: PROLACTIN 5.1 NG/ML (2.1-17.7)
[2022-03-07 10:00] VITALS: BP 128/88
== END 2022-03-07 11:30 | disposition left against medical advice (07) | DRG 310 ==
LOC: M ED 09:24 → M ED INP 13:28 → ENRESERV 13:47 → M MSPAV 15:25
PROVIDERS: ADMIT Internal Medicine; ATTEND Internal Medicine
DX: I48.0 Paroxysmal atrial fibrillation (principal); E11.9 Type 2 diabetes mellitus without complications; I10 Essential (primary) hypertension; E78.5 Hyperlipidemia, unspecified; F41.9 Anxiety disorder, unspecified; N40.1 Benign prostatic hyperplasia with lower urinary tract symptoms; Z96.0 Presence of urogenital implants; Z79.899 Other long term (current) drug therapy; Z79.4 Long term (current) use of insulin; F32.A Depression, unspecified; Z91.19 Patient's noncompliance with other medical treatment and regimen

== ENCOUNTER 2022-03-15 14:43 | Emergency (ER) | payer MEDICARE, MEDICAID ==
[~2022-03-15] VITALS: Ht 172.7 cm; Wt 73.8 kg
[~2022-03-15 14:43] MED LIST changes: +BACTDSTA PO; +HYDR50TA70 PO; +LATU40TA2 PO
[2022-03-15 14:44] VITALS: BP 129/83
== END 2022-03-15 19:30 | disposition left against medical advice (07) ==
LOC: M ED 14:43
DX: Z53.29 Procedure and treatment not carried out because of patient's decision for other reasons (principal)

== ENCOUNTER 2022-03-16 06:44 | Emergency (ER) | payer MEDICARE, MEDICAID ==
[2022-03-16 08:26] LABS: VENOUS BASE EXCESS -1.8 (-2.0-2.0); VENOUS HCO3 24.9 MEQ/L (23.0-27.0); VENOUS O2 SATURATION 87.6 % (60.0-80.0); VENOUS PARTIAL PRESSURE CO2 49.4 mmHg (38.0-50.0); VENOUS PARTIAL PRESSURE O2 56.3 mmHg (30.0-50.0); VENOUS STANDARD HCO3 22.7 MEQ/L; VENOUS TOTAL CO2 26.4 MEQ/L (24.0-28.0)
[2022-03-16 08:30] LABS: BASO % 0.3 % (0.0-1.0); EOS # 0.1 10^3/uL (0.0-0.5); EOS % 1.7 % (0.0-3.0); HEMATOCRIT 43.3 % (42.0-52.0); HEMOGLOBIN 15.3 g/dl (13.5-17.5); LYMPH # 1.6 10^3/uL (1.5-5.0); LYMPH % 22.5 % (24.0-44.0); MEAN CORPUSCULAR HEMOGLOBIN 31.3 pg (27.0-33.0); MEAN CORPUSCULAR HGB CONC 35.3 g/dl (32.0-36.5); MEAN CORPUSCULAR VOLUME 88.5 fl (80.0-96.0); MONO # 0.5 10^3/uL (0.0-0.8); MONO % 7.6 % (2.0-8.0); NEUTROPHILS # 4.7 10^3/uL (1.5-8.5); NEUTROPHILS % 67.2 % (36.0-66.0); PLATELET COUNT, AUTOMATED 164 10^3/uL (150-450); RED BLOOD COUNT 4.89 10^6/uL (4.30-6.10); WHITE BLOOD COUNT 6.9 10^3/uL (4.0-10.0)
[2022-03-16 08:55] LABS: ALBUMIN 3.6 GM/DL (3.2-5.2); ALT/SGPT 32 U/L (12-78); BILIRUBIN,DIRECT < 0.1 MG/DL (0.0-0.2); BILIRUBIN,TOTAL 0.4 MG/DL (0.2-1.0); LIPASE 82 U/L (73-393); TOTAL PROTEIN 6.9 GM/DL (6.4-8.2)
[2022-03-16 09:20] LABS: BLOOD UREA NITROGEN 25 MG/DL (7-18); CALCIUM LEVEL 9.2 MG/DL (8.5-10.1); CARBON DIOXIDE LEVEL 24 MEQ/L (21-32); CHLORIDE LEVEL 102 MEQ/L (98-107); CREATININE FOR GFR 1.18 MG/DL (0.70-1.30); GLOMERULAR FILTRATION RATE > 60.0 (>56); GLUCOSE, FASTING 573 MG/DL (70-100); POTASSIUM SERUM 4.5 MEQ/L (3.5-5.1); SODIUM LEVEL 134 MEQ/L (136-145)
[2022-03-16] MEDS ORDERED: HumuLIN R (REGULAR) INSULIN (NovoLIN R) **100U/ML** PER UNIT SC ONE (09:35)
[2022-03-16 10:02] LABS: ACETONE/KETONE 1.18 MG/DL (<2.81)
[2022-03-16 10:25] LABS: OSMOLALITY SERUM 315 MOSM/KG (275-295)
[2022-03-16 10:45] VITALS: BP 116/75
[2022-03-16 12:24] LABS: HEMOGLOBIN A1c 10.4 %
== END 2022-03-16 11:02 | disposition home or self-care (01) ==
LOC: M ED 06:44
DX: E11.65 Type 2 diabetes mellitus with hyperglycemia (principal); I10 Essential (primary) hypertension; E78.5 Hyperlipidemia, unspecified; N40.0 Benign prostatic hyperplasia without lower urinary tract symptoms; F33.9 Major depressive disorder, recurrent, unspecified; F41.9 Anxiety disorder, unspecified; Z79.899 Other long term (current) drug therapy; Z79.4 Long term (current) use of insulin
CPT/HCPCS: 36415; 80048; 80076; 81001; 82010; 82803; 83036; 83690; 83930; 85025; 87088; 87186; 93005; 93041; 99285; J1815

== ENCOUNTER 2022-03-20 23:55 | Emergency (ER) | payer MEDICARE, MEDICAID ==
[~2022-03-20] VITALS: Ht 172.7 cm; Wt 72.1 kg
[~2022-03-20 23:55] MED LIST changes: -AFRI0.058; +OXYM15SP2
[2022-03-21 00:46] LABS: APPEARANCE, URINE HAZY (CLEAR); BACTERIA, URINE AUTO 1+ (NEGATIVE); BILIRUBIN, URINE AUTO NEGATIVE (NEGATIVE); BLOOD, URINE BLOOD NEGATIVE (NEGATIVE); COLOR, URINE YELLOW (YELLOW); GLUCOSE, URINE (UA) AUTO 3+ mg/dL (NEGATIVE); KETONE, URINE AUTO NEGATIVE (NEGATIVE); LEUKOCYTE ESTERASE, URINE AUTO 1+ (NEGATIVE); MUCUS, URINE SMALL (NEGATIVE); NITRITE, URINE AUTO POSITIVE (NEGATIVE); PROTEIN, URINE AUTO NEGATIVE (NEGATIVE); RBC, URINE AUTO 2 /HPF (0-3); SQUAMOUS EPITHELIAL CELL UR AU 0 /HPF (0-6); UROBILINOGEN, URINE AUTO 0.2 mg/dL (0.0-2.0); WBC, URINE AUTO 28 /HPF (0-3)
[2022-03-21] MEDS ORDERED: NS 1,000 ML IV ONE (07:55)
[2022-03-21 08:22] LABS: BASO % 0.3 % (0.0-1.0); EOS # 0.1 10^3/uL (0.0-0.5); EOS % 1.2 % (0.0-3.0); HEMATOCRIT 44.7 % (42.0-52.0); HEMOGLOBIN 15.9 g/dl (13.5-17.5); LYMPH # 1.4 10^3/uL (1.5-5.0); LYMPH % 18.1 % (24.0-44.0); MEAN CORPUSCULAR HEMOGLOBIN 31.2 pg (27.0-33.0); MEAN CORPUSCULAR HGB CONC 35.6 g/dl (32.0-36.5); MEAN CORPUSCULAR VOLUME 87.8 fl (80.0-96.0); MONO # 0.6 10^3/uL (0.0-0.8); MONO % 7.5 % (2.0-8.0); NEUTROPHILS # 5.5 10^3/uL (1.5-8.5); NEUTROPHILS % 72.1 % (36.0-66.0); PLATELET COUNT, AUTOMATED 163 10^3/uL (150-450); RED BLOOD COUNT 5.09 10^6/uL (4.30-6.10); WHITE BLOOD COUNT 7.6 10^3/uL (4.0-10.0)
[2022-03-21 08:29] VITALS: BP 112/76
[2022-03-21] MEDS ORDERED: KETOROLAC 30 MG/ML 1ML VIAL IV ONE (09:35)
[2022-03-21] MEDS ORDERED: BACT800T5 PO (10:05)
== END 2022-03-21 10:25 | disposition home or self-care (01) ==
LOC: M ED 23:55
DX: M54.50 Low back pain, unspecified (principal); Z79.899 Other long term (current) drug therapy; Z79.4 Long term (current) use of insulin
CPT/HCPCS: 76775; 80047; 81001; 85025; 96361; 96374; 99284; J1885

== ENCOUNTER 2022-03-25 05:17 | Emergency (ER) | payer MEDICARE, MEDICAID ==
[~2022-03-25] VITALS: Ht 172.7 cm; Wt 74.3 kg
[~2022-03-25 05:17] MED LIST changes: +BACT800T5 PO
[2022-03-25] MEDS ORDERED: ACETAMINOPHEN 325 MG TAB PO ONE (07:30)
[2022-03-25 09:43] VITALS: BP 142/80
[2022-03-29] MEDS ORDERED: BACTDSTA (14:21)
== END 2022-03-25 09:25 | disposition home or self-care (01) ==
LOC: M ED 05:17
DX: E04.1 Nontoxic single thyroid nodule (principal); E11.9 Type 2 diabetes mellitus without complications; I10 Essential (primary) hypertension; I48.91 Unspecified atrial fibrillation; M51.9 Unspecified thoracic, thoracolumbar and lumbosacral intervertebral disc disorder; M19.90 Unspecified osteoarthritis, unspecified site; Z96.0 Presence of urogenital implants; Z79.899 Other long term (current) drug therapy; Z79.4 Long term (current) use of insulin
CPT/HCPCS: 76536; 80048; 80076; 82803; 83690; 85025; 96374; 99283; 99284; J1815

== ENCOUNTER 2022-03-25 16:44 | Emergency (ER) | payer MEDICARE, MEDICAID ==
[2022-03-25 16:57] VITALS: BP 130/81
[2022-03-25] MEDS ORDERED: HumuLIN R (REGULAR) INSULIN (NovoLIN R) **100U/ML** PER UNIT IV ONE (17:25)
[2022-03-25 17:34] LABS: VENOUS BASE EXCESS -1.1 (-2.0-2.0); VENOUS HCO3 24.6 MEQ/L (23.0-27.0); VENOUS O2 SATURATION 82.1 % (60.0-80.0); VENOUS PARTIAL PRESSURE CO2 44.8 mmHg (38.0-50.0); VENOUS PARTIAL PRESSURE O2 46.3 mmHg (30.0-50.0); VENOUS PH 7.358 UNITS (7.330-7.430); VENOUS STANDARD HCO3 23.1 MEQ/L
[2022-03-25 17:46] LABS: BASO % 0.3 % (0.0-1.0); EOS # 0.1 10^3/uL (0.0-0.5); EOS % 1.9 % (0.0-3.0); HEMATOCRIT 42.5 % (42.0-52.0); HEMOGLOBIN 15.1 g/dl (13.5-17.5); LYMPH # 1.8 10^3/uL (1.5-5.0); LYMPH % 24.3 % (24.0-44.0); MEAN CORPUSCULAR HEMOGLOBIN 31.4 pg (27.0-33.0); MEAN CORPUSCULAR HGB CONC 35.5 g/dl (32.0-36.5); MEAN CORPUSCULAR VOLUME 88.4 fl (80.0-96.0); MONO # 0.6 10^3/uL (0.0-0.8); MONO % 7.4 % (2.0-8.0); NEUTROPHILS # 4.9 10^3/uL (1.5-8.5); NEUTROPHILS % 65.6 % (36.0-66.0); PLATELET COUNT, AUTOMATED 161 10^3/uL (150-450); RED BLOOD COUNT 4.81 10^6/uL (4.30-6.10); WHITE BLOOD COUNT 7.5 10^3/uL (4.0-10.0)
[2022-03-25 18:13] LABS: ALBUMIN 3.4 GM/DL (3.2-5.2); BILIRUBIN,DIRECT 0.2 MG/DL (0.0-0.2); BILIRUBIN,TOTAL 0.7 MG/DL (0.2-1.0); CALCIUM LEVEL 8.8 MG/DL (8.5-10.1); CREATININE FOR GFR 1.5 MG/DL (0.70-1.30); GLOMERULAR FILTRATION RATE 52.3 (>56); POTASSIUM SERUM 4.2 MEQ/L (3.5-5.1); TOTAL PROTEIN 6.7 GM/DL (6.4-8.2)
[2022-03-25] MEDS ORDERED: ACETAMINOPHEN 500 MG TAB PO ONE (18:30)
== END 2022-03-25 18:59 | disposition home or self-care (01) ==
LOC: M ED 16:44
DX: R10.9 Unspecified abdominal pain (principal); R06.02 Shortness of breath; E11.65 Type 2 diabetes mellitus with hyperglycemia; I10 Essential (primary) hypertension; I48.91 Unspecified atrial fibrillation; N28.9 Disorder of kidney and ureter, unspecified; F99 Mental disorder, not otherwise specified; Z79.899 Other long term (current) drug therapy; Z79.4 Long term (current) use of insulin

== ENCOUNTER 2022-03-27 23:08 | Emergency (ER) | payer MEDICARE, MEDICAID ==
[~2022-03-27] VITALS: Ht 172.7 cm; Wt 73.7 kg
[2022-03-28] MEDS ORDERED: NS 1,000 ML IV ONE (01:35)
[2022-03-28 01:38] LABS: BASO % 0.4 % (0.0-1.0); EOS # 0.2 10^3/uL (0.0-0.5); EOS % 2.1 % (0.0-3.0); HEMATOCRIT 42.7 % (42.0-52.0); HEMOGLOBIN 15.3 g/dl (13.5-17.5); LYMPH % 25.3 % (24.0-44.0); MEAN CORPUSCULAR HEMOGLOBIN 31.9 pg (27.0-33.0); MEAN CORPUSCULAR HGB CONC 35.8 g/dl (32.0-36.5); MONO # 0.6 10^3/uL (0.0-0.8); MONO % 8.2 % (2.0-8.0); NEUTROPHILS # 4.9 10^3/uL (1.5-8.5); NEUTROPHILS % 63.6 % (36.0-66.0); PLATELET COUNT, AUTOMATED 190 10^3/uL (150-450); WHITE BLOOD COUNT 7.7 10^3/uL (4.0-10.0)
[2022-03-28] MEDS ORDERED: HumuLIN R (REGULAR) INSULIN (NovoLIN R) **100U/ML** PER UNIT IV ONE (01:40)
[2022-03-28 02:02] LABS: VENOUS BASE EXCESS -2.4 (-2.0-2.0); VENOUS HCO3 22.9 MEQ/L (23.0-27.0); VENOUS O2 SATURATION 89.5 % (60.0-80.0); VENOUS PARTIAL PRESSURE O2 59.2 mmHg (30.0-50.0); VENOUS PH 7.364 UNITS (7.330-7.430); VENOUS STANDARD HCO3 22.3 MEQ/L; VENOUS TOTAL CO2 24.1 MEQ/L (24.0-28.0)
[2022-03-28 02:07] LABS: CK-MB VALUE MASS 3.9 NG/ML (<3.6); MB/CK RELATIVE INDEX 1.84 (< OR =4)
[2022-03-28 02:16] LABS: ACETONE/KETONE 2.83 MG/DL (<2.81)
[2022-03-28 02:25] LABS: OSMOLALITY SERUM 305 MOSM/KG (275-295)
[2022-03-28 02:32] LABS: CK-MB VALUE MASS 3.6 NG/ML (<3.6); MB/CK RELATIVE INDEX 1.94 (< OR =4)
[2022-03-28 03:13] LABS: BLOOD UREA NITROGEN 20 MG/DL (7-18); CALCIUM LEVEL 8.8 MG/DL (8.5-10.1); CARBON DIOXIDE LEVEL 23 MEQ/L (21-32); CHLORIDE LEVEL 106 MEQ/L (98-107); CREATININE FOR GFR 1.31 MG/DL (0.70-1.30); GLOMERULAR FILTRATION RATE > 60.0 (>56); GLUCOSE, FASTING 421 MG/DL (70-100); POTASSIUM SERUM 4.1 MEQ/L (3.5-5.1); SODIUM LEVEL 138 MEQ/L (136-145)
[2022-03-28 03:58] VITALS: BP 113/78
[2022-03-29] MEDS ORDERED: BACTDSTA (14:21)
== END 2022-03-28 04:00 | disposition home or self-care (01) ==
LOC: M ED 23:08
DX: R07.89 Other chest pain (principal); E86.0 Dehydration; E11.65 Type 2 diabetes mellitus with hyperglycemia; I10 Essential (primary) hypertension; N28.9 Disorder of kidney and ureter, unspecified; I48.91 Unspecified atrial fibrillation; G89.29 Other chronic pain; M54.9 Dorsalgia, unspecified; R16.1 Splenomegaly, not elsewhere classified; Z79.899 Other long term (current) drug therapy; Z79.4 Long term (current) use of insulin
CPT/HCPCS: 80047; 80048; 82010; 82550; 82553; 82803; 83930; 84484; 85025; 93005; 93041; 96361; 96374; 99284; J1815

== ENCOUNTER 2022-03-30 17:47 | Emergency (ER) | payer MEDICARE, MEDICAID ==
[~2022-03-30] VITALS: Ht 172.7 cm; Wt 75.0 kg
[~2022-03-30 17:47] MED LIST changes: +BACTDSTA
[2022-03-30 21:20] LABS: BASO % 0.4 % (0.0-1.0); EOS # 0.2 10^3/uL (0.0-0.5); EOS % 2.1 % (0.0-3.0); HEMATOCRIT 43.7 % (42.0-52.0); HEMOGLOBIN 15.5 g/dl (13.5-17.5); LYMPH # 2.6 10^3/uL (1.5-5.0); LYMPH % 30.1 % (24.0-44.0); MEAN CORPUSCULAR HEMOGLOBIN 31.6 pg (27.0-33.0); MEAN CORPUSCULAR HGB CONC 35.5 g/dl (32.0-36.5); MONO # 0.7 10^3/uL (0.0-0.8); MONO % 8.4 % (2.0-8.0); NEUTROPHILS % 58.4 % (36.0-66.0); PLATELET COUNT, AUTOMATED 202 10^3/uL (150-450); RED BLOOD COUNT 4.91 10^6/uL (4.30-6.10); WHITE BLOOD COUNT 8.6 10^3/uL (4.0-10.0)
[2022-03-30 21:47] LABS: AMPHETAMINES LEVEL URINE NEGATIVE (NEGATIVE); BARBITURATES URINE NEGATIVE (NEGATIVE); BENZODIAZEPINES URINE NEGATIVE (NEGATIVE); CANNABINOIDS URINE NEGATIVE (NEGATIVE); COCAINE METABOLITE URINE NEGATIVE (NEGATIVE); METHADONE URINE NEGATIVE (NEGATIVE); OPIATES URINE NEGATIVE (NEGATIVE); PHENCYCLIDINE URINE NEGATIVE (NEGATIVE)
[2022-03-30 21:50] LABS: CK-MB VALUE MASS 2.6 NG/ML (<3.6); MB/CK RELATIVE INDEX 2.6 (< OR =4)
[2022-03-30 22:08] LABS: BLOOD UREA NITROGEN 26 MG/DL (7-18); CALCIUM LEVEL 9.5 MG/DL (8.5-10.1); CARBON DIOXIDE LEVEL 27 MEQ/L (21-32); CHLORIDE LEVEL 106 MEQ/L (98-107); CREATININE FOR GFR 1.23 MG/DL (0.70-1.30); ETHYL ALCOHOL (ETHANOL) < 0.003 % (0.000-0.010); GLOMERULAR FILTRATION RATE > 60.0 (>56); GLUCOSE, FASTING 350 MG/DL (70-100); POTASSIUM SERUM 4.2 MEQ/L (3.5-5.1); SODIUM LEVEL 140 MEQ/L (136-145); THYROID STIMULATING HORMONE 0.888 uIU/ML (0.358-3.740)
[2022-03-30 22:53] LABS: CK-MB VALUE MASS 2.7 NG/ML (<3.6); MB/CK RELATIVE INDEX 2.43 (< OR =4)
[2022-03-30 23:00] VITALS: BP 155/85
[2022-04-01] MEDS ORDERED: BACT800T5 PO (10:54)
== END 2022-03-31 02:24 | disposition home or self-care (01) ==
LOC: EDBD 17:47 → M ED 17:47
DX: R55 Syncope and collapse (principal); I25.10 Atherosclerotic heart disease of native coronary artery without angina pectoris; F33.9 Major depressive disorder, recurrent, unspecified; N40.0 Benign prostatic hyperplasia without lower urinary tract symptoms; Z96.0 Presence of urogenital implants; Z79.899 Other long term (current) drug therapy; Z79.4 Long term (current) use of insulin

== ENCOUNTER 2022-04-01 07:29 | Emergency (ER) | payer MEDICARE, MEDICAID ==
[~2022-04-01] VITALS: Ht 172.7 cm; Wt 71.8 kg
[2022-04-01] MEDS ORDERED: BACT800T5 PO (10:54)
[2022-04-01 11:07] VITALS: BP 132/77
== END 2022-04-01 11:19 | disposition home or self-care (01) ==
LOC: M ED 07:29
DX: N39.0 Urinary tract infection, site not specified (principal); N40.1 Benign prostatic hyperplasia with lower urinary tract symptoms; R33.9 Retention of urine, unspecified; E11.9 Type 2 diabetes mellitus without complications; I10 Essential (primary) hypertension; E78.5 Hyperlipidemia, unspecified; R16.1 Splenomegaly, not elsewhere classified; F41.9 Anxiety disorder, unspecified; F32.A Depression, unspecified; Z79.4 Long term (current) use of insulin; Z79.899 Other long term (current) drug therapy

== ENCOUNTER 2022-04-03 05:33 | Emergency (ER) | payer MEDICARE, MEDICAID ==
[~2022-04-03] VITALS: Ht 172.7 cm; Wt 75.0 kg
[2022-04-03] MEDS ORDERED: LIDOCAINE 5% (LIDODERM) PATCH TD ONE (07:15)
[2022-04-03] MEDS ORDERED: KETOROLAC 60MG 2ML VIAL IM ONE (07:15)
[2022-04-03] MEDS ORDERED: diazePAM 5MG TABLET PO ONE (07:15)
[2022-04-03 08:15] VITALS: BP 142/80
[2022-04-03] MEDS ORDERED: NAPR-837 PO (08:41)
[2022-04-03] MEDS ORDERED: ASPE4PAD TOP (08:41)
[2022-04-03] MEDS ORDERED: **NOTE PATIENT COMMENT** MISC XX ONE (20:00)
== END 2022-04-03 08:58 | disposition home or self-care (01) ==
LOC: M ED 05:33
DX: M54.9 Dorsalgia, unspecified (principal); I10 Essential (primary) hypertension; E78.5 Hyperlipidemia, unspecified; I48.91 Unspecified atrial fibrillation; Z79.4 Long term (current) use of insulin
CPT/HCPCS: 87088; 96372; 99283; J1885

== ENCOUNTER 2022-04-03 21:42 | Emergency (ER) | payer MEDICARE, MEDICAID ==
[~2022-04-03 21:42] MED LIST changes: +ASPE4PAD TOP; +NAPR-837 PO
[2022-04-03 23:50] LABS: BASO % 0.4 % (0.0-1.0); EOS % 2.3 % (0.0-3.0); HEMATOCRIT 44.6 % (42.0-52.0); HEMOGLOBIN 15.8 g/dl (13.5-17.5); LYMPH # 2.2 10^3/uL (1.5-5.0); MEAN CORPUSCULAR HEMOGLOBIN 31.5 pg (27.0-33.0); MEAN CORPUSCULAR HGB CONC 35.4 g/dl (32.0-36.5); MEAN CORPUSCULAR VOLUME 88.8 fl (80.0-96.0); MONO # 0.6 10^3/uL (0.0-0.8); MONO % 9.1 % (2.0-8.0); NEUTROPHILS % 56.6 % (36.0-66.0); PLATELET COUNT, AUTOMATED 179 10^3/uL (150-450); RED BLOOD COUNT 5.02 10^6/uL (4.30-6.10)
[2022-04-03 23:51] LABS: EOS # 0.2 10^3/uL (0.0-0.5)
[2022-04-04 00:16] LABS: CK-MB VALUE MASS 3.3 NG/ML (<3.6); MB/CK RELATIVE INDEX 3.11 (< OR =4)
[2022-04-04 00:25] LABS: ALBUMIN 3.7 GM/DL (3.2-5.2); BILIRUBIN,DIRECT 0.2 MG/DL (0.0-0.2); BILIRUBIN,TOTAL 0.6 MG/DL (0.2-1.0); CREATININE FOR GFR 1.4 MG/DL (0.70-1.30); FREE T4 0.97 NG/DL (0.76-1.46); GLOMERULAR FILTRATION RATE 56.7 (>56); POTASSIUM SERUM 3.8 MEQ/L (3.5-5.1); THYROID STIMULATING HORMONE 1.16 uIU/ML (0.358-3.740); TOTAL PROTEIN 7.1 GM/DL (6.4-8.2)
[2022-04-04 00:45] VITALS: BP 156/90
== END 2022-04-04 01:22 | disposition home or self-care (01) ==
LOC: M ED 21:42
DX: R07.89 Other chest pain (principal); R00.1 Bradycardia, unspecified; E11.9 Type 2 diabetes mellitus without complications; I48.91 Unspecified atrial fibrillation; I10 Essential (primary) hypertension; E78.5 Hyperlipidemia, unspecified; N18.9 Chronic kidney disease, unspecified; M54.9 Dorsalgia, unspecified; Z79.4 Long term (current) use of insulin; Z79.899 Other long term (current) drug therapy
CPT/HCPCS: 36415; 51702; 71045; 71046; 80048; 80076; 82550; 82553; 83690; 83880; 84439; 84443; 84484; 85025; 87088; 87186; 93005; 93041; 94760; 96372; 99281; 99283; 99285; J1885

== ENCOUNTER 2022-04-04 10:03 | Emergency (ER) | payer MEDICARE, MEDICAID ==
[~2022-04-04] VITALS: Ht 172.7 cm; Wt 75.0 kg
[2022-04-04 10:03] VITALS: BP 157/100
== END 2022-04-04 11:01 | disposition left against medical advice (07) ==
LOC: M ED 10:03
DX: Z53.21 Procedure and treatment not carried out due to patient leaving prior to being seen by health care provider (principal)

== ENCOUNTER 2022-04-04 15:01 | Emergency (ER) | payer MEDICARE, MEDICAID ==
[~2022-04-04] VITALS: Ht 172.7 cm; Wt 75.0 kg
[2022-04-04 15:32] LABS: BASO % 0.4 % (0.0-1.0); EOS # 0.2 10^3/uL (0.0-0.5); EOS % 2.2 % (0.0-3.0); HEMATOCRIT 44.6 % (42.0-52.0); HEMOGLOBIN 15.6 g/dl (13.5-17.5); LYMPH # 1.7 10^3/uL (1.5-5.0); MEAN CORPUSCULAR HEMOGLOBIN 30.8 pg (27.0-33.0); MEAN CORPUSCULAR VOLUME 88.1 fl (80.0-96.0); MONO # 0.6 10^3/uL (0.0-0.8); MONO % 7.3 % (2.0-8.0); NEUTROPHILS # 5.7 10^3/uL (1.5-8.5); NEUTROPHILS % 68.6 % (36.0-66.0); PLATELET COUNT, AUTOMATED 189 10^3/uL (150-450); RED BLOOD COUNT 5.06 10^6/uL (4.30-6.10); WHITE BLOOD COUNT 8.2 10^3/uL (4.0-10.0)
[2022-04-04 16:06] LABS: CK-MB VALUE MASS 4.1 NG/ML (<3.6); MB/CK RELATIVE INDEX 3.06 (< OR =4)
[2022-04-04 16:12] LABS: ALBUMIN 3.1 GM/DL (3.2-5.2); ALT/SGPT 26 U/L (12-78); BILIRUBIN,DIRECT 0.2 MG/DL (0.0-0.2); BILIRUBIN,TOTAL 0.5 MG/DL (0.2-1.0); BLOOD UREA NITROGEN 19 MG/DL (7-18); CALCIUM LEVEL 8.1 MG/DL (8.5-10.1); CARBON DIOXIDE LEVEL 24 MEQ/L (21-32); CHLORIDE LEVEL 112 MEQ/L (98-107); CREATININE FOR GFR 1.03 MG/DL (0.70-1.30); FREE T4 0.95 NG/DL (0.76-1.46); GLOMERULAR FILTRATION RATE > 60.0 (>56); GLUCOSE, FASTING 268 MG/DL (70-100); LIPASE 65 U/L (73-393); NT-PRO BNP 194 PG/ML (<125); POTASSIUM SERUM 4.1 MEQ/L (3.5-5.1); SODIUM LEVEL 142 MEQ/L (136-145); TOTAL PROTEIN 6.2 GM/DL (6.4-8.2)
[2022-04-04 17:08] LABS: CK-MB VALUE MASS 3.9 NG/ML (<3.6); MB/CK RELATIVE INDEX 3.28 (< OR =4)
[2022-04-04] MEDS ORDERED: LIDOCAINE 2% 5ML JELLY UROJET TOP ONE (18:20)
[2022-04-04 19:01] VITALS: BP 112/61
== END 2022-04-04 19:35 | disposition home or self-care (01) ==
LOC: EDBD 15:01 → M ED 15:01
DX: R07.9 Chest pain, unspecified (principal); T83.098A Other mechanical complication of other urinary catheter, initial encounter; I10 Essential (primary) hypertension; E78.5 Hyperlipidemia, unspecified; F31.9 Bipolar disorder, unspecified; F43.10 Post-traumatic stress disorder, unspecified; Z87.19 Personal history of other diseases of the digestive system; Z79.899 Other long term (current) drug therapy; Z79.4 Long term (current) use of insulin

== ENCOUNTER 2022-04-06 04:26 | Emergency (ER) | payer MEDICARE, MEDICAID ==
[2022-04-06 05:18] LABS: BASO % 0.3 % (0.0-1.0); EOS # 0.2 10^3/uL (0.0-0.5); EOS % 2.9 % (0.0-3.0); HEMATOCRIT 42.8 % (42.0-52.0); HEMOGLOBIN 15.1 g/dl (13.5-17.5); LYMPH # 2.3 10^3/uL (1.5-5.0); LYMPH % 31.8 % (24.0-44.0); MEAN CORPUSCULAR HEMOGLOBIN 31.1 pg (27.0-33.0); MEAN CORPUSCULAR HGB CONC 35.3 g/dl (32.0-36.5); MEAN CORPUSCULAR VOLUME 88.1 fl (80.0-96.0); MONO # 0.6 10^3/uL (0.0-0.8); MONO % 7.9 % (2.0-8.0); NEUTROPHILS # 4.1 10^3/uL (1.5-8.5); NEUTROPHILS % 56.4 % (36.0-66.0); PLATELET COUNT, AUTOMATED 164 10^3/uL (150-450); RED BLOOD COUNT 4.86 10^6/uL (4.30-6.10); WHITE BLOOD COUNT 7.3 10^3/uL (4.0-10.0)
[2022-04-06 05:42] LABS: INR 0.99; PROTHROMBIN TIME 13.5 SECONDS (12.7-14.5)
[2022-04-06 05:43] LABS: PARTIAL THROMBOPLASTIN TIME 27.6 SECONDS (25.9-37.0)
[2022-04-06 05:52] LABS: ALBUMIN 3.1 GM/DL (3.2-5.2); ALT/SGPT 20 U/L (12-78); BILIRUBIN,TOTAL 0.6 MG/DL (0.2-1.0); BLOOD UREA NITROGEN 17 MG/DL (7-18); CALCIUM LEVEL 8.6 MG/DL (8.5-10.1); CARBON DIOXIDE LEVEL 22 MEQ/L (21-32); CHLORIDE LEVEL 107 MEQ/L (98-107); CREATININE FOR GFR 1.19 MG/DL (0.70-1.30); GLOMERULAR FILTRATION RATE > 60.0 (>56); GLUCOSE, FASTING 363 MG/DL (70-100); POTASSIUM SERUM 4.1 MEQ/L (3.5-5.1); SODIUM LEVEL 139 MEQ/L (136-145); TOTAL PROTEIN 6.7 GM/DL (6.4-8.2)
[2022-04-06 05:53] LABS: CK-MB VALUE MASS 3.6 NG/ML (<3.6); MB/CK RELATIVE INDEX 3.6 (< OR =4)
[2022-04-06] MEDS ORDERED: NS 1,000 ML IV ONE (07:20)
[2022-04-06 08:23] LABS: BASO % 0.4 % (0.0-1.0); EOS # 0.2 10^3/uL (0.0-0.5); EOS % 1.9 % (0.0-3.0); HEMATOCRIT 43.7 % (42.0-52.0); HEMOGLOBIN 15.5 g/dl (13.5-17.5); LYMPH % 23.3 % (24.0-44.0); MEAN CORPUSCULAR HEMOGLOBIN 31.4 pg (27.0-33.0); MEAN CORPUSCULAR HGB CONC 35.5 g/dl (32.0-36.5); MEAN CORPUSCULAR VOLUME 88.5 fl (80.0-96.0); MONO # 0.6 10^3/uL (0.0-0.8); MONO % 7.4 % (2.0-8.0); NEUTROPHILS # 5.6 10^3/uL (1.5-8.5); NEUTROPHILS % 66.2 % (36.0-66.0); PLATELET COUNT, AUTOMATED 175 10^3/uL (150-450); RED BLOOD COUNT 4.94 10^6/uL (4.30-6.10); WHITE BLOOD COUNT 8.5 10^3/uL (4.0-10.0)
[2022-04-06 08:58] LABS: OSMOLALITY SERUM 296 MOSM/KG (275-295)
[2022-04-06 09:01] LABS: CK-MB VALUE MASS 3.6 NG/ML (<3.6); MB/CK RELATIVE INDEX 4.19 (< OR =4)
[2022-04-06 09:05] LABS: ALBUMIN 3.3 GM/DL (3.2-5.2); ALT/SGPT 23 U/L (12-78); BILIRUBIN,DIRECT 0.2 MG/DL (0.0-0.2); BILIRUBIN,TOTAL 0.7 MG/DL (0.2-1.0); BLOOD UREA NITROGEN 17 MG/DL (7-18); CARBON DIOXIDE LEVEL 23 MEQ/L (21-32); CHLORIDE LEVEL 107 MEQ/L (98-107); CREATININE FOR GFR 1.15 MG/DL (0.70-1.30); GLOMERULAR FILTRATION RATE > 60.0 (>56); GLUCOSE, FASTING 339 MG/DL (70-100); MAGNESIUM LEVEL 2.2 MG/DL (1.8-2.4); POTASSIUM SERUM 4.5 MEQ/L (3.5-5.1); SODIUM LEVEL 139 MEQ/L (136-145)
[2022-04-06 09:15] VITALS: BP 145/72
[2022-04-06] MEDS ORDERED: SERT50TA29 PO (09:38)
[2022-04-06] MEDS ORDERED: HYDR50TA70 PO (09:38)
== END 2022-04-06 09:30 | disposition left against medical advice (07) ==
LOC: EDBD 04:26 → M ED 04:26
DX: R73.9 Hyperglycemia, unspecified (principal); I10 Essential (primary) hypertension; E78.5 Hyperlipidemia, unspecified; F43.10 Post-traumatic stress disorder, unspecified; N40.1 Benign prostatic hyperplasia with lower urinary tract symptoms; R33.9 Retention of urine, unspecified; Z96.0 Presence of urogenital implants; Z79.899 Other long term (current) drug therapy; Z79.4 Long term (current) use of insulin; Z53.29 Procedure and treatment not carried out because of patient's decision for other reasons

== ENCOUNTER 2022-04-06 20:15 | Emergency (ER) | payer MEDICARE, MEDICAID ==
[~2022-04-06] VITALS: Ht 172.7 cm; Wt 75.0 kg
[2022-04-06 20:16] VITALS: BP 136/94
== END 2022-04-07 02:44 | disposition left against medical advice (07) ==
LOC: M ED 20:15
DX: Z53.29 Procedure and treatment not carried out because of patient's decision for other reasons (principal)

== ENCOUNTER 2022-04-08 04:20 | Emergency (ER) | payer MEDICARE, MEDICAID ==
[~2022-04-08] VITALS: Ht 172.7 cm; Wt 74.1 kg
[2022-04-08 04:21] VITALS: BP 143/75
== END 2022-04-08 05:28 | disposition left against medical advice (07) ==
LOC: M ED 04:20
DX: Z53.29 Procedure and treatment not carried out because of patient's decision for other reasons (principal)

== ENCOUNTER 2022-04-08 16:21 | Emergency (ER) | payer MEDICARE, MEDICAID ==
[~2022-04-08] VITALS: Ht 172.7 cm; Wt 73.7 kg
[2022-04-08] MEDS ORDERED: LIDOCAINE 5% (LIDODERM) PATCH TD ONE (17:20)
[2022-04-08] MEDS ORDERED: ACETAMINOPHEN 500 MG TAB PO ONE (17:20)
[2022-04-08 18:31] VITALS: BP 114/67
[2022-04-08] MEDS ORDERED: **NOTE PATIENT COMMENT** MISC XX SCH (21:00)
== END 2022-04-08 18:32 | disposition home or self-care (01) ==
LOC: M ED 16:21
DX: M54.50 Low back pain, unspecified (principal); E11.9 Type 2 diabetes mellitus without complications; I10 Essential (primary) hypertension; E78.5 Hyperlipidemia, unspecified; F31.9 Bipolar disorder, unspecified; F33.9 Major depressive disorder, recurrent, unspecified; F41.9 Anxiety disorder, unspecified; Z79.899 Other long term (current) drug therapy; Z79.4 Long term (current) use of insulin

== ENCOUNTER 2022-04-11 16:11 | Emergency (ER) | payer MEDICARE, MEDICAID ==
[~2022-04-11] VITALS: Ht 172.7 cm; Wt 75.0 kg
[2022-04-11 16:11] VITALS: BP 121/85
[2022-04-11] MEDS ORDERED: NAPR-885 (17:18)
== END 2022-04-11 19:58 | disposition left against medical advice (07) ==
LOC: M ED 16:11
DX: Z53.29 Procedure and treatment not carried out because of patient's decision for other reasons (principal)

== ENCOUNTER 2022-04-13 17:06 | Emergency (ER) | payer MEDICARE, MEDICAID ==
[~2022-04-13] VITALS: Ht 172.7 cm; Wt 75.0 kg
[~2022-04-13 17:06] MED LIST changes: +NAPR-885
[2022-04-13 18:12] LABS: BASO % 0.3 % (0.0-1.0); EOS # 0.2 10^3/uL (0.0-0.5); EOS % 2.8 % (0.0-3.0); HEMATOCRIT 42.9 % (42.0-52.0); HEMOGLOBIN 14.8 g/dl (13.5-17.5); LYMPH # 1.9 10^3/uL (1.5-5.0); LYMPH % 28.6 % (24.0-44.0); MEAN CORPUSCULAR HEMOGLOBIN 30.5 pg (27.0-33.0); MEAN CORPUSCULAR HGB CONC 34.5 g/dl (32.0-36.5); MEAN CORPUSCULAR VOLUME 88.5 fl (80.0-96.0); MONO # 0.6 10^3/uL (0.0-0.8); MONO % 9.5 % (2.0-8.0); NEUTROPHILS # 3.8 10^3/uL (1.5-8.5); NEUTROPHILS % 58.5 % (36.0-66.0); PLATELET COUNT, AUTOMATED 186 10^3/uL (150-450); RED BLOOD COUNT 4.85 10^6/uL (4.30-6.10); WHITE BLOOD COUNT 6.5 10^3/uL (4.0-10.0)
[2022-04-13 18:33] LABS: CK-MB VALUE MASS 4.9 NG/ML (<3.6); MB/CK RELATIVE INDEX 4.05 (< OR =4)
[2022-04-13 18:50] LABS: ALBUMIN 3.5 GM/DL (3.2-5.2); BILIRUBIN,DIRECT 0.2 MG/DL (0.0-0.2); BILIRUBIN,TOTAL 0.7 MG/DL (0.2-1.0); CALCIUM LEVEL 8.5 MG/DL (8.5-10.1); CREATININE FOR GFR 1.44 MG/DL (0.70-1.30); FREE T4 0.92 NG/DL (0.76-1.46); GLOMERULAR FILTRATION RATE 54.8 (>56); THYROID STIMULATING HORMONE 0.9 uIU/ML (0.358-3.740); TOTAL PROTEIN 6.8 GM/DL (6.4-8.2)
[2022-04-13] MEDS ORDERED: NS 1,000 ML IV ONE (19:05)
[2022-04-13] MEDS ORDERED: ASPIRIN 81 MG CHEW TABLET PO ONE (19:30)
[2022-04-13 19:41] LABS: CK-MB VALUE MASS 4.8 NG/ML (<3.6); MB/CK RELATIVE INDEX 4.57 (< OR =4)
[2022-04-13 21:00] VITALS: BP 168/93
[2022-04-14] MEDS ORDERED: CIPR-249 PO (15:04)
== END 2022-04-13 21:10 | disposition home or self-care (01) ==
LOC: M ED 17:06
DX: R07.9 Chest pain, unspecified (principal); I48.91 Unspecified atrial fibrillation; E11.9 Type 2 diabetes mellitus without complications; I10 Essential (primary) hypertension; E78.5 Hyperlipidemia, unspecified; F31.89 Other bipolar disorder; F43.10 Post-traumatic stress disorder, unspecified

== ENCOUNTER 2022-04-14 11:14 | Emergency (ER) | payer MEDICARE, MEDICAID ==
[~2022-04-14] VITALS: Ht 172.7 cm; Wt 73.1 kg
[2022-04-14 11:30] VITALS: BP 127/66
[2022-04-14 12:27] LABS: BASO % 0.3 % (0.0-1.0); EOS # 0.2 10^3/uL (0.0-0.5); EOS % 2.5 % (0.0-3.0); HEMOGLOBIN 15.4 g/dl (13.5-17.5); LYMPH # 1.6 10^3/uL (1.5-5.0); LYMPH % 22.7 % (24.0-44.0); MEAN CORPUSCULAR HEMOGLOBIN 31.2 pg (27.0-33.0); MEAN CORPUSCULAR VOLUME 89.2 fl (80.0-96.0); MONO # 0.6 10^3/uL (0.0-0.8); MONO % 8.1 % (2.0-8.0); NEUTROPHILS # 4.8 10^3/uL (1.5-8.5); PLATELET COUNT, AUTOMATED 186 10^3/uL (150-450); RED BLOOD COUNT 4.93 10^6/uL (4.30-6.10); WHITE BLOOD COUNT 7.2 10^3/uL (4.0-10.0)
[2022-04-14 13:21] LABS: ALBUMIN 3.5 GM/DL (3.2-5.2); ALT/SGPT 24 U/L (12-78); BILIRUBIN,DIRECT < 0.1 MG/DL (0.0-0.2); BILIRUBIN,TOTAL 0.7 MG/DL (0.2-1.0); LIPASE 157 U/L (73-393); TOTAL PROTEIN 7.1 GM/DL (6.4-8.2)
[2022-04-14] MEDS ORDERED: CIPR-249 PO (15:04)
== END 2022-04-14 15:26 | disposition home or self-care (01) ==
LOC: M ED 11:14 → EDBD 11:14 → M ED 15:26
DX: N39.0 Urinary tract infection, site not specified (principal); Z96.0 Presence of urogenital implants; Z79.4 Long term (current) use of insulin

== ENCOUNTER 2022-04-17 11:42 | Emergency (ER) | payer MEDICARE, MEDICAID ==
[~2022-04-17] VITALS: Ht 172.7 cm; Wt 74.8 kg
[2022-04-17 11:43] VITALS: BP 132/84
== END 2022-04-17 14:02 | disposition home or self-care (01) ==
LOC: M ED 11:42
DX: R20.2 Paresthesia of skin (principal); E11.9 Type 2 diabetes mellitus without complications; I10 Essential (primary) hypertension; E78.5 Hyperlipidemia, unspecified; K21.9 Gastro-esophageal reflux disease without esophagitis; Z96.0 Presence of urogenital implants; Z79.899 Other long term (current) drug therapy; Z79.4 Long term (current) use of insulin

== ENCOUNTER 2022-04-18 23:43 | Emergency (ER) | payer MEDICARE, MEDICAID ==
[~2022-04-18] VITALS: Ht 172.7 cm; Wt 75.0 kg
[2022-04-19 00:06] VITALS: BP 151/94
== END 2022-04-19 03:00 | disposition left against medical advice (07) ==
LOC: EDBD 23:43 → EDUNIT# 23:43 → M ED 23:43
DX: Z53.29 Procedure and treatment not carried out because of patient's decision for other reasons (principal)

== ENCOUNTER 2022-04-21 22:59 | Emergency (ER) | payer MEDICARE, MEDICAID ==
[~2022-04-21] VITALS: Ht 172.7 cm; Wt 75.0 kg
[2022-04-21 22:59] VITALS: BP 134/69
== END 2022-04-22 00:20 | disposition left against medical advice (07) ==
LOC: M ED 22:59
DX: Z53.29 Procedure and treatment not carried out because of patient's decision for other reasons (principal)

== ENCOUNTER 2022-04-24 02:53 | Emergency (ER) | payer MEDICARE, MEDICAID ==
[~2022-04-24] VITALS: Ht 172.7 cm; Wt 74.3 kg
[2022-04-24 02:55] VITALS: BP 134/87
[2022-04-24] MEDS ORDERED: ASPI81TA26 PO (03:02)
== END 2022-04-24 05:29 | disposition left against medical advice (07) ==
LOC: M ED 02:53
DX: Z53.21 Procedure and treatment not carried out due to patient leaving prior to being seen by health care provider (principal)

== ENCOUNTER → 2022-04-28 | Outpatient (CLI) | payer MEDICARE, MEDICAID | LOC: M RAD 09:17 → M LAB 09:17 | PROVIDERS: ATTEND Family Medicine Addiction Medicine | DX: Z01.810 Encounter for preprocedural cardiovascular examination (principal) ==

== ENCOUNTER 2022-04-30 05:56 | Emergency (ER) | payer MEDICARE, MEDICAID ==
[~2022-04-30] VITALS: Ht 172.7 cm; Wt 74.3 kg
[2022-04-30 06:25] LABS: BASO % 0.5 % (0.0-1.0); EOS # 0.2 10^3/uL (0.0-0.5); EOS % 3.2 % (0.0-3.0); HEMATOCRIT 43.5 % (42.0-52.0); HEMOGLOBIN 15.1 g/dl (13.5-17.5); LYMPH # 1.6 10^3/uL (1.5-5.0); LYMPH % 25.2 % (24.0-44.0); MEAN CORPUSCULAR HEMOGLOBIN 31.5 pg (27.0-33.0); MEAN CORPUSCULAR HGB CONC 34.7 g/dl (32.0-36.5); MEAN CORPUSCULAR VOLUME 90.6 fl (80.0-96.0); MONO # 0.6 10^3/uL (0.0-0.8); MONO % 8.6 % (2.0-8.0); NEUTROPHILS % 61.9 % (36.0-66.0); PLATELET COUNT, AUTOMATED 163 10^3/uL (150-450); WHITE BLOOD COUNT 6.5 10^3/uL (4.0-10.0)
[2022-04-30 06:40] LABS: ABG BASE EXCESS -2.4 (-2.0-2.0); ABG O2 SATURATION 96.6 % (95.0-99.0); ABG PARTIAL PRESSURE CO2 41.6 mmHg (35.0-45.0); ABG PARTIAL PRESSURE O2 86.2 mmHg (75.0-100.0); ABG STANDARD HCO3 22.5 MEQ/L (22.0-26.0); ABG TOTAL CO2 24.3 MEQ/L (22.0-29.0)
[2022-04-30] MEDS ORDERED: NS 1,000 ML IV ONE ×2 (06:45→09:00)
[2022-04-30 06:50] LABS: MB/CK RELATIVE INDEX 3.31 (< OR =4)
[2022-04-30 07:01] LABS: OSMOLALITY SERUM 312 MOSM/KG (275-295)
[2022-04-30 07:17] LABS: ALBUMIN 3.2 GM/DL (3.2-5.2); ALT/SGPT 24 U/L (12-78); BILIRUBIN,DIRECT 0.1 MG/DL (0.0-0.2); BILIRUBIN,TOTAL 0.5 MG/DL (0.2-1.0); BLOOD UREA NITROGEN 16 MG/DL (7-18); CALCIUM LEVEL 8.7 MG/DL (8.5-10.1); CARBON DIOXIDE LEVEL 23 MEQ/L (21-32); CHLORIDE LEVEL 107 MEQ/L (98-107); CREATININE FOR GFR 1.32 MG/DL (0.70-1.30); GLOMERULAR FILTRATION RATE > 60.0 (>56); GLUCOSE, FASTING 499 MG/DL (70-100); LIPASE 60 U/L (73-393); MAGNESIUM LEVEL 2.2 MG/DL (1.8-2.4); POTASSIUM SERUM 4.2 MEQ/L (3.5-5.1); SODIUM LEVEL 139 MEQ/L (136-145); TOTAL PROTEIN 6.6 GM/DL (6.4-8.2)
[2022-04-30 07:44] LABS: CK-MB VALUE MASS 4.9 NG/ML (<3.6); MB/CK RELATIVE INDEX 4.05 (< OR =4)
[2022-04-30] MEDS ORDERED: INSULIN LISPRO (NovoLOG) PER UNIT SC STA (08:56)
[2022-04-30 10:15] VITALS: BP 164/79
[2022-04-30 10:47] LABS: ACETONE/KETONE 0.89 MG/DL (<2.81)
== END 2022-04-30 10:30 | disposition home or self-care (01) ==
LOC: M ED 05:56
DX: E11.9 Type 2 diabetes mellitus without complications (principal); I10 Essential (primary) hypertension; I48.91 Unspecified atrial fibrillation; F31.9 Bipolar disorder, unspecified; E78.5 Hyperlipidemia, unspecified; I25.10 Atherosclerotic heart disease of native coronary artery without angina pectoris; Z76.5 Malingerer [conscious simulation]; Z79.899 Other long term (current) drug therapy; Z79.82 Long term (current) use of aspirin; Z79.4 Long term (current) use of insulin
CPT/HCPCS: 36600; 80047; 80048; 80076; 82010; 82550; 82553; 82803; 83605; 83690; 83735; 83930; 84484; 85025; 93005; 93041; 96360; 96361; 99285; J1815

== ENCOUNTER → 2022-05-01 | Outpatient (CLI) | payer MEDICARE, MEDICAID ==
[2022-05-01 08:35] LABS: HEMATOCRIT 46.7 % (42.0-52.0); HEMOGLOBIN 16.2 g/dl (13.5-17.5); MEAN CORPUSCULAR HEMOGLOBIN 30.9 pg (27.0-33.0); MEAN CORPUSCULAR HGB CONC 34.7 g/dl (32.0-36.5); MEAN CORPUSCULAR VOLUME 89.1 fl (80.0-96.0); PLATELET COUNT, AUTOMATED 164 10^3/uL (150-450); RED BLOOD COUNT 5.24 10^6/uL (4.30-6.10); WHITE BLOOD COUNT 6.8 10^3/uL (4.0-10.0)
[2022-05-01 08:45] LABS: INR 0.94
[2022-05-01 09:07] LABS: ALBUMIN 3.6 GM/DL (3.2-5.2); ALT/SGPT 25 U/L (12-78); BILIRUBIN,TOTAL 0.6 MG/DL (0.2-1.0); BLOOD UREA NITROGEN 17 MG/DL (7-18); CALCIUM LEVEL 9.7 MG/DL (8.5-10.1); CARBON DIOXIDE LEVEL 27 MEQ/L (21-32); CHLORIDE LEVEL 106 MEQ/L (98-107); CREATININE FOR GFR 1.25 MG/DL (0.70-1.30); GLOMERULAR FILTRATION RATE > 60.0 (>56); GLUCOSE, FASTING 331 MG/DL (70-100); POTASSIUM SERUM 4.4 MEQ/L (3.5-5.1); SODIUM LEVEL 139 MEQ/L (136-145); TOTAL PROTEIN 7.2 GM/DL (6.4-8.2)
== END ==
LOC: M LAB 08:08
PROVIDERS: ATTEND Urology
DX: R97.20 Elevated prostate specific antigen [PSA] (principal)

== ENCOUNTER 2022-05-02 00:35 | Emergency (ER) | payer MEDICARE, MEDICAID ==
[~2022-05-02] VITALS: Ht 172.7 cm; Wt 75.0 kg
[2022-05-02 00:36] VITALS: BP 124/87
== END 2022-05-02 03:17 | disposition left against medical advice (07) ==
LOC: M ED 00:35
DX: Z53.21 Procedure and treatment not carried out due to patient leaving prior to being seen by health care provider (principal)

== ENCOUNTER 2022-05-03 20:06 | Emergency (ER) | payer MEDICARE, MEDICAID ==
[~2022-05-03] VITALS: Ht 172.7 cm; Wt 73.8 kg
[2022-05-03 20:08] VITALS: BP 125/84
== END 2022-05-04 00:36 | disposition left against medical advice (07) ==
LOC: M ED 20:06
DX: Z53.29 Procedure and treatment not carried out because of patient's decision for other reasons (principal)

== ENCOUNTER 2022-05-05 04:05 | Emergency (ER) | payer MEDICARE, MEDICAID ==
[~2022-05-05] VITALS: Ht 172.7 cm; Wt 75.0 kg
[2022-05-05 07:31] LABS: BASO % 0.5 % (0.0-1.0); EOS # 0.2 10^3/uL (0.0-0.5); EOS % 2.8 % (0.0-3.0); HEMATOCRIT 46.7 % (42.0-52.0); HEMOGLOBIN 16.7 g/dl (13.5-17.5); LYMPH # 2.5 10^3/uL (1.5-5.0); LYMPH % 29.9 % (24.0-44.0); MEAN CORPUSCULAR HEMOGLOBIN 31.7 pg (27.0-33.0); MEAN CORPUSCULAR HGB CONC 35.8 g/dl (32.0-36.5); MEAN CORPUSCULAR VOLUME 88.6 fl (80.0-96.0); MONO # 0.7 10^3/uL (0.0-0.8); MONO % 8.7 % (2.0-8.0); NEUTROPHILS # 4.7 10^3/uL (1.5-8.5); NEUTROPHILS % 57.6 % (36.0-66.0); PLATELET COUNT, AUTOMATED 171 10^3/uL (150-450); RED BLOOD COUNT 5.27 10^6/uL (4.30-6.10); WHITE BLOOD COUNT 8.2 10^3/uL (4.0-10.0)
[2022-05-05 07:50] LABS: CALCIUM LEVEL 9.6 MG/DL (8.5-10.1); CREATININE FOR GFR 1.4 MG/DL (0.70-1.30); GLOMERULAR FILTRATION RATE 56.7 (>56)
[2022-05-05] MEDS ORDERED: LEVEMIR (INSULIN DETEMIR) 1 UNITS/0.01ML SC ONE (09:00)
[2022-05-05 10:12] VITALS: BP 119/69
== END 2022-05-05 10:14 | disposition home or self-care (01) ==
LOC: M ED 04:05
DX: E11.65 Type 2 diabetes mellitus with hyperglycemia (principal); T83.098A Other mechanical complication of other urinary catheter, initial encounter; N50.89 Other specified disorders of the male genital organs; I10 Essential (primary) hypertension; F31.9 Bipolar disorder, unspecified; F43.10 Post-traumatic stress disorder, unspecified; I48.91 Unspecified atrial fibrillation; K21.9 Gastro-esophageal reflux disease without esophagitis; N40.0 Benign prostatic hyperplasia without lower urinary tract symptoms; R16.1 Splenomegaly, not elsewhere classified; Z79.899 Other long term (current) drug therapy; Z79.82 Long term (current) use of aspirin; Z79.4 Long term (current) use of insulin
CPT/HCPCS: 36415; 76870; 80048; 81001; 85025; 87088; 87186; 93976; 99283; J1815

== ENCOUNTER 2022-05-05 21:00 | Emergency (ER) | payer MEDICARE, MEDICAID ==
[~2022-05-05] VITALS: Ht 172.7 cm; Wt 75.0 kg
[2022-05-05 21:14] VITALS: BP 131/81
== END 2022-05-05 22:40 | disposition left against medical advice (07) ==
LOC: M ED 21:00
DX: Z53.29 Procedure and treatment not carried out because of patient's decision for other reasons (principal)

== ENCOUNTER 2022-05-06 07:55 | Emergency (ER) | payer MEDICARE, MEDICAID ==
[~2022-05-06] VITALS: Ht 172.7 cm; Wt 75.0 kg
[2022-05-06 11:15] VITALS: BP 129/66
== END 2022-05-06 11:26 | disposition home or self-care (01) ==
LOC: EDBD 07:55 → M ED 07:55
DX: Z76.5 Malingerer [conscious simulation] (principal); F31.9 Bipolar disorder, unspecified; G89.29 Other chronic pain; R10.9 Unspecified abdominal pain; E11.9 Type 2 diabetes mellitus without complications; I10 Essential (primary) hypertension; E78.5 Hyperlipidemia, unspecified; N40.0 Benign prostatic hyperplasia without lower urinary tract symptoms; F41.9 Anxiety disorder, unspecified; Z79.899 Other long term (current) drug therapy; Z79.82 Long term (current) use of aspirin; Z79.4 Long term (current) use of insulin

== ENCOUNTER 2022-05-08 15:13 | Emergency (ER) | payer MEDICARE, MEDICAID ==
[~2022-05-08] VITALS: Ht 172.7 cm; Wt 75.0 kg
[2022-05-08 15:13] VITALS: BP 134/74
== END 2022-05-08 17:35 | disposition left against medical advice (07) ==
LOC: M ED 15:13
DX: Z53.29 Procedure and treatment not carried out because of patient's decision for other reasons (principal)

== ENCOUNTER 2022-05-08 22:39 | Emergency (ER) | payer MEDICARE, MEDICAID ==
[~2022-05-08] VITALS: Ht 172.7 cm; Wt 74.6 kg
[2022-05-08 22:40] VITALS: BP 145/92
== END 2022-05-09 01:09 | disposition left against medical advice (07) ==
LOC: M ED 22:39
DX: Z53.29 Procedure and treatment not carried out because of patient's decision for other reasons (principal)

== ENCOUNTER 2022-05-14 16:28 | Emergency (ER) | payer MEDICARE, MEDICAID ==
[2022-05-14 16:35] VITALS: BP 143/86
[2022-05-14] MEDS ORDERED: GI COCKTAIL 50ML BTL(HYOSCYAMINE/MAALOX/LIDOCAINE VISCOUS)(1:3:1) PO ONE (17:40)
== END 2022-05-14 18:22 | disposition home or self-care (01) ==
LOC: M ED 16:28
DX: R07.0 Pain in throat (principal); R09.89 Other specified symptoms and signs involving the circulatory and respiratory systems

== ENCOUNTER → 2022-05-19 | Outpatient (REF) | payer MEDICARE, MEDICAID ==
[~2022-05-19] MED LIST changes: +LEVE1INJ5 SC
== END ==
LOC: M SMT 13:17
PROVIDERS: ATTEND Urology
DX: R33.9 Retention of urine, unspecified (principal)

== ENCOUNTER 2022-05-20 02:55 | Emergency (ER) | payer MEDICARE, MEDICAID ==
[~2022-05-20] VITALS: Ht 172.7 cm; Wt 74.9 kg
[2022-05-20 02:56] VITALS: BP 126/70
== END 2022-05-20 05:35 | disposition left against medical advice (07) ==
LOC: M ED 02:55
DX: Z53.29 Procedure and treatment not carried out because of patient's decision for other reasons (principal)

== ENCOUNTER → 2022-05-25 | Outpatient (CLI) | payer MEDICARE, MEDICAID | LOC: M LABSMTC 10:07 | PROVIDERS: ATTEND Anesthesiology | DX: Z11.52 Encounter for screening for COVID-19 (principal); Z20.822 Contact with and (suspected) exposure to COVID-19 ==

== ENCOUNTER 2022-05-28 04:12 | Emergency (ER) | payer MEDICARE, MEDICAID ==
[~2022-05-28] VITALS: Ht 172.7 cm; Wt 73.8 kg
[2022-05-28 04:13] VITALS: BP 139/76
== END 2022-05-28 06:15 | disposition left against medical advice (07) ==
LOC: M ED 04:12
DX: Z53.29 Procedure and treatment not carried out because of patient's decision for other reasons (principal)

== ENCOUNTER 2022-06-05 02:21 | Emergency (ER) | payer MEDICARE, MEDICAID ==
[~2022-06-05] VITALS: Ht 172.7 cm; Wt 73.6 kg
[2022-06-05 02:21] VITALS: BP 138/77
[~2022-06-05 02:21] MED LIST changes: +CEFP200T PO
== END 2022-06-05 02:37 | disposition left against medical advice (07) ==
LOC: M ED 02:21
DX: Z53.29 Procedure and treatment not carried out because of patient's decision for other reasons (principal)

== ENCOUNTER 2022-06-06 14:46 | Emergency (ER) | payer MEDICARE, MEDICAID ==
[2022-06-06 18:06] VITALS: BP 112/68
== END 2022-06-06 18:07 | disposition home or self-care (01) ==
LOC: EDBD 14:46 → M ED 14:46
DX: R31.29 Other microscopic hematuria (principal); E11.9 Type 2 diabetes mellitus without complications; N40.1 Benign prostatic hyperplasia with lower urinary tract symptoms; F31.9 Bipolar disorder, unspecified; F32.A Depression, unspecified; F41.9 Anxiety disorder, unspecified; F43.10 Post-traumatic stress disorder, unspecified; Z79.899 Other long term (current) drug therapy; Z79.4 Long term (current) use of insulin

== ENCOUNTER 2022-06-12 06:32 | Emergency (ER) | payer MEDICARE, MEDICAID ==
[~2022-06-12] VITALS: Ht 172.7 cm; Wt 73.6 kg
[2022-06-12 07:53] LABS: BASO % 0.1 % (0.0-1.0); EOS # 0.2 10^3/uL (0.0-0.5); EOS % 2.2 % (0.0-3.0); HEMATOCRIT 40.7 % (42.0-52.0); HEMOGLOBIN 14.3 g/dl (13.5-17.5); LYMPH # 1.4 10^3/uL (1.5-5.0); LYMPH % 20.4 % (24.0-44.0); MEAN CORPUSCULAR HEMOGLOBIN 31.4 pg (27.0-33.0); MEAN CORPUSCULAR HGB CONC 35.1 g/dl (32.0-36.5); MEAN CORPUSCULAR VOLUME 89.3 fl (80.0-96.0); MONO # 0.6 10^3/uL (0.0-0.8); MONO % 8.9 % (2.0-8.0); NEUTROPHILS # 4.6 10^3/uL (1.5-8.5); NEUTROPHILS % 67.8 % (36.0-66.0); PLATELET COUNT, AUTOMATED 169 10^3/uL (150-450); RED BLOOD COUNT 4.56 10^6/uL (4.30-6.10); WHITE BLOOD COUNT 6.8 10^3/uL (4.0-10.0)
[2022-06-12 08:31] LABS: BLOOD UREA NITROGEN 25 MG/DL (7-18); CALCIUM LEVEL 8.3 MG/DL (8.5-10.1); CARBON DIOXIDE LEVEL 21 MEQ/L (21-32); CHLORIDE LEVEL 111 MEQ/L (98-107); CREATININE FOR GFR 1.24 MG/DL (0.70-1.30); FREE THYROXINE INDEX 2.6 % (1.4-3.8); GLOMERULAR FILTRATION RATE > 60.0 (>56); GLUCOSE, FASTING 270 MG/DL (70-100); POTASSIUM SERUM 4.1 MEQ/L (3.5-5.1); SODIUM LEVEL 140 MEQ/L (136-145); T UPTAKE 36 % (33-40); THYROXINE (T4) 7.2 UG/DL (4.5-12.0)
[2022-06-12 09:09] VITALS: BP 143/72
== END 2022-06-12 09:14 | disposition home or self-care (01) ==
LOC: M ED 06:32 → EDBD 06:32 → M ED 09:14
DX: R31.0 Gross hematuria (principal); R00.8 Other abnormalities of heart beat; E11.9 Type 2 diabetes mellitus without complications; N40.0 Benign prostatic hyperplasia without lower urinary tract symptoms; Z79.899 Other long term (current) drug therapy; Z79.4 Long term (current) use of insulin

== ENCOUNTER 2022-06-12 18:42 | Emergency (ER) | payer MEDICARE, MEDICAID ==
[~2022-06-12] VITALS: Ht 172.7 cm; Wt 73.6 kg
[2022-06-12 18:43] VITALS: BP 123/73
[2022-06-12 22:02] LABS: BASO % 0.4 % (0.0-1.0); EOS # 0.2 10^3/uL (0.0-0.5); EOS % 2.4 % (0.0-3.0); HEMATOCRIT 45.8 % (42.0-52.0); HEMOGLOBIN 15.8 g/dl (13.5-17.5); LYMPH # 2.1 10^3/uL (1.5-5.0); MEAN CORPUSCULAR HEMOGLOBIN 30.9 pg (27.0-33.0); MEAN CORPUSCULAR HGB CONC 34.5 g/dl (32.0-36.5); MEAN CORPUSCULAR VOLUME 89.5 fl (80.0-96.0); MONO # 0.7 10^3/uL (0.0-0.8); MONO % 9.3 % (2.0-8.0); NEUTROPHILS # 4.2 10^3/uL (1.5-8.5); NEUTROPHILS % 58.5 % (36.0-66.0); PLATELET COUNT, AUTOMATED 185 10^3/uL (150-450); RED BLOOD COUNT 5.12 10^6/uL (4.30-6.10); WHITE BLOOD COUNT 7.1 10^3/uL (4.0-10.0)
[2022-06-12 22:56] LABS: ALBUMIN 3.7 GM/DL (3.2-5.2); BILIRUBIN,DIRECT 0.2 MG/DL (0.0-0.2); BILIRUBIN,TOTAL 0.7 MG/DL (0.2-1.0); TOTAL PROTEIN 7.3 GM/DL (6.4-8.2)
== END 2022-06-12 23:48 | disposition home or self-care (01) ==
LOC: M ED 18:42
DX: R10.9 Unspecified abdominal pain (principal); E11.9 Type 2 diabetes mellitus without complications; E78.5 Hyperlipidemia, unspecified; F32.A Depression, unspecified; F31.9 Bipolar disorder, unspecified; F41.9 Anxiety disorder, unspecified; Z87.19 Personal history of other diseases of the digestive system; Z96.0 Presence of urogenital implants; Z79.899 Other long term (current) drug therapy; Z79.4 Long term (current) use of insulin

== ENCOUNTER 2022-06-14 18:24 | Emergency (ER) | payer MEDICARE, MEDICAID ==
[~2022-06-14] VITALS: Ht 172.7 cm; Wt 74.5 kg
[2022-06-14 18:26] VITALS: BP 136/87
== END 2022-06-14 20:05 | disposition left against medical advice (07) ==
LOC: M ED 18:24
DX: Z53.29 Procedure and treatment not carried out because of patient's decision for other reasons (principal)

== ENCOUNTER 2022-06-18 09:05 | Emergency (ER) | payer MEDICARE, MEDICAID ==
[~2022-06-18] VITALS: Ht 172.7 cm; Wt 73.2 kg
[2022-06-18 09:06] VITALS: BP 130/69
[2022-06-18] MEDS ORDERED: SULF1TAB23 PO (16:29)
[2022-06-18] MEDS ORDERED: ASPI1CHW3 PO (20:28)
== END 2022-06-18 11:10 | disposition left against medical advice (07) ==
LOC: M ED 09:05
DX: Z53.29 Procedure and treatment not carried out because of patient's decision for other reasons (principal)

== ENCOUNTER 2022-06-18 12:00 | Emergency (ER) | payer MEDICARE, MEDICAID ==
[2022-06-18 13:33] LABS: BASO % 0.4 % (0.0-1.0); EOS # 0.2 10^3/uL (0.0-0.5); EOS % 2.1 % (0.0-3.0); HEMATOCRIT 42.7 % (42.0-52.0); HEMOGLOBIN 14.9 g/dl (13.5-17.5); LYMPH # 1.5 10^3/uL (1.5-5.0); LYMPH % 21.3 % (24.0-44.0); MEAN CORPUSCULAR HEMOGLOBIN 31.2 pg (27.0-33.0); MEAN CORPUSCULAR HGB CONC 34.9 g/dl (32.0-36.5); MEAN CORPUSCULAR VOLUME 89.3 fl (80.0-96.0); MONO # 0.5 10^3/uL (0.0-0.8); MONO % 7.5 % (2.0-8.0); NEUTROPHILS # 4.9 10^3/uL (1.5-8.5); NEUTROPHILS % 68.3 % (36.0-66.0); PLATELET COUNT, AUTOMATED 220 10^3/uL (150-450); RED BLOOD COUNT 4.78 10^6/uL (4.30-6.10); WHITE BLOOD COUNT 7.2 10^3/uL (4.0-10.0)
[2022-06-18 13:45] LABS: INR 1.01; PROTHROMBIN TIME 13.7 SECONDS (12.7-14.5)
[2022-06-18 13:46] LABS: PARTIAL THROMBOPLASTIN TIME 30.6 SECONDS (25.9-37.0)
[2022-06-18 13:58] LABS: CK-MB VALUE MASS 3.7 NG/ML (<3.6); MB/CK RELATIVE INDEX 3.33 (< OR =4)
[2022-06-18 14:03] LABS: ALBUMIN 3.5 GM/DL (3.2-5.2); BILIRUBIN,DIRECT 0.2 MG/DL (0.0-0.2); BILIRUBIN,TOTAL 0.5 MG/DL (0.2-1.0); FREE T4 0.9 NG/DL (0.76-1.46); THYROID STIMULATING HORMONE 1.01 uIU/ML (0.358-3.740); TOTAL PROTEIN 7.4 GM/DL (6.4-8.2)
[2022-06-18] MEDS ORDERED: ISOVUE-370 76% 100ML VIAL As Ordered ONE (14:26)
[2022-06-18 15:14] VITALS: BP 108/60
[2022-06-18 15:37] LABS: CK-MB VALUE MASS 3.1 NG/ML (<3.6); MB/CK RELATIVE INDEX 3.41 (< OR =4)
[2022-06-18 16:18] LABS: CK-MB VALUE MASS 3.5 NG/ML (<3.6); MB/CK RELATIVE INDEX 3.12 (< OR =4)
[2022-06-18] MEDS ORDERED: SULF1TAB23 PO (16:29)
[2022-06-18] MEDS ORDERED: BACTRIM 160MG/800MG DS TAB PO ONE (16:30)
[2022-06-18] MEDS ORDERED: ASPI1CHW3 PO (20:28)
== END 2022-06-18 18:53 | disposition home or self-care (01) ==
LOC: M ED 12:00
DX: N39.0 Urinary tract infection, site not specified (principal); R07.9 Chest pain, unspecified; R16.1 Splenomegaly, not elsewhere classified; E78.9 Disorder of lipoprotein metabolism, unspecified; Z79.899 Other long term (current) drug therapy; Z79.82 Long term (current) use of aspirin
CPT/HCPCS: 71045; 71275; 74177; 80047; 80076; 81001; 82550; 82553; 83690; 83880; 84439; 84443; 84484; 85025; 85610; 85730; 87086; 93005; 93041; 94760; 99285; Q9967

== ENCOUNTER 2022-06-18 20:20 | Emergency (ER) | payer MEDICARE, MEDICAID ==
[~2022-06-18] VITALS: Ht 172.7 cm; Wt 72.7 kg
[2022-06-18 20:20] VITALS: BP 144/74
[~2022-06-18 20:20] MED LIST changes: +SULF1TAB23 PO
[2022-06-18] MEDS ORDERED: ASPI1CHW3 PO (20:28)
== END 2022-06-18 21:35 | disposition left against medical advice (07) ==
LOC: M ED 20:20
DX: Z53.29 Procedure and treatment not carried out because of patient's decision for other reasons (principal)

== ENCOUNTER 2022-06-20 15:07 | Emergency (ER) | payer MEDICARE, MEDICAID ==
[~2022-06-20] VITALS: Ht 172.7 cm; Wt 74.5 kg
[~2022-06-20 15:07] MED LIST changes: +ASPI1CHW3 PO
[2022-06-20 16:40] LABS: BASO % 0.4 % (0.0-1.0); EOS # 0.2 10^3/uL (0.0-0.5); EOS % 2.2 % (0.0-3.0); HEMATOCRIT 41.8 % (42.0-52.0); HEMOGLOBIN 14.7 g/dl (13.5-17.5); LYMPH # 1.9 10^3/uL (1.5-5.0); MEAN CORPUSCULAR HEMOGLOBIN 31.1 pg (27.0-33.0); MEAN CORPUSCULAR HGB CONC 35.2 g/dl (32.0-36.5); MEAN CORPUSCULAR VOLUME 88.4 fl (80.0-96.0); MONO # 0.7 10^3/uL (0.0-0.8); MONO % 9.2 % (2.0-8.0); NEUTROPHILS # 4.6 10^3/uL (1.5-8.5); NEUTROPHILS % 61.8 % (36.0-66.0); PLATELET COUNT, AUTOMATED 219 10^3/uL (150-450); RED BLOOD COUNT 4.73 10^6/uL (4.30-6.10); WHITE BLOOD COUNT 7.4 10^3/uL (4.0-10.0)
[2022-06-20 17:10] LABS: BLOOD UREA NITROGEN 16 MG/DL (7-18); CARBON DIOXIDE LEVEL 24 MEQ/L (21-32); CHLORIDE LEVEL 108 MEQ/L (98-107); CREATININE FOR GFR 1.27 MG/DL (0.70-1.30); GLOMERULAR FILTRATION RATE > 60.0 (>56); GLUCOSE, FASTING 221 MG/DL (70-100); MAGNESIUM LEVEL 2.1 MG/DL (1.8-2.4); POTASSIUM SERUM 3.8 MEQ/L (3.5-5.1); SODIUM LEVEL 139 MEQ/L (136-145)
[2022-06-20 17:52] VITALS: BP 118/80
== END 2022-06-20 18:04 | disposition home or self-care (01) ==
LOC: M ED 15:07 → EDBD 15:07 → M ED 18:04
DX: R00.2 Palpitations (principal); E11.9 Type 2 diabetes mellitus without complications; E78.5 Hyperlipidemia, unspecified; F31.9 Bipolar disorder, unspecified; F43.10 Post-traumatic stress disorder, unspecified; Z79.899 Other long term (current) drug therapy; Z79.4 Long term (current) use of insulin; Z79.82 Long term (current) use of aspirin

== ENCOUNTER 2022-06-22 03:35 | Emergency (ER) | payer MEDICARE, MEDICAID ==
[~2022-06-22] VITALS: Ht 172.7 cm; Wt 74.5 kg
[2022-06-22 03:36] VITALS: BP 134/76
== END 2022-06-22 04:50 | disposition left against medical advice (07) ==
LOC: M ED 03:35
DX: Z53.29 Procedure and treatment not carried out because of patient's decision for other reasons (principal)

== ENCOUNTER 2022-06-23 21:43 | Emergency (ER) | payer MEDICARE, MEDICAID ==
[~2022-06-23] VITALS: Ht 172.7 cm; Wt 74.3 kg
[2022-06-23 21:46] VITALS: BP 130/74
[2022-06-24] MEDS ORDERED: OXYB-54 PO (15:19)
== END 2022-06-24 00:32 | disposition left against medical advice (07) ==
LOC: M ED 21:43
DX: Z53.29 Procedure and treatment not carried out because of patient's decision for other reasons (principal)

== ENCOUNTER 2022-06-24 10:32 | Emergency (ER) | payer MEDICARE, MEDICAID ==
[~2022-06-24] VITALS: Ht 172.7 cm; Wt 72.7 kg
[2022-06-24 10:36] VITALS: BP 152/82
[2022-06-24] MEDS ORDERED: ACETAMINOPHEN 500 MG TAB PO ONE (13:20)
[2022-06-24 14:47] LABS: BASO % 0.5 % (0.0-1.0); EOS # 0.1 10^3/uL (0.0-0.5); EOS % 1.6 % (0.0-3.0); HEMOGLOBIN 15.3 g/dl (13.5-17.5); LYMPH # 1.4 10^3/uL (1.5-5.0); LYMPH % 21.1 % (24.0-44.0); MEAN CORPUSCULAR HEMOGLOBIN 31.1 pg (27.0-33.0); MEAN CORPUSCULAR HGB CONC 34.8 g/dl (32.0-36.5); MEAN CORPUSCULAR VOLUME 89.4 fl (80.0-96.0); MONO # 0.5 10^3/uL (0.0-0.8); MONO % 8.4 % (2.0-8.0); NEUTROPHILS # 4.4 10^3/uL (1.5-8.5); NEUTROPHILS % 67.8 % (36.0-66.0); PLATELET COUNT, AUTOMATED 178 10^3/uL (150-450); RED BLOOD COUNT 4.92 10^6/uL (4.30-6.10); WHITE BLOOD COUNT 6.4 10^3/uL (4.0-10.0)
[2022-06-24] MEDS ORDERED: oxyBUTYnin *DITROPAN XL* 5 MG TABCR PO STA (14:53)
[2022-06-24 14:59] LABS: APPEARANCE, URINE HAZY (CLEAR); BACTERIA, URINE AUTO 1+ (NEGATIVE); BILIRUBIN, URINE AUTO NEGATIVE (NEGATIVE); BLOOD, URINE BLOOD 3+ (NEGATIVE); COLOR, URINE YELLOW (YELLOW); GLUCOSE, URINE (UA) AUTO 3+ mg/dL (NEGATIVE); KETONE, URINE AUTO NEGATIVE (NEGATIVE); LEUKOCYTE ESTERASE, URINE AUTO 3+ (NEGATIVE); MUCUS, URINE SMALL (NEGATIVE); NITRITE, URINE AUTO POSITIVE (NEGATIVE); PROTEIN, URINE AUTO 1+ mg/dL (NEGATIVE); RBC, URINE AUTO TNTC /HPF (0-3); SPECIFIC GRAVITY URINE AUTO 1.018 (1.002-1.035); SQUAMOUS EPITHELIAL CELL UR AU 0 /HPF (0-6); UROBILINOGEN, URINE AUTO 0.2 mg/dL (0.0-2.0); WBC, URINE AUTO 93 /HPF (0-3)
[2022-06-24] MEDS ORDERED: OXYB-54 PO (15:19)
[2022-06-24 15:23] LABS: ALBUMIN 3.6 GM/DL (3.2-5.2); BILIRUBIN,DIRECT 0.2 MG/DL (0.0-0.2); BILIRUBIN,TOTAL 0.6 MG/DL (0.2-1.0); TOTAL PROTEIN 7.1 GM/DL (6.4-8.2)
== END 2022-06-24 15:37 | disposition home or self-care (01) ==
LOC: M ED 10:32
DX: R10.30 Lower abdominal pain, unspecified (principal); T83.098A Other mechanical complication of other urinary catheter, initial encounter; E11.9 Type 2 diabetes mellitus without complications; N40.0 Benign prostatic hyperplasia without lower urinary tract symptoms; Z90.49 Acquired absence of other specified parts of digestive tract; Z79.4 Long term (current) use of insulin; Z79.82 Long term (current) use of aspirin

== ENCOUNTER 2022-06-26 21:23 | Emergency (ER) | payer MEDICARE, MEDICAID ==
[~2022-06-26] VITALS: Ht 172.7 cm; Wt 74.5 kg
[~2022-06-26 21:23] MED LIST changes: +OXYB-54 PO
[2022-06-26 21:32] VITALS: BP 135/86
== END 2022-06-26 23:00 | disposition left against medical advice (07) ==
LOC: EDBD 21:23 → M ED 21:23
DX: Z53.21 Procedure and treatment not carried out due to patient leaving prior to being seen by health care provider (principal)

== ENCOUNTER 2022-06-28 02:13 | Emergency (ER) | payer MEDICARE, MEDICAID ==
[~2022-06-28] VITALS: Ht 172.7 cm; Wt 74.5 kg
[2022-06-28 02:14] VITALS: BP 145/75
== END 2022-06-28 03:46 | disposition left against medical advice (07) ==
LOC: M ED 02:13
DX: Z53.21 Procedure and treatment not carried out due to patient leaving prior to being seen by health care provider (principal)

== ENCOUNTER 2022-07-03 18:50 | Emergency (ER) | payer MEDICARE, MEDICAID ==
[~2022-07-03] VITALS: Ht 172.7 cm; Wt 72.3 kg
[2022-07-03 18:50] VITALS: BP 135/75
== END 2022-07-03 21:49 | disposition left against medical advice (07) ==
LOC: M ED 18:50
DX: Z53.29 Procedure and treatment not carried out because of patient's decision for other reasons (principal)

== ENCOUNTER 2022-07-03 22:12 | Emergency (ER) | payer MEDICARE, MEDICAID ==
[~2022-07-03] VITALS: Ht 172.7 cm; Wt 72.3 kg
[2022-07-03 22:19] VITALS: BP 154/77
[2022-07-05] MEDS ORDERED: TAMS1CAP17 PO (14:04)
[2022-07-05] MEDS ORDERED: ASPI81TA26 PO (14:04)
[2022-07-05] MEDS ORDERED: CVS1CHW13 PO (14:04)
[2022-07-05] MEDS ORDERED: OXYB-54 PO (14:04)
== END 2022-07-04 02:54 | disposition left against medical advice (07) ==
LOC: EDBD 22:12 → M ED 22:12
DX: Z53.29 Procedure and treatment not carried out because of patient's decision for other reasons (principal)

== ENCOUNTER 2022-07-05 00:52 | Emergency (ER) | payer MEDICARE, MEDICAID ==
[~2022-07-05] VITALS: Ht 172.7 cm; Wt 72.3 kg
[2022-07-05 00:57] VITALS: BP 149/85
[2022-07-05] MEDS ORDERED: OXYB-54 PO (14:04)
[2022-07-05] MEDS ORDERED: ASPI81TA26 PO (14:04)
[2022-07-05] MEDS ORDERED: TAMS1CAP17 PO (14:04)
[2022-07-05] MEDS ORDERED: CVS1CHW13 PO (14:04)
== END 2022-07-05 03:10 | disposition left against medical advice (07) ==
LOC: M ED 00:52
DX: Z53.29 Procedure and treatment not carried out because of patient's decision for other reasons (principal)

== ENCOUNTER 2022-07-05 10:44 | Observation (INO) | payer MEDICARE, MEDICAID ==
[~2022-07-05] VITALS: Ht 172.7 cm; Wt 72.3 kg
[~2022-07-05 10:44] MED LIST changes: +ASPIRIN 81MG ENTERIC TABLET PO SCH; +ATORVASTATIN 20 MG TAB PO SCH; +FINASTERIDE 5MG TAB PO SCH; +TAMSULOSIN 0.4 MG CAP PO SCH; +oxyBUTYnin *DITROPAN XL* 5 MG TABCR PO SCH
[2022-07-05] MEDS ORDERED: ISOVUE-370 76% 100ML VIAL As Ordered ONE (11:13)
[2022-07-05 11:14] LABS: BASO % 0.4 % (0.0-1.0); EOS # 0.2 10^3/uL (0.0-0.5); EOS % 2.6 % (0.0-3.0); HEMATOCRIT 45.6 % (42.0-52.0); HEMOGLOBIN 15.6 g/dl (13.5-17.5); LYMPH # 1.9 10^3/uL (1.5-5.0); LYMPH % 22.8 % (24.0-44.0); MEAN CORPUSCULAR HEMOGLOBIN 30.2 pg (27.0-33.0); MEAN CORPUSCULAR HGB CONC 34.2 g/dl (32.0-36.5); MEAN CORPUSCULAR VOLUME 88.2 fl (80.0-96.0); MONO # 0.6 10^3/uL (0.0-0.8); MONO % 6.8 % (2.0-8.0); NEUTROPHILS # 5.6 10^3/uL (1.5-8.5); NEUTROPHILS % 66.6 % (36.0-66.0); PLATELET COUNT, AUTOMATED 200 10^3/uL (150-450); RED BLOOD COUNT 5.17 10^6/uL (4.30-6.10); WHITE BLOOD COUNT 8.4 10^3/uL (4.0-10.0)
[2022-07-05 11:33] LABS: INR 1.03; PROTHROMBIN TIME 13.9 SECONDS (12.7-14.5)
[2022-07-05 11:34] LABS: PARTIAL THROMBOPLASTIN TIME 28.2 SECONDS (25.9-37.0)
[2022-07-05 11:41] LABS: CK-MB VALUE MASS 4.4 NG/ML (<3.6); MB/CK RELATIVE INDEX 3.38 (< OR =4)
[2022-07-05] MEDS ORDERED: HumuLIN R (REGULAR) INSULIN (NovoLIN R) **100U/ML** PER UNIT IV ONE (11:45)
[2022-07-05] MEDS ORDERED: NS 1,000 ML IV ONE (11:45)
[2022-07-05] MEDS ORDERED: TAMS1CAP17 PO (14:04)
[2022-07-05] MEDS ORDERED: ASPI81TA26 PO (14:04)
[2022-07-05] MEDS ORDERED: OXYB-54 PO (14:04)
[2022-07-05] MEDS ORDERED: CVS1CHW13 PO (14:04)
[2022-07-05] MEDS ORDERED: HOME MED LIST COMPLETE! XX SCH (14:05)
[2022-07-05] MEDS ORDERED: GLUCOSE 4GM CHEW TABLET PO PRN (14:30)
[2022-07-05] MEDS ORDERED: GLUCAGON INJ 1MG VIAL SC PRN (14:30)
[2022-07-05] MEDS ORDERED: DEXTROSE 50% 50 ML SYRINGE IV PRN (14:30)
[2022-07-05 14:51] LABS: RSV AMPLIFICATION NEGATIVE (NEGATIVE)
[2022-07-05] MEDS ORDERED: INSULIN LISPRO (NovoLOG) PER UNIT SC SCH ×2 (17:30→21:00)
[2022-07-05 17:49] VITALS: BP 125/79
[2022-07-05] MEDS ORDERED: LEVEMIR (INSULIN DETEMIR) 1 UNITS/0.01ML SC SCH (21:00)
[2022-07-05] MEDS ORDERED: ENOXAPARIN 40MG/0.4ML SYRINGE (J1650 PER 10MG) SC SCH (21:00)
[2022-07-05 22:00] VITALS: BP 120/76
[2022-07-05] MEDS ORDERED: diphenhydrAMINE 50MG/ML VIAL (J1200) IV ONE (23:20)
== END 2022-07-06 00:09 | disposition left against medical advice (07) ==
LOC: EDBD 10:44 → M ED 10:44 → M ED INP 14:27 → ENRESERV 15:33 → M MSPAV 16:50
PROVIDERS: ADMIT Internal Medicine Nephrology; ATTEND Internal Medicine Nephrology
DX: R20.2 Paresthesia of skin (principal); R20.0 Anesthesia of skin; R29.701 NIHSS score 1; E11.9 Type 2 diabetes mellitus without complications; N40.1 Benign prostatic hyperplasia with lower urinary tract symptoms; E78.1 Pure hyperglyceridemia; F31.9 Bipolar disorder, unspecified; F43.10 Post-traumatic stress disorder, unspecified; M41.9 Scoliosis, unspecified; M50.30 Other cervical disc degeneration, unspecified cervical region; M51.36 Other intervertebral disc degeneration, lumbar region; M51.34 Other intervertebral disc degeneration, thoracic region; K21.9 Gastro-esophageal reflux disease without esophagitis; Z96.0 Presence of urogenital implants; Z79.899 Other long term (current) drug therapy; Z79.82 Long term (current) use of aspirin; Z46.4 Encounter for fitting and adjustment of orthodontic device
CPT/HCPCS: 70450; 70496; 70498; 71045; 72141; 72146; 80047; 82550; 82553; 84484; 85025; 85610; 85730; 87631; 93005; 93041; 94760; 96372; 96374; 99285; G0378; J1650; J1815; Q9967

== ENCOUNTER → 2022-07-07 | Outpatient (CLI) | payer MEDICARE, MEDICAID ==
[~2022-07-07] MED LIST changes: -ASPIRIN 81MG ENTERIC TABLET PO SCH; -ATORVASTATIN 20 MG TAB PO SCH; -FINASTERIDE 5MG TAB PO SCH; -TAMSULOSIN 0.4 MG CAP PO SCH; -oxyBUTYnin *DITROPAN XL* 5 MG TABCR PO SCH
[2022-07-07 17:49] LABS: MEAN CORPUSCULAR HEMOGLOBIN 31.4 pg (27.0-33.0); MEAN CORPUSCULAR HGB CONC 34.9 g/dl (32.0-36.5); MEAN CORPUSCULAR VOLUME 90.1 fl (80.0-96.0); PLATELET COUNT, AUTOMATED 187 10^3/uL (150-450); RED BLOOD COUNT 4.77 10^6/uL (4.30-6.10); WHITE BLOOD COUNT 8.5 10^3/uL (4.0-10.0)
[2022-07-07 18:06] LABS: CALCIUM LEVEL 8.8 MG/DL (8.5-10.1); CREATININE FOR GFR 1.45 MG/DL (0.70-1.30); GLOMERULAR FILTRATION RATE 54.4 (>56); POTASSIUM SERUM 4.1 MEQ/L (3.5-5.1)
== END ==
LOC: M LAB 16:45
PROVIDERS: ATTEND Physician Assistant
DX: Z01.818 Encounter for other preprocedural examination (principal)

== ENCOUNTER 2022-07-08 02:02 | Emergency (ER) | payer MEDICARE, MEDICAID ==
[~2022-07-08] VITALS: Ht 172.7 cm; Wt 73.3 kg
[2022-07-08 02:04] VITALS: BP 147/74
== END 2022-07-08 06:11 | disposition left against medical advice (07) ==
LOC: M ED 02:02
DX: Z53.29 Procedure and treatment not carried out because of patient's decision for other reasons (principal)

== ENCOUNTER 2022-07-08 11:00 | Emergency (ER) | payer MEDICARE, MEDICAID ==
[2022-07-08 12:01] LABS: BASO % 0.4 % (0.0-1.0); EOS # 0.2 10^3/uL (0.0-0.5); HEMATOCRIT 43.6 % (42.0-52.0); HEMOGLOBIN 15.2 g/dl (13.5-17.5); LYMPH # 1.9 10^3/uL (1.5-5.0); LYMPH % 23.9 % (24.0-44.0); MEAN CORPUSCULAR HEMOGLOBIN 30.5 pg (27.0-33.0); MEAN CORPUSCULAR HGB CONC 34.9 g/dl (32.0-36.5); MEAN CORPUSCULAR VOLUME 87.6 fl (80.0-96.0); MONO # 0.6 10^3/uL (0.0-0.8); MONO % 7.8 % (2.0-8.0); NEUTROPHILS # 5.2 10^3/uL (1.5-8.5); NEUTROPHILS % 64.5 % (36.0-66.0); PLATELET COUNT, AUTOMATED 188 10^3/uL (150-450); RED BLOOD COUNT 4.98 10^6/uL (4.30-6.10)
[2022-07-08 12:16] LABS: INR 1.01; PROTHROMBIN TIME 13.7 SECONDS (12.7-14.5)
[2022-07-08 12:37] LABS: ALBUMIN 3.6 GM/DL (3.2-5.2); ALT/SGPT 28 U/L (12-78); BILIRUBIN,DIRECT 0.3 MG/DL (0.0-0.2); BILIRUBIN,TOTAL 0.8 MG/DL (0.2-1.0); BLOOD UREA NITROGEN 18 MG/DL (7-18); CALCIUM LEVEL 8.8 MG/DL (8.5-10.1); CARBON DIOXIDE LEVEL 23 MEQ/L (21-32); CHLORIDE LEVEL 108 MEQ/L (98-107); GLOMERULAR FILTRATION RATE > 60.0 (>56); GLUCOSE, FASTING 278 MG/DL (70-100); LIPASE 57 U/L (73-393); POTASSIUM SERUM 3.9 MEQ/L (3.5-5.1); SODIUM LEVEL 136 MEQ/L (136-145); TOTAL PROTEIN 7.1 GM/DL (6.4-8.2)
[2022-07-08 13:55] LABS: CK-MB VALUE MASS 2.9 NG/ML (<3.6); MB/CK RELATIVE INDEX 3.19 (< OR =4)
[2022-07-08 15:34] LABS: CK-MB VALUE MASS 2.5 NG/ML (<3.6); MB/CK RELATIVE INDEX 3.38 (< OR =4)
[2022-07-08 16:45] VITALS: BP 119/75
== END 2022-07-08 16:50 | disposition home or self-care (01) ==
LOC: EDBD 11:00 → M ED 11:00
DX: R07.9 Chest pain, unspecified (principal); E11.9 Type 2 diabetes mellitus without complications; I10 Essential (primary) hypertension; E78.5 Hyperlipidemia, unspecified; F31.9 Bipolar disorder, unspecified; F43.10 Post-traumatic stress disorder, unspecified; Z87.19 Personal history of other diseases of the digestive system; Z86.73 Personal history of transient ischemic attack (TIA), and cerebral infarction without residual deficits; Z79.899 Other long term (current) drug therapy; Z79.4 Long term (current) use of insulin; Z79.82 Long term (current) use of aspirin

== ENCOUNTER 2022-07-10 16:45 | Emergency (ER) | payer MEDICARE, MEDICAID ==
[~2022-07-10] VITALS: Ht 172.7 cm; Wt 72.3 kg
[2022-07-10 17:04] VITALS: BP 117/71
== END 2022-07-10 18:41 | disposition left against medical advice (07) ==
LOC: M ED 16:45
DX: Z53.29 Procedure and treatment not carried out because of patient's decision for other reasons (principal)

== ENCOUNTER → 2022-07-12 | Outpatient (CLI) | payer MEDICARE, MEDICAID | LOC: M EKG 15:46 | PROVIDERS: ATTEND Physician Assistant | DX: Z01.818 Encounter for other preprocedural examination (principal) ==

== ENCOUNTER 2022-07-13 21:09 | Emergency (ER) | payer MEDICARE, MEDICAID ==
[~2022-07-13] VITALS: Ht 172.7 cm; Wt 73.2 kg
[2022-07-13 21:10] VITALS: BP 141/73
[2022-07-17] MEDS ORDERED: SERT50TA29 (13:55)
== END 2022-07-13 23:24 | disposition left against medical advice (07) ==
LOC: M ED 21:09
DX: Z53.29 Procedure and treatment not carried out because of patient's decision for other reasons (principal)

== ENCOUNTER 2022-07-15 10:12 | Emergency (ER) | payer MEDICARE, MEDICAID ==
[~2022-07-15] VITALS: Ht 172.7 cm; Wt 72.3 kg
[2022-07-15] MEDS ORDERED: IBUPROFEN 800 MG TAB PO ONE (10:50)
[2022-07-15 12:09] VITALS: BP 125/63
[2022-07-16] MEDS ORDERED: MACR100C43 PO (19:31)
[2022-07-17] MEDS ORDERED: SERT50TA29 (13:55)
== END 2022-07-15 12:10 | disposition home or self-care (01) ==
LOC: M ED 10:12
DX: M54.50 Low back pain, unspecified (principal); E11.9 Type 2 diabetes mellitus without complications; I10 Essential (primary) hypertension; E78.5 Hyperlipidemia, unspecified; Z86.73 Personal history of transient ischemic attack (TIA), and cerebral infarction without residual deficits; Z87.19 Personal history of other diseases of the digestive system; Z79.899 Other long term (current) drug therapy; Z79.82 Long term (current) use of aspirin; Z79.4 Long term (current) use of insulin

== ENCOUNTER 2022-07-16 16:42 | Emergency (ER) | payer MEDICARE, MEDICAID ==
[~2022-07-16] VITALS: Ht 172.7 cm; Wt 71.6 kg
[2022-07-16 16:43] VITALS: BP 133/69
[2022-07-16 17:54] LABS: BASO % 0.3 % (0.0-1.0); EOS # 0.2 10^3/uL (0.0-0.5); EOS % 2.6 % (0.0-3.0); HEMATOCRIT 43.6 % (42.0-52.0); HEMOGLOBIN 15.5 g/dl (13.5-17.5); LYMPH # 2.4 10^3/uL (1.5-5.0); LYMPH % 25.9 % (24.0-44.0); MEAN CORPUSCULAR HEMOGLOBIN 30.9 pg (27.0-33.0); MEAN CORPUSCULAR HGB CONC 35.6 g/dl (32.0-36.5); MEAN CORPUSCULAR VOLUME 86.9 fl (80.0-96.0); MONO # 0.7 10^3/uL (0.0-0.8); MONO % 7.6 % (2.0-8.0); NEUTROPHILS # 5.9 10^3/uL (1.5-8.5); NEUTROPHILS % 63.1 % (36.0-66.0); PLATELET COUNT, AUTOMATED 207 10^3/uL (150-450); RED BLOOD COUNT 5.02 10^6/uL (4.30-6.10); WHITE BLOOD COUNT 9.4 10^3/uL (4.0-10.0)
[2022-07-16 18:17] LABS: ALBUMIN 3.6 GM/DL (3.2-5.2); BILIRUBIN,DIRECT 0.2 MG/DL (0.0-0.2); BILIRUBIN,TOTAL 0.8 MG/DL (0.2-1.0); CREATININE FOR GFR 1.46 MG/DL (0.70-1.30); POTASSIUM SERUM 3.9 MEQ/L (3.5-5.1); TOTAL PROTEIN 7.2 GM/DL (6.4-8.2)
[2022-07-16 18:41] LABS: RBC, URINE 30-40 /hpf (0-3)
[2022-07-16 18:42] LABS: AMORPHOUS SEDIMENT, URINE SMALL AMOUNT (NEGATIVE); BACTERIA, URINE MOD AMOUNT; HYALINE CAST, URINE NONE SEEN /lpf (0-1); MUCUS, URINE MOD AMOUNT (NEGATIVE); SQUAMOUS EPITHELIAL CELL URINE SMALL AMOUNT /hpf (SMALL AMT)
[2022-07-16] MEDS ORDERED: BACTRIM 160MG/800MG DS TAB PO ONE (19:25)
[2022-07-16] MEDS ORDERED: ACETAMINOPHEN 500 MG TAB PO ONE (19:25)
[2022-07-16] MEDS ORDERED: NITROFURANTOIN (MACROBID) 100 MG CAP PO ONE (19:30)
[2022-07-16] MEDS ORDERED: MACR100C43 PO (19:31)
[2022-07-17] MEDS ORDERED: SERT50TA29 (13:55)
== END 2022-07-16 19:49 | disposition home or self-care (01) ==
LOC: M ED 16:42
DX: N30.00 Acute cystitis without hematuria (principal); E11.9 Type 2 diabetes mellitus without complications; I10 Essential (primary) hypertension; E78.5 Hyperlipidemia, unspecified; Z86.73 Personal history of transient ischemic attack (TIA), and cerebral infarction without residual deficits; Z87.19 Personal history of other diseases of the digestive system; Z96.0 Presence of urogenital implants; Z79.899 Other long term (current) drug therapy; Z79.4 Long term (current) use of insulin; Z79.82 Long term (current) use of aspirin

== ENCOUNTER → 2022-07-23 | Outpatient (CLI) | payer MEDICARE, MEDICAID ==
[~2022-07-23] MED LIST changes: +MACR100C43 PO; +SERT50TA29
== END ==
LOC: M LABSMTC 10:55
PROVIDERS: ATTEND Anesthesiology
DX: Z01.812 Encounter for preprocedural laboratory examination (principal); Z20.822 Contact with and (suspected) exposure to COVID-19

== ENCOUNTER 2022-07-27 11:01 | Day surgery (SDC) | payer MEDICARE, MEDICAID ==
[2022-07-27] VITALS (7 sets, daily range): BP systolic 103–112; BP diastolic 58–80
[~2022-07-27] VITALS: Ht 172.7 cm; Wt 72.5 kg
[~2022-07-27 11:01] MED LIST changes: +ceFAZolin SOD 2 GM in IV 1 EA IV ONE
[2022-07-27] MEDS ORDERED: LIDOCAINE 2% 100MG/5ML SDV (FOR ANES.) As Ordered ONE (11:11)
[2022-07-27] MEDS ORDERED: LR 1,000 ML IV SCH ×2 (11:35→14:30)
[2022-07-27] MEDS ORDERED: dexameTHASONE 4 MG/ML 1ML VIAL (J1100 PER 1MG) As Ordered ONE (12:12)
[2022-07-27] MEDS ORDERED: MIDAZOLAM INJ 2MG/2ML VIAL (J2250 PER 1MG) As Ordered ONE (12:12)
[2022-07-27] MEDS ORDERED: fentaNYL 100 MCG/2 ML INJECTION As Ordered ONE (12:12)
[2022-07-27] MEDS ORDERED: propofoL 200 MG/20 ML VIAL As Ordered ONE (12:12)
[2022-07-27] MEDS ORDERED: SUGAMMADEX SODIUM 500 MG/5 ML VIAL (BRIDION) As Ordered ONE (12:13)
[2022-07-27] MEDS ORDERED: ONDANSETRON 4MG 2ML VIAL As Ordered ONE (12:13)
[2022-07-27] MEDS ORDERED: ROCURONIUM BROMIDE 50 MG/5 ML VIAL As Ordered ONE (12:13)
[2022-07-27] MEDS ORDERED: PHENYLephrine 500MCG 5ML (100MCG/ML) SYRINGE As Ordered ONE (12:54)
[2022-07-27] MEDS ORDERED: ACETAMINOPHEN 1000MG 100ML IV BTL (OFIRMEV) (J0131 PER 10MG) As Ordered ONE (13:51)
[2022-07-27] MEDS ORDERED: fentaNYL 100 MCG/2 ML INJECTION IV PRN (14:30)
[2022-07-27] MEDS ORDERED: ONDANSETRON 4MG 2ML VIAL IV PRN ×2 (14:30→14:35)
[2022-07-27] MEDS ORDERED: oxyCODONE 5MG TAB PO PRN (14:30)
[2022-07-27] MEDS ORDERED: GLUCAGON INJ 1MG VIAL SC PRN (14:35)
[2022-07-27] MEDS ORDERED: ACETAMINOPHEN TAB 650MG DOSE (2X325MG) PO PRN (14:35)
[2022-07-27] MEDS ORDERED: GLUCOSE 4GM CHEW TABLET PO PRN (14:35)
[2022-07-27] MEDS ORDERED: DEXTROSE 50% 50 ML SYRINGE IV PRN (14:35)
[2022-07-27] MEDS ORDERED: INSULIN LISPRO (NovoLOG) PER UNIT SC PRN (14:45)
[2022-07-27] MEDS: INSULIN LISPRO (NovoLOG) PER UNIT SC SCH (14:53)
[2022-07-27] MEDS: D5W/0.45% SODIUM CHLORIDE 1,000 ML IV SCH (16:19)
[2022-07-27] MEDS: BACTRIM 160MG/800MG DS TAB PO SCH (20:12)
[2022-07-27] MEDS: TAMSULOSIN 0.4 MG CAP PO SCH (20:12)
[2022-07-27] MEDS: oxyBUTYnin 5 MG TAB PO SCH (20:12)
[2022-07-27] MEDS ORDERED: INSULIN LISPRO (NovoLOG) PER UNIT SC SCH (21:00)
[2022-07-28 02:00] VITALS: BP 109/77
[2022-07-28] MEDS: D5W/0.45% SODIUM CHLORIDE 1,000 ML IV SCH (03:39)
[2022-07-28 05:30] VITALS: BP 104/63
[2022-07-28 05:38] LABS: BASO % 0.2 % (0.0-1.0); EOS # 0.1 10^3/uL (0.0-0.5); EOS % 1.7 % (0.0-3.0); HEMOGLOBIN 13.7 g/dl (13.5-17.5); LYMPH # 1.7 10^3/uL (1.5-5.0); LYMPH % 20.4 % (24.0-44.0); MEAN CORPUSCULAR HEMOGLOBIN 31.1 pg (27.0-33.0); MEAN CORPUSCULAR HGB CONC 35.1 g/dl (32.0-36.5); MEAN CORPUSCULAR VOLUME 88.6 fl (80.0-96.0); MONO # 0.6 10^3/uL (0.0-0.8); MONO % 7.1 % (2.0-8.0); NEUTROPHILS # 5.8 10^3/uL (1.5-8.5); NEUTROPHILS % 70.2 % (36.0-66.0); PLATELET COUNT, AUTOMATED 168 10^3/uL (150-450); WHITE BLOOD COUNT 8.2 10^3/uL (4.0-10.0)
[2022-07-28 06:07] LABS: ALT/SGPT 18 U/L (12-78); BILIRUBIN,TOTAL 0.7 MG/DL (0.2-1.0); BLOOD UREA NITROGEN 19 MG/DL (7-18); CALCIUM LEVEL 8.2 MG/DL (8.5-10.1); CARBON DIOXIDE LEVEL 27 MEQ/L (21-32); CHLORIDE LEVEL 105 MEQ/L (98-107); GLOMERULAR FILTRATION RATE > 60.0 (>56); GLUCOSE, FASTING 253 MG/DL (70-100); POTASSIUM SERUM 3.9 MEQ/L (3.5-5.1); SODIUM LEVEL 135 MEQ/L (136-145)
[2022-07-28] MEDS: INSULIN LISPRO (NovoLOG) PER UNIT SC SCH (07:30)
[2022-07-28] MEDS: oxyBUTYnin 5 MG TAB PO SCH (08:51)
[2022-07-28] MEDS: BACTRIM 160MG/800MG DS TAB PO SCH (08:51)
[2022-07-28] MEDS: TAMSULOSIN 0.4 MG CAP PO SCH (08:51)
[2022-07-28] MEDS ORDERED: FINASTERIDE 5MG TAB PO SCH (09:00)
[2022-07-28] MEDS ORDERED: ATORVASTATIN 20 MG TAB PO SCH (09:00)
[2022-08-19] MEDS ORDERED: CEFD300C PO (20:37)
[2022-08-19] MEDS ORDERED: ZITHTAB PO (20:37)
== END 2022-07-28 09:25 | disposition left against medical advice (07) ==
LOC: M SDC 11:01 → M MSPAV 15:23 → M SDC 07-28 09:25
PROVIDERS: ATTEND Urology
DX: N40.1 Benign prostatic hyperplasia with lower urinary tract symptoms (principal); R33.8 Other retention of urine; R94.31 Abnormal electrocardiogram [ECG] [EKG]; E78.5 Hyperlipidemia, unspecified; E11.9 Type 2 diabetes mellitus without complications; Z79.4 Long term (current) use of insulin; Z79.82 Long term (current) use of aspirin; F31.9 Bipolar disorder, unspecified; F32.A Depression, unspecified; F43.10 Post-traumatic stress disorder, unspecified; Z79.899 Other long term (current) drug therapy; Z86.73 Personal history of transient ischemic attack (TIA), and cerebral infarction without residual deficits
CPT/HCPCS: 36415; 52601; 80053; 85025; 88305; G0378; J0131; J0690; J1815; J2250; J2370; J2405; J3010

== ENCOUNTER 2022-07-30 02:15 | Emergency (ER) | payer MEDICARE, MEDICAID ==
[~2022-07-30] VITALS: Ht 172.7 cm; Wt 72.3 kg
[~2022-07-30 02:15] MED LIST changes: -ceFAZolin SOD 2 GM in IV 1 EA IV ONE
[2022-07-30 02:16] VITALS: BP 125/72
== END 2022-07-30 03:46 | disposition left against medical advice (07) ==
LOC: M ED 02:15
DX: Z53.29 Procedure and treatment not carried out because of patient's decision for other reasons (principal)

== ENCOUNTER 2022-07-30 10:56 | Emergency (ER) | payer MEDICARE, MEDICAID ==
[~2022-07-30] VITALS: Ht 172.7 cm; Wt 72.3 kg
[2022-07-30 12:15] VITALS: BP 115/61
== END 2022-07-30 12:22 | disposition home or self-care (01) ==
LOC: M ED 10:56
DX: R07.89 Other chest pain (principal); F45.0 Somatization disorder; Z76.5 Malingerer [conscious simulation]; I44.7 Left bundle-branch block, unspecified; E11.9 Type 2 diabetes mellitus without complications; F31.9 Bipolar disorder, unspecified; F25.9 Schizoaffective disorder, unspecified; K21.9 Gastro-esophageal reflux disease without esophagitis; M51.9 Unspecified thoracic, thoracolumbar and lumbosacral intervertebral disc disorder; N40.0 Benign prostatic hyperplasia without lower urinary tract symptoms; Z91.19 Patient's noncompliance with other medical treatment and regimen

== ENCOUNTER 2022-08-03 17:45 | Emergency (ER) | payer MEDICARE, MEDICAID ==
[~2022-08-03] VITALS: Ht 172.7 cm; Wt 73.5 kg
[2022-08-03 17:46] VITALS: BP 132/69
== END 2022-08-03 19:26 | disposition left against medical advice (07) ==
LOC: M ED 17:45
DX: Z53.21 Procedure and treatment not carried out due to patient leaving prior to being seen by health care provider (principal)

== ENCOUNTER 2022-08-05 21:14 | Emergency (ER) | payer MEDICARE, MEDICAID ==
[~2022-08-05] VITALS: Ht 172.7 cm; Wt 74.3 kg
[2022-08-05 21:15] VITALS: BP 145/99
== END 2022-08-05 22:35 | disposition left against medical advice (07) ==
LOC: M ED 21:14
DX: Z53.21 Procedure and treatment not carried out due to patient leaving prior to being seen by health care provider (principal)

== ENCOUNTER 2022-08-07 01:01 | Emergency (ER) | payer MEDICARE, MEDICAID ==
[~2022-08-07] VITALS: Ht 172.7 cm; Wt 71.4 kg
[2022-08-07 01:02] VITALS: BP 142/78
== END 2022-08-07 01:15 | disposition left against medical advice (07) ==
LOC: M ED 01:01
DX: Z53.29 Procedure and treatment not carried out because of patient's decision for other reasons (principal)

== ENCOUNTER 2022-09-01 04:14 | Emergency (ER) | payer MEDICARE, MEDICAID ==
[~2022-09-01] VITALS: Ht 172.7 cm; Wt 72.3 kg
[~2022-09-01 04:14] MED LIST changes: +ZITHTAB PO
[2022-09-01 04:18] VITALS: BP 155/75
[2022-09-01 09:57] LABS: BASO % 0.4 % (0.0-1.0); EOS # 0.1 10^3/uL (0.0-0.5); EOS % 1.2 % (0.0-3.0); HEMATOCRIT 46.3 % (42.0-52.0); HEMOGLOBIN 16.1 g/dl (13.5-17.5); LYMPH # 2.1 10^3/uL (1.5-5.0); LYMPH % 25.6 % (24.0-44.0); MEAN CORPUSCULAR HEMOGLOBIN 30.2 pg (27.0-33.0); MEAN CORPUSCULAR HGB CONC 34.8 g/dl (32.0-36.5); MEAN CORPUSCULAR VOLUME 86.9 fl (80.0-96.0); MONO # 0.6 10^3/uL (0.0-0.8); MONO % 7.3 % (2.0-8.0); NEUTROPHILS # 5.3 10^3/uL (1.5-8.5); NEUTROPHILS % 64.9 % (36.0-66.0); PLATELET COUNT, AUTOMATED 177 10^3/uL (150-450); RED BLOOD COUNT 5.33 10^6/uL (4.30-6.10); WHITE BLOOD COUNT 8.1 10^3/uL (4.0-10.0)
[2022-09-01 10:10] LABS: HEMOGLOBIN A1c 11.1 %
[2022-09-01 10:20] LABS: OSMOLALITY SERUM 306 MOSM/KG (275-295)
[2022-09-01 10:35] LABS: CPK CREATINE PHOSPHOKINASE 108 U/L (39-308)
[2022-09-01 10:39] LABS: ACETONE/KETONE 3.37 MG/DL (<2.81); ALBUMIN 3.7 GM/DL (3.2-5.2); ALT/SGPT 27 U/L (12-78); BILIRUBIN,DIRECT 0.1 MG/DL (0.0-0.2); BILIRUBIN,TOTAL 0.6 MG/DL (0.2-1.0); BLOOD UREA NITROGEN 27 MG/DL (7-18); CARBON DIOXIDE LEVEL 22 MEQ/L (21-32); CHLORIDE LEVEL 105 MEQ/L (98-107); CREATININE FOR GFR 1.12 MG/DL (0.70-1.30); GLOMERULAR FILTRATION RATE > 60.0 (>56); GLUCOSE, FASTING 400 MG/DL (70-100); LIPASE 104 U/L (73-393); MAGNESIUM LEVEL 2.3 MG/DL (1.8-2.4); PHOSPHORUS LEVEL 3.4 MG/DL (2.5-4.9); POTASSIUM SERUM 4.5 MEQ/L (3.5-5.1); SODIUM LEVEL 135 MEQ/L (136-145); TOTAL PROTEIN 7.3 GM/DL (6.4-8.2)
[2022-09-01] MEDS ORDERED: HumuLIN R (REGULAR) INSULIN (NovoLIN R) **100U/ML** PER UNIT IV ONE (11:00)
[2022-09-01] MEDS ORDERED: NS 500 ML IV ONE (11:00)
[2022-09-01 11:29] LABS: ABG BASE EXCESS -4.8 (-2.0-2.0); ABG HCO3 19.1 MEQ/L (22.0-26.0); ABG O2 SATURATION 99.4 % (95.0-99.0); ABG PARTIAL PRESSURE CO2 32.6 mmHg (35.0-45.0); ABG PARTIAL PRESSURE O2 176.5 mmHg (75.0-100.0); ABG STANDARD HCO3 20.7 MEQ/L (22.0-26.0); ABG TOTAL CO2 20.1 MEQ/L (22.0-29.0); ABG pH (ARTERIAL) 7.385 UNITS (7.350-7.450)
== END 2022-09-01 13:39 | disposition home or self-care (01) ==
LOC: M ED 04:14
DX: E11.65 Type 2 diabetes mellitus with hyperglycemia (principal); R06.02 Shortness of breath; K21.9 Gastro-esophageal reflux disease without esophagitis; I10 Essential (primary) hypertension; Z79.4 Long term (current) use of insulin
CPT/HCPCS: 36600; 71045; 80048; 80076; 82010; 82550; 82803; 83036; 83690; 83735; 83930; 84100; 84484; 85025; 93005; 96361; 96374; 99284; J1815

== ENCOUNTER 2022-09-05 22:13 | Emergency (ER) | payer MEDICARE, MEDICAID | END 2022-09-05 22:30 | disposition left against medical advice (07) | LOC: M ED 22:13 | DX: Z53.21 Procedure and treatment not carried out due to patient leaving prior to being seen by health care provider (principal) ==

== ENCOUNTER 2022-09-07 05:34 | Emergency (ER) | payer MEDICARE, MEDICAID ==
[~2022-09-07] VITALS: Ht 172.7 cm; Wt 72.3 kg
[2022-09-07 11:11] LABS: BASO % 0.3 % (0.0-1.0); EOS # 0.1 10^3/uL (0.0-0.5); EOS % 0.9 % (0.0-3.0); HEMATOCRIT 49.7 % (42.0-52.0); LYMPH # 2.1 10^3/uL (1.5-5.0); LYMPH % 21.4 % (24.0-44.0); MEAN CORPUSCULAR HEMOGLOBIN 30.2 pg (27.0-33.0); MEAN CORPUSCULAR HGB CONC 34.2 g/dl (32.0-36.5); MEAN CORPUSCULAR VOLUME 88.3 fl (80.0-96.0); MONO # 0.6 10^3/uL (0.0-0.8); MONO % 6.5 % (2.0-8.0); NEUTROPHILS # 6.7 10^3/uL (1.5-8.5); NEUTROPHILS % 70.4 % (36.0-66.0); PLATELET COUNT, AUTOMATED 191 10^3/uL (150-450); RED BLOOD COUNT 5.63 10^6/uL (4.30-6.10); WHITE BLOOD COUNT 9.6 10^3/uL (4.0-10.0)
[2022-09-07 11:29] LABS: INR 1.02; PARTIAL THROMBOPLASTIN TIME 27.6 SECONDS (24.8-34.2); PROTHROMBIN TIME 13.6 SECONDS (12.5-14.5)
[2022-09-07 12:43] VITALS: BP 122/80
== END 2022-09-07 12:46 | disposition home or self-care (01) ==
LOC: M ED 05:34
DX: R42 Dizziness and giddiness (principal); R20.8 Other disturbances of skin sensation; E11.9 Type 2 diabetes mellitus without complications; E78.5 Hyperlipidemia, unspecified; I10 Essential (primary) hypertension; Z79.4 Long term (current) use of insulin; Z79.82 Long term (current) use of aspirin; Z79.899 Other long term (current) drug therapy

== ENCOUNTER 2022-09-09 10:11 | Emergency (ER) | payer MEDICARE, MEDICAID ==
[~2022-09-09] VITALS: Ht 172.7 cm; Wt 71.8 kg
[2022-09-09] MEDS ORDERED: ACETAMINOPHEN 500 MG TAB PO ONE (13:25)
[2022-09-09] MEDS ORDERED: NS 1,000 ML IV ONE (13:25)
[2022-09-09 14:10] LABS: BASO % 0.4 % (0.0-1.0); EOS # 0.1 10^3/uL (0.0-0.5); EOS % 1.6 % (0.0-3.0); HEMOGLOBIN 16.7 g/dl (13.5-17.5); LYMPH # 2.2 10^3/uL (1.5-5.0); LYMPH % 26.1 % (24.0-44.0); MEAN CORPUSCULAR HEMOGLOBIN 30.8 pg (27.0-33.0); MEAN CORPUSCULAR HGB CONC 34.8 g/dl (32.0-36.5); MEAN CORPUSCULAR VOLUME 88.6 fl (80.0-96.0); MONO # 0.7 10^3/uL (0.0-0.8); MONO % 7.8 % (2.0-8.0); NEUTROPHILS # 5.4 10^3/uL (1.5-8.5); NEUTROPHILS % 63.7 % (36.0-66.0); PLATELET COUNT, AUTOMATED 205 10^3/uL (150-450); RED BLOOD COUNT 5.42 10^6/uL (4.30-6.10); WHITE BLOOD COUNT 8.5 10^3/uL (4.0-10.0)
[2022-09-09 14:39] LABS: ALBUMIN 3.8 GM/DL (3.2-5.2); BILIRUBIN,DIRECT 0.2 MG/DL (0.0-0.2); BILIRUBIN,TOTAL 0.9 MG/DL (0.2-1.0); CK-MB VALUE MASS 5.5 NG/ML (<3.6); MB/CK RELATIVE INDEX 2.96 (< OR =4); TOTAL PROTEIN 7.5 GM/DL (6.4-8.2)
[2022-09-09 14:53] LABS: CALCIUM LEVEL 8.9 MG/DL (8.5-10.1); CREATININE FOR GFR 1.34 MG/DL (0.70-1.30); GLOMERULAR FILTRATION RATE 59.6 (>56)
[2022-09-09 15:46] VITALS: BP 133/78
[2022-09-09 15:53] LABS: CK-MB VALUE MASS 5.1 NG/ML (<3.6); MB/CK RELATIVE INDEX 3.17 (< OR =4)
== END 2022-09-09 16:00 | disposition left against medical advice (07) ==
LOC: M ED 10:11
DX: R10.12 Left upper quadrant pain (principal); Z53.9 Procedure and treatment not carried out, unspecified reason; I48.91 Unspecified atrial fibrillation; E11.9 Type 2 diabetes mellitus without complications; I10 Essential (primary) hypertension; Z86.73 Personal history of transient ischemic attack (TIA), and cerebral infarction without residual deficits; E78.5 Hyperlipidemia, unspecified; K21.9 Gastro-esophageal reflux disease without esophagitis; F41.9 Anxiety disorder, unspecified; F32.9 Major depressive disorder, single episode, unspecified; F43.10 Post-traumatic stress disorder, unspecified; N40.0 Benign prostatic hyperplasia without lower urinary tract symptoms; Z87.19 Personal history of other diseases of the digestive system; Z79.4 Long term (current) use of insulin; Z79.82 Long term (current) use of aspirin; Z79.899 Other long term (current) drug therapy

== ENCOUNTER 2022-09-12 17:59 | Emergency (ER) | payer MEDICARE, MEDICAID ==
[~2022-09-12] VITALS: Ht 172.7 cm; Wt 72.8 kg
[2022-09-12 18:00] VITALS: BP 129/89
== END 2022-09-12 23:57 | disposition left against medical advice (07) ==
LOC: M ED 17:59
DX: Z53.21 Procedure and treatment not carried out due to patient leaving prior to being seen by health care provider (principal)

== ENCOUNTER 2022-09-13 13:22 | Emergency (ER) | payer MEDICARE, MEDICAID ==
[2022-09-13 18:42] LABS: BASO % 0.3 % (0.0-1.0); EOS # 0.1 10^3/uL (0.0-0.5); EOS % 1.3 % (0.0-3.0); HEMATOCRIT 47.8 % (42.0-52.0); HEMOGLOBIN 16.2 g/dl (13.5-17.5); LYMPH # 1.8 10^3/uL (1.5-5.0); LYMPH % 28.5 % (24.0-44.0); MEAN CORPUSCULAR HEMOGLOBIN 30.4 pg (27.0-33.0); MEAN CORPUSCULAR HGB CONC 33.9 g/dl (32.0-36.5); MEAN CORPUSCULAR VOLUME 89.7 fl (80.0-96.0); MONO # 0.7 10^3/uL (0.0-0.8); MONO % 10.9 % (2.0-8.0); NEUTROPHILS # 3.7 10^3/uL (1.5-8.5); NEUTROPHILS % 58.7 % (36.0-66.0); PLATELET COUNT, AUTOMATED 180 10^3/uL (150-450); RED BLOOD COUNT 5.33 10^6/uL (4.30-6.10); WHITE BLOOD COUNT 6.3 10^3/uL (4.0-10.0)
[2022-09-13 19:16] LABS: ALBUMIN 3.9 GM/DL (3.2-5.2); BILIRUBIN,DIRECT 0.2 MG/DL (0.0-0.2); BILIRUBIN,TOTAL 0.6 MG/DL (0.2-1.0); CALCIUM LEVEL 8.9 MG/DL (8.5-10.1); CREATININE FOR GFR 1.35 MG/DL (0.70-1.30); GLOMERULAR FILTRATION RATE 59.1 (>56); MAGNESIUM LEVEL 2.5 MG/DL (1.8-2.4); TOTAL PROTEIN 7.8 GM/DL (6.4-8.2)
[2022-09-13 19:31] LABS: MB/CK RELATIVE INDEX 3.37 (< OR =4)
[2022-09-13 20:06] VITALS: BP 131/74
== END 2022-09-13 20:07 | disposition home or self-care (01) ==
LOC: M ED 13:22
DX: I49.3 Ventricular premature depolarization (principal); I49.8 Other specified cardiac arrhythmias; E11.9 Type 2 diabetes mellitus without complications; E78.5 Hyperlipidemia, unspecified; K21.9 Gastro-esophageal reflux disease without esophagitis; N17.9 Acute kidney failure, unspecified; Z86.73 Personal history of transient ischemic attack (TIA), and cerebral infarction without residual deficits; Z79.82 Long term (current) use of aspirin; Z79.4 Long term (current) use of insulin; Z79.899 Other long term (current) drug therapy

== ENCOUNTER 2022-09-14 22:45 | Emergency (ER) | payer MEDICARE, MEDICAID ==
[~2022-09-14] VITALS: Ht 172.7 cm; Wt 75.7 kg
[2022-09-14 23:02] VITALS: BP 168/83
== END 2022-09-15 01:55 | disposition left against medical advice (07) ==
LOC: EDBD 22:45 → M ED 22:45
DX: Z53.21 Procedure and treatment not carried out due to patient leaving prior to being seen by health care provider (principal)

== ENCOUNTER 2022-09-19 18:14 | Emergency (ER) | payer MEDICARE, MEDICAID ==
[~2022-09-19] VITALS: Ht 172.7 cm; Wt 73.5 kg
[2022-09-19 18:14] VITALS: BP 131/79
== END 2022-09-19 22:35 | disposition left against medical advice (07) ==
LOC: M ED 18:14
DX: Z53.21 Procedure and treatment not carried out due to patient leaving prior to being seen by health care provider (principal)

== ENCOUNTER 2022-09-21 14:37 | Emergency (ER) | payer MEDICARE, MEDICAID ==
[~2022-09-21] VITALS: Ht 172.7 cm; Wt 77.3 kg
[2022-09-21 14:38] VITALS: BP 128/75
== END 2022-09-21 18:01 | disposition left against medical advice (07) ==
LOC: M ED 14:37
DX: Z53.21 Procedure and treatment not carried out due to patient leaving prior to being seen by health care provider (principal)

== ENCOUNTER 2022-09-23 13:04 | Emergency (ER) | payer MEDICARE, MEDICAID ==
[~2022-09-23] VITALS: Ht 172.7 cm; Wt 71.4 kg
[2022-09-23 13:05] VITALS: BP 139/81
== END 2022-09-23 16:27 | disposition left against medical advice (07) ==
LOC: M ED 13:04
DX: Z53.21 Procedure and treatment not carried out due to patient leaving prior to being seen by health care provider (principal)

== ENCOUNTER 2022-09-24 12:34 | Emergency (ER) | payer MEDICARE, MEDICAID ==
[~2022-09-24] VITALS: Ht 172.7 cm; Wt 77.3 kg
[2022-09-24 12:34] VITALS: BP 132/92
[2022-09-24 13:27] LABS: BASO % 0.5 % (0.0-1.0); EOS # 0.2 10^3/uL (0.0-0.5); HEMATOCRIT 44.3 % (42.0-52.0); HEMOGLOBIN 15.5 g/dl (13.5-17.5); LYMPH # 1.6 10^3/uL (1.5-5.0); LYMPH % 20.6 % (24.0-44.0); MEAN CORPUSCULAR HEMOGLOBIN 30.4 pg (27.0-33.0); MEAN CORPUSCULAR VOLUME 86.9 fl (80.0-96.0); MONO # 0.5 10^3/uL (0.0-0.8); NEUTROPHILS # 5.3 10^3/uL (1.5-8.5); NEUTROPHILS % 69.4 % (36.0-66.0); PLATELET COUNT, AUTOMATED 162 10^3/uL (150-450); WHITE BLOOD COUNT 7.7 10^3/uL (4.0-10.0)
[2022-09-24 14:10] LABS: CK-MB VALUE MASS 6.5 NG/ML (<3.6); MB/CK RELATIVE INDEX 4.96 (< OR =4)
[2022-09-24 14:30] LABS: ALBUMIN 3.3 GM/DL (3.2-5.2); BILIRUBIN,DIRECT 0.2 MG/DL (0.0-0.2); BILIRUBIN,TOTAL 0.5 MG/DL (0.2-1.0); CALCIUM LEVEL 8.8 MG/DL (8.5-10.1); CREATININE FOR GFR 1.45 MG/DL (0.70-1.30); GLOMERULAR FILTRATION RATE 54.4 (>56); TOTAL PROTEIN 6.7 GM/DL (6.4-8.2)
== END 2022-09-24 16:24 | disposition left against medical advice (07) ==
LOC: M ED 12:34
DX: Z53.21 Procedure and treatment not carried out due to patient leaving prior to being seen by health care provider (principal)

== ENCOUNTER → 2022-10-04 | Outpatient (CLI) | payer MEDICARE, OTHER ==
[~2022-10-04] MED LIST changes: +INSULADS INJ; +JARD1TAB PO; +OMEP-173 PO; +OZEM2INJ SC
[2022-10-04 18:25] LABS: ALBUMIN 3.8 G/DL (3.2-5.2); ALKALINE PHOSPHATASE 92 U/L (46-116); ALT/SGPT 23 U/L (7.0-40); AST/SGOT 17 U/L (<34); BILIRUBIN,TOTAL 0.6 MG/DL (0.3-1.2); BLOOD UREA NITROGEN 27 MG/DL (9-23); CALCIUM LEVEL 10.3 MG/DL (8.5-10.1); CARBON DIOXIDE LEVEL 29 MMOL/L (20-31); CHLORIDE LEVEL 98 MMOL/L (98-107); CHOLESTEROL LEVEL 176 MG/DL (<200); CHOLESTEROL RISK RATIO 4.88 (<5); CREATININE FOR GFR 1.31 MG/DL (0.70-1.30); GLOMERULAR FILTRATION RATE > 60.0 (>56); GLUCOSE, FASTING 426 MG/DL (60-100); NON-HDL-C 140 MG/DL; POTASSIUM SERUM 4.6 MMOL/L (3.5-5.1); SODIUM LEVEL 136 MMOL/L (136-145); TOTAL PROTEIN 6.9 G/DL (5.7-8.2); TRIGLYCERIDES LEVEL 685 MG/DL (<150)
[2022-10-04 19:40] LABS: HEMOGLOBIN A1c 12.7 % (4.0-6.0)
== END ==
LOC: M PLALAB 15:56
PROVIDERS: ATTEND Family Medicine
DX: E11.65 Type 2 diabetes mellitus with hyperglycemia (principal); N18.9 Chronic kidney disease, unspecified; E78.2 Mixed hyperlipidemia

== ENCOUNTER → 2022-10-04 | Outpatient (REF) | payer MEDICARE, MEDICAID ==
[~2022-10-04] MED LIST changes: -JARD1TAB PO; -OMEP-173 PO; -OZEM2INJ SC
== END ==
LOC: M SFHCPLAZ 16:23
PROVIDERS: ATTEND Family Medicine
DX: E11.65 Type 2 diabetes mellitus with hyperglycemia (principal); N18.9 Chronic kidney disease, unspecified; E78.2 Mixed hyperlipidemia; Z53.8 Procedure and treatment not carried out for other reasons

== ENCOUNTER 2022-10-05 08:06 | Emergency (ER) | payer MEDICARE, MEDICAID ==
[~2022-10-05] VITALS: Ht 172.7 cm; Wt 74.5 kg
[~2022-10-05 08:06] MED LIST changes: -INSULADS INJ
[2022-10-05 08:09] VITALS: BP 156/78
[2022-10-05] MEDS ORDERED: INSULADS INJ (08:22)
== END 2022-10-05 11:34 | disposition left against medical advice (07) ==
LOC: M ED 08:06
DX: Z53.21 Procedure and treatment not carried out due to patient leaving prior to being seen by health care provider (principal)

== ENCOUNTER 2022-10-12 18:30 | Emergency (ER) | payer MEDICARE, MEDICAID ==
[~2022-10-12] VITALS: Ht 172.7 cm; Wt 77.2 kg
[~2022-10-12 18:30] MED LIST changes: +INSULADS INJ
[2022-10-12 22:54] LABS: BASO % 0.5 % (0.0-1.0); EOS # 0.2 10^3/uL (0.0-0.5); EOS % 3.2 % (0.0-3.0); HEMATOCRIT 43.8 % (42.0-52.0); HEMOGLOBIN 15.1 g/dl (13.5-17.5); LYMPH # 2.3 10^3/uL (1.5-5.0); LYMPH % 30.4 % (24.0-44.0); MEAN CORPUSCULAR HEMOGLOBIN 30.4 pg (27.0-33.0); MEAN CORPUSCULAR HGB CONC 34.5 g/dl (32.0-36.5); MEAN CORPUSCULAR VOLUME 88.3 fl (80.0-96.0); MONO # 0.8 10^3/uL (0.0-0.8); MONO % 10.4 % (2.0-8.0); NEUTROPHILS # 4.1 10^3/uL (1.5-8.5); NEUTROPHILS % 55.1 % (36.0-66.0); PLATELET COUNT, AUTOMATED 180 10^3/uL (150-450); RED BLOOD COUNT 4.96 10^6/uL (4.30-6.10); WHITE BLOOD COUNT 7.5 10^3/uL (4.0-10.0)
[2022-10-12] MEDS ORDERED: ISOVUE-370 76% 100ML VIAL As Ordered ONE (22:56)
[2022-10-13 00:03] VITALS: BP 124/88
[2022-10-14] MEDS ORDERED: OMEP-173 PO (22:39)
== END 2022-10-13 00:07 | disposition home or self-care (01) ==
LOC: M ED 18:30
DX: H92.02 Otalgia, left ear (principal); E11.9 Type 2 diabetes mellitus without complications; E78.5 Hyperlipidemia, unspecified; K21.9 Gastro-esophageal reflux disease without esophagitis; Z86.73 Personal history of transient ischemic attack (TIA), and cerebral infarction without residual deficits; Z87.19 Personal history of other diseases of the digestive system; Z79.4 Long term (current) use of insulin; Z79.82 Long term (current) use of aspirin; Z79.899 Other long term (current) drug therapy
CPT/HCPCS: 36415; 70450; 70496; 80047; 85025; 99283; Q9967

== ENCOUNTER 2022-10-14 18:45 | Emergency (ER) | payer MEDICARE, MEDICAID ==
[~2022-10-14] VITALS: Ht 172.7 cm; Wt 76.6 kg
[2022-10-14 20:17] LABS: BASO % 0.5 % (0.0-1.0); EOS # 0.2 10^3/uL (0.0-0.5); EOS % 2.8 % (0.0-3.0); HEMATOCRIT 44.4 % (42.0-52.0); HEMOGLOBIN 15.4 g/dl (13.5-17.5); LYMPH % 30.3 % (24.0-44.0); MEAN CORPUSCULAR HEMOGLOBIN 30.4 pg (27.0-33.0); MEAN CORPUSCULAR HGB CONC 34.7 g/dl (32.0-36.5); MEAN CORPUSCULAR VOLUME 87.7 fl (80.0-96.0); MONO # 0.8 10^3/uL (0.0-0.8); MONO % 11.6 % (2.0-8.0); NEUTROPHILS # 3.5 10^3/uL (1.5-8.5); NEUTROPHILS % 54.3 % (36.0-66.0); PLATELET COUNT, AUTOMATED 183 10^3/uL (150-450); RED BLOOD COUNT 5.06 10^6/uL (4.30-6.10); WHITE BLOOD COUNT 6.5 10^3/uL (4.0-10.0)
[2022-10-14] MEDS ORDERED: GI COCKTAIL 50ML BTL(HYOSCYAMINE/MAALOX/LIDOCAINE VISCOUS)(1:3:1) PO ONE (20:20)
[2022-10-14 20:59] LABS: CK-MB VALUE MASS 4.3 NG/ML (<3.6); MB/CK RELATIVE INDEX 2.41 (< OR =4)
[2022-10-14 21:01] LABS: ALBUMIN 3.5 G/DL (3.2-5.2); ALT/SGPT 30 U/L (7.0-40); BILIRUBIN,TOTAL 0.6 MG/DL (0.3-1.2); BLOOD UREA NITROGEN 20 MG/DL (9-23); CALCIUM LEVEL 8.3 MG/DL (8.5-10.1); CARBON DIOXIDE LEVEL 25 MMOL/L (20-31); CHLORIDE LEVEL 104 MMOL/L (98-107); CREATININE FOR GFR 1.27 MG/DL (0.70-1.30); ETHYL ALCOHOL (ETHANOL) 0.005 % (0.000-0.010); FREE T4 1.26 NG/DL (0.89-1.76); GLOMERULAR FILTRATION RATE > 60.0 (>56); GLUCOSE, FASTING 214 MG/DL (60-100); LIPASE 27 U/L (12-53); POTASSIUM SERUM 5.7 MMOL/L (3.5-5.1); SODIUM LEVEL 139 MMOL/L (136-145); THYROID STIMULATING HORMONE 1.102 uIU/ML (0.55-4.78); TOTAL PROTEIN 6.7 G/DL (5.7-8.2)
[2022-10-14 21:26] LABS: CK-MB VALUE MASS 3.9 NG/ML (<3.6); MB/CK RELATIVE INDEX 2.04 (< OR =4)
[2022-10-14] MEDS ORDERED: OMEP-173 PO (22:39)
[2022-10-14 23:01] VITALS: BP 150/80
== END 2022-10-14 23:03 | disposition home or self-care (01) ==
LOC: M ED 18:45
DX: R10.13 Epigastric pain (principal); E78.00 Pure hypercholesterolemia, unspecified; I10 Essential (primary) hypertension; K21.9 Gastro-esophageal reflux disease without esophagitis; N40.0 Benign prostatic hyperplasia without lower urinary tract symptoms; E11.9 Type 2 diabetes mellitus without complications; F41.9 Anxiety disorder, unspecified; F32.9 Major depressive disorder, single episode, unspecified; F43.10 Post-traumatic stress disorder, unspecified; Z87.440 Personal history of urinary (tract) infections; Z86.73 Personal history of transient ischemic attack (TIA), and cerebral infarction without residual deficits; Z79.82 Long term (current) use of aspirin; Z79.4 Long term (current) use of insulin; Z79.899 Other long term (current) drug therapy

== ENCOUNTER 2022-10-16 15:36 | Emergency (ER) | payer MEDICARE, MEDICAID ==
[~2022-10-16] VITALS: Ht 172.7 cm; Wt 77.3 kg
[~2022-10-16 15:36] MED LIST changes: +OMEP-173 PO
[2022-10-16 16:07] VITALS: BP 131/73
[2022-10-16 17:13] LABS: BASO % 0.4 % (0.0-1.0); EOS # 0.2 10^3/uL (0.0-0.5); EOS % 2.6 % (0.0-3.0); HEMATOCRIT 48.2 % (42.0-52.0); HEMOGLOBIN 16.4 g/dl (13.5-17.5); MEAN CORPUSCULAR HEMOGLOBIN 30.1 pg (27.0-33.0); MEAN CORPUSCULAR VOLUME 88.4 fl (80.0-96.0); MONO # 0.9 10^3/uL (0.0-0.8); MONO % 10.2 % (2.0-8.0); NEUTROPHILS # 5.2 10^3/uL (1.5-8.5); NEUTROPHILS % 62.3 % (36.0-66.0); PLATELET COUNT, AUTOMATED 198 10^3/uL (150-450); RED BLOOD COUNT 5.45 10^6/uL (4.30-6.10); WHITE BLOOD COUNT 8.4 10^3/uL (4.0-10.0)
[2022-10-16 17:24] LABS: INR 1.05; PROTHROMBIN TIME 13.9 SECONDS (12.5-14.5)
[2022-10-16 17:53] LABS: CHLORIDE LEVEL 100 MMOL/L (98-107); SODIUM LEVEL 136 MMOL/L (136-145)
[2022-10-16 17:54] LABS: ALBUMIN 3.8 G/DL (3.2-5.2); CARBON DIOXIDE LEVEL 28 MMOL/L (20-31)
[2022-10-16 17:59] LABS: BLOOD UREA NITROGEN 26 MG/DL (9-23); CALCIUM LEVEL 9.3 MG/DL (8.5-10.1); GLUCOSE, FASTING 278 MG/DL (60-100); LIPASE 26 U/L (12-53)
[2022-10-16 18:00] LABS: CK-MB VALUE MASS 6.2 NG/ML (<3.6)
[2022-10-16 18:01] LABS: ALT/SGPT 29 U/L (7.0-40); BILIRUBIN,DIRECT 0.3 MG/DL (<0.4); BILIRUBIN,TOTAL 0.8 MG/DL (0.3-1.2); CREATININE FOR GFR 1.21 MG/DL (0.70-1.30); GLOMERULAR FILTRATION RATE > 60.0 (>56); TOTAL PROTEIN 6.9 G/DL (5.7-8.2)
[2022-10-16 18:04] LABS: CPK CREATINE PHOSPHOKINASE 168 U/L (46-171); MB/CK RELATIVE INDEX 3.69 (< OR =4); POTASSIUM SERUM 4.4 MMOL/L (3.5-5.1)
[2022-10-17] MEDS ORDERED: ACET-683 PO (08:35)
== END 2022-10-16 22:58 | disposition left against medical advice (07) ==
LOC: M ED 15:36
DX: Z53.21 Procedure and treatment not carried out due to patient leaving prior to being seen by health care provider (principal)

== ENCOUNTER 2022-10-17 08:11 | Emergency (ER) | payer MEDICARE, MEDICAID ==
[~2022-10-17] VITALS: Ht 172.7 cm; Wt 77.3 kg
[2022-10-17 08:12] VITALS: BP 115/75
[2022-10-17] MEDS ORDERED: ACET-683 PO (08:35)
== END 2022-10-17 12:11 | disposition left against medical advice (07) ==
LOC: M ED 08:11
DX: Z53.21 Procedure and treatment not carried out due to patient leaving prior to being seen by health care provider (principal)

== ENCOUNTER 2022-10-18 09:11 | Emergency (ER) | payer MEDICARE, MEDICAID ==
[~2022-10-18] VITALS: Ht 172.7 cm; Wt 74.5 kg
[2022-10-18 09:11] VITALS: BP 128/80
== END 2022-10-18 10:30 | disposition left against medical advice (07) ==
LOC: M ED 09:11
DX: Z53.21 Procedure and treatment not carried out due to patient leaving prior to being seen by health care provider (principal)

== ENCOUNTER 2022-10-22 18:43 | Emergency (ER) | payer MEDICARE, MEDICAID ==
[~2022-10-22] VITALS: Ht 172.7 cm; Wt 74.1 kg
[2022-10-22 18:44] VITALS: BP 165/87
== END 2022-10-22 23:27 | disposition left against medical advice (07) ==
LOC: M ED 18:43
DX: Z53.21 Procedure and treatment not carried out due to patient leaving prior to being seen by health care provider (principal)

== ENCOUNTER 2022-10-26 19:57 | Emergency (ER) | payer MEDICARE, MEDICAID ==
[~2022-10-26] VITALS: Ht 172.7 cm; Wt 68.9 kg
[~2022-10-26 19:57] MED LIST changes: -JARD1TAB PO; -OZEM2INJ SC
[2022-10-26 20:51] LABS: BASO % 0.4 % (0.0-1.0); EOS # 0.2 10^3/uL (0.0-0.5); EOS % 2.1 % (0.0-3.0); HEMATOCRIT 47.4 % (42.0-52.0); HEMOGLOBIN 16.1 g/dl (13.5-17.5); LYMPH # 2.6 10^3/uL (1.5-5.0); LYMPH % 31.2 % (24.0-44.0); MEAN CORPUSCULAR HEMOGLOBIN 29.9 pg (27.0-33.0); MEAN CORPUSCULAR VOLUME 87.9 fl (80.0-96.0); MONO # 0.6 10^3/uL (0.0-0.8); MONO % 7.6 % (2.0-8.0); NEUTROPHILS # 4.8 10^3/uL (1.5-8.5); PLATELET COUNT, AUTOMATED 204 10^3/uL (150-450); RED BLOOD COUNT 5.39 10^6/uL (4.30-6.10); WHITE BLOOD COUNT 8.2 10^3/uL (4.0-10.0)
[2022-10-26 21:27] LABS: MB/CK RELATIVE INDEX 3.49 (< OR =4)
[2022-10-26 21:37] LABS: CALCIUM LEVEL 9.2 MG/DL (8.5-10.1); CREATININE FOR GFR 1.43 MG/DL (0.70-1.30); GLOMERULAR FILTRATION RATE 55.3 (>56); POTASSIUM SERUM 4.5 MMOL/L (3.5-5.1)
[2022-10-26 22:32] LABS: MB/CK RELATIVE INDEX 3.64 (< OR =4)
[2022-10-26 23:45] VITALS: BP 145/74
== END 2022-10-26 23:47 | disposition home or self-care (01) ==
LOC: M ED 19:57
DX: R07.9 Chest pain, unspecified (principal); I49.3 Ventricular premature depolarization; I10 Essential (primary) hypertension; E78.5 Hyperlipidemia, unspecified; F43.10 Post-traumatic stress disorder, unspecified; F31.9 Bipolar disorder, unspecified; K21.9 Gastro-esophageal reflux disease without esophagitis; Z86.73 Personal history of transient ischemic attack (TIA), and cerebral infarction without residual deficits; Z79.82 Long term (current) use of aspirin; Z79.899 Other long term (current) drug therapy
CPT/HCPCS: 36415; 71046; 80048; 82550; 82553; 84484; 85025; 93005; 99284; G0463

== ENCOUNTER → 2022-10-26 | Outpatient (CLI) | payer MEDICARE, MEDICAID ==
[~2022-10-26] MED LIST changes: +JARD1TAB PO; +LIDO15SO4 PO; -LIDO2SOL17 PO; +OZEM2INJ SC
== END ==
LOC: M PLAIMG 16:50
PROVIDERS: ATTEND Family Medicine
DX: R06.09 Other forms of dyspnea (principal)

== ENCOUNTER 2022-10-28 20:29 | Emergency (ER) | payer MEDICARE, MEDICAID ==
[~2022-10-28] VITALS: Ht 172.7 cm; Wt 76.1 kg
[~2022-10-28 20:29] MED LIST changes: -LIDO15SO4 PO; +LIDO2SOL17 PO
[2022-10-28 20:32] VITALS: BP 130/88
[2022-10-28] MEDS ORDERED: METF-838 PO (20:41)
[2022-10-28] MEDS ORDERED: OZEM2INJ SC (20:41)
[2022-10-29] MEDS ORDERED: JARD1TAB PO (16:28)
== END 2022-10-29 00:51 | disposition left against medical advice (07) ==
LOC: M ED 20:29
DX: Z53.21 Procedure and treatment not carried out due to patient leaving prior to being seen by health care provider (principal)

== ENCOUNTER 2022-10-29 16:11 | Emergency (ER) | payer MEDICARE, MEDICAID ==
[~2022-10-29] VITALS: Ht 172.7 cm; Wt 72.7 kg
[~2022-10-29 16:11] MED LIST changes: +OZEM2INJ SC
[2022-10-29 16:13] VITALS: BP 138/92
[2022-10-29] MEDS ORDERED: JARD1TAB PO (16:28)
== END 2022-10-29 22:25 | disposition left against medical advice (07) ==
LOC: M ED 16:11
DX: Z53.21 Procedure and treatment not carried out due to patient leaving prior to being seen by health care provider (principal)

== ENCOUNTER 2022-10-30 07:12 | Emergency (ER) | payer MEDICARE, MEDICAID ==
[~2022-10-30] VITALS: Ht 172.7 cm; Wt 73.1 kg
[~2022-10-30 07:12] MED LIST changes: +JARD1TAB PO
[2022-10-30 07:13] VITALS: BP 136/83
== END 2022-10-30 09:30 | disposition left against medical advice (07) ==
LOC: M ED 07:12
DX: Z53.21 Procedure and treatment not carried out due to patient leaving prior to being seen by health care provider (principal)

== ENCOUNTER 2022-10-31 03:42 | Emergency (ER) | payer MEDICARE, MEDICAID ==
[~2022-10-31] VITALS: Ht 172.7 cm; Wt 77.3 kg
[2022-10-31 03:42] VITALS: BP 125/85
[2022-10-31 04:57] LABS: BASO % 0.4 % (0.0-1.0); EOS # 0.2 10^3/uL (0.0-0.5); EOS % 2.3 % (0.0-3.0); HEMATOCRIT 51.8 % (42.0-52.0); HEMOGLOBIN 17.7 g/dl (13.5-17.5); LYMPH # 2.4 10^3/uL (1.5-5.0); MEAN CORPUSCULAR HEMOGLOBIN 30.4 pg (27.0-33.0); MEAN CORPUSCULAR HGB CONC 34.2 g/dl (32.0-36.5); MEAN CORPUSCULAR VOLUME 88.9 fl (80.0-96.0); MONO # 0.7 10^3/uL (0.0-0.8); MONO % 8.4 % (2.0-8.0); NEUTROPHILS # 4.9 10^3/uL (1.5-8.5); NEUTROPHILS % 59.3 % (36.0-66.0); PLATELET COUNT, AUTOMATED 195 10^3/uL (150-450); RED BLOOD COUNT 5.83 10^6/uL (4.30-6.10); WHITE BLOOD COUNT 8.3 10^3/uL (4.0-10.0)
[2022-10-31 05:21] LABS: CK-MB VALUE MASS 4.8 NG/ML (<3.6)
[2022-10-31 05:24] LABS: BLOOD UREA NITROGEN 21 MG/DL (9-23); CALCIUM LEVEL 9.5 MG/DL (8.5-10.1); CARBON DIOXIDE LEVEL 29 MMOL/L (20-31); CHLORIDE LEVEL 104 MMOL/L (98-107); CPK CREATINE PHOSPHOKINASE 118 U/L (46-171); CREATININE FOR GFR 1.29 MG/DL (0.70-1.30); GLOMERULAR FILTRATION RATE > 60.0 (>56); GLUCOSE, FASTING 239 MG/DL (60-100); MB/CK RELATIVE INDEX 4.06 (< OR =4); POTASSIUM SERUM 5.3 MMOL/L (3.5-5.1); SODIUM LEVEL 139 MMOL/L (136-145)
[2022-10-31 06:25] LABS: CK-MB VALUE MASS 4.7 NG/ML (<3.6)
[2022-10-31 06:26] LABS: MB/CK RELATIVE INDEX 3.61 (< OR =4)
== END 2022-10-31 08:05 | disposition left against medical advice (07) ==
LOC: M ED 03:42
DX: Z53.21 Procedure and treatment not carried out due to patient leaving prior to being seen by health care provider (principal)

== ENCOUNTER 2022-10-31 16:01 | Emergency (ER) | payer MEDICARE, MEDICAID ==
[~2022-10-31] VITALS: Ht 172.7 cm; Wt 72.8 kg
[2022-10-31 17:31] LABS: BASO % 0.2 % (0.0-1.0); EOS # 0.1 10^3/uL (0.0-0.5); EOS % 1.6 % (0.0-3.0); HEMATOCRIT 51.8 % (42.0-52.0); HEMOGLOBIN 17.5 g/dl (13.5-17.5); LYMPH # 2.6 10^3/uL (1.5-5.0); LYMPH % 29.1 % (24.0-44.0); MEAN CORPUSCULAR HEMOGLOBIN 30.2 pg (27.0-33.0); MEAN CORPUSCULAR HGB CONC 33.8 g/dl (32.0-36.5); MEAN CORPUSCULAR VOLUME 89.3 fl (80.0-96.0); MONO # 0.7 10^3/uL (0.0-0.8); MONO % 7.7 % (2.0-8.0); NEUTROPHILS # 5.5 10^3/uL (1.5-8.5); NEUTROPHILS % 61.2 % (36.0-66.0); PLATELET COUNT, AUTOMATED 213 10^3/uL (150-450); WHITE BLOOD COUNT 8.9 10^3/uL (4.0-10.0)
[2022-10-31 17:55] LABS: LIPASE 27 U/L (12-53)
[2022-10-31 17:56] LABS: BILIRUBIN,DIRECT 0.4 MG/DL (<0.4); CPK CREATINE PHOSPHOKINASE 99 U/L (46-171); MAGNESIUM LEVEL 2.2 MG/DL (1.8-2.4)
[2022-10-31 17:57] LABS: ALKALINE PHOSPHATASE 86 U/L (46-116); ALT/SGPT 24 U/L (7.0-40); AST/SGOT 20 U/L (<34); BLOOD UREA NITROGEN 19 MG/DL (9-23); CALCIUM LEVEL 9.6 MG/DL (8.5-10.1); CARBON DIOXIDE LEVEL 28 MMOL/L (20-31); CHLORIDE LEVEL 103 MMOL/L (98-107); CK-MB VALUE MASS 3.2 NG/ML (<3.6); CREATININE FOR GFR 1.16 MG/DL (0.70-1.30); GLOMERULAR FILTRATION RATE > 60.0 (>56); GLUCOSE, FASTING 245 MG/DL (60-100); MB/CK RELATIVE INDEX 3.23 (< OR =4); PHOSPHORUS LEVEL 4.3 MG/DL (2.5-4.9); POTASSIUM SERUM 4.5 MMOL/L (3.5-5.1); SODIUM LEVEL 137 MMOL/L (136-145); TOTAL PROTEIN 7.7 G/DL (5.7-8.2)
[2022-10-31 17:58] LABS: FREE T4 1.27 NG/DL (0.89-1.76)
[2022-10-31 17:59] LABS: THYROID STIMULATING HORMONE 0.964 uIU/ML (0.55-4.78)
[2022-10-31 19:39] VITALS: BP 148/84
== END 2022-10-31 19:40 | disposition home or self-care (01) ==
LOC: M ED 16:01
DX: R07.89 Other chest pain (principal); E11.9 Type 2 diabetes mellitus without complications; I10 Essential (primary) hypertension; E78.5 Hyperlipidemia, unspecified; Z86.73 Personal history of transient ischemic attack (TIA), and cerebral infarction without residual deficits; Z87.440 Personal history of urinary (tract) infections; Z82.49 Family history of ischemic heart disease and other diseases of the circulatory system; Z79.82 Long term (current) use of aspirin; Z79.4 Long term (current) use of insulin; Z79.84 Long term (current) use of oral hypoglycemic drugs; Z79.899 Other long term (current) drug therapy

== ENCOUNTER 2022-11-01 19:23 | Emergency (ER) | payer MEDICARE, MEDICAID ==
[~2022-11-01] VITALS: Ht 172.7 cm; Wt 94.6 kg
[2022-11-01 19:24] VITALS: BP 134/88
== END 2022-11-01 23:17 | disposition left against medical advice (07) ==
LOC: M ED 19:23
DX: Z53.21 Procedure and treatment not carried out due to patient leaving prior to being seen by health care provider (principal)

== ENCOUNTER 2022-11-02 18:50 | Emergency (ER) | payer MEDICARE, MEDICAID ==
[~2022-11-02] VITALS: Ht 172.7 cm; Wt 77.3 kg
[2022-11-02 18:52] VITALS: BP 160/90
== END 2022-11-02 20:30 | disposition left against medical advice (07) ==
LOC: M ED 18:50
DX: Z53.21 Procedure and treatment not carried out due to patient leaving prior to being seen by health care provider (principal)

== ENCOUNTER 2022-11-03 03:37 | Emergency (ER) | payer MEDICARE, MEDICAID ==
[~2022-11-03] VITALS: Ht 172.7 cm; Wt 77.3 kg
[2022-11-03 03:37] VITALS: BP 138/76
== END 2022-11-03 06:19 | disposition left against medical advice (07) ==
LOC: M ED 03:37
DX: Z53.21 Procedure and treatment not carried out due to patient leaving prior to being seen by health care provider (principal)

== ENCOUNTER 2022-11-04 12:38 | Emergency (ER) | payer MEDICARE, MEDICAID ==
[~2022-11-04] VITALS: Ht 172.7 cm; Wt 74.9 kg
[2022-11-04 12:40] VITALS: BP 121/68
== END 2022-11-04 14:45 | disposition left against medical advice (07) ==
LOC: M ED 12:38
DX: Z53.21 Procedure and treatment not carried out due to patient leaving prior to being seen by health care provider (principal)

== ENCOUNTER 2022-11-07 07:03 | Emergency (ER) | payer MEDICARE, MEDICAID ==
[~2022-11-07] VITALS: Ht 172.7 cm; Wt 75.0 kg
[2022-11-07 10:31] LABS: BASO % 0.3 % (0.0-1.0); EOS # 0.1 10^3/uL (0.0-0.5); EOS % 1.2 % (0.0-3.0); HEMATOCRIT 48.7 % (42.0-52.0); HEMOGLOBIN 16.5 g/dl (13.5-17.5); LYMPH % 27.1 % (24.0-44.0); MEAN CORPUSCULAR HEMOGLOBIN 29.9 pg (27.0-33.0); MEAN CORPUSCULAR HGB CONC 33.9 g/dl (32.0-36.5); MEAN CORPUSCULAR VOLUME 88.2 fl (80.0-96.0); MONO # 0.6 10^3/uL (0.0-0.8); MONO % 7.3 % (2.0-8.0); NEUTROPHILS # 4.8 10^3/uL (1.5-8.5); NEUTROPHILS % 63.7 % (36.0-66.0); PLATELET COUNT, AUTOMATED 191 10^3/uL (150-450); RED BLOOD COUNT 5.52 10^6/uL (4.30-6.10); WHITE BLOOD COUNT 7.5 10^3/uL (4.0-10.0)
[2022-11-07 11:00] VITALS: BP 101/68
[2022-11-07 18:55] LABS: CPK CREATINE PHOSPHOKINASE 141 U/L (46-171)
[2022-11-07 18:56] LABS: BLOOD UREA NITROGEN 19 MG/DL (9-23); CALCIUM LEVEL 8.8 MG/DL (8.5-10.1); CARBON DIOXIDE LEVEL 28 MMOL/L (20-31); CHLORIDE LEVEL 104 MMOL/L (98-107); CK-MB VALUE MASS 4.8 NG/ML (<3.6); CREATININE FOR GFR 1.07 MG/DL (0.70-1.30); GLOMERULAR FILTRATION RATE > 60.0 (>56); GLUCOSE, FASTING 131 MG/DL (60-100); POTASSIUM SERUM 4.4 MMOL/L (3.5-5.1); SODIUM LEVEL 139 MMOL/L (136-145)
== END 2022-11-07 11:57 | disposition left against medical advice (07) ==
LOC: M ED 07:03
DX: R07.9 Chest pain, unspecified (principal); Z79.4 Long term (current) use of insulin; Z79.899 Other long term (current) drug therapy; Z79.82 Long term (current) use of aspirin

== ENCOUNTER 2022-11-09 07:35 | Emergency (ER) | payer MEDICARE, MEDICAID ==
[~2022-11-09] VITALS: Ht 172.7 cm; Wt 76.1 kg
[2022-11-09 07:35] VITALS: BP 135/77
== END 2022-11-09 11:10 | disposition left against medical advice (07) ==
LOC: M ED 07:35
DX: Z53.21 Procedure and treatment not carried out due to patient leaving prior to being seen by health care provider (principal)

== ENCOUNTER 2022-11-12 05:11 | Emergency (ER) | payer MEDICARE, MEDICAID ==
[~2022-11-12] VITALS: Ht 172.7 cm; Wt 75.5 kg
[2022-11-12 05:14] VITALS: BP 131/93
== END 2022-11-12 06:41 | disposition left against medical advice (07) ==
LOC: M ED 05:11
DX: Z53.21 Procedure and treatment not carried out due to patient leaving prior to being seen by health care provider (principal)

== ENCOUNTER 2022-11-26 23:02 | Emergency (ER) | payer MEDICARE, MEDICAID ==
[~2022-11-26] VITALS: Ht 172.7 cm; Wt 75.2 kg
[2022-11-26 23:06] VITALS: BP 134/78
[2022-11-26 23:50] LABS: BASO % 0.4 % (0.0-1.0); EOS # 0.2 10^3/uL (0.0-0.5); EOS % 1.8 % (0.0-3.0); HEMATOCRIT 47.2 % (42.0-52.0); HEMOGLOBIN 16.2 g/dl (13.5-17.5); LYMPH # 3.6 10^3/uL (1.5-5.0); LYMPH % 36.7 % (24.0-44.0); MEAN CORPUSCULAR HEMOGLOBIN 30.5 pg (27.0-33.0); MEAN CORPUSCULAR HGB CONC 34.3 g/dl (32.0-36.5); MEAN CORPUSCULAR VOLUME 88.7 fl (80.0-96.0); MONO # 0.8 10^3/uL (0.0-0.8); MONO % 7.8 % (2.0-8.0); NEUTROPHILS # 5.1 10^3/uL (1.5-8.5); NEUTROPHILS % 52.9 % (36.0-66.0); PLATELET COUNT, AUTOMATED 193 10^3/uL (150-450); RED BLOOD COUNT 5.32 10^6/uL (4.30-6.10); WHITE BLOOD COUNT 9.7 10^3/uL (4.0-10.0)
[2022-11-27 00:01] LABS: INR 1.04; PROTHROMBIN TIME 13.8 SECONDS (12.5-14.5)
[2022-11-27 00:15] LABS: LIPASE 22 U/L (12-53)
[2022-11-27 00:18] LABS: ALBUMIN 3.7 G/DL (3.2-5.2); ALKALINE PHOSPHATASE 69 U/L (46-116); ALT/SGPT 18 U/L (7.0-40); AST/SGOT 24 U/L (<34); BILIRUBIN,DIRECT 0.2 MG/DL (<0.4); BILIRUBIN,TOTAL 0.7 MG/DL (0.3-1.2); BLOOD UREA NITROGEN 22 MG/DL (9-23); CARBON DIOXIDE LEVEL 26 MMOL/L (20-31); CHLORIDE LEVEL 104 MMOL/L (98-107); CK-MB VALUE MASS 3.6 NG/ML (<3.6); CREATININE FOR GFR 1.31 MG/DL (0.70-1.30); GLOMERULAR FILTRATION RATE > 60.0 (>56); GLUCOSE, FASTING 130 MG/DL (60-100); POTASSIUM SERUM 3.9 MMOL/L (3.5-5.1); SODIUM LEVEL 139 MMOL/L (136-145)
[2022-11-27 00:21] LABS: CPK CREATINE PHOSPHOKINASE 178 U/L (46-171); MB/CK RELATIVE INDEX 2.02 (< OR =4)
[2022-11-27 01:26] LABS: CK-MB VALUE MASS 3.8 NG/ML (<3.6)
[2022-11-27 01:30] LABS: MB/CK RELATIVE INDEX 2.36 (< OR =4)
== END 2022-11-27 03:35 | disposition left against medical advice (07) ==
LOC: M ED 23:02
DX: Z53.21 Procedure and treatment not carried out due to patient leaving prior to being seen by health care provider (principal)

== ENCOUNTER 2022-12-03 06:37 | Emergency (ER) | payer MEDICARE, MEDICAID ==
[~2022-12-03] VITALS: Ht 172.7 cm; Wt 73.2 kg
[2022-12-03 06:37] VITALS: BP 127/71
[2022-12-03 07:40] LABS: CK-MB VALUE MASS 5.8 NG/ML (<3.6)
[2022-12-03 07:42] LABS: MB/CK RELATIVE INDEX 4.29 (< OR =4)
== END 2022-12-03 08:20 | disposition left against medical advice (07) ==
LOC: M ED 06:37
DX: Z53.21 Procedure and treatment not carried out due to patient leaving prior to being seen by health care provider (principal)

== ENCOUNTER 2022-12-03 17:32 | Emergency (ER) | payer MEDICARE, MEDICAID ==
[~2022-12-03] VITALS: Ht 172.7 cm; Wt 75.0 kg
[2022-12-03 17:32] VITALS: BP 134/79
== END 2022-12-03 23:23 | disposition left against medical advice (07) ==
LOC: M ED 17:32
DX: Z53.21 Procedure and treatment not carried out due to patient leaving prior to being seen by health care provider (principal)

== ENCOUNTER 2022-12-05 23:24 | Emergency (ER) | payer MEDICARE, MEDICAID ==
[~2022-12-05] VITALS: Ht 172.7 cm; Wt 75.7 kg
[2022-12-05 23:28] VITALS: BP 110/68
== END 2022-12-06 01:30 | disposition left against medical advice (07) ==
LOC: M ED 23:24
DX: Z53.21 Procedure and treatment not carried out due to patient leaving prior to being seen by health care provider (principal)

== ENCOUNTER 2022-12-08 20:52 | Emergency (ER) | payer MEDICARE, MEDICAID ==
[~2022-12-08] VITALS: Ht 172.7 cm; Wt 76.2 kg
[2022-12-08 20:55] VITALS: BP 136/83
== END 2022-12-09 00:56 | disposition left against medical advice (07) ==
LOC: M ED 20:52
DX: Z53.21 Procedure and treatment not carried out due to patient leaving prior to being seen by health care provider (principal)

== ENCOUNTER 2022-12-15 20:27 | Emergency (ER) | payer MEDICARE, MEDICAID ==
[~2022-12-15] VITALS: Ht 172.7 cm; Wt 76.4 kg
[2022-12-15 20:27] VITALS: BP 139/72
== END 2022-12-16 02:56 | disposition left against medical advice (07) ==
LOC: M ED 20:27
DX: Z53.21 Procedure and treatment not carried out due to patient leaving prior to being seen by health care provider (principal)

== ENCOUNTER 2022-12-17 08:49 | Emergency (ER) | payer MEDICARE, MEDICAID ==
[~2022-12-17] VITALS: Ht 172.7 cm; Wt 74.5 kg
[2022-12-17 08:50] VITALS: BP 136/77
== END 2022-12-17 11:03 | disposition left against medical advice (07) ==
LOC: M ED 08:49
DX: Z53.21 Procedure and treatment not carried out due to patient leaving prior to being seen by health care provider (principal)

== ENCOUNTER 2022-12-23 23:03 | Emergency (ER) | payer MEDICARE, MEDICAID ==
[~2022-12-23] VITALS: Ht 172.7 cm; Wt 74.6 kg
[~2022-12-23 23:03] MED LIST changes: +LIDO15SO4 PO; -LIDO2SOL17 PO
[2022-12-23 23:05] VITALS: BP 118/67
== END 2022-12-24 00:26 | disposition left against medical advice (07) ==
LOC: M ED 23:03
DX: Z53.21 Procedure and treatment not carried out due to patient leaving prior to being seen by health care provider (principal)

== ENCOUNTER 2022-12-28 08:27 | Emergency (ER) | payer MEDICARE, MEDICAID ==
[~2022-12-28] VITALS: Ht 172.7 cm; Wt 74.3 kg
[2022-12-28 08:27] VITALS: BP 142/76
[2022-12-28] MEDS ORDERED: GI COCKTAIL 50ML BTL(HYOSCYAMINE/MAALOX/LIDOCAINE VISCOUS)(1:3:1) PO ONE (10:05)
[2022-12-28] MEDS ORDERED: LIDOCAINE 5% (LIDODERM) PATCH TD ONE (10:05)
[2022-12-28 10:32] LABS: BASO % 0.3 % (0.0-1.0); EOS # 0.1 10^3/uL (0.0-0.5); EOS % 1.2 % (0.0-3.0); HEMATOCRIT 48.8 % (42.0-52.0); LYMPH # 2.4 10^3/uL (1.5-5.0); MEAN CORPUSCULAR HEMOGLOBIN 30.5 pg (27.0-33.0); MEAN CORPUSCULAR HGB CONC 34.8 g/dl (32.0-36.5); MEAN CORPUSCULAR VOLUME 87.5 fl (80.0-96.0); MONO # 0.7 10^3/uL (0.0-0.8); MONO % 7.7 % (2.0-8.0); NEUTROPHILS # 5.9 10^3/uL (1.5-8.5); NEUTROPHILS % 64.4 % (36.0-66.0); PLATELET COUNT, AUTOMATED 183 10^3/uL (150-450); RED BLOOD COUNT 5.58 10^6/uL (4.30-6.10); WHITE BLOOD COUNT 9.2 10^3/uL (4.0-10.0)
[2022-12-28 10:55] LABS: CK-MB VALUE MASS 4.7 NG/ML (<3.6)
[2022-12-28 10:56] LABS: ALBUMIN 3.9 G/DL (3.2-5.2); ALKALINE PHOSPHATASE 82 U/L (46-116); ALT/SGPT 24 U/L (7.0-40); AST/SGOT 19 U/L (<34); BILIRUBIN,TOTAL 0.9 MG/DL (0.3-1.2); BLOOD UREA NITROGEN 21 MG/DL (9-23); CALCIUM LEVEL 9.4 MG/DL (8.5-10.1); CARBON DIOXIDE LEVEL 27 MMOL/L (20-31); CHLORIDE LEVEL 106 MMOL/L (98-107); CREATININE FOR GFR 1.11 MG/DL (0.70-1.30); GLOMERULAR FILTRATION RATE > 60.0 (>56); GLUCOSE, FASTING 288 MG/DL (60-100); POTASSIUM SERUM 4.4 MMOL/L (3.5-5.1); SODIUM LEVEL 139 MMOL/L (136-145)
[2022-12-28 10:57] LABS: CPK CREATINE PHOSPHOKINASE 139 U/L (46-171); MB/CK RELATIVE INDEX 3.38 (< OR =4)
== END 2022-12-28 11:32 | disposition left against medical advice (07) ==
LOC: M ED 08:27
DX: R07.9 Chest pain, unspecified (principal); E11.9 Type 2 diabetes mellitus without complications; I10 Essential (primary) hypertension; E78.5 Hyperlipidemia, unspecified; M51.9 Unspecified thoracic, thoracolumbar and lumbosacral intervertebral disc disorder; Z79.4 Long term (current) use of insulin; Z79.82 Long term (current) use of aspirin; Z79.84 Long term (current) use of oral hypoglycemic drugs; Z79.899 Other long term (current) drug therapy; Z87.19 Personal history of other diseases of the digestive system; Z86.73 Personal history of transient ischemic attack (TIA), and cerebral infarction without residual deficits; Z90.49 Acquired absence of other specified parts of digestive tract; Z98.890 Other specified postprocedural states

== ENCOUNTER 2022-12-31 01:12 | Emergency (ER) | payer MEDICARE, MEDICAID ==
[~2022-12-31] VITALS: Ht 172.7 cm; Wt 77.0 kg
[2022-12-31 01:12] VITALS: BP 141/78
== END 2022-12-31 02:57 | disposition left against medical advice (07) ==
LOC: M ED 01:12
DX: Z53.21 Procedure and treatment not carried out due to patient leaving prior to being seen by health care provider (principal)

== ENCOUNTER → 2023-01-04 | Outpatient (CLI) | payer MEDICARE, MEDICAID ==
[2023-01-04 13:05] LABS: BLOOD UREA NITROGEN 29 MG/DL (9-23); CARBON DIOXIDE LEVEL 29 MMOL/L (20-31); CHLORIDE LEVEL 103 MMOL/L (98-107); CREATININE FOR GFR 1.22 MG/DL (0.70-1.30); GLOMERULAR FILTRATION RATE > 60.0 (>56); GLUCOSE, FASTING 309 MG/DL (60-100); HEMOGLOBIN A1c 9.3 % (4.0-6.0); POTASSIUM SERUM 4.4 MMOL/L (3.5-5.1); SODIUM LEVEL 135 MMOL/L (136-145)
== END ==
LOC: M PLALAB 08:51
PROVIDERS: ATTEND Family Medicine
DX: E11.65 Type 2 diabetes mellitus with hyperglycemia (principal); E11.21 Type 2 diabetes mellitus with diabetic nephropathy; N18.31 Chronic kidney disease, stage 3a

== ENCOUNTER 2023-01-06 10:59 | Emergency (ER) | payer MEDICARE, MEDICAID ==
[~2023-01-06] VITALS: Ht 170.2 cm; Wt 76.9 kg
[2023-01-06 11:01] VITALS: BP 133/78
[2023-01-06] MEDS ORDERED: METO1TAB32 (11:06)
[2023-01-06] MEDS ORDERED: methocarbamoL 750 MG TAB PO ONE (12:25)
[2023-01-06] MEDS ORDERED: METH-1165 PO (12:28)
== END 2023-01-06 13:24 | disposition home or self-care (01) ==
LOC: M ED 10:59
DX: M54.2 Cervicalgia (principal); E11.9 Type 2 diabetes mellitus without complications; I10 Essential (primary) hypertension; F43.10 Post-traumatic stress disorder, unspecified; F31.9 Bipolar disorder, unspecified; E78.5 Hyperlipidemia, unspecified; Z79.82 Long term (current) use of aspirin; Z79.4 Long term (current) use of insulin; Z79.899 Other long term (current) drug therapy

== ENCOUNTER 2023-01-09 14:18 | Emergency (ER) | payer MEDICARE, MEDICAID ==
[~2023-01-09] VITALS: Ht 172.7 cm; Wt 77.2 kg
[2023-01-09 14:18] VITALS: BP 167/106
[~2023-01-09 14:18] MED LIST changes: +METH-1165 PO; +METO1TAB32
== END 2023-01-09 14:34 | disposition left against medical advice (07) ==
LOC: M ED 14:18
DX: Z53.21 Procedure and treatment not carried out due to patient leaving prior to being seen by health care provider (principal)

== ENCOUNTER 2023-01-13 18:07 | Emergency (ER) | payer MEDICARE, MEDICAID ==
[~2023-01-13] VITALS: Ht 172.7 cm; Wt 77.7 kg
[~2023-01-13 18:07] MED LIST changes: +INSU100I6 SC; -LEVE1INJ5 SC
[2023-01-13] MEDS ORDERED: NS 1,000 ML IV ONE (19:55)
[2023-01-13] MEDS ORDERED: ACETAMINOPHEN 500 MG TAB PO ONE (19:55)
[2023-01-13 20:23] LABS: BASO % 0.4 % (0.0-1.0); EOS # 0.2 10^3/uL (0.0-0.5); EOS % 1.9 % (0.0-3.0); HEMATOCRIT 47.1 % (42.0-52.0); HEMOGLOBIN 16.6 g/dl (13.5-17.5); LYMPH # 2.8 10^3/uL (1.5-5.0); LYMPH % 35.2 % (24.0-44.0); MEAN CORPUSCULAR HEMOGLOBIN 31.3 pg (27.0-33.0); MEAN CORPUSCULAR HGB CONC 35.2 g/dl (32.0-36.5); MEAN CORPUSCULAR VOLUME 88.7 fl (80.0-96.0); MONO # 0.6 10^3/uL (0.0-0.8); NEUTROPHILS # 4.3 10^3/uL (1.5-8.5); PLATELET COUNT, AUTOMATED 174 10^3/uL (150-450); RED BLOOD COUNT 5.31 10^6/uL (4.30-6.10)
[2023-01-13 21:01] LABS: ALBUMIN 3.5 G/DL (3.2-5.2); BILIRUBIN,DIRECT 0.1 MG/DL (<0.4); BILIRUBIN,TOTAL 0.6 MG/DL (0.3-1.2); TOTAL PROTEIN 6.5 G/DL (5.7-8.2)
[2023-01-13] MEDS ORDERED: ISOVUE-370 76% 100ML VIAL As Ordered ONE (21:43)
[2023-01-13 21:45] VITALS: BP 145/74
[2023-01-13 21:50] LABS: GC DNA AMPLIFICATION NEGATIVE (NEGATIVE)
== END 2023-01-13 23:22 | disposition home or self-care (01) ==
LOC: M ED 18:07
DX: N40.0 Benign prostatic hyperplasia without lower urinary tract symptoms (principal); R10.32 Left lower quadrant pain; N50.812 Left testicular pain; K57.30 Diverticulosis of large intestine without perforation or abscess without bleeding; E11.9 Type 2 diabetes mellitus without complications; F41.9 Anxiety disorder, unspecified; F31.9 Bipolar disorder, unspecified; F43.10 Post-traumatic stress disorder, unspecified; E78.5 Hyperlipidemia, unspecified; K21.9 Gastro-esophageal reflux disease without esophagitis; R16.1 Splenomegaly, not elsewhere classified; Z86.73 Personal history of transient ischemic attack (TIA), and cerebral infarction without residual deficits; Z79.4 Long term (current) use of insulin; Z79.82 Long term (current) use of aspirin; Z79.899 Other long term (current) drug therapy
CPT/HCPCS: 74177; 76870; 80076; 81001; 83690; 85025; 87661; 87810; 87850; 93976; 96360; 96361; 99284; Q9967

== ENCOUNTER 2023-01-21 20:30 | Emergency (ER) | payer MEDICARE, MEDICAID ==
[~2023-01-21] VITALS: Ht 175.3 cm; Wt 77.1 kg
[2023-01-21 22:05] VITALS: BP 138/82
== END 2023-01-21 23:18 | disposition left against medical advice (07) ==
LOC: M ED 20:30
DX: Z53.21 Procedure and treatment not carried out due to patient leaving prior to being seen by health care provider (principal)

== ENCOUNTER 2023-01-24 10:29 | Emergency (ER) | payer MEDICARE, MEDICAID ==
[~2023-01-24] VITALS: Ht 172.7 cm; Wt 76.7 kg
[2023-01-24 10:31] VITALS: BP 137/76
[2023-01-24 11:35] LABS: BASO % 0.3 % (0.0-1.0); EOS # 0.2 10^3/uL (0.0-0.5); EOS % 1.8 % (0.0-3.0); HEMATOCRIT 49.5 % (42.0-52.0); HEMOGLOBIN 17.3 g/dl (13.5-17.5); LYMPH # 2.6 10^3/uL (1.5-5.0); LYMPH % 27.9 % (24.0-44.0); MEAN CORPUSCULAR HEMOGLOBIN 31.3 pg (27.0-33.0); MEAN CORPUSCULAR HGB CONC 34.9 g/dl (32.0-36.5); MEAN CORPUSCULAR VOLUME 89.7 fl (80.0-96.0); MONO # 0.7 10^3/uL (0.0-0.8); MONO % 7.2 % (2.0-8.0); NEUTROPHILS # 5.7 10^3/uL (1.5-8.5); NEUTROPHILS % 62.3 % (36.0-66.0); PLATELET COUNT, AUTOMATED 185 10^3/uL (150-450); RED BLOOD COUNT 5.52 10^6/uL (4.30-6.10); WHITE BLOOD COUNT 9.1 10^3/uL (4.0-10.0)
[2023-01-24 11:57] LABS: LIPASE 21 U/L (12-53)
[2023-01-24 12:03] LABS: ALBUMIN 3.7 G/DL (3.2-5.2); ALKALINE PHOSPHATASE 77 U/L (46-116); ALT/SGPT 26 U/L (7.0-40); AST/SGOT 22 U/L (<34); BILIRUBIN,DIRECT 0.3 MG/DL (<0.4); BLOOD UREA NITROGEN 24 MG/DL (9-23); CALCIUM LEVEL 9.3 MG/DL (8.5-10.1); CARBON DIOXIDE LEVEL 28 MMOL/L (20-31); CHLORIDE LEVEL 104 MMOL/L (98-107); CREATININE FOR GFR 1.25 MG/DL (0.70-1.30); GLOMERULAR FILTRATION RATE > 60.0 (>56); GLUCOSE, FASTING 207 MG/DL (60-100); POTASSIUM SERUM 4.4 MMOL/L (3.5-5.1); SODIUM LEVEL 137 MMOL/L (136-145)
== END 2023-01-24 13:49 | disposition home or self-care (01) ==
LOC: M ED 10:29
DX: R10.9 Unspecified abdominal pain (principal); E11.9 Type 2 diabetes mellitus without complications; I10 Essential (primary) hypertension; E78.5 Hyperlipidemia, unspecified; K21.9 Gastro-esophageal reflux disease without esophagitis; M54.9 Dorsalgia, unspecified; Z86.73 Personal history of transient ischemic attack (TIA), and cerebral infarction without residual deficits; F41.9 Anxiety disorder, unspecified; F32.A Depression, unspecified; F43.10 Post-traumatic stress disorder, unspecified; Z79.82 Long term (current) use of aspirin; Z79.899 Other long term (current) drug therapy; Z79.4 Long term (current) use of insulin

== ENCOUNTER → 2023-01-25 | Outpatient (CLI) | payer MEDICARE, MEDICAID | LOC: M WHC 12:46 | PROVIDERS: ATTEND Physician Assistant | DX: E04.2 Nontoxic multinodular goiter (principal) ==

== ENCOUNTER → 2023-01-26 | Outpatient (CLI) | payer MEDICARE, MEDICAID ==
[2023-01-26 17:25] LABS: FREE T3 3.5 PG/ML (2.3-4.2); THYROID STIMULATING HORMONE 1.084 uIU/ML (0.55-4.78)
[2023-01-26 17:26] LABS: FREE T4 1.08 NG/DL (0.89-1.76)
[2023-01-26 17:29] LABS: THYROID PEROXIDASE ANTIBODY < 28.0 U/ML (<60.0)
== END ==
LOC: M PLALAB 15:47
PROVIDERS: ATTEND Physician Assistant
DX: E04.1 Nontoxic single thyroid nodule (principal); R19.7 Diarrhea, unspecified

== ENCOUNTER → 2023-01-29 | Outpatient (REF) | payer MEDICARE, MEDICAID ==
[2023-01-31 21:11] LABS: CALPROTECTIN STOOL 31 ug/g (0-120); H PYLORI STOOL ANTIGEN Negative (Negative)
== END ==
LOC: M SFHCPLAZ 10:03
PROVIDERS: ATTEND Physician Assistant
DX: R19.7 Diarrhea, unspecified (principal); E04.1 Nontoxic single thyroid nodule

== ENCOUNTER 2023-02-10 05:03 | Emergency (ER) | payer MEDICARE, MEDICAID ==
[~2023-02-10] VITALS: Ht 172.7 cm; Wt 78.9 kg
[2023-02-10 05:04] VITALS: BP 130/78
== END 2023-02-10 10:43 | disposition left against medical advice (07) ==
LOC: M ED 05:03
DX: R10.9 Unspecified abdominal pain (principal); Z53.21 Procedure and treatment not carried out due to patient leaving prior to being seen by health care provider

== ENCOUNTER 2023-02-13 19:09 | Emergency (ER) | payer MEDICARE, MEDICAID ==
[~2023-02-13] VITALS: Ht 172.7 cm; Wt 79.4 kg
[2023-02-13 19:10] VITALS: BP 170/68
== END 2023-02-13 23:40 | disposition left against medical advice (07) ==
LOC: M ED 19:09
DX: R10.9 Unspecified abdominal pain (principal); Z53.21 Procedure and treatment not carried out due to patient leaving prior to being seen by health care provider

== ENCOUNTER 2023-02-16 17:41 | Emergency (ER) | payer MEDICARE, MEDICAID ==
[~2023-02-16] VITALS: Ht 172.7 cm; Wt 77.9 kg
[2023-02-16] MEDS ORDERED: KETOROLAC 30 MG/ML 1ML VIAL IV ONE (19:15)
[2023-02-16] MEDS ORDERED: ONDANSETRON 4MG 2ML VIAL IV ONE (19:15)
[2023-02-16] MEDS ORDERED: ISOVUE-370 76% 100ML VIAL As Ordered ONE (19:17)
[2023-02-16 19:55] LABS: BASO % 0.3 % (0.0-1.0); EOS # 0.1 10^3/uL (0.0-0.5); EOS % 1.6 % (0.0-3.0); HEMATOCRIT 49.2 % (42.0-52.0); HEMOGLOBIN 17.5 g/dl (13.5-17.5); LYMPH # 3.1 10^3/uL (1.5-5.0); LYMPH % 34.7 % (24.0-44.0); MEAN CORPUSCULAR HGB CONC 35.6 g/dl (32.0-36.5); MEAN CORPUSCULAR VOLUME 87.2 fl (80.0-96.0); MONO # 0.8 10^3/uL (0.0-0.8); MONO % 8.6 % (2.0-8.0); NEUTROPHILS # 4.8 10^3/uL (1.5-8.5); PLATELET COUNT, AUTOMATED 201 10^3/uL (150-450); RED BLOOD COUNT 5.64 10^6/uL (4.30-6.10); WHITE BLOOD COUNT 8.9 10^3/uL (4.0-10.0)
[2023-02-16 20:18] LABS: ALBUMIN 3.7 G/DL (3.2-5.2); BILIRUBIN,DIRECT 0.2 MG/DL (<0.4); BILIRUBIN,TOTAL 0.8 MG/DL (0.3-1.2)
[2023-02-16] MEDS ORDERED: IBUP-1022 PO (21:39)
[2023-02-16 21:46] VITALS: BP 119/74
== END 2023-02-16 21:50 | disposition home or self-care (01) ==
LOC: M ED 17:41
DX: R10.9 Unspecified abdominal pain (principal); E11.9 Type 2 diabetes mellitus without complications; I10 Essential (primary) hypertension; K21.9 Gastro-esophageal reflux disease without esophagitis; R16.1 Splenomegaly, not elsewhere classified; Z86.73 Personal history of transient ischemic attack (TIA), and cerebral infarction without residual deficits; Z79.82 Long term (current) use of aspirin; Z79.899 Other long term (current) drug therapy
CPT/HCPCS: 74177; 80047; 80076; 81001; 83690; 85025; 96374; 96375; 99284; J1885; J2405; Q9967

== ENCOUNTER 2023-02-17 19:58 | Emergency (ER) | payer MEDICARE, MEDICAID ==
[~2023-02-17] VITALS: Ht 172.7 cm; Wt 78.6 kg
[2023-02-17 19:58] VITALS: BP 120/72
== END 2023-02-17 23:05 | disposition left against medical advice (07) ==
LOC: M ED 19:58
DX: R10.32 Left lower quadrant pain (principal); Z53.21 Procedure and treatment not carried out due to patient leaving prior to being seen by health care provider

== ENCOUNTER 2023-03-02 12:02 | Emergency (ER) | payer MEDICARE, MEDICAID ==
[~2023-03-02] VITALS: Ht 172.7 cm; Wt 78.8 kg
[2023-03-02 12:02] VITALS: BP 119/76
[~2023-03-02 12:02] MED LIST changes: +ASPI-655 PO; -ASPI1CHW3 PO; +LIDO15SO PO; -LIDO15SO4 PO
== END 2023-03-02 14:40 | disposition left against medical advice (07) ==
LOC: M ED 12:02
DX: R10.9 Unspecified abdominal pain (principal); Z53.21 Procedure and treatment not carried out due to patient leaving prior to being seen by health care provider

== ENCOUNTER 2023-03-11 10:56 | Emergency (ER) | payer MEDICARE, MEDICAID ==
[~2023-03-11] VITALS: Ht 172.7 cm; Wt 78.6 kg
[2023-03-11 11:35] VITALS: BP 128/78
== END 2023-03-11 12:14 | disposition home or self-care (01) ==
LOC: M ED 10:56
DX: R06.00 Dyspnea, unspecified (principal); E78.00 Pure hypercholesterolemia, unspecified; E11.9 Type 2 diabetes mellitus without complications; I10 Essential (primary) hypertension; F41.9 Anxiety disorder, unspecified; F32.A Depression, unspecified; Z86.73 Personal history of transient ischemic attack (TIA), and cerebral infarction without residual deficits; Z79.82 Long term (current) use of aspirin; Z79.899 Other long term (current) drug therapy

== ENCOUNTER 2023-04-02 14:27 | Emergency (ER) | payer MEDICARE, MEDICAID ==
[~2023-04-02] VITALS: Ht 172.7 cm; Wt 78.6 kg
[2023-04-02 14:28] VITALS: BP 137/82
== END 2023-04-02 16:26 | disposition left against medical advice (07) ==
LOC: M ED 14:27
DX: Z53.21 Procedure and treatment not carried out due to patient leaving prior to being seen by health care provider (principal)

== ENCOUNTER → 2023-04-02 | Outpatient (CLI) | payer MEDICARE, MEDICAID ==
[2023-04-02 09:08] LABS: HEMOGLOBIN A1c 9.5 % (4.0-6.0)
[2023-04-02 09:17] LABS: CREATININE, URINE 133.4 MG/DL
[2023-04-02 09:17] LABS: BLOOD UREA NITROGEN 27 MG/DL (9-23); CALCIUM LEVEL 8.8 MG/DL (8.5-10.1); CARBON DIOXIDE LEVEL 28 MMOL/L (20-31); CHLORIDE LEVEL 102 MMOL/L (98-107); CREATININE FOR GFR 1.15 MG/DL (0.70-1.30); GLOMERULAR FILTRATION RATE > 60.0 (>56); GLUCOSE, FASTING 221 MG/DL (60-100); POTASSIUM SERUM 4.1 MMOL/L (3.5-5.1); SODIUM LEVEL 137 MMOL/L (136-145)
[2023-04-02 09:18] LABS: MAU/CREAT RATIO 87.7 MCG/MG (0.0-30.0)
== END ==
LOC: M LAB 07:11
PROVIDERS: ATTEND Family Medicine
DX: E11.65 Type 2 diabetes mellitus with hyperglycemia (principal); E11.21 Type 2 diabetes mellitus with diabetic nephropathy; N18.31 Chronic kidney disease, stage 3a

== ENCOUNTER 2023-04-03 10:38 | Emergency (ER) | payer MEDICARE, MEDICAID ==
[~2023-04-03] VITALS: Ht 172.7 cm; Wt 79.8 kg
[2023-04-03 10:38] VITALS: BP 137/84
== END 2023-04-03 11:33 | disposition left against medical advice (07) ==
LOC: M ED 10:38
DX: Z53.21 Procedure and treatment not carried out due to patient leaving prior to being seen by health care provider (principal)

== ENCOUNTER 2023-04-11 00:36 | Emergency (ER) | payer MEDICARE, MEDICAID ==
[~2023-04-11] VITALS: Ht 172.7 cm; Wt 78.3 kg
[2023-04-11 04:02] LABS: BASO # 0.1 10^3/uL (0.0-0.2); BASO % 0.5 % (0.0-1.0); EOS # 0.3 10^3/uL (0.0-0.5); EOS % 3.5 % (0.0-3.0); HEMATOCRIT 47.7 % (42.0-52.0); LYMPH # 3.3 10^3/uL (1.5-5.0); LYMPH % 35.5 % (24.0-44.0); MEAN CORPUSCULAR HEMOGLOBIN 31.7 pg (27.0-33.0); MEAN CORPUSCULAR HGB CONC 35.6 g/dl (32.0-36.5); MEAN CORPUSCULAR VOLUME 88.8 fl (80.0-96.0); MONO # 0.8 10^3/uL (0.0-0.8); MONO % 8.1 % (2.0-8.0); NEUTROPHILS # 4.8 10^3/uL (1.5-8.5); NEUTROPHILS % 51.9 % (36.0-66.0); PLATELET COUNT, AUTOMATED 192 10^3/uL (150-450); RED BLOOD COUNT 5.37 10^6/uL (4.30-6.10); WHITE BLOOD COUNT 9.2 10^3/uL (4.0-10.0)
[2023-04-11 04:12] LABS: LIPASE 20 U/L (12-53)
[2023-04-11 04:14] LABS: ALBUMIN 3.5 G/DL (3.2-5.2); ALKALINE PHOSPHATASE 76 U/L (46-116); ALT/SGPT 29 U/L (7.0-40); AST/SGOT 21 U/L (<34); BILIRUBIN,DIRECT 0.2 MG/DL (<0.4); BILIRUBIN,TOTAL 0.8 MG/DL (0.3-1.2); BLOOD UREA NITROGEN 30 MG/DL (9-23); CALCIUM LEVEL 8.4 MG/DL (8.5-10.1); CARBON DIOXIDE LEVEL 25 MMOL/L (20-31); CHLORIDE LEVEL 106 MMOL/L (98-107); CREATININE FOR GFR 1.24 MG/DL (0.70-1.30); GLOMERULAR FILTRATION RATE > 60.0 (>56); GLUCOSE, FASTING 176 MG/DL (60-100); POTASSIUM SERUM 3.8 MMOL/L (3.5-5.1); SODIUM LEVEL 139 MMOL/L (136-145); TOTAL PROTEIN 6.8 G/DL (5.7-8.2)
[2023-04-11 04:17] LABS: CK-MB VALUE MASS 3.5 NG/ML (<3.6)
[2023-04-11 04:18] LABS: CPK CREATINE PHOSPHOKINASE 152 U/L (46-171)
[2023-04-11 04:47] LABS: RSV AMPLIFICATION NEGATIVE (NEGATIVE)
[2023-04-11] MEDS ORDERED: KETOROLAC 30 MG/ML 1ML VIAL IV ONE (05:20)
[2023-04-11 05:26] LABS: CK-MB VALUE MASS 3.2 NG/ML (<3.6)
[2023-04-11 05:28] LABS: MB/CK RELATIVE INDEX 2.6 (< OR =4)
[2023-04-11] MEDS ORDERED: SENN-186 PO (06:58)
[2023-04-11 07:15] VITALS: BP 116/64
== END 2023-04-11 07:32 | disposition home or self-care (01) ==
LOC: M ED 00:36
DX: R07.89 Other chest pain (principal); K59.00 Constipation, unspecified; E11.9 Type 2 diabetes mellitus without complications; I10 Essential (primary) hypertension; E78.5 Hyperlipidemia, unspecified; M54.9 Dorsalgia, unspecified; Z79.899 Other long term (current) drug therapy; Z79.82 Long term (current) use of aspirin; Z79.4 Long term (current) use of insulin
CPT/HCPCS: 71045; 74018; 80048; 80076; 82550; 82553; 83690; 84484; 85025; 87631; 93005; 96374; 99285; J1885

== ENCOUNTER 2023-04-26 20:00 | Observation (INO) | payer MEDICARE, MEDICAID ==
[~2023-04-26] VITALS: Ht 172.7 cm; Wt 75.2 kg
[~2023-04-26 20:00] MED LIST changes: -INSULADS INJ; +INSULADS SC; +SENN-186 PO
[2023-04-26] MEDS ORDERED: METOPROLOL TART 12.5 MG PER 1/2 TAB PO SCH (21:00)
[2023-04-26] MEDS ORDERED: INSULIN LISPRO (NovoLOG) PER UNIT SC SCH (21:00)
[2023-04-26 21:05] LABS: BASO % 0.5 % (0.0-1.0); EOS # 0.3 10^3/uL (0.0-0.5); EOS % 3.5 % (0.0-3.0); HEMOGLOBIN 17.1 g/dl (13.5-17.5); LYMPH # 2.7 10^3/uL (1.5-5.0); MEAN CORPUSCULAR HEMOGLOBIN 31.7 pg (27.0-33.0); MEAN CORPUSCULAR HGB CONC 35.6 g/dl (32.0-36.5); MEAN CORPUSCULAR VOLUME 89.1 fl (80.0-96.0); MONO # 0.6 10^3/uL (0.0-0.8); MONO % 7.6 % (2.0-8.0); NEUTROPHILS # 4.6 10^3/uL (1.5-8.5); PLATELET COUNT, AUTOMATED 190 10^3/uL (150-450); RED BLOOD COUNT 5.39 10^6/uL (4.30-6.10); WHITE BLOOD COUNT 8.3 10^3/uL (4.0-10.0)
[2023-04-26 21:11] LABS: CK-MB VALUE MASS 7.2 NG/ML (<3.6); LIPASE 27 U/L (12-53)
[2023-04-26 21:12] LABS: CPK CREATINE PHOSPHOKINASE 252 U/L (46-171); MB/CK RELATIVE INDEX 2.85 (< OR =4)
[2023-04-26 21:21] LABS: ALBUMIN 3.9 G/DL (3.2-5.2); ALKALINE PHOSPHATASE 80 U/L (46-116); ALT/SGPT 33 U/L (7.0-40); AST/SGOT 19 U/L (<34); BILIRUBIN,DIRECT 0.2 MG/DL (<0.4); BILIRUBIN,TOTAL 0.6 MG/DL (0.3-1.2); BLOOD UREA NITROGEN 33 MG/DL (9-23); CALCIUM LEVEL 8.8 MG/DL (8.5-10.1); CARBON DIOXIDE LEVEL 30 MMOL/L (20-31); CHLORIDE LEVEL 97 MMOL/L (98-107); CREATININE FOR GFR 1.32 MG/DL (0.70-1.30); GLOMERULAR FILTRATION RATE > 60.0 (>56); GLUCOSE, FASTING 461 MG/DL (60-100); MAGNESIUM LEVEL 2.1 MG/DL (1.8-2.4); POTASSIUM SERUM 4.5 MMOL/L (3.5-5.1); SODIUM LEVEL 133 MMOL/L (136-145); TOTAL PROTEIN 6.9 G/DL (5.7-8.2)
[2023-04-26] MEDS ORDERED: HumuLIN R (REGULAR) INSULIN (NovoLIN R) **100U/ML** PER UNIT IV ONE (21:25)
[2023-04-26] MEDS ORDERED: ISOVUE-370 76% 100ML VIAL As Ordered ONE (21:26)
[2023-04-26 22:19] LABS: MB/CK RELATIVE INDEX 2.42 (< OR =4)
[2023-04-26] MEDS ORDERED: VITA100093 PO (23:13)
[2023-04-26] MEDS ORDERED: MULTCHW12 PO (23:13)
[2023-04-26] MEDS ORDERED: HOME MED LIST COMPLETE! XX SCH (23:15)
[2023-04-26 23:36] LABS: RSV AMPLIFICATION NEGATIVE (NEGATIVE)
[2023-04-26] MEDS ORDERED: DEXTROSE 50% 50ML SYRINGE IV PRN (23:45)
[2023-04-26] MEDS ORDERED: GLUCAGON INJ 1MG VIAL SC PRN (23:45)
[2023-04-26] MEDS ORDERED: ACETAMINOPHEN TAB 650MG DOSE (2X325MG) PO PRN (23:45)
[2023-04-26] MEDS ORDERED: GLUCOSE 4GM CHEW TABLET PO PRN (23:45)
[2023-04-26] MEDS ORDERED: LR 1,000 ML IV SCH (23:45)
[2023-04-27] MEDS ORDERED: LACTULOSE 20GM/30ML SYRUP UDC PO SCH
[2023-04-27 00:31] LABS: HEMOGLOBIN A1c 9.5 % (4.0-6.0)
[2023-04-27 01:40] VITALS: BP 123/72; TEMP 98.1; O2SAT 99
[2023-04-27 01:48] VITALS: BP 123/72
[2023-04-27] MEDS ORDERED: INSULIN LISPRO (NovoLOG) PER UNIT SC SCH (07:30)
[2023-04-27] MEDS ORDERED: ASPIRIN 81MG ENTERIC TABLET PO SCH (09:00)
[2023-04-27] MEDS ORDERED: ATORVASTATIN 20 MG TAB PO SCH (09:00)
[2023-04-27] MEDS ORDERED: LEVEMIR (INSULIN DETEMIR) 1 UNITS/0.01ML SC SCH (21:00)
== END 2023-04-27 06:45 | disposition left against medical advice (07) ==
LOC: M ED 20:00 → M ED INP 20:01 → M MS4PR 04-27 01:16
PROVIDERS: ADMIT Internal Medicine; ATTEND Internal Medicine
DX: K56.7 Ileus, unspecified (principal); E11.65 Type 2 diabetes mellitus with hyperglycemia; I49.3 Ventricular premature depolarization; E78.5 Hyperlipidemia, unspecified; I10 Essential (primary) hypertension; N40.0 Benign prostatic hyperplasia without lower urinary tract symptoms; F41.9 Anxiety disorder, unspecified; F32.A Depression, unspecified; R10.32 Left lower quadrant pain; M54.9 Dorsalgia, unspecified; Z79.899 Other long term (current) drug therapy; Z79.4 Long term (current) use of insulin; Z79.82 Long term (current) use of aspirin
CPT/HCPCS: 71045; 71275; 74177; 80048; 80076; 81001; 82550; 82553; 83036; 83690; 83735; 84484; 85025; 87631; 93005; 93041; 94760; 96374; 99285; G0378; J1815; Q9967

== ENCOUNTER 2023-05-16 20:14 | Emergency (ER) | payer MEDICARE, MEDICAID ==
[~2023-05-16] VITALS: Ht 172.7 cm; Wt 74.7 kg
[~2023-05-16 20:14] MED LIST changes: +MULTCHW12 PO; +VITA100093 PO
[2023-05-16 20:15] VITALS: BP 138/71; TEMP 96.7; O2SAT 98
[2023-05-16] MEDS ORDERED: CEPHALEXIN 500 MG CAP PO ONE (21:20)
[2023-05-16] MEDS ORDERED: CEPH500C PO (21:27)
== END 2023-05-16 21:41 | disposition home or self-care (01) ==
LOC: M ED 20:14
DX: L02.212 Cutaneous abscess of back [any part, except buttock and flank] (principal); E11.9 Type 2 diabetes mellitus without complications; Z86.73 Personal history of transient ischemic attack (TIA), and cerebral infarction without residual deficits; Z79.899 Other long term (current) drug therapy; Z79.4 Long term (current) use of insulin; Z79.82 Long term (current) use of aspirin

== ENCOUNTER 2023-05-28 10:41 | Emergency (ER) | payer MEDICARE, MEDICAID ==
[~2023-05-28] VITALS: Ht 172.7 cm; Wt 73.9 kg
[2023-05-28 12:36] LABS: BASO % 0.5 % (0.0-1.0); EOS # 0.1 10^3/uL (0.0-0.5); EOS % 1.5 % (0.0-3.0); HEMATOCRIT 51.7 % (42.0-52.0); HEMOGLOBIN 18.5 g/dl (13.5-17.5); LYMPH # 2.1 10^3/uL (1.5-5.0); LYMPH % 23.5 % (24.0-44.0); MEAN CORPUSCULAR HEMOGLOBIN 31.7 pg (27.0-33.0); MEAN CORPUSCULAR HGB CONC 35.8 g/dl (32.0-36.5); MEAN CORPUSCULAR VOLUME 88.7 fl (80.0-96.0); MONO # 0.7 10^3/uL (0.0-0.8); MONO % 7.3 % (2.0-8.0); NEUTROPHILS # 5.9 10^3/uL (1.5-8.5); NEUTROPHILS % 66.7 % (36.0-66.0); PLATELET COUNT, AUTOMATED 176 10^3/uL (150-450); RED BLOOD COUNT 5.83 10^6/uL (4.30-6.10); WHITE BLOOD COUNT 8.9 10^3/uL (4.0-10.0)
[2023-05-28 12:41] LABS: INR 0.94; PROTHROMBIN TIME 12.8 SECONDS (12.5-14.5)
[2023-05-28 12:42] LABS: PARTIAL THROMBOPLASTIN TIME 26.4 SECONDS (24.8-34.2)
[2023-05-28 12:44] LABS: D-DIMER QUANT 300.94 ng/ml (<500)
[2023-05-28 12:56] LABS: LIPASE 23 U/L (12-53)
[2023-05-28 12:57] LABS: CPK CREATINE PHOSPHOKINASE 163 U/L (46-171)
[2023-05-28 12:58] LABS: ALBUMIN 3.8 G/DL (3.2-5.2); ALKALINE PHOSPHATASE 78 U/L (46-116); ALT/SGPT 31 U/L (7.0-40); AST/SGOT 13 U/L (<34); BILIRUBIN,DIRECT 0.5 MG/DL (<0.4); BILIRUBIN,TOTAL 1.4 MG/DL (0.3-1.2); BLOOD UREA NITROGEN 27 MG/DL (9-23); CALCIUM LEVEL 8.7 MG/DL (8.5-10.1); CARBON DIOXIDE LEVEL 27 MMOL/L (20-31); CHLORIDE LEVEL 101 MMOL/L (98-107); CK-MB VALUE MASS 6.2 NG/ML (<3.6); CREATININE FOR GFR 1.16 MG/DL (0.70-1.30); GLOMERULAR FILTRATION RATE > 60.0 (>56); GLUCOSE, FASTING 359 MG/DL (60-100); POTASSIUM SERUM 4.3 MMOL/L (3.5-5.1); SODIUM LEVEL 135 MMOL/L (136-145); TOTAL PROTEIN 7.1 G/DL (5.7-8.2)
[2023-05-28 13:01] LABS: FREE T4 1.26 NG/DL (0.89-1.76)
[2023-05-28 13:02] LABS: THYROID STIMULATING HORMONE 0.655 uIU/ML (0.55-4.78)
[2023-05-28 14:23] VITALS: BP 129/72; TEMP 98; O2SAT 98
[2023-05-28 14:38] LABS: CK-MB VALUE MASS 5.5 NG/ML (<3.6)
[2023-05-28 14:39] LABS: MB/CK RELATIVE INDEX 3.71 (< OR =4)
== END 2023-05-28 15:10 | disposition home or self-care (01) ==
LOC: M ED 10:41
DX: R06.02 Shortness of breath (principal); I49.8 Other specified cardiac arrhythmias; Z86.73 Personal history of transient ischemic attack (TIA), and cerebral infarction without residual deficits; Z79.899 Other long term (current) drug therapy; Z79.82 Long term (current) use of aspirin; Z79.4 Long term (current) use of insulin; I10 Essential (primary) hypertension; E78.00 Pure hypercholesterolemia, unspecified; E11.9 Type 2 diabetes mellitus without complications; F32.A Depression, unspecified; F41.9 Anxiety disorder, unspecified

== ENCOUNTER 2023-05-30 01:36 | Emergency (ER) | payer MEDICARE, MEDICAID ==
[~2023-05-30] VITALS: Ht 172.7 cm; Wt 77.3 kg
[2023-05-30 01:43] VITALS: BP 127/88; TEMP 97.8; O2SAT 98
== END 2023-05-30 04:57 | disposition left against medical advice (07) ==
LOC: M ED 01:36 → EDBD 01:36 → M ED 04:57
DX: R07.9 Chest pain, unspecified (principal); Z53.21 Procedure and treatment not carried out due to patient leaving prior to being seen by health care provider

== ENCOUNTER 2023-06-24 20:21 | Emergency (ER) | payer MEDICARE, MEDICAID ==
[~2023-06-24] VITALS: Ht 172.7 cm; Wt 73.3 kg
[2023-06-24 20:21] VITALS: TEMP 98.3; O2SAT 98
[2023-06-24 21:22] LABS: BASO % 0.3 % (0.0-1.0); EOS # 0.1 10^3/uL (0.0-0.5); EOS % 1.4 % (0.0-3.0); HEMATOCRIT 49.3 % (42.0-52.0); HEMOGLOBIN 17.7 g/dl (13.5-17.5); LYMPH # 3.2 10^3/uL (1.5-5.0); LYMPH % 34.9 % (24.0-44.0); MEAN CORPUSCULAR HEMOGLOBIN 31.6 pg (27.0-33.0); MEAN CORPUSCULAR HGB CONC 35.9 g/dl (32.0-36.5); MEAN CORPUSCULAR VOLUME 87.9 fl (80.0-96.0); MONO # 0.7 10^3/uL (0.0-0.8); MONO % 7.5 % (2.0-8.0); NEUTROPHILS # 5.1 10^3/uL (1.5-8.5); NEUTROPHILS % 55.5 % (36.0-66.0); PLATELET COUNT, AUTOMATED 170 10^3/uL (150-450); RED BLOOD COUNT 5.61 10^6/uL (4.30-6.10); WHITE BLOOD COUNT 9.3 10^3/uL (4.0-10.0)
[2023-06-24 21:50] VITALS: BP 148/88
[2023-06-24 21:52] LABS: BLOOD UREA NITROGEN 21 MG/DL (9-23); CARBON DIOXIDE LEVEL 25 MMOL/L (20-31); CHLORIDE LEVEL 99 MMOL/L (98-107); CPK CREATINE PHOSPHOKINASE 122 U/L (46-171); CREATININE FOR GFR 1.02 MG/DL (0.70-1.30); GLOMERULAR FILTRATION RATE > 60.0 (>56); GLUCOSE, FASTING 466 MG/DL (60-100); MB/CK RELATIVE INDEX 3.27 (< OR =4); SODIUM LEVEL 134 MMOL/L (136-145)
== END 2023-06-24 23:00 | disposition left against medical advice (07) ==
LOC: M ED 20:21
DX: R07.9 Chest pain, unspecified (principal); Z53.21 Procedure and treatment not carried out due to patient leaving prior to being seen by health care provider

== ENCOUNTER 2023-06-26 16:47 | Emergency (ER) | payer MEDICARE, MEDICAID ==
[~2023-06-26] VITALS: Ht 172.7 cm; Wt 71.9 kg
[2023-06-26 16:50] VITALS: BP 118/72; TEMP 96.5; O2SAT 98
== END 2023-06-26 23:02 | disposition left against medical advice (07) ==
LOC: M ED 16:47
DX: Z53.21 Procedure and treatment not carried out due to patient leaving prior to being seen by health care provider (principal)

== ENCOUNTER 2023-06-27 21:47 | Emergency (ER) | payer MEDICARE, MEDICAID ==
[~2023-06-27] VITALS: Ht 172.7 cm; Wt 77.3 kg
[2023-06-27 21:47] VITALS: BP 123/68; TEMP 98.6; O2SAT 98
== END 2023-06-28 01:39 | disposition left against medical advice (07) ==
LOC: M ED 21:47
DX: Z53.21 Procedure and treatment not carried out due to patient leaving prior to being seen by health care provider (principal)

== ENCOUNTER 2023-06-29 19:58 | Emergency (ER) | payer MEDICARE, MEDICAID ==
[~2023-06-29] VITALS: Ht 172.7 cm; Wt 73.3 kg
[2023-06-29 19:58] VITALS: BP 143/79; TEMP 98; O2SAT 98
== END 2023-06-30 00:58 | disposition left against medical advice (07) ==
LOC: M ED 19:58
DX: R10.9 Unspecified abdominal pain (principal); Z53.21 Procedure and treatment not carried out due to patient leaving prior to being seen by health care provider

== ENCOUNTER 2023-07-02 18:55 | Emergency (ER) | payer MEDICARE, MEDICAID ==
[~2023-07-02] VITALS: Ht 172.7 cm; Wt 69.9 kg
[2023-07-02 18:57] VITALS: BP 141/81; TEMP 97.4
== END 2023-07-03 00:24 | disposition left against medical advice (07) ==
LOC: M ED 18:55
DX: R10.9 Unspecified abdominal pain (principal); Z53.21 Procedure and treatment not carried out due to patient leaving prior to being seen by health care provider

== ENCOUNTER 2023-07-22 17:11 | Emergency (ER) | payer MEDICARE, MEDICAID ==
[~2023-07-22] VITALS: Ht 172.7 cm; Wt 71.0 kg
[2023-07-22 18:12] LABS: BLOOD UREA NITROGEN 20 MG/DL (9-23); CALCIUM LEVEL 9.6 MG/DL (8.5-10.1); CARBON DIOXIDE LEVEL 28 MMOL/L (20-31); CHLORIDE LEVEL 103 MMOL/L (98-107); CK-MB VALUE MASS 6.1 NG/ML (<3.6); CREATININE FOR GFR 1.09 MG/DL (0.70-1.30); GLOMERULAR FILTRATION RATE > 60.0 (>56); GLUCOSE, FASTING 297 MG/DL (60-100); POTASSIUM SERUM 4.5 MMOL/L (3.5-5.1); SODIUM LEVEL 138 MMOL/L (136-145)
[2023-07-22 18:13] LABS: BASO % 0.2 % (0.0-1.0); EOS # 0.1 10^3/uL (0.0-0.5); HEMATOCRIT 48.6 % (42.0-52.0); HEMOGLOBIN 16.8 g/dl (13.5-17.5); LYMPH # 2.5 10^3/uL (1.5-5.0); LYMPH % 30.9 % (24.0-44.0); MEAN CORPUSCULAR HEMOGLOBIN 31.1 pg (27.0-33.0); MEAN CORPUSCULAR HGB CONC 34.6 g/dl (32.0-36.5); MONO # 0.8 10^3/uL (0.0-0.8); MONO % 9.2 % (2.0-8.0); NEUTROPHILS # 4.8 10^3/uL (1.5-8.5); NEUTROPHILS % 58.3 % (36.0-66.0); PLATELET COUNT, AUTOMATED 189 10^3/uL (150-450); WHITE BLOOD COUNT 8.2 10^3/uL (4.0-10.0)
[2023-07-22 18:17] LABS: CPK CREATINE PHOSPHOKINASE 157 U/L (46-171); MB/CK RELATIVE INDEX 3.88 (< OR =4)
[2023-07-22 19:20] LABS: CK-MB VALUE MASS 5.7 NG/ML (<3.6)
[2023-07-22 19:25] LABS: MB/CK RELATIVE INDEX 4.38 (< OR =4)
[2023-07-22 19:28] VITALS: BP 127/77; TEMP 98.1; O2SAT 96
== END 2023-07-22 21:26 | disposition home or self-care (01) ==
LOC: M ED 17:11
DX: R07.89 Other chest pain (principal); E11.9 Type 2 diabetes mellitus without complications; E78.5 Hyperlipidemia, unspecified; I10 Essential (primary) hypertension; Z86.73 Personal history of transient ischemic attack (TIA), and cerebral infarction without residual deficits; Z79.82 Long term (current) use of aspirin; Z79.4 Long term (current) use of insulin; Z79.899 Other long term (current) drug therapy

== ENCOUNTER 2023-08-20 10:18 | Emergency (ER) | payer MEDICARE, MEDICAID ==
[~2023-08-20] VITALS: Ht 172.7 cm; Wt 72.7 kg
[~2023-08-20 10:18] MED LIST changes: +DICY-61 PO; +VITMTA PO
[2023-08-20 12:45] VITALS: BP 124/74; TEMP 97.8; O2SAT 99
== END 2023-08-20 12:50 | disposition home or self-care (01) ==
LOC: M ED 10:18
DX: I49.8 Other specified cardiac arrhythmias (principal); I49.3 Ventricular premature depolarization; Z86.79 Personal history of other diseases of the circulatory system; E11.9 Type 2 diabetes mellitus without complications; E78.5 Hyperlipidemia, unspecified; I10 Essential (primary) hypertension; Z86.73 Personal history of transient ischemic attack (TIA), and cerebral infarction without residual deficits; Z79.4 Long term (current) use of insulin; Z79.82 Long term (current) use of aspirin; Z79.899 Other long term (current) drug therapy

== ENCOUNTER 2023-08-24 22:42 | Emergency (ER) | payer MEDICARE, MEDICAID ==
[2023-08-24 22:42] VITALS: BP 126/93; TEMP 98.6; O2SAT 98
== END 2023-08-25 03:34 | disposition left against medical advice (07) ==
LOC: M ED 22:42
DX: Z53.21 Procedure and treatment not carried out due to patient leaving prior to being seen by health care provider (principal)

== ENCOUNTER 2023-08-31 09:31 | Emergency (ER) | payer MEDICARE, MEDICAID ==
[~2023-08-31] VITALS: Ht 172.7 cm; Wt 72.7 kg
[2023-08-31 09:32] VITALS: BP 160/88; TEMP 98; O2SAT 98
== END 2023-08-31 11:02 | disposition left against medical advice (07) ==
LOC: M ED 09:31
DX: Z53.21 Procedure and treatment not carried out due to patient leaving prior to being seen by health care provider (principal)

== ENCOUNTER → 2023-09-03 | Outpatient (REF) | payer MEDICARE, MEDICAID ==
[2023-09-04 14:45] LABS: CREATININE, URINE 35.9 MG/DL; MAU/CREAT RATIO 44.5 MCG/MG (0.0-30.0)
== END ==
LOC: M LAB REF 12:10
PROVIDERS: ATTEND Nurse Practitioner Family
DX: E11.9 Type 2 diabetes mellitus without complications (principal)

== ENCOUNTER 2023-09-04 16:48 | Emergency (ER) | payer MEDICARE, MEDICAID ==
[~2023-09-04] VITALS: Ht 172.7 cm; Wt 73.4 kg
[2023-09-04 16:49] VITALS: BP 121/72; TEMP 97.8; O2SAT 99
== END 2023-09-04 19:05 | disposition left against medical advice (07) ==
LOC: M ED 16:48
DX: Z53.21 Procedure and treatment not carried out due to patient leaving prior to being seen by health care provider (principal)

== ENCOUNTER 2023-09-10 09:27 | Emergency (ER) | payer MEDICARE, MEDICAID ==
[~2023-09-10] VITALS: Ht 172.7 cm; Wt 73.6 kg
[2023-09-10] MEDS ORDERED: KETOROLAC 30 MG/ML 1ML VIAL IV ONE (12:10)
[2023-09-10] MEDS ORDERED: NS 1,000 ML IV SCH (12:10)
[2023-09-10 12:55] LABS: BASO % 0.3 % (0.0-1.0); EOS # 0.1 10^3/uL (0.0-0.5); EOS % 1.5 % (0.0-3.0); HEMATOCRIT 47.9 % (42.0-52.0); LYMPH # 1.7 10^3/uL (1.5-5.0); LYMPH % 22.4 % (24.0-44.0); MEAN CORPUSCULAR HGB CONC 35.5 g/dl (32.0-36.5); MEAN CORPUSCULAR VOLUME 90.2 fl (80.0-96.0); MONO # 0.5 10^3/uL (0.0-0.8); MONO % 7.1 % (2.0-8.0); NEUTROPHILS # 5.1 10^3/uL (1.5-8.5); NEUTROPHILS % 68.4 % (36.0-66.0); PLATELET COUNT, AUTOMATED 156 10^3/uL (150-450); RED BLOOD COUNT 5.31 10^6/uL (4.30-6.10); WHITE BLOOD COUNT 7.4 10^3/uL (4.0-10.0)
[2023-09-10 17:42] VITALS: BP 142/86; TEMP 98.2; O2SAT 99
[2023-09-11 11:08] LABS: BLOOD UREA NITROGEN 17 MG/DL (7-21); CALCIUM LEVEL 9.5 MG/DL (8.4-10.2); CARBON DIOXIDE LEVEL 26 MEQ/L (22-30); CHLORIDE LEVEL 101 MEQ/L (98-107); GLOMERULAR FILTRATION RATE > 60.0 (>56); GLUCOSE, FASTING 352 MG/DL (70-99); POTASSIUM SERUM 4.5 MEQ/L (3.6-5.0); SODIUM LEVEL 137 MEQ/L (134-153)
[2023-09-11 11:09] LABS: ALKALINE PHOSPHATASE 81 U/L (40-129); ALT/SGPT 18 U/L (1-41); AST/SGOT 17 U/L (5-40); BILIRUBIN,DIRECT < 0.2 MG/DL (0.1-0.4); BILIRUBIN,TOTAL 0.9 MG/DL (0.2-1.3); LIPASE 15 U/L (13-60); TOTAL PROTEIN 6.6 G/DL (6.3-8.2)
== END 2023-09-10 17:43 | disposition left against medical advice (07) ==
LOC: M ED 09:27
DX: R10.32 Left lower quadrant pain (principal); I10 Essential (primary) hypertension; E11.9 Type 2 diabetes mellitus without complications; Z79.899 Other long term (current) drug therapy
CPT/HCPCS: 74176; 80048; 80076; 81001; 83690; 85025; 96374; 99284; J1885

== ENCOUNTER 2023-09-26 18:26 | Emergency (ER) | payer MEDICARE, MEDICAID ==
[~2023-09-26] VITALS: Ht 172.7 cm; Wt 72.7 kg
[2023-09-26 18:52] LABS: BASO % 0.4 % (0.0-1.0); EOS # 0.2 10^3/uL (0.0-0.5); EOS % 1.9 % (0.0-3.0); HEMATOCRIT 48.3 % (42.0-52.0); HEMOGLOBIN 17.1 g/dl (13.5-17.5); LYMPH # 2.9 10^3/uL (1.5-5.0); LYMPH % 35.4 % (24.0-44.0); MEAN CORPUSCULAR HEMOGLOBIN 32.4 pg (27.0-33.0); MEAN CORPUSCULAR HGB CONC 35.4 g/dl (32.0-36.5); MEAN CORPUSCULAR VOLUME 91.7 fl (80.0-96.0); MONO # 0.6 10^3/uL (0.0-0.8); MONO % 6.8 % (2.0-8.0); NEUTROPHILS # 4.5 10^3/uL (1.5-8.5); NEUTROPHILS % 55.1 % (36.0-66.0); PLATELET COUNT, AUTOMATED 164 10^3/uL (150-450); RED BLOOD COUNT 5.27 10^6/uL (4.30-6.10); WHITE BLOOD COUNT 8.2 10^3/uL (4.0-10.0)
[2023-09-26 19:18] LABS: CK-MB VALUE MASS 5.5 NG/ML (<3.6)
[2023-09-26 19:19] LABS: CPK CREATINE PHOSPHOKINASE 132 U/L (46-171); MB/CK RELATIVE INDEX 4.16 (< OR =4)
[2023-09-26 19:25] LABS: BLOOD UREA NITROGEN 19 MG/DL (9-23); CALCIUM LEVEL 9.2 MG/DL (8.5-10.1); CARBON DIOXIDE LEVEL 29 MMOL/L (20-31); CHLORIDE LEVEL 101 MMOL/L (98-107); CREATININE FOR GFR 1.18 MG/DL (0.70-1.30); GLOMERULAR FILTRATION RATE > 60.0 (>56); GLUCOSE, FASTING 473 MG/DL (60-100); POTASSIUM SERUM 4.6 MMOL/L (3.5-5.1); SODIUM LEVEL 135 MMOL/L (136-145)
[2023-09-26] MEDS ORDERED: SUCRALFATE SUSP 1GM/10ML UD PO ONE (20:50)
[2023-09-26] MEDS ORDERED: MAALOX 30 ML SUSP *UDC PO ONE (20:50)
[2023-09-26 21:22] LABS: CK-MB VALUE MASS 4.8 NG/ML (<3.6)
[2023-09-26 22:31] VITALS: BP 102/61; TEMP 98; O2SAT 94
== END 2023-09-26 22:42 | disposition home or self-care (01) ==
LOC: M ED 18:26
DX: R07.9 Chest pain, unspecified (principal); E11.9 Type 2 diabetes mellitus without complications; Z79.82 Long term (current) use of aspirin; Z79.4 Long term (current) use of insulin; Z79.899 Other long term (current) drug therapy

== ENCOUNTER 2023-09-30 14:04 | Emergency (ER) | payer MEDICARE, MEDICAID ==
[~2023-09-30] VITALS: Ht 172.7 cm; Wt 75.0 kg
[2023-09-30] MEDS ORDERED: GLIP5TAB20 (14:21)
[2023-09-30 15:45] LABS: BASO % 0.2 % (0.0-1.0); EOS # 0.2 10^3/uL (0.0-0.5); EOS % 1.8 % (0.0-3.0); HEMATOCRIT 44.2 % (42.0-52.0); HEMOGLOBIN 15.8 g/dl (13.5-17.5); LYMPH # 2.1 10^3/uL (1.5-5.0); LYMPH % 25.5 % (24.0-44.0); MEAN CORPUSCULAR HEMOGLOBIN 32.9 pg (27.0-33.0); MEAN CORPUSCULAR HGB CONC 35.7 g/dl (32.0-36.5); MEAN CORPUSCULAR VOLUME 92.1 fl (80.0-96.0); MONO # 0.6 10^3/uL (0.0-0.8); NEUTROPHILS # 5.5 10^3/uL (1.5-8.5); NEUTROPHILS % 65.1 % (36.0-66.0); PLATELET COUNT, AUTOMATED 153 10^3/uL (150-450); WHITE BLOOD COUNT 8.4 10^3/uL (4.0-10.0)
[2023-09-30 16:00] VITALS: BP 128/64
[2023-09-30] MEDS ORDERED: MIRA3350 PO (16:06)
[2023-09-30 16:19] VITALS: TEMP 98.2; O2SAT 99
== END 2023-09-30 16:32 | disposition home or self-care (01) ==
LOC: M ED 14:04
DX: K59.00 Constipation, unspecified (principal); E11.9 Type 2 diabetes mellitus without complications; I49.3 Ventricular premature depolarization; Z79.4 Long term (current) use of insulin; Z79.899 Other long term (current) drug therapy

== ENCOUNTER → 2023-10-02 | Outpatient (REF) | payer MEDICARE, MEDICAID ==
[~2023-10-02] MED LIST changes: +GLIP5TAB20; +MIRA3350 PO
[2023-10-02 10:04] LABS: APPEARANCE, URINE CLEAR (CLEAR); BACTERIA, URINE AUTO NEGATIVE (NEGATIVE); BILIRUBIN, URINE AUTO NEGATIVE (NEGATIVE); BLOOD, URINE BLOOD NEGATIVE (NEGATIVE); COLOR, URINE YELLOW (YELLOW); GLUCOSE, URINE (UA) AUTO 3+ mg/dL (NEGATIVE); KETONE, URINE AUTO NEGATIVE (NEGATIVE); LEUKOCYTE ESTERASE, URINE AUTO NEGATIVE (NEGATIVE); NITRITE, URINE AUTO NEGATIVE (NEGATIVE); PROTEIN, URINE AUTO 1+ mg/dL (NEGATIVE); RBC, URINE AUTO 0 /HPF (0-3); SPECIFIC GRAVITY URINE AUTO 1.036 (1.002-1.035); SQUAMOUS EPITHELIAL CELL UR AU 0 /HPF (0-6); UROBILINOGEN, URINE AUTO 0.2 mg/dL (0.0-2.0); WBC, URINE AUTO 2 /HPF (0-3)
== END ==
LOC: M SMT 09:47
PROVIDERS: ATTEND Physician Assistant
DX: R39.12 Poor urinary stream (principal)

== ENCOUNTER 2023-10-11 15:25 | Emergency (ER) | payer MEDICARE, MEDICAID ==
[~2023-10-11] VITALS: Ht 172.7 cm; Wt 74.7 kg
[2023-10-11 17:14] VITALS: BP 115/74; TEMP 97.7; O2SAT 97
[2023-10-11 17:20] LABS: RSV AMPLIFICATION NEGATIVE (NEGATIVE)
== END 2023-10-11 17:42 | disposition home or self-care (01) ==
LOC: M ED 15:25
DX: Z00.00 Encounter for general adult medical examination without abnormal findings (principal); E11.9 Type 2 diabetes mellitus without complications; I10 Essential (primary) hypertension; E78.5 Hyperlipidemia, unspecified; K21.9 Gastro-esophageal reflux disease without esophagitis; F90.9 Attention-deficit hyperactivity disorder, unspecified type; F31.9 Bipolar disorder, unspecified; Z86.73 Personal history of transient ischemic attack (TIA), and cerebral infarction without residual deficits; Z79.82 Long term (current) use of aspirin; Z79.4 Long term (current) use of insulin; Z79.899 Other long term (current) drug therapy

== ENCOUNTER → 2023-10-16 | Outpatient (CLI) | payer MEDICARE, MEDICAID | LOC: M PAIN 08:00 | PROVIDERS: ATTEND Nurse Practitioner Family | DX: M79.12 Myalgia of auxiliary muscles, head and neck (principal); M79.18 Myalgia, other site; E11.9 Type 2 diabetes mellitus without complications; F43.10 Post-traumatic stress disorder, unspecified; F31.9 Bipolar disorder, unspecified; E78.1 Pure hyperglyceridemia; M41.9 Scoliosis, unspecified; M51.26 Other intervertebral disc displacement, lumbar region; R33.9 Retention of urine, unspecified; R97.20 Elevated prostate specific antigen [PSA]; Z86.73 Personal history of transient ischemic attack (TIA), and cerebral infarction without residual deficits; Z79.4 Long term (current) use of insulin; Z79.85 Long-term (current) use of injectable non-insulin antidiabetic drugs; Z79.899 Other long term (current) drug therapy ==

== ENCOUNTER → 2023-10-26 | Outpatient (CLI) | payer MEDICARE, MEDICAID ==
[~2023-10-26] MED LIST changes: +METO1TAB32 PO
== END ==
LOC: M RAD 16:33
PROVIDERS: ATTEND Nurse Practitioner Family
DX: M54.50 Low back pain, unspecified (principal); M47.816 Spondylosis without myelopathy or radiculopathy, lumbar region

== ENCOUNTER → 2023-10-26 | Outpatient (CLI) | payer MEDICARE, MEDICAID | LOC: M PAIN 16:00 | PROVIDERS: ATTEND Nurse Practitioner Family | DX: M79.10 Myalgia, unspecified site (principal); M54.50 Low back pain, unspecified; M25.551 Pain in right hip; G89.29 Other chronic pain; E11.9 Type 2 diabetes mellitus without complications; F43.10 Post-traumatic stress disorder, unspecified; F31.9 Bipolar disorder, unspecified; E78.1 Pure hyperglyceridemia; M41.9 Scoliosis, unspecified; R33.9 Retention of urine, unspecified; Z86.73 Personal history of transient ischemic attack (TIA), and cerebral infarction without residual deficits; Z79.4 Long term (current) use of insulin; Z79.82 Long term (current) use of aspirin; Z79.899 Other long term (current) drug therapy ==

== ENCOUNTER 2023-11-01 10:24 | Emergency (ER) | payer MEDICARE, MEDICAID ==
[~2023-11-01] VITALS: Ht 172.7 cm; Wt 74.9 kg
[2023-11-01 10:24] VITALS: BP 119/70; TEMP 98; O2SAT 100
[~2023-11-01 10:24] MED LIST changes: -METO1TAB32 PO
[2023-11-01] MEDS ORDERED: TAMS1CAP17 PO (11:31)
[2023-11-01] MEDS ORDERED: METO1TAB32 PO (11:31)
== END 2023-11-01 12:39 | disposition left against medical advice (07) ==
LOC: M ED 10:24
DX: Z53.21 Procedure and treatment not carried out due to patient leaving prior to being seen by health care provider (principal)

== ENCOUNTER 2023-11-05 07:16 | Emergency (ER) | payer MEDICARE, MEDICAID ==
[~2023-11-05] VITALS: Ht 172.7 cm; Wt 74.4 kg
[~2023-11-05 07:16] MED LIST changes: +METO1TAB32 PO
[2023-11-05] MEDS ORDERED: ONDANSETRON 4MG ORAL DISINTEGRATING TAB PO ONE (07:45)
[2023-11-05 08:17] LABS: BASO % 0.2 % (0.0-1.0); EOS # 0.2 10^3/uL (0.0-0.5); EOS % 1.2 % (0.0-3.0); HEMATOCRIT 47.7 % (42.0-52.0); LYMPH # 2.7 10^3/uL (1.5-5.0); LYMPH % 18.4 % (24.0-44.0); MEAN CORPUSCULAR HGB CONC 35.6 g/dl (32.0-36.5); MEAN CORPUSCULAR VOLUME 89.8 fl (80.0-96.0); MONO # 0.9 10^3/uL (0.0-0.8); MONO % 6.3 % (2.0-8.0); NEUTROPHILS # 10.9 10^3/uL (1.5-8.5); NEUTROPHILS % 73.5 % (36.0-66.0); PLATELET COUNT, AUTOMATED 161 10^3/uL (150-450); RED BLOOD COUNT 5.31 10^6/uL (4.30-6.10); WHITE BLOOD COUNT 14.8 10^3/uL (4.0-10.0)
[2023-11-05 08:28] LABS: RSV AMPLIFICATION NEGATIVE (NEGATIVE)
[2023-11-05 08:54] VITALS: BP 121/75; TEMP 97.4; O2SAT 97
[2023-11-05] MEDS ORDERED: ISOVUE-370 76% 100ML VIAL As Ordered ONE (09:10)
[2023-11-05 09:44] LABS: ALBUMIN 3.6 G/DL (3.2-5.2); BILIRUBIN,DIRECT 0.4 MG/DL (<0.4); TOTAL PROTEIN 6.5 G/DL (5.7-8.2)
[2023-11-05] MEDS ORDERED: ONDA4TAB6 PO (10:05)
== END 2023-11-05 10:20 | disposition home or self-care (01) ==
LOC: M ED 07:16
DX: K52.9 Noninfective gastroenteritis and colitis, unspecified (principal); R91.1 Solitary pulmonary nodule; E11.9 Type 2 diabetes mellitus without complications; E78.5 Hyperlipidemia, unspecified; F43.10 Post-traumatic stress disorder, unspecified; Z86.73 Personal history of transient ischemic attack (TIA), and cerebral infarction without residual deficits; Z87.19 Personal history of other diseases of the digestive system; Z79.82 Long term (current) use of aspirin; Z79.4 Long term (current) use of insulin; Z79.899 Other long term (current) drug therapy
CPT/HCPCS: 74177; 80047; 80076; 83690; 85025; 87631; 99283; Q9967

== ENCOUNTER 2023-11-11 00:26 | Emergency (ER) | payer MEDICARE, MEDICAID ==
[~2023-11-11] VITALS: Ht 172.7 cm; Wt 76.1 kg
[2023-11-11 00:27] VITALS: BP 127/79; TEMP 96.1; O2SAT 100
== END 2023-11-11 03:35 | disposition left against medical advice (07) ==
LOC: M ED 00:26
DX: Z53.21 Procedure and treatment not carried out due to patient leaving prior to being seen by health care provider (principal)

== ENCOUNTER 2023-12-02 16:54 | Emergency (ER) | payer MEDICARE, MEDICAID ==
[~2023-12-02] VITALS: Ht 172.7 cm; Wt 78.0 kg
[~2023-12-02 16:54] MED LIST changes: +CLOP75TA99 PO
[2023-12-02 17:35] LABS: BASO % 0.3 % (0.0-1.0); EOS # 0.2 10^3/uL (0.0-0.5); EOS % 1.7 % (0.0-3.0); HEMATOCRIT 49.3 % (42.0-52.0); HEMOGLOBIN 17.4 g/dl (13.5-17.5); LYMPH # 3.2 10^3/uL (1.5-5.0); LYMPH % 34.1 % (24.0-44.0); MEAN CORPUSCULAR HEMOGLOBIN 32.4 pg (27.0-33.0); MEAN CORPUSCULAR HGB CONC 35.3 g/dl (32.0-36.5); MEAN CORPUSCULAR VOLUME 91.8 fl (80.0-96.0); MONO # 0.8 10^3/uL (0.0-0.8); MONO % 7.9 % (2.0-8.0); NEUTROPHILS # 5.3 10^3/uL (1.5-8.5); NEUTROPHILS % 55.7 % (36.0-66.0); PLATELET COUNT, AUTOMATED 159 10^3/uL (150-450); RED BLOOD COUNT 5.37 10^6/uL (4.30-6.10); WHITE BLOOD COUNT 9.5 10^3/uL (4.0-10.0)
[2023-12-02 17:46] LABS: INR 1.13; PROTHROMBIN TIME 14.1 SECONDS (12.5-14.5)
[2023-12-02] MEDS ORDERED: ASPIRIN 81MG CHEW TABLET PO ONE (18:00)
[2023-12-02 18:03] LABS: CK-MB VALUE MASS 5.8 NG/ML (<3.6); LIPASE 29 U/L (12-53)
[2023-12-02 18:06] LABS: ALBUMIN 3.9 G/DL (3.2-5.2); ALKALINE PHOSPHATASE 68 U/L (46-116); ALT/SGPT 31 U/L (7.0-40); AST/SGOT 20 U/L (<34); BILIRUBIN,DIRECT 0.4 MG/DL (<0.4); BILIRUBIN,TOTAL 1.1 MG/DL (0.3-1.2); BLOOD UREA NITROGEN 31 MG/DL (9-23); CALCIUM LEVEL 9.2 MG/DL (8.5-10.1); CARBON DIOXIDE LEVEL 31 MMOL/L (20-31); CHLORIDE LEVEL 106 MMOL/L (98-107); CREATININE FOR GFR 1.22 MG/DL (0.70-1.30); GLOMERULAR FILTRATION RATE > 60.0 (>56); GLUCOSE, FASTING 163 MG/DL (60-100); POTASSIUM SERUM 4.3 MMOL/L (3.5-5.1); SODIUM LEVEL 140 MMOL/L (136-145); TOTAL PROTEIN 7.1 G/DL (5.7-8.2)
[2023-12-02 18:07] LABS: CPK CREATINE PHOSPHOKINASE 216 U/L (46-171); MB/CK RELATIVE INDEX 2.68 (< OR =4)
[2023-12-02 19:31] LABS: RSV AMPLIFICATION NEGATIVE (NEGATIVE)
[2023-12-02 20:58] LABS: CK-MB VALUE MASS 4.5 NG/ML (<3.6)
[2023-12-02 20:59] LABS: MB/CK RELATIVE INDEX 2.77 (< OR =4)
[2023-12-02 22:00] VITALS: BP 109/75; TEMP 97.9; O2SAT 98
== END 2023-12-02 22:10 | disposition home or self-care (01) ==
LOC: M ED 16:54
DX: R07.89 Other chest pain (principal); I25.10 Atherosclerotic heart disease of native coronary artery without angina pectoris; I25.2 Old myocardial infarction; Z86.73 Personal history of transient ischemic attack (TIA), and cerebral infarction without residual deficits; E11.9 Type 2 diabetes mellitus without complications; I10 Essential (primary) hypertension; E78.5 Hyperlipidemia, unspecified; Z79.82 Long term (current) use of aspirin; Z79.4 Long term (current) use of insulin; Z79.899 Other long term (current) drug therapy

== ENCOUNTER 2023-12-05 23:16 | Emergency (ER) | payer MEDICARE, MEDICAID ==
[~2023-12-05] VITALS: Ht 172.7 cm; Wt 72.5 kg
[2023-12-06 00:07] LABS: BLOOD UREA NITROGEN 33 MG/DL (9-23); CALCIUM LEVEL 8.5 MG/DL (8.5-10.1); CARBON DIOXIDE LEVEL 25 MMOL/L (20-31); CHLORIDE LEVEL 106 MMOL/L (98-107); CK-MB VALUE MASS 8.2 NG/ML (<3.6); CREATININE FOR GFR 1.15 MG/DL (0.70-1.30); GLOMERULAR FILTRATION RATE > 60.0 (>56); GLUCOSE, FASTING 229 MG/DL (60-100); POTASSIUM SERUM 3.7 MMOL/L (3.5-5.1); SODIUM LEVEL 137 MMOL/L (136-145)
[2023-12-06 00:14] LABS: CPK CREATINE PHOSPHOKINASE 556 U/L (46-171); MB/CK RELATIVE INDEX 1.47 (< OR =4)
[2023-12-06] MEDS ORDERED: NITROGLYCERIN 0.4MG SUBL TABLET SL PRN (00:15)
[2023-12-06 00:17] LABS: BASO % 0.3 % (0.0-1.0); EOS # 0.2 10^3/uL (0.0-0.5); EOS % 2.3 % (0.0-3.0); HEMATOCRIT 44.2 % (42.0-52.0); HEMOGLOBIN 15.9 g/dl (13.5-17.5); LYMPH # 3.1 10^3/uL (1.5-5.0); LYMPH % 40.3 % (24.0-44.0); MEAN CORPUSCULAR HEMOGLOBIN 32.7 pg (27.0-33.0); MEAN CORPUSCULAR VOLUME 90.9 fl (80.0-96.0); MONO # 0.6 10^3/uL (0.0-0.8); MONO % 8.3 % (2.0-8.0); NEUTROPHILS # 3.7 10^3/uL (1.5-8.5); NEUTROPHILS % 48.2 % (36.0-66.0); PLATELET COUNT, AUTOMATED 168 10^3/uL (150-450); RED BLOOD COUNT 4.86 10^6/uL (4.30-6.10); WHITE BLOOD COUNT 7.7 10^3/uL (4.0-10.0)
[2023-12-06] MEDS ORDERED: ISOVUE-370 76% 100ML VIAL As Ordered ONE (00:27)
[2023-12-06 00:56] LABS: CK-MB VALUE MASS 8.3 NG/ML (<3.6)
[2023-12-06 00:58] LABS: MB/CK RELATIVE INDEX 1.69 (< OR =4)
[2023-12-06 02:40] LABS: CK-MB VALUE MASS 6.8 NG/ML (<3.6)
[2023-12-06 03:00] LABS: MB/CK RELATIVE INDEX 1.56 (< OR =4)
[2023-12-06 03:31] VITALS: BP 118/70; TEMP 98.1; O2SAT 98
== END 2023-12-06 03:47 | disposition home or self-care (01) ==
LOC: EDBD 23:16 → M ED 23:16
DX: R07.9 Chest pain, unspecified (principal); R91.8 Other nonspecific abnormal finding of lung field; I25.10 Atherosclerotic heart disease of native coronary artery without angina pectoris; I25.2 Old myocardial infarction; E11.9 Type 2 diabetes mellitus without complications; Z76.5 Malingerer [conscious simulation]; Z82.49 Family history of ischemic heart disease and other diseases of the circulatory system; Z79.82 Long term (current) use of aspirin; Z79.4 Long term (current) use of insulin; Z79.899 Other long term (current) drug therapy
CPT/HCPCS: 71045; 71275; 80048; 82550; 82553; 84484; 85025; 93005; 93041; 94760; 99285; Q9967

== ENCOUNTER 2023-12-12 07:36 | Emergency (ER) | payer MEDICARE, MEDICAID ==
[~2023-12-12] VITALS: Ht 172.7 cm; Wt 75.5 kg
[2023-12-12] MEDS ORDERED: ASPIRIN 81MG CHEW TABLET PO ONE (08:20)
[2023-12-12 08:49] LABS: BASO % 0.3 % (0.0-1.0); EOS # 0.1 10^3/uL (0.0-0.5); EOS % 1.6 % (0.0-3.0); HEMATOCRIT 48.2 % (42.0-52.0); HEMOGLOBIN 16.8 g/dl (13.5-17.5); LYMPH % 29.4 % (24.0-44.0); MEAN CORPUSCULAR HEMOGLOBIN 32.1 pg (27.0-33.0); MEAN CORPUSCULAR HGB CONC 34.9 g/dl (32.0-36.5); MEAN CORPUSCULAR VOLUME 92.2 fl (80.0-96.0); MONO # 0.6 10^3/uL (0.0-0.8); MONO % 8.5 % (2.0-8.0); NEUTROPHILS # 4.2 10^3/uL (1.5-8.5); NEUTROPHILS % 59.9 % (36.0-66.0); PLATELET COUNT, AUTOMATED 169 10^3/uL (150-450); RED BLOOD COUNT 5.23 10^6/uL (4.30-6.10)
[2023-12-12 09:11] LABS: LIPASE 28 U/L (12-53)
[2023-12-12 09:13] LABS: ALBUMIN 3.8 G/DL (3.2-5.2); ALKALINE PHOSPHATASE 69 U/L (46-116); ALT/SGPT 37 U/L (7.0-40); AST/SGOT 24 U/L (<34); BILIRUBIN,DIRECT 0.5 MG/DL (<0.4); BILIRUBIN,TOTAL 1.1 MG/DL (0.3-1.2); BLOOD UREA NITROGEN 20 MG/DL (9-23); CALCIUM LEVEL 9.2 MG/DL (8.5-10.1); CARBON DIOXIDE LEVEL 29 MMOL/L (20-31); CHLORIDE LEVEL 107 MMOL/L (98-107); CK-MB VALUE MASS 5.8 NG/ML (<3.6); CPK CREATINE PHOSPHOKINASE 299 U/L (46-171); CREATININE FOR GFR 1.13 MG/DL (0.70-1.30); GLOMERULAR FILTRATION RATE > 60.0 (>56); GLUCOSE, FASTING 195 MG/DL (60-100); MB/CK RELATIVE INDEX 1.93 (< OR =4); POTASSIUM SERUM 4.5 MMOL/L (3.5-5.1); SODIUM LEVEL 137 MMOL/L (136-145); TOTAL PROTEIN 7.2 G/DL (5.7-8.2)
[2023-12-12 09:25] LABS: RSV AMPLIFICATION NEGATIVE (NEGATIVE)
[2023-12-12 10:26] LABS: CK-MB VALUE MASS 5.2 NG/ML (<3.6); MB/CK RELATIVE INDEX 1.96 (< OR =4)
[2023-12-12] MEDS ORDERED: ACETAMINOPHEN TAB 650MG DOSE (2X325MG) PO ONE (10:40)
[2023-12-12 11:00] VITALS: BP 117/66
[2023-12-12 11:15] VITALS: TEMP 98.4; O2SAT 98
[2023-12-12] MEDS ORDERED: CLOP75TA2 (20:16)
== END 2023-12-12 11:20 | disposition home or self-care (01) ==
LOC: M ED 07:36
DX: R07.9 Chest pain, unspecified (principal); I49.3 Ventricular premature depolarization; E11.9 Type 2 diabetes mellitus without complications; I10 Essential (primary) hypertension; E78.5 Hyperlipidemia, unspecified; F43.10 Post-traumatic stress disorder, unspecified; F31.9 Bipolar disorder, unspecified; G45.9 Transient cerebral ischemic attack, unspecified; Z79.4 Long term (current) use of insulin; Z79.1 Long term (current) use of non-steroidal anti-inflammatories (NSAID); Z79.899 Other long term (current) drug therapy; Z79.84 Long term (current) use of oral hypoglycemic drugs

== ENCOUNTER 2023-12-12 20:10 | Emergency (ER) | payer MEDICARE, MEDICAID ==
[~2023-12-12] VITALS: Ht 172.7 cm; Wt 75.9 kg
[2023-12-12] MEDS ORDERED: CLOP75TA2 (20:16)
[2023-12-12 20:51] LABS: BASO % 0.1 % (0.0-1.0); EOS # 0.1 10^3/uL (0.0-0.5); EOS % 1.7 % (0.0-3.0); HEMATOCRIT 45.5 % (42.0-52.0); HEMOGLOBIN 16.1 g/dl (13.5-17.5); LYMPH # 3.1 10^3/uL (1.5-5.0); LYMPH % 38.5 % (24.0-44.0); MEAN CORPUSCULAR HEMOGLOBIN 32.3 pg (27.0-33.0); MEAN CORPUSCULAR HGB CONC 35.4 g/dl (32.0-36.5); MEAN CORPUSCULAR VOLUME 91.2 fl (80.0-96.0); MONO # 0.6 10^3/uL (0.0-0.8); MONO % 7.8 % (2.0-8.0); NEUTROPHILS # 4.2 10^3/uL (1.5-8.5); NEUTROPHILS % 51.7 % (36.0-66.0); PLATELET COUNT, AUTOMATED 170 10^3/uL (150-450); RED BLOOD COUNT 4.99 10^6/uL (4.30-6.10); WHITE BLOOD COUNT 8.2 10^3/uL (4.0-10.0)
[2023-12-12 21:12] LABS: CK-MB VALUE MASS 4.6 NG/ML (<3.6); LIPASE 21 U/L (12-53)
[2023-12-12 21:16] LABS: FREE T4 1.04 NG/DL (0.89-1.76); THYROID STIMULATING HORMONE 1.508 uIU/ML (0.55-4.78)
[2023-12-12 21:22] LABS: ALBUMIN 3.7 G/DL (3.2-5.2); ALKALINE PHOSPHATASE 70 U/L (46-116); ALT/SGPT 35 U/L (7.0-40); AST/SGOT 27 U/L (<34); BILIRUBIN,DIRECT 0.3 MG/DL (<0.4); BLOOD UREA NITROGEN 24 MG/DL (9-23); CALCIUM LEVEL 8.3 MG/DL (8.5-10.1); CARBON DIOXIDE LEVEL 25 MMOL/L (20-31); CHLORIDE LEVEL 106 MMOL/L (98-107); CPK CREATINE PHOSPHOKINASE 239 U/L (46-171); CREATININE FOR GFR 1.02 MG/DL (0.70-1.30); GLOMERULAR FILTRATION RATE > 60.0 (>56); GLUCOSE, FASTING 288 MG/DL (60-100); MB/CK RELATIVE INDEX 1.92 (< OR =4); SODIUM LEVEL 138 MMOL/L (136-145); TOTAL PROTEIN 6.6 G/DL (5.7-8.2)
[2023-12-12 21:24] LABS: RSV AMPLIFICATION NEGATIVE (NEGATIVE)
[2023-12-12 22:21] LABS: CK-MB VALUE MASS 4.6 NG/ML (<3.6)
[2023-12-12 22:24] LABS: MB/CK RELATIVE INDEX 2.15 (< OR =4)
[2023-12-12 23:00] VITALS: BP 122/72; TEMP 97.6; O2SAT 98
== END 2023-12-12 23:20 | disposition home or self-care (01) ==
LOC: M ED 20:10
DX: R07.9 Chest pain, unspecified (principal); I25.10 Atherosclerotic heart disease of native coronary artery without angina pectoris; E11.9 Type 2 diabetes mellitus without complications; I10 Essential (primary) hypertension; E78.5 Hyperlipidemia, unspecified; K21.9 Gastro-esophageal reflux disease without esophagitis; F41.9 Anxiety disorder, unspecified; F31.9 Bipolar disorder, unspecified; F43.10 Post-traumatic stress disorder, unspecified; Z86.73 Personal history of transient ischemic attack (TIA), and cerebral infarction without residual deficits; Z79.82 Long term (current) use of aspirin; Z79.4 Long term (current) use of insulin; Z79.899 Other long term (current) drug therapy

== ENCOUNTER 2023-12-15 22:46 | Emergency (ER) | payer MEDICARE, MEDICAID ==
[~2023-12-15] VITALS: Ht 172.7 cm; Wt 76.3 kg
[~2023-12-15 22:46] MED LIST changes: +CLOP75TA2
[2023-12-15 22:48] VITALS: BP 138/78; TEMP 97.5; O2SAT 96
== END 2023-12-16 01:40 | disposition left against medical advice (07) ==
LOC: M ED 22:46
DX: Z53.21 Procedure and treatment not carried out due to patient leaving prior to being seen by health care provider (principal)

== ENCOUNTER 2023-12-22 18:48 | Emergency (ER) | payer MEDICARE, MEDICAID ==
[~2023-12-22] VITALS: Ht 172.7 cm; Wt 77.3 kg
[2023-12-22] MEDS: ACETAMINOPHEN *IV* 1,000 MG in IV 1 EA IV ONE (19:59)
[2023-12-22 20:29] LABS: BASO % 0.1 % (0.0-1.0); EOS # 0.1 10^3/uL (0.0-0.5); EOS % 1.7 % (0.0-3.0); HEMATOCRIT 42.8 % (42.0-52.0); HEMOGLOBIN 15.7 g/dl (13.5-17.5); LYMPH # 2.8 10^3/uL (1.5-5.0); LYMPH % 35.4 % (24.0-44.0); MEAN CORPUSCULAR VOLUME 89.9 fl (80.0-96.0); MONO # 0.7 10^3/uL (0.0-0.8); MONO % 9.2 % (2.0-8.0); NEUTROPHILS # 4.2 10^3/uL (1.5-8.5); NEUTROPHILS % 53.3 % (36.0-66.0); PLATELET COUNT, AUTOMATED 141 10^3/uL (150-450); RED BLOOD COUNT 4.76 10^6/uL (4.30-6.10); WHITE BLOOD COUNT 7.8 10^3/uL (4.0-10.0)
[2023-12-22 20:32] LABS: MEAN CORPUSCULAR HGB CONC 36.7 g/dl (32.0-36.5)
[2023-12-22 20:37] LABS: LIPASE 20 U/L (12-53)
[2023-12-22 20:40] LABS: ALBUMIN 3.4 G/DL (3.2-5.2); ALKALINE PHOSPHATASE 69 U/L (46-116); ALT/SGPT 30 U/L (7.0-40); AST/SGOT 19 U/L (<34); BILIRUBIN,DIRECT 0.5 MG/DL (<0.4); BILIRUBIN,TOTAL 1.4 MG/DL (0.3-1.2); BLOOD UREA NITROGEN 30 MG/DL (9-23); CALCIUM LEVEL 8.6 MG/DL (8.5-10.1); CARBON DIOXIDE LEVEL 27 MMOL/L (20-31); CHLORIDE LEVEL 108 MMOL/L (98-107); CREATININE FOR GFR 1.15 MG/DL (0.70-1.30); GLOMERULAR FILTRATION RATE > 60.0 (>56); GLUCOSE, FASTING 242 MG/DL (60-100); SODIUM LEVEL 141 MMOL/L (136-145); TOTAL PROTEIN 6.2 G/DL (5.7-8.2)
[2023-12-22] MEDS ORDERED: ISOVUE-370 76% 100ML VIAL As Ordered ONE (21:00)
[2023-12-22 22:21] VITALS: BP 118/82; TEMP 97.4; O2SAT 98
== END 2023-12-22 22:23 | disposition home or self-care (01) ==
LOC: M ED 18:48
DX: R10.9 Unspecified abdominal pain (principal); N40.0 Benign prostatic hyperplasia without lower urinary tract symptoms; E11.9 Type 2 diabetes mellitus without complications; I25.2 Old myocardial infarction; I10 Essential (primary) hypertension; K21.9 Gastro-esophageal reflux disease without esophagitis; E78.5 Hyperlipidemia, unspecified; Z79.899 Other long term (current) drug therapy; Z79.4 Long term (current) use of insulin; Z79.1 Long term (current) use of non-steroidal anti-inflammatories (NSAID); Z79.84 Long term (current) use of oral hypoglycemic drugs
CPT/HCPCS: 74177; 80048; 80076; 81001; 83690; 85025; 96365; 99284; J0131; Q9967

== ENCOUNTER 2023-12-25 12:59 | Emergency (ER) | payer MEDICARE, MEDICAID ==
[~2023-12-25] VITALS: Ht 172.7 cm; Wt 76.8 kg
[2023-12-25 13:11] VITALS: TEMP 97.2
[2023-12-25 13:28] LABS: BASO % 0.4 % (0.0-1.0); EOS # 0.2 10^3/uL (0.0-0.5); EOS % 1.9 % (0.0-3.0); HEMATOCRIT 48.3 % (42.0-52.0); LYMPH # 2.5 10^3/uL (1.5-5.0); LYMPH % 29.3 % (24.0-44.0); MEAN CORPUSCULAR HEMOGLOBIN 32.2 pg (27.0-33.0); MEAN CORPUSCULAR HGB CONC 35.2 g/dl (32.0-36.5); MEAN CORPUSCULAR VOLUME 91.5 fl (80.0-96.0); MONO # 0.7 10^3/uL (0.0-0.8); MONO % 8.6 % (2.0-8.0); NEUTROPHILS % 59.4 % (36.0-66.0); PLATELET COUNT, AUTOMATED 160 10^3/uL (150-450); RED BLOOD COUNT 5.28 10^6/uL (4.30-6.10); WHITE BLOOD COUNT 8.4 10^3/uL (4.0-10.0)
[2023-12-25 13:44] LABS: INR 1.2; PROTHROMBIN TIME 14.9 SECONDS (12.5-14.5)
[2023-12-25 13:54] LABS: CK-MB VALUE MASS 6.9 NG/ML (<3.6)
[2023-12-25 13:55] LABS: LIPASE 21 U/L (12-53)
[2023-12-25 13:58] LABS: THYROID STIMULATING HORMONE 0.479 uIU/ML (0.55-4.78)
[2023-12-25 14:03] LABS: RSV AMPLIFICATION NEGATIVE (NEGATIVE)
[2023-12-25 14:10] LABS: ALBUMIN 3.8 G/DL (3.2-5.2); ALKALINE PHOSPHATASE 79 U/L (46-116); ALT/SGPT 29 U/L (7.0-40); AST/SGOT 25 U/L (<34); BILIRUBIN,DIRECT 0.7 MG/DL (<0.4); BILIRUBIN,TOTAL 1.6 MG/DL (0.3-1.2); BLOOD UREA NITROGEN 22 MG/DL (9-23); CALCIUM LEVEL 8.9 MG/DL (8.5-10.1); CARBON DIOXIDE LEVEL 31 MMOL/L (20-31); CHLORIDE LEVEL 104 MMOL/L (98-107); CPK CREATINE PHOSPHOKINASE 318 U/L (46-171); CREATININE FOR GFR 1.11 MG/DL (0.70-1.30); GLOMERULAR FILTRATION RATE > 60.0 (>56); GLUCOSE, FASTING 182 MG/DL (60-100); MAGNESIUM LEVEL 2.1 MG/DL (1.8-2.4); MB/CK RELATIVE INDEX 2.16 (< OR =4); POTASSIUM SERUM 4.2 MMOL/L (3.5-5.1); SODIUM LEVEL 139 MMOL/L (136-145); TOTAL PROTEIN 6.9 G/DL (5.7-8.2)
[2023-12-25] MEDS ORDERED: ISOVUE-370 76% 100ML VIAL As Ordered ONE (15:06)
[2023-12-25 15:30] VITALS: O2SAT 98
[2023-12-25 15:42] VITALS: BP 122/69
== END 2023-12-25 15:51 | disposition home or self-care (01) ==
LOC: EDBD 12:59 → M ED 12:59
DX: R07.89 Other chest pain (principal); E11.9 Type 2 diabetes mellitus without complications; I10 Essential (primary) hypertension; E78.5 Hyperlipidemia, unspecified; F43.10 Post-traumatic stress disorder, unspecified; F31.9 Bipolar disorder, unspecified; Z79.82 Long term (current) use of aspirin; Z79.4 Long term (current) use of insulin; Z79.899 Other long term (current) drug therapy
CPT/HCPCS: 71045; 71275; 80048; 80076; 82550; 82553; 83690; 83735; 84439; 84443; 84484; 85025; 85610; 87631; 93005; 93041; 94760; 99285; Q9967

== ENCOUNTER 2023-12-28 20:19 | Emergency (ER) | payer MEDICARE, MEDICAID ==
[~2023-12-28] VITALS: Ht 172.7 cm; Wt 75.0 kg
[2023-12-28 20:19] VITALS: BP 125/75; TEMP 98.4; O2SAT 99
== END 2023-12-28 22:32 | disposition left against medical advice (07) ==
LOC: M ED 20:19
DX: Z53.21 Procedure and treatment not carried out due to patient leaving prior to being seen by health care provider (principal)

== ENCOUNTER 2023-12-29 17:56 | Emergency (ER) | payer MEDICARE, MEDICAID ==
[~2023-12-29] VITALS: Ht 172.7 cm; Wt 76.8 kg
[2023-12-29] MEDS: CYCLOBENZAPRINE 10MG TABLET PO ONE (19:08)
[2023-12-29] MEDS: KETOROLAC 60MG 2ML VIAL IM ONE (19:08)
[2023-12-29] MEDS: LIDOCAINE 5% (LIDODERM) PATCH TD ONE (19:09)
[2023-12-29 19:26] VITALS: BP 147/72; TEMP 97.4; O2SAT 98
== END 2023-12-29 20:31 | disposition left against medical advice (07) ==
LOC: M ED 17:56
DX: M54.50 Low back pain, unspecified (principal); Z53.9 Procedure and treatment not carried out, unspecified reason; W06.XXXA Fall from bed, initial encounter; Y92.009 Unspecified place in unspecified non-institutional (private) residence as the place of occurrence of the external cause; Y93.9 Activity, unspecified; Y99.9 Unspecified external cause status; E11.9 Type 2 diabetes mellitus without complications; Z79.82 Long term (current) use of aspirin; Z79.4 Long term (current) use of insulin; Z79.899 Other long term (current) drug therapy
CPT/HCPCS: 96372; 99281; J1885

== ENCOUNTER 2024-01-06 12:26 | Emergency (ER) | payer MEDICARE, MEDICAID ==
[~2024-01-06] VITALS: Ht 172.7 cm; Wt 77.8 kg
[2024-01-06 15:01] LABS: BASO % 0.2 % (0.0-1.0); EOS # 0.2 10^3/uL (0.0-0.5); EOS % 1.6 % (0.0-3.0); HEMATOCRIT 46.1 % (42.0-52.0); HEMOGLOBIN 16.7 g/dl (13.5-17.5); LYMPH # 2.7 10^3/uL (1.5-5.0); LYMPH % 29.1 % (24.0-44.0); MEAN CORPUSCULAR HEMOGLOBIN 32.7 pg (27.0-33.0); MEAN CORPUSCULAR HGB CONC 36.2 g/dl (32.0-36.5); MEAN CORPUSCULAR VOLUME 90.2 fl (80.0-96.0); MONO # 0.8 10^3/uL (0.0-0.8); NEUTROPHILS # 5.7 10^3/uL (1.5-8.5); NEUTROPHILS % 60.7 % (36.0-66.0); PLATELET COUNT, AUTOMATED 163 10^3/uL (150-450); RED BLOOD COUNT 5.11 10^6/uL (4.30-6.10); WHITE BLOOD COUNT 9.4 10^3/uL (4.0-10.0)
[2024-01-06 15:18] VITALS: BP 131/73; TEMP 97.6; O2SAT 98
[2024-01-06 15:19] LABS: LIPASE 20 U/L (12-53)
[2024-01-06 15:21] LABS: ALBUMIN 3.5 G/DL (3.2-5.2); ALKALINE PHOSPHATASE 72 U/L (46-116); ALT/SGPT 33 U/L (7.0-40); AST/SGOT 15 U/L (<34); BILIRUBIN,DIRECT 0.5 MG/DL (<0.4); BILIRUBIN,TOTAL 1.2 MG/DL (0.3-1.2); BLOOD UREA NITROGEN 18 MG/DL (9-23); CALCIUM LEVEL 8.6 MG/DL (8.5-10.1); CARBON DIOXIDE LEVEL 28 MMOL/L (20-31); CHLORIDE LEVEL 109 MMOL/L (98-107); CREATININE FOR GFR 1.03 MG/DL (0.70-1.30); GLOMERULAR FILTRATION RATE > 60.0 (>56); GLUCOSE, FASTING 244 MG/DL (60-100); POTASSIUM SERUM 4.2 MMOL/L (3.5-5.1); SODIUM LEVEL 140 MMOL/L (136-145); TOTAL PROTEIN 6.5 G/DL (5.7-8.2)
[2024-01-06] MEDS: ACETAMINOPHEN 500 MG TAB PO ONE (15:27)
[2024-01-06] MEDS: NS 1,000 ML IV ONE (15:29)
== END 2024-01-06 16:30 | disposition home or self-care (01) ==
LOC: M ED 12:26
DX: R10.32 Left lower quadrant pain (principal); I25.2 Old myocardial infarction; I10 Essential (primary) hypertension; E11.9 Type 2 diabetes mellitus without complications; K80.20 Calculus of gallbladder without cholecystitis without obstruction; Z79.1 Long term (current) use of non-steroidal anti-inflammatories (NSAID); Z79.84 Long term (current) use of oral hypoglycemic drugs; Z79.899 Other long term (current) drug therapy

== ENCOUNTER 2024-01-09 16:52 | Emergency (ER) | payer MEDICARE, MEDICAID ==
[~2024-01-09] VITALS: Ht 172.7 cm; Wt 77.3 kg
[2024-01-09 16:52] VITALS: BP 129/80; TEMP 98.5; O2SAT 98
== END 2024-01-09 19:22 | disposition left against medical advice (07) ==
LOC: M ED 16:52
DX: Z53.21 Procedure and treatment not carried out due to patient leaving prior to being seen by health care provider (principal)

== ENCOUNTER 2024-01-14 03:36 | Emergency (ER) | payer MEDICARE, MEDICAID ==
[2024-01-14 04:27] LABS: BASO % 0.4 % (0.0-1.0); EOS # 0.2 10^3/uL (0.0-0.5); EOS % 2.1 % (0.0-3.0); HEMATOCRIT 47.9 % (42.0-52.0); HEMOGLOBIN 17.3 g/dl (13.5-17.5); LYMPH # 3.2 10^3/uL (1.5-5.0); MEAN CORPUSCULAR HEMOGLOBIN 32.3 pg (27.0-33.0); MEAN CORPUSCULAR HGB CONC 36.1 g/dl (32.0-36.5); MEAN CORPUSCULAR VOLUME 89.5 fl (80.0-96.0); MONO # 0.8 10^3/uL (0.0-0.8); MONO % 8.9 % (2.0-8.0); NEUTROPHILS # 4.2 10^3/uL (1.5-8.5); NEUTROPHILS % 50.2 % (36.0-66.0); PLATELET COUNT, AUTOMATED 166 10^3/uL (150-450); RED BLOOD COUNT 5.35 10^6/uL (4.30-6.10); WHITE BLOOD COUNT 8.4 10^3/uL (4.0-10.0)
[2024-01-14 04:48] LABS: LIPASE 44 U/L (12-53)
[2024-01-14 04:50] LABS: ALBUMIN 3.8 G/DL (3.2-5.2); ALKALINE PHOSPHATASE 82 U/L (46-116); ALT/SGPT 31 U/L (7.0-40); AST/SGOT 15 U/L (<34); BILIRUBIN,DIRECT 0.3 MG/DL (<0.4); BILIRUBIN,TOTAL 1.1 MG/DL (0.3-1.2); BLOOD UREA NITROGEN 25 MG/DL (9-23); CALCIUM LEVEL 9.2 MG/DL (8.5-10.1); CARBON DIOXIDE LEVEL 26 MMOL/L (20-31); CHLORIDE LEVEL 101 MMOL/L (98-107); CK-MB VALUE MASS 5.5 NG/ML (<3.6); CREATININE FOR GFR 0.99 MG/DL (0.70-1.30); GLOMERULAR FILTRATION RATE > 60.0 (>56); GLUCOSE, FASTING 378 MG/DL (60-100); POTASSIUM SERUM 4.2 MMOL/L (3.5-5.1); SODIUM LEVEL 134 MMOL/L (136-145); TOTAL PROTEIN 6.9 G/DL (5.7-8.2)
[2024-01-14 04:53] LABS: CPK CREATINE PHOSPHOKINASE 143 U/L (46-171); MB/CK RELATIVE INDEX 3.84 (< OR =4)
[2024-01-14 05:04] LABS: RSV AMPLIFICATION NEGATIVE (NEGATIVE)
[2024-01-14 05:41] VITALS: TEMP 97.8
[2024-01-14 05:56] LABS: CK-MB VALUE MASS 5.8 NG/ML (<3.6)
[2024-01-14 06:00] LABS: MB/CK RELATIVE INDEX 4.08 (< OR =4)
[2024-01-14] MEDS ORDERED: CLOP75TA2 PO (07:19)
[2024-01-14] MEDS ORDERED: GLIP5TAB20 PO (07:19)
[2024-01-14] MEDS ORDERED: ATOR1TAB21 PO (07:19)
[2024-01-14] MEDS ORDERED: METO1TAB32 PO (07:19)
[2024-01-14] MEDS ORDERED: LANTINJ4 SC (07:19)
[2024-01-14] MEDS ORDERED: FLOM0.4C39 PO (07:19)
[2024-01-14] MEDS ORDERED: ASPI81TA26 PO (07:19)
[2024-01-14 07:35] VITALS: BP 114/65; O2SAT 98
== END 2024-01-14 07:37 | disposition home or self-care (01) ==
LOC: M ED 03:36
DX: R07.9 Chest pain, unspecified (principal); Z76.0 Encounter for issue of repeat prescription; I49.8 Other specified cardiac arrhythmias; I25.2 Old myocardial infarction; E11.9 Type 2 diabetes mellitus without complications; I10 Essential (primary) hypertension; E78.5 Hyperlipidemia, unspecified; Z79.899 Other long term (current) drug therapy; Z79.1 Long term (current) use of non-steroidal anti-inflammatories (NSAID); Z79.84 Long term (current) use of oral hypoglycemic drugs

== ENCOUNTER 2024-01-25 17:13 | Emergency (ER) | payer MEDICARE, MEDICAID ==
[~2024-01-25] VITALS: Ht 172.7 cm; Wt 77.0 kg
[2024-01-25 17:13] VITALS: TEMP 97.7
[~2024-01-25 17:13] MED LIST changes: +CLOP75TA2 PO; +GLIP5TAB20 PO; -LIDO15SO PO; +LIDO15SO8 PO
[2024-01-25 18:20] LABS: BASO % 0.4 % (0.0-1.0); EOS # 0.2 10^3/uL (0.0-0.5); EOS % 1.9 % (0.0-3.0); HEMATOCRIT 43.3 % (42.0-52.0); HEMOGLOBIN 15.4 g/dl (13.5-17.5); LYMPH # 2.6 10^3/uL (1.5-5.0); LYMPH % 32.9 % (24.0-44.0); MEAN CORPUSCULAR HEMOGLOBIN 32.3 pg (27.0-33.0); MEAN CORPUSCULAR HGB CONC 35.6 g/dl (32.0-36.5); MEAN CORPUSCULAR VOLUME 90.8 fl (80.0-96.0); MONO # 0.6 10^3/uL (0.0-0.8); MONO % 8.2 % (2.0-8.0); NEUTROPHILS # 4.4 10^3/uL (1.5-8.5); NEUTROPHILS % 56.3 % (36.0-66.0); PLATELET COUNT, AUTOMATED 157 10^3/uL (150-450); RED BLOOD COUNT 4.77 10^6/uL (4.30-6.10); WHITE BLOOD COUNT 7.8 10^3/uL (4.0-10.0)
[2024-01-25 18:41] LABS: CK-MB VALUE MASS 5.2 NG/ML (<3.6)
[2024-01-25 18:42] LABS: CALCIUM LEVEL 8.2 MG/DL (8.5-10.1); CREATININE FOR GFR 1.35 MG/DL (0.70-1.30); GLOMERULAR FILTRATION RATE 58.6 (>56); POTASSIUM SERUM 4.1 MMOL/L (3.5-5.1)
[2024-01-25 18:46] LABS: MB/CK RELATIVE INDEX 3.9 (< OR =4)
[2024-01-25 19:17] VITALS: BP 126/80; O2SAT 99
[2024-01-25] MEDS: ASPIRIN 81MG CHEW TABLET PO ONE (19:53)
[2024-01-25] MEDS: NS 1,000 ML IV SCH (20:01)
[2024-01-25 20:02] LABS: ALBUMIN 3.4 G/DL (3.2-5.2); BILIRUBIN,DIRECT 0.2 MG/DL (<0.4); BILIRUBIN,TOTAL 0.6 MG/DL (0.3-1.2); TOTAL PROTEIN 6.3 G/DL (5.7-8.2)
[2024-01-25 20:09] LABS: CK-MB VALUE MASS 5.7 NG/ML (<3.6)
[2024-01-25 20:10] LABS: MB/CK RELATIVE INDEX 4.38 (< OR =4)
[2024-01-25 21:20] LABS: D-DIMER QUANT < 0.27 ug/mL (<0.5); INR 1.11
== END 2024-01-25 21:17 | disposition left against medical advice (07) ==
LOC: M ED 17:13
DX: I20.89 Other forms of angina pectoris (principal); I25.119 Atherosclerotic heart disease of native coronary artery with unspecified angina pectoris; E11.9 Type 2 diabetes mellitus without complications; I10 Essential (primary) hypertension; Z79.899 Other long term (current) drug therapy; Z79.84 Long term (current) use of oral hypoglycemic drugs; Z79.4 Long term (current) use of insulin; Z53.9 Procedure and treatment not carried out, unspecified reason

== ENCOUNTER → 2024-01-31 | Outpatient (CLI) | payer MEDICARE, MEDICAID ==
[~2024-01-31] MED LIST changes: -CLOP75TA2; +GLIP10TA18 PO
== END ==
LOC: M LAB 10:26
PROVIDERS: ATTEND Physician Assistant
DX: R97.20 Elevated prostate specific antigen [PSA] (principal)

== ENCOUNTER 2024-02-02 13:15 | Emergency (ER) | payer MEDICARE, MEDICAID ==
[~2024-02-02] VITALS: Ht 172.7 cm; Wt 76.0 kg
[~2024-02-02 13:15] MED LIST changes: -GLIP10TA18 PO
[2024-02-02 14:35] LABS: BASO % 0.3 % (0.0-1.0); EOS # 0.2 10^3/uL (0.0-0.5); EOS % 2.1 % (0.0-3.0); HEMATOCRIT 45.1 % (42.0-52.0); HEMOGLOBIN 16.3 g/dl (13.5-17.5); LYMPH # 1.9 10^3/uL (1.5-5.0); LYMPH % 26.3 % (24.0-44.0); MEAN CORPUSCULAR HGB CONC 36.1 g/dl (32.0-36.5); MEAN CORPUSCULAR VOLUME 88.4 fl (80.0-96.0); MONO # 0.6 10^3/uL (0.0-0.8); MONO % 8.5 % (2.0-8.0); NEUTROPHILS # 4.6 10^3/uL (1.5-8.5); NEUTROPHILS % 62.5 % (36.0-66.0); PLATELET COUNT, AUTOMATED 155 10^3/uL (150-450); WHITE BLOOD COUNT 7.3 10^3/uL (4.0-10.0)
[2024-02-02 14:55] LABS: CK-MB VALUE MASS 7.9 NG/ML (<3.6)
[2024-02-02 14:56] LABS: BLOOD UREA NITROGEN 20 MG/DL (9-23); CALCIUM LEVEL 8.9 MG/DL (8.5-10.1); CARBON DIOXIDE LEVEL 29 MMOL/L (20-31); CHLORIDE LEVEL 104 MMOL/L (98-107); CPK CREATINE PHOSPHOKINASE 190 U/L (46-171); CREATININE FOR GFR 0.96 MG/DL (0.70-1.30); GLOMERULAR FILTRATION RATE > 60.0 (>56); GLUCOSE, FASTING 350 MG/DL (60-100); MAGNESIUM LEVEL 2.2 MG/DL (1.8-2.4); MB/CK RELATIVE INDEX 4.15 (< OR =4); POTASSIUM SERUM 4.3 MMOL/L (3.5-5.1); SODIUM LEVEL 138 MMOL/L (136-145)
[2024-02-02] MEDS: NS 1,000 ML IV ONE (16:00)
[2024-02-02 16:38] LABS: CK-MB VALUE MASS 7.8 NG/ML (<3.6)
[2024-02-02 16:41] LABS: MB/CK RELATIVE INDEX 4.75 (< OR =4)
[2024-02-02 17:00] VITALS: BP 121/73; TEMP 98.2; O2SAT 97
[2024-02-02] MEDS ORDERED: GLIP10TA18 PO (17:07)
[2024-02-02] MEDS ORDERED: HOME MED LIST COMPLETE! XX SCH (17:10)
== END 2024-02-02 17:24 | disposition home or self-care (01) ==
LOC: M ED 13:15
DX: R06.02 Shortness of breath (principal); E11.9 Type 2 diabetes mellitus without complications; R94.31 Abnormal electrocardiogram [ECG] [EKG]; F43.10 Post-traumatic stress disorder, unspecified; F90.9 Attention-deficit hyperactivity disorder, unspecified type; Z79.1 Long term (current) use of non-steroidal anti-inflammatories (NSAID); Z79.899 Other long term (current) drug therapy; Z79.4 Long term (current) use of insulin; Z79.84 Long term (current) use of oral hypoglycemic drugs

== ENCOUNTER 2024-02-07 16:21 | Emergency (ER) | payer MEDICARE, MEDICAID ==
[~2024-02-07] VITALS: Ht 172.7 cm; Wt 76.7 kg
[~2024-02-07 16:21] MED LIST changes: +GLIP10TA18 PO
[2024-02-07 17:34] LABS: BASO % 0.5 % (0.0-1.0); EOS # 0.2 10^3/uL (0.0-0.5); EOS % 2.3 % (0.0-3.0); HEMATOCRIT 46.5 % (42.0-52.0); HEMOGLOBIN 16.7 g/dl (13.5-17.5); LYMPH # 2.8 10^3/uL (1.5-5.0); LYMPH % 33.3 % (24.0-44.0); MEAN CORPUSCULAR HEMOGLOBIN 32.5 pg (27.0-33.0); MEAN CORPUSCULAR HGB CONC 35.9 g/dl (32.0-36.5); MEAN CORPUSCULAR VOLUME 90.5 fl (80.0-96.0); MONO # 0.7 10^3/uL (0.0-0.8); MONO % 8.1 % (2.0-8.0); NEUTROPHILS # 4.6 10^3/uL (1.5-8.5); NEUTROPHILS % 55.4 % (36.0-66.0); PLATELET COUNT, AUTOMATED 166 10^3/uL (150-450); RED BLOOD COUNT 5.14 10^6/uL (4.30-6.10); WHITE BLOOD COUNT 8.3 10^3/uL (4.0-10.0)
[2024-02-07 17:47] LABS: ALBUMIN 3.6 G/DL (3.2-5.2); ALKALINE PHOSPHATASE 88 U/L (46-116); ALT/SGPT 40 U/L (7.0-40); AST/SGOT 16 U/L (<34); BILIRUBIN,DIRECT 0.3 MG/DL (<0.4); BILIRUBIN,TOTAL 0.8 MG/DL (0.3-1.2); BLOOD UREA NITROGEN 25 MG/DL (9-23); CALCIUM LEVEL 9.1 MG/DL (8.5-10.1); CARBON DIOXIDE LEVEL 28 MMOL/L (20-31); CHLORIDE LEVEL 104 MMOL/L (98-107); CREATININE FOR GFR 1.03 MG/DL (0.70-1.30); GLOMERULAR FILTRATION RATE > 60.0 (>56); GLUCOSE, FASTING 251 MG/DL (60-100); POTASSIUM SERUM 3.8 MMOL/L (3.5-5.1); SODIUM LEVEL 137 MMOL/L (136-145); TOTAL PROTEIN 6.5 G/DL (5.7-8.2)
[2024-02-07 17:48] LABS: LIPASE 47 U/L (12-53)
[2024-02-07] MEDS: MAGNESIUM CITRATE 300ML BTL PO ONE (18:40)
[2024-02-07] MEDS: DOCUSATE SODIUM 100MG CAPSULE PO ONE (18:40)
[2024-02-07 18:57] VITALS: BP 107/72; TEMP 97.4; O2SAT 97
== END 2024-02-07 19:16 | disposition home or self-care (01) ==
LOC: M ED 16:21
DX: K59.00 Constipation, unspecified (principal); E11.9 Type 2 diabetes mellitus without complications; I11.9 Hypertensive heart disease without heart failure; I25.2 Old myocardial infarction; Z87.442 Personal history of urinary calculi; Z86.73 Personal history of transient ischemic attack (TIA), and cerebral infarction without residual deficits; E78.5 Hyperlipidemia, unspecified; N40.0 Benign prostatic hyperplasia without lower urinary tract symptoms; Z79.82 Long term (current) use of aspirin; Z79.4 Long term (current) use of insulin; Z79.899 Other long term (current) drug therapy

== ENCOUNTER 2024-02-10 12:31 | Emergency (ER) | payer MEDICARE, MEDICAID ==
[~2024-02-10] VITALS: Ht 172.7 cm; Wt 76.9 kg
[2024-02-10 12:32] VITALS: BP 129/81; TEMP 98.1; O2SAT 100
== END 2024-02-10 13:15 | disposition left against medical advice (07) ==
LOC: M ED 12:31
DX: Z53.21 Procedure and treatment not carried out due to patient leaving prior to being seen by health care provider (principal)

== ENCOUNTER 2024-02-12 07:47 | Emergency (ER) | payer MEDICARE, MEDICAID ==
[~2024-02-12] VITALS: Ht 172.7 cm; Wt 75.9 kg
[2024-02-12 10:23] VITALS: BP 116/53; TEMP 97.7; O2SAT 97
== END 2024-02-12 10:25 | disposition home or self-care (01) ==
LOC: M ED 07:47
DX: K40.91 Unilateral inguinal hernia, without obstruction or gangrene, recurrent (principal); K59.00 Constipation, unspecified; I10 Essential (primary) hypertension; Z79.899 Other long term (current) drug therapy; Z79.4 Long term (current) use of insulin; Z79.84 Long term (current) use of oral hypoglycemic drugs

== ENCOUNTER 2024-02-19 16:37 | Emergency (ER) | payer MEDICARE, MEDICAID ==
[~2024-02-19] VITALS: Ht 172.7 cm; Wt 75.9 kg
[2024-02-19 16:37] VITALS: BP 125/81; TEMP 97.8; O2SAT 98
== END 2024-02-19 19:48 | disposition left against medical advice (07) ==
LOC: M ED 16:37
DX: Z53.21 Procedure and treatment not carried out due to patient leaving prior to being seen by health care provider (principal)

== ENCOUNTER 2024-02-22 15:36 | Emergency (ER) | payer MEDICARE, MEDICAID ==
[~2024-02-22] VITALS: Ht 172.7 cm; Wt 76.2 kg
[2024-02-22] MEDS ORDERED: CLOP75TA99 PO (18:45)
[2024-02-22 19:15] VITALS: BP 136/74; TEMP 97.7; O2SAT 96
== END 2024-02-22 19:40 | disposition home or self-care (01) ==
LOC: M ED 15:36
DX: R00.2 Palpitations (principal); E11.9 Type 2 diabetes mellitus without complications; I10 Essential (primary) hypertension; Z79.1 Long term (current) use of non-steroidal anti-inflammatories (NSAID); Z79.84 Long term (current) use of oral hypoglycemic drugs; Z79.4 Long term (current) use of insulin; Z79.810 Long term (current) use of selective estrogen receptor modulators (SERMs); Z79.899 Other long term (current) drug therapy

== ENCOUNTER 2024-02-24 11:15 | Emergency (ER) | payer MEDICARE, MEDICAID ==
[~2024-02-24] VITALS: Ht 172.7 cm; Wt 73.9 kg
[2024-02-24] MEDS: NS 1,000 ML IV ONE (12:10)
[2024-02-24 12:13] LABS: BASO % 0.3 % (0.0-1.0); EOS # 0.2 10^3/uL (0.0-0.5); EOS % 1.9 % (0.0-3.0); HEMOGLOBIN 16.8 g/dl (13.5-17.5); LYMPH # 2.3 10^3/uL (1.5-5.0); LYMPH % 20.6 % (24.0-44.0); MEAN CORPUSCULAR HEMOGLOBIN 32.2 pg (27.0-33.0); MEAN CORPUSCULAR HGB CONC 35.7 g/dl (32.0-36.5); MONO # 0.9 10^3/uL (0.0-0.8); MONO % 8.2 % (2.0-8.0); NEUTROPHILS # 7.7 10^3/uL (1.5-8.5); NEUTROPHILS % 68.6 % (36.0-66.0); PLATELET COUNT, AUTOMATED 180 10^3/uL (150-450); RED BLOOD COUNT 5.22 10^6/uL (4.30-6.10); WHITE BLOOD COUNT 11.2 10^3/uL (4.0-10.0)
[2024-02-24 12:29] LABS: CK-MB VALUE MASS 7.3 NG/ML (<3.6)
[2024-02-24 12:31] LABS: CPK CREATINE PHOSPHOKINASE 208 U/L (46-171)
[2024-02-24 12:32] LABS: ALKALINE PHOSPHATASE 100 U/L (46-116); ALT/SGPT 36 U/L (7.0-40); AST/SGOT 17 U/L (<34); BILIRUBIN,DIRECT 0.5 MG/DL (<0.4); BILIRUBIN,TOTAL 1.3 MG/DL (0.3-1.2); BLOOD UREA NITROGEN 23 MG/DL (9-23); CARBON DIOXIDE LEVEL 29 MMOL/L (20-31); CHLORIDE LEVEL 104 MMOL/L (98-107); CREATININE FOR GFR 1.07 MG/DL (0.70-1.30); GLOMERULAR FILTRATION RATE > 60.0 (>56); GLUCOSE, FASTING 278 MG/DL (60-100); POTASSIUM SERUM 4.3 MMOL/L (3.5-5.1); SODIUM LEVEL 138 MMOL/L (136-145); TOTAL PROTEIN 7.1 G/DL (5.7-8.2)
[2024-02-24 12:33] LABS: THYROID STIMULATING HORMONE 0.828 uIU/ML (0.55-4.78)
[2024-02-24 12:34] LABS: FREE T4 1.17 NG/DL (0.89-1.76)
[2024-02-24] MEDS ORDERED: OMEG10002 PO (13:44)
[2024-02-24] MEDS ORDERED: LANTINJ4 SC (13:44)
[2024-02-24] MEDS ORDERED: MULTCHW14 PO (13:44)
[2024-02-24] MEDS ORDERED: HOME MED LIST COMPLETE! XX SCH (13:45)
[2024-02-24 14:00] LABS: CK-MB VALUE MASS 5.6 NG/ML (<3.6)
[2024-02-24 14:01] LABS: MB/CK RELATIVE INDEX 3.27 (< OR =4)
[2024-02-24 14:45] VITALS: BP 132/71; TEMP 98; O2SAT 98
== END 2024-02-24 15:02 | disposition home or self-care (01) ==
LOC: M ED 12:25
DX: I49.3 Ventricular premature depolarization (principal); R00.2 Palpitations; E11.9 Type 2 diabetes mellitus without complications; Z79.1 Long term (current) use of non-steroidal anti-inflammatories (NSAID); Z79.84 Long term (current) use of oral hypoglycemic drugs; Z79.4 Long term (current) use of insulin; Z79.810 Long term (current) use of selective estrogen receptor modulators (SERMs); Z79.899 Other long term (current) drug therapy

== ENCOUNTER 2024-02-25 19:30 | Emergency (ER) | payer MEDICARE, MEDICAID ==
[~2024-02-25] VITALS: Ht 172.7 cm; Wt 74.5 kg
[2024-02-25 19:30] VITALS: BP 129/77; TEMP 97.9; O2SAT 98
[~2024-02-25 19:30] MED LIST changes: +MULTCHW14 PO; +OMEG10002 PO
[2024-02-25 21:11] LABS: BASO % 0.4 % (0.0-1.0); EOS # 0.3 10^3/uL (0.0-0.5); EOS % 3.1 % (0.0-3.0); HEMATOCRIT 44.9 % (42.0-52.0); HEMOGLOBIN 16.4 g/dl (13.5-17.5); LYMPH # 3.6 10^3/uL (1.5-5.0); LYMPH % 38.4 % (24.0-44.0); MEAN CORPUSCULAR HEMOGLOBIN 32.7 pg (27.0-33.0); MEAN CORPUSCULAR HGB CONC 36.5 g/dl (32.0-36.5); MEAN CORPUSCULAR VOLUME 89.4 fl (80.0-96.0); MONO # 0.8 10^3/uL (0.0-0.8); MONO % 8.9 % (2.0-8.0); NEUTROPHILS # 4.6 10^3/uL (1.5-8.5); NEUTROPHILS % 48.9 % (36.0-66.0); PLATELET COUNT, AUTOMATED 182 10^3/uL (150-450); RED BLOOD COUNT 5.02 10^6/uL (4.30-6.10); WHITE BLOOD COUNT 9.4 10^3/uL (4.0-10.0)
[2024-02-25 21:38] LABS: CK-MB VALUE MASS 5.9 NG/ML (<3.6)
[2024-02-25 21:40] LABS: BLOOD UREA NITROGEN 25 MG/DL (9-23); CALCIUM LEVEL 8.8 MG/DL (8.5-10.1); CARBON DIOXIDE LEVEL 27 MMOL/L (20-31); CHLORIDE LEVEL 102 MMOL/L (98-107); CREATININE FOR GFR 1.14 MG/DL (0.70-1.30); GLOMERULAR FILTRATION RATE > 60.0 (>56); GLUCOSE, FASTING 309 MG/DL (60-100); POTASSIUM SERUM 4.1 MMOL/L (3.5-5.1); SODIUM LEVEL 137 MMOL/L (136-145)
[2024-02-25 21:49] LABS: CPK CREATINE PHOSPHOKINASE 197 U/L (46-171); MB/CK RELATIVE INDEX 2.99 (< OR =4)
== END 2024-02-25 22:02 | disposition left against medical advice (07) ==
LOC: M ED 19:30
DX: Z53.21 Procedure and treatment not carried out due to patient leaving prior to being seen by health care provider (principal)

== ENCOUNTER 2024-02-27 22:58 | Emergency (ER) | payer MEDICARE, MEDICAID ==
[~2024-02-27] VITALS: Ht 172.7 cm; Wt 76.4 kg
[2024-02-27 22:58] VITALS: BP 131/80; TEMP 96.6; O2SAT 100
== END 2024-02-28 00:25 | disposition left against medical advice (07) ==
LOC: M ED 22:58
DX: Z53.21 Procedure and treatment not carried out due to patient leaving prior to being seen by health care provider (principal)

== ENCOUNTER 2024-02-28 11:41 | Emergency (ER) | payer MEDICARE, MEDICAID ==
[~2024-02-28] VITALS: Ht 172.7 cm; Wt 75.2 kg
[2024-02-28 11:41] VITALS: BP 137/86; TEMP 97.6; O2SAT 98
[2024-02-28 12:19] LABS: BASO % 0.3 % (0.0-1.0); EOS # 0.2 10^3/uL (0.0-0.5); EOS % 3.2 % (0.0-3.0); HEMATOCRIT 45.2 % (42.0-52.0); HEMOGLOBIN 16.4 g/dl (13.5-17.5); LYMPH # 2.3 10^3/uL (1.5-5.0); LYMPH % 34.2 % (24.0-44.0); MEAN CORPUSCULAR HEMOGLOBIN 32.3 pg (27.0-33.0); MEAN CORPUSCULAR HGB CONC 36.3 g/dl (32.0-36.5); MONO # 0.6 10^3/uL (0.0-0.8); MONO % 9.3 % (2.0-8.0); NEUTROPHILS # 3.6 10^3/uL (1.5-8.5); NEUTROPHILS % 52.7 % (36.0-66.0); PLATELET COUNT, AUTOMATED 179 10^3/uL (150-450); RED BLOOD COUNT 5.08 10^6/uL (4.30-6.10); WHITE BLOOD COUNT 6.8 10^3/uL (4.0-10.0)
[2024-02-28 12:41] LABS: ALBUMIN 3.7 G/DL (3.2-5.2); BILIRUBIN,DIRECT 0.4 MG/DL (<0.4); BILIRUBIN,TOTAL 0.9 MG/DL (0.3-1.2); TOTAL PROTEIN 6.9 G/DL (5.7-8.2)
== END 2024-02-28 14:50 | disposition left against medical advice (07) ==
LOC: M ED 11:41
DX: R10.9 Unspecified abdominal pain (principal); K59.00 Constipation, unspecified; N40.0 Benign prostatic hyperplasia without lower urinary tract symptoms; R16.2 Hepatomegaly with splenomegaly, not elsewhere classified; K21.9 Gastro-esophageal reflux disease without esophagitis; K57.90 Diverticulosis of intestine, part unspecified, without perforation or abscess without bleeding; Z79.1 Long term (current) use of non-steroidal anti-inflammatories (NSAID); Z79.84 Long term (current) use of oral hypoglycemic drugs; Z79.4 Long term (current) use of insulin; Z79.810 Long term (current) use of selective estrogen receptor modulators (SERMs); Z79.899 Other long term (current) drug therapy; Z53.9 Procedure and treatment not carried out, unspecified reason

== ENCOUNTER 2024-03-01 21:06 | Emergency (ER) | payer MEDICARE, MEDICAID | END 2024-03-01 21:34 | disposition left against medical advice (07) | LOC: M ED 21:06 | DX: Z53.21 Procedure and treatment not carried out due to patient leaving prior to being seen by health care provider (principal) ==

== ENCOUNTER 2024-03-03 06:04 | Emergency (ER) | payer MEDICARE, MEDICAID ==
[~2024-03-03] VITALS: Ht 172.7 cm; Wt 15.8 kg
[2024-03-03 06:04] VITALS: BP 106/65; TEMP 97.1; O2SAT 100
[2024-03-03 08:22] LABS: BASO % 0.3 % (0.0-1.0); EOS # 0.2 10^3/uL (0.0-0.5); EOS % 2.7 % (0.0-3.0); HEMATOCRIT 46.8 % (42.0-52.0); HEMOGLOBIN 16.5 g/dl (13.5-17.5); LYMPH # 2.7 10^3/uL (1.5-5.0); MEAN CORPUSCULAR HGB CONC 35.3 g/dl (32.0-36.5); MEAN CORPUSCULAR VOLUME 90.7 fl (80.0-96.0); MONO # 0.7 10^3/uL (0.0-0.8); MONO % 7.5 % (2.0-8.0); NEUTROPHILS # 5.3 10^3/uL (1.5-8.5); NEUTROPHILS % 59.1 % (36.0-66.0); PLATELET COUNT, AUTOMATED 165 10^3/uL (150-450); RED BLOOD COUNT 5.16 10^6/uL (4.30-6.10)
[2024-03-03 08:33] LABS: INR 1.01; PARTIAL THROMBOPLASTIN TIME 27.6 SECONDS (24.8-34.2)
[2024-03-03 08:45] LABS: LIPASE 25 U/L (12-53)
[2024-03-03 08:46] LABS: AMYLASE 50 U/L (30-118)
[2024-03-03 08:47] LABS: ALBUMIN 3.5 G/DL (3.2-5.2); ALKALINE PHOSPHATASE 87 U/L (46-116); ALT/SGPT 33 U/L (7.0-40); AST/SGOT 18 U/L (<34); BILIRUBIN,DIRECT 0.4 MG/DL (<0.4); BILIRUBIN,TOTAL 0.9 MG/DL (0.3-1.2); BLOOD UREA NITROGEN 26 MG/DL (9-23); CALCIUM LEVEL 8.8 MG/DL (8.5-10.1); CARBON DIOXIDE LEVEL 28 MMOL/L (20-31); CHLORIDE LEVEL 105 MMOL/L (98-107); CREATININE FOR GFR 1.12 MG/DL (0.70-1.30); GLOMERULAR FILTRATION RATE > 60.0 (>56); GLUCOSE, FASTING 251 MG/DL (60-100); POTASSIUM SERUM 4.2 MMOL/L (3.5-5.1); SODIUM LEVEL 137 MMOL/L (136-145); TOTAL PROTEIN 6.6 G/DL (5.7-8.2)
== END 2024-03-03 10:10 | disposition left against medical advice (07) ==
LOC: M ED 06:04
DX: Z53.21 Procedure and treatment not carried out due to patient leaving prior to being seen by health care provider (principal)

== ENCOUNTER 2024-03-05 07:48 | Emergency (ER) | payer MEDICARE, MEDICAID ==
[~2024-03-05] VITALS: Ht 172.7 cm; Wt 77.0 kg
[2024-03-05 08:51] LABS: BASO % 0.4 % (0.0-1.0); EOS # 0.2 10^3/uL (0.0-0.5); HEMATOCRIT 46.1 % (42.0-52.0); HEMOGLOBIN 16.1 g/dl (13.5-17.5); LYMPH # 2.2 10^3/uL (1.5-5.0); LYMPH % 31.3 % (24.0-44.0); MEAN CORPUSCULAR HGB CONC 34.9 g/dl (32.0-36.5); MEAN CORPUSCULAR VOLUME 91.7 fl (80.0-96.0); MONO # 0.6 10^3/uL (0.0-0.8); MONO % 9.2 % (2.0-8.0); NEUTROPHILS # 3.9 10^3/uL (1.5-8.5); NEUTROPHILS % 55.7 % (36.0-66.0); PLATELET COUNT, AUTOMATED 157 10^3/uL (150-450); RED BLOOD COUNT 5.03 10^6/uL (4.30-6.10); WHITE BLOOD COUNT 6.9 10^3/uL (4.0-10.0)
[2024-03-05 09:14] LABS: LIPASE 24 U/L (12-53)
[2024-03-05 09:17] LABS: ALBUMIN 3.6 G/DL (3.2-5.2); ALKALINE PHOSPHATASE 83 U/L (46-116); ALT/SGPT 32 U/L (7.0-40); AST/SGOT 23 U/L (<34); BILIRUBIN,DIRECT 0.5 MG/DL (<0.4); BILIRUBIN,TOTAL 1.1 MG/DL (0.3-1.2); BLOOD UREA NITROGEN 25 MG/DL (9-23); CALCIUM LEVEL 9.2 MG/DL (8.5-10.1); CARBON DIOXIDE LEVEL 31 MMOL/L (20-31); CHLORIDE LEVEL 103 MMOL/L (98-107); GLOMERULAR FILTRATION RATE > 60.0 (>56); GLUCOSE, FASTING 296 MG/DL (60-100); POTASSIUM SERUM 4.4 MMOL/L (3.5-5.1); SODIUM LEVEL 137 MMOL/L (136-145); TOTAL PROTEIN 6.4 G/DL (5.7-8.2)
[2024-03-05 10:22] LABS: C REACTIVE PROTEIN QUANTITATIV < 0.40 MG/DL (<1.0)
[2024-03-05 10:47] VITALS: BP 179/98; TEMP 98; O2SAT 100
[2024-03-05] MEDS ORDERED: MIRA3350 PO (11:15)
== END 2024-03-05 11:28 | disposition home or self-care (01) ==
LOC: M ED 07:48
DX: R10.9 Unspecified abdominal pain (principal); K59.00 Constipation, unspecified; E11.9 Type 2 diabetes mellitus without complications; I10 Essential (primary) hypertension; F31.9 Bipolar disorder, unspecified; Z79.1 Long term (current) use of non-steroidal anti-inflammatories (NSAID); Z79.84 Long term (current) use of oral hypoglycemic drugs; Z79.4 Long term (current) use of insulin; Z79.810 Long term (current) use of selective estrogen receptor modulators (SERMs); Z79.899 Other long term (current) drug therapy

== ENCOUNTER 2024-03-11 10:43 | Emergency (ER) | payer MEDICARE, MEDICAID ==
[~2024-03-11] VITALS: Ht 172.7 cm; Wt 74.4 kg
[2024-03-11 11:59] LABS: BASO % 0.4 % (0.0-1.0); EOS # 0.1 10^3/uL (0.0-0.5); EOS % 1.8 % (0.0-3.0); HEMATOCRIT 47.9 % (42.0-52.0); LYMPH # 2.4 10^3/uL (1.5-5.0); LYMPH % 34.3 % (24.0-44.0); MEAN CORPUSCULAR HEMOGLOBIN 31.9 pg (27.0-33.0); MEAN CORPUSCULAR HGB CONC 35.5 g/dl (32.0-36.5); MEAN CORPUSCULAR VOLUME 89.9 fl (80.0-96.0); MONO # 0.5 10^3/uL (0.0-0.8); MONO % 7.6 % (2.0-8.0); NEUTROPHILS # 3.8 10^3/uL (1.5-8.5); NEUTROPHILS % 55.6 % (36.0-66.0); RED BLOOD COUNT 5.33 10^6/uL (4.30-6.10); WHITE BLOOD COUNT 6.9 10^3/uL (4.0-10.0)
[2024-03-11 12:14] LABS: ALBUMIN 3.8 G/DL (3.2-5.2); ALKALINE PHOSPHATASE 78 U/L (46-116); ALT/SGPT 36 U/L (7.0-40); AST/SGOT 40 U/L (<34); BILIRUBIN,DIRECT 0.3 MG/DL (<0.4); BLOOD UREA NITROGEN 30 MG/DL (9-23); CALCIUM LEVEL 9.6 MG/DL (8.5-10.1); CARBON DIOXIDE LEVEL 26 MMOL/L (20-31); CHLORIDE LEVEL 100 MMOL/L (98-107); CREATININE FOR GFR 1.06 MG/DL (0.70-1.30); GLOMERULAR FILTRATION RATE > 60.0 (>56); GLUCOSE, FASTING 463 MG/DL (60-100); POTASSIUM SERUM 5.5 MMOL/L (3.5-5.1); SODIUM LEVEL 135 MMOL/L (136-145)
[2024-03-11] MEDS ORDERED: ISOVUE-370 76% 100ML VIAL As Ordered ONE (12:54)
[2024-03-11] MEDS: NS 1,000 ML IV ONE (13:10)
[2024-03-11 13:11] LABS: CPK CREATINE PHOSPHOKINASE 165 U/L (46-171); MB/CK RELATIVE INDEX 4.24 (< OR =4)
[2024-03-11 14:33] VITALS: BP 130/74; TEMP 97; O2SAT 99
== END 2024-03-11 14:41 | disposition home or self-care (01) ==
LOC: M ED 10:43
DX: R10.9 Unspecified abdominal pain (principal); R06.02 Shortness of breath; I48.91 Unspecified atrial fibrillation; I25.2 Old myocardial infarction; E11.9 Type 2 diabetes mellitus without complications; Z79.1 Long term (current) use of non-steroidal anti-inflammatories (NSAID); Z79.4 Long term (current) use of insulin; Z79.84 Long term (current) use of oral hypoglycemic drugs; Z79.899 Other long term (current) drug therapy; Z79.810 Long term (current) use of selective estrogen receptor modulators (SERMs)
CPT/HCPCS: 71045; 71275; 74018; 80047; 80048; 80076; 82550; 82553; 84484; 85025; 93005; 93041; 94760; 96360; 99284; Q9967

== ENCOUNTER 2024-03-15 20:11 | Emergency (ER) | payer MEDICARE, MEDICAID ==
[~2024-03-15] VITALS: Ht 172.7 cm; Wt 77.0 kg
[2024-03-15 22:31] VITALS: BP 137/83; TEMP 96.1; O2SAT 98
== END 2024-03-15 22:32 | disposition home or self-care (01) ==
LOC: M ED 20:11
DX: R30.0 Dysuria (principal); Z79.1 Long term (current) use of non-steroidal anti-inflammatories (NSAID); Z79.84 Long term (current) use of oral hypoglycemic drugs; Z79.4 Long term (current) use of insulin; Z79.810 Long term (current) use of selective estrogen receptor modulators (SERMs); Z79.899 Other long term (current) drug therapy

== ENCOUNTER 2024-03-25 05:35 | Emergency (ER) | payer MEDICARE, MEDICAID ==
[~2024-03-25] VITALS: Ht 172.7 cm; Wt 75.2 kg
[2024-03-25 05:35] VITALS: BP 153/75; TEMP 97.3; O2SAT 95
== END 2024-03-25 09:09 | disposition left against medical advice (07) ==
LOC: M ED 05:35
DX: Z53.21 Procedure and treatment not carried out due to patient leaving prior to being seen by health care provider (principal)

== ENCOUNTER 2024-03-31 22:07 | Emergency (ER) | payer MEDICARE, MEDICAID ==
[~2024-03-31] VITALS: Ht 172.7 cm; Wt 74.5 kg
[2024-03-31 22:46] LABS: BASO % 0.3 % (0.0-1.0); EOS # 0.2 10^3/uL (0.0-0.5); EOS % 1.8 % (0.0-3.0); HEMATOCRIT 46.9 % (42.0-52.0); HEMOGLOBIN 16.9 g/dl (13.5-17.5); LYMPH # 3.8 10^3/uL (1.5-5.0); LYMPH % 42.1 % (24.0-44.0); MEAN CORPUSCULAR HEMOGLOBIN 32.4 pg (27.0-33.0); MEAN CORPUSCULAR VOLUME 89.8 fl (80.0-96.0); MONO # 0.8 10^3/uL (0.0-0.8); MONO % 8.7 % (2.0-8.0); NEUTROPHILS # 4.2 10^3/uL (1.5-8.5); NEUTROPHILS % 46.8 % (36.0-66.0); PLATELET COUNT, AUTOMATED 169 10^3/uL (150-450); RED BLOOD COUNT 5.22 10^6/uL (4.30-6.10)
[2024-03-31 23:24] LABS: ALBUMIN 3.9 G/DL (3.2-5.2); ALKALINE PHOSPHATASE 84 U/L (46-116); ALT/SGPT 44 U/L (7.0-40); AST/SGOT 21 U/L (<34); BILIRUBIN,TOTAL 1.2 MG/DL (0.3-1.2); BLOOD UREA NITROGEN 27 MG/DL (9-23); CALCIUM LEVEL 9.7 MG/DL (8.5-10.1); CARBON DIOXIDE LEVEL 28 MMOL/L (20-31); CHLORIDE LEVEL 100 MMOL/L (98-107); CK-MB VALUE MASS 9.2 NG/ML (<3.6); CREATININE FOR GFR 1.19 MG/DL (0.70-1.30); GLOMERULAR FILTRATION RATE > 60.0 (>56); GLUCOSE, FASTING 341 MG/DL (60-100); SODIUM LEVEL 135 MMOL/L (136-145); TOTAL PROTEIN 6.9 G/DL (5.7-8.2)
[2024-03-31 23:49] LABS: CPK CREATINE PHOSPHOKINASE 285 U/L (46-171); MB/CK RELATIVE INDEX 3.22 (< OR =4)
[2024-04-01 01:25] LABS: CK-MB VALUE MASS 8.7 NG/ML (<3.6)
[2024-04-01 01:30] VITALS: TEMP 98
[2024-04-01 01:37] LABS: MB/CK RELATIVE INDEX 3.56 (< OR =4)
[2024-04-01 02:00] VITALS: BP 117/67; O2SAT 97
[2024-04-01 02:46] LABS: MAGNESIUM LEVEL 2.1 MG/DL (1.8-2.4)
== END 2024-04-01 02:59 | disposition left against medical advice (07) ==
LOC: M ED 22:07
DX: R07.9 Chest pain, unspecified (principal); R94.31 Abnormal electrocardiogram [ECG] [EKG]; E11.9 Type 2 diabetes mellitus without complications; I10 Essential (primary) hypertension; Z79.1 Long term (current) use of non-steroidal anti-inflammatories (NSAID); Z79.4 Long term (current) use of insulin; Z79.84 Long term (current) use of oral hypoglycemic drugs; Z79.810 Long term (current) use of selective estrogen receptor modulators (SERMs); Z79.899 Other long term (current) drug therapy; Z53.9 Procedure and treatment not carried out, unspecified reason

== ENCOUNTER 2024-04-05 16:48 | Emergency (ER) | payer MEDICARE, MEDICAID ==
[~2024-04-05] VITALS: Ht 172.7 cm; Wt 74.2 kg
[2024-04-05 17:14] VITALS: BP 136/75; TEMP 98.2; O2SAT 97
== END 2024-04-05 18:12 | disposition home or self-care (01) ==
LOC: M ED 16:48
DX: R07.9 Chest pain, unspecified (principal); F41.9 Anxiety disorder, unspecified; I49.3 Ventricular premature depolarization; E11.9 Type 2 diabetes mellitus without complications; I10 Essential (primary) hypertension; E78.5 Hyperlipidemia, unspecified; Z79.1 Long term (current) use of non-steroidal anti-inflammatories (NSAID); Z79.84 Long term (current) use of oral hypoglycemic drugs; Z79.4 Long term (current) use of insulin; Z79.810 Long term (current) use of selective estrogen receptor modulators (SERMs); Z79.899 Other long term (current) drug therapy

== ENCOUNTER 2024-04-10 14:53 | Emergency (ER) | payer MEDICARE, MEDICAID ==
[~2024-04-10] VITALS: Ht 172.7 cm; Wt 73.8 kg
[2024-04-10 14:53] VITALS: BP 119/76; TEMP 97.3; O2SAT 98
== END 2024-04-10 16:45 | disposition left against medical advice (07) ==
LOC: M ED 14:53
DX: Z53.21 Procedure and treatment not carried out due to patient leaving prior to being seen by health care provider (principal)

== ENCOUNTER 2024-04-16 21:09 | Emergency (ER) | payer MEDICARE, MEDICAID ==
[~2024-04-16] VITALS: Ht 172.7 cm; Wt 74.7 kg
[~2024-04-16 21:09] MED LIST changes: +ONDA-282 PO; -ONDA4TAB6 PO
[2024-04-16 21:56] VITALS: TEMP 98
[2024-04-16 22:23] LABS: BASO % 0.5 % (0.0-1.0); EOS # 0.2 10^3/uL (0.0-0.5); EOS % 1.8 % (0.0-3.0); HEMATOCRIT 46.1 % (42.0-52.0); HEMOGLOBIN 16.4 g/dl (13.5-17.5); LYMPH # 2.6 10^3/uL (1.5-5.0); LYMPH % 30.7 % (24.0-44.0); MEAN CORPUSCULAR HGB CONC 35.6 g/dl (32.0-36.5); MEAN CORPUSCULAR VOLUME 89.9 fl (80.0-96.0); MONO # 0.7 10^3/uL (0.0-0.8); MONO % 8.8 % (2.0-8.0); NEUTROPHILS # 4.9 10^3/uL (1.5-8.5); NEUTROPHILS % 57.8 % (36.0-66.0); PLATELET COUNT, AUTOMATED 155 10^3/uL (150-450); RED BLOOD COUNT 5.13 10^6/uL (4.30-6.10); WHITE BLOOD COUNT 8.4 10^3/uL (4.0-10.0)
[2024-04-16 22:30] VITALS: BP 164/96; O2SAT 99
[2024-04-16 22:36] LABS: LIPASE 31 U/L (12-53)
[2024-04-16 22:37] LABS: CK-MB VALUE MASS 4.6 NG/ML (<3.6)
[2024-04-16 22:51] LABS: ALBUMIN 3.5 G/DL (3.2-5.2); ALKALINE PHOSPHATASE 78 U/L (46-116); ALT/SGPT 27 U/L (7.0-40); AST/SGOT 10 U/L (<34); BILIRUBIN,DIRECT 0.3 MG/DL (<0.4); BILIRUBIN,TOTAL 0.8 MG/DL (0.3-1.2); BLOOD UREA NITROGEN 23 MG/DL (9-23); CALCIUM LEVEL 8.7 MG/DL (8.5-10.1); CARBON DIOXIDE LEVEL 28 MMOL/L (20-31); CHLORIDE LEVEL 102 MMOL/L (98-107); CPK CREATINE PHOSPHOKINASE 127 U/L (46-171); CREATININE FOR GFR 1.12 MG/DL (0.70-1.30); GLOMERULAR FILTRATION RATE > 60.0 (>56); GLUCOSE, FASTING 489 MG/DL (60-100); MB/CK RELATIVE INDEX 3.62 (< OR =4); POTASSIUM SERUM 4.2 MMOL/L (3.5-5.1); SODIUM LEVEL 134 MMOL/L (136-145); TOTAL PROTEIN 6.6 G/DL (5.7-8.2)
== END 2024-04-16 22:45 | disposition left against medical advice (07) ==
LOC: M ED 21:09
DX: R10.9 Unspecified abdominal pain (principal); R94.31 Abnormal electrocardiogram [ECG] [EKG]; E11.9 Type 2 diabetes mellitus without complications; Z79.1 Long term (current) use of non-steroidal anti-inflammatories (NSAID); Z79.84 Long term (current) use of oral hypoglycemic drugs; Z79.4 Long term (current) use of insulin; Z79.899 Other long term (current) drug therapy; Z53.9 Procedure and treatment not carried out, unspecified reason

== ENCOUNTER → 2024-04-16 | Outpatient (REF) | payer MEDICARE, MEDICAID ==
[2024-04-16 14:45] LABS: CREATININE, URINE 37.5 MG/DL; MAU/CREAT RATIO 74.6 MCG/MG (0.0-30.0)
== END ==
LOC: M LAB REF 12:34
PROVIDERS: ATTEND Nurse Practitioner Family
DX: E11.9 Type 2 diabetes mellitus without complications (principal)

== ENCOUNTER → 2024-04-17 | Outpatient (REF) | payer MEDICARE, MEDICAID ==
[~2024-04-17] MED LIST changes: -ONDA-282 PO; +ONDA4TAB6 PO
[2024-04-17 13:56] LABS: CREATININE, URINE 62.4 MG/DL
[2024-04-17 13:57] LABS: MAU/CREAT RATIO 68.9 MCG/MG (0.0-30.0)
[2024-04-17 14:15] LABS: CHOLESTEROL RISK RATIO 2.74 (<5); HDL CHOLESTEROL 34.6 MG/DL (>40); LDL CHOLESTEROL 27.4 MG/DL (<100); NON-HDL-C 60.4 MG/DL
== END ==
LOC: M LAB REF 12:31
PROVIDERS: ATTEND Nurse Practitioner Family
DX: E11.9 Type 2 diabetes mellitus without complications (principal)

== ENCOUNTER 2024-04-27 18:27 | Emergency (ER) | payer MEDICARE, MEDICAID ==
[~2024-04-27] VITALS: Ht 172.7 cm; Wt 75.0 kg
[2024-04-27 18:27] VITALS: TEMP 97.1
[~2024-04-27 18:27] MED LIST changes: +ONDA-282 PO; -ONDA4TAB6 PO
[2024-04-27 19:13] LABS: BASO % 0.4 % (0.0-1.0); EOS # 0.1 10^3/uL (0.0-0.5); EOS % 1.8 % (0.0-3.0); HEMATOCRIT 43.4 % (42.0-52.0); HEMOGLOBIN 15.5 g/dl (13.5-17.5); LYMPH # 2.4 10^3/uL (1.5-5.0); LYMPH % 33.8 % (24.0-44.0); MEAN CORPUSCULAR HEMOGLOBIN 32.4 pg (27.0-33.0); MEAN CORPUSCULAR HGB CONC 35.7 g/dl (32.0-36.5); MEAN CORPUSCULAR VOLUME 90.8 fl (80.0-96.0); MONO # 0.5 10^3/uL (0.0-0.8); MONO % 7.5 % (2.0-8.0); NEUTROPHILS % 56.2 % (36.0-66.0); PLATELET COUNT, AUTOMATED 140 10^3/uL (150-450); RED BLOOD COUNT 4.78 10^6/uL (4.30-6.10); WHITE BLOOD COUNT 7.1 10^3/uL (4.0-10.0)
[2024-04-27 19:44] LABS: CK-MB VALUE MASS 11.8 NG/ML (<3.6)
[2024-04-27 19:45] LABS: LIPASE 19 U/L (12-53)
[2024-04-27 19:47] LABS: ALBUMIN 3.2 G/DL (3.2-5.2); ALKALINE PHOSPHATASE 80 U/L (46-116); ALT/SGPT 37 U/L (7.0-40); AST/SGOT 30 U/L (<34); BILIRUBIN,DIRECT 0.4 MG/DL (<0.4); BLOOD UREA NITROGEN 13 MG/DL (9-23); CALCIUM LEVEL 8.6 MG/DL (8.5-10.1); CARBON DIOXIDE LEVEL 28 MMOL/L (20-31); CHLORIDE LEVEL 109 MMOL/L (98-107); CREATININE FOR GFR 1.05 MG/DL (0.70-1.30); GLOMERULAR FILTRATION RATE > 60.0 (>56); GLUCOSE, FASTING 232 MG/DL (60-100); POTASSIUM SERUM 3.9 MMOL/L (3.5-5.1); SODIUM LEVEL 141 MMOL/L (136-145); TOTAL PROTEIN 6.1 G/DL (5.7-8.2)
[2024-04-27 19:49] LABS: THYROID STIMULATING HORMONE 0.979 uIU/ML (0.55-4.78)
[2024-04-27] MEDS: KETOROLAC 30 MG/ML 1ML VIAL IV ONE (19:56)
[2024-04-27 19:57] LABS: CPK CREATINE PHOSPHOKINASE 459 U/L (46-171); MB/CK RELATIVE INDEX 2.57 (< OR =4)
[2024-04-27] MEDS: predniSONE 20 MG TAB PO ONE (20:32)
[2024-04-27 21:12] LABS: CK-MB VALUE MASS 10.1 NG/ML (<3.6); MB/CK RELATIVE INDEX 2.55 (< OR =4)
[2024-04-27 21:15] VITALS: BP 125/66; O2SAT 97
[2024-04-27] MEDS ORDERED: MEDR4PAK PO (21:15)
== END 2024-04-27 21:32 | disposition home or self-care (01) ==
LOC: M ED 18:27
DX: R07.89 Other chest pain (principal); E11.9 Type 2 diabetes mellitus without complications; E78.5 Hyperlipidemia, unspecified; F17.210 Nicotine dependence, cigarettes, uncomplicated; R94.31 Abnormal electrocardiogram [ECG] [EKG]; Z79.1 Long term (current) use of non-steroidal anti-inflammatories (NSAID); Z79.4 Long term (current) use of insulin; Z79.84 Long term (current) use of oral hypoglycemic drugs; Z79.810 Long term (current) use of selective estrogen receptor modulators (SERMs); Z79.899 Other long term (current) drug therapy
CPT/HCPCS: 71045; 72125; 80047; 80048; 80076; 82550; 82553; 83690; 84439; 84443; 84484; 85025; 93005; 93041; 94760; 96374; 99285; J1885; J7512

== ENCOUNTER 2024-05-01 16:58 | Emergency (ER) | payer MEDICARE, MEDICAID ==
[~2024-05-01] VITALS: Ht 172.7 cm; Wt 76.7 kg
[~2024-05-01 16:58] MED LIST changes: +MEDR4PAK PO
[2024-05-01 16:59] VITALS: BP 135/77; TEMP 98.1; O2SAT 97
== END 2024-05-01 19:08 | disposition left against medical advice (07) ==
LOC: M ED 16:58
DX: Z53.21 Procedure and treatment not carried out due to patient leaving prior to being seen by health care provider (principal)

== ENCOUNTER → 2024-05-02 | Outpatient (CLI) | payer MEDICARE, MEDICAID ==
[2024-05-02 08:17] LABS: CHOLESTEROL RISK RATIO 2.69 (<5); HDL CHOLESTEROL 36.8 MG/DL (>40); LDL CHOLESTEROL 30.2 MG/DL (<100); NON-HDL-C 62.2 MG/DL
== END ==
LOC: M LAB 07:26
PROVIDERS: ATTEND Nurse Practitioner Acute Care
DX: E78.2 Mixed hyperlipidemia (principal)

== ENCOUNTER 2024-05-11 17:20 | Emergency (ER) | payer MEDICARE, MEDICAID ==
[~2024-05-11] VITALS: Ht 172.7 cm; Wt 75.1 kg
[2024-05-11 17:21] VITALS: BP 111/72; TEMP 98.6; O2SAT 96
== END 2024-05-11 19:00 | disposition left against medical advice (07) ==
LOC: M ED 17:20
DX: Z53.21 Procedure and treatment not carried out due to patient leaving prior to being seen by health care provider (principal)

== ENCOUNTER 2024-05-18 17:00 | Emergency (ER) | payer MEDICARE, MEDICAID ==
[2024-05-18 17:00] VITALS: BP 133/75; TEMP 98.3; O2SAT 99
[2024-05-18] MEDS: ACETAMINOPHEN 325 MG TAB PO ONE (19:00)
== END 2024-05-18 20:04 | disposition home or self-care (01) ==
LOC: M ED 17:00
DX: R07.89 Other chest pain (principal); I25.2 Old myocardial infarction; E11.9 Type 2 diabetes mellitus without complications; R94.31 Abnormal electrocardiogram [ECG] [EKG]; Z79.1 Long term (current) use of non-steroidal anti-inflammatories (NSAID); Z79.84 Long term (current) use of oral hypoglycemic drugs; Z79.4 Long term (current) use of insulin; Z79.810 Long term (current) use of selective estrogen receptor modulators (SERMs)

== ENCOUNTER 2024-05-24 21:10 | Emergency (ER) | payer MEDICARE, MEDICAID ==
[~2024-05-24] VITALS: Ht 172.7 cm; Wt 73.7 kg
[2024-05-24 21:11] VITALS: BP 113/70; TEMP 98.1; O2SAT 98
== END 2024-05-25 00:40 | disposition left against medical advice (07) ==
LOC: M ED 21:10
DX: Z53.21 Procedure and treatment not carried out due to patient leaving prior to being seen by health care provider (principal)

== ENCOUNTER 2024-06-02 22:56 | Emergency (ER) | payer MEDICARE, MEDICAID ==
[~2024-06-02] VITALS: Ht 172.7 cm; Wt 75.1 kg
[2024-06-02 22:56] VITALS: BP 126/73; TEMP 97.2; O2SAT 99
== END 2024-06-03 00:56 | disposition left against medical advice (07) ==
LOC: M ED 22:56
DX: Z53.21 Procedure and treatment not carried out due to patient leaving prior to being seen by health care provider (principal)

== ENCOUNTER 2024-06-10 21:44 | Emergency (ER) | payer MEDICARE, MEDICAID ==
[~2024-06-10] VITALS: Ht 172.7 cm; Wt 78.5 kg
[2024-06-10 21:45] VITALS: BP 136/97; TEMP 97.7; O2SAT 98
== END 2024-06-10 23:00 | disposition left against medical advice (07) ==
LOC: M ED 21:44
DX: Z53.21 Procedure and treatment not carried out due to patient leaving prior to being seen by health care provider (principal)

== ENCOUNTER 2024-06-20 15:15 | Emergency (ER) | payer MEDICARE, MEDICAID ==
[~2024-06-20] VITALS: Ht 172.7 cm; Wt 75.0 kg
[2024-06-20 15:17] VITALS: BP 120/67; TEMP 97.3; O2SAT 98
== END 2024-06-20 17:36 | disposition left against medical advice (07) ==
LOC: M ED 15:15
DX: Z53.21 Procedure and treatment not carried out due to patient leaving prior to being seen by health care provider (principal)

== ENCOUNTER → 2024-06-23 | Outpatient (REF) | payer MEDICARE, MEDICAID ==
[2024-06-23 13:09] LABS: APPEARANCE, URINE CLEAR (CLEAR); BACTERIA, URINE AUTO NEGATIVE (NEGATIVE); BILIRUBIN, URINE AUTO NEGATIVE (NEGATIVE); BLOOD, URINE BLOOD NEGATIVE (NEGATIVE); COLOR, URINE STRAW (YELLOW); GLUCOSE, URINE (UA) AUTO 3+ mg/dL (NEGATIVE); KETONE, URINE AUTO NEGATIVE (NEGATIVE); LEUKOCYTE ESTERASE, URINE AUTO NEGATIVE (NEGATIVE); NITRITE, URINE AUTO NEGATIVE (NEGATIVE); PROTEIN, URINE AUTO NEGATIVE (NEGATIVE); RBC, URINE AUTO 0 /HPF (0-3); SPECIFIC GRAVITY URINE AUTO 1.031 (1.002-1.035); SQUAMOUS EPITHELIAL CELL UR AU 0 /HPF (0-6); UROBILINOGEN, URINE AUTO 0.2 mg/dL (0.0-2.0); WBC, URINE AUTO 0 /HPF (0-3)
== END ==
LOC: M SFHCPLAZ 11:44
PROVIDERS: ATTEND Student in an Organized Health Care Education/Training Program
DX: N32.89 Other specified disorders of bladder (principal)

== ENCOUNTER 2024-06-28 13:17 | Emergency (ER) | payer MEDICARE, MEDICAID ==
[~2024-06-28] VITALS: Ht 172.7 cm; Wt 75.5 kg
[2024-06-28 13:19] VITALS: BP 121/70; TEMP 97.8; O2SAT 98
[2024-06-28] MEDS ORDERED: MYRB25TA PO (13:26)
[2024-06-28 14:03] LABS: BASO % 0.2 % (0.0-1.0); EOS # 0.1 10^3/uL (0.0-0.5); EOS % 1.6 % (0.0-3.0); HEMATOCRIT 46.8 % (42.0-52.0); HEMOGLOBIN 16.7 g/dl (13.5-17.5); LYMPH # 2.8 10^3/uL (1.5-5.0); LYMPH % 32.9 % (24.0-44.0); MEAN CORPUSCULAR HEMOGLOBIN 32.2 pg (27.0-33.0); MEAN CORPUSCULAR HGB CONC 35.7 g/dl (32.0-36.5); MEAN CORPUSCULAR VOLUME 90.3 fl (80.0-96.0); MONO # 0.6 10^3/uL (0.0-0.8); MONO % 7.5 % (2.0-8.0); NEUTROPHILS # 4.9 10^3/uL (1.5-8.5); NEUTROPHILS % 57.4 % (36.0-66.0); PLATELET COUNT, AUTOMATED 154 10^3/uL (150-450); RED BLOOD COUNT 5.18 10^6/uL (4.30-6.10); WHITE BLOOD COUNT 8.5 10^3/uL (4.0-10.0)
[2024-06-28 14:25] LABS: LIPASE 18 U/L (12-53)
[2024-06-28 14:30] LABS: ALBUMIN 3.7 G/DL (3.2-5.2); ALKALINE PHOSPHATASE 83 U/L (46-116); ALT/SGPT 28 U/L (7.0-40); AST/SGOT 11 U/L (<34); BILIRUBIN,DIRECT 0.3 MG/DL (<0.4); BLOOD UREA NITROGEN 23 MG/DL (9-23); CALCIUM LEVEL 8.9 MG/DL (8.5-10.1); CARBON DIOXIDE LEVEL 24 MMOL/L (20-31); CHLORIDE LEVEL 101 MMOL/L (98-107); CREATININE FOR GFR 1.17 MG/DL (0.70-1.30); GLOMERULAR FILTRATION RATE > 60.0 (>56); GLUCOSE, FASTING 542 MG/DL (60-100); POTASSIUM SERUM 4.2 MMOL/L (3.5-5.1); SODIUM LEVEL 132 MMOL/L (136-145); TOTAL PROTEIN 6.7 G/DL (5.7-8.2)
== END 2024-06-28 14:00 | disposition left against medical advice (07) ==
LOC: M ED 13:17
DX: Z53.21 Procedure and treatment not carried out due to patient leaving prior to being seen by health care provider (principal)

== ENCOUNTER 2024-07-01 08:24 | Emergency (ER) | payer MEDICARE, MEDICAID ==
[~2024-07-01] VITALS: Ht 172.7 cm; Wt 74.8 kg
[2024-07-01 08:25] VITALS: BP 128/68; TEMP 97; O2SAT 99
== END 2024-07-01 11:08 | disposition left against medical advice (07) ==
LOC: M ED 08:24
DX: Z53.21 Procedure and treatment not carried out due to patient leaving prior to being seen by health care provider (principal)

== ENCOUNTER → 2024-07-01 | Outpatient (REF) | payer MEDICARE, MEDICAID ==
[~2024-07-01] MED LIST changes: +MYRB25TA PO
== END ==
LOC: M SFHCPLAZ 17:02
PROVIDERS: ATTEND Physician Assistant Medical
DX: R30.0 Dysuria (principal)

== ENCOUNTER 2024-07-04 16:28 | Emergency (ER) | payer MEDICARE, MEDICAID ==
[~2024-07-04] VITALS: Ht 172.7 cm; Wt 74.1 kg
[2024-07-04 16:29] VITALS: BP 125/85; TEMP 98.1; O2SAT 97
[2024-07-04 17:36] LABS: BASO % 0.4 % (0.0-1.0); EOS # 0.2 10^3/uL (0.0-0.5); EOS % 1.6 % (0.0-3.0); HEMATOCRIT 48.7 % (42.0-52.0); HEMOGLOBIN 17.3 g/dl (13.5-17.5); LYMPH # 3.4 10^3/uL (1.5-5.0); LYMPH % 32.5 % (24.0-44.0); MEAN CORPUSCULAR HEMOGLOBIN 31.8 pg (27.0-33.0); MEAN CORPUSCULAR HGB CONC 35.5 g/dl (32.0-36.5); MEAN CORPUSCULAR VOLUME 89.5 fl (80.0-96.0); MONO # 0.8 10^3/uL (0.0-0.8); MONO % 7.3 % (2.0-8.0); NEUTROPHILS % 57.7 % (36.0-66.0); PLATELET COUNT, AUTOMATED 156 10^3/uL (150-450); RED BLOOD COUNT 5.44 10^6/uL (4.30-6.10); WHITE BLOOD COUNT 10.4 10^3/uL (4.0-10.0)
[2024-07-04 18:04] LABS: LIPASE 31 U/L (12-53)
[2024-07-04 18:05] LABS: AMYLASE 38 U/L (30-118)
[2024-07-04 18:11] LABS: ALBUMIN 3.8 G/DL (3.2-5.2); ALKALINE PHOSPHATASE 90 U/L (46-116); ALT/SGPT 29 U/L (7.0-40); AST/SGOT 13 U/L (<34); BILIRUBIN,DIRECT 0.2 MG/DL (<0.4); BLOOD UREA NITROGEN 19 MG/DL (9-23); CALCIUM LEVEL 9.4 MG/DL (8.5-10.1); CARBON DIOXIDE LEVEL 26 MMOL/L (20-31); CHLORIDE LEVEL 101 MMOL/L (98-107); CREATININE FOR GFR 1.12 MG/DL (0.70-1.30); GLOMERULAR FILTRATION RATE > 60.0 (>56); GLUCOSE, FASTING 510 MG/DL (60-100); POTASSIUM SERUM 4.7 MMOL/L (3.5-5.1); SODIUM LEVEL 134 MMOL/L (136-145); TOTAL PROTEIN 7.1 G/DL (5.7-8.2)
== END 2024-07-04 19:17 | disposition left against medical advice (07) ==
LOC: M ED 16:28
DX: Z53.21 Procedure and treatment not carried out due to patient leaving prior to being seen by health care provider (principal)

== ENCOUNTER → 2024-07-09 | Outpatient (CLI) | payer MEDICARE, MEDICAID ==
[2024-07-09 10:35] LABS: APPEARANCE, URINE CLEAR (CLEAR); BACTERIA, URINE AUTO NEGATIVE (NEGATIVE); BILIRUBIN, URINE AUTO NEGATIVE (NEGATIVE); BLOOD, URINE BLOOD NEGATIVE (NEGATIVE); COLOR, URINE YELLOW (YELLOW); GLUCOSE, URINE (UA) AUTO 3+ mg/dL (NEGATIVE); KETONE, URINE AUTO NEGATIVE (NEGATIVE); LEUKOCYTE ESTERASE, URINE AUTO NEGATIVE (NEGATIVE); NITRITE, URINE AUTO NEGATIVE (NEGATIVE); PROTEIN, URINE AUTO NEGATIVE (NEGATIVE); RBC, URINE AUTO 0 /HPF (0-3); SPECIFIC GRAVITY URINE AUTO 1.028 (1.002-1.035); SQUAMOUS EPITHELIAL CELL UR AU 0 /HPF (0-6); UROBILINOGEN, URINE AUTO 0.2 mg/dL (0.0-2.0); WBC, URINE AUTO 9 /HPF (0-3)
[2024-07-09 10:36] LABS: BASO % 0.3 % (0.0-1.0); EOS # 0.2 10^3/uL (0.0-0.5); EOS % 1.7 % (0.0-3.0); HEMATOCRIT 51.8 % (42.0-52.0); LYMPH # 3.3 10^3/uL (1.5-5.0); LYMPH % 35.3 % (24.0-44.0); MEAN CORPUSCULAR HEMOGLOBIN 32.1 pg (27.0-33.0); MEAN CORPUSCULAR HGB CONC 34.7 g/dl (32.0-36.5); MEAN CORPUSCULAR VOLUME 92.3 fl (80.0-96.0); MONO # 0.7 10^3/uL (0.0-0.8); MONO % 7.5 % (2.0-8.0); NEUTROPHILS # 5.1 10^3/uL (1.5-8.5); NEUTROPHILS % 54.8 % (36.0-66.0); PLATELET COUNT, AUTOMATED 157 10^3/uL (150-450); RED BLOOD COUNT 5.61 10^6/uL (4.30-6.10); WHITE BLOOD COUNT 9.4 10^3/uL (4.0-10.0)
[2024-07-09 10:45] LABS: ALBUMIN 3.9 G/DL (3.2-5.2); ALKALINE PHOSPHATASE 79 U/L (46-116); ALT/SGPT 30 U/L (7.0-40); AST/SGOT 14 U/L (<34); BILIRUBIN,TOTAL 0.8 MG/DL (0.3-1.2); BLOOD UREA NITROGEN 25 MG/DL (9-23); CALCIUM LEVEL 9.4 MG/DL (8.5-10.1); CARBON DIOXIDE LEVEL 27 MMOL/L (20-31); CHLORIDE LEVEL 104 MMOL/L (98-107); CHOLESTEROL LEVEL 113 MG/DL (<200); CHOLESTEROL RISK RATIO 3.53 (<5); GLOMERULAR FILTRATION RATE > 60.0 (>56); GLUCOSE, FASTING 319 MG/DL (60-100); LDL CHOLESTEROL 25.6 MG/DL (<100); PROSTATIC SPECIFIC AG MONITOR 3.32 NG/ML (< 4.00); SODIUM LEVEL 136 MMOL/L (136-145); TOTAL PROTEIN 7.1 G/DL (5.7-8.2); TRIGLYCERIDES LEVEL 277 MG/DL (<150)
[2024-07-09 11:02] LABS: HEMOGLOBIN A1c 11.5 % (4.0-6.0)
== END ==
LOC: M PLALAB 07:12
PROVIDERS: ATTEND Student in an Organized Health Care Education/Training Program
DX: N32.89 Other specified disorders of bladder (principal); E11.65 Type 2 diabetes mellitus with hyperglycemia; R97.20 Elevated prostate specific antigen [PSA]; Z76.89 Persons encountering health services in other specified circumstances

== ENCOUNTER 2024-07-12 10:43 | Emergency (ER) | payer MEDICARE, MEDICAID ==
[~2024-07-12] VITALS: Ht 172.7 cm; Wt 74.4 kg
[2024-07-12 12:07] LABS: BASO % 0.4 % (0.0-1.0); EOS # 0.2 10^3/uL (0.0-0.5); EOS % 1.9 % (0.0-3.0); HEMATOCRIT 53.6 % (42.0-52.0); LYMPH # 3.8 10^3/uL (1.5-5.0); LYMPH % 37.4 % (24.0-44.0); MEAN CORPUSCULAR HEMOGLOBIN 31.6 pg (27.0-33.0); MEAN CORPUSCULAR HGB CONC 35.4 g/dl (32.0-36.5); MEAN CORPUSCULAR VOLUME 89.2 fl (80.0-96.0); MONO # 0.7 10^3/uL (0.0-0.8); MONO % 7.3 % (2.0-8.0); NEUTROPHILS # 5.3 10^3/uL (1.5-8.5); NEUTROPHILS % 52.5 % (36.0-66.0); PLATELET COUNT, AUTOMATED 175 10^3/uL (150-450); RED BLOOD COUNT 6.01 10^6/uL (4.30-6.10); WHITE BLOOD COUNT 10.1 10^3/uL (4.0-10.0)
[2024-07-12 12:19] LABS: INR 1.05; PARTIAL THROMBOPLASTIN TIME 26.3 SECONDS (24.8-34.2); PROTHROMBIN TIME 13.4 SECONDS (12.5-14.5)
[2024-07-12 12:28] LABS: LIPASE 23 U/L (12-53)
[2024-07-12 12:29] LABS: CPK CREATINE PHOSPHOKINASE 190 U/L (46-171)
[2024-07-12 12:30] LABS: ALBUMIN 4.2 G/DL (3.2-5.2); ALKALINE PHOSPHATASE 89 U/L (46-116); ALT/SGPT 32 U/L (7.0-40); AST/SGOT 17 U/L (<34); BILIRUBIN,DIRECT 0.6 MG/DL (<0.4); BILIRUBIN,TOTAL 1.9 MG/DL (0.3-1.2); BLOOD UREA NITROGEN 22 MG/DL (9-23); CALCIUM LEVEL 9.3 MG/DL (8.5-10.1); CARBON DIOXIDE LEVEL 28 MMOL/L (20-31); CHLORIDE LEVEL 101 MMOL/L (98-107); CK-MB VALUE MASS 9.7 NG/ML (<3.6); CREATININE FOR GFR 1.16 MG/DL (0.70-1.30); GLOMERULAR FILTRATION RATE > 60.0 (>56); GLUCOSE, FASTING 272 MG/DL (60-100); POTASSIUM SERUM 4.3 MMOL/L (3.5-5.1); SODIUM LEVEL 133 MMOL/L (136-145)
[2024-07-12 12:31] LABS: FREE T4 1.29 NG/DL (0.89-1.76)
[2024-07-12 12:32] LABS: THYROID STIMULATING HORMONE 1.332 uIU/ML (0.55-4.78)
[2024-07-12 13:17] LABS: CK-MB VALUE MASS 7.6 NG/ML (<3.6)
[2024-07-12 13:20] LABS: MB/CK RELATIVE INDEX 4.84 (< OR =4)
[2024-07-12 13:50] VITALS: BP 113/71; TEMP 97.8; O2SAT 99
== END 2024-07-12 13:58 | disposition home or self-care (01) ==
LOC: M ED 10:43
DX: R07.9 Chest pain, unspecified (principal); I49.3 Ventricular premature depolarization; I10 Essential (primary) hypertension; E78.5 Hyperlipidemia, unspecified; E11.9 Type 2 diabetes mellitus without complications; F43.10 Post-traumatic stress disorder, unspecified; F31.9 Bipolar disorder, unspecified; Z86.79 Personal history of other diseases of the circulatory system; Z79.82 Long term (current) use of aspirin; Z79.02 Long term (current) use of antithrombotics/antiplatelets; Z79.4 Long term (current) use of insulin; Z79.899 Other long term (current) drug therapy

== ENCOUNTER 2024-07-29 09:28 | Emergency (ER) | payer MEDICARE, MEDICAID ==
[~2024-07-29] VITALS: Ht 172.7 cm; Wt 73.6 kg
[2024-07-29 09:28] VITALS: BP 132/72; TEMP 97.4; O2SAT 98
[2024-07-29 09:58] LABS: BASO % 0.3 % (0.0-1.0); EOS # 0.2 10^3/uL (0.0-0.5); EOS % 2.1 % (0.0-3.0); HEMATOCRIT 48.8 % (42.0-52.0); HEMOGLOBIN 17.6 g/dl (13.5-17.5); LYMPH # 3.2 10^3/uL (1.5-5.0); LYMPH % 35.6 % (24.0-44.0); MEAN CORPUSCULAR HEMOGLOBIN 32.2 pg (27.0-33.0); MEAN CORPUSCULAR HGB CONC 36.1 g/dl (32.0-36.5); MEAN CORPUSCULAR VOLUME 89.2 fl (80.0-96.0); MONO # 0.6 10^3/uL (0.0-0.8); MONO % 6.7 % (2.0-8.0); NEUTROPHILS % 54.9 % (36.0-66.0); PLATELET COUNT, AUTOMATED 171 10^3/uL (150-450); RED BLOOD COUNT 5.47 10^6/uL (4.30-6.10); WHITE BLOOD COUNT 9.1 10^3/uL (4.0-10.0)
[2024-07-29 10:27] LABS: BLOOD UREA NITROGEN 26 MG/DL (9-23); CALCIUM LEVEL 8.8 MG/DL (8.5-10.1); CARBON DIOXIDE LEVEL 26 MMOL/L (20-31); CHLORIDE LEVEL 107 MMOL/L (98-107); CK-MB VALUE MASS 12.6 NG/ML (<3.6); CREATININE FOR GFR 1.23 MG/DL (0.70-1.30); GLOMERULAR FILTRATION RATE > 60.0 (>56); GLUCOSE, FASTING 317 MG/DL (60-100); POTASSIUM SERUM 4.2 MMOL/L (3.5-5.1); SODIUM LEVEL 137 MMOL/L (136-145)
[2024-07-29 10:28] LABS: CPK CREATINE PHOSPHOKINASE 294 U/L (46-171); MB/CK RELATIVE INDEX 4.28 (< OR =4)
== END 2024-07-29 10:50 | disposition left against medical advice (07) ==
LOC: M ED 09:28
DX: Z53.21 Procedure and treatment not carried out due to patient leaving prior to being seen by health care provider (principal)

== ENCOUNTER → 2024-08-04 | Outpatient (REF) | payer MEDICARE, MEDICAID | LOC: M SFHCPLAZ 12:14 | PROVIDERS: ATTEND Student in an Organized Health Care Education/Training Program | DX: R73.9 Hyperglycemia, unspecified (principal) ==

== ENCOUNTER 2024-08-16 02:18 | Emergency (ER) | payer MEDICARE, MEDICAID ==
[2024-08-16 02:28] VITALS: BP 117/71; TEMP 96.9; O2SAT 99
== END 2024-08-16 03:50 | disposition left against medical advice (07) ==
LOC: M ED 02:18
DX: Z53.21 Procedure and treatment not carried out due to patient leaving prior to being seen by health care provider (principal)

== ENCOUNTER → 2024-08-26 | Outpatient (CLI) | payer MEDICARE, MEDICAID | LOC: M PAIN 16:00 | PROVIDERS: ATTEND Nurse Practitioner Family | DX: M79.12 Myalgia of auxiliary muscles, head and neck (principal); G89.29 Other chronic pain; M79.18 Myalgia, other site; E11.9 Type 2 diabetes mellitus without complications; F43.10 Post-traumatic stress disorder, unspecified; F31.9 Bipolar disorder, unspecified; E78.1 Pure hyperglyceridemia; M47.816 Spondylosis without myelopathy or radiculopathy, lumbar region; R33.9 Retention of urine, unspecified; Z79.4 Long term (current) use of insulin; Z79.82 Long term (current) use of aspirin; Z79.02 Long term (current) use of antithrombotics/antiplatelets; Z79.899 Other long term (current) drug therapy ==

== ENCOUNTER 2024-08-27 10:32 | Emergency (ER) | payer MEDICARE, MEDICAID ==
[~2024-08-27] VITALS: Ht 172.7 cm; Wt 76.5 kg
[2024-08-27 10:41] VITALS: BP 156/93; TEMP 97.4; O2SAT 99
== END 2024-08-27 12:18 | disposition left against medical advice (07) ==
LOC: EDBD 10:32 → M ED 10:32
DX: Z53.21 Procedure and treatment not carried out due to patient leaving prior to being seen by health care provider (principal)

== ENCOUNTER → 2024-09-04 | Outpatient (CLI) | payer MEDICARE, MEDICAID ==
[~2024-09-04] MED LIST changes: +TRIAMCINOLONE ACETONIDE SUSP 40MG/ML 1ML VIAL As Ordered ONE
== END ==
LOC: M PAIN 15:15
PROVIDERS: ATTEND Anesthesiology
DX: M79.12 Myalgia of auxiliary muscles, head and neck (principal); G89.29 Other chronic pain; E11.9 Type 2 diabetes mellitus without complications; F43.10 Post-traumatic stress disorder, unspecified; F31.9 Bipolar disorder, unspecified; E78.1 Pure hyperglyceridemia; Z79.4 Long term (current) use of insulin; Z79.82 Long term (current) use of aspirin; Z79.899 Other long term (current) drug therapy
CPT/HCPCS: 20552; J0665; J3301

== ENCOUNTER 2024-09-12 12:45 | Emergency (ER) | payer MEDICARE, MEDICAID ==
[~2024-09-12] VITALS: Ht 172.7 cm; Wt 78.8 kg
[~2024-09-12 12:45] MED LIST changes: -TRIAMCINOLONE ACETONIDE SUSP 40MG/ML 1ML VIAL As Ordered ONE
[2024-09-12] MEDS: ACETAMINOPHEN *IV* 1,000 MG in IV 1 EA IV ONE (14:57)
[2024-09-12 15:17] LABS: BASO % 0.3 % (0.0-1.0); EOS # 0.1 10^3/uL (0.0-0.5); EOS % 1.1 % (0.0-3.0); HEMATOCRIT 48.1 % (42.0-52.0); HEMOGLOBIN 17.2 g/dl (13.5-17.5); LYMPH # 3.7 10^3/uL (1.5-5.0); MEAN CORPUSCULAR HEMOGLOBIN 32.3 pg (27.0-33.0); MEAN CORPUSCULAR HGB CONC 35.8 g/dl (32.0-36.5); MEAN CORPUSCULAR VOLUME 90.4 fl (80.0-96.0); MONO # 0.9 10^3/uL (0.0-0.8); MONO % 7.5 % (2.0-8.0); NEUTROPHILS # 7.4 10^3/uL (1.5-8.5); NEUTROPHILS % 60.4 % (36.0-66.0); PLATELET COUNT, AUTOMATED 172 10^3/uL (150-450); RED BLOOD COUNT 5.32 10^6/uL (4.30-6.10); WHITE BLOOD COUNT 12.3 10^3/uL (4.0-10.0)
[2024-09-12 15:40] LABS: ALBUMIN 3.9 G/DL (3.2-5.2); BILIRUBIN,DIRECT 0.3 MG/DL (<0.4); BILIRUBIN,TOTAL 0.9 MG/DL (0.3-1.2); TOTAL PROTEIN 7.3 G/DL (5.7-8.2)
[2024-09-12 16:11] LABS: APPEARANCE, URINE CLEAR (CLEAR); BACTERIA, URINE AUTO NEGATIVE (NEGATIVE); BILIRUBIN, URINE AUTO NEGATIVE (NEGATIVE); BLOOD, URINE BLOOD NEGATIVE (NEGATIVE); COLOR, URINE YELLOW (YELLOW); GLUCOSE, URINE (UA) AUTO 3+ mg/dL (NEGATIVE); KETONE, URINE AUTO NEGATIVE (NEGATIVE); LEUKOCYTE ESTERASE, URINE AUTO NEGATIVE (NEGATIVE); MUCUS, URINE SMALL (NEGATIVE); NITRITE, URINE AUTO NEGATIVE (NEGATIVE); PROTEIN, URINE AUTO NEGATIVE (NEGATIVE); RBC, URINE AUTO 0 /HPF (0-3); SPECIFIC GRAVITY URINE AUTO 1.028 (1.002-1.035); SQUAMOUS EPITHELIAL CELL UR AU 0 /HPF (0-6); UROBILINOGEN, URINE AUTO 0.2 mg/dL (0.0-2.0); WBC, URINE AUTO 1 /HPF (0-3)
[2024-09-12] MEDS ORDERED: META0.52 PO (18:06)
[2024-09-12] MEDS ORDERED: COLA100C5 PO (18:06)
[2024-09-12 18:34] VITALS: BP 141/85; TEMP 97.3; O2SAT 97
== END 2024-09-12 18:36 | disposition home or self-care (01) ==
LOC: M ED 12:45
DX: K59.00 Constipation, unspecified (principal); E11.9 Type 2 diabetes mellitus without complications; N40.0 Benign prostatic hyperplasia without lower urinary tract symptoms; M51.369 Other intervertebral disc degeneration, lumbar region without mention of lumbar back pain or lower extremity pain; Z79.82 Long term (current) use of aspirin; Z79.899 Other long term (current) drug therapy
CPT/HCPCS: 74018; 80047; 80076; 81001; 83690; 85025; 96374; 99284; J0131

== ENCOUNTER 2024-09-30 08:17 | Emergency (ER) | payer MEDICARE, MEDICAID ==
[~2024-09-30] VITALS: Ht 172.7 cm; Wt 78.0 kg
[~2024-09-30 08:17] MED LIST changes: +COLA100C5 PO; -CYCL5TAB PO; +CYCL5TAB4 PO; +META0.52 PO
[2024-09-30 08:43] VITALS: BP 134/79; TEMP 97.2; O2SAT 99
== END 2024-09-30 11:05 | disposition left against medical advice (07) ==
LOC: M ED 08:17
DX: Z53.21 Procedure and treatment not carried out due to patient leaving prior to being seen by health care provider (principal)

== ENCOUNTER → 2024-10-09 | Outpatient (CLI) | payer MEDICARE, MEDICAID | LOC: M PAIN 16:30 | PROVIDERS: ATTEND Nurse Practitioner Family | DX: M79.12 Myalgia of auxiliary muscles, head and neck (principal); G89.29 Other chronic pain; E11.9 Type 2 diabetes mellitus without complications; F43.10 Post-traumatic stress disorder, unspecified; F31.9 Bipolar disorder, unspecified; E78.1 Pure hyperglyceridemia; M47.816 Spondylosis without myelopathy or radiculopathy, lumbar region; R33.9 Retention of urine, unspecified; Z79.82 Long term (current) use of aspirin; Z79.02 Long term (current) use of antithrombotics/antiplatelets; Z79.4 Long term (current) use of insulin; Z79.899 Other long term (current) drug therapy ==

== ENCOUNTER → 2024-10-24 | Outpatient (CLI) | payer MEDICARE, MEDICAID ==
[2024-10-24 15:44] LABS: BLOOD UREA NITROGEN 26 MG/DL (9-23); CALCIUM LEVEL 9.4 MG/DL (8.5-10.1); CARBON DIOXIDE LEVEL 30 MMOL/L (20-31); CHLORIDE LEVEL 104 MMOL/L (98-107); CREATININE FOR GFR 1.09 MG/DL (0.70-1.30); GLOMERULAR FILTRATION RATE > 60.0 (>56); GLUCOSE, FASTING 225 MG/DL (60-100); POTASSIUM SERUM 4.7 MMOL/L (3.5-5.1); SODIUM LEVEL 139 MMOL/L (136-145)
== END ==
LOC: M PLALAB 08:10
PROVIDERS: ATTEND Nurse Practitioner Acute Care
DX: I50.20 Unspecified systolic (congestive) heart failure (principal)

== ENCOUNTER → 2024-10-24 | Outpatient (CLI) | payer MEDICARE, MEDICAID ==
[2024-10-24 15:14] LABS: BASO % 0.3 % (0.0-1.0); EOS # 0.2 10^3/uL (0.0-0.5); EOS % 2.2 % (0.0-3.0); HEMATOCRIT 50.8 % (42.0-52.0); HEMOGLOBIN 17.7 g/dl (13.5-17.5); LYMPH % 34.6 % (24.0-44.0); MEAN CORPUSCULAR HEMOGLOBIN 32.7 pg (27.0-33.0); MEAN CORPUSCULAR HGB CONC 34.8 g/dl (32.0-36.5); MEAN CORPUSCULAR VOLUME 93.9 fl (80.0-96.0); MONO # 0.6 10^3/uL (0.0-0.8); MONO % 6.9 % (2.0-8.0); NEUTROPHILS # 4.9 10^3/uL (1.5-8.5); NEUTROPHILS % 55.4 % (36.0-66.0); PLATELET COUNT, AUTOMATED 186 10^3/uL (150-450); RED BLOOD COUNT 5.41 10^6/uL (4.30-6.10); WHITE BLOOD COUNT 8.7 10^3/uL (4.0-10.0)
[2024-10-24 15:45] LABS: ALBUMIN 3.7 G/DL (3.2-5.2); ALKALINE PHOSPHATASE 79 U/L (40-129); ALT/SGPT 52 U/L (7.0-40); AST/SGOT 30 U/L (<34); BILIRUBIN,TOTAL 0.9 MG/DL (0.3-1.2); BLOOD UREA NITROGEN 26 MG/DL (9-23); CALCIUM LEVEL 9.4 MG/DL (8.5-10.1); CARBON DIOXIDE LEVEL 29 MMOL/L (20-31); CHLORIDE LEVEL 102 MMOL/L (98-107); CHOLESTEROL LEVEL 112 MG/DL (<200); CHOLESTEROL RISK RATIO 3.39 (<5); GLOMERULAR FILTRATION RATE > 60.0 (>56); GLUCOSE, FASTING 221 MG/DL (60-100); POTASSIUM SERUM 4.8 MMOL/L (3.5-5.1); SODIUM LEVEL 138 MMOL/L (136-145); TOTAL PROTEIN 7.5 G/DL (5.7-8.2); TRIGLYCERIDES LEVEL 215 MG/DL (<150)
== END ==
LOC: M PLALAB 08:07
PROVIDERS: ATTEND Student in an Organized Health Care Education/Training Program
DX: E11.65 Type 2 diabetes mellitus with hyperglycemia (principal); I50.20 Unspecified systolic (congestive) heart failure

== ENCOUNTER 2024-11-05 04:09 | Emergency (ER) | payer MEDICARE, MEDICAID ==
[~2024-11-05] VITALS: Ht 172.7 cm; Wt 74.8 kg
[2024-11-05 04:13] VITALS: BP 122/67; TEMP 97.9; O2SAT 97
[2024-11-05] MEDS ORDERED: SEMA1PEN2 SQ (04:20)
== END 2024-11-05 06:00 | disposition left against medical advice (07) ==
LOC: M ED 04:09
DX: Z53.21 Procedure and treatment not carried out due to patient leaving prior to being seen by health care provider (principal)

== ENCOUNTER 2024-11-06 16:45 | Emergency (ER) | payer MEDICARE, MEDICAID ==
[~2024-11-06] VITALS: Ht 172.7 cm; Wt 79.6 kg
[~2024-11-06 16:45] MED LIST changes: +SEMA1PEN2 SQ
[2024-11-06 16:48] VITALS: BP 136/80; TEMP 97.9; O2SAT 99
[2024-11-09] MEDS ORDERED: LANTINJ4 SC (11:39)
== END 2024-11-06 21:51 | disposition home or self-care (01) ==
LOC: M ED 16:45
DX: R22.42 Localized swelling, mass and lump, left lower limb (principal); E11.9 Type 2 diabetes mellitus without complications; I25.2 Old myocardial infarction; I10 Essential (primary) hypertension; E78.5 Hyperlipidemia, unspecified; Z79.1 Long term (current) use of non-steroidal anti-inflammatories (NSAID); Z79.4 Long term (current) use of insulin; Z79.899 Other long term (current) drug therapy
CPT/HCPCS: 93971; 99283; G0463

== ENCOUNTER 2024-11-08 16:28 | Emergency (ER) | payer MEDICARE, MEDICAID ==
[~2024-11-08] VITALS: Ht 172.7 cm; Wt 79.5 kg
[2024-11-08] MEDS ORDERED: ACET1TAB55 PO (16:53)
[2024-11-08] MEDS ORDERED: INSULIN LISPRO (NovoLOG) PER UNIT SC ONE (18:35)
[2024-11-08] MEDS: ACETAMINOPHEN 500 MG TAB PO ONE (18:48)
[2024-11-08] MEDS: KETOROLAC 30 MG/ML 1ML VIAL IM ONE (18:49)
[2024-11-08 20:31] VITALS: BP 134/84; TEMP 98.5; O2SAT 99
[2024-11-09] MEDS ORDERED: LANTINJ4 SC (11:39)
== END 2024-11-08 20:33 | disposition home or self-care (01) ==
LOC: M ED 16:28
DX: S32.038A Other fracture of third lumbar vertebra, initial encounter for closed fracture (principal); M54.50 Low back pain, unspecified; Y92.9 Unspecified place or not applicable; Y93.9 Activity, unspecified; Y99.9 Unspecified external cause status; Y04.2XXA Assault by strike against or bumped into by another person, initial encounter; I25.2 Old myocardial infarction; I25.119 Atherosclerotic heart disease of native coronary artery with unspecified angina pectoris; E11.9 Type 2 diabetes mellitus without complications; I10 Essential (primary) hypertension; Z79.1 Long term (current) use of non-steroidal anti-inflammatories (NSAID); Z79.84 Long term (current) use of oral hypoglycemic drugs; Z79.4 Long term (current) use of insulin; Z79.899 Other long term (current) drug therapy
CPT/HCPCS: 72100; 96372; 99283; J1885

== ENCOUNTER 2024-11-10 22:15 | Emergency (ER) | payer MEDICARE, MEDICAID ==
[~2024-11-10] VITALS: Ht 172.7 cm; Wt 81.0 kg
[~2024-11-10 22:15] MED LIST changes: +ACET1TAB55 PO
[2024-11-10 22:48] LABS: BASO % 0.2 % (0.0-1.0); EOS # 0.2 10^3/uL (0.0-0.5); EOS % 1.7 % (0.0-3.0); HEMATOCRIT 43.5 % (42.0-52.0); HEMOGLOBIN 15.1 g/dl (13.5-17.5); LYMPH % 33.4 % (24.0-44.0); MEAN CORPUSCULAR HEMOGLOBIN 32.3 pg (27.0-33.0); MEAN CORPUSCULAR HGB CONC 34.7 g/dl (32.0-36.5); MEAN CORPUSCULAR VOLUME 93.1 fl (80.0-96.0); MONO # 0.7 10^3/uL (0.0-0.8); MONO % 7.7 % (2.0-8.0); NEUTROPHILS % 56.8 % (36.0-66.0); PLATELET COUNT, AUTOMATED 196 10^3/uL (150-450); RED BLOOD COUNT 4.67 10^6/uL (4.30-6.10); WHITE BLOOD COUNT 8.9 10^3/uL (4.0-10.0)
[2024-11-10 22:59] LABS: INR 0.97; PROTHROMBIN TIME 13.2 SECONDS (12.5-14.5)
[2024-11-10 23:15] LABS: LIPASE 20 U/L (12-53)
[2024-11-10 23:18] LABS: ALBUMIN 3.1 G/DL (3.2-5.2); ALKALINE PHOSPHATASE 82 U/L (40-129); ALT/SGPT 53 U/L (7.0-40); AST/SGOT 51 U/L (<34); BILIRUBIN,DIRECT 0.3 MG/DL (<0.4); BILIRUBIN,TOTAL 0.7 MG/DL (0.3-1.2); BLOOD UREA NITROGEN 20 MG/DL (9-23); CARBON DIOXIDE LEVEL 28 MMOL/L (20-31); CHLORIDE LEVEL 106 MMOL/L (98-107); CK-MB VALUE MASS 2.8 NG/ML (<3.6); CPK CREATINE PHOSPHOKINASE 98 U/L (46-171); CREATININE FOR GFR 1.07 MG/DL (0.70-1.30); GLOMERULAR FILTRATION RATE > 60.0 (>56); GLUCOSE, FASTING 196 MG/DL (60-100); MB/CK RELATIVE INDEX 2.85 (< OR =4); POTASSIUM SERUM 3.7 MMOL/L (3.5-5.1); SODIUM LEVEL 142 MMOL/L (136-145); TOTAL PROTEIN 6.8 G/DL (5.7-8.2)
[2024-11-11] MEDS: SUCRALFATE SUSP 1GM/10ML UD PO ONE (00:15)
[2024-11-11] MEDS: ACETAMINOPHEN 325 MG TAB PO ONE (00:16)
[2024-11-11] MEDS: LIDOCAINE VISCOUS 2% SOLN 15ML UDC PO ONE (00:16)
[2024-11-11 01:14] VITALS: BP 118/72; TEMP 97.1; O2SAT 98
== END 2024-11-11 01:17 | disposition home or self-care (01) ==
LOC: M ED 22:15
DX: R07.9 Chest pain, unspecified (principal); R94.31 Abnormal electrocardiogram [ECG] [EKG]; I25.2 Old myocardial infarction; E11.9 Type 2 diabetes mellitus without complications; I10 Essential (primary) hypertension; E78.5 Hyperlipidemia, unspecified; F31.9 Bipolar disorder, unspecified; Z79.1 Long term (current) use of non-steroidal anti-inflammatories (NSAID); Z79.84 Long term (current) use of oral hypoglycemic drugs; Z79.4 Long term (current) use of insulin; Z79.899 Other long term (current) drug therapy

== ENCOUNTER → 2024-11-20 | Outpatient (CLI) | payer MEDICARE, MEDICAID ==
[~2024-11-20] MED LIST changes: +CEPH500C
== END ==
LOC: M SOG 08:43
PROVIDERS: ATTEND Physician Assistant
DX: S82.845A Nondisplaced bimalleolar fracture of left lower leg, initial encounter for closed fracture (principal); Y93.9 Activity, unspecified; Y92.9 Unspecified place or not applicable

== ENCOUNTER 2024-11-25 11:39 | Emergency (ER) | payer MEDICARE, MEDICAID ==
[~2024-11-25] VITALS: Ht 172.7 cm; Wt 79.0 kg
[~2024-11-25 11:39] MED LIST changes: -CEPH500C
[2024-11-25] MEDS ORDERED: CEPH500C (11:50)
[2024-11-25 12:37] LABS: KETONE, URINE AUTO RFX NEGATIVE (NEGATIVE); LEUKOCYTE ESTERASE UR AUTO RFX NEGATIVE (NEGATIVE); NITRITE, URINE AUTO RFX NEGATIVE (NEGATIVE); RBC, URINE AUTO RFX 1 /HPF (0-3); SQUAM EPITHELIAL CELL UR AURFX 0 /HPF (0-6)
[2024-11-25 15:35] VITALS: BP 122/76; TEMP 97.7; O2SAT 98
== END 2024-11-25 15:38 | disposition home or self-care (01) ==
LOC: M ED 11:39
DX: L70.0 Acne vulgaris (principal); E11.9 Type 2 diabetes mellitus without complications; Z79.1 Long term (current) use of non-steroidal anti-inflammatories (NSAID); Z79.2 Long term (current) use of antibiotics; Z79.4 Long term (current) use of insulin; Z79.84 Long term (current) use of oral hypoglycemic drugs; Z79.899 Other long term (current) drug therapy

== ENCOUNTER → 2024-12-04 | Outpatient (CLI) | payer MEDICARE, MEDICAID ==
[~2024-12-04] MED LIST changes: +CEPH500C
== END ==
LOC: M SOG 07:48
PROVIDERS: ATTEND Physician Assistant
DX: S32.038D Other fracture of third lumbar vertebra, subsequent encounter for fracture with routine healing (principal); M25.572 Pain in left ankle and joints of left foot; M47.817 Spondylosis without myelopathy or radiculopathy, lumbosacral region; S82.52XA Displaced fracture of medial malleolus of left tibia, initial encounter for closed fracture

== ENCOUNTER → 2024-12-09 | Outpatient (CLI) | payer MEDICARE, MEDICAID | LOC: M PAIN 09:15 | PROVIDERS: ATTEND Nurse Practitioner Family | DX: M79.18 Myalgia, other site (principal); G89.29 Other chronic pain; M54.2 Cervicalgia; E11.9 Type 2 diabetes mellitus without complications; Z79.82 Long term (current) use of aspirin; Z79.02 Long term (current) use of antithrombotics/antiplatelets; Z79.84 Long term (current) use of oral hypoglycemic drugs; Z79.899 Other long term (current) drug therapy ==

== ENCOUNTER 2024-12-29 14:15 | Emergency (ER) | payer MEDICARE, MEDICAID ==
[~2024-12-29] VITALS: Ht 172.7 cm; Wt 81.0 kg
[2024-12-29 14:20] VITALS: BP 173/80; TEMP 98.9; O2SAT 100
== END 2024-12-29 16:57 | disposition left against medical advice (07) ==
LOC: M ED 14:15
DX: Z53.21 Procedure and treatment not carried out due to patient leaving prior to being seen by health care provider (principal)

== ENCOUNTER 2025-01-03 01:02 | Emergency (ER) | payer MEDICARE, MEDICAID ==
[~2025-01-03] VITALS: Ht 172.7 cm; Wt 81.1 kg
[2025-01-03 01:08] VITALS: BP 135/87; TEMP 96.2; O2SAT 97
== END 2025-01-03 03:45 | disposition left against medical advice (07) ==
LOC: M ED 01:02
DX: Z53.21 Procedure and treatment not carried out due to patient leaving prior to being seen by health care provider (principal)

== ENCOUNTER 2025-01-06 23:55 | Emergency (ER) | payer MEDICARE, MEDICAID ==
[~2025-01-06] VITALS: Ht 172.7 cm; Wt 81.7 kg
[2025-01-06 23:58] VITALS: BP 168/108; TEMP 97.4; O2SAT 98
[2025-01-07 00:55] LABS: BASO % 0.4 % (0.0-1.0); EOS # 0.2 10^3/uL (0.0-0.5); EOS % 1.7 % (0.0-3.0); HEMATOCRIT 44.1 % (42.0-52.0); HEMOGLOBIN 15.4 g/dl (13.5-17.5); LYMPH # 4.1 10^3/uL (1.5-5.0); LYMPH % 40.8 % (24.0-44.0); MEAN CORPUSCULAR HEMOGLOBIN 32.3 pg (27.0-33.0); MEAN CORPUSCULAR HGB CONC 34.9 g/dl (32.0-36.5); MEAN CORPUSCULAR VOLUME 92.5 fl (80.0-96.0); MONO # 0.7 10^3/uL (0.0-0.8); NEUTROPHILS % 49.6 % (36.0-66.0); PLATELET COUNT, AUTOMATED 162 10^3/uL (150-450); RED BLOOD COUNT 4.77 10^6/uL (4.30-6.10)
[2025-01-07 01:17] LABS: CK-MB VALUE MASS 11.8 NG/ML (<3.6)
[2025-01-07 01:18] LABS: BLOOD UREA NITROGEN 23 MG/DL (9-23); CALCIUM LEVEL 8.5 MG/DL (8.5-10.1); CARBON DIOXIDE LEVEL 26 MMOL/L (20-31); CHLORIDE LEVEL 109 MMOL/L (98-107); CPK CREATINE PHOSPHOKINASE 303 U/L (46-171); CREATININE FOR GFR 1.16 MG/DL (0.70-1.30); GLOMERULAR FILTRATION RATE > 60.0 (>56); GLUCOSE, FASTING 261 MG/DL (60-100); MB/CK RELATIVE INDEX 3.89 (< OR =4); SODIUM LEVEL 143 MMOL/L (136-145)
[2025-01-07 02:14] LABS: CK-MB VALUE MASS 10.9 NG/ML (<3.6)
[2025-01-07 02:17] LABS: MB/CK RELATIVE INDEX 3.5 (< OR =4)
== END 2025-01-07 02:34 | disposition left against medical advice (07) ==
LOC: M ED 23:55
DX: Z53.21 Procedure and treatment not carried out due to patient leaving prior to being seen by health care provider (principal)

== ENCOUNTER 2025-01-15 00:32 | Emergency (ER) | payer MEDICARE, MEDICAID ==
[~2025-01-15] VITALS: Ht 167.6 cm; Wt 80.8 kg
[2025-01-15 00:50] VITALS: BP 143/85; TEMP 96.4; O2SAT 98
[2025-01-15 01:04] LABS: BASO % 0.3 % (0.0-1.0); EOS # 0.2 10^3/uL (0.0-0.5); EOS % 1.6 % (0.0-3.0); HEMATOCRIT 47.2 % (42.0-52.0); HEMOGLOBIN 16.7 g/dl (13.5-17.5); LYMPH # 4.5 10^3/uL (1.5-5.0); LYMPH % 38.3 % (24.0-44.0); MEAN CORPUSCULAR HEMOGLOBIN 32.5 pg (27.0-33.0); MEAN CORPUSCULAR HGB CONC 35.4 g/dl (32.0-36.5); MEAN CORPUSCULAR VOLUME 91.8 fl (80.0-96.0); MONO # 0.8 10^3/uL (0.0-0.8); NEUTROPHILS # 6.2 10^3/uL (1.5-8.5); NEUTROPHILS % 52.4 % (36.0-66.0); PLATELET COUNT, AUTOMATED 175 10^3/uL (150-450); RED BLOOD COUNT 5.14 10^6/uL (4.30-6.10); WHITE BLOOD COUNT 11.8 10^3/uL (4.0-10.0)
[2025-01-15 01:27] LABS: INR 1.01; PARTIAL THROMBOPLASTIN TIME 28.2 SECONDS (24.8-34.2); PROTHROMBIN TIME 13.6 SECONDS (12.5-14.5)
[2025-01-15 01:29] LABS: LIPASE 27 U/L (12-53)
[2025-01-15 01:31] LABS: ALBUMIN 3.7 G/DL (3.2-5.2); ALKALINE PHOSPHATASE 98 U/L (40-129); ALT/SGPT 30 U/L (7.0-40); AST/SGOT 15 U/L (<34); BILIRUBIN,DIRECT 0.2 MG/DL (<0.4); BILIRUBIN,TOTAL 0.6 MG/DL (0.3-1.2); BLOOD UREA NITROGEN 25 MG/DL (9-23); CARBON DIOXIDE LEVEL 27 MMOL/L (20-31); CHLORIDE LEVEL 104 MMOL/L (98-107); CK-MB VALUE MASS 4.3 NG/ML (<3.6); CREATININE FOR GFR 1.09 MG/DL (0.70-1.30); GLOMERULAR FILTRATION RATE > 60.0 (>56); GLUCOSE, FASTING 272 MG/DL (60-100); POTASSIUM SERUM 3.9 MMOL/L (3.5-5.1); SODIUM LEVEL 137 MMOL/L (136-145); TOTAL PROTEIN 7.1 G/DL (5.7-8.2)
[2025-01-15 01:33] LABS: CPK CREATINE PHOSPHOKINASE 117 U/L (46-171); MB/CK RELATIVE INDEX 3.67 (< OR =4)
== END 2025-01-15 04:52 | disposition left against medical advice (07) ==
LOC: M ED 00:32
DX: Z53.21 Procedure and treatment not carried out due to patient leaving prior to being seen by health care provider (principal)

== ENCOUNTER → 2025-01-15 | Outpatient (CLI) | payer MEDICARE, MEDICAID | LOC: M RAD 15:12 | PROVIDERS: ATTEND Student in an Organized Health Care Education/Training Program | DX: R10.32 Left lower quadrant pain (principal); K57.30 Diverticulosis of large intestine without perforation or abscess without bleeding; N32.89 Other specified disorders of bladder; S32.010D Wedge compression fracture of first lumbar vertebra, subsequent encounter for fracture with routine healing; S32.02 Fracture of second lumbar vertebra; S32.038D Other fracture of third lumbar vertebra, subsequent encounter for fracture with routine healing; S32.048D Other fracture of fourth lumbar vertebra, subsequent encounter for fracture with routine healing ==

== ENCOUNTER 2025-01-16 15:00 | Emergency (ER) | payer MEDICARE, MEDICAID ==
[~2025-01-16] VITALS: Ht 172.7 cm; Wt 80.8 kg
[2025-01-16 15:03] VITALS: BP 161/98; TEMP 96.6; O2SAT 98
== END 2025-01-16 18:43 | disposition left against medical advice (07) ==
LOC: M ED 15:00
DX: Z53.21 Procedure and treatment not carried out due to patient leaving prior to being seen by health care provider (principal)

== ENCOUNTER 2025-01-17 15:54 | Emergency (ER) | payer MEDICARE, MEDICAID ==
[~2025-01-17] VITALS: Ht 172.7 cm; Wt 81.7 kg
[2025-01-17 16:00] VITALS: BP 132/87; TEMP 96.1; O2SAT 98
[2025-01-17] MEDS: ACETAMINOPHEN 325 MG TAB PO ONE (18:54)
[2025-01-17 19:01] LABS: BASO % 0.3 % (0.0-1.0); EOS # 0.2 10^3/uL (0.0-0.5); EOS % 2.2 % (0.0-3.0); HEMATOCRIT 45.6 % (42.0-52.0); HEMOGLOBIN 16.3 g/dl (13.5-17.5); LYMPH # 3.6 10^3/uL (1.5-5.0); LYMPH % 40.5 % (24.0-44.0); MEAN CORPUSCULAR HEMOGLOBIN 32.5 pg (27.0-33.0); MEAN CORPUSCULAR HGB CONC 35.7 g/dl (32.0-36.5); MONO # 0.6 10^3/uL (0.0-0.8); MONO % 6.9 % (2.0-8.0); NEUTROPHILS # 4.4 10^3/uL (1.5-8.5); NEUTROPHILS % 49.7 % (36.0-66.0); PLATELET COUNT, AUTOMATED 184 10^3/uL (150-450); RED BLOOD COUNT 5.01 10^6/uL (4.30-6.10); WHITE BLOOD COUNT 8.9 10^3/uL (4.0-10.0)
[2025-01-17 19:39] LABS: BLOOD UREA NITROGEN 26 MG/DL (9-23); CALCIUM LEVEL 8.6 MG/DL (8.5-10.1); CARBON DIOXIDE LEVEL 22 MMOL/L (20-31); CHLORIDE LEVEL 106 MMOL/L (98-107); CK-MB VALUE MASS 4.7 NG/ML (<3.6); CPK CREATINE PHOSPHOKINASE 124 U/L (46-171); CREATININE FOR GFR 0.93 MG/DL (0.70-1.30); GLOMERULAR FILTRATION RATE > 60.0 (>56); GLUCOSE, FASTING 288 MG/DL (60-100); MB/CK RELATIVE INDEX 3.79 (< OR =4); POTASSIUM SERUM 4.6 MMOL/L (3.5-5.1); SODIUM LEVEL 140 MMOL/L (136-145)
[2025-01-17 20:28] LABS: CK-MB VALUE MASS 6.2 NG/ML (<3.6)
[2025-01-17 20:31] LABS: MB/CK RELATIVE INDEX 5.84 (< OR =4)
== END 2025-01-17 20:14 | disposition left against medical advice (07) ==
LOC: M ED 15:54
DX: M79.601 Pain in right arm (principal); R00.1 Bradycardia, unspecified; I44.0 Atrioventricular block, first degree; I25.2 Old myocardial infarction; I25.119 Atherosclerotic heart disease of native coronary artery with unspecified angina pectoris; E11.9 Type 2 diabetes mellitus without complications; I10 Essential (primary) hypertension; F43.10 Post-traumatic stress disorder, unspecified; F31.9 Bipolar disorder, unspecified; Z86.73 Personal history of transient ischemic attack (TIA), and cerebral infarction without residual deficits; Z79.1 Long term (current) use of non-steroidal anti-inflammatories (NSAID); Z79.4 Long term (current) use of insulin; Z79.84 Long term (current) use of oral hypoglycemic drugs; Z79.899 Other long term (current) drug therapy; Z79.810 Long term (current) use of selective estrogen receptor modulators (SERMs); Z53.9 Procedure and treatment not carried out, unspecified reason

== ENCOUNTER 2025-01-19 18:39 | Emergency (ER) | payer MEDICARE, MEDICAID ==
[~2025-01-19] VITALS: Ht 172.7 cm; Wt 81.6 kg
[2025-01-19 18:42] VITALS: TEMP 98.6
[2025-01-19 19:45] LABS: BASO % 0.3 % (0.0-1.0); EOS # 0.2 10^3/uL (0.0-0.5); EOS % 1.7 % (0.0-3.0); HEMATOCRIT 44.8 % (42.0-52.0); HEMOGLOBIN 15.9 g/dl (13.5-17.5); LYMPH # 4.1 10^3/uL (1.5-5.0); LYMPH % 39.1 % (24.0-44.0); MEAN CORPUSCULAR HEMOGLOBIN 32.5 pg (27.0-33.0); MEAN CORPUSCULAR HGB CONC 35.5 g/dl (32.0-36.5); MEAN CORPUSCULAR VOLUME 91.6 fl (80.0-96.0); MONO # 0.9 10^3/uL (0.0-0.8); MONO % 8.6 % (2.0-8.0); NEUTROPHILS # 5.2 10^3/uL (1.5-8.5); NEUTROPHILS % 49.9 % (36.0-66.0); PLATELET COUNT, AUTOMATED 180 10^3/uL (150-450); RED BLOOD COUNT 4.89 10^6/uL (4.30-6.10); WHITE BLOOD COUNT 10.4 10^3/uL (4.0-10.0)
[2025-01-19] MEDS ORDERED: KETOROLAC 30 MG/ML 1ML VIAL As Ordered ONE (19:57)
[2025-01-19] MEDS: KETOROLAC 30 MG/ML 1ML VIAL IV ONE (20:00)
[2025-01-19 20:06] LABS: CK-MB VALUE MASS 7.7 NG/ML (<3.6)
[2025-01-19 20:08] LABS: ALBUMIN 3.5 G/DL (3.2-5.2); BILIRUBIN,DIRECT 0.2 MG/DL (<0.4); BILIRUBIN,TOTAL 0.7 MG/DL (0.3-1.2); CALCIUM LEVEL 8.6 MG/DL (8.5-10.1); CREATININE FOR GFR 1.44 MG/DL (0.70-1.30); GLOMERULAR FILTRATION RATE 54.2 (>56); POTASSIUM SERUM 4.1 MMOL/L (3.5-5.1); TOTAL PROTEIN 6.8 G/DL (5.7-8.2)
[2025-01-19 20:10] LABS: THYROID STIMULATING HORMONE 1.471 uIU/ML (0.55-4.78)
[2025-01-19 20:12] LABS: MB/CK RELATIVE INDEX 3.88 (< OR =4)
[2025-01-19 20:55] LABS: MB/CK RELATIVE INDEX 4.16 (< OR =4)
[2025-01-19 21:00] VITALS: BP 117/77; O2SAT 96
== END 2025-01-19 21:29 | disposition home or self-care (01) ==
LOC: M ED 18:39
DX: R07.9 Chest pain, unspecified (principal); K21.9 Gastro-esophageal reflux disease without esophagitis; I10 Essential (primary) hypertension; E78.5 Hyperlipidemia, unspecified; I25.2 Old myocardial infarction; N40.0 Benign prostatic hyperplasia without lower urinary tract symptoms; F10.10 Alcohol abuse, uncomplicated; F17.200 Nicotine dependence, unspecified, uncomplicated; Z86.79 Personal history of other diseases of the circulatory system; Z79.82 Long term (current) use of aspirin; Z79.02 Long term (current) use of antithrombotics/antiplatelets; Z79.899 Other long term (current) drug therapy; Z79.4 Long term (current) use of insulin
CPT/HCPCS: 71045; 80048; 80076; 82550; 82553; 83690; 84443; 84484; 85025; 87486; 87581; 87633; 87798; 93005; 93041; 94760; 96374; 99284; J1885

== ENCOUNTER 2025-01-21 21:02 | Emergency (ER) | payer MEDICARE, MEDICAID ==
[~2025-01-21] VITALS: Ht 172.7 cm; Wt 80.2 kg
[2025-01-21 21:05] VITALS: BP 141/85; TEMP 97.4; O2SAT 97
== END 2025-01-22 01:58 | disposition left against medical advice (07) ==
LOC: M ED 21:02
DX: Z53.21 Procedure and treatment not carried out due to patient leaving prior to being seen by health care provider (principal)

== ENCOUNTER → 2025-01-22 | Outpatient (CLI) | payer MEDICARE, MEDICAID ==
[~2025-01-22] MED LIST changes: +NITR0.4S14
== END ==
LOC: M SOG 08:00
PROVIDERS: ATTEND Physician Assistant
DX: S32.038D Other fracture of third lumbar vertebra, subsequent encounter for fracture with routine healing (principal); M25.572 Pain in left ankle and joints of left foot

== ENCOUNTER 2025-01-28 17:46 | Emergency (ER) | payer MEDICARE, MEDICAID ==
[~2025-01-28] VITALS: Ht 172.7 cm; Wt 77.3 kg
[~2025-01-28 17:46] MED LIST changes: +GLIP-318; +GLIP-318 PO; +GLIP-320 PO; -GLIP10TA18 PO; -GLIP5TAB20; -GLIP5TAB20 PO; -NITR0.4S14
[2025-01-28] MEDS ORDERED: NITR0.4S14 (17:51)
[2025-01-28 18:27] LABS: BASO % 0.3 % (0.0-1.0); EOS # 0.2 10^3/uL (0.0-0.5); EOS % 1.9 % (0.0-3.0); HEMATOCRIT 45.7 % (42.0-52.0); HEMOGLOBIN 16.5 g/dl (13.5-17.5); LYMPH # 3.9 10^3/uL (1.5-5.0); LYMPH % 36.1 % (24.0-44.0); MEAN CORPUSCULAR HEMOGLOBIN 32.8 pg (27.0-33.0); MEAN CORPUSCULAR HGB CONC 36.1 g/dl (32.0-36.5); MEAN CORPUSCULAR VOLUME 90.9 fl (80.0-96.0); MONO # 0.8 10^3/uL (0.0-0.8); MONO % 7.2 % (2.0-8.0); NEUTROPHILS # 5.8 10^3/uL (1.5-8.5); NEUTROPHILS % 53.9 % (36.0-66.0); PLATELET COUNT, AUTOMATED 175 10^3/uL (150-450); RED BLOOD COUNT 5.03 10^6/uL (4.30-6.10); WHITE BLOOD COUNT 10.7 10^3/uL (4.0-10.0)
[2025-01-28] MEDS: ASPIRIN 81MG CHEW TABLET PO ONE (18:27)
[2025-01-28 18:49] LABS: CK-MB VALUE MASS 6.6 NG/ML (<3.6)
[2025-01-28 18:51] LABS: ALBUMIN 3.5 G/DL (3.2-5.2); BILIRUBIN,DIRECT 0.2 MG/DL (<0.4); BILIRUBIN,TOTAL 0.7 MG/DL (0.3-1.2); CREATININE FOR GFR 1.46 MG/DL (0.70-1.30); GLOMERULAR FILTRATION RATE 53.4 (>56); MB/CK RELATIVE INDEX 4.02 (< OR =4); POTASSIUM SERUM 4.1 MMOL/L (3.5-5.1); TOTAL PROTEIN 6.8 G/DL (5.7-8.2)
[2025-01-28] MEDS ORDERED: ISOVUE-370 76% 100ML VIAL As Ordered ONE (19:31)
[2025-01-28 19:54] LABS: CK-MB VALUE MASS 6.6 NG/ML (<3.6)
[2025-01-28 19:57] LABS: MB/CK RELATIVE INDEX 4.28 (< OR =4)
[2025-01-28 21:45] VITALS: BP 118/73; TEMP 97.8; O2SAT 97
== END 2025-01-28 21:50 | disposition home or self-care (01) ==
LOC: M ED 17:46
DX: R07.89 Other chest pain (principal); K21.9 Gastro-esophageal reflux disease without esophagitis; I25.2 Old myocardial infarction; I25.119 Atherosclerotic heart disease of native coronary artery with unspecified angina pectoris; E11.9 Type 2 diabetes mellitus without complications; I10 Essential (primary) hypertension; E78.5 Hyperlipidemia, unspecified; F17.210 Nicotine dependence, cigarettes, uncomplicated; Z79.1 Long term (current) use of non-steroidal anti-inflammatories (NSAID); Z79.4 Long term (current) use of insulin; Z79.899 Other long term (current) drug therapy
CPT/HCPCS: 36415; 71045; 71275; 80048; 80076; 82550; 82553; 83690; 84484; 85025; 93005; 99284; Q9967

== ENCOUNTER 2025-02-03 18:48 | Emergency (ER) | payer MEDICARE, MEDICAID ==
[~2025-02-03] VITALS: Ht 172.7 cm; Wt 81.8 kg
[~2025-02-03 18:48] MED LIST changes: +NITR0.4S14
[2025-02-03 19:44] LABS: BASO % 0.4 % (0.0-1.0); EOS # 0.2 10^3/uL (0.0-0.5); EOS % 1.7 % (0.0-3.0); HEMATOCRIT 44.7 % (42.0-52.0); HEMOGLOBIN 15.8 g/dl (13.5-17.5); LYMPH # 3.4 10^3/uL (1.5-5.0); LYMPH % 36.7 % (24.0-44.0); MEAN CORPUSCULAR HEMOGLOBIN 31.8 pg (27.0-33.0); MEAN CORPUSCULAR HGB CONC 35.3 g/dl (32.0-36.5); MEAN CORPUSCULAR VOLUME 89.9 fl (80.0-96.0); MONO # 0.7 10^3/uL (0.0-0.8); MONO % 7.6 % (2.0-8.0); NEUTROPHILS # 4.9 10^3/uL (1.5-8.5); NEUTROPHILS % 53.1 % (36.0-66.0); PLATELET COUNT, AUTOMATED 174 10^3/uL (150-450); RED BLOOD COUNT 4.97 10^6/uL (4.30-6.10); WHITE BLOOD COUNT 9.2 10^3/uL (4.0-10.0)
[2025-02-03 20:00] LABS: CALCIUM LEVEL 8.2 MG/DL (8.5-10.1); CK-MB VALUE MASS 8.8 NG/ML (<3.6); CREATININE FOR GFR 1.4 MG/DL (0.70-1.30); POTASSIUM SERUM 4.3 MMOL/L (3.5-5.1)
[2025-02-03 20:02] LABS: MB/CK RELATIVE INDEX 3.46 (< OR =4)
[2025-02-03] MEDS: ACETAMINOPHEN *IV* 1,000 MG in IV 1 EA IV ONE (20:53)
[2025-02-03] MEDS: NS 500 ML IV ONE (20:53)
[2025-02-03] MEDS: KETOROLAC 30 MG/ML 1ML VIAL IV ONE (20:53)
[2025-02-03 20:56] LABS: CK-MB VALUE MASS 9.1 NG/ML (<3.6)
[2025-02-03 21:03] LABS: MB/CK RELATIVE INDEX 3.68 (< OR =4)
[2025-02-03 21:56] VITALS: BP 109/66; TEMP 97; O2SAT 97
== END 2025-02-03 22:01 | disposition home or self-care (01) ==
LOC: M ED 18:48
DX: R07.89 Other chest pain (principal); R51.9 Headache, unspecified; I25.119 Atherosclerotic heart disease of native coronary artery with unspecified angina pectoris; I25.2 Old myocardial infarction; E11.9 Type 2 diabetes mellitus without complications; I10 Essential (primary) hypertension; E78.5 Hyperlipidemia, unspecified; N40.0 Benign prostatic hyperplasia without lower urinary tract symptoms; Z79.1 Long term (current) use of non-steroidal anti-inflammatories (NSAID); Z79.4 Long term (current) use of insulin; Z79.84 Long term (current) use of oral hypoglycemic drugs; Z79.899 Other long term (current) drug therapy
CPT/HCPCS: 70450; 71045; 80048; 82550; 82553; 84484; 85025; 93005; 93041; 94760; 96365; 96375; 99284; J0131; J1885

== ENCOUNTER → 2025-02-11 | Outpatient (CLI) | payer MEDICARE, MEDICAID ==
[~2025-02-11] MED LIST changes: +E-Z-GAS II EFFERVESCENT PACKET (SODIUM BICARB./CITRIC ACID/SIMETHICONE) As Ordered ONE; +E-Z-HD 98% w/w 340GM SUSP BTL As Ordered ONE; +E-Z-PAQUE 96% w/w SUSP 176GM BTL As Ordered ONE
== END ==
LOC: M RAD 08:48
PROVIDERS: ATTEND Student in an Organized Health Care Education/Training Program
DX: R13.19 Other dysphagia (principal)

== ENCOUNTER 2025-02-13 16:55 | Emergency (ER) | payer MEDICARE, MEDICAID ==
[~2025-02-13] VITALS: Ht 172.7 cm; Wt 81.4 kg
[~2025-02-13 16:55] MED LIST changes: -E-Z-GAS II EFFERVESCENT PACKET (SODIUM BICARB./CITRIC ACID/SIMETHICONE) As Ordered ONE; -E-Z-HD 98% w/w 340GM SUSP BTL As Ordered ONE; -E-Z-PAQUE 96% w/w SUSP 176GM BTL As Ordered ONE
[2025-02-13 17:06] VITALS: BP 109/71; TEMP 97.5; O2SAT 98
== END 2025-02-14 01:21 | disposition left against medical advice (07) ==
LOC: M ED 16:55
DX: Z53.21 Procedure and treatment not carried out due to patient leaving prior to being seen by health care provider (principal)

== ENCOUNTER 2025-02-15 07:26 | Emergency (ER) | payer MEDICARE, MEDICAID ==
[~2025-02-15] VITALS: Ht 172.7 cm; Wt 78.6 kg
[2025-02-15 08:13] LABS: VENOUS HCO3 28.1 MMOL/L (23.0-27.0); VENOUS O2 SATURATION 53.4 % (60.0-80.0); VENOUS PARTIAL PRESSURE CO2 53.7 mmHg (38.0-50.0); VENOUS PARTIAL PRESSURE O2 28.1 mmHg (30.0-50.0); VENOUS PH 7.337 UNITS (7.330-7.430); VENOUS STANDARD HCO3 24.1 MMOL/L; VENOUS TOTAL CO2 29.8 MMOL/L (24.0-28.0)
[2025-02-15] MEDS ORDERED: ISOVUE-370 76% 100ML VIAL As Ordered ONE (08:13)
[2025-02-15 08:18] LABS: BASO % 0.4 % (0.0-1.0); EOS # 0.1 10^3/uL (0.0-0.5); EOS % 1.2 % (0.0-3.0); HEMATOCRIT 46.4 % (42.0-52.0); HEMOGLOBIN 16.4 g/dl (13.5-17.5); LYMPH # 2.8 10^3/uL (1.5-5.0); LYMPH % 28.5 % (24.0-44.0); MEAN CORPUSCULAR HEMOGLOBIN 32.3 pg (27.0-33.0); MEAN CORPUSCULAR HGB CONC 35.3 g/dl (32.0-36.5); MEAN CORPUSCULAR VOLUME 91.3 fl (80.0-96.0); MONO # 0.8 10^3/uL (0.0-0.8); MONO % 7.7 % (2.0-8.0); NEUTROPHILS % 61.7 % (36.0-66.0); PLATELET COUNT, AUTOMATED 170 10^3/uL (150-450); RED BLOOD COUNT 5.08 10^6/uL (4.30-6.10); WHITE BLOOD COUNT 9.7 10^3/uL (4.0-10.0)
[2025-02-15] MEDS: NS (Normal Saline) 0.9% 1,000 ML IV ONE (08:30)
[2025-02-15 08:41] LABS: ETHYL ALCOHOL (ETHANOL) < 0.003 % (0.000-0.010)
[2025-02-15 08:43] LABS: BLOOD UREA NITROGEN 27 MG/DL (9-23); CALCIUM LEVEL 8.7 MG/DL (8.5-10.1); CARBON DIOXIDE LEVEL 30 MMOL/L (20-31); CHLORIDE LEVEL 102 MMOL/L (98-107); CREATININE FOR GFR 1.37 MG/DL (0.70-1.30); GLOMERULAR FILTRATION RATE 57.4 (>56); GLUCOSE, FASTING 213 MG/DL (60-100); POTASSIUM SERUM 4.6 MMOL/L (3.5-5.1); SODIUM LEVEL 138 MMOL/L (136-145)
[2025-02-15 09:12] LABS: INR 1.1; PARTIAL THROMBOPLASTIN TIME 30.7 SECONDS (24.8-34.2); PROTHROMBIN TIME 14.5 SECONDS (12.5-14.5)
[2025-02-15 14:45] VITALS: BP 130/82; TEMP 97.2; O2SAT 100
== END 2025-02-15 15:03 | disposition home or self-care (01) ==
LOC: M ED 07:26
DX: R20.2 Paresthesia of skin (principal); E11.9 Type 2 diabetes mellitus without complications; F43.10 Post-traumatic stress disorder, unspecified; F31.9 Bipolar disorder, unspecified; Z86.73 Personal history of transient ischemic attack (TIA), and cerebral infarction without residual deficits; Z79.1 Long term (current) use of non-steroidal anti-inflammatories (NSAID); Z79.4 Long term (current) use of insulin; Z79.84 Long term (current) use of oral hypoglycemic drugs; Z79.810 Long term (current) use of selective estrogen receptor modulators (SERMs); Z79.899 Other long term (current) drug therapy
CPT/HCPCS: 70450; 70496; 70498; 70551; 71045; 80048; 82077; 82803; 85025; 85610; 85730; 93005; 93041; 94760; 96360; 96361; 99285; Q9967

== ENCOUNTER 2025-02-18 19:58 | Emergency (ER) | payer MEDICARE, MEDICAID ==
[~2025-02-18] VITALS: Ht 172.7 cm; Wt 80.4 kg
[2025-02-18 20:04] VITALS: BP 108/75; TEMP 96.7; O2SAT 97
== END 2025-02-18 21:25 | disposition left against medical advice (07) ==
LOC: M ED 19:58
DX: Z53.21 Procedure and treatment not carried out due to patient leaving prior to being seen by health care provider (principal)

== ENCOUNTER 2025-02-21 19:08 | Emergency (ER) | payer MEDICARE, MEDICAID ==
[~2025-02-21] VITALS: Ht 172.7 cm; Wt 80.7 kg
[2025-02-21 19:53] LABS: HEMATOCRIT 47.9 % (42.0-52.0); HEMOGLOBIN 16.9 g/dl (13.5-17.5); MEAN CORPUSCULAR HEMOGLOBIN 31.9 pg (27.0-33.0); MEAN CORPUSCULAR HGB CONC 35.3 g/dl (32.0-36.5); MEAN CORPUSCULAR VOLUME 90.4 fl (80.0-96.0); PLATELET COUNT, AUTOMATED 178 10^3/uL (150-450); WHITE BLOOD COUNT 10.4 10^3/uL (4.0-10.0)
[2025-02-21 20:16] LABS: EOSINOPHILS 3 % (0-3); LYMPHOCYTES 36 % (16-44); MONOCYTES 4 % (0-5); NEUTROPHILS 57 % (28-66); PLATELET ESTIMATE NORMAL (NORMAL)
[2025-02-21 20:17] LABS: PLATELET CLUMPS SMALL AMT
[2025-02-21 20:18] LABS: BLOOD UREA NITROGEN 31 MG/DL (9-23); CALCIUM LEVEL 9.2 MG/DL (8.5-10.1); CARBON DIOXIDE LEVEL 27 MMOL/L (20-31); CHLORIDE LEVEL 103 MMOL/L (98-107); CK-MB VALUE MASS 5.9 NG/ML (<3.6); CREATININE FOR GFR 1.27 MG/DL (0.70-1.30); GLOMERULAR FILTRATION RATE > 60.0 (>56); GLUCOSE, FASTING 233 MG/DL (60-100); POTASSIUM SERUM 4.6 MMOL/L (3.5-5.1); SODIUM LEVEL 137 MMOL/L (136-145)
[2025-02-21 20:19] LABS: CPK CREATINE PHOSPHOKINASE 192 U/L (46-171); MB/CK RELATIVE INDEX 3.07 (< OR =4)
[2025-02-21] MEDS ORDERED: ISOVUE-370 76% 100ML VIAL As Ordered ONE (20:26)
[2025-02-21 21:05] LABS: CK-MB VALUE MASS 6.1 NG/ML (<3.6)
[2025-02-21 21:08] LABS: MB/CK RELATIVE INDEX 3.44 (< OR =4)
[2025-02-21] MEDS ORDERED: METO1TAB7 PO (21:27)
[2025-02-21 21:42] VITALS: BP 107/65; TEMP 97.7; O2SAT 98
== END 2025-02-21 21:49 | disposition home or self-care (01) ==
LOC: M ED 19:08
DX: R07.9 Chest pain, unspecified (principal); I25.2 Old myocardial infarction; E11.9 Type 2 diabetes mellitus without complications; K21.9 Gastro-esophageal reflux disease without esophagitis; I10 Essential (primary) hypertension; E78.5 Hyperlipidemia, unspecified; F31.9 Bipolar disorder, unspecified; F43.10 Post-traumatic stress disorder, unspecified; Z86.73 Personal history of transient ischemic attack (TIA), and cerebral infarction without residual deficits; Z79.1 Long term (current) use of non-steroidal anti-inflammatories (NSAID); Z79.4 Long term (current) use of insulin; Z79.84 Long term (current) use of oral hypoglycemic drugs; Z79.899 Other long term (current) drug therapy
CPT/HCPCS: 36415; 70498; 71045; 71275; 80048; 82550; 82553; 84484; 85025; 87486; 87581; 87633; 87798; 93005; 99284; Q9967

== ENCOUNTER → 2025-03-09 | Outpatient (REF) | payer MEDICARE, MEDICAID ==
[~2025-03-09] MED LIST changes: +METO1TAB7 PO
== END ==
LOC: M SFHCPLAZ 12:53
PROVIDERS: ATTEND Student in an Organized Health Care Education/Training Program
DX: D75.1 Secondary polycythemia (principal); I10 Essential (primary) hypertension; E11.65 Type 2 diabetes mellitus with hyperglycemia

== ENCOUNTER 2025-03-13 22:20 | Emergency (ER) | payer MEDICARE, MEDICAID ==
[~2025-03-13] VITALS: Ht 172.7 cm; Wt 81.7 kg
[~2025-03-13 22:20] MED LIST changes: -FLOM0.4C39 PO; +TAMS-18 PO
[2025-03-13 22:29] VITALS: BP 92/56; TEMP 97.9; O2SAT 95
== END 2025-03-14 06:00 | disposition left against medical advice (07) ==
LOC: M ED 22:20
DX: Z53.21 Procedure and treatment not carried out due to patient leaving prior to being seen by health care provider (principal)

== ENCOUNTER 2025-03-20 22:44 | Emergency (ER) | payer MEDICARE, MEDICAID ==
[~2025-03-20] VITALS: Ht 172.7 cm; Wt 79.9 kg
[~2025-03-20 22:44] MED LIST changes: +LIDO1ADH93 TOP; -LIDO5DIS41 TOP
[2025-03-20 23:27] LABS: KETONE, URINE AUTO RFX NEGATIVE (NEGATIVE); LEUKOCYTE ESTERASE UR AUTO RFX NEGATIVE (NEGATIVE); NITRITE, URINE AUTO RFX NEGATIVE (NEGATIVE); RBC, URINE AUTO RFX 0 /HPF (0-3); SQUAM EPITHELIAL CELL UR AURFX 0 /HPF (0-6); WBC, URINE AUTO RFX 0 /HPF (0-3)
[2025-03-21 00:01] LABS: ALBUMIN 3.8 G/DL (3.2-5.2); BILIRUBIN,DIRECT 0.3 MG/DL (<0.4); BILIRUBIN,TOTAL 0.8 MG/DL (0.3-1.2); CREATININE FOR GFR 1.37 MG/DL (0.70-1.30); GLOMERULAR FILTRATION RATE 60.9 (>56); POTASSIUM SERUM 4.3 MMOL/L (3.5-5.1)
[2025-03-21 00:42] LABS: BASO % 0.3 % (0.0-1.0); EOS # 0.2 10^3/uL (0.0-0.5); EOS % 1.7 % (0.0-3.0); HEMATOCRIT 47.4 % (42.0-52.0); HEMOGLOBIN 16.9 g/dl (13.5-17.5); LYMPH # 4.6 10^3/uL (1.5-5.0); LYMPH % 42.5 % (24.0-44.0); MEAN CORPUSCULAR HEMOGLOBIN 32.3 pg (27.0-33.0); MEAN CORPUSCULAR HGB CONC 35.7 g/dl (32.0-36.5); MEAN CORPUSCULAR VOLUME 90.5 fl (80.0-96.0); MONO # 0.8 10^3/uL (0.0-0.8); MONO % 7.6 % (2.0-8.0); NEUTROPHILS # 5.2 10^3/uL (1.5-8.5); NEUTROPHILS % 47.4 % (36.0-66.0); PLATELET COUNT, AUTOMATED 182 10^3/uL (150-450); RED BLOOD COUNT 5.24 10^6/uL (4.30-6.10); WHITE BLOOD COUNT 10.9 10^3/uL (4.0-10.0)
[2025-03-21 01:24] VITALS: BP 112/75; TEMP 98.3; O2SAT 97
== END 2025-03-21 03:24 | disposition left against medical advice (07) ==
LOC: M ED 22:44
DX: Z53.21 Procedure and treatment not carried out due to patient leaving prior to being seen by health care provider (principal)

== ENCOUNTER 2025-03-22 19:12 | Emergency (ER) | payer MEDICARE, MEDICAID ==
[~2025-03-22] VITALS: Ht 172.7 cm; Wt 77.8 kg
[~2025-03-22 19:12] MED LIST changes: -LIDO1ADH93 TOP; +LIDO5DIS41 TOP
[2025-03-22 19:15] VITALS: BP 138/93; TEMP 97.3; O2SAT 96
== END 2025-03-22 20:20 | disposition left against medical advice (07) ==
LOC: M ED 19:12
DX: Z53.21 Procedure and treatment not carried out due to patient leaving prior to being seen by health care provider (principal)

== ENCOUNTER 2025-03-25 02:21 | Emergency (ER) | payer MEDICARE, MEDICAID ==
[~2025-03-25] VITALS: Ht 172.7 cm; Wt 78.6 kg
[2025-03-25 02:22] VITALS: BP 141/88; TEMP 97.4; O2SAT 97
== END 2025-03-25 04:45 | disposition left against medical advice (07) ==
LOC: M ED 02:21
DX: Z53.21 Procedure and treatment not carried out due to patient leaving prior to being seen by health care provider (principal)

== ENCOUNTER 2025-04-05 04:12 | Emergency (ER) | payer MEDICARE, MEDICAID ==
[~2025-04-05] VITALS: Ht 172.7 cm; Wt 79.3 kg
[~2025-04-05 04:12] MED LIST changes: +LIDO1ADH93 TOP; -LIDO5DIS41 TOP
[2025-04-05 06:11] VITALS: BP 110/79; TEMP 97.6; O2SAT 99
== END 2025-04-05 07:25 | disposition left against medical advice (07) ==
LOC: M ED 04:12
DX: Z53.21 Procedure and treatment not carried out due to patient leaving prior to being seen by health care provider (principal)

== ENCOUNTER 2025-05-26 08:17 | Emergency (ER) | payer MEDICARE, MEDICAID ==
[~2025-05-26] VITALS: Ht 172.7 cm; Wt 76.2 kg
[2025-05-26 08:30] VITALS: BP 138/82; TEMP 98.2; O2SAT 98
== END 2025-05-26 09:40 | disposition left against medical advice (07) ==
LOC: M ED 08:17
DX: Z53.21 Procedure and treatment not carried out due to patient leaving prior to being seen by health care provider (principal)

== ENCOUNTER 2025-06-02 18:01 | Emergency (ER) | payer MEDICARE, MEDICAID ==
[~2025-06-02] VITALS: Ht 172.7 cm; Wt 74.1 kg
[2025-06-02 18:07] VITALS: BP 125/76; TEMP 97.3; O2SAT 97
== END 2025-06-02 19:45 | disposition left against medical advice (07) ==
LOC: M ED 18:01
DX: Z53.21 Procedure and treatment not carried out due to patient leaving prior to being seen by health care provider (principal)

== ENCOUNTER 2025-06-04 18:03 | Emergency (ER) | payer MEDICARE, MEDICAID ==
[~2025-06-04] VITALS: Ht 172.7 cm; Wt 74.4 kg
[2025-06-04 18:22] VITALS: BP 121/70; TEMP 98.2; O2SAT 97
[2025-06-04 18:28] LABS: BASO # 0.0 10^3/uL (0.0-0.2); BASO % 0.1 % (0.0-1.0); EOS # 0.2 10^3/uL (0.0-0.5); EOS % 2.0 % (0.0-3.0); LYMPH # 3.5 10^3/uL (1.5-5.0); LYMPH % 36.4 % (24.0-44.0); MONO # 0.6 10^3/uL (0.0-0.8); MONO % 6.7 % (2.0-8.0); NEUTROPHILS # 5.2 10^3/uL (1.5-8.5); NEUTROPHILS % 54.5 % (36.0-66.0); PLATELET COUNT, AUTOMATED 157 10^3/uL (150-450)
[2025-06-04 18:40] LABS: INR 1.02
[2025-06-04 18:57] LABS: CK-MB VALUE MASS 6.8 NG/ML (<3.6)
[2025-06-04 19:00] LABS: CPK CREATINE PHOSPHOKINASE 153.0 U/L (46-171); MB/CK RELATIVE INDEX 4.44 (< OR =4)
[2025-06-04 19:07] LABS: ALT/SGPT 21.0 U/L (7.0-40); AST/SGOT 16.0 U/L (<34); CALCIUM LEVEL 9.3 MG/DL (8.5-10.1); CARBON DIOXIDE LEVEL 23.0 MMOL/L (20-31); CHLORIDE LEVEL 98.0 MMOL/L (98-107); CREATININE FOR GFR 1.42 MG/DL (0.70-1.30); GLOMERULAR FILTRATION RATE 58.4 (>56); POTASSIUM SERUM 4.3 MMOL/L (3.5-5.1); SODIUM LEVEL 136.0 MMOL/L (136-145)
== END 2025-06-04 20:20 | disposition left against medical advice (07) ==
LOC: M ED 18:03
DX: Z53.21 Procedure and treatment not carried out due to patient leaving prior to being seen by health care provider (principal)

== ENCOUNTER 2025-06-05 09:37 | Emergency (ER) | payer MEDICARE, MEDICAID ==
[~2025-06-05] VITALS: Ht 172.7 cm; Wt 74.0 kg
[2025-06-05 09:41] VITALS: BP 131/84; TEMP 98.1; O2SAT 99
== END 2025-06-05 09:48 | disposition left against medical advice (07) ==
LOC: M ED 09:37
DX: Z53.21 Procedure and treatment not carried out due to patient leaving prior to being seen by health care provider (principal)

== ENCOUNTER 2025-06-07 14:34 | Emergency (ER) | payer MEDICARE, MEDICAID ==
[~2025-06-07] VITALS: Ht 172.7 cm; Wt 74.5 kg
[2025-06-07 17:31] VITALS: BP 138/86; TEMP 97.4; O2SAT 98
[2025-06-07] MEDS ORDERED: PRED20TA PO (19:19)
[2025-06-07] MEDS ORDERED: METH-1164 PO (19:19)
[2025-06-07] MEDS ORDERED: predniSONE 20 MG TAB PO ONE (19:20)
== END 2025-06-07 19:30 | disposition home or self-care (01) ==
LOC: M ED 14:34
DX: M54.42 Lumbago with sciatica, left side (principal); M19.072 Primary osteoarthritis, left ankle and foot; Z79.1 Long term (current) use of non-steroidal anti-inflammatories (NSAID); Z79.84 Long term (current) use of oral hypoglycemic drugs; Z79.4 Long term (current) use of insulin; Z79.52 Long term (current) use of systemic steroids; Z79.899 Other long term (current) drug therapy; Z79.810 Long term (current) use of selective estrogen receptor modulators (SERMs)

== ENCOUNTER 2025-06-23 18:47 | Emergency (ER) | payer MEDICARE, MEDICAID ==
[~2025-06-23] VITALS: Ht 172.7 cm; Wt 73.6 kg
[~2025-06-23 18:47] MED LIST changes: +METH-1164 PO; +PRED20TA PO; +PROZ20CA12 PO
[2025-06-23 18:51] VITALS: TEMP 98.9
[2025-06-23 19:48] LABS: KETONE, URINE AUTO RFX NEGATIVE (NEGATIVE); LEUKOCYTE ESTERASE UR AUTO RFX NEGATIVE (NEGATIVE); MUCUS, URINE RFX SMALL (NEGATIVE); NITRITE, URINE AUTO RFX NEGATIVE (NEGATIVE); RBC, URINE AUTO RFX 0 /HPF (0-3); SQUAM EPITHELIAL CELL UR AURFX 0 /HPF (0-6); WBC, URINE AUTO RFX 0 /HPF (0-3)
[2025-06-23 19:51] LABS: BASO # 0.0 10^3/uL (0.0-0.2); BASO % 0.4 % (0.0-1.0); EOS # 0.2 10^3/uL (0.0-0.5); EOS % 2.0 % (0.0-3.0); LYMPH # 3.5 10^3/uL (1.5-5.0); LYMPH % 42.1 % (24.0-44.0); MONO # 0.7 10^3/uL (0.0-0.8); MONO % 8.4 % (2.0-8.0); NEUTROPHILS # 3.9 10^3/uL (1.5-8.5); NEUTROPHILS % 46.7 % (36.0-66.0); PLATELET COUNT, AUTOMATED 171 10^3/uL (150-450)
[2025-06-23] MEDS: NS (Normal Saline) 0.9% 1,000 ML IV ONE (19:55)
[2025-06-23 20:17] LABS: ALT/SGPT 24.0 U/L (7.0-40); AST/SGOT 20.0 U/L (<34)
[2025-06-23 20:17] LABS: ESTIMATED AVERAGE GLUCOSE 289.0 MG/DL (60-110)
[2025-06-23] MEDS ORDERED: ISOVUE-370 76% 100 ML VIAL As Ordered ONE (20:33)
[2025-06-23 21:00] LABS: VENOUS BASE EXCESS -3.1 (-2.0-2.0); VENOUS HCO3 24.4 MMOL/L (23.0-27.0); VENOUS O2 SATURATION 78.1 % (60.0-80.0); VENOUS PARTIAL PRESSURE CO2 52.8 mmHg (38.0-50.0); VENOUS PARTIAL PRESSURE O2 44.9 mmHg (30.0-50.0); VENOUS PH 7.282 UNITS (7.330-7.430); VENOUS STANDARD HCO3 21.5 MMOL/L; VENOUS TOTAL CO2 26.0 MMOL/L (24.0-28.0)
[2025-06-23 21:50] LABS: ACETONE/KETONE 0.09 MMOL/L (0.02-0.27)
[2025-06-23 21:58] LABS: CALCIUM LEVEL 7.8 MG/DL (8.5-10.1); CARBON DIOXIDE LEVEL 27.0 MMOL/L (20-31); CHLORIDE LEVEL 101.0 MMOL/L (98-107); CREATININE FOR GFR 1.12 MG/DL (0.70-1.30); GLOMERULAR FILTRATION RATE 77.6 (>56); MAGNESIUM LEVEL 1.9 MG/DL (1.8-2.4); POTASSIUM SERUM 3.9 MMOL/L (3.5-5.1); SODIUM LEVEL 136.0 MMOL/L (136-145)
[2025-06-23 22:00] LABS: OSMOLALITY SERUM 315.0 MOSM/KG (275-295)
[2025-06-23 22:30] VITALS: BP 132/84
[2025-06-23] MEDS ORDERED: LANTINJ4 SC ×2 (22:37)
[2025-06-23 22:45] VITALS: O2SAT 98
== END 2025-06-23 22:53 | disposition home or self-care (01) ==
LOC: M ED 18:47
DX: E11.65 Type 2 diabetes mellitus with hyperglycemia (principal); R10.9 Unspecified abdominal pain; Z88.1 Allergy status to other antibiotic agents; Z79.1 Long term (current) use of non-steroidal anti-inflammatories (NSAID); Z79.4 Long term (current) use of insulin; Z79.84 Long term (current) use of oral hypoglycemic drugs; Z79.899 Other long term (current) drug therapy; Z79.52 Long term (current) use of systemic steroids
CPT/HCPCS: 74177; 80047; 80048; 80076; 81001; 82010; 82803; 83036; 83690; 83735; 83930; 85025; 93005; 96360; 96361; 99285; Q9967

== ENCOUNTER 2025-06-25 16:24 | Emergency (ER) | payer MEDICARE, MEDICAID ==
[~2025-06-25] VITALS: Ht 172.7 cm; Wt 72.8 kg
[2025-06-25 17:49] VITALS: BP 124/78; TEMP 97.2; O2SAT 98
[2025-06-25] MEDS: ACETAMINOPHEN 325 MG TAB PO ONE (17:52)
== END 2025-06-25 18:00 | disposition home or self-care (01) ==
LOC: M ED 16:24
DX: M54.2 Cervicalgia (principal); Z79.1 Long term (current) use of non-steroidal anti-inflammatories (NSAID); Z79.4 Long term (current) use of insulin; Z79.84 Long term (current) use of oral hypoglycemic drugs; Z79.52 Long term (current) use of systemic steroids; Z79.899 Other long term (current) drug therapy; Z79.810 Long term (current) use of selective estrogen receptor modulators (SERMs)

== ENCOUNTER 2025-06-26 08:37 | Emergency (ER) | payer MEDICARE, MEDICAID ==
[~2025-06-26] VITALS: Ht 172.7 cm; Wt 73.3 kg
[2025-06-26 10:05] LABS: CALCIUM LEVEL 9.1 MG/DL (8.5-10.1); CARBON DIOXIDE LEVEL 21 MMOL/L (20-31); CHLORIDE LEVEL 98 MMOL/L (98-107); CK-MB VALUE MASS 3.8 NG/ML (<3.6); CPK CREATINE PHOSPHOKINASE 68 U/L (46-171); CREATININE FOR GFR 0.91 MG/DL (0.70-1.30); GLOMERULAR FILTRATION RATE > 90.0 (>56); MB/CK RELATIVE INDEX 5.58 (< OR =4); POTASSIUM SERUM 4.4 MMOL/L (3.5-5.1); SODIUM LEVEL 131 MMOL/L (136-145)
[2025-06-26] MEDS: HumuLIN R (REGULAR) INSULIN (NovoLIN R) **100 U/ML** PER UNIT IV ONE (10:13)
[2025-06-26] MEDS: NS (Normal Saline) 0.9% 1,000 ML IV ONE (10:13)
[2025-06-26 13:16] VITALS: BP 125/71; TEMP 98.1; O2SAT 98
== END 2025-06-26 13:20 | disposition home or self-care (01) ==
LOC: M ED 08:37
DX: R07.9 Chest pain, unspecified (principal); E11.65 Type 2 diabetes mellitus with hyperglycemia; I25.119 Atherosclerotic heart disease of native coronary artery with unspecified angina pectoris; E78.5 Hyperlipidemia, unspecified; Z86.73 Personal history of transient ischemic attack (TIA), and cerebral infarction without residual deficits; Z88.1 Allergy status to other antibiotic agents; Z79.1 Long term (current) use of non-steroidal anti-inflammatories (NSAID); Z79.2 Long term (current) use of antibiotics; Z79.4 Long term (current) use of insulin; Z79.84 Long term (current) use of oral hypoglycemic drugs; Z79.899 Other long term (current) drug therapy; Z79.810 Long term (current) use of selective estrogen receptor modulators (SERMs); Z79.52 Long term (current) use of systemic steroids
CPT/HCPCS: 80048; 82550; 82553; 84484; 93005; 93041; 94760; 96361; 96374; 99285; J1815

== ENCOUNTER 2025-06-27 01:12 | Emergency (ER) | payer MEDICARE, MEDICAID ==
[~2025-06-27] VITALS: Ht 172.7 cm; Wt 71.7 kg
[2025-06-27 01:16] VITALS: BP 119/74; TEMP 97.6
[2025-06-27 01:44] LABS: BASO # 0.0 10^3/uL (0.0-0.2); BASO % 0.2 % (0.0-1.0); EOS # 0.1 10^3/uL (0.0-0.5); EOS % 0.7 % (0.0-3.0); LYMPH # 3.6 10^3/uL (1.5-5.0); LYMPH % 32.2 % (24.0-44.0); MONO # 0.9 10^3/uL (0.0-0.8); MONO % 8.1 % (2.0-8.0); NEUTROPHILS # 6.5 10^3/uL (1.5-8.5); NEUTROPHILS % 58.5 % (36.0-66.0); PLATELET COUNT, AUTOMATED 146 10^3/uL (150-450)
[2025-06-27 02:25] VITALS: O2SAT 98
[2025-06-27 02:31] LABS: ALT/SGPT 23.0 U/L (7.0-40); AST/SGOT 17.0 U/L (<34); CALCIUM LEVEL 8.5 MG/DL (8.5-10.1); CARBON DIOXIDE LEVEL 22.0 MMOL/L (20-31); CHLORIDE LEVEL 103.0 MMOL/L (98-107); CK-MB VALUE MASS 4.4 NG/ML (<3.6); CPK CREATINE PHOSPHOKINASE 130.0 U/L (46-171); CREATININE FOR GFR 1.11 MG/DL (0.70-1.30); GLOMERULAR FILTRATION RATE 78.4 (>56); MB/CK RELATIVE INDEX 3.38 (< OR =4); POTASSIUM SERUM 3.8 MMOL/L (3.5-5.1); SODIUM LEVEL 136.0 MMOL/L (136-145)
[2025-06-28] MEDS ORDERED: CIPR250T3 PO (15:51)
[2025-06-28] MEDS ORDERED: ONDA-282 PO (15:53)
== END 2025-06-27 02:23 | disposition left against medical advice (07) ==
LOC: M ED 01:12
DX: Z53.21 Procedure and treatment not carried out due to patient leaving prior to being seen by health care provider (principal)

== ENCOUNTER 2025-06-28 10:50 | Emergency (ER) | payer MEDICARE, MEDICAID ==
[~2025-06-28] VITALS: Ht 170.2 cm; Wt 70.1 kg
[2025-06-28 11:45] LABS: BASO # 0.0 10^3/uL (0.0-0.2); BASO % 0.2 % (0.0-1.0); EOS # 0.2 10^3/uL (0.0-0.5); EOS % 1.3 % (0.0-3.0); LYMPH # 3.2 10^3/uL (1.5-5.0); LYMPH % 26.4 % (24.0-44.0); MONO # 0.8 10^3/uL (0.0-0.8); MONO % 6.4 % (2.0-8.0); NEUTROPHILS # 7.8 10^3/uL (1.5-8.5); NEUTROPHILS % 65.3 % (36.0-66.0); PLATELET COUNT, AUTOMATED 173 10^3/uL (150-450)
[2025-06-28 12:19] LABS: ALT/SGPT 23.0 U/L (7.0-40); AST/SGOT 21.0 U/L (<34); CALCIUM LEVEL 9.2 MG/DL (8.5-10.1); CARBON DIOXIDE LEVEL 23.0 MMOL/L (20-31); CHLORIDE LEVEL 104.0 MMOL/L (98-107); CREATININE FOR GFR 1.05 MG/DL (0.70-1.30); GLOMERULAR FILTRATION RATE 83.8 (>56); POTASSIUM SERUM 4.4 MMOL/L (3.5-5.1); SODIUM LEVEL 139.0 MMOL/L (136-145)
[2025-06-28] MEDS ORDERED: ISOVUE-370 76% 100 ML VIAL As Ordered ONE (14:27)
[2025-06-28] MEDS: ONDANSETRON 4MG 2ML VIAL IV ONE (14:38)
[2025-06-28] MEDS: KETOROLAC 30 MG/ML 1 ML VIAL IV ONE (14:39)
[2025-06-28 14:57] LABS: KETONE, URINE AUTO RFX 1+ mg/dL (NEGATIVE); LEUKOCYTE ESTERASE UR AUTO RFX NEGATIVE (NEGATIVE); NITRITE, URINE AUTO RFX NEGATIVE (NEGATIVE); RBC, URINE AUTO RFX 0 /HPF (0-3); SQUAM EPITHELIAL CELL UR AURFX 0 /HPF (0-6); WBC, URINE AUTO RFX 2 /HPF (0-3)
[2025-06-28] MEDS ORDERED: CIPR250T3 PO (15:51)
[2025-06-28] MEDS ORDERED: ONDA-282 PO (15:53)
[2025-06-28 16:00] VITALS: BP 106/53; TEMP 98.2; O2SAT 96
== END 2025-06-28 16:04 | disposition home or self-care (01) ==
LOC: M ED 10:50
DX: N10 Acute pyelonephritis (principal); E11.9 Type 2 diabetes mellitus without complications; Z88.1 Allergy status to other antibiotic agents; Z79.1 Long term (current) use of non-steroidal anti-inflammatories (NSAID); Z79.4 Long term (current) use of insulin; Z79.84 Long term (current) use of oral hypoglycemic drugs; Z79.899 Other long term (current) drug therapy; Z79.52 Long term (current) use of systemic steroids; Z79.810 Long term (current) use of selective estrogen receptor modulators (SERMs)
CPT/HCPCS: 74177; 80048; 80076; 81001; 83690; 85025; 96374; 96375; 99285; J1885; J2405; Q9967

== ENCOUNTER 2025-07-01 22:47 | Emergency (ER) | payer MEDICARE, MEDICAID ==
[~2025-07-01] VITALS: Ht 172.7 cm; Wt 77.3 kg
[~2025-07-01 22:47] MED LIST changes: +CIPR250T3 PO
[2025-07-01 22:51] VITALS: BP 126/80; TEMP 97.8; O2SAT 97
== END 2025-07-02 01:10 | disposition left against medical advice (07) ==
LOC: M ED 22:47
DX: Z53.21 Procedure and treatment not carried out due to patient leaving prior to being seen by health care provider (principal)

== ENCOUNTER 2025-07-02 18:55 | Emergency (ER) | payer MEDICARE, MEDICAID ==
[~2025-07-02] VITALS: Ht 172.7 cm; Wt 70.9 kg
[2025-07-02 19:03] VITALS: BP 115/76; TEMP 98; O2SAT 98
== END 2025-07-02 20:59 | disposition left against medical advice (07) ==
LOC: M ED 18:55
DX: Z53.21 Procedure and treatment not carried out due to patient leaving prior to being seen by health care provider (principal)

== ENCOUNTER 2025-07-07 20:58 | Emergency (ER) | payer MEDICARE, MEDICAID ==
[~2025-07-07] VITALS: Ht 172.7 cm; Wt 73.5 kg
[~2025-07-07 20:58] MED LIST changes: +ACYC200C10 PO; -ACYC200C8 PO; -ASPI-655 PO; +ASPI-737 PO; -IBUP-1022 PO; +IBUP600T42 PO
[2025-07-07 21:13] VITALS: TEMP 98.2
[2025-07-07 21:51] LABS: BASO # 0.0 10^3/uL (0.0-0.2); BASO % 0.4 % (0.0-1.0); EOS # 0.1 10^3/uL (0.0-0.5); EOS % 1.8 % (0.0-3.0); LYMPH # 3.0 10^3/uL (1.5-5.0); LYMPH % 38.8 % (24.0-44.0); MONO # 0.6 10^3/uL (0.0-0.8); MONO % 7.4 % (2.0-8.0); NEUTROPHILS # 3.9 10^3/uL (1.5-8.5); NEUTROPHILS % 51.1 % (36.0-66.0); PLATELET COUNT, AUTOMATED 178 10^3/uL (150-450)
[2025-07-07 22:06] LABS: INR 0.98
[2025-07-07 22:12] LABS: CK-MB VALUE MASS 5.1 NG/ML (<3.6)
[2025-07-07 22:16] LABS: FREE T4 1.22 NG/DL (0.89-1.76)
[2025-07-07 22:19] LABS: ALT/SGPT 21 U/L (7.0-40); AST/SGOT 16 U/L (<34); CALCIUM LEVEL 9.1 MG/DL (8.5-10.1); CARBON DIOXIDE LEVEL 25 MMOL/L (20-31); CHLORIDE LEVEL 100 MMOL/L (98-107); CPK CREATINE PHOSPHOKINASE 77 U/L (46-171); CREATININE FOR GFR 0.94 MG/DL (0.70-1.30); GLOMERULAR FILTRATION RATE > 90.0 (>56); MB/CK RELATIVE INDEX 6.62 (< OR =4); POTASSIUM SERUM 4.5 MMOL/L (3.5-5.1); SODIUM LEVEL 134 MMOL/L (136-145)
[2025-07-07] MEDS: HumuLIN R (REGULAR) INSULIN (NovoLIN R) **100 U/ML** PER UNIT SC ONE (22:55)
[2025-07-07 23:07] LABS: KETONE, URINE AUTO RFX NEGATIVE (NEGATIVE); LEUKOCYTE ESTERASE UR AUTO RFX NEGATIVE (NEGATIVE); NITRITE, URINE AUTO RFX NEGATIVE (NEGATIVE); RBC, URINE AUTO RFX 0 /HPF (0-3); SQUAM EPITHELIAL CELL UR AURFX 0 /HPF (0-6); WBC, URINE AUTO RFX 0 /HPF (0-3)
[2025-07-07 23:19] LABS: CK-MB VALUE MASS 4.6 NG/ML (<3.6)
[2025-07-07 23:20] LABS: CPK CREATINE PHOSPHOKINASE 72.0 U/L (46-171); MB/CK RELATIVE INDEX 6.38 (< OR =4)
[2025-07-07 23:39] LABS: ACETONE/KETONE 0.12 MMOL/L (0.02-0.27)
[2025-07-08] MEDS: NS (Normal Saline) 0.9% 1,000 ML IV ONE ×2 (01:18→04:27)
[2025-07-08 05:30] VITALS: BP 150/86; O2SAT 99
[2025-07-08] MEDS ORDERED: VENTAER INH (22:50)
== END 2025-07-08 06:08 | disposition home or self-care (01) ==
LOC: M ED 20:58
DX: R07.9 Chest pain, unspecified (principal); E11.65 Type 2 diabetes mellitus with hyperglycemia; I10 Essential (primary) hypertension; K21.9 Gastro-esophageal reflux disease without esophagitis; F41.9 Anxiety disorder, unspecified; F31.9 Bipolar disorder, unspecified; F43.10 Post-traumatic stress disorder, unspecified; I25.2 Old myocardial infarction; Z86.79 Personal history of other diseases of the circulatory system; Z86.73 Personal history of transient ischemic attack (TIA), and cerebral infarction without residual deficits; Z88.1 Allergy status to other antibiotic agents; Z79.52 Long term (current) use of systemic steroids; Z79.82 Long term (current) use of aspirin; Z79.02 Long term (current) use of antithrombotics/antiplatelets; Z79.4 Long term (current) use of insulin; Z79.899 Other long term (current) drug therapy
CPT/HCPCS: 71045; 80048; 80076; 81001; 82010; 82550; 82553; 83690; 83880; 84439; 84443; 84484; 85025; 85610; 85730; 93005; 93041; 93971; 94760; 96360; 96361; 96372; 99285; J1815

== ENCOUNTER 2025-07-08 20:03 | Emergency (ER) | payer MEDICARE, MEDICAID ==
[~2025-07-08] VITALS: Ht 172.7 cm; Wt 77.3 kg
[~2025-07-08 20:03] MED LIST changes: -ACYC200C10 PO; +ACYC200C8 PO; +ASPI-655 PO; -ASPI-737 PO; +IBUP-1022 PO; -IBUP600T42 PO
[2025-07-08 20:58] LABS: VENOUS BASE EXCESS -4.4 (-2.0-2.0); VENOUS HCO3 22.1 MMOL/L (23.0-27.0); VENOUS O2 SATURATION 92.5 % (60.0-80.0); VENOUS PARTIAL PRESSURE CO2 45.6 mmHg (38.0-50.0); VENOUS PARTIAL PRESSURE O2 67.4 mmHg (30.0-50.0); VENOUS PH 7.303 UNITS (7.330-7.430); VENOUS STANDARD HCO3 20.7 MMOL/L; VENOUS TOTAL CO2 23.5 MMOL/L (24.0-28.0)
[2025-07-08] MEDS: NS (Normal Saline) 0.9% 1,000 ML IV ONE (21:02)
[2025-07-08 21:09] LABS: APPEARANCE, URINE CLEAR (CLEAR); BACTERIA, URINE AUTO NEGATIVE (NEGATIVE); BILIRUBIN, URINE AUTO NEGATIVE (NEGATIVE); BLOOD, URINE BLOOD NEGATIVE (NEGATIVE); GLUCOSE, URINE (UA) AUTO 3+ mg/dL (NEGATIVE); KETONE, URINE AUTO NEGATIVE (NEGATIVE); LEUKOCYTE ESTERASE, URINE AUTO NEGATIVE (NEGATIVE); NITRITE, URINE AUTO NEGATIVE (NEGATIVE); PROTEIN, URINE AUTO NEGATIVE (NEGATIVE); RBC, URINE AUTO 0 /HPF (0-3); SPECIFIC GRAVITY URINE AUTO 1.026 (1.002-1.035); SQUAMOUS EPITHELIAL CELL UR AU 0 /HPF (0-6); UROBILINOGEN, URINE AUTO 0.2 mg/dL (0.0-2.0); WBC, URINE AUTO 0 /HPF (0-3)
[2025-07-08 21:10] LABS: BASO # 0.0 10^3/uL (0.0-0.2); BASO % 0.3 % (0.0-1.0); EOS # 0.1 10^3/uL (0.0-0.5); EOS % 1.5 % (0.0-3.0); LYMPH # 3.5 10^3/uL (1.5-5.0); LYMPH % 38.3 % (24.0-44.0); MONO # 0.6 10^3/uL (0.0-0.8); MONO % 6.6 % (2.0-8.0); NEUTROPHILS # 4.9 10^3/uL (1.5-8.5); NEUTROPHILS % 52.8 % (36.0-66.0); PLATELET COUNT, AUTOMATED 165 10^3/uL (150-450)
[2025-07-08] MEDS: HumuLIN R (REGULAR) INSULIN (NovoLIN R) **100 U/ML** PER UNIT IV ONE (21:22)
[2025-07-08] MEDS: BENZONATATE 100 MG CAPSULE PO ONE (22:05)
[2025-07-08 22:18] LABS: VENOUS BASE EXCESS -1.5 (-2.0-2.0); VENOUS HCO3 25.7 MMOL/L (23.0-27.0); VENOUS O2 SATURATION 81.8 % (60.0-80.0); VENOUS PARTIAL PRESSURE CO2 52.4 mmHg (38.0-50.0); VENOUS PARTIAL PRESSURE O2 47.2 mmHg (30.0-50.0); VENOUS PH 7.309 UNITS (7.330-7.430); VENOUS STANDARD HCO3 22.8 MMOL/L; VENOUS TOTAL CO2 27.3 MMOL/L (24.0-28.0)
[2025-07-08] MEDS: ALBUTEROL 90 MCG/ACT 8 GM HFA INHALER INH ONE (22:25)
[2025-07-08 22:35] VITALS: BP 127/81; TEMP 96.8; O2SAT 98
[2025-07-08] MEDS ORDERED: VENTAER INH (22:50)
== END 2025-07-08 22:57 | disposition home or self-care (01) ==
LOC: M ED 20:03
DX: R05.9 Cough, unspecified (principal); R06.00 Dyspnea, unspecified; E11.9 Type 2 diabetes mellitus without complications; Z88.1 Allergy status to other antibiotic agents; Z79.1 Long term (current) use of non-steroidal anti-inflammatories (NSAID); Z79.51 Long term (current) use of inhaled steroids; Z79.4 Long term (current) use of insulin; Z79.899 Other long term (current) drug therapy; Z79.84 Long term (current) use of oral hypoglycemic drugs
CPT/HCPCS: 71046; 80047; 81001; 82803; 83930; 85025; 87486; 87581; 87633; 87798; 93005; 94640; 96361; 96374; 99284; J1815

== ENCOUNTER 2025-07-13 04:22 | Emergency (ER) | payer MEDICARE, MEDICAID ==
[~2025-07-13] VITALS: Ht 172.7 cm; Wt 72.0 kg
[~2025-07-13 04:22] MED LIST changes: +ACYC200C10 PO; -ACYC200C8 PO; -ASPI-655 PO; +ASPI-737 PO; -IBUP-1022 PO; +IBUP600T42 PO; +VENTAER INH
[2025-07-13 04:25] VITALS: BP 134/85; TEMP 97.8; O2SAT 99
[2025-07-13 04:55] LABS: KETONE, URINE AUTO RFX NEGATIVE (NEGATIVE); LEUKOCYTE ESTERASE UR AUTO RFX NEGATIVE (NEGATIVE); NITRITE, URINE AUTO RFX NEGATIVE (NEGATIVE); RBC, URINE AUTO RFX 0 /HPF (0-3); SQUAM EPITHELIAL CELL UR AURFX 0 /HPF (0-6); WBC, URINE AUTO RFX 0 /HPF (0-3)
== END 2025-07-13 06:41 | disposition left against medical advice (07) ==
LOC: M ED 04:22
DX: Z53.21 Procedure and treatment not carried out due to patient leaving prior to being seen by health care provider (principal)

== ENCOUNTER 2025-07-15 19:49 | Emergency (ER) | payer MEDICARE, MEDICAID ==
[~2025-07-15] VITALS: Ht 172.7 cm; Wt 73.1 kg
[2025-07-15 20:53] LABS: KETONE, URINE AUTO RFX NEGATIVE (NEGATIVE); LEUKOCYTE ESTERASE UR AUTO RFX NEGATIVE (NEGATIVE); NITRITE, URINE AUTO RFX NEGATIVE (NEGATIVE); RBC, URINE AUTO RFX 0 /HPF (0-3); SQUAM EPITHELIAL CELL UR AURFX 0 /HPF (0-6); WBC, URINE AUTO RFX 0 /HPF (0-3)
[2025-07-15] MEDS: LIDOCAINE 2% 5 ML JELLY UROJET TOP ONE (21:55)
[2025-07-15 22:44] VITALS: BP 130/84; TEMP 97.3; O2SAT 96
== END 2025-07-15 22:45 | disposition home or self-care (01) ==
LOC: M ED 19:49
DX: R33.9 Retention of urine, unspecified (principal); E11.9 Type 2 diabetes mellitus without complications; I25.2 Old myocardial infarction; M54.50 Low back pain, unspecified; F41.9 Anxiety disorder, unspecified; F32.A Depression, unspecified; K21.9 Gastro-esophageal reflux disease without esophagitis; Z86.79 Personal history of other diseases of the circulatory system; Z86.73 Personal history of transient ischemic attack (TIA), and cerebral infarction without residual deficits; Z88.1 Allergy status to other antibiotic agents; Z79.52 Long term (current) use of systemic steroids; Z79.82 Long term (current) use of aspirin; Z79.02 Long term (current) use of antithrombotics/antiplatelets; Z79.1 Long term (current) use of non-steroidal anti-inflammatories (NSAID); Z79.4 Long term (current) use of insulin; Z79.899 Other long term (current) drug therapy

== ENCOUNTER → 2025-07-17 | Outpatient (CLI) | payer MEDICARE, MEDICAID | LOC: M SOG 07:23 | PROVIDERS: ATTEND Orthopaedic Surgery | DX: M25.572 Pain in left ankle and joints of left foot (principal); M79.89 Other specified soft tissue disorders ==

== ENCOUNTER 2025-07-23 14:08 | Emergency (ER) | payer MEDICARE, MEDICAID ==
[~2025-07-23] VITALS: Ht 172.7 cm; Wt 72.3 kg
[2025-07-23 16:08] VITALS: BP 113/78; TEMP 98.1; O2SAT 98
== END 2025-07-23 16:10 | disposition home or self-care (01) ==
LOC: M ED 14:08
DX: M25.562 Pain in left knee (principal); Z88.1 Allergy status to other antibiotic agents; Z79.1 Long term (current) use of non-steroidal anti-inflammatories (NSAID); Z79.51 Long term (current) use of inhaled steroids; Z79.2 Long term (current) use of antibiotics; Z79.4 Long term (current) use of insulin; Z79.84 Long term (current) use of oral hypoglycemic drugs; Z79.899 Other long term (current) drug therapy; Z79.810 Long term (current) use of selective estrogen receptor modulators (SERMs); Z79.52 Long term (current) use of systemic steroids

== ENCOUNTER 2025-08-04 09:18 | Emergency (ER) | payer MEDICARE, MEDICAID ==
[~2025-08-04] VITALS: Ht 172.7 cm; Wt 70.2 kg
[2025-08-04 09:30] VITALS: BP 123/83; TEMP 97.9; O2SAT 99
== END 2025-08-04 10:48 | disposition home or self-care (01) ==
LOC: M ED 09:18
DX: Z60.8 Other problems related to social environment (principal); Z88.1 Allergy status to other antibiotic agents; Z79.1 Long term (current) use of non-steroidal anti-inflammatories (NSAID); Z79.84 Long term (current) use of oral hypoglycemic drugs; Z79.4 Long term (current) use of insulin; Z79.899 Other long term (current) drug therapy; Z53.9 Procedure and treatment not carried out, unspecified reason

== ENCOUNTER 2025-08-10 16:05 | Emergency (ER) | payer MEDICARE, MEDICAID ==
[~2025-08-10] VITALS: Ht 172.7 cm; Wt 70.1 kg
[2025-08-10 18:06] LABS: BASO # 0.0 10^3/uL (0.0-0.2); BASO % 0.1 % (0.0-1.0); EOS # 0.1 10^3/uL (0.0-0.5); EOS % 1.3 % (0.0-3.0); LYMPH # 3.9 10^3/uL (1.5-5.0); LYMPH % 36.3 % (24.0-44.0); MONO # 0.9 10^3/uL (0.0-0.8); MONO % 8.7 % (2.0-8.0); NEUTROPHILS # 5.7 10^3/uL (1.5-8.5); NEUTROPHILS % 53.2 % (36.0-66.0); PLATELET COUNT, AUTOMATED 191 10^3/uL (150-450)
[2025-08-10 18:22] LABS: INR 1.02
[2025-08-10 18:43] LABS: ALT/SGPT 21.0 U/L (7.0-40); AST/SGOT 19.0 U/L (<34); CALCIUM LEVEL 9.3 MG/DL (8.5-10.1); CARBON DIOXIDE LEVEL 25.0 MMOL/L (20-31); CHLORIDE LEVEL 102.0 MMOL/L (98-107); CREATININE FOR GFR 1.13 MG/DL (0.70-1.30); GLOMERULAR FILTRATION RATE 76.8 (>56); POTASSIUM SERUM 3.9 MMOL/L (3.5-5.1); SODIUM LEVEL 136.0 MMOL/L (136-145)
[2025-08-10] MEDS ORDERED: ISOVUE-370 76% 100 ML VIAL As Ordered ONE (19:10)
[2025-08-10] MEDS: NS (Normal Saline) 0.9% 1,000 ML IV ONE (23:04)
[2025-08-10 23:15] VITALS: BP 92/55; TEMP 97.3; O2SAT 96
[2025-08-10] MEDS ORDERED: NS (Normal Saline) 0.9% 1,000 ML IV ONE (23:45)
[2025-08-11 02:57] LABS: MAGNESIUM LEVEL 2.3 MG/DL (1.8-2.4)
== END 2025-08-11 00:08 | disposition home or self-care (01) ==
LOC: M ED 16:05
DX: E86.0 Dehydration (principal); S12.300A Unspecified displaced fracture of fourth cervical vertebra, initial encounter for closed fracture; S32.038 Other fracture of third lumbar vertebra; Y92.9 Unspecified place or not applicable; Y93.9 Activity, unspecified; Y99.9 Unspecified external cause status; I25.119 Atherosclerotic heart disease of native coronary artery with unspecified angina pectoris; I25.2 Old myocardial infarction; E11.9 Type 2 diabetes mellitus without complications; I10 Essential (primary) hypertension; N40.0 Benign prostatic hyperplasia without lower urinary tract symptoms; F17.210 Nicotine dependence, cigarettes, uncomplicated; Z79.1 Long term (current) use of non-steroidal anti-inflammatories (NSAID); Z79.4 Long term (current) use of insulin; Z79.84 Long term (current) use of oral hypoglycemic drugs; Z79.899 Other long term (current) drug therapy; Z79.810 Long term (current) use of selective estrogen receptor modulators (SERMs)
CPT/HCPCS: 36415; 70450; 70498; 71260; 72125; 72128; 72131; 74177; 80053; 83735; 85025; 85610; 85730; 93005; 99285; Q9967

== ENCOUNTER 2025-08-15 16:32 | Emergency (ER) | payer MEDICARE, MEDICAID ==
[2025-08-15 16:40] VITALS: BP 103/67
[2025-08-15 16:47] VITALS: TEMP 96.8; O2SAT 95
[2025-08-15 17:16] LABS: BASO # 0.0 10^3/uL (0.0-0.2); BASO % 0.3 % (0.0-1.0); EOS # 0.1 10^3/uL (0.0-0.5); EOS % 1.5 % (0.0-3.0); LYMPH # 3.3 10^3/uL (1.5-5.0); LYMPH % 35.7 % (24.0-44.0); MONO # 0.7 10^3/uL (0.0-0.8); MONO % 7.3 % (2.0-8.0); NEUTROPHILS # 5.0 10^3/uL (1.5-8.5); NEUTROPHILS % 54.8 % (36.0-66.0); PLATELET COUNT, AUTOMATED 180 10^3/uL (150-450)
[2025-08-15 17:45] LABS: CK-MB VALUE MASS 5.7 NG/ML (<3.6)
[2025-08-15 17:46] LABS: CALCIUM LEVEL 8.4 MG/DL (8.5-10.1); CARBON DIOXIDE LEVEL 22 MMOL/L (20-31); CHLORIDE LEVEL 103 MMOL/L (98-107); CREATININE FOR GFR 0.97 MG/DL (0.70-1.30); GLOMERULAR FILTRATION RATE > 90.0 (>56); POTASSIUM SERUM 4.4 MMOL/L (3.5-5.1); SODIUM LEVEL 136 MMOL/L (136-145)
[2025-08-15 18:06] LABS: CPK CREATINE PHOSPHOKINASE 132 U/L (46-171); MB/CK RELATIVE INDEX 4.31 (< OR =4)
== END 2025-08-15 18:04 | disposition left against medical advice (07) ==
LOC: EDBD 16:32 → M ED 16:32
DX: Z53.21 Procedure and treatment not carried out due to patient leaving prior to being seen by health care provider (principal)

== ENCOUNTER 2025-09-24 16:26 | Emergency (ER) | payer MEDICARE, MEDICAID ==
[~2025-09-24] VITALS: Ht 172.7 cm; Wt 77.3 kg
[2025-09-24] MEDS ORDERED: VALS1TAB66 (16:49)
[2025-09-24] MEDS ORDERED: LANTINJ4 SC (16:49)
[2025-09-24] MEDS ORDERED: FARX1TAB5 (16:49)
[2025-09-24 17:44] VITALS: BP 138/93; TEMP 97.6; O2SAT 98
== END 2025-09-24 17:45 | disposition home or self-care (01) ==
LOC: M ED 16:26
DX: H93.12 Tinnitus, left ear (principal); H61.22 Impacted cerumen, left ear; E11.9 Type 2 diabetes mellitus without complications; I10 Essential (primary) hypertension; F17.210 Nicotine dependence, cigarettes, uncomplicated; Z88.1 Allergy status to other antibiotic agents; Z79.1 Long term (current) use of non-steroidal anti-inflammatories (NSAID); Z79.4 Long term (current) use of insulin; Z79.899 Other long term (current) drug therapy

== ENCOUNTER 2025-10-13 21:10 | Emergency (ER) | payer MEDICARE, MEDICAID ==
[~2025-10-13] VITALS: Ht 170.2 cm; Wt 74.1 kg
[~2025-10-13 21:10] MED LIST changes: -BACTDSTA; -BACTDSTA PO; +FARX1TAB5; -PROZ20CA12 PO; +PROZ20CA25 PO; +SULF-7 PO; +SULF-8; +SULF-8 PO; -SULF1TAB23 PO; +VALS1TAB66
[2025-10-13 22:21] VITALS: BP 118/77; TEMP 97.2; O2SAT 98
== END 2025-10-13 22:26 | disposition home or self-care (01) ==
LOC: M ED 21:10
DX: G50.0 Trigeminal neuralgia (principal); E78.5 Hyperlipidemia, unspecified; E11.9 Type 2 diabetes mellitus without complications; Z86.73 Personal history of transient ischemic attack (TIA), and cerebral infarction without residual deficits; Z88.1 Allergy status to other antibiotic agents; Z79.1 Long term (current) use of non-steroidal anti-inflammatories (NSAID); Z79.4 Long term (current) use of insulin; Z79.899 Other long term (current) drug therapy; Z79.810 Long term (current) use of selective estrogen receptor modulators (SERMs)